=== PATIENT | female | born 1985 | race Caucasian/White ===

== ENCOUNTER 2022-10-12 06:54 | Emergency (ER) | payer BC, SELFPAY ==
[2022-10-12] VITALS (10 sets, daily range): BP systolic 96–152; BP diastolic 59–97; PULSE 75–113; RESP 14–29; TEMP 36.5; O2SAT 99–100; BMI 21.8
--- NOTE | 2022-10-12 07:11 | ECG_ITS ---
The [facility] Test Date: 2022-10-12 Pat Name: JENNIFER SPARKS Department: Room: - Gender: Female [employer]er: : 1985 Requested By: [id number] Order Number: [id number] Reading MD: ALLISON ALMAZAN Measurements Intervals [place] Rate: 84 P: 34 WV: 150 QRS: 26 QRSD: 76 T: 20 QT: 368 QTc: 409 Interpretive Statements 1100 Sinus rhythm 9110 normal ECG No previous ECG available for comparison Electronically Signed On 10-13-2022 7:09:54 EDT by ALLISON ALMAZAN
--- NOTE | 2022-10-12 07:14 | ED.GENADUL1 ---
HPI - General Adult General Chief complaint: Weakness Stated complaint: DEHYDRATION, WEAKNESS Time Seen by Provider: 10/12/22 07:03 Source: patient Source information: patient Mode of arrival: walk-in Limitations: no limitations History of Present Illness HPI narrative: 37-year-old female presented to the emergency department for nausea and generally not feeling well. She recently did a five day detoxification from alcohol. She finished that two days ago and now she is been shaky and nauseous. She feels dehydrated. She is not complaining of any pain or fever or shortness of breath. She's been feeling this way for the last day. Related Data Previous Rx's Medication Instructions Recorded lorazepam 1 mg tablet (Ativan) 1 mg PO Q8H PRN alcohol withdrawal 10/12/22 #14 tabs Allergies Allergy/AdvReac Type Severity Reaction Status Date / Time lisinopril Allergy Intermediate Verified 10/12/22 07:03 Review of Systems ROS Narrative A ten point review of systems is negative except as noted above. PFSH PFSH Social History Smoking status: Former smoker Exam Narrative Exam Narrative: Nurses note and vital signs reviewed and patient is not hypoxic. General: The patient appears well and in no apparent distress. Patient is resting comfortably on cart. Skin: Warm, dry, no pallor noted. There is no rash noted. Head: Normocephalic, atraumatic Eye: Normal conjunctiva, no drainage Ears, Nose, Mouth, and Throat: oral mucosa is moist. Nares patent. Cardiovascular: Regular Rate and Rhythm Respiratory: Patient is in no distress, no accessory muscle use, lungs are clear to auscultation, no wheezing, rales or rhonchi Back: non-tender GI: soft and nontender Musculoskeletal: The patient has no evidence of calf tenderness, no pitting edema, symmetrical pulses noted bilaterally Neurological: A&O x4, normal speech Psychiatric: Cooperative Constitutional Vital Signs - 24 hr 10/12/22 06:58 10/12/22 07:30 10/12/22 07:33 Temperature 97.7 F Pulse Rate 93 H 90 Pulse Rate [Monitor] 113 H Respiratory Rate 18 15 19 Blood Pressure 133/86 H Blood Pressure [Right Arm] 152/97 H Pulse Oximetry 100 99 Oxygen Delivery Method Room Air 10/12/22 07:33 10/12/22 07:33 10/12/22 08:00 Temperature Pulse Rate 84 79 75 Pulse Rate [Monitor] Respiratory Rate 16 20 21 Blood Pressure 133/86 H 98/59 L Blood Pressure [Right Arm] Pulse Oximetry 100 100 100 Oxygen Delivery Method 10/12/22 08:30 10/12/22 08:30 10/12/22 09:00 Temperature Pulse Rate 85 82 93 H Pulse Rate [Monitor] Respiratory Rate 23 29 H 16 Blood Pressure 109/66 109/66 Blood Pressure [Right Arm] Pulse Oximetry 100 99 100 Oxygen Delivery Method 10/12/22 09:06 10/12/22 09:06 Temperature Pulse Rate 85 82 Pulse Rate [Monitor] Respiratory Rate 25 H 14 Blood Pressure 96/78 Blood Pressure [Right Arm] Pulse Oximetry 100 100 Oxygen Delivery Method Course Vital Signs Vital signs: Vital Signs Temperature 97.7 F 10/12/22 06:58 Pulse Rate 113 H 10/12/22 06:58 Respiratory Rate 18 10/12/22 06:58 Blood Pressure 152/97 H 10/12/22 06:58 Pulse Oximetry 100 10/12/22 06:58 Oxygen Delivery Method Room Air 10/12/22 06:58 Temperature 97.7 F 10/12/22 06:58 Pulse Rate 82 10/12/22 09:06 Respiratory Rate 14 10/12/22 09:06 Blood Pressure 96/78 10/12/22 09:06 Pulse Oximetry 100 10/12/22 09:06 Oxygen Delivery Method Room Air 10/12/22 06:58 Medical Decision Making MDM Narrative Medical decision making narrative: the patient is feeling much better now after being given IV fluids and IV Ativan. Differential Diagnosis Differential Diagnosis: alcohol withdrawal, dehydration, electrolyte imbalance, anxiety Lab Data Lab results reviewed: Yes I reviewed the patient's lab results Labs: Lab Results 10/12/22 Range/Units 07:08 WBC 10.2 (4.0-11.0) 10^3/uL RBC 4.03 L (4.20-5.40) 10^6/uL Hgb 13.5 (12.0-16.0) g/dL Hct 39.9 (36.0-48.0) % MCV 99.0 (81.0-99.0) fL MCH 33.5 (26.7-34.0) pg MCHC 33.8 (29.9-35.2) g/dL RDW 11.4 (11.0-15.0) % Plt Count 179 (150-450) 10^3/uL MPV 11.1 (9.5-13.5) fL Neut % (Auto) 67.2 (43.0-75.0) % Lymph % (Auto) 14.9 L (20.5-60.0) % [place] % (Auto) 15.9 H (1.7-12.0) % Eos % (Auto) 0.6 L (0.9-7.0) % Baso % (Auto) 1.0 (0.2-2.0) % Neut # (Auto) 6.9 H (1.4-6.5) 10^3/uL Lymph # (Auto) 1.5 (1.2-3.8) 10^3/uL [place] # (Auto) 1.6 H (0.3-0.8) 10^3/uL Eos # (Auto) 0.1 (0.0-0.7) 10^3/uL Baso # (Auto) 0.1 (0.0-0.1) 10^3/uL Abs Immat Gran (auto) 0.04 H (0.00-0.03) 10^3/uL Imm/Tot Granulo (auto) 0.4 (0.0-0.5) % Sodium 130 L (136-145) mmol/L Potassium 3.8 (3.5-5.1) mmol/L Chloride 95 L (98-107) mmol/L Carbon Dioxide 23.5 (21.0-32.0) mmol/L Anion Gap 15.3 BUN 8.0 (7.0-18.0) mg/dL Creatinine 1.72 H (0.55-1.02) mg/dL Est GFR ( Amer) 40 L (>=60) Est GFR (Non-Af Amer) 33 L (>=60) BUN/Creatinine Ratio 4.7 Glucose 116 H (74-106) mg/dL Calcium 8.8 (8.5-10.1) mg/dL Urine HCG, Qual Negative (NEGATIVE) Discharge Plan Discharge Chief Complaint: Weakness Clinical Impression: Alcohol withdrawal Patient Disposition: Home, Self-Care Time of Disposition Decision: 09:55 Condition: Good Mode of Transportation: Private Vehicle Prescriptions / Home Meds: New lorazepam [Ativan] 1 mg tablet 1 mg PO Q8H PRN (Reason: alcohol withdrawal) Qty: 14 0RF Instructions: Alcohol Withdrawal (ED) Stand Alone Forms: Portal Instructions Referrals: Physician,Non-Staff, MD [Primary Care Provider] - 1 week
[2022-10-12 07:30] LABS: Basophils Absolute Auto 0.1 10^3/uL (0.0-0.1); Eosinophils Absolute Auto 0.1 10^3/uL (0.0-0.7); Eosinophils Percent Auto 0.6 % (0.9-7.0); Hematocrit 39.9 % (36.0-48.0); Hemoglobin 13.5 g/dL (12.0-16.0); Immature Granulocytes Abs Auto 0.04 10^3/uL (0.00-0.03); Immature Granulocytes Pct Auto 0.4 % (0.0-0.5); Lymphocytes Absolute Auto 1.5 10^3/uL (1.2-3.8); Lymphocytes Percent Auto 14.9 % (20.5-60.0); Mean Corpuscular HGB Conc 33.8 g/dL (29.9-35.2); Mean Corpuscular Hemoglobin 33.5 pg (26.7-34.0); Mean Platelet Volume 11.1 fL (9.5-13.5); Monocytes Absolute Auto 1.6 10^3/uL (0.3-0.8); Monocytes Percent Auto 15.9 % (1.7-12.0); Neutrophils Absolute Auto 6.9 10^3/uL (1.4-6.5); Neutrophils Percent Auto 67.2 % (43.0-75.0); Platelet Count 179 10^3/uL (150-450); Red Blood Count 4.03 10^6/uL (4.20-5.40); Red Cell Distribution Width 11.4 % (11.0-15.0); White Blood Count 10.2 10^3/uL (4.0-11.0)
[2022-10-12] MEDS: 0.9 % SODIUM CHLORIDE 1,000 ML 1000 ML IV ×2 (07:43→08:42)
[2022-10-12] MEDS: LORAZEPAM 2 MG/ML 1 ML VIAL 0.5 MG IV (07:44)
[2022-10-12] MEDS: ONDANSETRON PF 4 MG/2 ML VIAL IV (07:44)
[2022-10-12 07:45] LABS: Anion Gap 15.3; BUN Creatinine Ratio 4.7; Calcium 8.8 mg/dL (8.5-10.1); Carbon Dioxide 23.5 mmol/L (21.0-32.0); Chloride 95 mmol/L (98-107); Estimated GFR (African America 40 (>=60); Estimated GFR (Non-African Ame 33 (>=60); Glucose 116 mg/dL (74-106); HCG Qualitative NEGATIVE (NEGATIVE); Potassium 3.8 mmol/L (3.5-5.1); Sodium 130 mmol/L (136-145)
--- NOTE | 2022-10-12 08:33 | CT_ITS ---
The [address] [address] Patient Name: JENNIFER SPARKS MRN: [facility]:[id number] date: 1985 Sex: F Assigned Patient Location: ER Current Patient Location: ER Accession/Order Number: [id number] Exam Date: 10/12/2022 08:45 Report Date: 10/12/2022 09:15 At the request of: LYNETTE MORA Procedure: CT abdomen pelvis w con EXAM: CT abdomen pelvis w con HISTORY: pain COMPARISON: 11/10/2021 TECHNIQUE: Axial CT images were obtained of the abdomen and pelvis with intravenous contrast. Multiplanar reconstructions were performed. ABDOMEN/PELVIS FINDINGS: Lower Chest: Bibasilar atelectasis or scarring is present. Liver: There is a region of relative hypoenhancement surrounding the gallbladder fossa, possibly representing focal fatty infiltration. There is also a punctate hypodense lesion in the left hepatic lobe which is indeterminate. Biliary/Gallbladder: A small gallstone is present in the gallbladder lumen. Pancreas: Unremarkable. Spleen: The spleen is mildly enlarged measuring 13.1 cm. Adrenal Glands: Unremarkable. Kidneys: Unremarkable. Gastrointestinal/Peritoneum: No acute abnormality. The appendix is unremarkable. No free air or free fluid. Vascular: Unremarkable. Lymph Nodes: No enlarged lymph nodes by CT size criteria. Pelvic Organs: An IUD is present. Bladder: Unremarkable. Bones: No acute osseous abnormality. Soft tissues: Unremarkable. IMPRESSION: 1. Region of hypodensity in the liver adjacent to the gallbladder fossa, which most likely represents an area of focal fatty infiltration, however, an underlying lesion is not excluded. Multiphase MRI of the liver should be considered for further assessment on a nonemergent basis. 2. Tiny hypodense lesion in the left hepatic lobe, which is indeterminate, but most likely a small cyst or hemangioma. 3. Small gallstone in the gallbladder lumen. 4. Mild splenomegaly. 5. IUD present. 6. Atelectasis or scarring in the lung bases. Electronically authenticated by: FLETCHER CLARK Date: 10/12/2022 09:15
== END 2022-10-12 10:09 | disposition home or self-care (01) ==
PROVIDERS: Emergency Provider Emergency Medicine
DX: F10.239 Alcohol dependence with withdrawal, unspecified (principal); Z87.891 Personal history of nicotine dependence
CPT/HCPCS: 36415; 74177; 80048; 81003; 84703; 85025; 93005; 96374; 96375; 99285; Q9966

== ENCOUNTER 2022-12-14 23:54 | Emergency (ER) | payer BC, SELFPAY ==
[2022-12-14 23:57] VITALS: BP 190/100; PULSE 116; RESP 16; TEMP 36.7; O2SAT 99; BMI 22.4
--- NOTE | 2022-12-15 00:27 | ED.GENADUL1 ---
HPI - General Adult General Chief complaint: Urogenital-Female Stated complaint: URINARY RENTATION Time Seen by Provider: 12/14/22 23:58 History of Present Illness HPI narrative: patient presents with some dysuria, foul smelling urine and some urinary retention that began a few days ago. She also complains of diffuse right sided abdominal pain. She said that the pain is unlike anything she has had in the past. PMHx includes Crohn's disease - diagnosed without colonoscopy but based on CT findings of colitis on 11/10/21 - and pancreatitis. She is also an alcoholic with admitted chronic, daily intake of 8+ beers. She also has HTN and her BP is elevated tonight. Related Data Previous Rx's Medication Instructions Recorded lorazepam 1 mg tablet (Ativan) 1 mg PO Q8H PRN alcohol withdrawal 10/12/22 #14 tabs hyoscyamine sulfate 0.125 mg 0.125 mg PO Q6H PRN abdominal pain 12/15/22 sublingual tablet (Levsin/SL) #20 tabs ondansetron 4 mg disintegrating 4 mg PO Q6H PRN nausea and 12/15/22 tablet vomiting #20 tabs Allergies Allergy/AdvReac Type Severity Reaction Status Date / Time lisinopril Allergy Intermediate Verified 12/15/22 00:02 PFSH PFS Social History Smoking status: Current every day smoker Exam Narrative Exam Narrative: Nurses notes and vital signs reviewed and patient is not hypoxic. afebrile General: Well-appearing and in no apparent distress. Skin: Warm, dry, no pallor noted. No rash. Head: Normocephalic, atraumatic. Eye: Pupils are equal, round and EOMI. No scleral icterus. Ears, Nose, Mouth, and Throat: Oral mucosa is moist Cardiovascular: Tachycardia. Respiratory: No accessory muscle use or respiratory distress. Lungs are clear to auscultation, no wheezing, rales or rhonchi Back: No CVA tenderness Musculoskeletal: normal ROM, no calf or popliteal tenderness, no lower extremity edema/swelling GI: Abdomen is soft, non-distended. Normal bowel sounds. No masses appreciated. Right sided tenderness to palpation. No rebound, guarding, or rigidity noted. Neurological: A&O x4. No cranial nerve dysfunction observed. No truncal ataxia. Moves all extremities. Sensation intact. Psychiatric: Cooperative and interactive. Normal mood and affect. Constitutional Vital Signs, click to edit/add: Last Vital Signs Temp 98.0 F 12/14/22 23:57 Pulse 116 H 12/14/22 23:57 Resp 16 12/14/22 23:57 BP 123/63 12/15/22 01:31 Pulse Ox 100 12/15/22 01:31 Course Vital Signs Vital signs: Vital Signs Temperature 98.0 F 12/14/22 23:57 Pulse Rate 116 H 12/14/22 23:57 Respiratory Rate 16 12/14/22 23:57 Blood Pressure 190/100 H 12/14/22 23:57 Pulse Oximetry 99 12/14/22 23:57 Temperature 98.0 F 12/14/22 23:57 Pulse Rate 116 H 12/14/22 23:57 Respiratory Rate 16 12/14/22 23:57 Blood Pressure 123/63 12/15/22 01:31 Pulse Oximetry 100 12/15/22 01:31 Medical Decision Making MDM Narrative Medical decision making narrative: peripheral IV established and blood drawn and sent for testing. Urine was also sent obtained and sent for testing. She was given normal saline IV fluid, IV Toradol and IV Zofran. CBC was unremarkable. Urinalysis was negative. CMP notable for potassium 2.9 - she was given oral potassium. Normal Na and renal function, negative LFTs and Lipase. She is concerned that this pain is different from prior abdominal pain. Although she has had numerous prior CT scans at [facility] and two at [facility] within the last 13 months, she was agreeable to get CT scanning due to her concern with this pain being different from past episodes. CT unfortunately did not reveal the cause of her symptoms. No sign of colitis, cholecystitis or ureteral pathology. On recheck at 0200 the patient felt better. She and I discussed results and diagnosis. Discussed the need for her to reduce alcohol intake and try and find a way to quit. Discussed proper nutrition and hydration. She already has a follow up appointment with GI in [place] to get a colonoscopy. She can see her PCP for follow up in the meantime. She was discharged home with prescriptions for Levsin and Zofran. Lab Data Lab results reviewed: Yes I reviewed the patient's lab results Labs: Lab Results 12/15/22 12/15/22 Range/Units 00:07 00:20 WBC 6.7 (4.0-11.0) 10^3/uL RBC 4.43 (4.20-5.40) 10^6/uL Hgb 14.3 (12.0-16.0) g/dL Hct 42.0 (36.0-48.0) % MCV 94.8 (81.0-99.0) fL MCH 32.3 (26.7-34.0) pg MCHC 34.0 (29.9-35.2) g/dL RDW 12.7 (11.0-15.0) % Plt Count 238 (150-450) 10^3/uL MPV 9.3 L (9.5-13.5) fL Neut % (Auto) 47.5 (43.0-75.0) % Lymph % (Auto) 40.7 (20.5-60.0) % [place] % (Auto) 8.0 (1.7-12.0) % Eos % (Auto) 1.3 (0.9-7.0) % Baso % (Auto) 2.2 H (0.2-2.0) % Neut # (Auto) 3.2 (1.4-6.5) 10^3/uL Lymph # (Auto) 2.7 (1.2-3.8) 10^3/uL [place] # (Auto) 0.5 (0.3-0.8) 10^3/uL Eos # (Auto) 0.1 (0.0-0.7) 10^3/uL Baso # (Auto) 0.2 H (0.0-0.1) 10^3/uL Abs Immat Gran (auto) 0.02 (0.00-0.03) 10^3/uL Imm/Tot Granulo (auto) 0.3 (0.0-0.5) % Sodium 143 (136-145) mmol/L Potassium 2.9 L* (3.5-5.1) mmol/L Chloride 107 (98-107) mmol/L Carbon Dioxide 21.7 (21.0-32.0) mmol/L Anion Gap 17.2 BUN 4.0 L (7.0-18.0) mg/dL Creatinine 0.73 (0.55-1.02) mg/dL Est GFR ( Amer) >60 (>=60) Est GFR (Non-Af Amer) >60 (>=60) BUN/Creatinine Ratio 5.5 Glucose 212 H (74-106) mg/dL Calcium 8.7 (8.5-10.1) mg/dL Total Bilirubin 0.4 (0.2-1.0) mg/dL AST 33 (15-37) U/L ALT 8 L (14-59) U/L Alkaline Phosphatase 86 (46-116) U/L Total Protein 7.9 (6.4-8.2) g/dL Albumin 3.4 (3.4-5.0) g/dL Globulin 4.5 g/dL Albumin/Globulin Ratio 0.8 Lipase 42.0 L (73.0-393.0) U/L Urine Color Lt. yellow (YELLOW) Urine Clarity Clear (CLEAR) Urine pH 6.0 (5.0-9.0) Ur Specific [place] <=1.005 A (1.005-1.025) Urine Protein Negative (NEG/TRACE) mg/dL Urine Glucose (UA) Negative (NEGATIVE) mg/dL Urine Ketones Negative (NEGATIVE) mg/dL Urine Occult Blood Negative (NEGATIVE) Urine Nitrite Negative (NEGATIVE) Urine Bilirubin Negative (NEGATIVE) Urine Urobilinogen 0.2 (0.2-1.0) EU/dL Ur Leukocyte Esterase Negative (NEGATIVE) Imaging Data CT scan - abdomen: Radiologist's impression: Patient Name: JENNIFER SPARKS MRN: [id number] date: 1985 Sex: F Assigned Patient Location: Current Patient Location: Accession/Order Number: [id number] Exam Date: 12/15/2022 01:16 Report Date: 12/15/2022 01:51 At the request of: SIGIFREDO HIGGINBOTHAM Procedure: CT abdomen pelvis w con EXAM: CT abdomen pelvis w con HISTORY: right sided abdominal pain . History of Crohn's disease, pancreatitis and hypertension. COMPARISON: CT abdomen pelvis, 10/12/2022. TECHNIQUE: IV contrast enhanced CT imaging of the abdomen and pelvis was performed using 100 mL of Omnipaque 300 intravenous contrast. Sagittal and coronal reconstructions are provided. FINDINGS: CT ABDOMEN: There is mild atelectasis or fibrotic scarring in the lingula. The lung bases are otherwise clear. There is a 2.2 cm sebaceous cyst left of midline in the anterior lower chest wall on image 1 of series 3. Cholelithiasis is noted without cholecystitis or biliary ductal dilatation. The liver is top normal in size but otherwise unremarkable. The pancreas, spleen, adrenal glands, kidneys, aorta, and IVC are unremarkable. There is a small hiatal hernia. The nonenhanced stomach and small bowel are otherwise unremarkable. There is a small midline fat-containing supraumbilical ventral hernia on image 74. CT PELVIS: A normal appendix is seen on image 109. The pelvic small bowel bowel loops, colon, urinary bladder and uterus are unremarkable. An IUD appears to be in appropriate position. No inflammatory fat stranding, free fluid, loculated fluid or free air is seen in the abdomen or pelvis. A very mild lumbar levoscoliosis is noted. No acute osseous abnormality or suspicious bony lesion is seen. IMPRESSION: 1. No acute findings in the abdomen or pelvis. Specifically, no acute pancreatitis or acute exacerbation of Crohn's disease is seen. 2. Cholelithiasis. No acute cholecystitis. No specific cause of right-sided abdominal pain is identified. Electronically authenticated by: MARCO ANTONIO MONTANO Date: 12/15/2022 01:51 Discharge Plan Discharge Chief Complaint: Urogenital-Female Clinical Impression: Abdominal pain Patient Disposition: Home, Self-Care Time of Disposition Decision: 02:07 Prescriptions / Home Meds: New hyoscyamine sulfate [Levsin/SL] 0.125 mg tablet, sublingual 0.125 mg PO Q6H PRN (Reason: abdominal pain) Qty: 20 0RF ondansetron 4 mg tablet,disintegrating 4 mg PO Q6H PRN (Reason: nausea and vomiting) Qty: 20 0RF No Action lorazepam [Ativan] 1 mg tablet 1 mg PO Q8H PRN (Reason: alcohol withdrawal) Qty: 14 0RF Instructions: Abdominal Pain (ED) Stand Alone Forms: Portal Instructions Referrals: Physician,Non-Staff, MD [Primary Care Provider] - 1 week
[2022-12-15 00:31] LABS: Bilirubin Urine NEGATIVE (NEGATIVE); Blood Urine NEGATIVE (NEGATIVE); Clarity Urine CLEAR (CLEAR); Color Urine LT. YELLOW (YELLOW); Glucose Urine UA NEGATIVE (NEGATIVE); Ketones Urine NEGATIVE (NEGATIVE); Leukocyte Esterase Urine NEGATIVE (NEGATIVE); Nitrite Urine NEGATIVE (NEGATIVE); Protein Urine NEGATIVE (NEG/TRACE); Specific Gravity Urine <=1.005 (1.005-1.025); Urobilinogen Urine 0.2 EU/dL (0.2-1.0)
[2022-12-15 00:32] LABS: Basophils Absolute Auto 0.2 10^3/uL (0.0-0.1); Basophils Percent Auto 2.2 % (0.2-2.0); Eosinophils Absolute Auto 0.1 10^3/uL (0.0-0.7); Eosinophils Percent Auto 1.3 % (0.9-7.0); Hemoglobin 14.3 g/dL (12.0-16.0); Immature Granulocytes Abs Auto 0.02 10^3/uL (0.00-0.03); Immature Granulocytes Pct Auto 0.3 % (0.0-0.5); Lymphocytes Absolute Auto 2.7 10^3/uL (1.2-3.8); Lymphocytes Percent Auto 40.7 % (20.5-60.0); Mean Corpuscular Hemoglobin 32.3 pg (26.7-34.0); Mean Corpuscular Volume 94.8 fL (81.0-99.0); Mean Platelet Volume 9.3 fL (9.5-13.5); Monocytes Absolute Auto 0.5 10^3/uL (0.3-0.8); Neutrophils Absolute Auto 3.2 10^3/uL (1.4-6.5); Neutrophils Percent Auto 47.5 % (43.0-75.0); Platelet Count 238 10^3/uL (150-450); Red Blood Count 4.43 10^6/uL (4.20-5.40); Red Cell Distribution Width 12.7 % (11.0-15.0); White Blood Count 6.7 10^3/uL (4.0-11.0)
[2022-12-15 00:32] LABS: Urine Microscopic Indicated NO
[2022-12-15] MEDS: 0.9 % SODIUM CHLORIDE 1,000 ML 999 ML IV (00:32)
[2022-12-15] MEDS: KETOROLAC TROMETHAMINE 30 MG/ML VIAL IVP (00:32)
[2022-12-15 00:35] VITALS: BP 135/88
[2022-12-15 00:45] VITALS: BP 139/83; O2SAT 98
[2022-12-15 00:48] LABS: Alanine Aminotransferase 8 U/L (14-59); Albumin Globulin Ratio 0.8; Albumin Level 3.4 g/dL (3.4-5.0); Alkaline Phosphatase 86 U/L (46-116); Anion Gap 17.2; Aspartate Amino Transferase 33 U/L (15-37); BUN Creatinine Ratio 5.5; Bilirubin Total 0.4 mg/dL (0.2-1.0); Calcium 8.7 mg/dL (8.5-10.1); Carbon Dioxide 21.7 mmol/L (21.0-32.0); Chloride 107 mmol/L (98-107); Estimated GFR (African America >60 (>=60); Estimated GFR (Non-African Ame >60 (>=60); Globulin 4.5 g/dL; Glucose 212 mg/dL (74-106); Sodium 143 mmol/L (136-145); Total Protein 7.9 g/dL (6.4-8.2)
[2022-12-15 00:50] VITALS: O2SAT 100
[2022-12-15 00:50] LABS: Potassium 2.9 mmol/L (3.5-5.1)
--- NOTE | 2022-12-15 00:52 | CT_ITS ---
The [address] [address] Patient Name: JENNIFER SPARKS MRN: [id number] date: 1985 Sex: F Assigned Patient Location: ER Current Patient Location: ER Accession/Order Number: [id number] Exam Date: 12/15/2022 01:16 Report Date: 12/15/2022 01:51 At the request of: SIGIFREDO HIGGINBOTHAM Procedure: CT abdomen pelvis w con EXAM: CT abdomen pelvis w con HISTORY: right sided abdominal pain . History of Crohn's disease, pancreatitis and hypertension. COMPARISON: CT abdomen pelvis, 10/12/2022. TECHNIQUE: IV contrast enhanced CT imaging of the abdomen and pelvis was performed using 100 mL of Omnipaque 300 intravenous contrast. Sagittal and coronal reconstructions are provided. FINDINGS: CT ABDOMEN: There is mild atelectasis or fibrotic scarring in the lingula. The lung bases are otherwise clear. There is a 2.2 cm sebaceous cyst left of midline in the anterior lower chest wall on image 1 of series 3. Cholelithiasis is noted without cholecystitis or biliary ductal dilatation. The liver is top normal in size but otherwise unremarkable. The pancreas, spleen, adrenal glands, kidneys, aorta, and IVC are unremarkable. There is a small hiatal hernia. The nonenhanced stomach and small bowel are otherwise unremarkable. There is a small midline fat-containing supraumbilical ventral hernia on image 74. CT PELVIS: A normal appendix is seen on image 109. The pelvic small bowel bowel loops, colon, urinary bladder and uterus are unremarkable. An IUD appears to be in appropriate position. No inflammatory fat stranding, free fluid, loculated fluid or free air is seen in the abdomen or pelvis. A very mild lumbar levoscoliosis is noted. No acute osseous abnormality or suspicious bony lesion is seen. CT/CT abdomen pelvis w con IMPRESSION: 1. No acute findings in the abdomen or pelvis. Specifically, no acute pancreatitis or acute exacerbation of Crohn's disease is seen. 2. Cholelithiasis. No acute cholecystitis. No specific cause of right-sided abdominal pain is identified. Electronically authenticated by: MARCO ANTONIO MONTANO Date: 12/15/2022 01:51
[2022-12-15 01:00] VITALS: BP 133/72; O2SAT 99
[2022-12-15 01:31] VITALS: BP 123/63; O2SAT 100
== END 2022-12-15 02:23 | disposition home or self-care (01) ==
PROVIDERS: Emergency Provider Emergency Medicine
DX: R10.9 Unspecified abdominal pain (principal); I10 Essential (primary) hypertension; F10.20 Alcohol dependence, uncomplicated; F17.210 Nicotine dependence, cigarettes, uncomplicated
CPT/HCPCS: 36415; 74177; 80053; 81003; 83690; 85025; 96374; 99285; Q9967

== ENCOUNTER 2023-08-17 08:43 | Observation (INO) | payer BC, SELFPAY ==
[2023-08-17] VITALS (62 sets, daily range): BP systolic 84–200; BP diastolic 59–124; PULSE 61–102; TEMP 36.6–37.1; O2SAT 83–100; BMI 22.9; BMI 22.4
--- NOTE | 2023-08-17 08:59 | ED.GENADUL1 ---
HPI HPI - General Adult General Chief complaint: Alcohol Stated complaint: SHAKING, VOMITING , DIARRHEA Time Seen by Provider: 08/17/23 08:56 Source: patient Mode of arrival: walk-in History of Present Illness HPI narrative: Patient is a 38-year-old female who is presenting to the ER today with chief complaint of wanting help for alcohol dependence. Patient states she was up through the night with multiple episodes of nausea, vomiting, diarrhea. Patient states for 15 years or more, she has been drinking heavy liquor daily. Last several weeks she has been drinking 1 or 2 bottles of cheap gas station vodka and several beers. Patient states that she vapes, she does not do any illicit drugs. Patient lives at home with her , patient currently works at a [employer]. 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 Patient is not suicidal homicidal. Patient has been trying to wean herself down from alcohol dependence and addiction in the last week with drinking less, trying to only drink 1 beer an hour, the patient has been coming more sick in the last several days. Patient says she is up most the night with intermit abdominal occurring, nausea and vomiting. Patient does have a history of hypertension. Patient has no other cardiac history with stents. Patient takes medication for bipolar as well. Patient is compliant with her medication. Patient has no severe headache, states that she was brought to the ER and dropped off by her mother. Patient has been in detox to a health department and in [place] previously, and did not have a good experience there. Patient is saying several times that she does not want to go to rehab, they are scary places. When asked patient what her goal was the visit for the ER today, she stated that she just wants help patient states that she has an IUD, not concerned about . Patient admits to having 6 beers this morning. Patient has no history of cirrhosis or alcoholic hepatitis that she is aware of yet. All systems are negative except as noted/marked. All systems reviewed and otherwise negative. Nurses note and vital signs reviewed and patient is not hypoxic. General: The patient appears mild distress secondary to alcohol withdrawal. Patient is resting uncomfortably on cart. Patient is not toxic, lethargic, or listless. Patient is tearful Skin: Warm, dry, no pallor noted. There is no rash noted. No petechiae, purpura. Head: Normocephalic, atraumatic Eye: Normal conjunctiva, no drainage, EOMI. PERRL Ears, Nose, Mouth, and Throat: oral mucosa is moist. Nares patent. Mouth without vesicles. Cardiovascular: Regular Rate and Rhythm, no murmur, gallop, rub Respiratory: Patient is in no distress, no accessory muscle use, lungs are clear to auscultation, no wheezing, rales or rhonchi Back: non-tender, no CVA tenderness bilaterally to percussion. No CT LS midline pain GI: no tenderness to palpation, no masses appreciated. No rebound, guarding, or rigidity noted. No distention Musculoskeletal: Patient has full range of motion of all of the extremities, no motor, sensory, or focal neurological deficits Neurological: A&O x4, normal speech Psychiatric: Cooperative Related Data Home Medications ?Medication ?Instructions ?Recorded ?Confirmed amlodipine 5 mg tablet 5 mg PO DAILY 08/17/23 08/17/23 carbamazepine 200 mg tablet 200 mg PO BID 08/17/23 08/17/23 levothyroxine 50 mcg tablet 50 mcg PO DAILY 08/17/23 08/17/23 losartan 25 mg tablet 25 mg PO DAILY 08/17/23 08/17/23 metformin 500 mg tablet 500 mg PO DAILY 08/17/23 08/17/23 omeprazole 40 mg capsule,delayed 40 mg PO DAILY 08/17/23 08/17/23 release paliperidone 3 mg tablet,extended mg PO 08/17/23 release 24 hr paliperidone 6 mg tablet,extended 6 mg PO DAILY 08/17/23 08/17/23 release 24 hr quetiapine 25 mg tablet 25 mg PO DAILY 08/17/23 08/17/23 Previous Rx's ?Medication ?Instructions ?Recorded lorazepam 1 mg tablet (Ativan) 1 mg PO Q8H PRN alcohol withdrawal 10/12/22 #14 tabs hyoscyamine sulfate 0.125 mg 0.125 mg PO Q6H PRN abdominal pain 12/15/22 sublingual tablet (Levsin/SL) #20 tabs ondansetron 4 mg disintegrating 4 mg PO Q6H PRN nausea and 12/15/22 tablet vomiting #20 tabs Allergies Allergy/AdvReac Type Severity Reaction Status Date / Time lisinopril Allergy Intermediate Verified 08/17/23 10:08 Opioid HPI Opioid Management Most Recent Opioid Data: Last Pain Scale 8 08/17/23 11:54 Last MAR Pain Assessment 08/17/23 11:54 [facility] Medical History (Updated 08/17/23 @ 10:45 by Jovon Watson MD) Pancreatitis ?K85.90 - Acute pancreatitis without necrosis or infection, unspecified (ICD-10) Social History Smoking status: Current every day smoker Exam Constitutional Vital Signs, click to edit/add: Last Vital Signs Temp 97.9 F 08/17/23 08:47 Pulse 78 08/17/23 12:00 Resp 27 H 08/17/23 12:00 BP 126/93 H 08/17/23 11:30 Pulse Ox 100 08/17/23 08:47 O2 Del Method Room Air 08/17/23 08:47 Course Vital Signs Vital signs: Vital Signs Temperature 97.9 F 08/17/23 08:47 Pulse Rate 98 H 08/17/23 08:47 Respiratory Rate 20 08/17/23 08:47 Blood Pressure 200/124 H 08/17/23 08:47 Pulse Oximetry 100 08/17/23 08:47 Oxygen Delivery Method Room Air 08/17/23 08:47 Temperature 97.9 F 08/17/23 08:47 Pulse Rate 78 08/17/23 12:00 Respiratory Rate 27 H 08/17/23 12:00 Blood Pressure 126/93 H 08/17/23 11:30 Pulse Oximetry 100 08/17/23 08:47 Oxygen Delivery Method Room Air 08/17/23 08:47 Medical Decision Making MDM Narrative Medical decision making narrative: [facility] oncology social work came to see and evaluate the patient in the ER. She was done here for approximately 1 hour. She was very helpful, try to get patient into a rehab/detox facility in [place] that can see her at 2:00 for intake. Patient is been talking to them on the phone for intake as well. 1000 We received a phone call from the lab, stating that they were going to rerun some of patient's lab work secondary to some levels being low. 1040 patient initial reports with a potassium of 4.0, sodium of 120. Patient is chloride was low as well, they are rerunning patient's chemistries to verify. Patient is feeling better with medication given. Patient will be given a second liter of normal saline. [address] Cheung, patient will be inpatient admission for hyponatremia, alcohol dependence, alcohol level was 0.213. Patient has never had any type of withdrawal from alcohol. Patient has drink for approximately 15 years. Patient chloride was low as well, 83. Patient is very thankful for help. Please see consultation note from social work Guerita. Critical care time 35 minutes exclusive from separate billable procedures that were performed. The following was considered in the determination of critical care but not limited to the level of medical decision making, intensive cardiac and/or respiratory monitoring, frequent vital sign monitoring, evaluation of laboratory studies, evaluation of radiographic studies, oxygen monitoring, and constant monitoring and speaking to family at bedside Lab Data Lab results reviewed: Yes I reviewed the patient's lab results Labs: Lab Results 08/17/23 08/17/23 Range/Units 09:05 10:03 WBC 3.8 L (4.0-11.0) 10^3/uL RBC 3.95 L (4.20-5.40) 10^6/uL Hgb 13.0 (12.0-16.0) g/dL Hct 36.2 (36.0-48.0) % MCV 91.6 (81.0-99.0) fL MCH 32.9 (26.7-34.0) pg MCHC 35.9 H (29.9-35.2) g/dL RDW 12.1 (11.0-15.0) % Plt Count 172 (150-450) 10^3/uL MPV 8.4 L (9.5-13.5) fL Neut % (Auto) 49.3 (43.0-75.0) % Lymph % (Auto) 33.4 (20.5-60.0) % Frio % (Auto) 13.8 H (1.7-12.0) % Eos % (Auto) 1.1 (0.9-7.0) % Baso % (Auto) 1.9 (0.2-2.0) % Neut # (Auto) 1.9 (1.4-6.5) 10^3/uL Lymph # (Auto) 1.3 (1.2-3.8) 10^3/uL Frio # (Auto) 0.5 (0.3-0.8) 10^3/uL Eos # (Auto) 0.0 (0.0-0.7) 10^3/uL Baso # (Auto) 0.1 (0.0-0.1) 10^3/uL Abs Immat Gran (auto) 0.02 (0.00-0.03) 10^3/uL Imm/Tot Granulo (auto) 0.5 (0.0-0.5) % PT 11.4 (9.0-11.6) sec INR 1.08 Sodium 121 L* (136-145) mmol/L Potassium 4.0 (3.5-5.1) mmol/L Chloride 83 L* (98-107) mmol/L Carbon Dioxide 24.7 (21.0-32.0) mmol/L Anion Gap 17.3 BUN 3.0 L (7.0-18.0) mg/dL Creatinine 0.35 L (0.55-1.02) mg/dL Est GFR ( Amer) >60 (>=60) Est GFR (Non-Af Amer) >60 (>=60) BUN/Creatinine Ratio 8.6 Glucose 123 H (74-106) mg/dL Calcium 9.3 (8.5-10.1) mg/dL Magnesium 1.6 L (1.8-2.4) mg/dL Total Bilirubin 0.8 (0.2-1.0) mg/dL AST 74 H (15-37) U/L ALT 38 (14-59) U/L Alkaline Phosphatase 97 (46-116) U/L Total Protein 7.9 (6.4-8.2) g/dL Albumin 4.3 (3.4-5.0) g/dL Globulin 3.6 g/dL Albumin/Globulin Ratio 1.2 Lipase 19.0 (16.0-77.0) U/L Ethanol Quant 213 mg/dL POC Glucose 104 (74-106) mg/dL ECG Data Attestation: I personally reviewed and interpreted this ECG as follows: (EKG interpretation. Normal sinus rhythm at 78 beats a minute. Normal axis deviation. No acute ST elevation, no acute ectopy. QTc of 429.) Discharge Plan Discharge Chief Complaint: Alcohol Clinical Impression: Alcohol withdrawal, Alcoholic intoxication, Hyponatremia, Nausea & vomiting Patient Disposition: Admitted As Inpatient Time of Disposition Decision: 12:15 Condition: Fair
--- NOTE | 2023-08-17 09:11 | ECG_ITS ---
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
--- NOTE | 2023-08-17 09:12 | XR_ITS ---
The [address] [address] Patient Name: JENNIFER SPARKS MRN: [id number] date: 1985 Sex: F Assigned Patient Location: ED.MAIN Current Patient Location: ER Accession/Order Number: [id number] Exam Date: 08/17/2023 10:10 Report Date: 08/17/2023 10:36 At the request of: JADE WHATLEY Procedure: XR chest 1V EXAMINATION: XR chest 1V HISTORY: hypertension , nausea, vomiting, diarrhea, dizziness EXAMINATION: XR chest 1V COMPARISON: No relevant comparison available. FINDINGS: LUNGS: No significant pulmonary parenchymal abnormalities. VASCULATURE: No increased pulmonary vasculature. PLEURA: No pneumothorax, effusion, or pleural thickening. CARDIAC: No cardiomegaly or cardiac silhouette abnormality. MEDIASTINUM: No visible mass or adenopathy. BONES: No fracture or visible bone lesion. OTHER: Negative. XR/XR chest 1V IMPRESSION: 1. No acute cardiopulmonary process. Electronically authenticated by: LULA MEJÍA Date: 08/17/2023 10:36
[2023-08-17 09:26] LABS: Basophils Absolute Auto 0.1 10^3/uL (0.0-0.1); Basophils Percent Auto 1.9 % (0.2-2.0); Eosinophils Percent Auto 1.1 % (0.9-7.0); Hematocrit 36.2 % (36.0-48.0); Immature Granulocytes Abs Auto 0.02 10^3/uL (0.00-0.03); Immature Granulocytes Pct Auto 0.5 % (0.0-0.5); Lymphocytes Absolute Auto 1.3 10^3/uL (1.2-3.8); Lymphocytes Percent Auto 33.4 % (20.5-60.0); Mean Corpuscular HGB Conc 35.9 g/dL (29.9-35.2); Mean Corpuscular Hemoglobin 32.9 pg (26.7-34.0); Mean Corpuscular Volume 91.6 fL (81.0-99.0); Mean Platelet Volume 8.4 fL (9.5-13.5); Monocytes Absolute Auto 0.5 10^3/uL (0.3-0.8); Monocytes Percent Auto 13.8 % (1.7-12.0); Neutrophils Absolute Auto 1.9 10^3/uL (1.4-6.5); Neutrophils Percent Auto 49.3 % (43.0-75.0); Platelet Count 172 10^3/uL (150-450); Red Blood Count 3.95 10^6/uL (4.20-5.40); Red Cell Distribution Width 12.1 % (11.0-15.0); White Blood Count 3.8 10^3/uL (4.0-11.0)
[2023-08-17] MEDS: 0.9 % SODIUM CHLORIDE 1,000 ML 999 ML IV (09:36)
[2023-08-17] MEDS: ONDANSETRON PF 4 MG/2 ML VIAL IV ×2 (09:37→15:29)
[2023-08-17 09:40] LABS: INR 1.08; Prothrombin Time 11.4 sec (9.0-11.6)
[2023-08-17] MEDS: LORAZEPAM 2 MG/ML VIAL 1 MG IV (09:40)
[2023-08-17] MEDS: MULTIVITAMIN TABLET 1 TAB PO (09:42)
[2023-08-17] MEDS: THIAMINE MONONITRATE (VIT B1) 100 MG TABLET PO (09:42)
[2023-08-17] MEDS: CHLORDIAZEPOXIDE 10 MG PO (09:42)
[2023-08-17 10:05] LABS: Glucometer 104 mg/dL (74-106)
--- NOTE | 2023-08-17 10:25 | SWNOTE1 ---
DAISY received call from engineering secretary in ED and Dr. Watson would SW to come see pt in regards to alcohol resources, inpt/outpt. SW spoke with nursing and Dr. Watson. Pt has been to inpt detox in [facility] and does not want to return. Open to other resources. SW met with pt to discuss dc needs. Pt has a 6 year old son and 21 year old son. She voiced her mom brought her in today. She is here because she wants to get better and because of her 6 year old son. She is at home with her . Pt's last drink was this morning, beer, and she had 5 or 6 of them. Pt has been battling alcohol addiction for quite awhile. She was sober for about a month and then she had a drink on and has been drinking ever since. Pt was tearful throughout the conversation. She voiced she is just ready to get better, she always tells herself this is the last one or that she is going to stop. 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 SW encouraged pt that she is making the right decision by coming to hospital and that hospital is here to help. SW and pt spoke about various options, inpatient and outpt. Pt voiced she does not want to go inpatient anywhere due to her child and due to bad experiences. SW and pt spoke about [facility] in [place] and SW was able to pull up the [facility] website on the computer in the room. Pt and SW looked over the website and pt is agreeable to at least make an appointment for today, she is aware that it is a 3 hour process for the initial assessment at [facility]. SW and pt called and spoke with intake, initially SW answered questions via phone as nursing was in room assisting pt. Pt then answered the other questions with intake. Pt was able to set up an appointment for 2:00 today. SW advised pt that we will be able to set up transport if she is not able to find a ride. Pt assured SW that someone will be able to pick her up after assessment. Pt is alright with SW setting up transport. SW called trips and they are not able to get her there at 1:45. SW let pt know. As SW and pt were talking about transport, Dr. Watson came in room and let pt know some of her labs were off and he has to wait for further results before he is able to medically clear her for discharge. He did discuss possibility of pt being admitted to floor. She voiced understanding. SW to come back down once we know if she is being dc or admitted.
[2023-08-17] MEDS: 0.9 % SODIUM CHLORIDE 1,000 ML 1000 ML IV (11:01)
[2023-08-17 11:05] LABS: Sodium 121 mmol/L (136-145)
[2023-08-17 11:06] LABS: Anion Gap 17.3; Carbon Dioxide 24.7 mmol/L (21.0-32.0); Chloride 83 mmol/L (98-107); Glucose 123 mg/dL (74-106)
[2023-08-17 11:07] LABS: BUN Creatinine Ratio 8.6; Estimated GFR (African America >60 (>=60); Estimated GFR (Non-African Ame >60 (>=60)
[2023-08-17 11:08] LABS: Aspartate Amino Transferase 74 U/L (15-37); Bilirubin Total 0.8 mg/dL (0.2-1.0); Calcium 9.3 mg/dL (8.5-10.1); Magnesium 1.6 mg/dL (1.8-2.4)
[2023-08-17 11:09] LABS: Alanine Aminotransferase 38 U/L (14-59); Albumin Globulin Ratio 1.2; Albumin Level 4.3 g/dL (3.4-5.0); Alkaline Phosphatase 97 U/L (46-116); Globulin 3.6 g/dL; Total Protein 7.9 g/dL (6.4-8.2)
[2023-08-17 11:10] LABS: Ethanol 213 mg/dL
[2023-08-17] MEDS: ACETAMINOPHEN 500 MG TABLET 1000 MG PO (11:23)
[2023-08-17] MEDS: KETOROLAC TROMETHAMINE 30 MG/ML VIAL 15 MG IVP (11:54)
[2023-08-17] MEDS: PROCHLORPERAZINE 10 MG/2 ML VIAL IV (11:55)
[2023-08-17] MEDS: 0.9 % SODIUM CHLORIDE 1,000 ML 150 ML IV (12:28)
[2023-08-17 12:37] LABS: Ketones Urine NEGATIVE (NEGATIVE)
[2023-08-17 12:51] LABS: Amphetamine Screen Urine NEGATIVE (NEGATIVE); Barbiturates Screen Urine NEGATIVE (NEGATIVE); Benzodiazepines Screen Urine NEGATIVE (NEGATIVE); Buprenorphine Screen Urine NEGATIVE (NEGATIVE); Cannabinoid Screen Urine NEGATIVE (NEGATIVE); Cocaine Screen Urine NEGATIVE (NEGATIVE); Methadone Screen Urine NEGATIVE (NEGATIVE); Methamphetamines Screen Urine NEGATIVE (NEGATIVE); Opiate Screen Urine NEGATIVE (NEGATIVE); Oxycodone Screen Urine NEGATIVE (NEGATIVE); Phencyclidine Screen Urine NEGATIVE (NEGATIVE); Tricyclic Antidepressant Urine NEGATIVE (NEGATIVE)
[2023-08-17 13:17] LABS: Anion Gap 18.5; BUN Creatinine Ratio 4.2; Calcium 8.6 mg/dL (8.5-10.1); Carbon Dioxide 21.3 mmol/L (21.0-32.0); Chloride 93 mmol/L (98-107); Estimated GFR (African America >60 (>=60); Estimated GFR (Non-African Ame >60 (>=60); Glucose 73 mg/dL (74-106); Potassium 3.8 mmol/L (3.5-5.1); Sodium 129 mmol/L (136-145)
[2023-08-17] MEDS: LORAZEPAM 1 MG TABLET PO (13:32)
[2023-08-17 13:33] LABS: Thyroid Stimulating Hormone 2.956 uIU/mL (0.358-3.740)
--- NOTE | 2023-08-17 14:37 | P.HP_ITS ---
HPI H&P: HPI History of Present Illness Chief complaint: SHAKING, VOMITING , DIARRHEA, HYPONATREMIA Narrative: 38-year-old female with a history of severe alcohol dependence/alcohol use disorder came in earlier today for headache, tremors, nausea, vomiting after she was attempting to wean herself off of alcohol. Patient is a heavy drinker and drinks about a bottle of vodka daily. Last alcohol use was earlier today and she drank some beer. She was previously sober for a few months but unfortunately relapsed. Patient is currently complaining of headache, nausea, palpitations, anxiety, tremors and excessive sweating. Her CIWA score currently is about 13 She was initially accepted to local detox/rehab facility but her ER workup indicated serum sodium of 121 for which she was admitted to stepdown unit. Patient requires inpatient monitoring/treatment of her current presentation because of her severe hyponatremia that cannot be corrected within 24 hours because of risk of central pontine myelinosis. I ordered repeat basic metabolic panel that showed serum sodium of 129 which is an overcorrection. I stopped her IV fluids. She will need close monitoring in ICU for alcohol withdrawal and neurological status because of severe hyponatremia. She has a scheduled dose of oral Ativan along with p.o. Ativan and IV Ativan as needed. She was asking me if she could get anything other than Ativan because she felt her symptoms were poorly controlled on it. I added clonidine as needed for autonomic dysfunction. Opioid HPI Opioid Management Most Recent Opioid Data: Last Pain Scale 8 08/17/23 11:54 Last MAR Pain Assessment 08/17/23 11:54 Last ORT Total Score 6 08/17/23 12:51 Last ORT Risk Category Moderate Risk 08/17/23 12:51 Ur Phencyclidine Scrn Negative (NEGATIVE) 08/17/23 12:12 Review of Systems ROS Status of ROS 10 or more systems reviewed and unremark able except as noted in history and below [facility] Medical History (Updated 08/17/23 @ 14:52 by Shaikh Jonatan MD) Hypothyroidism ?E03.9 - Hypothyroidism, unspecified (ICD-10) Type 2 diabetes mellitus ?E11.9 - Type 2 diabetes mellitus without complications (ICD-10) Bipolar 1 disorder ?F31.9 - Bipolar disorder, unspecified (ICD-10) HTN (hypertension) ?I10 - Essential (primary) hypertension (ICD-10) Pancreatitis ?K85.90 - Acute pancreatitis without necrosis or infection, unspecified (ICD- 10) Social History (Updated 08/17/23 @ 13:08 by Nicol Raman) Within the past year, how often did you have a drink containing alcohol: 4 or more times a week Within the past year, how many standard drinks containing alcohol did you have on a typical day: 7 to 9 Within the past year, how often did you have six or more drinks on one occasion: daily or almost daily Total score: 10 Score interpretation: A score of 3 or more indicates drinking is likely to affect patient's safety. Smoking status: Current every day smoker Do you use any of these nicotine containing products: vaping products Non-prescribed substance use: denies use Highest level of school completed/degree received: high school graduate Meds Home Medications and Allergies Home Medications ?Medication ?Instructions ?Recorded ?Confirmed ?Type amlodipine 5 mg tablet 5 mg PO DAILY 08/17/23 08/17/23 History carbamazepine 200 mg tablet 200 mg PO BID 08/17/23 08/17/23 History levothyroxine 50 mcg tablet 50 mcg PO DAILY 08/17/23 08/17/23 History losartan 25 mg tablet 25 mg PO DAILY 08/17/23 08/17/23 History metformin 500 mg tablet,extended 1,000 mg PO BIDWM 08/17/23 08/17/23 History release 24 hr omeprazole 40 mg capsule,delayed 40 mg PO DAILY 08/17/23 08/17/23 History release paliperidone 6 mg tablet,extended 6 mg PO DAILY 08/17/23 08/17/23 History release 24 hr quetiapine 25 mg tablet 25 mg PO DAILY 08/17/23 08/17/23 History topiramate 25 mg tablet 25 mg PO TID 08/17/23 08/17/23 History Allergies Allergy/AdvReac Type Severity Reaction Status Date / Time lisinopril Allergy Intermediate Verified 08/17/23 10:08 Exam Constitutional Vital Signs, click to edit/add: Last Vital Signs Temp 98.1 F 08/17/23 12:51 Pulse 81 08/17/23 12:51 Resp 16 08/17/23 12:51 BP 146/96 H 08/17/23 12:51 Pulse Ox 100 08/17/23 12:51 O2 Del Method Room Air 08/17/23 12:51 Documenting provider has reviewed patient's vital signs: yes Common normals: oriented x3 General appearance: anxious, disheveled and ill appearing HENMT Common normals: normocephalic and head/scalp atraumatic Respiratory Common normals: normal respiratory effort and clear to auscultation bilaterally Effort & inspection: able to speak in complete sentences Cardio Common normals: regular rate, regular rhythm, S1 normal heart sound and S2 normal heart sound GI Common normals: Normal to inspection, nondistended, normoactive bowel sounds present, soft to palpation and non-tender Extremity Common normals: no clubbing, cyanosis or edema Neuro Common normals: oriented x3, moves all extremities, no focal motor deficits and no sensory deficits noted Psych Common normals: mental status grossly normal, denies homicidal ideation and denies suicidal ideation Other: CIWA score abut 13 Results Labs Labs: Short CBC 08/17/23 Range/Units 09:05 WBC 3.8 L (4.0-11.0) 10^3/uL Hgb 13.0 (12.0-16.0) g/dL Hct 36.2 (36.0-48.0) % Plt Count 172 (150-450) 10^3/uL BMP 08/17/23 08/17/23 09:05 13:03 Sodium 121 L* 129 L Potassium 4.0 3.8 Chloride 83 L* 93 L Carbon Dioxide 24.7 21.3 BUN 3.0 L 2.0 L Creatinine 0.35 L 0.48 L Glucose 123 H 73 L Calcium 9.3 8.6 Liver Function 08/17/23 Range/Units 09:05 Total Bilirubin 0.8 (0.2-1.0) mg/dL AST 74 H (15-37) U/L ALT 38 (14-59) U/L Alkaline Phosphatase 97 (46-116) U/L Albumin 4.3 (3.4-5.0) g/dL Assessment and Plan Assessment and Plan (1) Hyponatremia: Assessment and Plan: Patient presented with severe hyponatremia with serum sodium of 121. This is likely because of excessive alcohol intake. However she is also on carbamazepine. Her serum sodium was overcorrected and last serum sodium was 129. I stopped IV fluids. She will need close hemodynamic monitoring and neurological monitoring. Ordered urine sodium, urine creatinine and urine osmolarity. She also has a history of hypothyroidism so I ordered a TSH. Her carbamazepine is on hold for now. (2) Alcohol withdrawal: Assessment and Plan: Patient's last drink was earlier this morning. However she is demonstrating early signs of alcohol withdrawal. She is on combination of oral and IV benzodiazepines for alcohol withdrawal. She is also on oral clonidine as needed for autonomic dysfunction Qualifiers: Complication of substance-induced condition: with perceptual disturbance Qualified Code(s): F10.932 - Alcohol use, unspecified with withdrawal with perceptual disturbance (3) Alcoholic intoxication: Assessment and Plan: Initially presented with alcohol intoxication. Now exhibiting signs and symptoms of alcohol withdrawal. Patient counseled on cessation and risk of excessive drinking Qualifiers: Complication of substance-induced condition: with delirium Qualified Code(s): F10.921 - Alcohol use, unspecified with intoxication delirium (4) Nausea & vomiting: Assessment and Plan: She is a still nauseous but not throwing up anymore. Likely because of alcohol withdrawal. Qualifiers: Vomiting type: unspecified Qualified Code(s): R11.2 - Nausea with vomiting, unspecified (5) HTN (hypertension): Assessment and Plan: Blood pressure was significantly elevated upon arrival. Well-controlled now. Continue with oral medications. Qualifiers: Hypertension type: primary hypertension Qualified Code(s): I10 - Essential (primary) hypertension (6) Bipolar 1 disorder: Assessment and Plan: resume patient's home medication except for carbamazepine because of hyponatremia (7) Type 2 diabetes mellitus: Assessment and Plan: No oral metformin as outpatient. 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 Check TSH. Qualifiers: Hypothyroidism type: unspecified Qualified Code(s): E03.9 - Hypothyroidism, unspecified
--- NOTE | 2023-08-17 15:26 | SWNOTE1 ---
SW stopped in to speak with pt in ICU, pt was admitted. Pt voiced she is not feeling well at all. She sated she ate something and that did not help. SW and pt spoke about re-scheduling her apt for early next week. Pt is willing to schedule appointment for Sunday anytime after 9:00am.
[2023-08-17] MEDS: CLONIDINE HCL 0.2 MG TABLET 0.100000000000000006 MG PO (15:29)
[2023-08-17] MEDS: LORAZEPAM 2 MG/ML VIAL IV ×2 (15:29→20:21)
[2023-08-17] MEDS: ENOXAPARIN SODIUM 40 MG/0.4 ML SYRINGE SUBQ (16:22)
--- NOTE | 2023-08-17 16:23 | SWNOTE1 ---
DAISY called [facility] and took down pt's information and was going to check to see if they could re-schedule and call SW back before 4:30. DAISY called again at 4:20 and they [facility] stated since they do not have a release of information on file, pt will have to call back herself. DAISY gave pt the number for [facility] and updated pt and nurse.
--- NOTE | 2023-08-17 16:27 | SWNOTE1 ---
DAISY updated nurse and advised to have pt call [facility] tomorrow to schedule apt for Sunday. Pt was sleeping, [facility]
[2023-08-17] MEDS: LORAZEPAM 1 MG TABLET 2 MG PO ×2 (18:16→22:55)
[2023-08-17 18:28] LABS: Anion Gap 16.9; BUN Creatinine Ratio 4.3; Calcium 9.2 mg/dL (8.5-10.1); Chloride 96 mmol/L (98-107); Estimated GFR (African America >60 (>=60); Estimated GFR (Non-African Ame >60 (>=60); Glucose 97 mg/dL (74-106); Potassium 4.9 mmol/L (3.5-5.1); Sodium 130 mmol/L (136-145)
[2023-08-17 20:15] LABS: Glucometer 96 mg/dL (74-106)
[2023-08-17] MEDS: LACTATED RINGER'S SOLUTION 1,000 ML 125 ML IV (22:52)
[2023-08-17] MEDS: TOPIRAMATE 25 MG TABLET PO (22:55)
[2023-08-17] MEDS: QUETIAPINE FUMARATE 25 MG TABLET 75 MG PO (23:06)
[2023-08-17 23:27] LABS: Anion Gap 10.9; BUN Creatinine Ratio 8.6; Calcium 9.2 mg/dL (8.5-10.1); Carbon Dioxide 27.6 mmol/L (21.0-32.0); Chloride 98 mmol/L (98-107); Estimated GFR (African America >60 (>=60); Estimated GFR (Non-African Ame >60 (>=60); Glucose 121 mg/dL (74-106); Potassium 4.5 mmol/L (3.5-5.1); Sodium 132 mmol/L (136-145)
[2023-08-18] VITALS (48 sets, daily range): BP systolic 104–145; BP diastolic 60–92; PULSE 55–95; TEMP 35.7–36.6; O2SAT 64–100
[2023-08-18] MEDS: LORAZEPAM 2 MG/ML VIAL IV (04:00)
[2023-08-18] MEDS: CLONIDINE HCL 0.2 MG TABLET 0.100000000000000006 MG PO (04:05)
[2023-08-18 05:59] LABS: Basophils Percent Auto 1.5 % (0.2-2.0); Eosinophils Absolute Auto 0.1 10^3/uL (0.0-0.7); Eosinophils Percent Auto 2.2 % (0.9-7.0); Hematocrit 35.3 % (36.0-48.0); Lymphocytes Absolute Auto 1.2 10^3/uL (1.2-3.8); Lymphocytes Percent Auto 44.4 % (20.5-60.0); Mean Corpuscular Hemoglobin 33.2 pg (26.7-34.0); Mean Corpuscular Volume 97.8 fL (81.0-99.0); Mean Platelet Volume 9.1 fL (9.5-13.5); Monocytes Absolute Auto 0.4 10^3/uL (0.3-0.8); Monocytes Percent Auto 13.4 % (1.7-12.0); Neutrophils Percent Auto 38.5 % (43.0-75.0); Platelet Count 152 10^3/uL (150-450); Red Blood Count 3.61 10^6/uL (4.20-5.40); Red Cell Distribution Width 12.6 % (11.0-15.0); White Blood Count 2.7 10^3/uL (4.0-11.0)
[2023-08-18 06:17] LABS: Alanine Aminotransferase 29 U/L (14-59); Albumin Globulin Ratio 1.2; Albumin Level 3.6 g/dL (3.4-5.0); Alkaline Phosphatase 79 U/L (46-116); Anion Gap 12.8; Aspartate Amino Transferase 42 U/L (15-37); BUN Creatinine Ratio 10.2; Bilirubin Total 0.9 mg/dL (0.2-1.0); Calcium 9.7 mg/dL (8.5-10.1); Carbon Dioxide 26.3 mmol/L (21.0-32.0); Chloride 101 mmol/L (98-107); Estimated GFR (African America >60 (>=60); Estimated GFR (Non-African Ame >60 (>=60); Globulin 3.1 g/dL; Glucose 92 mg/dL (74-106); Potassium 4.1 mmol/L (3.5-5.1); Sodium 136 mmol/L (136-145); Total Protein 6.7 g/dL (6.4-8.2)
[2023-08-18] MEDS: LORAZEPAM 1 MG TABLET 2 MG PO ×2 (06:18→09:26)
[2023-08-18] MEDS: OMEPRAZOLE 40 MG CAPSULE.DR PO (06:19)
[2023-08-18] MEDS: TOPIRAMATE 25 MG TABLET PO (06:19)
[2023-08-18] MEDS: LACTATED RINGER'S SOLUTION 1,000 ML 125 ML IV (06:24)
--- NOTE | 2023-08-18 09:21 | PM.DS1 ---
DS: Providers Provider Date of admission: 08/17/23 12:40 Primary care physician: Non-Staff Physician, Consults: 08/17/23 12:53 Occupational Therapy Eval and Treat Routine Reason for consultation: Ambulatory dysfunction/weakness Physical Therapy Eval and Treat Routine Reason for consultation: Ambulatory dysfunction/weakness DS: Diagnosis Discharge Diagnosis (1) Hyponatremia: (2) Alcohol withdrawal: Qualifiers: Complication of substance-induced condition: with perceptual disturbance Qualified Code(s): F10.932 - Alcohol use, unspecified with withdrawal with perceptual disturbance (3) Alcoholic intoxication: Qualifiers: Complication of substance-induced condition: with delirium Qualified Code(s): F10.921 - Alcohol use, unspecified with intoxication delirium (4) Alcohol abuse: (5) Nausea & vomiting: Qualifiers: Vomiting type: unspecified Qualified Code(s): R11.2 - Nausea with vomiting, unspecified (6) HTN (hypertension): Qualifiers: Hypertension type: primary hypertension Qualified Code(s): I10 - Essential (primary) hypertension (7) Bipolar 1 disorder: (8) Type 2 diabetes mellitus: Qualifiers: Diabetes mellitus fpc insulin use: without joint terminal attack controller use Diabetes mellitus complication status: with hyperglycemia Qualified Code(s): E11.65 - Type 2 diabetes mellitus with hyperglycemia DS: Summary Hospital Course Hospital Course: Reason for admission: See ER note and H&P for details. 38 y/o female with a history of alcohol abuse for over 15 years presents to ER with nausea and vomiting. For past several weeks drinking 1-2 bottles of vodka daily along with beer. Trying to wean off alcohol and wants to quit. Developed abdominal pain, nausea and vomiting. To ER and reports drank 6 beer that am. Labs showed EtOH 0.213 and sodium 120. Admitted for treatment. Hospital course: Started IV fluids and sodium improved. Started CIWA scale with ativan to monitor for alcohol withdrawal. Sodium improved and stopped fluids. C/o feeling shaky and added clonidine. Labs improved and normal. Patient without further nausea or GI symptoms. Tolerating oral intake. 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 Discharged home in stable condition. Use ativan and clonidine for symptoms. Contact facility on Sunday for counseling. Time Spent with Patient Time attestation: Total time spent providing and/or coordinating discharge services: Time spent: greater than 30 minutes Exam Constitutional Vital Signs, click to edit/add: Last Vital Signs Temp 96.2 F L 08/18/23 07:12 Pulse 67 08/18/23 08:00 Resp 8 L 08/18/23 08:00 BP 145/92 H 08/18/23 07:12 Pulse Ox 98 08/18/23 06:00 O2 Del Method Room Air 08/18/23 04:00 Documenting provider has reviewed patient's vital signs: yes Common normals: no apparent distress, oriented x3 and alert HENMT Common normals: normocephalic Eye Common normals: PERRL and EOMs intact bilaterally Respiratory Common normals: normal respiratory effort and clear to auscultation bilaterally Cardio Common normals: regular rate, regular rhythm, no gallops, no murmurs and no rub GI Common normals: Normal to inspection, nondistended, normoactive bowel sounds present and non-tender Extremity Common normals: no pedal edema DS: Data Data Completed and Pending Labs on day of discharge: Labs from last 24 hours 08/18/23 08/17/23 08/17/23 03:54 23:12 20:04 WBC 2.7 L RBC 3.61 L Hgb 12.0 Hct 35.3 L MCV 97.8 MCH 33.2 MCHC 34.0 RDW 12.6 Plt Count 152 MPV 9.1 L Neut % (Auto) 38.5 L Lymph % (Auto) 44.4 [place] % (Auto) 13.4 H Eos % (Auto) 2.2 Baso % (Auto) 1.5 Neut # (Auto) 1.0 L Lymph # (Auto) 1.2 [place] # (Auto) 0.4 Eos # (Auto) 0.1 Baso # (Auto) 0.0 Abs Immat Gran (auto) 0.00 Imm/Tot Granulo (auto) 0.0 PT INR Sodium 136 132 L Potassium 4.1 4.5 Chloride 101 98 Carbon Dioxide 26.3 27.6 Anion Gap 12.8 10.9 BUN 5.0 L 5.0 L Creatinine 0.49 L 0.58 Est GFR ( Amer) >60 >60 Est GFR (Non-Af Amer) >60 >60 BUN/Creatinine Ratio 10.2 8.6 Glucose 92 121 H Calcium 9.7 9.2 Magnesium Total Bilirubin 0.9 AST 42 H ALT 29 Alkaline Phosphatase 79 Total Protein 6.7 Albumin 3.6 Globulin 3.1 Albumin/Globulin Ratio 1.2 Lipase TSH Urine Ketones Urine Opiates Screen Ur Buprenorphine Scrn Ur Oxycodone Screen Urine Methadone Screen Ur Barbiturates Screen U Tricyclic Antidepress Ur Phencyclidine Scrn Ur Amphetamines Screen U Methamphetamines Scrn U Benzodiazepines Scrn Urine Cocaine Screen U Cannabinoids Screen Ethanol Quant POC Glucose 96 08/17/23 08/17/23 08/17/23 18:12 13:03 12:12 WBC RBC Hgb Hct MCV MCH MCHC RDW Plt Count MPV Neut % (Auto) Lymph % (Auto) [place] % (Auto) Eos % (Auto) Baso % (Auto) Neut # (Auto) Lymph # (Auto) [place] # (Auto) Eos # (Auto) Baso # (Auto) Abs Immat Gran (auto) Imm/Tot Granulo (auto) PT INR Sodium 130 L 129 L Potassium 4.9 3.8 Chloride 96 L 93 L Carbon Dioxide 22.0 21.3 Anion Gap 16.9 18.5 BUN 2.0 L 2.0 L Creatinine 0.46 L 0.48 L Est GFR ( Amer) >60 >60 Est GFR (Non-Af Amer) >60 >60 BUN/Creatinine Ratio 4.3 4.2 Glucose 97 73 L Calcium 9.2 8.6 Magnesium Total Bilirubin AST ALT Alkaline Phosphatase Total Protein Albumin Globulin Albumin/Globulin Ratio Lipase TSH 2.956 Urine Ketones Negative Urine Opiates Screen Negative Ur Buprenorphine Scrn Negative Ur Oxycodone Screen Negative Urine Methadone Screen Negative Ur Barbiturates Screen Negative U Tricyclic Antidepress Negative Ur Phencyclidine Scrn Negative Ur Amphetamines Screen Negative U Methamphetamines Scrn Negative U Benzodiazepines Scrn Negative Urine Cocaine Screen Negative U Cannabinoids Screen Negative Ethanol Quant POC Glucose 08/17/23 08/17/23 10:03 09:05 WBC 3.8 L RBC 3.95 L Hgb 13.0 Hct 36.2 MCV 91.6 MCH 32.9 MCHC 35.9 H RDW 12.1 Plt Count 172 MPV 8.4 L Neut % (Auto) 49.3 Lymph % (Auto) 33.4 [place] % (Auto) 13.8 H Eos % (Auto) 1.1 Baso % (Auto) 1.9 Neut # (Auto) 1.9 Lymph # (Auto) 1.3 [place] # (Auto) 0.5 Eos # (Auto) 0.0 Baso # (Auto) 0.1 Abs Immat Gran (auto) 0.02 Imm/Tot Granulo (auto) 0.5 PT 11.4 INR 1.08 Sodium 121 L* Potassium 4.0 Chloride 83 L* Carbon Dioxide 24.7 Anion Gap 17.3 BUN 3.0 L Creatinine 0.35 L Est GFR ( Amer) >60 Est GFR (Non-Af Amer) >60 BUN/Creatinine Ratio 8.6 Glucose 123 H Calcium 9.3 Magnesium 1.6 L Total Bilirubin 0.8 AST 74 H ALT 38 Alkaline Phosphatase 97 Total Protein 7.9 Albumin 4.3 Globulin 3.6 Albumin/Globulin Ratio 1.2 Lipase 19.0 TSH Urine Ketones Urine Opiates Screen Ur Buprenorphine Scrn Ur Oxycodone Screen Urine Methadone Screen Ur Barbiturates Screen U Tricyclic Antidepress Ur Phencyclidine Scrn Ur Amphetamines Screen U Methamphetamines Scrn U Benzodiazepines Scrn Urine Cocaine Screen U Cannabinoids Screen Ethanol Quant 213 POC Glucose 104 Discharge Plan Discharge Disposition: Home, Self-Care Condition: Fair Discharge Medications: New clonidine HCl 0.2 mg Tablet 0.1 mg PO Q4H PRN (Reason: Alcohol Withdrawal) Qty: 60 0RF lorazepam 1 mg Tablet 1 mg PO Q4H PRN (Reason: alcohol withdrawal) 5 Days Qty: 30 0RF Continued amlodipine 5 mg tablet 5 mg PO DAILY levothyroxine 50 mcg tablet 50 mcg PO DAILY losartan 25 mg tablet 25 mg PO DAILY omeprazole 40 mg capsule,delayed release(DR/EC) 40 mg PO DAILY paliperidone 6 mg tablet extended release 24hr 6 mg PO DAILY carbamazepine 200 mg tablet 200 mg PO BID quetiapine 25 mg tablet 75 mg PO DAILY Patient Comments: Patient home med time is 1929 daily. metformin 500 mg tablet extended release 24 hr 1,000 mg PO BIDWM topiramate 25 mg tablet 25 mg PO TID Rx Instructions: 1 AT 8AM, 1 AT 2PM AND 1 AT 8PM Activity: increase activity as tolerated Diet: advance to your usual diet Print Language: Maltese Forms: Portal Instructions
[2023-08-18 09:26] LABS: Glucometer 142 mg/dL (74-106)
[2023-08-18] MEDS: LEVOTHYROXINE SODIUM 25 MCG TABLET 50 MCG PO (09:26)
[2023-08-18] MEDS: AMLODIPINE BESYLATE 5 MG TABLET PO (09:26)
[2023-08-18] MEDS: LOSARTAN POTASSIUM 25 MG TABLET PO (09:26)
[2023-08-18] MEDS: THIAMINE MONONITRATE (VIT B1) 100 MG TABLET PO (09:27)
--- NOTE | 2023-08-21 13:43 | CM.NOTE ---
Attempted Discharge follow up phone call without success.
--- NOTE | 2023-08-22 15:18 | CM.DCFOLLOWU ---
Person spoke with: Shikha How are you feeling? ok How is your pain? no pain Did you understand your discharge instructions? yes Do you have any questions about your discharge instructions? no Were you given any prescriptions at discharge? yes Were you able to get your prescriptions filled? yes Do you understand how to take your medications as ordered? yes. Do you have any questions about your follow up appointment and do you plan to keep your follow up appointment? Yes, I went to appointments scheduled. Is there anything else that you would like to discuss? Thought she would be in hospital longer--like 2 nights. Explained the Hospitalist discharged based on labs WNL from admission. Verbalized understanding. Questions/Comments/Concerns/Other:
== END 2023-08-18 11:20 | disposition home or self-care (01) ==
LOC: ER 12:26 → ICU 08-18 09:02
PROVIDERS: Admitting Provider Internal Medicine; Emergency Provider Emergency Medicine; Visit Provider Family Medicine
DX: E87.1 Hypo-osmolality and hyponatremia (principal); F10.132 Alcohol abuse with withdrawal with perceptual disturbance; F10.121 Alcohol abuse with intoxication delirium; R11.2 Nausea with vomiting, unspecified; I10 Essential (primary) hypertension; F31.9 Bipolar disorder, unspecified; E11.9 Type 2 diabetes mellitus without complications; E03.9 Hypothyroidism, unspecified; Y90.7 Blood alcohol level of 200-239 mg/100 ml; F17.290 Nicotine dependence, other tobacco product, uncomplicated; Z79.899 Other long term (current) drug therapy; Z79.890 Hormone replacement therapy; Z79.84 Long term (current) use of oral hypoglycemic drugs
CPT/HCPCS: 36415; 71045; 80048; 80053; 80307; 80320; 82570; 82948; 83690; 83735; 83935; 84300; 84443; 85025; 85610; 93005; 94761; 96361; 96372; 96374; 96375; 96376; 99285

== ENCOUNTER 2023-10-16 17:30 | Emergency (ER) | payer BC, SELFPAY ==
[2023-10-16 17:39] VITALS: BP 172/100; PULSE 99; TEMP 36.9; O2SAT 99; BMI 21.0
--- NOTE | 2023-10-16 17:44 | ECG_ITS ---
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
== END 2023-10-16 18:14 | disposition left against medical advice (07) ==
PROVIDERS: Emergency Provider Emergency Medicine
DX: Z53.21 Procedure and treatment not carried out due to patient leaving prior to being seen by health care provider (principal)
CPT/HCPCS: 80053; 80307; 80320; 83605; 83735; 84443; 84484; 84703; 85610; 93005; 99281

== ENCOUNTER 2023-11-22 14:40 | Emergency (ER) | payer BC, SELFPAY ==
[2023-11-22] VITALS (12 sets, daily range): BP systolic 138–180; BP diastolic 90–123; PULSE 78–125; TEMP 36.7; O2SAT 91–98; BMI 22.4
--- NOTE | 2023-11-22 14:52 | ECG_ITS ---
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
--- NOTE | 2023-11-22 15:04 | ED.ALCOHOL1 ---
HPI - Alcohol General Chief Complaint: Alcohol Stated Complaint: GENERAL WEAKNESS Time Seen by Provider: 11/22/23 14:51 Source: patient Mode of arrival: walk-in History of Present Illness HPI narrative: The patient presented to us with alcohol abuse at the main issue requesting alcohol detox, last drink of vodka was almost an hour ago she mentioned that she usually drinks almost 750 mL of vodka daily, patient last detox of alcohol was 6 weeks ago Patient denying abdominal pain but she does have nausea and vomiting and she mentioned that she also have anxiety and tremors Related Data Home Medications ?Medication ?Instructions ?Recorded ?Confirmed amlodipine 5 mg tablet 5 mg PO DAILY 08/17/23 11/22/23 carbamazepine 200 mg tablet 200 mg PO DAILY 08/17/23 11/22/23 levothyroxine 50 mcg tablet 50 mcg PO DAILY 08/17/23 11/22/23 losartan 25 mg tablet 25 mg PO DAILY 08/17/23 11/22/23 metformin 500 mg tablet,extended 1,000 mg PO DAILY 08/17/23 11/22/23 release 24 hr omeprazole 40 mg capsule,delayed 40 mg PO DAILY 08/17/23 11/22/23 release paliperidone 6 mg tablet,extended 6 mg PO DAILY 08/17/23 11/22/23 release 24 hr quetiapine 25 mg tablet 75 mg PO DAILY 08/17/23 11/22/23 Previous Rx's ?Medication ?Instructions ?Recorded clonidine HCl 0.2 mg tablet 0.1 mg (1/2 x 0.2 mg) PO Q4H PRN 08/18/23 Alcohol Withdrawal #60 tabs Allergies Allergy/AdvReac Type Severity Reaction Status Date / Time lisinopril Allergy Intermediate Verified 08/17/23 10:08 Review of Systems ROS Status of ROS 10 or more systems reviewed and unremarkable except as noted in history and below [facility] Medical History (Updated 11/22/23 @ 17:59 by Juli Pelletier MD) Alcohol abuse ?F10.10 - Alcohol abuse, uncomplicated (ICD-10) Type 2 diabetes mellitus ?E11.9 - Type 2 diabetes mellitus without complications (ICD-10) Bipolar 1 disorder ?F31.9 - Bipolar disorder, unspecified (ICD-10) HTN (hypertension) ?I10 - Essential (primary) hypertension (ICD-10) Abdominal pain ?R10.9 - Unspecified abdominal pain (ICD-10) Hypothyroidism ?E03.9 - Hypothyroidism, unspecified (ICD-10) Pancreatitis ?K85.90 - Acute pancreatitis without necrosis or infection, unspecified (ICD-10) Social History (Updated 08/17/23 @ 13:08 by Nicol Raman) Within the past year, how often did you have a drink containing alcohol: 4 or more times a week Within the past year, how many standard drinks containing alcohol did you have on a typical day: 7 to 9 Within the past year, how often did you have six or more drinks on one occasion: daily or almost daily Total score: 10 Score interpretation: A score of 3 or more indicates drinking is likely to affect patient's safety. Smoking status: Current every day smoker Do you use any of these nicotine containing products: vaping products Non-prescribed substance use: denies use Highest level of school completed/degree received: high school graduate Exam Narrative Exam Narrative: Nurses notes and vital signs reviewed and patient is not hypoxic. General: Well-appearing and in no apparent distress. Skin: Warm, dry, no pallor noted. No rash. Head: Normocephalic, atraumatic. Neck: Supple, non-tender. Eye: Pupils are equal, round and EOMI. No scleral icterus. Ears, Nose, Mouth, and Throat: TM are clear, no nasal mucosal hypertrophy. Oral mucosa is moist, no posterior oropharynx erythema, uvula is mid-line Cardiovascular: Regular Rate and Rhythm without murmur, gallop or rub. Respiratory: No accessory muscle use or respiratory distress. Lungs are clear to auscultation, no wheezing, rales or rhonchi Chest Wall: no tenderness Back: No midline thoracic or lumbar vertebral tenderness. No CVA tenderness Musculoskeletal: normal ROM, no calf or popliteal tenderness, no lower extremity edema/swelling GI: Abdomen is soft, non-distended. Normal bowel sounds. No masses appreciated. No tenderness to palpation. No rebound, guarding, or rigidity noted. Neurological: A&O x4. No cranial nerve dysfunction observed. No truncal ataxia. Moves all extremities. Sensation intact. Psychiatric: Cooperative and interactive. Normal mood and affect. Constitutional Vital Signs, click to edit/add: Last Vital Signs Temp 98.1 F 11/22/23 14:43 Pulse 78 11/22/23 16:00 Resp 23 H 11/22/23 16:00 BP 138/90 11/22/23 15:59 Pulse Ox 96 11/22/23 16:00 O2 Del Method Room Air 11/22/23 14:43 Course Vital Signs Vital signs: Vital Signs Temperature 98.1 F 11/22/23 14:43 Pulse Rate 114 H 11/22/23 14:43 Respiratory Rate 18 11/22/23 14:43 Blood Pressure 180/117 H 11/22/23 14:43 Pulse Oximetry 98 11/22/23 14:43 Oxygen Delivery Method Room Air 11/22/23 14:43 Temperature 98.1 F 11/22/23 14:43 Pulse Rate 78 11/22/23 16:00 Respiratory Rate 23 H 11/22/23 16:00 Blood Pressure 138/90 11/22/23 15:59 Pulse Oximetry 96 11/22/23 16:00 Oxygen Delivery Method Room Air 11/22/23 14:43 MDM - Alcohol MDM Narrative Medical decision making narrative: EKG showing sinus tachycardia with a heart rate of [address] elevation or depression The patient CBC and chemistry showed no acute significant pathology Alcohol level is above 400 Patient negative test Denied any other drug use and the talk screen is negative Patient also provided with Zofran in the ER [facility] services assessment for alcohol detox awaiting result Lab Data Labs: Lab Results 11/22/23 11/22/23 Range/Units 15:05 15:54 WBC 5.9 (4.0-11.0) 10^3/uL RBC 4.51 (4.20-5.40) 10^6/uL Hgb 14.4 (12.0-16.0) g/dL Hct 41.7 (36.0-48.0) % MCV 92.5 (81.0-99.0) fL MCH 31.9 (26.7-34.0) pg MCHC 34.5 (29.9-35.2) g/dL RDW 12.0 (11.0-15.0) % Plt Count 189 (150-450) 10^3/uL MPV 9.0 L (9.5-13.5) fL Neut % (Auto) 34.4 L (43.0-75.0) % Lymph % (Auto) 54.3 (20.5-60.0) % [place] % (Auto) 9.3 (1.7-12.0) % Eos % (Auto) 0.3 L (0.9-7.0) % Baso % (Auto) 1.7 (0.2-2.0) % Neut # (Auto) 2.0 (1.4-6.5) 10^3/uL Lymph # (Auto) 3.2 (1.2-3.8) 10^3/uL [place] # (Auto) 0.6 (0.3-0.8) 10^3/uL Eos # (Auto) 0.0 (0.0-0.7) 10^3/uL Baso # (Auto) 0.1 (0.0-0.1) 10^3/uL Abs Immat Gran (auto) 0.00 (0.00-0.03) 10^3/uL Imm/Tot Granulo (auto) 0.0 (0.0-0.5) % Sodium 138 (136-145) mmol/L Potassium 3.4 L (3.5-5.1) mmol/L Chloride 97 L (98-107) mmol/L Carbon Dioxide 22.2 (21.0-32.0) mmol/L Anion Gap 22.2 BUN 3.0 L (7.0-18.0) mg/dL Creatinine 0.48 L (0.55-1.02) mg/dL Est GFR ( Amer) >60 (>=60) Est GFR (Non-Af Amer) >60 (>=60) BUN/Creatinine Ratio 6.3 Glucose 97 (74-106) mg/dL Calcium 8.9 (8.5-10.1) mg/dL Magnesium 1.4 L (1.8-2.4) mg/dL Total Bilirubin 0.5 (0.2-1.0) mg/dL AST 48 H (15-37) U/L ALT 33 (14-59) U/L Alkaline Phosphatase 81 (46-116) U/L Total Protein 7.8 (6.4-8.2) g/dL Albumin 4.3 (3.4-5.0) g/dL Globulin 3.5 g/dL Albumin/Globulin Ratio 1.2 Serum HCG, Qual Negative (NEGATIVE) Urine Color Lt. yellow (YELLOW) Urine Clarity Clear (CLEAR) Urine pH 6.0 (5.0-9.0) Ur Specific [place] <=1.005 A (1.005-1.025) Urine Protein Negative (NEG/TRACE) mg/dL Urine Glucose (UA) Negative (NEGATIVE) mg/dL Urine Ketones Negative (NEGATIVE) mg/dL Urine Occult Blood Negative (NEGATIVE) Urine Nitrite Negative (NEGATIVE) Urine Bilirubin Negative (NEGATIVE) Urine Urobilinogen 0.2 (0.2-1.0) EU/dL Ur Leukocyte Esterase Negative (NEGATIVE) Urine Opiates Screen Negative (NEGATIVE) Ur Buprenorphine Scrn Negative (NEGATIVE) Ur Oxycodone Screen Negative (NEGATIVE) Urine Methadone Screen Negative (NEGATIVE) Ur Barbiturates Screen Negative (NEGATIVE) U Tricyclic Antidepress Negative (NEGATIVE) Ur Phencyclidine Scrn Negative (NEGATIVE) Ur Amphetamines Screen Negative (NEGATIVE) U Methamphetamines Scrn Negative (NEGATIVE) U Benzodiazepines Scrn Negative (NEGATIVE) Urine Cocaine Screen Negative (NEGATIVE) U Cannabinoids Screen Negative (NEGATIVE) Ethanol Quant 434 mg/dL Discharge Plan Discharge Patient Disposition: Still a Patient
[2023-11-22] MEDS: 0.9 % SODIUM CHLORIDE 1,000 ML 500 ML IV (15:14)
[2023-11-22 15:15] LABS: Basophils Absolute Auto 0.1 10^3/uL (0.0-0.1); Basophils Percent Auto 1.7 % (0.2-2.0); Eosinophils Percent Auto 0.3 % (0.9-7.0); Hematocrit 41.7 % (36.0-48.0); Hemoglobin 14.4 g/dL (12.0-16.0); Lymphocytes Absolute Auto 3.2 10^3/uL (1.2-3.8); Lymphocytes Percent Auto 54.3 % (20.5-60.0); Mean Corpuscular HGB Conc 34.5 g/dL (29.9-35.2); Mean Corpuscular Hemoglobin 31.9 pg (26.7-34.0); Mean Corpuscular Volume 92.5 fL (81.0-99.0); Monocytes Absolute Auto 0.6 10^3/uL (0.3-0.8); Monocytes Percent Auto 9.3 % (1.7-12.0); Neutrophils Percent Auto 34.4 % (43.0-75.0); Platelet Count 189 10^3/uL (150-450); Red Blood Count 4.51 10^6/uL (4.20-5.40); White Blood Count 5.9 10^3/uL (4.0-11.0)
[2023-11-22] MEDS: FAMOTIDINE/PF 20 MG/2 ML VIAL IV (15:16)
[2023-11-22] MEDS: ONDANSETRON PF 4 MG/2 ML VIAL IV (15:16)
--- NOTE | 2023-11-22 15:27 | PC.NURSE ---
PT STATES SHE IS HERE FOR ETOH DETOX AND WOULD LIKE TO GO TO A REHAB FACILITY. LEFT A REHAB FACILITY ([facility]) 6 WEEKS AGO. STATES SHE DRINKS ABOUT 750ML OF VODKA PER DAY. SHE HAS NOT ATE OR DRANK ANYTHING SINCE LAST NIGHT. ANXIOUS-MANNERED. FATHER AT BEDSIDE FOR SUPPORT.
--- OUTSIDE RECORDS SUMMARY | 2023-11-22 15:30 | XMS_ITS | CCD ---
Author Organization [facility] Care Team Providers Care Youth Minister Name Role Phone Family [facility], Services Primary Care Provider DO Hal Orozco Emergency Provider CATIA Villegas Attending Provider MD Delfino Reese Attending Provider ERINN McneillC Yeyo Martinez Primary Care Provider [phone] AVERY VILLEGAS Primary Care Physician MAGGY WORLEY Consulting Unavailable MISC, DR GOMEZ Primary Care Unavailable MARKER, DR MARVIN Attending Unavailable MARKER, DR MARVIN Admitting Unavailable MARKER, DR MARVIN Consulting Unavailable DEL ROSARIO, GIHarsha Consulting Unavailable MISC, DR GOMEZ Primary Care Unavailable SUMAYA, DR BRUNO Attending Unavailable SUMAYA, DR BRUNO Admitting Unavailable OBEY, DR DOEN Anthony Consulting Unavailable SUMAYA, DR BRUNO Consulting Unavailable HAY, DR MEI Consulting Unavailable OBEY, DR DEON Anthony Consulting Unavailable OBEY, DR DEON Anthony Admitting Unavailable NAOMI, DR GOMEZ Primary Care Unavailable OBEY, DR DEON Anthony Attending Unavailable Varinder Ang Attending Unavailable Thanh Bal Attending Unavailable DO Judith Mock Attending Unavailable Aung Saldaña Attending Unavailable Becky Gambino Unavailable CATIA Gambino Attending Provider CATIA Villegas Primary Care Provider CATIA Villegas Attending Provider Becky Gambino Attending Unavailable Avery Villegas Primary Care Unavailable Becky Gambino Admitting Unavailable [facility] Services Primary Care Unavaila Avery Alejandra Admitting Unavailable Avery Villegas Attending Unavailable Avery Villegas Primary Care Unavailable Jack Kwon Admitting Unavailab Jack Pulliam Attending Unavailab emma Allergies Allergy Classification Reported Allergen(s) Allergy Type Date of Onset Reaction(s) Facility (10 sources) Lisinopril; Translations: [Lisinopril] Drug Allergy 2 Swelling of Lip/Tongue/Throa t, Anaphylactic reaction, Unknown [facility] Medications Current Medications Medication Drug Class(es) Dates Sig (Normalized) Sig (Original) acetaminophen 325 mg / HYDROcodone bitartrate 5 mg oral tablet (1 source) Opioid Agonist Start: 02-02-2022 [place] 325 mg-5 mg oral tablet 1 tab(s), Oral, q6hr for pain, 12 tab(s), Refill(s) 0 Start Date: 02/02/22 Status: Ordered amLODIPine 5 mg oral tablet (16 sources) Dihydropyridine Calcium Channel Kassie Start: 06-13-2023 take 5 mg by mouth once daily Amlodipine Active 5 MG PO Daily June 13, 2023 1:00am Start: 02-28-2021 End: 06-13-2023 take 10 mg by mouth once daily Amlodipine Discontinued 10 MG PO Daily February 28, 2021 1:00am June 13, 2023 3:53pm Start: 11-30-2020 End: 02-28-2021 take 5 mg by mouth once daily Amlodipine Discontinued 5 MG PO Daily November 30, 2020 12:00am February 28, 2021 5:04pm docusate sodium 100 mg oral capsule (9 sources) Start: 07-11-2021 End: 06-14-2023 take 1 capsule by mouth once daily Docusate Sodium (Colace) 100 mg capsule Active 100 MG PO Daily June 14, 2023 3:16pm FreeStyle Parisa 3 Sensor - (1 source) Start: 03-27-2023 FreeStyle Libr e 3 Sensor - as directed in vitro every 14 days for 84 days E11.65 Mar, Active hydrOXYzine pamoate 50 mg oral capsule (5 sources) Antihistamine Start: 12-23-2021 take 50 mg by mouth twice daily Hydroxyzine Pamoate Active 50 MG PO Twice daily December 23, 2021 12:00am levothyroxine sodium 0.05 mg oral tablet (8 sources) l-Thyroxine Start: 02-28-2021 take 50 ug by mouth once daily Levothyroxine Active 50 MCG PO Daily February 28, 2021 1:00am take 1 capsule by mo uth once daily in the morning Levothyroxine Sodium 50 MCG 1 capsule in the morning on an empty stomach Orally Once a day Active 24 hr metFORMIN hydrochloride 500 mg extended release oral tablet (3 sources) Biguanide Start: 08-08-2023 take 1 tablet by mouth twice daily at dinner Metformin Active 0 .ROUTE .COMPLEX 180 August 08, 2023 3:12pm TAKE 1 TABLET BY MOUTH TWICE A DAY WITH BREAKFAST AND DINNER Start: 06-13-2023 End: 08-08-2023 take 500 mg by mouth twice daily Metformin Discontinued 500 MG PO Twice daily June 13, 2023 1:00am August 08, 2023 3:12pm Start: 03-27-2023 metFORMIN HCl ER 500 MG 1 tablet BID with breakfast and dinner Orally twice daily for 30 days Mar, Active omeprazole 40 mg delayed release oral capsule (10 sources) Proton Pump Inhibitor Start: 02-28-2021 End: 06-14-2023 take 40 mg by mouth once daily Omeprazole Active 40 MG PO Daily June 14, 2023 3:17pm take 1 capsule by mouth once latesha ly PriLOSEC 40 MG 1 capsule 30 minutes before morning meal Orally Once a day Active 24 hr paliperidone 3 mg extended release oral tablet (2 sources) Atypical Antipsychotic Start: 06-13-2023 take 3 mg by mouth once daily Paliperidone Active 3 MG PO Daily June 13, 2023 1:00am take 1 tablet by marley th every twenty-four hours Invega 3 MG 1 tablet in the morning Orally Once a day Active promethazine hydrochloride 25 mg rectal suppository (7 sources) Phenothiazine Start: 11-06-2021 Promethazine Active 25 MG NC Q6H November 06, 2021 12:00am QUEtiapine 25 mg oral tablet (2 sources) Atypical Antipsychotic Start: 06-13-2023 take 25 mg by mouth once daily Quetiapine Active 25 MG PO Daily June 13, 2023 1:00am SEROquel Active sulfamethoxazole 800 mg / trimethoprim 160 mg oral tablet (1 source) Dihydrofolate Reductase Inhibitor Antibacterial, Sulfonamide Antimicrobial Start: 02-02-2022 End: 02-12-2022 Bactrim DS 800 mg-160 mg Tab 1 tab(s), Oral, BID for 10 day(s), 20 tab(s), Refill(s) 0 Start Date: 02/02/22 Stop Date: 02/12/22 Status: Ordered Completed/Discontinued Medications Medication Drug Class(es) Dates Sig (Normalized) Sig (Original) acetaminophen 325 mg / oxyCODONE hydrochloride 5 mg oral tablet (14 sources) Opioid Agonist Start: 08-05-2019 End: 11-30-2020 take 1 tablet by mouth every six hours Oxycodone-Acetamino phen Discontinued 1 TAB PO Q6H 12 August 05, 2019 November 30, 2020 10:10am Start: 07-30-2017 End: 12-25-2017 take 1 tablet by mouth every six hours Oxycodone-Acetaminophen Discontinued 1 T AB PO Q6H July 30, 2017 December 25, 2017 3:23am amoxicillin 875 mg / clavulanate 125 mg oral tablet (7 sources) Penicillin-class Antibacterial Start: 11-06-2021 End: 12-23-2021 take 1 tablet by mouth twice daily Amoxicillin-Pot Clavulanate Discontinued 1 TAB PO Twice daily November 06, 2021 12:00am December 23, 2021 7:49am blood-glucose sensor (FreeStyle Parisa 3 Sensor) (1 source) Start: 06-13-2023 End: 06-14-2023 blood-glucose sensor (FreeStyle Parisa 3 Sensor) Discontinued .Route June 13, 2023 1:00am June 14, 2023 3:19pm busPIRone hydrochloride 15 mg oral tablet (1 source) take 1 tablet by mouth every twelve hours busPIRone HCl 15 MG 1 tablet Orally Twice a day Not-Taking/PRN cephalexin 500 mg oral capsule (7 sources) Cephalosporin Antibacterial Start: 11-30-2020 End: 02-28-2021 take 500 mg by mouth twice daily Cephalexin Discontinued 500 MG PO Twice daily 14 November 30, 2020 12:00am February 28, 2021 5:01pm chlordiazePOXIDE hydrochloride 25 mg oral capsule (7 sources) Benzodiazepine Start: 07-13-2021 End: 12-23-2021 Chlordiazepoxide Hcl Discontinued 25 MG PO Twice daily 8 4 July 13, 2021 12:00am December 23, 2021 7:50am 25 BID FOR 1 DAY THEN 25 G ONCE DAILY FOR 3 DAYS THEN STOP dicyclomine hydrochloride 10 mg oral capsule (7 sources) Anticholinergic Start: 11-30-2020 End: 02-28-2021 take 10 mg by mouth three times daily Dicyclomine Discontinued 10 MG PO Three times daily November 30, 2020 12:00am February 28, 2021 5:01pm ezetimibe 10 mg oral tablet (8 sources) Dietary Cholesterol Absorption Inhibitor Start: 02-28-2021 End: 06-14-2023 take 10 mg by mouth once daily Ezetimibe Discontinued 10 MG PO Daily February 28, 2021 1:00am June 14, 2023 3:17pm folic acid 1 mg oral tablet (1 source) take 1 tablet by mouth every twenty-four hours Folic Acid 1 MG 1 tablet Orally Once a day Not-Taking/PRN gabapentin 300 mg oral capsule (1 source) Anti-epileptic Agent take 1 capsule by mouth every twenty-four hours Gabapentin 300 MG 1 capsule Orally Once a day Not-Taking/PRN ibuprofen 800 mg oral tablet (7 sources) Nonsteroidal Anti-inflammatory Drug Start: 07-30-2017 End: 12-25-2017 take 800 mg by mouth every six hours Ibuprofen Discontinued 800 MG PO Q6H July 30, 2017 12:00am December 25, 2017 3:23am losartan potassium 25 mg oral tablet (9 sources) Angiotensin 2 Receptor Kassie Start: 06-13-2023 End: 06-14-2023 take 25 mg by mouth once daily Losartan Discontinued 25 MG PO Daily June 13, 2023 1:00am June 14, 2023 3:17pm Start: 07-09-2021 take 50 mg by mouth once daily Losartan Active 50 MG PO Daily July 09, 2021 12:00am take 1 tablet by marley th every twenty-four hours Losartan Potassium 25 MG 1 tablet Orally Once a day Active mirtazapine 15 mg oral tablet (1 source) take 1 tablet by mouth every twenty-four hours Mirtazapine 15 MG 1 tablet at bedtime Orally Once a day Not-Taking/PRN naltrexone hydrochloride 50 mg oral tablet (7 sources) Opioid Antagonist Start: End: take 50 mg by mouth once daily Naltrexone Discontinued 50 MG PO Daily at 0800 July 12, 2021 12:00am July 13, 2021 1:17pm ondansetron 8 mg oral tablet (14 sources) Serotonin-3 Receptor Antagonist Start: End: take 8 mg by mouth every six hours Ondansetron Hcl Discontinued 8 MG PO Q6H February 28, 2021 1:00am June 02, 2021 10:51am Start: 11-30-2020 End: 02-28-2021 take 4 mg by mouth every six hours Ondansetron Discontinued 4 MG PO Q6H November 30, 2020 12:00am February 28, 2021 5:06pm + DHA 27-1 & 250 MG (1 source) + DHA 2 7-1 & 250 MG as directed Orally Not-Taking/PRN topiramate 25 mg oral tablet (2 sources) Start: 06-13-2023 End: 06-14-2023 take 1 tablet by mouth once daily Topiramate (Topamax) 25 mg tablet Discontinued 25 MG PO Daily June 13, 2023 1:00am June 14, 2023 3:18pm Topamax Active traMADol hydrochloride 50 mg oral tablet (7 sources) Opioid Agonist Start: 07-13-2021 End: 12-23-2021 take 50 mg by mouth once daily Tramadol Discontinued 50 MG PO Daily 5 3 July 13, 2021 12:00am December 23, 2021 7:48am 24 hr venlafaxine 37.5 mg extended release oral capsule (8 sources) Serotonin and Norepinephrine Reuptake Inhibitor Start: 11-30-2020 End: 06-14-2023 take 150 mg by mouth at bedtime Venlafaxine Discontinued 150 MG PO Bedtime November 30, 2020 12:00am June 14, 2023 3:19pm Start: 11-30-2020 take 75 mg by mouth at bedtime Venlafaxine Active 75 MG PO Bedtime November 30, 2020 12:00am take 1 tablet by marley th every twenty-four hours Venlafaxine HCl 75 MG 1 tablet with food Orally Once a day Not-Taking/PRN Problems Active Problems Problem Classification Problem Date Documented Da te Episodic/Chronic Abdominal pain (11 sources) Abdominal pain; Translations: [Unspecified abdominal pain] Onset: 2 02-28-2021 Episodic Administrative/social admission (3 sources) Dietary counseling and surveillance; Translations: [Patient encounter status] Episodic Alcohol-related disorders (20 sources) Alcohol abuse; Translations: [Alcohol abuse, uncomplicated] Onset: 2 08-03-2019 Chronic Anxiety disorders (1 source) Anxiety disorder, unspecified; Translations: [ANXIETY DISORDER UNSPECIFIED] Onset: 2 Chronic Diabetes mellitus with complications (6 sources) Hyperglycemia due to type 2 diabetes mellitus; Translations: [Type 2 diabetes mellitus with hyperglycemia] Onset: 3 Chronic Diabetes or abnormal glucose tolerance complicating ; childbirth; or the puerperium (2 sources) History of gestational diabetes mellitus; Translations: [Personal history of gestational diabetes] Episodic Disorders of lipid metabolism (4 sources) Hyperlipidemia; Translations: [Hyperlipidemia, unspecified] Chronic Esophageal disorders (1 source) Gastroesophageal reflux disease; Translations: [Gastro-esophageal reflux disease without esophagitis] Chronic Essential hypertension (11 sources) Hypertensive disorder; Translations: [Essential (primary) hypertension] Onset: 2 02-28-2021 Chronic Fluid and electrolyte disorders (7 sources) Acute hypokalemia; Translations: [Hypokalemia] 02-28-2021 Episodic Fracture of upper limb (10 sources) Fracture of distal end of radius; Translations: [Unspecified fracture of the lower end of left radius, initial encounter for closed fracture] 07-30-2017 Episodic Menstrual disorders (1 source) Disorder of menstruation; Translations: [Irregular menstruation, unspecified] Chronic Nausea and vomiting (18 sources) Nausea and vomiting; Translations: [Nausea with vomiting, unspecified] Onset: 2 02-28-2021 Episodic Noninfectious gastroenteritis (8 sources) Colitis; Translations: [Noninfective gastroenteritis and colitis, unspecified] Onset: 2 11-06-2021 Episodic Nutritional deficiencies (4 sources) Vitamin D deficiency; Translations: [Vitamin D deficiency, unspecified] Chronic Other aftercare (1 source) Other custodial (current) drug therapy; Translations: [OTH CARE HOME CURRENT DRUG THERAPY] Onset: 2 Episodic Other gastrointestinal disorders (1 source) Dysphagia; Translations: [Dysphagia, unspecified] Episodic Pancreatic disorders (not diabetes) (20 sources) Pancreatitis; Translations: [Acute pancreatitis without necrosis or infection, unspecified] 07-09-2021 Episodic Regional enteritis and ulcerative colitis (4 sources) Ulcerative colitis, unspecified, without complications; Translations: [ULCERATIVE COLITIS UNS W/O COMP] Onset: 2 Chronic Residual codes; unclassified (8 sources) Alcoholism; Translations: [Alcohol use disorder] 07-09-2021 Episodic Residual codes; unclassified (2 sources) Body mass index (BMI) 21.0-21.9, adult; Translations: [Body Mass Index between 19-24, adult] Episodic Residual codes; unclassified (1 source) Body mass index 20-24 - normal; Translations: [Body mass index (BMI) 21.0-21.9, adult] 06-13-2023 Episodic Thyroid disorders (8 sources) Hypothyroidism; Translations: [Hypothyroidism, unspecified] Onset: 2 02-28-2021 Chronic Unclassified (1 source) CONTACT W/AND (SUSP) EXPOS COVID-19; Translations: [CONTACT W/AND (SUSP) EXPOS COVID-19] Onset: 2 Urinary tract infections (8 sources) Urinary tract infectious disease; Translations: [Urinary tract infection, site not specified] Onset: 2 11-30-2020 Episodic Viral infection (8 sources) Disease caused by 2019-nCoV; Translations: [COVID-19] 03-03-2021 Episodic Past or Other Problems Problem Classification Problem Date Documented Date Episodic/Chronic Cardiac dysrhythmias (1 source) Tachycardia, unspecified; Translations: [TACHYCARDIA UNSPECIFIED] Onset: 11-23-2021 Episodic Contraceptive and procreative management (1 source) Presence of (intrauterine) contraceptive device; Translations: [PRESENCE IU CONTRACEPT DEVICE] Onset: 11-14-2021 Episodic Diabetes mellitus without complication (1 source) Hyperglycemia, unspecified; Translations: [HYPERGLYCEMIA UNSPECIFIED] Onset: 11-23-2021 Episodic Other screening for suspected conditions (not mental disorders or infectious disease) (1 source) Other specified abnormal findings of blood chemistry; Translations: [OTH SPEC ABNORMAL FINDINGS BLD CHEM] Onset: 11-23-2021 Episodic Results Test Name Value Interpretation Reference Range Facility Alanine aminotransferase [En zymatic activity/volume] in Serum or PlasmaOrdered By: Avery Villegas on 08-14-2023 ALT [Catalytic activity/Vol] 29 U/L 7-52 [facility] Albumin [Mass/volume] in Ser um or Plasma by Bromocresol green (BCG) dye binding methoOrdered By: Avery Villegas on 08-14-2023 Albumin BCG dye [Mass/Vol] 4.8 g/dL 3.5-5.7 [facility] Alkaline phosphatase [Enzyma tic activity/volume] in Serum or PlasmaOrdered By: Avery Villegas on 08-14-2023 ALP [Catalytic activity/Vol] 82 U/L 34-104 [facility] Aspartate aminotransferase [ Enzymatic activity/volume] in Serum or PlasmaOrdered By: Avery Villegas on 08-14-2023 AST [Catalytic activity/Vol] 78 U/L 13-39 [facility] Basophils Auto (Bld) [#/Vol] Ordered By: Avery Villegas on 08-14-2023 Basophils (Bld) [#/Vol] 0.1 10*3/uL 0.0-0.2 [facility] Basophils/100 WBC Auto (Bld) Ordered By: Avery Villegas on 08-14-2023 Basophils/100 WBC (Bld) 1.9 % . [facility] Bilirubin.total [Mass/volume ] in Serum or PlasmaOrdered By: Avery Villegas on 08-14-2023 Bilirubin [Mass/Vol] 0.5 mg/dL 0.3-1.0 [facility] Calcium [Mass/volume] in Ser um or PlasmaOrdered By: Avery Villegas on 08-14-2023 Calcium [Mass/Vol] 9.6 mg/dL 8.6-10.3 [facility] Carbon dioxide, total [Moles /volume] in Serum or PlasmaOrdered By: Avery Villgeas on 08-14-2023 CO2 [Moles/Vol] 24.7 mmol/L 21.0-31.0 [facility] Chloride [Moles/volume] in S ben or PlasmaOrdered By: Avery Villegas on 08-14-2023 Chloride [Moles/Vol] 95 mmol/L 98-107 [facility] Cholesterol [Mass/volume] in Serum or PlasmaOrdered By: Avery Villegas on 08-14-2023 Cholesterol [Mass/Vol] 333 mg/dL 140-[address] [facility] Comment on above: Chol less than 200 m g/dl low riskChol 201-239 mg/dl borderline riskChol 240 mg/dl and greater high risk Cholesterol in LDL Calc [Mas s/Vol]Ordered By: Avery Villegas on 08-14-2023 Cholesterol in LDL [Mass/Vol] 181 mg/dL 0-100 [facility] Comment on above: LDL ATP III CLASSIFI CATIONLDL less than 100 mg/dL OptimalLDL 100-129 mg/dL Near or above optimalLDL 130-159 mg/dL Borderline highLDL 160-189 mg/dL HighLDL greater than 189 mg/dL Very high Cholesterol in VLDL Calc [Ma ss/Vol]Ordered By: Avery Villegas on 08-14-2023 Cholesterol in VLDL [Mass/Vol] 22 mg/dL [facility] Complete Blood Count Auto Di ffon 08-14-2023 Basophils (Bld) [#/Vol] 0.1 10*3/uL Normal 0.0-0.2 [facility] Comment on above: Order Comment: Reaso n for Exam Benign essential hypertension Result Comment: PERF ORMED BY: [place] [address] PATHOLOGIST RETIREMENT ADMINISTRATOR OSMEL BLUE M.D. Performed By: #### C MP, TSH3 wRFLX, LIPID, CBC #### [facility] [address] [place] [address] Basophils/100 WBC (Bld) 1.9 % Normal . [facility] Comment on above: Order Comment: Reaso n for Exam Benign essential hypertension Performed By: #### C MP, TSH3 wRFLX, LIPID, CBC #### [facility] [address] Eosinophils (Bld) [#/Vol] 0.0 10*3/uL Normal 0.0-0.45 [facility] Comment on above: Order Comment: Reaso n for Exam Benign essential hypertension Performed By: #### C MP, TSH3 wRFLX, LIPID, CBC #### [place] [address] [place] Eosinophils/100 WBC (Bld) 1.0 % Normal . [facility] Comment on above: Order Comment: Reaso n for Exam Benign essential hypertension Performed By: #### C MP, TSH3 wRFLX, LIPID, CBC #### [facility] [address] [place] [address] Erythrocyte distribution width (RBC) [Ratio] 14.2 % Normal 11.9-15.3 [facility] Comment on above: Order Comment: Reaso n for Exam Benign essential hypertension Performed By: #### C MP, TSH3 wRFLX, LIPID, CBC #### [address] Hematocrit (Bld) [Volume fraction] 39.2 % Normal 34.0-46.4 [facility] Comment on above: Order Comment: Reaso n for Exam Benign essential hypertension Performed By: #### C MP, TSH3 wRFLX, LIPID, CBC #### [address] Hemoglobin (Bld) [Mass/Vol] 13.4 g/dL Normal 11.8-15.4 [facility] Comment on above: Order Comment: Reaso n for Exam Benign essential hypertension Performed By: #### C MP, TSH3 wRFLX, LIPID, CBC #### [place] [address] [place] Lymphocytes (Bld) [#/Vol] 1.1 10*3/uL Normal 1.00-4.8 [facility] Comment on above: Order Comment: Reaso n for Exam Benign essential hypertension Performed By: #### C MP, TSH3 wRFLX, LIPID, CBC #### [place] [address] [place] Lymphocytes/100 WBC (Bld) 27.8 % Normal . [facility] Comment on above: Order Comment: Reaso n for Exam Benign essential hypertension Performed By: #### C MP, TSH3 wRFLX, LIPID, CBC #### [address] MCH (RBC) [Entitic mass] 33.3 pg Normal 24.7-34.3 [facility] Comment on above: Order Comment: Reaso n for Exam Benign essential hypertension Performed By: #### C MP, TSH3 wRFLX, LIPID, CBC #### [address] MCV (RBC) [Entitic vol] 97.1 fL Normal 80-100 [facility] Comment on above: Order Comment: Reaso n for Exam Benign essential hypertension Performed By: #### C MP, TSH3 wRFLX, LIPID, CBC #### [address] Mean Corpuscular HGB Conc 34.2 g/dL Normal 32.0-35.0 [facility] Comment on above: Order Comment: Reaso n for Exam Benign essential hypertension Performed By: #### C MP, TSH3 wRFLX, LIPID, CBC #### [place] [address] [place] Monocytes (Bld) [#/Vol] 0.4 10*3/uL Normal 0.0-0.8 [facility] Comment on above: Order Comment: Reaso n for Exam Benign essential hypertension Performed By: #### C MP, TSH3 wRFLX, LIPID, CBC #### [address] Monocytes/100 WBC (Bld) 11.5 % Normal . [facility] Comment on above: Order Comment: Reaso n for Exam Benign essential hypertension Performed By: #### C MP, TSH3 wRFLX, LIPID, CBC #### [place] [address] [place] Neutrophils (Bld) [#/Vol] 2.2 10*3/uL Normal 1.8-7.7 [facility] Comment on above: Order Comment: Reaso n for Exam Benign essential hypertension Performed By: #### C MP, TSH3 wRFLX, LIPID, CBC #### [address] Neutrophils/100 WBC (Bld) 57.8 % Normal . [facility] Comment on above: Order Comment: Reaso n for Exam Benign essential hypertension Performed By: #### C MP, TSH3 wRFLX, LIPID, CBC #### [facility] [address] NRBC% 0.3 /100{WBC} Normal 0-0.5 [facility] Comment on above: Order Comment: Reaso n for Exam Benign essential hypertension Performed By: #### C MP, TSH3 wRFLX, LIPID, CBC #### [facility] [address] Platelet mean volume (Bld) [Entitic vol] 7.1 fL Normal 6.3-10.7 [facility] Comment on above: Order Comment: Reaso n for Exam Benign essential hypertension Performed By: #### C MP, TSH3 wRFLX, LIPID, CBC #### [facility] [address] [place] [address] [place] Platelets (Bld) [#/Vol] 201 10*3/uL Normal 150-450 [facility] Comment on above: Order Comment: Reaso n for Exam Benign essential hypertension Performed By: #### C MP, TSH3 wRFLX, LIPID, CBC #### [address] RBC (Bld) [#/Vol] 4.03 10*6/uL Normal 3.60-5.00 [facility] Comment on above: Order Comment: Reaso n for Exam Benign essential hypertension Performed By: #### C MP, TSH3 wRFLX, LIPID, CBC #### [place] [address] [place] [address] [place] WBC (Bld) [#/Vol] 3.8 10*3/uL Normal 3.8-11.6 [facility] Comment on above: Order Comment: Reaso n for Exam Benign essential hypertension Performed By: #### C MP, TSH3 wRFLX, LIPID, CBC #### [facility] [address] [place] [address] Comprehensive Metabolic Pane mike 08-14-2023 Albumin [Mass/Vol] 4.8 g/dL Normal 3.5-5.7 [facility] Comment on above: Order Comment: Reaso n for Exam Benign essential hypertension Performed By: #### C MP, TSH3 wRFLX, LIPID, CBC #### [facility] [address] [place] [id number] [place] Albumin/Globulin [Mass ratio] 1.9 {ratio} Normal [facility] Comment on above: Order Comment: Reaso n for Exam Benign essential hypertension Performed By: #### C MP, TSH3 wRFLX, LIPID, CBC #### [facility] [address] [place] [id number] [place] ALP [Catalytic activity/Vol] 82 U/L Normal 34-104 [facility] Comment on above: Order Comment: Reaso n for Exam Benign essential hypertension Performed By: #### C MP, TSH3 wRFLX, LIPID, CBC #### [facility] [address] [place] [address] [place] ALT [Catalytic activity/Vol] 29 U/L Normal 7-52 [facility] Comment on above: Order Comment: Reaso n for Exam Benign essential hypertension Performed By: #### C MP, TSH3 wRFLX, LIPID, CBC #### [facility] [address] [id number] [facility] Anion gap [Moles/Vol] 14.5 mmol/L Normal 6.0-15.0 [facility] Comment on above: Order Comment: Reaso n for Exam Benign essential hypertension Performed By: #### C MP, TSH3 wRFLX, LIPID, CBC #### [facility] [address] [id number] [place] AST [Catalytic activity/Vol] 78 U/L High 13-39 [facility] Comment on above: Order Comment: Reaso n for Exam Benign essential hypertension Performed By: #### C MP, TSH3 wRFLX, LIPID, CBC #### [facility] [address] [id number] [place] Bilirubin [Mass/Vol] 0.5 mg/dL Normal 0.3-1.0 [facility] Comment on above: Order Comment: Reaso n for Exam Benign essential hypertension Performed By: #### C MP, TSH3 wRFLX, LIPID, CBC #### [facility] [address] [place] [address] [place] Calcium [Mass/Vol] 9.6 mg/dL Normal 8.6-10.3 [facility] Comment on above: Order Comment: Reaso n for Exam Benign essential hypertension Performed By: #### C MP, TSH3 wRFLX, LIPID, CBC #### [facility] [address] Chloride [Moles/Vol] 95 mmol/L Low 98-107 [facility] Comment on above: Order Comment: Reaso n for Exam Benign essential hypertension Performed By: #### C MP, TSH3 wRFLX, LIPID, CBC #### [facility] [address] [place] [address] [place] CO2 [Moles/Vol] 24.7 mmol/L Normal 21.0-31.0 [facility] Comment on above: Order Comment: Reaso n for Exam Benign essential hypertension Performed By: #### C MP, TSH3 wRFLX, LIPID, CBC #### [facility] [address] [place] [address] [place] Creatinine [Mass/Vol] 0.48 mg/dL Low 0.60-1.20 [facility] Comment on above: Order Comment: Reaso n for Exam Benign essential hypertension Performed By: #### C MP, TSH3 wRFLX, LIPID, CBC #### [facility] [address] [place] [address] [place] GFR/1.73 sq M.predicted MDRD (S/P/Bld) [Vol rate/Area] mL/min/{1.73_m2} Normal [facility] Comment on above: Order Comment: Reaso n for Exam Benign essential hypertension Performed By: #### C MP, TSH3 wRFLX, LIPID, CBC #### [facility] [address] [place] [address] [place] Globulin (S) [Mass/Vol] 2.5 g/dL Normal [facility] Comment on above: Order Comment: Reaso n for Exam Benign essential hypertension Performed By: #### C MP, TSH3 wRFLX, LIPID, CBC #### [facility] [address] [place] [address] [place] Glucose [Mass/Vol] 102 mg/dL High 70-100 [facility] Comment on above: Order Comment: Reaso n for Exam Benign essential hypertension Result Comment: [place] Glucose Reference Range is dependent on time and content of last meal. Glucose of more than 200 mg/dL in a nonstressed, ambulatory subject supports the diagnosis of Diabetes Mellitus. ADA recommended reference range Performed By: #### C MP, TSH3 wRFLX, LIPID, CBC #### [facility] [address] [place] [address] [place] Potassium [Moles/Vol] 4.2 mmol/L Normal 3.5-5.1 [facility] Comment on above: Order Comment: Reaso n for Exam Benign essential hypertension Performed By: #### C MP, TSH3 wRFLX, LIPID, CBC #### [facility] [address] [place] [address] [place] Protein [Mass/Vol] 7.3 g/dL Normal 6.4-8.9 [facility] Comment on above: Order Comment: Reaso n for Exam Benign essential hypertension Performed By: #### C MP, TSH3 wRFLX, LIPID, CBC #### [facility] [address] [id number] [place] Sodium [Moles/Vol] 130 mmol/L Low 136-145 [facility] Comment on above: Order Comment: Reaso n for Exam Benign essential hypertension Performed By: #### C MP, TSH3 wRFLX, LIPID, CBC #### [facility] [address] [id number] [place] Urea nitrogen [Mass/Vol] 5 mg/dL Low 7-25 [facility] Comment on above: Order Comment: Reaso n for Exam Benign essential hypertension Performed By: #### C MP, TSH3 wRFLX, LIPID, CBC #### [facility] [address] [id number] [place] Creatinine [Mass/volume] in Serum or PlasmaOrdered By: Avery Villegas on 08-14-2023 Creatinine [Mass/Vol] 0.48 mg/dL 0.60-1.20 [facility] Eosinophils Auto (Bld) [#/Vo l]Ordered By: Avery Villegas on 08-14-2023 Eosinophils (Bld) [#/Vol] 0.0 10*3/uL 0.0-0.45 [facility] Eosinophils/100 WBC Auto (Bl d)Ordered By: Avery Villegas on 08-14-2023 Eosinophils/100 WBC (Bld) 1.0 % . [facility] Erythrocyte distribution wid th Auto (RBC) [Ratio]Ordered By: Avery Villegas on 08-14-2023 Erythrocyte distribution width (RBC) [Ratio] 14.2 % 11.9-15.3 [facility] Globulin Calc (S) [Mass/Vol] Ordered By: Avery Villegas on 08-14-2023 Globulin (S) [Mass/Vol] 2.5 g/dL [facility] Glucose [Mass/volume] in Ser um or PlasmaOrdered By: Avery Villegas on 08-14-2023 Glucose [Mass/Vol] 102 mg/dL 70-100 [facility] Comment on above: ADA recommended refe rence rangeRandom Glucose Reference Range is dependent on time and content of last meal. Glucose of more than 200 mg/dL in a nonstressed, ambulatory subject supports the diagnosis of Diabetes Mellitus. Hematocrit Auto (Bld) [Volum e fraction]Ordered By: Avery Villegas on 08-14-2023 Hematocrit (Bld) [Volume fraction] 39.2 % 34.0-46.4 [facility] Hemoglobin [Mass/volume] in BloodOrdered By: Avery Villegas on 08-14-2023 Hemoglobin (Bld) [Mass/Vol] 13.4 g/dL 11.8-15.4 [facility] Leukocytes [#/volume] correc rob for nucleated erythrocytes in Blood by Automated counOrdered By: Avery Villegas on 08-14-2023 WBC corrected for nucl RBC Auto (Bld) [#/Vol] 3.8 10*3/uL 3.8-11.6 [facility] Lipid Panelon 08-14-2023 Cholesterol [Mass/Vol] 333 mg/dL High 140-200 [facility] Comment on above: Order Comment: Reaso n for Exam Benign essential hypertension Result Comment: Chol less than 200 mg/dl low risk Chol 201-239 mg/dl borderline risk Chol 240 mg/dl and greater high risk Performed By: #### C MP, TSH3 wRFLX, LIPID, CBC #### [facility] [address] [place] [address] [place] Cholesterol in HDL [Mass/Vol] 130 mg/dL High 23-92 [facility] Comment on above: Order Comment: Reaso n for Exam Benign essential hypertension Result Comment: HDL CHOL ATP-III CLASSIFICATION Cardiovascular Risk HDL > or equal to 60 mg/dL LOW HDL < 40 mg/dL HIGH Performed By: #### C MP, TSH3 wRFLX, LIPID, CBC #### [facility] [address] Cholesterol.total/Chol esterol in HDL [Mass ratio] 2.6 {ratio} Normal <5.0 [facility] Comment on above: Order Comment: Reaso n for Exam Benign essential hypertension Performed By: #### C MP, TSH3 wRFLX, LIPID, CBC #### [facility] [address] [place] [address] [place] LDL Cholesterol,Calculated 181 mg/dL High 0-100 [facility] Comment on above: Order Comment: Reaso n for Exam Benign essential hypertension Result Comment: LDL ATP III CLASSIFICATION LDL less than 100 mg/dL Optimal LDL 100-129 mg/dL Near or above optimal LDL 130-159 mg/dL Borderline high LDL 160-189 mg/dL High LDL greater than 189 mg/dL Very high Performed By: #### C MP, TSH3 wRFLX, LIPID, CBC #### [facility] [address] [id number] [place] Triglyceride w/Reflex 111 mg/dL Normal 0-149 [facility] Comment on above: Order Comment: Reaso n for Exam Benign essential hypertension Result Comment: TRIG ATP III CLASSIFICATION TRIG less than 150 mg/dL Normal TRIG 150-199 mg/dL Borderline high TRIG 200-500 mg/dL High TRIG greater than 500 mg/dL Very high Standard traceable to the Center for Disease Conrtrol and Prevention (CDC) test method. Performed By: #### C MP, TSH3 wRFLX, LIPID, CBC #### [facility] [address] VLDL CHOLESTEROL 22 mg/dL Normal [facility] Comment on above: Order Comment: Qian brooks for Exam Benign essential hypertension Performed By: #### C MP, TSH3 wRFLX, LIPID, CBC #### [facility] [address] [place] [address] [place] Lymphocytes Auto (Bld) [#/Vo l]Ordered By: Avery Villegas on 08-14-2023 Lymphocytes (Bld) [#/Vol] 1.1 10*3/uL 1.00-4.8 [facility] Lymphocytes/100 WBC Auto (Bl d)Ordered By: Avery Villegas on 08-14-2023 Lymphocytes/100 WBC (Bld) 27.8 % . [facility] MCH Auto (RBC) [Entitic mass ]Ordered By: Avery Villegas on 08-14-2023 MCH (RBC) [Entitic mass] 33.3 pg 24.7-34.3 [facility] MCHC Auto (RBC) [Mass/Vol]Or dered By: Avery Villegas on 08-14-2023 MCHC (RBC) [Mass/Vol] 34.2 g/dL 32.0-35.0 [facility] MCV Auto (RBC) [Entitic vol] Ordered By: Avery Villegas on 08-14-2023 MCV (RBC) [Entitic vol] 97.1 fL 80-100 [facility] Monocytes Auto (Bld) [#/Vol] Ordered By: Avery Villegas on 08-14-2023 Monocytes (Bld) [#/Vol] 0.4 10*3/uL 0.0-0.8 [facility] Monocytes/100 WBC Auto (Bld) Ordered By: Avery Villegas on 08-14-2023 Monocytes/100 WBC (Bld) 11.5 % . [facility] Neutrophils Auto (Bld) [#/Vo l]Ordered By: Avery Villegas on 08-14-2023 Neutrophils (Bld) [#/Vol] 2.2 10*3/uL 1.8-7.7 [facility] Neutrophils/100 WBC Auto (Bl d)Ordered By: Avery Villegas on 08-14-2023 Neutrophils/100 WBC (Bld) 57.8 % . [facility] No Panel InformationOrdered By: Avery Villegas on 08-14-2023 Estimated GFR (CKD-EPI) > 60.0 mL/Min [facility] Creatinine Clearance (Chem N/A [facility] Nucleated erythrocytes [Pres ence] in Blood by Automated countOrdered By: Avery Villegas on 08-14-2023 Nucleated RBC Auto Ql (Bld) 0.3 /100{WBC} 0-0.5 [facility] Platelet mean volume Auto (B ld) [Entitic vol]Ordered By: Avery Villegas on 08-14-2023 Platelet mean volume (Bld) [Entitic vol] 7.1 fL 6.3-10.7 [facility] Platelets Auto (Bld) [#/Vol] Ordered By: Avery Villegas on 08-14-2023 Platelets (Bld) [#/Vol] 201 10*3/uL 150-450 [facility] Potassium [Moles/volume] in Serum or PlasmaOrdered By: Avery Villegas on 08-14-2023 Potassium [Moles/Vol] 4.2 mmol/L 3.5-5.1 [facility] Protein [Mass/volume] in Ser um or PlasmaOrdered By: Avery Villegas on 08-14-2023 Protein [Mass/Vol] 7.3 g/dL 6.4-8.9 [facility] RBC Auto (Bld) [#/Vol]Ordere d By: Avery Villegas on 08-14-2023 RBC (Bld) [#/Vol] 4.03 10*6/uL 3.60-5.00 [facility] Serum or plasma albumin/glob ulin mass ratioOrdered By: Avery Villegas on 08-14-2023 Albumin/Globulin [Mass ratio] 1.9 {ratio} [facility] Serum or plasma anion gap de terminationOrdered By: Avery Villegas on 08-14-2023 Anion gap [Moles/Vol] 14.5 mmol/L 6.0-15.[address] [facility] Serum or plasma high density lipoprotein (HDL) cholesterol measurementOrdered By: Avery Villegas on 08-14-2023 Cholesterol in HDL [Mass/Vol] 130 mg/dL 23-92 [facility] Comment on above: HDL CHOL ATP-III CLA SSIFICATION Cardiovascular RiskHDL > or equal to 60 mg/dL LOWHDL < 40 mg/dL HIGH Serum or plasma total choles terol/high density lipoprotein (HDL) cholesterol mass ratOrdered By: Avery Villegas on 08-14-2023 Cholesterol.total/Chol esterol in HDL [Mass ratio] 2.6 {ratio} <5.0 [facility] Sodium [Moles/volume] in Ser um or PlasmaOrdered By: Avery Villegas on 08-14-2023 Sodium [Moles/Vol] 130 mmol/L 136-145 [facility] Thyroid Stim Hormone w/Rflxo n 08-14-2023 Thyroid Stim Hormone w/Rflx 1.86 u[iU]/mL Normal 0.45-5.33 [facility] Comment on above: Order Comment: Reaso n for Exam Benign essential hypertension Result Comment: PERF ORMED BY: [place] [address] PATHOLOGIST RETIREMENT ADMINISTRATOR OSMEL BLUE M.D. Performed By: #### C MP, TSH3 wRFLX, LIPID, CBC #### [address] Thyrotropin [Units/volume] i n Serum or PlasmaOrdered By: Avery Villegas on 08-14-2023 TSH Qn 1.86 m[IU]/L 0.45-5.33 [facility] Triglyceride [Mass/volume] i n Serum or PlasmaOrdered By: Avery Villegas on 08-14-2023 Triglyceride [Mass/Vol] 111 mg/dL 0-149 [facility] Comment on above: TRIG ATP III CLASSIF ICATIONTRIG less than 150 mg/dL NormalTRIG 150-199 mg/dL Borderline highTRIG 200-500 mg/dL High TRIG greater than 500 mg/dL Very highStandard traceable to the Center for Disease Conrtrol and Prevention (CDC) test method. Urea nitrogen [Mass/volume] in Serum or PlasmaOrdered By: Avery Villegas on 08-14-2023 Urea nitrogen [Mass/Vol] 5 mg/dL 7-25 [facility] WBC Auto (Bld) [#/Vol]Ordere d By: Avery Villegas on 08-14-2023 WBC (Bld) [#/Vol] 3.8 10*3/uL 3.8-11.6 [facility] HbA1c HPLC (Bld) [Mass fract ion]on 06-14-2023 HbA1c (Bld) [Mass fraction] 4.7 % [facility] No Panel Informationon 06-13 Bedside Glucose 110 [facility] A1C HEMOGLOBINon 03-27-2023 HbA1c (Bld) [Mass fraction] 10.6 % [facility] Other Glucose - FINGER STICKon Glucose [Mass/Vol] 95 mg/dL [facility] Other HbA1c (Bld) [Mass fraction]o n 03-27-[address] [facility] Other Consent for Treatmenton 10-07 Consent for Treatment [id number]:12 7 Normal [facility] Discharge Instructionson Discharge Instructions [id number]: 127 Normal [facility] ED Clinical Summaryon 2022 ED Clinical Summary (Inserted Image. Jackie ble to display) [place] [id number] ED Clinical Summary Person Information Name: SHIKHA LOERA/[facility] Age: 37 Years : 1985 Sex: Female Language: Surinamese PCP: NONE, XXXX Marital Status: Visit Id: Visit Reason: Rib/trunk pain-swelling; LT SIDE RIB PAIN Speciality: Acuity: 4 Enc Type: Emergency Med Service: Emergency Arrival: 10/21/2022 06:56:51 Discharge: 10/21/2022 08:36:05 LOS: 000 01:40 Checkin: 10/21/2022 06:56:51 Checkout: 10/21/2022 08:36:05 Dispo Type: Home (Routine DC) EVENTS: Event Name Event Status Request Date/Time Start Date/Time Complete Date/Time Arrive Complete 10/21/2022 06:56:51 10/21/2022 06:56:51 10/21/2022 06:56:51 Document Home Meds Request 10/21/2022 06:56:51 Triage Complete 10/21/2022 06:56:51 10/21/2022 07:13:23 10/21/2022 07:13:23 Bed Assign Complete 10/21/2022 07:03:26 10/21/2022 07:03:26 10/21/2022 07:03:26 Dr Exam Complete 10/21/2022 07:03:26 10/21/2022 07:06:16 10/21/2022 07:06:16 RN Exam Complete 10/21/2022 07:03:26 10/21/2022 07:15:36 10/21/2022 07:15:36 Registration Complete 10/21/2022 07:06:16 10/21/2022 07:15:21 10/21/2022 07:15:21 Reg Complete Request 10/21/2022 07:15:21 Reg Bed Request Complete 10/21/2022 07:15:21 10/21/2022 07:15:21 10/21/2022 07:15:21 EKG Complete 10/21/2022 07:17:01 10/21/2022 07:30:16 X-Ray Complete 10/21/2022 07:17:01 10/21/2022 07:21:56 10/21/2022 07:44:58 Wet Read Request 10/21/2022 07:44:58 Discharge Complete 10/21/2022 08:28:00 10/21/2022 08:36:13 10/21/2022 08:36:13 Transfer Complete 10/21/2022 08:36:13 10/21/2022 08:36:13 10/21/2022 08:36:13 ADDRESS: [address] [place] [address] [place] [id number] PHYS DOC NOTES: MEDICAL INFORMATION: Prescriptions Given: New Medications [id number], [address] [id number], [phone] cyclobenzaprine (cyclobenzaprine 5 mg Tab) 1 Tablets By Mouth 3 times a day as needed Muscle pain. Refills: 0. lidocaine topical (Lidoderm 5% Patch) 1 Patches Topical every day. apply 12 hours on and 12 hours off daily. Refills: 0. naproxen (naproxen 500 mg Tab) 1 Tablets By Mouth 2 times a day as needed for pain. Refills: 0. Medications to Continue with No Changes Other Medications acetaminophen-hydrocodone ([place] 325 mg-5 mg oral tablet) 1 Tablets By Mouth every 6 hours as needed for pain. Refills: 0. PATIENT EDUCATION INFORMATION: Instructions: Rib Contusion Follow up: With: Address: When: Sofia Ambriz In 3 days 10/24/2022 Comments: Call the office of your primary care doctor to arrange for follow-up within the above-stated timeframe. Follow-up with your primary care doctor about this ED visit. You should review your labs, imaging, and diagnoses from this ED visit with your primary care physician. There are occasionally non-emergent findings that require additional follow-up after your ED visit. If you were prescribed medications you should discuss possible side-effects and drug interactions with your pharmacist. Call 911 or go to the nearest Emergency Department if you develop any new or worsening symptoms. Seek immediate medical attention if you develop: worsening chest pain, new chest pain, nausea, vomiting, weakness, numbness, tingling, excessive sweating, shortness of breath, difficulty breathing, loss of motion in your arms or legs, or any new or worsening symptoms. DIAGNOSIS: Contusion of rib Normal [facility] ED Note-Physicianon 10-22-19 ED Note-Physician Basic Information Time Seen: Thanh Bal DO 10/21/2022 07:06 Chief Complaint Patient presents with left sided rib pain for 4 days and hit ribs in the middle of the night 4 days ago History of Present Illness 37-year-old female to the emergency department chief complaint of left-sided rib pain for for last 4 days. Patient reports that 4 days ago she was under the influence of Ativan while admitted in the hospital and hit her left-sided ribs on a bed. She reports that she has had pain with lifting since that time. She denies any chest pain or shortness of breath. She is otherwise at her baseline health. Review of Systems A 10 point review of systems is negative except as noted above. Medical and Surgical History: Reviewed and noted Social history: Lives at home Tobacco: Denies Physical Exam Vitals & Measurements T: 37.0 ?C(Oral) HR: 105(Peripheral) RR: 18 BP: 161/112 SpO2: 97% HT: 167.64 cm WT: 61.5 kg BMI: 21.88 VITALS: I have reviewed the triage vital signs. GENERAL: Well developed, well appearing adult in no acute distress. NEURO: Alert and oriented. Moves all extremities. Face is symmetric and expressive. EYES: PERRL. No scleral icterus or conjunctival injection. No discharge. HENT: Normocephalic, atraumatic. Hearing is grossly intact. Nares grossly patent and without discharge. Mucous membranes moist. NECK: No JVD. Patient moves neck without restriction. CARDIO: Rhythm regular. Normal rate. No murmur, rub, or gallop. Pulses equal bilaterally in the upper and lower extremity. No lower extremity edema. Tenderness to the left lower lateral ribs without crepitus, deformity, ecchymosis PULM: Lungs clear to auscultation in all varghese. No wheezes, rales, or rhonchi. No conversational dyspnea. No splinting, stridor, or accessory muscle use. GI/: Abdomen is soft and non-tender. Normoactive bowel sounds. EXTREMITIES: Symmetric muscle bulk. No joint swelling. No clubbing, cyanosis, or deformity. SKIN: Warm and dry. Normal turgor. No rash or lesions appreciated. PSYCH: Mood, affect, and interaction is appropriate to the setting. Medical Decision Making 37-year-old female to the emergency department chief complaint of wound pain after injury. Vital stable, the patient is afebrile. X-ray imaging is ordered. EKG ordered. EKG without evidence of acute ischemia Chest x-ray with rib series without obvious rib fracture. Casey with the patient rib fracture versus rib contusion. We discussed that therapy is similar for both. No obvious fracture visualized at this time however we discussed possibility. She will be sent home on Flexeril, naproxen, lidocaine patch. Return precautions discussed. All questions were answered. The patient was discharged home. Assessment/Plan Contusion of rib (S20.219A: Contusion of unspecified front wall of thorax, initial encounter) Orders: cyclobenzaprine, 5 mg = 1 tab(s), Oral, TID, PRN Muscle pain, # 21 tab(s), Refills(s) 0, Pharmacy: [facility]/pharmacy #[id number], 167.6, cm, 10/21/22 7:13:00 EDT, Height/Length Dosing, 61.5, kg, 10/21/22 7:13:00 EDT, Weight Dosing lidocaine topical, 1 patch(es), Topical, Daily, 7 EA, Refill(s) 0, apply 12 hours on and 12 hours off daily, [facility]/pharmacy #[id number], 167.6, cm, 10/21/22 7:13:00 EDT, Height/Length Dosing, 61.5, kg, 10/21/22 7:13:00 EDT, Weight Dosing naproxen, 500 mg = 1 tab(s), Oral, BID, PRN for pain, # 20 tab(s), Refills(s) 0, Pharmacy: [facility]/pharmacy #[id number], 167.6, cm, 10/21/22 7:13:00 EDT, Height/Length Dosing, 61.5, kg, 10/21/22 7:13:00 EDT, Weight Dosing ECG 12 Lead Adult XR Ribs Unilat 3 Views Left w/ PA Chest Disposition Plan Patient Discharge Condition Stable Discharge Disposition Home Discharge Prescription List Prescriptions cyclobenzaprine 5 mg Tab, 5 mg= 1 tab(s), Oral, TID, PRN Lidoderm 5% Patch, 1 patch(es), Topical, Daily naproxen 500 mg Tab, 500 mg= 1 tab(s), Oral, BID, PRN Follow-up With When Contact Information Sofia Ambriz In 3 days 10/24/2022 EDT Additional Instructions: Call the office of your primary care doctor to arrange for follow-up within the above-stated timeframe. Follow-up with your primary care doctor about this ED visit. You should review your labs, imaging, and diagnoses from this ED visit with your primary care physician. There are occasionally non-emergent findings that require additional follow-up after your ED visit. If you were prescribed medications you should discuss possible side-effects and drug interactions with your pharmacist. Call 911 or go to the nearest Emergency Department if you develop any new or worsening symptoms. Seek immediate medical attention if you develop: worsening chest pain, new chest pain, nausea, vomiting, weakness, numbness, tingling, excessive sweating, shortness of breath, difficulty breathing, loss of motion in your arms or legs, or any new or worsening symptoms. Patient Education Rib Contusion Problem List/Past Medical History Ongoing No qualifying data Historical No q (more content not included)... Normal [facility] Comment on above: Result Comment: Elec tronically Signed By: Thanh Bal DO\.br\Date and Time Signed: 10/21/22 15:19 EDT ED Patient Education Noteon 10-21-2022 ED Patient Education Note Orthopedics Rib Contusion A rib contusion is a deep bruise on the rib area. Contusions are the result of a blunt trauma that causes bleeding and injury to the tissues under the skin. A rib contusion may involve bruising of the ribs and of the skin and muscles in the area. The skin over the contusion may turn blue, purple, or yellow. Minor injuries result in a painless contusion. More severe contusions may be painful and swollen for a few weeks. What are the causes? This condition is usually caused by a hard, direct hit to an area of the body. This often occurs while playing contact sports. What are the signs or symptoms? Symptoms of this condition include: ? Swelling and redness of the injured area. ? Discoloration of the injured area. ? Tenderness and soreness of the injured area. ? Pain with or without movement. ? Pain when breathing in. How is this diagnosed? This condition may be diagnosed based on: ? Your symptoms and medical history. ? A physical exam. ? Imaging tests?such as an X-ray, CT scan, or MRI?to determine if there were internal injuries or broken bones (fractures). How is this treated? This condition may be treated with: ? Rest. This is often the best treatment for a rib contusion. ? Ice packs. This reduces swelling and inflammation. ? Deep-breathing exercises. These may be recommended to reduce the risk for lung collapse and pneumonia. ? Medicines. Auho-eer-[id number] or prescription medicines may be given to control pain. ? Injection of a numbing medicine around the nerve near your injury (nerve block). Follow these instructions at home: Medicines ? Take [id number] and prescription medicines only as told by your health care provider. ? Ask your health care provider if the medicine prescribed to you: ? Requires you to avoid driving or using machinery. ? Can cause constipation. You may need to take these actions to prevent or treat constipation: ? Drink enough fluid to keep your urine pale yellow. ? Take mrfc-mij-ucarfje or prescription medicines. ? Eat foods that are high in fiber, such as beans, whole grains, and fresh fruits and vegetables. ? Limit foods that are high in fat and processed sugars, such as fried or sweet foods. Managing pain, stiffness, and swelling If directed, put ice on the injured area. To do this: ? Put ice in a plastic bag. ? Place a towel between your skin and the bag. ? Leave the ice on for 20 minutes, 2?3 times a day. ? Remove the ice if your skin turns bright red. This is very important. If you cannot feel pain, heat, or cold, you have a greater risk of damage to the area. Activity ? Rest the injured area. ? Avoid strenuous activity and any activities or movements that cause pain. Be careful during activities, and avoid bumping the injured area. ? Do not lift anything that is heavier than 5 lb (2.3 kg), or the limit that you are told, until your health care provider says that it is safe. General instructions ? Do not use any products that contain nicotine or tobacco, such as cigarettes, e-cigarettes, and chewing tobacco. These can delay healing. If you need help quitting, ask your health care provider. ? Do deep-breathing exercises as told by your health care provider. ? If you were given an incentive spirometer, use it every 1?2 hours while you are awake, or as recommended by your health care provider. This device measures how well you are filling your lungs with each breath. ? Keep all follow-up visits. This is important. Contact a health care provider if you have: ? Increased bruising or swelling. ? Pain that is not controlled with treatment. ? A fever. Get help right away if you: ? Have difficulty breathing or shortness of breath. ? Develop a continual cough, or you cough up thick or bloody mucus from your lungs (sputum). ? Feel nauseous or you vomit. ? Have pain in your abdomen. These symptoms may represent a serious problem that is an emergency. Do not wait to see if the symptoms will go away. Get medical help right away. Call your local emergency services (911 in the [place] Do not drive yourself to the hospital. Summary ? A rib contusion is a deep bruise on your rib area. Contusions are the result of a blunt trauma that causes bleeding and injury to the tissues under the skin. ? The skin over the contusion may turn blue, purple, or yellow. Minor injuries may cause a painless contusion. More severe contusions may be painful and swollen for a few weeks. ? Rest the injured area. Avoid strenuous activity and any activities or movements that cause pain. This information is not intended to replace advice given to you by your health care provider. Make sure you discuss any questions you have with your health care provider. Document Revised: 06/30/2020 Document Reviewed: 06/30/2020 [employer] Patient Education ? 2022 [employer]. Normal [facility] ED Patient Summaryon 023 ED Patient Summary (Inserted Image. Jackie ble to display) [place] [id number] Patient Discharge Instructions Person Information Name: SHIKHA LOERA Age: 37 Years Arrival Date: 10/21/2022 06:56:51 Discharge Diagnosis: Contusion of rib Primary Care Physician: NONE, XXXX Provider Information Primary Provider: Thanh Bal DO Advanced Label Printer:None The exam and treatment you received in the Emergency Department were for an urgent problem and are not intended as complete care. It is important that you follow up with a doctor, nurse practitioner, or physician?s ward assistant for ongoing care. If your symptoms become worse or you do not improve as expected and you are unable to reach your usual health care provider, you should return to the Emergency Department. We are available 24 hours a day. SHIKHA LOERA has been given the following list of patient education materials, prescriptions and follow-up instructions: Follow-up Instructions: With: Address: When: Sofia Ambriz In 3 days 10/24/2022 Comments: Call the office of your primary care doctor to arrange for follow-up within the above-stated timeframe. Follow-up with your primary care doctor about this ED visit. You should review your labs, imaging, and diagnoses from this ED visit with your primary care physician. There are occasionally non-emergent findings that require additional follow-up after your ED visit. If you were prescribed medications you should discuss possible side-effects and drug interactions with your pharmacist. Call 911 or go to the nearest Emergency Department if you develop any new or worsening symptoms. Seek immediate medical attention if you develop: worsening chest pain, new chest pain, nausea, vomiting, weakness, numbness, tingling, excessive sweating, shortness of breath, difficulty breathing, loss of motion in your arms or legs, or any new or worsening symptoms. In the event that this physician does not participate in your insurance network, please consult with your insurance company to find a nearby participating provider. Patient Education Materials: Rib Contusion A MESSAGE TO ALL PATIENTS REGARDING OPIOIDS PRESCRIPTION OPIOIDS: WHAT YOU NEED TO KNOW Prescription opioids can be used to help relieve svrnfxju-le-tqgskb pain and are often prescribed following a surgery or injury, or for certain health conditions. These medications can be an important part of the treatment but also come with serious risks. It is important to work with your healthcare provider to make sure you are getting the safest, most effective care. WHAT ARE THE RISKS AND SIDE EFFECTS OF OPIOID USE? Prescription opioids carry serious risks of addiction and overdose, especially with prolonged use. An opioid overdose, often marked by slowed breathing, can cause sudden . The use of prescription opioids can have a number of side effects as well, even when taken as directed: ? Tolerance?meaning you might need to take more of the medication for the same pain relief ? Physical dependence?meaning you have symptoms of withdrawal when a medication is stopped ? Increased sensitivity to pain ? Constipation ? Nausea, vomiting, and dry mouth ? Sleepiness and dizziness ? Confusion ? Depression ? Low levels of testosterone that can result in lower sex drive, energy, and strength ? Itching and sweating RISKS ARE GREATER WITH: ? History of drug misuse, substance use disorder, or overdose ? Mental health conditions (such as depression or anxiety) ? Sleep apnea ? Older age (65 years and older) ? Avoid alcohol while taking prescription opioids. Also, unless specifically advised by your health care provider, medications to avoid include: ? Benzodiazepines (such as Xanax or Valium) ? Muscle relaxants (such as Soma or Flexeril) ? Hypnotics (such as Ambien or Lunesta) ? Other prescription opioids KNOW YOUR OPTIONS Talk to your health care provider about ways to manage your pain that don?t involve prescription opioids. Some of these options may actually work better and have fewer risks and side effects. Options may include: ? Pain relievers such as acetaminophen, ibuprofen, and naproxen ? Some medication that are also used for depression or seizures ? Physical therapy and exercise ? Cognitive behavioral therapy, a psychological, goal-directed approach, in which patients learn how to modify physical, behavioral, and emotional triggers of pain and stress. IF YOU ARE PRESCRIBED OPIOIDS FOR PAIN: ? Never take opioids in greater amounts or more often than prescribed. ? Follow up with your primary health care provider. o Work together to create a plan on how to manage your pain. o Talk about ways to help manage your pain that don?t involve prescription opioids. o Talk about any and all concerns and side effects. ? Help prevent misuse and ab (more content not included)... Normal [facility] XR Ribs Unilat 3 Views Left w/ PA Cheston 10-21-2022 XR Ribs Unilat 3 Views Left w/ PA Chest Exam Date/Time: 10/21/2022 07:44 EDT Reason for Exam: Pain, Traumatic Report IMPRESSION: Left-sided rib fractures of the sixth through eighth ribs, with at least the eighth rib fracture recent appearing. Other fractures may be chronic. Correlate for point tenderness. No pneumothorax. EXAMINATION/TECHNIQUE: XR Ribs Unilat 3 Views Left w/ PA Chest HISTORY: Fall with left lower rib pain. COMPARISON: None RESULT: No consolidation. No pleural effusion. No pneumothorax. Normal cardiomediastinal silhouette. Nondisplaced fractures involving the left sixth, seventh, and eighth ribs, with at least the eighth rib fracture appearing recent. No other significant abnormality. Ordering Provider: Thanh Bal FINAL REPORT Dictated: 10/21/2022 9:59 am Dariel Morejon MD Signed (Electronic Signature): 10/21/2022 9:59 am Signed by: Dariel Morejon MD Transcribed by: BENNY Technologist: JAYLA Technical Comments Radiation Dose: julito Tai in mGy = na DAP = na Wet Read 10/21/2022 09:58 am EDT, Jean-Pierre OROURKE, Dariel Carroll, MARTHA left rib fractures 6-8. 8th appears recent, others may be chronic. No pneumothorax. Normal [facility] AMYLASEon 03-26-2022 Amylase [Catalytic activity/Vol] 20 U/L Critically low 25-115 [facility] Comment on above: Performed By: #### L IPA, MADDY, CMP #### [facility] [address] [place] [address] Dr. Angela Aguero CBC W MANUAL DIFFon 03-26-20 22 ATYPICAL LYMPH # Normal [facility] Comment on above: Performed By: #### L IPA, MADDY, CMP #### [facility] [address] [place] [address] Dr. Angela Aguero ATYPICAL LYMPH % Normal [facility] Comment on above: Performed By: #### L IPA, MADDY, CMP #### [facility] [address] [place] [address] Dr. Angela Aguero BAND # 0.0 103/ul Normal 0.0-0.3 [facility] Comment on above: Performed By: #### L IPA, MADDY, CMP #### [facility] [address] [place] [address] Dr. Angela Aguero BAND % 0 % Normal 0-5 [facility] Comment on above: Performed By: #### L IPA, MADDY, CMP #### [facility] [address] [place] [address] Dr. Angela Aguero BASOM # 0.07 103/ul Normal 0.00-0.10 [facility] Comment on above: Performed By: #### L IPA, MADDY, CMP #### [facility] [address] [place] [address] Dr. Angela Aguero BASOM % 1.0 % Normal 0.2-2.0 [facility] Comment on above: Performed By: #### L IPA, MADDY, CMP #### [facility] [address] [place] [address] Dr. Angela Aguero BLAST # Normal [facility] Comment on above: Performed By: #### L IPA, MADDY, CMP #### [facility] [address] [address] [address] Angela Aguero BLAST % Normal [facility] Comment on above: Performed By: #### L MADDY SMITH, CMP #### [facility] [address] [address] [address] Angela Aguero CORRECTED WBC Normal 4.0-11.0 [facility] Comment on above: Performed By: #### L MADDY SMITH, CMP #### [facility] [address] [place] [address] [address] Angela Aguero EOS # 0.00 103/ul Normal 0.00-0.70 [facility] Comment on above: Performed By: #### L MADDY SMITH, CMP #### [facility] [address] [address] [address] Angela Aguero EOS% 0.0 % Critically low 0.9-7.[address] [facility] Comment on above: Performed By: #### L MADDY SMITH, CMP #### [facility] [address] [place] [address] Dr. Angela Aguero HCT 42.7 % Normal 36.0-48.0 [facility] Comment on above: Performed By: #### L MADDY SMITH, CMP #### [facility] [address] [address] [address] Angela Aguero HGB 15.0 g/dl Normal 12.0-16.0 [facility] Comment on above: Performed By: #### L MADDY SMITH, CMP #### [facility] [address] [address] [address] Angela Aguero LYMPHM # 0.28 103/ul Critically low 1.20-3.80 [facility] Comment on above: Performed By: #### L LUIS MADDY, CMP #### [facility] [address] [address] [address] Angela Aguero LYMPHM% 4.0 % Critically low 20.5-60.[address] [facility] Comment on above: Performed By: #### L LUIS MADDY, CMP #### [facility] [address] [address] [address] Angela Aguero MCH 34.1 pg Critically high 26.7-34.0 [facility] Comment on above: Performed By: #### L IPA, MADDY, CMP #### [facility] [address] [place] [address] Dr. Angela Aguero MCHC 35.1 g/dl Normal 29.9-35.2 [facility] Comment on above: Performed By: #### L IPA, MADDY, CMP #### [facility] [address] [place] [address] Dr. Angela Aguero MCV 97.0 fL Normal 81.0-99.0 [facility] Comment on above: Performed By: #### L IPA MADDY, CMP #### [facility] [address] [place] [address] Dr. Angela Aguero METAMYELOCYTE # Normal [facility] Comment on above: Performed By: #### L IPA MADDY, CMP #### [facility] [address] [place] [address] Dr. Angela Aguero METAMYELOCYTE % Normal [facility] Comment on above: Performed By: #### L IPA MADDY, CMP #### [facility] [address] [place] [address] Dr. Angela Aguero MONOM# 0.21 103/ul Critically low 0.30-0.80 [facility] Comment on above: Performed By: #### L IPA, MADDY, CMP #### [facility] [address] [place] [address] Dr. Angela Aguero MONOM% 3.0 % Normal 1.7-12.0 [facility] Comment on above: Performed By: #### L IPA, MADDY, CMP #### [facility] [address] [place] [address] Dr. Angela Aguero MPV 9.4 fL Critically low 9.5-13.5 [facility] Comment on above: Performed By: #### L IPA, MADDY, CMP #### [facility] [address] [place] [address] Dr. Angela Aguero MYELOCYTE # Normal [facility] Comment on above: Performed By: #### L IPA, MADDY, CMP #### [facility] [address] [address] [address] Angela Aguero MYELOCYTE % Normal [facility] Comment on above: Performed By: #### L IPA, MADDY, CMP #### [facility] [address] [address] [address] Angela Aguero NRBC Normal [facility] Comment on above: Performed By: #### L IPA, MADDY, CMP #### [facility] [address] [address] [address] Angela Aguero PLT 252 103/ul Normal 150-450 [facility] Comment on above: Performed By: #### L IPA, MADDY, CMP #### [facility] [address] [address] [address] Angela Aguero RBC 4.40 106/ul Normal 4.20-5.40 [facility] Comment on above: Performed By: #### L IPA, MADDY, CMP #### [facility] [address] [address] [address] Angela Aguero RDW 11.3 % Normal 11.0-15.0 [facility] Comment on above: Performed By: #### L IPA, MADDY, CMP #### [facility] [address] [address] [address] Angela Aguero SEG # 6.44 103/ul Normal 1.40-6.50 [facility] Comment on above: Performed By: #### L IPA, MADDY, CMP #### [facility] [address] [address] [address] Angela Aguero SEG % 92.0 % Critically high 43.0-75.0 [facility] Comment on above: Performed By: #### L IPA, MADDY, CMP #### [facility] [address] [address] [address] Angela Aguero WBC 7.0 103/ul Normal 4.0-11.0 [facility] Comment on above: Performed By: #### L IPA, MADDY, CMP #### [facility] [address] [place] [address] Dr. Angela Aguero ETHANOL (BLD ALC)on 03-26-20 22 ALC NOTE NOTE: 80 mg/dl is th e legal limit for a blood alcohol level Normal [facility] Comment on above: Performed By: #### L MADDY SMITH, CMP #### [facility] [address] [place] [address] Dr. Angela Aguero Ethanol [Mass/Vol] mg/dL Normal [facility] Comment on above: Performed By: #### L MADDY SMITH, CMP #### [facility] [address] [place] [address] Dr. Angela Aguero LIPASEon 03-26-2022 Lipase [Catalytic activity/Vol] 43.0 U/L Critically low 73.0-393.0 [facility] Comment on above: Performed By: #### L MADDY SMITH, CMP #### [facility] [address] [place] [address] Dr. Angela Aguero PROF 14(COMP METB)on Albumin [Mass/Vol] 3.9 g/dL Normal 3.4-5.0 [facility] Comment on above: Performed By: #### L MADDY SMITH, CMP #### [facility] [address] [place] [address] Dr. Angela Aguero Albumin/Globulin [Mass ratio] 0.9 {ratio} Normal [facility] Comment on above: Performed By: #### L MADDY SMITH, CMP #### [facility] [address] [place] [address] Dr. Angela Aguero ALP [Catalytic activity/Vol] 129 U/L Critically high 46-116 [facility] Comment on above: Performed By: #### L MADDY SMITH, CMP #### [facility] [address] [place] [address] Dr. Angela Aguero ALT [Catalytic activity/Vol] 143 U/L Critically high 14-59 [facility] Comment on above: Performed By: #### L MADDY SMITH, CMP #### [facility] [address] [place] [address] Dr. Angela Aguero Anion gap [Moles/Vol] 16.4 mmol/L Normal [facility] Comment on above: Performed By: #### L MADDY SMITH, CMP #### [facility] [address] [address] [address] Angela Aguero AST [Catalytic activity/Vol] 306 U/L Critically high 15-37 [facility] Comment on above: Performed By: #### L MADDY SMITH, CMP #### [facility] [address] [place] [address] Dr. Angela Aguero Bilirubin [Mass/Vol] 1.7 mg/dL Critically high 0.2-1.0 [facility] Comment on above: Performed By: #### L MADDY SMITH, CMP #### [facility] [address] [place] [address] Dr. Angela Aguero Calcium [Mass/Vol] 9.4 mg/dL Normal 8.5-10.1 [facility] Comment on above: Performed By: #### L MADDY SMITH, CMP #### [facility] [address] [place] [address] Dr. Angela Aguero Chloride [Moles/Vol] 99 mmol/L Normal 98-107 [facility] Comment on above: Performed By: #### L MADDY SMITH, CMP #### [facility] [address] [place] [address] Dr. Angela Aguero CO2 [Moles/Vol] 25.9 mmol/L Normal 21.0-32.0 [facility] Comment on above: Performed By: #### L MADDY SMITH, CMP #### [facility] [address] [place] [address] Dr. Angela Aguero Creatinine [Mass/Vol] 0.82 mg/dL Normal 0.55-1.02 [facility] Comment on above: Performed By: #### L MADDY SMITH, CMP #### [facility] [address] [place] [address] Dr. Angela Aguero EGFR-AF BULGARIAN >60 Normal >=60 [facility] Comment on above: Performed By: #### L MADDY SMITH, CMP #### [facility] [address] [address] [address] Angela Aguero EGFR-NON AF BULGARIAN >60 Normal >=60 [facility] Comment on above: Performed By: #### L MADDY SMITH, CMP #### [facility] [address] [address] [address] Angela Aguero Globulin (S) [Mass/Vol] 4.4 g/dL Normal [facility] Comment on above: Performed By: #### L MADDY SMITH, CMP #### [facility] [address] [address] [address] Angela Aguero Glucose [Mass/Vol] 207 mg/dL Critically high 74-106 [facility] Comment on above: Performed By: #### L MADDY SMITH, CMP #### [facility] [address] [place] [address] Dr. Angela Aguero Potassium [Moles/Vol] 3.3 mmol/L Critically low 3.5-5.1 [facility] Comment on above: Performed By: #### L MADDY SMITH, CMP #### [facility] [address] [address] [address] Angela Aguero Protein [Mass/Vol] 8.3 g/dL Critically high 6.4-8.2 [facility] Comment on above: Performed By: #### L MADDY SMITH, CMP #### [facility] [address] [place] [address] Dr. Angela Aguero Sodium [Moles/Vol] 138 mmol/L Normal 136-145 [facility] Comment on above: Performed By: #### L MADDY SMITH, CMP #### [facility] [address] [place] [address] Dr. Angela Aguero Urea nitrogen [Mass/Vol] 5.0 mg/dL Critically low 7.0-18.0 [facility] Comment on above: Performed By: #### L MADDY SMITH, CMP #### [facility] [address] [place] [address] Dr. Angela Aguero Urea nitrogen/Creatinine [Mass ratio] 6.1 mg/mg [facility] Comment on above: Performed By: #### L MADDY SMITH, CMP #### [facility] [address] [place] [address] Dr. Angela Aguero Coding Summary.on 02-06-2022 Coding Summary. CD:[id number] Gh0bW w+PGhlYWQ+LN6BIYOiB87uuKD rzF1NR4yBCY1BCVVFCAYSZG6A MZ4odWZ1HHooM1VbiyWe WgpwuDJoOM72LBo6TYH8lTxxT CgowV4yfLAgM6t2CgIwZI22hQ 43QOmpMATgNwE0HwSrowauuHW y J1ggDoNnoRKyDlr+PHRhYmxlI HdpZHRoPScxMDAlJyBzdHlsZT 9cJz3tBVKdGJTklWyalJZhSvO j c1ypBVYtLPxjUW8whOfsT6Uoy WM6UDLka6t0Pr79cYJ+PHRkIH B1jJxfRXnbb794MkJjv1zjFJX 3 zLKiNMekMGW3I57tl1F6PCZvK VBoMDI0xMB6oG1ioOofywccK8 LvpQAkOxX9WHH9vOWkrF1opJy n nskfqU6aDmt+E78RDX3HACBTM B7MAbo3P8IkKahgxVE+PC90YW PlBM77cVPejJOgs8pogYp7DzN w QHAvJAK8eNnxRSmyc8AxVWYkL 21aeLQcx9A0ICTkfCrsoGCcJz JmsIM5eF9tASidhbwqa8lgpdp n Evqyx2mrce55qJ07R15dQDbiA RGwJHU8UCIiXHIvkMmtla9nyJ 9wIi8+SFxnu0wvx6pogKo3FlO w NWOxkhSjkGroWOK7f6LiGl10S 8YpmZtyg9YvLjf7vc84nFNrs2 U1hRS8ILutKATdfK6iDVrkBpB 6 UCVhBiUtcT49yXGaTKytGc7ox NllcEtiRJ9xTOAirxfuVUYufA 8ePOEcbZJclFmdJP2lDUKrdqp m w744JmTbSXW6EQOexHPrU7Nqh C5zLzJfGKEmPADyV0AsgLFvAR arX053OSkeZfY0KDGgrxYsC5O s QEIqdWjkVwJ8t5Y7Mq3Fo1Oxp fdsXVF6ORdaBTTbKmZdFcMqMt X3V4DaDub9WCPyfTsrLS7xU2P h DUEnpyzxsdakqRW5XMCfCHVon N90dSEyHZpjUj7bq5U8s887KK SmSZMcdX25Ni1ywPcaVWXguAA U rV1pvsbwh9bqtcncTrIaNIPtY Ih7DPm8WWVfgGyrFsMtJGB6Lq X6AGU4nJIzdL4awUdrbvievO2 w Oyc+M23beJ5lOSN8GAH8ugcvT SCvbqNsHX84UA76Z5JiNzyfuX FibGU+YYGrzjGasKsqFU9uUfP j m7pze8LsJAnvN2ZcRGApQOfqH du3UFHsDCX2aWC9eY8gSJNeFH xyd0Y5oOC8X2FedqWdxj7pm0v s DBBlRJboU81hhGByb6J5DMJrl MC6UDHenWmcBwKksJ10Qsj+PG VibNotr5KwPevjj4jpy1zkyAw 9 OcInDTHcszOmvEjiLWA4p9AqO e04G40tSDhaGAQpFOIyKVAzUN AftXvdhe1olP2gGs0+PGNvbCB 3 gCF6wE7bKXBzLvE9HBzlV939L nOarBFrBzhfv6uto4mgvIu5Nl GbCVQoraQvnMqwBBF6a9LkAn3 8 R31hPWemMIBuCTWgAGLlRZTxq Qcqdm4mvM6bDz6+IS7oi8ykym 11oT05vIJ+UCPxONJ6uFvwHNo w BNQtgC8zRBciWmB4MOPfGkYvb P29qHThHFwpKe0rrYlhlKrnDF 6dFSPfsrfqv932HtRka3maJOD w tAHfNZzlLCH9Y95hj3R8AYZeF MJmTBT3oZM8jP5fiBoqugetdN YijAokxqGjiQugFRddTYvcY33 6 IHRvcDsnPlBhdGllbnQgTmFtZ Ay0B6NjBdr7LZIiaManVJ4xmV CjXFrySq8ngUvqyGliMV6pDPV p itmds838QsFbi3kdATOrjGIzD DpoBIT8O15mx8B8MNJcXYAxCS A1mEW7hH4mzVtmuwgxzNAzsVy g saOpnOfhCJqhXXbgN351JCVve ElxSlRztiJiPVMmaZG6KY34XE 90hVCsr3G1hRI5U7QhMAWqysd t fvzazNT5GHGaAQMqxQ76Yb8py KpoRm9pXOMeZOI0KNBdjLHgU0 VeoX9iQiNcZQUyBQYzJ7HvnTI t QLhtG189JEjaQvZ5ZDHjozFiR 2FiKLIcrCglJlW1u4C3Ka7YF2 C3FI39FG30pGVvq5E2dUK9Y9L h NIEwolbufrcjyBY8EVPrKDJvt T58Ia0biBmnSz3vHHFjAPM0BF QdlXVqC7NggN1fXmHnDVZmWBO w I2KufAHaPFdkN307YTssUuI7G FPhajOvQ4GfXMFstEgwQzB5v9 G6Tf8LPOi4CD71EW32nYScb5G 5 fMX3W9LdXMFjwyizwawzoZH2B VSvNEMpfQ90Uk8taTusNp0sIG XfSBI7MXEotZCjM1NymH5uLtE j ESUmNLIzD5IazBWkBHuvB708J UrrDfQ5BOTdmzYaY8SwQTHzfW noUkD1x9R3Ef2JZCFvIG19ZUV 5 [id number] +PHRhYmxlIHdpZHRoPScxMD MeSpNdiHupPD2dYy2bXTVzKNC v hAbsxZDjNdPig9oyTMIzPJoeW U4adCpzJ2EtfUJ1JFUvp8m7Rc 21W28zG7LraZH+KDAmvBB3hKA 0 iW7kYjHcBbX7PDrnO750XgTbf VVnWmurh7buo3pemEe2FjF6GG CnifJviXsbJRS8x9CmWi99C19 s IHdpZHRoPSIxNSUiIHZhbGlnb w7qsL6hSl2+MTMntJT3sAG7lT 0tVqOpOeR3QEggG518AcHxiUL v Kbckv4jug3yzkDk8OlYmHBPfy rTynWalGWM9w0HbRe75E7CzuD bbe4CcBnj2wc86vEUaz1V7aJI 9 N4QxCEAqxjrhcLBkuAyeAA9sY GJvjqovNRWbnB1cQPJmY3j5Ar InPvG7CPsuS8RhcmL7YZGvhDT g LCkkUEJ6V71fo4A9KHZxDFAdL KM3sEI6xJ3nhVfwzjbzsJUblJ cmjkKbsYehRXqnWGypT162RHI v rJotQEWdeI5gTZVeeWPoeZkoG A9uTFHyirwxPn9MPWkYXDXWPA oeEF4UFoIYYI45DR17nVTyp7C 5 sRQ6J0RtAOGzelezybeksZW1T JIeZXQpnB10nEMkXMmcTf5oa1 U3k590PSPuYDKkiE37Nk8imOr g ZIWflPSIuD5mmkren5laslmtF cJtNMLiUMe7VGk1HVZepDtyIo EkCBZ9VuT6RYQ9rIDasZ5jlFu n lgdhgH2pPlu+AYReDIsnRQy1J TwvdGQ+ONKlGMX2qJrsVOlrRR BxjE0bGSNwQ5w6YrPbAgF8LWt u X4SvGXCeoxfkAe25xO3zBfHmG hF6XRftI9FekvH7UNPsqGApNQ vbGUG9O48ry7I7VVSrPJJhZCQ 7 bAF4wM1kgPwtjyfwuXPyqHwyf sZxeKqmEZoaSEfcV572LKQwkH axXvN2VAllSSGjWN20AO84fDF g g2F0rHN1E2NiDFSxmzrjrwito QP7PTImZAFdxE02fYFwDIiuUc 1dl3I2i591CDSpARLfcJ22Px7 u zTosGKQqoPMGbJ5faowum9ybw lgzMdTpUTXdNOy7EZs7ESSxpZ kdAiZvJNB3TlF5UOH7mBIqtO4 h uBeikpswmN0yCkj+RmVtYWxlP F57BQ12oXQox2H1sGK1Y9NdIC WxinfyytfgsUL2NTFhGWZraX4 7 wMYkWDvfLf9ey7A2d214IYAeQ OWybU39Kg0krWfcPNBudFVJiR 7lpiofk9yobzoyTnMwPIWmVZq 0 ZPh8DJFduZbnWcMdKXR0HlG6T RD1iLOzvX5lbYomjmqyfX6zSs c+AI3qoglpefD8GH59GT92N9U y PjwvdGFibGU+PHRhYmxlIHdpZ WPtEPnhFGQiNfPlbGojPP0qDc 9vWBGvJBHjnZkkfGHhYfTns8r s INOrBWazDC5gfDhiT1EvbFA8I SYdt6c1Zt28J40mA5UpvJB+PG RlxDF1iHN4dQ6oUxQtNaE1YPq p Z575NjZciWYtBtejw7vbb9mxx Uc5BqXaOGKrghVikRnpNYO6v0 EpFy39Z24aABnhMSQtIWMbGQA i LFIcrXcuqa6htL8aEs8+PGNvb XF2yWG2tN3lIwAdJnI3OMnqO9 12LiWslRYrVavyI46eM3IfkDK + DPMdDna9FEJqaZhuRI6wyCTtR KxeZr3mBQG3FzAvCuWmPFraO5 PnVJCfsuvappvfvVZ2ZBDaMUQ w cB10Eo2mhWspQe2rRKSpPEI7M CHsuEGlH4KbgY3pFjEsVGIuYT EmM7UnfJJfLDwwV468GMorYeW 7 PRBxwaBrW6XhVSVplNusCqE8z 6M3Tz4ApOvbkVCcDY6oNhOoYX r4N1KdHkw9WDTxuDrbZW5jaPE k BEjzWn1bkCxlqPceUM7mBTPso xefx731SyBvk8eoIQYezMYqLU osIVH1O44cz0C2MVWkMCEsXLA 7 vYO1xQ5bdSyroeoxiXUnpApgu pNieTuvXJsuQJfgS530TRYgfG jpLxQERxd6G6SyKpc4ZREspLx s YE7hwWDyFUmbCp8ueIakiSsmB R5vEZOnrbknj200SjEji4ghLE ZomBXeTHxpHWR2W15lu8C8KAA w JWGkXXK4yKD2uG7deObfbivez GVmdDsgdmVydGljYWwtYWxpZ2 68GZKdzTdsEa8DTle0V3DxOys 0 RCOprWrqBC2ffFJoIDwwCt6xx IkzyJaxLT1hEBRtbxfne674Ap Lrz8nvABUwpIWhMAvpAKA0L58 s p2T9NLEuVVQvGOC0yGD8eG6id GlnbjogbGVmdDsgdmVydGljYW wwNSqrP393HGPzpRrrKwUcnPC y OjwvdGQ+NS78uf86N0OjQpzuH mn4TJMfTYV1wYM1bS6iPMAeIO wrq0V2nPY8U4CwogDlxo3ki1i s YXBz (more content not included)... [facility] C Urineon 02-03-2022 Bacteria identified Cx Nom (U) Microbiology PROCEDURE: Urine Culture [R1] SOURCE: U CleanCatch BODY SITE: COLLECTED DATE/TIME: 02/01/2022 23:42 EDT RECEIVED DATE/TIME: 02/01/2022 23:54 EDT START DATE/TIME: 02/01/2022 23:54 EDT FREE TEXT SOURCE: Judith Mock DO, DO, Kaylinn A FINAL REPORTS Final Report [] Verified Date/Time: 02/03/2022 10:45 EDT >100,000 cfu/ml Klebsiella pneumoniae SUSCEPTIBILITY RESULTS LEGEND: S=Susceptible, N/R=Not Reported, Blank=Data not available, or drug not advisable or tested, I=Intermediate, ESBL=Extended spectrum beta-lactamase, R=Resistant, TFG=Thymidine-dependent strain, AL=Beta-lactamase positive, CHARLINE=mcg/m;(mg/L), S*=Predicted susceptible interp, R*=Predicted resistant interp Klepne Antibiotic CHARLINE Dilutn CHARLINE Interp Amikacin <=16 S Ampicillin >16 R Ampicillin/ <=8/4 S Sulbactam Aztreonam <=4 S Cefazolin <=2 S Cefepime <=2 S Cefoxitin <=8 S Ceftazidime <=1 S Ceftazidime/ <=8 S Avibactam Ceftriaxone <=1 S Ciprofloxacin <=1 S Ertapenem <=0.5 S Gentamicin <=4 S Levofloxacin <=2 S Meropenem <=1 S Nitrofurantoin >64 R Piperacillin/ <=16 S Tazobactam Tetracycline <=4 S Tigecycline <=2 S Tobramycin <=4 S Trimethoprim/ <=2/38 S Sulfa Performing Locations R1: This test was performed at: [facility], [address] [place] [address], [address] , , Normal [facility] Comment on above: Performed By: #### 2 [id number], [id number] ####[address] [address] Auto Diffon 02-02-2022 Basophils/100 WBC (Bld) 0.9 % Normal 0.0-2.0 [facility] Comment on above: Order Comment: Order Added by Discern Expert. Performed By: #### 2 967282, 5624312, 3522640, 2249227, 97591758, 9082983 ####[address] [address] Basophils/Leukocytes Auto (Bld) [Pure # fraction] 0.1 E9/L Normal 0.0-0.2 [facility] Comment on above: Order Comment: Order Added by Discern Expert. Performed By: #### 2 890385, 1483851, 7560731, 3585345, 84528776, 3624159 ####[address] [place] [address] Eosinophils/100 WBC (Bld) 0.6 % Normal 0.0-8.0 [facility] Comment on above: Order Comment: Order Added by Discern Expert. Performed By: #### 2 789967, 7247283, 4579417, 2913592, 35533940, 6026512 ####[address] [place] [address] Eosinophils/Leukocytes Auto (Bld) [Pure # fraction] 0.0 E9/L Normal 0.0-0.5 [facility] Comment on above: Order Comment: Order Added by Discern Expert. Performed By: #### 2 713128, 9405480, 6497353, 6521524, 38577408, 3368062 ####[address] [address] Lymphocytes/100 WBC (Bld) 22.1 % Normal 14.0-50.0 [facility] Comment on above: Order Comment: Order Added by Discern Expert. Performed By: #### 2 123724, 2764323, 8550892, 7883911, 92615102, 0439329 ####[address] [address] Lymphocytes/Leukocytes Auto (Bld) [Pure # fraction] 1.3 E9/L Normal 1.0-4.0 [facility] Comment on above: Order Comment: Order Added by Discern Expert. Performed By: #### 2 778679, 3654225, 2773519, 9594164, 59872965, 3327528 ####[address] [address] Monocytes/100 WBC (Bld) 9.5 % Normal 4.0-14.0 [facility] Comment on above: Order Comment: Order Added by Discern Expert. Performed By: #### 2 565392, 1263341, 7777035, 7029258, 43790010, 2438035 ####[place] [address] [address] Monocytes/Leukocytes Auto (Bld) [Pure # fraction] 0.6 E9/L Normal 0.2-1.0 [facility] Comment on above: Order Comment: Order Added by Discern Expert. Performed By: #### 2 114120, 5183668, 9651219, 2247328, 78275925, 6086666 ####[address] [address] Neutrophils/100 WBC (Bld) 66.9 % Normal 36.0-75.0 [facility] Comment on above: Order Comment: Order Added by Discern Expert. Performed By: #### 2 002139, 9912890, 4761370, 8603219, 85099057, 4509174 ####[address] [address] Neutrophils/Leukocytes Auto (Bld) [Pure # fraction] 4.0 E9/L Normal 2.0-7.5 [facility] Comment on above: Order Comment: Order Added by Discern Expert. Performed By: #### 2 148482, 2779359, 6150026, 3097691, 37937024, 9507260 ####[address] [address] B hCG Qualon 02-02-2022 Beta hCG Ql Negative Normal [facility] Comment on above: Performed By: #### 2 5838123 ####[address] [address] BMPon 02-02-2022 Anion gap [Moles/Vol] 21 mmol/L High 6-16 [facility] Comment on above: Performed By: #### 2 646480, 4889441, 9595482, 0374176, 27913231, 4482532 ####[facility] [address] [place] [address] Calcium [Mass/Vol] 9.2 mg/dL Normal 8.9-11.1 [facility] Comment on above: Performed By: #### 2 285005, 3734134, 8966514, 4905638, 50968588, 6210675 ####[facility] [address] [place] [address] Chloride [Moles/Vol] 100 mmol/L Low 101-111 [facility] Comment on above: Performed By: #### 2 992977, 1655230, 2123441, 3947000, 50350373, 8784287 ####[facility] [address] [place] [address] CO2 [Moles/Vol] 20 mmol/L Low 21-31 [facility] Comment on above: Performed By: #### 2 556335, 2086613, 6529598, 7788864, 63016595, 9054750 ####[facility] [address] [place] [address] Creatinine [Mass/Vol] 0.7 mg/dL Normal 0.5-1.3 [facility] Comment on above: Performed By: #### 2 263659, 9737486, 4230830, 4279798, 62743546, 9995973 ####[facility] [address] [place] [address] Glucose [Mass/Vol] 176 mg/dL Normal 55-199 [facility] Comment on above: Result Comment: If t his glucose result represents a fasting glucose, interpretation should refer to the following reference range: 55-99 mg/dL Performed By: #### 2 520609, 6239425, 9458310, 4949135, 25615170, 7094178 ####[facility] [address] [place] [address] Potassium [Moles/Vol] 3.4 mmol/L Low 3.5-5.3 [facility] Comment on above: Performed By: #### 2 246398, 2486885, 0250842, 4717277, 86956302, 3665052 ####[facility] [address] [place] [address] Sodium [Moles/Vol] 138 mmol/L Normal 135-145 [facility] Comment on above: Performed By: #### 2 038248, 0024169, 2367302, 6600460, 26664611, 7783425 ####[facility] [address] [place] [address] Urea nitrogen [Mass/Vol] mg/dL Normal 5-21 [facility] Comment on above: Performed By: #### 2 696350, 4908605, 3017150, 9614465, 75927898, 0219027 ####[facility] [address] [place] [address] Urea nitrogen/Creatinine [Mass ratio] UTC Abnormal 10-20 [facility] Comment on above: Result Comment: Resu lt verified by Discern Rule. Performed result UT (Unable to Calculate) was sent as an Alpha code due the inability to calculate a valid numeric value. Performed By: #### 2 568648, 7964814, 9015364, 9557713, 81946898, 7801935 ####[address] [place] [address] CBC w/ Auto Diffon Erythrocyte distribution width (RBC) [Ratio] 13.6 % Normal 10.9-14.2 [facility] Comment on above: Performed By: #### 2 274480, 4791934, 9725723, 8753514, 71565705, 0796882 ####[address] [place] [address] Hematocrit (Bld) [Volume fraction] 44.9 % Normal 34.0-46.0 [facility] Comment on above: Performed By: #### 2 553161, 0381975, 2768230, 4415997, 05203065, 3399537 ####[facility] [address] [place] [address] Hemoglobin (Bld) [Mass/Vol] 15.6 g/dL Normal 12.0-16.0 [facility] Comment on above: Performed By: #### 2 207354, 6045670, 4244782, 5462391, 31169816, 2362223 ####[address] [address] MCH (RBC) [Entitic mass] 34.3 pg High 27.0-34.0 [facility] Comment on above: Performed By: #### 2 253843, 4250586, 6952639, 6604536, 61579584, 8062476 ####[address] [address] MCHC (RBC) [Mass/Vol] 34.7 g/dL Normal 31.4-36.0 [facility] Comment on above: Performed By: #### 2 220886, 1375129, 3638559, 6904221, 97165255, 9002372 ####[place] [address] MCV (RBC) [Entitic vol] 98.8 fL Normal 80.0-100.0 [facility] Comment on above: Performed By: #### 2 910290, 9018151, 4350546, 6179487, 24911262, 8524579 ####[address] [address] Platelet mean volume (Bld) [Entitic vol] 7.5 fL Normal 6.4-10.8 [facility] Comment on above: Performed By: #### 2 886083, 2663274, 0704566, 1256286, 72685063, 5490463 ####[address] [address] Platelets (Bld) [#/Vol] 199.0 E9/L Normal 150.0-500. 0 [facility] Comment on above: Performed By: #### 2 943665, 0545667, 0011888, 2773473, 20210934, 3643673 ####[address] [address] RBC (Bld) [#/Vol] 4.6 E12/L Normal 4.3-5.9 [facility] Comment on above: Performed By: #### 2 136799, 6898865, 0360882, 4759857, 00774264, 0841223 ####[facility] [address] [place] [address] WBC corrected for nucl RBC Auto (Bld) [#/Vol] 6.0 E9/L Normal 4.0-11.0 [facility] Comment on above: Performed By: #### 2 921384, 3683499, 4820062, 3937713, 60617651, 5365635 ####[facility] [address] [place] [address] CT Abdomen/Pelvis w/ Contras ton 02-02-2022 CT Abdomen/Pelvis w/ Contrast Exam Date/Time: 02/01/2022 22:43 EDT Reason for Exam: Abdominal pain, acute, nonlocalized;Other (please specify) Report IMPRESSION: FINDINGS SUGGESTING LIMITED FOCAL LEFT PYELONEPHRITIS AND CYSTITIS. SHOULD THE PATIENT'S CLINICAL CONDITION NOT RESOLVE WITH APPROPRIATE CLINICAL MANAGEMENT, THEN FOLLOW-UP CT SCAN TO FURTHER EVALUATE THE KIDNEY WOULD BE A CONSIDERATION. CLINICAL HISTORY: Abdominal pain, acute, nonlocalized. COMMENT: Images were obtained following the administration of Intravenous contrast. The liver is within normal limits in size and configuration. There is diffuse fatty infiltration of the liver. No focal liver lesion is evident. The spleen, pancreas, gallbladder, and adrenal glands are unremarkable. The kidneys are normal in size and configuration. There are two small focal areas of mildly decreased enhancement of anterior cortex of the left kidney, each measuring approximately 1 cm in diameter. These are not as low in attenuation as would be expected with renal cortical cysts. Small focal areas of pyelonephritis could account for the appearance. No perinephric inflammation is evident. The left kidney is otherwise unremarkable. The right kidney is unremarkable. The renal collecting systems are not dilated. No retroperitoneal lymphadenopathy is evident. The abdominal aorta is normal in diameter. No aneurysm is noted. Evaluation of bowel is limited. The bowel loops are not dilated, and there is no evidence of bowel obstruction. The appendix is normal. There is some fecal material in the colon, that limits evaluation. The colon is mostly collapsed. There is no evidence of diverticulitis. No abdominal inflammatory complex nor free air nor free fluid is noted. The uterus is within normal limits in size. There is an IUD within the uterine fundus and upper body centrally. No bladder calculus is noted. There is mild diffuse thickening of the wall of the urinary bladder, possibility of cystitis raised. No perivesical inflammation is evident. No pelvic mass nor pelvic lymphadenopathy is evident. There is mild thoracolumbar levoscoliosis. There is spondylosis, with mild hypertrophic spurring of lumbar and lower thoracic vertebral bodies. There is mild anterior wedging of the T11 vertebral body, chronic in appearance. All CT scans at this facility use dose modulation, iterative reconstruction, and/or weight based dosing when appropriate to reduce radiation dose to as low as reasonably Report achievable. FINAL REPORT Dictated: 02/02/2022 8:59 am Emery Ibarra M.D. Signed (Electronic Signature): 02/02/2022 8:59 am Signed by: Emery Ibarra M.D. Transcribed by: BENNY Technologist: TITO Technical Comments GFR (mL/min/1/73m2) n/a-age Contrast: Isovue 300 Contrast amount in ml's: 100 Normal [facility] Discharge Instructionson Discharge Instructions [id number]:12 [id number] Normal [facility] ED Clinical Summaryon 2021 ED Clinical Summary (Inserted Image. Jackie ble to display) [place] [id number] ED Clinical Summary Person Information Name: SHIKHA LOERA/[facility] Age: 36 Years : 1985 Sex: Female Language: Surinamese PCP: AVERY VILLEGAS CNP Marital Status: Visit Id: Visit Reason: Nausea; Abdominal pain; SEVERE ABD PAIN Speciality: Acuity: 2 Enc Type: Emergency Med Service: Emergency Arrival: 02/01/2022 21:23:41 Discharge: 02/02/2022 00:18:23 LOS: 000 02:55 Checkin: 02/01/2022 21:23:41 Checkout: 02/02/2022 00:18:23 Dispo Type: Home (Routine DC) EVENTS: Event Name Event Status Request Date/Time Start Date/Time Complete Date/Time Arrive Complete 02/01/2022 21:23:41 02/01/2022 21:23:41 02/01/2022 21:23:41 Document Home Meds Request 02/01/2022 21:23:41 Triage Complete 02/01/2022 21:23:41 02/01/2022 21:31:33 02/01/2022 21:31:33 Registration Complete 02/01/2022 21:30:05 02/01/2022 21:30:05 02/01/2022 21:30:05 Reg Complete Request 02/01/2022 21:30:05 Reg Bed Request Complete 02/01/2022 21:30:05 02/01/2022 21:30:05 02/01/2022 21:30:05 Bed Assign Complete 02/01/2022 21:32:04 02/01/2022 21:32:04 02/01/2022 21:32:04 Dr Exam Complete 02/01/2022 21:32:04 02/01/2022 21:39:05 02/01/2022 21:39:05 RN Exam Complete 02/01/2022 21:32:04 02/01/2022 21:47:14 02/01/2022 21:47:14 Registration Request 02/01/2022 21:39:05 Pending Labs Complete 02/01/2022 21:48:25 02/01/2022 23:51:53 Lab Complete 02/01/2022 21:48:25 02/01/2022 23:51:53 Urine Collect Complete 02/01/2022 21:48:25 02/01/2022 23:51:53 Pending Labs Complete 02/01/2022 21:55:41 02/01/2022 21:55:41 02/01/2022 22:28:13 Lab Complete 02/01/2022 21:55:41 02/01/2022 21:55:41 02/01/2022 22:28:13 Pending Labs Complete 02/01/2022 22:00:49 02/01/2022 22:00:49 02/01/2022 22:00:58 Lab Complete 02/01/2022 22:00:49 02/01/2022 22:00:49 02/01/2022 22:00:58 CT Complete 02/01/2022 22:13:08 02/01/2022 22:29:25 02/01/2022 22:43:45 Meds Admin Complete 02/01/2022 22:13:08 02/01/2022 22:26:21 Pending Labs Complete 02/01/2022 22:13:08 02/01/2022 22:54:25 US Complete 02/01/2022 23:08:04 02/01/2022 23:09:30 02/01/2022 23:32:25 Pending Labs Inlab 02/01/2022 23:44:58 02/01/2022 23:44:58 Lab Inlab 02/01/2022 23:44:58 02/01/2022 23:44:58 Meds Admin Complete 02/02/2022 00:02:01 02/02/2022 00:17:19 Discharge Complete 02/02/2022 00:04:54 02/02/2022 00:18:27 02/02/2022 00:18:27 Transfer Complete 02/02/2022 00:18:27 02/02/2022 00:18:27 02/02/2022 00:18:27 ADDRESS: [address] [place] [address] [place] [id number] [facility] DOC NOTES: MEDICAL INFORMATION: Prescriptions Given: New Medications Printed Prescriptions acetaminophen-hydrocodone ([place] 325 mg-5 mg oral tablet) 1 Tablets By Mouth every 6 hours as needed for pain. Refills: 0. sulfamethoxazole-trimetho prim (Bactrim DS 800 mg-160 mg Tab) 1 Tablets By Mouth 2 times a day for 10 Days. Refills: 0. PATIENT EDUCATION INFORMATION: Instructions: Pyelonephritis, Adult, Kxys-yr-Ihce Follow up: With: Address: When: AVERY VILLEGAS [address] [facility] [address] [place] [phone] Business (1) In 3 days 02/05/2022 Comments: You can use the pain medication every 6 hours as needed for pain, take the Bactrim twice daily until you have completed the course. Please follow-up with your primary care doctor the next 2 to 3 days. Please return to the ED for any new or worsening symptoms. DIAGNOSIS: Acute pyelonephritis Normal [facility] ED Note-Physicianon 20 22 ED Note-Physician Basic Information Time Seen: Judith Mock DO 02/01/2022 21:39 Chief Complaint pt to ED with c/o LUQ intermittent abd pain x2 days. nausea as well. hx of chrons dx, hx of chest hernia , hx of HTN and pancreatitis. denies diarrhea or fevers. states pain and n/v. emesis x1. History of Present Illness Patient is a 36-year-old female with recent diagnosis of Crohn's disease presenting to the ED for evaluation of left upper quadrant abdominal pain, nausea and vomiting. Patient states symptoms been ongoing for the last 2 days, progressively worse and describes sharp left upper quadrant abdominal pain. Patient states she is had extensive work-up was recently diagnosed with Crohn's disease sees a GI doctor at [facility] who she is unsure of who this is. Patient denies any chest pain, shortness of breath, dizziness or lightheadedness. Review of Systems General: Denied fever, chills, weight loss HEENT: Denied Congestion, rhinorrhea, sore throat Cardiac: Denied Chest pain, palpitations, dizziness/lightheadedness Respiratory: Denied Dyspnea, cough Abdominal: +abdominal pain, nausea, vomiting, Denied diarrhea, constipation : Denied dysuria, hematuria Extremities: Denied leg swelling, leg pain, calf tenderness Neuro: Denied Focal neurologic deficits, vision changes, difficulty with speech Integumentary: Denied rashes or lesions Physical Exam Vitals & Measurements T: 36.8 ?C(Oral) HR: 111(Peripheral) RR: 20 BP: 196/120 SpO2: 98% HT: 167 cm WT: 70.4 kg BMI: 25.24 General: Well developed, non toxic appearing, no acute distress HEENT: Head atraumatic, Mucosa moist, hearing grossly normal Neck: No JVD, tracheal deviation Cardiac: Regular rate, rhythm, no murmurs, or gallops, 2+ radial pulses Respiratory: Lungs clear to auscultation B/L, normal respiratory effort Abdomen: Soft, tenderness to palpation of the left upper quadrant no rebound or guarding, no peritoneal signs Extremities: No edema noted in the LE B/L, no tenderness to palpation Neurologic: Alert and oriented, speech clear Skin: No rashes or lesions Psych: Appropriate mood and behavior Medical Decision Making Patient is a 36-year-old female presenting to the ED for evaluation of nausea, abdominal pain. Patient is nontoxic-appearing on arrival, no acute distress. Laboratory evaluation is obtained patient is given GI cocktail, Protonix, Zofran in the ED. CT ab pelvis is ordered. His laboratory evaluation reveals mildly low bicarbonate of 20, bilirubin mildly elevated at 1.4 with slight elevation of her liver enzymes of 57 and 157. UA is consistent with urinary tract infection. CT of the abdomen pelvis shows findings consistent with pyelonephritis in addition to thickening of her colonic wall patient states this is chronic for her due to her recently diagnosed Crohn's disease. Patient states her liver enzymes are normally elevated. Right upper quadrant ultrasound was ordered due to the fact that gallbladder was distended this was normal however there was fatty infiltration of the liver. Patient reports some improvement of her pain after the GI cocktail however continues to complain of pain. Patient does not have a ride home. Is given a short course of [place] to go home with. She is given Bactrim for treatment of pyelonephritis that she is currently on Macrobid and does not have renal penetration. She is to follow-up with her primary care doctor in the next 2 to 3 days. She is to return the ED for any new or worsening symptoms. Assessment/Plan Acute pyelonephritis (N10: Acute pyelonephritis) Orders: acetaminophen-hydrocodone , 1 tab(s), Oral, q6hr for pain, 12 tab(s), Refill(s) 0 acetaminophen-hydrocodone , 1 EA, Tab, Oral, Once, Stop date 02/02/22 0:01:00 EDT, STAT, Start date 02/02/22 0:01:00 EDT Al hydroxide/Mg hydroxide/simethicone, 30 mL, Susp-Oral, Oral, Once, Stop date 02/01/22 22:12:00 EDT, STAT, Start date 02/01/22 22:12:00 EDT atropine/hyoscyamine/PB/s copolamine, 10 mL, Elixir, Oral, Once, Stop date 02/01/22 22:12:00 EDT, STAT, Start date 02/01/22 22:12:00 EDT lidocaine topical, 200 mg, 10 mL, Soln-Oral, Oral, Once, Stop date 02/01/22 22:12:00 EDT, STAT, Start date 02/01/22 22:12:00 EDT ondansetron, 4 mg = 2 mL, Injection, IV Push, Once, Stop date 02/01/22 22:12:00 EDT, STAT, Start date 02/01/22 22:12:00 EDT, 02/01/22 22:12:00 EDT pantoprazole, 40 mg = 10 mL, Injection, IV Push, Once, Stop date 02/01/22 22:12:00 EDT, STAT, Start date 02/01/22 22:12:00 EDT, 02/01/22 22:12:00 EDT sulfamethoxazole-trimetho prim, 1 tab(s), Tab, Oral, Once, Stop date 02/02/22 0:01:00 EDT, STAT, Start date 02/02/22 0:01:00 EDT sulfamethoxazole-trimetho prim, 1 tab(s), Oral, BID for 10 day(s), 20 tab(s), Refill(s) 0 Automated Diff Basic Metabolic Panel Beta hCG Qual CBC w/ Auto Diff CT Abdomen/Pelvis w/ Contrast eGFR Hepatic Function Panel Lipase Level UA With Cult Reflex Urine Culture US Gallbladder Medications Administered Given Al hydroxide/Mg hydroxide/simethicone (more content not included)... Normal [facility] Comment on above: Result Comment: Elec tronically Signed By: Judith Mock DO\.br\Date and Time Signed: 02/02/22 00:07 EDT ED Patient Education Noteon 02-02-2022 ED Patient Education Note Nephrology Pyelonephritis, Adult Pyelonephritis is an infection that occurs in the kidney. The kidneys are organs that help clean the blood by moving waste out of the blood and into the pee (urine). This infection can happen quickly, or it can last for a long time. In most cases, it clears up with treatment and does not cause other problems. What are the causes? This condition may be caused by: ? Germs (bacteria) going from the bladder up to the kidney. This may happen after having a bladder infection. ? Germs going from the blood to the kidney. What increases the risk? This condition is more likely to develop in: ? women. ? Older people. ? People who have any of these conditions: ? Diabetes. ? Inflammation of the prostate gland (prostatitis), in males. ? Kidney stones or bladder stones. ? Other problems with the kidney or the parts of your body that carry pee from the kidneys to the bladder (ureters). ? Cancer. ? People who have a small, thin tube (catheter) placed in the bladder. ? People who are sexually active. ? Women who use a medicine that kills sperm (spermicide) to prevent . ? People who have had a prior urinary tract infection (UTI). What are the signs or symptoms? Symptoms of this condition include: ? Peeing often. ? A strong urge to pee right away. ? Burning or stinging when peeing. ? Belly pain. ? Back pain. ? Pain in the side (flank area). ? Fever or chills. ? Blood in the pee, or dark pee. ? Feeling sick to your stomach (nauseous) or throwing up (vomiting). How is this treated? This condition may be treated by: ? Taking antibiotic medicines by mouth (orally). ? Drinking enough fluids. If the infection is bad, you may need to stay in the hospital. You may be given antibiotics and fluids that are put directly into a vein through an IV tube. In some cases, other treatments may be needed. Follow these instructions at home: Medicines ? Take your antibiotic medicine as told by your doctor. Do not stop taking the antibiotic even if you start to feel better. ? Take nrsl-pqb-kgcnhlf and prescription medicines only as told by your doctor. General instructions ? Drink enough fluid to keep your pee pale yellow. ? Avoid caffeine, tea, and carbonated drinks. ? Pee (urinate) often. Avoid holding in pee for long periods of time. ? Pee before and after sex. ? After pooping (having a bowel movement), women should wipe from front to back. Use each tissue only once. ? Keep all follow-up visits as told by your doctor. This is important. Contact a doctor if: ? You do not feel better after 2 days. ? Your symptoms get worse. ? You have a fever. Get help right away if: ? You cannot take your medicine or drink fluids as told. ? You have chills and shaking. ? You throw up. ? You have very bad pain in your side or back. ? You feel very weak or you pass out (faint). Summary ? Pyelonephritis is an infection that occurs in the kidney. ? In most cases, this infection clears up with treatment and does not cause other problems. ? Take your antibiotic medicine as told by your doctor. Do not stop taking the antibiotic even if you start to feel better. ? Drink enough fluid to keep your pee pale yellow. This information is not intended to replace advice given to you by your health care provider. Make sure you discuss any questions you have with your health care provider. Document Released: 05/03/2005 Document Revised: 01/28/2019 Document Reviewed: 01/28/2019 Elsevier Patient Education ? 2019 [employer]. Normal [facility] ED Patient Summaryon 022 ED Patient Summary (Inserted Image. Jackie ble to display) [place] [address] Patient Discharge Instructions Person Information Name: SHIKHA LOERA Age: 36 Years Arrival Date: 02/01/2022 21:23:41 Discharge Diagnosis: Acute pyelonephritis Primary Care Physician: AVERY VILLEGAS CNP Provider Information Primary Provider: Judith Mock DO Advanced Label Printer:None The exam and treatment you received in the Emergency Department were for an urgent problem and are not intended as complete care. It is important that you follow up with a doctor, nurse practitioner, or physician?s ward assistant for ongoing care. If your symptoms become worse or you do not improve as expected and you are unable to reach your usual health care provider, you should return to the Emergency Department. We are available 24 hours a day. BRIDGERSHIKHA BIRCH has been given the following list of patient education materials, prescriptions and follow-up instructions: Follow-up Instructions: With: Address: When: AVERY VILLEGAS [address] [place] [address] [address] [place] [address] [phone] Mabaya (1) In 3 days 02/05/2022 Comments: You can use the pain medication every 6 hours as needed for pain, take the Bactrim twice daily until you have completed the course. Please follow-up with your primary care doctor the next 2 to 3 days. Please return to the ED for any new or worsening symptoms. In the event that this physician does not participate in your insurance network, please consult with your insurance company to find a nearby participating provider. Patient Education Materials: Pyelonephritis, Adult, Pehj-sg-Zqfa A MESSAGE TO ALL PATIENTS REGARDING OPIOIDS PRESCRIPTION OPIOIDS: WHAT YOU NEED TO KNOW Prescription opioids can be used to help relieve binxeryq-ng-nfjdem pain and are often prescribed following a surgery or injury, or for certain health conditions. These medications can be an important part of the treatment but also come with serious risks. It is important to work with your healthcare provider to make sure you are getting the safest, most effective care. WHAT ARE THE RISKS AND SIDE EFFECTS OF OPIOID USE? Prescription opioids carry serious risks of addiction and overdose, especially with prolonged use. An opioid overdose, often marked by slowed breathing, can cause sudden . The use of prescription opioids can have a number of side effects as well, even when taken as directed: ? Tolerance?meaning you might need to take more of the medication for the same pain relief ? Physical dependence?meaning you have symptoms of withdrawal when a medication is stopped ? Increased sensitivity to pain ? Constipation ? Nausea, vomiting, and dry mouth ? Sleepiness and dizziness ? Confusion ? Depression ? Low levels of testosterone that can result in lower sex drive, energy, and strength ? Itching and sweating RISKS ARE GREATER WITH: ? History of drug misuse, substance use disorder, or overdose ? Mental health conditions (such as depression or anxiety) ? Sleep apnea ? Older age (65 years and older) ? Avoid alcohol while taking prescription opioids. Also, unless specifically advised by your health care provider, medications to avoid include: ? Benzodiazepines (such as Xanax or Valium) ? Muscle relaxants (such as Soma or Flexeril) ? Hypnotics (such as Ambien or Lunesta) ? Other prescription opioids KNOW YOUR OPTIONS Talk to your health care provider about ways to manage your pain that don?t involve prescription opioids. Some of these options may actually work better and have fewer risks and side effects. Options may include: ? Pain relievers such as acetaminophen, ibuprofen, and naproxen ? Some medication that are also used for depression or seizures ? Physical therapy and exercise ? Cognitive behavioral therapy, a psychological, goal-directed approach, in which patients learn how to modify physical, behavioral, and emotional triggers of pain and stress. IF YOU ARE PRESCRIBED OPIOIDS FOR PAIN: ? Never take opioids in greater amounts or more often than prescribed. ? Follow up with your primary health care provider. o Work together to create a plan on how to manage your pain. o Talk about ways to help manage your pain that don?t involve prescription opioids. o Talk about any and all concerns and side effects. ? Help prevent misuse and abuse o Never sell or share prescription opioids. o Never use another person?s prescription opioids. ? Store prescription opioids in a secure place and out of reach of others (this may include visitors, children, friends, and family). ? Safely dispose of unused prescription opioids: Find your community drug take-back program or your pharmacy mail-back program, or flush them down the toilet, following guidance from the Food and Drug Administration (www.fda.gov/Drugs/Resour cesForYou). (more content not included)... Normal [facility] Hep Func Panelon 02-02-2022 Albumin [Mass/Vol] 4.5 g/dL Normal 3.3-5.0 [facility] Comment on above: Performed By: #### 2 816279, 1968220, 9150233, 6062368, [id number], 5790854 ####[facility] [address] [place] [address] Albumin/Globulin (S) [Mass conc ratio] 1.1 Normal 1.1-2.2 [facility] Comment on above: Performed By: #### 2 238564, 1711631, 5703032, 1934360, 08811654, 0613081 ####[facility] [address] [place] [address] ALP [Catalytic activity/Vol] 98 Int._Unit/L Normal 21-98 [facility] Comment on above: Performed By: #### 2 491331, 4126489, 1633216, 5043144, 06759815, 2995816 ####[facility] [address] [place] [address] ALT No additional P-5'-P [Catalytic activity/Vol] 57 Int._Unit/L High 6-46 [facility] Comment on above: Performed By: #### 2 995590, 6192435, 0309521, 2546670, 69698346, 4998130 ####[facility] [address] [place] [address] AST [Catalytic activity/Vol] 157 Int._Unit/L High 5-43 [facility] Comment on above: Performed By: #### 2 300679, 0375715, 4095215, 9173001, 81623694, 3643418 ####[facility] [address] [place] [address] Bilirubin [Mass/Vol] 1.4 mg/dL High 0.0-1.1 [facility] Comment on above: Performed By: #### 2 392673, 6283813, 5993139, 4870194, 29427344, 8079643 ####[place] [address] Bilirubin.direct [Mass/Vol] 0.5 mg/dL High 0.1-0.4 [facility] Comment on above: Performed By: #### 2 025049, 3084033, 9971901, 8413105, 04027304, 0143670 ####[place] [address] Bilirubin.indirect [Mass or moles/Vol] 0.9 mg/dL Normal 0.1-0.9 [facility] Comment on above: Performed By: #### 2 820227, 6950291, 0330531, 1157502, 09912091, 5750517 ####[facility] [address] [place] [address] Globulin (S) [Mass/Vol] 4.1 g/dL High 1.4-4.0 [facility] Comment on above: Performed By: #### 2 120170, 9543494, 6202774, 9932989, 81121184, 8588063 ####[facility] [address] [place] [address] Protein [Mass/Vol] 8.6 g/dL High 6.0-7.8 [facility] Comment on above: Performed By: #### 2 913374, 2174652, 9457994, 4924058, 94995808, 6844749 ####[facility] [address] [place] [address] Lipase Levelon 02-02-2022 Lipase [Catalytic activity/Vol] 57 U/L Normal 13-58 [facility] Comment on above: Performed By: #### 2 345924, 4106074, 7805956, 6721336, 14457863, 5875249 ####[facility] [address] [place] [address] Prescriptions/Work Noteson 1 Prescriptions/Work Notes [id number]#[id number]:12 7 Normal [facility] RAD - Preliminary Cat Scan R eporton 02-02-2022 RAD - Preliminary Cat Scan Report [id number]#[id number]:12 7 Normal [facility] UA With Cult Reflexon 2021 Bacteria LM Ql (Urine sed) 2+ /HPF Abnormal Trace [facility] Comment on above: Performed By: #### 2 274832, 60047049 ####[facility] [address] [place] [address] Bilirubin Ql (U) Negative Normal Negative [facility] Comment on above: Performed By: #### 2 281318, 24822390 ####[facility] [address] [place] [address] Clarity (U) SL CLOUDY Invalid Interpretation Code [facility] Comment on above: Performed By: #### 2 008052, 27728441 ####[facility] [address] [place] [address] Color (U) YELLOW Normal Yellow [facility] Comment on above: Performed By: #### 2 837956, 77575574 ####[facility] [address] [place] [address] Epithelial cells.squamous LM.HPF (Urine sed) [#/Area] 3-4 Normal 0-2 [facility] Comment on above: Performed By: #### 2 094177, 66662173 ####[facility] [address] [place] [address] Glucose Test strip (U) [Mass/Vol] Negative Normal Negative [facility] Comment on above: Performed By: #### 2 005804, 85074176 ####[place] [address] [place] [address] Hemoglobin Ql (U) 1+ Abnormal Negative [facility] Comment on above: Performed By: #### 2 684847, 51200966 ####[address] [address] Ketones (U) [Mass/Vol] Negative Normal Negative [facility] Comment on above: Performed By: #### 2 171935, 62351113 ####[address] [address] Tanaina.plasma/Tanaina .RBC (Bld) [Mass ratio] 4-20 Normal 0-3 [facility] Comment on above: Performed By: #### 2 974318, 15772811 ####[facility] [address] [place] [address] Nitrite Ql (U) Negative Normal Negative [facility] Comment on above: Performed By: #### 2 040044, 19202325 ####[facility] [address] [place] [address] pH (U) 5.0 [pH] Invalid Interpretation Code 5.0-9.0 [facility] Comment on above: Performed By: #### 2 682712, 73337978 ####[address] [address] Protein (U) [Mass/Vol] Negative Normal Negative [facility] Comment on above: Performed By: #### 2 346999, 67706809 ####[address] [address] Specific gravity (U) [Rel density] <=1.005 Invalid Interpretation Code 1.005-1.03 0 [facility] Comment on above: Performed By: #### 2 349595, 51876520 ####[facility] [address] [place] [address] Type of Urine collection method Clean Catch Normal [facility] Comment on above: Performed By: #### 2 745917, 18151201 ####[facility] [address] [place] [address] Urobilinogen Qn (U) 0.2 {Concetta'U}/dL Normal 0.0-1.0 [facility] Comment on above: Performed By: #### 2 616432, 19517279 ####[facility] [address] [place] [address] WBC Auto Ql (U) 2+ Abnormal Negative [facility] Comment on above: Performed By: #### 2 240829, 55127278 ####[facility] [address] [place] [address] WBC LM.HPF (Urine sed) [#/Area] 26-30 Abnormal 0-5 [facility] Comment on above: Performed By: #### 2 231991, 76039637 ####[facility] [address] [place] [address] US Gallbladderon 02-02-2022 US Gallbladder Exam Date/Time: 02/01/2022 23:32 EDT Reason for Exam: Abnormal CT Report IMPRESSION: THERE ARE NO ACUTE CHANGES. THE ECHOGENICITY OF THE LIVER IS SUGGESTIVE OF HEPATIC STEATOSIS CLINICAL HISTORY: Abnormal CT TECHNIQUE: Grayscale images and Doppler images of the right upper quadrant were obtained in multiple planes. COMPARISON: NONE. FINDINGS: The liver is prominent and hyperechoic which may be secondary to diffuse fatty infiltration. There are no focal solid or cystic lesions. 18 cm in greatest diameter The common bile duct measures 5 mm. There is no free fluid. The gallbladder contains no filling defects or wall abnormalities. There is no pericholecystic fluid. The gallbladder wall measures 2 mm. FINAL REPORT Dictated: 02/02/2022 10:04 am Srini Jauregui MD, V. Signed (Electronic Signature): 02/02/2022 10:04 am Signed by: Srini Jauregui MD, V. Transcribed by: BENNY Technologist: JENNY Napier [facility] eGFRon 02-02-2022 GFR/1.73 sq M.predicted among blacks MDRD (S/P/Bld) [Vol rate/Area] mL/min/{1.73_m2} Normal >=59 [facility] Comment on above: Order Comment: Order added by Discern Expert. Result Comment: eGFR is race adjusted. AA=. Performed By: #### 2 147559, 8456962, 5763865, 9763440, 22217419, 1105886 ####[facility] [address] [place] [address] GFR/1.73 sq M.predicted among non-blacks MDRD (S/P/Bld) [Vol rate/Area] mL/min/{1.73_m2} Normal >=59 [facility] Comment on above: Order Comment: Order added by Discern Expert. Result Comment: Vaccine Key Customer Leader cj kidney disease could be indicated at eGFR's of less than 60 mL/min/1.73m2. Kidney failure is indicated at less than 15 mL/min/1.73m2. Performed By: #### 2 105472, 8154565, 4107853, 6379508, 30740080, 9076365 ####[facility] [address] [place] [address] CHEMISTRYOrdered By: Jorge ruby on 02-01-2022 Albumin [Mass/Vol] 4.5 g/dL Normal 3.3 - 5.0 gm/dL [facility] Albumin/Globulin [Mass ratio] 1.1 {ratio} Normal 1.1 - 2.2 [facility] ALP [Catalytic activity/Vol] 98 [iU]/d Normal 21 - 98 Int._Unit/ L [facility] ALT No additional P-5'-P [Catalytic activity/Vol] 57 [iU]/d High 6 - 46 Int._Unit/ L [facility] Anion gap [Moles/Vol] 21 mmol/L High 6 - 16 mEq/L [facility] AST [Catalytic activity/Vol] 157 [iU]/d High 5 - 43 Int._Unit/ L [facility] Bilirubin [Mass/Vol] 1.4 mg/dL High 0.0 - 1 .1 mg/dL [facility] Bilirubin.direct [Mass/Vol] 0.5 mg/dL High 0.1 - 0.4 mg/dL [facility] Bilirubin.indirect [Mass or moles/Vol] 0.9 mg/dL Normal 0.1 - 0.9 mg/dL [facility] Calcium [Mass/Vol] 9.2 mg/dL Normal 8.9 - 11. 1 mg/dL [facility] Chloride [Moles/Vol] 100 mmol/L Low 101 - 1 11 mmol/L [facility] CO2 [Moles/Vol] 20 mmol/L Low 21 - 31 mmol/L [facility] Creatinine [Mass/Vol] 0.7 mg/dL Normal 0.5 - 1.3 mg/dL [facility] Globulin (S) [Mass/Vol] 4.1 g/dL High 1.4 - 4.0 gm/dL [facility] Glucose [Mass/Vol] 176 mg/dL Normal 55 - 199 mg/dL [facility] Lipase [Catalytic activity/Vol] 57 U/L Normal 13 - 58 unit/L [facility] Potassium [Moles/Vol] 3.4 mmol/L Low 3.5 - 5.3 mmol/L [facility] Protein [Mass/Vol] 8.6 g/dL High 6.0 - 7.8 gm/dL [facility] Sodium [Moles/Vol] 138 mmol/L Normal 135 - 145 mmol/L [facility] Urea nitrogen [Mass/Vol] mg/dL Normal 5 - 21 mg/dL [facility] CHEMISTRYOrdered By: SYSTEM SYSTEM on 02-01-2022 GFR/1.73 sq M.predicted among blacks MDRD (S/P/Bld) [Vol rate/Area] mL/min/1.73 m2 Normal >=59mL/min /1.73 m2 [facility] Chem S GFR/1.73 sq M.predicted among non-blacks MDRD (S/P/Bld) [Vol rate/Area] mL/min/1.73 m2 Normal >=59mL/min /1.73 m2 [facility] [place] Chem S Urea nitrogen/Creatinine [Mass ratio] Unable to Calculate Invalid Interpretation Code [facility] Remisol Consent for Treatmenton 01-08 Consent for Treatment [id number]#[id number]:12 7 Normal [facility] HEMATOLOGYOrdered By: SYSTEM SYSTEM on 02-01-2022 Basophils/100 WBC (Bld) 0.9 % Normal 0.0 - 2.0 % [facility] Basophils/Leukocytes Auto (Bld) [Pure # fraction] 0.1 E9/L Normal 0.0 - 0.2 E9/L [facility]Auto[facility] Eosinophils/100 WBC (Bld) 0.6 % Normal 0.0 - 8.0 % [facility]eAuto[facility] Eosinophils/Leukocytes Auto (Bld) [Pure # fraction] 0.0 E9/L Normal 0.0 - 0.5 E9/L [facility] Lymphocytes/100 WBC (Bld) 22.1 % Normal 14.0 - 50.0 % [facility] Lymphocytes/Leukocytes Auto (Bld) [Pure # fraction] 1.3 E9/L Normal 1.0 - 4.0 E9/L [facility]eAuto[facility] Monocytes/100 WBC (Bld) 9.5 % Normal 4.0 - 14.0 % [facility]eAuto[facility] Monocytes/Leukocytes Auto (Bld) [Pure # fraction] 0.6 E9/L Normal 0.2 - 1.0 E9/L [facility] Neutrophils/100 WBC (Bld) 66.9 % Normal 36.0 - 75.0 % [facility] Neutrophils/Leukocytes Auto (Bld) [Pure # fraction] 4.0 E9/L Normal 2.0 - 7.5 E9/L [facility] HEMATOLOGYOrdered By: Tiffanie Turpin on 02-01-2022 Erythrocyte distribution width (RBC) [Ratio] 13.6 % Normal 10.9 - 14.2 % [facility] Hematocrit (Bld) [Volume fraction] 44.9 % Normal 34.0 - 46.0 % [facility] Hemoglobin (Bld) [Mass/Vol] 15.6 g/dL Normal 12.0 - 16.0 gm/dL [facility] MCH (RBC) [Entitic mass] 34.3 pg High 27.0 - 34.0 pg [facility] MCHC (RBC) [Mass/Vol] 34.7 g/dL Normal 31.4 - 36.0 gm/dL [facility] MCV (RBC) [Entitic vol] 98.8 fL Normal 80.0 - 100.0 fL [facility] Platelet mean volume (Bld) [Entitic vol] 7.5 fL Normal 6.4 - 10.8 fL [facility] Platelets (Bld) [#/Vol] 199.0 E9/L Normal 150.0 - 500.0 E9/L [facility] RBC (Bld) [#/Vol] 4.6 E12/L Normal 4.3 - 5.9 E12/L [facility] WBC corrected for nucl RBC Auto (Bld) [#/Vol] 6.0 E9/L Normal 4.0 - 11.0 E9/L [facility] Laboratory - Microbiology an d Antimicrobial susceptibilityOrdered By: Nadia Min on 02-01-2022 Bacteria identified Cx Nom (U) >100,000 cfu/ml Gram Negative [employer] species [facility] SEROLOGYOrdered By: Jorge pop on 02-01-2022 Beta hCG Ql Negative (02/01/22 9:55 PM) Normal [facility] URINALYSISOrdered By: Jorge Esquivel on 02-01-2022 Bacteria LM Ql (Urine sed) 2+ /HPF Invalid Interpretation Code Trace/HPF [facility] UA Auto SS Bilirubin Ql (U) Negative (02/01/22 11:42 PM) Normal Negative [facility] UA Auto SS Clarity (U) SL CLOUDY Invalid Interpretation Code [facility]A Auto SS Color (U) Yellow (02/01/22 11:42 PM) Normal Yellow [facility]A Auto SS Epithelial cells.squamous LM.HPF (Urine sed) [#/Area] 3-4 /HPF Normal 0-2/HPF [facility] UA Aut o SS Glucose Test strip (U) [Mass/Vol] Negative (02/01/22 11:42 PM) Normal Negative [facility] UA Auto SS Hemoglobin Ql (U) 1+ *ABN* (02/01/22 11:42 PM) Invalid Interpretation Code Negative [facility] UA Auto SS Ketones (U) [Mass/Vol] Negative (02/01/22 11:42 PM) Normal Negative [facility] UA Auto SS Tanaina.plasma/Tanaina .RBC (Bld) [Mass ratio] 4-20 /HPF Normal 0-3/HPF [facility] UA Auto SS Nitrite Ql (U) Negative (02/01/22 11:42 PM) Normal Negative [facility] UA Auto SS pH (U) 5.0 *NA* (02/01/22 11:42 PM) Invalid Interpretation Code 5.0 - 9.0 [facility] UA Auto SS Protein (U) [Mass/Vol] Negative (02/01/22 11:42 PM) Normal Negative [facility] UA Auto SS Specific gravity (U) [Rel density] <=1.005 *NA* (02/01/22 11:42 PM) Invalid Interpretation Code 1.005 - 1.030 [facility] UA Auto SS UA Spec Desc Clean Catch (02/01/22 11:42 PM) Normal [facility] UA Auto SS Urobilinogen Qn (U) 0.9640577 {Concetta'U}/dL Normal 0.0 - 1.0 EU/dL [facility] UA Auto SS WBC Auto Ql (U) 2+ *ABN* (02/01/22 11:42 PM) Invalid Interpretation Code Negative [facility] UA Auto SS WBC LM.HPF (Urine sed) [#/Area] 26-30 /HPF Invalid Interpretation Code 0-5/HPF [facility]A Auto SS Albumin [Mass/volume] in Ser um or PlasmaOrdered By: Delfino Reese on 01-18-2022 Albumin [Mass/Vol] 3.8 g/dL 3.2-5.5 [facility] C reactive protein [Mass/vol ume] in Serum or PlasmaOrdered By: Delfino Reese on 01-18-2022 CRP [Mass/Vol] 1.9 mg/dL 0.0-1.0 [facility] Creatinine and Glomerular fi ltration rate.predicted panel (S/P/Bld)Ordered By: Delfino Reese on 01-18-2022 Creatinine [Mass/Vol] 0.57 mg/dL 0.44-1.03 [facility] Erythrocyte sedimentation ra te by Photometric methodOrdered By: Delfino Reese on 01-18-2022 ESR Photometric method (Bld) [Velocity] 8 mm/hr 0-19 [facility] Estimated glomerular filtrat ion rate (GFR) non- AmericanOrdered By: Delfino Reese on 01-18-2022 GFR/1.73 sq M.predicted among non-blacks MDRD (S/P/Bld) [Vol rate/Area] > 60 mL/Min [facility] Folate [Mass/volume] in Seru m or PlasmaOrdered By: Delfino Reese on 01-18-2022 Folate [Mass/Vol] 10.4 ng/mL >5.9 [facility] Comment on above: Folate reference ran ge: >5.9 ng/mlThe WHO technical consultation on folate and vitamin [id number] has determined that folate concentrations lessthan 4 ng/ml are considered deficient. Globulin Calc (S) [Mass/Vol] Ordered By: Delfino Reese on 01-18-2022 Globulin (S) [Mass/Vol] 3.2 g/dL [facility] Laboratory - Chemistry and C hemistry - challengeOrdered By: Delfino Reese on 01-18-2022 Cobalamin (Vitamin B12) [Mass/Vol] 588 pg/mL 180-914 [facility] No Panel InformationOrdered By: Delfino Reese on 01-18-2022 Estimated GFR () > 60 mL/Min [facility] Comment on above: GFR estimated refere nce range: According to KDOQI guidelines, <60 ml/min/1.73m2 is sufficient to diagnose a patient with chronic kidney disease. Pharmacy Creatinine Clearance (Chem N/A [facility] Protein [Mass/volume] in Ser um or PlasmaOrdered By: Delfino Reese on 01-18-2022 Protein [Mass/Vol] 7.0 g/dL 6.1-7.9 [facility] Serum or plasma alanine montes otransferase measurement without P-5'-P (enzymatic activiOrdered By: Delfino Reese on 01-18-2022 ALT No additional P-5'-P [Catalytic activity/Vol] 58 U/L 10-60 [facility] Serum or plasma albumin/glob ulin mass ratioOrdered By: Delfino Reese on 01-18-2022 Albumin/Globulin [Mass ratio] 1.2 {ratio} [facility] Serum or plasma alkaline florencio sphatase measurement (enzymatic activity/volume)Ordered By: Delfino Reese on 01-18-2022 ALP [Catalytic activity/Vol] 90 U/L 32-92 [facility] Serum or plasma anion gap de terminationOrdered By: Delfino Reese on 01-18-2022 Anion gap [Moles/Vol] 16.5 mmol/L 6.0-15.[address] [facility] Serum or plasma aspartate am inotransferase measurement (enzymatic activity/volume)Ordered By: Delfino Reese on 01-18-2022 AST [Catalytic activity/Vol] 84 U/L 10-42 [facility] Serum or plasma calcium archie urement (mass/volume)Ordered By: Delfino Reese on 01-18-2022 Calcium [Mass/Vol] 9.2 mg/dL 8.2-10.2 [facility] Serum or plasma chloride luz surement (moles/volume)Ordered By: Delfino Reese on 01-18-2022 Chloride [Moles/Vol] 105 mmol/L 95-114 [facility] Serum or plasma glucose archie urement (mass/volume)Ordered By: Delfino Reese on 01-18-2022 Glucose [Mass/Vol] 114 mg/dL 70-100 [facility] Comment on above: ADA recommended refe rence rangeRandom Glucose Reference Range is dependent on time and content of last meal. Glucose of more than 200 mg/dL in a nonstressed, ambulatory subject supports the diagnosis of Diabetes Mellitus. Serum or plasma potassium me asurement (moles/volume)Ordered By: Delfino Reese on 01-18-2022 Potassium [Moles/Vol] 3.5 mmol/L 3.5-5.1 [facility] Serum or plasma sodium measu rement (moles/volume)Ordered By: Delfino Reese on 01-18-2022 Sodium [Moles/Vol] 143 mmol/L 136-146 [facility] Serum or plasma total biliru bin measurement (mass/volume)Ordered By: Delfino Reese on 01-18-2022 Bilirubin [Mass/Vol] 0.8 mg/dL 0.3-1.2 [facility] Serum or plasma total carbon dioxide measurement (moles/volume)Ordered By: Delfino Reese on 01-18-2022 CO2 [Moles/Vol] 25.0 mmol/L 22.0-30.0 [facility] Serum or plasma urea nitroge n measurement (mass/volume)Ordered By: Delfino Reese on 01-18-2022 Urea nitrogen [Mass/Vol] 1 mg/dL 9- [facility] TSH DL <= 0.005 mIU/L QnOrde red By: Delfino Reese on 01-18-2022 TSH Qn 7.46 m[IU]/L 0.45-5.33 [facility] Thyroxine (T4) free [Mass/vo lume] in Serum or PlasmaOrdered By: Delfino Reese on 01-18-2022 Free T4 [Mass/Vol] 0.71 ng/dL 0.61-1.12 [facility] Bacteria identified Anaer cx Nom (Unsp spec)Ordered By: Delfino Reese on 12-26-2021 Anaerobic microbial culture No Anaerobes Isolated 3 Days [facility] ABO and Rh group post transf usion reaction Nom (Bld)Ordered By: Delfino Reese on 12-23-2021 Microscopic observation Gram stain Nom (Unsp spec) [facility] Albumin [Mass/volume] in Cer ebral spinal fluidOrdered By: Delfino Reese on 12-23-2021 Albumin (CSF) [Mass/Vol] 14 mg/dL 11-04 [facility] Albumin [Mass/volume] in Ser um or PlasmaOrdered By: Delfino Reese on 12-23-2021 Albumin [Mass/Vol] 4.2 g/dL 3.8-4.8 [facility] CSF IgG/albumin ratioOrdered By: Delfino Reese on 12-23-2021 IgG/Albumin (CSF) [Mass ratio] 0.10 0.00-0.25 [facility] Cerebrospinal fluid IgG inde xOrdered By: Delfino Reese on 12-23-2021 IgG clearance/Albumin clearance (S+CSF) [Ratio] 0.6 0.0-0.7 [facility] Cerebrospinal fluid glucose measurement (mass/volume)Ordered By: Delfino Reese on 12-23-2021 Glucose (CSF) [Mass/Vol] 87 mg/dL 40-70 [facility] Cerebrospinal fluid post-antonia trifugation appearance determinationOrdered By: Delfino Reese on 12-23-2021 Appearance (Spun CSF) Colorless Colorless [facility] Cerebrospinal fluid sample t ube volume measurementOrdered By: Delfino Reese on 12-23-2021 Specimen volume (CSF) 2.0 mL [facility] Color CSFOrdered By: Delfino Reese on 12-23-2021 Color (CSF) Colorless Colorless [facility] IgG [Mass/volume] in Cerebra l spinal fluidOrdered By: Delfino Reese on 12-23-2021 IgG (CSF) [Mass/Vol] 1.4 mg/dL 0.0-6.7 [facility] IgG [Mass/volume] in Serum o r PlasmaOrdered By: Delfino Reese on 12-23-2021 IgG [Mass/Vol] 708 mg/dL 586-1602 [facility] IgG synthesis rate [Mass/aleksey e] in Serum and CSF by calculationOrdered By: Delfino Reese on 12-23-2021 IgG synthesis rate Calc (S+CSF) [Mass/Time] -1.0 mg/day -9.9 TO +3.3 [facility] Comment on above: Performed at: [facility] [address] [place] [id number] Complex Human Resources Manager: Torsten Vidal PhD, Phone: [phone] Performed at: [facility] [address] [id number] Director: Torsten Vidal PhD, Phone: [phone] Manual cerebrospinal fluid e rythrocytes count (number/volume)Ordered By: Delfino Reese on 12-23-2021 RBC Manual cnt (CSF) [#/Vol] 77 /uL [facility] Comment on above: The reference interv al and other method performance specifications have not been established for this body fluid. The test result must be integrated into the clinical context for interpretation. No Panel InformationOrdered By: Delfino Reese on 12-23-2021 CSF Appearance Clear Clear [facility] CSF Eosinophils N/A [facility] CSF Lymphocytes 1 [facility] Comment on above: The reference interv al and other method performance specifications have not been established for this body fluid. The test result must be integrated into the clinical context for interpretation. CSF Monocytes 1 [facility] Comment on above: The reference interv al and other method performance specifications have not been established for this body fluid. The test result must be integrated into the clinical context for interpretation. CSF Myelin Basic Protein 3.3 ng/mL 0.0-3.7 [facility] Comment on above: Results of this test are labeled for research purposes only by the assay's die cast operator. The performance characteristics of this assay have not been established by the die cast operator. The result should not be used for treatment or for diagnostic purposes without confirmation of the diagnosis by another medically established diagnostic product or procedure. The performance characteristics were determined by [employer]. Performed at: [facility] [id number] Complex Human Resources Manager: Charlie Manriquez MD, Phone: [phone] Results of this test are labeled for research purposes onlyby the assay's die cast operator. The performancecharacteristics of this assay have not been established bythe die cast operator. The result should not be used fortreatment or for diagnostic purposes without confirmationof the diagnosis by another medically establisheddiagnostic product or procedure. The performancecharacteristics were determined by [employer].Performed at: [facility] [address] [id number] Director: Charlie Manriquez MD, Phone: [phone] CSF Neutrophils N/A [facility] CSF Total Cells Counted 2 [facility] CSF Tube Number Tube number: 1 [facility] Nucleated cells [#/volume] i n Cerebral spinal fluid by Manual countOrdered By: Delfino Reese on 12-23-2021 Nucleated cells Manual cnt (CSF) [#/Vol] 0.002 10*3/uL 0-5 [facility] Protein [Mass/volume] in Cer ebral spinal fluidOrdered By: Delfino Reese on 12-23-2021 Protein (CSF) [Mass/Vol] 23 mg/dL 15-45 [facility] Protein fractions.oligoclona l bands.intrathecal [Presence] in Serum and CSFOrdered By: Delfino Reese on 12-23-2021 Protein fractions.oligoclonal bands.intrathecal Ql (S+CSF) See comment . [facility] Comment on above: Zero (0) oligoclonal bands were observed in the CSF. Interpretation: Criteria for Positivity: Four (4) or more oligoclonal bands observed only in the CSF have been shown to be most consistent with MS using our method. [Osorio Isaacs Weinshenker BG, and Rebecca PRADO: Cerebrospinal Fluid Oligoclonal Bands in the Diagnosis of Multiple Sclerosis. Am J Clin Pathol 120(5):672-675, 2003]. Oligoclonal bands that are present only in the CSF have been associated with a variety of inflammatory brain diseases such as multiple sclerosis (MS), subacute encephalitis, neurosyphilis, etc. Increased IgG in the CSF is not specific for MS, but is an indication of chronic neural inflammation. Clinical correlation indicated. Approximately 2-3% of clinically confirmed MS patients show little or no evidence of oligoclonal bands in the CSF; however oligoclonal bands may develop as the disease progresses. Oligoclonal Banding testing performed using Isoelectric Focusing (IEF) and immunoblotting methodology. Performed at: [address] [id number] Complex Human Resources Manager: Torsten Vidal PhD, Phone: [phone] Zero (0) oligoclonal bands were observed in the CSF.Interpretation: Criteria for Positivity: Four (4) or more oligoclonalbands observed only in the CSF have been shown to be mostconsistent with MS using our method. [Dianelys Isaacs Weinshenker BG, and Rebecca PRADO: Cerebrospinal FluidOligoclonal Bands in the Diagnosis of Multiple Sclerosis.Am J Clin Pathol 120(5):672-675, 2003]. Oligoclonal bands that are present only in the CSF havebeen associated with a variety of inflammatory braindiseases such as multiple sclerosis (MS), subacuteencephalitis, neurosyphilis, etc. Increased IgG in the CSFis not specific for MS, but is an indication of chronicneural inflammation. Clinical correlation indicated. Approximately 2-3% of clinically confirmed MS patientsshow little or no evidence of oligoclonal bands in theCSF; however oligoclonal bands may develop as the diseaseprogresses. Oligoclonal Banding testing performed using IsoelectricFocusing (IEF) and immunoblotting methodology.Performed at: [address] [id number] Director: Torsten Vidal PhD, Phone: [phone] Basophils Auto (Bld) [#/Vol] Ordered By: Avery Villegas on 11-25-2021 Basophils (Bld) [#/Vol] 0.0 10*3/uL 0.0-0.2 [facility] Basophils/100 WBC Auto (Bld) Ordered By: Avery Villegas on 11-25-2021 Basophils/100 WBC (Bld) 0.5 % . [facility] Blood hemoglobin measurement (mass/volume)Ordered By: Avery Villegas on 11-25-2021 Hemoglobin (Bld) [Mass/Vol] 15.4 g/dL 11.8-15.4 [facility] Blood leukocytes automated c ount (number/volume)Ordered By: Avery Villegas on 11-25-2021 WBC (Bld) [#/Vol] 5.3 10*3/uL 4.5-11.0 [facility] Blood thiamine measurement ( moles/volume)Ordered By: Avery Villegas on 11-25-2021 Thiamine (Bld) [Moles/Vol] 113.7 nmol/L 66.5-200.0 [facility] Comment on above: This test was develo ped and its performance characteristics determined by [employer]. It has not been cleared or approved by the Food and Drug Administration. Performed at: [address] [id number] Complex Human Resources Manager: Charlie Manriquez MD, Phone: [phone] This test was develo ped and its performance characteristicsdetermined by [employer]. It has not been cleared orapproved by the Food and Drug Administration.Performed at: - [facility] [id number] Director: Charlie Manriquez MD, Phone: [phone] Body fluid albumin measureme nt (mass/volume)Ordered By: Avery Villegas on 11-25-2021 Albumin (Body fld) [Mass/Vol] 4.0 g/dL 3.2-5.5 [facility] Creatinine and Glomerular fi ltration rate.predicted panel (S/P/Bld)Ordered By: Avery Villegas on 11-25-2021 Creatinine [Mass/Vol] 0.67 mg/dL 0.44-1.03 [facility] Eosinophils Auto (Bld) [#/Vo l]Ordered By: Avery Villegas on 11-25-2021 Eosinophils (Bld) [#/Vol] 0.1 10*3/uL 0.0-0.45 [facility] Eosinophils/100 WBC Auto (Bl d)Ordered By: Avery Villegas on 11-25-2021 Eosinophils/100 WBC (Bld) 1.3 % . [facility] Erythrocyte distribution wid th Auto (RBC) [Ratio]Ordered By: Avery Villegas on 11-25-2021 Erythrocyte distribution width (RBC) [Ratio] 13.5 % 11.9-15.3 [facility] Erythrocyte sedimentation ra te by Photometric methodOrdered By: Avery Villegas on 11-25-2021 ESR Photometric method (Bld) [Velocity] 14 mm/hr [facility] Estimated glomerular filtrat ion rate (GFR) non- AmericanOrdered By: Avery Villegas on 11-25-2021 GFR/1.73 sq M.predicted among non-blacks MDRD (S/P/Bld) [Vol rate/Area] > 60 mL/Min [facility] Folate [Mass/volume] in Seru m or PlasmaOrdered By: Avery Villegas on 11-25-2021 Folate [Mass/Vol] 9.2 ng/mL >5.9 [facility] Comment on above: Folate reference ran ge: >5.9 ng/ml The WHO technical consultation on folate and vitamin b12 deficiencies has determined that folate concentrations less than 4 ng/ml are considered deficient. Folate reference ran ge: >5.9 ng/mlThe WHO technical consultation on folate and vitamin [id number] has determined that folate concentrations lessthan 4 ng/ml are considered deficient. Globulin Calc (S) [Mass/Vol] Ordered By: Avery Villegas on 11-25-2021 Globulin (S) [Mass/Vol] 2.9 g/dL [facility] Hematocrit Auto (Bld) [Volum e fraction]Ordered By: Avery Villegas on 11-25-2021 Hematocrit (Bld) [Volume fraction] 45.2 % 34.0-46.4 [facility] - Chemistry and C hemistry - challengeOrdered By: Avery Villegas on 11-25-2021 Cobalamin (Vitamin B12) [Mass/Vol] 421 pg/mL 180-914 [facility] - Hematology and Cell countsOrdered By: Avery Villegas on 11-25-2021 Nucleated RBC/100 WBC (Bld) [Ratio] 0.6 % 0-0.5 [facility] Lymphocytes Auto (Bld) [#/Vo l]Ordered By: Avery Villegas on 11-25-2021 Lymphocytes (Bld) [#/Vol] 0.8 10*3/uL 1.00-4.8 [facility] Lymphocytes/100 WBC Auto (Bl d)Ordered By: Avery Villegas on 11-25-2021 Lymphocytes/100 WBC (Bld) 14.8 % . [facility] MCH Auto (RBC) [Entitic mass ]Ordered By: Avery Villegas on 11-25-2021 MCH (RBC) [Entitic mass] 32.3 pg 24.7-34.3 [facility] MCHC Auto (RBC) [Mass/Vol]Or dered By: Avery Villegas on 11-25-2021 MCHC (RBC) [Mass/Vol] 34.0 g/dL 32.0-35.0 [facility] MCV Auto (RBC) [Entitic vol] Ordered By: Avery Villegas on 11-25-2021 MCV (RBC) [Entitic vol] 95.1 fL 80-100 [facility] Monocytes Auto (Bld) [#/Vol] Ordered By: Avery Villegas on 11-25-2021 Monocytes (Bld) [#/Vol] 0.2 10*3/uL 0.0-0.8 [facility] Monocytes/100 WBC Auto (Bld) Ordered By: Avery Villegas on 11-25-2021 Monocytes/100 WBC (Bld) 3.4 % . [facility] Neutrophils Auto (Bld) [#/Vo l]Ordered By: Avery Villegas on 11-25-2021 Neutrophils (Bld) [#/Vol] 4.2 10*3/uL 1.8-7.7 [facility] Neutrophils/100 WBC Auto (Bl d)Ordered By: Avery Villegas on 11-25-2021 Neutrophils/100 WBC (Bld) 80.0 % . [facility] No Panel InformationOrdered By: Avery iVllegas on 11-25-2021 Estimated GFR () > 60 mL/Min [facility] Comment on above: GFR estimated refere nce range: According to KDOQI guidelines, <60 ml/min/1.73m2 is sufficient to diagnose a patient with chronic kidney disease. Pharmacy Creatinine Clearance (Chem N/A [facility] Platelet mean volume Auto (B ld) [Entitic vol]Ordered By: Avery Villegas on 11-25-2021 Platelet mean volume (Bld) [Entitic vol] 9.1 fL 6.3-10.7 [facility] Platelets Auto (Bld) [#/Vol] Ordered By: Avery Villegas on 11-25-2021 Platelets (Bld) [#/Vol] 210 10*3/uL 150-450 [facility] Protein [Mass/volume] in Ser um or PlasmaOrdered By: Avery Villegas on 11-25-2021 Protein [Mass/Vol] 6.9 g/dL 6.1-7.9 [facility] RBC Auto (Bld) [#/Vol]Ordere d By: Avery Villegas on 11-25-2021 RBC (Bld) [#/Vol] 4.75 10*6/uL 3.60-5.00 [facility] Serum or plasma alanine montes otransferase measurement without P-5'-P (enzymatic activiOrdered By: Avery Villegas on 11-25-2021 ALT No additional P-5'-P [Catalytic activity/Vol] 130 U/L 10-60 [facility] Serum or plasma albumin/glob ulin mass ratioOrdered By: Avery Villegas on 11-25-2021 Albumin/Globulin [Mass ratio] 1.4 {ratio} [facility] Serum or plasma alkaline florencio sphatase measurement (enzymatic activity/volume)Ordered By: Avery Villegas on 11-25-2021 ALP [Catalytic activity/Vol] 74 U/L 32-92 [facility] Serum or plasma aspartate am inotransferase measurement (enzymatic activity/volume)Ordered By: Avery Villegas on 11-25-2021 AST [Catalytic activity/Vol] 117 U/L 10-42 [facility] Serum or plasma calcium archie urement (mass/volume)Ordered By: Avery Villegas on 11-25-2021 Calcium [Mass/Vol] 9.6 mg/dL 8.2-10.2 [facility] Serum or plasma chloride luz surement (moles/volume)Ordered By: Avery Villegas on 11-25-2021 Chloride [Moles/Vol] 98 mmol/L 95-114 [facility] Serum or plasma glucose archie urement (mass/volume)Ordered By: Avery Villegas on 11-25-2021 Glucose [Mass/Vol] 121 mg/dL 70-100 [facility] Comment on above: ADA recommended refe rence range Random Glucose Reference Range is dependent on time and content of last meal. Glucose of more than 200 mg/dL in a nonstressed, ambulatory subject supports the diagnosis of Diabetes Mellitus. ADA recommended refe rence rangeRandom Glucose Reference Range is dependent on time and content of last meal. Glucose of more than 200 mg/dL in a nonstressed, ambulatory subject supports the diagnosis of Diabetes Mellitus. Serum or plasma potassium me asurement (moles/volume)Ordered By: Avery Villegas on 11-25-2021 Potassium [Moles/Vol] 3.6 mmol/L 3.5-5.1 [facility] Serum or plasma sodium measu rement (moles/volume)Ordered By: Avery Villegas on 11-25-2021 Sodium [Moles/Vol] 139 mmol/L 136-146 [facility] Serum or plasma total biliru bin measurement (mass/volume)Ordered By: Avery Villegas on 11-25-2021 Bilirubin [Mass/Vol] 0.8 mg/dL 0.3-1.2 [facility] Serum or plasma total carbon dioxide measurement (moles/volume)Ordered By: Avery Villegas on 11-25-2021 CO2 [Moles/Vol] 28.4 mmol/L 22.0-30.0 [facility] Serum or plasma urea nitroge n measurement (mass/volume)Ordered By: Avery Villegas on 11-25-2021 Urea nitrogen [Mass/Vol] 5 mg/dL 9- [facility] TSH DL <= 0.005 mIU/L QnOrde red By: Avery Villegas on 11-25-2021 TSH Qn 2.02 m[IU]/L 0.45-5.33 [facility] AMYLASEon 11-20-2021 Amylase [Catalytic activity/Vol] 15 U/L Critically low 25-115 [facility] Comment on above: Performed By: #### L IPA, MADDY, CMP #### [facility] [address] [address] [address] Angela Aguero CBC W MANUAL DIFFon 11-21-19 22 ATYPICAL LYMPH # Normal [facility] Comment on above: Performed By: #### C BCMAN #### [facility] [address] [address] [address] Angela Aguero ATYPICAL LYMPH % Normal [facility] Comment on above: Performed By: #### C BCMAN #### [facility] [address] [address] [address] Angela Aguero BAND # 0.2 103/ul Normal 0.0-0.3 [facility] Comment on above: Performed By: #### C BCMAN #### [facility] [address] [address] [address] Angela Aguero BAND % 3 % Normal 0-5 [facility] Comment on above: Performed By: #### C BCMAN #### [facility] [address] [address] [address] Angela Aguero BASOM # 0.00 103/ul Normal 0.00-0.10 [facility] Comment on above: Performed By: #### C BCMAN #### [facility] [address] [address] [address] Angela Aguero BASOM % 0.0 % Critically low 0.2-2.[address] [facility] Comment on above: Performed By: #### C BCMAN #### [facility] [address] [place] [address] Dr. Angela Aguero BLAST # Normal [facility] Comment on above: Performed By: #### C BCSOLANGE #### [facility] [address] [place] [address] Dr. Angela Aguero BLAST % Normal [facility] Comment on above: Performed By: #### C BCSOLANGE #### [facility] [address] [place] [address] Dr. Angela Aguero CORRECTED WBC Normal 4.0-11.0 [facility] Comment on above: Performed By: #### C KRISHAN #### [facility] [address] [place] [address] Dr. Angela Aguero EOS # 0.00 103/ul Normal 0.00-0.70 [facility] Comment on above: Performed By: #### C KRISHAN #### [facility] [address] [place] [address] Dr. Angela Aguero EOS% 0.0 % Critically low 0.9-7.0 [facility] Comment on above: Performed By: #### C KRISHAN #### [facility] [address] [place] [address] Dr. Angela Aguero HCT 41.2 % Normal 36.0-48.0 [facility] Comment on above: Performed By: #### C BCSOLANGE #### [facility] [address] [place] [address] Dr. Angela Aguero HGB 14.2 g/dl Normal 12.0-16.0 [facility] Comment on above: Performed By: #### C BCSOLANGE #### [facility] [address] [place] [address] Dr. Angela Aguero LYMPHM # 0.19 103/ul Critically low 1.20-3.80 [facility] Comment on above: Performed By: #### C BCSOLANGE #### [facility] [address] [place] [address] Dr. Angela Aguero LYMPHM% 3.0 % Critically low 20.5-60.0 [facility] Comment on above: Performed By: #### C KRISHAN #### [facility] [address] [place] [address] Dr. Angela Aguero MCH 32.4 pg Normal 26.7-34.0 [facility] Comment on above: Performed By: #### C KRISHAN #### [facility] [address] [place] [address] Dr. Angela Aguero MCHC 34.5 g/dl Normal 29.9-35.2 [facility] Comment on above: Performed By: #### C KRISHAN #### [facility] [address] [place] [address] Dr. Angela Aguero MCV 94.1 fL Normal 81.0-99.0 [facility] Comment on above: Performed By: #### C KRISHAN #### [facility] [address] [place] [address] Dr. Angela Aguero METAMYELOCYTE # Normal [facility] Comment on above: Performed By: #### C KRISHAN #### [facility] [address] [place] [address] Dr. Angela Aguero METAMYELOCYTE % Normal [facility] Comment on above: Performed By: #### C KRISHAN #### [facility] [address] [place] [address] Dr. Angela Aguero MONOM# 0.32 103/ul Normal 0.30-0.80 [facility] Comment on above: Performed By: #### C KRISHAN #### [facility] [address] [place] [address] Dr. Angela Aguero MONOM% 5.0 % Normal 1.7-12.0 [facility] Comment on above: Performed By: #### C KRISHAN #### [facility] [address] [place] [address] Dr. Angela Aguero MPV 10.4 fL Normal 9.5-13.5 [facility] Comment on above: Performed By: #### C BCSOLANGE #### [facility] [address] [address] [address] Angela Aguero MYELOCYTE # Normal [facility] Comment on above: Performed By: #### C BCMAN #### [facility] [address] [address] [address] Angela Aguero MYELOCYTE % Normal [facility] Comment on above: Performed By: #### C BCSOLANGE #### [facility] [address] [address] [address] Angela Aguero NRBC Normal [facility] Comment on above: Performed By: #### C KRISHAN #### [facility] [address] [address] [address] Angela Agureo PLT 204 103/ul Normal 150-450 [facility] Comment on above: Performed By: #### C KRISHAN #### [facility] [address] [address] [address] Angela Aguero RBC 4.38 106/ul Normal 4.20-5.40 [facility] Comment on above: Performed By: #### C KRISHAN #### [facility] [address] [address] [address] Angela Aguero RDW 12.4 % Normal 11.0-15.0 [facility] Comment on above: Performed By: #### C KRISHAN #### [facility] [address] [address] [address] Angela Aguero SEG # 5.70 103/ul Normal 1.40-6.50 [facility] Comment on above: Performed By: #### C BCSOLANGE #### [facility] [address] [address] [address] Angela Aguero SEG % 89.0 % Critically high 43.0-75.0 [facility] Comment on above: Performed By: #### C BCSOLANGE #### [facility] [address] [address] [address] Angela Aguero WBC 6.4 103/ul Normal 4.0-11.0 [facility] Comment on above: Performed By: #### C BCSOLANGE #### [facility] [address] [place] [address] Dr. Angela Aguero CRPon 11-20-2021 CRP [Mass/Vol] mg/L Normal <=1.0 [facility] Comment on above: Performed By: #### L IPA, MADDY, CMP #### [facility] [address] [place] [address] Dr. Angela Aguero LIPASEon 11-20-2021 Lipase [Catalytic activity/Vol] 28.0 U/L Critically low 73.0-393.0 [facility] Comment on above: Performed By: #### L IPA MADDY, CMP #### [facility] [address] [place] [address] Dr. Angela Aguero PROF 14(COMP METB)on 022 Albumin [Mass/Vol] 3.4 g/dL Normal 3.4-5.0 [facility] Comment on above: Performed By: #### L LUIS MADDY, CMP #### [facility] [address] [place] [address] Dr. Angela Aguero Albumin/Globulin [Mass ratio] 1.0 {ratio} Normal [facility] Comment on above: Performed By: #### L LUIS MADDY, CMP #### [facility] [address] [place] [address] Dr. Angela Aguero ALP [Catalytic activity/Vol] 63 U/L Normal 46-116 [facility] Comment on above: Performed By: #### L LUIS MADDY, CMP #### [facility] [address] [place] [address] Dr. Angela Aguero ALT [Catalytic activity/Vol] 55 U/L Normal 14-59 [facility] Comment on above: Performed By: #### L LUIS MADDY, CMP #### [facility] [address] [place] [address] Dr. Angela Aguero Anion gap [Moles/Vol] 13.3 mmol/L Normal [facility] Comment on above: Performed By: #### L IPA MADDY, CMP #### [facility] [address] [place] [address] Dr. Angela Aguero AST [Catalytic activity/Vol] 39 U/L Critically high 15-37 [facility] Comment on above: Performed By: #### L MADDY SMITH, CMP #### [facility] [address] [address] [address] Angela Aguero Bilirubin [Mass/Vol] 1.1 mg/dL Critically high 0.2-1.0 [facility] Comment on above: Performed By: #### L MADDY SMITH, CMP #### [facility] [address] [place] [address] Dr. Angela Aguero Calcium [Mass/Vol] 7.9 mg/dL Critically low 8.5-10.1 [facility] Comment on above: Performed By: #### L MADDY SMITH, CMP #### [facility] [address] [place] [address] Dr. Angela Aguero Chloride [Moles/Vol] 103 mmol/L Normal 98-107 [facility] Comment on above: Performed By: #### L MADDY SMITH, CMP #### [facility] [address] [place] [address] Dr. Angela Aguero CO2 [Moles/Vol] 26.9 mmol/L Normal 21.0-32.0 [facility] Comment on above: Performed By: #### L MADDY SMITH, CMP #### [facility] [address] [place] [address] Dr. Angela Aguero Creatinine [Mass/Vol] 0.81 mg/dL Normal 0.55-1.02 [facility] Comment on above: Performed By: #### L MADDY SMITH, CMP #### [facility] [address] [place] [address] Dr. Angela Aguero EGFR-AF BULGARIAN >60 Normal >=60 [facility] Comment on above: Performed By: #### L MADDY SMITH, CMP #### [facility] [address] [place] [address] Dr. Angela Aguero EGFR-NON AF BULGARIAN >60 Normal >=60 [facility] Comment on above: Performed By: #### L MADDY SMITH, CMP #### [facility] [address] [address] [address] Angela Aguero Globulin (S) [Mass/Vol] 3.3 g/dL Normal [facility] Comment on above: Performed By: #### L MADDY SMITH, CMP #### [facility] [address] [address] [address] Angela Aguero Glucose [Mass/Vol] 185 mg/dL Critically high 74-106 T [facility] Comment on above: Performed By: #### L MADDY SMITH, CMP #### [facility] [address] [address] [address] Angela Aguero Potassium [Moles/Vol] 3.2 mmol/L Critically low 3.5-5.1 [facility] Comment on above: Performed By: #### L MADDY SMITH, CMP #### [facility] [address] [place] [address] Dr. Angela Aguero Protein [Mass/Vol] 6.7 g/dL Normal 6.4-8.[address] [facility] Comment on above: Performed By: #### L MADDY SMITH, CMP #### [facility] [address] [address] [address] Angela Aguero Sodium [Moles/Vol] 140 mmol/L Normal 136-145 [facility] Comment on above: Performed By: #### L MADDY SMITH, CMP #### [facility] [address] [place] [address] Dr. Angela Aguero Urea nitrogen [Mass/Vol] 8.0 mg/dL Normal 7.0-18.0 [facility] Comment on above: Performed By: #### L MADDY SMITH, CMP #### [facility] [address] [place] [address] Dr. Angela Aguero Urea nitrogen/Creatinine [Mass ratio] 9.9 mg/mg Normal [facility] Comment on above: Performed By: #### L MADDY SMITH, CMP #### [facility] [address] [address] [address] Angela Aguero SED RATE [facility] 2021 SED RATE 3 mm/hr Normal <=20 [facility] Comment on above: Performed By: #### S EDR #### [facility] [address] [place] [address] Dr. Angela Aguero AMYLASEon 11-19-2021 Amylase [Catalytic activity/Vol] 17 U/L Critically low 25-115 [facility] Comment on above: Performed By: #### C MP, MADDY, CRP, LIPA #### [facility] [address] [place] [address] Dr. Angela Aguero CBC AUTO DIFFon 11-19-2021 BASO # 0.0 103/ul Normal 0.0-0.1 [facility] Comment on above: Performed By: #### L MADDY SMITH, CMP #### [facility] [address] [place] [address] Dr. Angela Aguero Basophils/100 WBC (Bld) 0.6 % Normal 0.2-2.0 [facility] Comment on above: Performed By: #### L MADDY SMITH, CMP #### [facility] [address] [place] [address] Dr. Angela Aguero EO # 0.0 103/ul Normal 0.0-0.7 [facility] Comment on above: Performed By: #### L MADDY SMITH, CMP #### [facility] [address] [place] [address] Dr. Angela Aguero Eosinophils/100 WBC (Bld) 0.0 % Critically low 0.9-7.0 [facility] Comment on above: Performed By: #### L LUIS MADDY, CMP #### [facility] [address] [place] [address] Dr. Angela Aguero Erythrocyte distribution width (RBC) [Ratio] 12.9 % Normal 11.0-15.0 [facility] Comment on above: Performed By: #### L MADDY SMITH, CMP #### [facility] [address] [place] [address] Dr. Angela Aguero Hematocrit (Bld) [Volume fraction] 43.3 % Normal 36.0-48.0 [facility] Comment on above: Performed By: #### L MADDY SMITH, CMP #### [facility] [address] [address] [address] Angela Aguero Hemoglobin (Bld) [Mass/Vol] 14.7 g/dL Normal 12.0-16.0 [facility] Comment on above: Performed By: #### L IPA MADDY, CMP #### [facility] [address] [address] [address] Angela Aguero IG # 0.02 10e3/ul Normal 0.00-0.03 [facility] Comment on above: Performed By: #### L IPA MADDY, CMP #### [facility] [address] [place] [address] Dr. Angela Aguero IG % 0.6 % Critically high 0.0-0.5 [facility] Comment on above: Performed By: #### L LUIS MADDY, CMP #### [facility] [address] [place] [address] Dr. Angela Aguero LYMPH # 0.3 103/ul Critically low 1.2-3.[address] [facility] Comment on above: Performed By: #### L LUIS MADDY, CMP #### [facility] [address] [place] [address] Dr. Angela Aguero Lymphocytes/100 WBC (Bld) 8.9 % Critically low 20.5-60.0 [facility] Comment on above: Performed By: #### L LUIS MADDY, CMP #### [facility] [address] [place] [address] Dr. Angela Aguero MANUAL DIFF REQ NO Normal [facility] Comment on above: Performed By: #### L LUIS MADDY, CMP #### [facility] [address] [place] [address] Dr. Angela Aguero MCH (RBC) [Entitic mass] 32.5 pg Normal 26.7-34.0 [facility] Comment on above: Performed By: #### L IPA MADDY, CMP #### [facility] [address] [place] [address] Dr. Angela Aguero MCHC (RBC) [Mass/Vol] 33.9 g/dL Normal 29.9-35.2 [facility] Comment on above: Performed By: #### L MADDY SMITH, CMP #### [facility] [address] [place] [address] Dr. Angela Aguero MCV (RBC) [Entitic vol] 95.6 fL Normal 81.0-99.0 [facility] Comment on above: Performed By: #### L MADDY SMITH, CMP #### [facility] [address] [place] [address] Dr. Anglea Aguero MONO # 0.0 103/ul Critically low 0.3-0.8 [facility] Comment on above: Performed By: #### L MADDY SMITH, CMP #### [facility] [address] [place] [address] Dr. Angela Aguero Monocytes/100 WBC (Bld) 0.6 % Critically low 1.7-12.0 [facility] Comment on above: Performed By: #### L MADDY SMITH, CMP #### [facility] [address] [place] [address] Dr. Angela Aguero NEUT # 3.1 103/ul Normal 1.4-6.5 [facility] Comment on above: Performed By: #### L MADDY SMITH, CMP #### [facility] [address] [place] [address] Dr. Angela Aguero Neutrophils/100 WBC (Bld) 89.3 % Critically high 43.0-75.0 [facility] Comment on above: Performed By: #### L MADDY SMITH, CMP #### [facility] [address] [place] [address] Dr. Anegla Aguero Platelet mean volume (Bld) [Entitic vol] 10.6 fL Normal 9.5-13.5 [facility] Comment on above: Performed By: #### L MADDY SMITH, CMP #### [facility] [address] [place] [address] Dr. Angela Aguero PLT 212 103/ul Normal 150-450 [facility] Comment on above: Performed By: #### L MADDY SMITH, CMP #### [facility] [address] [place] [address] Dr. Angela Aguero RBC 4.53 106/ul Normal 4.20-5.40 [facility] Comment on above: Performed By: #### L IPA MADDY, CMP #### [facility] [address] [place] [address] Dr. Angela Aguero WBC 3.5 103/ul Critically low 4.0-11.0 [facility] Comment on above: Performed By: #### L IPA MADDY, CMP #### [facility] [address] [place] [address] Dr. Angela Aguero CRPon 11-19-2021 CRP [Mass/Vol] mg/L Normal <=1.0 [facility] Comment on above: Performed By: #### C MP, MADDY, CRP, LIPA #### [facility] [address] [place] [address] Dr. Angela Aguero ER URINE PROFILEon 2 Bilirubin Ql (U) Negative Normal NEGATIVE [facility] Comment on above: Performed By: #### L IPA MADDY, CMP #### [facility] [address] [place] [address] Dr. Angela Aguero Clarity (U) CLEAR Normal CLEAR [facility] Comment on above: Performed By: #### L LUIS MADDY, CMP #### [facility] [address] [place] [address] Dr. Angela Aguero Color (U) DK. ORANGE Abnormal YELLOW [facility] Comment on above: Performed By: #### L LUIS MADDY, CMP #### [facility] [address] [place] [address] Dr. Angela Aguero ERUAHD A micrscopic examina tion will be performed if indicated. Normal [facility] Comment on above: Performed By: #### L IPA MADDY, CMP #### [facility] [address] [place] [address] Dr. Angela Aguero Glucose Ql (U) Negative Normal NEGATIVE [facility] Comment on above: Performed By: #### L IPA MADDY, CMP #### [facility] [address] [place] [address] Dr. Angela Aguero Hemoglobin Ql (U) Negative Normal NEGATIVE [facility] Comment on above: Performed By: #### L IPA, MADDY, CMP #### [facility] [address] [place] [address] Dr. Angela Aguero Ketones Ql (U) 40 mg/dl Abnormal NEGATIVE [facility] Comment on above: Performed By: #### L IPA, MADDY, CMP #### [facility] [address] [place] [address] Dr. Angela Aguero LEUKOCYTES Negative Normal NEGATIVE [facility] Comment on above: Performed By: #### L IPA, MADDY, CMP #### [facility] [address] [place] [address] Dr. Angela Aguero Nitrite Ql (U) Negative Normal NEGATIVE [facility] Comment on above: Performed By: #### L IPA, MADDY, CMP #### [facility] [address] [place] [address] Dr. Angela Aguero pH (U) 5.5 [pH] Normal 5-9 [facility] Comment on above: Performed By: #### L IPA MADDY, CMP #### [facility] [address] [place] [address] Dr. Angela Aguero Protein (U) [Mass/Vol] 30 mg/dL Abnormal NEGAT DARIO/ TRACE [facility] Comment on above: Performed By: #### L IPA MADDY, CMP #### [facility] [address] [place] [address] Dr. Angela Aguero SPEC GRAVITY >=1.030 Abnormal 1.005-<=1. 025 [facility] Comment on above: Performed By: #### L IPA MADDY, CMP #### [facility] [address] [place] [address] Dr. Angela Aguero UR MICRO IND INDICATED Normal [facility] Comment on above: Performed By: #### L IPA MADDY, CMP #### [facility] [address] [place] [address] Dr. Angela Aguero Urobilinogen Qn (U) 1.0 {Concetta'U}/dL Normal 0.2 - 1. 0 [facility] Comment on above: Performed By: #### L IPA, MADDY, CMP #### [facility] [address] [place] [address] Dr. Angela Aguero LIPASEon 11-19-2021 Lipase [Catalytic activity/Vol] 22.0 U/L Critically low 73.0-393.0 [facility] Comment on above: Performed By: #### C MP, MADDY, CRP, LIPA #### [facility] [address] [place] [address] Dr. Angela Aguero PROF 14(COMP METB)on 022 Albumin [Mass/Vol] 3.7 g/dL Normal 3.4-5.0 [facility] Comment on above: Performed By: #### C MP, MADDY, CRP, LIPA #### [facility] [address] [place] [address] Dr. Angela Aguero Albumin/Globulin [Mass ratio] 1.0 {ratio} Normal [facility] Comment on above: Performed By: #### C MP, MADDY, CRP, LIPA #### [facility] [address] [place] [address] Dr. Angela Aguero ALP [Catalytic activity/Vol] 73 U/L Normal 46-116 [facility] Comment on above: Performed By: #### C MP, MADDY, CRP, LIPA #### [facility] [address] [place] [address] Dr. Angela Aguero ALT [Catalytic activity/Vol] 78 U/L Critically high 14-59 [facility] Comment on above: Performed By: #### C MP, MADDY, CRP, LIPA #### [facility] [address] [place] [address] Dr. Angela Aguero Anion gap [Moles/Vol] 16.5 mmol/L Normal [facility] Comment on above: Performed By: #### C MP, MADDY, CRP, LIPA #### [facility] [address] [place] [address] Dr. Angela Aguero AST [Catalytic activity/Vol] 62 U/L Critically high 15-37 [facility] Comment on above: Performed By: #### C MP, MADDY, CRP, LIPA #### [facility] [address] [place] [address] Dr. Angela Aguero Bilirubin [Mass/Vol] 1.3 mg/dL Critically high 0.2-1.0 [facility] Comment on above: Performed By: #### C MP, MADDY, CRP, LIPA #### [facility] [address] [place] [address] Dr. Angela Aguero Calcium [Mass/Vol] 8.2 mg/dL Critically low 8.5-10.1 [facility] Comment on above: Performed By: #### C MP, MADDY, CRP, LIPA #### [facility] [address] [place] [address] Dr. Angela Aguero Chloride [Moles/Vol] 101 mmol/L Normal 98-107 [facility] Comment on above: Performed By: #### C MP, MADDY, CRP, LIPA #### [facility] [address] [place] [address] Dr. Angela Aguero CO2 [Moles/Vol] 23.5 mmol/L Normal 21.0-32.0 [facility] Comment on above: Performed By: #### C MP, MADDY, CRP, LIPA #### [facility] [address] [place] [address] Dr. Angela Aguero Creatinine [Mass/Vol] 0.81 mg/dL Normal 0.55-1.02 [facility] Comment on above: Performed By: #### C MP, MADDY, CRP, LIPA #### [facility] [address] [place] [address] Dr. Angela Aguero EGFR-AF BULGARIAN >60 Normal >=60 [facility] Comment on above: Performed By: #### C MP, MADDY, CRP, LIPA #### [facility] [address] [place] [address] Dr. Angela Aguero EGFR-NON AF BULGARIAN >60 Normal >=60 [facility] Comment on above: Performed By: #### C MP, MADDY, CRP, LIPA #### [facility] [address] [place] [address] Dr. Angela Aguero Globulin (S) [Mass/Vol] 3.7 g/dL Normal [facility] Comment on above: Performed By: #### C MP, MADDY, CRP, LIPA #### [facility] [address] [address] [address] Angela Aguero Glucose [Mass/Vol] 190 mg/dL Critically high 74-106 T [facility] Comment on above: Performed By: #### C MP, MADDY, CRP, LIPA #### [facility] [address] [address] [address] Angela Aguero Potassium [Moles/Vol] 4.0 mmol/L Normal 3.5-5.1 [facility] Comment on above: Performed By: #### C MP, MADDY, CRP, LIPA #### [facility] [address] [place] [address] Dr. Angela Aguero Protein [Mass/Vol] 7.4 g/dL Normal 6.4-8.[address] [facility] Comment on above: Performed By: #### C MP, MADDY, CRP, LIPA #### [facility] [address] [address] [address] Angela Aguero Sodium [Moles/Vol] 137 mmol/L Normal 136-[address] [facility] Comment on above: Performed By: #### C MP, MADDY, CRP, LIPA #### [facility] [address] [place] [address] Dr. Angela Aguero Urea nitrogen [Mass/Vol] 5.0 mg/dL Critically low 7.0-18.0 [facility] Comment on above: Performed By: #### C MP, MADDY, CRP, LIPA #### [facility] [address] [address] [address] Angela Aguero Urea nitrogen/Creatinine [Mass ratio] 6.2 mg/mg Normal [facility] Comment on above: Performed By: #### C MP, MADDY, CRP, LIPA #### [facility] [address] [address] [address] Angela Aguero SED RATE [facility] 2021 SED RATE 10 mm/hr Normal <=20 [facility] Comment on above: Performed By: #### L IPA MADDY, CMP #### [facility] [address] [address] [address] Angela Aguero URINE MICROSCOPIC ONLYon BACTERIA TRACE Abnormal NONE SEEN [facility] Comment on above: Performed By: #### L IPA, MADDY, CMP #### [facility] [address] [address] [address] Angela Aguero Bacteria identified Cx Nom (U) NOT INDICATED Normal [facility] Comment on above: Performed By: #### L IPA, MADDY, CMP #### [facility] [address] [place] [address] Dr. Angela Aguero CAST SEEN Abnormal NONE SEEN [facility] Comment on above: Performed By: #### L IPA MADDY, CMP #### [facility] [address] [place] [address] Dr. Angela Aguero Crystals LM Nom (Urine sed) NONE SEEN Normal NONE SEEN [facility] Comment on above: Performed By: #### L IPA MADDY, CMP #### [facility] [address] [place] [address] Dr. Angela Aguero Epithelial cells LM Ql (Urine sed) RARE Normal NONE SEEN /RARE [facility] Comment on above: Performed By: #### L IPA MADDY, CMP #### [facility] [address] [place] [address] Dr. Angela Aguero FINE GRANULAR CAST RARE Normal [facility] Comment on above: Performed By: #### L IPA MADDY, CMP #### [facility] [address] [place] [address] Dr. Angela Aguero HYALINE CAST RARE Normal [facility] Comment on above: Performed By: #### L IPA MADDY, CMP #### [facility] [address] [place] [address] Dr. Angela Aguero MUCOUS TRACE Abnormal NONE SEEN [facility] Comment on above: Performed By: #### L IPA MADDY, CMP #### [facility] [address] [place] [address] Dr. Angela Aguero RBC NONE SEEN Abnormal 0-2 [facility] Comment on above: Performed By: #### L MADDY SMITH, CMP #### [facility] [address] [place] [address] Dr. Angela Aguero WBC NONE SEEN Normal NONE SEEN [facility] Comment on above: Performed By: #### L LUIS MADDY, CMP #### [facility] [address] [place] [address] Dr. Angela Aguero AMYLASEon 11-18-2021 Amylase [Catalytic activity/Vol] 20 U/L Critically low 25-115 [facility] Comment on above: Performed By: #### L MADDY SMITH, CMP #### [facility] [address] [place] [address] Dr. Angela Aguero BILIRUBIN CONJUGATED (DIRECT )on 11-18-2021 BILI, CONJUGATED 0.4 mg/dL Critically high 0.0-0.2 [facility] Comment on above: Performed By: #### L MADDY SMITH, CMP #### [facility] [address] [place] [address] Dr. Angela Aguero CBC AUTO DIFFon 11-18-2021 BASO # 0.1 103/ul Normal 0.0-0.1 [facility] Comment on above: Performed By: #### L MADDY SMITH, CMP #### [facility] [address] [place] [address] Dr. Angela Aguero Basophils/100 WBC (Bld) 2.4 % Critically high 0.2-2.0 [facility] Comment on above: Performed By: #### L LUIS MADDY, CMP #### [facility] [address] [place] [address] Dr. Angela Aguero EO # 0.0 103/ul Normal 0.0-0.7 [facility] Comment on above: Performed By: #### L MADDY SMITH, CMP #### [facility] [address] [place] [address] Dr. Angela Aguero Eosinophils/100 WBC (Bld) 0.2 % Critically low 0.9-7.0 [facility] Comment on above: Performed By: #### L IPA, MADDY, CMP #### [facility] [address] [address] [address] Angela Aguero Erythrocyte distribution width (RBC) [Ratio] 12.8 % Normal 11.0-15.0 [facility] Comment on above: Performed By: #### L MADDY SMITH, CMP #### [facility] [address] [address] [address] Angela Aguero Hematocrit (Bld) [Volume fraction] 47.4 % Normal 36.0-48.0 [facility] Comment on above: Performed By: #### L MADDY SMITH, CMP #### [facility] [address] [address] [address] Angela Aguero Hemoglobin (Bld) [Mass/Vol] 16.6 g/dL Critically high 12.0-16.0 [facility] [facility] Comment on above: Performed By: #### L MADDY SMITH, CMP #### [facility] [address] [place] [address] Dr. Angela Aguero IG # 0.02 10e3/ul Normal 0.00-0.03 [facility] Comment on above: Performed By: #### L MADDY SMITH, CMP #### [facility] [address] [address] [address] Angela Aguero IG % 0.4 % Normal 0.0-0.5 [facility] Comment on above: Performed By: #### L MADDY SMITH, CMP #### [facility] [address] [address] [address] Angela Aguero LYMPH # 0.9 103/ul Critically low 1.2-3.8 [facility] Comment on above: Performed By: #### L MADDY SMITH, CMP #### [facility] [address] [address] [address] Angela Aguero Lymphocytes/100 WBC (Bld) 17.2 % Critically low 20.5-60.0 [facility] Comment on above: Performed By: #### L MADDY SMITH, CMP #### [facility] [address] [address] [address] Angela Aguero MANUAL DIFF REQ NO Normal [facility] Comment on above: Performed By: #### L MADDY SMITH, CMP #### [facility] [address] [address] [address] Angela Aguero MCH (RBC) [Entitic mass] 32.4 pg Normal 26.7-34.0 [facility] Comment on above: Performed By: #### L MADDY SMITH, CMP #### [facility] [address] [place] [address] Dr. Angela Aguero MCHC (RBC) [Mass/Vol] 35.0 g/dL Normal 29.9-35.2 [facility] Comment on above: Performed By: #### L MADDY SMITH, CMP #### [facility] [address] [place] [address] Dr. Angela Aguero MCV (RBC) [Entitic vol] 92.4 fL Normal 81.0-99.0 [facility] Comment on above: Performed By: #### L MADDY SMITH, CMP #### [facility] [address] [place] [address] Dr. Angela Aguero MONO # 0.6 103/ul Normal 0.3-0.8 [facility] Comment on above: Performed By: #### L MADDY SMITH, CMP #### [facility] [address] [place] [address] Dr. Angela Aguero Monocytes/100 WBC (Bld) 10.7 % Normal 1.7-12.0 [facility] Comment on above: Performed By: #### L MADDY SMITH, CMP #### [facility] [address] [place] [address] Dr. Angela Aguero NEUT # 3.7 103/ul Normal 1.4-6.5 [facility] Comment on above: Performed By: #### L MADDY SMITH, CMP #### [facility] [address] [place] [address] Dr. Angela Aguero Neutrophils/100 WBC (Bld) 69.1 % Normal 43.0-75.0 [facility] Comment on above: Performed By: #### L MADDY SMITH, CMP #### [facility] [address] [place], [place] [id number] Dr. Angela Aguero Platelet mean volume (Bld) [Entitic vol] 10.1 fL Normal 9.5-13.5 [facility] Comment on above: Performed By: #### L MADDY SMITH, CMP #### [facility] [address] [place] [address] Dr. Angela Aguero PLT 279 103/ul Normal 150-450 [facility] Comment on above: Performed By: #### L MADDY SMITH, CMP #### [facility] [address] [address] [address] Angela Aguero RBC 5.13 106/ul Normal 4.20-5.40 [facility] Comment on above: Performed By: #### L MADDY SMITH, CMP #### [facility] [address] [place] [address] Dr. Angela Aguero WBC 5.4 103/ul Normal 4.0-11.0 [facility] Comment on above: Performed By: #### L MADDY SMITH, CMP #### [facility] [address] [place] [address] Dr. Angela Aguero Covid-19 PCR ([facility])on 11-07 SARS-CoV-2 (COVID-19) RNA GOPAL+probe Ql (Unsp spec) Not detected Normal NOT DETECTED [facility] Comment on above: Result Comment: When diagnostic testing is negative, the possibility of a false negative should be considered in the context of a patient's recent exposures and the presence of clinical signs and symptoms consistent with SARS-CoV-2. This test is not yet approved or cleared by the [place] FDA. When there are no FDA-approved or cleared tests available, and other criteria are met, FDA can make tests available under an emergency access mechanism called an Emergency Use Authorization (EUA). The EUA for this test is supported by the [place] of Health and Human Service's declaration that circumstances exist to justify the emergency use of in vitro diagnostics for the detection and/or diagnosis of the virus that causes COVID-19. This EUA will remain in effect for the duration of the COVID-19 declaration justifying emergency of IVDs, unless it is terminated or revoked by the FDA (after which the test may no longer be used). Performed By: #### L MADDY SMITH, CMP #### [facility] [address] [place] [address] Dr. Angela Aguero LIPASEon 11-18-2021 Lipase [Catalytic activity/Vol] 25.0 U/L Critically low 73.0-393.0 [facility] Comment on above: Performed By: #### L MADDY SMITH, CMP #### [facility] [address] [place] [address] Dr. Angela Aguero PROF 14(COMP METB)on 022 Albumin [Mass/Vol] 4.4 g/dL Normal 3.4-5.0 [facility] Comment on above: Performed By: #### L MADDY SMITH, CMP #### [facility] [address] [place] [address] Dr. Angela Aguero Albumin/Globulin [Mass ratio] 1.1 {ratio} Normal [facility] Comment on above: Performed By: #### L MADDY SMITH, CMP #### [facility] [address] [place] [address] Dr. Angela Aguero ALP [Catalytic activity/Vol] 83 U/L Normal 46-116 [facility] Comment on above: Performed By: #### L MADDY SMITH, CMP #### [facility] [address] [place] [address] Dr. Angela Aguero ALT [Catalytic activity/Vol] 95 U/L Critically high 14-59 [facility] Comment on above: Performed By: #### L MADDY SMITH, CMP #### [facility] [address] [place] [address] Dr. Angela Aguero Anion gap [Moles/Vol] 20.2 mmol/L Normal [facility] Comment on above: Performed By: #### L MADDY SMITH, CMP #### [facility] [address] [place] [address] Dr. Angela Aguero AST [Catalytic activity/Vol] 84 U/L Critically high 15-37 [facility] Comment on above: Performed By: #### L MADDY SMITH, CMP #### [facility] [address] [address] [address] Angela Aguero Bilirubin [Mass/Vol] 1.1 mg/dL Critically high 0.2-1.0 [facility] Comment on above: Performed By: #### L MADDY SMITH, CMP #### [facility] [address] [place] [address] Dr. Angela Aguero Calcium [Mass/Vol] 8.9 mg/dL Normal 8.5-10.1 [facility] Comment on above: Performed By: #### L LUIS MADDY, CMP #### [facility] [address] [address] [address] Angela Aguero Chloride [Moles/Vol] 99 mmol/L Normal 98-107 [facility] Comment on above: Performed By: #### L MADDY SMITH, CMP #### [facility] [address] [place] [address] Dr. Angela Aguero CO2 [Moles/Vol] 23.3 mmol/L Normal 21.0-32.0 [facility] Comment on above: Performed By: #### L LUIS MADDY, CMP #### [facility] [address] [place] [address] Dr. Angela Aguero Creatinine [Mass/Vol] 0.97 mg/dL Normal 0.55-1.02 [facility] Comment on above: Performed By: #### L MADDY SMITH, CMP #### [facility] [address] [place] [address] Dr. Angela Aguero EGFR-AF BULGARIAN >60 Normal >=60 [facility] Comment on above: Performed By: #### L LUIS MADDY, CMP #### [facility] [address] [place] [address] Dr. Angela Aguero EGFR-NON AF BULGARIAN >60 Normal >=60 [facility] Comment on above: Performed By: #### L MADDY SMITH, CMP #### [facility] [address] [place] [address] Dr. Angela Aguero Globulin (S) [Mass/Vol] 3.9 g/dL Normal [facility] Comment on above: Performed By: #### L IPA, MADDY, CMP #### [facility] [address] [address] [address] Angela Aguero Glucose [Mass/Vol] 170 mg/dL Critically high 74-106 [facility] Comment on above: Performed By: #### L LUIS MADDY, CMP #### [facility] [address] [address] [address] Angela Aguero Potassium [Moles/Vol] 3.5 mmol/L Normal 3.5-5.1 [facility] Comment on above: Performed By: #### L IPA MADDY, CMP #### [facility] [address] [address] [address] Angela Aguero Protein [Mass/Vol] 8.3 g/dL Critically high 6.4-8.2 [facility] Comment on above: Performed By: #### L MADDY SMITH, CMP #### [facility] [address] [address] [address] Angela Aguero Sodium [Moles/Vol] 139 mmol/L Normal 136-145 [facility] Comment on above: Performed By: #### L MADDY SMITH, CMP #### [facility] [address] [address] [address] Angela Aguero Urea nitrogen [Mass/Vol] 4.0 mg/dL Critically low 7.0-18.0 [facility] Comment on above: Performed By: #### L MADDY SMITH, CMP #### [facility] [address] [address] [address] Angela Aguero Urea nitrogen/Creatinine [Mass ratio] 4.1 mg/mg Normal [facility] Comment on above: Performed By: #### L MADDY SMITH, CMP #### [facility] [address] [address] [address] ABD/PELV W CONon 11-12-19 CT ABD/PELV W CON Begin Addendum # 1 In the findings that should be noted that is an intrauterine device which appears appropriately positioned. Original Report EXAMINATION: CT ABD/PELV W CON HISTORY: GENERALIZED ABDOMINAL PAIN COMPARISON: None. TECHNIQUE: CT of the abdomen and pelvis with intravenous contrast Dose reduction techniques were achieved by using automated exposure control and/or adjustment of mA and/or kV according to patient size and/or use of iterative reconstruction technique. FINDINGS: TUBES AND IMPLANTS: None. LOWER CHEST: Small hiatal hernia ABDOMEN and PELVIS ABDOMINAL WALL AND SOFT TISSUES: Unremarkable. BONES: No suspicious lesions. Multilevel degenerative changes of the spine. ARTERIES: Unremarkable. VEINS: Unremarkable. LYMPH NODES: Unremarkable. PERITONEUM/ RETROPERITONEUM: Unremarkable. BOWEL: Mild wall thickening of the descending colon with surrounding fat stranding. APPENDIX: Unremarkable LIVER: Severe steatosis GALLBLADDER: Unremarkable. BILE DUCTS: Not dilated SPLEEN: Unremarkable. PANCREAS: Unremarkable. ADRENALS: Unremarkable. KIDNEYS/ URETERS: Unremarkable. REPRODUCTIVE ORGANS: Unremarkable URINARY BLADDER: Unremarkable. IMPRESSION: 1. Mild wall thickening of the descending colon with surrounding fat stranding suggesting colitis which may represent infectious or inflammatory etiology. 2. Severe hepatic steatosis. 3. Small hiatal hernia. Normal [facility] URINE PROFILEon 2 Bilirubin Ql (U) Negative Normal NEGATIVE [facility] Comment on above: Performed By: #### L MADDY SMITH, CMP #### [facility] [address] [place] [address] Dr. Angela Aguero Clarity (U) CLEAR Normal CLEAR [facility] Comment on above: Performed By: #### L MADDY SMITH, CMP #### [facility] [address] [place] [address] Dr. Angela Aguero Color (U) LT. YELLOW Normal YELLOW [facility] Comment on above: Performed By: #### L MADDY SMITH, CMP #### [facility] [address] [place] [address] Dr. Angela Aguero ERUAHD A micrscopic examina tion will be performed if indicated. Normal [facility] Comment on above: Performed By: #### L MADDY SMITH, CMP #### [facility] [address] [place] [address] Dr. Angela Aguero Glucose Ql (U) Negative Normal NEGATIVE [facility] Comment on above: Performed By: #### L MADDY SMITH, CMP #### [facility] [address] [place] [address] Dr. Angela Aguero Hemoglobin Ql (U) Negative Normal NEGATIVE [facility] Comment on above: Performed By: #### L IPA, MADDY, CMP #### [facility] [address] [place] [address] Dr. Angela Aguero Ketones Ql (U) Negative Normal NEGATIVE [facility] Comment on above: Performed By: #### L IPA, MADDY, CMP #### [facility] [address] [place] [address] Dr. Angela Aguero LEUKOCYTES Negative Normal NEGATIVE [facility] Comment on above: Performed By: #### L IPA, MADDY, CMP #### [facility] [address] [place] [address] Dr. Angela Aguero Nitrite Ql (U) Negative Normal NEGATIVE [facility] Comment on above: Performed By: #### L IPA MADDY, CMP #### [facility] [address] [place] [address] Dr. Angela Aguero pH (U) 6.0 [pH] Normal 5-9 [facility] Comment on above: Performed By: #### L IPA MADDY, CMP #### [facility] [address] [place] [address] Dr. Angela Aguero SPEC GRAVITY <=1.005 Abnormal 1.005-<=1. 025 [facility] Comment on above: Performed By: #### L LUIS MADDY, CMP #### [facility] [address] [place] [address] Dr. Angela Aguero UA PROTEIN Negative Normal NEGATIVE/ TRACE [facility] Comment on above: Performed By: #### L IPA MADDY, CMP #### [facility] [address] [place] [address] Dr. Angela Aguero UR MICRO IND NOT INDICATED Normal [facility] Comment on above: Performed By: #### L IPA MADDY, CMP #### [facility] [address] [place] [address] Dr. Angela Aguero Urobilinogen Qn (U) 0.2 {Concetta'U}/dL Normal 0.2 - 1. 0 [facility] Comment on above: Performed By: #### L IPA MADDY, CMP #### [facility] [address] [place] [address] Dr. Angela Aguero LACTATE/LACTIC ACIDon 2021 Lactate [Moles/Vol] 1.1 mmol/L Normal 0.4-1.9 [facility] Comment on above: Performed By: #### L MADDY SMITH, CMP #### [facility] [address] [place] [address] Dr. Angela Aguero CBC AUTO DIFFon 11-10-2021 BASO # 0.1 103/ul Normal 0.0-0.1 [facility] Comment on above: Performed By: #### L MADDY SMITH, CMP #### [facility] [address] [place] [address] Dr. Angela Aguero Basophils/100 WBC (Bld) 1.7 % Normal 0.2-2.0 [facility] Comment on above: Performed By: #### L MADDY SMITH, CMP #### [facility] [address] [place] [address] Dr. Angela Aguero EO # 0.1 103/ul Normal 0.0-0.7 [facility] Comment on above: Performed By: #### L MADDY SMITH, CMP #### [facility] [address] [place] [address] Dr. Angela Aguero Eosinophils/100 WBC (Bld) 1.0 % Normal 0.9-7.0 [facility] Comment on above: Performed By: #### L MADDY SMITH, CMP #### [facility] [address] [place] [address] Dr. Angela Aguero Erythrocyte distribution width (RBC) [Ratio] 13.1 % Normal 11.0-15.0 [facility] Comment on above: Performed By: #### L MADDY SMITH, CMP #### [facility] [address] [place] [address] Dr. Angela Aguero Hematocrit (Bld) [Volume fraction] 46.8 % Normal 36.0-48.0 [facility] Comment on above: Performed By: #### L MADDY SMITH, CMP #### [facility] [address] [address] [address] Angela Aguero Hemoglobin (Bld) [Mass/Vol] 16.3 g/dL Critically high 12.0-16.0 [facility] Comment on above: Performed By: #### L MADDY SMITH, CMP #### [facility] [address] [address] [address] Angela Aguero IG # 0.02 10e3/ul Normal 0.00-0.03 [facility] Comment on above: Performed By: #### L MADDY SMITH, CMP #### [facility] [address] [place] [address] Dr. Angela Aguero IG % 0.3 % Normal 0.0-0.5 [facility] Comment on above: Performed By: #### L MADDY SMITH, CMP #### [facility] [address] [place] [address] Dr. Angela Aguero LYMPH # 1.3 103/ul Normal 1.2-3.8 [facility] Comment on above: Performed By: #### L MADDY SMITH, CMP #### [facility] [address] [place] [address] Dr. Angela Aguero Lymphocytes/100 WBC (Bld) 20.9 % Normal 20.5-60.0 [facility] Comment on above: Performed By: #### L MADDY SMITH, CMP #### [facility] [address] [place] [address] Dr. Angela Aguero MANUAL DIFF REQ NO Normal [facility] Comment on above: Performed By: #### L MADDY SMITH, CMP #### [facility] [address] [place] [address] Dr. Angela Aguero MCH (RBC) [Entitic mass] 32.2 pg Normal 26.7-34.0 [facility] Comment on above: Performed By: #### L MADDY SMITH, CMP #### [facility] [address] [place] [address] Dr. Angela Aguero MCHC (RBC) [Mass/Vol] 34.8 g/dL Normal 29.9-35.2 [facility] Comment on above: Performed By: #### L IPA, MADDY, CMP #### [facility] [address] [place] [address] Dr. Angela Aguero MCV (RBC) [Entitic vol] 92.5 fL Normal 81.0-99.0 [facility] Comment on above: Performed By: #### L IPA, MADDY, CMP #### [facility] [address] [place] [address] Dr. Angela Aguero MONO # 0.6 103/ul Normal 0.3-0.8 [facility] Comment on above: Performed By: #### L IPA, MADDY, CMP #### [facility] [address] [place] [address] Dr. Angela Aguero Monocytes/100 WBC (Bld) 10.7 % Normal 1.7-12.0 [facility] Comment on above: Performed By: #### L IPA MADDY, CMP #### [facility] [address] [place] [address] Dr. Angela Aguero NEUT # 3.9 103/ul Normal 1.4-6.5 [facility] Comment on above: Performed By: #### L IPA MADDY, CMP #### [facility] [address] [place] [address] Dr. Angela Aguero Neutrophils/100 WBC (Bld) 65.4 % Normal 43.0-75.0 [facility] Comment on above: Performed By: #### L IPA MADDY, CMP #### [facility] [address] [place] [address] Dr. Angela Aguero Platelet mean volume (Bld) [Entitic vol] 9.6 fL Normal 9.5-13.5 [facility] Comment on above: Performed By: #### L IPA, MADDY, CMP #### [facility] [address] [place] [address] Dr. Angela Aguero PLT 224 103/ul Normal 150-450 [facility] Comment on above: Performed By: #### L IPA, MADDY, CMP #### [facility] [address] [place] [address] Dr. Angela Aguero RBC 5.06 106/ul Normal 4.20-5.40 [facility] Comment on above: Performed By: #### L MADDY SMITH, CMP #### [facility] [address] [place] [address] Dr. Angela Aguero WBC 6.0 103/ul Normal 4.0-11.0 [facility] Comment on above: Performed By: #### L MADDY SMITH, CMP #### [facility] [address] [address] [address] Angela Aguero LACTATE/LACTIC ACIDon 2021 Lactate [Moles/Vol] 3.7 mmol/L Critically high 0.4-1.9 [facility] Comment on above: Performed By: #### L MADDY SMITH, CMP #### [facility] [address] [place] [address] Dr. Angela Aguero LIPASEon 11-10-2021 Lipase [Catalytic activity/Vol] 33.0 U/L Critically low 73.0-393.0 [facility] Comment on above: Performed By: #### L MADDY SMITH, CMP #### [facility] [address] [place] [address] Dr. Angela Aguero PREG HCG QUALon 11-10-2021 , QUAL Negative Normal NEGATIVE [facility] Comment on above: Performed By: #### P REG #### [facility] [address] [place] [address] Dr. Angela Aguero PROF 14(COMP METB)on 022 Albumin [Mass/Vol] 4.5 g/dL Normal 3.4-5.0 [facility] Comment on above: Performed By: #### L MADDY SMITH, CMP #### [facility] [address] [place] [address] Dr. Angela Aguero Albumin/Globulin [Mass ratio] 1.1 {ratio} Normal [facility] Comment on above: Performed By: #### L MADDY SMITH, CMP #### [facility] [address] [place] [address] Dr. Angela Aguero ALP [Catalytic activity/Vol] 112 U/L Normal 46-116 [facility] Comment on above: Performed By: #### L IPA MADDY, CMP #### [facility] [address] [address] [address] Angela Aguero ALT [Catalytic activity/Vol] 154 U/L Critically high 14-59 [facility] Comment on above: Performed By: #### L IPA, MADDY, CMP #### [facility] [address] [address] [address] Angela Aguero Anion gap [Moles/Vol] 17.8 mmol/L Normal [facility] Comment on above: Performed By: #### L IPA MADDY, CMP #### [facility] [address] [address] [address] Angela Aguero AST [Catalytic activity/Vol] 112 U/L Critically high 15-37 [facility] Comment on above: Performed By: #### L LUIS MADDY, CMP #### [facility] [address] [address] [address] Angela Aguero Bilirubin [Mass/Vol] 0.7 mg/dL Normal 0.2-1.0 [facility] Comment on above: Performed By: #### L LUIS MADDY, CMP #### [facility] [address] [address] [address] Angela Aguero Calcium [Mass/Vol] 9.7 mg/dL Normal 8.5-10.1 [facility] Comment on above: Performed By: #### L LUIS MADDY, CMP #### [facility] [address] [address] [address] Angela Aguero Chloride [Moles/Vol] 102 mmol/L Normal 98-107 [facility] Comment on above: Performed By: #### L IPA MADDY, CMP #### [facility] [address] [address] [address] Angela Aguero CO2 [Moles/Vol] 26.6 mmol/L Normal 21.0-32.0 [facility] Comment on above: Performed By: #### L IPA MADDY, CMP #### [facility] [address] [address] [address] Angela Aguero Creatinine [Mass/Vol] 1.00 mg/dL Normal 0.55-1.02 [facility] Comment on above: Performed By: #### L MADDY SMITH, CMP #### [facility] [address] [place] [address] Dr. Angela Aguero EGFR-AF BULGARIAN >60 Normal >=60 [facility] Comment on above: Performed By: #### L IPA MADDY, CMP #### [facility] [address] [place] [address] Dr. Angela Aguero EGFR-NON AF BULGARIAN >60 Normal >=60 [facility] Comment on above: Performed By: #### L IPA MADDY, CMP #### [facility] [address] [place] [address] Dr. Angela Aguero Globulin (S) [Mass/Vol] 4.1 g/dL Normal [facility] Comment on above: Performed By: #### L LUIS MADDY, CMP #### [facility] [address] [place] [address] Dr. Angela Aguero Glucose [Mass/Vol] 170 mg/dL Critically high 74-106 [facility] Comment on above: Performed By: #### L MADDY SMITH, CMP #### [facility] [address] [place] [address] Dr. Angela Aguero Potassium [Moles/Vol] 3.4 mmol/L Critically low 3.5-5.1 [facility] Comment on above: Performed By: #### L LUIS MADDY, CMP #### [facility] [address] [place] [address] Dr. Angela Aguero Protein [Mass/Vol] 8.6 g/dL Critically high 6.4-8.2 [facility] Comment on above: Performed By: #### L LUIS MADDY, CMP #### [facility] [address] [place] [address] Dr. Angela Aguero Sodium [Moles/Vol] 143 mmol/L Normal 136-145 [facility] Comment on above: Performed By: #### L LUIS MADDY, CMP #### [facility] [address] [place] [address] Dr. Angela Agueor Urea nitrogen [Mass/Vol] 4.0 mg/dL Critically low 7.0-18.0 [facility] Comment on above: Performed By: #### L MADDY SMITH, CMP #### [facility] [address] [place] [address] Dr. Angela Aguero Urea nitrogen/Creatinine [Mass ratio] 4.0 mg/mg Normal [facility] Comment on above: Performed By: #### L MADDY SMITH, CMP #### [facility] [address] [place] [address] Dr. Angela Aguero PROTIMEon 11-10-2021 INR Coag (PPP) [Relative time] 1.13 {INR} Normal [facility] Comment on above: Performed By: #### L MADDY SMITH, CMP #### [facility] [address] [place] [address] Dr. Angela Aguero INR GUIDELINES SEE BELOW Normal [facility] Comment on above: Result Comment: VARSHA RED INR: 2.0 - 3.0 CONDITIONS NOT LISTED BELOW 2.5 - 3.5 FOR PROSTHETIC HEART VALVE REPLACEMENT 2.5 - 3.5 RECURRENT THROMBOSIS Performed By: #### L MADDY SMITH, CMP #### [facility] [address] [place] [address] Dr. Angela Aguero PT Coag (PPP) [Time] 12.1 s Critically high 9.0-11.6 [facility] Comment on above: Performed By: #### L MADDY SMITH CMP #### [facility] [address] [place] [address] Dr. Angela Aguero PTTon 11-10-2021 aPTT Coag (Bld) [Time] 30.2 s Normal 22.3-36.2 [facility] Comment on above: Performed By: #### L MADDY SMITH, CMP #### [facility] [address] [place] [address] Dr. Angela Aguero Automated epithelial cells c ount in urine sediment (number/area)Ordered By: Hal Orozco on 11-06-2021 Epithelial cells Auto (Urine sed) [#/Area] 10-19 [HPF] 0-2 [facility] Automated erythrocytes count in urine sediment (number/area)Ordered By: Hal Orozco on 11-06-2021 RBC Auto (Urine sed) [#/Area] 0-1 [HPF] 0-4 [facility] Automated leukocytes count i n urine sediment (number/area)Ordered By: Hal Orozco on 11-06-2021 WBC Auto (Urine sed) [#/Area] 1-2 [HPF] 0-4 [facility] Basophils Auto (Bld) [#/Vol] Ordered By: Hal Orozco on 11-06-2021 Basophils (Bld) [#/Vol] 0.0 10*3/uL 0.0-0.2 [facility] Basophils/100 WBC Auto (Bld) Ordered By: Hal Orozco on 11-06-2021 Basophils/100 WBC (Bld) 0.3 % . [facility] Bilirubin Auto test strip Ql (U)Ordered By: Hal Orozco on 11-06-2021 Bilirubin Ql (U) 1+ Negative [facility] Blood hemoglobin measurement (mass/volume)Ordered By: Hal Orozco on 11-06-2021 Hemoglobin (Bld) [Mass/Vol] 15.7 g/dL 11.8-15.4 [facility] Blood leukocytes automated c ount (number/volume)Ordered By: Hal Orozco on 11-06-2021 WBC (Bld) [#/Vol] 9.8 10*3/uL 4.5-11.0 [facility] Body fluid albumin measureme nt (mass/volume)Ordered By: Hal Orozco on 11-06-2021 Albumin (Body fld) [Mass/Vol] 4.7 g/dL 3.2-5.5 [facility] Creatinine and Glomerular fi ltration rate.predicted panel (S/P/Bld)Ordered By: Hal Orozco on 11-06-2021 Creatinine [Mass/Vol] 0.99 mg/dL 0.44-1.03 [facility] Direct bilirubin measurement Ordered By: Hal Orozco on 11-06-2021 Bilirubin.direct [Mass/Vol] 0.3 mg/dL 0.0-0.4 [facility] Eosinophils Auto (Bld) [#/Vo l]Ordered By: Hal Orozco on 11-06-2021 Eosinophils (Bld) [#/Vol] 0.0 10*3/uL 0.0-0.45 [facility] Eosinophils/100 WBC Auto (Bl d)Ordered By: Hal Orozco on 11-06-2021 Eosinophils/100 WBC (Bld) 0.0 % . [facility] Erythrocyte distribution wid th Auto (RBC) [Ratio]Ordered By: Hal Orozco on 11-06-2021 Erythrocyte distribution width (RBC) [Ratio] 14.3 % 11.9-15.3 [facility] Estimated glomerular filtrat ion rate (GFR) non- AmericanOrdered By: Hal Orozco on 11-06-2021 GFR/1.73 sq M.predicted among non-blacks MDRD (S/P/Bld) [Vol rate/Area] > 60 mL/Min [facility] Globulin Calc (S) [Mass/Vol] Ordered By: Hal Orozco on 11-06-2021 Globulin (S) [Mass/Vol] 3.4 g/dL [facility] HCG ( test) IA.rapi d Ql (U)Ordered By: Hal Orozco on 11-06-2021 HCG ( test) Ql (U) Negative [facility] Hematocrit Auto (Bld) [Volum e fraction]Ordered By: Hal Orozco on 11-06-2021 Hematocrit (Bld) [Volume fraction] 45.7 % 34.0-46.4 [facility] Ketones Auto test strip (U) [Mass/Vol]Ordered By: Hal Orozco on 11-06-2021 Ketones (U) [Mass/Vol] 1+ Negative [facility] - Chemistry and C hemistry - challengeOrdered By: Hal Orozco on 11-06-2021 Lipase [Catalytic activity/Vol] 18.0 U/L 22-51 [facility] - Hematology and Cell countsOrdered By: Hal Orozco on 11-06-2021 Nucleated RBC/100 WBC (Bld) [Ratio] 0.1 % 0-0.5 [facility] Lymphocytes Auto (Bld) [#/Vo l]Ordered By: Hal Orozco on 11-06-2021 Lymphocytes (Bld) [#/Vol] 0.4 10*3/uL 1.00-4.8 [facility] Lymphocytes/100 WBC Auto (Bl d)Ordered By: Hal Orozco on 11-06-2021 Lymphocytes/100 WBC (Bld) 3.8 % . [facility] MCH Auto (RBC) [Entitic mass ]Ordered By: Hal Orozco on 11-06-2021 MCH (RBC) [Entitic mass] 32.4 pg 24.7-34.3 [facility] MCHC Auto (RBC) [Mass/Vol]Or dered By: Hal Orozco on 11-06-2021 MCHC (RBC) [Mass/Vol] 34.4 g/dL 32.0-35.0 [facility] MCV Auto (RBC) [Entitic vol] Ordered By: Hal Orozco on 11-06-2021 MCV (RBC) [Entitic vol] 94.2 fL 80-100 [facility] Monocytes Auto (Bld) [#/Vol] Ordered By: Hal Orozco on 11-06-2021 Monocytes (Bld) [#/Vol] 0.3 10*3/uL 0.0-0.8 [facility] Monocytes/100 WBC Auto (Bld) Ordered By: Hal Orozco on 11-06-2021 Monocytes/100 WBC (Bld) 2.9 % . [facility] Mucus LM Ql (Urine sed)Order ed By: Hal Orozco on 11-06-2021 Mucus Ql (Urine sed) 2+ [LPF] [facility] Neutrophils Auto (Bld) [#/Vo l]Ordered By: Hal Orozco on 11-06-2021 Neutrophils (Bld) [#/Vol] 9.1 10*3/uL 1.8-7.7 [facility] Neutrophils/100 WBC Auto (Bl d)Ordered By: Hal Orozco on 11-06-2021 Neutrophils/100 WBC (Bld) 93.0 % . [facility] No Panel InformationOrdered By: Hal Orozco on 11-06-2021 Estimated GFR () > 60 mL/Min [facility] Comment on above: GFR estimated refere nce range: According to KDOQI guidelines, <60 ml/min/1.73m2 is sufficient to diagnose a patient with chronic kidney disease. Pharmacy Creatinine Clearance (Chem 72.84 [facility] Platelet mean volume Auto (B ld) [Entitic vol]Ordered By: Hal Orozco on 11-06-2021 Platelet mean volume (Bld) [Entitic vol] 7.5 fL 6.3-10.7 [facility] Platelets Auto (Bld) [#/Vol] Ordered By: Hal Orozco on 11-06-2021 Platelets (Bld) [#/Vol] 270 10*3/uL 150-450 [facility] Protein Auto test strip (U) [Mass/Vol]Ordered By: Hal Orozco on 11-06-2021 Protein (U) [Mass/Vol] 30 mg/dL Negative [facility] Protein [Mass/volume] in Ser um or PlasmaOrdered By: Hal Orozco on 11-06-2021 Protein [Mass/Vol] 8.1 g/dL 6.1-7.9 [facility] RBC Auto (Bld) [#/Vol]Ordere d By: Hal Orozco on 11-06-2021 RBC (Bld) [#/Vol] 4.85 10*6/uL 3.60-5.00 [facility] Serum or plasma alanine montes otransferase measurement without P-5'-P (enzymatic activiOrdered By: Hal Orozco on 11-06-2021 ALT No additional P-5'-P [Catalytic activity/Vol] 64 U/L 10-60 [facility] Serum or plasma albumin/glob ulin mass ratioOrdered By: Hal Orozco on 11-06-2021 Albumin/Globulin [Mass ratio] 1.4 {ratio} [facility] Serum or plasma alkaline florencio sphatase measurement (enzymatic activity/volume)Ordered By: Hal Orozco on 11-06-2021 ALP [Catalytic activity/Vol] 75 U/L 32-92 [facility] Serum or plasma aspartate am inotransferase measurement (enzymatic activity/volume)Ordered By: Hal Orozco on 11-06-2021 AST [Catalytic activity/Vol] 101 U/L 10-42 [facility] Serum or plasma calcium archie urement (mass/volume)Ordered By: Hal Orozco on 11-06-2021 Calcium [Mass/Vol] 9.3 mg/dL 8.2-10.2 [facility] Serum or plasma chloride luz surement (moles/volume)Ordered By: Hal Orozco on 11-06-2021 Chloride [Moles/Vol] 101 mmol/L 95-114 [facility] Serum or plasma glucose archie urement (mass/volume)Ordered By: Hal Orozco on 11-06-2021 Glucose [Mass/Vol] 205 mg/dL 70-100 [facility] Comment on above: ADA recommended refe rence range Random Glucose Reference Range is dependent on time and content of last meal. Glucose of more than 200 mg/dL in a nonstressed, ambulatory subject supports the diagnosis of Diabetes Mellitus. ADA recommended refe rence rangeRandom Glucose Reference Range is dependent on time and content of last meal. Glucose of more than 200 mg/dL in a nonstressed, ambulatory subject supports the diagnosis of Diabetes Mellitus. Serum or plasma non-glucuron idated bilirubin measurement (mass/volume)Ordered By: Hal Orozco on 11-06-2021 Bilirubin.indirect [Mass/Vol] 1.0 mg/dL [facility] Serum or plasma potassium me asurement (moles/volume)Ordered By: Hal Orozco on 11-06-2021 Potassium [Moles/Vol] 3.8 mmol/L 3.5-5.1 [facility] Serum or plasma sodium measu rement (moles/volume)Ordered By: Hal Orozco on 11-06-2021 Sodium [Moles/Vol] 142 mmol/L 136-146 [facility] Serum or plasma total biliru bin measurement (mass/volume)Ordered By: Hal Orozco on 11-06-2021 Bilirubin [Mass/Vol] 1.3 mg/dL 0.3-1.2 [facility] Comment on above: Samples from patient s who have taken Naproxen have shown spurious elevation in Total Bilirubin levels. A metabolite of Naproxen, O-desmethylnaproxen, has been shown to interfere with the Katya-Rosey method for measuring Total Bilirubin. Serum or plasma total carbon dioxide measurement (moles/volume)Ordered By: Hal Orozco on 11-06-2021 CO2 [Moles/Vol] 21.6 mmol/L 22.0-30.0 [facility] Serum or plasma urea nitroge n measurement (mass/volume)Ordered By: Hal Orozco on 11-06-2021 Urea nitrogen [Mass/Vol] 4 mg/dL 9- [facility] Urine appearanceOrdered By: Hal Orozco on 11-06-2021 Appearance (U) Clear Clear [facility] Urine bacteria detection by automated methodOrdered By: Hal Orozco on 11-06-2021 Bacteria Auto Ql (U) 1+ None Seen [facility] Urine colorOrdered By: Jimbo Orozco on 11-06-2021 Color (U) Yellow Yellow [facility] Urine glucose measurement by automated test strip (mass/volume)Ordered By: Hal Orozco on 11-06-2021 Glucose Auto test strip (U) [Mass/Vol] Normal mg/dL Normal [facility] Urine hemoglobin detection b y automated test stripOrdered By: Hal Orozco on 11-06-2021 Hemoglobin Auto test strip Ql (U) Negative Negative [facility] Urine leukocyte esterase det ection by automated test stripOrdered By: Hal Orozco on 11-06-2021 Leukocyte esterase Auto test strip Ql (U) Negative Negative [facility] Urine nitrite detection by a utomated test stripOrdered By: Hal Orozco on 11-06-2021 Nitrite Auto test strip Ql (U) Negative Negative [facility] Urobilinogen Auto test strip (U) [Mass/Vol]Ordered By: Hla Orozco on 11-06-2021 Urobilinogen (U) [Mass/Vol] mg/dL Normal [facility] pH Auto test strip (U)Ordere d By: Hal Orozco on 11-06-2021 pH (U) 1.025 [pH] 1.001-1.03 0 [facility] pH (U) 6.5 [pH] 5.0-9.0 [facility] Vital Signs Date Time Vital Sign Value Performing Clinician Facility 06-14-2023 14:27-0500 Body height 167.64 cm TAX ADVISORHarsha Villegas Work Phone: [facility] 06-14-2023 14:27-0500 Body mass index (BMI) [Ratio] 22 kg/m2 CATIA Villegas Work Phone: [facility] 06-14-2023 14:27-0500 Body weight 61.91 kg CATIA Villegas Work Phone: [facility] 06-14-2023 14:27-0500 Diastolic blood pressure 85 mm[Hg] CATIA Villegas Work Phone: [facility] 06-14-2023 14:27-0500 Heart rate 94 /min CATIA Villegas Work Phone: [facility] 06-14-2023 14:27-0500 Respiratory rate 18 /min CATIA Villegas Work Phone: [facility] 06-14-2023 14:27-0500 SaO2% (BldA) [Mass fraction] 100 % CATIA Villegas Work Phone: [facility] 06-14-2023 14:27-0500 Systolic blood pressure 132 mm[Hg] CATIA Villegas Work Phone: [facility] 03-27-2023 10:45-0500 Body height 167.64 cm Becky Urielly Other [facility] 03-27-2023 10:45-0500 Body mass index (BMI) [Ratio] 21.93 kg/m2 Becky Scally Other [facility] Other 03-27-2023 10:45-0500 Body weight 61.64 kg Becky Scally Other [facility] 03-27-2023 10:45-0500 Diastolic blood pressure 80 mm[Hg] Becky Scally Other [facility] 03-27-2023 10:45-0500 Respiratory rate 16 /min Becky Scally Other [facility] [employer] Other 03-27-2023 10:45-0500 SaO2% (BldA) [Mass fraction] 100 % Becky Scally Other [facility] [employer] Other 03-27-2023 10:45-0500 Systolic blood pressure 125 mm[Hg] Becky Scally Other [facility] 02-01-2022 23:07-0400 Diastolic blood pressure 103 mm[Hg] Kaylinn Dokken [facility] 02-01-2022 23:07-0400 Heart rate 67 /min Kaylinn Dokken [facility] 02-01-2022 23:07-0400 Respiratory rate 15 /min Kaylinn Dokken [facility] 02-01-2022 23:07-0400 SaO2% (BldA) [Mass fraction] 97 % Kaylinn Dokken [facility] 02-01-2022 23:07-0400 Systolic blood pressure 164 mm[Hg] Kaylinn Dokken [facility] 02-01-2022 21:27-0400 Body temperature 98.24 [degF] Kaylinn Dokken [facility] 02-01-2022 21:27-0400 Diastolic blood pressure 120 mm[Hg] Kaylinn Dokken [facility] 02-01-2022 21:27-0400 Heart rate 111 /min Kaylinn Dokken [facility] 02-01-2022 21:27-0400 Respiratory rate 20 /min Judith Mock [facility] 02-01-2022 21:27-0400 SaO2% (BldA) [Mass fraction] 98 % Judith Mock [facility] 02-01-2022 21:27-0400 Systolic blood pressure 196 mm[Hg] Judith Mock [facility] 12-28-2021 08:56-0400 Body height 167.64 cm Services [facility] Work Phone: [facility] 12-28-2021 08:56-0400 Body weight 71.66 kg [facility] Work Phone: [facility] 12-23-2021 09:40-0400 Diastolic blood pressure 87 mm[Hg] [facility] Work Phone: [facility] 12-23-2021 09:40-0400 Heart rate 88 /min [facility] Work Phone: [facility] 12-23-2021 09:40-0400 Respiratory rate 18 /min Services [facility] Work Phone: [facility] 12-23-2021 09:40-0400 SaO2% (BldA) [Mass fraction] 100 % [facility] Work Phone: [facility] 12-23-2021 09:40-0400 Systolic blood pressure 140 mm[Hg] [facility] Work Phone: [facility] 12-23-2021 07:44-0400 Body height 167.64 cm Services [facility] Work Phone: [facility] 12-23-2021 07:44-0400 Body weight 68.03 kg Services [facility] Work Phone: [facility] 11-06-2021 14:00-0400 Diastolic blood pressure 82 mm[Hg] [facility] Work Phone: [facility] 11-06-2021 14:00-0400 Heart rate 102 /min Services [facility] Work Phone: [facility] 11-06-2021 14:00-0400 Respiratory rate 20 /min Services [facility] Work Phone: [facility] 11-06-2021 14:00-0400 SaO2% (BldA) [Mass fraction] 97 % Services [facility] Work Phone: [facility] 11-06-2021 14:00-0400 Systolic blood pressure 123 mm[Hg] Services [facility] Work Phone: [facility] 11-06-2021 00:00-0400 Body height 167.64 cm Services [facility] Work Phone: [facility] 11-06-2021 00:00-0400 Body weight 70.3 kg Services [facility] Work Phone: [facility] 11-05-2021 23:51-0400 Body temperature 98 [degF] Services [facility] Work Phone: [facility] Encounters Encounter Date Encounter Type Care Provider Facility Start: 08-14-2023 End: 08-14-2023 ambulatory Services [facility] Facility:[facility] Start: 08-14-2023 End: 08-14-2023 ambulatory CATIA Villegas Work Phone: [facility] Work Phone: Start: 08-14-2023 End: 08-14-2023 Departed Referred CATIA Villegas Work Phone: [facility] Start: 06-14-2023 End: 06-14-2023 Patient encounter procedure CATIA Villegas Work Phone: [facility] Work Phone: Start: 03-27-2023 FQ visit new patient Becky Trevinozahida beck [facility] Start: 03-27-2023 End: 03-28-2023 ambulatory CATIA Villegas Work Phone: [facility] [employer] Other Start: 03-27-2023 End: 03-27-2023 Discharged Recurring CATIA Villegas Work Phone: [facility] Work Phone: Start: 03-27-2023 End: 03-27-2023 Patient encounter procedure CATIA Villegas Work Phone: [facility] Work Phone: Start: 01-19-2023 ambulatory Aung Saldaña Facili ty:[facility] Start: 01-13-2023 ambulatory Avery Villegas Facili ty:[facility] Start: 10-21-2022 End: 10-21-2022 Emergency department patient visit Thanh Bal Facility:[facility] Start: 03-26-2022 End: 03-26-[address] DEON MCGUIRE Facility: Start: 02-01-2022 End: 02-02-2022 Emergency department patient visit DO Judith Mock Facility:[facility] Start: 02-01-2022 End: 02-02-2022 Emergency department patient visit Judith Mock [facility] Start: 01-31-2022 End: 05-02-2022 ambulatory Varinder Ang Facility:[facility] Start: 01-18-2022 End: 01-18-2022 ambulatory [facility] Work Phone: [place] Work Phone: Start: 01-18-2022 End: 01-18-2022 Patient encounter procedure [facility] Work Phone: [place] Start: 12-28-2021 End: 12-28-2021 Patient encounter procedure [facility] Work Phone: [place] Start: 12-23-2021 End: 12-23-2021 Patient encounter procedure [facility] Work Phone: [place] Start: 11-25-2021 End: 11-25-2021 Departed Referred [facility] [employer] Phone: [place] Start: 11-18-2021 End: 11-20-[address] DOCTOR SALGADO Facility:[facility] Start: 11-10-2021 End: 11-11-2021 ambulatory MAGGY WORLEY Facility:[facility] Start: 11-05-2021 End: 11-06-2021 Emergency department patient visit [facility] [employer] Phone: [place] Procedures Date Procedure Procedure Detail Performing Clinician Start: 12-28-2021 MRI of thoracic spin e with contrast Services [facility] [employer] Phone: Start: 12-28-2021 XR pre/post mri xray Se [facility] [employer] Phone: Start: 12-28-2021 MRI of lumbar spine with contrast Services [facility] [employer] Phone: Start: 12-23-2021 MRI of head Services [facility] [email or web address] Work Phone: Aerobic microbial culture [employer] Phone: Anaerobic microbial culture Services [facility] [employer] Phone: Investigation of transfusion reaction [facility] [employer] Phone: Plan of Treatment Date Care Activity Detail Author Start: 01-18-2022 [employer] antibody measurement [facility] Start: 01-18-2022 [facility] Start: 12-23-2021 [facility] Start: 12-23-2021 Cerebrospinal fluid culture [place] Work Phone: Start: 12-23-2021 [facility] Start: 12-23-2021 Lumbar puncture usin g fluoroscopic guidance [place] Work Phone: Start: 11-25-2021 End: 11-25-2021 Departed Referred Departed Referred [facility] Albumin [Mass/volume ] in Cerebral spinal fluid [place] Work Phone: Albumin [Mass/volume ] in Serum or Plasma [facility] Work Phone: Albumin/Globulin ratio [facility] Work Phone: Bacteria identified in Unspecified specimen by Aerobe culture [facility] Work Phone: Bacteria identified in Unspecified specimen by Anaerobe culture [place] Work Phone: Cell count, cerebros alexus fluid [facility] Work Phone: Centromere protein B Ab [Units/volume] in Serum [facility] Work Phone: Cerebrospinal fluid examination [facility] Work Phone: Cerebrospinal fluid IgG ratio and IgG index [place] Work Phone: Chromatin Ab [Units/ volume] in Serum or Plasma [facility] Work Phone: Comprehensive metabo lic 2000 panel - Serum or Plasma [facility] DNA double strand Ab [Units/volume] in Serum [facility] Work Phone: Electrophoresis: [id number] [facility] Work Phone: Electrophoresis: [id number] [facility] Work Phone: Electrophoresis: beta-globulin [facility] Work Phone: Electrophoresis: toby ma globulin [facility] Work Phone: Evaluation of cerebr ospinal fluid [facility] Work Phone: Fluid sample volume measurement [place] Work Phone: Globulin [Mass/volum e] in Serum [place] Work Phone: Glucose [Mass/volume ] in Cerebral spinal fluid [place] Work Phone: Glutamate decarboxyl ase 65 Ab [Units/volume] in Serum [facility] IgG [Mass/volume] in Cerebral spinal fluid [place] Work Phone: IgG [Mass/volume] in Serum or Plasma [place] Work Phone: IgG clearance/Albumi n clearance [Ratio] in Serum and CSF [place] Work Phone: IgG synthesis rate [Mass/time] in Serum and CSF by calculation [place] Work Phone: Insulin Ab [Units/vo lume] in Serum [facility] Insulin C-peptide measurement [facility] Rika-1 extractable nuc lear Ab [Units/volume] in Serum [place] Work Phone: Meningitis+Encephali tis pathogens DNA and RNA panel - Cerebral spinal fluid by GOPAL with non-probe detection [place] Work Phone: Methylmalonate [Moles/volume] in Serum or Plasma [place] Work Phone: Microscopic observat ion [Identifier] in Unspecified specimen by Gram stain [facility] Nucleated cells [#/v olume] in Cerebral spinal fluid by Manual count [place] Work Phone: Patient Education [place] Work Phone: Patient referral [facility] Work Phone: Protein [Mass/volume ] in Cerebral spinal fluid [place] Work Phone: Protein [Mass/volume ] in Serum or Plasma [place] Work Phone: Protein fractions.oligoclonal bands.intrathecal [Presence] in Serum and CSF [place] Work Phone: Red blood cell count [facility] Work Phone: [employer] OFFICER antibody measurement [facility] Work Phone: SCL-70 extractable n uclear Ab [Units/volume] in Serum by Immunoassay [place] Work Phone: Sjogrens syndrome-A extractable nuclear Ab [Units/volume] in Serum [facility] Work Phone: Sjogrens syndrome-B extractable nuclear Ab [Units/volume] in Serum [facility] Work Phone: Mcguire extractable nu clear Ab [Units/volume] in Serum [facility] Work Phone: [facility] Immunizations Immunization Date Immunization Notes Care Provider [place] 01-31-2022 influenza virus vaccine, unspecified formulation Judith Mock [facility] Comment on above: Reason for Medicatio n: Prophylaxis Payers Date Payer Category Payer Self-pay [id number] 2022 Unknown 1985 Unknown [id number] 1984 Unknown [id number] 1984 Unknown [id number] 1984 Unknown [id number] 1984 Unknown [id number] 1984 Unknown [id number] [id number] 1984 Unknown [id number] 1959 Unknown [id number] 71 Medicaid [facility] [id number] Unknown [id number] Unknown [id number] Unknown [id number] Social History Date Type Detail Facility Start: 11-06-2021 End: 03-27-2023 Tobacco smoking status NHIS Ex-smoker (finding) [facility] Start: 1985 Sex Assigned At Female F [facility] Tobacco smoking status No Smokin g Status Entered [facility] Sex Assigned At Female [facility] Start: 06-14-2023 Tobacco smoking stat us NHIS Smoker (finding) [facility] Functional Status Date Assessment Result Facility 02-01-2022 Functional Status N/A [place] Evaluation note 03-27-2023 Note Date & Type Note Facility 03-27-2023 Evaluation note Encounter Date Diagnosis Assessment Notes Mar, Type 2 diabetes mellitus with hyperglycemia, without long-term current use of insulin (ICD-10 - E11.65) 1. Uncontrolled, a Type 2 diabetes with A1c of 10.6% 2. Patient with multiple episodes of pancreatitis in the past, history of alcohol abuse, hypertension and hypothyroidism, she has bipolar. Most recent hemoglobin A1c prior to today was 12.3%. Now 10.6%. Unclear etiology. We will check for pancreatic function as well as insulin antibodies to assure no decrease insulin production, obvious that she is producing insulin based on close improvement. Possible EtOH etiology for pancreatitis. currently only on metformin. Will continue this 500 mg twice daily. We did place CGM for management of blood sugars. Plan to return to clinic in 2 weeks to assess glucose patterns, she should have fasting labs soon, return with provider in 6 weeks.3. Patient is alert, oriented and receptive to making changes or counseling. Notes: Seen for an assessment of current glucose pattern, changes in treatment plan, counseling and coordination of care related to diabetes, risks, and benefits of treatment, medications, side effects. Given handouts to reinforce concepts reviewed during counseling, see scanned notes. TOPICS REVIEWED: 1. Time was spent reviewing: a. Basic concepts of diabetes, progressive beta cell , concepts of basal/bolus/martine ective insulin requirements. b. Nutrition: Concepts of healthy diet, encouraged to decrease saturated fat in diet and increase non-starchy vegetables and fruits in diet. BMI: Pt. needs to select one small change to decrease caloric intake or increase physical activity to help decrease weight. c. Correct treatment of hypoglycemia, carry a glucose source at all times on your person, in vehicles, and at bedside. Can use glucose tablets/4, four ounces of pop or juice equal to 15 G of carbohydrate. Blood glucose should be 100 mg/dl or higher when driving. d. ADA glucose goals for age and medical complexity reviewed e. Patient questions addressed 2. Activity/exercis e: Encouraged to start any form of physical activity. Start low level and increase slowly to a minimal goal of 150 minutes/week. Limit activity to what is allowed by other issues such as cardiac, pulmonary or orthopedic restrictions. 3. Standards of care: Reminded to have an annual dilated eye exam, A1C every 3 months, urine testing for microalbumin once/year, check feet daily and report any cuts or sores that do not appear to be healing. 4. Meter: Plan to check blood glucose: Please check blood glucose levels 1-4 times/day. Back to back meals reveal effectiveness of bolus dosing. 5. [facility]. Contact office if any issues or concerns with patterns of hypoglycemia, hyperglycemia, or diabetes medication issues. 6. Prescriptions: New patient 03-27-2023 uses [facility]. Mar, Vitamin D deficiency (ICD-10 - E55.9) Mar, Hyperlipidemia, unspecified hyperlipidemia type (ICD-10 - E78.5) Mar, Hypertension, unspecified type (ICD-10 - I10) Mar, Dietary counseling and surveillance (ICD-10 - Z71.3) Mar, BMI 21.0-21.9, adult (ICD-10 - Z68.21) Mar, History of gestational diabetes (ICD-10 - Z86.32) [facility] Other Hospital Discharge instructions 02-02-2022 Note Date & Type Note Facility 02-02-2022 Hospital Discharg e instructions Patient Education 02/02/2022 00:18:28 Pyelonephritis, Adult, [id number]-nr-[id number] Pyelonephritis, Adult Pyelonephritis is an infection that occurs in the kidney. The kidneys are organs that help clean the blood by moving waste out of the blood and into the pee (urine). This infection can happen quickly, or it can last for a long time. In most cases, it clears up with treatment and does not cause other problems. What are the causes? This condition may be caused by: Germs (bacteria) going from the bladder up to the kidney. This may happen after having a bladder infection. Germs going from the blood to the kidney. What increases the risk? This condition is more likely to develop in: women. Older people. People who have any of these conditions: ?Diabetes. ?Inflammation of the prostate gland (prostatitis), in males. ?Kidney stones or bladder stones. ?Other problems with the kidney or the parts of your body that carry pee from the kidneys to the bladder (ureters). ?Cancer. People who have a small, thin tube (catheter) placed in the bladder. People who are sexually active. Women who use a medicine that kills sperm (spermicide) to prevent . People who have had a prior urinary tract infection (UTI). What are the signs or symptoms? Symptoms of this condition include: Peeing often. A strong urge to pee right away. Burning or stinging when peeing. Belly pain. Back pain. Pain in the side (flank area). Fever or chills. Blood in the pee, or dark pee. Feeling sick to your stomach (nauseous) or throwing up (vomiting). How is this treated? This condition may be treated by: Taking antibiotic medicines by mouth (orally). Drinking enough fluids. If the infection is bad, you may need to stay in the hospital. You may be given antibiotics and fluids that are put directly into a vein through an IV tube. In some cases, other treatments may be needed. Follow these instructions at home: Medicines Take your antibiotic medicine as told by your doctor. Do not stop taking the antibiotic even if you start to feel better. Take [id number] and prescription medicines only as told by your doctor. General instructions Drink enough fluid to keep your pee pale yellow. Avoid caffeine, tea, and carbonated drinks. Pee (urinate) often. Avoid holding in pee for long periods of time. Pee before and after sex. After pooping (having a bowel movement), women should wipe from front to back. Use each tissue only once. Keep all follow-up visits as told by your doctor. This is important. Contact a doctor if: You do not feel better after 2 days. Your symptoms get worse. You have a fever. Get help right away if: You cannot take your medicine or drink fluids as told. You have chills and shaking. You throw up. You have very bad pain in your side or back. You feel very weak or you pass out (faint). Summary Pyelonephritis is an infection that occurs in the kidney. In most cases, this infection clears up with treatment and does not cause other problems. Take your antibiotic medicine as told by your doctor. Do not stop taking the antibiotic even if you start to feel better. Drink enough fluid to keep your pee pale yellow. This information is not intended to replace advice given to you by your health care provider. Make sure you discuss any questions you have with your health care provider. Document Released: 05/03/2005 Document Revised: 01/28/2019 Document Reviewed: 01/28/2019 [employer] Patient Education 2020 [employer]. Follow Up Care 02/01/2022 21:25:38 With:AVERY VILLEGAS Address: [address] [facility] [address] [place] [address]- [phone] Business (1) When:02/05/2022 Comments:You can use the pain medication every 6 hours as needed for pain, take the Bactrim twice daily until you have completed the course. Please follow-up with your primary care doctor the next 2 to 3 days. Please return to the ED for any new or worsening symptoms. [facility] Evaluation + Plan note 02-01-2022 Note Date & Type Note Facility 02-01-2022 Evaluation + Plan note Extrac rob from: Title:ED Note Author:Judith Mock DO Date :02/01/22 Acute pyelonephritis (N10: A cute pyelonephritis) Orders: acetaminophen-hydrocodone, 1 tab(s), Oral, q6hr for pain, 12 tab(s), Refill(s) 0 acetaminophen-hydrocodone, 1 EA, Tab, Oral, Once, Stop date 02/02/22 0:01:00 EDT, STAT, Start date 02/02/22 0:01:00 EDT Al hydroxide/Mg hydroxide/simethicone, 30 mL, Susp-Oral, Oral, Once, Stop date 02/01/22 22:12:00 EDT, STAT, Start date 02/01/22 22:12:00 EDT atropine/hyoscyamine/PB/scopolamine, 10 mL, Elixir, Oral, Once, Stop date 02/01/22 22:12:00 EDT, STAT, Start date 02/01/22 22:12:00 EDT lidocaine topical, 200 mg, 10 mL, Soln-Oral, Oral, Once, Stop date 02/01/22 22:12:00 EDT, STAT, Start date 02/01/22 22:12:00 EDT ondansetron, 4 mg = 2 mL, Injection, IV Push, Once, Stop date 02/01/22 22:12:00 EDT, STAT, Start date 02/01/22 22:12:00 EDT, 02/01/22 22:12:00 EDT pantoprazole, 40 mg = 10 mL, Injection, IV Push, Once, Stop date 02/01/22 22:12:00 EDT, STAT, Start date 02/01/22 22:12:00 EDT, 02/01/22 22:12:00 EDT sulfamethoxazole-trimethoprim, 1 tab(s), Tab, Oral, Once, Stop date 02/02/22 0:01:00 EDT, STAT, Start date 02/02/22 0:01:00 EDT sulfamethoxazole-trimethoprim, 1 tab(s), Oral, BID for 10 day(s), 20 tab(s), Refill(s) 0 Automated Diff Basic Metabolic Panel Beta hCG Qual CBC w/ Auto Diff CT Abdomen/Pelvis w/ Contrast eGFR Hepatic Function Panel Lipase Level UA With Cult Reflex Urine Culture US Gallbladder [facility] Chief complaint+Reason for visit Narrative Note Date & Type Note Facility Chief complaint+Reason for v isit Narrative [facility] Work Phone: Evaluation note Note Date & Type Note Facility Evaluation note No assessment information availa ble [facility] Work Phone: Evaluation note Note Date & Type Note Facility Evaluation note Diagnosis Onset Date Alcohol use disorder acute BMI 21.0-21.9, adult acute Controlled diabetes mellitus with hyperglycemia acute Dietary counseling and surveillance acute Hyperlipidemia acute Vitamin D deficiency acute [place] Work Phone: History general Narrative - Reported Note Date & Type Note Facility History general Narrative - Reported Type Medical History Hx of abnormal pap Medical History Hx of pancreatitis Medical History type II diabetes Medical History bipolar Surgical History hemangioma removed from lip at age 4 Hospitalization History See Above Hospitalization History pancreatitis [facility] Hospital course Narrative Note Date & Type Note Facility Hospital course Narrative No data available for this section [facility] Progress note Note Date & Type Note Facility Progress note No data available for this section [facility] Chief Complaint and Reason for Visit Chief Complaint N/V G62.9 Chief Complaint N/V G62.9 gbs Chief Complaint N/V G62.9 gbs G62.9 R20.0 R26.89 Chief Complaint N/V G62.9 gbs G62.9 R20.0 R26.89 G62.9 R20.0 R26.89 Chief Complaint NO METER Benign essential hypertension Reason for Visit Alcohol use disorder BMI 21.0-21.9, adult Controlled diabetes mellitus with hyperglycemia Dietary counseling and surveillance Hyperlipidemia Vitamin D deficiency Family History No Family History Records Found Relationship Condition Age at Onset Recorded Date/T lizzy father Diabetes mellitus Unknown Myocardial infarction Unknown Malignant neoplasm Unknown grandparent Myocardial infarction Unknown sister Hypertension Unknown Relationship Condition Age at Onset Recorded Date/T lizzy father Diabetes mellitus Unknown Myocardial infarction Unknown Malignant neoplasm Unknown grandparent Myocardial infarction Unknown sister Hypertension Unknown Heart disease Unknown family member Family history of other condition Unknow n Advance Directives No Advanced Directives Records Found Advance Directive Response Recorded Date/ Time Advance Directives No July 30 8:04am Advance Directive Response Recorded Date/ Time Advance Directives No July 30 7:04am Summary Purpose Additional Source Comments Care Teams (unrecognized sec tion and content) Team Status: Inactive Member Role Status Dates Avery Villegas APRN COLLEGE [employer]UTOR-C Attending Provider Active Team Status: Inactive Member Role Status Dates Services [facility] Primary Care Provider Active Hal Orozco DO Emergency Provider Active Team Status: Inactive Member Role Status Dates Delfino Reese MD Attending Provider Active Yeyo Mcneill , COLLEGE TUTOR-C Primary Care Provider Active Team Status: Active Member Role Status Dates Yeyo Mcneill , COLLEGE TUTOR-C Primary Care Provider Active Team Status: Inactive Member Role Status Dates Yeyo Mcneill , COLLEGE T[employer]OR-C Primary Care Provider Active Delfino Reese MD Attending Provider Active Team Status: Active Member Role Status Dates Avery Villegas APRN [employer]LEGE [employer]OR-C Primary Care Provider Act dario Team Status: Inactive Member Role Status Dates Becky Gambino APRN Attending Provider Active Start: March 27, 2023 End: March 27, 2023 Team Status: Inactive Member Role Status Dates Becky Gambino APRN Attending Provider Active Start: March 27, 2023 End: March 27, 2023 Avery Villegas APRN [employer]LEGE [employer]OR-C Primary Care Provider Act dario Start: March 27, 2023 End: March 27, 2023 Team Status: Inactive Member Role Status Dates Avery Villegas APRN [employer]LEGE [employer]OR-C Primary Care Provider Act dario Start: June 14, 2023 End: June 14, 2023 Becky Gambino APRN Attending Provider Active Start: June 14, 2023 End: June 14, 2023 Team Status: Inactive Member Role Status Dates Avery Villegas APRN [employer]LEGE T[employer]OR-C Attending Provider Active Start: August 14, 2023 End: August 14, 2023 Goals (unrecognized section and content) Goals may be documented in a n alternate sectionGoals may be documented in an alternate sectionGoals may be documented in an alternate sectionGoals may be documented in an alternate section No data available for this sectionNo InformationGoals may be documented in an alternate sectionGoals may be documented in an alternate section INFORMATION SOURCE (unrecogn ized section and content) DATE CREATED AUTHOR 03/31/2022 [facility] DATE CREATED AUTHOR AUTHOR'S ORGANIZ ATION 01/20/2023 [facility] DATE CREATED AUTHOR AUTHOR'S ORGANIZ ATION 08/19/2023 [facility] REASON FOR VISIT (unrecogniz ed section and content) Referral [facility] FOR RECORDS PERTAINING TO PATIENTS WHO ARE OR HAVE BEEN ENROLLED IN A CHEMICAL DEPENDENCY/SUBSTANCEABUSE PROGRAM, SOME INFORMATION MAY BE OMITTED. This clinical summary was aggregated from multiple sources. Caution should be exercised in using it in the provision of clinical care. This summary normalizes information from multiple sources, and as a consequence, information in this document may materially change the coding, format and clinical context of patient data. In addition, data may be omitted in some cases. CLINICAL DECISIONS SHOULD BE BASED ON THE PRIMARY CLINICAL RECORDS. [facility] [employer] [facility]. provides no warranty or guarantee of the accuracy or completeness of information in this document.
[2023-11-22 15:31] LABS: HCG Qualitative NEGATIVE (NEGATIVE); Internal Control Within Normal Limits
[2023-11-22 15:34] LABS: Alanine Aminotransferase 33 U/L (14-59); Albumin Globulin Ratio 1.2; Albumin Level 4.3 g/dL (3.4-5.0); Alkaline Phosphatase 81 U/L (46-116); Anion Gap 22.2; Aspartate Amino Transferase 48 U/L (15-37); Bilirubin Total 0.5 mg/dL (0.2-1.0); Calcium 8.9 mg/dL (8.5-10.1); Carbon Dioxide 22.2 mmol/L (21.0-32.0); Chloride 97 mmol/L (98-107); Estimated GFR (African America >60 (>=60); Estimated GFR (Non-African Ame >60 (>=60); Ethanol 434 mg/dL; Globulin 3.5 g/dL; Glucose 97 mg/dL (74-106); Magnesium 1.4 mg/dL (1.8-2.4); Potassium 3.4 mmol/L (3.5-5.1); Sodium 138 mmol/L (136-145); Total Protein 7.8 g/dL (6.4-8.2)
[2023-11-22 15:36] LABS: BUN Creatinine Ratio 6.3
[2023-11-22] MEDS: MAGNESIUM SULFATE IN WATER 2 GM/50 ML PREMIX IV (15:55)
[2023-11-22 16:19] LABS: Bilirubin Urine NEGATIVE (NEGATIVE); Blood Urine NEGATIVE (NEGATIVE); Clarity Urine CLEAR (CLEAR); Color Urine LT. YELLOW (YELLOW); Glucose Urine UA NEGATIVE (NEGATIVE); Ketones Urine NEGATIVE (NEGATIVE); Leukocyte Esterase Urine NEGATIVE (NEGATIVE); Nitrite Urine NEGATIVE (NEGATIVE); Protein Urine NEGATIVE (NEG/TRACE); Specific Gravity Urine <=1.005 (1.005-1.025); Urobilinogen Urine 0.2 EU/dL (0.2-1.0)
[2023-11-22 16:20] LABS: Urine Microscopic Indicated NO
[2023-11-22 16:28] LABS: Amphetamine Screen Urine NEGATIVE (NEGATIVE); Barbiturates Screen Urine NEGATIVE (NEGATIVE); Benzodiazepines Screen Urine NEGATIVE (NEGATIVE); Buprenorphine Screen Urine NEGATIVE (NEGATIVE); Cannabinoid Screen Urine NEGATIVE (NEGATIVE); Cocaine Screen Urine NEGATIVE (NEGATIVE); Methadone Screen Urine NEGATIVE (NEGATIVE); Methamphetamines Screen Urine NEGATIVE (NEGATIVE); Opiate Screen Urine NEGATIVE (NEGATIVE); Oxycodone Screen Urine NEGATIVE (NEGATIVE); Phencyclidine Screen Urine NEGATIVE (NEGATIVE); Tricyclic Antidepressant Urine NEGATIVE (NEGATIVE)
--- NOTE | 2023-11-22 16:34 | PC.NURSE ---
Pt labs faxed to [facility] at this time. Bea from [facility] says she will have counselor call back and speak with pt one more time to agree on a rehab center
--- NOTE | 2023-11-22 17:31 | PC.NURSE ---
pt just finished speaking with counselor, Eva, on video-chat.
== END 2023-11-22 18:57 | disposition home or self-care (01) ==
PROVIDERS: Emergency Provider Emergency Medicine
DX: F10.129 Alcohol abuse with intoxication, unspecified (principal); Y90.8 Blood alcohol level of 240 mg/100 ml or more; F17.200 Nicotine dependence, unspecified, uncomplicated
CPT/HCPCS: 36415; 80053; 80307; 80320; 81003; 83690; 83735; 84703; 85025; 93005; 96361; 96365; 96366; 96375; 99284; J2405; J3475

== ENCOUNTER 2023-11-26 13:16 | Inpatient (IN) | payer BC, SELFPAY ==
[2023-11-26] VITALS (24 sets, daily range): BP systolic 114–153; BP diastolic 70–115; PULSE 69–105; TEMP 36.8–36.9; O2SAT 67–110; BMI 21.0; BMI 21.9
--- NOTE | 2023-11-26 14:03 | ECG_ITS ---
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
--- NOTE | 2023-11-26 14:12 | ED_ITS ---
HPI - Psych General Chief Complaint: Psychiatric Symptoms Stated Complaint: ALCOHOL/ GENERAL WEAKNESS Time Seen by Provider: 11/26/23 13:56 Source: Reports patient Mode of arrival: walk-in Limitations: Reports no limitations History of Present Illness HPI Narrative: Patient is a 38-year-old female well-known to this emergency department with a longstanding history of alcoholism who presents with her father today for evaluation. Patient states that she is here today for an IV and Ativan . Patient's father states that he brought her to the ER because he found her passed out on the floor. Patient was seen in this emergency department for the same symptoms 4 days ago. She reported to the triage nurse and to me that she no longer wants to live and has plans to stab herself with a knife. She typically drinks a liter of vodka daily. She has no history of alcohol related seizures. She is not concerned for . 4 days ago when the patient was seen, she was discharged with the understanding that she would go directly to a detox facility from the hospital. She states she did not go to a detox facility and went home to continue drinking. At time of my initial interview, I made the patient aware that due to her suicidal ideation, she will not be able to leave the emergency department until she is sober enough to discuss her presentation with a counselor or therapist. Her father is aware of this as well at bedside. A pink slip was initiated after my initial evaluation Related Data Home Medications ?Medication ?Instructions ?Recorded ?Confirmed amlodipine 5 mg tablet 5 mg PO DAILY 08/17/23 11/22/23 carbamazepine 200 mg tablet 200 mg PO DAILY 08/17/23 11/22/23 levothyroxine 50 mcg tablet 50 mcg PO DAILY 08/17/23 11/22/23 losartan 25 mg tablet 25 mg PO DAILY 08/17/23 11/22/23 metformin 500 mg tablet,extended 1,000 mg PO DAILY 08/17/23 11/22/23 release 24 hr omeprazole 40 mg capsule,delayed 40 mg PO DAILY 08/17/23 11/22/23 release paliperidone 6 mg tablet,extended 6 mg PO DAILY 08/17/23 11/22/23 release 24 hr quetiapine 25 mg tablet 75 mg PO DAILY 08/17/23 11/22/23 Previous Rx's ?Medication ?Instructions ?Recorded clonidine HCl 0.2 mg tablet 0.1 mg (1/2 x 0.2 mg) PO Q4H PRN 08/18/23 Alcohol Withdrawal #60 tabs Allergies Allergy/AdvReac Type Severity Reaction Status Date / Time lisinopril Allergy Intermediate Verified 08/17/23 10:08 Review of Systems ROS Constitutional Denies: fever or chills Ears, nose, mouth, and throat Denies: throat pain or nasal congestion Respiratory Denies: shortness of breath Gastrointestinal Reports: nausea and vomiting Musculoskeletal Denies: back pain or neck pain Integumentary/Breast Denies: rash Hematologic/Lymphatic Denies: easy bruising or easy bleeding [facility] Medical History (Updated 11/26/23 @ 15:20 by MAGGY Pritchett) Alcohol abuse ?F10.10 - Alcohol abuse, uncomplicated (ICD-10) Type 2 diabetes mellitus ?E11.9 - Type 2 diabetes mellitus without complications (ICD-10) Bipolar 1 disorder ?F31.9 - Bipolar disorder, unspecified (ICD-10) HTN (hypertension) ?I10 - Essential (primary) hypertension (ICD-10) Abdominal pain ?R10.9 - Unspecified abdominal pain (ICD-10) Hypothyroidism ?E03.9 - Hypothyroidism, unspecified (ICD-10) Pancreatitis ?K85.90 - Acute pancreatitis without necrosis or infection, unspecified (ICD- 10) Social History Within the past year, how often did you have a drink containing alcohol: 4 or more times a week Within the past year, how many standard drinks containing alcohol did you have on a typical day: 7 to 9 Within the past year, how often did you have six or more drinks on one occasion: daily or almost daily Total score: 10 Score interpretation: A score of 3 or more indicates drinking is likely to affect patient's safety. Smoking status: Current every day smoker Do you use any of these nicotine containing products: vaping products Non-prescribed substance use: denies use Highest level of school completed/degree received: high school graduate Exam Narrative Exam Narrative: Gen.: Awake, alert, in no distress Head: Normocephalic, atraumatic ENT: Moist mucous membranes, C-spine nontender, no facial or dental injury noted. Respiratory: No respiratory distress, lungs clear bilaterally Cardio: Regular rate and rhythm Gastrointestinal: Abdomen is soft, nondistended and nontender to palpation Extremities: Moves extremities equally, no injuries noted Psych: Normal mood and affect Neuro: No focal neuro deficit Skin: Warm, dry, intact Constitutional Vital Signs, click to edit/add: Last Vital Signs Temp 98.2 F 11/26/23 13:41 Pulse 105 H 11/26/23 13:41 Resp 20 11/26/23 13:41 BP 153/115 H 11/26/23 13:41 Pulse Ox 97 11/26/23 13:41 O2 Del Method Room Air 11/26/23 13:41 Course Vital Signs Vital signs: Vital Signs Temperature 98.2 F 11/26/23 13:41 Pulse Rate 105 H 11/26/23 13:41 Respiratory Rate 20 11/26/23 13:41 Blood Pressure 153/115 H 11/26/23 13:41 Pulse Oximetry 97 11/26/23 13:41 Oxygen Delivery Method Room Air 11/26/23 13:41 Temperature 98.2 F 11/26/23 13:41 Pulse Rate 105 H 11/26/23 13:41 Respiratory Rate 11/26/23 13:41 Blood Pressure 153/115 H 11/26/23 13:41 Pulse Oximetry 97 11/26/23 13:41 Oxygen Delivery Method Room Air 11/26/23 13:41 MDM - Psych MDM Narrative Medical decision making narrative: Patient and her father refused the head CT. At this time she is intoxicated but able to answer questions appropriately. Patient's father is adamant that he found her on an air mattress passed out and does not believe she could have hit her head. Patient does not have any obvious evidence of head trauma or other injuries and she is arousable. Patient's father is aware that by refusing the CT of the brain, will we are unable to rule out bleeding in the brain or skull fracture. Labs obtained showing an alcohol level of 463. As the patient is not able to be cleared by [facility]'s counseling until her alcohol level is under 200, she will need approximately 17-1/2 hours before she is sober enough to be cleared by psychiatry services. I discussed this with the hospitalist and he is agreeable to admission. Magnesium level noted to be low and the patient was given magnesium with her banana bag. Patient was reevaluated by attending physician and she and her father were made aware that we will admit her at this time. SHARED APC VISIT, PHYSICIAN ATTESTATION: [id number] I performed a substantive part of the MDM during the patient?s E/M visit. I personally evaluated and examined the patient. I personally made or approved the documented management plan and acknowledge its risk of complications. Medical Records Attestation: I reviewed the patient's medical records. Lab Data Attestation: I reviewed the patient's lab results. Labs: Lab Results 11/26/23 Range/Units 14:20 WBC 4.2 (4.0-11.0) 10^3/uL RBC 4.64 (4.20-5.40) 10^6/uL Hgb 14.9 (12.0-16.0) g/dL Hct 42.9 (36.0-48.0) % MCV 92.5 (81.0-99.0) fL MCH 32.1 (26.7-34.0) pg MCHC 34.7 (29.9-35.2) g/dL RDW 12.1 (11.0-15.0) % Plt Count 124 L (150-450) 10^3/uL MPV 9.1 L (9.5-13.5) fL Neut % (Auto) 46.6 (43.0-75.0) % Lymph % (Auto) 44.4 (20.5-60.0) % [place] % (Auto) 5.5 (1.7-12.0) % Eos % (Auto) 1.2 (0.9-7.0) % Baso % (Auto) 2.1 H (0.2-2.0) % Neut # (Auto) 2.0 (1.4-6.5) 10^3/uL Lymph # (Auto) 1.9 (1.2-3.8) 10^3/uL [place] # (Auto) 0.2 L (0.3-0.8) 10^3/uL Eos # (Auto) 0.1 (0.0-0.7) 10^3/uL Baso # (Auto) 0.1 (0.0-0.1) 10^3/uL Abs Immat Gran (auto) 0.01 (0.00-0.03) 10^3/uL Imm/Tot Granulo (auto) 0.2 (0.0-0.5) % PT 10.8 (9.0-11.6) sec INR 1.02 Sodium 138 (136-145) mmol/L Potassium 4.1 (3.5-5.1) mmol/L Chloride 94 L (98-107) mmol/L Carbon Dioxide 19.3 L (21.0-32.0) mmol/L Anion Gap 28.8 BUN 8.0 (7.0-18.0) mg/dL Creatinine 0.68 (0.55-1.02) mg/dL Est GFR ( Amer) >60 (>=60) Est GFR (Non-Af Amer) >60 (>=60) BUN/Creatinine Ratio 11.8 Glucose 76 (74-106) mg/dL Calcium 9.0 (8.5-10.1) mg/dL Magnesium 1.5 L (1.8-2.4) mg/dL Total Bilirubin 0.8 (0.2-1.0) mg/dL AST 76 H (15-37) U/L ALT 38 (14-59) U/L Alkaline Phosphatase 91 (46-116) U/L Total Protein 7.9 (6.4-8.2) g/dL Albumin 4.2 (3.4-5.0) g/dL Globulin 3.7 g/dL Albumin/Globulin Ratio 1.1 Serum HCG, Qual Negative (NEGATIVE) Salicylates <2.8 (<=19.9) mg/dL Acetaminophen <2.0 L (10.0-30.0) ug/mL Ethanol Quant 463 mg/dL ECG Data Attestation: I personally reviewed and interpreted this ECG as follows: (Normal sinus rhythm at a rate of 70, no acute ST elevation or ectopy. EKG reviewed by attending physician) Critical Care Time Critical Care Time Critical Care Time: Yes Total Critical Care Time: 35 Attestation: 35 minutes of critical care time for dedicated sitter, pink slip filed for suicidal ideation and admission for alcohol intoxication with the potential for withdrawal symptoms Discharge Plan Discharge Chief Complaint: Psychiatric Symptoms Clinical Impression: Suicidal ideation Alcoholic intoxication Qualifiers: Complication of substance-induced condition: uncomplicated Qualified Code(s): F10.920 - Alcohol use, unspecified with intoxication, uncomplicated Patient Disposition: Admitted As Inpatient Time of Disposition Decision: 15:20 Condition: Good
[2023-11-26 14:31] LABS: Basophils Absolute Auto 0.1 10^3/uL (0.0-0.1); Basophils Percent Auto 2.1 % (0.2-2.0); Eosinophils Absolute Auto 0.1 10^3/uL (0.0-0.7); Eosinophils Percent Auto 1.2 % (0.9-7.0); Hematocrit 42.9 % (36.0-48.0); Hemoglobin 14.9 g/dL (12.0-16.0); Immature Granulocytes Abs Auto 0.01 10^3/uL (0.00-0.03); Immature Granulocytes Pct Auto 0.2 % (0.0-0.5); Lymphocytes Absolute Auto 1.9 10^3/uL (1.2-3.8); Lymphocytes Percent Auto 44.4 % (20.5-60.0); Mean Corpuscular HGB Conc 34.7 g/dL (29.9-35.2); Mean Corpuscular Hemoglobin 32.1 pg (26.7-34.0); Mean Corpuscular Volume 92.5 fL (81.0-99.0); Mean Platelet Volume 9.1 fL (9.5-13.5); Monocytes Absolute Auto 0.2 10^3/uL (0.3-0.8); Monocytes Percent Auto 5.5 % (1.7-12.0); Neutrophils Percent Auto 46.6 % (43.0-75.0); Platelet Count 124 10^3/uL (150-450); Red Blood Count 4.64 10^6/uL (4.20-5.40); Red Cell Distribution Width 12.1 % (11.0-15.0); White Blood Count 4.2 10^3/uL (4.0-11.0)
[2023-11-26 14:43] LABS: INR 1.02; Prothrombin Time 10.8 sec (9.0-11.6)
[2023-11-26 14:48] LABS: HCG Qualitative NEGATIVE (NEGATIVE); Internal Control Within Normal Limits
[2023-11-26 14:52] LABS: Alanine Aminotransferase 38 U/L (14-59); Albumin Globulin Ratio 1.1; Albumin Level 4.2 g/dL (3.4-5.0); Alkaline Phosphatase 91 U/L (46-116); Anion Gap 28.8; Aspartate Amino Transferase 76 U/L (15-37); BUN Creatinine Ratio 11.8; Bilirubin Total 0.8 mg/dL (0.2-1.0); Carbon Dioxide 19.3 mmol/L (21.0-32.0); Chloride 94 mmol/L (98-107); Estimated GFR (African America >60 (>=60); Estimated GFR (Non-African Ame >60 (>=60); Globulin 3.7 g/dL; Glucose 76 mg/dL (74-106); Potassium 4.1 mmol/L (3.5-5.1); Sodium 138 mmol/L (136-145); Total Protein 7.9 g/dL (6.4-8.2)
[2023-11-26 14:53] LABS: Salicylate <2.8 mg/dL (<=19.9)
[2023-11-26 14:54] LABS: Acetaminophen <2.0 ug/mL (10.0-30.0); Ethanol 463 mg/dL; Magnesium 1.5 mg/dL (1.8-2.4)
[2023-11-26] MEDS: LORAZEPAM 2 MG/ML VIAL 0.5 MG IV ×2 (15:16→21:38)
[2023-11-26] MEDS: ONDANSETRON PF 4 MG/2 ML VIAL IV ×2 (15:19→17:10)
[2023-11-26] MEDS: MULTIVIT INFUSN,ADULT 4,VIT K 10 ML in 0.9 % SODIUM CHLORIDE 1,000 ML 125 ML IV (15:24)
--- NOTE | 2023-11-26 16:24 | PM.HP ---
HPI H&P: HPI History of Present Illness Chief complaint: ALCOHOL/ GENERAL WEAKNESS Narrative: 38-year-old female with a longstanding history of alcoholism was brought in by her father when he saw her passed out on the floor from alcohol intoxication. She told the tirage RN that she did not want to live any long and wished to kill herself by stabbing with a knife. She reports drinking a whole bottle of Liquor and did not remember passing out. She has prior hx of admission to ED or hospital for alcohol intoxication and/or withdrawal but typically signs out against medical advice. She was pink slipped by ED due to her suicidal ideation and admitted for monitoring/treatment of alcohol use disorder/intoxication and quite possibly alcohol withdrawal as the alcohol within her system is metabolized. She has prior hx of alcohol withdrawal and was very emotional and tearful about her situation. She is guilty and feels terrible for unable to quite. She has been through rehab and detox before but relapses soon after. She is still sleepy and drowsy and appeared drunk but was able to answer my questions appropriately. Opioid HPI Opioid Management Most Recent Pain and Opioid Data: Last Pain Scale 8 08/17/23 11:54 Last ORT Total Score 6 08/17/23 12:51 Last ORT Risk Category Moderate Risk 08/17/23 12:51 Ur Phencyclidine Scrn Negative (NEGATIVE) 11/22/23 15:54 Review of Systems ROS Status of ROS 10 or more systems reviewed and unremarkable except as noted in history and below [facility] Medical History (Updated 11/26/23 @ 15:20 by MAGGY Pritchett) Alcohol abuse ?F10.10 - Alcohol abuse, uncomplicated (ICD-10) Type 2 diabetes mellitus ?E11.9 - Type 2 diabetes mellitus without complications (ICD-10) Bipolar 1 disorder ?F31.9 - Bipolar disorder, unspecified (ICD-10) HTN (hypertension) ?I10 - Essential (primary) hypertension (ICD-10) Abdominal pain ?R10.9 - Unspecified abdominal pain (ICD-10) Hypothyroidism ?E03.9 - Hypothyroidism, unspecified (ICD-10) Pancreatitis ?K85.90 - Acute pancreatitis without necrosis or infection, unspecified (ICD-10) Social History Within the past year, how often did you have a drink containing alcohol: 4 or more times a week Within the past year, how many standard drinks containing alcohol did you have on a typical day: 7 to 9 Within the past year, how often did you have six or more drinks on one occasion: daily or almost daily Total score: 10 Score interpretation: A score of 3 or more indicates drinking is likely to affect patient's safety. Smoking status: Current every day smoker Do you use any of these nicotine containing products: vaping products Non-prescribed substance use: denies use Highest level of school completed/degree received: high school graduate Meds Home Medications and Allergies Home Medications ?Medication ?Instructions ?Recorded ?Confirmed ?Type amlodipine 5 mg tablet 5 mg PO DAILY 08/17/23 11/26/23 History carbamazepine 200 mg tablet 200 mg PO DAILY 08/17/23 11/26/23 History levothyroxine 50 mcg tablet 50 mcg PO DAILY 08/17/23 11/26/23 History losartan 25 mg tablet 25 mg PO DAILY 08/17/23 11/26/23 History metformin 500 mg tablet,extended 500 mg PO DAILY 08/17/23 11/26/23 History release 24 hr omeprazole 40 mg capsule,delayed 40 mg PO DAILY 08/17/23 11/26/23 History release paliperidone 6 mg tablet,extended 6 mg PO DAILY 08/17/23 11/26/23 History release 24 hr quetiapine 25 mg tablet 25 mg PO DAILY 08/17/23 11/26/23 History clonidine HCl 0.2 mg tablet 0.1 mg (1/2 x 0.2 mg) PO Q4H PRN 08/18/23 11/26/23 Rx Alcohol Withdrawal #60 tabs Allergies Allergy/AdvReac Type Severity Reaction Status Date / Time lisinopril Allergy Intermediate Verified 08/17/23 10:08 Exam Constitutional Vital Signs, click to edit/add: Last Vital Signs Temp 98.2 F 11/26/23 13:41 Pulse 83 11/26/23 16:10 Resp 19 11/26/23 16:10 BP 143/100 H 11/26/23 15:24 Pulse Ox 97 11/26/23 13:41 O2 Del Method Room Air 11/26/23 13:41 Documenting provider has reviewed patient's vital signs: yes Common normals: no apparent distress General appearance: disheveled, lethargic, ill appearing and odor of alcohol detected [facility] Common normals: normocephalic and head/scalp atraumatic Head and scalp: normocephalic and atraumatic Eye Common normals: conjunctivae normal and no scleral icterus Conjunctiva: conjunctiva(e) normal Respiratory Common normals: normal respiratory effort and clear to auscultation bilaterally Effort & inspection: able to speak in complete sentences Auscultation: clear to auscultation bilaterally Cardio Common normals: regular rate, S1 normal heart sound and S2 normal heart sound Rate: regular rate Heart sounds: S1 normal and S2 normal GI Common normals: Normal to inspection, nondistended, normoactive bowel sounds present, soft to palpation, non-tender and no hepatosplenomegaly Palpation: soft and no hepatosplenomegaly Extremity Common normals: no clubbing, cyanosis or edema Neuro Common normals: oriented x3, moves all extremities and no focal motor deficits Sensorium/orientation: lethargic and somnolent Psych Common normals: mental status grossly normal, thought process normal, denies hallucinations and denies homicidal ideation Mood and affect: depressed mood, irritable and tearful Thought process: normal thought process Thought content: suicidality Insight: insight good Judgement: judgment good Results Labs Labs: Short CBC 11/26/23 Range/Units 14:20 WBC 4.2 (4.0-11.0) 10^3/uL Hgb 14.9 (12.0-16.0) g/dL Hct 42.9 (36.0-48.0) % Plt Count 124 L (150-450) 10^3/uL BMP 11/26/23 14:20 Sodium 138 Potassium 4.1 Chloride 94 L Carbon Dioxide 19.3 L BUN 8.0 Creatinine 0.68 Glucose 76 Calcium 9.0 Liver Function 11/26/23 Range/Units 14:20 Total Bilirubin 0.8 (0.2-1.0) mg/dL AST 76 H (15-37) U/L ALT 38 (14-59) U/L Alkaline Phosphatase 91 (46-116) U/L Albumin 4.2 (3.4-5.0) g/dL Assessment and Plan Assessment and Plan (1) Suicidal ideation: Assessment and Plan: Suicidal ideation with a plan. Once medically stable, will need inpatient psych eval. (2) Alcoholic intoxication: Assessment and Plan: Ethanol levels of >400. Still intoxicated but now more awake and alert. Monitor closely for withdrawal. Added clonidine and ativan as needed Qualifiers: Complication of substance-induced condition: uncomplicated Qualified Code(s): F10.920 - Alcohol use, unspecified with intoxication, uncomplicated (3) Type 2 diabetes mellitus: Assessment and Plan: SSI while inpatient. Qualifiers: Diabetes mellitus assisted insulin use: without assisted use Diabetes mellitus complication status: with hyperglycemia Qualified Code(s): E11.65 - Type 2 diabetes mellitus with hyperglycemia (4) Bipolar 1 disorder: Assessment and Plan: Resume patient's home medications. Monitor closely. WIll need inpatient psych eval once medically cleared. (5) HTN (hypertension): Assessment and Plan: Above goal. Added clonidine as needed. C/w norvasc Qualifiers: Hypertension type: primary hypertension Qualified Code(s): I10 - Essential (primary) hypertension (6) Hypothyroidism: Assessment and Plan: c/w levothyroxine Qualifiers: Hypothyroidism type: unspecified Qualified Code(s): E03.9 - Hypothyroidism, unspecified
--- OUTSIDE RECORDS SUMMARY | 2023-11-26 16:42 | XMS_ITS | CCD ---
Author Organization [facility] Care Team Providers Care Clinical Leader Name Role Phone [facility], Services Primary Care Provider 1( [phone] DO Hal Orozco Emergency Provider CATIA Villegas Attending Provider MD Delfino Reese Attending Provider ERINN McneillC Yeyo Martinez Primary Care Provider AVERY VILLEGAS Primary Care Physician MAGGY WORLEY Consulting Unavailable MISC, DR GOMEZ Primary Care Unavailable MARKER, DR MARVIN Attending Unavailable MARKER, DR MARVIN Admitting Unavailable MARKER, DR MARVIN Consulting Unavailable DEL ROSARIO, GIHarsha Consulting Unavailable MISC, DR GOMEZ Primary Care Unavailable SUMAYA, DR BRUNO Attending Unavailable SUMAYA, DR BRUNO Admitting Unavailable OBEY, DR DENO Anthony Consulting Unavailable SUMAYA, DR BRUNO Consulting [...] Attending Provider CATIA Villegas Primary Care Provider [phone] CATIA Villegas Attending Provider Becky Gambino Attending [...] Swelling of Lip/Tongue/Throa t, Anaphylactic reaction, Unknown [facility] Medications Current Medications Medication Drug Class(es) Dates Sig (Normalized) Sig (Original) acetaminophen 325 mg / HYDROcodone bitartrate 5 mg oral tablet (1 source) Opioid Agonist Start: 02-02-2022 [place] 325 mg-5 mg oral tablet 1 tab(s), [...] PO Daily June 14, 2023 3:16pm FreeStyle [place] 3 Sensor - (1 source) Start: 03-27-2023 [...] Phenothiazine Start: 11-06-2021 Promethazine Active 25 MG ND Q6H November 06, 2021 12:00am QUEtiapine 25 [...] unspecified] Chronic Other aftercare (1 source) Other senior living (current) drug therapy; Translations: [OTH ALF CURRENT DRUG THERAPY] Onset: 2 Episodic Other [...] 08-14-2023 ALT [Catalytic activity/Vol] 29 U/L 7-52 [facility] Albumin [Mass/volume] in Ser um or Plasma by Bromocresol green (BCG) dye binding methoOrdered By: Avery Villegas on 08-14-2023 Albumin BCG dye [Mass/Vol] 4.8 g/dL 3.5-5.7 [facility] Alkaline phosphatase [Enzyma tic activity/volume] in Serum or PlasmaOrdered By: Avery Villegas on 08-14-2023 ALP [Catalytic activity/Vol] 82 U/L 34-104 [facility] Aspartate aminotransferase [ Enzymatic activity/volume] in Serum or PlasmaOrdered By: Avery Villegas on 08-14-2023 AST [Catalytic activity/Vol] 78 U/L 13-39 [facility] Basophils Auto (Bld) [#/Vol] Ordered By: Avery Villegas on 08-14-2023 Basophils (Bld) [#/Vol] 0.1 10*3/uL 0.0-0.2 [facility] Basophils/100 WBC Auto (Bld) Ordered By: Avery Villegas on 08-14-2023 Basophils/100 WBC (Bld) 1.9 % . [facility] Bilirubin.total [Mass/volume ] in Serum or PlasmaOrdered By: Avery Villegas on 08-14-2023 Bilirubin [Mass/Vol] 0.5 mg/dL 0.3-1.0 [facility] Calcium [Mass/volume] in Ser um or PlasmaOrdered By: Avery Villegas on 08-14-2023 Calcium [Mass/Vol] 9.6 mg/dL 8.6-10.3 [facility] Carbon dioxide, total [Moles /volume] in Serum or PlasmaOrdered By: Avery Villegas on 08-14-2023 CO2 [Moles/Vol] 24.7 mmol/L 21.0-31.0 [facility] Chloride [Moles/volume] in S ben or PlasmaOrdered By: Avery Villegas on 08-14-2023 Chloride [Moles/Vol] 95 mmol/L 98-107 [facility] Cholesterol [Mass/volume] in Serum or PlasmaOrdered By: Avery Villegas on 08-14-2023 Cholesterol [Mass/Vol] 333 mg/dL 140-200 [facility] Comment on above: Chol less than 200 m g/dl low riskChol 201-239 mg/dl borderline riskChol 240 mg/dl and greater high risk Cholesterol in LDL Calc [Mas s/Vol]Ordered By: Avery Villegas on 08-14-2023 Cholesterol in LDL [Mass/Vol] 181 mg/dL 0-100 [facility] Comment on above: LDL ATP III CLASSIFI CATIONLDL less than 100 mg/dL OptimalLDL 100-129 mg/dL Near or above optimalLDL 130-159 mg/dL Borderline highLDL 160-189 mg/dL HighLDL greater than 189 mg/dL Very high Cholesterol in VLDL Calc [Ma ss/Vol]Ordered By: Avery Villegas on 08-14-2023 Cholesterol in VLDL [Mass/Vol] 22 mg/dL [facility] Complete Blood Count Auto Di ffon 08-14-2023 Basophils (Bld) [#/Vol] 0.1 10*3/uL Normal 0.0-0.2 [facility] Comment on above: Order Comment: Reaso n for Exam Benign essential hypertension Result Comment: PERF ORMED BY: [place] [address] PATHOLOGIST DEVELOPMENT PLANNER OSMEL BLUE M.D. Performed By: #### C MP, TSH3 wRFLX, LIPID, CBC #### [facility] [address] [place] [address] Basophils/100 WBC (Bld) 1.9 % Normal . [facility] Comment on above: Order Comment: Reaso n for Exam Benign essential hypertension Performed By: #### C MP, TSH3 wRFLX, LIPID, CBC #### [facility] [address] Eosinophils (Bld) [#/Vol] 0.0 10*3/uL Normal 0.0-0.45 [facility] Comment on above: Order Comment: Reaso n for Exam Benign essential hypertension Performed By: #### C MP, TSH3 wRFLX, LIPID, CBC #### [place] [address] [place] Eosinophils/100 WBC (Bld) 1.0 % Normal . [facility] Comment on above: Order Comment: Reaso n for Exam Benign essential hypertension Performed By: #### C MP, TSH3 wRFLX, LIPID, CBC #### [facility] [address] [place] [address] Erythrocyte distribution width (RBC) [Ratio] 14.2 % Normal 11.9-15.3 [facility] Comment on above: Order Comment: Reaso n for Exam Benign essential hypertension Performed By: #### C MP, TSH3 wRFLX, LIPID, CBC #### [address] Hematocrit (Bld) [Volume fraction] 39.2 % Normal 34.0-46.4 [facility] Comment on above: Order Comment: Reaso n for Exam Benign essential hypertension Performed By: #### C MP, TSH3 wRFLX, LIPID, CBC #### [address] Hemoglobin (Bld) [Mass/Vol] 13.4 g/dL Normal 11.8-15.4 [facility] Comment on above: Order Comment: Reaso n for Exam Benign essential hypertension Performed By: #### C MP, TSH3 wRFLX, LIPID, CBC #### [place] [address] [place] Lymphocytes (Bld) [#/Vol] 1.1 10*3/uL Normal 1.00-4.8 [facility] Comment on above: Order Comment: Reaso n for Exam Benign essential hypertension Performed By: #### C MP, TSH3 wRFLX, LIPID, CBC #### [place] [address] [place] Lymphocytes/100 WBC (Bld) 27.8 % Normal . [facility] Comment on above: Order Comment: Reaso n for Exam Benign essential hypertension Performed By: #### C MP, TSH3 wRFLX, LIPID, CBC #### [address] MCH (RBC) [Entitic mass] 33.3 pg Normal 24.7-34.3 [facility] Comment on above: Order Comment: Reaso n for Exam Benign essential hypertension Performed By: #### C MP, TSH3 wRFLX, LIPID, CBC #### [address] MCV (RBC) [Entitic vol] 97.1 fL Normal 80-100 [facility] Comment on above: Order Comment: Reaso n for Exam Benign essential hypertension Performed By: #### C MP, TSH3 wRFLX, LIPID, CBC #### [address] Mean Corpuscular HGB Conc 34.2 g/dL Normal 32.0-35.0 [facility] Comment on above: Order Comment: Reaso n for Exam Benign essential hypertension Performed By: #### C MP, TSH3 wRFLX, LIPID, CBC #### [place] [address] [place] Monocytes (Bld) [#/Vol] 0.4 10*3/uL Normal 0.0-0.8 [facility] Comment on above: Order Comment: Reaso n for Exam Benign essential hypertension Performed By: #### C MP, TSH3 wRFLX, LIPID, CBC #### [address] Monocytes/100 WBC (Bld) 11.5 % Normal . [facility] Comment on above: Order Comment: Reaso n for Exam Benign essential hypertension Performed By: #### C MP, TSH3 wRFLX, LIPID, CBC #### [place] [address] [place] Neutrophils (Bld) [#/Vol] 2.2 10*3/uL Normal 1.8-7.7 [facility] Comment on above: Order Comment: Reaso n for Exam Benign essential hypertension Performed By: #### C MP, TSH3 wRFLX, LIPID, CBC #### [address] Neutrophils/100 WBC (Bld) 57.8 % Normal . [facility] Comment on above: Order Comment: Reaso n for Exam Benign essential hypertension Performed By: #### C MP, TSH3 wRFLX, LIPID, CBC #### [facility] [address] NRBC% 0.3 /100{WBC} Normal 0-0.5 [facility] Comment on above: Order Comment: Reaso n for Exam Benign essential hypertension Performed By: #### C MP, TSH3 wRFLX, LIPID, CBC #### [facility] [address] Platelet mean volume (Bld) [Entitic vol] 7.1 fL Normal 6.3-10.7 [facility] Comment on above: Order Comment: Reaso n for Exam Benign essential hypertension Performed By: #### C MP, TSH3 wRFLX, LIPID, CBC #### [facility] [address] [place] [address] [place] Platelets (Bld) [#/Vol] 201 10*3/uL Normal 150-450 [facility] Comment on above: Order Comment: Reaso n for Exam Benign essential hypertension Performed By: #### C MP, TSH3 wRFLX, LIPID, CBC #### [address] RBC (Bld) [#/Vol] 4.03 10*6/uL Normal 3.60-5.00 [facility] Comment on above: Order Comment: Reaso n for Exam Benign essential hypertension Performed By: #### C MP, TSH3 wRFLX, LIPID, CBC #### [facility] [address] [place] [address] [place] WBC (Bld) [#/Vol] 3.8 10*3/uL Normal 3.8-11.6 [facility] Comment on above: Order Comment: Reaso n for Exam Benign essential hypertension Performed By: #### C MP, TSH3 wRFLX, LIPID, CBC #### [facility] [address] [place] [address] Comprehensive Metabolic Pane mike 08-14-2023 Albumin [Mass/Vol] 4.8 g/dL Normal 3.5-5.7 [facility] Comment on above: Order Comment: Reaso n for Exam Benign essential hypertension Performed By: #### C MP, TSH3 wRFLX, LIPID, CBC #### [facility] [address] [place] [id number] [place] Albumin/Globulin [Mass ratio] 1.9 {ratio} Normal [facility] Comment on above: Order Comment: Reaso n for Exam Benign essential hypertension Performed By: #### C MP, TSH3 wRFLX, LIPID, CBC #### [facility] [address] [place] [id number] [place] ALP [Catalytic activity/Vol] 82 U/L Normal 34-104 [facility] Comment on above: Order Comment: Reaso n for Exam Benign essential hypertension Performed By: #### C MP, TSH3 wRFLX, LIPID, CBC #### [facility] [address] [place] [address] [place] ALT [Catalytic activity/Vol] 29 U/L Normal 7-52 [facility] Comment on above: Order Comment: Reaso n for Exam Benign essential hypertension Performed By: #### C MP, TSH3 wRFLX, LIPID, CBC #### [facility] [address] [place] [id number] [facility] Anion gap [Moles/Vol] 14.5 mmol/L Normal 6.0-15.0 [facility] Comment on above: Order Comment: Reaso n for Exam Benign essential hypertension Performed By: #### C MP, TSH3 wRFLX, LIPID, CBC #### [facility] [address] [place] [id number] [place] AST [Catalytic activity/Vol] 78 U/L High 13-39 [facility] Comment on above: Order Comment: Reaso n for Exam Benign essential hypertension Performed By: #### C MP, TSH3 wRFLX, LIPID, CBC #### [facility] [address] [place] [id number] [place] Bilirubin [Mass/Vol] 0.5 mg/dL Normal 0.3-1.0 [facility] Comment on above: Order Comment: Reaso n for Exam Benign essential hypertension Performed By: #### C MP, TSH3 wRFLX, LIPID, CBC #### [facility] [address] [place] [address] [place] Calcium [Mass/Vol] 9.6 mg/dL Normal 8.6-10.3 [facility] Comment on above: Order Comment: Reaso n for Exam Benign essential hypertension Performed By: #### C MP, TSH3 wRFLX, LIPID, CBC #### [facility] [address] Chloride [Moles/Vol] 95 mmol/L Low 98-107 [facility] Comment on above: Order Comment: Reaso n for Exam Benign essential hypertension Performed By: #### C MP, TSH3 wRFLX, LIPID, CBC #### [facility] [address] [place] [address] [place] CO2 [Moles/Vol] 24.7 mmol/L Normal 21.0-31.0 [facility] Comment on above: Order Comment: Reaso n for Exam Benign essential hypertension Performed By: #### C MP, TSH3 wRFLX, LIPID, CBC #### [facility] [address] [place] [address] [place] Creatinine [Mass/Vol] 0.48 mg/dL Low 0.60-1.20 [facility] Comment on above: Order Comment: Reaso n for Exam Benign essential hypertension Performed By: #### C MP, TSH3 wRFLX, LIPID, CBC #### [facility] [address] [place] [address] [place] GFR/1.73 sq M.predicted MDRD (S/P/Bld) [Vol rate/Area] mL/min/{1.73_m2} Normal [facility] Comment on above: Order Comment: Reaso n for Exam Benign essential hypertension Performed By: #### C MP, TSH3 wRFLX, LIPID, CBC #### [facility] [address] [place] [address] [place] Globulin (S) [Mass/Vol] 2.5 g/dL Normal [facility] Comment on above: Order Comment: Reaso n for Exam Benign essential hypertension Performed By: #### C MP, TSH3 wRFLX, LIPID, CBC #### [facility] [address] [place] [address] [place] Glucose [Mass/Vol] 102 mg/dL High 70-100 [facility] Comment on above: Order Comment: Reaso n for Exam Benign essential hypertension Result Comment: [place] Glucose Reference Range is dependent on time and content of last meal. Glucose of more than 200 mg/dL in a nonstressed, ambulatory subject supports the diagnosis of Diabetes Mellitus. ADA recommended reference range Performed By: #### C MP, TSH3 wRFLX, LIPID, CBC #### [facility] [address] [place] [address] [place] Potassium [Moles/Vol] 4.2 mmol/L Normal 3.5-5.1 [facility] Comment on above: Order Comment: Reaso n for Exam Benign essential hypertension Performed By: #### C MP, TSH3 wRFLX, LIPID, CBC #### [facility] [address] [place] [address] [place] Protein [Mass/Vol] 7.3 g/dL Normal 6.4-8.9 [facility] Comment on above: Order Comment: Reaso n for Exam Benign essential hypertension Performed By: #### C MP, TSH3 wRFLX, LIPID, CBC #### [facility] [address] [place] [id number] [place] Sodium [Moles/Vol] 130 mmol/L Low 136-145 [facility] Comment on above: Order Comment: Reaso n for Exam Benign essential hypertension Performed By: #### C MP, TSH3 wRFLX, LIPID, CBC #### [facility] [address] [place] [id number] [place] Urea nitrogen [Mass/Vol] 5 mg/dL Low 7-25 [facility] Comment on above: Order Comment: Reaso n for Exam Benign essential hypertension Performed By: #### C MP, TSH3 wRFLX, LIPID, CBC #### [facility] [address] [place] [id number] [place] Creatinine [Mass/volume] in Serum or PlasmaOrdered By: Avery Villegas on 08-14-2023 Creatinine [Mass/Vol] 0.48 mg/dL 0.60-1.20 [facility] Eosinophils Auto (Bld) [#/Vo l]Ordered By: Avery Villegas on 08-14-2023 Eosinophils (Bld) [#/Vol] 0.0 10*3/uL 0.0-0.45 [facility] Eosinophils/100 WBC Auto (Bl d)Ordered By: Avery Villegas on 08-14-2023 Eosinophils/100 WBC (Bld) 1.0 % . [facility] Erythrocyte distribution wid th Auto (RBC) [Ratio]Ordered By: Avery Villegas on 08-14-2023 Erythrocyte distribution width (RBC) [Ratio] 14.2 % 11.9-15.3 [facility] Globulin Calc (S) [Mass/Vol] Ordered By: Avery Villegas on 08-14-2023 Globulin (S) [Mass/Vol] 2.5 g/dL [facility] Glucose [Mass/volume] in Ser um or PlasmaOrdered By: Avery Villegas on 08-14-2023 Glucose [Mass/Vol] 102 mg/dL 70-100 [facility] Comment on above: ADA recommended refe rence rangeRandom Glucose Reference Range is dependent on time and content of last meal. Glucose of more than 200 mg/dL in a nonstressed, ambulatory subject supports the diagnosis of Diabetes Mellitus. Hematocrit Auto (Bld) [Volum e fraction]Ordered By: Avery Villegas on 08-14-2023 Hematocrit (Bld) [Volume fraction] 39.2 % 34.0-46.4 [facility] Hemoglobin [Mass/volume] in BloodOrdered By: Avery Villegas on 08-14-2023 Hemoglobin (Bld) [Mass/Vol] 13.4 g/dL 11.8-15.4 [facility] Leukocytes [#/volume] correc rob for nucleated erythrocytes in Blood by Automated counOrdered By: Avery Villegas on 08-14-2023 WBC corrected for nucl RBC Auto (Bld) [#/Vol] 3.8 10*3/uL 3.8-11.6 [facility] Lipid Panelon 08-14-2023 Cholesterol [Mass/Vol] 333 mg/dL High 140-200 [facility] Comment on above: Order Comment: Reaso n for Exam Benign essential hypertension Result Comment: Chol less than 200 mg/dl low risk Chol 201-239 mg/dl borderline risk Chol 240 mg/dl and greater high risk Performed By: #### C MP, TSH3 wRFLX, LIPID, CBC #### [facility] [address] [place] [address] [place] Cholesterol in HDL [Mass/Vol] 130 mg/dL High 23-92 [facility] Comment on above: Order Comment: Reaso n for Exam Benign essential hypertension Result Comment: HDL CHOL ATP-III CLASSIFICATION Cardiovascular Risk HDL > or equal to 60 mg/dL LOW HDL < 40 mg/dL HIGH Performed By: #### C MP, TSH3 wRFLX, LIPID, CBC #### [facility] [address] Cholesterol.total/Chol esterol in HDL [Mass ratio] 2.6 {ratio} Normal <5.0 [facility] Comment on above: Order Comment: Reaso n for Exam Benign essential hypertension Performed By: #### C MP, TSH3 wRFLX, LIPID, CBC #### [facility] [address] [place] [address] [place] LDL Cholesterol,Calculated 181 mg/dL High 0-100 [facility] Comment on above: Order Comment: Reaso n for Exam Benign essential hypertension Result Comment: LDL ATP III CLASSIFICATION LDL less than 100 mg/dL Optimal LDL 100-129 mg/dL Near or above optimal LDL 130-159 mg/dL Borderline high LDL 160-189 mg/dL High LDL greater than 189 mg/dL Very high Performed By: #### C MP, TSH3 wRFLX, LIPID, CBC #### [facility] [address] [place] [id number] [place] Triglyceride w/Reflex 111 mg/dL Normal 0-149 [facility] Comment on above: Order [...] C MP, TSH3 wRFLX, LIPID, CBC #### [facility] [address] VLDL CHOLESTEROL 22 mg/dL Normal [facility] Comment on above: Order Comment: Qian brooks for Exam Benign essential hypertension Performed By: #### C MP, TSH3 wRFLX, LIPID, CBC #### [facility] [address] [place] [address] [place] Lymphocytes Auto (Bld) [#/Vo l]Ordered By: Avery Villegas on 08-14-2023 Lymphocytes (Bld) [#/Vol] 1.1 10*3/uL 1.00-4.8 [facility] Lymphocytes/100 WBC Auto (Bl d)Ordered By: Avery Villegas on 08-14-2023 Lymphocytes/100 WBC (Bld) 27.8 % . [facility] MCH Auto (RBC) [Entitic mass ]Ordered By: Avery Villegas on 08-14-2023 MCH (RBC) [Entitic mass] 33.3 pg 24.7-34.3 [facility] MCHC Auto (RBC) [Mass/Vol]Or dered By: Avery Villegas on 08-14-2023 MCHC (RBC) [Mass/Vol] 34.2 g/dL 32.0-35.0 [facility] MCV Auto (RBC) [Entitic vol] Ordered By: Avery Villegas on 08-14-2023 MCV (RBC) [Entitic vol] 97.1 fL 80-100 [facility] Monocytes Auto (Bld) [#/Vol] Ordered By: Avery Villegas on 08-14-2023 Monocytes (Bld) [#/Vol] 0.4 10*3/uL 0.0-0.8 [facility] Monocytes/100 WBC Auto (Bld) Ordered By: Avery Villegas on 08-14-2023 Monocytes/100 WBC (Bld) 11.5 % . [facility] Neutrophils Auto (Bld) [#/Vo l]Ordered By: Avery Villegas on 08-14-2023 Neutrophils (Bld) [#/Vol] 2.2 10*3/uL 1.8-7.7 [facility] Neutrophils/100 WBC Auto (Bl d)Ordered By: Avery Villegas on 08-14-2023 Neutrophils/100 WBC (Bld) 57.8 % . [facility] No Panel InformationOrdered By: Avery Villegas on 08-14-2023 Estimated GFR (CKD-EPI) > 60.0 mL/Min [facility] Creatinine Clearance (Chem N/A [facility] Nucleated erythrocytes [Pres ence] in Blood by Automated countOrdered By: Avery Villegas on 08-14-2023 Nucleated RBC Auto Ql (Bld) 0.3 /100{WBC} 0-0.5 [facility] Platelet mean volume Auto (B ld) [Entitic vol]Ordered By: Avery Villegas on 08-14-2023 Platelet mean volume (Bld) [Entitic vol] 7.1 fL 6.3-10.7 [facility] Platelets Auto (Bld) [#/Vol] Ordered By: Avery Villegas on 08-14-2023 Platelets (Bld) [#/Vol] 201 10*3/uL 150-450 [facility] Potassium [Moles/volume] in Serum or PlasmaOrdered By: Avery Villegas on 08-14-2023 Potassium [Moles/Vol] 4.2 mmol/L 3.5-5.1 [facility] Protein [Mass/volume] in Ser um or PlasmaOrdered By: Avery Villegas on 08-14-2023 Protein [Mass/Vol] 7.3 g/dL 6.4-8.9 [facility] RBC Auto (Bld) [#/Vol]Ordere d By: Avery Villegas on 08-14-2023 RBC (Bld) [#/Vol] 4.03 10*6/uL 3.60-5.00 [facility] Serum or plasma albumin/glob ulin mass ratioOrdered By: Avery Villegas on 08-14-2023 Albumin/Globulin [Mass ratio] 1.9 {ratio} [facility] Serum or plasma anion gap de terminationOrdered By: Avery Villegas on 08-14-2023 Anion gap [Moles/Vol] 14.5 mmol/L 6.0-15.0 [facility] Serum or plasma high density lipoprotein (HDL) cholesterol measurementOrdered By: Avery Villegas on 08-14-2023 Cholesterol in HDL [Mass/Vol] 130 mg/dL 23-92 [facility] Comment on above: HDL CHOL ATP-III CLA SSIFICATION Cardiovascular RiskHDL > or equal to 60 mg/dL LOWHDL < 40 mg/dL HIGH Serum or plasma total choles terol/high density lipoprotein (HDL) cholesterol mass ratOrdered By: Avery Villegas on 08-14-2023 Cholesterol.total/Chol esterol in HDL [Mass ratio] 2.6 {ratio} <5.0 [facility] Sodium [Moles/volume] in Ser um or PlasmaOrdered By: Avery Villegas on 08-14-2023 Sodium [Moles/Vol] 130 mmol/L 136-145 [facility] Thyroid Stim Hormone w/Rflxo n 08-14-2023 Thyroid Stim Hormone w/Rflx 1.86 u[iU]/mL Normal 0.45-5.33 [facility] Comment on above: Order Comment: Reaso n for Exam Benign essential hypertension Result Comment: PERF ORMED BY: [place] [address] PATHOLOGIST DEVELOPMENT PLANNER OSMEL BLUE M.D. Performed By: #### C MP, TSH3 wRFLX, LIPID, CBC #### [address] Thyrotropin [Units/volume] i n Serum or PlasmaOrdered By: Avery Villegas on 08-14-2023 TSH Qn 1.86 m[IU]/L 0.45-5.33 [facility] Triglyceride [Mass/volume] i n Serum or PlasmaOrdered By: Avery Villegas on 08-14-2023 Triglyceride [Mass/Vol] 111 mg/dL 0-149 [facility] Comment on above: TRIG ATP III CLASSIF ICATIONTRIG less than 150 mg/dL NormalTRIG 150-199 mg/dL Borderline highTRIG 200-500 mg/dL High TRIG greater than 500 mg/dL Very highStandard traceable to the Center for Disease Conrtrol and Prevention (CDC) test method. Urea nitrogen [Mass/volume] in Serum or PlasmaOrdered By: Avery Villegas on 08-14-2023 Urea nitrogen [Mass/Vol] 5 mg/dL 7-25 [facility] WBC Auto (Bld) [#/Vol]Ordere d By: Avery Villegas on 08-14-2023 WBC (Bld) [#/Vol] 3.8 10*3/uL 3.8-11.6 [facility] HbA1c HPLC (Bld) [Mass fract ion]on 06-14-2023 HbA1c (Bld) [Mass fraction] 4.7 % [facility] No Panel Informationon 06-13 Bedside Glucose 110 [facility] A1C HEMOGLOBINon 03-27-2023 HbA1c (Bld) [Mass fraction] 10.6 % [employer] Other Glucose - FINGER STICKon Glucose [Mass/Vol] 95 mg/dL [facility] [employer] Other HbA1c (Bld) [Mass fraction]o n 03-27-2023 A1C HEMOGLOBIN [facility] [employer] Other Consent for Treatmenton 10-07 Consent for Treatment [id number]:12 7 Normal [facility] Discharge Instructionson Discharge Instructions [id number]: 127 Normal [facility] ED Clinical Summaryon 2022 ED Clinical Summary (Inserted Image. Jackie ble to display) [place] [id number] ED Clinical Summary Person Information Name: SHIKHA LOERA/[facility] Age: 37 Years : 1985 Sex: Female Language: Togolese PCP: NONE, XXXX Marital Status: Visit Id: [...] 10/21/2022 08:36:13 10/21/2022 08:36:13 10/21/2022 08:36:13 ADDRESS: [address] [place] [address] [place] [id number] PHYS DOC NOTES: MEDICAL INFORMATION: Prescriptions Given: New Medications [id number], [address] [id number], [phone] cyclobenzaprine (cyclobenzaprine 5 mg Tab) 1 Tablets [...] Continue with No Changes Other Medications acetaminophen-hydrocodone ([place] 325 mg-5 mg oral tablet) 1 Tablets [...] worsening symptoms. DIAGNOSIS: Contusion of rib Normal [facility] ED Note-Physicianon 10-22-19 ED Note-Physician Basic Information [...] pain, # 21 tab(s), Refills(s) 0, Pharmacy: [facility]/pharmacy #[id number], 167.6, cm, 10/21/22 7:13:00 EDT, Height/Length Dosing, 61.5, kg, 10/21/22 7:13:00 EDT, Weight Dosing lidocaine topical, 1 patch(es), Topical, Daily, 7 EA, Refill(s) 0, apply 12 hours on and 12 hours off daily, [facility]/pharmacy #[id number], 167.6, cm, 10/21/22 7:13:00 EDT, Height/Length Dosing, 61.5, kg, 10/21/22 7:13:00 EDT, Weight Dosing naproxen, 500 mg = 1 tab(s), Oral, BID, PRN for pain, # 20 tab(s), Refills(s) 0, Pharmacy: [facility]/pharmacy #[id number], 167.6, cm, 10/21/22 7:13:00 EDT, Height/Length [...] No q (more content not included)... Normal [facility] Comment on above: Result Comment: Elec tronically [...] for lung collapse and pneumonia. ? Medicines. Ofdo-obk-sftptoc or prescription medicines may be given to control pain. ? Injection of a numbing medicine around the nerve near your injury (nerve block). Follow these instructions at home: Medicines ? Take nytx-ttw-dksrund and prescription medicines only as told by your health care provider. ? Ask your health care provider if the medicine prescribed to you: ? Requires you to avoid driving or using machinery. ? Can cause constipation. You may need to take these actions to prevent or treat constipation: ? Drink enough fluid to keep your urine pale yellow. ? Take fzeu-bsp-zknyfeg or prescription medicines. ? Eat foods that [...] provider. Document Revised: 06/30/2020 Document Reviewed: 06/30/2020 [email or web address] Patient Education ? 2022 Lingt. Normal [facility] ED Patient Summaryon 023 ED Patient Summary (Inserted Image. Jackie ble to display) [place] [id number] Patient Discharge Instructions Person Information Name: SHIKHA LOERA Age: 37 Years Arrival Date: 10/21/2022 06:56:51 Discharge Diagnosis: Contusion of rib Primary Care Physician: NONE, XXXX Provider Information Primary Provider: Thanh Bal DO Advanced Building Carpenter Helper:None The exam and treatment you received in the Emergency Department were for an urgent problem and are not intended as complete care. 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 If your symptoms [...] opioids can be used to help relieve uneotpss-fr-uedydn pain and are often prescribed following a [...] and ab (more content not included)... Normal [facility] XR Ribs Unilat 3 Views Left w/ [...] others may be chronic. No pneumothorax. Normal [facility] AMYLASEon 03-26-2022 Amylase [Catalytic activity/Vol] 20 U/L Critically low 25-[address] [facility] Comment on above: Performed By: #### L IPA, MADDY, CMP #### [facility] [address] [place] [address] Dr. Angela Aguero CBC W MANUAL DIFFon 03-26-20 22 ATYPICAL LYMPH # Normal [facility] Comment on above: Performed By: #### L IPA, MADDY, CMP #### [facility] [address] [place] [address] Dr. Angela Aguero ATYPICAL LYMPH % Normal [facility] Comment on above: Performed By: #### L IPA, MADDY, CMP #### [facility] [address] [place] [address] Dr. Angela Aguero BAND # 0.0 103/ul Normal 0.0-0.[address] [facility] Comment on above: Performed By: #### L IPA, MADDY, CMP #### [facility] [address] [place] [address] Dr. Angela Aguero BAND % 0 % Normal 0-[address] [facility] Comment on above: Performed By: #### L IPA, MADDY, CMP #### [facility] [address] [place] [address] Dr. Angela Aguero BASOM # 0.07 103/ul Normal 0.00-0.10 [facility] Comment on above: Performed By: #### L IPA, MADDY, CMP #### [facility] [address] [place] [address] Dr. Angela Aguero BASOM % 1.0 % Normal 0.2-2.[address] [facility] Comment on above: Performed By: #### L IPA, MADDY, CMP #### [facility] [address] [place] [address] Dr. Angela Aguero BLAST # Normal [facility] Comment on above: Performed By: #### L IPA, MADDY, CMP #### [facility] [address] [address] [address] Angela Aguero BLAST % Normal [facility] Comment on above: Performed By: #### L MADDY SMITH, CMP #### [facility] [address] [address] [address] Angela Aguero CORRECTED WBC Normal 4.0-11.0 [facility] Comment on above: Performed By: #### L MADDY SMITH, CMP #### [facility] [address] [address] [address] Angela Aguero EOS # 0.00 103/ul Normal 0.00-0.[address] [facility] Comment on above: Performed By: #### L MADDY SMTIH, CMP #### [facility] [address] [address] [address] Angela Aguero EOS% 0.0 % Critically low 0.9-7.0 [facility] Comment on above: Performed By: #### L MADDY SMITH, CMP #### [facility] [address] [place] [address] Dr. Angela Aguero HCT 42.7 % Normal 36.0-48.[address] [facility] Comment on above: Performed By: #### L MADDY SMITH, CMP #### [facility] [address] [address] [address] Angela Aguero HGB 15.0 g/dl Normal 12.0-16.0 [facility] Comment on above: Performed By: #### L MADDY SMITH, CMP #### [facility] [address] [address] [address] Angela Aguero LYMPHM # 0.28 103/ul Critically low 1.20-3.80 [facility] Comment on above: Performed By: #### L LUIS MADDY, CMP #### [facility] [address] [address] [address] Angela Aguero LYMPHM% 4.0 % Critically low 20.5-60.0 [facility] Comment on above: Performed By: #### L LUIS MADDY, CMP #### [facility] [address] [address] [address] Angela Aguero MCH 34.1 pg Critically high 26.7-34.0 [facility] Comment on above: Performed By: #### L IPA, MADDY, CMP #### [facility] [address] [place] [address] Dr. Angela Aguero MCHC 35.1 g/dl Normal 29.9-35.2 [facility] Comment on above: Performed By: #### L IPA, MADDY, CMP #### [facility] [address] [place] [address] Dr. Angela Aguero MCV 97.0 fL Normal 81.0-99.[address] [facility] Comment on above: Performed By: #### L IPA MADDY, CMP #### [facility] [address] [place] [address] Dr. Angela Aguero METAMYELOCYTE # Normal [facility] Comment on above: Performed By: #### L IPA MADDY, CMP #### [facility] [address] [place] [address] Dr. Angela Aguero METAMYELOCYTE % Normal [facility] Comment on above: Performed By: #### L IPA MADDY, CMP #### [facility] [address] [place] [address] Dr. Angela Aguero MONOM# 0.21 103/ul Critically low 0.30-0.80 [facility] Comment on above: Performed By: #### L IPA, MADDY, CMP #### [facility] [address] [place] [address] Dr. Angela Aguero MONOM% 3.0 % Normal 1.7-12.0 [facility] Comment on above: Performed By: #### L IPA, MADDY, CMP #### [facility] [address] [place] [address] Dr. Angela Aguero MPV 9.4 fL Critically low 9.5-13.5 [facility] Comment on above: Performed By: #### L IPA, MADDY, CMP #### [facility] [address] [place] [address] Dr. Angela Aguero MYELOCYTE # Normal [facility] Comment on above: Performed By: #### L IPA, MADDY, CMP #### [facility] [address] [address] [address] Angela Aguero MYELOCYTE % Normal [facility] Comment on above: Performed By: #### L IPA, MADDY, CMP #### [facility] [address] [address] [address] Angela Aguero NRBC Normal [facility] Comment on above: Performed By: #### L IPA, MADDY, CMP #### [facility] [address] [address] [address] Angela Aguero PLT 252 103/ul Normal 150-[address] [facility] Comment on above: Performed By: #### L IPA, MADDY, CMP #### [facility] [address] [address] [address] Angela Aguero RBC 4.40 106/ul Normal 4.20-5.[address] [facility] Comment on above: Performed By: #### L IPA, MADDY, CMP #### [facility] [address] [address] [address] Angela Aguero RDW 11.3 % Normal 11.0-15.[address] [facility] Comment on above: Performed By: #### L IPA, MADDY, CMP #### [facility] [address] [address] [address] Angela Aguero SEG # 6.44 103/ul Normal 1.40-6.50 [facility] Comment on above: Performed By: #### L IPA, MADDY, CMP #### [facility] [address] [address] [address] Angela Aguero SEG % 92.0 % Critically high 43.0-75.0 [facility] Comment on above: Performed By: #### L IPA, MADDY, CMP #### [facility] [address] [address] [address] Angela Aguero WBC 7.0 103/ul Normal 4.0-11.[address] [facility] Comment on above: Performed By: #### L IPA, MADDY, CMP #### [facility] [address] [place] [address] Dr. Angela Aguero ETHANOL (BLD ALC)on 03-26-20 22 ALC NOTE NOTE: 80 mg/dl is th e legal limit for a blood alcohol level Normal [facility] Comment on above: Performed By: #### L MADDY SMITH, CMP #### [facility] [address] [place] [address] Dr. Angela Aguero Ethanol [Mass/Vol] mg/dL Normal [facility] Comment on above: Performed By: #### L MADDY SMITH, CMP #### [facility] [address] [place] [address] Dr. Angela Aguero LIPASEon 03-26-2022 Lipase [Catalytic activity/Vol] 43.0 U/L Critically low 73.0-393.[address] [facility] Comment on above: Performed By: #### L MADDY SMITH, CMP #### [facility] [address] [place] [address] Dr. Angela Aguero PROF 14(COMP METB)on Albumin [Mass/Vol] 3.9 g/dL Normal 3.4-5.0 [facility] Comment on above: Performed By: #### L MADDY SMITH, CMP #### [facility] [address] [place] [address] Dr. Angela Aguero Albumin/Globulin [Mass ratio] 0.9 {ratio} Normal [facility] Comment on above: Performed By: #### L MADDY SMITH, CMP #### [facility] [address] [place] [address] Dr. Angela Aguero ALP [Catalytic activity/Vol] 129 U/L Critically high 46-116 [facility] Comment on above: Performed By: #### L MADDY SMITH, CMP #### [facility] [address] [place] [address] Dr. Angela Aguero ALT [Catalytic activity/Vol] 143 U/L Critically high 14-[address] [facility] Comment on above: Performed By: #### L MADDY SMITH, CMP #### [facility] [address] [place] [address] Dr. Angela Aguero Anion gap [Moles/Vol] 16.4 mmol/L Normal [facility] Comment on above: Performed By: #### L MADDY SMITH, CMP #### [facility] [address] [address] [address] Angela Aguero AST [Catalytic activity/Vol] 306 U/L Critically high 15-[address] [facility] Comment on above: Performed By: #### L MADDY SMITH, CMP #### [facility] [address] [place] [address] Dr. Angela Aguero Bilirubin [Mass/Vol] 1.7 mg/dL Critically high 0.2-1.[address] [facility] Comment on above: Performed By: #### L MADDY SMITH, CMP #### [facility] [address] [place] [address] Dr. Angela Aguero Calcium [Mass/Vol] 9.4 mg/dL Normal 8.5-10.1 [facility] Comment on above: Performed By: #### L MADDY SMITH, CMP #### [facility] [address] [place] [address] Dr. Angela Aguero Chloride [Moles/Vol] 99 mmol/L Normal 98-[address] [facility] Comment on above: Performed By: #### L MADDY SMITH, CMP #### [facility] [address] [place] [address] Dr. Angela Aguero CO2 [Moles/Vol] 25.9 mmol/L Normal 21.0-32.0 [facility] Comment on above: Performed By: #### L MADDY SMITH, CMP #### [facility] [address] [place] [address] Dr. Angela Aguero Creatinine [Mass/Vol] 0.82 mg/dL Normal 0.55-1.[address] [facility] Comment on above: Performed By: #### L MADDY SMITH, CMP #### [facility] [address] [place] [address] Dr. Angela Aguero EGFR-AF ANGUILLAN >60 Normal >=60 [facility] Comment on above: Performed By: #### L MADDY SMITH, CMP #### [facility] [address] [address] [address] Angela Aguero EGFR-NON AF ANGUILLAN >60 Normal >=[address] [facility] Comment on above: Performed By: #### L MADDY SMITH, CMP #### [facility] [address] [address] [address] Angela Aguero Globulin (S) [Mass/Vol] 4.4 g/dL Normal [facility] Comment on above: Performed By: #### L MADDY SMITH, CMP #### [facility] [address] [address] [address] Angela Aguero Glucose [Mass/Vol] 207 mg/dL Critically high 74-106 [facility] Comment on above: Performed By: #### L MADDY SMITH, CMP #### [facility] [address] [place] [address] Dr. Angela Aguero Potassium [Moles/Vol] 3.3 mmol/L Critically low 3.5-5.[address] [facility] Comment on above: Performed By: #### L MADDY SMITH, CMP #### [facility] [address] [address] [address] Angela Aguero Protein [Mass/Vol] 8.3 g/dL Critically high 6.4-8.2 [facility] Comment on above: Performed By: #### L MADDY SMITH, CMP #### [facility] [address] [place] [address] Dr. Angela Aguero Sodium [Moles/Vol] 138 mmol/L Normal 136-145 [facility] Comment on above: Performed By: #### L MADDY SMITH, CMP #### [facility] [address] [place] [address] Dr. Angela Aguero Urea nitrogen [Mass/Vol] 5.0 mg/dL Critically low 7.0-18.[address] [facility] Comment on above: Performed By: #### L MADDY SMITH, CMP #### [facility] [address] [place] [address] Dr. Angela Aguero Urea nitrogen/Creatinine [Mass ratio] 6.1 mg/mg [facility] Comment on above: Performed By: #### L MADDY SMITH, CMP #### [facility] [address] [place] [address] Dr. Angela Aguero Coding Summary.on 02-06-2022 Coding Summary. CD:[id number] Gh0bW w+PGhlYWQ+KF7XMGHqP75jaTK jsC4WD9bHQO2OKPQKBAXNSO9S KA0hvCH9HMwpX8QesgTl NzyhnEFiXQ17OOg3BFG5dEfpD MgygN6gmHUrQ6i0YzUeBJ40eU 72XPziMRLrWuJ6BdCvhsxllUI y P2gkPdZcfGOdHhq+PHRhYmxlI HdpZHRoPScxMDAlJyBzdHlsZT 6oFc2zFEGwUNZvfCojaTKbVlN j g4yyVBOkBQujSO8vvSxkV3Npq RI3EUGqm0u9Il52yKX+PHRkIH X0qEcuMVptp772VwAri5vkDTG 3 aHSiREumYTR8V67it8X9FRWxW WGqODM4gIC9fK9sdTftiubeU1 XnyEJgSzF4FXH5rDYlzF9zmAp n cyzioB6jXaz+B96MWG7JTCQBM P3QKdu8A0TmAcmnwBY+PC90YW GlMQ43cYIalVJqw4xbsJo2UqA w WVOtFQX6nGceDHitg1RlDTAmR 96zbVHsa8Z1DFJmkPterLPvLj FvsNI8nG3uWZgvhfoqi2yrdmn n Rfmpc3oqtc61qX67Z32yNLxkC XZqEKP7FMOmVCZmoUqfck0pcS 9wIi8+LAlwz8ybi5ulsJv9RhS w CNJgqmPhmRsdAVQ9u2ZaSc08C 1QrgQhog4HtFtp7zm67lDDuq9 T9dVR1ZPwuYGMqyJ4oGYnpYeG 6 OFCpYvKbxQ25kYBgTPxlYr2ba XwygXzfYE6fNUUbsdvmXZRzsG 8jVMNtjJXhnJtePV9nADVnysg m x207KyYyIRE6AQXhrZWdL8Yul P6rYdKhFWWwSUZiE4GqePHyXP cyF069ABisKiS0HXNulmJkB6L s JMEajGhjQlG0f7W3Po2Vb5Dfe ntwVMU1TXtfKRDmYbZfDkIlVe Y9L9YcSny0WQHzbTvpGU5kB8N h ZMBfqbljdtgosQJ2XEShPADqw M60hDKqUFynAt2sc0Z7i929WV IvQFXpqJ10Ns2gxAsrPWRsoQG U sH3bzhqes4vajybbKjGrOYXkX Zv0NTl6XLOjoTjzJdOwWVZ6Cf Q6CDZ2rHBshR9ieCygjmekuX7 w Oyc+S61neQ7fTNH6OOA3urtbF JLrzsDyWT12IN88K1RfVwuiqH FibGU+LERbdoJttEjlEF0rCkB j o5ctp6PxSPmrJ3ZdIUZnVYciC qb4ZLVyQSO9iEE8bD7fOHMuSJ pns4X4bUG6Z9ToinKcbo1et8z s KHQqHAiuC53laAKdw8R7NFDzx EY3MHDyzRekYlXnkI46Lhx+PG CuwCyog2LtHhvyo9nvt5asvUs 9 ZyUtURApfjButTvhTHA4e6JbB e25J66fJXquDRToNJYiSRYbCU FauHnlas1omT6mBx9+PGNvbCB 3 iJE8qK3ySHXyGxH6JChbY173R kWltZAiCuowb1ufa5pxiAs0Vn IrNDYvsyLczQudXOB3n3JcDq4 8 K26aIPlcSGEkCYNkJDQyUNWcm Gbiwr8nmD9wTk9+EW7cn4omkj 39kG00cGU+GGWxXHK2gCtcRUy w VDKtqF2hJVitIaD0WAOgNzMhi C83vSChNSjxBe0ybBweoMdnGC 6tDSBfceapy921GxHyl1agSVQ w vKVkOJfbSCN8I28po7B9WRXbI PMrJEP2bDT4iZ2asXngvhvdqG SspPpvwtRgrCguRNqpFDmvS55 6 IHRvcDsnPlBhdGllbnQgTmFtZ Ed2Y1GiXnr8EHTryLbkWC1naI OaMYacOe2qmIhvwVxpOB8uRLE p rzimh701YiHio8veHNQorKJaT KsnIWC8Q31sb5E3AIAxCFDvUU V4jTB2gX2qjWgbrmwmcYWszUs g krQbmJuzSUqcNPgzC624XSXxq JuiEvOzahWiBRGpgWT4ZW53PK 79hHWqr7A0vIF9S8NzWUZjbda t assrsXV7JHTsXRElcV00Bp9mz UpePs7hGVXtUYP8KSEvqNPvH3 OmzJ4pMcXvKPBzQPOcF2CobIT t NTonJ015VMvmDuE7UNMkvmYcZ 5DoUSBkeHlnFoB3n6L4Ei0TQ3 Z7RA08WH20zYVup9Q9mFF7J3N h NVXkmmbcsxbviUZ0VYGaAFTax F25Fx0fuSpeBv6nUVIfAES4GT KmvTUjP6PolV9jPkGlJWEnYGR w K8LkqDSrDAomP230SItfQcF0K VOtvcGsF6DzPKWfiUahEtI1e5 G6Hp9KXVa5HU96DY83tIQuj4L 5 aXT9G3OgYCUsoqfbdedcqKT1Y LYbRTQrdO43Ub8fqKuuSj4lQW EwIUX1VKQdcJUmY5OvtL7yBjY j VMLnTIXhR1GbkZXgDHrcT049U RpfNyQ0VJOzwfMuK8RxBSVfzN euGfJ9n7Y2Vl7DPFKzVM91BOV 5 bZA9MF36CQ61V3JuSztvvSNuz +PHRhYmxlIHdpZHRoPScxMD IcMmYrnIqmMV8wEr7tOMEdNAO v oIcjjCFbEaLzj3fqQOTvHXvrM T2yiGpkA6CeyRU7OFPvw6c9Zi 00B86fE7AfiKY+BZQlwXQ9yLA 0 zZ8rQxEfStR9BKwbI835NjNye JRfKzoti7xid9jflKl5HfV1KO UwcgWoeLfoQHK3b7UaSl84F39 s IHdpZHRoPSIxNSUiIHZhbGlnb d5lxK7oXb9+VCKsbWV4dFH5aI 0vQnEhKgQ7FLisM975GiCquXW v Tliwg5hjg8aljLs0RtMiFPLav vGhoDjtBHU4h4RzTb96M0TkzC kui9VvQtd3xk83fTOhf8C3uEB 9 O7YbRIMhpftlhUXlhSaqLN3nN NLuywerLDLcuQ8cDXRaF6g9Vr RdWhD3ILxpF9YomwE9JWWzsVD g AVfvJMY0F17ab0P5LIAvEVKyT YL2rXQ9uL0jgEqlbgslsWEaaG rbilGtuEbvGWhaKBwvC203XBL v dGnoTLHbjE1mAVHmfHJmrEtgD Z9oBCGcjzdgFy8VZFeUKHKBCD htFF7EBdHECP41CW44cGDok2U 5 lAX1P4LzPBKgngaqsdlujUX6G CJzNLFwdB52tCXxYPitCk1nq2 I5n474OISpCOAdwS98Ki0ljCb g QOHzuOIObF9lopune8fohqzcI dWbTQWaMYi8OWu9LXTmmWqgNo IxNAD7WoE1WTH1gHLnjM7evUm n ntlybD5iOtq+ABZtNOrnOKw1W TwvdGQ+EXJrXQA3eBcbTAhcID XnvW2wBKGbV6u7BwEqLvN2TUd u I6UmXNHzrwdnQq57cT7nGaKrS tI9MJwdI1LjwqX6BNLqiJEtJS ykKGO9N15ed2Y3XEQlZCPpRCN 7 uXB4eZ6qlApfeavcdJMihJzwx pTkdQxwTFyuWGjsF928TPBuiE uvFaQ0DZjfPBNrDN15XK95tJR g b3G8cIM7R2AoIKGtlimxpsinr PE6QSSzGRAzgM31mRDjNHbpBd 5rl9S9q552HDHyCYJcgX39Sz3 u dCmiYSWmbTNMxY3rybpmn5btd nayApTfVUXvNXu6TNa9SNIyqJ zaLfBcEYY5XxK6JPE2kRKunX8 h uBhyrpzexO9bQuv+RmVtYWxlP F48BS51jEVcq9Z1mUT2X2DgVO FzscmdbqishXH3RSCxZCRjkU4 7 uJGgUMryZj3qk0S7s412JHUwR VDohR76Lc8jhHqcJAJlvBQVfD 2fqejvd3urcrfpNgAkXTFgBQu 0 JDl6JMQyaSsvSuIjWTM9JsV6C BI6wCDjhP6cwRspjderwN1qLf c+JW5zmahnhxD5SV50KM78V0Z y PjwvdGFibGU+PHRhYmxlIHdpZ RDpQCmsEUPlZyWkiReuOX2qMc 4rPUGrLBTqaVshbQGqLfUtz7a s UMOsDRnkMO9caAkcA4IpdDM6N FOkz6c4Sw44X49wF2NdfDV+PG UfrTG0mDP1rB6vAtFkVfY5UGa p O327RpUbyJFtMgkgg4qpv5tcx Hu8FvXnBMVauwYakDqkIFE4z6 TfQs54D72zDWydHKOkACLfLOI i WREdiSbcrc9wtC4rGn5+PGNvb TD2uUI2mY6lAoZaHnR2YUjoJ9 23UeUudNQcOulgX04hF3DgtDR + FAFwCdl0QEEvyWllPO5bfZSsW YpyGe7lAKN7TtHbGpIbHNfxQ8 WlVHXeybkidstilQV8YWOwSVT w sB15Cz9njBbdXy4yKIQnVDX4E AHdsOZmQ0KehJ4iUyXmDYIiYV EnB0KleAUlLBhbU265UYrnGrI 7 OJTzxgTbY5FoVOBzhLoxXsJ3l 4J7Ow9TpAcfeIXvHD0zMcUsTY j7S7XlTlb6GKLqoTpiDE8laEV k ZAmpGx4zxKbvzCjmOR1wPLSys kegh160VeSxj4ldTOEdnYAuTF hhVSW4A30jg5Y5MVEcGBKqTDL 7 jLX2tF5riJzkyoekjXQzhCmzo gHkxAwmMBgjAJkhV795XNVwiD xtWsRTJfi1Q9TxSur7DELxnIx s WZ7iuHIxFObuCd0gyTierJhdI F3hVOVfyttbv818ApWds3enTA QfrJCtTEpgWQT9Z23ac0J2XZC w RFGdGTU4nXE9qE4ahVetxfqfi GVmdDsgdmVydGljYWwtYWxpZ2 47VQBqtSzkQm9GPdt4R3SeEeu 0 TLIwuPqiUN8ijQTbOAhdBo2qc AzgqFmpCY6hMFVigwsxp305Le Waq7jpMKYxlXGxQNnhIYW1I24 s m4O2YKJtUGVwAON0pBX1nR8ya GlnbjogbGVmdDsgdmVydGljYW ftQZmmH966EKRxzLugMqWcuMO y OjwvdGQ+VQ42ur41I7EhWtxrL ec0CEReMMM9mXN1jF3sRNFcAO rqz5A2gKK6X1IbdpHjmy5yn3k s YXBz (more content not included)... [facility] C Urineon 02-03-2022 Bacteria identified Cx Nom [...] Locations R1: This test was performed at: [facility], [address] [place] [address], [address] , , Normal [facility] Comment on above: Performed By: #### 2 [id number], [id number] ####[address] [address] Auto Diffon 02-02-2022 Basophils/100 WBC (Bld) 0.9 % Normal 0.0-2.0 [facility] Comment on above: Order Comment: Order Added by Discern Expert. Performed By: #### 2 401113, [id number], 2049557, 3623237, [id number], 7537773 ####[address] [address] Basophils/Leukocytes Auto (Bld) [Pure # fraction] 0.1 E9/L Normal 0.0-0.2 [facility] Comment on above: Order Comment: Order Added by Discern Expert. Performed By: #### 2 808574, 0774664, 9336338, 2617063, [id number], [id number] ####[address] [place] [address] Eosinophils/100 WBC (Bld) 0.6 % Normal 0.0-8.0 [facility] Comment on above: Order Comment: Order Added by Discern Expert. Performed By: #### 2 047192, 9913141, 1712287, 6842879, [id number], 6809143 ####[address] [place] [address] Eosinophils/Leukocytes Auto (Bld) [Pure # fraction] 0.0 E9/L Normal 0.0-0.5 [facility] Comment on above: Order Comment: Order Added by Discern Expert. Performed By: #### 2 450823, 8525360, 4218438, 8156543, 97946332, 1206784 ####[address] [address] Lymphocytes/100 WBC (Bld) 22.1 % Normal 14.0-50.0 [facility] Comment on above: Order Comment: Order Added by Discern Expert. Performed By: #### 2 877120, 9225312, 7261327, 7042945, [id number], 8546745 ####[address] [address] Lymphocytes/Leukocytes Auto (Bld) [Pure # fraction] 1.3 E9/L Normal 1.0-4.0 [facility] Comment on above: Order Comment: Order Added by Discern Expert. Performed By: #### 2 043595, 5078166, 0154813, 7392477, 92786207, 2987214 ####[address] [address] Monocytes/100 WBC (Bld) 9.5 % Normal 4.0-14.0 [facility] Comment on above: Order Comment: Order Added by Discern Expert. Performed By: #### 2 526360, 7434399, 0704287, 2371931, 57611406, 4519454 ####[place] [address] [address] Monocytes/Leukocytes Auto (Bld) [Pure # fraction] 0.6 E9/L Normal 0.2-1.0 [facility] Comment on above: Order Comment: Order Added by Discern Expert. Performed By: #### 2 940344, 6727194, 0904990, 3770859, 95371426, 5090043 ####[address] [address] Neutrophils/100 WBC (Bld) 66.9 % Normal 36.0-75.0 [facility] Comment on above: Order Comment: Order Added by Discern Expert. Performed By: #### 2 156057, 6867337, 9119675, 4477071, 15388800, 7552099 ####[address] [address] Neutrophils/Leukocytes Auto (Bld) [Pure # fraction] 4.0 E9/L Normal 2.0-7.5 [facility] Comment on above: Order Comment: Order Added by Discern Expert. Performed By: #### 2 178522, 6957705, 4333998, 8598327, [id number], 2586654 ####[address] [address] B hCG Qualon 02-02-2022 Beta hCG Ql Negative Normal [facility] Comment on above: Performed By: #### 2 [id number] ####[address] [address] BMPon 02-02-2022 Anion gap [Moles/Vol] 21 mmol/L High 6-16 [facility] Comment on above: Performed By: #### 2 285759, 0305150, 9224819, 4589923, 42442748, 4123366 ####[facility] [id number] [place] [address] Calcium [Mass/Vol] 9.2 mg/dL Normal 8.9-11.1 [facility] Comment on above: Performed By: #### 2 543103, 9110345, 0611322, 5915890, 35131430, 5801263 ####[facility] [id number] [place] [address] Chloride [Moles/Vol] 100 mmol/L Low 101-111 [facility] Comment on above: Performed By: #### 2 497621, 2675887, 5919081, 5394094, 23692341, 7474522 ####[facility] [address] [place] [address] CO2 [Moles/Vol] 20 mmol/L Low 21-31 [facility] Comment on above: Performed By: #### 2 784426, 7969448, 8785723, 6544028, 99083577, 6186633 ####[facility] [address] [place] [address] Creatinine [Mass/Vol] 0.7 mg/dL Normal 0.5-1.3 [facility] Comment on above: Performed By: #### 2 877138, 2375960, 4540429, 1031663, 10845472, 0295218 ####[facility] [address] [place] [address] Glucose [Mass/Vol] 176 mg/dL Normal 55-199 [facility] Comment on above: Result Comment: If t his glucose result represents a fasting glucose, interpretation should refer to the following reference range: 55-99 mg/dL Performed By: #### 2 369024, 1143189, 3135564, 6726326, 94819618, 7148203 ####[facility] [address] [place] [address] Potassium [Moles/Vol] 3.4 mmol/L Low 3.5-5.3 [facility] Comment on above: Performed By: #### 2 162644, 3111251, 7060456, 9769724, 60439868, 0465197 ####[facility] [address] [place] [address] Sodium [Moles/Vol] 138 mmol/L Normal 135-145 [facility] Comment on above: Performed By: #### 2 387440, 1531227, 4165727, 2813150, 18237521, 4405696 ####[facility] [address] [place] [address] Urea nitrogen [Mass/Vol] mg/dL Normal 5-21 [facility] Comment on above: Performed By: #### 2 881308, 3394712, 3704278, 4350675, 41852749, 3640215 ####[facility] [address] [place] [address] Urea nitrogen/Creatinine [Mass ratio] UTC Abnormal 10-20 [facility] Comment on above: Result Comment: Resu lt verified by Discern Rule. Performed result UT (Unable to Calculate) was sent as an Alpha code due the inability to calculate a valid numeric value. Performed By: #### 2 972577, 0064876, 5768550, 4210503, 42579111, 8998356 ####[place] [address] [place] [address] CBC w/ Auto Diffon Erythrocyte distribution width (RBC) [Ratio] 13.6 % Normal 10.9-14.2 [facility] Comment on above: Performed By: #### 2 152058, 9887547, 5538423, 3082136, 98916279, 9754421 ####[address] [place] [address] Hematocrit (Bld) [Volume fraction] 44.9 % Normal 34.0-46.0 [facility] Comment on above: Performed By: #### 2 106573, 6230254, 1828697, 9442622, 83325483, 9528368 ####[facility] [address] [place] [address] Hemoglobin (Bld) [Mass/Vol] 15.6 g/dL Normal 12.0-16.0 [facility] Comment on above: Performed By: #### 2 659873, 4117556, 8140022, 8603702, 17757894, 6442432 ####[address] [address] MCH (RBC) [Entitic mass] 34.3 pg High 27.0-34.0 [facility] Comment on above: Performed By: #### 2 343072, 4892160, 6184013, 4416920, 97526801, 3790548 ####[address] [address] MCHC (RBC) [Mass/Vol] 34.7 g/dL Normal 31.4-36.0 [facility] Comment on above: Performed By: #### 2 671868, 8093034, 8548050, 7109206, 07687114, 3237139 ####[place] [address] MCV (RBC) [Entitic vol] 98.8 fL Normal 80.0-100.0 [facility] Comment on above: Performed By: #### 2 983435, 3056072, 4770113, 8278001, 09361085, 7451849 ####[address] [address] Platelet mean volume (Bld) [Entitic vol] 7.5 fL Normal 6.4-10.8 [facility] Comment on above: Performed By: #### 2 574631, 3623623, 5980242, 6244303, 93783192, 0853319 ####[address] [address] Platelets (Bld) [#/Vol] 199.0 E9/L Normal 150.0-500. 0 [facility] Comment on above: Performed By: #### 2 107664, 1455150, 1522164, 1079005, 42981686, 2815308 ####[address] [address] RBC (Bld) [#/Vol] 4.6 E12/L Normal 4.3-5.9 [facility] Comment on above: Performed By: #### 2 960838, 8005967, 9662671, 5606180, 23022938, 8625600 ####[facility] [address] [place] [address] WBC corrected for nucl RBC Auto (Bld) [#/Vol] 6.0 E9/L Normal 4.0-11.0 [facility] Comment on above: Performed By: #### 2 526984, 9468527, 9794990, 7151007, 98712109, 0939810 ####[facility] [address] [place] [address] CT Abdomen/Pelvis w/ Contras ton 02-02-2022 CT [...] 300 Contrast amount in ml's: 100 Normal [facility] Discharge Instructionson Discharge Instructions [id number]#[id number]:12 7 Normal [facility] ED Clinical Summaryon 2021 ED Clinical Summary (Inserted Image. Jackie ble to display) [place] [id number] ED Clinical Summary Person Information Name: SHIKHA LOERA/[facility] Age: 36 Years : 1985 Sex: Female Language: Togolese PCP: AVERY VILLEGAS CNP Marital Status: Visit [...] 02/02/2022 00:18:27 02/02/2022 00:18:27 02/02/2022 00:18:27 ADDRESS: [address] [place] [address] [place] [id number] [facility] DOC NOTES: MEDICAL INFORMATION: Prescriptions Given: New Medications Printed Prescriptions acetaminophen-hydrocodone ([place]field 325 mg-5 mg oral tablet) 1 Tablets By Mouth every 6 hours as needed for pain. Refills: 0. sulfamethoxazole-trimetho prim (Bactrim DS 800 mg-160 mg Tab) 1 Tablets By Mouth 2 times a day for 10 Days. Refills: 0. PATIENT EDUCATION INFORMATION: Instructions: Pyelonephritis, Adult, Dfef-xx-Guwc Follow up: With: Address: When: AVERY VILLEGAS [address] [facility] [address] [place] [phone] Business (1) In 3 days 02/05/2022 Comments: You can use the pain medication every 6 hours as needed for pain, take the Bactrim twice daily until you have completed the course. Please follow-up with your primary care doctor the next 2 to 3 days. Please return to the ED for any new or worsening symptoms. DIAGNOSIS: Acute pyelonephritis Normal [facility] ED Note-Physicianon 20 22 ED Note-Physician Basic [...] Crohn's disease sees a GI doctor at [facility] who she is unsure of who this [...] home. Is given a short course of [place]field to go home with. She is given [...] hydroxide/Mg hydroxide/simethicone (more content not included)... Normal [facility] Comment on above: Result Comment: Elec tronically [...] you start to feel better. ? Take hdtr-zoy-sqxhzft and prescription medicines only as told by [...] Reviewed: 01/28/2019 Elsevier Patient Education ? 2019 Lingt. Normal [facility] ED Patient Summaryon 022 ED Patient Summary (Inserted Image. Jackie ble to display) [place] [address] Patient Discharge Instructions Person Information Name: SHIKHA LOERA Age: 36 Years Arrival Date: 02/01/2022 21:23:41 Discharge Diagnosis: Acute pyelonephritis Primary Care Physician: AVERY VILLEGAS CNP Provider Information Primary Provider: Judith Mock DO Advanced Building Carpenter Helper:None The exam and treatment you received in the Emergency Department were for an urgent problem and are not intended as complete care. 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 If your symptoms [...] Follow-up Instructions: With: Address: When: AVERY VILLEGAS [address] [place] [address] [address] [place] [phone] [place] (1) In 3 days 02/05/2022 Comments: You [...] participating provider. Patient Education Materials: Pyelonephritis, Adult, Uhdk-jk-Bmwg A MESSAGE TO ALL PATIENTS REGARDING OPIOIDS PRESCRIPTION OPIOIDS: WHAT YOU NEED TO KNOW Prescription opioids can be used to help relieve yvwrqvgr-nz-xqbsmw pain and are often prescribed following a [...] (www.fda.gov/Drugs/Resour cesForYou). (more content not included)... Normal [facility] Hep Func Panelon 02-02-2022 Albumin [Mass/Vol] 4.5 g/dL Normal 3.3-5.0 [facility] Comment on above: Performed By: #### 2 939928, 5171336, 7397865, 3935059, 94960233, 3893613 ####[facility] [address] [place] [address] Albumin/Globulin (S) [Mass conc ratio] 1.1 Normal 1.1-2.2 [facility] Comment on above: Performed By: #### 2 099020, 8450338, 9029110, 7227249, 82505753, 4948444 ####[facility] [address] [place] [address] ALP [Catalytic activity/Vol] 98 Int._Unit/L Normal 21-98 [facility] Comment on above: Performed By: #### 2 948662, 0279153, 1955998, 2991292, 07863374, 0933568 ####[facility] [address] [place] [address] ALT No additional P-5'-P [Catalytic activity/Vol] 57 Int._Unit/L High 6-46 [facility] Comment on above: Performed By: #### 2 394124, 0826127, 2957117, 5207456, 86212530, 3263928 ####[facility] [address] [place] [address] AST [Catalytic activity/Vol] 157 Int._Unit/L High 5-43 [facility] Comment on above: Performed By: #### 2 230415, 6642563, 3288387, 1884712, 03157571, 6405253 ####[facility] [address] [place] [address] Bilirubin [Mass/Vol] 1.4 mg/dL High 0.0-1.1 [facility] Comment on above: Performed By: #### 2 747187, 1209621, 9522164, 3300557, 37275588, 1611875 ####[place] [address] Bilirubin.direct [Mass/Vol] 0.5 mg/dL High 0.1-0.4 [facility] Comment on above: Performed By: #### 2 669227, 7445193, 4180891, 3523588, 71217349, 6401056 ####[place] [address] Bilirubin.indirect [Mass or moles/Vol] 0.9 mg/dL Normal 0.1-0.9 [facility] Comment on above: Performed By: #### 2 782289, 5503247, 9142447, 2542527, 11790778, 7138258 ####[facility] [address] [place] [address] Globulin (S) [Mass/Vol] 4.1 g/dL High 1.4-4.0 [facility] Comment on above: Performed By: #### 2 169651, 1429321, 1884507, 8898469, 53720890, 4131904 ####[facility] [address] [place] [address] Protein [Mass/Vol] 8.6 g/dL High 6.0-7.8 [facility] Comment on above: Performed By: #### 2 852691, 3872635, 7777182, 6535372, 87044936, 5216691 ####[facility] [address] [place] [address] Lipase Levelon 02-02-2022 Lipase [Catalytic activity/Vol] 57 U/L Normal 13-58 [facility] Comment on above: Performed By: #### 2 677295, 4313457, 2096276, 6044824, 07245236, 8495833 ####[facility] [address] [place] [address] Prescriptions/Work Noteson 1 Prescriptions/Work Notes [id number]#[id number]:12 7 Normal [facility] RAD - Preliminary Cat Scan R eporton 02-02-2022 RAD - Preliminary Cat Scan Report [id number]#[id number]:12 7 Normal [facility] UA With Cult Reflexon 2021 Bacteria LM Ql (Urine sed) 2+ /HPF Abnormal Trace [facility] Comment on above: Performed By: #### 2 218384, 84024692 ####[facility] [address] [place] [address] Bilirubin Ql (U) Negative Normal Negative [facility] Comment on above: Performed By: #### 2 347411, 38935522 ####[facility] [address] [place] [address] Clarity (U) SL CLOUDY Invalid Interpretation Code [facility] Comment on above: Performed By: #### 2 092837, 48264555 ####[facility] [address] [place] [address] Color (U) YELLOW Normal Yellow [facility] Comment on above: Performed By: #### 2 468964, 67833305 ####[facility] [address] [place] [address] Epithelial cells.squamous LM.HPF (Urine sed) [#/Area] 3-4 Normal 0-2 [facility] Comment on above: Performed By: #### 2 947783, 39936441 ####[facility] [address] [place] [address] Glucose Test strip (U) [Mass/Vol] Negative Normal Negative [facility] Comment on above: Performed By: #### 2 548947, 10614055 ####[place] [place] [address] Hemoglobin Ql (U) 1+ Abnormal Negative [facility] Comment on above: Performed By: #### 2 920020, 42425122 ####[address] [address] Ketones (U) [Mass/Vol] Negative Normal Negative [facility] Comment on above: Performed By: #### 2 008504, 21703011 ####[address] [address] Hoxie.plasma/Hoxie .RBC (Bld) [Mass ratio] 4-20 Normal 0-3 [facility] Comment on above: Performed By: #### 2 617048, 21863392 ####[facility] [address] [place] [address] Nitrite Ql (U) Negative Normal Negative [facility] Comment on above: Performed By: #### 2 588722, 99726774 ####[facility] [address] [place] [address] pH (U) 5.0 [pH] Invalid Interpretation Code 5.0-9.0 [facility] Comment on above: Performed By: #### 2 933103, 53177897 ####[address] [address] Protein (U) [Mass/Vol] Negative Normal Negative [facility] Comment on above: Performed By: #### 2 400666, 79108955 ####[address] [address] Specific gravity (U) [Rel density] <=1.005 Invalid Interpretation Code 1.005-1.03 0 [facility] Comment on above: Performed By: #### 2 623015, 44181315 ####[facility] [address] [place] [address] Type of Urine collection method Clean Catch Normal [facility] Comment on above: Performed By: #### 2 064520, 00500881 ####[facility] [address] [place] [address] Urobilinogen Qn (U) 0.2 {Ocncetta'U}/dL Normal 0.0-1.0 [facility] Comment on above: Performed By: #### 2 644352, 94806173 ####[facility] [address] [place] [address] WBC Auto Ql (U) 2+ Abnormal Negative [facility] Comment on above: Performed By: #### 2 951892, 32588785 ####[facility] [address] [place] [address] WBC LM.HPF (Urine sed) [#/Area] 26-30 Abnormal 0-5 [facility] Comment on above: Performed By: #### 2 189154, 18189082 ####[facility] [address] [place] [address] US Gallbladderon 02-02-2022 US Gallbladder Exam Date/Time: [...] V. Transcribed by: BENNY Technologist: JENNY Napier [facility] eGFRon 02-02-2022 GFR/1.73 sq M.predicted among blacks MDRD (S/P/Bld) [Vol rate/Area] mL/min/{1.73_m2} Normal >=59 [facility] Comment on above: Order Comment: Order added by Discern Expert. Result Comment: eGFR is race adjusted. AA=. Performed By: #### 2 176862, 7808509, 5846848, 3131088, 45616876, 2517162 ####[facility] [address] [place] [address] GFR/1.73 sq M.predicted among non-blacks MDRD (S/P/Bld) [Vol rate/Area] mL/min/{1.73_m2} Normal >=59 [facility] Comment on above: Order Comment: Order added by Discern Expert. Result Comment: Sales Broker cj kidney disease could be indicated at eGFR's of less than 60 mL/min/1.73m2. Kidney failure is indicated at less than 15 mL/min/1.73m2. Performed By: #### 2 049897, 7104040, 5871159, 9250987, 72961656, 7731132 ####[facility] [address] [place] [address] CHEMISTRYOrdered By: Jorge ruby on 02-01-2022 Albumin [...] rate/Area] mL/min/1.73 m2 Normal >=59mL/min /1.73 m2 [facility] Chem S GFR/1.73 sq M.predicted among non-blacks MDRD (S/P/Bld) [Vol rate/Area] mL/min/1.73 m2 Normal >=59mL/min /1.73 m2 [facility] Chem S Urea nitrogen/Creatinine [Mass ratio] Unable to Calculate Invalid Interpretation Code [facility] Remisol Consent for Treatmenton 01-08 Consent for Treatment [id number]#[id number]:12 7 Normal [facility] HEMATOLOGYOrdered By: SYSTEM SYSTEM on 02-01-2022 Basophils/100 [...] Nom (U) >100,000 cfu/ml Gram Negative [employer] Mother species [facility] SEROLOGYOrdered By: Jorge pop on 02-01-2022 Beta [...] PM) Normal Negative [facility] UA Auto SS Hoxie.plasma/[place]ie .RBC (Bld) [Mass ratio] 4-20 /HPF Normal [...] [facility] UA Auto SS Urobilinogen Qn (U) 0.4071463 {Concetta'U}/dL Normal 0.0 - 1.0 EU/dL [facility] UA Auto SS WBC Auto Ql (U) 2+ *ABN* (02/01/22 11:42 PM) Invalid Interpretation Code Negative [facility] UA Auto SS WBC LM.HPF (Urine sed) [#/Area] 26-30 /HPF Invalid Interpretation Code 0-5/HPF FT UA Auto SS Albumin [Mass/volume] in Ser um or PlasmaOrdered By: Delfino Reese on 01-18-2022 Albumin [Mass/Vol] 3.8 g/dL 3.2-5.5 [facility] C reactive protein [Mass/vol ume] in Serum or PlasmaOrdered By: Delfino Reese on 01-18-2022 CRP [Mass/Vol] 1.9 mg/dL 0.0-1.0 [facility] Creatinine and Glomerular fi ltration rate.predicted panel (S/P/Bld)Ordered By: Delfino Reese on 01-18-2022 Creatinine [Mass/Vol] 0.57 mg/dL 0.44-1.03 [facility] Erythrocyte sedimentation ra te by Photometric methodOrdered By: Delfino Reese on 01-18-2022 ESR Photometric method (Bld) [Velocity] 8 mm/hr 0-19 [facility] Estimated glomerular filtrat ion rate (GFR) non- AmericanOrdered By: Delfino Reese on 01-18-2022 GFR/1.73 sq M.predicted among non-blacks MDRD (S/P/Bld) [Vol rate/Area] > 60 mL/Min [facility] Folate [Mass/volume] in Seru m or PlasmaOrdered By: Delfino Reese on 01-18-2022 Folate [Mass/Vol] 10.4 ng/mL >5.9 [facility] Comment on above: Folate reference ran ge: >5.9 ng/mlThe WHO technical consultation on folate and vitamin z31xshernmpckgw has determined that folate concentrations lessthan 4 ng/ml are considered deficient. Globulin Calc (S) [Mass/Vol] Ordered By: Delfino Reese on 01-18-2022 Globulin (S) [Mass/Vol] 3.2 g/dL [facility] Laboratory - Chemistry and C hemistry - challengeOrdered By: Delfino Reese on 01-18-2022 Cobalamin (Vitamin B12) [Mass/Vol] 588 pg/mL 180-914 [facility] No Panel InformationOrdered By: Delfino Reese on 01-18-2022 Estimated GFR () > 60 mL/Min [facility] Comment on above: GFR estimated refere nce range: According to KDOQI guidelines, <60 ml/min/1.73m2 is sufficient to diagnose a patient with chronic kidney disease. Pharmacy Creatinine Clearance (Chem N/A [facility] Protein [Mass/volume] in Ser um or PlasmaOrdered By: Delfino eRese on 01-18-2022 Protein [Mass/Vol] 7.0 g/dL 6.1-7.9 [facility] Serum or plasma alanine montes otransferase measurement without P-5'-P (enzymatic activiOrdered By: Delfino Reese on 01-18-2022 ALT No additional P-5'-P [Catalytic activity/Vol] 58 U/L 10-60 [facility] Serum or plasma albumin/glob ulin mass ratioOrdered By: Delfino Reese on 01-18-2022 Albumin/Globulin [Mass ratio] 1.2 {ratio} [facility] Serum or plasma alkaline florencio sphatase measurement (enzymatic activity/volume)Ordered By: Delfino Reese on 01-18-2022 ALP [Catalytic activity/Vol] 90 U/L 32-92 [facility] Serum or plasma anion gap de terminationOrdered By: Delfino Reese on 01-18-2022 Anion gap [Moles/Vol] 16.5 mmol/L 6.0-15.0 [facility] Serum or plasma aspartate am inotransferase measurement (enzymatic activity/volume)Ordered By: Delfino Reese on 01-18-2022 AST [Catalytic activity/Vol] 84 U/L 10-42 [facility] Serum or plasma calcium archie urement (mass/volume)Ordered By: Delfino Reese on 01-18-2022 Calcium [Mass/Vol] 9.2 mg/dL 8.2-10.2 [facility] Serum or plasma chloride luz surement (moles/volume)Ordered By: Delfino Reese on 01-18-2022 Chloride [Moles/Vol] 105 mmol/L 95-114 [facility] Serum or plasma glucose archie urement (mass/volume)Ordered By: Delfino Reese on 01-18-2022 Glucose [Mass/Vol] 114 mg/dL 70-100 [facility] Comment on above: ADA recommended refe rence rangeRandom Glucose Reference Range is dependent on time and content of last meal. Glucose of more than 200 mg/dL in a nonstressed, ambulatory subject supports the diagnosis of Diabetes Mellitus. Serum or plasma potassium me asurement (moles/volume)Ordered By: Delfino Reese on 01-18-2022 Potassium [Moles/Vol] 3.5 mmol/L 3.5-5.1 [facility] Serum or plasma sodium measu rement (moles/volume)Ordered By: Delfino Reese on 01-18-2022 Sodium [Moles/Vol] 143 mmol/L 136-146 [facility] Serum or plasma total biliru bin measurement (mass/volume)Ordered By: Delfino Reese on 01-18-2022 Bilirubin [Mass/Vol] 0.8 mg/dL 0.3-1.2 [facility] Serum or plasma total carbon dioxide measurement (moles/volume)Ordered By: Delfino Reese on 01-18-2022 CO2 [Moles/Vol] 25.0 mmol/L 22.0-30.0 [facility] Serum or plasma urea nitroge n measurement (mass/volume)Ordered By: Delfino Reese on 01-18-2022 Urea nitrogen [Mass/Vol] 1 mg/dL 9- [facility] TSH DL <= 0.005 mIU/L QnOrde red By: Delfino Reese on 01-18-2022 TSH Qn 7.46 m[IU]/L 0.45-5.33 [facility] Thyroxine (T4) free [Mass/vo lume] in Serum or PlasmaOrdered By: Delfino Reese on 01-18-2022 Free T4 [Mass/Vol] 0.71 ng/dL 0.61-1.12 [facility] Bacteria identified Anaer cx Nom (Unsp spec)Ordered By: Delfino Reese on 12-26-2021 Anaerobic microbial culture No Anaerobes Isolated 3 Days [facility] ABO and Rh group post transf usion reaction Nom (Bld)Ordered By: Delfino Reese on 12-23-2021 Microscopic observation Gram stain Nom (Unsp spec) [facility] Albumin [Mass/volume] in Cer ebral spinal fluidOrdered By: Delfino Reese on 12-23-2021 Albumin (CSF) [Mass/Vol] 14 mg/dL 11-04 [facility] Albumin [Mass/volume] in Ser um or PlasmaOrdered By: Delfino Reese on 12-23-2021 Albumin [Mass/Vol] 4.2 g/dL 3.8-4.8 [facility] CSF IgG/albumin ratioOrdered By: Delfino Reese on 12-23-2021 IgG/Albumin (CSF) [Mass ratio] 0.10 0.00-0.25 [facility] Cerebrospinal fluid IgG inde xOrdered By: Delfino Reese on 12-23-2021 IgG clearance/Albumin clearance (S+CSF) [Ratio] 0.6 0.0-0.7 [facility] Cerebrospinal fluid glucose measurement (mass/volume)Ordered By: Delfino Reese on 12-23-2021 Glucose (CSF) [Mass/Vol] 87 mg/dL 40-70 [facility] Cerebrospinal fluid post-antonia trifugation appearance determinationOrdered By: Delfino Reese on 12-23-2021 Appearance (Spun CSF) Colorless Colorless [facility] Cerebrospinal fluid sample t ube volume measurementOrdered By: Delfino Reese on 12-23-2021 Specimen volume (CSF) 2.0 mL [facility] Color CSFOrdered By: Delfino Reese on 12-23-2021 Color (CSF) Colorless Colorless [facility] IgG [Mass/volume] in Cerebra l spinal fluidOrdered By: Delfino Reese on 12-23-2021 IgG (CSF) [Mass/Vol] 1.4 mg/dL 0.0-6.7 [facility] IgG [Mass/volume] in Serum o r PlasmaOrdered By: Delfino Reese on 12-23-2021 IgG [Mass/Vol] 708 mg/dL 586-1602 [facility] IgG synthesis rate [Mass/aleksey e] in Serum and CSF by calculationOrdered By: Delfino Reese on 12-23-2021 IgG synthesis rate Calc (S+CSF) [Mass/Time] -1.0 mg/day -9.9 TO +3.3 [facility] Comment on above: Performed at: [facility] [place] [address] [place] [id number] Home Health Attendant: Torsten Vidal PhD, Phone: [phone] Performed at: [facility] [address] [id number] Director: Torsten Vidal PhD, Phone: [phone] Manual cerebrospinal fluid e rythrocytes count (number/volume)Ordered By: Delfino Reese on 12-23-2021 RBC Manual cnt (CSF) [#/Vol] 77 /uL [facility] Comment on above: The reference interv al and other method performance specifications have not been established for this body fluid. The test result must be integrated into the clinical context for interpretation. No Panel InformationOrdered By: Delfino Reese on 12-23-2021 CSF Appearance Clear Clear [facility] CSF Eosinophils N/A [facility] CSF Lymphocytes 1 [facility] Comment on above: The reference interv al and other method performance specifications have not been established for this body fluid. The test result must be integrated into the clinical context for interpretation. CSF Monocytes 1 [facility] Comment on above: The reference interv al and other method performance specifications have not been established for this body fluid. The test result must be integrated into the clinical context for interpretation. CSF Myelin Basic Protein 3.3 ng/mL 0.0-3.7 [facility] Comment on above: Results of this test are labeled for research purposes only by the assay's activated sludge operator. The performance characteristics of this assay have not been established by the activated sludge operator. The result should not be used for treatment or for diagnostic purposes without confirmation of the diagnosis by another medically established diagnostic product or procedure. The performance characteristics were determined by [facility] [employer] [facility]. Performed at: [facility] [id number] Home Health Attendant: Charlie Manriquez MD, Phone: [phone] Results of this test are labeled for research purposes onlyby the assay's activated sludge operator. The performancecharacteristics of this assay have not been established bythe activated sludge operator. The result should not be used fortreatment or for diagnostic purposes without confirmationof the diagnosis by another medically establisheddiagnostic product or procedure. The performancecharacteristics were determined by [facility].Performed at: [facility] [address] [id number] Director: Charlie Manriquez MD, Phone: [phone] CSF Neutrophils N/A [facility] CSF Total Cells Counted 2 [facility] CSF Tube Number Tube number: 1 [facility] Nucleated cells [#/volume] i n Cerebral spinal fluid by Manual countOrdered By: Delfino Reese on 12-23-2021 Nucleated cells Manual cnt (CSF) [#/Vol] 0.002 10*3/uL 0-5 [facility] Protein [Mass/volume] in Cer ebral spinal fluidOrdered By: Delfino Reese on 12-23-2021 Protein (CSF) [Mass/Vol] 23 mg/dL 15-45 [facility] Protein fractions.oligoclona l bands.intrathecal [Presence] in Serum and CSFOrdered By: Delfino Reese on 12-23-2021 Protein fractions.oligoclonal bands.intrathecal Ql (S+CSF) See comment . [facility] Comment on above: Zero (0) oligoclonal [...] Focusing (IEF) and immunoblotting methodology. Performed at: [address] [id number] Home Health Attendant: Torsten Vidal PhD, Phone: [phone] Zero (0) oligoclonal bands were observed in [...] using IsoelectricFocusing (IEF) and immunoblotting methodology.Performed at: [address] [id number] Director: Torsten Vidal PhD, Phone: [phone] Basophils Auto (Bld) [#/Vol] Ordered By: Avery Villegas on 11-25-2021 Basophils (Bld) [#/Vol] 0.0 10*3/uL 0.0-0.2 [facility] Basophils/100 WBC Auto (Bld) Ordered By: Avery Villegas on 11-25-2021 Basophils/100 WBC (Bld) 0.5 % . [facility] Blood hemoglobin measurement (mass/volume)Ordered By: Avery Villegas on 11-25-2021 Hemoglobin (Bld) [Mass/Vol] 15.4 g/dL 11.8-15.4 [facility] Blood leukocytes automated c ount (number/volume)Ordered By: Avery Villegas on 11-25-2021 WBC (Bld) [#/Vol] 5.3 10*3/uL 4.5-11.0 [facility] Blood thiamine measurement ( moles/volume)Ordered By: Avery Villegas on 11-25-2021 Thiamine (Bld) [Moles/Vol] 113.7 nmol/L 66.5-200.0 [facility] Comment on above: This test was develo ped and its performance characteristics determined by [facility]. It has not been cleared or approved by the Food and Drug Administration. Performed at: [address] [id number] Home Health Attendant: Charlie Manriquez MD, Phone: [phone] This test was develo ped and its performance characteristicsdetermined by [facility]. It has not been cleared orapproved by the Food and Drug Administration.Performed at: - [facility] [id number] Director: Charlie Manriquez MD, Phone: [phone] Body fluid albumin measureme nt (mass/volume)Ordered By: Avery Villegas on 11-25-2021 Albumin (Body fld) [Mass/Vol] 4.0 g/dL 3.2-5.5 [facility] Creatinine and Glomerular fi ltration rate.predicted panel (S/P/Bld)Ordered By: Avery Villegas on 11-25-2021 Creatinine [Mass/Vol] 0.67 mg/dL 0.44-1.03 [facility] Eosinophils Auto (Bld) [#/Vo l]Ordered By: Avery Villegas on 11-25-2021 Eosinophils (Bld) [#/Vol] 0.1 10*3/uL 0.0-0.45 [facility] Eosinophils/100 WBC Auto (Bl d)Ordered By: Avery Villegas on 11-25-2021 Eosinophils/100 WBC (Bld) 1.3 % . [facility] Erythrocyte distribution wid th Auto (RBC) [Ratio]Ordered By: Avery Villegas on 11-25-2021 Erythrocyte distribution width (RBC) [Ratio] 13.5 % 11.9-15.3 [facility] Erythrocyte sedimentation ra te by Photometric methodOrdered By: Avery Villegas on 11-25-2021 ESR Photometric method (Bld) [Velocity] 14 mm/hr [facility] Estimated glomerular filtrat ion rate (GFR) non- AmericanOrdered By: Avery Villegas on 11-25-2021 GFR/1.73 sq M.predicted among non-blacks MDRD (S/P/Bld) [Vol rate/Area] > 60 mL/Min [facility] Folate [Mass/volume] in Seru m or PlasmaOrdered By: Avery Villegas on 11-25-2021 Folate [Mass/Vol] 9.2 ng/mL >5.9 [facility] Comment on above: Folate reference ran ge: >5.9 ng/ml The WHO technical consultation on folate and vitamin b12 deficiencies has determined that folate concentrations less than 4 ng/ml are considered deficient. Folate reference ran ge: >5.9 ng/mlThe WHO technical consultation on folate and vitamin [id number] has determined that folate concentrations lessthan 4 ng/ml are considered deficient. Globulin Calc (S) [Mass/Vol] Ordered By: Avery Villegas on 11-25-2021 Globulin (S) [Mass/Vol] 2.9 g/dL [facility] Hematocrit Auto (Bld) [Volum e fraction]Ordered By: Avery Villegas on 11-25-2021 Hematocrit (Bld) [Volume fraction] 45.2 % 34.0-46.4 [facility] - Chemistry and C hemistry - challengeOrdered By: Avery Villegas on 11-25-2021 Cobalamin (Vitamin B12) [Mass/Vol] 421 pg/mL 180-914 [facility] - Hematology and Cell countsOrdered By: Avery Villegas on 11-25-2021 Nucleated RBC/100 WBC (Bld) [Ratio] 0.6 % 0-0.5 [facility] Lymphocytes Auto (Bld) [#/Vo l]Ordered By: Avery Villegas on 11-25-2021 Lymphocytes (Bld) [#/Vol] 0.8 10*3/uL 1.00-4.8 [facility] Lymphocytes/100 WBC Auto (Bl d)Ordered By: Avery Villegas on 11-25-2021 Lymphocytes/100 WBC (Bld) 14.8 % . [facility] MCH Auto (RBC) [Entitic mass ]Ordered By: Avery Villegas on 11-25-2021 MCH (RBC) [Entitic mass] 32.3 pg 24.7-34.3 [facility] MCHC Auto (RBC) [Mass/Vol]Or dered By: Avery Villegas on 11-25-2021 MCHC (RBC) [Mass/Vol] 34.0 g/dL 32.0-35.0 [facility] MCV Auto (RBC) [Entitic vol] Ordered By: Avery Villegas on 11-25-2021 MCV (RBC) [Entitic vol] 95.1 fL 80-100 [facility] Monocytes Auto (Bld) [#/Vol] Ordered By: Avery Villegas on 11-25-2021 Monocytes (Bld) [#/Vol] 0.2 10*3/uL 0.0-0.8 [facility] Monocytes/100 WBC Auto (Bld) Ordered By: Avery Villegas on 11-25-2021 Monocytes/100 WBC (Bld) 3.4 % . [facility] Neutrophils Auto (Bld) [#/Vo l]Ordered By: Avery Villegas on 11-25-2021 Neutrophils (Bld) [#/Vol] 4.2 10*3/uL 1.8-7.7 [facility] Neutrophils/100 WBC Auto (Bl d)Ordered By: Avery Villegas on 11-25-2021 Neutrophils/100 WBC (Bld) 80.0 % . [facility] No Panel InformationOrdered By: Avery Villegas on 11-25-2021 Estimated GFR () > 60 mL/Min [facility] Comment on above: GFR estimated refere nce range: According to KDOQI guidelines, <60 ml/min/1.73m2 is sufficient to diagnose a patient with chronic kidney disease. Pharmacy Creatinine Clearance (Chem N/A [facility] Platelet mean volume Auto (B ld) [Entitic vol]Ordered By: Avery Villegas on 11-25-2021 Platelet mean volume (Bld) [Entitic vol] 9.1 fL 6.3-10.7 [facility] Platelets Auto (Bld) [#/Vol] Ordered By: Avery Villegas on 11-25-2021 Platelets (Bld) [#/Vol] 210 10*3/uL 150-450 [facility] Protein [Mass/volume] in Ser um or PlasmaOrdered By: Avery Villegas on 11-25-2021 Protein [Mass/Vol] 6.9 g/dL 6.1-7.9 [facility] RBC Auto (Bld) [#/Vol]Ordere d By: Avery Villegas on 11-25-2021 RBC (Bld) [#/Vol] 4.75 10*6/uL 3.60-5.00 [facility] Serum or plasma alanine montes otransferase measurement without P-5'-P (enzymatic activiOrdered By: Avery Villegas on 11-25-2021 ALT No additional P-5'-P [Catalytic activity/Vol] 130 U/L 10-60 [facility] Serum or plasma albumin/glob ulin mass ratioOrdered By: Avery Villegas on 11-25-2021 Albumin/Globulin [Mass ratio] 1.4 {ratio} [facility] Serum or plasma alkaline florencio sphatase measurement (enzymatic activity/volume)Ordered By: Avery Villegas on 11-25-2021 ALP [Catalytic activity/Vol] 74 U/L 32-92 [facility] Serum or plasma aspartate am inotransferase measurement (enzymatic activity/volume)Ordered By: Avery Villegas on 11-25-2021 AST [Catalytic activity/Vol] 117 U/L 10-42 [facility] Serum or plasma calcium archie urement (mass/volume)Ordered By: Avery Villegas on 11-25-2021 Calcium [Mass/Vol] 9.6 mg/dL 8.2-10.2 [facility] Serum or plasma chloride luz surement (moles/volume)Ordered By: Avery Villegas on 11-25-2021 Chloride [Moles/Vol] 98 mmol/L 95-114 [facility] Serum or plasma glucose archie urement (mass/volume)Ordered By: Avery Villegas on 11-25-2021 Glucose [Mass/Vol] 121 mg/dL 70-100 [facility] Comment on above: ADA recommended refe rence [...] on 11-25-2021 Potassium [Moles/Vol] 3.6 mmol/L 3.5-5.1 [facility] Serum or plasma sodium measu rement (moles/volume)Ordered By: Avery Villegas on 11-25-2021 Sodium [Moles/Vol] 139 mmol/L 136-146 [facility] Serum or plasma total biliru bin measurement (mass/volume)Ordered By: Avery Villegas on 11-25-2021 Bilirubin [Mass/Vol] 0.8 mg/dL 0.3-1.2 [facility] Serum or plasma total carbon dioxide measurement (moles/volume)Ordered By: Avery Villegas on 11-25-2021 CO2 [Moles/Vol] 28.4 mmol/L 22.0-30.0 [facility] Serum or plasma urea nitroge n measurement (mass/volume)Ordered By: Avery Villegas on 11-25-2021 Urea nitrogen [Mass/Vol] 5 mg/dL 9- [facility] TSH DL <= 0.005 mIU/L QnOrde red By: Avery Villegas on 11-25-2021 TSH Qn 2.02 m[IU]/L 0.45-5.33 [facility] AMYLASEon 11-20-2021 Amylase [Catalytic activity/Vol] 15 U/L Critically low 25-[address] [facility] Comment on above: Performed By: #### L IPA, MADDY, CMP #### [facility] [address] [address] [address] Angela Aguero CBC W MANUAL DIFFon 11-21-19 22 ATYPICAL LYMPH # Normal [facility] Comment on above: Performed By: #### C BCMAN #### [facility] [address] [address] [address] Angela Aguero ATYPICAL LYMPH % Normal [facility] Comment on above: Performed By: #### C BCMAN #### [facility] [address] [address] [address] Angela Aguero BAND # 0.2 103/ul Normal 0.0-0.3 [facility] Comment on above: Performed By: #### C BCMAN #### [facility] [address] [address] [address] Angela Aguero BAND % 3 % Normal 0-5 [facility] Comment on above: Performed By: #### C BCMAN #### [facility] [address] [address] [address] Angela Aguero BASOM # 0.00 103/ul Normal 0.00-0.[address] [facility] Comment on above: Performed By: #### C BCMAN #### [facility] [address] [address] [address] Angela Aguero BASOM % 0.0 % Critically low 0.2-2.0 [facility] Comment on above: Performed By: #### C BCMAN #### [facility] [address] [place] [address] Dr. Angela Aguero BLAST # Normal [facility] Comment on above: Performed By: #### C BCSOLANGE #### [facility] [address] [place] [address] Dr. Angela Aguero BLAST % Normal [facility] Comment on above: Performed By: #### C BCSOLANGE #### [facility] [address] [place] [address] Dr. Angela Aguero CORRECTED WBC Normal 4.0-11.0 [facility] Comment on above: Performed By: #### C KRISHAN #### [facility] [address] [place] [address] Dr. Angela Aguero EOS # 0.00 103/ul Normal 0.00-0.[address] [facility] Comment on above: Performed By: #### C KRISHAN #### [facility] [address] [place] [address] Dr. Angela Aguero EOS% 0.0 % Critically low 0.9-7.0 [facility] Comment on above: Performed By: #### C KRISHAN #### [facility] [address] [place] [address] Dr. Angela Aguero HCT 41.2 % Normal 36.0-48.0 [facility] Comment on above: Performed By: #### C BCSOLANGE #### [facility] [address] [place] [address] Dr. Angela Aguero HGB 14.2 g/dl Normal 12.0-16.0 [facility] Comment on above: Performed By: #### C BCSOLANGE #### [facility] [address] [place] [address] Dr. Angela Aguero LYMPHM # 0.19 103/ul Critically low 1.20-3.80 [facility] Comment on above: Performed By: #### C BCSOLANGE #### [facility] [address] [place] [address] Dr. Angela Aguero LYMPHM% 3.0 % Critically low 20.5-60.0 [facility] Comment on above: Performed By: #### C KRISHAN #### [facility] [address] [place] [address] Dr. Angela Aguero MCH 32.4 pg Normal 26.7-34.0 [facility] Comment on above: Performed By: #### C KRISHAN #### [facility] [address] [place] [address] Dr. Angela Aguero MCHC 34.5 g/dl Normal 29.9-35.[address] [facility] Comment on above: Performed By: #### C KRISHAN #### [facility] [address] [place] [address] Dr. Angela Aguero MCV 94.1 fL Normal 81.0-99.[address] [facility] Comment on above: Performed By: #### C KRISHAN #### [facility] [address] [place] [address] Dr. Angela Aguero METAMYELOCYTE # Normal [facility] Comment on above: Performed By: #### C KRISHAN #### [facility] [address] [place] [address] Dr. Angela Aguero METAMYELOCYTE % Normal [facility] Comment on above: Performed By: #### C KRISHAN #### [facility] [address] [place] [address] Dr. Angela Aguero MONOM# 0.32 103/ul Normal 0.30-0.[address] [facility] Comment on above: Performed By: #### C KRISHAN #### [facility] [address] [place] [address] Dr. Angela Aguero MONOM% 5.0 % Normal 1.7-12.0 [facility] Comment on above: Performed By: #### C KRISHNA #### [facility] [address] [place] [address] Dr. Angela Aguero MPV 10.4 fL Normal 9.5-13.[address] [facility] Comment on above: Performed By: #### C BCSOLANGE #### [facility] [address] [address] [address] Angela Aguero MYELOCYTE # Normal [facility] Comment on above: Performed By: #### C BCMAN #### [facility] [address] [address] [address] Angela Aguero MYELOCYTE % Normal [facility] Comment on above: Performed By: #### C BCSOLANGE #### [facility] [address] [address] [address] Angela Aguero NRBC Normal [facility] Comment on above: Performed By: #### C KRISHAN #### [facility] [address] [address] [address] Angela Aguero PLT 204 103/ul Normal 150-[address] [facility] Comment on above: Performed By: #### C KRISHAN #### [facility] [address] [address] [address] Angela Aguero RBC 4.38 106/ul Normal 4.20-5.[address] [facility] Comment on above: Performed By: #### C KRISHAN #### [facility] [address] [address] [address] Angela Aguero RDW 12.4 % Normal 11.0-15.[address] [facility] Comment on above: Performed By: #### C KRISHAN #### [facility] [address] [address] [address] Angela Aguero SEG # 5.70 103/ul Normal 1.40-6.[address] [facility] Comment on above: Performed By: #### C BCSOLANGE #### [facility] [address] [address] [address] Angela Aguero SEG % 89.0 % Critically high 43.0-75.0 [facility] Comment on above: Performed By: #### C BCSOLANGE #### [facility] [address] [address] [address] Angela Aguero WBC 6.4 103/ul Normal 4.0-11.[address] [facility] Comment on above: Performed By: #### C BCSOLANGE #### [facility] [address] [place] [address] Dr. Angela Aguero CRPon 11-20-2021 CRP [Mass/Vol] mg/L Normal <=1.0 [facility] Comment on above: Performed By: #### L IPA, MADDY, CMP #### [facility] [address] [place] [address] Dr. Angela Aguero LIPASEon 11-20-2021 Lipase [Catalytic activity/Vol] 28.0 U/L Critically low 73.0-393.[address] [facility] Comment on above: Performed By: #### L IPA MADDY, CMP #### [facility] [address] [place] [address] Dr. Angela Aguero PROF 14(COMP METB)on 022 Albumin [Mass/Vol] 3.4 g/dL Normal 3.4-5.0 [facility] Comment on above: Performed By: #### L LUIS MADDY, CMP #### [facility] [address] [place] [address] Dr. Angela Aguero Albumin/Globulin [Mass ratio] 1.0 {ratio} Normal [facility] Comment on above: Performed By: #### L LUIS MADDY, CMP #### [facility] [address] [place] [address] Dr. Angela Aguero ALP [Catalytic activity/Vol] 63 U/L Normal 46-[address] [facility] Comment on above: Performed By: #### L LUIS MADDY, CMP #### [facility] [address] [place] [address] Dr. Angela Aguero ALT [Catalytic activity/Vol] 55 U/L Normal 14-[address] [facility] Comment on above: Performed By: #### L LUIS MADDY, CMP #### [facility] [address] [place] [address] Dr. Angela Aguero Anion gap [Moles/Vol] 13.3 mmol/L Normal [facility] Comment on above: Performed By: #### L IPA MADDY, CMP #### [facility] [address] [place] [address] Dr. Angela Aguero AST [Catalytic activity/Vol] 39 U/L Critically high 15-[address] [facility] Comment on above: Performed By: #### L MADDY SMITH, CMP #### [facility] [address] [address] [address] Angela Aguero Bilirubin [Mass/Vol] 1.1 mg/dL Critically high 0.2-1.[address] [facility] Comment on above: Performed By: #### L MADDY SMITH, CMP #### [facility] [address] [place] [address] Dr. Angela Aguero Calcium [Mass/Vol] 7.9 mg/dL Critically low 8.5-10.1 [facility] Comment on above: Performed By: #### L MADDY SMITH, CMP #### [facility] [address] [place] [address] Dr. Angela Aguero Chloride [Moles/Vol] 103 mmol/L Normal 98-[address] [facility] Comment on above: Performed By: #### L MADDY SMITH, CMP #### [facility] [address] [place] [address] Dr. Angela Aguero CO2 [Moles/Vol] 26.9 mmol/L Normal 21.0-32.0 [facility] Comment on above: Performed By: #### L MADDY SMITH, CMP #### [facility] [address] [place] [address] Dr. Angela Aguero Creatinine [Mass/Vol] 0.81 mg/dL Normal 0.55-1.[address] [facility] Comment on above: Performed By: #### L MADDY SMITH, CMP #### [facility] [address] [place] [address] Dr. Angela Aguero EGFR-AF ANGUILLAN >60 Normal >=60 [facility] Comment on above: Performed By: #### L MADDY SMITH, CMP #### [facility] [address] [place] [address] Dr. Angela Aguero EGFR-NON AF ANGUILLAN >60 Normal >=[address] [facility] Comment on above: Performed By: #### L MADDY SMITH, CMP #### [facility] [address] [address] [address] Angela Aguero Globulin (S) [Mass/Vol] 3.3 g/dL Normal [facility] Comment on above: Performed By: #### L MADDY SMITH, CMP #### [facility] [address] [address] [address] Angela Aguero Glucose [Mass/Vol] 185 mg/dL Critically high 74-106 [facility] Comment on above: Performed By: #### L MADDY SMITH, CMP #### [facility] [address] [address] [address] Angela Aguero Potassium [Moles/Vol] 3.2 mmol/L Critically low 3.5-5.[address] [facility] Comment on above: Performed By: #### L MADDY SMITH, CMP #### [facility] [address] [place] [address] Dr. Angela Aguero Protein [Mass/Vol] 6.7 g/dL Normal 6.4-8.2 [facility] Comment on above: Performed By: #### L MADDY SMITH, CMP #### [facility] [address] [address] [address] Angela Aguero Sodium [Moles/Vol] 140 mmol/L Normal 136-145 [facility] Comment on above: Performed By: #### L MADDY SMITH, CMP #### [facility] [address] [place] [address] Dr. Angela Aguero Urea nitrogen [Mass/Vol] 8.0 mg/dL Normal 7.0-18.[address] [facility] Comment on above: Performed By: #### L MADDY SMITH, CMP #### [facility] [address] [place] [address] Dr. Angela Aguero Urea nitrogen/Creatinine [Mass ratio] 9.9 mg/mg Normal [facility] Comment on above: Performed By: #### L MADDY SMITH, CMP #### [facility] [address] [address] [address] Angela Aguero SED RATE [facility] 2021 SED RATE 3 mm/hr Normal <=20 [facility] Comment on above: Performed By: #### S EDR #### [facility] [address] [place] [address] Dr. Angela Aguero AMYLASEon 11-19-2021 Amylase [Catalytic activity/Vol] 17 U/L Critically low 25-[address] [facility] Comment on above: Performed By: #### C MP, MADDY, CRP, LIPA #### [facility] [address] [place] [address] Dr. Angela Aguero CBC AUTO DIFFon 11-19-2021 BASO # 0.0 103/ul Normal 0.0-0.[address] [facility] Comment on above: Performed By: #### L MADDY SMITH, CMP #### [facility] [address] [place] [address] Dr. Angela Aguero Basophils/100 WBC (Bld) 0.6 % Normal 0.2-2.[address] [facility] Comment on above: Performed By: #### L MADDY SMITH, CMP #### [facility] [address] [place] [address] Dr. Angela Aguero EO # 0.0 103/ul Normal 0.0-0.[address] [facility] Comment on above: Performed By: #### L MADDY SMITH, CMP #### [facility] [address] [place] [address] Dr. Angela Aguero Eosinophils/100 WBC (Bld) 0.0 % Critically low 0.9-7.[address] [facility] Comment on above: Performed By: #### L LUIS MADDY, CMP #### [facility] [address] [place] [address] Dr. Angela Aguero Erythrocyte distribution width (RBC) [Ratio] 12.9 % Normal 11.0-15.[address] [facility] Comment on above: Performed By: #### L MADDY SMITH, CMP #### [facility] [address] [place] [address] Dr. Angela Aguero Hematocrit (Bld) [Volume fraction] 43.3 % Normal 36.0-48.[address] [facility] Comment on above: Performed By: #### L MADDY SMITH, CMP #### [facility] [address] [address] [address] Angela Aguero Hemoglobin (Bld) [Mass/Vol] 14.7 g/dL Normal 12.0-16.0 [facility] Comment on above: Performed By: #### L IPA MADDY, CMP #### [facility] [address] [address] [address] Angela Aguero IG # 0.02 10e3/ul Normal 0.00-0.[address] [facility] Comment on above: Performed By: #### L IPA MADDY, CMP #### [facility] [address] [place] [address] Dr. Angela Aguero IG % 0.6 % Critically high 0.0-0.5 [facility] Comment on above: Performed By: #### L LUIS MADDY, CMP #### [facility] [address] [place] [address] Dr. Angela Aguero LYMPH # 0.3 103/ul Critically low 1.2-3.8 [facility] Comment on above: Performed By: #### L LUIS MADDY, CMP #### [facility] [address] [place] [address] Dr. Angela Aguero Lymphocytes/100 WBC (Bld) 8.9 % Critically low 20.5-60.[address] [facility] Comment on above: Performed By: #### L LUIS MADDY, CMP #### [facility] [address] [place] [address] Dr. Angela Ageuro MANUAL DIFF REQ NO Normal [facility] Comment on above: Performed By: #### L LUIS MADDY, CMP #### [facility] [address] [place] [address] Dr. Angela Aguero MCH (RBC) [Entitic mass] 32.5 pg Normal 26.7-34.[address] [facility] Comment on above: Performed By: #### L IPA MADDY, CMP #### [facility] [address] [place] [address] Dr. Angela Aguero MCHC (RBC) [Mass/Vol] 33.9 g/dL Normal 29.9-35.2 [facility] Comment on above: Performed By: #### L MADDY SMITH, CMP #### [facility] [address] [place] [address] Dr. Angela Aguero MCV (RBC) [Entitic vol] 95.6 fL Normal 81.0-99.[address] [facility] Comment on above: Performed By: #### L MADDY SMITH, CMP #### [facility] [address] [place] [address] Dr. Angela Aguero MONO # 0.0 103/ul Critically low 0.3-0.8 [facility] Comment on above: Performed By: #### L MADDY SMITH, CMP #### [facility] [address] [place] [address] Dr. Angela Aguero Monocytes/100 WBC (Bld) 0.6 % Critically low 1.7-12.0 [facility] Comment on above: Performed By: #### L MADDY SMITH, CMP #### [facility] [address] [place] [address] Dr. Angela Aguero NEUT # 3.1 103/ul Normal 1.4-6.5 [facility] Comment on above: Performed By: #### L MADDY SMITH, CMP #### [facility] [address] [place] [address] Dr. Angela Aguero Neutrophils/100 WBC (Bld) 89.3 % Critically high 43.0-75.0 [facility] Comment on above: Performed By: #### L MADDY SMITH, CMP #### [facility] [address] [place] [address] Dr. Angela Aguero Platelet mean volume (Bld) [Entitic vol] 10.6 fL Normal 9.5-13.5 [facility] Comment on above: Performed By: #### L MADDY SMITH, CMP #### [facility] [address] [place] [address] Dr. Angela Aguero PLT 212 103/ul Normal 150-450 [facility] Comment on above: Performed By: #### L MADDY SMITH, CMP #### [facility] [address] [place] [address] Dr. Angela Aguero RBC 4.53 106/ul Normal 4.20-5.40 [facility] Comment on above: Performed By: #### L IPA MADDY, CMP #### [facility] [address] [place] [address] Dr. Angela Aguero WBC 3.5 103/ul Critically low 4.0-11.0 [facility] Comment on above: Performed By: #### L IPA MADDY, CMP #### [facility] [address] [place] [address] Dr. Angela Aguero CRPon 11-19-2021 CRP [Mass/Vol] mg/L Normal <=1.0 [facility] Comment on above: Performed By: #### C MP, MADDY, CRP, LIPA #### [facility] [address] [place] [address] Dr. Angela Aguero ER URINE PROFILEon 2 Bilirubin Ql (U) Negative Normal NEGATIVE [facility] Comment on above: Performed By: #### L IPA MADDY, CMP #### [facility] [address] [place] [address] Dr. Angela Aguero Clarity (U) CLEAR Normal CLEAR [facility] Comment on above: Performed By: #### L LUIS MADDY, CMP #### [facility] [address] [place] [address] Dr. Angela Aguero Color (U) DK. ORANGE Abnormal YELLOW [facility] Comment on above: Performed By: #### L LUIS MADDY, CMP #### [facility] [address] [place] [address] Dr. Angela Aguero ERUAHD A micrscopic examina tion will be performed if indicated. Normal [facility] Comment on above: Performed By: #### L IPA MADDY, CMP #### [facility] [address] [place] [address] Dr. Angela Aguero Glucose Ql (U) Negative Normal NEGATIVE [facility] Comment on above: Performed By: #### L IPA MADDY, CMP #### [facility] [address] [place] [address] Dr. Angela Aguero Hemoglobin Ql (U) Negative Normal NEGATIVE [facility] Comment on above: Performed By: #### L IPA, MADDY, CMP #### [facility] [address] [place] [address] Dr. Angela Aguero Ketones Ql (U) 40 mg/dl Abnormal NEGATIVE [facility] Comment on above: Performed By: #### L IPA, MADDY, CMP #### [facility] [address] [place] [address] Dr. Angela Aguero LEUKOCYTES Negative Normal NEGATIVE [facility] Comment on above: Performed By: #### L IPA, MADDY, CMP #### [facility] [address] [place] [address] Dr. Angela Aguero Nitrite Ql (U) Negative Normal NEGATIVE [facility] Comment on above: Performed By: #### L IPA, MADDY, CMP #### [facility] [address] [place] [address] Dr. Angela Aguero pH (U) 5.5 [pH] Normal 5-[address] [facility] Comment on above: Performed By: #### L IPA MADDY, CMP #### [facility] [address] [place] [address] Dr. Angela Aguero Protein (U) [Mass/Vol] 30 mg/dL Abnormal NEGAT DARIO/ TRACE [facility] Comment on above: Performed By: #### L IPA MADDY, CMP #### [facility] [address] [place] [address] Dr. Angela Aguero SPEC GRAVITY >=1.030 Abnormal 1.005-<=1. [address] [facility] Comment on above: Performed By: #### L IPA MADDY, CMP #### [facility] [address] [place] [address] Dr. Angela Aguero UR MICRO IND INDICATED Normal [facility] Comment on above: Performed By: #### L IPA MADDY, CMP #### [facility] [address] [place] [address] Dr. Angela Aguero Urobilinogen Qn (U) 1.0 {Concetta'U}/dL Normal 0.2 - 1. [address] [facility] Comment on above: Performed By: #### L IPA, MADDY, CMP #### [facility] [address] [place] [address] Dr. Angela Aguero LIPASEon 11-19-2021 Lipase [Catalytic activity/Vol] 22.0 U/L Critically low 73.0-393.[address] [facility] Comment on above: Performed By: #### C MP, MADDY, CRP, LIPA #### [facility] [address] [place] [address] Dr. Angela Aguero PROF 14(COMP METB)on 022 Albumin [Mass/Vol] 3.7 g/dL Normal 3.4-5.0 [facility] Comment on above: Performed By: #### C MP, MADDY, CRP, LIPA #### [facility] [address] [place] [address] Dr. Angela Aguero Albumin/Globulin [Mass ratio] 1.0 {ratio} Normal [facility] Comment on above: Performed By: #### C MP, MADDY, CRP, LIPA #### [facility] [address] [place] [address] Dr. Angela Aguero ALP [Catalytic activity/Vol] 73 U/L Normal 46-[address] [facility] Comment on above: Performed By: #### C MP, MADDY, CRP, LIPA #### [facility] [address] [place] [address] Dr. Angela Aguero ALT [Catalytic activity/Vol] 78 U/L Critically high 14-[address] [facility] Comment on above: Performed By: #### C MP, MADDY, CRP, LIPA #### [facility] [address] [place] [address] Dr. Angela Aguero Anion gap [Moles/Vol] 16.5 mmol/L Normal [facility] Comment on above: Performed By: #### C MP, MADDY, CRP, LIPA #### [facility] [address] [place] [address] Dr. Angela Aguero AST [Catalytic activity/Vol] 62 U/L Critically high 15-[address] [facility] Comment on above: Performed By: #### C MP, MADDY, CRP, LIPA #### [facility] [address] [place] [address] Dr. Angela Aguero Bilirubin [Mass/Vol] 1.3 mg/dL Critically high 0.2-1.[address] [facility] Comment on above: Performed By: #### C MP, MADDY, CRP, LIPA #### [facility] [address] [place] [address] Dr. Angela Aguero Calcium [Mass/Vol] 8.2 mg/dL Critically low 8.5-10.1 [facility] Comment on above: Performed By: #### C MP, MADDY, CRP, LIPA #### [facility] [address] [place] [address] Dr. Angela Aguero Chloride [Moles/Vol] 101 mmol/L Normal 98-[address] [facility] Comment on above: Performed By: #### C MP, MADDY, CRP, LIPA #### [facility] [address] [place] [address] Dr. Angela Aguero CO2 [Moles/Vol] 23.5 mmol/L Normal 21.0-32.0 [facility] Comment on above: Performed By: #### C MP, MADDY, CRP, LIPA #### [facility] [address] [place] [address] Dr. Angela Aguero Creatinine [Mass/Vol] 0.81 mg/dL Normal 0.55-1.[address] [facility] Comment on above: Performed By: #### C MP, MADDY, CRP, LIPA #### [facility] [address] [place] [address] Dr. Angela Aguero EGFR-AF ANGUILLAN >60 Normal >=60 [facility] Comment on above: Performed By: #### C MP, MADDY, CRP, LIPA #### [facility] [address] [place] [address] Dr. Angela Aguero EGFR-NON AF ANGUILLAN >60 Normal >=[address] [facility] Comment on above: Performed By: #### C MP, MADDY, CRP, LIPA #### [facility] [address] [place] [address] Dr. Angela Aguero Globulin (S) [Mass/Vol] 3.7 g/dL Normal [facility] Comment on above: Performed By: #### C MP, MADDY, CRP, LIPA #### [facility] [address] [address] [address] Angela Aguero Glucose [Mass/Vol] 190 mg/dL Critically high 74-106 [facility] Comment on above: Performed By: #### C MP, MADDY, CRP, LIPA #### [facility] [address] [address] [address] Angela Aguero Potassium [Moles/Vol] 4.0 mmol/L Normal 3.5-5.[address] [facility] Comment on above: Performed By: #### C MP, MADDY, CRP, LIPA #### [facility] [address] [place] [address] Dr. Angela Aguero Protein [Mass/Vol] 7.4 g/dL Normal 6.4-8.2 [facility] Comment on above: Performed By: #### C MP, MADDY, CRP, LIPA #### [facility] [address] [address] [address] Angela Aguero Sodium [Moles/Vol] 137 mmol/L Normal 136-145 [facility] Comment on above: Performed By: #### C MP, MADDY, CRP, LIPA #### [facility] [address] [place] [address] Dr. Angela Aguero Urea nitrogen [Mass/Vol] 5.0 mg/dL Critically low 7.0-18.[address] [facility] Comment on above: Performed By: #### C MP, MADDY, CRP, LIPA #### [facility] [address] [address] [address] Angela Aguero Urea nitrogen/Creatinine [Mass ratio] 6.2 mg/mg Normal [facility] Comment on above: Performed By: #### C MP, MADYD, CRP, LIPA #### [facility] [address] [address] [address] Angela Aguero SED RATE [facility] 2021 SED RATE 10 mm/hr Normal <=20 [facility] Comment on above: Performed By: #### L IPA MADDY, CMP #### [facility] [address] [address] [address] Angela Aguero URINE MICROSCOPIC ONLYon BACTERIA TRACE Abnormal NONE SEEN [facility] Comment on above: Performed By: #### L IPA, MADDY, CMP #### [facility] [address] [address] [address] Angela Aguero Bacteria identified Cx Nom (U) NOT INDICATED Normal [facility] Comment on above: Performed By: #### L IPA, MADDY, CMP #### [facility] [address] [place] [address] Dr. Angela Aguero CAST SEEN Abnormal NONE SEEN [facility] Comment on above: Performed By: #### L IPA MADDY, CMP #### [facility] [address] [place] [address] Dr. Angela Aguero Crystals LM Nom (Urine sed) NONE SEEN Normal NONE SEEN [facility] Comment on above: Performed By: #### L IPA MADDY, CMP #### [facility] [address] [place] [address] Dr. Angela Aguero Epithelial cells LM Ql (Urine sed) RARE Normal NONE SEEN /RARE [facility] Comment on above: Performed By: #### L IPA MADDY, CMP #### [facility] [address] [place] [address] Dr. Angela Aguero FINE GRANULAR CAST RARE Normal [facility] Comment on above: Performed By: #### L IPA MADDY, CMP #### [facility] [address] [place] [address] Dr. Angela Aguero HYALINE CAST RARE Normal [facility] Comment on above: Performed By: #### L IPA MADDY, CMP #### [facility] [address] [place] [address] Dr. Angela Aguero MUCOUS TRACE Abnormal NONE SEEN [facility] Comment on above: Performed By: #### L IPA MADDY, CMP #### [facility] [address] [place] [address] Dr. Angela Aguero RBC NONE SEEN Abnormal 0-2 [facility] Comment on above: Performed By: #### L MADDY SMITH, CMP #### [facility] [address] [place] [address] Dr. Angela Aguero WBC NONE SEEN Normal NONE SEEN [facility] Comment on above: Performed By: #### L LUIS MADDY, CMP #### [facility] [address] [place] [address] Dr. Anglea Aguero AMYLASEon 11-18-2021 Amylase [Catalytic activity/Vol] 20 U/L Critically low 25-115 [facility] Comment on above: Performed By: #### L MADDY SMITH, CMP #### [facility] [address] [place] [address] Dr. Angela Aguero BILIRUBIN CONJUGATED (DIRECT )on 11-18-2021 BILI, CONJUGATED 0.4 mg/dL Critically high 0.0-0.[address] [facility] Comment on above: Performed By: #### L MADDY SMITH, CMP #### [facility] [address] [place] [address] Dr. Angela Aguero CBC AUTO DIFFon 11-18-2021 BASO # 0.1 103/ul Normal 0.0-0.1 [facility] Comment on above: Performed By: #### L MADDY SMITH, CMP #### [facility] [address] [place] [address] Dr. Angela Aguero Basophils/100 WBC (Bld) 2.4 % Critically high 0.2-2.0 [facility] Comment on above: Performed By: #### L LUIS MADDY, CMP #### [facility] [address] [place] [address] Dr. Angela Aguero EO # 0.0 103/ul Normal 0.0-0.7 [facility] Comment on above: Performed By: #### L MADDY SMITH, CMP #### [facility] [address] [place] [address] Dr. Angela Aguero Eosinophils/100 WBC (Bld) 0.2 % Critically low 0.9-7.0 [facility] Comment on above: Performed By: #### L IPA, MADDY, CMP #### [facility] [address] [address] [address] Angela Aguero Erythrocyte distribution width (RBC) [Ratio] 12.8 % Normal 11.0-15.[address] [facility] Comment on above: Performed By: #### L MADDY SMITH, CMP #### [facility] [address] [address] [address] Angela Aguero Hematocrit (Bld) [Volume fraction] 47.4 % Normal 36.0-48.[address] [facility] Comment on above: Performed By: #### L MADDY SMITH, CMP #### [facility] [address] [address] [address] Angela Aguero Hemoglobin (Bld) [Mass/Vol] 16.6 g/dL Critically high 12.0-16.[address] [facility] Comment on above: Performed By: #### L MADDY SMITH, CMP #### [facility] [address] [place] [address] Dr. Angela Aguero IG # 0.02 10e3/ul Normal 0.00-0.[address] [facility] Comment on above: Performed By: #### L MADDY SMITH, CMP #### [facility] [address] [address] [address] Angela Aguero IG % 0.4 % Normal 0.0-0.[address] [facility] Comment on above: Performed By: #### L MADDY SMITH, CMP #### [facility] [address] [address] [address] Angela Aguero LYMPH # 0.9 103/ul Critically low 1.2-3.8 [facility] Comment on above: Performed By: #### L MADDY SMITH, CMP #### [facility] [address] [address] [address] Angela Aguero Lymphocytes/100 WBC (Bld) 17.2 % Critically low 20.5-60.[address] [facility] Comment on above: Performed By: #### L MADDY SMITH, CMP #### [facility] [address] [address] [address] Angela Aguero MANUAL DIFF REQ NO Normal [facility] Comment on above: Performed By: #### L MADDY SMITH, CMP #### [facility] [address] [address] [address] Angela Aguero MCH (RBC) [Entitic mass] 32.4 pg Normal 26.7-34.[address] [facility] Comment on above: Performed By: #### L MADDY SMITH, CMP #### [facility] [address] [place] [address] Dr. Angela Aguero MCHC (RBC) [Mass/Vol] 35.0 g/dL Normal 29.9-35.2 [facility] Comment on above: Performed By: #### L MADDY SMITH, CMP #### [facility] [address] [place] [address] Dr. Angela Aguero MCV (RBC) [Entitic vol] 92.4 fL Normal 81.0-99.[address] [facility] Comment on above: Performed By: #### L MADDY SMITH, CMP #### [facility] [address] [place] [address] Dr. Angela Aguero MONO # 0.6 103/ul Normal 0.3-0.8 [facility] Comment on above: Performed By: #### L MADDY SMITH, CMP #### [facility] [address] [place] [address] Dr. Angela Aguero Monocytes/100 WBC (Bld) 10.7 % Normal 1.7-12.[address] [facility] Comment on above: Performed By: #### L MADDY SMITH, CMP #### [facility] [address] [place] [address] Dr. Angela Aguero NEUT # 3.7 103/ul Normal 1.4-6.5 [facility] Comment on above: Performed By: #### L MADDY SMITH, CMP #### [facility] [address] [place] [address] Dr. Angela Aguero Neutrophils/100 WBC (Bld) 69.1 % Normal 43.0-75.[address] [facility] Comment on above: Performed By: #### L MADDY SMITH, CMP #### [facility] [address] [place], [place] [id number] Dr. Angela Aguero Platelet mean volume (Bld) [Entitic vol] 10.1 fL Normal 9.5-13.5 [facility] Comment on above: Performed By: #### L MADDY SMITH, CMP #### [facility] [address] [place] [address] Dr. Angela Aguero PLT 279 103/ul Normal 150-450 [facility] Comment on above: Performed By: #### L MADDY SMITH, CMP #### [facility] [address] [address] [address] Angela Aguero RBC 5.13 106/ul Normal 4.20-5.40 [facility] Comment on above: Performed By: #### L MADDY SMITH, CMP #### [facility] [address] [place] [address] Dr. Angela Aguero WBC 5.4 103/ul Normal 4.0-11.[address] [facility] Comment on above: Performed By: #### L MADDY SMITH, CMP #### [facility] [address] [place] [address] Dr. Angela Aguero Covid-19 PCR ([facility])on 11-07 SARS-CoV-2 (COVID-19) RNA GOPAL+probe Ql (Unsp spec) Not detected Normal NOT DETECTED [facility] Comment on above: Result Comment: When diagnostic [...] for this test is supported by the [place] of [employer] and Human Service's declaration that [...] By: #### L MADDY SMITH, CMP #### [facility] [address] [place] [address] Dr. Angela Aguero LIPASEon 11-18-2021 Lipase [Catalytic activity/Vol] 25.0 U/L Critically low 73.0-393.[address] [facility] Comment on above: Performed By: #### L MADDY SMITH, CMP #### [facility] [address] [place] [address] Dr. Angela Aguero PROF 14(COMP METB)on 022 Albumin [Mass/Vol] 4.4 g/dL Normal 3.4-5.0 [facility] Comment on above: Performed By: #### L MADDY SMITH, CMP #### [facility] [address] [place] [address] Dr. Angela Aguero Albumin/Globulin [Mass ratio] 1.1 {ratio} Normal [facility] Comment on above: Performed By: #### L MADDY SMITH, CMP #### [facility] [address] [place] [address] Dr. Angela Aguero ALP [Catalytic activity/Vol] 83 U/L Normal 46-[address] [facility] Comment on above: Performed By: #### L MADDY SMITH, CMP #### [facility] [address] [place] [address] Dr. Angela Aguero ALT [Catalytic activity/Vol] 95 U/L Critically high 14-[address] [facility] Comment on above: Performed By: #### L MADDY SMITH, CMP #### [facility] [address] [place] [address] Dr. Angela Aguero Anion gap [Moles/Vol] 20.2 mmol/L Normal [facility] Comment on above: Performed By: #### L MADDY SMITH, CMP #### [facility] [address] [place] [address] Dr. Angela Aguero AST [Catalytic activity/Vol] 84 U/L Critically high 15-[address] [facility] Comment on above: Performed By: #### L MADDY SMITH, CMP #### [facility] [address] [address] [address] Angela Aguero Bilirubin [Mass/Vol] 1.1 mg/dL Critically high 0.2-1.[address] [facility] Comment on above: Performed By: #### L MADDY SMITH, CMP #### [facility] [address] [place] [address] Dr. Angela Aguero Calcium [Mass/Vol] 8.9 mg/dL Normal 8.5-10.1 [facility] Comment on above: Performed By: #### L LUIS MADDY, CMP #### [facility] [address] [address] [address] Angela Aguero Chloride [Moles/Vol] 99 mmol/L Normal 98-[address] [facility] Comment on above: Performed By: #### L MADDY SMITH, CMP #### [facility] [address] [place] [address] Dr. Angela Aguero CO2 [Moles/Vol] 23.3 mmol/L Normal 21.0-32.0 [facility] Comment on above: Performed By: #### L LUIS MADDY, CMP #### [facility] [address] [place] [address] Dr. Angela Aguero Creatinine [Mass/Vol] 0.97 mg/dL Normal 0.55-1.[address] [facility] Comment on above: Performed By: #### L MADDY SMITH, CMP #### [facility] [address] [place] [address] Dr. Angela Aguero EGFR-AF ANGUILLAN >60 Normal >=60 [facility] Comment on above: Performed By: #### L LUIS MADDY, CMP #### [facility] [address] [place] [address] Dr. Angela Aguero EGFR-NON AF ANGUILLAN >60 Normal >=[address] [facility] Comment on above: Performed By: #### L MADDY SMITH, CMP #### [facility] [address] [place] [address] Dr. Angela Aguero Globulin (S) [Mass/Vol] 3.9 g/dL Normal [facility] Comment on above: Performed By: #### L IPA, MADDY, CMP #### [facility] [address] [address] [address] Angela Aguero Glucose [Mass/Vol] 170 mg/dL Critically high 74-106 [facility] Comment on above: Performed By: #### L LUIS MADDY, CMP #### [facility] [address] [address] [address] Angela Aguero Potassium [Moles/Vol] 3.5 mmol/L Normal 3.5-5.[address] [facility] Comment on above: Performed By: #### L IPA MADDY, CMP #### [facility] [address] [address] [address] Angela Aguero Protein [Mass/Vol] 8.3 g/dL Critically high 6.4-8.2 [facility] Comment on above: Performed By: #### L MADDY SMITH, CMP #### [facility] [address] [address] [address] Angela Aguero Sodium [Moles/Vol] 139 mmol/L Normal 136-145 [facility] Comment on above: Performed By: #### L MADDY SMITH, CMP #### [facility] [address] [address] [address] Angela Aguero Urea nitrogen [Mass/Vol] 4.0 mg/dL Critically low 7.0-18.[address] [facility] Comment on above: Performed By: #### L MADDY SMITH, CMP #### [facility] [address] [address] [address] Angela Aguero Urea nitrogen/Creatinine [Mass ratio] 4.1 mg/mg Normal [facility] Comment on above: Performed By: #### L MADDY SMITH, CMP #### [facility] [address] [address] ABD/PELV W CONon [...] steatosis. 3. Small hiatal hernia. Normal [facility] URINE PROFILEon 2 Bilirubin Ql (U) Negative Normal NEGATIVE [facility] Comment on above: Performed By: #### L MADDY SMITH, CMP #### [facility] [address] [place] [address] Dr. Angela Aguero Clarity (U) CLEAR Normal CLEAR [facility] Comment on above: Performed By: #### L MADDY SMITH, CMP #### [facility] [address] [place] [address] Dr. Angela Aguero Color (U) LT. YELLOW Normal YELLOW [facility] Comment on above: Performed By: #### L MADDY SMITH, CMP #### [facility] [address] [place] [address] Dr. Angela Aguero ERUAHD A micrscopic examina tion will be performed if indicated. Normal [facility] Comment on above: Performed By: #### L MADDY SMITH, CMP #### [facility] [address] [place] [address] Dr. Angela Aguero Glucose Ql (U) Negative Normal NEGATIVE [facility] Comment on above: Performed By: #### L MADDY SMITH, CMP #### [facility] [address] [place] [address] Dr. Angela Aguero Hemoglobin Ql (U) Negative Normal NEGATIVE [facility] Comment on above: Performed By: #### L IPA, MADDY, CMP #### [facility] [address] [place] [address] Dr. Angela Aguero Ketones Ql (U) Negative Normal NEGATIVE [facility] Comment on above: Performed By: #### L IPA, MADDY, CMP #### [facility] [address] [place] [address] Dr. Angela Aguero LEUKOCYTES Negative Normal NEGATIVE [facility] Comment on above: Performed By: #### L IPA, MADDY, CMP #### [facility] [address] [place] [address] Dr. Angela Aguero Nitrite Ql (U) Negative Normal NEGATIVE [facility] Comment on above: Performed By: #### L IPA MADDY, CMP #### [facility] [address] [place] [address] Dr. Angela Aguero pH (U) 6.0 [pH] Normal 5-[address] [facility] Comment on above: Performed By: #### L IPA MADDY, CMP #### [facility] [address] [place] [address] Dr. Angela Aguero SPEC GRAVITY <=1.005 Abnormal 1.005-<=1. [address] [facility] Comment on above: Performed By: #### L LUIS MADDY, CMP #### [facility] [address] [place] [address] Dr. Angela Aguero UA PROTEIN Negative Normal NEGATIVE/ TRACE [facility] Comment on above: Performed By: #### L IPA MADDY, CMP #### [facility] [address] [place] [address] Dr. Angela Aguero UR MICRO IND NOT INDICATED Normal [facility] Comment on above: Performed By: #### L IPA MADDY, CMP #### [facility] [address] [place] [address] Dr. Angela Aguero Urobilinogen Qn (U) 0.2 {Concetta'U}/dL Normal 0.2 - 1. [address] [facility] Comment on above: Performed By: #### L IPA MADDY, CMP #### [facility] [address] [place] [address] Dr. Angela Aguero LACTATE/LACTIC ACIDon 2021 Lactate [Moles/Vol] 1.1 mmol/L Normal 0.4-1.9 [facility] Comment on above: Performed By: #### L MADDY SMITH, CMP #### [facility] [address] [place] [address] Dr. Angela Aguero CBC AUTO DIFFon 11-10-2021 BASO # 0.1 103/ul Normal 0.0-0.[address] [facility] Comment on above: Performed By: #### L MADDY SMITH, CMP #### [facility] [address] [place] [address] Dr. Angela Aguero Basophils/100 WBC (Bld) 1.7 % Normal 0.2-2.[address] [facility] Comment on above: Performed By: #### L MADDY SMITH, CMP #### [facility] [address] [place] [address] Dr. Angela Aguero EO # 0.1 103/ul Normal 0.0-0.[address] [facility] Comment on above: Performed By: #### L MADDY SMITH, CMP #### [facility] [address] [place] [address] Dr. Angela Aguero Eosinophils/100 WBC (Bld) 1.0 % Normal 0.9-7.[address] [facility] Comment on above: Performed By: #### L MADDY SMITH, CMP #### [facility] [address] [place] [address] Dr. Angela Aguero Erythrocyte distribution width (RBC) [Ratio] 13.1 % Normal 11.0-15.[address] [facility] Comment on above: Performed By: #### L MADDY SMITH, CMP #### [facility] [address] [place] [address] Dr. Angela Aguero Hematocrit (Bld) [Volume fraction] 46.8 % Normal 36.0-48.[address] [facility] Comment on above: Performed By: #### L MADDY SMITH, CMP #### [facility] [address] [address] [address] Angela Aguero Hemoglobin (Bld) [Mass/Vol] 16.3 g/dL Critically high 12.0-16.[address] [facility] Comment on above: Performed By: #### L MADDY SMITH, CMP #### [facility] [address] [address] [address] Angela Aguero IG # 0.02 10e3/ul Normal 0.00-0.03 [facility] Comment on above: Performed By: #### L MADDY SMITH, CMP #### [facility] [address] [place] [address] Dr. Angela Aguero IG % 0.3 % Normal 0.0-0.[address] [facility] Comment on above: Performed By: #### L MADDY SMITH, CMP #### [facility] [address] [place] [address] Dr. Angela Aguero LYMPH # 1.3 103/ul Normal 1.2-3.8 [facility] Comment on above: Performed By: #### L MADDY SMITH, CMP #### [facility] [address] [place] [address] Dr. Angela Aguero Lymphocytes/100 WBC (Bld) 20.9 % Normal 20.5-60.[address] [facility] Comment on above: Performed By: #### L MADDY SMITH, CMP #### [facility] [address] [place] [address] Dr. Angela Aguero MANUAL DIFF REQ NO Normal [facility] Comment on above: Performed By: #### L MADDY SMITH, CMP #### [facility] [address] [place] [address] Dr. Angela Aguero MCH (RBC) [Entitic mass] 32.2 pg Normal 26.7-34.0 [facility] Comment on above: Performed By: #### L MADDY SMITH, CMP #### [facility] [address] [place] [address] Dr. Angela Aguero MCHC (RBC) [Mass/Vol] 34.8 g/dL Normal 29.9-35.2 [facility] Comment on above: Performed By: #### L IPA, MADDY, CMP #### [facility] [address] [place] [address] Dr. Angela Aguero MCV (RBC) [Entitic vol] 92.5 fL Normal 81.0-99.[address] [facility] Comment on above: Performed By: #### L IPA, MADDY, CMP #### [facility] [address] [place] [address] Dr. Angela Aguero MONO # 0.6 103/ul Normal 0.3-0.[address] [facility] Comment on above: Performed By: #### L IPA, MADDY, CMP #### [facility] [address] [place] [address] Dr. Angela Aguero Monocytes/100 WBC (Bld) 10.7 % Normal 1.7-12.[address] [facility] Comment on above: Performed By: #### L IPA MADDY, CMP #### [facility] [address] [place] [address] Dr. Angela Aguero NEUT # 3.9 103/ul Normal 1.4-6.[address] [facility] Comment on above: Performed By: #### L IPA MADDY, CMP #### [facility] [address] [place] [address] Dr. Angela Aguero Neutrophils/100 WBC (Bld) 65.4 % Normal 43.0-75.[address] [facility] Comment on above: Performed By: #### L IPA MADDY, CMP #### [facility] [address] [place] [address] Dr. Angela Aguero Platelet mean volume (Bld) [Entitic vol] 9.6 fL Normal 9.5-13.5 [facility] Comment on above: Performed By: #### L IPA, MADDY, CMP #### [facility] [address] [place] [address] Dr. Angela Aguero PLT 224 103/ul Normal 150-450 [facility] Comment on above: Performed By: #### L IPA, MADDY, CMP #### [facility] [address] [place] [address] Dr. Angela Aguero RBC 5.06 106/ul Normal 4.20-5.[address] [facility] Comment on above: Performed By: #### L MADDY SMITH, CMP #### [facility] [address] [place] [address] Dr. Angela Aguero WBC 6.0 103/ul Normal 4.0-11.[address] [facility] Comment on above: Performed By: #### L MADDY SMITH, CMP #### [facility] [address] [address] [address] Angela Aguero LACTATE/LACTIC ACIDon 2021 Lactate [Moles/Vol] 3.7 mmol/L Critically high 0.4-1.[address] [facility] Comment on above: Performed By: #### L MADDY SMITH, CMP #### [facility] [address] [place] [address] Dr. Angela Aguero LIPASEon 11-10-2021 Lipase [Catalytic activity/Vol] 33.0 U/L Critically low 73.0-393.[address] [facility] Comment on above: Performed By: #### L MADDY SMITH, CMP #### [facility] [address] [place] [address] Dr. Angela Aguero PREG HCG QUALon 11-10-2021 , QUAL Negative Normal NEGATIVE [facility] Comment on above: Performed By: #### P REG #### [facility] [address] [place] [address] Dr. Angela Aguero PROF 14(COMP METB)on 022 Albumin [Mass/Vol] 4.5 g/dL Normal 3.4-5.0 [facility] Comment on above: Performed By: #### L MADDY SMITH, CMP #### [facility] [address] [place] [address] Dr. Angela Aguero Albumin/Globulin [Mass ratio] 1.1 {ratio} Normal [facility] Comment on above: Performed By: #### L MADDY SMITH, CMP #### [facility] [address] [place] [address] Dr. Angela Aguero ALP [Catalytic activity/Vol] 112 U/L Normal 46-116 [facility] Comment on above: Performed By: #### L IPA MADDY, CMP #### [facility] [address] [address] [address] Angela Aguero ALT [Catalytic activity/Vol] 154 U/L Critically high 14-[address] [facility] Comment on above: Performed By: #### L IPA, MADDY, CMP #### [facility] [address] [address] [address] Angela Aguero Anion gap [Moles/Vol] 17.8 mmol/L Normal [facility] Comment on above: Performed By: #### L IPA MADDY, CMP #### [facility] [address] [address] [address] Angela Aguero AST [Catalytic activity/Vol] 112 U/L Critically high 15-[address] [facility] Comment on above: Performed By: #### L LUIS MADDY, CMP #### [facility] [address] [address] [address] Angela Aguero Bilirubin [Mass/Vol] 0.7 mg/dL Normal 0.2-1.[address] [facility] Comment on above: Performed By: #### L LUIS MADDY, CMP #### [facility] [address] [address] [address] Angela Aguero Calcium [Mass/Vol] 9.7 mg/dL Normal 8.5-10.1 [facility] Comment on above: Performed By: #### L LUIS MADDY, CMP #### [facility] [address] [address] [address] Angela Aguero Chloride [Moles/Vol] 102 mmol/L Normal 98-[address] [facility] Comment on above: Performed By: #### L IPA MADDY, CMP #### [facility] [address] [address] [address] Angela Aguero CO2 [Moles/Vol] 26.6 mmol/L Normal 21.0-32.0 [facility] Comment on above: Performed By: #### L IPA MADDY, CMP #### [facility] [address] [address] [address] Angela Aguero Creatinine [Mass/Vol] 1.00 mg/dL Normal 0.55-1.[address] [facility] Comment on above: Performed By: #### L MADDY SMITH, CMP #### [facility] [address] [place] [address] Dr. Angela Aguero EGFR-AF ANGUILLAN >60 Normal >=60 [facility] Comment on above: Performed By: #### L IPA MADDY, CMP #### [facility] [address] [place] [address] Dr. Angela Aguero EGFR-NON AF ANGUILLAN >60 Normal >=[address] [facility] Comment on above: Performed By: #### L IPA MADDY, CMP #### [facility] [address] [place] [address] Dr. Angela Aguero Globulin (S) [Mass/Vol] 4.1 g/dL Normal [facility] Comment on above: Performed By: #### L LUIS MADDY, CMP #### [facility] [address] [place] [address] Dr. Angela Aguero Glucose [Mass/Vol] 170 mg/dL Critically high 74-106 [facility] Comment on above: Performed By: #### L MADDY SMITH, CMP #### [facility] [address] [place] [address] Dr. Angela Aguero Potassium [Moles/Vol] 3.4 mmol/L Critically low 3.5-5.[address] [facility] Comment on above: Performed By: #### L LUIS MADDY, CMP #### [facility] [address] [place] [address] Dr. Angela Aguero Protein [Mass/Vol] 8.6 g/dL Critically high 6.4-8.2 [facility] Comment on above: Performed By: #### L LUIS MADDY, CMP #### [facility] [address] [place] [address] Dr. Angela Aguero Sodium [Moles/Vol] 143 mmol/L Normal 136-145 [facility] Comment on above: Performed By: #### L LUIS MADDY, CMP #### [facility] [address] [place] [address] Dr. Angela Aguero Urea nitrogen [Mass/Vol] 4.0 mg/dL Critically low 7.0-18.[address] [facility] Comment on above: Performed By: #### L MADDY SMITH, CMP #### [facility] [address] [place] [address] Dr. Angela Aguero Urea nitrogen/Creatinine [Mass ratio] 4.0 mg/mg Normal [facility] Comment on above: Performed By: #### L MADDY SMITH, CMP #### [facility] [address] [place] [address] Dr. Angela Aguero PROTIMEon 11-10-2021 INR Coag (PPP) [Relative time] 1.13 {INR} Normal [facility] Comment on above: Performed By: #### L MADDY SMITH, CMP #### [facility] [address] [place] [address] Dr. Angela Aguero INR GUIDELINES SEE BELOW Normal [facility] Comment on above: Result Comment: VARSHA RED INR: 2.0 - 3.0 CONDITIONS NOT LISTED BELOW 2.5 - 3.5 FOR PROSTHETIC HEART VALVE REPLACEMENT 2.5 - 3.5 RECURRENT THROMBOSIS Performed By: #### L MADDY SMITH, CMP #### [facility] [address] [place] [address] Dr. Angela Aguero PT Coag (PPP) [Time] 12.1 s Critically high 9.0-11.[address] [facility] Comment on above: Performed By: #### L MADDY SMITH CMP #### [facility] [address] [place] [address] Dr. Angela Aguero PTTon 11-10-2021 aPTT Coag (Bld) [Time] 30.2 s Normal 22.3-36.2 [facility] Comment on above: Performed By: #### L MADDY SMITH, CMP #### [facility] [address] [place] [address] Dr. Angela Aguero Automated epithelial cells c ount in urine sediment (number/area)Ordered By: Hal Orozco on 11-06-2021 Epithelial cells Auto (Urine sed) [#/Area] 10-19 [HPF] 0-2 [facility] Automated erythrocytes count in urine sediment (number/area)Ordered By: Hal Orozco on 11-06-2021 RBC Auto (Urine sed) [#/Area] 0-1 [HPF] 0-4 [facility] Automated leukocytes count i n urine sediment (number/area)Ordered By: Hal Orozco on 11-06-2021 WBC Auto (Urine sed) [#/Area] 1-2 [HPF] 0-4 [facility] Basophils Auto (Bld) [#/Vol] Ordered By: Hal Orozco on 11-06-2021 Basophils (Bld) [#/Vol] 0.0 10*3/uL 0.0-0.2 [facility] Basophils/100 WBC Auto (Bld) Ordered By: Hal Orozco on 11-06-2021 Basophils/100 WBC (Bld) 0.3 % . [facility] Bilirubin Auto test strip Ql (U)Ordered By: Hal Orozco on 11-06-2021 Bilirubin Ql (U) 1+ Negative [facility] Blood hemoglobin measurement (mass/volume)Ordered By: Hal Orozco on 11-06-2021 Hemoglobin (Bld) [Mass/Vol] 15.7 g/dL 11.8-15.4 [facility] Blood leukocytes automated c ount (number/volume)Ordered By: Hal Orozco on 11-06-2021 WBC (Bld) [#/Vol] 9.8 10*3/uL 4.5-11.0 [facility] Body fluid albumin measureme nt (mass/volume)Ordered By: Hal Orozco on 11-06-2021 Albumin (Body fld) [Mass/Vol] 4.7 g/dL 3.2-5.5 [facility] Creatinine and Glomerular fi ltration rate.predicted panel (S/P/Bld)Ordered By: Hal Orozco on 11-06-2021 Creatinine [Mass/Vol] 0.99 mg/dL 0.44-1.03 [facility] Direct bilirubin measurement Ordered By: Hal Orozco on 11-06-2021 Bilirubin.direct [Mass/Vol] 0.3 mg/dL 0.0-0.4 [facility] Eosinophils Auto (Bld) [#/Vo l]Ordered By: Hal Orozco on 11-06-2021 Eosinophils (Bld) [#/Vol] 0.0 10*3/uL 0.0-0.45 [facility] Eosinophils/100 WBC Auto (Bl d)Ordered By: Hal Orozco on 11-06-2021 Eosinophils/100 WBC (Bld) 0.0 % . [facility] Erythrocyte distribution wid th Auto (RBC) [Ratio]Ordered By: Hal Orozco on 11-06-2021 Erythrocyte distribution width (RBC) [Ratio] 14.3 % 11.9-15.3 [facility] Estimated glomerular filtrat ion rate (GFR) non- AmericanOrdered By: Hal Orozco on 11-06-2021 GFR/1.73 sq M.predicted among non-blacks MDRD (S/P/Bld) [Vol rate/Area] > 60 mL/Min [facility] Globulin Calc (S) [Mass/Vol] Ordered By: Hal Orozco on 11-06-2021 Globulin (S) [Mass/Vol] 3.4 g/dL [facility] HCG ( test) IA.rapi d Ql (U)Ordered By: Hal Orozco on 11-06-2021 HCG ( test) Ql (U) Negative [facility] Hematocrit Auto (Bld) [Volum e fraction]Ordered By: Hal Orozco on 11-06-2021 Hematocrit (Bld) [Volume fraction] 45.7 % 34.0-46.4 [facility] Ketones Auto test strip (U) [Mass/Vol]Ordered By: Hal Orozco on 11-06-2021 Ketones (U) [Mass/Vol] 1+ Negative [facility] - Chemistry and C hemistry - challengeOrdered By: Hal Orozco on 11-06-2021 Lipase [Catalytic activity/Vol] 18.0 U/L 22-51 [facility] - Hematology and Cell countsOrdered By: Hal Orozco on 11-06-2021 Nucleated RBC/100 WBC (Bld) [Ratio] 0.1 % 0-0.5 [facility] Lymphocytes Auto (Bld) [#/Vo l]Ordered By: Hal Orozco on 11-06-2021 Lymphocytes (Bld) [#/Vol] 0.4 10*3/uL 1.00-4.8 [facility] Lymphocytes/100 WBC Auto (Bl d)Ordered By: Hal Orozco on 11-06-2021 Lymphocytes/100 WBC (Bld) 3.8 % . [facility] MCH Auto (RBC) [Entitic mass ]Ordered By: Hal Orozco on 11-06-2021 MCH (RBC) [Entitic mass] 32.4 pg 24.7-34.3 [facility] MCHC Auto (RBC) [Mass/Vol]Or dered By: Hal Orozco on 11-06-2021 MCHC (RBC) [Mass/Vol] 34.4 g/dL 32.0-35.0 [facility] MCV Auto (RBC) [Entitic vol] Ordered By: Hal Orozco on 11-06-2021 MCV (RBC) [Entitic vol] 94.2 fL 80-100 [facility] Monocytes Auto (Bld) [#/Vol] Ordered By: Hal Orozco on 11-06-2021 Monocytes (Bld) [#/Vol] 0.3 10*3/uL 0.0-0.8 [facility] Monocytes/100 WBC Auto (Bld) Ordered By: Hal Orozco on 11-06-2021 Monocytes/100 WBC (Bld) 2.9 % . [facility] Mucus LM Ql (Urine sed)Order ed By: Hal Orozco on 11-06-2021 Mucus Ql (Urine sed) 2+ [LPF] [facility] Neutrophils Auto (Bld) [#/Vo l]Ordered By: Hal Orozco on 11-06-2021 Neutrophils (Bld) [#/Vol] 9.1 10*3/uL 1.8-7.7 [facility] Neutrophils/100 WBC Auto (Bl d)Ordered By: Hal Orozco on 11-06-2021 Neutrophils/100 WBC (Bld) 93.0 % . [facility] No Panel InformationOrdered By: Hal Orozco on 11-06-2021 Estimated GFR () > 60 mL/Min [facility] Comment on above: GFR estimated refere nce range: According to KDOQI guidelines, <60 ml/min/1.73m2 is sufficient to diagnose a patient with chronic kidney disease. Pharmacy Creatinine Clearance (Chem 72.84 [facility] Platelet mean volume Auto (B ld) [Entitic vol]Ordered By: Hal Orozco on 11-06-2021 Platelet mean volume (Bld) [Entitic vol] 7.5 fL 6.3-10.7 [facility] Platelets Auto (Bld) [#/Vol] Ordered By: Hal Orozco on 11-06-2021 Platelets (Bld) [#/Vol] 270 10*3/uL 150-450 [facility] Protein Auto test strip (U) [Mass/Vol]Ordered By: Hal Orozco on 11-06-2021 Protein (U) [Mass/Vol] 30 mg/dL Negative [facility] Protein [Mass/volume] in Ser um or PlasmaOrdered By: Hal Orozco on 11-06-2021 Protein [Mass/Vol] 8.1 g/dL 6.1-7.9 [facility] RBC Auto (Bld) [#/Vol]Ordere d By: Hal Orozco on 11-06-2021 RBC (Bld) [#/Vol] 4.85 10*6/uL 3.60-5.00 [facility] Serum or plasma alanine montes otransferase measurement without P-5'-P (enzymatic activiOrdered By: aHl Orozco on 11-06-2021 ALT No additional P-5'-P [Catalytic activity/Vol] 64 U/L 10-60 [facility] Serum or plasma albumin/glob ulin mass ratioOrdered By: Hal Orozco on 11-06-2021 Albumin/Globulin [Mass ratio] 1.4 {ratio} [facility] Serum or plasma alkaline florencio sphatase measurement (enzymatic activity/volume)Ordered By: Hal Orozco on 11-06-2021 ALP [Catalytic activity/Vol] 75 U/L 32-92 [facility] Serum or plasma aspartate am inotransferase measurement (enzymatic activity/volume)Ordered By: Hal Orozco on 11-06-2021 AST [Catalytic activity/Vol] 101 U/L 10-42 [facility] Serum or plasma calcium archie urement (mass/volume)Ordered By: Hal Orozco on 11-06-2021 Calcium [Mass/Vol] 9.3 mg/dL 8.2-10.2 [facility] Serum or plasma chloride luz surement (moles/volume)Ordered By: Hal Orozco on 11-06-2021 Chloride [Moles/Vol] 101 mmol/L 95-114 [facility] Serum or plasma glucose archie urement (mass/volume)Ordered By: Hal Orozco on 11-06-2021 Glucose [Mass/Vol] 205 mg/dL 70-100 [facility] Comment on above: ADA recommended refe rence [...] Orozco on 11-06-2021 Bilirubin.indirect [Mass/Vol] 1.0 mg/dL [facility] Serum or plasma potassium me asurement (moles/volume)Ordered By: Hal Orozco on 11-06-2021 Potassium [Moles/Vol] 3.8 mmol/L 3.5-5.1 [facility] Serum or plasma sodium measu rement (moles/volume)Ordered By: Hal Orozco on 11-06-2021 Sodium [Moles/Vol] 142 mmol/L 136-146 [facility] Serum or plasma total biliru bin measurement (mass/volume)Ordered By: Hal Orozco on 11-06-2021 Bilirubin [Mass/Vol] 1.3 mg/dL 0.3-1.2 [facility] Comment on above: Samples from patient s who have taken Naproxen have shown spurious elevation in Total Bilirubin levels. A metabolite of Naproxen, O-desmethylnaproxen, has been shown to interfere with the Katya-Rosey method for measuring Total Bilirubin. Serum or plasma total carbon dioxide measurement (moles/volume)Ordered By: Hal Orozco on 11-06-2021 CO2 [Moles/Vol] 21.6 mmol/L 22.0-30.0 [facility] Serum or plasma urea nitroge n measurement (mass/volume)Ordered By: Hal Orozco on 11-06-2021 Urea nitrogen [Mass/Vol] 4 mg/dL 9- [facility] Urine appearanceOrdered By: Hal Orozco on 11-06-2021 Appearance (U) Clear Clear [facility] Urine bacteria detection by automated methodOrdered By: Hal Orozco on 11-06-2021 Bacteria Auto Ql (U) 1+ None Seen [facility] Urine colorOrdered By: Jimbo Orozco on 11-06-2021 Color (U) Yellow Yellow [facility] Urine glucose measurement by automated test strip (mass/volume)Ordered By: Hal Orozco on 11-06-2021 Glucose Auto test strip (U) [Mass/Vol] Normal mg/dL Normal [facility] Urine hemoglobin detection b y automated test stripOrdered By: Hal Orozco on 11-06-2021 Hemoglobin Auto test strip Ql (U) Negative Negative [facility] Urine leukocyte esterase det ection by automated test stripOrdered By: Hal Orozco on 11-06-2021 Leukocyte esterase Auto test strip Ql (U) Negative Negative [facility] Urine nitrite detection by a utomated test stripOrdered By: Hal Orozco on 11-06-2021 Nitrite Auto test strip Ql (U) Negative Negative [facility] Urobilinogen Auto test strip (U) [Mass/Vol]Ordered By: Hal Orozco on 11-06-2021 Urobilinogen (U) [Mass/Vol] mg/dL Normal [facility] pH Auto test strip (U)Ordere d By: Hal Orozco on 11-06-2021 pH (U) 1.025 [pH] 1.001-1.03 0 [facility] pH (U) 6.5 [pH] 5.0-9.0 [facility] Vital Signs Date Time Vital Sign Value Performing Clinician Facility 06-14-2023 14:27-0500 Body height 167.64 cm YARD INSPECTORHarsha Villegas Work Phone: [facility] 06-14-2023 14:27-0500 Body mass index (BMI) [Ratio] 22 kg/m2 CATIA Villegas Work Phone: [facility] 06-14-2023 14:27-0500 Body weight 61.91 kg CATIA Villegas Work Phone: [facility] 06-14-2023 14:27-0500 Diastolic blood pressure 85 mm[Hg] CATIA Villegas Work Phone: [facility] 06-14-2023 14:27-0500 Heart rate 94 /min CATIA Villegas Work Phone: [facility] 06-14-2023 14:27-0500 Respiratory rate 18 /min CATIA Villegas Work Phone: [facility] 06-14-2023 14:27-0500 SaO2% (BldA) [Mass fraction] 100 % ACTIA Villegas Work Phone: [facility] 06-14-2023 14:27-0500 Systolic blood pressure 132 mm[Hg] CATIA Villegas Work Phone: [facility] 03-27-2023 10:45-0500 Body height 167.64 cm Becky Urielly Other [facility] 03-27-2023 10:45-0500 Body mass index (BMI) [Ratio] 21.93 kg/m2 Becky Scally Other [employer] Other 03-27-2023 10:45-0500 Body weight 61.64 kg Becky Scally Other [facility] 03-27-2023 10:45-0500 Diastolic blood pressure 80 mm[Hg] Becky Scally Other [facility] 03-27-2023 10:45-0500 Respiratory rate 16 /min Becky Scally Other [facility] [employer] Other 03-27-2023 10:45-0500 SaO2% (BldA) [Mass fraction] 100 % Becky Scally Other [facility] [employer] Other 03-27-2023 10:45-0500 Systolic blood pressure 125 mm[Hg] Becky Scally Other [facility] 02-01-2022 23:07-0400 Diastolic blood pressure 103 mm[Hg] Kaylinn Dokken [facility] 02-01-2022 23:07-0400 Heart rate 67 /min Kaylinn Dokken [facility] 02-01-2022 23:07-0400 Respiratory rate 15 /min Kaylinn Dokken [facility] 02-01-2022 23:07-0400 SaO2% (BldA) [Mass fraction] 97 % Kaylinn Dokken [facility] 02-01-2022 23:07-0400 Systolic blood pressure 164 mm[Hg] Kaylinn Dokken [facility] 02-01-2022 21:27-0400 Body temperature 98.24 [degF] Kaylinn Dokken [facility] 02-01-2022 21:27-0400 Diastolic blood pressure 120 mm[Hg] Kaylinn Dokken [facility] 02-01-2022 21:27-0400 Heart rate 111 /min Kaylinn Dokken [facility] 02-01-2022 21:27-0400 Respiratory rate 20 /min Judith Mock [facility] 02-01-2022 21:27-0400 SaO2% (BldA) [Mass fraction] 98 % Judith Mock [facility] 02-01-2022 21:27-0400 Systolic blood pressure 196 mm[Hg] Judith Mock [facility] 12-28-2021 08:56-0400 Body height 167.64 cm Services [employer] [facility] Work Phone: [facility] 12-28-2021 08:56-0400 Body weight 71.66 kg [facility] Work Phone: [facility] 12-23-2021 09:40-0400 Diastolic blood pressure 87 mm[Hg] [facility] Work Phone: [facility] 12-23-2021 09:40-0400 Heart rate 88 /min [facility] Work Phone: [facility] 12-23-2021 09:40-0400 Respiratory rate 18 /min Services [employer] [facility] Work Phone: [facility] 12-23-2021 09:40-0400 SaO2% (BldA) [Mass fraction] 100 % [facility] Work Phone: [facility] 12-23-2021 09:40-0400 Systolic blood pressure 140 mm[Hg] [facility] Work Phone: [facility] 12-23-2021 07:44-0400 Body height 167.64 cm Services [employer] [facility] Work Phone: [facility] 12-23-2021 07:44-0400 Body weight 68.03 kg Services [employer] [facility] Work Phone: [facility] 11-06-2021 14:00-0400 Diastolic blood pressure 82 mm[Hg] [facility] Work Phone: [facility] 11-06-2021 14:00-0400 Heart rate 102 /min [facility] Work Phone[facility] 11-06-2021 14:00-0400 Respiratory rate 20 /min [facility] Work Phone: [facility] 11-06-2021 14:00-0400 SaO2% (BldA) [Mass fraction] 97 % [facility] Work Phone: [facility] 11-06-2021 14:00-0400 Systolic blood pressure 123 mm[Hg] [facility] Work Phone: [facility] 11-06-2021 00:00-0400 Body height 167.64 cm [facility] Work Phone: [facility] 11-06-2021 00:00-0400 Body weight 70.3 kg [facility] Work Phone: [facility] 11-05-2021 23:51-0400 Body temperature 98 [degF] [facility] Work Phone: [facility] Encounters Encounter Date Encounter Type Care Provider Facility Start: 08-14-2023 End: 08-14-2023 [facility] Start: 08-14-2023 End: 08-14-2023 ambulatory CATIA Villegas Work Phone: [facility] Work Phone: Start: 08-14-2023 End: 08-14-2023 Departed Referred CATIA Villegas Work Phone: [facility] Start: 06-14-2023 End: 06-14-2023 Patient encounter procedure CATIA Villegas Work Phone: [facility] Work Phone: Start: 03-27-2023 FQ visit new patient Becky Trevinozahida beck [facility] Start: 03-27-2023 End: 03-28-2023 ambulatory CATIA Villegas Work Phone: [facility] [employer] Other Start: 03-27-2023 End: 03-27-2023 Discharged Recurring CATIA Villegas Work Phone: [facility] Work Phone: Start: 03-27-2023 End: 03-27-2023 Patient encounter procedure CATIA Villegas Work Phone: [facility] Work Phone: Start: 01-19-2023 ambulatory Aung Saldaña Facili ty:[facility] Start: 01-13-2023 ambulatory Avery Villegas Facili ty:[facility] Start: 10-21-2022 End: 10-21-2022 Emergency department patient visit Thanh Bal Facility:[facility] Start: 03-26-2022 End: 03-26-[address] DEON MCGUIRE Facility: Start: 02-01-2022 End: 02-02-2022 Emergency department patient visit DO Judith Mock Facility:[facility] Start: 02-01-2022 End: 02-02-2022 Emergency department patient visit Judith Mock [facility] Start: 01-31-2022 End: 05-02-2022 ambulatory Varinder Ang Facility:[facility] Start: 01-18-2022 End: 01-18-2022 ambulatory [facility] Work Phone: [facility] Work Phone: Start: 01-18-2022 End: 01-18-2022 Patient encounter procedure [facility] Work Phone: [facility] [place] Start: 12-28-2021 End: 12-28-2021 Patient encounter procedure [facility] Work Phone: [facility] [place] Start: 12-23-2021 End: 12-23-2021 Patient encounter procedure [facility] Work Phone: [facility] [place] Start: 11-25-2021 End: 11-25-2021 Departed Referred Services [employer] Phone: [facility] Start: 11-18-2021 End: 11-20-[address] DOCTOR SALGADO Facility:[facility] Start: 11-10-2021 End: 11-11-2021 ambulatory MAGGY WORLEY Facility:[facility] Start: 11-05-2021 End: 11-06-2021 Emergency department patient visit Services [employer] Phone: [facility] Procedures Date Procedure Procedure Detail Performing Clinician Start: 12-28-2021 MRI of thoracic spin e with contrast Services [employer] Phone: Start: 12-28-2021 XR pre/post mri xray Se [employer] [facility] [employer] Phone: Start: 12-28-2021 MRI of lumbar spine with contrast Services [employer] Phone: Start: 12-23-2021 MRI of head Services [facility] Work Phone: Aerobic microbial culture [employer] Phone: Anaerobic microbial culture Services [employer] Phone: Investigation of transfusion reaction Services [employer] Phone: Plan of Treatment Date Care Activity Detail Author Start: 01-18-2022 CONSTRUCTION ANALYST antibody measurement [facility] Start: 01-18-2022 [facility] Start: 12-23-2021 [facility] Start: 12-23-2021 Cerebrospinal fluid culture [facility] Work Phone: Start: 12-23-2021 [facility] Start: 12-23-2021 Lumbar puncture usin g fluoroscopic guidance [facility] Work Phone: Start: 11-25-2021 End: 11-25-2021 Departed Referred Departed Referred [facility] Albumin [Mass/volume ] in Cerebral spinal fluid [facility] Work Phone: Albumin [Mass/volume ] in Serum or Plasma [facility] Work Phone: Albumin/Globulin ratio [facility] Work Phone: Bacteria identified in Unspecified specimen by Aerobe culture [facility] Work Phone: Bacteria identified in Unspecified specimen by Anaerobe culture [facility] Work Phone: Cell count, cerebros alexus fluid [facility] Work Phone: Centromere protein B Ab [Units/volume] in Serum [facility] Work Phone: Cerebrospinal fluid examination [facility] Work Phone: Cerebrospinal fluid IgG ratio and IgG index [facility] Work Phone: Chromatin Ab [Units/ volume] in Serum or Plasma [facility] Work Phone: Comprehensive metabo lic 2000 panel - Serum or Plasma [facility] DNA double strand Ab [Units/volume] in Serum [facility] Work Phone: Electrophoresis: [id number] [facility] Work Phone: Electrophoresis: [id number] [facility] Work Phone: Electrophoresis: beta-globulin [facility] Work Phone: Electrophoresis: toby ma globulin [facility] Work Phone: Evaluation of cerebr ospinal fluid [facility] Work Phone: Fluid sample volume measurement [facility] Work Phone: Globulin [Mass/volum e] in Serum [facility] Work Phone: Glucose [Mass/volume ] in Cerebral spinal fluid [facility] Work Phone: Glutamate decarboxyl ase 65 Ab [Units/volume] in Serum [facility] IgG [Mass/volume] in Cerebral spinal fluid [facility] Work Phone: IgG [Mass/volume] in Serum or Plasma [facility] Work Phone: IgG clearance/Albumi n clearance [Ratio] in Serum and CSF [facility] Work Phone: IgG synthesis rate [Mass/time] in Serum and CSF by calculation [facility] Work Phone: Insulin Ab [Units/vo lume] in Serum [facility] Insulin C-peptide measurement [facility] Rika-1 extractable nuc lear Ab [Units/volume] in Serum [facility] Work Phone: Meningitis+Encephali tis pathogens DNA and RNA panel - Cerebral spinal fluid by GOPAL with non-probe detection [facility] Work Phone: Methylmalonate [Moles/volume] in Serum or Plasma [facility] Work Phone: Microscopic observat ion [Identifier] in Unspecified specimen by Gram stain [facility] Nucleated cells [#/v olume] in Cerebral spinal fluid by Manual count [facility] Work Phone: Patient Education [facility] Work Phone: Patient referral [facility] Work Phone: Protein [Mass/volume ] in Cerebral spinal fluid [facility] Work Phone: Protein [Mass/volume ] in Serum or Plasma [facility] Work Phone: Protein fractions.oligoclonal bands.intrathecal [Presence] in Serum and CSF [facility] Work Phone: Red blood cell count [facility] Work Phone: CONSTRUCTION ANALYST antibody measurement [facility] Work Phone: SCL-70 extractable n uclear Ab [Units/volume] in Serum by Immunoassay [facility] Work Phone: Sjogrens syndrome-A extractable nuclear Ab [Units/volume] in Serum [facility] Work Phone: Sjogrens syndrome-B extractable nuclear Ab [Units/volume] in Serum [facility] Work Phone: Mcguire extractable nu clear Ab [Units/volume] in Serum [facility] Work Phone: [facility] Immunizations Immunization Date Immunization Notes Care Provider [place] 01-31-2022 influenza virus vaccine, unspecified formulation Judith Mock [facility] Comment on above: Reason for Medicatio n: Prophylaxis Payers Date Payer Category Payer Self-pay [id number] 2022 Unknown 1984 Unknown [id number] 1984 Unknown [id number] 1984 Unknown [id number] 1984 Unknown [id number] 1984 Unknown [id number] 1984 Unknown [id number] 1984 Unknown [id number] 1959 Unknown [id number] 71 Medicaid [facility] [id number] Unknown [id number] Unknown [id number] Unknown [id number] Social History Date Type Detail Facility Start: 11-06-2021 End: 03-27-2023 Tobacco smoking status NHIS Ex-smoker (finding) [facility] Start: 1985 Sex Assigned At Female F [facility] Tobacco smoking status No Smokin g Status Entered [facility] Sex Assigned At Female [facility] Start: 06-14-2023 Tobacco smoking stat us NHIS Smoker (finding) [facility] Functional Status Date Assessment Result Facility 02-01-2022 Functional Status N/A [facility] Evaluation note 03-27-2023 Note Date & Type [...] History of gestational diabetes (ICD-10 - Z86.32) [facility] Other Hospital Discharge instructions 02-02-2022 Note Date & Type Note Facility 02-02-2022 Hospital Discharg e instructions Patient Education 02/02/2022 00:18:28 Pyelonephritis, Adult, [id number] Pyelonephritis, Adult Pyelonephritis is an infection that [...] if you start to feel better. Take [id number] and prescription medicines only as told by [...] 05/03/2005 Document Revised: 01/28/2019 Document Reviewed: 01/28/2019 [employer] Patient Education 2020 [employer] Follow Up Care 02/01/2022 21:25:38 With:AVERY VILLEGAS Address: [address] [facility] [address] [place] [address]- [phone] Business (1) When:02/05/2022 Comments:You can use the pain medication every 6 hours as needed for pain, take the Bactrim twice daily until you have completed the course. Please follow-up with your primary care doctor the next 2 to 3 days. Please return to the ED for any new or worsening symptoms. [facility] Evaluation + Plan note 02-01-2022 Note Date [...] With Cult Reflex Urine Culture US Gallbladder [facility] Chief complaint+Reason for visit Narrative Note Date & Type Note Facility Chief complaint+Reason for v isit Narrative [facility] Work Phone: Evaluation note Note Date & Type Note Facility Evaluation note No assessment information availa ble [facility] Work Phone: Evaluation note Note Date & Type Note Facility Evaluation note Diagnosis Onset Date Alcohol use disorder acute BMI 21.0-21.9, adult acute Controlled diabetes mellitus with hyperglycemia acute Dietary counseling and surveillance acute Hyperlipidemia acute Vitamin D deficiency acute [facility] Work Phone: History general Narrative - Reported Note Date & Type Note Facility History general Narrative - Reported Type Medical History Hx of abnormal pap Medical History Hx of pancreatitis Medical History type II diabetes Medical History bipolar Surgical History hemangioma removed from lip at age 4 Hospitalization History See Above Hospitalization History pancreatitis [facility] [employer] Other Hospital course Narrative Note Date & Type Note Facility Hospital course Narrative No data available for this section [facility] Progress note Note Date & Type Note Facility Progress note No data available for this section [facility] Chief Complaint and Reason for Visit Chief [...] Member Role Status Dates Avery Villegas APRN STICKER MACHINE OPERATOR-C Attending Provider Active Team Status: Inactive Member Role Status Dates [facility] Primary Care Provider Active Hal Orozco DO Emergency Provider Active Team Status: Inactive Member Role Status Dates Delfino Reese MD Attending Provider Active Yeyo Mcneill , STICKER MACHINE OPERATOR-C Primary Care Provider Active Team Status: Active Member Role Status Dates Yeyo Mcneill , STICKER MACHINE OPERATOR-C Primary Care Provider Active Team Status: Inactive Member Role Status Dates Yeyo Mcneill , STICKER MACHINE OPERATOR-C Primary Care Provider Active Delfino Reese MD Attending Provider Active Team Status: Active Member Role Status Dates Avery Villegas APRN STICKER MACHINE OPERATOR-C Primary Care Provider Act dario Team Status: Inactive Member Role Status Dates Becky Gambino APRN Attending Provider Active Start: March 27, 2023 End: March 27, 2023 Team Status: Inactive Member Role Status Dates Becky Gambino APRN Attending Provider Active Start: March 27, 2023 End: March 27, 2023 Avery Villegas APRN STICKER MACHINE OPERATOR-C Primary Care Provider Act dario Start: March 27, 2023 End: March 27, 2023 Team Status: Inactive Member Role Status Dates Avery Villegas APRN STICKER MACHINE OPERATOR-C Primary Care Provider Act dario Start: June 14, 2023 End: June 14, 2023 Becky Gambino APRN Attending Provider Active Start: June 14, 2023 End: June 14, 2023 Team Status: Inactive Member Role Status Dates Avery Villegas APRN STICKER MACHINE OPERATOR-C Attending Provider Active Start: August 14, 2023 [...] DATE CREATED AUTHOR AUTHOR'S ORGANIZ ATION 01/20/2023 [facility] DATE CREATED AUTHOR AUTHOR'S ORGANIZ ATION 08/19/2023 [facility] REASON FOR VISIT (unrecogniz ed [...] BE BASED ON THE PRIMARY CLINICAL RECORDS. [facility] [employer] [facility]. provides no warranty or guarantee of the accuracy or completeness of information in this document.
[2023-11-26] MEDS: CLONIDINE HCL 0.1 MG TABLET PO ×2 (17:01→22:12)
--- NOTE | 2023-11-26 17:04 | PC.NURSE ---
Patient is very remorseful and admits to having suicidal ideations with a plan. See [place] suicide scale. Patient also actively withdrawing, CIWA of 20. Medicated per MD order. Patient appears anxious and tearful but is cooperative, appropriate and pleasant. Nurse at bedside at this time. Patient denies needs at this time, patient is also drowsy.
[2023-11-26] MEDS: ACETAMINOPHEN 325 MG TABLET 650 MG PO (17:09)
[2023-11-26] MEDS: NICOTINE 21 MG PATCH.TD24 TD (17:09)
[2023-11-26] MEDS: LACTATED RINGER'S SOLUTION 1,000 ML 125 ML IV (17:10)
[2023-11-26] MEDS: LORAZEPAM 1 MG TABLET PO ×2 (17:54→21:11)
[2023-11-26] MEDS: PROMETHAZINE HCL 12.5 MG in 0.9 % SODIUM CHLORIDE 50 ML 204 MG IV (20:05)
[2023-11-26] MEDS: ENOXAPARIN SODIUM 40 MG/0.4 ML SYRINGE SUBQ (20:13)
[2023-11-26 20:14] LABS: Glucometer 132 mg/dL (74-106)
[2023-11-26] MEDS: QUETIAPINE FUMARATE 25 MG TABLET PO (21:11)
[2023-11-27] VITALS (94 sets, daily range): BP systolic 112–166; BP diastolic 71–100; PULSE 16–103; TEMP 36.8–37.1; O2SAT 65–100; BMI 21.9
[2023-11-27] MEDS: LACTATED RINGER'S SOLUTION 1,000 ML 125 ML IV ×4 (00:30→23:21)
[2023-11-27] MEDS: LORAZEPAM 2 MG/ML VIAL 0.5 MG IV ×2 (04:34→07:53)
[2023-11-27] MEDS: PROMETHAZINE HCL 12.5 MG in 0.9 % SODIUM CHLORIDE 50 ML 204 MG IV ×3 (06:10→21:02)
[2023-11-27 06:20] LABS: Basophils Absolute Auto 0.1 10^3/uL (0.0-0.1); Basophils Percent Auto 1.7 % (0.2-2.0); Eosinophils Percent Auto 0.7 % (0.9-7.0); Hematocrit 35.4 % (36.0-48.0); Hemoglobin 12.1 g/dL (12.0-16.0); Immature Granulocytes Abs Auto 0.01 10^3/uL (0.00-0.03); Immature Granulocytes Pct Auto 0.2 % (0.0-0.5); Lymphocytes Absolute Auto 2.2 10^3/uL (1.2-3.8); Lymphocytes Percent Auto 51.9 % (20.5-60.0); Mean Corpuscular HGB Conc 34.2 g/dL (29.9-35.2); Mean Corpuscular Volume 93.7 fL (81.0-99.0); Mean Platelet Volume 9.3 fL (9.5-13.5); Monocytes Absolute Auto 0.4 10^3/uL (0.3-0.8); Monocytes Percent Auto 9.4 % (1.7-12.0); Neutrophils Absolute Auto 1.5 10^3/uL (1.4-6.5); Neutrophils Percent Auto 36.1 % (43.0-75.0); Platelet Count 88 10^3/uL (150-450); Red Blood Count 3.78 10^6/uL (4.20-5.40); Red Cell Distribution Width 12.2 % (11.0-15.0); White Blood Count 4.2 10^3/uL (4.0-11.0)
[2023-11-27 06:37] LABS: Alanine Aminotransferase 44 U/L (14-59); Albumin Globulin Ratio 1.1; Albumin Level 3.3 g/dL (3.4-5.0); Alkaline Phosphatase 85 U/L (46-116); Anion Gap 17.8; Aspartate Amino Transferase 123 U/L (15-37); BUN Creatinine Ratio 9.1; Bilirubin Total 1.1 mg/dL (0.2-1.0); Calcium 8.7 mg/dL (8.5-10.1); Carbon Dioxide 23.9 mmol/L (21.0-32.0); Chloride 103 mmol/L (98-107); Estimated GFR (African America >60 (>=60); Estimated GFR (Non-African Ame >60 (>=60); Ethanol 87 mg/dL; Globulin 2.9 g/dL; Glucose 76 mg/dL (74-106); Potassium 3.7 mmol/L (3.5-5.1); Sodium 141 mmol/L (136-145); Total Protein 6.2 g/dL (6.4-8.2)
--- NOTE | 2023-11-27 07:30 | PC.NURSE ---
pt awake in bed, denies suicidal ideation. stated I want to go home to my baby. pt denies plan, and stated i know what i said in er yesterday.
[2023-11-27 07:47] LABS: Glucometer 63 mg/dL (74-106)
[2023-11-27] MEDS: OMEPRAZOLE 40 MG CAPSULE.DR PO (07:53)
--- NOTE | 2023-11-27 08:01 | CM.NOTE ---
Called [facility] for consult, message left to return call to [facility].
--- NOTE | 2023-11-27 08:14 | PC.NURSE ---
dr najera at bedside, update given. pt continues to deny suicidal ideation. [facility] to discuss pt. spoke with miah, she stated they will not eval pt until pt is medically cleared. case management made aware.
--- NOTE | 2023-11-27 09:12 | PM.IMPN1 ---
Progress Note: A&P Assessment and Plan (1) Alcohol withdrawal: Assessment and Plan: Last drink was prior to arrival. He has a started to show signs and symptoms of alcohol withdrawal. His CIWA was 9 just prior to receiving IV Ativan. He has prior history of alcohol withdrawal syndrome but denies alcohol withdrawal seizures. She is at high risk of severe alcohol withdrawal because of her large quantity of alcohol use. Continue with Ativan, clonidine as needed. Monitor closely for DTs/alcohol withdrawal seizures. Qualifiers: Complication of substance-induced condition: with perceptual disturbance Qualified Code(s): F10.932 - Alcohol use, unspecified with withdrawal with perceptual disturbance (2) Suicidal ideation: Assessment and Plan: Patient reported suicidal ideation upon arrival but she was intoxicated at that time. She is more comfortable and denies suicidal ideation currently. She has 5 kids and she is soon to become a grandmother. She is looking forward to it. She does have depressive symptoms likely because of alcohol abuse and associated guilt. She denies current suicidal ideation and seems like her suicidal ideation was because of acute alcohol intoxication (3) Alcoholic intoxication: Assessment and Plan: She still has alcohol in her system upon measurement. However she is starting to show signs of mild alcohol withdrawal. She needs to be closely monitored for DTs and seizure Qualifiers: Complication of substance-induced condition: uncomplicated Qualified Code(s): F10.920 - Alcohol use, unspecified with intoxication, uncomplicated (4) Type 2 diabetes mellitus: Assessment and Plan: Continue with sliding scale insulin Qualifiers: Diabetes mellitus [facility] [facility] use: without [facility] use Diabetes mellitus complication status: with hyperglycemia Qualified Code(s): E11.65 - Type 2 diabetes mellitus with hyperglycemia (5) Bipolar 1 disorder: Assessment and Plan: Kidney with home medications. (6) HTN (hypertension): Assessment and Plan: Continue with Norvasc. Qualifiers: Hypertension type: primary hypertension Qualified Code(s): I10 - Essential (primary) hypertension (7) Hypothyroidism: Assessment and Plan: Continue with levothyroxine. Qualifiers: Hypothyroidism type: unspecified Qualified Code(s): E03.9 - Hypothyroidism, unspecified Internal Medicine - PN: Subj Subjective Interval history: Seen and examined. Patient had just received IV ativan for alcohol withdrawal symptoms so her CIWA score was better/improved on my evaluation. Currently CIWA is 4-5 Exam Constitutional Vital Signs, click to edit/add: Last Vital Signs Temp 98.7 F 11/27/23 07:38 Pulse 72 11/27/23 08:00 Resp 19 11/27/23 08:00 BP 135/93 H 11/27/23 07:38 Pulse Ox 98 11/27/23 08:00 O2 Del Method Room Air 11/27/23 07:38 Documenting provider has reviewed patient's vital signs: yes Common normals: no apparent distress General appearance: lethargic Respiratory Common normals: normal respiratory effort and clear to auscultation bilaterally Effort & inspection: able to speak in complete sentences Auscultation: clear to auscultation bilaterally Cardio Common normals: regular rate, S1 normal heart sound and S2 normal heart sound Rate: regular rate Heart sounds: S1 normal and S2 normal Extremity Common normals: no clubbing, cyanosis or edema Neuro Common normals: oriented x3, moves all extremities and no focal motor deficits Sensorium/orientation: lethargic and somnolent Psych Common normals: mental status grossly normal, thought process normal, denies hallucinations, denies homicidal ideation and denies suicidal ideation Insight: insight good Judgement: judgment good Internal Medicine - PN: Obj Da Labs Labs: Laboratory Results - last 24 hr 11/26/23 11/26/23 11/27/23 14:20 20:13 05:20 WBC 4.2 4.2 RBC 4.64 3.78 L Hgb 14.9 12.1 Hct 42.9 35.4 L MCV 92.5 93.7 MCH 32.1 32.0 MCHC 34.7 34.2 RDW 12.1 12.2 Plt Count 124 L 88 L MPV 9.1 L 9.3 L Neut % (Auto) 46.6 36.1 L Lymph % (Auto) 44.4 51.9 [place] % (Auto) 5.5 9.4 Eos % (Auto) 1.2 0.7 L Baso % (Auto) 2.1 H 1.7 Neut # (Auto) 2.0 1.5 Lymph # (Auto) 1.9 2.2 [place] # (Auto) 0.2 L 0.4 Eos # (Auto) 0.1 0.0 Baso # (Auto) 0.1 0.1 Abs Immat Gran (auto) 0.01 0.01 Imm/Tot Granulo (auto) 0.2 0.2 PT 10.8 INR 1.02 Sodium 138 141 Potassium 4.1 3.7 Chloride 94 L 103 Carbon Dioxide 19.3 L 23.9 Anion Gap 28.8 17.8 BUN 8.0 5.0 L Creatinine 0.68 0.55 Est GFR ( Amer) >60 >60 Est GFR (Non-Af Amer) >60 >60 BUN/Creatinine Ratio 11.8 9.1 Glucose 76 76 Calcium 9.0 8.7 Magnesium 1.5 L Total Bilirubin 0.8 1.1 H AST 76 H 123 H ALT 38 44 Alkaline Phosphatase 91 85 Total Protein 7.9 6.2 L Albumin 4.2 3.3 L Globulin 3.7 2.9 Albumin/Globulin Ratio 1.1 1.1 Serum HCG, Qual Negative Salicylates <2.8 Acetaminophen <2.0 L Ethanol Quant 463 87 POC Glucose 132 H 11/27/23 07:47 WBC RBC Hgb Hct MCV MCH MCHC RDW Plt Count MPV Neut % (Auto) Lymph % (Auto) [place] % (Auto) Eos % (Auto) Baso % (Auto) Neut # (Auto) Lymph # (Auto) [place] # (Auto) Eos # (Auto) Baso # (Auto) Abs Immat Gran (auto) Imm/Tot Granulo (auto) PT INR Sodium Potassium Chloride Carbon Dioxide Anion Gap BUN Creatinine Est GFR ( Amer) Est GFR (Non-Af Amer) BUN/Creatinine Ratio Glucose Calcium Magnesium Total Bilirubin AST ALT Alkaline Phosphatase Total Protein Albumin Globulin Albumin/Globulin Ratio Serum HCG, Qual Salicylates Acetaminophen Ethanol Quant POC Glucose 63 L
--- NOTE | 2023-11-27 09:27 | CM.NOTE ---
Rounds made with Dr. Cheung, pt having signs of active withdraw. EFFIE Cotto spoke with Dr. Cheung regarding [facility] consult. Dr. Cheung would like to continue with consult for [facility] counseling. No discharge to home today.
--- NOTE | 2023-11-27 09:47 | PC.NURSE ---
updated dr najera on pt, order received to discontinue constant observer. pt cooperative, continues to deny suicidal ideation.
[2023-11-27] MEDS: CLONIDINE HCL 0.1 MG TABLET PO ×2 (10:15→19:19)
--- NOTE | 2023-11-27 11:31 | SWNOTE1 ---
SW spoke to case management and pt has to be medically cleared for [facility] counseling to complete assessment. Pt is not medically cleared. Pt is pink slipped.
--- NOTE | 2023-11-27 11:36 | PC.NURSE ---
0753 1 mg ativan given tp pt, 1 mg ativan wasted per policy.
[2023-11-27] MEDS: LORAZEPAM 1 MG TABLET PO ×7 (11:50→23:21)
[2023-11-27] MEDS: ONDANSETRON PF 4 MG/2 ML VIAL IV ×2 (11:52→19:19)
[2023-11-27 11:53] LABS: Glucometer 83 mg/dL (74-106)
--- NOTE | 2023-11-27 14:53 | SWNOTE1 ---
SW stopped in to speak with pt. Pt just attempted to eat some food, but still very nauseous. Pt right away stated she does not want to go to [address] SW expressed to pt that she voiced that she wanted to harm herself so at this time she is pink slipped and will need to speak with a [facility] professional. SW did ask pt if she has any thoughts of harming herself right now. She voiced no. SW let pt know that SW did see her a few weeks ago in the ED. Pt voiced that she remembers and that she did do outpt counseling at [facility] and she stayed sober for a few weeks. SW asked why she relapsed and she stated due to stress. Pt again voiced she really does not want to go to [facility]. Pt voiced she wants to be home with her son and his birthday is tomorrow. SW expressed to pt that she is pink slipped and unsure what her discharge will be. SW expressed to pt that for her son it will be very beneficial to get rehab at a facility and care for herself so she can for her son. At this time unsure of dc plans. Will re-evaluate tomorrow. SW expressed to pt to think about inpt rehab. SW received call from nurse and pt told her that she has been to a place she thinks it is called [facility] and something with the name [place] in it. SW to try and find these places.
--- NOTE | 2023-11-27 15:06 | PC.NURSE ---
medicated for nausea. taking bites of fruit on meal tray. pt considering possible rehab facilities, stated i will think more about it when i have a clear head. pt denies suicidal thoughts or plan. pleasant, cooperative.
[2023-11-27] MEDS: NICOTINE 21 MG PATCH.TD24 TD (16:42)
[2023-11-27 16:45] LABS: Glucometer 146 mg/dL (74-106)
--- NOTE | 2023-11-27 20:43 | PC.NURSE ---
2042 - RN to pt's bedside. Pt assessment and CIWA as charted. Pt medicated as charted on JUN. Pt assisted with standby assist to BSC. Pt urinated 800ml of tea colored urine. Clean catch urine sample retrieved per protocol and sent to lab for analysis. Pt returned to position of comfort in bed and linens straightened. Cardiac monitoring with POX continued. IVF continues to infuse without S/S of infiltrate. Omid light in reach. Bed in lowest position with bed alarm engaged due to pt's low safety awareness.
[2023-11-27 20:50] LABS: Glucometer 192 mg/dL (74-106)
[2023-11-27] MEDS: ENOXAPARIN SODIUM 40 MG/0.4 ML SYRINGE SUBQ (21:02)
[2023-11-27 21:03] LABS: Amphetamine Screen Urine NEGATIVE (NEGATIVE); Benzodiazepines Screen Urine POSITIVE (NEGATIVE); Cannabinoid Screen Urine NEGATIVE (NEGATIVE); Cocaine Screen Urine NEGATIVE (NEGATIVE); Methadone Screen Urine NEGATIVE (NEGATIVE); Methamphetamines Screen Urine NEGATIVE (NEGATIVE); Opiate Screen Urine NEGATIVE (NEGATIVE); Phencyclidine Screen Urine NEGATIVE (NEGATIVE); Tricyclic Antidepressant Urine NEGATIVE (NEGATIVE)
[2023-11-27] MEDS: HYOSCYAMINE SULFATE 0.125 MG TAB.SUBL SL (21:03)
[2023-11-27] MEDS: QUETIAPINE FUMARATE 25 MG TABLET PO (21:03)
[2023-11-27 21:04] LABS: Barbiturates Screen Urine NEGATIVE (NEGATIVE); Buprenorphine Screen Urine NEGATIVE (NEGATIVE); Oxycodone Screen Urine NEGATIVE (NEGATIVE)
--- NOTE | 2023-11-27 21:15 | PC.NURSE ---
2110 - RN to bedside. CIWA performed per protocol. Pt states that she is having visual hallucinations of black clouds . States that she knows they are not real. Pt also states that she is having auditory hallucinations, loud enough to frighten her while she is sleeping. Pt states that she will call out or yell when she is having them. Pt also c/o cold sweats, and requests warm blanket. Blankets provided to patient for comfort. Pt continues to be very impulsive. Tremors noted without pt having to extend limbs. Current CIWA - 22. Pt medicated appropriately.
--- NOTE | 2023-11-27 21:48 | PC.NURSE ---
2145 - RN to pt's bedside. Assisted pt up to BSC. Pt urinated 850mls urine and returned to position of comfort in bed. Tolerated well. No acute distress. Gait remains unsteady. Assisted with Standby assist only X1. Pericare performed per pt.
--- NOTE | 2023-11-27 23:26 | PC.NURSE ---
2323 - RN to bedside. Pt requested her purse. RN retrieved pt's belongings and remained at bedside with pt. Noted X4 prescription bottles in pt's purse. Retrieved the medication bottles, with pt's permission. Contents of bottles verified with amounts of each recorded with [employer]PERVIS[employer] Evy Tellez, and bottles placed in locked medication drawer of pt's room. When RN entered pt's room, pt yelled out what are you looking for?' at underwriter. Supervisor Particleboard reoriented pt and explained that RN was securing pt's medications in the locked drawer as was discussed. Pt apologized for yelling at underwriter. She stated that I thought you were my , and explained that the visual and auditory hallucinations were becoming stronger. CIWA performed and pt medicated.
[2023-11-28] VITALS (93 sets, daily range): BP systolic 110–183; BP diastolic 73–109; PULSE 57–103; TEMP 36.5–37.2; O2SAT 66–100
--- NOTE | 2023-11-28 00:38 | PC.NURSE ---
0038 - Pt using call light. RN to beside. PT states that she is feeling severe tremors, sweating really badly, hearing a lot of things that I know are not there, and seeing those black things. Requesting medications for symptoms. CIWA completed per protocol as charted.
[2023-11-28] MEDS: ONDANSETRON PF 4 MG/2 ML VIAL IV ×3 (00:43→20:56)
[2023-11-28] MEDS: LORAZEPAM 1 MG TABLET PO ×4 (00:44→06:35)
[2023-11-28] MEDS: CLONIDINE HCL 0.1 MG TABLET PO ×3 (00:44→14:08)
[2023-11-28] MEDS: LORAZEPAM 2 MG/ML VIAL 1 MG IV ×2 (00:48→07:01)
[2023-11-28] MEDS: PROMETHAZINE HCL 12.5 MG in 0.9 % SODIUM CHLORIDE 50 ML 204 MG IV ×2 (03:39→11:56)
--- NOTE | 2023-11-28 05:59 | PC.NURSE ---
RN to patient's bedside. Pt sitting up in bed. When asked what she was doing, pt states that she is going to save the little boy's life. RN asked pt who the little boy was, and pt replied the ittle boy over there on thee side of the road with no shoes on. Attempts to reorient pt unsuccessful. Explained to pt that she was in the hospital, and that she was going through [facility] detox. Pt argued that she ws saving people's lives.
--- NOTE | 2023-11-28 06:13 | PC.NURSE ---
RN to bedside. Pt had dumped her water on the floor. Floor cleaned up and remained of her glass of water was moved to the counter by the sink. Pt continues to yell out and argue with people who are not in the room, attempt to crawl out of bed to complete random tasks, or save the little boy . Attempts to reorient patient are unsuccessful at present time. Pt will lay down in bed or put herelf back in bed only to return to hallucinations and yelling just a few moments after publicity writer leaves room.
[2023-11-28 06:35] LABS: Basophils Absolute Auto 0.1 10^3/uL (0.0-0.1); Basophils Percent Auto 1.5 % (0.2-2.0); Eosinophils Absolute Auto 0.1 10^3/uL (0.0-0.7); Eosinophils Percent Auto 1.5 % (0.9-7.0); Hematocrit 37.2 % (36.0-48.0); Hemoglobin 12.7 g/dL (12.0-16.0); Immature Granulocytes Abs Auto 0.02 10^3/uL (0.00-0.03); Immature Granulocytes Pct Auto 0.6 % (0.0-0.5); Lymphocytes Absolute Auto 1.3 10^3/uL (1.2-3.8); Lymphocytes Percent Auto 41.5 % (20.5-60.0); Mean Corpuscular HGB Conc 34.1 g/dL (29.9-35.2); Mean Corpuscular Hemoglobin 32.2 pg (26.7-34.0); Mean Corpuscular Volume 94.2 fL (81.0-99.0); Mean Platelet Volume 9.9 fL (9.5-13.5); Monocytes Absolute Auto 0.3 10^3/uL (0.3-0.8); Monocytes Percent Auto 9.9 % (1.7-12.0); Neutrophils Absolute Auto 1.5 10^3/uL (1.4-6.5); Platelet Count 78 10^3/uL (150-450); Red Blood Count 3.95 10^6/uL (4.20-5.40); Red Cell Distribution Width 12.2 % (11.0-15.0); White Blood Count 3.2 10^3/uL (4.0-11.0)
[2023-11-28] MEDS: OMEPRAZOLE 40 MG CAPSULE.DR PO (06:35)
[2023-11-28 07:16] LABS: Alanine Aminotransferase 52 U/L (14-59); Albumin Globulin Ratio 1.2; Albumin Level 3.5 g/dL (3.4-5.0); Alkaline Phosphatase 80 U/L (46-116); Anion Gap 14.9; Aspartate Amino Transferase 100 U/L (15-37); Bilirubin Total 1.7 mg/dL (0.2-1.0); Calcium 9.6 mg/dL (8.5-10.1); Carbon Dioxide 27.7 mmol/L (21.0-32.0); Chloride 104 mmol/L (98-107); Estimated GFR (African America >60 (>=60); Estimated GFR (Non-African Ame >60 (>=60); Glucose 114 mg/dL (74-106); Potassium 3.6 mmol/L (3.5-5.1); Sodium 143 mmol/L (136-145); Total Protein 6.5 g/dL (6.4-8.2)
[2023-11-28 07:17] LABS: BUN Creatinine Ratio 6.3
[2023-11-28] MEDS: LEVOTHYROXINE SODIUM 25 MCG TABLET 50 MCG PO (08:51)
[2023-11-28] MEDS: LOSARTAN POTASSIUM 25 MG TABLET PO (08:52)
[2023-11-28] MEDS: LORAZEPAM 1 MG TABLET 2 MG PO ×7 (08:52→23:44)
[2023-11-28] MEDS: AMLODIPINE BESYLATE 5 MG TABLET PO (08:52)
[2023-11-28] MEDS: CARBAMAZEPINE 200 MG TABLET PO (09:01)
--- NOTE | 2023-11-28 09:21 | P.IMPN_ITS ---
Progress Note: A&P Assessment and Plan (1) Delirium tremens: Assessment and Plan: Now has DTs. Increased Ativan to 2 q4 scheduled dosing. Increased ativan to 2 q2 as needed. Had just received IV ativan and was sleeping If not controlled on current regimen, might need continuous ativan infusion or precedex. (2) Alcohol withdrawal: Assessment and Plan: How has DTs. Increase ativan dose and frequency. clonidine as needed. Qualifiers: Complication of substance-induced condition: with delirium Qualified Code(s): F10.931 - Alcohol use, unspecified with withdrawal delirium (3) Suicidal ideation: Assessment and Plan: Currently has severe alcohol withdrawal. Once medically stable/cleared, we will have formal psych eval for it. (4) Alcoholic intoxication: Assessment and Plan: Last drink >48 hours ago. Has severe alcohol withdrawal now. Qualifiers: Complication of substance-induced condition: uncomplicated Qualified Code(s): F10.920 - Alcohol use, unspecified with intoxication, uncomplicated (5) Type 2 diabetes mellitus: Assessment and Plan: C/w SSI Qualifiers: Diabetes mellitus jail insulin use: without [employer] hospitalist use Diabetes mellitus complication status: with hyperglycemia Qualified Code(s): E11.65 - Type 2 diabetes mellitus with hyperglycemia (6) Bipolar 1 disorder: Assessment and Plan: c/w home medications (7) HTN (hypertension): Assessment and Plan: Poorly controlled likely due to autonomic dysfunction from DTs/alcohol withdrawal C/w norvasc. She is also on clonidine and hydralazine as needed Qualifiers: Hypertension type: primary hypertension Qualified Code(s): I10 - Essential (primary) hypertension (8) Hypothyroidism: Assessment and Plan: C/w levothyroxine Qualifiers: Hypothyroidism type: unspecified Qualified Code(s): E03.9 - Hypothyroidism, unspecified Internal Medicine - PN: Subj Subjective Interval history: Seen and examined. Patient was sedated and sleeping at the time of my evalua tion. Overnight, she was confused, delirious and hallucinating. She is also now showing evidence of autonomic dysfunction Patient has severe alcohol withdrawal and experiencing DTs. now Exam Constitutional Vital Signs, click to edit/add: Last Vital Signs Temp 98.5 F 11/28/23 04:13 Pulse 61 11/28/23 09:10 Resp 21 H 11/28/23 08:40 BP 163/100 H 11/28/23 08:52 Pulse Ox 97 11/28/23 09:10 O2 Del Method Room Air 11/28/23 04:13 Exam limitations: altered mental status General appearance: disheveled Orientation/consciousness: Yes confused and Yes lethargic Respiratory Common normals: no use of accessory muscles and clear to auscultation bilaterally Effort & inspection: tachypneic Cardio Common normals: regular rhythm, S1 normal heart sound and S2 normal heart sound Rate: regular rate Extremity Common normals: normal to inspection and full ROM Neuro Common normals: moves all extremities and no focal motor deficits Internal Medicine - PN: Obj Da Labs Labs: Laboratory Results - last 24 hr 11/27/23 11/27/23 11/27/23 11:50 16:43 20:34 WBC RBC Hgb Hct MCV MCH MCHC RDW Plt Count MPV Neut % (Auto) Lymph % (Auto) [place] % (Auto) Eos % (Auto) Baso % (Auto) Neut # (Auto) Lymph # (Auto) [place] # (Auto) Eos # (Auto) Baso # (Auto) Abs Immat Gran (auto) Imm/Tot Granulo (auto) Sodium Potassium Chloride Carbon Dioxide Anion Gap BUN Creatinine Est GFR ( Amer) Est GFR (Non-Af Amer) BUN/Creatinine Ratio Glucose Calcium Total Bilirubin AST ALT Alkaline Phosphatase Total Protein Albumin Globulin Albumin/Globulin Ratio Urine Opiates Screen Negative Ur Buprenorphine Scrn Negative Ur Oxycodone Screen Negative Urine Methadone Screen Negative Ur Barbiturates Screen Negative U Tricyclic Antidepress Negative Ur Phencyclidine Scrn Negative Ur Amphetamines Screen Negative U Methamphetamines Scrn Negative U Benzodiazepines Scrn Positive A Urine Cocaine Screen Negative U Cannabinoids Screen Negative POC Glucose 83 146 H 11/27/23 11/28/23 20:49 06:30 WBC 3.2 L RBC 3.95 L Hgb 12.7 Hct 37.2 MCV 94.2 MCH 32.2 MCHC 34.1 RDW 12.2 Plt Count 78 L MPV 9.9 Neut % (Auto) 45.0 Lymph % (Auto) 41.5 [place] % (Auto) 9.9 Eos % (Auto) 1.5 Baso % (Auto) 1.5 Neut # (Auto) 1.5 Lymph # (Auto) 1.3 [place] # (Auto) 0.3 Eos # (Auto) 0.1 Baso # (Auto) 0.1 Abs Immat Gran (auto) 0.02 Imm/Tot Granulo (auto) 0.6 H Sodium 143 Potassium 3.6 Chloride 104 Carbon Dioxide 27.7 Anion Gap 14.9 BUN 4.0 L Creatinine 0.64 Est GFR ( Amer) >60 Est GFR (Non-Af Amer) >60 BUN/Creatinine Ratio 6.3 Glucose 114 H Calcium 9.6 Total Bilirubin 1.7 H AST 100 H ALT 52 Alkaline Phosphatase 80 Total Protein 6.5 Albumin 3.5 Globulin 3.0 Albumin/Globulin Ratio 1.2 Urine Opiates Screen Ur Buprenorphine Scrn Ur Oxycodone Screen Urine Methadone Screen Ur Barbiturates Screen U Tricyclic Antidepress Ur Phencyclidine Scrn Ur Amphetamines Screen U Methamphetamines Scrn U Benzodiazepines Scrn Urine Cocaine Screen U Cannabinoids Screen POC Glucose 192 H
--- NOTE | 2023-11-28 09:22 | SWNOTE1 ---
Pt is hallucinating, not medically cleared at this time. Not able to make discharge plans at this time. SW to follow as needed.
--- NOTE | 2023-11-28 09:26 | PC.NURSE ---
Dr. Cheung notified of patient CIWA scores and blood pressure, physician to change Ativan orders, stated the clonidine will help the blood pressure, as well as the patient's morning blood pressure medications.
--- NOTE | 2023-11-28 09:44 | CM.NOTE ---
Rounds made with Dr. Cheung. Shikha is currently sleeping since had been up most of night. Dr. Cheung will allow to sleep & assess later. Dr Cheung made med adjustments this morning.
[2023-11-28 11:51] LABS: Glucometer 94 mg/dL (74-106)
[2023-11-28] MEDS: LACTATED RINGER'S SOLUTION 1,000 ML 75 ML IV (13:01)
--- NOTE | 2023-11-28 15:04 | DIETREC ---
Recommend 1800 kcal CCD diet d/t dx DM2. Also recommend 237 mL Ensure Clear BD as tolerated between meals d/t poor PO intakes.
[2023-11-28 16:19] LABS: Glucometer 123 mg/dL (74-106)
[2023-11-28] MEDS: ACETAMINOPHEN 325 MG TABLET 650 MG PO (17:35)
[2023-11-28] MEDS: NICOTINE 21 MG PATCH.TD24 TD (17:36)
[2023-11-28] MEDS: ENOXAPARIN SODIUM 40 MG/0.4 ML SYRINGE SUBQ (20:52)
[2023-11-28] MEDS: IBUPROFEN 600 MG TABLET PO (20:56)
[2023-11-28] MEDS: INSULIN ASPART 300 UNIT/3 ML PEN SUBQ (21:11)
[2023-11-28] MEDS: QUETIAPINE FUMARATE 25 MG TABLET PO (21:12)
[2023-11-28 21:20] LABS: Glucometer 187 mg/dL (74-106)
[2023-11-29] VITALS (115 sets, daily range): BP systolic 127–161; BP diastolic 85–112; PULSE 56–104; TEMP 36.4–37.1; O2SAT 58–100
[2023-11-29] MEDS: LACTATED RINGER'S SOLUTION 1,000 ML 75 ML IV ×2 (01:03→14:46)
[2023-11-29] MEDS: CLONIDINE HCL 0.1 MG TABLET PO ×3 (04:12→22:04)
[2023-11-29] MEDS: LORAZEPAM 1 MG TABLET 2 MG PO ×7 (04:12→20:20)
[2023-11-29] MEDS: OMEPRAZOLE 40 MG CAPSULE.DR PO (05:39)
[2023-11-29] MEDS: HYDRALAZINE HCL 20 MG/ML VIAL 10 MG IVP (06:19)
[2023-11-29 06:42] LABS: Alanine Aminotransferase 54 U/L (14-59); Albumin Level 3.2 g/dL (3.4-5.0); Alkaline Phosphatase 82 U/L (46-116); Anion Gap 15.2; Aspartate Amino Transferase 98 U/L (15-37); BUN Creatinine Ratio 5.8; Calcium 9.3 mg/dL (8.5-10.1); Carbon Dioxide 25.4 mmol/L (21.0-32.0); Chloride 104 mmol/L (98-107); Estimated GFR (African America >60 (>=60); Estimated GFR (Non-African Ame >60 (>=60); Globulin 3.2 g/dL; Glucose 116 mg/dL (74-106); Potassium 3.6 mmol/L (3.5-5.1); Sodium 141 mmol/L (136-145); Total Protein 6.4 g/dL (6.4-8.2)
[2023-11-29 06:49] LABS: Basophils Absolute Auto 0.1 10^3/uL (0.0-0.1); Basophils Percent Auto 1.6 % (0.2-2.0); Eosinophils Absolute Auto 0.1 10^3/uL (0.0-0.7); Eosinophils Percent Auto 3.9 % (0.9-7.0); Hematocrit 36.7 % (36.0-48.0); Hemoglobin 12.5 g/dL (12.0-16.0); Immature Granulocytes Abs Auto 0.02 10^3/uL (0.00-0.03); Immature Granulocytes Pct Auto 0.6 % (0.0-0.5); Lymphocytes Absolute Auto 1.3 10^3/uL (1.2-3.8); Lymphocytes Percent Auto 42.9 % (20.5-60.0); Mean Corpuscular HGB Conc 34.1 g/dL (29.9-35.2); Mean Corpuscular Hemoglobin 32.1 pg (26.7-34.0); Mean Corpuscular Volume 94.1 fL (81.0-99.0); Mean Platelet Volume 10.8 fL (9.5-13.5); Monocytes Absolute Auto 0.3 10^3/uL (0.3-0.8); Monocytes Percent Auto 8.1 % (1.7-12.0); Neutrophils Absolute Auto 1.3 10^3/uL (1.4-6.5); Neutrophils Percent Auto 42.9 % (43.0-75.0); Red Cell Distribution Width 12.3 % (11.0-15.0); White Blood Count 3.1 10^3/uL (4.0-11.0)
[2023-11-29 07:20] LABS: Platelet Count 82 10^3/uL (150-450)
[2023-11-29] MEDS: AMLODIPINE BESYLATE 5 MG TABLET PO (08:07)
[2023-11-29] MEDS: CARBAMAZEPINE 200 MG TABLET PO (08:07)
[2023-11-29] MEDS: LEVOTHYROXINE SODIUM 25 MCG TABLET 50 MCG PO (08:07)
[2023-11-29] MEDS: LOSARTAN POTASSIUM 25 MG TABLET PO (08:07)
[2023-11-29 08:10] LABS: Glucometer 106 mg/dL (74-106)
--- NOTE | 2023-11-29 10:13 | CM.NOTE ---
Rounds made with Dr. Cheung. Dr. Cheung discusses plan of care. Shikha in agreement with plan. No discharge today.
--- NOTE | 2023-11-29 10:15 | P.IMPN_ITS ---
Progress Note: A&P Assessment and Plan (1) Delirium tremens: Assessment and Plan: Improving with current regimen. C/w 2 mg PO ativan q4. C/w PO and IV ativan as needed Needs close monitoring. CIWA still quite high even though she had just received Ativan an hour ago. (2) Alcohol withdrawal: Assessment and Plan: Severe alcohol withdrawal with DTs. Improving. Needs continued treatment and monitoring. Qualifiers: Complication of substance-induced condition: with delirium Qualified Code(s): F10.931 - Alcohol use, unspecified with withdrawal delirium (3) Suicidal ideation: Assessment and Plan: Will ask for psych eval once medically cleared. (4) Alcoholic intoxication: Assessment and Plan: P/w alcohol intox. last drink about 72 hours now. Qualifiers: Complication of substance-induced condition: uncomplicated Qualified Code(s): F10.920 - Alcohol use, unspecified with intoxication, uncomplicated (5) Type 2 diabetes mellitus: Assessment and Plan: C/w SSI Qualifiers: Diabetes mellitus [facility] insulin use: without [employer] customer service use Diabetes mellitus complication status: with hyperglycemia Qualified Code(s): E11.65 - Type 2 diabetes mellitus with hyperglycemia (6) Bipolar 1 disorder: Assessment and Plan: c/w home medications (7) HTN (hypertension): Assessment and Plan: C/w norvasc. Clonidine as needed. Qualifiers: Hypertension type: primary hypertension Qualified Code(s): I10 - E ssential (primary) hypertension (8) Hypothyroidism: Assessment and Plan: C/w levothyroxine. Qualifiers: Hypothyroidism type: unspecified Qualified Code(s): E03.9 - Hypothyroidism, unspecified Internal Medicine - PN: Subj Subjective Interval history: Seen and examined. Improving with current treatment. CIWA still quite high - exp eriencing auditory hallucinations. Last measured CIWA after she had just received ativan an hour ago was atleast 14. Her BP and HR has improved. Exam Constitutional Vital Signs, click to edit/add: Last Vital Signs Temp 98.6 F 11/29/23 08:00 Pulse 74 11/29/23 10:00 Resp 10 L 11/29/23 08:10 BP 144/95 H 11/29/23 08:03 Pulse Ox 100 11/29/23 08:03 O2 Del Method Room Air 11/29/23 08:00 General appearance: cooperative, disheveled and lethargic HENMT Common normals: normocephalic and head/scalp atraumatic Respiratory Common normals: normal respiratory effort, no use of accessory muscles and clear to auscultation bilaterally Cardio Common normals: regular rate, regular rhythm, S1 normal heart sound and S2 normal heart sound Extremity Common normals: normal to inspection and full ROM Neuro Common normals: moves all extremities and no focal motor deficits Sensorium/orientation: lethargic and somnolent Speech: speech normal Gait (neuro): unable to assess gait Psych Common normals: denies homicidal ideation and denies suicidal ideation Appearance: disheveled Attitude: other (anxious) Speech: slow Mood and affect: anxious Thought process: confused Thought content: hallucination(s) Attention/concentration: attention grossly impaired and concentration grossly impaired Memory/cognition: memory grossly intact and cognition grossly intact Internal Medicine - PN: Obj Da Labs Labs: Laboratory Results - last 24 hr 11/28/23 11/28/23 11/28/23 11:50 16:18 21:09 WBC RBC Hgb Hct MCV MCH MCHC RDW Plt Count MPV Neut % (Auto) Lymph % (Auto) [place] % (Auto) Eos % (Auto) Baso % (Auto) Neut # (Auto) Lymph # (Auto) [place] # (Auto) Eos # (Auto) Baso # (Auto) Abs Immat Gran (auto) Imm/Tot Granulo (auto) Sodium Potassium Chloride Carbon Dioxide Anion Gap BUN Creatinine Est GFR ( Amer) Est GFR (Non-Af Amer) BUN/Creatinine Ratio Glucose Calcium Total Bilirubin AST ALT Alkaline Phosphatase Total Protein Albumin Globulin Albumin/Globulin Ratio POC Glucose 94 123 H 187 H 11/29/23 11/29/23 05:35 08:06 WBC 3.1 L RBC 3.90 L Hgb 12.5 Hct 36.7 MCV 94.1 MCH 32.1 MCHC 34.1 RDW 12.3 Plt Count 82 L MPV 10.8 Neut % (Auto) 42.9 L Lymph % (Auto) 42.9 [place] % (Auto) 8.1 Eos % (Auto) 3.9 Baso % (Auto) 1.6 Neut # (Auto) 1.3 L Lymph # (Auto) 1.3 [place] # (Auto) 0.3 Eos # (Auto) 0.1 Baso # (Auto) 0.1 Abs Immat Gran (auto) 0.02 Imm/Tot Granulo (auto) 0.6 H Sodium 141 Potassium 3.6 Chloride 104 Carbon Dioxide 25.4 Anion Gap 15.2 BUN 3.0 L Creatinine 0.52 L Est GFR ( Amer) >60 Est GFR (Non-Af Amer) >60 BUN/Creatinine Ratio 5.8 Glucose 116 H Calcium 9.3 Total Bilirubin 1.0 AST 98 H ALT 54 Alkaline Phosphatase 82 Total Protein 6.4 Albumin 3.2 L Globulin 3.2 Albumin/Globulin Ratio 1.0 POC Glucose 106
--- NOTE | 2023-11-29 10:38 | SWNOTE1 ---
Pt is still not medically stable for discharge planning.
[2023-11-29 12:00] LABS: Glucometer 91 mg/dL (74-106)
[2023-11-29] MEDS: DOCUSATE SODIUM 100 MG CAPSULE PO (14:47)
[2023-11-29] MEDS: ACETAMINOPHEN 325 MG TABLET 650 MG PO (14:47)
[2023-11-29] MEDS: PROMETHAZINE HCL 12.5 MG in 0.9 % SODIUM CHLORIDE 50 ML 204 MG IV (16:20)
[2023-11-29 16:48] LABS: Glucometer 122 mg/dL (74-106)
[2023-11-29] MEDS: NICOTINE 21 MG PATCH.TD24 TD (17:23)
[2023-11-29] MEDS: QUETIAPINE FUMARATE 25 MG TABLET PO (20:21)
[2023-11-29] MEDS: ENOXAPARIN SODIUM 40 MG/0.4 ML SYRINGE SUBQ (20:22)
[2023-11-29 20:25] LABS: Glucometer 152 mg/dL (74-106)
[2023-11-30] VITALS (84 sets, daily range): BP systolic 119–183; BP diastolic 78–116; PULSE 64–98; TEMP 36.3–36.9; O2SAT 96–99
[2023-11-30] MEDS: LORAZEPAM 1 MG TABLET 2 MG PO ×3 (00:14→09:38)
[2023-11-30] MEDS: ONDANSETRON PF 4 MG/2 ML VIAL IV (00:14)
[2023-11-30] MEDS: OMEPRAZOLE 40 MG CAPSULE.DR PO (05:05)
[2023-11-30] MEDS: LACTATED RINGER'S SOLUTION 1,000 ML 75 ML IV ×2 (05:06→18:28)
[2023-11-30 05:47] LABS: Basophils Absolute Auto 0.1 10^3/uL (0.0-0.1); Basophils Percent Auto 1.4 % (0.2-2.0); Eosinophils Absolute Auto 0.1 10^3/uL (0.0-0.7); Eosinophils Percent Auto 2.7 % (0.9-7.0); Hematocrit 36.3 % (36.0-48.0); Hemoglobin 12.3 g/dL (12.0-16.0); Immature Granulocytes Abs Auto 0.01 10^3/uL (0.00-0.03); Immature Granulocytes Pct Auto 0.2 % (0.0-0.5); Lymphocytes Absolute Auto 1.8 10^3/uL (1.2-3.8); Lymphocytes Percent Auto 37.2 % (20.5-60.0); Mean Corpuscular HGB Conc 33.9 g/dL (29.9-35.2); Mean Corpuscular Hemoglobin 32.2 pg (26.7-34.0); Mean Platelet Volume 10.4 fL (9.5-13.5); Monocytes Absolute Auto 0.4 10^3/uL (0.3-0.8); Monocytes Percent Auto 8.5 % (1.7-12.0); Neutrophils Absolute Auto 2.4 10^3/uL (1.4-6.5); Platelet Count 87 10^3/uL (150-450); Red Blood Count 3.82 10^6/uL (4.20-5.40); Red Cell Distribution Width 12.5 % (11.0-15.0); White Blood Count 4.8 10^3/uL (4.0-11.0)
[2023-11-30 06:12] LABS: Alanine Aminotransferase 62 U/L (14-59); Albumin Globulin Ratio 0.9; Albumin Level 3.1 g/dL (3.4-5.0); Alkaline Phosphatase 87 U/L (46-116); Aspartate Amino Transferase 81 U/L (15-37); BUN Creatinine Ratio 7.1; Bilirubin Total 0.7 mg/dL (0.2-1.0); Calcium 9.1 mg/dL (8.5-10.1); Carbon Dioxide 26.2 mmol/L (21.0-32.0); Chloride 105 mmol/L (98-107); Estimated GFR (African America >60 (>=60); Estimated GFR (Non-African Ame >60 (>=60); Globulin 3.5 g/dL; Glucose 101 mg/dL (74-106); Potassium 3.2 mmol/L (3.5-5.1); Sodium 141 mmol/L (136-145); Total Protein 6.6 g/dL (6.4-8.2)
[2023-11-30 09:34] LABS: Glucometer 88 mg/dL (74-106)
[2023-11-30] MEDS: LEVOTHYROXINE SODIUM 25 MCG TABLET 50 MCG PO (09:38)
[2023-11-30] MEDS: LOSARTAN POTASSIUM 25 MG TABLET PO (09:38)
[2023-11-30] MEDS: CARBAMAZEPINE 200 MG TABLET PO (09:38)
[2023-11-30] MEDS: AMLODIPINE BESYLATE 5 MG TABLET PO (09:38)
[2023-11-30] MEDS: POTASSIUM CHLORIDE 10 MEQ ER TABLET 40 MEQ PO (09:41)
--- NOTE | 2023-11-30 09:52 | P.IMPN_ITS ---
Progress Note: A&P Assessment and Plan (1) Delirium tremens: Assessment and Plan: Improving. Decrease p.o. Ativan to 1 mg every 4 hours. She still has signs and symptoms of alcohol withdrawal with CIWA of 8-10 (2) Alcohol withdrawal: Assessment and Plan: Improving. Decrease p.o. Ativan to 1 mg every 4 hour. Monitor closely. Qualifiers: Complication of substance-induced condition: with delirium Qualified Code(s): F10.931 - Alcohol use, unspecified with withdrawal delirium (3) Suicidal ideation: Assessment and Plan: Suicidal ideation was likely because of acute alcohol intoxication. She denies any active suicidal ideation and has no plans. I do not believe she truly was suicidal. Continue to assess and make final determination when she is medically for discharge (4) Alcoholic intoxication: Assessment and Plan: Last drink just before her arrival presented with alcohol intoxication. She is now in Alcohol withdrawal Qualifiers: Complication of substance-induced condition: uncomplicated Qualified Code(s): F10.920 - Alcohol use, unspecified with intoxication, uncomplicated (5) Type 2 diabetes mellitus: Assessment and Plan: Continue with sliding scale Qualifiers: Diabetes mellitus senior living insulin use: without senior living use Diabetes mellitus complication status: with hyperglycemia Qualified Code(s): E11.65 - Type 2 diabetes mellitus with hyperglycemia (6) Bipolar 1 disorder: Assessment and Plan: Originally presented with suicidal ideation. Does not appear to be suicidal. Continue to assess and make final determination was medically stable for discharge (7) HTN (hypertension): Assessment and Plan: Continue with home medications Qualifiers: Hypertension type: primary hypertension Qualified Code(s): I10 - Essential (primary) hypertension (8) Hypothyroidism: Assessment and Plan: Continue with levothyroxine Qualifiers: Hypothyroidism type: unspecified Qualified Code(s): E03.9 - Hypothyroidism, unspecified Internal Medicine - PN: Subj Subjective Interval history: Seen and examined. Feeling better today. Hallucinations resolved. Still quite anxious, with nausea, headache and clouded sensorium. Poor PO intake due to nausea. Only getting about 20 % of her daily requirement. Exam Constitutional Vital Signs, click to edit/add: Last Vital Signs Temp 98.5 F 11/30/23 08:00 Pulse 94 H 11/30/23 08:50 Resp 21 H 11/30/23 08:20 BP 145/105 H 11/30/23 08:28 Pulse Ox 97 11/30/23 06:11 O2 Del Method Room Air 11/30/23 08:00 General appearance: cooperative, disheveled and lethargic HENMT Common normals: normocephalic and head/scalp atraumatic Respiratory Common normals: normal respiratory effort, no use of accessory muscles and clear to auscultation bilaterally Cardio Common normals: regular rate, regular rhythm, S1 normal heart sound and S2 normal heart sound Extremity Common normals: normal to inspection and full ROM Neuro Common normals: moves all extremities and no focal motor deficits Sensorium/orientation: lethargic Speech: speech normal Psych Common normals: denies homicidal ideation and denies suicidal ideation Appearance: disheveled Attitude: other (anxious) Speech: slow Mood and affect: anxious Thought process: confused Internal Medicine - PN: Obj Da Labs Labs: Laboratory Results - last 24 hr 11/29/23 11/29/23 11/29/23 11:59 16:46 20:23 WBC RBC Hgb Hct MCV MCH MCHC RDW Plt Count MPV Neut % (Auto) Lymph % (Auto) [place] % (Auto) Eos % (Auto) Baso % (Auto) Neut # (Auto) Lymph # (Auto) [place] # (Auto) Eos # (Auto) Baso # (Auto) Abs Immat Gran (auto) Imm/Tot Granulo (auto) Sodium Potassium Chloride Carbon Dioxide Anion Gap BUN Creatinine Est GFR ( Amer) Est GFR (Non-Af Amer) BUN/Creatinine Ratio Glucose Calcium Total Bilirubin AST ALT Alkaline Phosphatase Total Protein Albumin Globulin Albumin/Globulin Ratio POC Glucose 91 122 H 152 H 11/30/23 11/30/23 05:05 09:32 WBC 4.8 RBC 3.82 L Hgb 12.3 Hct 36.3 MCV 95.0 MCH 32.2 MCHC 33.9 RDW 12.5 Plt Count 87 L MPV 10.4 Neut % (Auto) 50.0 Lymph % (Auto) 37.2 [place] % (Auto) 8.5 Eos % (Auto) 2.7 Baso % (Auto) 1.4 Neut # (Auto) 2.4 Lymph # (Auto) 1.8 [place] # (Auto) 0.4 Eos # (Auto) 0.1 Baso # (Auto) 0.1 Abs Immat Gran (auto) 0.01 Imm/Tot Granulo (auto) 0.2 Sodium 141 Potassium 3.2 L Chloride 105 Carbon Dioxide 26.2 Anion Gap 13.0 BUN 4.0 L Creatinine 0.56 Est GFR ( Amer) >60 Est GFR (Non-Af Amer) >60 BUN/Creatinine Ratio 7.1 Glucose 101 Calcium 9.1 Total Bilirubin 0.7 AST 81 H ALT 62 H Alkaline Phosphatase 87 Total Protein 6.6 Albumin 3.1 L Globulin 3.5 Albumin/Globulin Ratio 0.9 POC Glucose 88
--- NOTE | 2023-11-30 10:24 | CM.NOTE ---
Rounds made with Dr. Cheung. Dr. Cheung discussed need to continue with current treatment plan for another day before potential discharge to home.
[2023-11-30] MEDS: PALIPERIDONE 6 MG 6 EACH PO (11:08)
--- NOTE | 2023-11-30 11:54 | PC.NURSE ---
pt aware of transfer to [facility], she notified . report called to jose juan victoria, transferred in wheelchair with belongings.
[2023-11-30] MEDS: LORAZEPAM 1 MG TABLET PO ×3 (13:21→20:00)
[2023-11-30] MEDS: CLONIDINE HCL 0.1 MG TABLET PO ×2 (13:26→18:28)
[2023-11-30 16:33] LABS: Glucometer 154 mg/dL (74-106)
[2023-11-30] MEDS: NICOTINE 21 MG PATCH.TD24 TD (17:17)
[2023-11-30] MEDS: INSULIN ASPART 300 UNIT/3 ML PEN SUBQ (17:17)
[2023-11-30] MEDS: QUETIAPINE FUMARATE 25 MG TABLET PO (19:59)
[2023-11-30 20:00] LABS: Glucometer 127 mg/dL (74-106)
[2023-11-30] MEDS: ENOXAPARIN SODIUM 40 MG/0.4 ML SYRINGE SUBQ (20:00)
[2023-12-01] VITALS: BP 122/87; PULSE 90; TEMP 36.7; O2SAT 90; O2SAT 98
[2023-12-01] MEDS: LORAZEPAM 1 MG TABLET PO ×4 (00:24→17:05)
[2023-12-01 02:43] VITALS: BP 122/87
[2023-12-01] MEDS: CLONIDINE HCL 0.1 MG TABLET PO (02:43)
[2023-12-01 04:00] VITALS: BP 102/69; PULSE 89; TEMP 36.7; O2SAT 97
[2023-12-01] MEDS: OMEPRAZOLE 40 MG CAPSULE.DR PO (05:43)
[2023-12-01] MEDS: LACTATED RINGER'S SOLUTION 1,000 ML 75 ML IV (06:27)
[2023-12-01 06:29] LABS: Basophils Absolute Auto 0.1 10^3/uL (0.0-0.1); Basophils Percent Auto 1.3 % (0.2-2.0); Eosinophils Absolute Auto 0.1 10^3/uL (0.0-0.7); Eosinophils Percent Auto 2.5 % (0.9-7.0); Hematocrit 36.3 % (36.0-48.0); Hemoglobin 12.4 g/dL (12.0-16.0); Immature Granulocytes Abs Auto 0.01 10^3/uL (0.00-0.03); Immature Granulocytes Pct Auto 0.2 % (0.0-0.5); Lymphocytes Percent Auto 41.3 % (20.5-60.0); Mean Corpuscular HGB Conc 34.2 g/dL (29.9-35.2); Mean Corpuscular Hemoglobin 32.5 pg (26.7-34.0); Mean Corpuscular Volume 95.3 fL (81.0-99.0); Mean Platelet Volume 10.2 fL (9.5-13.5); Monocytes Absolute Auto 0.6 10^3/uL (0.3-0.8); Monocytes Percent Auto 11.8 % (1.7-12.0); Neutrophils Percent Auto 42.9 % (43.0-75.0); Platelet Count 105 10^3/uL (150-450); Red Blood Count 3.81 10^6/uL (4.20-5.40); Red Cell Distribution Width 12.6 % (11.0-15.0); White Blood Count 4.8 10^3/uL (4.0-11.0)
[2023-12-01 06:48] LABS: Alanine Aminotransferase 59 U/L (14-59); Albumin Globulin Ratio 0.9; Albumin Level 3.2 g/dL (3.4-5.0); Alkaline Phosphatase 91 U/L (46-116); Anion Gap 13.2; Aspartate Amino Transferase 69 U/L (15-37); BUN Creatinine Ratio 9.1; Bilirubin Total 0.6 mg/dL (0.2-1.0); Calcium 9.2 mg/dL (8.5-10.1); Carbon Dioxide 25.2 mmol/L (21.0-32.0); Chloride 105 mmol/L (98-107); Estimated GFR (African America >60 (>=60); Estimated GFR (Non-African Ame >60 (>=60); Globulin 3.6 g/dL; Glucose 107 mg/dL (74-106); Potassium 3.4 mmol/L (3.5-5.1); Sodium 140 mmol/L (136-145); Total Protein 6.8 g/dL (6.4-8.2)
[2023-12-01 08:00] VITALS: BP 141/80; PULSE 78; TEMP 36.8; O2SAT 78; O2SAT 99
--- NOTE | 2023-12-01 08:17 | P.PN_ITS ---
Progress Note: Subjective Subjective Interval history: Seen and examined. Feeling better today. Hallucinations resolved. Still quite anxious, with nausea, headache and clouded sensorium. Poor PO intake due to nausea. Only getting about 20 % of her daily requirement. Exam Constitutional Vital Signs, click to edit/add: Last Vital Signs Temp 98.2 F 12/01/23 08:00 Pulse 78 12/01/23 08:00 Resp 20 12/01/23 08:00 BP 141/80 12/01/23 08:00 Pulse Ox 99 12/01/23 08:00 O2 Del Method Room Air 12/01/23 08:00 Progress Note: Objective Labs Labs: Short CBC 12/01/23 Range/Units 05:57 WBC 4.8 (4.0-11.0) 10^3/uL Hgb 12.4 (12.0-16.0) g/dL Hct 36.3 (36.0-48.0) % Plt Count 105 L (150-450) 10^3/uL BMP 12/01/23 05:57 Sodium 140 Potassium 3.4 L Chloride 105 Carbon Dioxide 25.2 BUN 5.0 L Creatinine 0.55 Glucose 107 H Calcium 9.2 Liver Function 12/01/23 Range/Units 05:57 Total Bilirubin 0.6 (0.2-1.0) mg/dL AST 69 H (15-37) U/L ALT 59 (14-59) U/L Alkaline Phosphatase 91 (46-116) U/L Albumin 3.2 L (3.4-5.0) g/dL Progress Note: A&P Assessment and Plan (1) Delirium tremens: (2) Alcohol withdrawal: Qualifiers: Complication of substance-induced condition: with delirium Qualified Code(s): F10.931 - Alcohol use, unspecified with withdrawal delirium (3) Suicidal ideation: (4) Alcoholic intoxication: Qualifiers: Complication of substance-induced condition: uncomplicated Qualified Code(s): F10.920 - Alcohol use, unspecified with intoxication, uncomplicated (5) Type 2 diabetes mellitus: Qualifiers: Diabetes mellitus custodial insulin use: without custodial use Diabetes mellitus complication status: with hyperglycemia Qualified Code(s): E11.65 - Type 2 diabetes mellitus with hyperglycemia (6) Bipolar 1 disorder: (7) HTN (hypertension): Qualifiers: Hypertension type: primary hypertension Qualified Code(s): I10 - Essential (primary) hypertension (8) Hypothyroidism: Qualifiers: Hypothyroidism type: unspecified Qualified Code(s): E03.9 - Hypothyroidism, unspecified
[2023-12-01] MEDS: MAGNESIUM SULFATE IN WATER 2 GM/50 ML PREMIX IV (08:55)
[2023-12-01] MEDS: CARBAMAZEPINE 200 MG TABLET PO (08:58)
[2023-12-01] MEDS: PALIPERIDONE 6 MG 6 EACH PO (08:58)
[2023-12-01] MEDS: LOSARTAN POTASSIUM 25 MG TABLET PO (08:58)
[2023-12-01] MEDS: POTASSIUM CHLORIDE 10 MEQ ER TABLET 20 MEQ PO (08:58)
[2023-12-01] MEDS: LEVOTHYROXINE SODIUM 25 MCG TABLET 50 MCG PO (08:58)
[2023-12-01] MEDS: AMLODIPINE BESYLATE 5 MG TABLET PO (08:58)
[2023-12-01 11:08] VITALS: O2SAT 96
[2023-12-01 11:32] LABS: Glucometer 147 mg/dL (74-106)
[2023-12-01 12:00] VITALS: BP 133/78; PULSE 94; TEMP 36.6; O2SAT 99
--- NOTE | 2023-12-01 13:33 | P.DS_ITS ---
DS: Providers Provider Date of admission: 11/26/23 16:26 Primary care physician: Non-Staff PhysicianMD Attending physician on admission: Shaikh Jonatan Consults: 11/26/23 Consult to Dietitian Routine Reason for consultation: malnutrition scoring Discharging clinician: Caryn Huston DS: Diagnosis Discharge Diagnosis (1) Delirium tremens: (2) Alcohol withdrawal: Qualifiers: Complication of substance-induced condition: with delirium Qualified Code(s): F10.931 - Alcohol use, unspecified with withdrawal delirium (3) Suicidal ideation: (4) Alcoholic intoxication: Qualifiers: Complication of substance-induced condition: uncomplicated Qualified Code(s): F10.920 - Alcohol use, unspecified with intoxication, uncomplicated (5) Type 2 diabetes mellitus: Qualifiers: Diabetes mellitus complication status: with hyperglycemia Diabetes mellitus intermission coordinator insulin use: without intermission coordinator use Qualified Code(s): E11.65 - Type 2 diabetes mellitus with hyperglycemia (6) Bipolar 1 disorder: (7) HTN (hypertension): Qualifiers: Hypertension type: primary hypertension Qualified Code(s): I10 - Essential (primary) hypertension (8) Hypothyroidism: Qualifiers: Hypothyroidism type: unspecified Qualified Code(s): E03.9 - Hypothyroidism, unspecified DS: Summary Hospital Course Hospital Course: Patient was admitted 11/26/23 for acute alcohol intoxication and suicidal ideations with plan to kill herself. She was placed on Ativan, clonidine. She was then treated for active detox with scheduled ATivan. At the time of discharge her CIWA scores are 0 and 2. She feels much improved and is alert and oriented. She has no desire to hurt herself or others. She notes that was the alcohol. She plans to attend AA meetings daily and has good family support at home. She has a birthday alliance party scheduled for her son tomorrow and wishes to go h ome. I have also called and spoke with her , Sae, He plans to support her and attend the AA meetings with her. He has thrown out all alcohol in the house. She has close follow up with her psychiatrist on Sunday. I have discussed with patient and that she is still on scheduled Ativan. I will provide 3 more days of Ativan 1mg BID. When mixed with alcohol this can lead to sedation, respiratory depression and . Both patient and understand the risks and severity. I have also given her PRN Clonidine and Vistaril. She may return to the ER with any worsening signs or symptoms. She will resume all other home medications, keep follow up's. Time Spent with Patient Time attestation: Total time spent providing and/or coordinating discharge services: Exam Narrative Exam Narrative: General: Patient is alert, and oriented to person, place and time with normal affect, proper hygiene Skin: no visible rashes, or ulcers Head: atraumatic, acephalic Eyes: PERRLA, no nystagmus present, conjunctiva clear, no scleral icterus Ears: normal gross auditory acuity Heart: Normal rate and rhythm, no murmurs/rubs/gallops Lungs: no audible wheezes, crackles and normal breath sounds all lung varghese Abdomen: Normal audible bowel sounds, no distension, No palpable masses, no organomegaly, no rebound/guarding/ or rigidity Musculoskeletal:no swelling bilateral lower extremities Neuro: CN II-X grossly intact Constitutional Vital Signs, click to edit/add: Last Vital Signs Temp 98 F 12/01/23 12:00 Pulse 94 H 12/01/23 12:00 Resp 20 12/01/23 12:00 BP 133/78 12/01/23 12:00 Pulse Ox 99 12/01/23 12:00 O2 Del Method Room Air 12/01/23 12:00 DS: Data Data Completed and Pending Labs on day of discharge: Labs from last 24 hours 12/01/23 12/01/23 11/30/23 11:31 05:57 19:58 WBC 4.8 RBC 3.81 L Hgb 12.4 Hct 36.3 MCV 95.3 MCH 32.5 MCHC 34.2 RDW 12.6 Plt Count 105 L MPV 10.2 Neut % (Auto) 42.9 L Lymph % (Auto) 41.3 [place] % (Auto) 11.8 Eos % (Auto) 2.5 Baso % (Auto) 1.3 Neut # (Auto) 2.0 Lymph # (Auto) 2.0 [place] # (Auto) 0.6 Eos # (Auto) 0.1 Baso # (Auto) 0.1 Abs Immat Gran (auto) 0.01 Imm/Tot Granulo (auto) 0.2 Sodium 140 Potassium 3.4 L Chloride 105 Carbon Dioxide 25.2 Anion Gap 13.2 BUN 5.0 L Creatinine 0.55 Est GFR ( Amer) >60 Est GFR (Non-Af Amer) >60 BUN/Creatinine Ratio 9.1 Glucose 107 H Calcium 9.2 Total Bilirubin 0.6 AST 69 H ALT 59 Alkaline Phosphatase 91 Total Protein 6.8 Albumin 3.2 L Globulin 3.6 Albumin/Globulin Ratio 0.9 POC Glucose 147 H 127 H 11/30/23 16:32 WBC RBC Hgb Hct MCV MCH MCHC RDW Plt Count MPV Neut % (Auto) Lymph % (Auto) [place] % (Auto) Eos % (Auto) Baso % (Auto) Neut # (Auto) Lymph # (Auto) [place] # (Auto) Eos # (Auto) Baso # (Auto) Abs Immat Gran (auto) Imm/Tot Granulo (auto) Sodium Potassium Chloride Carbon Dioxide Anion Gap BUN Creatinine Est GFR ( Amer) Est GFR (Non-Af Amer) BUN/Creatinine Ratio Glucose Calcium Total Bilirubin AST ALT Alkaline Phosphatase Total Protein Albumin Globulin Albumin/Globulin Ratio POC Glucose 154 H Discharge Plan Discharge Disposition: Home, Self-Care Condition: Good Discharge Medications: New clonidine HCl 0.1 mg Tablet 0.1 mg PO Q6H PRN (Reason: Alcohol Withdrawal) 5 Days Qty: 20 0RF lorazepam 1 mg Tablet 1 mg PO Q12H 3 Days Qty: 6 0RF hydroxyzine pamoate [Vistaril] 25 mg capsule 25 mg PO Q8H PRN (Reason: anxiety) 5 Days Qty: 15 0RF Continued amlodipine 5 mg tablet 5 mg PO DAILY levothyroxine 50 mcg tablet 50 mcg PO DAILY losartan 25 mg tablet 25 mg PO DAILY omeprazole 40 mg capsule,delayed release(DR/EC) 40 mg PO DAILY paliperidone 6 mg tablet extended release 24hr 6 mg PO DAILY carbamazepine 200 mg tablet 200 mg PO DAILY quetiapine 25 mg tablet 25 mg PO QPM Patient Comments: Patient home med time is 1930 daily. metformin 500 mg tablet extended release 24 hr 500 mg PO DAILY Discontinued clonidine HCl 0.2 mg Tablet 0.1 mg PO Q4H PRN (Reason: Alcohol Withdrawal) Qty: 60 0RF Activity: increase activity as tolerated Diet: advance to your usual diet Print Language: Macanese Patient Instructions: Abuse of Alcohol (DC), Alcohol Withdrawal (DC), Suicide Prevention (DC) Forms: Portal Instructions Follow Up Appointments: Call on Sunday your PCP to follow up within a week Attend AA meeting tomorrow Keep follow up appointment with psychiatrist Sunday12/05/23
--- NOTE | 2023-12-03 15:23 | CM.DCFOLLOWU ---
1st attempt 12/03/23, no answer
--- NOTE | 2023-12-04 13:56 | CM.DCFOLLOWU ---
12/03 2nd attempt. No answer
--- NOTE | 2023-12-05 13:13 | CM.DCFOLLOWU ---
3rd attempt. No answer
== END 2023-12-01 17:24 | disposition home or self-care (01) | DRG 897 ==
LOC: ER 15:23 → ICU 16:38 → MS 11-30 11:52
PROVIDERS: Physician Assistant; Admitting Provider Internal Medicine; Emergency Provider Emergency Medicine; Visit Provider Family Medicine
DX: F10.229 Alcohol dependence with intoxication, unspecified (principal); R45.851 Suicidal ideations; Y90.8 Blood alcohol level of 240 mg/100 ml or more; E11.65 Type 2 diabetes mellitus with hyperglycemia; F31.9 Bipolar disorder, unspecified; I10 Essential (primary) hypertension; F10.231 Alcohol dependence with withdrawal delirium; F10.232 Alcohol dependence with withdrawal with perceptual disturbance; E03.9 Hypothyroidism, unspecified; Z79.890 Hormone replacement therapy; Z79.84 Long term (current) use of oral hypoglycemic drugs; F17.290 Nicotine dependence, other tobacco product, uncomplicated
CPT/HCPCS: 36415; 80053; 80179; 80307; 80320; 80329; 82948; 83735; 84703; 85025; 85610; 87086; 93005; 94761; 96365; 96366; 96367; 96368; 96372; 96375; 96376; 99285; J0360; J1650; J2060; J2250; J2405; J3475

== ENCOUNTER 2024-03-28 13:14 | Inpatient (IN) | payer BC, SELFPAY ==
[2024-03-28] VITALS (40 sets, daily range): BP systolic 130–153; BP diastolic 88–105; PULSE 85–144; TEMP 36.6; O2SAT 95–130; BMI 21.0
[2024-03-28 13:47] LABS: Glucometer 92 mg/dL (74-106)
--- NOTE | 2024-03-28 13:47 | ECG_ITS ---
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
--- NOTE | 2024-03-28 14:06 | ED_ITS ---
HPI HPI - General Adult General Chief complaint: Alcohol Stated complaint: ALCOHOL WITHDRAWAL Time Seen by Provider: 03/28/24 13:46 History of Present Illness HPI narrative: Patient is a 38-year-old female who is presenting to the ER with chief complaint of possible alcohol withdrawal symptoms. Patient states that she has been alcoholic for over 18 years. Patient lives at home with her and 4 children. 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 Patient did not go to work today. Patient states her last drink was 8 AM this morning. Patient feels like she is going through alcohol withdrawal. Patient states that she drinks a large handle, 750 mL of cheap gas station vodka daily. Patient states that she was in rehab for 36 days this past summer at [facility] in October. Patient was admitted to the hospital about 6 or 7 days prior to going to [facility] rehab. Patient wants to stop drinking. Patient is trying to wean herself down from alcohol this week with no success. Patient is anxious, stating that she does not believe that she can with withdrawal at home. Patient was brought to the ER by her mother. Patient initially told staff she does not want to go to rehab, but she wants help treating her symptoms. Patient is not suicidal homicidal. Patient had nausea vomiting this morning, mild shakes. Patient states she knows alcoholism very well, knows her alcohol withdrawal levels very well, has had seizures and DTs in the past. Patient believes that she needs Ativan. All systems are negative except as noted/marked. All systems reviewed and otherwise negative. Nurses note and vital signs reviewed and patient is not hypoxic. General: The patient appears mild distress secondary to agitation, anxiety, and patient smells of alcohol and is intoxicated. Mild slurred speech. Patient is resting uncomfortably on cart. Patient is not toxic, lethargic, or listless Skin: Warm, dry, no pallor noted. There is no rash noted. No petechiae, purpura. Patient is very red to the face, flushed skin. No petechiae, purpura, no rash. Head: Normocephalic, atraumatic Eye: Normal conjunctiva, no drainage, EOMI. PERRL Ears, Nose, Mouth, and Throat: oral mucosa is dry. Nares patent. Mouth without vesicles. Cardiovascular: Tachycardic regular Rate and Rhythm, no murmur, gallop, rub Respiratory: Patient is in no distress, no accessory muscle use, lungs are clear to auscultation, no wheezing, rales or rhonchi Back: non-tender, no CVA tenderness bilaterally to percussion. No CT LS midline pain GI: Mild diffuse tenderness to palpation, no masses appreciated. No rebound, guarding, or rigidity noted. No distention no peritoneal signs.; Musculoskeletal: Patient has full range of motion of all of the extremities, no motor, sensory, or focal neurological deficits Neurological: A&O x4, slurred speech, patient smells of alcohol Psychiatric: Cooperative not suicidal homicidal, patient is tearful, not hallucinating, not psychotic, no significant shaking or DTs at this time. Related Data Home Medications ?Medication ?Instructions ?Recorded ?Confirmed amlodipine 5 mg tablet 5 mg PO DAILY 08/17/23 03/28/24 carbamazepine 200 mg tablet 200 mg PO DAILY 08/17/23 03/28/24 levothyroxine 50 mcg tablet 50 mcg PO DAILY 08/17/23 03/28/24 losartan 25 mg tablet 25 mg PO DAILY 08/17/23 03/28/24 metformin 500 mg tablet,extended 500 mg PO DAILY 08/17/23 03/28/24 release 24 hr omeprazole 40 mg capsule,delayed 40 mg PO DAILY 08/17/23 03/28/24 release paliperidone 6 mg tablet,extended 6 mg PO DAILY 08/17/23 03/28/24 release 24 hr quetiapine 25 mg tablet 25 mg PO QPM 08/17/23 03/28/24 Previous Rx's ?Medication ?Instructions ?Recorded clonidine HCl 0.1 mg tablet 0.1 mg PO Q6H PRN Alcohol 12/01/23 Withdrawal 5 days #20 tabs hydroxyzine pamoate 25 mg capsule 25 mg PO Q8H PRN anxiety 5 days 12/01/23 (Vistaril) #15 caps lorazepam 1 mg tablet 1 mg PO Q12H 3 days #6 tabs 12/01/23 Allergies Allergy/AdvReac Type Severity Reaction Status Date / Time lisinopril Allergy Intermediate Verified 08/17/23 10:08 Opioid HPI Opioid Management Most Recent Opioid Data: Last Pain Scale 3 03/28/24 17:57 03/28/24 Last Pain Assessment 03/28/24 20:02 Last ORT Total Score 5 03/28/24 17:14 03/28/24 Last ORT Risk Category Moderate Risk 03/28/24 17:14 03/28/24 Ur Phencyclidine Scrn Negative (NEGATIVE) 11/27/23 20:34 11/08 PFSH PFSH Medical History (Updated 03/28/24 @ 16:45 by Caryn Huston DO) Alcoholic hepatitis ?K70.10 - Alcoholic hepatitis without ascites (ICD-10) Alcohol abuse ?F10.10 - Alcohol abuse, uncomplicated (ICD-10) Type 2 diabetes mellitus ?E11.9 - Type 2 diabetes mellitus without complications (ICD-10) Bipolar 1 disorder ?F31.9 - Bipolar disorder, unspecified (ICD-10) HTN (hypertension) ?I10 - Essential (primary) hypertension (ICD-10) Abdominal pain ?R10.9 - Unspecified abdominal pain (ICD-10) Hypothyroidism ?E03.9 - Hypothyroidism, unspecified (ICD-10) Family History Sister Family history of hypertension Aunt Alcoholism Uncle Alcoholism Social History Within the past year, how often did you have a drink containing alcohol: 4 or more times a week Within the past year, how many standard drinks containing alcohol did you have on a typical day: 7 to 9 Within the past year, how often did you have six or more drinks on one occasion: daily or almost daily Total score: 10 Score interpretation: A score of 3 or more indicates drinking is likely to affect patient's safety. Smoking status: Current every day smoker Do you use any of these nicotine containing products: vaping products Non-prescribed substance use: denies use Highest level of school completed/degree received: high school graduate Little interest or pleasure in doing things: several days Feeling down, depressed, or hopeless: several days Exam Constitutional Vital Signs, click to edit/add: Last Vital Signs Temp 98 F 03/28/24 17:14 Pulse 130 H 03/28/24 20:02 Resp 12 03/28/24 20:02 BP 146/98 H 03/28/24 20:02 Pulse Ox 98 03/28/24 19:57 O2 Del Method Room Air 03/28/24 19:57 Course Vital Signs Vital signs: Vital Signs Temperature 97.9 F 03/28/24 13:30 Pulse Rate 144 H 03/28/24 13:30 Respiratory Rate 16 03/28/24 13:30 Blood Pressure 130/96 H 03/28/24 13:30 Pulse Oximetry 97 03/28/24 13:30 Oxygen Delivery Method Room Air 03/28/24 13:30 Temperature 98 F 03/28/24 17:14 Pulse Rate 130 H 03/28/24 20:02 Respiratory Rate 12 03/28/24 20:02 Blood Pressure 146/98 H 03/28/24 20:02 Pulse Oximetry 98 03/28/24 19:57 Oxygen Delivery Method Room Air 03/28/24 19:57 Medical Decision Making MDM Narrative Medical decision making narrative: Patient has no significant lab abnormality. Patient was given a Mag-Ox tablet. Patient was recommended to go to rehab for detox, patient initially declined. At the end of her visit she started having some shaking and tremors, no seizure- like activity. Patient had intermittent dry heaving, she was given additional nausea medication. Patient was given Ativan. I did discuss with Dr. Huston admission to the ICU for alcohol withdrawal. She has been admitted to this hospital back in October and was discharged to [facility] rehab. Patient wants to be home for the holidays. Patient is going to be admitted to the hospital. P atient medication was discussed with Dr. Huston, Dr. Huston recommended giving patient IV Ativan at this time. They will trend and follow [facility] protocols. Patient has not been hallucinating, no delirium, not suicidal homicidal, patient tearful, does not want this alcohol life any further and wants to stop drinking to be healthy for her children. Critical care time 32 minutes exclusive from separate billable procedures that were performed. The following was considered in the determination of critical care but not limited to the level of medical decision making, intensive cardiac and/or respiratory monitoring, frequent vital sign monitoring, evaluation of laboratory studies, evaluation of radiographic studies, oxygen monitoring, and constant monitoring and speaking to family at bedside Lab Data Labs: Lab Results 03/28/24 03/28/24 03/28/24 Range/Units 13:37 13:55 13:59 WBC 6.9 (4.0-11.0) 10^3/uL RBC 5.17 (4.20-5.40) 10^6/uL Hgb 16.6 H (12.0-16.0) g/dL Hct 49.3 H (36.0-48.0) % MCV 95.4 (81.0-99.0) fL MCH 32.1 (26.7-34.0) pg MCHC 33.7 (29.9-35.2) g/dL RDW 13.1 (11.0-15.0) % Plt Count 200 (150-450) 10^3/uL MPV 10.1 (9.5-13.5) fL Seg Neuts % (Manual) 84.0 H (43.0-75.0) Lymphocytes % (Manual) 8.0 L (20.5-60.0) % Monocytes % (Manual) 6.0 (1.7-12.0) % Eosinophils % (Manual) 0.0 L (0.9-7.0) % Basophils % (Manual) 2.0 (0.2-2.0) % Neutrophils # (Manual) 5.79 (1.4-6.5) 10^3/uL Lymphocytes # (Manual) 0.55 L (1.20-3.80) 10^3/uL Monocytes # (Manual) 0.41 (0.30-0.80) 10^3/uL Eosinophils # (Manual) 0.00 (0.00-0.70) 10^3/uL Basophils # (Manual) 0.13 H (0.00-0.10) 10^3/uL PT 11.3 (9.0-11.6) sec INR 1.07 Sodium 136 (136-145) mmol/L Potassium 4.0 (3.5-5.1) mmol/L Chloride 93 L (98-107) mmol/L Carbon Dioxide 11.8 L (21.0-32.0) mmol/L Anion Gap 35.2 BUN 15.0 (7.0-18.0) mg/dL Creatinine 1.07 H (0.55-1.02) mg/dL Est GFR ( Amer) >60 (>=60 mL/min/1.73m^2) Est GFR (Non-Af Amer) 57 L (>=60 mL/min/1.73m^2) BUN/Creatinine Ratio 14.0 Glucose 92 (74-106) mg/dL Calcium 8.6 (8.5-10.1) mg/dL Magnesium 1.7 L (1.8-2.4) mg/dL Total Bilirubin 1.2 H (0.2-1.0) mg/dL AST 174 H (15-37) U/L ALT 112 H (14-59) U/L Alkaline Phosphatase 120 H (46-116) U/L Troponin I High Sens 6.5 (4.0-51.3) pg/mL Total Protein 8.2 (6.4-8.2) g/dL Albumin 4.1 (3.4-5.0) g/dL Globulin 4.1 g/dL Albumin/Globulin Ratio 1.0 Lipase 101.0 H (16.0-77.0) U/L Ethanol Quant 440 mg/dL Acetone, Qual Small A (NEGATIVE) POC Glucose 92 (74-106) mg/dL ECG Data Attestation: I personally reviewed and interpreted this ECG as follows: (EKG interpretation. Tachycardic rhythm at 133 beats a minute. Normal axis deviation, no acute ST elevation, no acute ectopy. QTc of 390. ) Discharge Plan Discharge Chief Complaint: Alcohol Clinical Impression: Hypomagnesemia, Alcoholic intoxication Alcohol withdrawal syndrome Qualifiers: Complication of substance-induced condition: uncomplicated Qualified Code(s): F10.930 - Alcohol use, unspecified with withdrawal, uncomplicated Patient Disposition: Admitted As Inpatient Time of Disposition Decision: 16:03 Condition: Serious Discharge Date/Time: 03/28/24 17:05
[2024-03-28 14:12] LABS: Hematocrit 49.3 % (36.0-48.0); Hemoglobin 16.6 g/dL (12.0-16.0); Mean Corpuscular HGB Conc 33.7 g/dL (29.9-35.2); Mean Corpuscular Hemoglobin 32.1 pg (26.7-34.0); Mean Corpuscular Volume 95.4 fL (81.0-99.0); Mean Platelet Volume 10.1 fL (9.5-13.5); Platelet Count 200 10^3/uL (150-450); Red Blood Count 5.17 10^6/uL (4.20-5.40); Red Cell Distribution Width 13.1 % (11.0-15.0); White Blood Count 6.9 10^3/uL (4.0-11.0)
[2024-03-28] MEDS: 0.9 % SODIUM CHLORIDE 1,000 ML 999 ML IV (14:12)
[2024-03-28] MEDS: MULTIVIT INFUSN,ADULT 4,VIT K 10 ML, FOLIC ACID 1 MG, THIAMINE HCL 100 MG in DEXTROSE 5... 250 ML IV (14:22)
[2024-03-28 14:26] LABS: INR 1.07; Prothrombin Time 11.3 sec (9.0-11.6)
[2024-03-28 14:31] LABS: Alanine Aminotransferase 112 U/L (14-59); Albumin Level 4.1 g/dL (3.4-5.0); Alkaline Phosphatase 120 U/L (46-116); Anion Gap 35.2; Aspartate Amino Transferase 174 U/L (15-37); Basophils Abs Manual 0.13 10^3/uL (0.00-0.10); Bilirubin Total 1.2 mg/dL (0.2-1.0); Calcium 8.6 mg/dL (8.5-10.1); Carbon Dioxide 11.8 mmol/L (21.0-32.0); Chloride 93 mmol/L (98-107); Estimated GFR (African America >60 (>=60 mL/min/1.73m^2); Estimated GFR (Non-African Ame 57 (>=60 mL/min/1.73m^2); Ethanol 440 mg/dL; Globulin 4.1 g/dL; Glucose 92 mg/dL (74-106); Lymphocytes Absolute Manual 0.55 10^3/uL (1.20-3.80); Magnesium 1.7 mg/dL (1.8-2.4); Monocytes Absolute Manual 0.41 10^3/uL (0.30-0.80); Segmented Neut Absolute Manual 5.79 10^3/uL (1.4-6.5); Sodium 136 mmol/L (136-145); Total Protein 8.2 g/dL (6.4-8.2)
[2024-03-28 14:33] LABS: Troponin I High Sensitivity 6.5 pg/mL (4.0-51.3)
[2024-03-28] MEDS: PROMETHAZINE HCL 12.5 MG in 0.9 % SODIUM CHLORIDE 50 ML 202 MG IV (15:37)
[2024-03-28] MEDS: MAGNESIUM OXIDE 400 MG TABLET 800 MG PO (15:38)
[2024-03-28] MEDS: LORAZEPAM 2 MG/ML VIAL 1 MG IV (16:14)
--- NOTE | 2024-03-28 16:35 | P.HP_ITS ---
HPI H&P: HPI History of Present Illness Chief complaint: ALCOHOL WITHDRAWAL Narrative: Patient is a 38 y.o White female with past medical history of alcoholism with Delerium Tremens when detoxing and withdrawal seizures, Noninsulin type 2 diabetes, Bipolar type I, Hypertension and hypothyroidism who had her last drink this morning at 8am. She usually drinks a 750mL of Vodka daily. Her alcohol level was 414. She wishes to quit drinking but does not want to go to rehab. She has done a 40 day stay in rehab before and relapsed. She is currently tremulous. She admits to seizures before when she stopped drinking. She has 5 children and is and reports good family support that she would like to quit drinking but no long term care pharmacist plan. ER findings: WBC's 6.9, Hb 16.6, sodium 136, Cr 1.07, mag 1.7, AST 174, ALT 112, TB 1.2 Lipase 101, [place] chest X-ray, ETOH 440; patient was given bananna bag and IV ativan and admitted for acute alcohol intox/detox, acute pancreatitis Opioid HPI Opioid Management Most Recent Pain and Opioid Data: Last Pain Scale 7 11/30/23 13:00 11/30/23 Last ORT Total Score 5 03/28/24 17:14 03/28/24 Last ORT Risk Category Moderate Risk 03/28/24 17:14 03/28/24 Ur Phencyclidine Scrn Negative (NEGATIVE) 11/27/23 20:34 11/08 Review of Systems ROS Narrative ROS: a complete review of systems were reviewed with patient and are positive as below or listed in History of Chief Complaint. General: no fever, chills, night sweats Head: no headache, trauma, visual changes, nausea or vomiting Skin: no reported rashes, itching or sores Eyes: no blurriness of vision Ears: no reported hearing loss, vertigo, earache, or tinnitus Throat: no sore throat, hoarseness, swelling of neck, or tongue pain Heart: no chest pain Lungs: no shortness of breath or cough GI: vomiting/nausea Urinary: no urinary urgency, frequency or pain Neuro: no numbness or tingling HEM: no bleeding issues or bruising ENDO: thyroid problems Psych: bipolar, no anxiety or depression PFSH [facility] Medical History (Updated 03/28/24 @ 16:45 by Caryn Huston DO) Alcoholic hepatitis ?K70.10 - Alcoholic hepatitis without ascites (ICD-10) Alcohol abuse ?F10.10 - Alcohol abuse, uncomplicated (ICD-10) Type 2 diabetes mellitus ?E11.9 - Type 2 diabetes mellitus without complications (ICD-10) Bipolar 1 disorder ?F31.9 - Bipolar disorder, unspecified (ICD-10) HTN (hypertension) ?I10 - Essential (primary) hypertension (ICD-10) Abdominal pain ?R10.9 - Unspecified abdominal pain (ICD-10) Hypothyroidism ?E03.9 - Hypothyroidism, unspecified (ICD-10) Family History Sister Family history of hypertension Aunt Alcoholism Uncle Alcoholism Social History Within the past year, how often did you have a drink containing alcohol: 4 or more times a week Within the past year, how many standard drinks containing alcohol did you have on a typical day: 7 to 9 Within the past year, how often did you have six or more drinks on one occasion: daily or almost daily Total score: 10 Score interpretation: A score of 3 or more indicates drinking is likely to affect patient's safety. Smoking status: Current every day smoker Do you use any of these nicotine containing products: vaping products Non-prescribed substance use: denies use Highest level of school completed/degree received: high school graduate Little interest or pleasure in doing things: several days Feeling down, depressed, or hopeless: several days Meds Home Medications and Allergies Home Medications ?Medication ?Instructions ?Recorded ?Confirmed ?Type amlodipine 5 mg tablet 5 mg PO DAILY 08/17/23 11/26/23 History carbamazepine 200 mg tablet 200 mg PO DAILY 08/17/23 11/26/23 History levothyroxine 50 mcg tablet 50 mcg PO DAILY 08/17/23 11/26/23 History losartan 25 mg tablet 25 mg PO DAILY 08/17/23 11/26/23 History metformin 500 mg tablet,extended 500 mg PO DAILY 08/17/23 11/26/23 History release 24 hr omeprazole 40 mg capsule,delayed 40 mg PO DAILY 08/17/23 11/26/23 History release paliperidone 6 mg tablet,extended 6 mg PO DAILY 08/17/23 11/26/23 History release 24 hr quetiapine 25 mg tablet 25 mg PO QPM 08/17/23 11/27/23 History clonidine HCl 0.1 mg tablet 0.1 mg PO Q6H PRN Alcohol 12/01/23 Rx Withdrawal 5 days #20 tabs hydroxyzine pamoate 25 mg capsule 25 mg PO Q8H PRN anxiety 5 days 12/01/23 Rx (Vistaril) #15 caps lorazepam 1 mg tablet 1 mg PO Q12H 3 days #6 tabs 12/01/23 Rx Allergies Allergy/AdvReac Type Severity Reaction Status Date / Time lisinopril Allergy Intermediate Verified 08/17/23 10:08 Exam Narrative Exam Narrative: General: Patient is alert, and oriented to person, place and time with normal affect, proper hygiene, falls asleep easily Skin: no visible rashes, or ulcers Head: atraumatic, acephalic Eyes: PERRLA, no nystagmus present, conjunctiva clear, no scleral icterus Ears: normal gross auditory acuity Nose: symmetric, no discharge, no maxillary or frontal sinus tenderness Heart: increased rate and normal rhythm, no murmurs/rubs/gallops Lungs: no audible wheezes, crackles and normal breath sounds all lung varghese Abdomen: Normal audible bowel sounds, no distension, No palpable masses, no organomegaly, no rebound/guarding/ or rigidity Musculoskeletal: no swelling bilateral lower extremities Neuro: CN II-X grossly intact Constitutional Vital Signs, click to edit/add: Last Vital Signs Temp 97.9 F 03/28/24 13:30 Pulse 114 H 03/28/24 14:21 Resp 20 03/28/24 14:21 BP 136/96 H 03/28/24 13:47 Pulse Ox 99 03/28/24 14:21 O2 Del Method Room Air 03/28/24 13:30 Results Labs Labs: Short CBC 03/28/24 Range/Units 13:55 WBC 6.9 (4.0-11.0) 10^3/uL Hgb 16.6 H (12.0-16.0) g/dL Hct 49.3 H (36.0-48.0) % Plt Count 200 (150-450) 10^3/uL BMP 03/28/24 13:55 Sodium 136 Potassium 4.0 Chloride 93 L Carbon Dioxide 11.8 L BUN 15.0 Creatinine 1.07 H Glucose 92 Calcium 8.6 Liver Function 03/28/24 Range/Units 13:55 Total Bilirubin 1.2 H (0.2-1.0) mg/dL AST 174 H (15-37) U/L ALT 112 H (14-59) U/L Alkaline Phosphatase 120 H (46-116) U/L Albumin 4.1 (3.4-5.0) g/dL Assessment and Plan Assessment and Plan (1) Alcohol withdrawal syndrome: Assessment and Plan: will place on scheduled ATivan 1mg q4 hours PO and PRN ATivan 2mg IV q4 hours with CIWA >8. patient placed in Seizure precautions. business services assistant consult. Monitor for rapid signs of deterioration, tremors, seizure. Clonidine as needed, Folic acid and thiamine PO. Qualifiers: Complication of substance-induced condition: uncomplicated Qualified Code(s): F10.930 - Alcohol use, unspecified with withdrawal, uncomplicated (2) Pancreatitis: Assessment and Plan: antiemetics as needed along with IVF, lipase was 101 with elevate LFT's Qualifiers: Acute pancreatitis complication: unspecified Chronicity: acute Pancreatitis type: alcohol induced Qualified Code(s): K85.20 - Alcohol induced acute pancreatitis without necrosis or infection (3) Alcoholic hepatitis: Assessment and Plan: AST 174, ALT 112, Will check acute hepatitis panel. Qualifiers: Ascites presence: without ascites Qualified Code(s): K70.10 - Alcoholic hepatitis without ascites (4) Type 2 diabetes mellitus: Assessment and Plan: accuchecks qachs, SSI as needed. Qualifiers: Diabetes mellitus complication status: with hyperglycemia Diabetes mellitus [facility] insulin use: without long term care pharmacist use Qualified Code(s): E11.65 - Type 2 diabetes mellitus with hyperglycemia (5) Bipolar 1 disorder: Assessment and Plan: continue home meds (6) HTN (hypertension): Assessment and Plan: continue losartan, PRN clonidine, amlodipine Qualifiers: Hypertension type: primary hypertension Qualified Code(s): I10 - Essential (primary) hypertension (7) Hypothyroidism: Assessment and Plan: continue levothyroxine Qualifiers: Hypothyroidism type: unspecified Qualified Code(s): E03.9 - Hypothyroidism, unspecified Plan patient is a full code Lovenox for DVT prophylaxis Patient is inpatient status and is being monitored in the ICU given history of seizures and high risk of rapid deterioration.
[2024-03-28 17:08] LABS: Acetone SMALL (NEGATIVE)
--- OUTSIDE RECORDS SUMMARY | 2024-03-28 17:16 | XMS_ITS | CCD ---
Author Organization [facility] Care Team Providers Care Microbial Specialist Name Role Phone [facility] Primary Care Provider DO Hal Orozco Emergency Provider CATIA Blanca Attending Provider MD Delfino Reese Attending Provider [phone] BRADY Mcneill Primary Care Provider [phone] AVERY BLANCA Primary Care Physician [phone] MAGGY WORLEY Consulting Unavailable MISC, DR GOMEZ Primary Care Unavailable MARKER, DR MARVIN Attending Unavailable MARKER, DR MARVIN Admitting Unavailable MARKER, DR MARVIN Consulting Unavailable DEL ROSARIO, GITodd Consulting Unavailable MISC, DR GOMEZ Primary Care Unavailable HOY, DR BRUNO Attending Unavailable HOY, DR BRUNO Admitting Unavailable MCGUIRE, DR DEON Anthony Consulting Unavailable HOY, DR BRUNO Consulting Unavailable HAY, DR MEI Consulting Unavailable MCGUIRE, DR DEON Anthony Consulting Unavailable MCGUIRE, DR DEON Anthony Admitting Unavailable MISC, DR GOMEZ Primary Care Unavailable OBEY, DR DEON Anthony Attending Unavailable Varinder Ang Attending Unavailable Thanh Bal Attending Unavailable DO Judith Mock Attending Unavailable Aung Saldaña Attending Unavailable Becky Gambino Unavailable CATIA Gambino Attending Provider CATIA Blanca Primary Care Provider [phone] CATIA Blanca Attending Provider CATIA Blanca Primary Care Provider MD Jack Kwon Attending Provider [facility] Primary Care Provider CATIA Kerr Emergency Provider [phone] MD Jack Kwon Admit Provider EFFIE Deal Other Provider Unavailable EFFIE Romero Other Provider Unavailable EFFIE Thornton Other Provider Unavailable EFFIE Tom Other Provider Unavailable Mio RN Estella Other Provider Unavailable DO Chandan Whipple Other Provider MD Cisco Calderon Other Provider DO Jaime Alcocer Other Provider MD Srini Chavez Other Provider [phone] MD Ericka Dunn Other Provider MD Cm Escalona Other Provider Unavailable CATIA Bailon Other Provider MD Giuliano Serna Other Provider [phone] MD Albin Smith Other Provider MD Afshin Flores Other Provider MD Viktoria Padilla Other Provider DO Hari Nixon Other Provider MD Sarah Mahajan Other Provider MD Michael Avila Other Provider HUDSON Edwards-Jeannette Jones Other Provider [phone] CATIA Poe Other Provider Unavailable MD Nahum Soni Other Provider MD cSott Lunsford Other Provider MD Ruy Juarez Other Provider MD Maria Isabel Marte Other Provider Unavailable MD Ta Bonner Other Provider DO Mignon Lucero Other Provider DO Huy Escobar Other Provider CATIA Good Other Provider DO Diego Gregg Other Provider MD Carlos Johnson Other Provider CATIA Mcguire Other Provider CATIA Woods Other Provider MD Ashlee Osuna Other Provider MD Dariel Spence Other Provider DangeloDO Ermias forbes T Other Provider [phone] DO Gladys Matthews Other Provider MD Chato Juarez Other Provider MD Delma Kuo Other Provider CATIA Azar Other Provider MD Gurvinder Sosa Other Provider MD Sajan Knapp Other Provider EFFIE Carr Other Provider Unavailable Avery Blanca Primary Care Unavailable Becky Gambino Admitting Unavailable Becky Gambino Attending Unavailable Avery Blanca Attending Unavailable Avery Blanca Admitting Unavailable [facility] Primary Care Unavaila Avery Alejandra Primary Care Unavailable Jack Kwon Attending Unavailab le Argentina Kwonrahman Admitting Unavailab le Doyle Jack Admitting Unavailab Devonte Cartwright Attending Unavailable Mendy [place] Consulting Unavailable [facility] Unavaila ble Gearheart, Nancy Consulting Unavailable Virginia Thornton Consulting Unavailable Marcela Tom Consulting Unavailable Estella Lieberman Consulting Unavailable hCandan Whipple Consulting Unavailable Cisco Calderon Consulting Unavailable Jaime Alcocer Consulting Unavailabl Srini Steinberg Consulting Unavailable Semaskmoriahe, Ericka Consulting Unavailable Cm Escalona Consulting Unavailable Helen Bailon Consulting Unavailabl e WasGiuliano gimenez Consulting Unavailable Albin Smith Consulting Unavailable Flores, Afshin Consulting Unavailable Viktoria Padilla Consulting Unavailable Hari Nixon Consulting Unavailable Sarah Mahajan Consulting Unavailable Michael Avila Consulting Unavailable Nga Edwards Consulting Unavailable Johnie Poe Consulting Unavailable Nahum Soni Consulting UnavailScott Hathaway Consulting Unavailable Ruy Juarez Unavailable Maria Isabel Marte Consulting Unavailable Ta Bonner Consulting Unavailable Mignon Lucero Unavailable Huy Escobar Consulting Unavailable lAmaz Good Consulting Unavailable Diego Gregg Consulting Unavailable Carlos Johnson Consulting Unavailable Paulette Mcguire Consulting Unavailable Martha Woods Consulting Unavailable Ashlee Osuna Consulting Unavailable Dariel Spence Consulting Unavailable Ermias Dangelo Consulting Unavailable Gladys Matthews Consulting Unavailable Chato Juarez Consulting Unavailable Delma Kuo Consulting UnaSunshine Bingham Consulting Unavailable Gurvinder Sosa Consulting Unavailable Sajan Knapp Consulting Unavailable Carlota Carr Consulting Unavailable Unavailable Primary Care Provider Unavailemmy e Allergies Allergy Classification Reported Allergen(s) Allergy Type Date of Onset Reaction(s) Facility (10 sources) Lisinopril; Translations: [Lisinopril] Drug Allergy 2 Swelling of Lip/Tongue/Throa t, Anaphylactic reaction, Unknown [facility] Medications Current Medications Medication Drug Class(es) Dates Sig (Normalized) Sig (Original) acetaminophen 325 mg / HYDROcodone bitartrate 5 mg oral tablet (1 source) Opioid Agonist Start: 02-02-2022 Dumont 325 mg-5 mg oral tablet 1 tab(s), Oral, q6hr for pain, 12 tab(s), Refill(s) 0 Start Date: 02/02/22 Status: Ordered amLODIPine 10 mg oral tablet (20 sources) Dihydropyridine Calcium Channel Kassie Start: 01-22-2024 take 10 mg by mouth once daily Amlodipine Active 10 MG PO Daily January 22, 2024 12:00am Start: 06-13-2023 End: 01-22-2024 take 5 mg by mouth once daily Amlodipine Discontinued 5 MG PO Daily June 13, 2023 1:00am January 22, 2024 12:23pm Start: 02-28-2021 End: 06-13-2023 take 10 mg by mouth once daily Amlodipine Discontinued 10 MG PO Daily February 28, 2021 1:00am June 13, 2023 3:53pm Start: 11-30-2020 End: 02-28-2021 take 5 mg by mouth once daily Amlodipine Discontinued 5 MG PO Daily November 30, 2020 12:00am February 28, 2021 5:04pm atorvastatin 20 mg oral tablet (1 source) HMG-CoA Reductase Inhibitor Start: 01-22-2024 take 20 mg by mouth once daily in the evening Atorvastatin Active 20 MG PO Every evening January 22, 2024 12:00am cholecalciferol 0.125 mg oral capsule (1 source) Vitamin D Start: 01-22-2024 take 125 ug by mouth once daily Cholecalciferol (Vitamin D3) Active 125 MCG PO Daily January 22, 2024 12:00am folic acid 1 mg oral tablet (2 sources) Start: 01-22-2024 take 1 mg by mouth once daily Folic Acid Active 1 MG PO Daily 30 January 22, 2024 12:00am take 1 tablet by marley th every twenty-four hours Folic Acid 1 MG 1 tablet Orally Once a d ay Not-Taking/PRN FreeStyle Parisa 3 Sensor - (1 source) Start: 03-27-2023 FreeStyle Libr e 3 Sensor - as directed in vitro every 14 days for 84 days E11.65 Mar, Active gabapentin 100 mg oral capsule (2 sources) Anti-epileptic Agent Start: 01-22-2024 take 200 mg by mouth three times daily Gabapentin Active 200 MG PO Three times daily 180 January 22, 2024 12:00am take 1 capsule by mo uth every twenty-four hours Gabapentin 300 MG 1 capsule Orally Once a day Not-Taking/PRN hydrOXYzine pamoate 50 mg oral capsule (8 sources) Antihistamine Start: 01-22-2024 take 50 mg by mouth every six hours Hydroxyzine Pamoate Active 50 MG PO Q6H January 22, 2024 12:00am Start: 12-23-2021 End: 01-15-2024 take 50 mg by mouth twice daily Hydroxyzine Pamoate Discontinued 50 MG PO Twice daily December 23, 2021 12:00am January 15, 2024 11:23am lamoTRIgine 25 mg oral tablet (1 source) Mood Stabilizer, Anti-epileptic Agent Start: 01-22-2024 take 25 mg by mouth at bedtime Lamotrigine Active 25 MG PO Bedtime January 22, 2024 12:00am levothyroxine sodium 0.05 mg oral tablet (10 sources) l-Thyroxine Start: 02-28-2021 take 50 ug by mouth once daily Levothyroxine Active 50 MCG PO Daily February 28, 2021 1:00am take 1 capsule by mo ut once daily in the morning Levothyroxine Sodium 50 MCG 1 capsule in the morning on an empty stomach Orally Once a day Active LORazepam 1 mg oral tablet (1 source) Benzodiazepine Start: 01-22-2024 Lorazepam Acti ve 0 .ROUTE .COMPLEX 5 January 22, 2024 12:00am take 1 tablet BID for 2 days and the one tablet once a day for 2 days magnesium oxide 400 mg oral tablet (1 source) Start: 01-22-2024 take 400 mg by mouth twice daily Magnesium Oxide Active 400 MG PO Twice daily January 22, 2024 12:00am mirtazapine 15 mg oral tablet (3 sources) Start: 01-22-2024 take 15 mg by mouth at bedtime Mirtazapine Active 15 MG PO Bedtime January 22, 2024 12:00am Start: 01-15-2024 End: 01-22-2024 take 7.5 mg by mouth at bedtime Mirtazapine Discontinu ed 7.5 MG PO Bedtime January 15, 2024 12:00am January 22, 2024 12:23pm take 1 tablet by marley th every twenty-four hours Mirtazapine 15 MG 1 tablet at bedtime Orally Once a day Not-Taking/PRN Multivitamin With Folic Acid (Thera) 400 mcg Tablet (1 source) Start: 01-22-2024 take 1 tablet by mouth once daily Multivitamin With Folic Acid (Thera) 400 mcg Tablet Active 1 TAB PO Daily January 22, 2024 12:00am naltrexone hydrochloride 50 mg oral tablet (10 sources) Opioid Antagonist Start: 01-15-2024 take 50 mg by mouth once daily Naltrexone Active 50 MG PO Daily January 15, 2024 12:00am Start: 07-12-2021 End: 07-13-2021 take 50 mg by mouth once daily Naltrexone Discontinued 50 MG PO Daily at 0800 July 12, 2021 12:00am July 13, 2021 1:17pm 24 hr nicotine 0.875 mg/hr transdermal system (1 source) Cholinergic Nicotinic Agonist Start: 01-22-2024 Nicotine Active 21 MG TRANSDERML Daily January 22, 2024 12:00am omeprazole 40 mg delayed release oral capsule (14 sources) Proton Pump Inhibitor Start: 02-28-2021 End: 06-14-2023 take 40 mg by mouth once daily Omeprazole Active 40 MG PO Daily June 14, 2023 3:17pm take 1 capsule by mouth once latesha ly PriLOSEC 40 MG 1 capsule 30 minutes before morning meal Orally Once a day Active QUEtiapine 25 mg oral tablet (5 sources) Atypical Antipsychotic Start: 01-22-2024 take 25 mg by mouth twice daily Quetiapine Active 25 MG PO Twice daily 60 January 22, 2024 12:00am Start: 06-13-2023 End: 01-15-2024 take 25 mg by mouth once daily Quetiapine Discontinued 25 MG PO Daily June 13, 2023 1:00am January 15, 2024 11:22am SEROquel Active sulfamethoxazole 800 mg / trimethoprim 160 mg oral tablet (1 source) Dihydrofolate Reductase Inhibitor Antibacterial, Sulfonamide Antimicrobial Start: 02-02-2022 End: 02-12-2022 Bactrim DS 800 mg-160 mg Tab 1 tab(s), Oral, BID for 10 day(s), 20 tab(s), Refill(s) 0 Start Date: 02/02/22 Stop Date: 02/12/22 Status: Ordered thiamine 100 mg oral tablet (1 source) Start: 01-22-2024 take 100 mg by mouth twice daily Thiamine Hcl (Vitamin B1) Active 100 MG PO Twice daily 60 January 22, 2024 12:00am Completed/Discontinued Medications Medication Drug Class(es) Dates Sig (Normalized) Sig (Original) acetaminophen 325 mg / oxyCODONE hydrochloride 5 mg oral tablet (18 sources) Opioid Agonist Start: 08-05-2019 End: 11-30-2020 [...] mg / clavulanate 125 mg oral tablet (9 sources) Penicillin-class Antibacterial Start: 11-06-2021 End: 12-23-2021 take 1 tablet by mouth twice daily Amoxicillin-Pot Clavulanate Discontinued 1 TAB PO Twice daily November 06, 2021 12:00am December 23, 2021 7:49am blood-glucose sensor (FreeStyle Parisa 3 Sensor) (3 sources) Start: 06-13-2023 End: 06-14-2023 blood-glucose sensor (FreeStyle Parisa 3 Sensor) Discontinued .Route June 13, 2023 1:00am June 14, 2023 3:19pm busPIRone hydrochloride 15 mg oral tablet (1 source) take 1 tablet by mouth every twelve hours busPIRone HCl 15 MG 1 tablet Orally Twice a day Not-Taking/PRN cephalexin 500 mg oral capsule (9 sources) Cephalosporin Antibacterial Start: 11-30-2020 End: 02-28-2021 take 500 mg by mouth twice daily Cephalexin Discontinued 500 MG PO Twice daily 14 November 30, 2020 12:00am February 28, 2021 5:01pm chlordiazePOXIDE hydrochloride 25 mg oral capsule (9 sources) Benzodiazepine Start: 07-13-2021 End: 12-23-2021 Chlordiazepoxide Hcl Discontinued 25 MG PO Twice daily 8 July 13, 2021 12:00am December 23, 2021 7:50am 25 BID FOR 1 DAY THEN 25 G ONCE DAILY FOR 3 DAYS THEN STOP dicyclomine hydrochloride 10 mg oral capsule (9 sources) Anticholinergic Start: 11-30-2020 End: 02-28-2021 take 10 mg by mouth three times daily Dicyclomine Discontinued 10 MG PO Three times daily November 30, 2020 12:00am February 28, 2021 5:01pm docusate sodium 100 mg oral capsule (13 sources) Start: 07-11-2021 End: 01-15-2024 take 1 capsule by mouth once daily Docusate Sodium (Colace) 100 mg capsule Discontinued 100 MG PO Daily June 14, 2023 3:16pm January 15, 2024 11:23am ezetimibe 10 mg oral tablet (10 sources) Dietary Cholesterol Absorption Inhibitor Start: 02-28-2021 End: 06-14-2023 take 10 mg by mouth once daily Ezetimibe Discontinued 10 MG PO Daily February 28, 2021 1:00am June 14, 2023 3:17pm ibuprofen 800 mg oral tablet (9 sources) Nonsteroidal Anti-inflammatory Drug Start: 07-30-2017 End: 12-25-2017 take 800 mg by mouth every six hours Ibuprofen Discontinued 800 MG PO Q6H July 30, 2017 12:00am December 25, 2017 3:23am losartan potassium 25 mg oral tablet (13 sources) Angiotensin 2 Receptor Kassie Start: 06-13-2023 [...] 1 tablet Orally Once a day Active 24 hr metFORMIN hydrochloride 500 mg extended release oral tablet (7 sources) Biguanide Start: 08-08-2023 End: 01-15-2024 take 1 tablet by mouth twice daily at dinner Metformin Discontinued 0 .ROUTE .COMPLEX 180 August 08, 2023 3:12pm January 15, 2024 11:22am TAKE 1 TABLET BY MOUTH TWICE A DAY WITH BREAKFAST AND DINNER Start: 06-13-2023 End: 08-08-2023 take 500 mg by mouth twice daily Metformin Discontinued 500 MG PO Twice daily June 13, 2023 1:00am August 08, 2023 3:12pm Start: 03-27-2023 metFORMIN HCl ER 500 MG 1 tablet BID with breakfast and dinner Orally twice daily for 30 days Mar, Active ondansetron 8 mg oral tablet (18 sources) Serotonin-3 Receptor Antagonist Start: 02-28-2021 End: 06-02-2021 take 8 mg by mouth every six hours Ondansetron Hcl Discontinued 8 MG PO Q6H February 28, 2021 1:00am June 02, 2021 10:51am Start: 11-30-2020 End: 02-28-2021 take 4 mg by mouth every six hours Ondansetron Discontinued 4 MG PO Q6H November 30, 2020 12:00am February 28, 2021 5:06pm 24 hr paliperidone 6 mg extended release oral tablet (5 sources) Atypical Antipsychotic Start: 01-15-2024 End: 01-22-2024 take 6 mg by mouth once daily Paliperidone Discontinued 6 MG PO Daily January 15, 2024 12:00am January 22, 2024 12:23pm Start: 06-13-2023 End: 01-15-2024 take 3 mg by mouth once daily Paliperidone Discontinue d 3 MG PO Daily June 13, 2023 1:00am January 15, 2024 11:22am take 1 tablet by marley th every twenty-four hours Invega 3 MG 1 tablet in the morning Orally Once a day Active + DHA 27-1 & 250 MG (1 source) + DHA 2 7-1 & 250 MG as directed Orally Not-Taking/PRN promethazine hydrochloride 25 mg rectal suppository (9 sources) Phenothiazine Start: 11-06-2021 End: 01-15-2024 Promethazine Discontinued 25 MG MT Q6H November 06, 2021 12:00am January 15, 2024 11:23am topiramate 25 mg oral tablet (4 sources) Start: 06-13-2023 End: 06-14-2023 take 1 tablet by mouth once daily Topiramate (Topamax) 25 mg tablet Discontinued 25 MG PO Daily June 13, 2023 1:00am June 14, 2023 3:18pm Topamax Active traMADol hydrochloride 50 mg oral tablet (9 sources) Opioid Agonist Start: 07-13-2021 End: 12-23-2021 take 50 mg by mouth once daily Tramadol Discontinued 50 MG PO Daily 5 July 13, 2021 12:00am December 23, 2021 7:48am 24 hr venlafaxine 37.5 mg extended release oral capsule (10 sources) Serotonin and Norepinephrine Reuptake Inhibitor Start: [...] Date Documented Da te Episodic/Chronic Abdominal pain (13 sources) Abdominal pain; Translations: [Unspecified abdominal pain] Onset: 2 02-28-2021 Episodic Administrative/social admission (5 sources) Dietary counseling and surveillance; Translations: [Patient encounter status] Episodic Alcohol-related disorders (20 sources) Alcohol abuse; Translations: [Alcohol abuse, uncomplicated] Onset: 2 08-03-2019 Chronic Alcohol-related disorders (5 sources) Alcohol intoxication; Translations: [Alcohol use, unspecified with intoxication, unspecified] Onset: 4 01-14-2024 Episodic Anxiety disorders (1 source) Anxiety disorder, unspecified; Translations: [ANXIETY DISORDER UNSPECIFIED] Onset: 2 Chronic Diabetes mellitus with complications (10 sources) Hyperglycemia due to type 2 diabetes mellitus; Translations: [Type 2 diabetes mellitus with hyperglycemia] Onset: 3 Chronic Diabetes or abnormal glucose tolerance complicating ; childbirth; or the puerperium (2 sources) History of gestational diabetes mellitus; Translations: [Personal history of gestational diabetes] Episodic Disorders of lipid metabolism (8 sources) Hyperlipidemia; Translations: [Hyperlipidemia, unspecified] Onset: 4 Chronic Esophageal disorders (1 source) Gastroesophageal reflux disease; Translations: [Gastro-esophageal reflux disease without esophagitis] Chronic Essential hypertension (14 sources) Hypertensive disorder; Translations: [Essential (primary) hypertension] Onset: 2 02-28-2021 Chronic Fluid and electrolyte disorders (12 sources) Acute hypokalemia; Translations: [Hypokalemia] Onset: 4 02-28-2021 Episodic Fracture of upper limb (12 sources) Fracture of distal end of radius; Translations: [Unspecified fracture of the lower end of left radius, initial encounter for closed fracture] 07-30-2017 Episodic Menstrual disorders (1 source) Disorder of menstruation; Translations: [Irregular menstruation, unspecified] Chronic Mood disorders (3 sources) Bipolar disorder, most recent episode depression; Translations: [Bipolar disorder, unspecified] Onset: 4 01-16-2024 Chronic Nausea and vomiting (20 sources) Nausea and vomiting; Translations: [Nausea with vomiting, unspecified] Onset: 2 02-28-2021 Episodic Noninfectious gastroenteritis (10 sources) Colitis; Translations: [Noninfective gastroenteritis and colitis, unspecified] Onset: 2 11-06-2021 Episodic Nutritional deficiencies (8 sources) Vitamin D deficiency; Translations: [Vitamin D deficiency, unspecified] Onset: 4 Chronic Other aftercare (1 source) Other intermediate project manager (current) drug therapy; Translations: [OTH CUSTODIAL CURRENT DRUG THERAPY] Onset: 2 Episodic Other gastrointestinal disorders (1 source) Dysphagia; Translations: [Dysphagia, unspecified] Episodic Other nutritional; endocrine; and metabolic disorders (1 source) Hypomagnesemia; Translations: [Hypomagnesemia] 01-18-2024 Chronic Other nutritional; endocrine; and metabolic disorders (2 sources) Hypomagnesemia; Translations: [Disorders of magnesium metabolism] Onset: 4 01-22-2024 Chronic Pancreatic disorders (not diabetes) (20 sources) Pancreatitis; Translations: [Acute pancreatitis without necrosis or infection, unspecified] 07-09-2021 Episodic Regional enteritis and ulcerative colitis (4 sources) Ulcerative colitis, unspecified, without complications; Translations: [ULCERATIVE COLITIS UNS W/O COMP] Onset: 2 Chronic Residual codes; unclassified (11 sources) Alcoholism; Translations: [Alcohol use disorder] 07-09-2021 Episodic Residual codes; unclassified (2 sources) Body mass index (BMI) 21.0-21.9, adult; Translations: [Body Mass Index between 19-24, adult] Episodic Residual codes; unclassified (3 sources) Body mass index 20-24 - normal; Translations: [Body mass index (BMI) 21.0-21.9, adult] 06-13-2023 Episodic Suicide and intentional self-inflicted injury (4 sources) Suicidal thoughts; Translations: [Suicidal ideations] 01-14-2024 Episodic Thyroid disorders (12 sources) Hypothyroidism; Translations: [Hypothyroidism, unspecified] Onset: 2 02-28-2021 Chronic Unclassified (1 source) CONTACT W/AND (SUSP) EXPOS COVID-19; Translations: [CONTACT W/AND (SUSP) EXPOS COVID-19] Onset: 2 Unclassified (1 source) Alcohol use, unspecified, uncomplicated; Translations: [Alcohol use, unspecified, uncomplicated] Onset: 4 Urinary tract infections (10 sources) Urinary tract infectious disease; Translations: [Urinary tract infection, site not specified] Onset: 2 11-30-2020 Episodic Viral infection (10 sources) Disease caused by 2019-nCoV; Translations: [COVID-19] [...] Test Name Value Interpretation Reference Range Facility Basic Metabolic Panel 01-07 Creatinine Clr Calc Pharmacy 94.82 Normal [facility] Comment on above: Order Comment: DRAWN BY NAYANA Performed By: #### C MP, CBC, ETOH #### [address] GFR/1.73 sq M.predicted MDRD (S/P/Bld) [Vol rate/Area] mL/min/{1.73_m2} Normal [facility] Comment on above: Order Comment: DRAWN BY NAYANA Performed By: #### C MP, CBC, ETOH #### [facility] [address] Calcium [Mass/volume] in Ser um or PlasmaOrdered By: Helen Bailon on 01-20-2024 Calcium [Mass/Vol] 9.3 mg/dL Normal 8.6-10.3 [facility] Comment on above: Order Comment: DRAWN BY MK Performed By: #### C MP, CBC, ETOH #### [facility] [address] Capillary blood glucose archie urement by glucometer (mass/volume)Ordered By: Jack Kwon on 01-20-2024 Glucose [Mass/Vol] 161 mg/dL Normal [facility] Comment on above: Random Glucose Refer ence Range is dependent on time and content of last meal. Glucose of more than 200 mg/dL in a nonstressed, ambulatory subject supports the diagnosis of Diabetes Mellitus. Result Comment: Lilly om Glucose Reference Range is dependent on time and content of last meal. Glucose of more than 200 mg/dL in a nonstressed, ambulatory subject supports the diagnosis of Diabetes Mellitus. PERFORMED BY: [place] [address] PATHOLOGIST MANUSCRIPTS ARCHIVIST OSMEL BLUE M.D. Performed By: #### C MP, CBC, ETOH #### [facility] [address] [place] [address] Carbon dioxide, total [Moles /volume] in Serum or PlasmaOrdered By: Helen Bailon on 01-20-2024 CO2 [Moles/Vol] 22.5 mmol/L Normal 21.0-31.0 [facility] Comment on above: Order Comment: DRAWN BY MK Performed By: #### C MP, CBC, ETOH #### [facility] [address] [place] [address] [place] Chloride [Moles/volume] in S ben or PlasmaOrdered By: Helen Bailon on 01-20-2024 Chloride [Moles/Vol] 107 mmol/L Normal 98-107 [facility] Comment on above: Order Comment: DRAWN BY MK Performed By: #### C MP, CBC, ETOH #### [facility] [address] Creatinine [Mass/volume] in Serum or PlasmaOrdered By: Helen Bailon on 01-20-2024 Creatinine [Mass/Vol] 0.77 mg/dL Normal 0.60-1.20 [facility] Comment on above: Order Comment: DRAWN BY MK Performed By: #### C MP, CBC, ETOH #### [facility] [address] Glucose [Mass/volume] in Ser um or PlasmaOrdered By: Helen Bailon on 01-20-2024 Glucose [Mass/Vol] 98 mg/dL Normal 70-100 [facility] Comment on above: ADA recommended refe rence rangeRandom Glucose Reference Range is dependent on time and content of last meal. Glucose of more than 200 mg/dL in a nonstressed, ambulatory subject supports the diagnosis of Diabetes Mellitus. Order Comment: DRAWN BY MK Result Comment: Lilly om Glucose Reference Range is dependent on time and content of last meal. Glucose of more than 200 mg/dL in a nonstressed, ambulatory subject supports the diagnosis of Diabetes Mellitus. ADA recommended reference range Performed By: #### C MP, CBC, ETOH #### [facility] [address] Magnesium [Mass/volume] in S ben or PlasmaOrdered By: Helen Bailon on 01-20-2024 Magnesium [Mass/Vol] 1.6 mg/dL Low 1.9-2.7 [facility] Comment on above: Order Comment: DRAWN BY Result Comment: PERF ORMED BY: [place] [address] PATHOLOGIST MANUSCRIPTS ARCHIVIST OSMEL BLUE M.D. Performed By: #### C MP, CBC, ETOH #### [facility] [address] No Panel InformationOrdered By: Helen Bailon on 01-20-2024 Estimated GFR (CKD-EPI) > 60.0 mL/Min [facility] Creatinine Clearance (Chem 94.82 [facility] Potassium [Moles/volume] in Serum or PlasmaOrdered By: Helen Uvaldo on 01-20-2024 Potassium [Moles/Vol] 3.9 mmol/L Normal 3.5-5.1 [facility] Comment on above: Order Comment: DRAWN BY MK Performed By: #### C MP, CBC, ETOH #### [facility] [address] Serum or plasma anion gap de terminationOrdered By: Helen Uvaldo on 01-20-2024 Anion gap [Moles/Vol] 13.4 mmol/L Normal 6.0-15.0 [facility] Comment on above: Order Comment: DRAWN BY MK Performed By: #### C MP, CBC, ETOH #### [facility] [address] [place] [address] [place] Sodium [Moles/volume] in Ser um or PlasmaOrdered By: Helen Uvaldo on 01-20-2024 Sodium [Moles/Vol] 139 mmol/L Normal 136-145 [facility] Comment on above: Order Comment: DRAWN BY MK Performed By: #### C MP, CBC, ETOH #### [facility] [address] [place] [address] [place] Urea nitrogen [Mass/volume] in Serum or PlasmaOrdered By: Helen Uvaldo on 01-20-2024 Urea nitrogen [Mass/Vol] 11 mg/dL Normal 7-25 [facility] Comment on above: Order Comment: DRAWN BY MK Performed By: #### C MP, CBC, ETOH #### [facility] [address] [place] [address] [place] A1C with Estimated Average G verotodd 01-19-2024 Glucose [Mass/Vol] 105 mg/dL Normal [facility] Comment on above: Order Comment: Comme nt ok to use previously drawn lab Result Comment: PERF ORMED BY: [place] [address] PATHOLOGIST MANUSCRIPTS ARCHIVIST OSMEL BLUE M.D. Performed By: #### A [address] [facility] eA #### [facility] [address] [place] [address] [place] Alanine aminotransferase [En zymatic activity/volume] in Serum or PlasmaOrdered By: Helentodd Bailon on 01-19-2024 ALT [Catalytic activity/Vol] 76 U/L High 7-52 [facility] Comment on above: Performed By: #### C MP, CBC, ETOH #### [facility] [address] [place] [address] [place] Albumin [Mass/volume] in Ser um or Plasma by Bromocresol green (BCG) dye binding methoOrdered By: Helen Bailon on 01-19-2024 Albumin BCG dye [Mass/Vol] 3.9 g/dL 3.5-5.7 [facility] Alkaline phosphatase [Enzyma tic activity/volume] in Serum or PlasmaOrdered By: Helen Bailon on 01-19-2024 ALP [Catalytic activity/Vol] 80 U/L Normal 34-104 [facility] Comment on above: Performed By: #### C MP, CBC, ETOH #### [facility] [address] Aspartate aminotransferase [ Enzymatic activity/volume] in Serum or PlasmaOrdered By: Helen Bailon on 01-19-2024 AST [Catalytic activity/Vol] 110 U/L High 13-39 [facility] Comment on above: Performed By: #### C MP, CBC, ETOH #### [facility] [address] [place] [address] [place] Bilirubin.total [Mass/volume ] in Serum or PlasmaOrdered By: Helen Bailon on 01-19-2024 Bilirubin [Mass/Vol] 0.7 mg/dL Normal 0.3-1.0 [facility] Comment on above: Performed By: #### C MP, CBC, ETOH #### [facility] [address] [place] [id number] [place] Comprehensive Metabolic Pane mike 01-19-2024 Albumin [Mass/Vol] 3.9 g/dL Normal 3.5-5.7 [facility] Comment on above: Performed By: #### C MP, CBC, ETOH #### [facility] [address] [place] [id number] [place] Anion gap [Moles/Vol] 14.1 mmol/L Normal 6.0-15.0 [facility] Comment on above: Performed By: #### C MP, CBC, ETOH #### [facility] [address] [place] [id number] [place] Calcium [Mass/Vol] 9.3 mg/dL Normal 8.6-10.3 [facility] Comment on above: Performed By: #### C MP, CBC, ETOH #### [facility] [address] [place] [address] [place] Chloride [Moles/Vol] 108 mmol/L High 98-107 [facility] Comment on above: Performed By: #### C MP, CBC, ETOH #### [facility] [address] [place] [address] [place] CO2 [Moles/Vol] 22.1 mmol/L Normal 21.0-31.0 [facility] Comment on above: Performed By: #### C MP, CBC, ETOH #### [facility] [address] [place] [address] [place] Creatinine [Mass/Vol] 0.63 mg/dL Normal 0.60-1.20 [facility] Comment on above: Performed By: #### C MP, CBC, ETOH #### [place] [address] [place] Creatinine Clr Calc Pharmacy 115.90 Normal [facility] Comment on above: Performed By: #### C MP, CBC, ETOH #### [facility] [address] [place] [address] [place] GFR/1.73 sq M.predicted MDRD (S/P/Bld) [Vol rate/Area] mL/min/{1.73_m2} Normal [facility] Comment on above: Performed By: #### C MP, CBC, ETOH #### [facility] [address] [place] [id number] [place] Glucose [Mass/Vol] 85 mg/dL Normal 70-100 [facility] Comment on above: Result Comment: [facility] Glucose Reference Range is dependent on time and content of last meal. Glucose of more than 200 mg/dL in a nonstressed, ambulatory subject supports the diagnosis of Diabetes Mellitus. ADA recommended reference range Performed By: #### C MP, CBC, ETOH #### [facility] [address] Potassium [Moles/Vol] 3.2 mmol/L Low 3.5-5.1 [facility] Comment on above: Performed By: #### C MP, CBC, ETOH #### [facility] [address] [place] [address] [place] Sodium [Moles/Vol] 141 mmol/L Normal 136-145 [facility] Comment on above: Performed By: #### C MP, CBC, ETOH #### [facility] [address] [place] [id number] [place] Urea nitrogen [Mass/Vol] 7 mg/dL Normal 7-25 [facility] Comment on above: Performed By: #### C MP, CBC, ETOH #### [facility] [address] [place] [id number] [place] Folate [Mass/volume] in Seru m or PlasmaOrdered By: Helen Bailon on 01-19-2024 Folate [Mass/Vol] 36.0 ng/mL >5.9 [facility] Comment on above: Folate reference ran ge: >5.9 ng/mlThe WHO technical consultation on folate and vitamin [id number] has determined that folate concentrations lessthan 4 ng/ml are considered deficient. Glucose mean value [Mass/vol ume] in Blood Estimated from glycated hemoglobinOrdered By: Helen Bailon on 01-19-2024 Average glucose Estimated from glycated hemoglobin (Bld) [Mass/Vol] 105 mg/dL [facility] Hemoglobin A1c percentageOrd ered By: Helen Bailon on 01-19-2024 HbA1c (Bld) [Mass fraction] 5.3 % Normal 4.3-5.6 [facility] Comment on above: Increased risk for d iabetes: 5.7 - 6.4diabetes: >6.4glycemic control for adults with diabetes: <7.0 Order Comment: Comme nt ok to use previously drawn lab Result Comment: Incr eased risk for diabetes: 5.7 - 6.4 diabetes: >6.4 glycemic control for adults with diabetes: <7.0 Performed By: #### A 1C [facility] #### [address] Lipase [Enzymatic activity/v olume] in Serum or PlasmaOrdered By: Helen Bailon on 01-19-2024 Lipase [Catalytic activity/Vol] U/L Low 11.0-82.0 [facility] Comment on above: Performed By: #### C MP, CBC, ETOH #### [address] Phosphate [Mass/volume] in S ben or PlasmaOrdered By: Helen Bailon on 01-19-2024 Phosphate [Mass/Vol] 6.4 mg/dL High 2.5-4.5 [facility] Comment on above: Performed By: #### C MP, CBC, ETOH #### [address] Protein [Mass/volume] in Ser um or PlasmaOrdered By: Helen Bailon on 01-19-2024 Protein [Mass/Vol] 6.7 g/dL Normal 6.4-8.9 [facility] Comment on above: Performed By: #### C MP, CBC, ETOH #### [address] Serum globulin measurement b y calculation (mass/volume)Ordered By: Helen Bailon on 01-19-2024 Globulin (S) [Mass/Vol] 2.8 g/dL Normal [facility] Comment on above: Performed By: #### C MP, CBC, ETOH #### [address] Serum or plasma albumin/glob ulin mass ratioOrdered By: Helen Bailon on 01-19-2024 Albumin/Globulin [Mass ratio] 1.4 {ratio} [facility] Comment on above: Performed By: #### C MP, CBC, ETOH #### [address] Vit. B12/Folate Profileon Folate 36.0 ng/mL Normal >5.9 [facility] Comment on above: Result Comment: Dorie te reference range: >5.9 ng/ml The WHO technical consultation on folate and vitamin b12 deficiencies has determined that folate concentrations less than 4 ng/ml are considered deficient. PERFORMED BY: [place] [address] PATHOLOGIST MANUSCRIPTS ARCHIVIST OSMEL BLUE M.D. Performed By: #### C MP, CBC, ETOH #### [address] Vitamin B1 (Thiamine) Bloodo n 01-19-2024 Vitamin B1 (Thiamine) Blood 207.3 High 66.5-200.0 [facility] Comment on above: Result Comment: This test was developed and its performance characteristics determined by [employer]. It has not been cleared or approved by the Food and Drug Administration. Performed at: [address] [id number] Webbing Tacker: Charlie Manriquez MD, Phone: [phone] PERFORMED BY: [place] [address] PATHOLOGIST MANUSCRIPTS ARCHIVIST OSMEL BLUE M.D. Performed By: #### C MP, CBC, ETOH #### [address] Vitamin B12 ser/plasOrdered By: Helen Bailon on 01-19-2024 Cobalamin (Vitamin B12) [Mass/Vol] 392 pg/mL Normal 180-914 [facility] Comment on above: Performed By: #### C MP, CBC, ETOH #### [place] [id number] [facility] Comprehensive Metabolic Pane mike 01-18-2024 Albumin [Mass/Vol] 4.5 g/dL Normal 3.5-5.7 [facility] Comment on above: Performed By: #### C MP, CBC, ETOH #### [place] [address] [place] Albumin/Globulin [Mass ratio] 1.5 {ratio} Normal [facility] Comment on above: Performed By: #### C MP, CBC, ETOH #### [address] ALP [Catalytic activity/Vol] 97 U/L Normal 34-104 [facility] Comment on above: Performed By: #### C MP, CBC, ETOH #### [address] ALT [Catalytic activity/Vol] 66 U/L High 7-52 [facility] Comment on above: Performed By: #### C MP, CBC, ETOH #### [address] Anion gap [Moles/Vol] 14.5 mmol/L Normal 6.0-15.0 [facility] Comment on above: Performed By: #### C MP, CBC, ETOH #### [address] AST [Catalytic activity/Vol] 103 U/L High 13-39 [facility] Comment on above: Performed By: #### C MP, CBC, ETOH #### [place] [address] [place] Bilirubin [Mass/Vol] 0.7 mg/dL Normal 0.3-1.0 [facility] Comment on above: Performed By: #### C MP, CBC, ETOH #### [place] [address] [place] Calcium [Mass/Vol] 10.2 mg/dL Normal 8.6-10.3 [facility] Comment on above: Performed By: #### C MP, CBC, ETOH #### [place] [address] [place] Chloride [Moles/Vol] 105 mmol/L Normal 98-107 [facility] Comment on above: Performed By: #### C MP, CBC, ETOH #### [address] CO2 [Moles/Vol] 23.9 mmol/L Normal 21.0-31.0 [facility] Comment on above: Performed By: #### C MP, CBC, ETOH #### [address] Creatinine [Mass/Vol] 0.66 mg/dL Normal 0.60-1.20 [facility] Comment on above: Performed By: #### C MP, CBC, ETOH #### [address] Creatinine Clr Calc Pharmacy 110.63 Normal [facility] Comment on above: Result Comment: PERF ORMED BY: [place] [address] PATHOLOGIST MANUSCRIPTS ARCHIVIST OSMLE BLUE M.D. Performed By: #### C MP, CBC, ETOH #### [address] GFR/1.73 sq M.predicted MDRD (S/P/Bld) [Vol rate/Area] mL/min/{1.73_m2} Normal [facility] Comment on above: Performed By: #### C MP, CBC, ETOH #### [address] Globulin (S) [Mass/Vol] 3.1 g/dL Normal [facility] Comment on above: Performed By: #### C MP, CBC, ETOH #### [address] Glucose [Mass/Vol] 135 mg/dL High 70-100 [facility] Comment on above: Result Comment: [facility] Glucose Reference Range is dependent on time and content of last meal. Glucose of more than 200 mg/dL in a nonstressed, ambulatory subject supports the diagnosis of Diabetes Mellitus. ADA recommended reference range Performed By: #### C MP, CBC, ETOH #### [address] Potassium [Moles/Vol] 3.4 mmol/L Low 3.5-5.1 [facility] Comment on above: Performed By: #### C MP, CBC, ETOH #### [facility] [address] [place] [address] [place] Protein [Mass/Vol] 7.6 g/dL Normal 6.4-8.9 [facility] Comment on above: Performed By: #### C MP, CBC, ETOH #### [facility] [address] [place] [address] [place] Sodium [Moles/Vol] 140 mmol/L Normal 136-145 [facility] Comment on above: Performed By: #### C MP, CBC, ETOH #### [facility] [address] [place] [address] [place] Urea nitrogen [Mass/Vol] 5 mg/dL Low 7-25 [facility] Comment on above: Performed By: #### C MP, CBC, ETOH #### [facility] [address] Magnesiumon 01-18-2024 Magnesium [Mass/Vol] 1.4 mg/dL Low 1.9-2.7 [facility] Comment on above: Result Comment: PERF ORMED BY: [place] [address] PATHOLOGIST MANUSCRIPTS ARCHIVIST OSMEL BLUE M.D. Performed By: #### C MP, CBC, ETOH #### [place] [address] [place] Cholesterol [Mass/volume] in Serum or PlasmaOrdered By: Jack Kwon on 01-16-2024 Cholesterol [Mass/Vol] 270 mg/dL High 140-200 [facility] Comment on above: Chol less than 200 m g/dl low riskChol 201-239 mg/dl borderline riskChol 240 mg/dl and greater high risk Result Comment: Chol less than 200 mg/dl low risk Chol 201-239 mg/dl borderline risk Chol 240 mg/dl and greater high risk Performed By: #### C MP, CBC, ETOH #### [place] [address] [place] Cholesterol in LDL Calc [Mas s/Vol]Ordered By: Jack Kwon on 01-16-2024 Cholesterol in LDL [Mass/Vol] 134 mg/dL High 0-100 [facility] Comment on above: LDL ATP III CLASSIFI CATIONLDL less than 100 mg/dL OptimalLDL 100-129 mg/dL Near or above optimalLDL 130-159 mg/dL Borderline highLDL 160-189 mg/dL HighLDL greater than 189 mg/dL Very high Cholesterol in VLDL Calc [Ma ss/Vol]Ordered By: Jack Kwon on 01-16-2024 Cholesterol in VLDL [Mass/Vol] 28 mg/dL [facility] ECG 12 lead ECGon 01-16-2024 ECG 12 lead ECG [place] [address] Electrocardiograph Report Signed Patient: Shikha Loera MR#: [id number] : 1985 Acct:[id number] Age/Sex: 38 / F ADM Date: 01/15/24 Loc: Room: [address] [place] [address] Type: ADM IN Attending Dr: Jack Kwon MD Ordering Provider: Jack Kwon MD Date of Service: 01/16/2412/31/499 ECG/ECG 12 lead ECG: routine Copies to: Test Reason : Blood Pressure : */* mmHG Vent. Rate : 92 BPM Atrial Rate : 92 BPM P-R Int : 148 ms QRS Dur : 76 ms QT Int : 374 ms P-R-T Axes : 11 43 34 degrees QTcB Int : 462 ms Normal sinus rhythm Normal ECG Confirmed by Almaz Armando ([id number]) on 01/16/2024 4:49:39 PM Referred By: Electronically Signed By: Almaz Armando Transcribed By: MUS Signed By Almaz Armando MD [phone] Normal [facility] Lipid Panelon 01-16-2024 LDL Cholesterol,Calculated 134 mg/dL High 0-100 [facility] Comment on above: Result Comment: LDL ATP III CLASSIFICATION LDL less than 100 mg/dL Optimal LDL 100-129 mg/dL Near or above optimal LDL 130-159 mg/dL Borderline high LDL 160-189 mg/dL High LDL greater than 189 mg/dL Very high Performed By: #### C MP, CBC, ETOH #### [facility] [address] Triglyceride w/Reflex 143 mg/dL Normal 0-149 [facility] Comment on above: Result Comment: TRIG ATP III CLASSIFICATION TRIG less than 150 mg/dL Normal TRIG 150-199 mg/dL Borderline high TRIG 200-500 mg/dL High TRIG greater than 500 mg/dL Very high Standard traceable to the Center for Disease Conrtrol and Prevention (CDC) test method. Performed By: #### C MP, CBC, ETOH #### [facility] [address] VLDL CHOLESTEROL 28 mg/dL Normal [facility] Comment on above: Performed By: #### C MP, CBC, ETOH #### [facility] [address] Magnesiumon 01-16-2024 Magnesium [Mass/Vol] 1.6 mg/dL Low 1.9-2.7 [facility] Comment on above: Performed By: #### C MP, CBC, ETOH #### [facility] [address] Serum or plasma high density lipoprotein (HDL) cholesterol measurementOrdered By: Jack Kwon on 01-16-2024 Cholesterol in HDL [Mass/Vol] 107 mg/dL High 23-92 [facility] Comment on above: HDL CHOL ATP-III CLA SSIFICATION Cardiovascular RiskHDL > or equal to 60 mg/dL LOWHDL < 40 mg/dL HIGH Result Comment: HDL CHOL ATP-III CLASSIFICATION Cardiovascular Risk HDL > or equal to 60 mg/dL LOW HDL < 40 mg/dL HIGH Performed By: #### C MP, CBC, ETOH #### [facility] [address] Serum or plasma total choles terol/high density lipoprotein (HDL) cholesterol mass ratOrdered By: Jack Kwon on 01-16-2024 Cholesterol.total/Chol esterol in HDL [Mass ratio] 2.5 {ratio} Normal <5.0 [facility] Comment on above: Performed By: #### C MP, CBC, ETOH #### [facility] [address] [place] [id number] [facility] Thyroid Stim Hormone w/Rflxo n 01-16-2024 Thyroid Stim Hormone w/Rflx 3.66 u[iU]/mL Normal 0.45-5.33 [facility] Comment on above: Performed By: #### C MP, CBC, ETOH #### [facility] [address] [place] [id number] [facility] Thyrotropin [Units/volume] i n Serum or PlasmaOrdered By: Jack Kwon on 01-16-2024 TSH Qn 3.66 m[IU]/L 0.45-5.33 [facility] Triglyceride [Mass/volume] i n Serum or PlasmaOrdered By: Jack Kwon on 01-16-2024 Triglyceride [Mass/Vol] 143 mg/dL 0-149 [facility] Comment on above: TRIG ATP III CLASSIF ICATIONTRIG less than 150 mg/dL NormalTRIG 150-199 mg/dL Borderline highTRIG 200-500 mg/dL High TRIG greater than 500 mg/dL Very highStandard traceable to the Center for Disease Conrtrol and Prevention (CDC) test method. Vitamin D 25 Hydroxy Totalon 01-16-2024 Vitamin D 25 Hydroxy Total 12.7 ng/mL Low 30-100 [facility] Comment on above: Result Comment: SANTY MIN D STATUS 25(OH)VITAMIN D RANGE (ng/mL) Deficient <20 Insufficient 20 to <30 Sufficient 30 to 100 Reference: Davey MF,Merlin NC, Morales FOX, et al. Evaluation,treatment, and prevention of vitamin D deficiency; an Endocrine Society clinical practice guideline. JCEM. 2010; 96(7):1911-30. PERFORMED BY: [place] [address] PATHOLOGIST MANUSCRIPTS ARCHIVIST OSMEL BLUE M.D. Performed By: #### C MP, CBC, ETOH #### [facility] [address] [place] [id number] [facility] Vitamin D+Metabolites [Mass/ volume] in Serum or PlasmaOrdered By: Jack Kwon on 01-16-2024 Vitamin D+Metabolites [Mass/Vol] 12.7 ng/mL Low 30-100 [facility] Comment on above: VITAMIN D STATUS 25( OH)VITAMIN D RANGE (ng/mL) Deficient <20 Insufficient 20 to <30Sufficient 30 to 100Reference: Davey MF,Merlin NC, Morales FOX, et al. Evaluation,treatment, and prevention of vitamin D deficiency; an Endocrine Society clinical practice guideline. JCEM. 2010; 96(7):1911-30. Alanine aminotransferase [En zymatic activity/volume] in Serum or PlasmaOrdered By: Libby Kerr on 01-14-2024 ALT [Catalytic activity/Vol] 80 U/L High 7-52 [facility] Comment on above: Performed By: #### C MP, CBC, ETOH #### [facility] [address] [place] [address] [place] Albumin [Mass/volume] in Ser um or Plasma by Bromocresol green (BCG) dye binding methoOrdered By: Libby Kerr on 01-14-2024 Albumin BCG dye [Mass/Vol] 4.6 g/dL 3.5-5.7 [facility] Alkaline phosphatase [Enzyma tic activity/volume] in Serum or PlasmaOrdered By: Libby Kerr on 01-14-2024 ALP [Catalytic activity/Vol] 115 U/L High 34-104 [facility] Comment on above: Result Comment: PERF ORMED BY: [facility] [address] [place] [address] PATHOLOGIST MANUSCRIPTS ARCHIVIST OSMEL BLUE M.D. Performed By: #### C MP, CBC, ETOH #### [facility] [address] [place] [id number] [place] Amphetamine Screen Ql (U)Ord ered By: Libby Kerr on 01-14-2024 Amphetamines Ql (U) Negative Negative [facility] Aspartate aminotransferase [ Enzymatic activity/volume] in Serum or PlasmaOrdered By: Libby Kerr on 01-14-2024 AST [Catalytic activity/Vol] 127 U/L High 13-39 [facility] Comment on above: Performed By: #### C MP, CBC, ETOH #### [address] Automated basophil %Ordered By: Libby Attilamay on 01-14-2024 Basophils/100 WBC (Bld) 3.1 % Normal . [facility] Comment on above: Performed By: #### C MP, CBC, ETOH #### [address] Automated basophil countOrde red By: Libby Attilamay on 01-14-2024 Basophils (Bld) [#/Vol] 0.1 10*3/uL Normal 0.0-0.2 [facility] Comment on above: Result Comment: PERF ORMED BY: [place] [address] PATHOLOGIST MANUSCRIPTS ARCHIVIST OSMEL BLUE M.D. Performed By: #### C MP, CBC, ETOH #### [address] Automated blood monocyte cou ntOrdered By: Libby Attilamay on 01-14-2024 Monocytes (Bld) [#/Vol] 0.2 10*3/uL Normal 0.0-0.8 [facility] Comment on above: Performed By: #### C MP, CBC, ETOH #### [address] Automated eosinophil %Ordere d By: Libby Kerr on 01-14-2024 Eosinophils/100 WBC (Bld) 0.3 % Normal . [facility] Comment on above: Performed By: #### C MP, CBC, ETOH #### [address] Automated eosinophil countOr dered By: Libby Attilamay on 01-14-2024 Eosinophils (Bld) [#/Vol] 0.0 10*3/uL Normal 0.0-0.45 [facility] Comment on above: Performed By: #### C MP, CBC, ETOH #### [address] Automated monocyte %Ordered By: Libby Kerr on 01-14-2024 Monocytes/100 WBC (Bld) 3.1 % Normal . [facility] Comment on above: Performed By: #### C MP, CBC, ETOH #### [facility] [address] Automated neutrophil %Ordere d By: Libby Kerr on 01-14-2024 Neutrophils/100 WBC (Bld) 44.5 % Normal . [facility] Comment on above: Performed By: #### C MP, CBC, ETOH #### [facility] [address] Bacteria [Presence] in Urine by AutomatedOrdered By: Libby Kerr on 01-14-2024 Bacteria Auto Ql (U) 1+ [HPF] High None Seen [facility] Barbiturates [Presence] in U rine by Screen methodOrdered By: Libby Kerr on 01-14-2024 Barbiturates Screen Ql (U) Negative Negative [facility] Benzodiazepines Screen Ql (U )Ordered By: Libby Kerr on 01-14-2024 Benzodiazepines Ql (U) Negative Negative [facility] Benzoylecgonine [Presence] i n Urine by Screen methodOrdered By: Libby Kerr on 01-14-2024 Benzoylecgonine Screen Ql (U) Negative Negative [facility] Bilirubin Test strip Ql (U)O rdered By: Libby Kerr on 01-14-2024 Bilirubin Ql (U) Negative Negative [facility] Bilirubin.total [Mass/volume ] in Serum or PlasmaOrdered By: Libby Kerr on 01-14-2024 Bilirubin [Mass/Vol] 0.6 mg/dL Normal 0.3-1.0 [facility] Comment on above: Performed By: #### C MP, CBC, ETOH #### [facility] [address] [place] [address] [place] Calcium [Mass/volume] in Ser um or PlasmaOrdered By: Libby Kerr on 01-14-2024 Calcium [Mass/Vol] 9.2 mg/dL Normal 8.6-10.3 [facility] Comment on above: Performed By: #### C MP, CBC, ETOH #### [place] [address] [place] Cannabinoids [Presence] in U rine by Screen methodOrdered By: Libby Kerr on 01-14-2024 Cannabinoids Screen Ql (U) Negative Negative [facility] Comment on above: These are unconfirme d results and should not be used for legal purposes. Drug Cut-Off Concentration: AMPH 1000 ng/mL D[place]AS 200 ng/mL DAVID 200 ng/mL COCM 300 ng/mL OP 300 ng/mL PCP 25 ng/mL THC 20 ng/mL Carbon dioxide, total [Moles /volume] in Serum or PlasmaOrdered By: Libby Kerr on 01-14-2024 CO2 [Moles/Vol] 23.5 mmol/L Normal 21.0-31.0 [facility] Comment on above: Performed By: #### C MP, CBC, ETOH #### [place] [address] [place] Chloride [Moles/volume] in S ben or PlasmaOrdered By: Libby Kerr on 01-14-2024 Chloride [Moles/Vol] 102 mmol/L Normal 98-107 [facility] Comment on above: Performed By: #### C MP, CBC, ETOH #### [address] Color of Urine by AutoOrdere d By: Libby Kerr on 01-14-2024 Color (U) Light-yellow Normal Yellow [facility] Comment on above: Order Comment: Name Collection Type:: Clean-Voided Midstream Performed By: #### C MP, CBC, ETOH #### [place] [address] [place] Complete Blood Count Auto Di ffon 01-14-2024 Mean Corpuscular HGB Conc 35.0 g/dL Normal 32.0-35.0 [facility] Comment on above: Performed By: #### C MP, CBC, ETOH #### [place] [address] [place] Monocytes/100 WBC (Bld) 17.74 % Normal 0.00-20.00 [facility] Comment on above: Result Comment: For adults in ED, MDW > 20.0 may be associated with a higher risk of sepsis during the first 12 hrs of hospital admission Performed By: #### C MP, CBC, ETOH #### [address] NRBC% 0.1 /100{WBC} Normal 0-0.5 [facility] Comment on above: Performed By: #### C MP, CBC, ETOH #### [address] Comprehensive Metabolic Pane mike 01-14-2024 Albumin [Mass/Vol] 4.6 g/dL Normal 3.5-5.7 [facility] Comment on above: Performed By: #### C MP, CBC, ETOH #### [address] GFR/1.73 sq M.predicted MDRD (S/P/Bld) [Vol rate/Area] mL/min/{1.73_m2} Normal [facility] Comment on above: Performed By: #### C MP, CBC, ETOH #### [address] Creatinine [Mass/volume] in Serum or PlasmaOrdered By: Libby Kerr on 01-14-2024 Creatinine [Mass/Vol] 0.58 mg/dL Low 0.60-1.20 [facility] Comment on above: Performed By: #### C MP, CBC, ETOH #### [place] [address] [place] Dipstick and Microscopicon 1 Bacteria,Urine 1+ High None Seen [facility] Comment on above: Order Comment: Name Collection Type:: Clean-Voided Midstream Performed By: #### C MP, CBC, ETOH #### [address] Bilirubin,Urine Negative Normal Negative [facility] Comment on above: Order Comment: Name Collection Type:: Clean-Voided Midstream Performed By: #### C MP, CBC, ETOH #### [address] Glucose Ql (U) Normal Normal Normal [facility] Comment on above: Order Comment: Name Collection Type:: Clean-Voided Midstream Performed By: #### C MP, CBC, ETOH #### [facility] [address] [place] [address] [place] Hyaline Casts,Urine 0-8 Normal 0-8 [facility] Comment on above: Order Comment: Name Collection Type:: Clean-Voided Midstream Performed By: #### C MP, CBC, ETOH #### [place] [address] [place] Nitrite,Urine Negative Normal Negative [facility] Comment on above: Order Comment: Name Collection Type:: Clean-Voided Midstream Performed By: #### C MP, CBC, ETOH #### [place] [address] [place] Occult Blood,Urine Negative Normal Negative [facility] Comment on above: Order Comment: Name Collection Type:: Clean-Voided Midstream Performed By: #### C MP, CBC, ETOH #### [address] RBC,Urine 1-2 Normal 0-4 [facility] Comment on above: Order Comment: Name Collection Type:: Clean-Voided Midstream Performed By: #### C MP, CBC, ETOH #### [address] Specificy [place],Urine 1.005 Normal 1.001-1.03 0 [facility] Comment on above: Order Comment: Name Collection Type:: Clean-Voided Midstream Performed By: #### C MP, CBC, ETOH #### [place] [address] [place] Squamous Epithelial Cell,Urine 3-4 High 0-2 [facility] Comment on above: Order Comment: Name Collection Type:: Clean-Voided Midstream Performed By: #### C MP, CBC, ETOH #### [place] [address] [place] Urobilinogen,Urine Normal Normal Normal [facility] Comment on above: Order Comment: Name Collection Type:: Clean-Voided Midstream Performed By: #### C MP, CBC, ETOH #### [place] [address] [place] WBC,Urine 1-2 Normal 0-4 [facility] Comment on above: Order Comment: Name Collection Type:: Clean-Voided Midstream Performed By: #### C MP, CBC, ETOH #### [place] [address] [place] Drug Screen,Urineon 01-14-20 24 Amphetamine Screen,Urine Negative Normal Negative [facility] Comment on above: Performed By: #### C MP, CBC, ETOH #### [address] Barbiturate Screen,Urine Negative Normal Negative [facility] Comment on above: Performed By: #### C MP, CBC, ETOH #### [place] [address] [place] Benzodiazepines Screen,Urine Negative Normal Negative [facility] Comment on above: Performed By: #### C MP, CBC, ETOH #### [address] Cannabinoid Screen,Urine Negative Normal Negative [facility] Comment on above: Result Comment: Thes e are unconfirmed results and should not be used for legal purposes. Drug Cut-Off Concentration: AMPH 1000 ng/mL DALLAS 200 ng/mL DAVID 200 ng/mL COCM 300 ng/mL OP 300 ng/mL PCP 25 ng/mL THC 20 ng/mL PERFORMED BY: [place] [address] PATHOLOGIST [employer]USCRIP[employer] ARCHIVIST OSMEL BLUE M.D. Performed By: #### C MP, CBC, ETOH #### [address] Cocaine Screen,Urine Negative Normal Negative [facility] Comment on above: Performed By: #### C MP, CBC, ETOH #### [facility] [address] Opiate Screen,Urine Negative Normal Negative [facility] Comment on above: Performed By: #### C MP, CBC, ETOH #### [facility] [address] Phencyclidine Screen,Urine Negative Normal Negative [facility] Comment on above: Performed By: #### C MP, CBC, ETOH #### [facility] [address] ECG 12 lead ECGon 01-14-2024 ECG 12 lead ECG [facility] [place] [address] [place] [address] Electrocardiograph Report Signed Patient: Shikha Loera MR#: [id number] : 1985 Acct:[id number] Age/Sex: 38 / F ADM Date: 01/15/24 Loc: Room: [address] [place] [address] Type: ADM IN Attending Dr: Jack Kwon MD Ordering Provider: Libby Kerr APRN Date of Service: 01/14/2410/30/1850 ECG/ECG 12 lead ECG: Psychiatric Symptoms Copies to: Test Reason : Blood Pressure : */* mmHG Vent. Rate : 141 BPM Atrial Rate : 144 BPM P-R Int : 100 ms QRS Dur : 70 ms QT Int : 294 ms P-R-T Axes : 42 43 34 degrees QTcB Int : 450 ms Sinus tachycardia with short MT Otherwise normal ECG When compared with ECG of 14-Feb-2015 09:02, MT interval has decreased Vent. rate has increased by 73 bpm Confirmed by LILIANA MARINA DO ([id number]) on 01/15/2024 4:02:38 PM Referred By: Electronically Signed By: LILIANA MARINA DO Transcribed By: MUS Signed By Liliana Marina DO 01/14 1602 Normal [facility] Epithelial cells.squamous [# /area] in Urine sediment by Automated countOrdered By: Libby Kerr on 01-14-2024 Epithelial cells.squamous Auto (Urine sed) [#/Area] 3-4 [HPF] High 0-2 [facility] Erythrocyte distribution wid th [Ratio] by Automated countOrdered By: Libby Kerr on 01-14-2024 Erythrocyte distribution width (RBC) [Ratio] 13.5 % Normal 11.9-15.3 [facility] Comment on above: Performed By: #### C MP, CBC, ETOH #### [address] Erythrocytes [#/area] in Uri ne sediment by Automated countOrdered By: Libby Kerr on 01-14-2024 RBC Auto (Urine sed) [#/Area] 1-2 [HPF] 0-4 [facility] Erythrocytes [#/volume] in B lood by Automated countOrdered By: Libby Kerr on 01-14-2024 RBC (Bld) [#/Vol] 4.73 10*6/uL Normal 3.60-5.00 [facility] Comment on above: Performed By: #### C MP, CBC, ETOH #### [facility] [address] [place] [address] [place] Ethanol [Mass/volume] in Ser um or PlasmaOrdered By: Libby Kerr on 01-14-2024 Ethanol [Mass/Vol] 456 mg/dL Normal [facility] Comment on above: Performed By: #### C MP, CBC, ETOH #### [address] Ethanol [Mass/Vol] 0.456 % [facility] Ethyl Alcohol Profileon Percent Ethanol 0.456 % Normal [facility] Comment on above: Result Comment: PERF ORMED BY: [place] [address] PATHOLOGIST [employer]IP[employer] ARCHIVIST OSMEL BLUE M.D. Performed By: #### C MP, CBC, ETOH #### [facility] [address] [place] [address] [place] Glucose [Mass/volume] in Ser um or PlasmaOrdered By: Libby Kerr on 01-14-2024 Glucose [Mass/Vol] 107 mg/dL High 70-100 [facility] Comment on above: ADA recommended refe rence rangeRandom Glucose Reference Range is dependent on time and content of last meal. Glucose of more than 200 mg/dL in a nonstressed, ambulatory subject supports the diagnosis of Diabetes Mellitus. Result Comment: Lilly om Glucose Reference Range is dependent on time and content of last meal. Glucose of more than 200 mg/dL in a nonstressed, ambulatory subject supports the diagnosis of Diabetes Mellitus. ADA recommended reference range Performed By: #### C MP, CBC, ETOH #### [address] Glucose [Mass/volume] in Uri ne by Test stripOrdered By: Libby Kerr on 01-14-2024 Glucose Test strip (U) [Mass/Vol] Normal mg/dL Normal [facility] HCG ( test) IA.rapi d Ql (U)Ordered By: Libby Kerr on 01-14-2024 HCG ( test) Ql (U) Negative [facility] HCG,Urineon 01-14-2024 Beta HCG ( test) Ql (U) Negative Normal [facility] Comment on above: Order Comment: Name Collection Type:: Clean-Voided Midstream Result Comment: PERF ORMED BY: [place] [address] PATHOLOGIST [employer]CRIP[employer] ARCHIVIST OSMEL BLUE M.D. Performed By: #### C MP, CBC, ETOH #### [address] Hematocrit [Volume Fraction] of Blood by Automated countOrdered By: Libby Kerr on 01-14-2024 Hematocrit (Bld) [Volume fraction] 43.3 % Normal 34.0-46.4 [facility] Comment on above: Performed By: #### C MP, CBC, ETOH #### [address] Hemoglobin Test strip Ql (U) Ordered By: Libby Kerr on 01-14-2024 Hemoglobin Ql (U) Negative Negative [facility] Hemoglobin [Mass/volume] in BloodOrdered By: Libby Kerr on 01-14-2024 Hemoglobin (Bld) [Mass/Vol] 15.1 g/dL Normal 11.8-15.4 [facility] Comment on above: Performed By: #### C MP, CBC, ETOH #### [facility] [address] [place] [address] [place] Hyaline casts [#/area] in Ur ine sediment by Automated countOrdered By: Libby Kerr on 01-14-2024 Hyaline casts Auto (Urine sed) [#/Area] 0-8 [LPF] 0-8 [facility] Ketones [Presence] in Urine by Test stripOrdered By: Libby Kerr on 01-14-2024 Ketones Ql (U) Negative Normal Negative [facility] Comment on above: Order Comment: Name Collection Type:: Clean-Voided Midstream Performed By: #### C MP, CBC, ETOH #### [facility] [address] [place] [address] [place] Leukocyte esterase [Presence ] in Urine by Test stripOrdered By: Libby Kerr on 01-14-2024 Leukocyte esterase Test strip Ql (U) Negative Normal Negative [facility] Comment on above: Order Comment: Name Collection Type:: Clean-Voided Midstream Performed By: #### C MP, CBC, ETOH #### [facility] [address] [place] [address] [place] Leukocytes [#/area] in Urine sediment by Automated countOrdered By: Libby Kerr on 01-14-2024 WBC Auto (Urine sed) [#/Area] 1-2 [HPF] 0-4 [facility] Leukocytes [#/volume] correc rob for nucleated erythrocytes in Blood by Automated counOrdered By: Libby Kerr on 01-14-2024 WBC corrected for nucl RBC Auto (Bld) [#/Vol] 4.8 10*3/uL 3.8-11.6 [facility] Leukocytes [#/volume] in Blo od by Automated countOrdered By: Libby Kerr on 01-14-2024 WBC (Bld) [#/Vol] 4.8 10*3/uL Normal 3.8-11.6 [facility] Comment on above: Performed By: #### C MP, CBC, ETOH #### [address] Lymphocytes [#/volume] in Bl ood by Automated countOrdered By: Libby Kerr on 01-14-2024 Lymphocytes (Bld) [#/Vol] 2.4 10*3/uL Normal 1.00-4.8 [facility] Comment on above: Performed By: #### C MP, CBC, ETOH #### [address] Lymphocytes/100 leukocytes i n Blood by Automated countOrdered By: Libby Kerr on 01-14-2024 Lymphocytes/100 WBC (Bld) 49.0 % Normal . [facility] Comment on above: Performed By: #### C MP, CBC, ETOH #### [address] MCH [Entitic mass] by Automa rob countOrdered By: Libby Kerr on 01-14-2024 MCH (RBC) [Entitic mass] 32.0 pg Normal 24.7-34.3 [facility] Comment on above: Performed By: #### C MP, CBC, ETOH #### [address] MCHC Auto (RBC) [Mass/Vol]Or dered By: Libby Kerr on 01-14-2024 MCHC (RBC) [Mass/Vol] 35.0 g/dL 32.0-35.0 [facility] MCV [Entitic volume] by Auto mated countOrdered By: Libby Kerr on 01-14-2024 MCV (RBC) [Entitic vol] 91.4 fL Normal 80-100 [facility] Comment on above: Performed By: #### C MP, CBC, ETOH #### [address] Monocyte distribution width [Entitic volume] in Blood by AutomatedOrdered By: Libby Kerr on 01-14-2024 Monocyte distribution width Auto (Bld) [Entitic vol] 17.74 % 0.00-20.00 [facility] Comment on above: For adults in ED, MD W > 20.0 may be associated with a higher risk of sepsis during the first 12 hrs of hospital admission Neutrophils [#/volume] in Bl ood by Automated countOrdered By: Libby Kerr on 01-14-2024 Neutrophils (Bld) [#/Vol] 2.2 10*3/uL Normal 1.8-7.7 [facility] Comment on above: Performed By: #### C MP, CBC, ETOH #### [facility] [address] Nitrite Test strip Ql (U)Ord ered By: Libby Kerr on 01-14-2024 Nitrite Ql (U) Negative Negative [facility] No Panel InformationOrdered By: Libby Kerr on 01-14-2024 Estimated GFR (CKD-EPI) > 60.0 mL/Min [facility] Creatinine Clearance (Chem N/A [facility] Nucleated erythrocytes [Pres ence] in Blood by Automated countOrdered By: Libby Kerr on 01-14-2024 Nucleated RBC Auto Ql (Bld) 0.1 /100{WBC} 0-0.5 [facility] Opiates [Presence] in Urine by Screen methodOrdered By: Libby Kerr on 01-14-2024 Opiates Screen Ql (U) Negative Negative [facility] Phencyclidine Screen Ql (U)O rdered By: Libby Kerr on 01-14-2024 Phencyclidine Ql (U) Negative Negative [facility] Platelet mean volume [Entiti c volume] in Blood by Automated countOrdered By: Libby Kerr on 01-14-2024 Platelet mean volume (Bld) [Entitic vol] 7.5 fL Normal 6.3-10.7 [facility] Comment on above: Performed By: #### C MP, CBC, ETOH #### [facility] [address] Platelets [#/volume] in Bloo d by Automated countOrdered By: Libby Kerr on 01-14-2024 Platelets (Bld) [#/Vol] 192 10*3/uL Normal 150-450 [facility] Comment on above: Performed By: #### C MP, CBC, ETOH #### [facility] [address] [place] [address] [place] Potassium [Moles/volume] in Serum or PlasmaOrdered By: Libby Kerr on 01-14-2024 Potassium [Moles/Vol] 3.6 mmol/L Normal 3.5-5.1 [facility] Comment on above: Performed By: #### C MP, CBC, ETOH #### [place] [address] [place] Protein [Mass/volume] in Ser um or PlasmaOrdered By: Libby Kerr on 01-14-2024 Protein [Mass/Vol] 8.2 g/dL Normal 6.4-8.9 [facility] Comment on above: Performed By: #### C MP, CBC, ETOH #### [place] [address] [place] Protein [Mass/volume] in Uri ne by Test stripOrdered By: Libby Kerr on 01-14-2024 Protein (U) [Mass/Vol] 20 mg/dL High Negative [facility] Comment on above: Order Comment: Name Collection Type:: Clean-Voided Midstream Performed By: #### C MP, CBC, ETOH #### [address] Serum globulin measurement b y calculation (mass/volume)Ordered By: Libby Kerr on 01-14-2024 Globulin (S) [Mass/Vol] 3.6 g/dL [facility] Comment on above: Performed By: #### C MP, CBC, ETOH #### [address] Serum or plasma albumin/glob ulin mass ratioOrdered By: Libby Kerr on 01-14-2024 Albumin/Globulin [Mass ratio] 1.3 {ratio} [facility] Comment on above: Performed By: #### C MP, CBC, ETOH #### [address] Serum or plasma anion gap de terminationOrdered By: Libby Kerr on 01-14-2024 Anion gap [Moles/Vol] 21.1 mmol/L High 6.0-15.0 [facility] Comment on above: Performed By: #### C MP, CBC, ETOH #### [facility] [address] Sodium [Moles/volume] in Ser um or PlasmaOrdered By: Libby Kerr on 01-14-2024 Sodium [Moles/Vol] 143 mmol/L Normal 136-145 [facility] Comment on above: Performed By: #### C MP, CBC, ETOH #### [facility] [address] [place] [address] Specific gravity Test strip (U) [Rel density]Ordered By: Libby Kerr on 01-14-2024 Specific gravity (U) [Rel density] 1.005 1.001-1.03 0 [facility] Urea nitrogen [Mass/volume] in Serum or PlasmaOrdered By: Libby Kerr on 01-14-2024 Urea nitrogen [Mass/Vol] 3 mg/dL Low 7-25 [facility] Comment on above: Performed By: #### C MP, CBC, ETOH #### [facility] [address] [place] [address] Urine appearanceOrdered By: Libby Kerr on 01-14-2024 Appearance (U) Cloudy Critically abnormal Clear [facility] Comment on above: Order Comment: Name Collection Type:: Clean-Voided Midstream Performed By: #### C MP, CBC, ETOH #### [address] Urobilinogen Test strip (U) [Mass/Vol]Ordered By: Libby Kerr on 01-14-2024 Urobilinogen (U) [Mass/Vol] Normal mg/dL Normal [facility] pH of Urine by Test stripOrd ered By: Libby Kerr on 01-14-2024 pH (U) 5.5 [pH] Normal 5.0-9.0 [facility] Comment on above: Order Comment: Name Collection Type:: Clean-Voided Midstream Performed By: #### C MP, CBC, ETOH #### [facility] [address] [place] [address] [place] URINE CULTURE, ROUTINEon Bacteria identified Cx Nom (U) Urine Culture, Routine [facility] Bacteria identified Cx Nom (U) Mixed urogenital maricel [facility] Bacteria identified Cx Nom (U) Less than 10,000 colonies/mL [facility] Bacteria identified Cx Nom (U) Performed at: [facility] Bacteria identified Cx Nom (U) [address], [place] [id number] [facility] Bacteria identified Cx Nom (U) Webbing Tacker: Torsten Vidal PhD, Phone: [phone] [facility] Alanine aminotransferase [En zymatic activity/volume] in Serum or PlasmaOrdered By: Avery Blanca on 08-14-2023 ALT [Catalytic activity/Vol] 29 U/L Normal 7-52 [facility] Comment on above: Order Comment: Qian brooks for Exam Benign essential hypertension Performed By: #### T SH3 wRFLX, LIPID, CBC, CMP #### [facility] [address] [place] [address] [place] Albumin [Mass/volume] in Ser um or Plasma by Bromocresol green (BCG) dye binding methoOrdered By: Avery Blanca on 08-14-2023 Albumin BCG dye [Mass/Vol] 4.8 g/dL 3.5-5.7 [facility] Alkaline phosphatase [Enzyma tic activity/volume] in Serum or PlasmaOrdered By: Avery Blanca on 08-14-2023 ALP [Catalytic activity/Vol] 82 U/L Normal 34-104 [facility] Comment on above: Order Comment: Reaso n for Exam Benign essential hypertension Performed By: #### T SH3 wRFLX, LIPID, CBC, CMP #### [facility] [address] [place] [address] [place] Aspartate aminotransferase [ Enzymatic activity/volume] in Serum or PlasmaOrdered By: Avery Blanca on 08-14-2023 AST [Catalytic activity/Vol] 78 U/L High 13-39 [facility] Comment on above: Order Comment: Reaso n for Exam Benign essential hypertension Performed By: #### T SH3 wRFLX, LIPID, CBC, CMP #### [facility] [address] [place] [address] Automated basophil %Ordered By: Avery Blanca on 08-14-2023 Basophils/100 WBC (Bld) 1.9 % Normal . [facility] Comment on above: Order Comment: Reaso n for Exam Benign essential hypertension Performed By: #### T SH3 wRFLX, LIPID, CBC, CMP #### [address] Automated basophil countOrde red By: Avery Blanca on 08-14-2023 Basophils (Bld) [#/Vol] 0.1 10*3/uL Normal 0.0-0.2 [facility] Comment on above: Order Comment: Reaso n for Exam Benign essential hypertension Result Comment: PERF ORMED BY: [place] [address] PATHOLOGIST [employer]USCRIP[employer] ARCHIVIST OSMEL BLUE M.D. Performed By: #### T SH3 wRFLX, LIPID, CBC, CMP #### [address] Automated blood monocyte cou ntOrdered By: Avery Blanca on 08-14-2023 Monocytes (Bld) [#/Vol] 0.4 10*3/uL Normal 0.0-0.8 [facility] Comment on above: Order Comment: Reaso n for Exam Benign essential hypertension Performed By: #### T SH3 wRFLX, LIPID, CBC, CMP #### [facility] [address] [place] [address] Automated eosinophil %Ordere d By: Avery Blanca on 08-14-2023 Eosinophils/100 WBC (Bld) 1.0 % Normal . [facility] Comment on above: Order Comment: Reaso n for Exam Benign essential hypertension Performed By: #### T SH3 wRFLX, LIPID, CBC, CMP #### [facility] [address] [place] [address] Automated eosinophil countOr dered By: Avery Blanca on 08-14-2023 Eosinophils (Bld) [#/Vol] 0.0 10*3/uL Normal 0.0-0.45 [facility] Comment on above: Order Comment: Reaso n for Exam Benign essential hypertension Performed By: #### T SH3 wRFLX, LIPID, CBC, CMP #### [facility] [address] [place] [address] [place] Automated monocyte %Ordered By: Avery Blanca on 08-14-2023 Monocytes/100 WBC (Bld) 11.5 % Normal . [facility] Comment on above: Order Comment: Reaso n for Exam Benign essential hypertension Performed By: #### T SH3 wRFLX, LIPID, CBC, CMP #### [facility] [address] Automated neutrophil %Ordere d By: Avery Blanca on 08-14-2023 Neutrophils/100 WBC (Bld) 57.8 % Normal . [facility] Comment on above: Order Comment: Reaso n for Exam Benign essential hypertension Performed By: #### T SH3 wRFLX, LIPID, CBC, CMP #### [facility] [address] [place] [address] [place] Bilirubin.total [Mass/volume ] in Serum or PlasmaOrdered By: Avery Blanca on 08-14-2023 Bilirubin [Mass/Vol] 0.5 mg/dL Normal 0.3-1.0 [facility] Comment on above: Order Comment: Reaso n for Exam Benign essential hypertension Performed By: #### T SH3 wRFLX, LIPID, CBC, CMP #### [facility] [address] [place] [address] [place] Calcium [Mass/volume] in Ser um or PlasmaOrdered By: Avery Blanca on 08-14-2023 Calcium [Mass/Vol] 9.6 mg/dL Normal 8.6-10.3 [facility] Comment on above: Order Comment: Reaso n for Exam Benign essential hypertension Performed By: #### T SH3 wRFLX, LIPID, CBC, CMP #### [facility] [address] [place] [address] [place] Carbon dioxide, total [Moles /volume] in Serum or PlasmaOrdered By: Avery Blanca on 08-14-2023 CO2 [Moles/Vol] 24.7 mmol/L Normal 21.0-31.0 [facility] Comment on above: Order Comment: Reaso n for Exam Benign essential hypertension Performed By: #### T SH3 wRFLX, LIPID, CBC, CMP #### [facility] [address] [place] [id number] [place] Chloride [Moles/volume] in S ben or PlasmaOrdered By: Avery Blanca on 08-14-2023 Chloride [Moles/Vol] 95 mmol/L Low 98-107 [facility] Comment on above: Order Comment: Reaso n for Exam Benign essential hypertension Performed By: #### T SH3 wRFLX, LIPID, CBC, CMP #### [facility] [address] [place] [address] [place] Cholesterol [Mass/volume] in Serum or PlasmaOrdered By: Avery Blanca on 08-14-2023 Cholesterol [Mass/Vol] 333 mg/dL High 140-200 [facility] Comment on above: Chol less than 200 m g/dl low riskChol 201-239 mg/dl borderline riskChol 240 mg/dl and greater high risk Order Comment: Reaso n for Exam Benign essential hypertension Result Comment: Chol less than 200 mg/dl low risk Chol 201-239 mg/dl borderline risk Chol 240 mg/dl and greater high risk Performed By: #### T SH3 wRFLX, LIPID, CBC, CMP #### [facility] [address] [place] [address] [place] Cholesterol in LDL Calc [Mas s/Vol]Ordered By: Avery Blanca on 08-14-2023 Cholesterol in LDL [Mass/Vol] 181 mg/dL 0-100 [facility] Comment on above: LDL ATP III CLASSIFI CATIONLDL less than 100 mg/dL OptimalLDL 100-129 mg/dL Near or above optimalLDL 130-159 mg/dL Borderline highLDL 160-189 mg/dL HighLDL greater than 189 mg/dL Very high Cholesterol in VLDL Calc [Ma ss/Vol]Ordered By: Avery Blanca on 08-14-2023 Cholesterol in VLDL [Mass/Vol] 22 mg/dL [facility] Complete Blood Count Auto Di ffon 08-14-2023 Mean Corpuscular HGB Conc 34.2 g/dL Normal 32.0-35.0 [facility] Comment on above: Order Comment: Reaso n for Exam Benign essential hypertension Performed By: #### T SH3 wRFLX, LIPID, CBC, CMP #### [address] NRBC% 0.3 /100{WBC} Normal 0-0.5 [facility] Comment on above: Order Comment: Reaso n for Exam Benign essential hypertension Performed By: #### T SH3 wRFLX, LIPID, CBC, CMP #### [address] Comprehensive Metabolic Pane mike 08-14-2023 Albumin [Mass/Vol] 4.8 g/dL Normal 3.5-5.7 [facility] Comment on above: Order Comment: Reaso n for Exam Benign essential hypertension Performed By: #### T SH3 wRFLX, LIPID, CBC, CMP #### [address] GFR/1.73 sq M.predicted MDRD (S/P/Bld) [Vol rate/Area] mL/min/{1.73_m2} Normal [facility] Comment on above: Order Comment: Reaso n for Exam Benign essential hypertension Performed By: #### T SH3 wRFLX, LIPID, CBC, CMP #### [address] Creatinine [Mass/volume] in Serum or PlasmaOrdered By: Avery Blanca on 08-14-2023 Creatinine [Mass/Vol] 0.48 mg/dL Low 0.60-1.20 [facility] Comment on above: Order Comment: Reaso n for Exam Benign essential hypertension Performed By: #### T SH3 wRFLX, LIPID, CBC, CMP #### [facility] [address] [place] [address] Erythrocyte distribution wid th [Ratio] by Automated countOrdered By: Avery Blanca on 08-14-2023 Erythrocyte distribution width (RBC) [Ratio] 14.2 % Normal 11.9-15.3 [facility] Comment on above: Order Comment: Reaso n for Exam Benign essential hypertension Performed By: #### T SH3 wRFLX, LIPID, CBC, CMP #### [facility] [address] [place] [address] [place] Erythrocytes [#/volume] in B lood by Automated countOrdered By: Avery Blanca on 08-14-2023 RBC (Bld) [#/Vol] 4.03 10*6/uL Normal 3.60-5.00 [facility] Comment on above: Order Comment: Reaso n for Exam Benign essential hypertension Performed By: #### T SH3 wRFLX, LIPID, CBC, CMP #### [facility] [address] [place] [address] [place] Glucose [Mass/volume] in Ser um or PlasmaOrdered By: Avery Blanca on 08-14-2023 Glucose [Mass/Vol] 102 mg/dL High 70-100 [facility] Comment on above: ADA recommended refe rence rangeRandom Glucose Reference Range is dependent on time and content of last meal. Glucose of more than 200 mg/dL in a nonstressed, ambulatory subject supports the diagnosis of Diabetes Mellitus. Order Comment: Reaso n for Exam Benign essential hypertension Result Comment: Lilly om Glucose Reference Range is dependent on time and content of last meal. Glucose of more than 200 mg/dL in a nonstressed, ambulatory subject supports the diagnosis of Diabetes Mellitus. ADA recommended reference range Performed By: #### T SH3 wRFLX, LIPID, CBC, CMP #### [facility] [address] [place] [address] [place] Hematocrit [Volume Fraction] of Blood by Automated countOrdered By: Avery Blanca on 08-14-2023 Hematocrit (Bld) [Volume fraction] 39.2 % Normal 34.0-46.4 [facility] Comment on above: Order Comment: Reaso n for Exam Benign essential hypertension Performed By: #### T SH3 wRFLX, LIPID, CBC, CMP #### [facility] [address] [place] [address] [place] Hemoglobin [Mass/volume] in BloodOrdered By: Avery Blanca on 08-14-2023 Hemoglobin (Bld) [Mass/Vol] 13.4 g/dL Normal 11.8-15.4 [facility] Comment on above: Order Comment: Reaso n for Exam Benign essential hypertension Performed By: #### T SH3 wRFLX, LIPID, CBC, CMP #### [facility] [address] Leukocytes [#/volume] correc rob for nucleated erythrocytes in Blood by Automated counOrdered By: Avery Blanca on 08-14-2023 WBC corrected for nucl RBC Auto (Bld) [#/Vol] 3.8 10*3/uL 3.8-11.6 [facility] Leukocytes [#/volume] in Blo od by Automated countOrdered By: Avery Blanca on 08-14-2023 WBC (Bld) [#/Vol] 3.8 10*3/uL Normal 3.8-11.6 [facility] Comment on above: Order Comment: Reaso n for Exam Benign essential hypertension Performed By: #### T SH3 wRFLX, LIPID, CBC, CMP #### [facility] [address] Lipid Panelon 08-14-2023 LDL Cholesterol,Calculated 181 mg/dL High 0-100 [facility] Comment on above: Order Comment: Reaso n for Exam Benign essential hypertension Result Comment: LDL ATP III CLASSIFICATION LDL less than 100 mg/dL Optimal LDL 100-129 mg/dL Near or above optimal LDL 130-159 mg/dL Borderline high LDL 160-189 mg/dL High LDL greater than 189 mg/dL Very high Performed By: #### T SH3 wRFLX, LIPID, CBC, CMP #### [facility] [address] Triglyceride w/Reflex 111 mg/dL Normal 0-149 [facility] Comment on above: Order Comment: Reaso n for Exam Benign essential hypertension Result Comment: TRIG ATP III CLASSIFICATION TRIG less than 150 mg/dL Normal TRIG 150-199 mg/dL Borderline high TRIG 200-500 mg/dL High TRIG greater than 500 mg/dL Very high Standard traceable to the Center for Disease Conrtrol and Prevention (CDC) test method. Performed By: #### T SH3 wRFLX, LIPID, CBC, CMP #### [facility] [address] [place] [id number] [facility] VLDL CHOLESTEROL 22 mg/dL Normal [facility] Comment on above: Order Comment: Reaso n for Exam Benign essential hypertension Performed By: #### T SH3 wRFLX, LIPID, CBC, CMP #### [facility] [address] [place] [address] Lymphocytes [#/volume] in Bl ood by Automated countOrdered By: Avery Blanca on 08-14-2023 Lymphocytes (Bld) [#/Vol] 1.1 10*3/uL Normal 1.00-4.8 [facility] Comment on above: Order Comment: Reaso n for Exam Benign essential hypertension Performed By: #### T SH3 wRFLX, LIPID, CBC, CMP #### [facility] [address] [place] [address] Lymphocytes/100 leukocytes i n Blood by Automated countOrdered By: Avery Blanca on 08-14-2023 Lymphocytes/100 WBC (Bld) 27.8 % Normal . [facility] Comment on above: Order Comment: Reaso n for Exam Benign essential hypertension Performed By: #### T SH3 wRFLX, LIPID, CBC, CMP #### [facility] [address] [place] [address] MCH [Entitic mass] by Automa rob countOrdered By: Avery Blanca on 08-14-2023 MCH (RBC) [Entitic mass] 33.3 pg Normal 24.7-34.3 [facility] Comment on above: Order Comment: Reaso n for Exam Benign essential hypertension Performed By: #### T SH3 wRFLX, LIPID, CBC, CMP #### [facility] [address] [place] [address] MCHC Auto (RBC) [Mass/Vol]Or dered By: Avery Blanca on 08-14-2023 MCHC (RBC) [Mass/Vol] 34.2 g/dL 32.0-35.0 [facility] MCV [Entitic volume] by Auto mated countOrdered By: Avery Blanca on 08-14-2023 MCV (RBC) [Entitic vol] 97.1 fL Normal 80-100 [facility] Comment on above: Order Comment: Reaso n for Exam Benign essential hypertension Performed By: #### T SH3 wRFLX, LIPID, CBC, CMP #### [facility] [address] Neutrophils [#/volume] in Bl ood by Automated countOrdered By: Avery Blanca on 08-14-2023 Neutrophils (Bld) [#/Vol] 2.2 10*3/uL Normal 1.8-7.7 [facility] Comment on above: Order Comment: Reaso n for Exam Benign essential hypertension Performed By: #### T SH3 wRFLX, LIPID, CBC, CMP #### [facility] [address] No Panel InformationOrdered By: Avery Blanca on 08-14-2023 Estimated GFR (CKD-EPI) > 60.0 mL/Min [facility] Creatinine Clearance (Chem N/A [facility] Nucleated erythrocytes [Pres ence] in Blood by Automated countOrdered By: Avery Blanca on 08-14-2023 Nucleated RBC Auto Ql (Bld) 0.3 /100{WBC} 0-0.5 [facility] Platelet mean volume [Entiti c volume] in Blood by Automated countOrdered By: Avery Blanca on 08-14-2023 Platelet mean volume (Bld) [Entitic vol] 7.1 fL Normal 6.3-10.7 [facility] Comment on above: Order Comment: Reaso n for Exam Benign essential hypertension Performed By: #### T SH3 wRFLX, LIPID, CBC, CMP #### [facility] [address] [place] [address] Platelets [#/volume] in Bloo d by Automated countOrdered By: Avery Blanca on 08-14-2023 Platelets (Bld) [#/Vol] 201 10*3/uL Normal 150-450 [facility] Comment on above: Order Comment: Reaso n for Exam Benign essential hypertension Performed By: #### T SH3 wRFLX, LIPID, CBC, CMP #### [facility] [address] [place] [address] [place] Potassium [Moles/volume] in Serum or PlasmaOrdered By: Avery Blanca on 08-14-2023 Potassium [Moles/Vol] 4.2 mmol/L Normal 3.5-5.1 [facility] Comment on above: Order Comment: Reaso n for Exam Benign essential hypertension Performed By: #### T SH3 wRFLX, LIPID, CBC, CMP #### [facility] [address] Protein [Mass/volume] in Ser um or PlasmaOrdered By: Avery Blanca on 08-14-2023 Protein [Mass/Vol] 7.3 g/dL Normal 6.4-8.9 [facility] Comment on above: Order Comment: Reaso n for Exam Benign essential hypertension Performed By: #### T SH3 wRFLX, LIPID, CBC, CMP #### [facility] [address] Serum globulin measurement b y calculation (mass/volume)Ordered By: Avery Blanca on 08-14-2023 Globulin (S) [Mass/Vol] 2.5 g/dL Normal [facility] Comment on above: Order Comment: Reaso n for Exam Benign essential hypertension Performed By: #### T SH3 wRFLX, LIPID, CBC, CMP #### [facility] [address] [place] [address] Serum or plasma albumin/glob ulin mass ratioOrdered By: Avery Blanca on 08-14-2023 Albumin/Globulin [Mass ratio] 1.9 {ratio} [facility] Comment on above: Order Comment: Reaso n for Exam Benign essential hypertension Performed By: #### T SH3 wRFLX, LIPID, CBC, CMP #### [facility] [address] [place] [address] Serum or plasma anion gap de terminationOrdered By: Avery Blanca on 08-14-2023 Anion gap [Moles/Vol] 14.5 mmol/L Normal 6.0-15.0 [facility] Comment on above: Order Comment: Reaso n for Exam Benign essential hypertension Performed By: #### T SH3 wRFLX, LIPID, CBC, CMP #### [facility] [address] [place] [address] Serum or plasma high density lipoprotein (HDL) cholesterol measurementOrdered By: Avery Blanca on 08-14-2023 Cholesterol in HDL [Mass/Vol] 130 mg/dL High 23-92 [facility] Comment on above: HDL CHOL ATP-III CLA SSIFICATION Cardiovascular RiskHDL > or equal to 60 mg/dL LOWHDL < 40 mg/dL HIGH Order Comment: Reaso n for Exam Benign essential hypertension Result Comment: HDL CHOL ATP-III CLASSIFICATION Cardiovascular Risk HDL > or equal to 60 mg/dL LOW HDL < 40 mg/dL HIGH Performed By: #### T SH3 wRFLX, LIPID, CBC, CMP #### [facility] [address] [place] [address] Serum or plasma total choles terol/high density lipoprotein (HDL) cholesterol mass ratOrdered By: Avery Blanca on 08-14-2023 Cholesterol.total/Chol esterol in HDL [Mass ratio] 2.6 {ratio} Normal <5.0 [facility] Comment on above: Order Comment: Reaso n for Exam Benign essential hypertension Performed By: #### T SH3 wRFLX, LIPID, CBC, CMP #### [facility] [address] [place] [address] Sodium [Moles/volume] in Ser um or PlasmaOrdered By: Avery Blanca on 08-14-2023 Sodium [Moles/Vol] 130 mmol/L Low 136-145 [facility] Comment on above: Order Comment: Reaso n for Exam Benign essential hypertension Performed By: #### T SH3 wRFLX, LIPID, CBC, CMP #### [facility] [address] [place] [address] Thyroid Stim Hormone w/Rflxo n 08-14-2023 Thyroid Stim Hormone w/Rflx 1.86 u[iU]/mL Normal 0.45-5.33 [facility] Comment on above: Order Comment: Reaso n for Exam Benign essential hypertension Result Comment: PERF ORMED BY: [place] [address] PATHOLOGIST [employer]USCRIP[employer] ARCHIVIST OSMEL BLUE M.D. Performed By: #### T SH3 wRFLX, LIPID, CBC, CMP #### [facility] [address] [place] [address] Thyrotropin [Units/volume] i n Serum or PlasmaOrdered By: Avery Blanca on 08-14-2023 TSH Qn 1.86 m[IU]/L 0.45-5.33 [facility] Triglyceride [Mass/volume] i n Serum or PlasmaOrdered By: Avery Blanca on 08-14-2023 Triglyceride [Mass/Vol] 111 mg/dL 0-149 [facility] Comment on above: TRIG ATP III CLASSIF ICATIONTRIG less than 150 mg/dL NormalTRIG 150-199 mg/dL Borderline highTRIG 200-500 mg/dL High TRIG greater than 500 mg/dL Very highStandard traceable to the Center for Disease Conrtrol and Prevention (CDC) test method. Urea nitrogen [Mass/volume] in Serum or PlasmaOrdered By: Avery Blanca on 08-14-2023 Urea nitrogen [Mass/Vol] 5 mg/dL Low 7-25 [facility] Comment on above: Order Comment: Reaso n for Exam Benign essential hypertension Performed By: #### T SH3 wRFLX, LIPID, CBC, CMP #### [facility] [address] HbA1c HPLC (Bld) [Mass fract ion]on 06-14-2023 HbA1c (Bld) [Mass fraction] 4.7 % [facility] No Panel Informationon 06-13 Bedside Glucose 110 [facility] A1C HEMOGLOBINon 03-27-2023 HbA1c (Bld) [Mass fraction] 10.6 % [facility] [employer] Other Glucose - FINGER STICKon Glucose [Mass/Vol] 95 mg/dL [facility] [employer] Other HbA1c (Bld) [Mass fraction]o n 03-27-2023 A1C HEMOGLOBIN [facility] [employer] Other Consent for Treatmenton 10-07 Consent for Treatment [id number]:12 7 Normal [facility] Discharge Instructionson Discharge Instructions [id number]: 127 Normal [facility] ED Clinical Summaryon 2022 ED Clinical Summary (Inserted Image. Jackie ble to display) [place] [address] ED Clinical Summary Person Information Name: SHIKHA LOERA/[place] Age: 37 Years : 1985 Sex: Female Language: Marshallese PCP: NONE, XXXX Marital Status: Visit Id: [...] 10/21/2022 08:36:13 10/21/2022 08:36:13 10/21/2022 08:36:13 ADDRESS: [address] [place] [address] [place] [id number] PHYS DOC NOTES: MEDICAL INFORMATION: Prescriptions Given: New Medications [id number], [address] [place] [id number], [phone] cyclobenzaprine (cyclobenzaprine 5 mg Tab) 1 Tablets [...] Continue with No Changes Other Medications acetaminophen-hydrocodone ([place] 325 mg-5 mg oral tablet) 1 Tablets [...] worsening symptoms. DIAGNOSIS: Contusion of rib Normal [facility] ED Note-Physicianon 10-22-19 ED Note-Physician Basic Information Time Seen: Valeriano PIERSON Thanh MartinezNuha 10/21/2022 07:06 Chief Complaint Patient presents with [...] pain, # 21 tab(s), Refills(s) 0, [facility]acy: [id number], 167.6, cm, 10/21/22 7:13:00 EDT, Height/Length Dosing, 61.5, kg, 10/21/22 7:13:00 EDT, Weight Dosing lidocaine topical, 1 patch(es), Topical, Daily, 7 EA, Refill(s) 0, apply 12 hours on and 12 hours off daily, [id number], 167.6, cm, 10/21/22 7:13:00 EDT, Height/Length Dosing, 61.5, kg, 10/21/22 7:13:00 EDT, Weight Dosing naproxen, 500 mg = 1 tab(s), Oral, BID, PRN for pain, # 20 tab(s), Refills(s) 0, Pharmacy: [id number], 167.6, cm, 10/21/22 7:13:00 EDT, Height/Length [...] No q (more content not included)... Normal [facility] Comment on above: Result Comment: Elec tronically Signed By: Thanh Bal DO\.ceasar\Date and Time Signed: 10/21/22 15:19 EDT ED [...] for lung collapse and pneumonia. ? Medicines. Jbhz-zdr-upoidzm or prescription medicines may be given to control pain. ? Injection of a numbing medicine around the nerve near your injury (nerve block). Follow these instructions at home: Medicines ? Take hgbd-ofh-miwduyf and prescription medicines only as told by your health care provider. ? Ask your health care provider if the medicine prescribed to you: ? Requires you to avoid driving or using machinery. ? Can cause constipation. You may need to take these actions to prevent or treat constipation: ? Drink enough fluid to keep your urine pale yellow. ? Take vddw-exn-xccyjyn or prescription medicines. ? Eat foods that [...] provider. Document Revised: 06/30/2020 Document Reviewed: 06/30/2020 Elsevier Patient Education ? 2022 [employer] Normal [facility] ED Patient Summaryon 023 ED Patient Summary (Inserted Image. Jackie ble to display) [address] [address] Patient Discharge Instructions Person Information Name: SHIKHA LOERA Age: 37 Years Arrival Date: 10/21/2022 06:56:51 Discharge Diagnosis: Contusion of rib Primary Care Physician: NONE, XXXX Provider Information Primary Provider: Thanh Bal DO [facility] Consultant:None The exam and treatment you received in the Emergency Department were for an urgent problem and are not intended as complete care. It is important that you follow up with a doctor, nurse practitioner, or physician?s clinic assistant for ongoing care. If your symptoms [...] opioids can be used to help relieve ueynfwww-cg-bmtsco pain and are often prescribed following a [...] and ab (more content not included)... Normal [facility] XR Ribs Unilat 3 Views Left w/ [...] BENNY Technologist: JAYLA Technical Comments Radiation Dose: Ka,r in mGy = na DAP = na Wet Read 10/21/2022 09:58 am EDT, Dariel Morejon MD, DISAGREE left rib fractures 6-8. 8th appears recent, others may be chronic. No pneumothorax. Normal [facility] AMYLASEon 03-26-2022 Amylase [Catalytic activity/Vol] 20 U/L Critically low 25-115 [facility] Comment on above: Performed By: #### L IPA, NGA, CMP #### [facility] [address] [place] [address] [address] Angela Aguero CBC W MANUAL DIFFon 03-26-20 22 ATYPICAL LYMPH # Normal [facility] Comment on above: Performed By: #### L IPA, NGA, CMP #### [facility] [address] [place] [address] [address] Angela Aguero ATYPICAL LYMPH % Normal [facility] Comment on above: Performed By: #### L IPA, NGA, CMP #### [facility] [address] [place] [address] [address] Angela Aguero BAND # 0.0 103/ul Normal 0.0-0.3 [facility] Comment on above: Performed By: #### L IPA, NGA, CMP #### [facility] [address] [place] [address] [address] Angela Aguero BAND % 0 % Normal 0-5 [facility] Comment on above: Performed By: #### L IPA, NGA, CMP #### [facility] [address] [place] [address] [address] Angela Aguero BASOM # 0.07 103/ul Normal 0.00-0.10 [facility] Comment on above: Performed By: #### L IPA NGA, CMP #### [facility] [address] [place] [address] [address] Angela Aguero BASOM % 1.0 % Normal 0.2-2.0 [facility] Comment on above: Performed By: #### L IPA, NGA, CMP #### [facility] [address] [place] [address] Dr. Angela Aguero BLAST # Normal [facility] Comment on above: Performed By: #### L IPA NGA, CMP #### [facility] [address] [place] [address] Dr. Angela Aguero BLAST % Normal [facility] Comment on above: Performed By: #### L IPA NGA, CMP #### [facility] [address] [place] [address] Dr. Angela Aguero CORRECTED WBC Normal 4.0-11.0 [facility] Comment on above: Performed By: #### L IPA, NGA, CMP #### [facility] [address] [place] [address] Dr. Angela Aguero EOS # 0.00 103/ul Normal 0.00-0.70 [facility] Comment on above: Performed By: #### L IPA NGA, CMP #### [facility] [address] [place] [address] Dr. Angela Aguero EOS% 0.0 % Critically low 0.9-7.0 [facility] Comment on above: Performed By: #### L IPA, NGA, CMP #### [facility] [address] [place] [address] Dr. Angela Aguero HCT 42.7 % Normal 36.0-48.0 [facility] Comment on above: Performed By: #### L IPA, NGA, CMP #### [facility] [address] [place] [address] Dr. Angela Aguero HGB 15.0 g/dl Normal 12.0-16.0 [facility] Comment on above: Performed By: #### L IPA, NGA, CMP #### [facility] [address] [place] [address] Dr. Angela Aguero LYMPHM # 0.28 103/ul Critically low 1.20-3.80 [facility] Comment on above: Performed By: #### L IPA, NGA, CMP #### [facility] [address] [place] [address] Dr. Angela Aguero LYMPHM% 4.0 % Critically low 20.5-60.0 [facility] Comment on above: Performed By: #### L IPA, NGA, CMP #### [facility] [address] [place] [address] Dr. Angela Aguero MCH 34.1 pg Critically high 26.7-34.0 [facility] Comment on above: Performed By: #### L IPA, NGA, CMP #### [facility] [address] [place] [address] Dr. Angela Aguero MCHC 35.1 g/dl Normal 29.9-35.2 [facility] Comment on above: Performed By: #### L IPA, NGA, CMP #### [facility] [address] [place] [address] Dr. Angela Aguero MCV 97.0 fL Normal 81.0-99.0 [facility] Comment on above: Performed By: #### L IPA, NGA, CMP #### [facility] [address] [place] [address] Dr. Angela Aguero METAMYELOCYTE # Normal [facility] Comment on above: Performed By: #### L IPA, NGA, CMP #### [facility] [address] [place] [address] Dr. Angela Aguero METAMYELOCYTE % Normal [facility] Comment on above: Performed By: #### L IPA, NGA, CMP #### [facility] [address] [place] [address] Dr. Angela Aguero MONOM# 0.21 103/ul Critically low 0.30-0.80 [facility] Comment on above: Performed By: #### L IPA, NGA, CMP #### [facility] [address] [place] [address] [address] Angela Aguero MONOM% 3.0 % Normal 1.7-12.0 [facility] Comment on above: Performed By: #### L IPA, NGA, CMP #### [facility] [address] [place] [address] [address] Angela Aguero MPV 9.4 fL Critically low 9.5-13.5 [facility] Comment on above: Performed By: #### L IPA, NGA, CMP #### [facility] [address] [place] [address] [address] Angela Aguero MYELOCYTE # Normal [facility] Comment on above: Performed By: #### L IPA, NGA, CMP #### [facility] [address] [place] [address] Dr. Angela Aguero MYELOCYTE % Normal [facility] Comment on above: Performed By: #### L IPA, NGA, CMP #### [facility] [address] [place] [address] Dr. Angela Aguero NRBC Normal [facility] Comment on above: Performed By: #### L IPA, NGA, CMP #### [facility] [address] [address] [address] Angela Aguero PLT 252 103/ul Normal 150-450 [facility] Comment on above: Performed By: #### L IPA, NGA, CMP #### [facility] [address] [address] [address] Angela Aguero RBC 4.40 106/ul Normal 4.20-5.40 [facility] Comment on above: Performed By: #### L IPA, NGA, CMP #### [facility] [address] [place] [address] Dr. Angela Aguero RDW 11.3 % Normal 11.0-15.0 [facility] Comment on above: Performed By: #### L IPA, NGA, CMP #### [facility] [address] [address] [address] Angela Aguero SEG # 6.44 103/ul Normal 1.40-6.50 [facility] Comment on above: Performed By: #### L NGA SMITH, CMP #### [facility] [address] [place] [address] Dr. Angela Aguero SEG % 92.0 % Critically high 43.0-75.0 [facility] Comment on above: Performed By: #### L NGA SMITH, CMP #### [facility] [address] [place] [address] Dr. Angela Aguero WBC 7.0 103/ul Normal 4.0-11.0 [facility] Comment on above: Performed By: #### L NGA SMITH, CMP #### [facility] [address] [place] [address] Dr. Angela Aguero ETHANOL (BLD ALC)on 03-26-20 ALC NOTE NOTE: 80 mg/dl is th e legal limit for a blood alcohol level Normal [facility] Comment on above: Performed By: #### L NGA SMITH, CMP #### [facility] [address] [place] [address] Dr. Angela Aguero Ethanol [Mass/Vol] mg/dL Normal [facility] Comment on above: Performed By: #### L NGA SMITH, CMP #### [facility] [address] [place] [address] Dr. Angela Aguero LIPASEon 03-26-2022 Lipase [Catalytic activity/Vol] 43.0 U/L Critically low 73.0-393.0 [facility] Comment on above: Performed By: #### L NGA SMITH, CMP #### [facility] [address] [place] [address] Dr. Angela Aguero PROF 14(COMP METB)on Albumin [Mass/Vol] 3.9 g/dL Normal 3.4-5.0 [facility] Comment on above: Performed By: #### L NGA SMITH, CMP #### [facility] [address] [place] [address] Dr. Angela Aguero Albumin/Globulin [Mass ratio] 0.9 {ratio} Normal [facility] Comment on above: Performed By: #### L IPA, NGA, CMP #### [facility] [address] [address] [address] Angela Aguero ALP [Catalytic activity/Vol] 129 U/L Critically high 46-116 [facility] Comment on above: Performed By: #### L IPA, NGA, CMP #### [facility] [address] [address] [address] Angela Aguero ALT [Catalytic activity/Vol] 143 U/L Critically high 14-59 [facility] Comment on above: Performed By: #### L IPA, NGA, CMP #### [facility] [address] [address] [address] Angela Aguero Anion gap [Moles/Vol] 16.4 mmol/L Normal [facility] Comment on above: Performed By: #### L IPA, NGA, CMP #### [facility] [address] [address] [address] Angela Aguero AST [Catalytic activity/Vol] 306 U/L Critically high 15-37 [facility] Comment on above: Performed By: #### L IPA, NGA, CMP #### [facility] [address] [address] [address] Angela Aguero Bilirubin [Mass/Vol] 1.7 mg/dL Critically high 0.2-1.0 [facility] Comment on above: Performed By: #### L IPA, NGA, CMP #### [facility] [address] [address] [address] Angela Aguero Calcium [Mass/Vol] 9.4 mg/dL Normal 8.5-10.1 [facility] Comment on above: Performed By: #### L IPA, NGA, CMP #### [facility] [address] [address] [address] Angela Aguero Chloride [Moles/Vol] 99 mmol/L Normal 98-107 [facility] Comment on above: Performed By: #### L IPA, NGA, CMP #### [facility] [address] [address] [address] Angela Aguero CO2 [Moles/Vol] 25.9 mmol/L Normal 21.0-32.0 [facility] Comment on above: Performed By: #### L IPA NGA, CMP #### [facility] [address] [place] [address] Dr. Angela Aguero Creatinine [Mass/Vol] 0.82 mg/dL Normal 0.55-1.02 [facility] Comment on above: Performed By: #### L IPA, NGA, CMP #### [facility] [address] [place] [address] Dr. Angela Aguero EGFR-AF MOLDOVAN >60 Normal >=60 [facility] Comment on above: Performed By: #### L IPA, NGA, CMP #### [facility] [address] [place] [address] Dr. Angela Aguero EGFR-NON AF MOLDOVAN >60 Normal >=60 [facility] Comment on above: Performed By: #### L IPA NGA, CMP #### [facility] [address] [place] [address] Dr. Angela Aguero Globulin (S) [Mass/Vol] 4.4 g/dL Normal [facility] Comment on above: Performed By: #### L IPA NGA, CMP #### [facility] [address] [place] [address] Dr. Angela Aguero Glucose [Mass/Vol] 207 mg/dL Critically high 74-106 [facility] Comment on above: Performed By: #### L IPA NGA, CMP #### [facility] [address] [place] [address] Dr. Angela Aguero Potassium [Moles/Vol] 3.3 mmol/L Critically low 3.5-5.1 [facility] Comment on above: Performed By: #### L IPA NGA, CMP #### [facility] [address] [place] [address] Dr. Angela Aguero Protein [Mass/Vol] 8.3 g/dL Critically high 6.4-8.2 [facility] Comment on above: Performed By: #### L IPA, NGA, CMP #### [facility] [address] [place] [address] Dr. Angela Aguero Sodium [Moles/Vol] 138 mmol/L Normal 136-145 [facility] Comment on above: Performed By: #### L NGA SMITH, CMP #### [facility] [id number] Angela Aguero Urea nitrogen [Mass/Vol] 5.0 mg/dL Critically low 7.0-18.0 [facility] Comment on above: Performed By: #### L NGA SMITH, CMP #### [facility] [id number] Angela Aguero Urea nitrogen/Creatinine [Mass ratio] 6.1 mg/mg Normal [facility] Comment on above: Performed By: #### L NGA SMITH, CMP #### [facility] [address] [address] [address] Angela Aguero Coding Summary.on 02-06-2022 Coding Summary. CD:[id number] Gh0bW w+PGhlYWQ+DG6TPSMlE86npVD nkH2FI4mEVO5IJSRBPAPMYI4B GS1ixQE1ZUokR9BslcKj IbwuhMHpQZ67GPn3DGC8aQpiR BfmwP5dfKMrD0p7DoHhGO75wY 19QJrtUTYsDmK0MmRstfxzbPQ y G1prXvTaaLMrXmd+PHRhYmxlI HdpZHRoPScxMDAlJyBzdHlsZT 5rUb8cSREoPAMidIvhvHJkWwW j h3aqWALbFPueDV4uvFnqM1Bos EO0DZZsw2t0Wx46vEW+PHRkIH P4yUuqYWprq903HvRjl9enDCZ 3 hQQbLKjtYSC3R86ka7C7VERnV AIhENB4oXG4vY4vkVsvylkjQ3 ZcjJDzJqP4CUP7uSRhzU6njSm n fkaqqB4gZzy+T11TAT1DERYTK Q6WKmn1R0EvJjekhCL+PC90YW WtLX33uTIfpSQaw4dakIk4OsO w VLFdDPS5eEecZHpag9ObOHIgO 69ztCAlq0V6MKQxwDfkyNCjAt UkyFZ4fI3wXYzhzeedj5ypwsa n Undzk7qlil07sT84U21hVGtcZ ETqAIN9IRQyAINjpMsvki5eaG 9wIi8+MGnxw5hot7jwbCc6NsJ w WPVhlmVdqDnhVWW7l0VjIz51P 3CllWopv7ReGxk6it34wIZry0 X3tHX4SFwvXSQtcX5uCQiiAbR 6 JDYrOiYpiA31jNWcNNiwRb6op BirdKkjIP9iKPNzpmvpMPNrfQ 3qESJdnCEkuSpeGN2iKWCkcvz m s366KvNjGWY4MYPuoAVhM0Qfg Z8uLcFgRHQvNFSjE9PzwGVhTY nwU211MFwbZmX0JKDmgfUeQ4L s RRPesUvcLiV2p7D1Ll7Gn3Ypt jrsLMF6RGxwVXFyIzBmJiBmJe P2E1WnZqi3SHWyfYvhDM3fH3K h NMMjzkbdwgxkuPC2OCIuDHZvm V89cMAyVPmfVu4rq8B2d621BC QiIMCfwY02Nf9zuDcwPWItpSI U jL5faqgwp5hngvqcWtPgXVEbF Ce5MCn9LNYadHfcQkWaHDA9Im D3FCP7iPJptA9mpYijupgaxZ9 w Oyc+T16dcQ2yKFP8MEQ8vassX DBdwqDrFI50PR39F6IiRqopkH FibGU+BJTqjmOviBjxUN0fDnZ j o0www9HkBThqS1AcNFKqQLpkD nc1SDQhAUU6yHV7aK8vRCGuPJ nzf4F7hSF0J6VplnNlcz1zu9p s AWAbXElzC51qhEWif0T3BSOjj IJ1RFIqpCypJvJkgM04Kcx+PG FljHiok9KoZpyki2gmx9glsIp 9 ZrIzZTRmqqLjiQiwOFX8j1JzU g25H87zRKybGKZgTKSkFWDsVO DzjMovcw5vjG2pCe2+PGNvbCB 3 dKZ3wW7sSLXkZiK3TBnrA732B gQteZHwWygpa1ycq3ykpRp1Io HgTTYkruOchRbhZKD2v1CqNu1 8 T68eWZlsRSRuXWXoFQDcVWWfj Ljsyr8ujR8wMw2+AA9ck8whoc 03uH74gDW+TPCyMPH9sVodKUi w JXGimX1nPGppKuE0XAOjXwJng N89rNRqUSrxKx4mqCvonKtjSM 3cYVRuioemu570GzKts2gbWHR w kVZvDEwqLFN0F11pl3V5GCFaZ GPeJQG2uWJ4zW2soZdbibijdV RfcQfirgRmjDtfMXknMEaoB63 6 IHRvcDsnPlBhdGllbnQgTmFtZ Ms5G9TiQsp2MOKmzAdbQT7beS EoFEvxMz9jiAbpcWcpHG1uJXL p ilugj280LiFao2blQMVrmYGzZ YdvTAJ7L28nj6I8VMHyZAGiUE V5fMC3mK3cjLsxavqqtCCtpIy g cuDduLdzJQouQTlfB176VBFcm LflQxBhzdFkNXQkjBN1UY79FX 17aFWcy8C5wIX2C3NgSRKdjtl t lnzmzWN6HJSoYLMdtQ18Xu2sh CreIb4uCIOnVMW7XRQukAZfT7 GjkB9aDjJiKHJyYSSvJ6CryRH t SZqlA300JQduPqV6AEBbgkKrW 6DzHYDdoMbhDjC7a4N6Kn1EL7 U4VG26IC19cVAbv7H7tZB9S6N h EVXiouptvzpruLG8ZCYxDLMne Y12Xw1bxYyzSt4bRZAaGMV5NJ DrqTTsD6LliN3rZkVoGQPpJHL w F5ZoeXPnMIeoN316RFdgMqE1M TJyqeDqG2CkRRHyfZhtClR1x5 W4Tk0XELp6XW34ST26dXGyi0U 5 rQE9D7RhUYRaplmnybforBV9F JUlGKWxdU46Sy6egMlzRd8vPF PsKXP2GXQbcPWeW2LzpV9yApS j MTCeEZWyR2NzhWYhRNivV004H SmtJgG2UKWomoOgM5HxBCCnjE qyRuY7v0W6Js1OXNJtFI37YDW 5 xSV2JC24VY42M7TfPzxspARnq +PHRhYmxlIHdpZHRoPScxMD EkEjAsiGuxTA7wMh2rBXSnDAO v uGufwJLnAbTeo6ciCINtVThkK O4hgFnwS4NfeYJ3ANCtx8y4Ht 37I30tK9GdhRW+MQDzjVR5nOX 0 yX5rXjOfCiM8COejD925ZbQxi DCyIolkd5nry0yvzRh9BlE8PB JvogEiyKuyAVE4f2TaBn00U36 s IHdpZHRoPSIxNSUiIHZhbGlnb j4ibA5rSy6+CGBkdZG8oPX0dY 8sNmSkKkS0ICetS647YwRloQI v Mndmg0lsg4cavLd2TcYwQJVrc bMrbFgcYAR3f1KbUl93F2TezI bcq5AeIdd9ze02vIMhw4C7vGD 9 H7YcZLFocjhykLDwuAcxHB4sD CQwvrriBHVepL2zPYAbH3y1Mu LnXsG8RLrnE6AqknQ5IMKlhMZ g SPggQAP1P37bw6T7SNVpTJBdI YA1fNM9wL2anIhymcswpTEjdW ciuvUecFneKPrvGBlrI596YEG v nQdjRTUulZ4ePNXnwYIjzUfiM S3fXHYlllmzAl9DWTiPACUCRM mwAY8PUtNZFT92GO81iBYzn9R 5 iES3N3KqFCSqyrdcvyncnVU2S GDiQDYcdG49bGSyEHcxXl2ek2 F0g439ISNhBMBqpY41Su6qiQw g BACowEYVbA0pyvndp1vjuswkM qVwSAQsYCv6XQt7IXWnuPixIt YhOVX4TqN4FXN6dMQnbE7zpYg n fzaaoA1gBtr+JMKjSQtcEYw6M TwvdGQ+OAOzWFK6lIuoMHfzOB NkxT2aKUSkS6a8MyJhZfB9RDc u G3DeMEPeyrsyNb08fF3eUpVnC aF3UAbtQ9QuguZ6UQKepNSxQD wjZQZ4R24iz9S1RSUmMWOhLBJ 7 sTO0iP6vuTqpzoretFXxgKpbr xQxpBrcKCkoSJinD516XZPrtZ wfVuC1IZteBAFsJO08XF55zKS g v1H7dMF8N2HkMMVkrysvdicze XU4UDHhIVAmpL77jVHsEJyzFo 3mu9J8u727SAUpBWIdsQ42Xz6 u uEflLYKggWNNqD4mtpbke8dib jyzEuTmVZTnZGd4AJu0GEHxuP qwMdDuOKF6IzN6YNG0mIIzjV5 h aJllhfcpvF8lVpd+RmVtYWxlP B35VG41qKJjn4G0oJD6E9WmZL VgzqibcrdbeJM6LFQlNACagT2 7 bBFxKXsoZw9oy6Y1f287WNWrD OIamX07Tr7qtVqjZGHxfHAYgG 3bolxwx1sukgdiVbYxUQHvWNx 0 DYw0XYYnpVtqKwAoHJX8JgN0E RV6xGUnrU8itJfymljklK8nFh c+WN6qydsbpbH1BH13XY94T8P y PjwvdGFibGU+PHRhYmxlIHdpZ CVwZZwoBNBfSkDlrMouIZ6iGi 0cRSSeQZYczAnkiEXcPdQjq2w s GPQgZJaxKC3meCirV7FgpCR1J AKcg8v8La84E76lX7AllLJ+PG CprPG4zMK1mH0nOvMjEzK9YBj p L139KxZfiSPpWpgpl3exl7rvp Ij2EdZtWOWjfmYhdSvsQTQ5u7 IdRx26E27zIAnnXEYwWHWjDAF i QCKqlXxwsa4zuE3vVw3+PGNvb WR0gOS5aW2pLmStDuB6DAgpR7 91PaPrxTKuKgggV31qW3HqlXV + EQKtGxr8OWFsaEkmFK9vvXBtL KjpBv9sZRS4CqJkIqTkXPrlC1 WcALKhijkjnknrzLV2ZKYiMZX w aE30Pq0dpBhuHi2uHBWzRMS4J IIguKKvE9FpkF6oCsLgRWAtGG IlX7GudEWjRLuiC389OAldGwB 7 RVGvxfFqW8VhOYRhaJwsFgZ2f 9X6Yn9OkJpthRWqWZ5vXvAaIF y9K5VeZae7UJKngIrhBA3oxNP k LQxjEi7noOvnfHofKI0xGZZye detk708YyIme9tiOPOjzMXrHX rxIIX9P07wi3B2PYDjNMTpYDY 7 nBZ8fE3hcZrqbhsqnSTpeSqwk tGqjRsuGBpyFNfeK511FJOcdA htOtDJEqd7H4XdVct8TTQqeSf s LX6liIEbAEeyJw7ngOqscXmrT F0qCSNkowqkq281DbJgt6raHM PjlVWpPQbbCYE9U80ny3N1PCK w ASHyTYQ9xUJ1kY0gqUddetkeo GVmdDsgdmVydGljYWwtYWxpZ2 65EGOeaKzzOc5WIhr4Y1PtJbl 0 HLDpeEhdKR9kfIFaNSqiNj1lo UeiwKrtZX8wMPPupycak769Am Vkx7ccSIExlDIuNRoqJAO7M43 s i6X3YNMiXIXcZJB6xFF8zZ0ms GlnbjogbGVmdDsgdmVydGljYW iqJQstQ197ZQOpqIpsVeXsfKF y OjwvdGQ+QS75xj85Y9NmYectI dl9QNLhTXB1pOE7fC9eFGSvHL dbi6F6dYR5H6XwkgZmac9we3u s YXBz (more content not included)... [facility] C Urineon 02-03-2022 Bacteria identified Cx [...] Locations R1: This test was performed at: [facility], [address] [place] [address], [phone] , , [facility] Comment on above: Performed By: #### 2 [id number], [id number] ####[place] [address] Auto Diffon 02-02-2022 Basophils/100 WBC (Bld) 0.9 % Normal 0.0-2.0 [facility] Comment on above: Order Comment: Order Added by Discern Expert. Performed By: #### 2 851647, 3858271, 1340630, 1338155, 21166549, 4452424 ####[address] [place] [address] Basophils/Leukocytes Auto (Bld) [Pure # fraction] 0.1 E9/L Normal 0.0-0.2 [facility] Comment on above: Order Comment: Order Added by Discern Expert. Performed By: #### 2 357756, 9213563, 7515891, 4398982, 54130984, 8949949 ####[address] [place] [address] Eosinophils/100 WBC (Bld) 0.6 % Normal 0.0-8.0 [facility] Comment on above: Order Comment: Order Added by Discern Expert. Performed By: #### 2 163527, 1669538, 7400165, 1406297, 03874465, 1018228 ####[address] [address] Eosinophils/Leukocytes Auto (Bld) [Pure # fraction] 0.0 E9/L Normal 0.0-0.5 [facility] Comment on above: Order Comment: Order Added by Discern Expert. Performed By: #### 2 897108, 5231511, 9275113, 3164420, 94760706, 0597903 ####[address] [place] [address] Lymphocytes/100 WBC (Bld) 22.1 % Normal 14.0-50.0 [facility] Comment on above: Order Comment: Order Added by Discern Expert. Performed By: #### 2 457538, 8780094, 9547598, 0759589, 99694128, 0011834 ####[address] [place] [address] Lymphocytes/Leukocytes Auto (Bld) [Pure # fraction] 1.3 E9/L Normal 1.0-4.0 [facility] Comment on above: Order Comment: Order Added by Discern Expert. Performed By: #### 2 788342, 7080839, 3598497, 4798239, 58062499, 5712385 ####[facility] [address] [place] [address] Monocytes/100 WBC (Bld) 9.5 % Normal 4.0-14.0 [facility] Comment on above: Order Comment: Order Added by Discern Expert. Performed By: #### 2 702494, 5447921, 7292429, 9857093, 56820115, 7020690 ####[address] [place] [address] Monocytes/Leukocytes Auto (Bld) [Pure # fraction] 0.6 E9/L Normal 0.2-1.0 [facility] Comment on above: Order Comment: Order Added by Discern Expert. Performed By: #### 2 078093, 9090550, 0849856, 5526044, 86092376, 0631479 ####[facility] [address] [place] [address] Neutrophils/100 WBC (Bld) 66.9 % Normal 36.0-75.0 [facility] Comment on above: Order Comment: Order Added by Discern Expert. Performed By: #### 2 513791, 9597024, 1126116, 5556319, 48115292, 9352352 ####[address] [place] [address] Neutrophils/Leukocytes Auto (Bld) [Pure # fraction] 4.0 E9/L Normal 2.0-7.5 [facility] Comment on above: Order Comment: Order Added by Discern Expert. Performed By: #### 2 105018, 7221675, 7865249, 1652204, 24989252, 0361978 ####[facility] [address] [place] [address] B hCG Qualon 02-02-2022 Beta hCG Ql Negative Normal [facility] Comment on above: Performed By: #### 2 4684835 ####[facility] [address] [place] [address] BMPon 02-02-2022 Anion gap [Moles/Vol] 21 mmol/L High 6-16 [facility] Comment on above: Performed By: #### 2 460678, 6040461, 7213702, 9263427, 79459104, 3097079 ####[facility] [address] [place] [address] Calcium [Mass/Vol] 9.2 mg/dL Normal 8.9-11.1 [facility] Comment on above: Performed By: #### 2 106775, 2505027, 7274888, 0858502, 03869314, 6736693 ####[facility] [address] [place] [address] Chloride [Moles/Vol] 100 mmol/L Low 101-111 [facility] Comment on above: Performed By: #### 2 998525, 6237399, 9930475, 7964991, 48976382, 3053413 ####[facility] [address] [place] [address] CO2 [Moles/Vol] 20 mmol/L Low 21-31 [facility] Comment on above: Performed By: #### 2 450819, 1440433, 8535470, 8366158, 18776407, 2569563 ####[facility] [address] [place] [address] Creatinine [Mass/Vol] 0.7 mg/dL Normal 0.5-1.3 [facility] Comment on above: Performed By: #### 2 432709, 1303779, 4160662, 4904987, 26229318, 9890726 ####[facility] [address] [place] [address] Glucose [Mass/Vol] 176 mg/dL Normal 55-199 [facility] Comment on above: Result Comment: If t his glucose result represents a fasting glucose, interpretation should refer to the following reference range: 55-99 mg/dL Performed By: #### 2 534945, 0219675, 2269224, 8025380, 67826237, 5231079 ####[facility] [address] [place] [address] Potassium [Moles/Vol] 3.4 mmol/L Low 3.5-5.3 [facility] Comment on above: Performed By: #### 2 541831, 1179846, 4574606, 4472908, 27040464, 0800150 ####[facility] [address] [place] [address] Sodium [Moles/Vol] 138 mmol/L Normal 135-145 [facility] Comment on above: Performed By: #### 2 900039, 8734394, 7854323, 1355702, 79064696, 8225504 ####[facility] [address] [place] [address] Urea nitrogen [Mass/Vol] mg/dL Normal 5-21 [facility] Comment on above: Performed By: #### 2 456319, 2192062, 9600936, 4537799, 58214501, 6032074 ####[facility] [address] [place] [address] Urea nitrogen/Creatinine [Mass ratio] UTC Abnormal 10-20 [facility] Comment on above: Result Comment: Resu lt verified by Discern Rule. Performed result UTC (Unable to Calculate) was sent as an Alpha code due the inability to calculate a valid numeric value. Performed By: #### 2 090832, 2184406, 2600752, 7289513, 96226754, 9115550 ####[facility] [address] [place] [address] CBC w/ Auto Diffon Erythrocyte distribution width (RBC) [Ratio] 13.6 % Normal 10.9-14.2 [facility] Comment on above: Performed By: #### 2 562041, 1605626, 3280608, 9933406, 24895823, 9687844 ####[facility] [address] [place] [address] Hematocrit (Bld) [Volume fraction] 44.9 % Normal 34.0-46.0 [facility] Comment on above: Performed By: #### 2 685901, 5265897, 9726669, 7584851, 91205886, 1322641 ####[facility] [address] [place] [address] Hemoglobin (Bld) [Mass/Vol] 15.6 g/dL Normal 12.0-16.0 [facility] Comment on above: Performed By: #### 2 885727, 3991647, 5001582, 2852033, 04722525, 0499311 ####[address] MCH (RBC) [Entitic mass] 34.3 pg High 27.0-34.0 [facility] Comment on above: Performed By: #### 2 430941, 2552812, 4288528, 7047454, 18515157, 2806823 ####[address] MCHC (RBC) [Mass/Vol] 34.7 g/dL Normal 31.4-36.0 [facility] Comment on above: Performed By: #### 2 185864, 1573129, 0957812, 3650680, 01084447, 8698558 ####[address] MCV (RBC) [Entitic vol] 98.8 fL Normal 80.0-100.0 [facility] Comment on above: Performed By: #### 2 253426, 3877398, 7779940, 6910431, 05256687, 5449661 ####[address] [place] [address] Platelet mean volume (Bld) [Entitic vol] 7.5 fL Normal 6.4-10.8 [facility] Comment on above: Performed By: #### 2 202200, 9726106, 8120434, 5383570, 07493935, 2275181 ####[facility] [address] [place] [address] Platelets (Bld) [#/Vol] 199.0 E9/L Normal 150.0-500. 0 [facility] Comment on above: Performed By: #### 2 [id number], [id number], 3957838, 0867543, [id number], 7305266 ####[facility] [address] [place] [address] RBC (Bld) [#/Vol] 4.6 E12/L Normal 4.3-5.9 [facility] Comment on above: Performed By: #### 2 825429, 6832473, 9783619, 6132140, [id number], 2095711 ####[facility] [address] [place] [address] WBC corrected for nucl RBC Auto (Bld) [#/Vol] 6.0 E9/L Normal 4.0-11.0 [facility] Comment on above: Performed By: #### 2 651183, 5875131, 2777404, 5991576, [id number], [id number] ####[facility] [address] [place] [address] CT Abdomen/Pelvis w/ Contras ton 02-02-2022 CT [...] 300 Contrast amount in ml's: 100 Normal [facility] Discharge Instructionson Discharge Instructions [id number] Normal [facility] ED Clinical Summaryon 2021 ED Clinical Summary (Inserted Image. Jackie ble to display) [place] [id number] ED Clinical Summary Person Information Name: SHIKHA LOERA [facility] Age: 36 Years : 1985 Sex: Female Language: Marshallese PCP: AVERY BLANCA CNP Marital Status: Visit Id: Visit Reason: [...] 02/02/2022 00:18:27 02/02/2022 00:18:27 02/02/2022 00:18:27 ADDRESS: [address] [place] [address] [phone] PHYS DOC NOTES: MEDICAL INFORMATION: Prescriptions Given: New Medications Printed Prescriptions acetaminophen-hydrocodone (Dumont 325 mg-5 mg oral tablet) 1 Tablets By Mouth every 6 hours as needed for pain. Refills: 0. sulfamethoxazole-trimetho prim (Bactrim DS 800 mg-160 mg Tab) 1 Tablets By Mouth 2 times a day for 10 Days. Refills: 0. PATIENT EDUCATION INFORMATION: Instructions: Pyelonephritis, Adult, Ixif-ni-Ozag Follow up: With: Address: When: AVERY BLANCA [address] [facility] [address] [place] [address] [phone] Business (1) In 3 days 02/05/2022 Comments: You can use the pain medication every 6 hours as needed for pain, take the Bactrim twice daily until you have completed the course. Please follow-up with your primary care doctor the next 2 to 3 days. Please return to the ED for any new or worsening symptoms. DIAGNOSIS: Acute pyelonephritis Normal [facility] ED Note-Physicianon 02-03-20 22 ED Note-Physician Basic Information Time Seen: [...] Crohn's disease sees a GI doctor at [facility] who she is unsure of who [...] home. Is given a short course of Dumont to go home with. She is given [...] hydroxide/Mg hydroxide/simethicone (more content not included)... Normal [facility] Comment on above: Result Comment: Elec tronically [...] you start to feel better. ? Take pcbb-xkh-iwhouet and prescription medicines only as told by [...] 05/03/2005 Document Revised: 01/28/2019 Document Reviewed: 01/28/2019 [employer] Patient Education ? 2020 [employer] Normal [facility] ED Patient Summaryon 022 ED Patient Summary (Inserted Image. Jackie ble to display) [place] [id number] Patient Discharge Instructions Person Information Name: SHIKHA LOERA Age: 36 Years Arrival Date: 02/01/2022 21:23:41 Discharge Diagnosis: Acute pyelonephritis Primary Care Physician: AVERY BLANCA CNP Provider Information Primary Provider: Judith Mock DO [facility] Consultant:None The exam and treatment you received in the Emergency Department were for an urgent problem and are not intended as complete care. It is important that you follow up with a doctor, nurse practitioner, or physician?s clinic assistant for ongoing care. If your symptoms become worse or you do not improve as expected and you are unable to reach your usual health care provider, you should return to the Emergency Department. We are available 24 hours a day. BRIDGERSHIKHA SALCEDO has been given the following list of patient education materials, prescriptions and follow-up instructions: Follow-up Instructions: With: Address: When: AVERY BLANCA [address] [facility] [address] [place] [address] [phone] Business (1) In 3 days 02/05/2022 Comments: [...] participating provider. Patient Education Materials: Pyelonephritis, Adult, Ixtg-wg-Ilpo A MESSAGE TO ALL PATIENTS REGARDING OPIOIDS PRESCRIPTION OPIOIDS: WHAT YOU NEED TO KNOW Prescription opioids can be used to help relieve vlmhltcu-dn-vhpltm pain and are often prescribed following a [...] (www.fda.gov/Drugs/Resour cesForYou). (more content not included)... Normal [facility] Hep Func Panelon 02-02-2022 Albumin [Mass/Vol] 4.5 g/dL Normal 3.3-5.0 [facility] Comment on above: Performed By: #### 2 460548, 9378429, 3412732, 4225906, 43476455, 0920265 ####[facility] [address] [place] [address] Albumin/Globulin (S) [Mass conc ratio] 1.1 Normal 1.1-2.2 [facility] Comment on above: Performed By: #### 2 769541, 7330534, 2375242, 3536892, 95140778, 1589796 ####[address] [place] [address] ALP [Catalytic activity/Vol] 98 Int._Unit/L Normal 21-98 [facility] Comment on above: Performed By: #### 2 026935, 7513410, 2904378, 5773295, 25176924, 2900142 ####[address] [address] ALT No additional P-5'-P [Catalytic activity/Vol] 57 Int._Unit/L High 6-46 [facility] Comment on above: Performed By: #### 2 969707, 2790948, 1662033, 4411743, 27946968, 1140467 ####[address] [address] AST [Catalytic activity/Vol] 157 Int._Unit/L High 5-43 [facility] Comment on above: Performed By: #### 2 870878, 3832567, 7191511, 0242737, 85324116, 3042457 ####[address] [address] Bilirubin [Mass/Vol] 1.4 mg/dL High 0.0-1.1 [facility] Comment on above: Performed By: #### 2 371795, 7472666, 7691992, 4936788, 24352154, 1699297 ####[address] [address] Bilirubin.direct [Mass/Vol] 0.5 mg/dL High 0.1-0.4 [facility] Comment on above: Performed By: #### 2 158106, 3422642, 5364354, 9939162, 09899353, 6980998 ####[facility] [address] [place] [address] Bilirubin.indirect [Mass or moles/Vol] 0.9 mg/dL Normal 0.1-0.9 [facility] Comment on above: Performed By: #### 2 955252, 5917420, 4471867, 1397963, 79448082, 9044196 ####[facility] [address] [place] [address] Globulin (S) [Mass/Vol] 4.1 g/dL High 1.4-4.0 [facility] Comment on above: Performed By: #### 2 818642, 2121125, 4306483, 6201447, 26792175, 0496644 ####[facility] [address] [place] [address] Protein [Mass/Vol] 8.6 g/dL High 6.0-7.8 [facility] Comment on above: Performed By: #### 2 019007, 7261912, 6861355, 7372863, 49559304, 6001790 ####[address] [place] [address] Lipase Levelon 02-02-2022 Lipase [Catalytic activity/Vol] 57 U/L Normal 13-58 [facility] Comment on above: Performed By: #### 2 503437, 2946283, 1738585, 1124793, 24796278, 1281606 ####[facility] [address] [place] [address] Prescriptions/Work Noteson 1 Prescriptions/Work Notes [id number]#[id number]:12 7 Normal [facility] RAD - Preliminary Cat Scan R eporton 02-02-2022 RAD - Preliminary Cat Scan Report [id number]#[id number]:12 7 Normal [facility] UA With Cult Reflexon 2021 Bacteria LM Ql (Urine sed) 2+ /HPF Abnormal Trace [facility] Comment on above: Performed By: #### 2 075661, 53034011 ####[facility] [address] [place] [address] Bilirubin Ql (U) Negative Normal Negative [facility] Comment on above: Performed By: #### 2 775005, 74466274 ####[facility] [address] [place] [address] Clarity (U) SL CLOUDY Invalid Interpretation Code [facility] Comment on above: Performed By: #### 2 939400, 15631550 ####[facility] [address] [place] [address] Color (U) YELLOW Normal Yellow [facility] Comment on above: Performed By: #### 2 430635, 75687443 ####[facility] [address] [place] [address] Epithelial cells.squamous LM.HPF (Urine sed) [#/Area] 3-4 Normal 0-2 [facility] Comment on above: Performed By: #### 2 543853, 33705374 ####[facility] [address] [place] [address] Glucose Test strip (U) [Mass/Vol] Negative Normal Negative [facility] Comment on above: Performed By: #### 2 604777, 21037444 ####[facility] [address] [place] [address] Hemoglobin Ql (U) 1+ Abnormal Negative [facility] Comment on above: Performed By: #### 2 704758, 55177434 ####[facility] [address] [place] [address] Ketones (U) [Mass/Vol] Negative Normal Negative [facility] Comment on above: Performed By: #### 2 190048, 97782856 ####[facility] [address] [place] [address] [place].plasma/[place] .RBC (Bld) [Mass ratio] 4-20 Normal 0-3 [facility] Comment on above: Performed By: #### 2 803901, 72949139 ####[facility] [address] [place] [address] Nitrite Ql (U) Negative Normal Negative [facility] Comment on above: Performed By: #### 2 087882, 42900583 ####[facility] [address] [place] [address] pH (U) 5.0 [pH] Invalid Interpretation Code 5.0-9.0 [facility] Comment on above: Performed By: #### 2 178090, 23850873 ####[facility] [address] [place] [address] Protein (U) [Mass/Vol] Negative Normal Negative [facility] Comment on above: Performed By: #### 2 002736, 98204903 ####[address] Specific gravity (U) [Rel density] <=1.005 Invalid Interpretation Code 1.005-1.03 0 [facility] Comment on above: Performed By: #### 2 753614, 91896442 ####[place] [address] Type of Urine collection method Clean Catch Normal [facility] Comment on above: Performed By: #### 2 506839, 01002184 ####[address] Urobilinogen Qn (U) 0.2 {Concetta'U}/dL Normal 0.0-1.0 [facility] Comment on above: Performed By: #### 2 760936, 26306542 ####[address] WBC Auto Ql (U) 2+ Abnormal Negative [facility] Comment on above: Performed By: #### 2 289804, 93883312 ####[facility] [address] [place], [place] [address] WBC LM.HPF (Urine sed) [#/Area] 26-30 Abnormal 0-5 [facility] Comment on above: Performed By: #### 2 083890, 21809404 ####[facility] [address] [place] [address] [place] Gallbladderon 02-02-2022 US Gallbladder Exam Date/Time: [...] Jauregui MD, V. Transcribed by: BENNY Technologist: MLE Normal [facility] eGFRon 02-02-2022 GFR/1.73 sq M.predicted among blacks MDRD (S/P/Bld) [Vol rate/Area] mL/min/{1.73_m2} Normal >=59 [facility] Comment on above: Order Comment: Order added by Discern Expert. Result Comment: eGFR is race adjusted. AA=. Performed By: #### 2 503713, 7689344, 5365244, 7619016, 89908420, 8244454 ####[facility] [address] [place] [address] GFR/1.73 sq M.predicted among non-blacks MDRD (S/P/Bld) [Vol rate/Area] mL/min/{1.73_m2} Normal >=59 [facility] Comment on above: Order Comment: Order added by Discern Expert. Result Comment: Forwarder Operator cj kidney disease could be indicated at eGFR's of less than 60 mL/min/1.73m2. Kidney failure is indicated at less than 15 mL/min/1.73m2. Performed By: #### 2 886103, 4369136, 5822087, 7255204, 57776862, 9575365 ####[facility] [address] [place] [address] CHEMISTRYOrdered By: Jorge ruby on 02-01-2022 Albumin [...] mg/dL Normal 8.9 - 11. 1 mg/dL [facility] Chloride [Moles/Vol] 100 mmol/L Low 101 - 1 11 mmol/L [facility] CO2 [Moles/Vol] 20 mmol/L Low 21 - 31 mmol/L [facility] Creatinine [Mass/Vol] 0.7 mg/dL Normal 0.5 - 1.3 mg/dL [facility] Globulin (S) [Mass/Vol] 4.1 g/dL High 1.4 - 4.0 gm/dL [facility] Glucose [Mass/Vol] 176 mg/dL Normal 55 - 199 mg/dL [facility] Lipase [Catalytic activity/Vol] 57 U/L Normal 13 - 58 unit/L [facility] Potassium [Moles/Vol] 3.4 mmol/L Low 3.5 - 5.3 mmol/L [facility] Protein [Mass/Vol] 8.6 g/dL High 6.0 - 7.8 gm/dL [facility] Sodium [Moles/Vol] 138 mmol/L Normal 135 - 145 mmol/L [facility] Urea nitrogen [Mass/Vol] mg/dL Normal 5 - 21 mg/dL [facility] CHEMISTRYOrdered By: SYSTEM SYSTEM on 02-01-2022 GFR/1.73 sq M.predicted among blacks MDRD (S/P/Bld) [Vol rate/Area] mL/min/1.73 m2 Normal >=59mL/min /1.73 m2 [facility] Chem S GFR/1.73 sq M.predicted among non-blacks MDRD (S/P/Bld) [Vol rate/Area] mL/min/1.73 m2 Normal >=59mL/min /1.73 m2 [facility] Chem S Urea nitrogen/Creatinine [Mass ratio] Unable to Calculate Invalid Interpretation Code [facility] Remisol Consent for Treatmenton 01-08 Consent for Treatment [id number]#[id number]:12 7 Normal [facility] HEMATOLOGYOrdered By: SYSTEM SYSTEM on 02-01-2022 Basophils/100 [...] 0.6 E9/L Normal 0.2 - 1.0 E9/L [facility] Neutrophils/100 WBC (Bld) 66.9 % Normal 36.0 - 75.0 % [facility]eAutoSS Neutrophils/Leukocytes Auto (Bld) [Pure # fraction] 4.0 E9/L Normal 2.0 - 7.5 E9/L [facility] HEMATOLOGYOrdered By: Tiffanie Turpin on 02-01-2022 Erythrocyte distribution width (RBC) [Ratio] 13.6 % Normal 10.9 - 14.2 % [facility] Hematocrit (Bld) [Volume fraction] 44.9 % Normal 34.0 - 46.0 % [facility] Hemoglobin (Bld) [Mass/Vol] 15.6 g/dL Normal 12.0 - 16.0 gm/dL [facility] MCH (RBC) [Entitic mass] 34.3 pg High 27.0 - 34.0 pg [facility] MCHC (RBC) [Mass/Vol] 34.7 g/dL Normal 31.4 - 36.0 gm/dL [facility] MCV (RBC) [Entitic vol] 98.8 fL Normal 80.0 - 100.0 fL [facility] Platelet mean volume (Bld) [Entitic vol] 7.5 fL Normal 6.4 - 10.8 fL [facility] Platelets (Bld) [#/Vol] 199.0 E9/L Normal 150.0 - 500.0 E9/L [facility] RBC (Bld) [#/Vol] 4.6 E12/L Normal 4.3 - 5.9 E12/L [facility] WBC corrected for nucl RBC Auto (Bld) [#/Vol] 6.0 E9/L Normal 4.0 - 11.0 E9/L [facility] Laboratory - Microbiology an d Antimicrobial susceptibilityOrdered By: Nadia Min on 02-01-2022 Bacteria identified Cx Nom (U) >100,000 cfu/ml Gram Negative [employer] Ge[employer]ientist species [facility] SEROLOGYOrdered By: Jorge pop on 02-01-2022 Beta hCG Ql Negative (02/01/22 9:55 PM) Normal [facility] Man Sero URINALYSISOrdered By: Jorge Esquivel on [...] PM) Normal Negative [facility] UA Auto SS [place].plasma/[place] .RBC (Bld) [Mass ratio] 4-20 /HPF Normal [...] [facility] UA Auto SS Urobilinogen Qn (U) 0.6512073 {Concetta'U}/dL Normal 0.0 - 1.0 EU/dL [facility] UA Auto SS WBC Auto Ql (U) 2+ *ABN* (02/01/22 11:42 PM) Invalid Interpretation Code Negative [facility] UA Auto SS WBC LM.HPF (Urine sed) [#/Area] 26-30 /HPF Invalid Interpretation Code 0-5/HPF [facility] UA Auto SS Albumin [Mass/volume] in Ser um or PlasmaOrdered By: Delfino Reese on 01-18-2022 Albumin [Mass/Vol] 3.8 g/dL 3.2-5.5 [facility] C reactive protein [Mass/vol ume] in Serum or PlasmaOrdered By: Delfino Reese on 01-18-2022 CRP [Mass/Vol] 1.9 mg/dL 0.0-1.0 [facility] Creatinine and Glomerular fi ltration rate.predicted panel (S/P/Bld)Ordered By: Delfino Reese on 01-18-2022 Creatinine [Mass/Vol] 0.57 mg/dL 0.44-1.03 [facility] Erythrocyte sedimentation ra te by Photometric methodOrdered By: Delfino Reese on 01-18-2022 ESR Photometric method (Bld) [Velocity] 8 mm/hr 0-19 [facility] Estimated glomerular filtrat ion rate (GFR) non- AmericanOrdered By: Delfino Reese on 01-18-2022 GFR/1.73 sq M.predicted among non-blacks MDRD (S/P/Bld) [Vol rate/Area] > 60 mL/Min [facility] Folate [Mass/volume] in Seru m or PlasmaOrdered By: Delfino Reese on 01-18-2022 Folate [Mass/Vol] 10.4 ng/mL >5.9 [facility] Comment on above: Folate reference ran ge: >5.9 ng/mlThe WHO technical consultation on folate and vitamin [id number] has determined that folate concentrations lessthan 4 ng/ml are considered deficient. Globulin Calc (S) [Mass/Vol] Ordered By: Delfino Reese on 01-18-2022 Globulin (S) [Mass/Vol] 3.2 g/dL [facility] Laboratory - Chemistry and C hemistry - challengeOrdered By: Delfino Reese on 01-18-2022 Cobalamin (Vitamin B12) [Mass/Vol] 588 pg/mL 180-914 [facility] No Panel InformationOrdered By: Delfino Reese on 01-18-2022 Estimated GFR () > 60 mL/Min [facility] Comment on above: GFR estimated refere nce range: According to KDOQI guidelines, <60 ml/min/1.73m2 is sufficient to diagnose a patient with chronic kidney disease. Pharmacy Creatinine Clearance (Chem N/A [facility] Protein [Mass/volume] in Ser um or PlasmaOrdered By: Delfino Reese on 01-18-2022 Protein [Mass/Vol] 7.0 g/dL 6.1-7.9 [facility] Serum or plasma alanine montes otransferase measurement without P-5'-P (enzymatic activiOrdered By: Delfino Reese on 01-18-2022 ALT No additional P-5'-P [Catalytic activity/Vol] 58 U/L [facility] Serum or plasma albumin/glob ulin mass ratioOrdered By: Delfino Reese on 01-18-2022 Albumin/Globulin [Mass ratio] 1.2 {ratio} [facility] Serum or plasma alkaline florencio sphatase measurement (enzymatic activity/volume)Ordered By: Delfino Reese on 01-18-2022 ALP [Catalytic activity/Vol] 90 U/L 32-92 [facility] Serum or plasma anion gap de terminationOrdered By: Delfino Reese on 01-18-2022 Anion gap [Moles/Vol] 16.5 mmol/L 6.0-15.0 [facility] Serum or plasma aspartate am inotransferase measurement (enzymatic activity/volume)Ordered By: Delfino Reese on 01-18-2022 AST [Catalytic activity/Vol] 84 U/L [facility] Serum or plasma calcium archie urement (mass/volume)Ordered By: Delfino Reese on 01-18-2022 Calcium [Mass/Vol] 9.2 mg/dL 8.2-10.2 [facility] Serum or plasma chloride luz surement (moles/volume)Ordered By: Delfino Reese on 01-18-2022 Chloride [Moles/Vol] 105 mmol/L 95-114 [facility] Serum or plasma glucose archie urement (mass/volume)Ordered By: Delfino Reese on 01-18-2022 Glucose [Mass/Vol] 114 mg/dL 70-100 [facility] Comment on above: ADA recommended refe rence rangeRandom Glucose Reference Range is dependent on time and content of last meal. Glucose of more than 200 mg/dL in a nonstressed, ambulatory subject supports the diagnosis of Diabetes Mellitus. Serum or plasma potassium me asurement (moles/volume)Ordered By: Delfino Reese on 01-18-2022 Potassium [Moles/Vol] 3.5 mmol/L 3.5-5.1 [facility] Serum or plasma sodium measu rement (moles/volume)Ordered By: Delfino Reese on 01-18-2022 Sodium [Moles/Vol] 143 mmol/L 136-146 [facility] Serum or plasma total biliru bin measurement (mass/volume)Ordered By: Delfino Reese on 01-18-2022 Bilirubin [Mass/Vol] 0.8 mg/dL 0.3-1.2 [facility] Serum or plasma total carbon dioxide measurement (moles/volume)Ordered By: Delfino Reese on 01-18-2022 CO2 [Moles/Vol] 25.0 mmol/L 22.0-30.0 [facility] Serum or plasma urea nitroge n measurement (mass/volume)Ordered By: Delfino Reese on 01-18-2022 Urea nitrogen [Mass/Vol] 1 mg/dL 9-23 [facility] TSH DL <= 0.005 mIU/L QnOrde red By: Delfino Reese on 01-18-2022 TSH Qn 7.46 m[IU]/L 0.45-5.33 [facility] Thyroxine (T4) free [Mass/vo lume] in Serum or PlasmaOrdered By: Delfino Reese on 01-18-2022 Free T4 [Mass/Vol] 0.71 ng/dL 0.61-1.12 [facility] Bacteria identified Anaer cx Nom (Unsp spec)Ordered By: Delfino Reese on 12-26-2021 Anaerobic microbial culture No Anaerobes Isolated 3 Days [facility] ABO and Rh group post transf usion reaction Nom (Bld)Ordered By: Delfino Reese on 12-23-2021 Microscopic observation Gram stain Nom (Unsp spec) [facility] Albumin [Mass/volume] in Cer ebral spinal fluidOrdered By: Delfino Reese on 12-23-2021 Albumin (CSF) [Mass/Vol] 14 mg/dL 7-29 [facility] Albumin [Mass/volume] in Ser um or PlasmaOrdered By: Delfino Reese on 12-23-2021 Albumin [Mass/Vol] 4.2 g/dL 3.8-4.8 [facility] CSF IgG/albumin ratioOrdered By: Delfino Reese on 12-23-2021 IgG/Albumin (CSF) [Mass ratio] 0.10 0.00-0.25 [facility] Cerebrospinal fluid IgG inde xOrdered By: Delfino Reese on 12-23-2021 IgG clearance/Albumin clearance (S+CSF) [Ratio] 0.6 0.0-0.7 [facility] Cerebrospinal fluid glucose measurement (mass/volume)Ordered By: Delfino Reese on 12-23-2021 Glucose (CSF) [Mass/Vol] 87 mg/dL 40-70 [facility] Cerebrospinal fluid post-antonia trifugation appearance determinationOrdered By: Delfino Reese on 12-23-2021 Appearance (Spun CSF) Colorless Colorless [facility] Cerebrospinal fluid sample t ube volume measurementOrdered By: Delfino Reese on 12-23-2021 Specimen volume (CSF) 2.0 mL [facility] Color CSFOrdered By: Delfino Reese on 12-23-2021 Color (CSF) Colorless Colorless [facility] IgG [Mass/volume] in Cerebra l spinal fluidOrdered By: Delfino Reese on 12-23-2021 IgG (CSF) [Mass/Vol] 1.4 mg/dL 0.0-6.7 [facility] IgG [Mass/volume] in Serum o r PlasmaOrdered By: Delfino Reese on 12-23-2021 IgG [Mass/Vol] 708 mg/dL [phone] [facility] IgG synthesis rate [Mass/aleksey e] in Serum and CSF by calculationOrdered By: Delfino Reese on 12-23-2021 IgG synthesis rate Calc (S+CSF) [Mass/Time] -1.0 mg/day -9.9 TO +3.3 [facility] Comment on above: Performed at: [employer] [facility] [address] [place], [place] [id number] Webbing Tacker: Torsten Vidal PhD, Phone: [phone] Performed at: [employer] [address] [place], [place] [id number] Director: Torsten Vidal PhD, Phone: [phone] Manual cerebrospinal fluid e rythrocytes count (number/volume)Ordered By: Delfino Reese on 12-23-2021 RBC Manual cnt (CSF) [#/Vol] 77 /uL [facility] Comment on above: The reference interv al and other method performance specifications have not been established for this body fluid. The test result must be integrated into the clinical context for interpretation. No Panel InformationOrdered By: Delfino Reese on 12-23-2021 CSF Appearance Clear Clear [facility] CSF Eosinophils N/A [facility] CSF Lymphocytes 1 [facility] Comment on above: The reference interv al and other method performance specifications have not been established for this body fluid. The test result must be integrated into the clinical context for interpretation. CSF Monocytes 1 [facility] Comment on above: The reference interv al and other method performance specifications have not been established for this body fluid. The test result must be integrated into the clinical context for interpretation. CSF Myelin Basic Protein 3.3 ng/mL 0.0-3.7 [facility] Comment on above: Results of this test are labeled for research purposes only by the assay's music professionals. The performance characteristics of this assay have not been established by the music professionals. The result should not be used for treatment or for diagnostic purposes without confirmation of the diagnosis by another medically established diagnostic product or procedure. The performance characteristics were determined by [facility]. Performed at: [address] [id number] Webbing Tacker: Charlie Manriquez MD, Phone: [phone] Results of this test are labeled for research purposes onlyby the assay's music professionals. The performancecharacteristics of this assay have not been established bythe music professionals. The result should not be used fortreatment or for diagnostic purposes without confirmationof the diagnosis by another medically establisheddiagnostic product or procedure. The performancecharacteristics were determined by [facility].Performed at: - [address] [id number] Director: Charlie Manriquez MD, Phone: [phone] CSF Neutrophils N/A [facility] CSF Total Cells Counted 2 [facility] CSF Tube Number Tube number: 1 [facility] Nucleated cells [#/volume] i n Cerebral spinal fluid by Manual countOrdered By: Delfino Reese on 12-23-2021 Nucleated cells Manual cnt (CSF) [#/Vol] 0.002 10*3/uL 0-5 [facility] Protein [Mass/volume] in Cer ebral spinal fluidOrdered By: Delfino Reese on 12-23-2021 Protein (CSF) [Mass/Vol] 23 mg/dL 15-45 [facility] Protein fractions.oligoclona l bands.intrathecal [Presence] in Serum and CSFOrdered By: Delfino Reese on 12-23-2021 Protein fractions.oligoclonal bands.intrathecal Ql (S+CSF) See comment . [facility] Comment on above: Zero (0) oligoclonal bands were observed in the CSF. Interpretation: Criteria for Positivity: Four (4) or more oligoclonal bands observed only in the CSF have been shown to be most consistent with MS using our method. [Morro , Osorio EL, Varghese JUSTIN, and Rebecca JA: Cerebrospinal Fluid Oligoclonal Bands in the Diagnosis [...] Focusing (IEF) and immunoblotting methodology. Performed at: [address] [id number] Webbing Tacker: Torsten Vidal PhD, Phone: [phone] Zero (0) oligoclonal bands were observed in the CSF.Interpretation: Criteria for Positivity: Four (4) or more oligoclonalbands observed only in the CSF have been shown to be mostconsistent with MS using our method. [Morro , Varghese Ivory, and Rebecca JA: Cerebrospinal FluidOligoclonal Bands in the Diagnosis of [...] using IsoelectricFocusing (IEF) and immunoblotting methodology.Performed at: [address] [id number] Director: Torsten Vidal PhD, Phone: [phone] Basophils Auto (Bld) [#/Vol] Ordered By: Avery Blanca on 11-25-2021 Basophils (Bld) [#/Vol] 0.0 10*3/uL 0.0-0.2 [facility] Basophils/100 WBC Auto (Bld) Ordered By: Avery Blanca on 11-25-2021 Basophils/100 WBC (Bld) 0.5 % . [facility] Blood hemoglobin measurement (mass/volume)Ordered By: Avery Blanca on 11-25-2021 Hemoglobin (Bld) [Mass/Vol] 15.4 g/dL 11.8-15.4 [facility] Blood leukocytes automated c ount (number/volume)Ordered By: Avery Blanca on 11-25-2021 WBC (Bld) [#/Vol] 5.3 10*3/uL 4.5-11.0 [facility] Blood thiamine measurement ( moles/volume)Ordered By: Avery Blanca on 11-25-2021 Thiamine (Bld) [Moles/Vol] 113.7 nmol/L 66.5-200.0 [facility] Comment on above: This test was develo ped and its performance characteristics determined by [facility]. It has not been cleared or approved by the Food and Drug Administration. Performed at: [address] [id number] Webbing Tacker: Charlie Manriquez MD, Phone: [phone] This test was develo ped and its performance characteristicsdetermined by [facility]. It has not been cleared orapproved by the Food and Drug Administration.Performed at: [facility] [employer] [id number] Director: Charlie Manriquez MD, Phone: [phone] Body fluid albumin measureme nt (mass/volume)Ordered By: Avery Blanca on 11-25-2021 Albumin (Body fld) [Mass/Vol] 4.0 g/dL 3.2-5.5 [facility] Creatinine and Glomerular fi ltration rate.predicted panel (S/P/Bld)Ordered By: Avery Blanca on 11-25-2021 Creatinine [Mass/Vol] 0.67 mg/dL 0.44-1.03 [facility] Eosinophils Auto (Bld) [#/Vo l]Ordered By: Avery Blanca on 11-25-2021 Eosinophils (Bld) [#/Vol] 0.1 10*3/uL 0.0-0.45 [facility] Eosinophils/100 WBC Auto (Bl d)Ordered By: Avery Blanca on 11-25-2021 Eosinophils/100 WBC (Bld) 1.3 % . [facility] Erythrocyte distribution wid th Auto (RBC) [Ratio]Ordered By: Avery Blanca on 11-25-2021 Erythrocyte distribution width (RBC) [Ratio] 13.5 % 11.9-15.3 [facility] [facility] Erythrocyte sedimentation ra te by Photometric methodOrdered By: Avery Blanca on 11-25-2021 ESR Photometric method (Bld) [Velocity] 14 mm/hr 0- [facility] Estimated glomerular filtrat ion rate (GFR) non- AmericanOrdered By: Avery Blanca on 11-25-2021 GFR/1.73 sq M.predicted among non-blacks MDRD (S/P/Bld) [Vol rate/Area] > 60 mL/Min [facility] Folate [Mass/volume] in Seru m or PlasmaOrdered By: Avery Blanca on 11-25-2021 Folate [Mass/Vol] 9.2 ng/mL >5.9 [facility] Comment on above: Folate reference ran ge: >5.9 ng/ml The WHO technical consultation on folate and vitamin b12 deficiencies has determined that folate concentrations less than 4 ng/ml are considered deficient. Folate reference ran ge: >5.9 ng/mlThe WHO technical consultation on folate and vitamin [id number] has determined that folate concentrations lessthan 4 ng/ml are considered deficient. Globulin Calc (S) [Mass/Vol] Ordered By: Avery Blanca on 11-25-2021 Globulin (S) [Mass/Vol] 2.9 g/dL [facility] Hematocrit Auto (Bld) [Volum e fraction]Ordered By: Avery Blanca on 11-25-2021 Hematocrit (Bld) [Volume fraction] 45.2 % 34.0-46.4 [facility] Laboratory - Chemistry and C hemistry - challengeOrdered By: Avery Blanca on 11-25-2021 Cobalamin (Vitamin B12) [Mass/Vol] 421 pg/mL 180-914 [facility] - Hematology and Cell countsOrdered By: Avery Blanca on 11-25-2021 Nucleated RBC/100 WBC (Bld) [Ratio] 0.6 % 0-0.5 [facility] Lymphocytes Auto (Bld) [#/Vo l]Ordered By: Avery Blanca on 11-25-2021 Lymphocytes (Bld) [#/Vol] 0.8 10*3/uL 1.00-4.8 [facility] Lymphocytes/100 WBC Auto (Bl d)Ordered By: Avery Blanca on 11-25-2021 Lymphocytes/100 WBC (Bld) 14.8 % . [facility] MCH Auto (RBC) [Entitic mass ]Ordered By: Avery Blanca on 11-25-2021 MCH (RBC) [Entitic mass] 32.3 pg 24.7-34.3 [facility] MCHC Auto (RBC) [Mass/Vol]Or dered By: Avery Blanca on 11-25-2021 MCHC (RBC) [Mass/Vol] 34.0 g/dL 32.0-35.0 [facility] MCV Auto (RBC) [Entitic vol] Ordered By: Avery Blanca on 11-25-2021 MCV (RBC) [Entitic vol] 95.1 fL 80-100 [facility] Monocytes Auto (Bld) [#/Vol] Ordered By: Avery Blanca on 11-25-2021 Monocytes (Bld) [#/Vol] 0.2 10*3/uL 0.0-0.8 [facility] Monocytes/100 WBC Auto (Bld) Ordered By: Avery Blanca on 11-25-2021 Monocytes/100 WBC (Bld) 3.4 % . [facility] Neutrophils Auto (Bld) [#/Vo l]Ordered By: Avery Blanca on 11-25-2021 Neutrophils (Bld) [#/Vol] 4.2 10*3/uL 1.8-7.7 [facility] Neutrophils/100 WBC Auto (Bl d)Ordered By: Avery Blanca on 11-25-2021 Neutrophils/100 WBC (Bld) 80.0 % . [facility] No Panel InformationOrdered By: Avery Blanca on 11-25-2021 Estimated GFR () > 60 mL/Min [facility] Comment on above: GFR estimated refere nce range: According to KDOQI guidelines, <60 ml/min/1.73m2 is sufficient to diagnose a patient with chronic kidney disease. Pharmacy Creatinine Clearance (Chem N/A [facility] Platelet mean volume Auto (B ld) [Entitic vol]Ordered By: Avery Blanca on 11-25-2021 Platelet mean volume (Bld) [Entitic vol] 9.1 fL 6.3-10.7 [facility] Platelets Auto (Bld) [#/Vol] Ordered By: Avery Blanca on 11-25-2021 Platelets (Bld) [#/Vol] 210 10*3/uL 150-450 [facility] Protein [Mass/volume] in Ser um or PlasmaOrdered By: Avery Blanca on 11-25-2021 Protein [Mass/Vol] 6.9 g/dL 6.1-7.9 [facility] RBC Auto (Bld) [#/Vol]Ordere d By: Avery Blanca on 11-25-2021 RBC (Bld) [#/Vol] 4.75 10*6/uL 3.60-5.00 [facility] Serum or plasma alanine montes otransferase measurement without P-5'-P (enzymatic activiOrdered By: Avery Blanca on 11-25-2021 ALT No additional P-5'-P [Catalytic activity/Vol] 130 U/L 10-60 [facility] Serum or plasma albumin/glob ulin mass ratioOrdered By: Avery Blanca on 11-25-2021 Albumin/Globulin [Mass ratio] 1.4 {ratio} [facility] Serum or plasma alkaline florencio sphatase measurement (enzymatic activity/volume)Ordered By: Avery Blanca on 11-25-2021 ALP [Catalytic activity/Vol] 74 U/L 32-92 [facility] Serum or plasma aspartate am inotransferase measurement (enzymatic activity/volume)Ordered By: Avery Blanca on 11-25-2021 AST [Catalytic activity/Vol] 117 U/L 10-42 [facility] Serum or plasma calcium archie urement (mass/volume)Ordered By: Avery Blanca on 11-25-2021 Calcium [Mass/Vol] 9.6 mg/dL 8.2-10.2 [facility] Serum or plasma chloride luz surement (moles/volume)Ordered By: Avery Blanca on 11-25-2021 Chloride [Moles/Vol] 98 mmol/L 95-114 [facility] Serum or plasma glucose archie urement (mass/volume)Ordered By: Avery Blanca on 11-25-2021 Glucose [Mass/Vol] 121 mg/dL 70-100 [facility] Comment on above: ADA recommended refe [...] plasma potassium me asurement (moles/volume)Ordered By: Avery Blanca on 11-25-2021 Potassium [Moles/Vol] 3.6 mmol/L 3.5-5.1 [facility] Serum or plasma sodium measu rement (moles/volume)Ordered By: Avery Blanca on 11-25-2021 Sodium [Moles/Vol] 139 mmol/L 136-146 [facility] Serum or plasma total biliru bin measurement (mass/volume)Ordered By: Avery Blanca on 11-25-2021 Bilirubin [Mass/Vol] 0.8 mg/dL 0.3-1.2 [facility] Serum or plasma total carbon dioxide measurement (moles/volume)Ordered By: Avery Blanca on 11-25-2021 CO2 [Moles/Vol] 28.4 mmol/L 22.0-30.0 [facility] Serum or plasma urea nitroge n measurement (mass/volume)Ordered By: Avery Blanca on 11-25-2021 Urea nitrogen [Mass/Vol] 5 mg/dL 9-23 [facility] TSH DL <= 0.005 mIU/L QnOrde red By: Avery Blanca on 11-25-2021 TSH Qn 2.02 m[IU]/L 0.45-5.33 [facility] AMYLASEon 11-20-2021 Amylase [Catalytic activity/Vol] 15 U/L Critically low 25-115 [facility] Comment on above: Performed By: #### L IPA, NGA, CMP #### [facility] [address] [place] [address] Dr. Angela Aguero CBC W MANUAL DIFFon 11-21-19 22 ATYPICAL LYMPH # Normal [facility] Comment on above: Performed By: #### C KRISHAN #### [facility] [address] [address] [address] Angela Aguero ATYPICAL LYMPH % Normal [facility] Comment on above: Performed By: #### C KRISHAN #### [facility] [address] [address] [address] Angela Aguero BAND # 0.2 103/ul Normal 0.0-0.3 [facility] Comment on above: Performed By: #### C BCMAN #### [facility] [address] [place] [address] Dr. Angela Aguero BAND % 3 % Normal 0-5 [facility] Comment on above: Performed By: #### C BCMAN #### [facility] [address] [place] [address] Dr. Angela Aguero BASOM # 0.00 103/ul Normal 0.00-0.10 [facility] Comment on above: Performed By: #### C BCMAN #### [facility] [address] [place] [address] Dr. Angela Aguero BASOM % 0.0 % Critically low 0.2-2.0 [facility] Comment on above: Performed By: #### C BCSOLANGE #### [facility] [address] [place] [address] Dr. Angela Aguero BLAST # Normal [facility] Comment on above: Performed By: #### C KRISHAN #### [facility] [address] [place] [address] Dr. Angela Aguero BLAST % Normal [facility] Comment on above: Performed By: #### C BCSOLANGE #### [facility] [address] [place] [address] Dr. Angela Aguero CORRECTED WBC Normal 4.0-11.0 [facility] Comment on above: Performed By: #### C BCMAN #### [facility] [address] [place] [address] Dr. Angela Aguero EOS # 0.00 103/ul Normal 0.00-0.70 [facility] Comment on above: Performed By: #### C BCMAN #### [facility] [address] [place] [address] Dr. Angela Aguero EOS% 0.0 % Critically low 0.9-7.0 [facility] Comment on above: Performed By: #### C BCSOLANGE #### [facility] [address] [place] [address] Dr. Angela Aguero HCT 41.2 % Normal 36.0-48.0 [facility] Comment on above: Performed By: #### C KRISHAN #### [facility] [address] [place] [address] Dr. Angela Aguero HGB 14.2 g/dl Normal 12.0-16.0 [facility] Comment on above: Performed By: #### C KRISHAN #### [facility] [address] [place] [address] Dr. Angela Aguero LYMPHM # 0.19 103/ul Critically low 1.20-3.80 [facility] Comment on above: Performed By: #### C KRISHAN #### [facility] [address] [place] [address] Dr. Angela Aguero LYMPHM% 3.0 % Critically low 20.5-60.0 [facility] Comment on above: Performed By: #### C KRISHAN #### [facility] [address] [place] [address] Dr. Angela Aguero MCH 32.4 pg Normal 26.7-34.0 [facility] Comment on above: Performed By: #### C KRISHAN #### [facility] [address] [place] [address] Dr. Angela Aguero MCHC 34.5 g/dl Normal 29.9-35.2 [facility] Comment on above: Performed By: #### C KRISHAN #### [facility] [address] [place] [address] Dr. Angela Aguero MCV 94.1 fL Normal 81.0-99.0 [facility] Comment on above: Performed By: #### C KRISHAN #### [facility] [address] [place] [address] Dr. Angela Aguero METAMYELOCYTE # Normal [facility] Comment on above: Performed By: #### C KRISHAN #### [facility] [address] [place] [address] Dr. Angela Aguero METAMYELOCYTE % Normal [facility] Comment on above: Performed By: #### C KRISHAN #### [facility] [address] [address] [address] Angela Aguero MONOM# 0.32 103/ul Normal 0.30-0.80 [facility] Comment on above: Performed By: #### C KRISHAN #### [facility] [address] [place] [address] Dr. Angela Aguero MONOM% 5.0 % Normal 1.7-12.0 [facility] Comment on above: Performed By: #### C KRISHAN #### [facility] [address] [place] [address] Dr. Angela Aguero MPV 10.4 fL Normal 9.5-13.5 [facility] Comment on above: Performed By: #### C KRISHAN #### [facility] [address] [place] [address] Dr. Angela Aguero MYELOCYTE # Normal [facility] Comment on above: Performed By: #### Jeannette NICKERSON #### [facility] [address] [place] [address] Dr. Angela Aguero MYELOCYTE % Normal [facility] Comment on above: Performed By: #### C KRISHAN #### [facility] [address] [place] [address] Dr. Angela Aguero NRBC Normal [facility] Comment on above: Performed By: #### C KRISHAN #### [facility] [address] [place] [address] Dr. Angela Aguero PLT 204 103/ul Normal 150-450 [facility] Comment on above: Performed By: #### C KRISHAN #### [facility] [address] [place] [address] Dr. Angela Aguero RBC 4.38 106/ul Normal 4.20-5.40 [facility] Comment on above: Performed By: #### C KRISHAN #### [facility] [address] [place] [address] Dr. Angela Aguero RDW 12.4 % Normal 11.0-15.0 [facility] Comment on above: Performed By: #### C KRISHAN #### [facility] [address] [place] [address] Dr. Angela Aguero SEG # 5.70 103/ul Normal 1.40-6.50 [facility] Comment on above: Performed By: #### C KRISHAN #### [facility] [address] [address] [address] Angela Aguero SEG % 89.0 % Critically high 43.0-75.0 [facility] Comment on above: Performed By: #### C KRISHAN #### [facility] [address] [address] [address] Angela Aguero WBC 6.4 103/ul Normal 4.0-11.0 [facility] Comment on above: Performed By: #### C KRISHAN #### [facility] [address] [address] [address] Angela Aguero CRPon 11-20-2021 CRP [Mass/Vol] mg/L Normal <=1.0 [facility] Comment on above: Performed By: #### L NAG SMITH, CMP #### [facility] [address] [place] [address] Dr. Angela Aguero LIPASEon 11-20-2021 Lipase [Catalytic activity/Vol] 28.0 U/L Critically low 73.0-393.0 [facility] Comment on above: Performed By: #### L NGA SMITH, CMP #### [facility] [address] [place] [address] Dr. Angela Aguero PROF 14(COMP METB)on 022 Albumin [Mass/Vol] 3.4 g/dL Normal 3.4-5.0 [facility] Comment on above: Performed By: #### L NGA SMITH, CMP #### [facility] [address] [place] [address] Dr. Angela Aguero Albumin/Globulin [Mass ratio] 1.0 {ratio} Normal [facility] Comment on above: Performed By: #### L NGA SMITH, CMP #### [facility] [address] [place] [address] Dr. Angela Aguero ALP [Catalytic activity/Vol] 63 U/L Normal 46-116 [facility] Comment on above: Performed By: #### L IPA, NGA, CMP #### [facility] [address] [address] [address] Angela Aguero ALT [Catalytic activity/Vol] 55 U/L Normal 14-59 [facility] Comment on above: Performed By: #### L IPA, NGA, CMP #### [facility] [address] [address] [address] Angela Aguero Anion gap [Moles/Vol] 13.3 mmol/L Normal [facility] Comment on above: Performed By: #### L IPA, NGA, CMP #### [facility] [address] [address] [address] Angela Aguero AST [Catalytic activity/Vol] 39 U/L Critically high 15-37 [facility] Comment on above: Performed By: #### L IPA, NGA, CMP #### [facility] [address] [place] [address] Dr. Angela Aguero Bilirubin [Mass/Vol] 1.1 mg/dL Critically high 0.2-1.0 [facility] Comment on above: Performed By: #### L IPA, NGA, CMP #### [facility] [address] [place] [address] Dr. Angela Aguero Calcium [Mass/Vol] 7.9 mg/dL Critically low 8.5-10.1 [facility] Comment on above: Performed By: #### L IPA, NGA, CMP #### [facility] [address] [place] [address] Dr. Angela Aguero Chloride [Moles/Vol] 103 mmol/L Normal 98-107 [facility] Comment on above: Performed By: #### L IPA, NGA, CMP #### [facility] [address] [place] [address] Dr. Angela Aguero CO2 [Moles/Vol] 26.9 mmol/L Normal 21.0-32.0 [facility] Comment on above: Performed By: #### L IPA, NGA, CMP #### [facility] [address] [place] [address] Dr. Angela Aguero Creatinine [Mass/Vol] 0.81 mg/dL Normal 0.55-1.02 [facility] Comment on above: Performed By: #### L NGA SMITH, CMP #### [facility] [address] [place] [address] Dr. Angela Aguero EGFR-AF MOLDOVAN >60 Normal >=60 [facility] Comment on above: Performed By: #### L NGA SMITH, CMP #### [facility] [address] [address] [address] Angela Aguero EGFR-NON AF MOLDOVAN >60 Normal >=60 [facility] Comment on above: Performed By: #### L NGA SMITH, CMP #### [facility] [address] [place] [address] Dr. Angela Aguero Globulin (S) [Mass/Vol] 3.3 g/dL Normal [facility] Comment on above: Performed By: #### L NGA SMITH, CMP #### [facility] [address] [place] [address] Dr. Angela Aguero Glucose [Mass/Vol] 185 mg/dL Critically high 74-106 [facility] Comment on above: Performed By: #### L NGA SMITH, CMP #### [facility] [address] [place] [address] Dr. Angela Aguero Potassium [Moles/Vol] 3.2 mmol/L Critically low 3.5-5.1 [facility] Comment on above: Performed By: #### L NGA SMITH, CMP #### [facility] [address] [place] [address] Dr. Angela Aguero Protein [Mass/Vol] 6.7 g/dL Normal 6.4-8.2 [facility] Comment on above: Performed By: #### L NGA SMITH, CMP #### [facility] [address] [place] [address] Dr. Angela Aguero Sodium [Moles/Vol] 140 mmol/L Normal 136-145 [facility] Comment on above: Performed By: #### L NGA SMITH, CMP #### [facility] [address] [place] [address] Dr. Angela Aguero Urea nitrogen [Mass/Vol] 8.0 mg/dL Normal 7.0-18.0 [facility] Comment on above: Performed By: #### L IPA, NGA, CMP #### [facility] [address] [place] [address] Dr. Angela Aguero Urea nitrogen/Creatinine [Mass ratio] 9.9 mg/mg Normal [facility] Comment on above: Performed By: #### L IPA, NGA, CMP #### [facility] [address] [place] [address] Dr. Angela Aguero SED RATE WESTERGRENon 2021 SED RATE 3 mm/hr Normal <=20 [facility] Comment on above: Performed By: #### S EDR #### [facility] [address] [place] [address] Dr. Angela Aguero AMYLASEon 11-19-2021 Amylase [Catalytic activity/Vol] 17 U/L Critically low 25-115 [facility] Comment on above: Performed By: #### C MP, NGA, CRP, LIPA #### [facility] [address] [place] [address] Dr. Angela Aguero CBC AUTO DIFFon 11-19-2021 BASO # 0.0 103/ul Normal 0.0-0.1 [facility] Comment on above: Performed By: #### L IPA, NGA, CMP #### [facility] [address] [place] [address] Dr. Angela Aguero Basophils/100 WBC (Bld) 0.6 % Normal 0.2-2.0 [facility] Comment on above: Performed By: #### L IPA, NGA, CMP #### [facility] [address] [place] [address] Dr. Angela Aguero EO # 0.0 103/ul Normal 0.0-0.7 [facility] Comment on above: Performed By: #### L IPA, NGA, CMP #### [facility] [address] [place] [address] Dr. Angela Aguero Eosinophils/100 WBC (Bld) 0.0 % Critically low 0.9-7.0 [facility] Comment on above: Performed By: #### L NGA SMITH, CMP #### [facility] [address] [place] [address] Dr. Angela Aguero Erythrocyte distribution width (RBC) [Ratio] 12.9 % Normal 11.0-15.0 [facility] Comment on above: Performed By: #### L NGA SMITH, CMP #### [facility] [address] [place] [address] Dr. Angela Aguero Hematocrit (Bld) [Volume fraction] 43.3 % Normal 36.0-48.0 [facility] Comment on above: Performed By: #### L NGA SMITH, CMP #### [facility] [address] [place] [address] Dr. Angela Aguero Hemoglobin (Bld) [Mass/Vol] 14.7 g/dL Normal 12.0-16.0 [facility] Comment on above: Performed By: #### L NGA SMITH, CMP #### [facility] [address] [place] [address] Dr. Angela Aguero IG # 0.02 10e3/ul Normal 0.00-0.03 [facility] Comment on above: Performed By: #### L NGA SMITH, CMP #### [facility] [address] [place] [address] Dr. Angela Aguero IG % 0.6 % Critically high 0.0-0.5 [facility] Comment on above: Performed By: #### L NGA SMITH, CMP #### [facility] [address] [place] [address] Dr. Angela Aguero LYMPH # 0.3 103/ul Critically low 1.2-3.8 [facility] Comment on above: Performed By: #### L NGA SMITH, CMP #### [facility] [address] [place] [address] Dr. Angela Aguero Lymphocytes/100 WBC (Bld) 8.9 % Critically low 20.5-60.0 [facility] Comment on above: Performed By: #### L NGA SMITH, CMP #### [facility] [address] [place] [address] Dr. Angela Aguero MANUAL DIFF REQ NO Normal [facility] Comment on above: Performed By: #### L NGA SMITH, CMP #### [facility] [address] [place] [address] Dr. Angela Aguero MCH (RBC) [Entitic mass] 32.5 pg Normal 26.7-34.0 [facility] Comment on above: Performed By: #### L NGA SMITH, CMP #### [facility] [address] [place] [address] Dr. Angela Aguero MCHC (RBC) [Mass/Vol] 33.9 g/dL Normal 29.9-35.2 [facility] Comment on above: Performed By: #### L NGA SMITH, CMP #### [facility] [address] [place] [address] Dr. Angela Aguero MCV (RBC) [Entitic vol] 95.6 fL Normal 81.0-99.0 [facility] Comment on above: Performed By: #### L NGA SMITH, CMP #### [facility] [address] [place] [address] Dr. Angela Aguero MONO # 0.0 103/ul Critically low 0.3-0.8 [facility] Comment on above: Performed By: #### L NGA SMITH, CMP #### [facility] [address] [place] [address] Dr. Angela Aguero Monocytes/100 WBC (Bld) 0.6 % Critically low 1.7-12.0 [facility] Comment on above: Performed By: #### L NGA SMITH, CMP #### [facility] [address] [place] [address] Dr. Angela Aguero NEUT # 3.1 103/ul Normal 1.4-6.5 [facility] Comment on above: Performed By: #### L NGA SMITH, CMP #### [facility] [address] [place] [address] Dr. Angela Aguero Neutrophils/100 WBC (Bld) 89.3 % Critically high 43.0-75.0 [facility] Comment on above: Performed By: #### L IPA, NGA, CMP #### [facility] [address] [address] [address] Angela Aguero Platelet mean volume (Bld) [Entitic vol] 10.6 fL Normal 9.5-13.5 [facility] Comment on above: Performed By: #### L IPA, NGA, CMP #### [facility] [address] [address] [address] Angela Aguero PLT 212 103/ul Normal 150-450 [facility] Comment on above: Performed By: #### L IPA, NGA, CMP #### [facility] [address] [address] [address] Angela Aguero RBC 4.53 106/ul Normal 4.20-5.40 [facility] Comment on above: Performed By: #### L IPA, NGA, CMP #### [facility] [address] [place] [address] Dr. Angela Aguero WBC 3.5 103/ul Critically low 4.0-11.0 [facility] Comment on above: Performed By: #### L IPA, NGA, CMP #### [facility] [address] [place] [address] Dr. Angela Aguero CRPon 11-19-2021 CRP [Mass/Vol] mg/L Normal <=1.0 [facility] Comment on above: Performed By: #### C MP, NGA, CRP, LIPA #### [facility] [address] [address] [address] Angela Aguero ER URINE PROFILEon 2 Bilirubin Ql (U) Negative Normal NEGATIVE [facility] Comment on above: Performed By: #### L IPA, NGA, CMP #### [facility] [address] [place] [address] Dr. Angela Aguero Clarity (U) CLEAR Normal CLEAR [facility] Comment on above: Performed By: #### L IPA, NGA, CMP #### [facility] [address] [place] [address] Dr. Angela Aguero Color (U) DK. ORANGE Abnormal YELLOW [facility] Comment on above: Performed By: #### L IPA NGA, CMP #### [facility] [address] [address] [address] Angela CARRASCO A micrscopic examina tion will be performed if indicated. Normal [facility] Comment on above: Performed By: #### L IPA NGA, CMP #### [facility] [address] [address] [address] Angela Aguero Glucose Ql (U) Negative Normal NEGATIVE [facility] Comment on above: Performed By: #### L IPA NGA, CMP #### [facility] [address] [address] [address] Angela Aguero Hemoglobin Ql (U) Negative Normal NEGATIVE [facility] Comment on above: Performed By: #### L IPA NGA, CMP #### [facility] [address] [place] [address] Dr. Angela Aguero Ketones Ql (U) 40 mg/dl Abnormal NEGATIVE [facility] Comment on above: Performed By: #### L IPA NGA, CMP #### [facility] [address] [place] [address] Dr. Angela Aguero LEUKOCYTES Negative Normal NEGATIVE [facility] Comment on above: Performed By: #### L IPA NGA, CMP #### [facility] [address] [place] [address] Dr. Angela Aguero Nitrite Ql (U) Negative Normal NEGATIVE [facility] Comment on above: Performed By: #### L IPA NGA, CMP #### [facility] [address] [place] [address] Dr. Angela Aguero pH (U) 5.5 [pH] Normal 5-9 [facility] Comment on above: Performed By: #### L IPA NGA, CMP #### [facility] [address] [place] [address] Dr. Angela Aguero Protein (U) [Mass/Vol] 30 mg/dL Abnormal NEGAT DARIO/ TRACE [facility] Comment on above: Performed By: #### L IPA NGA, CMP #### [facility] [address] [place] [address] Dr. Angela Aguero SPEC GRAVITY >=1.030 Abnormal 1.005-<=1. 025 [facility] Comment on above: Performed By: #### L IPANGA, CMP #### [facility] [address] [place] [address] Dr. Angela Aguero UR MICRO IND INDICATED Normal [facility] Comment on above: Performed By: #### L IPA NGA, CMP #### [facility] [address] [place] [address] Dr. Angela Aguero Urobilinogen Qn (U) 1.0 {Concetta'U}/dL Normal 0.2 - 1. 0 [facility] Comment on above: Performed By: #### L IPA NGA, CMP #### [facility] [address] [place] [address] Dr. Angela Aguero LIPASEon 11-19-2021 Lipase [Catalytic activity/Vol] 22.0 U/L Critically low 73.0-393.0 [facility] Comment on above: Performed By: #### C MP, NGA, CRP, LIPA #### [facility] [address] [place] [address] Dr. Angela Aguero PROF 14(COMP METB)on 022 Albumin [Mass/Vol] 3.7 g/dL Normal 3.4-5.0 [facility] Comment on above: Performed By: #### C MP, NGA, CRP, LIPA #### [facility] [address] [place] [address] Dr. Angela Aguero Albumin/Globulin [Mass ratio] 1.0 {ratio} Normal [facility] Comment on above: Performed By: #### C MP, NGA, CRP, LIPA #### [facility] [address] [place] [address] Dr. Angela Aguero ALP [Catalytic activity/Vol] 73 U/L Normal 46-116 [facility] Comment on above: Performed By: #### C MP, NGA, CRP, LIPA #### [facility] [address] [place] [address] Dr. Angela Aguero ALT [Catalytic activity/Vol] 78 U/L Critically high 14-59 [facility] Comment on above: Performed By: #### C MP, NGA, CRP, LIPA #### [facility] [address] [address] [address] Angela Aguero Anion gap [Moles/Vol] 16.5 mmol/L Normal [facility] Comment on above: Performed By: #### C MP, NGA, CRP, LIPA #### [facility] [address] [address] [address] Angela Aguero AST [Catalytic activity/Vol] 62 U/L Critically high 15-37 [facility] Comment on above: Performed By: #### C MP, NGA, CRP, LIPA #### [facility] [address] [place] [address] Dr. Angela Aguero Bilirubin [Mass/Vol] 1.3 mg/dL Critically high 0.2-1.0 [facility] Comment on above: Performed By: #### C MP, NGA, CRP, LIPA #### [facility] [address] [place] [address] Dr. Angela Aguero Calcium [Mass/Vol] 8.2 mg/dL Critically low 8.5-10.1 [facility] Comment on above: Performed By: #### C MP, NGA, CRP, LIPA #### [facility] [address] [place] [address] Dr. Angela Aguero Chloride [Moles/Vol] 101 mmol/L Normal 98-107 [facility] Comment on above: Performed By: #### C MP, NGA, CRP, LIPA #### [facility] [address] [place] [address] Dr. Angela Aguero CO2 [Moles/Vol] 23.5 mmol/L Normal 21.0-32.0 [facility] Comment on above: Performed By: #### C MP, NGA, CRP, LIPA #### [facility] [address] [place] [address] Dr. Angela Aguero Creatinine [Mass/Vol] 0.81 mg/dL Normal 0.55-1.02 [facility] Comment on above: Performed By: #### C MP, NGA, CRP, LIPA #### [facility] [address] [address] [address] Angela Aguero EGFR-AF MOLDOVAN >60 Normal >=60 [facility] Comment on above: Performed By: #### C MP, NGA, CRP, LIPA #### [facility] [address] [address] [address] Angela Aguero EGFR-NON AF MOLDOVAN >60 Normal >=60 [facility] Comment on above: Performed By: #### C MP, NGA, CRP, LIPA #### [facility] [address] [address] [address] Angela Aguero Globulin (S) [Mass/Vol] 3.7 g/dL Normal [facility] Comment on above: Performed By: #### C MP, NGA, CRP, LIPA #### [facility] [address] [address] [address] Angela Aguero Glucose [Mass/Vol] 190 mg/dL Critically high 74-106 [facility] Comment on above: Performed By: #### C MP, NGA, CRP, LIPA #### [facility] [address] [address] [address] Angela Aguero Potassium [Moles/Vol] 4.0 mmol/L Normal 3.5-5.1 [facility] Comment on above: Performed By: #### C MP, NGA, CRP, LIPA #### [facility] [address] [address] [address] Angela Aguero Protein [Mass/Vol] 7.4 g/dL Normal 6.4-8.2 [facility] Comment on above: Performed By: #### C MP, NGA, CRP, LIPA #### [facility] [address] [place] [address] Dr. Angela Aguero Sodium [Moles/Vol] 137 mmol/L Normal 136-145 [facility] Comment on above: Performed By: #### C MP, NGA, CRP, LIPA #### [facility] [address] [place] [address] Dr. Angela Aguero Urea nitrogen [Mass/Vol] 5.0 mg/dL Critically low 7.0-18.0 [facility] Comment on above: Performed By: #### C MP, NGA, CRP, LIPA #### [facility] [address] [place] [address] Dr. Angela Aguero Urea nitrogen/Creatinine [Mass ratio] 6.2 mg/mg Normal [facility] Comment on above: Performed By: #### C MP, NGA, CRP, LIPA #### [facility] [address] [place] [address] Dr. Angela Aguero SED RATE WESTERGRENon 2021 SED RATE 10 mm/hr Normal <=20 [facility] Comment on above: Performed By: #### L NGA SMITH, CMP #### [facility] [address] [place] [address] Dr. Angela Aguero URINE MICROSCOPIC ONLYon BACTERIA TRACE Abnormal NONE SEEN [facility] Comment on above: Performed By: #### L NGA SMITH, CMP #### [facility] [address] [place] [address] Dr. Angela Aguero Bacteria identified Cx Nom (U) NOT INDICATED Normal [facility] Comment on above: Performed By: #### L NGA SMITH, CMP #### [facility] [address] [place] [address] Dr. Angeal Aguero CAST SEEN Abnormal NONE SEEN [facility] Comment on above: Performed By: #### L LUIS NGA, CMP #### [facility] [address] [place] [address] Dr. Angela Aguero Crystals LM Nom (Urine sed) NONE SEEN Normal NONE SEEN [facility] Comment on above: Performed By: #### L NGA SMITH, CMP #### [facility] [address] [place] [address] Dr. Angela Aguero Epithelial cells LM Ql (Urine sed) RARE Normal NONE SEEN /RARE [facility] Comment on above: Performed By: #### L IPA NGA, CMP #### [facility] [address] [place] [address] Dr. Angela Aguero FINE GRANULAR CAST RARE Normal [facility] Comment on above: Performed By: #### L IPA, NGA, CMP #### [facility] [address] [address] [address] Angela Aguero HYALINE CAST RARE Normal [facility] Comment on above: Performed By: #### L IPA, NGA, CMP #### [facility] [address] [address] [address] Angela Aguero MUCOUS TRACE Abnormal NONE SEEN [facility] Comment on above: Performed By: #### L IPA, NGA, CMP #### [facility] [address] [address] [address] Angela Aguero RBC NONE SEEN Abnormal 0-2 [facility] Comment on above: Performed By: #### L IPA NGA, CMP #### [facility] [address] [place] [address] Dr. Angela Aguero WBC NONE SEEN Normal NONE SEEN [facility] Comment on above: Performed By: #### L IPA NGA, CMP #### [facility] [address] [place] [address] Dr. Angela Aguero AMYLASEon 11-18-2021 Amylase [Catalytic activity/Vol] 20 U/L Critically low 25-115 [facility] Comment on above: Performed By: #### L IPA NGA, CMP #### [facility] [address] [place] [address] Dr. Angela Aguero BILIRUBIN CONJUGATED (DIRECT )on 11-18-2021 BILI, CONJUGATED 0.4 mg/dL Critically high 0.0-0.2 [facility] Comment on above: Performed By: #### L IPA NGA, CMP #### [facility] [address] [address] [address] Angela Aguero CBC AUTO DIFFon 11-18-2021 BASO # 0.1 103/ul Normal 0.0-0.1 [facility] Comment on above: Performed By: #### L IPA NGA, CMP #### [facility] [address] [address] [address] Angela Aguero Basophils/100 WBC (Bld) 2.4 % Critically high 0.2-2.0 [facility] Comment on above: Performed By: #### L NGA SMITH, CMP #### [facility] [address] [place] [address] Dr. Angela Aguero EO # 0.0 103/ul Normal 0.0-0.7 [facility] Comment on above: Performed By: #### L NGA SMITH, CMP #### [facility] [address] [place] [address] Dr. Angela Aguero Eosinophils/100 WBC (Bld) 0.2 % Critically low 0.9-7.0 [facility] Comment on above: Performed By: #### L NGA SMITH CMP #### [facility] [address] [place] [address] Dr. Angela Aguero Erythrocyte distribution width (RBC) [Ratio] 12.8 % Normal 11.0-15.0 [facility] Comment on above: Performed By: #### L NGA SMITH CMP #### [facility] [address] [place] [address] Dr. Angela Aguero Hematocrit (Bld) [Volume fraction] 47.4 % Normal 36.0-48.0 [facility] Comment on above: Performed By: #### L NGA SMITH CMP #### [facility] [address] [place] [address] Dr. Angela Aguero Hemoglobin (Bld) [Mass/Vol] 16.6 g/dL Critically high 12.0-16.0 [facility] Comment on above: Performed By: #### L NGA SMITH, CMP #### [facility] [address] [place] [address] Dr. Angela Aguero IG # 0.02 10e3/ul Normal 0.00-0.03 [facility] Comment on above: Performed By: #### L NAG SMITH, CMP #### [facility] [address] [place] [address] Dr. Angela Aguero IG % 0.4 % Normal 0.0-0.5 [facility] Comment on above: Performed By: #### L NGA SMITH, CMP #### [facility] [address] [address] [address] Angela Aguero LYMPH # 0.9 103/ul Critically low 1.2-3.8 [facility] Comment on above: Performed By: #### L NGA SMITH, CMP #### [facility] [address] [address] [address] Angela Aguero Lymphocytes/100 WBC (Bld) 17.2 % Critically low 20.5-60.0 [facility] Comment on above: Performed By: #### L NGA SMITH, CMP #### [facility] [address] [address] [address] Angela Aguero MANUAL DIFF REQ NO Normal [facility] Comment on above: Performed By: #### L NGA SMITH, CMP #### [facility] [address] [place] [address] Dr. Angela Aguero MCH (RBC) [Entitic mass] 32.4 pg Normal 26.7-34.0 [facility] Comment on above: Performed By: #### L NGA SMITH, CMP #### [facility] [address] [place] [address] Dr. Angela Aguero MCHC (RBC) [Mass/Vol] 35.0 g/dL Normal 29.9-35.2 [facility] Comment on above: Performed By: #### L NGA SMITH, CMP #### [facility] [address] [place] [address] Dr. Angela Aguero MCV (RBC) [Entitic vol] 92.4 fL Normal 81.0-99.0 [facility] Comment on above: Performed By: #### L NGA SMITH, CMP #### [facility] [address] [place] [address] Dr. Angela Aguero MONO # 0.6 103/ul Normal 0.3-0.8 [facility] Comment on above: Performed By: #### L NGA SMITH, CMP #### [facility] [address] [place] [address] Dr. Angela Aguero Monocytes/100 WBC (Bld) 10.7 % Normal 1.7-12.0 [facility] Comment on above: Performed By: #### L NGA SMITH, CMP #### [facility] [address] [place] [address] Dr. Angela Aguero NEUT # 3.7 103/ul Normal 1.4-6.5 [facility] Comment on above: Performed By: #### L NGA SMITH, CMP #### [facility] [address] [place] [address] Dr. Angela Aguero Neutrophils/100 WBC (Bld) 69.1 % Normal 43.0-75.0 [facility] Comment on above: Performed By: #### L NGA SMITH, CMP #### [facility] [address] [place] [address] Dr. Angela Aguero Platelet mean volume (Bld) [Entitic vol] 10.1 fL Normal 9.5-13.5 [facility] Comment on above: Performed By: #### L NGA SMITH, CMP #### [facility] [address] [place] [address] Dr. Angela Aguero PLT 279 103/ul Normal 150-450 [facility] Comment on above: Performed By: #### L NGA SMITH, CMP #### [facility] [address] [place] [address] Dr. Angela Aguero RBC 5.13 106/ul Normal 4.20-5.40 [facility] Comment on above: Performed By: #### L NGA SMITH, CMP #### [facility] [address] [place] [address] Dr. Angela Aguero WBC 5.4 103/ul Normal 4.0-11.0 [facility] Comment on above: Performed By: #### L NGA SMITH, CMP #### [facility] [address] [place] [address] Dr. Angela Aguero Covid-19 PCR ([facility])on 11-07 SARS-CoV-2 (COVID-19) RNA GOPAL+probe Ql (Unsp spec) Not detected Normal NOT DETECTED [facility] Comment on above: Result Comment: When [...] for this test is supported by the Regulatory Submissions Associate of Health and Human Service's declaration that [...] longer be used). Performed By: #### L NGA SMITH, CMP #### [facility] [address] [place] [address] Dr. Angela Aguero LIPASEon 11-18-2021 Lipase [Catalytic activity/Vol] 25.0 U/L Critically low 73.0-393.0 [facility] Comment on above: Performed By: #### L NGA SMITH, CMP #### [facility] [address] [place] [address] Dr. Angela Aguero PROF 14(COMP METB)on 022 Albumin [Mass/Vol] 4.4 g/dL Normal 3.4-5.0 [facility] Comment on above: Performed By: #### L NGA SMITH, CMP #### [facility] [address] [place] [address] Dr. Angela Aguero Albumin/Globulin [Mass ratio] 1.1 {ratio} Normal [facility] Comment on above: Performed By: #### L NGA SMITH, CMP #### [facility] [address] [place] [address] Dr. Angela Aguero ALP [Catalytic activity/Vol] 83 U/L Normal 46-116 [facility] Comment on above: Performed By: #### L NGA SMITH, CMP #### [facility] [address] [place] [address] Dr. Angela Aguero ALT [Catalytic activity/Vol] 95 U/L Critically high 14-59 [facility] Comment on above: Performed By: #### L NGA SMITH, CMP #### [facility] [address] [place] [address] Dr. Angela Aguero Anion gap [Moles/Vol] 20.2 mmol/L Normal [facility] Comment on above: Performed By: #### L NGA SMITH, CMP #### [facility] [address] [place] [address] Dr. Angela Aguero AST [Catalytic activity/Vol] 84 U/L Critically high 15-37 [facility] Comment on above: Performed By: #### L NGA SMITH, CMP #### [facility] [address] [place] [address] Dr. Angela Aguero Bilirubin [Mass/Vol] 1.1 mg/dL Critically high 0.2-1.0 [facility] Comment on above: Performed By: #### L NGA SMITH, CMP #### [facility] [address] [place] [address] Dr. Angela Aguero Calcium [Mass/Vol] 8.9 mg/dL Normal 8.5-10.1 [facility] Comment on above: Performed By: #### L NGA SMITH, CMP #### [facility] [address] [place] [address] Dr. Angela Aguero Chloride [Moles/Vol] 99 mmol/L Normal 98-107 [facility] Comment on above: Performed By: #### L NGA SMITH, CMP #### [facility] [address] [place] [address] Dr. Angela Aguero CO2 [Moles/Vol] 23.3 mmol/L Normal 21.0-32.0 [facility] Comment on above: Performed By: #### L NGA SMITH, CMP #### [facility] [address] [place] [address] Dr. Angela Aguero Creatinine [Mass/Vol] 0.97 mg/dL Normal 0.55-1.02 [facility] Comment on above: Performed By: #### L NGA SMITH, CMP #### [facility] [address] [address] [address] Angela Aguero EGFR-AF MOLDOVAN >60 Normal >=60 [facility] Comment on above: Performed By: #### L NGA SMITH, CMP #### [facility] [address] [address] [address] Angela Aguero EGFR-NON AF MOLDOVAN >60 Normal >=60 [facility] Comment on above: Performed By: #### L NGA SMITH, CMP #### [facility] [address] [address] [address] Angela Aguero Globulin (S) [Mass/Vol] 3.9 g/dL Normal [facility] Comment on above: Performed By: #### L NGA SMITH, CMP #### [facility] [address] [address] [address] Angela Aguero Glucose [Mass/Vol] 170 mg/dL Critically high 74-106 [facility] Comment on above: Performed By: #### L NGA SMITH, CMP #### [facility] [address] [place] [address] Dr. Angela Aguero Potassium [Moles/Vol] 3.5 mmol/L Normal 3.5-5.1 [facility] Comment on above: Performed By: #### L NGA SMITH, CMP #### [facility] [address] [place] [address] Dr. Angela Aguero Protein [Mass/Vol] 8.3 g/dL Critically high 6.4-8.2 [facility] Comment on above: Performed By: #### L NGA SMITH, CMP #### [facility] [address] [place] [address] Dr. Angela Aguero Sodium [Moles/Vol] 139 mmol/L Normal 136-145 [facility] Comment on above: Performed By: #### L NGA SMITH, CMP #### [facility] [address] [place] [address] Dr. Angela Aguero Urea nitrogen [Mass/Vol] 4.0 mg/dL Critically low 7.0-18.0 [facility] Comment on above: Performed By: #### L NGA SMITH, CMP #### [facility] [address] [address] [address] Angela Aguero Urea nitrogen/Creatinine [Mass ratio] 4.1 mg/mg Normal [facility] Comment on above: Performed By: #### L NGA SMITH, CMP #### [facility] [address] [address] [address] ABD/PELV W CONon 11-12-[address] ABD/PELV W CON Begin Addendum # [...] steatosis. 3. Small hiatal hernia. Normal [facility] ER URINE PROFILEon 2 Bilirubin Ql (U) Negative Normal NEGATIVE [facility] Comment on above: Performed By: #### L NGA SMITH, CMP #### [facility] [address] [address] [address] Angela Aguero Clarity (U) CLEAR Normal CLEAR [facility] Comment on above: Performed By: #### L NGA SMITH, CMP #### [facility] [address] [address] [address] Angela Aguero Color (U) LT. YELLOW Normal YELLOW [facility] Comment on above: Performed By: #### L IPA NGA, CMP #### [facility] [address] [address] [address] Angela CARRASCO A micrscopic examina tion will be performed if indicated. Normal [facility] Comment on above: Performed By: #### L IPA, NGA, CMP #### [facility] [address] [address] [address] Angela Aguero Glucose Ql (U) Negative Normal NEGATIVE [facility] Comment on above: Performed By: #### L IPA, NGA, CMP #### [facility] [address] [address] [address] Angela Aguero Hemoglobin Ql (U) Negative Normal NEGATIVE [facility] Comment on above: Performed By: #### L IPA NGA, CMP #### [facility] [address] [place] [address] Dr. Angela Aguero Ketones Ql (U) Negative Normal NEGATIVE [facility] Comment on above: Performed By: #### L IPA NGA, CMP #### [facility] [address] [place] [address] Dr. Angela Aguero LEUKOCYTES Negative Normal NEGATIVE [facility] Comment on above: Performed By: #### L IPA NGA, CMP #### [facility] [address] [place] [address] Dr. Angela Aguero Nitrite Ql (U) Negative Normal NEGATIVE [facility] Comment on above: Performed By: #### L IPA NGA, CMP #### [facility] [address] [address] [address] Angela Aguero pH (U) 6.0 [pH] Normal 5-9 [facility] Comment on above: Performed By: #### L IPA NGA, CMP #### [facility] [address] [place] [address] Dr. Angela Aguero SPEC GRAVITY <=1.005 Abnormal 1.005-<=1. 025 [facility] Comment on above: Performed By: #### L IPA NGA, CMP #### [facility] [address] [address] [address] Angela Aguero UA PROTEIN Negative Normal NEGATIVE/ TRACE [facility] Comment on above: Performed By: #### L NGA SMITH, CMP #### [facility] [address] [place] [address] Dr. Angela Aguero UR MICRO IND NOT INDICATED Normal [facility] Comment on above: Performed By: #### L NGA SMITH, CMP #### [facility] [address] [place] [address] Dr. Angela Aguero Urobilinogen Qn (U) 0.2 {Concetta'U}/dL Normal 0.2 - 1. 0 [facility] Comment on above: Performed By: #### L NGA SMITH, CMP #### [facility] [address] [place] [address] Dr. Angela Aguero LACTATE/LACTIC ACIDon 2021 Lactate [Moles/Vol] 1.1 mmol/L Normal 0.4-1.9 [facility] Comment on above: Performed By: #### L NGA SMITH, CMP #### [facility] [address] [place] [address] Dr. Angela Aguero CBC AUTO DIFFon 11-10-2021 BASO # 0.1 103/ul Normal 0.0-0.1 [facility] Comment on above: Performed By: #### L NGA SMITH, CMP #### [facility] [address] [place] [address] Dr. Angela Aguero Basophils/100 WBC (Bld) 1.7 % Normal 0.2-2.0 [facility] Comment on above: Performed By: #### L NGA SMITH, CMP #### [facility] [address] [place] [address] Dr. Angela Aguero EO # 0.1 103/ul Normal 0.0-0.7 [facility] Comment on above: Performed By: #### L LUIS NGA, CMP #### [facility] [address] [place] [address] Dr. Angela Aguero Eosinophils/100 WBC (Bld) 1.0 % Normal 0.9-7.0 [facility] Comment on above: Performed By: #### L NGA SMITH, CMP #### [facility] [address] [place] [address] Dr. Angela Aguero Erythrocyte distribution width (RBC) [Ratio] 13.1 % Normal 11.0-15.0 [facility] Comment on above: Performed By: #### L NGA SMITH, CMP #### [facility] [address] [place] [address] Dr. Angela Aguero Hematocrit (Bld) [Volume fraction] 46.8 % Normal 36.0-48.0 [facility] Comment on above: Performed By: #### L NGA SMITH, CMP #### [facility] [address] [place] [address] Dr. Angela Aguero Hemoglobin (Bld) [Mass/Vol] 16.3 g/dL Critically high 12.0-16.0 [facility] Comment on above: Performed By: #### L NGA SMITH, CMP #### [facility] [address] [place] [address] Dr. Angela Aguero IG # 0.02 10e3/ul Normal 0.00-0.03 [facility] Comment on above: Performed By: #### L NGA SMITH, CMP #### [facility] [address] [place] [address] Dr. Angela Aguero IG % 0.3 % Normal 0.0-0.5 [facility] Comment on above: Performed By: #### L NGA SMITH, CMP #### [facility] [address] [place] [address] Dr. Angela Aguero LYMPH # 1.3 103/ul Normal 1.2-3.8 [facility] Comment on above: Performed By: #### L NGA SMITH, CMP #### [facility] [address] [place] [address] Dr. Angela Aguero Lymphocytes/100 WBC (Bld) 20.9 % Normal 20.5-60.0 [facility] Comment on above: Performed By: #### L NGA SMITH, CMP #### [facility] [address] [place] [address] Dr. Angela Aguero MANUAL DIFF REQ NO Normal The [facility] Comment on above: Performed By: #### L NGA SMITH, CMP #### [facility] [address] [place] [address] Dr. Angela Aguero MCH (RBC) [Entitic mass] 32.2 pg Normal 26.7-34.0 [facility] Comment on above: Performed By: #### L NGA SMITH, CMP #### [facility] [address] [place] [address] Dr. Angela Aguero MCHC (RBC) [Mass/Vol] 34.8 g/dL Normal 29.9-35.2 [facility] Comment on above: Performed By: #### L NGA SMITH, CMP #### [facility] [address] [place] [address] Dr. Angela Aguero MCV (RBC) [Entitic vol] 92.5 fL Normal 81.0-99.0 [facility] Comment on above: Performed By: #### L NGA SMITH, CMP #### [facility] [address] [place] [address] Dr. Angela Aguero MONO # 0.6 103/ul Normal 0.3-0.8 [facility] Comment on above: Performed By: #### L NGA SMITH, CMP #### [facility] [address] [place] [address] Dr. Angela Aguero Monocytes/100 WBC (Bld) 10.7 % Normal 1.7-12.0 [facility] Comment on above: Performed By: #### L NGA SMITH, CMP #### [facility] [address] [place] [address] Dr. Angela Aguero NEUT # 3.9 103/ul Normal 1.4-6.5 [facility] Comment on above: Performed By: #### L NGA SMITH, CMP #### [facility] [address] [place] [address] Dr. Angela Aguero Neutrophils/100 WBC (Bld) 65.4 % Normal 43.0-75.0 [facility] Comment on above: Performed By: #### L NGA SMITH, CMP #### [facility] [address] [address] [address] Angela Aguero Platelet mean volume (Bld) [Entitic vol] 9.6 fL Normal 9.5-13.5 [facility] Comment on above: Performed By: #### L NGA SMITH, CMP #### [facility] [address] [address] [address] Angela Aguero PLT 224 103/ul Normal 150-450 [facility] Comment on above: Performed By: #### L NGA SMITH, CMP #### [facility] [address] [address] [address] Angela Aguero RBC 5.06 106/ul Normal 4.20-5.40 [facility] Comment on above: Performed By: #### L NGA SMITH, CMP #### [facility] [address] [place] [address] Dr. Angela Aguero WBC 6.0 103/ul Normal 4.0-11.0 [facility] Comment on above: Performed By: #### L NGA SMITH, CMP #### [facility] [address] [place] [address] Dr. Angela Aguero LACTATE/LACTIC ACIDon 2021 Lactate [Moles/Vol] 3.7 mmol/L Critically high 0.4-1.9 [facility] Comment on above: Performed By: #### L NGA SMITH, CMP #### [facility] [address] [place] [address] Dr. Angela Agureo LIPASEon 11-10-2021 Lipase [Catalytic activity/Vol] 33.0 U/L Critically low 73.0-393.0 [facility] Comment on above: Performed By: #### L NGA SMITH, CMP #### [facility] [address] [place] [address] Dr. Angela Aguero PREG HCG QUALon 11-10-2021 , QUAL Negative Normal NEGATIVE [facility] Comment on above: Performed By: #### P REG #### [facility] [address] [place] [address] Dr. Angela Aguero PROF 14(COMP METB)on 022 Albumin [Mass/Vol] 4.5 g/dL Normal 3.4-5.0 [facility] Comment on above: Performed By: #### L NGA SMITH, CMP #### [facility] [address] [address] [address] Angela Aguero Albumin/Globulin [Mass ratio] 1.1 {ratio} Normal [facility] Comment on above: Performed By: #### L NGA SMITH, CMP #### [facility] [address] [address] [address] Angela Aguero ALP [Catalytic activity/Vol] 112 U/L Normal 46-116 [facility] Comment on above: Performed By: #### L NGA SMITH, CMP #### [facility] [address] [address] [address] Angela Aguero ALT [Catalytic activity/Vol] 154 U/L Critically high 14-59 [facility] Comment on above: Performed By: #### L NGA SMITH, CMP #### [facility] [address] [address] [address] Angela Aguero Anion gap [Moles/Vol] 17.8 mmol/L Normal [facility] Comment on above: Performed By: #### L NGA SMITH, CMP #### [facility] [address] [place] [address] Dr. Angela Aguero AST [Catalytic activity/Vol] 112 U/L Critically high 15-37 [facility] Comment on above: Performed By: #### L NGA SMITH, CMP #### [facility] [address] [address] [address] Angela Aguero Bilirubin [Mass/Vol] 0.7 mg/dL Normal 0.2-1.0 [facility] Comment on above: Performed By: #### L NGA SMITH, CMP #### [facility] [address] [address] [address] Angela Aguero Calcium [Mass/Vol] 9.7 mg/dL Normal 8.5-10.1 [facility] Comment on above: Performed By: #### L NGA SMITH, CMP #### [facility] [address] [address] [address] Angela Aguero Chloride [Moles/Vol] 102 mmol/L Normal 98-107 [facility] Comment on above: Performed By: #### L NGA SMITH, CMP #### [facility] [address] [address] [address] Angela Aguero CO2 [Moles/Vol] 26.6 mmol/L Normal 21.0-32.0 [facility] Comment on above: Performed By: #### L NGA SMITH, CMP #### [facility] [address] [address] [address] Angela Aguero Creatinine [Mass/Vol] 1.00 mg/dL Normal 0.55-1.02 [facility] Comment on above: Performed By: #### L NGA SMITH, CMP #### [facility] [address] [place] [address] Dr. Angela Aguero EGFR-AF MOLDOVAN >60 Normal >=60 [facility] Comment on above: Performed By: #### L NGA SMITH, CMP #### [facility] [address] [place] [address] Dr. Angela Aguero EGFR-NON AF MOLDOVAN >60 Normal >=60 [facility] Comment on above: Performed By: #### L NGA SMITH, CMP #### [facility] [address] [place] [address] Dr. Angela Aguero Globulin (S) [Mass/Vol] 4.1 g/dL Normal [facility] Comment on above: Performed By: #### L NGA SMITH, CMP #### [facility] [address] [place] [address] Dr. Angela Aguero Glucose [Mass/Vol] 170 mg/dL Critically high 74-106 T [facility] Comment on above: Performed By: #### L NGA SMITH, CMP #### [facility] [address] [place] [address] Dr. Angela Aguero Potassium [Moles/Vol] 3.4 mmol/L Critically low 3.5-5.1 [facility] Comment on above: Performed By: #### L NGA SMITH, CMP #### [facility] [address] [place] [address] Dr. Angela Aguero Protein [Mass/Vol] 8.6 g/dL Critically high 6.4-8.2 T [facility] Comment on above: Performed By: #### L NGA SMITH, CMP #### [facility] [address] [place] [address] Dr. Angela Aguero Sodium [Moles/Vol] 143 mmol/L Normal 136-145 [facility] Comment on above: Performed By: #### L NGA SMITH, CMP #### [facility] [address] [place] [address] Dr. Angela Aguero Urea nitrogen [Mass/Vol] 4.0 mg/dL Critically low 7.0-18.0 [facility] Comment on above: Performed By: #### L NGA SMITH, CMP #### [facility] [address] [place] [address] Dr. Angela Aguero Urea nitrogen/Creatinine [Mass ratio] 4.0 mg/mg Normal [facility] Comment on above: Performed By: #### L NGA SMITH, CMP #### [facility] [address] [place] [address] Dr. Angela Aguero PROTIMEon 11-10-2021 INR Coag (PPP) [Relative time] 1.13 {INR} Normal [facility] Comment on above: Performed By: #### L NGA SMITH, CMP #### [facility] [address] [place] [address] Dr. Angela Aguero INR GUIDELINES SEE BELOW Normal [facility] Comment on above: Result Comment: VARSHA RED INR: 2.0 - 3.0 CONDITIONS NOT LISTED BELOW 2.5 - 3.5 FOR PROSTHETIC HEART VALVE REPLACEMENT 2.5 - 3.5 RECURRENT THROMBOSIS Performed By: #### L NGA SMITH, CMP #### [facility] [address] [place] [address] Dr. Angela Aguero PT Coag (PPP) [Time] 12.1 s Critically high 9.0-11.6 [facility] Comment on above: Performed By: #### L NGA SMITH, CMP #### [facility] [address] [place], [place] [address] Dr. Angela Aguero PTTon 11-10-2021 aPTT Coag (Bld) [Time] 30.2 s Normal 22.3-36.2 [facility] Comment on above: Performed By: #### L NGA SMITH, CMP #### [facility] [address] [place], [place] [address] Dr. Angela Aguero Automated epithelial cells c ount in urine sediment (number/area)Ordered By: Hal Orozco on 11-06-2021 Epithelial cells Auto (Urine sed) [#/Area] 10-19 [HPF] 0-2 [facility] Automated erythrocytes count in urine sediment (number/area)Ordered By: Hal Orozco on 11-06-2021 RBC Auto (Urine sed) [#/Area] 0-1 [HPF] 0-4 [facility] Automated leukocytes count i n urine sediment (number/area)Ordered By: Hal Orozco on 11-06-2021 WBC Auto (Urine sed) [#/Area] 1-2 [HPF] 0-4 [facility] Basophils Auto (Bld) [#/Vol] Ordered By: Hal Orozco on 11-06-2021 Basophils (Bld) [#/Vol] 0.0 10*3/uL 0.0-0.2 [facility] Basophils/100 WBC Auto (Bld) Ordered By: Hal Orozco on 11-06-2021 Basophils/100 WBC (Bld) 0.3 % . [facility] Bilirubin Auto test strip Ql (U)Ordered By: Hal Orozco on 11-06-2021 Bilirubin Ql (U) 1+ Negative [facility] Blood hemoglobin measurement (mass/volume)Ordered By: Hal Orozco on 11-06-2021 Hemoglobin (Bld) [Mass/Vol] 15.7 g/dL 11.8-15.4 [facility] Blood leukocytes automated c ount (number/volume)Ordered By: Hal Orozco on 11-06-2021 WBC (Bld) [#/Vol] 9.8 10*3/uL 4.5-11.0 [facility] Body fluid albumin measureme nt (mass/volume)Ordered By: Hal Orozco on 11-06-2021 Albumin (Body fld) [Mass/Vol] 4.7 g/dL 3.2-5.5 [facility] Creatinine and Glomerular fi ltration rate.predicted panel (S/P/Bld)Ordered By: Hal Orozco on 11-06-2021 Creatinine [Mass/Vol] 0.99 mg/dL 0.44-1.03 [facility] Direct bilirubin measurement Ordered By: Hal Orozco on 11-06-2021 Bilirubin.direct [Mass/Vol] 0.3 mg/dL 0.0-0.4 [facility] Eosinophils Auto (Bld) [#/Vo l]Ordered By: Hal Orozco on 11-06-2021 Eosinophils (Bld) [#/Vol] 0.0 10*3/uL 0.0-0.45 [facility] Eosinophils/100 WBC Auto (Bl d)Ordered By: Hal Orozco on 11-06-2021 Eosinophils/100 WBC (Bld) 0.0 % . [facility] Erythrocyte distribution wid th Auto (RBC) [Ratio]Ordered By: Hal Orozco on 11-06-2021 Erythrocyte distribution width (RBC) [Ratio] 14.3 % 11.9-15.3 [facility] Estimated glomerular filtrat ion rate (GFR) non- AmericanOrdered By: Hal Orozco on 11-06-2021 GFR/1.73 sq M.predicted among non-blacks MDRD (S/P/Bld) [Vol rate/Area] > 60 mL/Min [facility] Globulin Calc (S) [Mass/Vol] Ordered By: Hal Orozco on 11-06-2021 Globulin (S) [Mass/Vol] 3.4 g/dL [facility] HCG ( test) IA.rapi d Ql (U)Ordered By: Hal Orozco on 11-06-2021 HCG ( test) Ql (U) Negative [facility] Hematocrit Auto (Bld) [Volum e fraction]Ordered By: Hal Orozco on 11-06-2021 Hematocrit (Bld) [Volume fraction] 45.7 % 34.0-46.4 [facility] Ketones Auto test strip (U) [Mass/Vol]Ordered By: Hal Orozco on 11-06-2021 Ketones (U) [Mass/Vol] 1+ Negative [facility] - Chemistry and C hemistry - challengeOrdered By: Hal Orozco on 11-06-2021 Lipase [Catalytic activity/Vol] 18.0 U/L 22-51 [facility] - Hematology and Cell countsOrdered By: Hal Orozco on 11-06-2021 Nucleated RBC/100 WBC (Bld) [Ratio] 0.1 % 0-0.5 [facility] Lymphocytes Auto (Bld) [#/Vo l]Ordered By: Hal Orozco on 11-06-2021 Lymphocytes (Bld) [#/Vol] 0.4 10*3/uL 1.00-4.8 [facility] Lymphocytes/100 WBC Auto (Bl d)Ordered By: Hal Orozco on 11-06-2021 Lymphocytes/100 WBC (Bld) 3.8 % . [facility] MCH Auto (RBC) [Entitic mass ]Ordered By: Hal Orozco on 11-06-2021 MCH (RBC) [Entitic mass] 32.4 pg 24.7-34.3 [facility] MCHC Auto (RBC) [Mass/Vol]Or dered By: Hal Orozco on 11-06-2021 MCHC (RBC) [Mass/Vol] 34.4 g/dL 32.0-35.0 [facility] MCV Auto (RBC) [Entitic vol] Ordered By: Hal Orozco on 11-06-2021 MCV (RBC) [Entitic vol] 94.2 fL 80-100 [facility] Monocytes Auto (Bld) [#/Vol] Ordered By: Hal Orozco on 11-06-2021 Monocytes (Bld) [#/Vol] 0.3 10*3/uL 0.0-0.8 [facility] Monocytes/100 WBC Auto (Bld) Ordered By: Hal Orozco on 11-06-2021 Monocytes/100 WBC (Bld) 2.9 % . [facility] Mucus LM Ql (Urine sed)Order ed By: Hal Orozco on 11-06-2021 Mucus Ql (Urine sed) 2+ [LPF] [facility] Neutrophils Auto (Bld) [#/Vo l]Ordered By: Hal Orozco on 11-06-2021 Neutrophils (Bld) [#/Vol] 9.1 10*3/uL 1.8-7.7 [facility] Neutrophils/100 WBC Auto (Bl d)Ordered By: Hal Orozco on 11-06-2021 Neutrophils/100 WBC (Bld) 93.0 % . [facility] No Panel InformationOrdered By: Hal Orozco on 11-06-2021 Estimated GFR () > 60 mL/Min [facility] Comment on above: GFR estimated refere nce range: According to KDOQI guidelines, <60 ml/min/1.73m2 is sufficient to diagnose a patient with chronic kidney disease. Pharmacy Creatinine Clearance (Chem 72.84 [facility] Platelet mean volume Auto (B ld) [Entitic vol]Ordered By: Hal Orozco on 11-06-2021 Platelet mean volume (Bld) [Entitic vol] 7.5 fL 6.3-10.7 [facility] Platelets Auto (Bld) [#/Vol] Ordered By: Hal Orozco on 11-06-2021 Platelets (Bld) [#/Vol] 270 10*3/uL 150-450 [facility] Protein Auto test strip (U) [Mass/Vol]Ordered By: Hal Orozco on 11-06-2021 Protein (U) [Mass/Vol] 30 mg/dL Negative [facility] Protein [Mass/volume] in Ser um or PlasmaOrdered By: Hal Orozco on 11-06-2021 Protein [Mass/Vol] 8.1 g/dL 6.1-7.9 [facility] RBC Auto (Bld) [#/Vol]Ordere d By: Hal Orozco on 11-06-2021 RBC (Bld) [#/Vol] 4.85 10*6/uL 3.60-5.00 [facility] Serum or plasma alanine montes otransferase measurement without P-5'-P (enzymatic activiOrdered By: Hal Orozco on 11-06-2021 ALT No additional P-5'-P [Catalytic activity/Vol] 64 U/L 10-60 [facility] Serum or plasma albumin/glob ulin mass ratioOrdered By: Hal Orozco on 11-06-2021 Albumin/Globulin [Mass ratio] 1.4 {ratio} [facility] Serum or plasma alkaline florencio sphatase measurement (enzymatic activity/volume)Ordered By: Hal Orozco on 11-06-2021 ALP [Catalytic activity/Vol] 75 U/L 32-92 [facility] Serum or plasma aspartate am inotransferase measurement (enzymatic activity/volume)Ordered By: Hal Orozco on 11-06-2021 AST [Catalytic activity/Vol] 101 U/L 10-42 [facility] Serum or plasma calcium archie urement (mass/volume)Ordered By: Hal Orozco on 11-06-2021 Calcium [Mass/Vol] 9.3 mg/dL 8.2-10.2 [facility] Serum or plasma chloride luz surement (moles/volume)Ordered By: Hal Orozco on 11-06-2021 Chloride [Moles/Vol] 101 mmol/L 95-114 [facility] Serum or plasma glucose archie urement (mass/volume)Ordered By: Hal Orozco on 11-06-2021 Glucose [Mass/Vol] 205 mg/dL 70-100 [facility] Comment on above: ADA recommended refe [...] Orozco on 11-06-2021 Bilirubin.indirect [Mass/Vol] 1.0 mg/dL [facility] Serum or plasma potassium me asurement (moles/volume)Ordered By: Hal Orozco on 11-06-2021 Potassium [Moles/Vol] 3.8 mmol/L 3.5-5.1 [facility] Serum or plasma sodium measu rement (moles/volume)Ordered By: Hal Orozco on 11-06-2021 Sodium [Moles/Vol] 142 mmol/L 136-146 [facility] Serum or plasma total biliru bin measurement (mass/volume)Ordered By: Hal Orozco on 11-06-2021 Bilirubin [Mass/Vol] 1.3 mg/dL 0.3-1.2 [facility] Comment on above: Samples from patient s who have taken Naproxen have shown spurious elevation in Total Bilirubin levels. A metabolite of Naproxen, O-desmethylnaproxen, has been shown to interfere with the Renetta method for measuring Total Bilirubin. Serum or plasma total carbon dioxide measurement (moles/volume)Ordered By: Hal Orozco on 11-06-2021 CO2 [Moles/Vol] 21.6 mmol/L 22.0-30.0 [facility] Serum or plasma urea nitroge n measurement (mass/volume)Ordered By: Hal Orozco on 11-06-2021 Urea nitrogen [Mass/Vol] 4 mg/dL 9-23 [facility] Urine appearanceOrdered By: Hal Orozco on 11-06-2021 Appearance (U) Clear Clear [facility] Urine bacteria detection by automated methodOrdered By: Hal Orozco on 11-06-2021 Bacteria Auto Ql (U) 1+ None Seen [facility] Urine colorOrdered By: Jimbo Orozco on 11-06-2021 Color (U) Yellow Yellow [facility] Urine glucose measurement by automated test strip (mass/volume)Ordered By: Hal Orozco on 11-06-2021 Glucose Auto test strip (U) [Mass/Vol] Normal mg/dL Normal [facility] Urine hemoglobin detection b y automated test stripOrdered By: Hal Orozco on 11-06-2021 Hemoglobin Auto test strip Ql (U) Negative Negative [facility] Urine leukocyte esterase det ection by automated test stripOrdered By: Hal Orozco on 11-06-2021 Leukocyte esterase Auto test strip Ql (U) Negative Negative [facility] Urine nitrite detection by a utomated test stripOrdered By: Hal Orozco on 11-06-2021 Nitrite Auto test strip Ql (U) Negative Negative [facility] Urobilinogen Auto test strip (U) [Mass/Vol]Ordered By: Hal Orozco on 11-06-2021 Urobilinogen (U) [Mass/Vol] mg/dL Normal [facility] pH Auto test strip (U)Ordere d By: Hal Orozco on 11-06-2021 pH (U) 1.025 [pH] 1.001-1.03 0 [facility] pH (U) 6.5 [pH] 5.0-9.0 [facility] Vital Signs Date Time Vital Sign Value Performing Clinician Facility 01-22-2024 08:00-0400 Body temperature 98.1 [degF] CATIA Blanca Work Phone: [facility] 01-22-2024 08:00-0400 Diastolic blood pressure 78 mm[Hg] CATIA Blanca Work Phone: [facility] 01-22-2024 08:00-0400 Heart rate 116 /min CATIA Blanca Work Phone: [facility] 01-22-2024 08:00-0400 Respiratory rate 18 /min CATIA Blanca Work Phone: [facility] 01-22-2024 08:00-0400 SaO2% (BldA) [Mass fraction] 99 % CATIA Blanca Work Phone: [facility] 01-22-2024 08:00-0400 Systolic blood pressure 109 mm[Hg] CATIA Blanca Work Phone: [facility] 01-21-2024 10:58-0400 Body weight 62.09 kg CATIA Blanca Work Phone: [facility] 01-18-2024 15:54-0400 Body height 170.18 cm CATIA Blanca Work Phone: [facility] 01-15-2024 10:17-0400 Diastolic blood pressure 108 mm[Hg] CATIA Blanca Work Phone: [facility] 01-15-2024 10:17-0400 Heart rate 73 /min MANAGER [employer]odd Blanca Work Phone: [facility] 01-15-2024 10:17-0400 Respiratory rate 18 /min MANAGER FAST FOODTodd Blanca Work Phone: [facility] 01-15-2024 10:17-0400 SaO2% (BldA) [Mass fraction] 95 % MANAGER [employer]odd Blanca Work Phone: [facility] 01-15-2024 10:17-0400 Systolic blood pressure 148 mm[Hg] CATIA Blanca Work Phone: [facility] 01-15-2024 08:59-0400 Body temperature 98.6 [degF] CATIA Blanca Work Phone: [facility] 06-14-2023 14:27-0500 Body height 167.64 cm CATIA Blanca Work Phone: [facility] 06-14-2023 14:27-0500 Body mass index (BMI) [Ratio] 22 kg/m2 MANAGER [employer]Todd Blanca Work Phone: [facility] 06-14-2023 14:27-0500 Body weight 61.91 kg CATIA Blanca Work Phone: [facility] 06-14-2023 14:27-0500 Diastolic blood pressure 85 mm[Hg] CATIA Blanca Work Phone: [facility] 06-14-2023 14:27-0500 Heart rate 94 /min CATIA Blanca Work Phone: [facility] 06-14-2023 14:27-0500 Respiratory rate 18 /min CATIA Blanca Work Phone: [facility] 06-14-2023 14:27-0500 SaO2% (BldA) [Mass fraction] 100 % MANAGER [employer] FO[employer]Todd Blanca Work Phone: [facility] 06-14-2023 14:27-0500 Systolic blood pressure 132 mm[Hg] [employer] Avery Blanca Work Phone: [facility] 03-27-2023 10:45-0500 Body height 167.64 cm Becky Scally Other [facility] 03-27-2023 10:45-0500 Body mass index (BMI) [Ratio] 21.93 kg/m2 Becky Scally Other [employer] Other 03-27-2023 10:45-0500 Body weight 61.64 kg Becky Scally Other [facility] 03-27-2023 10:45-0500 Diastolic blood pressure 80 mm[Hg] Becky Scally Other [facility] 03-27-2023 10:45-0500 Respiratory rate 16 /min Becky Scally Other [employer] Other 03-27-2023 10:45-0500 SaO2% (BldA) [Mass fraction] 100 % Becky Scally Other [employer] Other 03-27-2023 10:45-0500 Systolic blood pressure 125 mm[Hg] Becky Scally Other [facility] 02-01-2022 23:07-0400 Diastolic blood pressure 103 mm[Hg] Kaylinn Dokken [facility] 02-01-2022 23:07-0400 Heart rate 67 /min Kaylinn Dokken [facility] 02-01-2022 23:07-0400 Respiratory rate 15 /min Kaylinn Dokken [facility] 02-01-2022 23:07-0400 SaO2% (BldA) [Mass fraction] 97 % Zaireylinn Dokken [facility] 02-01-2022 23:07-0400 Systolic blood pressure 164 mm[Hg] Kaylinn Dokken [facility] 02-01-2022 21:27-0400 Body temperature 98.24 [degF] Zaireylinn Dokken [facility] 02-01-2022 21:27-0400 Diastolic blood pressure 120 mm[Hg] Zaireylinn Dokken [facility] 02-01-2022 21:27-0400 Heart rate 111 /min Zaireylinn Dokken [facility] 02-01-2022 21:27-0400 Respiratory rate 20 /min Zaireylinn Dokken [facility] 02-01-2022 21:27-0400 SaO2% (BldA) [Mass fraction] 98 % Charaninn Dokken [facility] 02-01-2022 21:27-0400 Systolic blood pressure 196 mm[Hg] Charaninn Dokken [facility] 12-28-2021 08:56-0400 Body height 167.64 cm Services [employer] Work Phone: [facility] 12-28-2021 08:56-0400 Body weight 71.66 kg Services [employer] Work Phone: [facility] 12-23-2021 09:40-0400 Diastolic blood pressure 87 mm[Hg] Services [employer] Work Phone: [facility] 12-23-2021 09:40-0400 Heart rate 88 /min Services [facility] [employer] Work Phone: [facility] 12-23-2021 09:40-0400 Respiratory rate 18 /min [facility] Work Phone: [facility] 12-23-2021 09:40-0400 SaO2% (BldA) [Mass fraction] 100 % [facility] Work Phone: [facility] 12-23-2021 09:40-0400 Systolic blood pressure 140 mm[Hg] [facility] Work Phone: [facility] 12-23-2021 07:44-0400 Body height 167.64 cm [facility] Work Phone: [facility] 12-23-2021 07:44-0400 Body weight 68.03 kg [facility] Work Phone: [facility] 11-06-2021 14:00-0400 Diastolic blood pressure 82 mm[Hg] [facility] Work Phone: [facility] 11-06-2021 14:00-0400 Heart rate 102 /min [facility] Work Phone: [facility] 11-06-2021 14:00-0400 Respiratory rate 20 /min [facility] Work Phone: [facility] 11-06-2021 14:00-0400 SaO2% (BldA) [Mass fraction] 97 % [facility] Work Phone[facility] [facility] 11-06-2021 14:00-0400 Systolic blood pressure 123 mm[Hg] [facility] Work Phone: [facility] 11-06-2021 00:00-0400 Body height 167.64 cm [facility] Work Phone: [facility] 11-06-2021 00:00-0400 Body weight 70.3 kg [facility] Work Phone: [facility] 11-05-2021 23:51-0400 Body temperature 98 [degF] [facility] Work Phone: [facility] Encounters Encounter Date Encounter Type Care Provider Facility Start: 01-16-2024 Non-patient / Non-visit MANAGER FAST FOOD Reji jimenez Evangelist Work Phone: [facility] Work Phone: Start: 01-15-2024 End: 01-22-2024 Evaluation and management of inpatient MANAGER FAST FOODTodd Baldwin Evangelist Work Phone: [facility] [place] [address] Work Phone: Start: 11-27-2023 End: 11-30-2023 Clinisync Result Encounter Shaikh Jonatan OROURKE Work Phone: [facility] Unsolicited Start: 11-27-2023 End: 11-30-2023 Clinisync Result Encounter Shaikh Jonatan OROURKE Work Phone: [facility] Unsolicited Start: 11-26-2023 End: 12-01-2023 Non-patient / Non-visit MANAGER FAST FOODTodd Blanca Work Phone: [facility] Work Phone: Start: 11-22-2023 Non-patient / Non-visit MANAGER FAST FOOD Reji jimenez Evangelist Work Phone: [facility] ER Work Phone: Start: 11-22-2023 ambulatory Avery Blanca Facili ty:[facility] Start: 11-22-2023 Registered Recurring MANAGER FAST FOOD Ez reji Evangelist Work Phone: [facility] Start: 08-14-2023 End: 08-14-2023 ambulatory Avery Babb Blanca [facility] Work Phone: Start: 08-14-2023 End: 08-14-2023 Departed Referred CATIA Blanca Work Phone: [facility] Start: 06-14-2023 End: 06-14-2023 Patient encounter procedure MANAGER FAST FOODTodd Blanca Work Phone: [facility] Work Phone: Start: 03-27-2023 FQHC visit new patient Becky beck [facility] Start: 03-27-2023 End: 03-27-2023 Discharged Recurring CATIA Blanca Work Phone: [facility] Work Phone: Start: 03-27-2023 End: 03-27-2023 ambulatory CATIA Blanca Work Phone: [facility] [employer] Other Start: 03-27-2023 End: 03-27-2023 Patient encounter procedure CATIA Blanca Work Phone: [facility] Work Phone: Start: 01-19-2023 ambulatory Aung Saldaña [facility] [place] Start: 10-21-2022 End: 10-21-2022 Emergency department patient visit Thanh Bal [facility] Start: 03-26-2022 End: 03-26-[address] DEON MCGUIRE Facility: Start: 02-01-2022 End: 02-02-2022 Emergency department patient visit DO Judith Mock [facility] Start: 02-01-2022 End: 02-02-2022 Emergency department patient visit Judith Mock [facility] Start: 01-31-2022 End: 05-02-2022 ambulatory Varinder Ang Facility:[facility] Start: 01-18-2022 End: 01-18-2022 ambulatory Services [facility] Work Phone: [facility] Work Phone: Start: 01-18-2022 End: 01-18-2022 Patient encounter procedure Services [facility] Work Phone: [facility] [place] Start: 12-28-2021 End: 12-28-[address] [facility] Work Phone: [facility] [place] Start: 12-23-2021 End: 12-23-2021 Patient encounter procedure Services [employer] Phone: [facility] [place] Start: 11-25-2021 End: 11-25-2021 Departed Referred Services [employer] Phone: [facility] Start: 11-18-2021 End: 11-20-[address] DOCTOR SALGADO Facility:[facility] Start: 11-10-2021 End: 11-11-2021 ambulatory MAGGY WORLEY Facility:[facility] Start: 11-05-2021 End: 11-06-2021 Emergency department patient visit [facility] [employer] Phone: [facility]-Emergency Room Procedures Date Procedure Procedure Detail Performing Clinician Start: 11-27-2023 Bacteria identified in Urine by Culture Shaikh Jonatan OROURKE Work Phone: Start: 12-28-2021 MRI of thoracic spin e with contrast [facility] [employer] Phone: Start: 12-28-2021 XR pre/post mri xray [employer] Phone: Start: 12-28-2021 MRI of lumbar spine with contrast [facility] [employer] Phone: Start: 12-23-2021 MRI of head Services [facility] [employer] Work Phone: Aerobic microbial culture [facility] [employer] Phone: Anaerobic microbial culture [facility] [employer] Phone: Investigation of transfusion reaction [facility] [employer] Phone: Plan of Treatment Date Care Activity Detail Author Start: 01-22-2024 [facility] Start: 01-18-2024 Referral to clinical hub cutter [facility] Start: 01-15-2024 Referral to Woodworking Machine Offbearer [facility] Start: 01-15-2024 Hospital admission [facility] Start: 01-18-2022 BOWL ATTENDANT antibody measurement [facility] Start: 01-18-2022 [facility] Start: 12-23-2021 [facility] Start: 12-23-2021 Cerebrospinal fluid culture [facility] Work Phone: Start: 12-23-2021 [facility] Start: 12-23-2021 Lumbar puncture usin g fluoroscopic guidance [facility] Work Phone: Start: 11-25-2021 End: 11-25-2021 Departed Referred Departed Referred [facility] Albumin [Mass/volume ] in Cerebral spinal fluid [facility] Work Phone: Albumin [Mass/volume ] in Serum or Plasma [facility] Work Phone: Albumin/Globulin ratio [facility] Work Phone: Bacteria identified in Unspecified specimen by Aerobe culture [facility] Work Phone: Bacteria identified in Unspecified specimen by Anaerobe culture [facility] Work Phone: Cell count, cerebros alexus fluid [facility] Work Phone: Centromere protein B Ab [Units/volume] in Serum [facility] Work Phone: Cerebrospinal fluid examination [facility] Work Phone: Cerebrospinal fluid IgG ratio and IgG index [facility] Work Phone: Chromatin Ab [Units/ volume] in Serum or Plasma [facility] Work Phone: Comprehensive metabo lic 2000 panel - Serum or Plasma [facility] DNA double strand Ab [Units/volume] in Serum [facility] Work Phone: Electrophoresis: [id number] [facility] Work Phone: Electrophoresis: [id number] [facility] Work Phone: Electrophoresis: beta-globulin [facility] Work Phone: Electrophoresis: toby ma globulin [facility] Work Phone: Evaluation of cerebr ospinal fluid [facility] Work Phone: Fluid sample volume measurement [facility] Work Phone: Globulin [Mass/volum e] in Serum [facility] Work Phone: Glucose [Mass/volume ] in Cerebral spinal fluid [facility] Work Phone: Glutamate decarboxyl ase 65 Ab [Units/volume] in Serum [facility] IgG [Mass/volume] in Cerebral spinal fluid [facility] Work Phone: IgG [Mass/volume] in Serum or Plasma [facility] Work Phone: IgG clearance/Albumi n clearance [Ratio] in Serum and CSF [facility] Work Phone: IgG synthesis rate [Mass/time] in Serum and CSF by calculation [facility] Work Phone: Insulin Ab [Units/vo lume] in Serum [facility] Insulin C-peptide measurement [facility] Rika-1 extractable nuc lear Ab [Units/volume] in Serum [facility] Work Phone: Meningitis+Encephali tis pathogens DNA and RNA panel - Cerebral spinal fluid by GOPAL with non-probe detection [facility] Work Phone: Methylmalonate [Moles/volume] in Serum or Plasma [facility] Work Phone: Microscopic observat ion [Identifier] in Unspecified specimen by Gram stain [facility] Nucleated cells [#/v olume] in Cerebral spinal fluid by Manual count [facility] Work Phone: Patient Education [facility] Work Phone: Patient referral [facility] Work Phone: Protein [Mass/volume ] in Cerebral spinal fluid [facility] Work Phone: Protein [Mass/volume ] in Serum or Plasma [facility] Work Phone: Protein fractions.oligoclonal bands.intrathecal [Presence] in Serum and CSF [facility] Work Phone: Red blood cell count [facility] Work Phone: BOWL ATTENDANT antibody measurement [facility] Work Phone: SCL-70 extractable n uclear Ab [Units/volume] in Serum by Immunoassay [facility] Work Phone: Sjogrens syndrome-A extractable nuclear Ab [Units/volume] in Serum [facility] Work Phone: Sjogrens syndrome-B extractable nuclear Ab [Units/volume] in Serum [facility] Work Phone: Mcguire extractable nu clear Ab [Units/volume] in Serum [facility] Work Phone: Thiamine [Moles/volu me] in Blood [facility] Immunizations Immunization Date Immunization Notes Care Provider Fa [facility] 01-31-2022 influenza virus vaccine, unspecified formulation Judith Piersonmandeepedwige [facility] Comment on above: Reason for Medicatio n: Prophylaxis Payers Date Payer Category Payer Self-pay [id number] 2021 Unknown 1984 Unknown [id number] 2.16.84 [id number] 1984 Unknown [id number] 2.16.84 [id number] 1984 Unknown [id number] 2.16.84 [id number] 1984 Unknown [id number] 2.16.8 [id number] 1984 Unknown [id number] 2.16.8 [id number] 1984 Unknown [id number] 2.16.8 [id number] 1984 Unknown [id number] 2.16.8 [id number] 1959 Unknown [id number] Medicaid [id number] Unknown [id number] 2.16.8 [id number] Unknown [id number] 2.16.8 [id number] Unknown [id number] 2.16.8 [id number] Unknown [id number] 2.16.8 [id number] Social History Date Type Detail Facility Start: 11-06-2021 End: 03-27-2023 Tobacco smoking status COIS Ex-smoker (finding) [facility] Start: 1985 Sex Assigned At Female F [facility] Tobacco smoking status No Smoking Status Entered [facility] Sex Assigned At Female [facility] Start: 06-14-2023 End: 01-18-2024 Tobacco smoking status COIS Smoker (finding) [facility] Tobacco smoking status [facility] Tobacco smoking consumption unknown [facility] Start: 1985 Sex assigned at Not on file [facility] Healthcare Goals Date Patient Goal Desired Activity /State Functional Status Date Assessment Result Facility 01-22-2024 Functional status Patient at Baseline [facility] Work Phone: 02-01-2022 Functional Status N/A [facility] Mental Status Date Assessment Result Facility 01-22-2024 Cognitive function Cognitive Sta tus Patient at Baseline [facility] Work Phone: Clinical Notes 02-01-2022 to 01-22-2024 Note Date & Type Note Facility 01-22-2024 Discharge summary Note Date/Time January 22, 2024 11:00am [facility] [address] [place] [address] Discharge Summary Signed Patient: Shikha Loera MR#: [id number] : 1985 Acct:[id number] Age/Sex: 38 / F Adm Date: 4 Loc: Room: [address] [place] [address]: Jack Kwon MD Copies to: MD Devonte Wu MD [facility]~ Providers Date of Discharge: 01/22/24 Discharging Provider: Devonte Valdovinos Primary Care Provider: [facility] Consults: 01/15/24 11:22 Consult to Case Management Routine Comment: CM Reason for Consult: Wood[employer] Offbearer-General 01/18/24 04:46 Consult to Adult Hospitalist Routine Comment: Consulting Provider: Community Hospitalist (Adult) Reason For Exam: elevated b/p, DT's Has Provider Been Notified: Yes Date of Notification: 01/18/24 Time of Notification: 08:21 Discharge Diagnosis (1) Bipolar depression: (2) Alcohol intoxication: (3) Alcohol withdrawal: (4) Alcohol use disorder: Final Diagnosis Final Discharge Diagnosis: Bipolar disorder unspecified Alcohol use disorder Summary Hospital Course Hospital course: Ms. Loera is a 38 year old female?with a reported history of?bipolar disorder, depression, and alcohol use disorder?who presents for inpatient treatment due to?SI. Reportedly, patient presented to the ER with chief complaint of suicidal ideation. Patient threatened to cut herself. Patient does have guns in the house. Spouse at bedside states patient has been threatening times a week. States patient was recently discharged from alcohol rehab approximately a week ago. Patient states since being discharged she has been drinking. She states she drinks beer and vodka. Patient states today she has been just drinking beer. Patient states her last drink was 3 hours ago. Patient states she has a history of bipolar, hypertension, diabetes, and depression. Patient states she has not been taking any depression medications at home. Patient was personally seen by me on the day of the encounter. I reviewed the history and performed the morrow elements of the assessment. 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 Patient reports that she was really intoxicated when she said she was going to cut herself and that she is depressed but would not put her family through that.Patient reports she has had depression for a while but the bipolar disorder diagnosis was about a year in a half ago. Patient said that she is here because she drinks alcohol every day - about 1 bottle of vodka plus beer. Patient reports her drinking picked up and her life went downhill about 15 years ago when she got because her at the time slept with her best friend. Patient was [facility] during this time because she attempted suicide then and tried to slit her wrists. Patient shares that she came here from rehab and rehab obviously did not work for her and she started drinking again once she got out. Patient requested medications for her withdrawal symptoms. Patient presents as shakey and nauseous. Patient does report a seizurelast time she went through withdrawal in the hospital. Patient knowledgeable of her own medications and reports she is compliant with Paliperidone, Remeron, andCymbalta. Past psych history: Dx bipolar disorder and depression, alcohol use disorder Past hospitalizations: Previous [address] [place] [address] hospitalization 10-15 years ago for suicide attempt and depression; Patient just came from rehab for alcohol use disorder Past suicide attempts: 10-15 years ago - slit wrists Previous medications: Paliperidone for BPD, Cymbalta for depression, and Remeronfor sleep. Patient reports she used to take Seroquel but it did not work for her. Alcohol and drug use: Alcohol use every day - 1 bottle vodka + beers; reports vaping Living: Lives with , feels safe Employment: unemployed patient reports she sleeps well with Remeron, reports no appetite. Denies hallucinations but reports she does have lucid dreams . Denies SI/HI. Patient was transition from Invega to Lamictal and Seroquel. She tolerated the medication adjustment without any problems and did not report any side effects. She had gradual improvement of her symptoms as time went on. She had significant withdrawal symptoms and was on an Ativan and phenobarbital taper during her hospitalization. As her symptoms improved she became more linear andorganized. She started to deny any depression and suicidality. She did not exhibit any behavior concerning for suicidality during her hospital course. Shedid not have any conflict with peers or staff. On the day of discharge, she reported that she is feeling better. She denied any depression and suicidality. She was comfortable to discharge plan home and following up with outpatient services. Time spent discussing smoking cessation with patient: 3 to 10 minutes Condition Condition at Discharge: Stable Status at Discharge Cognitive/behavioral status at discharge: Mental Status Exam: Appearance: grossly normal Mental Status: mental status grossly normal Mood: Euthymic mood Affect: Normal affect Speech and Movement: speech normal, movement normal Attitude: cooperative Thought Process: normal Thought Content: Denied hallucinations, no homicidality and no suicidality Insight: Good Judgment: Good Functional status at discharge: independent ambulation Overall status at discharge: patient is back to baseline Time Spent with Patient Time spent providing/coordinating discharge services (# min): 30 Discharge Plan Discharge Plan Patient Disposition: Home Activity: No Activity Restriction Diet: Regular Additional Instructions: Important Contact Information You can call [facility] at [phone] any time day or night if you have emergent questions or question regarding discharge instructions. If at any time you are feeling an increase inyour psychiatric symptoms, call your physician or behavioral healthcare provider. If any time you have thoughts of harming yourself or others contact one of the following: Call 9-8-8 (available 30/10) Crisis Text Line (available 30/10) text 4HOPE to [phone] [facility] Hope Line (available 8 a.m. Midnight) call [phone] ([phone]) Regular Diet No Activity Restrictions Instructions: Depression, Adult (DC), Alcohol Use Disorder (DC), [facility] Behavioral Health DC Instructions, Know your Meds Prescriptions: New atorvastatin 20 mg Tablet 20 mg PO QPM 30 Days Qty: 30 0RF amlodipine 10 mg Tablet 10 mg PO DAILY 30 Days Qty: 30 0RF mirtazapine 15 mg Tablet 15 mg PO HS 30 Days Qty: 30 0RF cholecalciferol (vitamin D3) 125 mcg (5,000 unit) Capsule 125 mcg PO DAILY 30 Days Qty: 30 0RF hydroxyzine pamoate 50 mg Capsule 50 mg PO Q6H PRN (Reason: Anxiety) Qty: 60 0RF lamotrigine 25 mg Tablet 25 mg PO HS 30 Days Qty: 30 0RF folic acid 1 mg Tablet 1 mg PO DAILY 30 Days Qty: 30 0RF gabapentin 100 mg Capsule 200 mg PO TID 30 Days Qty: 180 0RF lorazepam 1 mg Tablet See Rx Instructions .ROUTE .COMPLEX 3 Days Qty: 5 0RF Rx Instructions: take 1 tablet BID for 2 days and the one tablet once a day for 2 days magnesium oxide 400 mg (241.3 mg magnesium) Tablet 400 mg PO BID 30 Days Qty: 60 0RF multivitamin with folic acid [Thera] 400 mcg Tablet 1 tab PO DAILY 30 Days Qty: 30 0RF quetiapine 25 mg Tablet 25 mg PO BID 30 Days Qty: 60 0RF thiamine HCl (vitamin B1) 100 mg Tablet 100 mg PO BID 30 Days Qty: 60 0RF nicotine 21 mg/24 hr Patch 24 Hour 21 mg transdermal DAILY Qty: 20 0RF Continued levothyroxine 50 mcg tablet 50 mcg PO DAILY Patient Comments: take 1 tablet by mouth every morning ON AN EMPTY STOMACH omeprazole 40 mg capsule,delayed release(DR/EC) 40 mg PO DAILY losartan 50 mg tablet 50 mg PO DAILY Patient Comments: take 1 tablet by mouth once daily naltrexone 50 mg tablet 50 mg PO DAILY Discontinued mirtazapine 7.5 mg tablet 7.5 mg PO HS paliperidone 6 mg tablet extended release 24 hr 6 mg PO DAILY amlodipine 5 mg tablet 5 mg PO DAILY Follow Up: [facility] [Outside] - 01/23/24 (A rn case manager will call you tomorrow 01/22 between 8-5 to discuss appointments and follow-up care. Financial and diagnostic assessment on 01/22 at 1:30pm Nursing intake on 02/05 at 10am Appointment [address] Dr. Valdovinos on 02/11 at 10:15am[facility] (see with any medical needs) Exam Physical Exam Vital Signs: Temp Pulse Resp BP Pulse Ox O2 Del Method 98.1 F 116 H 18 109/78 99 Room Air 01/22/24 08:00 01/22/24 08:00 01/22/24 08:00 01/22/24 08:00 01/22/24 08:00 01/22/24 08:00 Diagnostic Studies Completed and Pending Studies Pending studies at discharge: 01/19/24 05:29 Vitamin B1 (Thiamine) Blood IN AM Documented By: Devonte Valdovinos MD 01/22/24 1059 Signed By: <Electronically signed by Devonte Valdovinos MD> 01/22/24 5212 [facility] Work Phone: 1(994) 279-840910-14-2024 Progress note Author Devonte Valdovinos [facility] January 21, 2024 2:21pm Note Date/Time January 21, 2024 1 2:12pm [facility] [address] [place] [address] Psychiatry Progress Note Signed Patient: Shikha Loera MR#: [id number] : 1985 Acct:[id number] Age/Sex: 38 / F Adm Date: 4 Loc: Room: [address] [place] [address] Type : ADM IN Attending Dr: Jack Kwon MD Copies to: ~ Date of Service: 01/21/2024 Subjective Subjective Narrative: Ms. Loera is a 38 year old female on day 5 of hospitalization for SI and alcohol abuse. Today, pt presented as tearful. Patient is not disorganized anymore. Patient said she feels better and is ready to go home. Patient reports that her anxiety is an 8/10. Patient reports she is not depressed she's just sad that she can't go home yet. Patient states she wants to go home and see her 7 year old boy because he misses his mom. Patient reports there is no alcohol in her house and that if she gets to leave today she will go to an AA meeting first thing tomorrow morning. Sleeping and eating Attending group Denies hallucinations Denies SI/HI tolerating current meds MSE Appearance: grossly normal. Fair grooming and hygiene, calm, cooperative, engaged in the interview. Good eye contact. Normal psychomotor activity. Mental Status: mental status grossly normal Mood: anxious, tearful Affect: mood-congruent affect Speech and Movement: speech and movement normal. Regular rate, rhythm, volume, and tone. Non pressured. Attitude: cooperative Thought Process: austin; linear, logical, and goal-oriented Thought Content: Denies paranoid or delusional thoughts. Denied hallucinations, no homicidality and no suicidality. Does not appear to be responding to internalstimuli. Insight: limited , emerging Judgment: limited Patient was personally seen by me on the day of the encounter. I reviewed the history and performed the morrow elements of the physical examination. I formulated the plan of care and confirmed this with the medical student as notedbelow. Exam Physical Exam Vital Signs: Temp Pulse Resp BP Pulse Ox O2 Del Method 98.1 F 79 18 102/70 97 Room Air 01/21/24 09:00 01/21/24 09:00 01/21/24 09:00 01/21/24 09:00 01/21/24 09:00 01/21/24 09:00 Assessment/Plan Assessment/Plan (1) Bipolar depression: (2) Alcohol intoxication: (3) Alcohol withdrawal: (4) Alcohol use disorder: Plan Patient presents as tearful due to not being able to go home -Continue phenobarbitol taper. Will also decrease Ativan 1 mg 3 times a day if symptoms remain stable after taper will discharge home tomorrow -Continue Remeron 15mg PO HS, Lamictal 25mg PO HS, Gabapentin 200mg PO TID, Seroquel 25mg BID -Continue to monitor mental status -Monitor suicidal behaviors for safety of self (15-minute face check). -Encourage medication adherence. Risks, benefits, and alternatives of treatment explained -Recommend? attending groups and psychoeducation for building coping skills. -Risks, benefits and indications of medications were discussed with the patient.? -No abnormal movements noted on exam. AIMS is Zero. -Involve friends/family members to coordinate care and ensure appropriate outpatient appointments are scheduled prior to discharge. Documented By: Devonte Valdovinos MD 01/21/24 1021 Signed By: <Electronically signed by Devonte Valdovinos MD> 01/21/[address] [facility] Work Phone: 1(994) 148-180210-13-2024 Progress note Author Jack wright [facility] January 20, 2024 5:40pm Note Date/Time January 20, 2024 1 1:39am [facility] [address] [place] [address] Psychiatry Progress Note Signed Patient: Shikha Loera MR#: [id number] : 1985 Acct:[id number] Age/Sex: 38 / F Adm Date: 4 Loc: 1S Room: [address] [place] [address] Type : ADM IN Attending Dr: Jack Kwon MD Copies to: ~ Date of Service: 01/20/2024 Subjective Subjective Narrative: Ms. Loera is a 38 year old female on day 5 of hospitalization for SI and withdrawal. Today, pt presented as agitated because patient expressed she wanted to go home today. Patient rates anxiety 10/10 and depression 10/10 with racing thoughts. Patient is crying upon exam but states she feels better. Sleeping and eating Attending group Denies hallucinations Denies SI/HI tolerating current meds Patient was personally seen by me on the day of the encounter. I reviewed the history and performed the morrow elements of the assessment. I formulated the planof care and confirmed this with the medical student as noted below Mother of patient was called back - stated she wanted to leave her cell number which is a better way to get ahold of her. Ena Rooney [phone] Mother stated she just talked to Shikha and knows she is still hallucinating because she reports Shikha was saying weird stuff on the phone. MSE Appearance: grossly normal. Fair grooming and hygiene, calm, cooperative, engaged in the interview. Good eye contact. Normal psychomotor activity. Mental Status: mental status grossly normal Mood: tearful, agitated Affect: mood-congruent affect Speech and Movement: speech slightly slowed/slurred. Attitude: cooperative Thought Process: delusional - thinks she should be able to go home today Thought Content: Denies paranoid or delusional thoughts. Denied hallucinations, no homicidality and no suicidality. Does not appear to be responding to internalstimuli. Insight: limited , emerging Judgment: limited Exam Physical Exam Vital Signs: Temp Pulse Resp BP Pulse Ox O2 Del Method 98 F 110 H 18 121/82 98 Room Air 01/20/24 09:01 01/20/24 09:01 01/20/24 09:01 01/20/24 09:01 01/20/24 09:01 01/20/24 09:01 Objective Labs Labs: Abnormal Labs 01/20/24 06:42 Magnesium 1.6 L Assessment/Plan Assessment/Plan (1) Bipolar depression: (2) Alcohol intoxication: (3) Alcohol withdrawal: (4) Alcohol use disorder: Plan Plan: Patient presents as tearful and agitated. -Continue phenobarbitol taper - withdrawal protocol. -Continue Ativan 2mg PO TID, Remeron 15mg PO HS, Lamictal 25mg PO HS -Lower gabapentin to 200mg PO TID, Try Seroquel 25mg BID instead of TID to reduce risk of falls. -Continue to monitor mental status -Monitor suicidal behaviors for safety of self (15-minute face check). -Encourage medication adherence. Risks, benefits, and alternatives of treatment explained -Recommend? attending groups and psychoeducation for building coping skills. -Risks, benefits and indications of medications were discussed with the patient.? -No abnormal movements noted on exam. AIMS is Zero. -Involve friends/family members to coordinate care and ensure appropriate outpatient appointments are scheduled prior to discharge. Documented By: Jack Kwon MD [id number] Signed By: <Electronically signed by Jack Kwon MD> 01/20/24 0927 [facility] Work Phone: 1(445) 260-516110-13-2024 Progress note Author Helen Bailon [facility] January 20, 2024 4:29pm Note Date/Time January 20, 2024 4 :29pm [facility] [address] [place] [address] Hospitalist Progress Note Signed Patient: Shikha Loera MR#: [id number] : 1985 Acct:[id number] Age/Sex: 38 / F Adm Date: 4 Loc: Room: [address] [place] [address] Type: ADM IN Attending Dr: Jack Kwon MD Copies to: ~ Date of Service: 01/20/2024 Subjective Subjective Narrative: Is seen and examined. She has one-on-one supervision by staff. She was asleep when I went in the room, aroused easily, speech is clear and she offers no physical complaints. She does states she feels she is ready to go home I told her that will be up to psychiatry. She states she is sleeping but having vividnightmares . I advised her to discuss this with psychiatry tomorrow morning so they can ensure it is not secondary to any the medication she is currently taking. Staff with no other concerns. Exam Physical Exam Vital Signs: Temp Pulse Resp BP Pulse Ox O2 Del Method 98 F 101 H 18 106/75 99 Room Air 01/20/24 14:38 01/20/24 14:38 01/20/24 14:38 01/20/24 14:38 01/20/24 14:38 01/20/24 14:38 Narrative: CONST-alert, easily awakens, maintains body posture in bed CARDIAC- RRR no abnormal heart tones PULM- diminished without wheeze or rhonchi, RA, no accessory muscle use or coughnoted ABD- S/NT, NABS, thin EXTREM- no edema BLE, calves nontender SKIN- W/D, good turgor MS- MAEx4 spontaneously with equal strength NEURO- A&Ox self, speech clear, equal facial symmetry. No tremors noted PSYCH-cooperative Objective Lab Results 01/14/24 19:10 01/20/24 06:42 Meds Allergies and Active Meds Allergies lisinopril Allergy (Unknown, Verified 01/14/24 18:44) Swelling of Lip/Tongue/Throat Active Meds: Active Medications Generic Name Dose Route Start Last Admin Trade Name Freq PRN Reason Stop Dose Admin Acetaminophen 500 mg 01/15/24 10:57 Acetaminophen 500 Mg Tablet PO 01/14/25 10:56 Q6H PRN Fever or Pain Al Hydrox/Mg Hydrox/Simethicone 30 ml 01/15/24 10:57 Mag Hydrox/Al Hydrox/Simeth 30 Ml Udc PO 01/14/25 10:56 Q6H PRN Indigestion Amlodipine Besylate 10 mg 01/19/24 09:00 01/20/24 08:38 Amlodipine 10 Mg Tablet PO 01/18/25 08:59 10 mg DAILY AMISH Administration Atorvastatin Calcium 20 mg 01/18/24 21:00 01/19/24 21:03 Atorvastatin 20 Mg Tablet PO 01/17/25 20:59 20 mg QPM AMISH Administration Benztropine Mesylate 0.5 mg 01/15/24 10:57 Benztropine 2 Mg/2 Ml Ampul IM 01/14/25 10:56 Q6H PRN Dystonia Benztropine Mesylate 0.5 mg 01/15/24 10:57 Benztropine 0.5 Mg Tablet PO 01/14/25 10:56 Q6H PRN Dystonia Folic Acid 1 mg 01/16/24 09:00 01/20/24 08:39 Folic Acid 1 Mg Tablet PO 01/15/25 08:59 1 mg DAILY AMISH Administration Gabapentin 200 mg 01/20/24 09:00 01/20/24 14:16 Gabapentin 100 Mg Capsule PO 01/19/25 08:59 200 mg TID AMISH Administration Hydroxyzine Pamoate 50 mg 01/15/24 10:57 01/20/24 11:21 Hydroxyzine Pamoate 50 Mg Capsule PO 01/14/25 10:56 50 mg Q6H PRN Administration Anxiety Ibuprofen 400 mg 01/15/24 10:57 01/16/24 11:39 Ibuprofen 400 Mg Tablet PO 01/14/25 10:56 400 mg Q6H PRN Administration Pain Lamotrigine 25 mg 01/20/24 22:00 Lamotrigine 25 Mg Tablet PO 01/19/25 21:59 HS AMISH Levothyroxine Sodium 50 mcg 01/16/24 06:30 01/20/24 06:21 Levothyroxine 50 Mcg Tablet PO 01/15/25 06:29 50 mcg DAILY.0630 AMISH Administration Lorazepam 0 mg 01/15/24 11:28 01/18/24 03:29 Lorazepam 1 Mg Tablet PO 07/13/24 11:27 2 mg PROTOCOL PRN Administration Alcohol Withdrawal Protocol Lorazepam 0 mg 01/15/24 11:28 01/19/24 06:46 Lorazepam 2 Mg/Ml Vial IM 07/13/24 11:27 3 mg PROTOCOL PRN Administration Alcohol Withdrawal Protocol Lorazepam 2 mg 01/18/24 09:00 01/20/24 14:16 Lorazepam 1 Mg Tablet PO 07/16/24 08:59 2 mg TID AMISH Administration Losartan Potassium 50 mg 01/19/24 09:00 01/20/24 08:40 Losartan 50 Mg Tablet PO 01/18/25 08:59 50 mg DAILY AMISH Administration Magnesium Hydroxide 30 ml 01/15/24 10:57 Magnesium Hydroxide Susp 30 Ml Udc PO 01/14/25 10:56 Q6H PRN Constipation Magnesium Oxide 400 mg 01/20/24 21:00 Magnesium Oxide 400 Mg Tablet PO 01/19/25 20:59 BID AMISH Mirtazapine 15 mg 01/18/24 22:00 10/12/24 21:04 Mirtazapine 15 Mg Tablet PO 01/17/25 21:59 15 mg HS AMISH Administration Multivitamins 1 tab 01/16/24 09:00 01/20/24 08:40 Multivitamin 1 Tab Tablet PO 01/15/25 08:59 1 tab DAILY AMISH Administration Nicotine 1 each 01/15/24 11:10 01/20/24 08:38 Nicotine Patch 21 Mg/24hr 1 Each Patch.Td24 TRANSDERML 02/25/24 09:01 1 each DAILY AMISH Administration Olanzapine 5 mg 01/15/24 10:57 01/18/24 21:27 Olanzapine 10 Mg Vial *Nf* IM 01/14/25 10:56 5 mg Q6H PRN Administration Agitation Olanzapine 5 mg 01/15/24 10:57 01/18/24 08:45 Olanzapine 5 Mg Tablet PO 01/14/25 10:56 5 mg Q6H PRN Administration Agitation Pantoprazole Sodium 40 mg 01/16/24 09:00 01/20/24 08:41 Pantoprazole 40 Mg Tablet.Dr PO 01/15/25 08:59 40 mg DAILY AMISH Administration Phenobarbital 32.4 mg 01/18/24 11:30 01/20/24 11:22 Phenobarbital 32.4 Mg Tablet PO 01/22/24 11:29 32.4 mg Q6H AMISH Administration Taper Phenobarbital 32.4 mg 01/18/24 14:19 Phenobarbital 32.4 Mg Tablet PO 01/22/24 14:18 Q6H PRN Alcohol Withdrawal Taper Quetiapine Fumarate 25 mg 01/20/24 08:15 01/20/24 08:37 Quetiapine Fumarate 25 Mg Tablet PO 01/19/25 08:14 25 mg BID AMISH Administration Sodium Chloride 0 ml 01/14/24 18:43 Sodium Chloride 0.9 % 10 Ml Syringe IV-PUSH 01/13/25 18:42 PRN PRN Flush Sterile Water 2.1 ml 01/15/24 10:57 01/18/24 21:26 Water For Injection,Sterile 10 Ml Vial INJECTION 01/14/25 10:56 2.1 ml PRN PRN Administration To dilute OLANZapine (ZyPREXA) Thiamine HCl 100 mg 01/15/24 21:00 01/20/24 08:41 Thiamine 100 Mg Tablet PO 01/14/25 20:59 100 mg BID AMISH Administration Trazodone HCl 50 mg 01/15/24 10:57 01/19/24 21:05 Trazodone 50 Mg Tablet PO 01/14/25 10:56 50 mg QHS PRN Administration Insomnia Vitamin D 125 mcg 01/19/24 09:00 01/20/24 08:39 Cholecalciferol 125 Mcg (5,000 Units) Capsule PO 01/18/25 08:59 125 mcg DAILY AMISH Administration A&P - Hospitalist Assessment/Plan (1) Alcohol intoxication: (2) Alcohol withdrawal: (3) Alcohol use disorder: (4) Hypokalemia: (5) Hypomagnesemia: (6) Vitamin D deficiency: (7) HTN (hypertension): (8) Hypothyroid: (9) Hyperlipidemia: Plan Alcohol withdrawal, improving Alcohol use disorder, alcohol intoxication on admit -CIWA protocol, vitamin therapy, Phenobarbital taper initiated- Chlordiazepoxidediscontinued, safety management per psych staff Hypokalemia Hypomagnesemia -replete, trend lab Hyperlipidemia -not on chronic med at home -initiate atorvastatin Vitamin D deficiency -cholecalciferol initiated Chronic Conditions 1. Hypertension- amlodipine increased though BP elevations may be secondary to withdrawal, losartan 2. Hypothyroid- levothyroxine. TSH 3.66 3. GERD- pantoprazole 4. Diabetes history possibly gestational- check A1c Bipolar depression -further plan of care per inpatient psychiatric team for psychoactive medicationmanagement/ adjustment and psychotherapy Documented By: Helen Bailon APRN 01/07 Signed By: <Electronically signed by CATIA Bailon> 01/20/241628 [facility] Work Phone: 1(726) 934-395010-12-2024 Progress note Author Helen Bailon [facility] January 19, 2024 4:50pm Note Date/Time January 19, 2024 4 :50pm [facility] [address] [place] [address] Hospitalist Progress Note Signed Patient: Shikha Loera MR#: [id number] : 1985 Acct:[id number] Age/Sex: 38 / F Adm Date: 4 Loc: Room: [address] [place] [address] Type: ADM IN Attending Dr: Jack Kwon MD Copies to: ~ Date of Service: 01/19/2024 Subjective Subjective Narrative: Patient is seen and examined on follow-up. She is now back in the secure special care area. She appears improved today, still groggy but more oriented, aware she is in the hospital. Asks about home-going tomorrow. Explained we need to help her through the withdrawal period. She is attempting to eat her dinner at the time of my visit, really only taking bites. Denies any complaintsof headache dizziness, chest pain or dyspnea, cramping or diarrhea. Exam Physical Exam Vital Signs: Temp Pulse Resp BP Pulse Ox O2 Del Method 98.6 F 103 H 16 119/80 98 Room Air 01/19/24 16:00 01/19/24 16:00 01/19/24 16:00 01/19/24 16:00 01/19/24 16:00 01/19/24 16:00 Narrative: CONST-alert but groggy, sitting upright on bed CARDIAC- RRR no abnormal heart tones PULM- diminished without wheeze or rhonchi, RA, no accessory muscle use or coughnoted ABD- S/NT, NABS, thin EXTREM- no edema BLE, calves nontender SKIN- W/D, good turgor MS- MAEx4 spontaneously with equal strength NEURO- A&Ox self, speech improved less slurring today, equal facial symmetry. No tremors noted PSYCH-cooperative Objective Lab Results 01/14/24 19:10 01/19/24 05:29 Meds Allergies and Active Meds Allergies lisinopril Allergy (Unknown, Verified 01/14/24 18:44) Swelling of Lip/Tongue/Throat Active Meds: Active Medications Generic Name Dose Route Start Last Admin Trade Name Freq PRN Reason Stop Dose Admin Acetaminophen 500 mg 01/15/24 10:57 Acetaminophen 500 Mg Tablet PO 01/14/25 10:56 Q6H PRN Fever or Pain Al Hydrox/Mg Hydrox/Simethicone 30 ml 01/15/24 10:57 Mag Hydrox/Al Hydrox/Simeth 30 Ml Udc PO 01/14/25 10:56 Q6H PRN Indigestion Amlodipine Besylate 10 mg 01/19/24 09:00 01/19/24 09:52 Amlodipine 10 Mg Tablet PO 01/18/25 08:59 10 mg DAILY AMISH Administration Atorvastatin Calcium 20 mg 01/18/24 21:00 01/18/24 21:30 Atorvastatin 20 Mg Tablet PO 01/17/25 20:59 20 mg QPM AMISH Administration Benztropine Mesylate 0.5 mg 01/15/24 10:57 Benztropine 2 Mg/2 Ml Ampul IM 01/14/25 10:56 Q6H PRN Dystonia Benztropine Mesylate 0.5 mg 01/15/24 10:57 Benztropine 0.5 Mg Tablet PO 01/14/25 10:56 Q6H PRN Dystonia Folic Acid 1 mg 01/16/24 09:00 01/19/24 09:52 Folic Acid 1 Mg Tablet PO 01/15/25 08:59 1 mg DAILY AMISH Administration Gabapentin 300 mg 01/18/24 09:00 01/19/24 14:33 Gabapentin 300 Mg Capsule PO 01/17/25 08:59 300 mg TID AMISH Administration Hydroxyzine Pamoate 50 mg 01/15/24 10:57 01/18/24 08:46 Hydroxyzine Pamoate 50 Mg Capsule PO 01/14/25 10:56 50 mg Q6H PRN Administration Anxiety Ibuprofen 400 mg 01/15/24 10:57 01/16/24 11:39 Ibuprofen 400 Mg Tablet PO 01/14/25 10:56 400 mg Q6H PRN Administration Pain Lamotrigine 25 mg 01/16/24 09:00 01/19/24 09:52 Lamotrigine 25 Mg Tablet PO 01/15/25 08:59 25 mg DAILY AMISH Administration Levothyroxine Sodium 50 mcg 01/16/24 06:30 01/19/24 05:39 Levothyroxine 50 Mcg Tablet PO 01/15/25 06:29 50 mcg DAILY.0630 AMISH Administration Lorazepam 0 mg 01/15/24 11:28 01/18/24 03:29 Lorazepam 1 Mg Tablet PO 07/13/24 11:27 2 mg PROTOCOL PRN Administration Alcohol Withdrawal Protocol Lorazepam 0 mg 01/15/24 11:28 01/19/24 06:46 Lorazepam 2 Mg/Ml Vial IM 07/13/24 11:27 3 mg PROTOCOL PRN Administration Alcohol Withdrawal Protocol Lorazepam 2 mg 01/18/24 09:00 01/19/24 14:33 Lorazepam 1 Mg Tablet PO 07/16/24 08:59 2 mg TID AMISH Administration Losartan Potassium 50 mg 01/19/24 09:00 01/19/24 09:53 Losartan 50 Mg Tablet PO 01/18/25 08:59 50 mg DAILY AMISH Administration Magnesium Hydroxide 30 ml 01/15/24 10:57 Magnesium Hydroxide Susp 30 Ml Udc PO 01/14/25 10:56 Q6H PRN Constipation Magnesium Oxide 400 mg 01/19/24 09:00 01/19/24 09:53 Magnesium Oxide 400 Mg Tablet PO 01/18/25 08:59 400 mg DAILY AMISH Administration Mirtazapine 15 mg 01/18/24 22:00 01/18/24 21:30 Mirtazapine 15 Mg Tablet PO 01/17/25 21:59 15 mg HS AMISH Administration Multivitamins 1 tab 01/16/24 09:00 01/19/24 09:53 Multivitamin 1 Tab Tablet PO 01/15/25 08:59 1 tab DAILY AMISH Administration Nicotine 1 each 01/15/24 11:10 01/19/24 09:53 Nicotine Patch 21 Mg/24hr 1 Each Patch.Td24 TRANSDERML 02/25/24 09:01 1 each DAILY AMISH Administration Olanzapine 5 mg 01/15/24 10:57 01/18/24 21:27 Olanzapine 10 Mg Vial *Nf* IM 01/14/25 10:56 5 mg Q6H PRN Administration Agitation Olanzapine 5 mg 01/15/24 10:57 01/18/24 08:45 Olanzapine 5 Mg Tablet PO 01/14/25 10:56 5 mg Q6H PRN Administration Agitation Pantoprazole Sodium 40 mg 01/16/24 09:00 01/19/24 09:52 Pantoprazole 40 Mg Tablet.Dr PO 01/15/25 08:59 40 mg DAILY AMISH Administration Phenobarbital 48.6 mg 01/18/24 11:30 01/19/24 12:08 Phenobarbital 32.4 Mg Tablet PO 01/22/24 11:29 48.6 mg Q6H AMISH Administration Taper Phenobarbital 48.6 mg 01/18/24 14:19 Phenobarbital 32.4 Mg Tablet PO 01/22/24 14:18 Q6H PRN Alcohol Withdrawal Taper Quetiapine Fumarate 25 mg 01/18/24 06:15 01/19/24 14:33 Quetiapine Fumarate 25 Mg Tablet PO 01/17/25 06:14 25 mg TID AMISH Administration Sodium Chloride 0 ml 01/14/24 18:43 Sodium Chloride 0.9 % 10 Ml Syringe IV-PUSH 01/13/25 18:42 PRN PRN Flush Sterile Water 2.1 ml 01/15/24 10:57 01/18/24 21:26 Water For Injection,Sterile 10 Ml Vial INJECTION 01/14/25 10:56 2.1 ml PRN PRN Administration To dilute OLANZapine (ZyPREXA) Thiamine HCl 100 mg 01/15/24 21:00 01/19/24 09:53 Thiamine 100 Mg Tablet PO 01/14/25 20:59 100 mg BID AMISH Administration Trazodone HCl 50 mg 01/15/24 10:57 01/18/24 21:29 Trazodone 50 Mg Tablet PO 01/14/25 10:56 50 mg QHS PRN Administration Insomnia Vitamin D 125 mcg 01/19/24 09:00 01/19/24 09:52 Cholecalciferol 125 Mcg (5,000 Units) Capsule PO 01/18/25 08:59 125 mcg DAILY AMISH Administration A&P - Hospitalist Assessment/Plan (1) Alcohol intoxication: (2) Alcohol withdrawal: (3) Alcohol use disorder: (4) Hypokalemia: (5) Hypomagnesemia: (6) Vitamin D deficiency: (7) HTN (hypertension): (8) Hypothyroid: (9) Hyperlipidemia: Plan Alcohol withdrawal Alcohol use disorder, alcohol intoxication on admit -WA protocol, vitamin therapy, Phenobarbital taper initiated- Chlordiazepoxidediscontinued, safety management per psych staff Hypokalemia Hypomagnesemia -replete, trend lab Hyperlipidemia -not on chronic med at home -initiate atorvastatin Vitamin D deficiency -cholecalciferol initiated Chronic Conditions 1. Hypertension- amlodipine increased though BP elevations may be secondary to withdrawal, losartan 2. Hypothyroid- levothyroxine. TSH 3.66 3. GERD- pantoprazole 4. Diabetes history possibly gestational- check A1c Bipolar depression -further plan of care per inpatient psychiatric team for psychoactive medicationmanagement/ adjustment and psychotherapy Documented By: Helen Bailon APRN 01/07 06/02 7641 Signed By: <Electronically signed by CATIA Sandsy> 01/19/[address] [facility] Work Phone: 1([phone]) 885-803010-12-2024 Progress note Author Jack wright [facility] January 19, 2024 8:01am Note Date/Time January 19, 2024 7 :59am [facility] [address] [place] [address] Psychiatry Progress Note Signed Patient: Shikha Loera MR#: [id number] : 1985 Acct:[id number] Age/Sex: 38 / F Adm Date: 4 Loc: Room: [address] [place] [address] Type : ADM IN Attending Dr: Jack Kwon MD Copies to: ~ Date of Service: 01/19/2024 Subjective Subjective Narrative: Ms. Loera is responding in a disorganized and difficult to understand. She was evaluated by medical team and was started on phenobarbital taper. She is lethargic on exam. Potassium is 3.2. Medical team on board. MSE Appearance: grossly normal. Fair grooming and hygiene, calm, cooperative, engaged in the interview. Good eye contact. Normal psychomotor activity. Mental Status: mental status confused Mood: anxious Affect: mood-congruent affect Speech and Movement: speech and movement normal. Regular rate, rhythm, volume, and tone. Non pressured. Attitude: Moderately cooperative Thought Process: Confused Thought Content: Denies paranoid or delusional thoughts. Denied hallucinations, no homicidality and no suicidality. Does not appear to be responding to internalstimuli. Insight: Poor Judgment: Poor Exam Physical Exam Vital Signs: Temp Pulse Resp BP Pulse Ox O2 Del Method 98 F 96 24 147/96 H 98 Room Air 01/18/24 22:11 01/19/24 06:32 01/19/24 06:32 01/19/24 06:32 01/19/24 06:32 01/19/24 06:32 Objective Labs Labs: Abnormal Labs 01/16/24 01/18/24 01/19/24 05:40 05:27 05:29 Potassium 3.2 L Chloride 108 H Magnesium 1.6 L 1.4 L Assessment/Plan Assessment/Plan (1) Bipolar depression: Plan Patient was started on phenobarbital taper. Continue Ativan 2 mg PO BID and CIWA with ativan Continue Seroquel 25 mg PO BID and Gabapentin 300 mg PO TID Continue to monitor mental status Continue monitoring during alcohol withdrawal process. Monitor suicidal behaviors for safety of self (15-minute face check). Encourage medication adherence. Risks, benefits, and alternatives of treatment explained Recommend? attending groups and psychoeducation for building coping skills. Risks, benefits and indications of medications were discussed with the patient.? Involve friends/family members to coordinate care and ensure appropriate outpatient appointments are scheduled prior to discharge. Documented By: Jack Kwon MD 4 [id number] Signed By: <Electronically signed by Jack Kwon MD> 01/19/[address] [facility] Work Phone: 1(428) 537-935810-11-2024 Consult note Author Hair Nixon [facility] January 18, 2024 7:40pm Note Date/Time January 18, 2024 1 1:50am [facility] [address] [place] [address] Hospitalist Consult Note Signed Patient: Shikha Loera MR#: [id number] : 1985 Acct:[id number] Age/Sex: 38 / F Adm Date: 4 Loc: Room: [address] [place] [address] Type: ADM IN Attending Dr: Jack Kwon MD Copies to: Jack Kwon MD [facility] CATIA Dennis, DO~ HPI DATE OF CONSULTATION: 01/18/24 REQUESTING PROVIDER: Jack Kwon Consult Narrative Reason for Consult: HTN, alcohol withdrawal HPI: 38 year-old female past medical history alcoholism, hypertension, diabetes, hyperlipidemia, Crohns, hypothyroid, GERD, pancreatitis, bipolar. Presented to the emergency department January 13 intoxicated and suicidal. Had been discharged from alcohol rehab just a week prior. Drinks beer and vodka with last consumption 01/13 mid afternoon. She was kept in the ER prolonged for ETOH clearance, initial lab value for ETOH was 456. Admitted to the inpatient psychiatric unit for ongoing mental health management. Developed alcohol withdrawal while on unit, CIWA protocol in place and psychiatry also had scheduled Librium, with subsequent dosing increase. Hospitalist consulted for management of BP elevations and worsening withdrawal. BP elevations are probably secondary to withdrawal. Patient is not able to offer much subjective information, actively hallucinatingthinking her children are in the room. Staff reports behavioral issues on unit,and that she has even swung at nursing staff. She is now in her room with one-on-one staff member. Nursing states she has not ate today, no nausea or diarrhea. Unable to determine if patient having any abdominal pain or cramping. She follows some commands for exam, does not respond appropriately to questions, thinks she is at home. She is seated on bed, holds trunk upright andtakes pills for nursing staff. Eventually lies down becomes quiet, and is covered up by staff. Nursing indicates she has had no physical complaints for them. Review of Systems Review of Systems All other systems reviewed & are negative unless noted below or in HPI [facility] Medical History (Updated 01/18/24 @ 14:15 by Helen Bailon APRN) Colitis Distal radius fracture, left Vitamin D deficiency Hx gestational diabetes BMI 21.0-21.9, adult Hyperlipidemia Type 2 diabetes mellitus with hyperglycemia Crohn's disease GERD (gastroesophageal reflux disease) Hemangioma COVID (~01/27/21) High cholesterol Hypothyroid HTN (hypertension) Pancreatitis Surgical History History of hemangioma excision Family History Father Diabetes Myocardial infarction Cancer Grandparent Myocardial infarction Sister Hypertension Father Diabetes Heart disease Cancer Legacy FamHx Problem: Diagnosed with Cancer Family/Other Family history of other condition Legacy FamHx Problem: 1 sister HTN:1 son autisim Sister Hypertension Social History Smoking Status: Current every day smoker Tobacco Type: e-cigarettes Substance Use Type: Alcohol Substance Abuse Comment: SUNDAY APPX 1900 Meds Medications and Allergies Allergies lisinopril Allergy (Unknown, Verified 01/14/24 18:44) Swelling of Lip/Tongue/Throat Home Medications levothyroxine 50 mcg tablet 50 mcg PO DAILY 02/28/21 [History Confirmed 01/15/24] losartan 50 mg tablet 50 mg PO DAILY 07/09/21 [History Confirmed 01/15/24] amlodipine 5 mg tablet 5 mg PO DAILY 06/13/23 [History Confirmed 01/15/24] omeprazole 40 mg capsule,delayed release 40 mg PO DAILY Acid Reflux 06/14/23 [History Confirmed 01/15/24] mirtazapine 7.5 mg tablet 7.5 mg PO HS 01/15/24 [History Confirmed 01/15/24] naltrexone 50 mg tablet 50 mg PO DAILY 01/15/24 [History Confirmed 01/15/24] paliperidone 6 mg tablet,extended release 24 hr 6 mg PO DAILY 01/15/24 [History Confirmed 01/15/24] Active Medications: Active Medications Generic Name Dose Route Start Last Admin Trade Name Freq PRN Reason Stop Dose Admin Acetaminophen 500 mg 01/15/24 10:57 Acetaminophen 500 Mg Tablet PO 01/14/25 10:56 Q6H PRN Fever or Pain Al Hydrox/Mg Hydrox/Simethicone 30 ml 01/15/24 10:57 Mag Hydrox/Al Hydrox/Simeth 30 Ml Udc PO 01/14/25 10:56 Q6H PRN Indigestion Amlodipine Besylate 10 mg 01/19/24 09:00 Amlodipine 10 Mg Tablet PO 01/18/25 08:59 DAILY AMISH Benztropine Mesylate 0.5 mg 01/15/24 10:57 Benztropine 2 Mg/2 Ml Ampul IM 01/14/25 10:56 Q6H PRN Dystonia Benztropine Mesylate 0.5 mg 01/15/24 10:57 Benztropine 0.5 Mg Tablet PO 01/14/25 10:56 Q6H PRN Dystonia Folic Acid 1 mg 01/16/24 09:00 01/18/24 08:46 Folic Acid 1 Mg Tablet PO 01/15/25 08:59 1 mg DAILY AMISH Administration Gabapentin 300 mg 01/18/24 09:00 01/18/24 08:46 Gabapentin 300 Mg Capsule PO 01/17/25 08:59 300 mg TID AMISH Administration Hydroxyzine Pamoate 50 mg 01/15/24 10:57 01/18/24 08:46 Hydroxyzine Pamoate 50 Mg Capsule PO 01/14/25 10:56 50 mg Q6H PRN Administration Anxiety Ibuprofen 400 mg 01/15/24 10:57 01/16/24 11:39 Ibuprofen 400 Mg Tablet PO 01/14/25 10:56 400 mg Q6H PRN Administration Pain Lamotrigine 25 mg 01/16/24 09:00 01/18/24 08:46 Lamotrigine 25 Mg Tablet PO 01/15/25 08:59 25 mg DAILY AMISH Administration Levothyroxine Sodium 50 mcg 01/16/24 06:30 01/18/24 05:31 Levothyroxine 50 Mcg Tablet PO 01/15/25 06:29 50 mcg DAILY.0630 AMISH Administration Lorazepam 0 mg 01/15/24 11:28 01/18/24 03:29 Lorazepam 1 Mg Tablet PO 07/13/24 11:27 2 mg PROTOCOL PRN Administration Alcohol Withdrawal Protocol Lorazepam 0 mg 01/15/24 11:28 01/18/24 11:12 Lorazepam 2 Mg/Ml Vial IM 07/13/24 11:27 4 mg PROTOCOL PRN Administration Alcohol Withdrawal Protocol Lorazepam 2 mg 01/18/24 09:00 01/18/24 08:46 Lorazepam 1 Mg Tablet PO 07/16/24 08:59 2 mg TID AMISH Administration Losartan Potassium 50 mg 01/19/24 09:00 Losartan 50 Mg Tablet PO 01/18/25 08:59 DAILY AMISH Magnesium Hydroxide 30 ml 01/15/24 10:57 Magnesium Hydroxide Susp 30 Ml Udc PO 01/14/25 10:56 Q6H PRN Constipation Mirtazapine 15 mg 01/18/24 22:00 Mirtazapine 15 Mg Tablet PO 01/17/25 21:59 HS AMISH Multivitamins 1 tab 01/16/24 09:00 01/17/24 08:11 Multivitamin 1 Tab Tablet PO 01/15/25 08:59 1 tab DAILY AMISH Administration Nicotine 1 each 01/15/24 11:10 01/18/24 08:44 Nicotine Patch 21 Mg/24hr 1 Each Patch.Td24 TRANSDERML 02/25/24 09:01 1 each DAILY AMISH Administration Olanzapine 5 mg 01/15/24 10:57 Olanzapine 10 Mg Vial *Nf* IM 01/14/25 10:56 Q6H PRN Agitation Olanzapine 5 mg 01/15/24 10:57 01/18/24 08:45 Olanzapine 5 Mg Tablet PO 01/14/25 10:56 5 mg Q6H PRN Administration Agitation Pantoprazole Sodium 40 mg 10/09/24 09:00 01/18/24 08:46 Pantoprazole 40 Mg Tablet.Dr PO 01/15/25 08:59 40 mg DAILY AMISH Administration Phenobarbital 64.8 mg 01/18/24 11:30 01/18/24 11:35 Phenobarbital 32.4 Mg Tablet PO 01/22/24 11:29 64.8 mg Q6H AMISH Administration Taper Phenobarbital 64.8 mg 01/18/24 14:19 Phenobarbital 32.4 Mg Tablet PO 01/22/24 14:18 Q6H PRN Alcohol Withdrawal Taper Quetiapine Fumarate 25 mg 01/18/24 06:15 01/18/24 06:15 Quetiapine Fumarate 25 Mg Tablet PO 01/17/25 06:14 25 mg TID AMISH Administration Sodium Chloride 0 ml 01/14/24 18:43 Sodium Chloride 0.9 % 10 Ml Syringe IV-PUSH 01/13/25 18:42 PRN PRN Flush Sterile Water 2.1 ml 01/15/24 10:57 Water For Injection,Sterile 10 Ml Vial INJECTION 01/14/25 10:56 PRN PRN To dilute OLANZapine (ZyPREXA) Thiamine HCl 100 mg 01/15/24 21:00 01/18/24 08:47 Thiamine 100 Mg Tablet PO 01/14/25 20:59 100 mg BID AMISH Administration Trazodone HCl 50 mg 01/15/24 10:57 01/17/24 21:29 Trazodone 50 Mg Tablet PO 01/14/25 10:56 50 mg QHS PRN Administration Insomnia Exam Physical Exam Vital Signs: Temp Pulse Resp BP Pulse Ox O2 Del Method 98.0 F 96 16 169/106 H 97 Room Air 01/18/24 04:30 01/18/24 05:59 01/18/24 05:59 01/18/24 05:59 01/18/24 05:59 01/18/24 05:59 Narrative: CONST- lethargic, sitting upright on bed, confused HEAD- normocephalic and atraumatic EENT- sclera nonicteric and conjunctiva nonerythemic, moist oral mucosa, pharynxnot visualized NECK- supple, no cervical lymphadenopathy CARDIAC- RRR no abnormal heart tones PULM- diminished without wheeze or rhonchi, RA, no accessory muscle use or coughnoted ABD- S/NT, NABS, thin EXTREM- no edema BLE, calves nontender SKIN- W/D, good turgor MS- MAEx4 spontaneously with equal strength NEURO- A&Ox self, speech slurring, equal facial symmetry. No tremors noted but does not fully follow command to assess PSYCH-hallucinating, restless Results - Hospitalist Consult Lab Results Labs: Laboratory Results - last 72 hr 01/18/24 05:27: PHA Creatinine Clear 110.63, Sodium 140, Potassium 3.4 L, Chloride 105, Carbon Dioxide 23.9, Anion Gap 14.5, BUN 5 L, Creatinine 0.66, EstGFR (CKD- EPI) > 60.0, Glucose 135 H, Calcium 10.2, Total Bilirubin 0.7, AST 103 H, ALT 66 H, Alkaline Phosphatase 97, Total Protein 7.6, Albumin 4.5, Globulin 3.1, Albumin/Globulin Ratio 1.5 01/16/24 05:40: Triglycerides 143, Cholesterol 270 H, LDL Cholesterol, Calc 134 H, VLDL Cholesterol 28, HDL Cholesterol 107 H, Cholesterol/HDL Ratio 2.5, 25-OH Vitamin D Total 12.7 L, TSH 3rd Generation 3.66 Assessment & Plan Assessment/Plan (1) Alcohol intoxication: (2) Alcohol withdrawal: (3) Alcohol use disorder: (4) Hypokalemia: (5) Hypomagnesemia: (6) Vitamin D deficiency: (7) HTN (hypertension): (8) Hypothyroid: (9) Hyperlipidemia: Plan Alcohol withdrawal Alcohol use disorder, alcohol intoxication on admit -WA protocol, vitamin therapy, Phenobarbital taper initiated- Chlordiazepoxidediscontinued, safety management per psych staff Hypokalemia Hypomagnesemia -replete, trend lab Hyperlipidemia -not on chronic med at home -initiate atorvastatin Vitamin D deficiency -cholecalciferol initiated Chronic Conditions 1. Hypertension- amlodipine increased though BP elevations may be secondary to withdrawal, losartan 2. Hypothyroid- levothyroxine. TSH 3.66 3. GERD- pantoprazole 4. Diabetes history possibly gestational- check A1c Bipolar depression -further plan of care per inpatient psychiatric team for psychoactive medicationmanagement/ adjustment and psychotherapy Documented By: Helen Zarate-CATIA Schmid 01/07 05/02 1150 Signed By: <Electronically signed by CATIA Bailon> 01/18/24 1558 <Electronically signed by Hari Nixon DO> 01/18/[address] [facility] Work Phone: 1(688) 615-246810-11-2024 Progress note Author Jack wright [facility] January 18, 2024 2:15pm Note Date/Time January 18, 2024 9 :31am [facility] [address] [place] [address] Psychiatry Progress Note Signed Patient: Shikha Loera MR#: [id number] : 1985 Acct:[id number] Age/Sex: 38 / F Adm Date: 4 Loc: Room: [address] [place] [address] Type : ADM IN Attending Dr: Jack Kwon MD Copies to: ~ Date of Service: 01/18/2024 Subjective Subjective Narrative: Ms. Loera is responding in a disorganized and difficult to understand fashion. Patient was personally seen by me on the day of the encounter. I reviewed the history and performed the morrow elements of the assessment. I formulated the planof care and confirmed this with the resident as noted below Patient presents as disorganized going through withdrawal. Librium was switched to Ativan due to elevated liver enzymes. Seroquel was added to help with racing thoughts. Gabapentin can help with adjunctive treatment for withdrawal. I was able to get that her depression today is an 8 out of 10, anxiety 10 out of 10, though she denied suicidal or homicidal ideation. She did not sleep very much and has not eaten anything this morning. She says she is feeling a little loopyfrom the alcohol withdrawal. 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 She has a one-on-one sitter following her. MSE Appearance: grossly normal. Fair grooming and hygiene, calm, cooperative, engaged in the interview. Good eye contact. Normal psychomotor activity. Mental Status: mental status confused Mood: anxious Affect: mood-congruent affect Speech and Movement: speech and movement normal. Regular rate, rhythm, volume, and tone. Non pressured. Attitude: Moderately cooperative Thought Process: Confused Thought Content: Denies paranoid or delusional thoughts. Denied hallucinations, no homicidality and no suicidality. Does not appear to be responding to internalstimuli. Insight: Poor Judgment: Poor Exam Physical Exam Vital Signs: Temp Pulse Resp BP Pulse Ox O2 Del Method 98.0 F 96 16 169/106 H 97 Room Air 01/18/24 04:30 01/18/24 05:59 01/18/24 05:59 01/18/24 05:59 01/18/24 05:59 01/18/24 05:59 Objective Labs Labs: Abnormal Labs 01/18/24 05:27 Potassium 3.4 L BUN 5 L Glucose 135 H AST 103 H ALT 66 H Assessment/Plan Assessment/Plan (1) Bipolar depression: Plan Switch Librium to Ativan 2 mg PO BID Continue CIWA with ativan Add Seroquel 25 mg PO BID and Gabapentin 300 mg PO TID Continue to monitor mental status Continue monitoring during alcohol withdrawal process. Monitor suicidal behaviors for safety of self (15-minute face check). Encourage medication adherence. Risks, benefits, and alternatives of treatment explained Recommend? attending groups and psychoeducation for building coping skills. Risks, benefits and indications of medications were discussed with the patient.? Involve friends/family members to coordinate care and ensure appropriate outpatient appointments are scheduled prior to discharge. Documented By: Jack Kwon MD 4 [id number] Signed By: <Electronically signed by Jack Kwon MD> 01/18/[address] [facility] Work Phone: 1(978) 725-145910-10-2024 Progress note Author Jack wright [facility] January 17, 2024 6:35am Note Date/Time January 17, 2024 6 :35am [facility] [address] [place] [address] Psychiatry Progress Note Signed Patient: Shikha Loera MR#: [id number] : 1985 Acct:[id number] Age/Sex: 38 / F Adm Date: 4 Loc: 1S Room: [address] [place] [address] Type : ADM IN Attending Dr: Jack Kwon MD Copies to: ~ Date of Service: 01/17/2024 Subjective Subjective Narrative: Ms. Loera said she has been anxious but denied SI/HI. She said her father inlmag removed all guns from her home. Patient was [facility] because she attempted suicide then and tried to slit her wrists. Patient shares that she came here from rehab and rehab obviously did not work for her and she started drinking again once she got out. She is open to add Celexa 10 mg PO Q daily. MSE Appearance: grossly normal. Fair grooming and hygiene, calm, cooperative, engaged in the interview. Good eye contact. Normal psychomotor activity. Mental Status: mental status grossly normal Mood: anxious, shaking Affect: mood-congruent affect Speech and Movement: speech and movement normal. Regular rate, rhythm, volume, and tone. Non pressured. Attitude: cooperative Thought Process: normal; linear, logical, and goal-oriented Thought Content: Denies paranoid or delusional thoughts. Denied hallucinations, no homicidality and no suicidality. Does not appear to be responding to internalstimuli. Insight: fair Judgment: fair Exam Physical Exam Vital Signs: Temp Pulse Resp BP Pulse Ox O2 Del Method 99.4 F H 85 16 127/85 96 Room Air 01/17/24 04:00 01/17/24 04:00 01/17/24 04:00 01/17/24 04:00 01/17/24 04:00 01/17/24 04:00 Objective Labs Labs: Abnormal Labs 01/16/24 05:40 25-OH Vitamin D Total 12.7 L Assessment/Plan Assessment/Plan (1) Bipolar depression: Plan PLAN Patient presents with depression and SI. Will add Celexa 10 mg PO Q daily. Continue home meds and Lamictal 25 mg PO Q daily Discussed risks of SJS and advised patient to stop it if she has any rash. Continue to monitor mental status Monitor suicidal behaviors for safety of self (15-minute face check). Encourage medication adherence. Risks, benefits, and alternatives of treatment explained Recommend? attending groups and psychoeducation for building coping skills. Risks, benefits and indications of medications were discussed with the patient.? Involve friends/family members to coordinate care and ensure appropriate outpatient appointments are scheduled prior to discharge. Documented By: Jack Kwon MD 4 [id number] Signed By: <Electronically signed by Jack Kwon MD> 01/17/[address] [facility] Work Phone: 1([phone]) 434-371610-09-2024 History and physical note Author Jack wright [facility] January 16, 2024 6:36am Note Date/Time January 15, 2024 11 :43am [facility] [address] [place] [address] Psychiatry H&P Signed Patient: Shikha Loera MR#: [id number] : 1985 Acct:[id number] Age/Sex: 38 / F Adm Date: Loc: Room: [address] [place] [address] Type: ADM IN Attending Dr: Jack Kwon MD Copies to: Jack Kwon MD [facility]~ Date of Service: 01/16/2024 HPI History of Present Illness History of present illness: Ms. Loera is a 38 year old female?with a reported history of?bipolar disorder, depression, and alcohol use disorder?who presents for inpatient treatment due to?SI. Reportedly, patient presented to the ER with chief complaint of suicidal ideation. Patient threatened to cut herself. Patient does have guns in the house. Spouse at bedside states patient has been threatening times a week. States patient was recently discharged from alcohol rehab approximately a week ago. Patient states since being discharged she has been drinking. She states she drinks beer and vodka. Patient states today she has been just drinking beer. Patient states her last drink was 3 hours ago. Patient states she has a history of bipolar, hypertension, diabetes, and depression. Patient states she has not been taking any depression medications at home. Patient was personally seen by me on the day of the encounter. I reviewed the history and performed the morrow elements of the assessment. 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 Patient reports that she was really intoxicated when she said she was going to cut herself and that she is depressed but would not put her family through that.Patient reports she has had depression for a while but the bipolar disorder diagnosis was about a year in a half ago. Patient said that she is here because she drinks alcohol every day - about 1 bottle of vodka plus beer. Patient reports her drinking picked up and her life went downhill about 15 years ago when she got because her at the time slept with her best friend. Patient was here at [address] [place] [address] during this time because she attempted suicide then and tried to slit her wrists. Patient shares that she came here from rehab and rehab obviously did not work for her and she started drinking again once she got out. Patient requested medications for her withdrawal symptoms. Patient presents as shakey and nauseous. Patient does report a seizurelast time she went through withdrawal in the hospital. Patient knowledgeable of her own medications and reports she is compliant with Paliperidone, Remeron, andCymbalta. Past psych history: Dx bipolar disorder and depression, alcohol use disorder Past hospitalizations: Previous [address] [place] [address] hospitalization 10-15 years ago for suicide attempt and depression; Patient just came from rehab for alcohol use disorder Past suicide attempts: 10-15 years ago - slit wrists Previous medications: Paliperidone for BPD, Cymbalta for depression, and Remeronfor sleep. Patient reports she used to take Seroquel but it did not work for her. Alcohol and drug use: Alcohol use every day - 1 bottle vodka + beers; reports vaping Living: Lives with , feels safe Employment: unemployed patient reports she sleeps well with Remeron, reports no appetite. Denies hallucinations but reports she does have lucid dreams . Denies SI/HI. Review of Systems Constitutional: +fatigue. Neuro: Denies dizziness/lightheadedness. Denies TBI, seizure, memory loss. Denies numbness/tingling in extremities HEENT: Denies vision/hearing changes. Pulmonary: Denies SOB, dyspnea, cough, wheezing. Cardiac: Denies chest pain/pressure. Denies edema, palpitations. GI: +nausea. Denies abdominal pain, heartburn, N/V. Denies constipation and diarrhea : Denies dysuria, hematuria, polyuria. ? Physical exam General: not in any acute distress Skin: intact HEENT: head atraumatic, face symmetrical. Pulm: ?Breathing normally without excessive effort Cardio: Regular rate and rhythm Abdomen: Normal inspection Musculoskeletal: Moves all extremities, normal strength all extremities. Neuro: Pt alert, oriented x3. Gait normal. ? CNI: Intact, normal olfaction ? CNII: Visual varghese intact ? ? ?CNIII,IV,: EOM intact, no nystagmus. ? ? ?CNV: Sensation intact to light touch. ? ? ?CNVII: Raises eyebrows, smile/frown, puff out cheeks symmetrically. ? ? ?CNVIII: Hearing intact bilaterally. ? ? ?CNIX,X: Voice normal, soft palate elevation normal, symmetrical. ? ? ?CNXI: Shoulder shrug strong, equal bilaterally. ? ? ?CNXII: Tongue protrusion midline MSE Appearance: grossly normal. Fair grooming and hygiene, calm, cooperative, engaged in the interview. Good eye contact. Normal psychomotor activity. Mental Status: mental status grossly normal Mood: anxious, shaking Affect: mood-congruent affect Speech and Movement: speech and movement normal. Regular rate, rhythm, volume, and tone. Non pressured. Attitude: cooperative Thought Process: normal; linear, logical, and goal-oriented Thought Content: Denies paranoid or delusional thoughts. Denied hallucinations, no homicidality and no suicidality. Does not appear to be responding to internalstimuli. Insight: limited , emerging Judgment: limited [facility] Medical History (Updated 01/16/24 @ 06:36 by Jack Kwon MD) Vitamin D deficiency Hx gestational diabetes BMI 21.0-21.9, adult Dietary counseling and surveillance Hyperlipidemia Type 2 diabetes mellitus with hyperglycemia Crohn's disease GERD (gastroesophageal reflux disease) Hemangioma COVID (~01/27/21) High cholesterol Hypothyroid HTN (hypertension) Pancreatitis Surgical History History of hemangioma excision Family History Father Diabetes Myocardial infarction Cancer Grandparent Myocardial infarction Sister Hypertension Father Diabetes Heart disease Cancer Legacy FamHx Problem: Diagnosed with Cancer Family/Other Family history of other condition Legacy FamHx Problem: 1 sister HTN:1 son autisim Sister Hypertension Social History Smoking Status: Current every day smoker Tobacco Type: e-cigarettes Substance Use Type: Alcohol Substance Abuse Comment: SUNDAY APPX 1900 Meds Medications and Allergies Allergies lisinopril Allergy (Unknown, Verified 01/14/24 18:44) Swelling of Lip/Tongue/Throat Home Medications levothyroxine 50 mcg tablet 50 mcg PO DAILY 02/28/21 [History Confirmed 01/15/24] losartan 50 mg tablet 50 mg PO DAILY 07/09/21 [History Confirmed 01/15/24] amlodipine 5 mg tablet 5 mg PO DAILY 06/13/23 [History Confirmed 01/15/24] omeprazole 40 mg capsule,delayed release 40 mg PO DAILY Acid Reflux 06/14/23 [History Confirmed 01/15/24] mirtazapine 7.5 mg tablet 7.5 mg PO HS 01/15/24 [History Confirmed 01/15/24] naltrexone 50 mg tablet 50 mg PO DAILY 01/15/24 [History Confirmed 01/15/24] paliperidone 6 mg tablet,extended release 24 hr 6 mg PO DAILY 01/15/24 [History Confirmed 01/15/24] Exam Physical Exam Vital Signs: Temp Pulse Resp BP Pulse Ox O2 Del Method 98.6 F 73 18 148/108 H 95 Room Air 01/15/24 08:59 01/15/24 10:17 01/15/24 10:17 01/15/24 10:17 01/15/24 10:17 01/15/24 10:17 Results - Psychiatry Labs 01/14/24 19:10 01/14/24 19:10 Psychiatry Labs: 01/14/24 19:10 RBC 4.73 Hgb 15.1 Hct 43.3 MCV 91.4 MCH 32.0 MCHC 35.0 RDW 13.5 Plt Count 192 MPV 7.5 Sodium 143 Potassium 3.6 Chloride 102 Carbon Dioxide 23.5 Anion Gap 21.1 H BUN 3 L Creatinine 0.58 L Calcium 9.2 Total Bilirubin 0.6 AST 127 H ALT 80 H Alkaline Phosphatase 115 H Total Protein 8.2 Albumin 4.6 Urine Color Light-yellow Urine Appearance Cloudy A Urine pH 5.5 Ur Specific [place] 1.005 Urine Protein 20 H Urine Glucose (UA) Normal Urine Ketones Negative Urine Occult Blood Negative Urine Nitrite Negative Ur Leukocyte Esterase Negative Urine RBC 1-2 Urine WBC 1-2 Assessment/Plan (1) Bipolar depression: Plan PLAN Patient presents with depression and SI Continue home meds and start Lamictal 25 mg PO Q daily Discussed risks of SJS and advised patient to stop it if she has any rash. Continue to monitor mental status Monitor suicidal behaviors for safety of self (15-minute face check). Encourage medication adherence. Risks, benefits, and alternatives of treatment explained Recommend? attending groups and psychoeducation for building coping skills. Risks, benefits and indications of medications were discussed with the patient.? Involve friends/family members to coordinate care and ensure appropriate outpatient appointments are scheduled prior to discharge. Documented By: Jack Kwon MD 4 [id number] Signed By: <Electronically signed by Jack Kwon MD> 01/16/[address] [facility] Work Phone: 1(577) 974-342312-19-2023 Evaluation note* Encounter Date Diagnosis Assessment Notes Treatment Notes Treatment Clinical Notes Mar, Type 2 diabetes mellitus with [...] diabetes, progressive beta cell , concepts of basal/bolus/correct dario insulin requirements. b. Nutrition: Concepts of healthy [...] complexity reviewed e. Patient questions addressed 2. Activity/exercise: Encouraged to start any form of physical [...] issues. 6. Prescriptions: New patient 03-27-2023 uses [facility]. Mar, Vitamin D deficiency (ICD-10 - E55.9) Mar, Hyperlipidemia, unspecified hyperlipidemia type (ICD-10 - E78.5) Mar, Hypertension, unspecified type (ICD-10 - I10) Mar, Dietary counseling and surveillance (ICD-10 - Z71.3) Mar, BMI 21.0-21.9, adult (ICD-10 - Z68.21) Mar, History of gestational diabetes (ICD-10 - Z86.32) [employer] Other 10-27-2022 Hospital Discharge instructions Patient Education 02/02/2022 00:18:28 Pyelonephritis, Adult, [id number] Pyelonephritis, Adult Pyelonephritis is an infection that [...] not stop taking the antibiotic even if youstart to feel better. Take [id number] and prescription medicines only as told by your doctor. General instructions Drink enough fluid to keep your pee pale yellow. Avoid caffeine, tea, and carbonated drinks. Pee (urinate) often. Avoid holding in pee for long periods of time. Pee before and after sex. After pooping (having a bowel movement), women should wipe from front to back. Use each tissue onlyonce. Keep all follow-up visits as told by [...] not stop taking the antibiotic even if youstart to feel better. Drink enough fluid to keep your pee pale yellow. This information is not intended to replace advice given to you by your health care provider. Make sure you discuss any questions you have with your health care provider. Document Released: 05/03/2005 Document Revised: 01/28/2019 Document Reviewed: 01/28/2019 [employer] Patient Education 2020 [employer]. Follow Up Care 02/01/2022 21:25:38 With:AVERY BLANCA Address: [address] [place] [address] [address] [place] [address]- [phone] Business (1) When:02/05/2022 Comments:You can use the pain medication every 6 hours as needed for pain, take the Bactrim twice daily until you have completed the course. Please follow-up with your primary care doctor the next 2 to 3 days. Please return to the ED for any new or worsening symptoms. [facility]10-26-2022 Evaluation + Plan noteExtracted from: Title:ED Note Author:Judith Mock DO Date [...] With Cult Reflex Urine Culture US Gallbladder [facility] for [facility] Narrative* Chief Complaint Referral Echd Detox DM [facility] Work Phone: Evaluation noteNo assessment information available [facility] Work Phone: Evaluation note* Diagnosis Onset Date Resolution Status Alcohol use disorder acute BMI 21.0-21.9, adult acute Controlled diabetes mellitus with hyperglycemia acute Dietary counseling and surveillance acute Hyperlipidemia acute Vitamin D deficiency acute [facility] Work Phone: Evaluation note* Diagnosis Onset Date Resolution Status Alcohol intoxication acute Suicidal ideations acute [facility] Work Phone: Evaluation note* Diagnosis Onset Date Resolution Status Alcohol intoxication acute Alcohol use disorder acute Alcohol withdrawal acute Bipolar depression acute HTN (hypertension) acute Hyperlipidemia acute Hypokalemia acute Hypomagnesemia acute Hypothyroid acute Suicidal ideations acute Vitamin D deficiency acute [facility] Work Phone: History general Narrative - Reported* Type Description Date Medical History Hx of abnormal pap Medical History Hx of pancreatitis Medical History type II diabetes Medical History bipolar Surgical History hemangioma removed from lip at age 4 Hospitalization History See Above Hospitalization History pancreatitis [facility] Other Hospital course Narrative [facility] available for this [facility] Chief Complaint and Reason for Visit Chief Complaint N/V G62.9 Chief Complaint N/V G62.9 gbs Chief Complaint N/V G62.9 gbs G62.9 R20.0 R26.89 Chief Complaint N/V G62.9 gbs G62.9 R20.0 R26.89 G62.9 R20.0 R26.89 Chief Complaint NO METER Benign essential hypertension Reason for Visit Alcohol use disorder BMI 21.0-21.9, adult Controlled diabetes mellitus with hyperglycemia Dietary counseling and surveillance Hyperlipidemia Vitamin D deficiency Chief Complaint BH suicidal Reason for Visit Alcohol intoxication Suicidal ideations Chief Complaint BH suicidal suicidal Reason for Visit Alcohol intoxication Alcohol use disorder Alcohol withdrawal Bipolar depression HTN (hypertension) Hyperlipidemia Hypokalemia Hypomagnesemia Hypothyroid Suicidal ideations Vitamin D deficiency Family History Relationship Condition Age at Onset Recorded Date/T [...] of other condition Unknow n Advance Directives Advance Directive Response Recorded Date/ Time Advance Directives No July 30 8:04am Advance Directive Response Recorded Date/ Time Advance Directives No July 30 7:04am Summary Purpose Additional Source Comments Care Teams (unrecognized sec tion and content) Team Status: Inactive Member Role Status Dates Avery Blanca APRN PAYER SPECIALIST-C Attending Provider Active Team Status: Inactive Member Role Status Dates Services [facility] Primary Care Provider Active Hal Orozco DO Emergency Provider Active Team Status: Inactive Member Role Status Dates Delfino Reese MD Attending Provider Active Yeyo Mcneill , PAYER SPECIALIST-C Primary Care Provider Active Team Status: Active Member Role Status Dates Yeyo Mcneill , PAYER SPECIALIST-C Primary Care Provider Active Team Status: Inactive Member Role Status Dates Yeyo Mcneill , PAYER SPECIALIST-C Primary Care Provider Active Delfino Reese MD Attending Provider Active Team Status: Active Member Role Status Dates Avery Blanca APRN PAYER SPECIALIST-C Primary Care Provider Act dario Team Status: Inactive Member Role Status Dates Becky Gambino APRN Attending Provider Active Start: March 27, 2023 End: March 27, 2023 Team Status: Inactive Member Role Status Dates Becky Gambino APRN Attending Provider Active Start: March 27, 2023 End: March 27, 2023 Avery Blanca APRN PAYER SPECIALIST-C Primary Care Provider Act dario Start: March 27, 2023 End: March 27, 2023 Team Status: Inactive Member Role Status Dates Avery Blanca APRN PAYER SPECIALIST-C Primary Care Provider Act dario Start: June 14, 2023 End: June 14, 2023 Becky Gambino APRN Attending Provider Active Start: June 14, 2023 End: June 14, 2023 Team Status: Inactive Member Role Status Dates Avery Blanca APRN PAYER SPECIALIST-C Attending Provider Active Start: August 14, 2023 End: August 14, 2023 Team Status: Active Member Role Status [facility] Primary Care Provider Active Team Status: Active Member Role Status Dates Avery Blanca APRN PAYER SPECIALIST-C Primary Care Provider Act dario Start: November 22, 2023 Jack Kwon MD Attending Provider Active Start: November 22, 2023 Team Status: Active Member Role Status [facility] Primary Care Provider Active Start: November 22, 2023 Ryan Couch DO Attending Provider Active Sta rt: November 22, 2023 Team Status: Active Member Role Status [facility] Primary Care Provider Active Start: November 26, 2023 End: December 01, 2023 Ryan Couch DO Attending Provider Active Sta rt: November 26, 2023 End: December 01, 2023 Caryn Huston DO Referring Provider Active Star t: November 26, 2023 End: December 01, 2023 Team Status: Active Member Role Status [facility] Primary Care Provider Active Start: January 15, 2024 Libby Kerr APRN Emergency Provider Active Start: January 15, 2024 Jack Kwon MD Admit Provide r, Attending Provider Active Start: January 15, 2024 Team Status: Inactive Member Role Status Dates Services [facility] Primary Care Provider Active Start: January 15, 2024 End: January 22, 2024 Libby Kerr APRN Emergency Provider Active Start: January 15, 2024 End: January 22, 2024 Jack Kwon MD Admit Provide r, Attending Provider Active Start: January 15, 2024 End: January 22, 2024 Mendy Deal , EFFIE Other Provider Active Star t: January 15, 2024 End: January 22, 2024 Nancy Romero RN Other Provider Active Start : January 15, 2024 End: January 22, 2024 Virginia Thornton RN Other Provider Active Star t: January 15, 2024 End: January 22, 2024 Marcela Tom RN Other Provider Active Start: O ctober 2023 End: January 22, 2024 Estella Lieberman , EFFIE Other Provider Active Start: Oc tober 2023 End: January 22, 2024 Chandan Whipple DO Other Provider Active Start : January 15, 2024 End: January 22, 2024 Cisco Calderon MD Other Provider Active Start : January 15, 2024 End: January 22, 2024 Jaime Alcocer DO Other Provider Active Start: January 15, 2024 End: January 22, 2024 Srini Chavez MD Other Provider Active Start: January 15, 2024 End: January 22, 2024 Ericka Dunn MD Other Provider Active Start : January 15, 2024 End: January 22, 2024 Cm Escalona MD Other Provider Active Start: O ctober 2023 End: January 22, 2024 Helen Bailon APRN Other Provider Active Start: January 15, 2024 End: January 22, 2024 Giuliano Serna MD Other Provider Active Start: January 15, 2024 End: January 22, 2024 Albin Smith MD Other Provider Active Start: O ctober 2023 End: January 22, 2024 Afshin Flores MD Other Provider Active Start: January 15, 2024 End: January 22, 2024 Viktoria Padilla MD Other Provider Active Start: January 15, 2024 End: January 22, 2024 Hari Nixon DO Other Provider Active Start: January 15, 2024 End: January 22, 2024 Sarah Mahajan MD Other Provider Active Start: Oc 2023 End: January 22, 2024 Michael Avila MD Other Provider Active Start: Jan End: January 22, 2024 Nga Edwards , HUDSON-C Other Provider Active St art: January 15, 2024 End: January 22, 2024 Johnie Poe APRN Other Provider Active Star t: January 15, 2024 End: January 22, 2024 Nahum Soni MD Other Provider Active Start: January 15, 2024 End: January 22, 2024 Scott Lunsford MD Other Provider Active Start: 2023 End: January 22, 2024 Ruy Juarez MD Other Provider Active Start: Jan End: January 22, 2024 Maria Isabel Marte MD Other Provider Active Star t: January 15, 2024 End: January 22, 2024 Ta Bonner MD Other Provider Active Start: O ctober 2023 End: January 22, 2024 Mignon Lucero DO Other Provider Active Start: 2023 End: January 22, 2024 Huy Escobar DO Other Provider Active Start : January 15, 2024 End: January 22, 2024 Almaz Good APRN Other Provider Active Start: January 15, 2024 End: January 22, 2024 Diego Gregg DO Other Provider Active Start: January 15, 2024 End: January 22, 2024 Carlos Johnson MD Other Provider Active Sta rt: January 15, 2024 End: January 22, 2024 Paulette Mcguire APRN Other Provider Active Start : January 15, 2024 End: January 22, 2024 Martha Woods APRN Other Provider Active St art: January 15, 2024 End: January 22, 2024 Ashlee Osuna MD Other Provider Active Start: O ctober 2023 End: January 22, 2024 Dariel Spence MD Other Provider Active S tart: January 15, 2024 End: January 22, 2024 Ermias Dangelo , DO Other Provider Active Star t: January 15, 2024 End: January 22, 2024 Gladys Matthews , DO Other Provider Active Start: January 15, 2024 End: January 22, 2024 Chato Juarez MD Other Provider Active Start: January 15, 2024 End: January 22, 2024 Delma Kuo MD Other Provider Active Start: January 15, 2024 End: January 22, 2024 Sunshine Azar APRN Other Provider Active Star t: January 15, 2024 End: January 22, 2024 Gurvinder Sosa MD Other Provider Active Start: O ctober 2023 End: January 22, 2024 Sajan Knapp MD Other Provider Active Start: Oc tober 2023 End: January 22, 2024 Carlota Carr RN Other Provider Active Start: O ctober 2023 End: January 22, 2024 Team Status: Active Member Role Status Dates Services [facility] Primary Care Provider Active Start: January 16, 2024 Libby Kerr APRN Emergency Provider Active Start: January 16, 2024 Jack Kwon MD Admit Provide r, Attending Provider, Other Provider Active Start: January 16, 2024 Goals (unrecognized section and content) Goals may [...] DATE CREATED AUTHOR AUTHOR'S ORGANIZ ATION 01/20/2023 [facility] DATE CREATED AUTHOR AUTHOR'S ORGANIZ ATION 03/07/2024 [facility] REASON FOR VISIT (unrecogniz ed [...] BE BASED ON THE PRIMARY CLINICAL RECORDS. [facility] [employer] [facility]. provides no warranty or guarantee of the accuracy or completeness of information in this document.
[2024-03-28] MEDS: LORAZEPAM 1 MG TABLET PO (17:47)
[2024-03-28] MEDS: LACTATED RINGER'S SOLUTION 1,000 ML 125 ML IV (17:47)
[2024-03-28] MEDS: CLONIDINE HCL 0.1 MG TABLET PO (20:26)
[2024-03-28] MEDS: LORAZEPAM 2 MG/ML VIAL IV (20:27)
[2024-03-28] MEDS: PROMETHAZINE HCL 25 MG in 0.9 % SODIUM CHLORIDE 50 ML 204 MG IV (20:33)
[2024-03-28 22:14] LABS: Glucometer 230 mg/dL (74-106)
[2024-03-28] MEDS: INSULIN ASPART 300 UNIT/3 ML PEN SUBQ (22:16)
[2024-03-29] VITALS (77 sets, daily range): BP systolic 113–133; BP diastolic 63–98; PULSE 69–115; TEMP 36.5–36.8; O2SAT 71–109
[2024-03-29] MEDS: PROCHLORPERAZINE 10 MG/2 ML VIAL IV ×2 (00:08→03:02)
[2024-03-29] MEDS: LORAZEPAM 2 MG/ML VIAL IV (00:29)
[2024-03-29] MEDS: LACTATED RINGER'S SOLUTION 1,000 ML 125 ML IV ×3 (01:45→16:49)
[2024-03-29] MEDS: LORAZEPAM 1 MG TABLET PO ×5 (01:46→21:31)
[2024-03-29] MEDS: PROMETHAZINE HCL 25 MG in 0.9 % SODIUM CHLORIDE 50 ML 204 MG IV ×3 (05:35→23:49)
[2024-03-29 06:51] LABS: Alanine Aminotransferase 80 U/L (14-59); Albumin Globulin Ratio 1.1; Albumin Level 3.2 g/dL (3.4-5.0); Alkaline Phosphatase 79 U/L (46-116); Anion Gap 22.4; Aspartate Amino Transferase 119 U/L (15-37); BUN Creatinine Ratio 10.3; Bilirubin Total 1.1 mg/dL (0.2-1.0); Calcium 7.7 mg/dL (8.5-10.1); Carbon Dioxide 21.3 mmol/L (21.0-32.0); Chloride 98 mmol/L (98-107); Estimated GFR (African America >60 (>=60 mL/min/1.73m^2); Estimated GFR (Non-African Ame >60 (>=60 mL/min/1.73m^2); Glucose 166 mg/dL (74-106); Magnesium 1.4 mg/dL (1.8-2.4); Potassium 3.7 mmol/L (3.5-5.1); Sodium 138 mmol/L (136-145); Total Protein 6.2 g/dL (6.4-8.2)
[2024-03-29 07:02] LABS: Basophils Absolute Auto 0.1 10^3/uL (0.0-0.1); Basophils Percent Auto 0.9 % (0.2-2.0); Eosinophils Percent Auto 0.6 % (0.9-7.0); Hematocrit 38.7 % (36.0-48.0); Hemoglobin 13.3 g/dL (12.0-16.0); Immature Granulocytes Abs Auto 0.01 10^3/uL (0.00-0.03); Immature Granulocytes Pct Auto 0.2 % (0.0-0.5); Lymphocytes Absolute Auto 0.9 10^3/uL (1.2-3.8); Lymphocytes Percent Auto 16.9 % (20.5-60.0); Mean Corpuscular HGB Conc 34.4 g/dL (29.9-35.2); Mean Corpuscular Hemoglobin 31.4 pg (26.7-34.0); Mean Corpuscular Volume 91.3 fL (81.0-99.0); Mean Platelet Volume 10.5 fL (9.5-13.5); Monocytes Absolute Auto 0.6 10^3/uL (0.3-0.8); Monocytes Percent Auto 10.3 % (1.7-12.0); Neutrophils Absolute Auto 3.8 10^3/uL (1.4-6.5); Neutrophils Percent Auto 71.1 % (43.0-75.0); Red Blood Count 4.24 10^6/uL (4.20-5.40); Red Cell Distribution Width 13.1 % (11.0-15.0); White Blood Count 5.3 10^3/uL (4.0-11.0)
[2024-03-29 07:06] LABS: Platelet Count 101 10^3/uL (150-450)
[2024-03-29 09:23] LABS: Glucometer 151 mg/dL (74-106)
[2024-03-29] MEDS: MULTIVITAMIN TABLET 1 TAB PO (09:23)
[2024-03-29] MEDS: THIAMINE MONONITRATE (VIT B1) 100 MG TABLET PO (09:23)
[2024-03-29 10:01] LABS: HCG Qualitative Urine* NEGATIVE (NEGATIVE); Internal Control Within Normal Limits
[2024-03-29 10:17] LABS: Ketones Urine MODERATE mg/dL (NEGATIVE)
[2024-03-29 10:38] LABS: Amphetamine Screen Urine NEGATIVE (NEGATIVE); Barbiturates Screen Urine NEGATIVE (NEGATIVE); Benzodiazepines Screen Urine POSITIVE (NEGATIVE); Buprenorphine Screen Urine NEGATIVE (NEGATIVE); Cannabinoid Screen Urine POSITIVE (NEGATIVE); Cocaine Screen Urine NEGATIVE (NEGATIVE); Methadone Screen Urine NEGATIVE (NEGATIVE); Methamphetamines Screen Urine NEGATIVE (NEGATIVE); Opiate Screen Urine NEGATIVE (NEGATIVE); Oxycodone Screen Urine NEGATIVE (NEGATIVE); Phencyclidine Screen Urine NEGATIVE (NEGATIVE); Tricyclic Antidepressant Urine NEGATIVE (NEGATIVE)
--- NOTE | 2024-03-29 11:11 | P.IMPN_ITS ---
Progress Note: A&P Assessment and Plan (1) Alcohol withdrawal syndrome: Assessment and Plan: Still in alcohol withdrawal. Was experiencing hallucinations last night. CIWA at the time of my evaluation was about 11, but she had received IV ativan in the morning. C/w PO ativan q4. C/w clonidine and Ativan as needed. Monitor closely as prior hx of DTs and seizures. Qualifiers: Complication of substance-induced condition: uncomplicated Qualified Code(s): F10.930 - Alcohol use, unspecified with withdrawal, uncomplicated (2) Pancreatitis: Assessment and Plan: Pain resolved. Still nauseous. C/w promethazine as needed. C/w Supportive care. Qualifiers: Chronicity: acute Pancreatitis type: alcohol induced Acute pancreatitis complication: unspecified Qualified Code(s): K85.20 - Alcohol induced acute pancreatitis without necrosis or infection (3) Alcoholic hepatitis: Assessment and Plan: Liver enzymes improving. Monitor. Qualifiers: Ascites presence: without ascites Qualified Code(s): K70.10 - Alcoholic hepatitis without ascites (4) Bipolar 1 disorder: Assessment and Plan: Resumed mirtazapine and Seroquel. (5) HTN (hypertension): Assessment and Plan: BP stable. Hold amlodipine for now. Qualifiers: Hypertension type: primary hypertension Qualified Code(s): I10 - Essential (primary) hypertension (6) Hypothyroidism: Assessment and Plan: Resumed levothyroxine. Qualifiers: Hypothyroidism type: unspecified Qualified Code(s): E03.9 - Hypothyroidism, unspecified Internal Medicine - PN: Subj Subjective Interval history: Seen and examined. Diaphoretic and drowsy. Reports cloudy sensorium, headache and nausea. Had received IV ativan early in the morning. Exam Constitutional Vital Signs, click to edit/add: Last Vital Signs Temp 98.2 F 03/29/24 08:00 Pulse 100 H 03/29/24 09:54 Resp 16 03/29/24 08:00 BP 120/76 03/29/24 08:00 Pulse Ox 94 L 03/29/24 08:00 O2 Del Method Room Air 03/28/24 19:57 Documenting provider has reviewed patient's vital signs: yes Common normals: oriented x3 General appearance: disheveled, lethargic and diaphoretic Respiratory Common normals: normal respiratory effort and clear to auscultation bilaterally Effort & inspection: able to speak in complete sentences Auscultation: clear to auscultation bilaterally Cardio Common normals: regular rate, S1 normal heart sound and S2 normal heart sound Rate: regular rate Heart sounds: S1 normal and S2 normal GI Common normals: Normal to inspection, nondistended, normoactive bowel sounds present, soft to palpation, non-tender and no hepatosplenomegaly Palpation: soft and no hepatosplenomegaly Extremity Common normals: no clubbing, cyanosis or edema Neuro Common normals: oriented x3, moves all extremities and no focal motor deficits Psych Common normals: mental status grossly normal, denies hallucinations, denies homicidal ideation and denies suicidal ideation Internal Medicine - PN: Obj Da Labs Labs: Laboratory Results - last 24 hr 03/28/24 03/28/24 03/28/24 13:37 13:55 13:59 WBC 6.9 RBC 5.17 Hgb 16.6 H Hct 49.3 H MCV 95.4 MCH 32.1 MCHC 33.7 RDW 13.1 Plt Count 200 MPV 10.1 Neut % (Auto) Lymph % (Auto) [place] % (Auto) Eos % (Auto) Baso % (Auto) Neut # (Auto) Lymph # (Auto) [place] # (Auto) Eos # (Auto) Baso # (Auto) Abs Immat Gran (auto) Seg Neuts % (Manual) 84.0 H Lymphocytes % (Manual) 8.0 L Monocytes % (Manual) 6.0 Eosinophils % (Manual) 0.0 L Basophils % (Manual) 2.0 Imm/Tot Granulo (auto) Neutrophils # (Manual) 5.79 Lymphocytes # (Manual) 0.55 L Monocytes # (Manual) 0.41 Eosinophils # (Manual) 0.00 Basophils # (Manual) 0.13 H PT 11.3 INR 1.07 Sodium 136 Potassium 4.0 Chloride 93 L Carbon Dioxide 11.8 L Anion Gap 35.2 BUN 15.0 Creatinine 1.07 H Est GFR ( Amer) >60 Est GFR (Non-Af Amer) 57 L BUN/Creatinine Ratio 14.0 Glucose 92 Calcium 8.6 Magnesium 1.7 L Total Bilirubin 1.2 H AST 174 H ALT 112 H Alkaline Phosphatase 120 H Troponin I High Sens 6.5 Total Protein 8.2 Albumin 4.1 Globulin 4.1 Albumin/Globulin Ratio 1.0 Lipase 101.0 H TSH Urine Ketones Urine HCG, Qual Urine Opiates Screen Ur Buprenorphine Scrn Ur Oxycodone Screen Urine Methadone Screen Ur Barbiturates Screen U Tricyclic Antidepress Ur Phencyclidine Scrn Ur Amphetamines Screen U Methamphetamines Scrn U Benzodiazepines Scrn Urine Cocaine Screen U Cannabinoids Screen Ethanol Quant 440 Acetone, Qual Small A POC Glucose 92 03/28/24 03/29/24 03/29/24 22:12 05:42 09:22 WBC 5.3 RBC 4.24 Hgb 13.3 Hct 38.7 MCV 91.3 MCH 31.4 MCHC 34.4 RDW 13.1 Plt Count 101 L MPV 10.5 Neut % (Auto) 71.1 Lymph % (Auto) 16.9 L [place] % (Auto) 10.3 Eos % (Auto) 0.6 L Baso % (Auto) 0.9 Neut # (Auto) 3.8 Lymph # (Auto) 0.9 L [place] # (Auto) 0.6 Eos # (Auto) 0.0 Baso # (Auto) 0.1 Abs Immat Gran (auto) 0.01 Seg Neuts % (Manual) Lymphocytes % (Manual) Monocytes % (Manual) Eosinophils % (Manual) Basophils % (Manual) Imm/Tot Granulo (auto) 0.2 Neutrophils # (Manual) Lymphocytes # (Manual) Monocytes # (Manual) Eosinophils # (Manual) Basophils # (Manual) PT INR Sodium 138 Potassium 3.7 Chloride 98 Carbon Dioxide 21.3 Anion Gap 22.4 BUN 8.0 Creatinine 0.78 Est GFR ( Amer) >60 Est GFR (Non-Af Amer) >60 BUN/Creatinine Ratio 10.3 Glucose 166 H Calcium 7.7 L Magnesium 1.4 L Total Bilirubin 1.1 H AST 119 H ALT 80 H Alkaline Phosphatase 79 Troponin I High Sens Total Protein 6.2 L Albumin 3.2 L Globulin 3.0 Albumin/Globulin Ratio 1.1 Lipase TSH 2.390 Urine Ketones Urine HCG, Qual Urine Opiates Screen Ur Buprenorphine Scrn Ur Oxycodone Screen Urine Methadone Screen Ur Barbiturates Screen U Tricyclic Antidepress Ur Phencyclidine Scrn Ur Amphetamines Screen U Methamphetamines Scrn U Benzodiazepines Scrn Urine Cocaine Screen U Cannabinoids Screen Ethanol Quant Acetone, Qual POC Glucose 230 H 151 H 03/29/24 09:45 WBC RBC Hgb Hct MCV MCH MCHC RDW Plt Count MPV Neut % (Auto) Lymph % (Auto) [place] % (Auto) Eos % (Auto) Baso % (Auto) Neut # (Auto) Lymph # (Auto) [place] # (Auto) Eos # (Auto) Baso # (Auto) Abs Immat Gran (auto) Seg Neuts % (Manual) Lymphocytes % (Manual) Monocytes % (Manual) Eosinophils % (Manual) Basophils % (Manual) Imm/Tot Granulo (auto) Neutrophils # (Manual) Lymphocytes # (Manual) Monocytes # (Manual) Eosinophils # (Manual) Basophils # (Manual) PT INR Sodium Potassium Chloride Carbon Dioxide Anion Gap BUN Creatinine Est GFR ( Amer) Est GFR (Non-Af Amer) BUN/Creatinine Ratio Glucose Calcium Magnesium Total Bilirubin AST ALT Alkaline Phosphatase Troponin I High Sens Total Protein Albumin Globulin Albumin/Globulin Ratio Lipase TSH Urine Ketones Moderate Urine HCG, Qual Negative Urine Opiates Screen Negative Ur Buprenorphine Scrn Negative Ur Oxycodone Screen Negative Urine Methadone Screen Negative Ur Barbiturates Screen Negative U Tricyclic Antidepress Negative Ur Phencyclidine Scrn Negative Ur Amphetamines Screen Negative U Methamphetamines Scrn Negative U Benzodiazepines Scrn Positive A Urine Cocaine Screen Negative U Cannabinoids Screen Positive A Ethanol Quant Acetone, Qual POC Glucose
[2024-03-29] MEDS: MAGNESIUM SULFATE IN WATER 2 GM/50 ML PREMIX IV (11:41)
[2024-03-29] MEDS: LORAZEPAM 2 MG/ML VIAL 1 MG IV ×2 (16:47→23:50)
[2024-03-29 16:50] LABS: Glucometer 99 mg/dL (74-106)
[2024-03-29] MEDS: CLONIDINE HCL 0.1 MG TABLET PO (18:17)
[2024-03-29] MEDS: QUETIAPINE FUMARATE 25 MG TABLET PO (21:31)
[2024-03-29] MEDS: MIRTAZAPINE 15 MG TABLET PO (21:31)
[2024-03-30] VITALS (63 sets, daily range): BP systolic 114–150; BP diastolic 73–96; PULSE 56–130; TEMP 36.2–36.9; O2SAT 62–99
[2024-03-30] MEDS: LACTATED RINGER'S SOLUTION 1,000 ML 125 ML IV (01:00)
[2024-03-30] MEDS: LORAZEPAM 1 MG TABLET PO ×6 (02:14→21:32)
[2024-03-30] MEDS: LORAZEPAM 2 MG/ML VIAL 1 MG IV (03:18)
[2024-03-30] MEDS: LEVOTHYROXINE SODIUM 25 MCG TABLET 50 MCG PO (05:38)
[2024-03-30] MEDS: PROMETHAZINE HCL 25 MG in 0.9 % SODIUM CHLORIDE 50 ML 204 MG IV ×2 (05:41→19:28)
[2024-03-30 06:38] LABS: Basophils Absolute Auto 0.1 10^3/uL (0.0-0.1); Basophils Percent Auto 2.2 % (0.2-2.0); Eosinophils Absolute Auto 0.1 10^3/uL (0.0-0.7); Eosinophils Percent Auto 1.2 % (0.9-7.0); Hematocrit 33.8 % (36.0-48.0); Hemoglobin 11.7 g/dL (12.0-16.0); Immature Granulocytes Abs Auto 0.02 10^3/uL (0.00-0.03); Immature Granulocytes Pct Auto 0.5 % (0.0-0.5); Lymphocytes Absolute Auto 1.6 10^3/uL (1.2-3.8); Mean Corpuscular HGB Conc 34.6 g/dL (29.9-35.2); Mean Corpuscular Hemoglobin 31.6 pg (26.7-34.0); Mean Corpuscular Volume 91.4 fL (81.0-99.0); Mean Platelet Volume 10.9 fL (9.5-13.5); Monocytes Absolute Auto 0.5 10^3/uL (0.3-0.8); Monocytes Percent Auto 11.4 % (1.7-12.0); Neutrophils Absolute Auto 1.8 10^3/uL (1.4-6.5); Neutrophils Percent Auto 44.7 % (43.0-75.0); Platelet Count 75 10^3/uL (150-450); Red Cell Distribution Width 13.1 % (11.0-15.0)
[2024-03-30 06:56] LABS: Alanine Aminotransferase 59 U/L (14-59); Albumin Level 2.8 g/dL (3.4-5.0); Alkaline Phosphatase 69 U/L (46-116); Aspartate Amino Transferase 85 U/L (15-37); BUN Creatinine Ratio 4.9; Bilirubin Total 1.1 mg/dL (0.2-1.0); Calcium 8.4 mg/dL (8.5-10.1); Chloride 102 mmol/L (98-107); Estimated GFR (African America >60 (>=60 mL/min/1.73m^2); Estimated GFR (Non-African Ame >60 (>=60 mL/min/1.73m^2); Globulin 2.8 g/dL; Glucose 120 mg/dL (74-106); Magnesium 1.6 mg/dL (1.8-2.4); Sodium 142 mmol/L (136-145); Total Protein 5.6 g/dL (6.4-8.2)
[2024-03-30 09:07] LABS: HBsAg Screen Negative (Negative); HCV Ab Non Reactive (Non Reactive); Hep A Ab, IgM Negative (Negative); Hep B Core Ab, IgM Negative (Negative)
[2024-03-30] MEDS: CLONIDINE HCL 0.1 MG TABLET PO ×3 (09:25→20:44)
[2024-03-30] MEDS: THIAMINE MONONITRATE (VIT B1) 100 MG TABLET PO (09:25)
[2024-03-30] MEDS: QUETIAPINE FUMARATE 25 MG TABLET PO ×2 (09:25→20:43)
[2024-03-30] MEDS: POTASSIUM CHLORIDE 10 MEQ ER TABLET 40 MEQ PO (09:25)
[2024-03-30] MEDS: MULTIVITAMIN TABLET 1 TAB PO (09:25)
--- NOTE | 2024-03-30 10:28 | PM.IMPN1 ---
Progress Note: A&P Assessment and Plan (1) Alcohol withdrawal syndrome: Assessment and Plan: Still in active alcohol withdrawal. Mild improvement. Still requiring ativan q4. Last drink Sunday 9 am. C/w PO ativan q4. C/w clonidine and Ativan as needed. Monitor closely as prior hx of DTs and seizures. Qualifiers: Complication of substance-induced condition: uncomplicated Qualified Code(s): F10.930 - Alcohol use, unspecified with withdrawal, uncomplicated (2) Pancreatitis: Assessment and Plan: Pain resolved. Still nauseous and has poor PO intake. C/w promethazine as needed. C/w Supportive care. Qualifiers: Chronicity: acute Pancreatitis type: alcohol induced Acute pancreatitis complication: unspecified Qualified Code(s): K85.20 - Alcohol induced acute pancreatitis without necrosis or infection (3) Alcoholic hepatitis: Assessment and Plan: Liver enzymes improving. Monitor. Qualifiers: Ascites presence: without ascites Qualified Code(s): K70.10 - Alcoholic hepatitis without ascites (4) Bipolar 1 disorder: Assessment and Plan: c/w mirtazapine and Seroquel. (5) HTN (hypertension): Assessment and Plan: BP stable. Hold amlodipine for now. Qualifiers: Hypertension type: primary hypertension Qualified Code(s): I10 - Essential (primary) hypertension (6) Hypothyroidism: Assessment and Plan: Resumed levothyroxine. Qualifiers: Hypothyroidism type: unspecified Qualified Code(s): E03.9 - Hypothyroidism, unspecified Internal Medicine - PN: Subj Subjective Interval history: Seen and examined. Feeling better but still has very poor PO intake. Still struggling with nausea, tremors. Exam Constitutional Vital Signs, click to edit/add: Last Vital Signs Temp 98 F 03/30/24 08:00 Pulse 68 03/30/24 09:55 Resp 18 03/30/24 08:00 BP 126/74 03/30/24 08:00 Pulse Ox 96 03/30/24 08:00 O2 Del Method Room Air 03/29/24 19:11 Documenting provider has reviewed patient's vital signs: yes Common normals: oriented x3 General appearance: disheveled Respiratory Common normals: normal respiratory effort and clear to auscultation bilaterally Effort & inspection: able to speak in complete sentences Auscultation: clear to auscultation bilaterally Cardio Common normals: regular rate, S1 normal heart sound and S2 normal heart sound Rate: regular rate Heart sounds: S1 normal and S2 normal GI Common normals: Normal to inspection, nondistended, normoactive bowel sounds present, soft to palpation, non-tender and no hepatosplenomegaly Palpation: soft and no hepatosplenomegaly Extremity Common normals: no clubbing, cyanosis or edema Neuro Common normals: oriented x3, moves all extremities and no focal motor deficits Psych Common normals: mental status grossly normal, denies hallucinations, denies homicidal ideation and denies suicidal ideation Internal Medicine - PN: Obj Da Labs Labs: Laboratory Results - last 24 hr 03/28/24 03/29/24 03/29/24 17:02 09:45 16:49 WBC RBC Hgb Hct MCV MCH MCHC RDW Plt Count MPV Neut % (Auto) Lymph % (Auto) [place] % (Auto) Eos % (Auto) Baso % (Auto) Neut # (Auto) Lymph # (Auto) [place] # (Auto) Eos # (Auto) Baso # (Auto) Abs Immat Gran (auto) Imm/Tot Granulo (auto) Sodium Potassium Chloride Carbon Dioxide Anion Gap BUN Creatinine Est GFR ( Amer) Est GFR (Non-Af Amer) BUN/Creatinine Ratio Glucose Calcium Magnesium Total Bilirubin AST ALT Alkaline Phosphatase Total Protein Albumin Globulin Albumin/Globulin Ratio Lipase Urine Opiates Screen Negative Ur Buprenorphine Scrn Negative Ur Oxycodone Screen Negative Urine Methadone Screen Negative Ur Barbiturates Screen Negative U Tricyclic Antidepress Negative Ur Phencyclidine Scrn Negative Ur Amphetamines Screen Negative U Methamphetamines Scrn Negative U Benzodiazepines Scrn Positive A Urine Cocaine Screen Negative U Cannabinoids Screen Positive A Hepatitis A IgM Ab Negative Hep Bs Antigen Negative Hep B Core IgM Ab Negative Hepatitis C Antibody Non reactive Hepatitis C Interp Comment POC Glucose 99 03/30/24 05:36 WBC 4.0 RBC 3.70 L Hgb 11.7 L Hct 33.8 L MCV 91.4 MCH 31.6 MCHC 34.6 RDW 13.1 Plt Count 75 L MPV 10.9 Neut % (Auto) 44.7 Lymph % (Auto) 40.0 [place] % (Auto) 11.4 Eos % (Auto) 1.2 Baso % (Auto) 2.2 H Neut # (Auto) 1.8 Lymph # (Auto) 1.6 [place] # (Auto) 0.5 Eos # (Auto) 0.1 Baso # (Auto) 0.1 Abs Immat Gran (auto) 0.02 Imm/Tot Granulo (auto) 0.5 Sodium 142 Potassium 3.0 L Chloride 102 Carbon Dioxide 30.0 Anion Gap 13.0 BUN 4.0 L Creatinine 0.82 Est GFR ( Amer) >60 Est GFR (Non-Af Amer) >60 BUN/Creatinine Ratio 4.9 Glucose 120 H Calcium 8.4 L Magnesium 1.6 L Total Bilirubin 1.1 H AST 85 H ALT 59 Alkaline Phosphatase 69 Total Protein 5.6 L Albumin 2.8 L Globulin 2.8 Albumin/Globulin Ratio 1.0 Lipase 118.0 H Urine Opiates Screen Ur Buprenorphine Scrn Ur Oxycodone Screen Urine Methadone Screen Ur Barbiturates Screen U Tricyclic Antidepress Ur Phencyclidine Scrn Ur Amphetamines Screen U Methamphetamines Scrn U Benzodiazepines Scrn Urine Cocaine Screen U Cannabinoids Screen Hepatitis A IgM Ab Hep Bs Antigen Hep B Core IgM Ab Hepatitis C Antibody Hepatitis C Interp POC Glucose
[2024-03-30] MEDS: GABAPENTIN 100 MG CAPSULE 200 MG PO ×2 (13:43→21:32)
[2024-03-30 17:03] LABS: Glucometer 113 mg/dL (74-106)
[2024-03-30] MEDS: MIRTAZAPINE 15 MG TABLET PO (21:32)
[2024-03-31] VITALS (35 sets, daily range): BP systolic 118–159; BP diastolic 79–108; PULSE 57–98; TEMP 36.5–36.8; O2SAT 62–100
[2024-03-31] MEDS: LORAZEPAM 1 MG TABLET PO ×5 (02:02→21:20)
[2024-03-31] MEDS: CLONIDINE HCL 0.1 MG TABLET PO (03:01)
[2024-03-31 05:49] LABS: Basophils Absolute Auto 0.1 10^3/uL (0.0-0.1); Basophils Percent Auto 2.6 % (0.2-2.0); Eosinophils Absolute Auto 0.1 10^3/uL (0.0-0.7); Eosinophils Percent Auto 2.8 % (0.9-7.0); Hematocrit 38.3 % (36.0-48.0); Hemoglobin 12.9 g/dL (12.0-16.0); Immature Granulocytes Abs Auto 0.01 10^3/uL (0.00-0.03); Immature Granulocytes Pct Auto 0.3 % (0.0-0.5); Lymphocytes Absolute Auto 1.3 10^3/uL (1.2-3.8); Mean Corpuscular HGB Conc 33.7 g/dL (29.9-35.2); Mean Corpuscular Hemoglobin 31.1 pg (26.7-34.0); Mean Corpuscular Volume 92.3 fL (81.0-99.0); Mean Platelet Volume 11.5 fL (9.5-13.5); Monocytes Absolute Auto 0.4 10^3/uL (0.3-0.8); Monocytes Percent Auto 9.2 % (1.7-12.0); Neutrophils Percent Auto 52.1 % (43.0-75.0); Platelet Count 87 10^3/uL (150-450); Red Blood Count 4.15 10^6/uL (4.20-5.40); White Blood Count 3.9 10^3/uL (4.0-11.0)
[2024-03-31] MEDS: LEVOTHYROXINE SODIUM 25 MCG TABLET 50 MCG PO (05:51)
[2024-03-31] MEDS: GABAPENTIN 100 MG CAPSULE 200 MG PO ×3 (05:51→21:20)
[2024-03-31 06:07] LABS: Alanine Aminotransferase 80 U/L (14-59); Albumin Globulin Ratio 1.1; Albumin Level 3.3 g/dL (3.4-5.0); Alkaline Phosphatase 97 U/L (46-116); Anion Gap 12.2; Aspartate Amino Transferase 141 U/L (15-37); BUN Creatinine Ratio 2.9; Bilirubin Total 1.3 mg/dL (0.2-1.0); Calcium 9.4 mg/dL (8.5-10.1); Carbon Dioxide 31.1 mmol/L (21.0-32.0); Chloride 101 mmol/L (98-107); Estimated GFR (African America >60 (>=60 mL/min/1.73m^2); Estimated GFR (Non-African Ame >60 (>=60 mL/min/1.73m^2); Globulin 3.1 g/dL; Glucose 152 mg/dL (74-106); Magnesium 1.3 mg/dL (1.8-2.4); Potassium 3.3 mmol/L (3.5-5.1); Sodium 141 mmol/L (136-145); Total Protein 6.4 g/dL (6.4-8.2)
[2024-03-31] MEDS: MULTIVITAMIN TABLET 1 TAB PO (08:22)
[2024-03-31] MEDS: QUETIAPINE FUMARATE 25 MG TABLET PO ×2 (08:22→21:20)
[2024-03-31] MEDS: THIAMINE MONONITRATE (VIT B1) 100 MG TABLET PO (08:22)
[2024-03-31 08:29] LABS: Glucometer 161 mg/dL (74-106)
--- NOTE | 2024-03-31 09:10 | CT_ITS ---
[address] [address] Patient Name: JENNIFER SPARKS MRN: [facility]:[id number] date: 1985 Sex: F Assigned Patient Location: ICU Current Patient Location: ICU Accession/Order Number: [id number] Exam Date: 03/31/2024 10:39 Report Date: 03/31/2024 11:13 At the request of: SHAIKH JONO Procedure: CT abdomen pelvis wo con EXAMINATION: CT abdomen pelvis wo con HISTORY: Epigastric pain, pancreatitis COMPARISON: 12/15/2022 TECHNIQUE: Axial, Coronal, and Sagittal images were created without IV contrast. Dose reduction techniques were achieved by using automated exposure control and/or adjustment of mA and/or kV according to patient size and/or use of iterative reconstruction technique. FINDINGS: LUNG BASES: No visible pulmonary or pleural disease. LIVER: No enlargement, atrophy, abnormal density, or significant focal lesion. BILIARY: Cholelithiasis without evidence of acute cholecystitis PANCREAS: Diffuse atrophy. Mild peripancreatic mesenteric stranding SPLEEN: No enlargement or focal lesion. ADRENALS: No mass or enlargement. KIDNEYS: No mass, obstruction, or calcification. BOWEL/MESENTERY: Moderate stool in the descending colon. Nonobstructive bowel gas pattern. Normal appendix. AORTA/VASCULAR: No aneurysm or dissection. RETROPERITONEUM: No mass or adenopathy. LYMPH NODES: No adenopathy. URINARY BLADDER: No visible focal wall thickening, lesion, or calculus. Moderate distention PELVIC ORGANS: No visible mass. Pelvic organs appropriate for patient age. Normal position of IUD ABDOMINAL WALL: 2.1 cm cystic lesion ventral abdominal fat axial image 25 BONES: No bony lesion or fracture. OTHER: Negative. CT/CT abdomen pelvis wo con IMPRESSION: Inflammatory changes suggesting acute pancreatitis Electronically authenticated by: TIFFANY GUTIERREZ Date: 03/31/2024 11:13
[2024-03-31] MEDS: POTASSIUM CHLORIDE 10 MEQ ER TABLET 40 MEQ PO (09:32)
[2024-03-31] MEDS: MOXIFLOXACIN HCL 0.5% OP 60 DROP/3 ML BOTTLE OP ×3 (09:32→21:21)
[2024-03-31] MEDS: MAGNESIUM SULFATE IN WATER 2 GM/50 ML PREMIX IV (09:47)
--- NOTE | 2024-03-31 10:15 | PT.DAILY ---
Physical Therapy Daily Note PT Daily Note/Assess Start: 03/31/24 10:04 Freq: Status: Active Protocol: Document 03/31/24 10:04 YAIR (Rec: 03/31/24 10:15 YAIR [id number]) Physical Therapy Daily Note/Assessment Time In/Time Out Time In 09:25 Time Out 09:40 Pain In Pain N/A Pain Out Pain N/A Subjective Subjective Pt supine upon arrival. Agrees to PT. Difficulty keeping eyes open. Reports FOX this morning but does not rate this pain. Therapeutic Exercise Time Therapeutic Exercise 3 Minutes (minutes) Therapeutic Exercise 0 Units Therapeutic Exercise Treatment Therapeutic Exercise Sits EOB to complete bilat LE strengthening ex - Treatment unsupported 10x ea. Therapeutic Activity Time Therapeutic Activity 8 Minutes (minutes) Therapeutic Activity 1 Units Therapeutic Activity Treatment Bed Mobility Ability Modified Independent,Contact Guard Assist Therapeutic Activity Pt performs supine>sit transfer Oswaldo with increased Comments time needed to sit. Pt sits EOB unsupported 3 min to complete seated LE strengthening ex - no LOB but does keep her eyes closed. Sit>stand and amb to sink 10' with CGA/SBA. Static standing balance fair+ with occ need UE support on sink while brushing her teeth. Static standing tolerance 5 min on this date. Pt takes her contacts out without support but this impairs her vision for amb back to bed. Pt becomes unsteady and does require outside assistance to guide her back to bed - CGA. Dynamic standing balance Fair-. Remains sitting EOB upon completion with nursing present. Total Physical Therapy Time Total Therapy 11 Minutes Total Physical 1 Therapy Units Summary Daily Note Summary Oswaldo with transfers as she requires increased time to complete. Fair/Fair- standing dynamic balance on this date after she took her contacts out/impaired vision. Static standing tolerance 5 min on this date - goal is met.
--- NOTE | 2024-03-31 10:54 | PM.IMPN1 ---
Progress Note: A&P Assessment and Plan (1) Alcohol withdrawal syndrome: Assessment and Plan: Improving. D/C IV ativan. Switch scheduled dose Ativan to as needed. C/w clonidine as needed. Monitor closely as prior hx of DTs and seizures. Qualifiers: Complication of substance-induced condition: uncomplicated Qualified Code(s): F10.930 - Alcohol use, unspecified with withdrawal, uncomplicated (2) Pancreatitis: Assessment and Plan: Poor PO intake, mild epigastric tenderness. CT abd as persistent nausea and anorexia. Qualifiers: Chronicity: acute Pancreatitis type: alcohol induced Acute pancreatitis complication: unspecified Qualified Code(s): K85.20 - Alcohol induced acute pancreatitis without necrosis or infection (3) Alcoholic hepatitis: Assessment and Plan: CT abd pelvis ordered as persistent anorexia, nausea. Monitor. Qualifiers: Ascites presence: without ascites Qualified Code(s): K70.10 - Alcoholic hepatitis without ascites (4) Bipolar 1 disorder: Assessment and Plan: c/w mirtazapine and Seroquel. (5) HTN (hypertension): Assessment and Plan: BP stable. Hold amlodipine for now. Qualifiers: Hypertension type: primary hypertension Qualified Code(s): I10 - Essential (primary) hypertension (6) Hypothyroidism: Assessment and Plan: Resumed levothyroxine. Qualifiers: Hypothyroidism type: unspecified Qualified Code(s): E03.9 - Hypothyroidism, unspecified Internal Medicine - PN: Subj Subjective Interval history: Seen and examined. Still nauseous and has poor PO intake. No overnight events. Mild epigastric tenderness Exam Constitutional Vital Signs, click to edit/add: Last Vital Signs Temp 98.1 F 03/31/24 08:00 Pulse 67 03/31/24 08:20 Resp 17 03/31/24 08:20 BP 159/108 H 03/31/24 08:16 Pulse Ox 100 03/31/24 08:16 O2 Del Method Room Air 03/31/24 08:00 Documenting provider has reviewed patient's vital signs: yes Common normals: oriented x3 Eye Conjunctiva: conjunctiva abnormal bilateral conjunctival chemosis, conjunctival injection and discharge Respiratory Common normals: normal respiratory effort and clear to auscultation bilaterally Effort & inspection: able to speak in complete sentences Auscultation: clear to auscultation bilaterally Cardio Common normals: regular rate, S1 normal heart sound and S2 normal heart sound Rate: regular rate Heart sounds: S1 normal and S2 normal GI Common normals: Normal to inspection, nondistended, normoactive bowel sounds present, soft to palpation and no hepatosplenomegaly Palpation: soft, tender Details: epigastric and no hepatosplenomegaly Extremity Common normals: no clubbing, cyanosis or edema Neuro Common normals: oriented x3, moves all extremities and no focal motor deficits Psych Common normals: mental status grossly normal, denies hallucinations, denies homicidal ideation and denies suicidal ideation Internal Medicine - PN: Obj Da Labs Labs: Laboratory Results - last 24 hr 03/30/24 03/31/24 03/31/24 17:02 04:56 08:22 WBC 3.9 L RBC 4.15 L Hgb 12.9 Hct 38.3 MCV 92.3 MCH 31.1 MCHC 33.7 RDW 13.0 Plt Count 87 L MPV 11.5 Neut % (Auto) 52.1 Lymph % (Auto) 33.0 [place] % (Auto) 9.2 Eos % (Auto) 2.8 Baso % (Auto) 2.6 H Neut # (Auto) 2.0 Lymph # (Auto) 1.3 [place] # (Auto) 0.4 Eos # (Auto) 0.1 Baso # (Auto) 0.1 Abs Immat Gran (auto) 0.01 Imm/Tot Granulo (auto) 0.3 Sodium 141 Potassium 3.3 L Chloride 101 Carbon Dioxide 31.1 Anion Gap 12.2 BUN 2.0 L Creatinine 0.68 Est GFR ( Amer) >60 Est GFR (Non-Af Amer) >60 BUN/Creatinine Ratio 2.9 Glucose 152 H Calcium 9.4 Magnesium 1.3 L Total Bilirubin 1.3 H AST 141 H ALT 80 H Alkaline Phosphatase 97 Total Protein 6.4 Albumin 3.3 L Globulin 3.1 Albumin/Globulin Ratio 1.1 Lipase 78.0 H POC Glucose 113 H 161 H
--- NOTE | 2024-03-31 11:29 | CM.NOTE ---
Rounds made with Dr. Cheung, discussed with pt changes in Ativan (making PRN). Pt requesting for discharge, Dr. Cheung discussed with pt about her still requiring IV medications and did not feel she was ready for discharge at this time. Dr. Cheung would change medications to prn and see how pt does today without scheduled Ativan. Pt continues to refuse rehab for addiction issues.
[2024-03-31] MEDS: PROMETHAZINE HCL 25 MG in 0.9 % SODIUM CHLORIDE 50 ML 204 MG IV (12:39)
--- NOTE | 2024-03-31 13:56 | SWNOTE1 ---
SW met with pt to discuss her alcohol intake. Pt initially voiced concerns about being home in time for [place]. Pt does have 5 kids all together, her youngest being 7. SW expressed to pt that it will be beneficial for her to at least stay today and get some rest and to allow herself to get some medical care so she can be present for Cr with her family. SW asked about rehab? Pt did voiced she went to [facility] back a few months ago and expressed that it was terrible. She stated she only saw her business case analyst maybe 1-2 times. They had a lot of group sessions and played games. She stated she would never go back. SW then asked what her plan is to quit drinking? Pt could not really answer. SW expressed that it is important to have a plan and that if she continues to drink it will continue to impact her health. Pt voiced she is going to go to AA. SW asked if she had an AA that she liked? She stated yes. SW encouraged pt to get a sponsor so they can assist in her journey. Pt stated she plans on it. Pt again spoke about her 7 year old son loving [place] and getting home to him. Pt did ask about getting medication for anxiety. Nurse did enter room and nurse to confirm with pt when she last had her medication. SW asked pt about her support system, which she stated is her and her mom and her older kids as well. SW encouraged pt to seek help and to reach out at anytime and SW can provide resources to her. Pt voiced understanding. At this time pt refusing any alcohol rehab. SW to follow as needed.
--- NOTE | 2024-03-31 15:59 | PC.NURSE ---
report called to trey victoria, pt aware of transfer to room 218. taken to room via wheelchair with belongings.
[2024-03-31 16:32] LABS: Glucometer 173 mg/dL (74-106)
[2024-03-31] MEDS: ARTIFICIAL TEARS 300 DROP/15 ML BOTTLE OP (16:32)
[2024-03-31] MEDS: ENOXAPARIN SODIUM 40 MG/0.4 ML SYRINGE SUBQ (16:44)
[2024-03-31] MEDS: MIRTAZAPINE 15 MG TABLET PO (21:20)
[2024-03-31 21:33] LABS: Glucometer 138 mg/dL (74-106)
[2024-04-01 04:00] VITALS: BP 146/86; PULSE 72; TEMP 36.6; O2SAT 98
[2024-04-01] MEDS: GABAPENTIN 100 MG CAPSULE 200 MG PO (05:20)
[2024-04-01] MEDS: MOXIFLOXACIN HCL 0.5% OP 60 DROP/3 ML BOTTLE OP (05:20)
[2024-04-01] MEDS: LORAZEPAM 1 MG TABLET PO ×2 (05:20→09:22)
[2024-04-01] MEDS: LEVOTHYROXINE SODIUM 25 MCG TABLET 50 MCG PO (05:21)
[2024-04-01 05:52] VITALS: O2SAT 97
[2024-04-01 06:25] LABS: Basophils Absolute Auto 0.1 10^3/uL (0.0-0.1); Basophils Percent Auto 2.1 % (0.2-2.0); Eosinophils Absolute Auto 0.1 10^3/uL (0.0-0.7); Eosinophils Percent Auto 3.2 % (0.9-7.0); Hematocrit 41.2 % (36.0-48.0); Hemoglobin 13.8 g/dL (12.0-16.0); Immature Granulocytes Abs Auto 0.01 10^3/uL (0.00-0.03); Immature Granulocytes Pct Auto 0.3 % (0.0-0.5); Lymphocytes Absolute Auto 1.4 10^3/uL (1.2-3.8); Lymphocytes Percent Auto 36.6 % (20.5-60.0); Mean Corpuscular HGB Conc 33.5 g/dL (29.9-35.2); Mean Corpuscular Hemoglobin 31.4 pg (26.7-34.0); Mean Corpuscular Volume 93.6 fL (81.0-99.0); Mean Platelet Volume 11.2 fL (9.5-13.5); Monocytes Absolute Auto 0.4 10^3/uL (0.3-0.8); Monocytes Percent Auto 10.5 % (1.7-12.0); Neutrophils Absolute Auto 1.8 10^3/uL (1.4-6.5); Neutrophils Percent Auto 47.3 % (43.0-75.0); Platelet Count 104 10^3/uL (150-450); Red Cell Distribution Width 12.8 % (11.0-15.0); White Blood Count 3.8 10^3/uL (4.0-11.0)
[2024-04-01 06:46] LABS: Alanine Aminotransferase 135 U/L (14-59); Albumin Globulin Ratio 0.9; Albumin Level 3.4 g/dL (3.4-5.0); Alkaline Phosphatase 139 U/L (46-116); Anion Gap 11.7; Aspartate Amino Transferase 202 U/L (15-37); Bilirubin Total 0.9 mg/dL (0.2-1.0); Calcium 10.1 mg/dL (8.5-10.1); Chloride 102 mmol/L (98-107); Estimated GFR (African America >60 (>=60 mL/min/1.73m^2); Estimated GFR (Non-African Ame >60 (>=60 mL/min/1.73m^2); Globulin 3.7 g/dL; Glucose 112 mg/dL (74-106); Magnesium 1.4 mg/dL (1.8-2.4); Potassium 3.7 mmol/L (3.5-5.1); Sodium 139 mmol/L (136-145); Total Protein 7.1 g/dL (6.4-8.2)
[2024-04-01 07:46] VITALS: BP 150/111; PULSE 71; TEMP 36.8; O2SAT 71; O2SAT 99
[2024-04-01] MEDS: QUETIAPINE FUMARATE 25 MG TABLET PO (09:21)
[2024-04-01] MEDS: THIAMINE MONONITRATE (VIT B1) 100 MG TABLET PO (09:21)
[2024-04-01] MEDS: MULTIVITAMIN TABLET 1 TAB PO (09:22)
--- NOTE | 2024-04-01 09:39 | REH.PTDLY ---
Physical Therapy Daily Note PT Daily Note/Assess Start: 03/31/24 10:04 Freq: Status: Active Protocol: Document 04/01/24 09:13 DELIA (Rec: 04/01/24 09:39 [id number] Physical Therapy Daily Note/Assessment Time In 09:08 Time Out 09:13 Subjective Pt in bed upon arrival. Reports her anxiety is thru the roof right now, hoping to get to go home today. Pt up adlib in room. Therapeutic Activity 5 Minutes (minutes) Therapeutic Activity 0 Units Bed Mobility Ability Independent Chair Transfer Independent Ability Therapeutic Activity Pt is Ind with all transfers. Gait training with no AD Comments Ind for 150 feet with minimal instability noted first 5 feet and then pt is steady remainder. Pt reports she has neuropathy in Adria feet and this is how she always is initially when getting up. Pt states she feels like she is at baseline. Total Therapy 5 Minutes Total Physical 0 Therapy Units Daily Note Summary Pt has met all goals at this time for PT and is at baseline. Pt up adlib in room and hoping to go home today. No complaints of pain at this time. Nursing notified of pt being anxious and EFFIE Perez states she is due for her medicine in about 15 mins.
--- NOTE | 2024-04-01 09:53 | CM.NOTE ---
Rounds made with Dr. Cabrera, pt will discharge to home today. Pt will need to f/u with Josh Esparza and her PCP Yeyo Ernst. Med Surg alumnae secretary to schedule prior to discharge. Dr. Cabrera discussed with pt script for Ativan and need for to monitor medication, pt verbalizes understanding. RN aware of discharge plan.
--- NOTE | 2024-04-01 10:51 | P.DS_ITS ---
DS: Providers Provider Date of admission: 03/28/24 17:05 Primary care physician: Non-Staff Physician, Consults: 03/28/24 16:24 Physical Therapy Eval and Treat Routine Reason for consultation: weakness Has provider been notified: No 03/28/24 16:34 Consult to Hay Farmer Routine Has provider been notified: No Reason for consult:: Drug Abuse DS: Diagnosis Discharge Diagnosis (1) Alcohol withdrawal syndrome: Qualifiers: Complication of substance-induced condition: uncomplicated Qualified Code(s): F10.930 - Alcohol use, unspecified with withdrawal, uncomplicated (2) Pancreatitis: Qualifiers: Chronicity: acute Pancreatitis type: alcohol induced Acute pancreatitis complication: unspecified Qualified Code(s): K85.20 - Alcohol induced acute pancreatitis without necrosis or infection (3) Alcoholic hepatitis: Qualifiers: Ascites presence: without ascites Qualified Code(s): K70.10 - Alcoholic hepatitis without ascites (4) Type 2 diabetes mellitus: Qualifiers: Diabetes mellitus snf insulin use: 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 38 y/o female with a history of alcohol abuse comes to ER with concern of withdrawal. Developed nausea and emesis. Very shaky and jittery. Labs showed elevated lipase and elevated LFTs. Not able to tolerate PO and admitted. Hospital course: Started IV fluids and initially NPO. Monitored labs and slowly improved. Started CIWA protocol with IV ativan. Patient continued to have withdrawal symptoms and very jittery. Started to have hallucinations. GI symptoms improved and able to start liquids. Able to resume home medication including seroquel, gabapentin, and lamictal. Patient stable and ready for discharge. Continue clinidine and ativan PRN for symptoms. Resume home medication as directed. Follow up with psychiatry in 1-2 weeks. Time Spent with Patient Time attestation: Total time spent providing and/or coordinating discharge services: Time spent: greater than 30 minutes Exam Constitutional Vital Signs, click to edit/add: Last Vital Signs Temp 98.3 F 04/01/24 07:46 Pulse 71 04/01/24 07:46 Resp 16 04/01/24 07:46 BP 150/111 H 04/01/24 07:46 Pulse Ox 99 04/01/24 07:46 O2 Del Method Room Air 04/01/24 07:46 Documenting provider has reviewed patient's vital signs: yes Common normals: no apparent distress, oriented x3 and alert HENMT Common normals: normocephalic Eye Common normals: PERRL and EOMs intact bilaterally Respiratory Common normals: normal respiratory effort and clear to auscultation bilaterally Cardio Common normals: regular rate, regular rhythm, no gallops, no murmurs and no rub GI Common normals: Normal to inspection, nondistended, normoactive bowel sounds present and non-tender Extremity Common normals: no pedal edema DS: Data Data Completed and Pending Labs on day of discharge: Labs from last 24 hours 04/01/24 03/31/24 03/31/24 06:10 21:32 16:29 WBC 3.8 L RBC 4.40 Hgb 13.8 Hct 41.2 MCV 93.6 MCH 31.4 MCHC 33.5 RDW 12.8 Plt Count 104 L MPV 11.2 Neut % (Auto) 47.3 Lymph % (Auto) 36.6 [place] % (Auto) 10.5 Eos % (Auto) 3.2 Baso % (Auto) 2.1 H Neut # (Auto) 1.8 Lymph # (Auto) 1.4 [place] # (Auto) 0.4 Eos # (Auto) 0.1 Baso # (Auto) 0.1 Abs Immat Gran (auto) 0.01 Imm/Tot Granulo (auto) 0.3 Sodium 139 Potassium 3.7 Chloride 102 Carbon Dioxide 29.0 Anion Gap 11.7 BUN 6.0 L Creatinine 0.67 Est GFR ( Amer) >60 Est GFR (Non-Af Amer) >60 BUN/Creatinine Ratio 9.0 Glucose 112 H Calcium 10.1 Magnesium 1.4 L Total Bilirubin 0.9 AST 202 H ALT 135 H Alkaline Phosphatase 139 H Total Protein 7.1 Albumin 3.4 Globulin 3.7 Albumin/Globulin Ratio 0.9 POC Glucose 138 H 173 H Discharge Plan Discharge Disposition: Home, Self-Care Condition: Serious Discharge Medications: New clonidine HCl 0.1 mg Tablet 0.1 mg PO Q4H PRN (Reason: Agitation) Qty: 30 0RF lorazepam 1 mg Tablet 1 mg PO Q4H PRN (Reason: Alcohol Withdrawal) 5 Days Qty: 30 0RF Continued levothyroxine 50 mcg tablet 50 mcg PO DAILY Patient Comments: LAST FILLED 12/17/23 quetiapine 25 mg tablet 25 mg PO BID atorvastatin 20 mg tablet 20 mg PO .QHS thiamine HCl (vitamin B1) 100 mg tablet 100 mg PO BID hydroxyzine pamoate 50 mg capsule 50 mg PO Q6H PRN (Reason: anxiety) lamotrigine 25 mg tablet 25 mg PO .QHS amlodipine 10 mg tablet 10 mg PO DAILY mirtazapine 15 mg tablet 15 mg PO .QHS gabapentin 100 mg capsule 200 mg PO TID cholecalciferol (vitamin D3) 125 mcg (5,000 unit) capsule 125 mcg PO DAILY multivitamin with folic acid [Daily-Augustina (with folic acid)] 400 mcg tablet 1 tab PO DAILY Activity: resume usual activities as tolerated Diet: advance to your usual diet Print Language: Occitan Patient Instructions: Abuse of Alcohol (DC), Acute Delirium (DC), Alcohol Withdrawal (DC) Forms: Portal Instructions Follow Up Appointments: @ 9:15am with Nicolasa Blanca [address] [place] [address] *bring insurance and ID* @ 8:30am [facility] [phone]
[2024-04-01 11:11] VITALS: O2SAT 99
--- NOTE | 2024-04-03 13:20 | CM.DCFOLLOWU ---
Person spoke with: patient How are you feeling? feeling well, but came back to ED yesterday as she now has bacterial infection from where the IV port placed. Advised to come back to ED if gets worse How is your pain? just where IV port was Did you understand your discharge instructions?yes Do you have any questions about your discharge instructions?no Were you given any prescriptions at discharge?yes Were you able to get your prescriptions filled?yes Do you understand how to take your medications as ordered? yes Do you have any questions about your follow up appointment and do you plan to keep your follow up appointment? no questions, reviewed follow up Is there anything else that you would like to discuss? no Questions/Comments/Concerns/Other:none
== END 2024-04-01 10:41 | disposition home or self-care (01) | DRG 896 ==
LOC: ER 16:03 → ICU 17:10 → MS 03-31 16:02
PROVIDERS: Internal Medicine; Admitting Provider Family Medicine; Emergency Provider Emergency Medicine; Visit Provider Family Medicine
DX: F10.231 Alcohol dependence with withdrawal delirium (principal); K85.20 Alcohol induced acute pancreatitis without necrosis or infection; R44.3 Hallucinations, unspecified; F10.229 Alcohol dependence with intoxication, unspecified; Y90.8 Blood alcohol level of 240 mg/100 ml or more; K70.10 Alcoholic hepatitis without ascites; I10 Essential (primary) hypertension; E03.9 Hypothyroidism, unspecified; E11.65 Type 2 diabetes mellitus with hyperglycemia; F17.290 Nicotine dependence, other tobacco product, uncomplicated; F31.9 Bipolar disorder, unspecified; H10.89 Other conjunctivitis; E83.42 Hypomagnesemia; Z79.84 Long term (current) use of oral hypoglycemic drugs; Z79.890 Hormone replacement therapy; Z79.899 Other long term (current) drug therapy; Z88.8 Allergy status to other drugs, medicaments and biological substances; Z81.1 Family history of alcohol abuse and dependence
CPT/HCPCS: 36415; 74176; 80053; 80074; 80307; 80320; 82009; 82948; 83690; 83735; 84443; 84484; 84703; 85007; 85025; 85027; 85610; 93005; 94761; 96365; 96366; 96368; 97161; 97530; 99285; J0780; J1650; J2060; J2550; J3411; J3475

== ENCOUNTER 2024-04-02 14:36 | Emergency (ER) | payer BC, OTHER, SELFPAY ==
[2024-04-02 14:41] VITALS: BP 133/89; PULSE 124; TEMP 37.4; O2SAT 100; BMI 21.5
--- OUTSIDE RECORDS SUMMARY | 2024-04-02 14:44 | XMS_ITS | CCD ---
Author Organization [facility] InformFormerly [facility], [facility] Care Team Providers Care Greige Goods Examiner Name Role Phone [facility] Primary Care Provider DO Hal Orozco Emergency Provider [phone] CATIA Blanca Attending Provider MD Delfino Reese Attending Provider BRADY Mcneill Primary Care Provider [phone] AVERY BLANCA Primary Care Physician MAGGY WORLEY Consulting Unavailable [...] Attending Provider CATIA Blanca Primary Care Provider CATIA Blanca Attending Provider CATIA Blanca Primary Care Provider MD Jack Kwon Attending Provider [facility] Primary Care Provider CATIA Kerr Emergency Provider MD Jack Kwon Admit Provider EFFIE Deal Other Provider Unavailable EFFIE Romero Other Provider Unavailable EFFIE Thornton Other Provider Unavailable EFFIE Tom Other Provider Unavailable Mio RN Estella Other Provider Unavailable DO Chandan Whipple Other Provider MD Cisco Calderon Other Provider DO Jaime Alcocer Other Provider [phone] MD Srini Chavez Other Provider MD Ericka Dunn Other Provider MD Cm Escalona Other Provider Unavailable CATIA Bailon Other Provider MD Giuliano Serna Other Provider MD Albin Smith Other Provider MD Afshin Flores Other Provider MD Viktoria Padilla Other Provider DO Hari Nixon Other Provider MD Sarah Mahajan Other Provider MD Michael Avila Other Provider HUDSON Edwards-Jeannette Jones Other Provider CATIA Poe Other Provider Unavailable MD Nahum Soni Other Provider MD Scott Lunsford Other Provider MD Ruy Juarez Other Provider MD Maria Isabel Marte Other Provider Unavailable MD Ta Bonner Other Provider DO Mignon Lucero Other Provider DO Huy Escobar Other Provider CATIA Good Other Provider DO Diego Gregg Other Provider MD Carlos Johnson Other Provider [phone] CATIA Mcguire Other Provider [phone] CATIA Woods Other Provider [phone] MD Ashlee Osuna Other Provider MD Dariel Spence Other Provider [phone] DangeloDO Ermias forbes T Other Provider [phone] DO Gladys Matthews Other Provider MD Chato Juarez Other Provider MD Delma Kuo Other Provider CATIA Azar Other Provider MD Gurvinder Sosa Other Provider MD Sajan Knapp Other Provider EFFIE Carr Other Provider Unavailable Avery Blanca Primary Care Unavailable Becky Gambino Admitting Unavailable Becky Gambino Attending Unavailable Avery Blanca Attending Unavailable Avery Blanca Admitting Unavailable [facility] Primary Care Unavaila Avery Alejandra Primary Care Unavailable Jack Kwon Attending Unavailab le Argentina Kwonrahman Admitting Unavailab le Doyle Jack Admitting Unavailab Devonte Cartwright Attending Unavailable Mendy Deal Consulting Unavailable [facility] Primary Care Unavaila ble Gearheart, Nancy Consulting Unavailable Virginia Thornton Consulting Unavailable Marcela Tom Consulting Unavailable Estella Lieberman Consulting Unavailable Chandan Whipple Consulting Unavailable Cisco Calderon Consulting Unavailable [...] Mignon Lucero Unavailable Huy Escobar Consulting Unavailable Almaz Good Consulting Unavailable Diego Gregg Consulting Unavailable [...] Swelling of Lip/Tongue/Throa t, Anaphylactic reaction, Unknown [facility] Medications Current Medications Medication Drug Class(es) Dates Sig (Normalized) Sig (Original) acetaminophen 325 mg / HYDROcodone bitartrate 5 mg oral tablet (1 source) Opioid Agonist Start: 02-02-2022 [place] 325 mg-5 mg oral tablet 1 tab(s), [...] 11-06-2021 End: 01-15-2024 Promethazine Discontinued 25 MG NE Q6H November 06, 2021 12:00am January 15, [...] 4 Chronic Other aftercare (1 source) Other superintendent terminal (current) drug therapy; Translations: [OTH RESIDENTIAL CURRENT DRUG THERAPY] Onset: 2 Episodic Other [...] Creatinine Clr Calc Pharmacy 94.82 Normal [facility] Comment on above: Order Comment: DRAWN BY NAYANA Performed By: #### C MP, CBC, ETOH #### [address] GFR/1.73 sq M.predicted MDRD (S/P/Bld) [Vol rate/Area] mL/min/{1.73_m2} Normal [facility] Comment on above: Order Comment: DRAWN BY NAYANA Performed By: #### C MP, CBC, ETOH #### [facility] [address] Calcium [Mass/volume] in Ser um or PlasmaOrdered By: Helen Bailon on 01-20-2024 Calcium [Mass/Vol] 9.3 mg/dL Normal 8.6-10.3 [facility] Comment on above: Order Comment: DRAWN BY MK Performed By: #### C MP, CBC, ETOH #### [facility] [address] Capillary blood glucose archie urement by glucometer (mass/volume)Ordered By: Jack Kwon on 01-20-2024 Glucose [Mass/Vol] 161 mg/dL Normal [facility] Comment on above: Random Glucose Refer ence Range is dependent on time and content of last meal. Glucose of more than 200 mg/dL in a nonstressed, ambulatory subject supports the diagnosis of Diabetes Mellitus. Result Comment: [place] om Glucose Reference Range is dependent on time and content of last meal. Glucose of more than 200 mg/dL in a nonstressed, ambulatory subject supports the diagnosis of Diabetes Mellitus. PERFORMED BY: [place] [id number] PATHOLOGIST MANAGER OPERATIONAL OSMEL BLUE M.D. Performed By: #### C MP, CBC, ETOH #### [facility] [address] [place] [address] Carbon dioxide, total [Moles /volume] in Serum or PlasmaOrdered By: Helen Bailon on 01-20-2024 CO2 [Moles/Vol] 22.5 mmol/L Normal 21.0-31.0 [facility] Comment on above: Order Comment: DRAWN BY MK Performed By: #### C MP, CBC, ETOH #### [facility] [address] [place] [address] [place] Chloride [Moles/volume] in S ben or PlasmaOrdered By: Helen Bailon on 01-20-2024 Chloride [Moles/Vol] 107 mmol/L Normal 98-107 [facility] Comment on above: Order Comment: DRAWN BY MK Performed By: #### C MP, CBC, ETOH #### [facility] [address] Creatinine [Mass/volume] in Serum or PlasmaOrdered By: Helen Bailon on 01-20-2024 Creatinine [Mass/Vol] 0.77 mg/dL Normal 0.60-1.20 [facility] Comment on above: Order Comment: DRAWN BY MK Performed By: #### C MP, CBC, ETOH #### [facility] [address] Glucose [Mass/volume] in Ser um or PlasmaOrdered By: Helen Bailon on 01-20-2024 Glucose [Mass/Vol] 98 mg/dL Normal 70-100 [facility] Comment on above: ADA recommended refe rence rangeRandom Glucose Reference Range is dependent on time and content of last meal. Glucose of more than 200 mg/dL in a nonstressed, ambulatory subject supports the diagnosis of Diabetes Mellitus. Order Comment: DRAWN BY MK Result Comment: [place] om Glucose Reference Range is dependent on time and content of last meal. Glucose of more than 200 mg/dL in a nonstressed, ambulatory subject supports the diagnosis of Diabetes Mellitus. ADA recommended reference range Performed By: #### C MP, CBC, ETOH #### [facility] [address] Magnesium [Mass/volume] in S ben or PlasmaOrdered By: Helen Bailon on 01-20-2024 Magnesium [Mass/Vol] 1.6 mg/dL Low 1.9-2.7 [facility] Comment on above: Order Comment: DRAWN BY Result Comment: PERF ORMED BY: [place] [id number] PATHOLOGIST MANAGER OPERATIONAL OSMEL BLUE M.D. Performed By: #### C MP, CBC, ETOH #### [facility] [address] No Panel InformationOrdered By: Helen Bailon on 01-20-2024 Estimated GFR (CKD-EPI) > 60.0 mL/Min [facility] Creatinine Clearance (Chem 94.82 [facility] Potassium [Moles/volume] in Serum or PlasmaOrdered By: Helen Uvaldo on 01-20-2024 Potassium [Moles/Vol] 3.9 mmol/L Normal 3.5-5.1 [facility] Comment on above: Order Comment: DRAWN BY MK Performed By: #### C MP, CBC, ETOH #### [facility] [address] Serum or plasma anion gap de terminationOrdered By: Helen Uvaldo on 01-20-2024 Anion gap [Moles/Vol] 13.4 mmol/L Normal 6.0-15.0 [facility] Comment on above: Order Comment: DRAWN BY MK Performed By: #### C MP, CBC, ETOH #### [facility] [address] [place] [address] [place] Sodium [Moles/volume] in Ser um or PlasmaOrdered By: Helen Uvaldo on 01-20-2024 Sodium [Moles/Vol] 139 mmol/L Normal 136-145 [facility] Comment on above: Order Comment: DRAWN BY MK Performed By: #### C MP, CBC, ETOH #### [facility] [address] [place] [address] [place] Urea nitrogen [Mass/volume] in Serum or PlasmaOrdered By: Helen Uvaldo on 01-20-2024 Urea nitrogen [Mass/Vol] 11 mg/dL Normal 7-25 [facility] Comment on above: Order Comment: DRAWN BY MK Performed By: #### C MP, CBC, ETOH #### [facility] [address] [place] [address] [place] A1C with Estimated Average G verotodd 01-19-2024 Glucose [Mass/Vol] 105 mg/dL Normal [facility] Comment on above: Order Comment: Comme nt ok to use previously drawn lab Result Comment: PERF ORMED BY: [place] [id number] PATHOLOGIST MANAGER OPERATIONAL OSMEL BLUE M.D. Performed By: #### A 1C [facility] eA #### [facility] [address] [place] [address] [place] Alanine aminotransferase [En zymatic activity/volume] in Serum or PlasmaOrdered By: Helentodd Bailon on 01-19-2024 ALT [Catalytic activity/Vol] 76 U/L High 7-52 [facility] Comment on above: Performed By: #### C MP, CBC, ETOH #### [facility] [address] [place] [address] [place] Albumin [Mass/volume] in Ser um or Plasma by Bromocresol green (BCG) dye binding methoOrdered By: Helne Bailon on 01-19-2024 Albumin BCG dye [Mass/Vol] 3.9 g/dL 3.5-5.7 [facility] Alkaline phosphatase [Enzyma tic activity/volume] in Serum or PlasmaOrdered By: Helen Bailon on 01-19-2024 ALP [Catalytic activity/Vol] 80 U/L Normal 34-104 [facility] Comment on above: Performed By: #### C MP, CBC, ETOH #### [facility] [address] Aspartate aminotransferase [ Enzymatic activity/volume] in Serum or PlasmaOrdered By: Helen Bailon on 01-19-2024 AST [Catalytic activity/Vol] 110 U/L High 13-39 [facility] Comment on above: Performed By: #### C MP, CBC, ETOH #### [facility] [address] [place] [address] [place] Bilirubin.total [Mass/volume ] in Serum or PlasmaOrdered By: Helen Bailon on 01-19-2024 Bilirubin [Mass/Vol] 0.7 mg/dL Normal 0.3-1.0 [facility] Comment on above: Performed By: #### C MP, CBC, ETOH #### [facility] [address] [place] [id number] [place] Comprehensive Metabolic Pane mike 01-19-2024 Albumin [Mass/Vol] 3.9 g/dL Normal 3.5-5.7 [facility] Comment on above: Performed By: #### C MP, CBC, ETOH #### [facility] [address] [place] [id number] [place] Anion gap [Moles/Vol] 14.1 mmol/L Normal 6.0-15.0 [facility] Comment on above: Performed By: #### C MP, CBC, ETOH #### [facility] [address] [place] [id number] [place] Calcium [Mass/Vol] 9.3 mg/dL Normal 8.6-10.3 [facility] Comment on above: Performed By: #### C MP, CBC, ETOH #### [facility] [address] [place] [address] [place] Chloride [Moles/Vol] 108 mmol/L High 98-107 [facility] Comment on above: Performed By: #### C MP, CBC, ETOH #### [facility] [address] [place] [address] [place] CO2 [Moles/Vol] 22.1 mmol/L Normal 21.0-31.0 [facility] Comment on above: Performed By: #### C MP, CBC, ETOH #### [facility] [address] [place] [address] [place] Creatinine [Mass/Vol] 0.63 mg/dL Normal 0.60-1.20 [facility] Comment on above: Performed By: #### C MP, CBC, ETOH #### [place] [address] [place] Creatinine Clr Calc Pharmacy 115.90 Normal [facility] Comment on above: Performed By: #### C MP, CBC, ETOH #### [facility] [address] [place] [address] [place] GFR/1.73 sq M.predicted MDRD (S/P/Bld) [Vol rate/Area] mL/min/{1.73_m2} Normal [facility] Comment on above: Performed By: #### C MP, CBC, ETOH #### [facility] [address] [place] [id number] [place] Glucose [Mass/Vol] 85 mg/dL Normal 70-100 [facility] Comment on above: Result Comment: [facility] Glucose Reference Range is dependent on time and content of last meal. Glucose of more than 200 mg/dL in a nonstressed, ambulatory subject supports the diagnosis of Diabetes Mellitus. ADA recommended reference range Performed By: #### C MP, CBC, ETOH #### [facility] [address] Potassium [Moles/Vol] 3.2 mmol/L Low 3.5-5.1 [facility] Comment on above: Performed By: #### C MP, CBC, ETOH #### [facility] [address] [place] [address] [place] Sodium [Moles/Vol] 141 mmol/L Normal 136-145 [facility] Comment on above: Performed By: #### C MP, CBC, ETOH #### [facility] [address] [place] [id number] [place] Urea nitrogen [Mass/Vol] 7 mg/dL Normal 7-25 [facility] Comment on above: Performed By: #### C MP, CBC, ETOH #### [facility] [address] [place] [id number] [place] Folate [Mass/volume] in Seru m or PlasmaOrdered By: Helen Bailon on 01-19-2024 Folate [Mass/Vol] 36.0 ng/mL >5.9 [facility] Comment on above: Folate reference ran ge: >5.9 ng/mlThe WHO technical consultation on folate and vitamin [id number] has determined that folate concentrations lessthan 4 ng/ml are considered deficient. Glucose mean value [Mass/vol ume] in Blood Estimated from glycated hemoglobinOrdered By: Helen Bailon on 01-19-2024 Average glucose Estimated from glycated hemoglobin (Bld) [Mass/Vol] 105 mg/dL [facility] Hemoglobin A1c percentageOrd ered By: Helen Bailon on 01-19-2024 HbA1c (Bld) [Mass fraction] 5.3 % Normal 4.3-5.6 [facility] Comment on above: Increased risk for d iabetes: 5.7 - 6.4diabetes: >6.4glycemic control for adults with diabetes: <7.0 Order Comment: Comme nt ok to use previously drawn lab Result Comment: Incr eased risk for diabetes: 5.7 - 6.4 diabetes: >6.4 glycemic control for adults with diabetes: <7.0 Performed By: #### A 1C [facility] #### [address] Lipase [Enzymatic activity/v olume] in Serum or PlasmaOrdered By: Helen Bailon on 01-19-2024 Lipase [Catalytic activity/Vol] U/L Low 11.0-82.0 [facility] Comment on above: Performed By: #### C MP, CBC, ETOH #### [address] Phosphate [Mass/volume] in S ben or PlasmaOrdered By: Helen Bailon on 01-19-2024 Phosphate [Mass/Vol] 6.4 mg/dL High 2.5-4.5 [facility] Comment on above: Performed By: #### C MP, CBC, ETOH #### [address] Protein [Mass/volume] in Ser um or PlasmaOrdered By: Helen Bailon on 01-19-2024 Protein [Mass/Vol] 6.7 g/dL Normal 6.4-8.9 [facility] Comment on above: Performed By: #### C MP, CBC, ETOH #### [address] Serum globulin measurement b y calculation (mass/volume)Ordered By: Helen Bailon on 01-19-2024 Globulin (S) [Mass/Vol] 2.8 g/dL Normal [facility] Comment on above: Performed By: #### C MP, CBC, ETOH #### [address] Serum or plasma albumin/glob ulin mass ratioOrdered By: Helen Bailon on 01-19-2024 Albumin/Globulin [Mass ratio] 1.4 {ratio} [facility] Comment on above: Performed By: #### C MP, CBC, ETOH #### [address] Vit. B12/Folate Profileon Folate 36.0 ng/mL Normal >5.9 [facility] Comment on above: Result Comment: Dorie te reference range: >5.9 ng/ml The WHO technical consultation on folate and vitamin b12 deficiencies has determined that folate concentrations less than 4 ng/ml are considered deficient. PERFORMED BY: [place] [id number] PATHOLOGIST MANAGER OPERATIONAL OSMEL BLUE M.D. Performed By: #### C MP, CBC, ETOH #### [address] Vitamin B1 (Thiamine) Bloodo n 01-19-2024 Vitamin B1 (Thiamine) Blood 207.3 High 66.5-200.0 [facility] Comment on above: Result Comment: This test was developed and its performance characteristics determined by [employer]. It has not been cleared or approved by the Food and Drug Administration. Performed at: [address] [id number] Gun Stock Checker: Charlie Manriquez MD, Phone: [phone] PERFORMED BY: [place] [id number] PATHOLOGIST MANAGER OPERATIONAL OSMEL BLUE M.D. Performed By: #### C MP, CBC, ETOH #### [address] Vitamin B12 ser/plasOrdered By: Helen Bailon on 01-19-2024 Cobalamin (Vitamin B12) [Mass/Vol] 392 pg/mL Normal 180-914 [facility] Comment on above: Performed By: #### C MP, CBC, ETOH #### [place] [id number] [facility] Comprehensive Metabolic Pane mike 01-18-2024 Albumin [Mass/Vol] 4.5 g/dL Normal 3.5-5.7 [facility] Comment on above: Performed By: #### C MP, CBC, ETOH #### [place] [address] [place] Albumin/Globulin [Mass ratio] 1.5 {ratio} Normal [facility] Comment on above: Performed By: #### C MP, CBC, ETOH #### [address] ALP [Catalytic activity/Vol] 97 U/L Normal 34-104 [facility] Comment on above: Performed By: #### C MP, CBC, ETOH #### [address] ALT [Catalytic activity/Vol] 66 U/L High 7-52 [facility] Comment on above: Performed By: #### C MP, CBC, ETOH #### [address] Anion gap [Moles/Vol] 14.5 mmol/L Normal 6.0-15.0 [facility] Comment on above: Performed By: #### C MP, CBC, ETOH #### [address] AST [Catalytic activity/Vol] 103 U/L High 13-39 [facility] Comment on above: Performed By: #### C MP, CBC, ETOH #### [place] [address] [place] Bilirubin [Mass/Vol] 0.7 mg/dL Normal 0.3-1.0 [facility] Comment on above: Performed By: #### C MP, CBC, ETOH #### [place] [address] [place] Calcium [Mass/Vol] 10.2 mg/dL Normal 8.6-10.3 [facility] Comment on above: Performed By: #### C MP, CBC, ETOH #### [place] [address] [place] Chloride [Moles/Vol] 105 mmol/L Normal 98-107 [facility] Comment on above: Performed By: #### C MP, CBC, ETOH #### [address] CO2 [Moles/Vol] 23.9 mmol/L Normal 21.0-31.0 [facility] Comment on above: Performed By: #### C MP, CBC, ETOH #### [address] Creatinine [Mass/Vol] 0.66 mg/dL Normal 0.60-1.20 [facility] Comment on above: Performed By: #### C MP, CBC, ETOH #### [address] Creatinine Clr Calc Pharmacy 110.63 Normal [facility] Comment on above: Result Comment: PERF ORMED BY: [place] [id number] PATHOLOGIST MANAGER OPERATIONAL OSMEL BLUE M.D. Performed By: #### C MP, CBC, ETOH #### [address] GFR/1.73 sq M.predicted MDRD (S/P/Bld) [Vol rate/Area] mL/min/{1.73_m2} Normal [facility] Comment on above: Performed By: #### C MP, CBC, ETOH #### [address] Globulin (S) [Mass/Vol] 3.1 g/dL Normal [facility] Comment on above: Performed By: #### C MP, CBC, ETOH #### [address] Glucose [Mass/Vol] 135 mg/dL High 70-100 [facility] Comment on above: Result Comment: [place] Glucose Reference Range is dependent on time and content of last meal. Glucose of more than 200 mg/dL in a nonstressed, ambulatory subject supports the diagnosis of Diabetes Mellitus. ADA recommended reference range Performed By: #### C MP, CBC, ETOH #### [address] Potassium [Moles/Vol] 3.4 mmol/L Low 3.5-5.1 [facility] Comment on above: Performed By: #### C MP, CBC, ETOH #### [facility] [address] [place] [address] [place] Protein [Mass/Vol] 7.6 g/dL Normal 6.4-8.9 [facility] Comment on above: Performed By: #### C MP, CBC, ETOH #### [facility] [address] [place] [address] [place] Sodium [Moles/Vol] 140 mmol/L Normal 136-145 [facility] Comment on above: Performed By: #### C MP, CBC, ETOH #### [facility] [address] [place] [address] [place] Urea nitrogen [Mass/Vol] 5 mg/dL Low 7-25 [facility] Comment on above: Performed By: #### C MP, CBC, ETOH #### [facility] [address] Magnesiumon 01-18-2024 Magnesium [Mass/Vol] 1.4 mg/dL Low 1.9-2.7 [facility] Comment on above: Result Comment: PERF ORMED BY: [place] [id number] PATHOLOGIST MANAGER OPERATIONAL [employer]SMEL BLUE M.D. Performed By: #### C MP, CBC, ETOH #### [place] [address] [place] Cholesterol [Mass/volume] in Serum or PlasmaOrdered By: Jack Kwon on 01-16-2024 Cholesterol [Mass/Vol] 270 mg/dL High 140-200 [facility] Comment on above: Chol less than 200 m g/dl low riskChol 201-239 mg/dl borderline riskChol 240 mg/dl and greater high risk Result Comment: Chol less than 200 mg/dl low risk Chol 201-239 mg/dl borderline risk Chol 240 mg/dl and greater high risk Performed By: #### C MP, CBC, ETOH #### [place] [address] [place] Cholesterol in LDL Calc [Mas s/Vol]Ordered By: Jack Kwon on 01-16-2024 Cholesterol in LDL [Mass/Vol] 134 mg/dL High 0-100 [facility] Comment on above: LDL ATP III CLASSIFI CATIONLDL less than 100 mg/dL OptimalLDL 100-129 mg/dL Near or above optimalLDL 130-159 mg/dL Borderline highLDL 160-189 mg/dL HighLDL greater than 189 mg/dL Very high Cholesterol in VLDL Calc [Ma ss/Vol]Ordered By: Jack Kwon on 01-16-2024 Cholesterol in VLDL [Mass/Vol] 28 mg/dL [facility] ECG 12 lead ECGon 01-16-2024 ECG 12 lead ECG [facility] [place] [address] Electrocardiograph Report Signed Patient: Shikha Loera MR#: [id number] : 1985 Acct:[id number] Age/Sex: 38 / F ADM Date: 01/15/24 Loc: Room: [address] [place] [address] Type: ADM IN Attending Dr: Jack Kwon [...] rhythm Normal ECG Confirmed by Almaz Armando ([id number]) on 01/16/2024 4:49:39 PM Referred By: Electronically Signed By: Almaz Armando Transcribed By: MUS Signed By Almaz Armando MD 4 [id number] Normal [facility] Lipid Panelon 01-16-2024 LDL Cholesterol,Calculated 134 mg/dL High 0-100 [facility] Comment on above: Result Comment: LDL ATP III CLASSIFICATION LDL less than 100 mg/dL Optimal LDL 100-129 mg/dL Near or above optimal LDL 130-159 mg/dL Borderline high LDL 160-189 mg/dL High LDL greater than 189 mg/dL Very high Performed By: #### C MP, CBC, ETOH #### [facility] [address] Triglyceride w/Reflex 143 mg/dL Normal 0-149 [facility] Comment on above: Result Comment: TRIG ATP III CLASSIFICATION TRIG less than 150 mg/dL Normal TRIG 150-199 mg/dL Borderline high TRIG 200-500 mg/dL High TRIG greater than 500 mg/dL Very high Standard traceable to the Center for Disease Conrtrol and Prevention (CDC) test method. Performed By: #### C MP, CBC, ETOH #### [facility] [address] VLDL CHOLESTEROL 28 mg/dL Normal [facility] Comment on above: Performed By: #### C MP, CBC, ETOH #### [facility] [address] Magnesiumon 01-16-2024 Magnesium [Mass/Vol] 1.6 mg/dL Low 1.9-2.7 [facility] Comment on above: Performed By: #### C MP, CBC, ETOH #### [facility] [address] Serum or plasma high density lipoprotein (HDL) cholesterol measurementOrdered By: Jack Kwon on 01-16-2024 Cholesterol in HDL [Mass/Vol] 107 mg/dL High 23-92 [facility] Comment on above: HDL CHOL ATP-III CLA SSIFICATION Cardiovascular RiskHDL > or equal to 60 mg/dL LOWHDL < 40 mg/dL HIGH Result Comment: HDL CHOL ATP-III CLASSIFICATION Cardiovascular Risk HDL > or equal to 60 mg/dL LOW HDL < 40 mg/dL HIGH Performed By: #### C MP, CBC, ETOH #### [facility] [address] Serum or plasma total choles terol/high density lipoprotein (HDL) cholesterol mass ratOrdered By: Jack Kwon on 01-16-2024 Cholesterol.total/Chol esterol in HDL [Mass ratio] 2.5 {ratio} Normal <5.0 [facility] Comment on above: Performed By: #### C MP, CBC, ETOH #### [facility] [address] [place] [id number] [facility] Thyroid Stim Hormone w/Rflxo n 01-16-2024 Thyroid Stim Hormone w/Rflx 3.66 u[iU]/mL Normal 0.45-5.33 [facility] Comment on above: Performed By: #### C MP, CBC, ETOH #### [facility] [address] [place] [id number] [facility] Thyrotropin [Units/volume] i n Serum or PlasmaOrdered By: Jack Kwon on 01-16-2024 TSH Qn 3.66 m[IU]/L 0.45-5.33 [facility] Triglyceride [Mass/volume] i n Serum or PlasmaOrdered By: Jack Kwon on 01-16-2024 Triglyceride [Mass/Vol] 143 mg/dL 0-149 [facility] Comment on above: TRIG ATP III CLASSIF ICATIONTRIG less than 150 mg/dL NormalTRIG 150-199 mg/dL Borderline highTRIG 200-500 mg/dL High TRIG greater than 500 mg/dL Very highStandard traceable to the Center for Disease Conrtrol and Prevention (CDC) test method. Vitamin D 25 Hydroxy Totalon 01-16-2024 Vitamin D 25 Hydroxy Total 12.7 ng/mL Low 30-100 [facility] Comment on above: Result Comment: SANTY MIN D STATUS 25(OH)VITAMIN D RANGE (ng/mL) Deficient <20 Insufficient 20 to <30 Sufficient 30 to 100 Reference: Davey MF,Merlin NC, Morales FOX, et al. Evaluation,treatment, and prevention of vitamin D deficiency; an Endocrine Society clinical practice guideline. JCEM. 2010; 96(7):1911-30. PERFORMED BY: [place] [id number] PATHOLOGIST MANAGER OPERATIONAL OSMEL BLUE M.D. Performed By: #### C MP, CBC, ETOH #### [facility] [address] [place] [id number] [facility] Vitamin D+Metabolites [Mass/ volume] in Serum or PlasmaOrdered By: Jack Kwon on 01-16-2024 Vitamin D+Metabolites [Mass/Vol] 12.7 ng/mL Low 30-100 [facility] Comment on above: VITAMIN D STATUS 25( [...] ALT [Catalytic activity/Vol] 80 U/L High 7-52 [facility] Comment on above: Performed By: #### C MP, CBC, ETOH #### [facility] [address] [place] [address] [place] Albumin [Mass/volume] in Ser um or Plasma by Bromocresol green (BCG) dye binding methoOrdered By: Libby Kerr on 01-14-2024 Albumin BCG dye [Mass/Vol] 4.6 g/dL 3.5-5.7 [facility] Alkaline phosphatase [Enzyma tic activity/volume] in Serum or PlasmaOrdered By: Libby Kerr on 01-14-2024 ALP [Catalytic activity/Vol] 115 U/L High 34-104 [facility] Comment on above: Result Comment: PERF ORMED BY: [facility] [address] [place] [address] PATHOLOGIST MANAGER OPERATIONAL OSMEL BLUE M.D. Performed By: #### C MP, CBC, ETOH #### [facility] [address] [place] [id number] [place] Amphetamine Screen Ql (U)Ord ered By: Libby Kerr on 01-14-2024 Amphetamines Ql (U) Negative Negative [facility] Aspartate aminotransferase [ Enzymatic activity/volume] in Serum or PlasmaOrdered By: Libby Kerr on 01-14-2024 AST [Catalytic activity/Vol] 127 U/L High 13-39 [facility] Comment on above: Performed By: #### C MP, CBC, ETOH #### [address] Automated basophil %Ordered By: Libby Attilamay on 01-14-2024 Basophils/100 WBC (Bld) 3.1 % Normal . [facility] Comment on above: Performed By: #### C MP, CBC, ETOH #### [address] Automated basophil countOrde red By: Libby Attilamay on 01-14-2024 Basophils (Bld) [#/Vol] 0.1 10*3/uL Normal 0.0-0.2 [facility] Comment on above: Result Comment: PERF ORMED BY: [place] [id number] PATHOLOGIST MANAGER OPERATIONAL OSMEL BLUE M.D. Performed By: #### C MP, CBC, ETOH #### [address] Automated blood monocyte cou ntOrdered By: Libby Attilamay on 01-14-2024 Monocytes (Bld) [#/Vol] 0.2 10*3/uL Normal 0.0-0.8 [facility] Comment on above: Performed By: #### C MP, CBC, ETOH #### [address] Automated eosinophil %Ordere d By: Libby Kerr on 01-14-2024 Eosinophils/100 WBC (Bld) 0.3 % Normal . [facility] Comment on above: Performed By: #### C MP, CBC, ETOH #### [address] Automated eosinophil countOr dered By: Libby Attilamay on 01-14-2024 Eosinophils (Bld) [#/Vol] 0.0 10*3/uL Normal 0.0-0.45 [facility] Comment on above: Performed By: #### C MP, CBC, ETOH #### [address] Automated monocyte %Ordered By: Libby Kerr on 01-14-2024 Monocytes/100 WBC (Bld) 3.1 % Normal . [facility] Comment on above: Performed By: #### C MP, CBC, ETOH #### [facility] [address] Automated neutrophil %Ordere d By: Libby Kerr on 01-14-2024 Neutrophils/100 WBC (Bld) 44.5 % Normal . [facility] Comment on above: Performed By: #### C MP, CBC, ETOH #### [facility] [address] Bacteria [Presence] in Urine by AutomatedOrdered By: Libby Kerr on 01-14-2024 Bacteria Auto Ql (U) 1+ [HPF] High None Seen [facility] Barbiturates [Presence] in U rine by Screen methodOrdered By: Libby Kerr on 01-14-2024 Barbiturates Screen Ql (U) Negative Negative [facility] Benzodiazepines Screen Ql (U )Ordered By: Libby Kerr on 01-14-2024 Benzodiazepines Ql (U) Negative Negative [facility] Benzoylecgonine [Presence] i n Urine by Screen methodOrdered By: Libby Kerr on 01-14-2024 Benzoylecgonine Screen Ql (U) Negative Negative [facility] Bilirubin Test strip Ql (U)O rdered By: Libby Kerr on 01-14-2024 Bilirubin Ql (U) Negative Negative [facility] Bilirubin.total [Mass/volume ] in Serum or PlasmaOrdered By: Libby Kerr on 01-14-2024 Bilirubin [Mass/Vol] 0.6 mg/dL Normal 0.3-1.0 [facility] Comment on above: Performed By: #### C MP, CBC, ETOH #### [facility] [address] [place] [address] [place] Calcium [Mass/volume] in Ser um or PlasmaOrdered By: Libby Kerr on 01-14-2024 Calcium [Mass/Vol] 9.2 mg/dL Normal 8.6-10.3 [facility] Comment on above: Performed By: #### C MP, CBC, ETOH #### [place] [address] [place] Cannabinoids [Presence] in U rine by Screen methodOrdered By: Libby Kerr on 01-14-2024 Cannabinoids Screen Ql (U) Negative Negative [facility] Comment on above: These are unconfirme d results and should not be used for legal purposes. Drug Cut-Off Concentration: AMPH 1000 ng/mL DALLAS 200 ng/mL DAVID 200 ng/mL COCM 300 ng/mL OP 300 ng/mL PCP 25 ng/mL THC 20 ng/mL Carbon dioxide, total [Moles /volume] in Serum or PlasmaOrdered By: Libby Kerr on 01-14-2024 CO2 [Moles/Vol] 23.5 mmol/L Normal 21.0-31.0 [facility] Comment on above: Performed By: #### C MP, CBC, ETOH #### [place] [address] [place] Chloride [Moles/volume] in S ben or PlasmaOrdered By: Libby Kerr on 01-14-2024 Chloride [Moles/Vol] 102 mmol/L Normal 98-107 [facility] Comment on above: Performed By: #### C MP, CBC, ETOH #### [address] Color of Urine by AutoOrdere d By: Libby Kerr on 01-14-2024 Color (U) Light-yellow Normal Yellow [facility] Comment on above: Order Comment: Name Collection Type:: Clean-Voided Midstream Performed By: #### C MP, CBC, ETOH #### [place] [address] [place] Complete Blood Count Auto Di ffon 01-14-2024 Mean Corpuscular HGB Conc 35.0 g/dL Normal 32.0-35.0 [facility] Comment on above: Performed By: #### C MP, CBC, ETOH #### [place] [address] [place] Monocytes/100 WBC (Bld) 17.74 % Normal 0.00-20.00 [facility] Comment on above: Result Comment: For adults in ED, MDW > 20.0 may be associated with a higher risk of sepsis during the first 12 hrs of hospital admission Performed By: #### C MP, CBC, ETOH #### [address] NRBC% 0.1 /100{WBC} Normal 0-0.5 [facility] Comment on above: Performed By: #### C MP, CBC, ETOH #### [address] Comprehensive Metabolic Pane mike 01-14-2024 Albumin [Mass/Vol] 4.6 g/dL Normal 3.5-5.7 [facility] Comment on above: Performed By: #### C MP, CBC, ETOH #### [address] GFR/1.73 sq M.predicted MDRD (S/P/Bld) [Vol rate/Area] mL/min/{1.73_m2} Normal [facility] Comment on above: Performed By: #### C MP, CBC, ETOH #### [address] Creatinine [Mass/volume] in Serum or PlasmaOrdered By: Libby Kerr on 01-14-2024 Creatinine [Mass/Vol] 0.58 mg/dL Low 0.60-1.20 [facility] Comment on above: Performed By: #### C MP, CBC, ETOH #### [place] [address] [place] Dipstick and Microscopicon 1 Bacteria,Urine 1+ High None Seen [facility] Comment on above: Order Comment: Name Collection Type:: Clean-Voided Midstream Performed By: #### C MP, CBC, ETOH #### [address] Bilirubin,Urine Negative Normal Negative [facility] Comment on above: Order Comment: Name Collection Type:: Clean-Voided Midstream Performed By: #### C MP, CBC, ETOH #### [address] Glucose Ql (U) Normal Normal Normal [facility] Comment on above: Order Comment: Name Collection Type:: Clean-Voided Midstream Performed By: #### C MP, CBC, ETOH #### [facility] [address] [place] [address] [place] Hyaline Casts,Urine 0-8 Normal 0-8 [facility] Comment on above: Order Comment: Name Collection Type:: Clean-Voided Midstream Performed By: #### C MP, CBC, ETOH #### [place] [address] [place] Nitrite,Urine Negative Normal Negative [facility] Comment on above: Order Comment: Name Collection Type:: Clean-Voided Midstream Performed By: #### C MP, CBC, ETOH #### [place] [address] [place] Occult Blood,Urine Negative Normal Negative [facility] Comment on above: Order Comment: Name Collection Type:: Clean-Voided Midstream Performed By: #### C MP, CBC, ETOH #### [address] RBC,Urine 1-2 Normal 0-4 [facility] Comment on above: Order Comment: Name Collection Type:: Clean-Voided Midstream Performed By: #### C MP, CBC, ETOH #### [address] Specificy [place],Urine 1.005 Normal 1.001-1.03 0 [facility] Comment on above: Order Comment: Name Collection Type:: Clean-Voided Midstream Performed By: #### C MP, CBC, ETOH #### [place] [address] [place] Squamous Epithelial Cell,Urine 3-4 High 0-2 [facility] Comment on above: Order Comment: Name Collection Type:: Clean-Voided Midstream Performed By: #### C MP, CBC, ETOH #### [place] [address] [place] Urobilinogen,Urine Normal Normal Normal [facility] Comment on above: Order Comment: Name Collection Type:: Clean-Voided Midstream Performed By: #### C MP, CBC, ETOH #### [place] [address] [place] WBC,Urine 1-2 Normal 0-4 [facility] Comment on above: Order Comment: Name Collection Type:: Clean-Voided Midstream Performed By: #### C MP, CBC, ETOH #### [place] [address] [place] Drug Screen,Urineon 01-14-20 24 Amphetamine Screen,Urine Negative Normal Negative [facility] Comment on above: Performed By: #### C MP, CBC, ETOH #### [address] Barbiturate Screen,Urine Negative Normal Negative [facility] Comment on above: Performed By: #### C MP, CBC, ETOH #### [place] [address] [place] Benzodiazepines Screen,Urine Negative Normal Negative [facility] Comment on above: Performed By: #### C MP, CBC, ETOH #### [address] Cannabinoid Screen,Urine Negative Normal Negative [facility] Comment on above: Result Comment: Thes e are unconfirmed results and should not be used for legal purposes. Drug Cut-Off Concentration: AMPH 1000 ng/mL DALLAS 200 ng/mL DAVID 200 ng/mL COCM 300 ng/mL OP 300 ng/mL PCP 25 ng/mL THC 20 ng/mL PERFORMED BY: [place] [id number] PATHOLOGIST MANAGER OPERATIONAL OSMEL BLUE M.D. Performed By: #### C MP, CBC, ETOH #### [address] Cocaine Screen,Urine Negative Normal Negative [facility] Comment on above: Performed By: #### C MP, CBC, ETOH #### [facility] [address] Opiate Screen,Urine Negative Normal Negative [facility] Comment on above: Performed By: #### C MP, CBC, ETOH #### [facility] [address] Phencyclidine Screen,Urine Negative Normal Negative [facility] Comment on above: Performed By: #### C MP, CBC, ETOH #### [facility] [address] ECG 12 lead ECGon 01-14-2024 ECG 12 lead ECG [facility] [place] [address] [place] [address] Electrocardiograph Report Signed Patient: Shikha Loera MR#: [id number] : 1985 Acct:[id number] Age/Sex: 38 / F ADM Date: 01/15/24 Loc: Room: [address] [place] [address] Type: ADM IN Attending Dr: Jack Kwon [...] : 450 ms Sinus tachycardia with short NE Otherwise normal ECG When compared with ECG of 14-Feb-2015 09:02, NE interval has decreased Vent. rate has increased by 73 bpm Confirmed by LILIANA MARINA DO ([id number]) on 01/15/2024 4:02:38 PM Referred By: Electronically Signed By: LILIANA MARINA DO Transcribed By: MUS Signed By Liliana Marina DO 01/14 1602 Normal [facility] Epithelial cells.squamous [# /area] in Urine sediment by Automated countOrdered By: Libby Kerr on 01-14-2024 Epithelial cells.squamous Auto (Urine sed) [#/Area] 3-4 [HPF] High 0-2 [facility] Erythrocyte distribution wid th [Ratio] by Automated countOrdered By: Libby Kerr on 01-14-2024 Erythrocyte distribution width (RBC) [Ratio] 13.5 % Normal 11.9-15.3 [facility] Comment on above: Performed By: #### C MP, CBC, ETOH #### [address] Erythrocytes [#/area] in Uri ne sediment by Automated countOrdered By: Libby Kerr on 01-14-2024 RBC Auto (Urine sed) [#/Area] 1-2 [HPF] 0-4 [facility] Erythrocytes [#/volume] in B lood by Automated countOrdered By: Libby Kerr on 01-14-2024 RBC (Bld) [#/Vol] 4.73 10*6/uL Normal 3.60-5.00 [facility] Comment on above: Performed By: #### C MP, CBC, ETOH #### [facility] [address] [place] [address] [place] Ethanol [Mass/volume] in Ser um or PlasmaOrdered By: Libby Kerr on 01-14-2024 Ethanol [Mass/Vol] 456 mg/dL Normal [facility] Comment on above: Performed By: #### C MP, CBC, ETOH #### [address] Ethanol [Mass/Vol] 0.456 % [facility] Ethyl Alcohol Profileon Percent Ethanol 0.456 % Normal [facility] Comment on above: Result Comment: PERF ORMED BY: [place] [id number] PATHOLOGIST MANAGER OPERATIONAL OSMEL BLUE M.D. Performed By: #### C MP, CBC, ETOH #### [facility] [address] [place] [address] [place] Glucose [Mass/volume] in Ser um or PlasmaOrdered By: Libby Kerr on 01-14-2024 Glucose [Mass/Vol] 107 mg/dL High 70-100 [facility] Comment on above: ADA recommended refe rence rangeRandom Glucose Reference Range is dependent on time and content of last meal. Glucose of more than 200 mg/dL in a nonstressed, ambulatory subject supports the diagnosis of Diabetes Mellitus. Result Comment: [place] om Glucose Reference Range is dependent on time and content of last meal. Glucose of more than 200 mg/dL in a nonstressed, ambulatory subject supports the diagnosis of Diabetes Mellitus. ADA recommended reference range Performed By: #### C MP, CBC, ETOH #### [address] Glucose [Mass/volume] in Uri ne by Test stripOrdered By: Libby Kerr on 01-14-2024 Glucose Test strip (U) [Mass/Vol] Normal mg/dL Normal [facility] HCG ( test) IA.rapi d Ql (U)Ordered By: Libby Kerr on 01-14-2024 HCG ( test) Ql (U) Negative [facility] HCG,Urineon 01-14-2024 Beta HCG ( test) Ql (U) Negative Normal [facility] Comment on above: Order Comment: Name Collection Type:: Clean-Voided Midstream Result Comment: PERF ORMED BY: [place] [id number] PATHOLOGIST MANAGER OPERATIONAL OSMEL BLUE M.D. Performed By: #### C MP, CBC, ETOH #### [address] Hematocrit [Volume Fraction] of Blood by Automated countOrdered By: Libby Kerr on 01-14-2024 Hematocrit (Bld) [Volume fraction] 43.3 % Normal 34.0-46.4 [facility] Comment on above: Performed By: #### C MP, CBC, ETOH #### [address] Hemoglobin Test strip Ql (U) Ordered By: Libby Kerr on 01-14-2024 Hemoglobin Ql (U) Negative Negative [facility] Hemoglobin [Mass/volume] in BloodOrdered By: Libby Kerr on 01-14-2024 Hemoglobin (Bld) [Mass/Vol] 15.1 g/dL Normal 11.8-15.4 [facility] Comment on above: Performed By: #### C MP, CBC, ETOH #### [facility] [address] [place] [address] [place] Hyaline casts [#/area] in Ur ine sediment by Automated countOrdered By: Libby Kerr on 01-14-2024 Hyaline casts Auto (Urine sed) [#/Area] 0-8 [LPF] 0-8 [facility] Ketones [Presence] in Urine by Test stripOrdered By: Libby Kerr on 01-14-2024 Ketones Ql (U) Negative Normal Negative [facility] Comment on above: Order Comment: Name Collection Type:: Clean-Voided Midstream Performed By: #### C MP, CBC, ETOH #### [facility] [address] [place] [address] [place] Leukocyte esterase [Presence ] in Urine by Test stripOrdered By: Libby Kerr on 01-14-2024 Leukocyte esterase Test strip Ql (U) Negative Normal Negative [facility] Comment on above: Order Comment: Name Collection Type:: Clean-Voided Midstream Performed By: #### C MP, CBC, ETOH #### [facility] [address] [place] [address] [place] Leukocytes [#/area] in Urine sediment by Automated countOrdered By: Libby Kerr on 01-14-2024 WBC Auto (Urine sed) [#/Area] 1-2 [HPF] 0-4 [facility] Leukocytes [#/volume] correc rob for nucleated erythrocytes in Blood by Automated counOrdered By: Libby Kerr on 01-14-2024 WBC corrected for nucl RBC Auto (Bld) [#/Vol] 4.8 10*3/uL 3.8-11.6 [facility] Leukocytes [#/volume] in Blo od by Automated countOrdered By: Libby Kerr on 01-14-2024 WBC (Bld) [#/Vol] 4.8 10*3/uL Normal 3.8-11.6 [facility] Comment on above: Performed By: #### C MP, CBC, ETOH #### [address] Lymphocytes [#/volume] in Bl ood by Automated countOrdered By: Libby Kerr on 01-14-2024 Lymphocytes (Bld) [#/Vol] 2.4 10*3/uL Normal 1.00-4.8 [facility] Comment on above: Performed By: #### C MP, CBC, ETOH #### [address] Lymphocytes/100 leukocytes i n Blood by Automated countOrdered By: Libby Kerr on 01-14-2024 Lymphocytes/100 WBC (Bld) 49.0 % Normal . [facility] Comment on above: Performed By: #### C MP, CBC, ETOH #### [address] MCH [Entitic mass] by Automa rob countOrdered By: Libby Kerr on 01-14-2024 MCH (RBC) [Entitic mass] 32.0 pg Normal 24.7-34.3 [facility] Comment on above: Performed By: #### C MP, CBC, ETOH #### [address] MCHC Auto (RBC) [Mass/Vol]Or dered By: Libby Kerr on 01-14-2024 MCHC (RBC) [Mass/Vol] 35.0 g/dL 32.0-35.0 [facility] MCV [Entitic volume] by Auto mated countOrdered By: Libby Kerr on 01-14-2024 MCV (RBC) [Entitic vol] 91.4 fL Normal 80-100 [facility] Comment on above: Performed By: #### C MP, CBC, ETOH #### [address] Monocyte distribution width [Entitic volume] in Blood by AutomatedOrdered By: Libby Kerr on 01-14-2024 Monocyte distribution width Auto (Bld) [Entitic vol] 17.74 % 0.00-20.00 [facility] Comment on above: For adults in ED, MD W > 20.0 may be associated with a higher risk of sepsis during the first 12 hrs of hospital admission Neutrophils [#/volume] in Bl ood by Automated countOrdered By: Libby Kerr on 01-14-2024 Neutrophils (Bld) [#/Vol] 2.2 10*3/uL Normal 1.8-7.7 [facility] Comment on above: Performed By: #### C MP, CBC, ETOH #### [facility] [address] Nitrite Test strip Ql (U)Ord ered By: Libby Kerr on 01-14-2024 Nitrite Ql (U) Negative Negative [facility] No Panel InformationOrdered By: Libby Kerr on 01-14-2024 Estimated GFR (CKD-EPI) > 60.0 mL/Min [facility] Creatinine Clearance (Chem N/A [facility] Nucleated erythrocytes [Pres ence] in Blood by Automated countOrdered By: Libby Kerr on 01-14-2024 Nucleated RBC Auto Ql (Bld) 0.1 /100{WBC} 0-0.5 [facility] Opiates [Presence] in Urine by Screen methodOrdered By: Libby Kerr on 01-14-2024 Opiates Screen Ql (U) Negative Negative [facility] Phencyclidine Screen Ql (U)O rdered By: Libby Kerr on 01-14-2024 Phencyclidine Ql (U) Negative Negative [facility] Platelet mean volume [Entiti c volume] in Blood by Automated countOrdered By: Libby Kerr on 01-14-2024 Platelet mean volume (Bld) [Entitic vol] 7.5 fL Normal 6.3-10.7 [facility] Comment on above: Performed By: #### C MP, CBC, ETOH #### [facility] [address] Platelets [#/volume] in Bloo d by Automated countOrdered By: Libby Kerr on 01-14-2024 Platelets (Bld) [#/Vol] 192 10*3/uL Normal 150-450 [facility] Comment on above: Performed By: #### C MP, CBC, ETOH #### [facility] [address] [place] [address] [place] Potassium [Moles/volume] in Serum or PlasmaOrdered By: Libby Kerr on 01-14-2024 Potassium [Moles/Vol] 3.6 mmol/L Normal 3.5-5.1 [facility] Comment on above: Performed By: #### C MP, CBC, ETOH #### [place] [address] [place] Protein [Mass/volume] in Ser um or PlasmaOrdered By: Libby Kerr on 01-14-2024 Protein [Mass/Vol] 8.2 g/dL Normal 6.4-8.9 [facility] Comment on above: Performed By: #### C MP, CBC, ETOH #### [place] [address] [place] Protein [Mass/volume] in Uri ne by Test stripOrdered By: Libby Kerr on 01-14-2024 Protein (U) [Mass/Vol] 20 mg/dL High Negative [facility] Comment on above: Order Comment: Name Collection Type:: Clean-Voided Midstream Performed By: #### C MP, CBC, ETOH #### [address] Serum globulin measurement b y calculation (mass/volume)Ordered By: Libby Kerr on 01-14-2024 Globulin (S) [Mass/Vol] 3.6 g/dL [facility] Comment on above: Performed By: #### C MP, CBC, ETOH #### [address] Serum or plasma albumin/glob ulin mass ratioOrdered By: Libby Kerr on 01-14-2024 Albumin/Globulin [Mass ratio] 1.3 {ratio} [facility] Comment on above: Performed By: #### C MP, CBC, ETOH #### [address] Serum or plasma anion gap de terminationOrdered By: Libby Kerr on 01-14-2024 Anion gap [Moles/Vol] 21.1 mmol/L High 6.0-15.0 [facility] Comment on above: Performed By: #### C MP, CBC, ETOH #### [facility] [address] Sodium [Moles/volume] in Ser um or PlasmaOrdered By: Libby Kerr on 01-14-2024 Sodium [Moles/Vol] 143 mmol/L Normal 136-145 [facility] Comment on above: Performed By: #### C MP, CBC, ETOH #### [facility] [address] [place] [address] Specific gravity Test strip (U) [Rel density]Ordered By: Libby Kerr on 01-14-2024 Specific gravity (U) [Rel density] 1.005 1.001-1.03 0 [facility] Urea nitrogen [Mass/volume] in Serum or PlasmaOrdered By: Libby Kerr on 01-14-2024 Urea nitrogen [Mass/Vol] 3 mg/dL Low 7-25 [facility] Comment on above: Performed By: #### C MP, CBC, ETOH #### [facility] [address] [place] [address] Urine appearanceOrdered By: Libby Kerr on 01-14-2024 Appearance (U) Cloudy Critically abnormal Clear [facility] Comment on above: Order Comment: Name Collection Type:: Clean-Voided Midstream Performed By: #### C MP, CBC, ETOH #### [address] Urobilinogen Test strip (U) [Mass/Vol]Ordered By: Libby Kerr on 01-14-2024 Urobilinogen (U) [Mass/Vol] Normal mg/dL Normal [facility] pH of Urine by Test stripOrd ered By: Libby Kerr on 01-14-2024 pH (U) 5.5 [pH] Normal 5.0-9.0 [facility] Comment on above: Order Comment: Name Collection Type:: Clean-Voided Midstream Performed By: #### C MP, CBC, ETOH #### [facility] [address] [place] [address] [place] URINE CULTURE, ROUTINEon Bacteria identified Cx Nom (U) Urine Culture, Routine [facility] Bacteria identified Cx Nom (U) Mixed urogenital maricel [facility] Bacteria identified Cx Nom (U) Less than 10,000 colonies/mL [facility] Bacteria identified Cx Nom (U) [facility] at[facility] Bacteria identified Cx Nom (U) [address] [place], [place] [id number] [facility] Bacteria identified Cx Nom (U) Gun Stock Checker: Torsten Vidal PhD, Phone: [phone] [facility] Alanine aminotransferase [En zymatic activity/volume] in Serum or PlasmaOrdered By: Avery Blanca on 08-14-2023 ALT [Catalytic activity/Vol] 29 U/L Normal 7-52 [facility] Comment on above: Order Comment: Qian brooks for Exam Benign essential hypertension Performed By: #### T SH3 wRFLX, LIPID, CBC, CMP #### [facility] [address] [place] [address] [place] Albumin [Mass/volume] in Ser um or Plasma by Bromocresol green (BCG) dye binding methoOrdered By: Avery Blanca on 08-14-2023 Albumin BCG dye [Mass/Vol] 4.8 g/dL 3.5-5.7 [facility] Alkaline phosphatase [Enzyma tic activity/volume] in Serum or PlasmaOrdered By: Avery Blanca on 08-14-2023 ALP [Catalytic activity/Vol] 82 U/L Normal 34-104 [facility] Comment on above: Order Comment: Reaso n for Exam Benign essential hypertension Performed By: #### T SH3 wRFLX, LIPID, CBC, CMP #### [facility] [address] [place] [address] [place] Aspartate aminotransferase [ Enzymatic activity/volume] in Serum or PlasmaOrdered By: Avery Blanca on 08-14-2023 AST [Catalytic activity/Vol] 78 U/L High 13-39 [facility] Comment on above: Order Comment: Reaso n for Exam Benign essential hypertension Performed By: #### T SH3 wRFLX, LIPID, CBC, CMP #### [facility] [address] [place] [address] Automated basophil %Ordered By: Avery Blanca on 08-14-2023 Basophils/100 WBC (Bld) 1.9 % Normal . [facility] Comment on above: Order Comment: Reaso n for Exam Benign essential hypertension Performed By: #### T SH3 wRFLX, LIPID, CBC, CMP #### [address] Automated basophil countOrde red By: Avery Blanca on 08-14-2023 Basophils (Bld) [#/Vol] 0.1 10*3/uL Normal 0.0-0.2 [facility] Comment on above: Order Comment: Reaso n for Exam Benign essential hypertension Result Comment: PERF ORMED BY: [place] [id number] PATHOLOGIST MANAGER OPERATIONAL OSMEL BLUE M.D. Performed By: #### T SH3 wRFLX, LIPID, CBC, CMP #### [address] Automated blood monocyte cou ntOrdered By: Avery Blanca on 08-14-2023 Monocytes (Bld) [#/Vol] 0.4 10*3/uL Normal 0.0-0.8 [facility] Comment on above: Order Comment: Reaso n for Exam Benign essential hypertension Performed By: #### T SH3 wRFLX, LIPID, CBC, CMP #### [facility] [address] [place] [address] Automated eosinophil %Ordere d By: Avery Blanca on 08-14-2023 Eosinophils/100 WBC (Bld) 1.0 % Normal . [facility] Comment on above: Order Comment: Reaso n for Exam Benign essential hypertension Performed By: #### T SH3 wRFLX, LIPID, CBC, CMP #### [facility] [address] [place] [address] Automated eosinophil countOr dered By: Avery Blanca on 08-14-2023 Eosinophils (Bld) [#/Vol] 0.0 10*3/uL Normal 0.0-0.45 [facility] Comment on above: Order Comment: Reaso n for Exam Benign essential hypertension Performed By: #### T SH3 wRFLX, LIPID, CBC, CMP #### [facility] [address] [place] [address] [place] Automated monocyte %Ordered By: Avery Blanca on 08-14-2023 Monocytes/100 WBC (Bld) 11.5 % Normal . [facility] Comment on above: Order Comment: Reaso n for Exam Benign essential hypertension Performed By: #### T SH3 wRFLX, LIPID, CBC, CMP #### [facility] [address] Automated neutrophil %Ordere d By: Avery Blanca on 08-14-2023 Neutrophils/100 WBC (Bld) 57.8 % Normal . [facility] Comment on above: Order Comment: Reaso n for Exam Benign essential hypertension Performed By: #### T SH3 wRFLX, LIPID, CBC, CMP #### [facility] [address] [place] [address] [place] Bilirubin.total [Mass/volume ] in Serum or PlasmaOrdered By: Avery Blanca on 08-14-2023 Bilirubin [Mass/Vol] 0.5 mg/dL Normal 0.3-1.0 [facility] Comment on above: Order Comment: Reaso n for Exam Benign essential hypertension Performed By: #### T SH3 wRFLX, LIPID, CBC, CMP #### [facility] [address] [place] [address] [place] Calcium [Mass/volume] in Ser um or PlasmaOrdered By: Avery Blanca on 08-14-2023 Calcium [Mass/Vol] 9.6 mg/dL Normal 8.6-10.3 [facility] Comment on above: Order Comment: Reaso n for Exam Benign essential hypertension Performed By: #### T SH3 wRFLX, LIPID, CBC, CMP #### [facility] [address] [place] [address] [place] Carbon dioxide, total [Moles /volume] in Serum or PlasmaOrdered By: Avery Blanca on 08-14-2023 CO2 [Moles/Vol] 24.7 mmol/L Normal 21.0-31.0 [facility] Comment on above: Order Comment: Reaso n for Exam Benign essential hypertension Performed By: #### T SH3 wRFLX, LIPID, CBC, CMP #### [facility] [address] [place] [id number] [place] Chloride [Moles/volume] in S ben or PlasmaOrdered By: Avery Blanca on 08-14-2023 Chloride [Moles/Vol] 95 mmol/L Low 98-107 [facility] Comment on above: Order Comment: Reaso n for Exam Benign essential hypertension Performed By: #### T SH3 wRFLX, LIPID, CBC, CMP #### [facility] [address] [place] [address] [place] Cholesterol [Mass/volume] in Serum or PlasmaOrdered By: Avery Blanca on 08-14-2023 Cholesterol [Mass/Vol] 333 mg/dL High 140-200 [facility] Comment on above: Chol less than 200 m g/dl low riskChol 201-239 mg/dl borderline riskChol 240 mg/dl and greater high risk Order Comment: Reaso n for Exam Benign essential hypertension Result Comment: Chol less than 200 mg/dl low risk Chol 201-239 mg/dl borderline risk Chol 240 mg/dl and greater high risk Performed By: #### T SH3 wRFLX, LIPID, CBC, CMP #### [facility] [address] [place] [address] [place] Cholesterol in LDL Calc [Mas s/Vol]Ordered By: Avery Blanca on 08-14-2023 Cholesterol in LDL [Mass/Vol] 181 mg/dL 0-100 [facility] Comment on above: LDL ATP III CLASSIFI CATIONLDL less than 100 mg/dL OptimalLDL 100-129 mg/dL Near or above optimalLDL 130-159 mg/dL Borderline highLDL 160-189 mg/dL HighLDL greater than 189 mg/dL Very high Cholesterol in VLDL Calc [Ma ss/Vol]Ordered By: Avery Blanca on 08-14-2023 Cholesterol in VLDL [Mass/Vol] 22 mg/dL [facility] Complete Blood Count Auto Di ffon 08-14-2023 Mean Corpuscular HGB Conc 34.2 g/dL Normal 32.0-35.0 [facility] Comment on above: Order Comment: Reaso n for Exam Benign essential hypertension Performed By: #### T SH3 wRFLX, LIPID, CBC, CMP #### [address] NRBC% 0.3 /100{WBC} Normal 0-0.5 [facility] Comment on above: Order Comment: Reaso n for Exam Benign essential hypertension Performed By: #### T SH3 wRFLX, LIPID, CBC, CMP #### [address] Comprehensive Metabolic Pane mike 08-14-2023 Albumin [Mass/Vol] 4.8 g/dL Normal 3.5-5.7 [facility] Comment on above: Order Comment: Reaso n for Exam Benign essential hypertension Performed By: #### T SH3 wRFLX, LIPID, CBC, CMP #### [address] GFR/1.73 sq M.predicted MDRD (S/P/Bld) [Vol rate/Area] mL/min/{1.73_m2} Normal [facility] Comment on above: Order Comment: Reaso n for Exam Benign essential hypertension Performed By: #### T SH3 wRFLX, LIPID, CBC, CMP #### [address] Creatinine [Mass/volume] in Serum or PlasmaOrdered By: Avery Blanca on 08-14-2023 Creatinine [Mass/Vol] 0.48 mg/dL Low 0.60-1.20 [facility] Comment on above: Order Comment: Reaso n for Exam Benign essential hypertension Performed By: #### T SH3 wRFLX, LIPID, CBC, CMP #### [facility] [address] [place] [address] Erythrocyte distribution wid th [Ratio] by Automated countOrdered By: Avery Blanca on 08-14-2023 Erythrocyte distribution width (RBC) [Ratio] 14.2 % Normal 11.9-15.3 [facility] Comment on above: Order Comment: Reaso n for Exam Benign essential hypertension Performed By: #### T SH3 wRFLX, LIPID, CBC, CMP #### [facility] [address] [place] [address] [place] Erythrocytes [#/volume] in B lood by Automated countOrdered By: Avery Blanca on 08-14-2023 RBC (Bld) [#/Vol] 4.03 10*6/uL Normal 3.60-5.00 [facility] Comment on above: Order Comment: Reaso n for Exam Benign essential hypertension Performed By: #### T SH3 wRFLX, LIPID, CBC, CMP #### [facility] [address] [place] [address] [place] Glucose [Mass/volume] in Ser um or PlasmaOrdered By: Avery Blanca on 08-14-2023 Glucose [Mass/Vol] 102 mg/dL High 70-100 [facility] Comment on above: ADA recommended refe rence rangeRandom Glucose Reference Range is dependent on time and content of last meal. Glucose of more than 200 mg/dL in a nonstressed, ambulatory subject supports the diagnosis of Diabetes Mellitus. Order Comment: Reaso n for Exam Benign essential hypertension Result Comment: [place] om Glucose Reference Range is dependent on time and content of last meal. Glucose of more than 200 mg/dL in a nonstressed, ambulatory subject supports the diagnosis of Diabetes Mellitus. ADA recommended reference range Performed By: #### T SH3 wRFLX, LIPID, CBC, CMP #### [facility] [address] [place] [address] [place] Hematocrit [Volume Fraction] of Blood by Automated countOrdered By: Avery Blanca on 08-14-2023 Hematocrit (Bld) [Volume fraction] 39.2 % Normal 34.0-46.4 [facility] Comment on above: Order Comment: Reaso n for Exam Benign essential hypertension Performed By: #### T SH3 wRFLX, LIPID, CBC, CMP #### [facility] [address] [place] [address] [place] Hemoglobin [Mass/volume] in BloodOrdered By: Avery Blanca on 08-14-2023 Hemoglobin (Bld) [Mass/Vol] 13.4 g/dL Normal 11.8-15.4 [facility] Comment on above: Order Comment: Reaso n for Exam Benign essential hypertension Performed By: #### T SH3 wRFLX, LIPID, CBC, CMP #### [facility] [address] Leukocytes [#/volume] correc rob for nucleated erythrocytes in Blood by Automated counOrdered By: Avery Blanca on 08-14-2023 WBC corrected for nucl RBC Auto (Bld) [#/Vol] 3.8 10*3/uL 3.8-11.6 [facility] Leukocytes [#/volume] in Blo od by Automated countOrdered By: Avery Blanca on 08-14-2023 WBC (Bld) [#/Vol] 3.8 10*3/uL Normal 3.8-11.6 [facility] Comment on above: Order Comment: Reaso n for Exam Benign essential hypertension Performed By: #### T SH3 wRFLX, LIPID, CBC, CMP #### [facility] [address] Lipid Panelon 08-14-2023 LDL Cholesterol,Calculated 181 mg/dL High 0-100 [facility] Comment on above: Order Comment: Reaso n for Exam Benign essential hypertension Result Comment: LDL ATP III CLASSIFICATION LDL less than 100 mg/dL Optimal LDL 100-129 mg/dL Near or above optimal LDL 130-159 mg/dL Borderline high LDL 160-189 mg/dL High LDL greater than 189 mg/dL Very high Performed By: #### T SH3 wRFLX, LIPID, CBC, CMP #### [facility] [address] Triglyceride w/Reflex 111 mg/dL Normal 0-149 [facility] Comment on above: [...] T SH3 wRFLX, LIPID, CBC, CMP #### [facility] [address] [place] [id number] [facility] VLDL CHOLESTEROL 22 mg/dL Normal [facility] Comment on above: Order Comment: Reaso n for Exam Benign essential hypertension Performed By: #### T SH3 wRFLX, LIPID, CBC, CMP #### [facility] [address] [place] [address] Lymphocytes [#/volume] in Bl ood by Automated countOrdered By: Avery Blanca on 08-14-2023 Lymphocytes (Bld) [#/Vol] 1.1 10*3/uL Normal 1.00-4.8 [facility] Comment on above: Order Comment: Reaso n for Exam Benign essential hypertension Performed By: #### T SH3 wRFLX, LIPID, CBC, CMP #### [facility] [address] [place] [address] Lymphocytes/100 leukocytes i n Blood by Automated countOrdered By: Avery Blanca on 08-14-2023 Lymphocytes/100 WBC (Bld) 27.8 % Normal . [facility] Comment on above: Order Comment: Reaso n for Exam Benign essential hypertension Performed By: #### T SH3 wRFLX, LIPID, CBC, CMP #### [facility] [address] [place] [address] MCH [Entitic mass] by Automa rob countOrdered By: Avery Blanca on 08-14-2023 MCH (RBC) [Entitic mass] 33.3 pg Normal 24.7-34.3 [facility] Comment on above: Order Comment: Reaso n for Exam Benign essential hypertension Performed By: #### T SH3 wRFLX, LIPID, CBC, CMP #### [facility] [address] [place] [address] MCHC Auto (RBC) [Mass/Vol]Or dered By: Avery Blanca on 08-14-2023 MCHC (RBC) [Mass/Vol] 34.2 g/dL 32.0-35.0 [facility] MCV [Entitic volume] by Auto mated countOrdered By: Avery Blanca on 08-14-2023 MCV (RBC) [Entitic vol] 97.1 fL Normal 80-100 [facility] Comment on above: Order Comment: Reaso n for Exam Benign essential hypertension Performed By: #### T SH3 wRFLX, LIPID, CBC, CMP #### [facility] [address] Neutrophils [#/volume] in Bl ood by Automated countOrdered By: Avery Blanca on 08-14-2023 Neutrophils (Bld) [#/Vol] 2.2 10*3/uL Normal 1.8-7.7 [facility] Comment on above: Order Comment: Reaso n for Exam Benign essential hypertension Performed By: #### T SH3 wRFLX, LIPID, CBC, CMP #### [facility] [address] No Panel InformationOrdered By: Avery Blanca on 08-14-2023 Estimated GFR (CKD-EPI) > 60.0 mL/Min [facility] Creatinine Clearance (Chem N/A [facility] Nucleated erythrocytes [Pres ence] in Blood by Automated countOrdered By: Avery Blanca on 08-14-2023 Nucleated RBC Auto Ql (Bld) 0.3 /100{WBC} 0-0.5 [facility] Platelet mean volume [Entiti c volume] in Blood by Automated countOrdered By: Avery Blanca on 08-14-2023 Platelet mean volume (Bld) [Entitic vol] 7.1 fL Normal 6.3-10.7 [facility] Comment on above: Order Comment: Reaso n for Exam Benign essential hypertension Performed By: #### T SH3 wRFLX, LIPID, CBC, CMP #### [facility] [address] [place] [address] Platelets [#/volume] in Bloo d by Automated countOrdered By: Avery Blanca on 08-14-2023 Platelets (Bld) [#/Vol] 201 10*3/uL Normal 150-450 [facility] Comment on above: Order Comment: Reaso n for Exam Benign essential hypertension Performed By: #### T SH3 wRFLX, LIPID, CBC, CMP #### [facility] [address] [place] [address] [place] Potassium [Moles/volume] in Serum or PlasmaOrdered By: Avery Blanca on 08-14-2023 Potassium [Moles/Vol] 4.2 mmol/L Normal 3.5-5.1 [facility] Comment on above: Order Comment: Reaso n for Exam Benign essential hypertension Performed By: #### T SH3 wRFLX, LIPID, CBC, CMP #### [facility] [address] Protein [Mass/volume] in Ser um or PlasmaOrdered By: Avery Blanca on 08-14-2023 Protein [Mass/Vol] 7.3 g/dL Normal 6.4-8.9 [facility] Comment on above: Order Comment: Reaso n for Exam Benign essential hypertension Performed By: #### T SH3 wRFLX, LIPID, CBC, CMP #### [facility] [address] Serum globulin measurement b y calculation (mass/volume)Ordered By: Avery Blanca on 08-14-2023 Globulin (S) [Mass/Vol] 2.5 g/dL Normal [facility] Comment on above: Order Comment: Reaso n for Exam Benign essential hypertension Performed By: #### T SH3 wRFLX, LIPID, CBC, CMP #### [facility] [address] [place] [address] Serum or plasma albumin/glob ulin mass ratioOrdered By: Avery Blanca on 08-14-2023 Albumin/Globulin [Mass ratio] 1.9 {ratio} [facility] Comment on above: Order Comment: Reaso n for Exam Benign essential hypertension Performed By: #### T SH3 wRFLX, LIPID, CBC, CMP #### [facility] [address] [place] [address] Serum or plasma anion gap de terminationOrdered By: Avery Blanca on 08-14-2023 Anion gap [Moles/Vol] 14.5 mmol/L Normal 6.0-15.0 [facility] Comment on above: Order Comment: Reaso n for Exam Benign essential hypertension Performed By: #### T SH3 wRFLX, LIPID, CBC, CMP #### [facility] [address] [place] [address] Serum or plasma high density lipoprotein (HDL) cholesterol measurementOrdered By: Avery Blanca on 08-14-2023 Cholesterol in HDL [Mass/Vol] 130 mg/dL High 23-92 [facility] Comment on above: HDL CHOL ATP-III CLA SSIFICATION Cardiovascular RiskHDL > or equal to 60 mg/dL LOWHDL < 40 mg/dL HIGH Order Comment: Reaso n for Exam Benign essential hypertension Result Comment: HDL CHOL ATP-III CLASSIFICATION Cardiovascular Risk HDL > or equal to 60 mg/dL LOW HDL < 40 mg/dL HIGH Performed By: #### T SH3 wRFLX, LIPID, CBC, CMP #### [facility] [address] [place] [address] Serum or plasma total choles terol/high density lipoprotein (HDL) cholesterol mass ratOrdered By: Avery Blanca on 08-14-2023 Cholesterol.total/Chol esterol in HDL [Mass ratio] 2.6 {ratio} Normal <5.0 [facility] Comment on above: Order Comment: Reaso n for Exam Benign essential hypertension Performed By: #### T SH3 wRFLX, LIPID, CBC, CMP #### [facility] [address] [place] [address] Sodium [Moles/volume] in Ser um or PlasmaOrdered By: Avery Blanca on 08-14-2023 Sodium [Moles/Vol] 130 mmol/L Low 136-145 [facility] Comment on above: Order Comment: Reaso n for Exam Benign essential hypertension Performed By: #### T SH3 wRFLX, LIPID, CBC, CMP #### [facility] [address] [place] [address] Thyroid Stim Hormone w/Rflxo n 08-14-2023 Thyroid Stim Hormone w/Rflx 1.86 u[iU]/mL Normal 0.45-5.33 [facility] Comment on above: Order Comment: Reaso n for Exam Benign essential hypertension Result Comment: PERF ORMED BY: [place] [id number] PATHOLOGIST MANAGER OPERATIONAL OSMEL BLUE M.D. Performed By: #### T SH3 wRFLX, LIPID, CBC, CMP #### [facility] [address] [place] [address] Thyrotropin [Units/volume] i n Serum or PlasmaOrdered By: Avery Blanca on 08-14-2023 TSH Qn 1.86 m[IU]/L 0.45-5.33 [facility] Triglyceride [Mass/volume] i n Serum or PlasmaOrdered By: Avery Blanca on 08-14-2023 Triglyceride [Mass/Vol] 111 mg/dL 0-149 [facility] Comment on above: TRIG ATP III CLASSIF ICATIONTRIG less than 150 mg/dL NormalTRIG 150-199 mg/dL Borderline highTRIG 200-500 mg/dL High TRIG greater than 500 mg/dL Very highStandard traceable to the Center for Disease Conrtrol and Prevention (CDC) test method. Urea nitrogen [Mass/volume] in Serum or PlasmaOrdered By: Avery Blanca on 08-14-2023 Urea nitrogen [Mass/Vol] 5 mg/dL Low 7-25 [facility] Comment on above: Order Comment: Reaso n for Exam Benign essential hypertension Performed By: #### T SH3 wRFLX, LIPID, CBC, CMP #### [facility] [address] HbA1c HPLC (Bld) [Mass fract ion]on 06-14-2023 HbA1c (Bld) [Mass fraction] 4.7 % [facility] No Panel Informationon 06-13 Bedside Glucose 110 [facility] A1C HEMOGLOBINon 03-27-2023 HbA1c (Bld) [Mass fraction] 10.6 % Jaco Solarsi [facility] Other Glucose - FINGER STICKon Glucose [Mass/Vol] 95 mg/dL [facility] Other HbA1c (Bld) [Mass fraction]o n 03-27-2023 A1C HEMOGLOBIN [facility] Other Consent for Treatmenton 10-07 Consent for Treatment [id number]:12 7 Normal [facility] Discharge Instructionson Discharge Instructions [id number]: 127 Normal [facility] ED Clinical Summaryon 2022 ED Clinical Summary (Inserted Image. Jackie ble to display) [place] [address] ED Clinical Summary Person Information Name: SHIKHA LOERA/[place] Age: 37 Years : 1985 Sex: Female Language: Montenegrin PCP: NONE, XXXX Marital Status: Visit Id: [...] 10/21/2022 08:36:13 10/21/2022 08:36:13 10/21/2022 08:36:13 ADDRESS: [address] [place] [address] [place] [id number] PHYS DOC NOTES: MEDICAL INFORMATION: Prescriptions Given: New Medications [id number], [address] [place] [place] [id number], [phone] cyclobenzaprine (cyclobenzaprine 5 mg Tab) 1 Tablets [...] Continue with No Changes Other Medications acetaminophen-hydrocodone ([place] 325 mg-5 mg oral tablet) 1 Tablets [...] worsening symptoms. DIAGNOSIS: Contusion of rib Normal [facility] ED Note-Physicianon 10-22-19 ED Note-Physician Basic Information [...] pain, # 21 tab(s), Refills(s) 0, Pharmacy: [id number], 167.6, cm, 10/21/22 7:13:00 EDT, Height/Length Dosing, 61.5, kg, 10/21/22 7:13:00 EDT, Weight Dosing lidocaine topical, 1 patch(es), Topical, Daily, 7 EA, Refill(s) 0, apply 12 hours on and 12 hours off daily, [id number], 167.6, cm, 10/21/22 7:13:00 EDT, Height/Length Dosing, 61.5, kg, 10/21/22 7:13:00 EDT, Weight Dosing naproxen, 500 mg = 1 tab(s), Oral, BID, PRN for pain, # 20 tab(s), Refills(s) 0, Pharmacy: [id number], 167.6, cm, 10/21/22 7:13:00 EDT, Height/Length [...] No q (more content not included)... Normal [facility] Comment on above: Result Comment: Elec tronically [...] for lung collapse and pneumonia. ? Medicines. Jnqu-cqm-cxdddrb or prescription medicines may be given to control pain. ? Injection of a numbing medicine around the nerve near your injury (nerve block). Follow these instructions at home: Medicines ? Take sosz-ddn-tetvgcf and prescription medicines only as told by your health care provider. ? Ask your health care provider if the medicine prescribed to you: ? Requires you to avoid driving or using machinery. ? Can cause constipation. You may need to take these actions to prevent or treat constipation: ? Drink enough fluid to keep your urine pale yellow. ? Take euji-fbx-tsalvxo or prescription medicines. ? Eat foods that [...] Reviewed: 06/30/2020 Elsevier Patient Education ? 2022 [employer] Normal [facility] ED Patient Summaryon 023 ED Patient Summary (Inserted Image. Jackie ble to display) [address] [address] Patient Discharge Instructions Person Information Name: SHIKHA LOERA Age: 37 Years Arrival Date: 10/21/2022 06:56:51 Discharge Diagnosis: Contusion of rib Primary Care Physician: NONE, XXXX Provider Information Primary Provider: Thanh Bal DO [employer] Building [employer] Teacher:None The exam and treatment you received in the Emergency Department were for an urgent problem and are not intended as complete care. It is important that you follow up with a doctor, nurse practitioner, or physician?s recreational assistant for ongoing care. If your symptoms [...] opioids can be used to help relieve cbwndpkh-nb-nflgsy pain and are often prescribed following a [...] and ab (more content not included)... Normal [facility] XR Ribs Unilat 3 Views Left w/ [...] others may be chronic. No pneumothorax. Normal [facility] AMYLASEon 03-26-2022 Amylase [Catalytic activity/Vol] 20 U/L Critically low 25-115 [facility] Comment on above: Performed By: #### L IPA, NGA, CMP #### [facility] [address] [address] [address] Angela Aguero CBC W MANUAL DIFFon 03-26-20 22 ATYPICAL LYMPH # Normal [facility] Comment on above: Performed By: #### L IPA, NGA, CMP #### [facility] [address] [address] [address] Angela Aguero ATYPICAL LYMPH % Normal [facility] Comment on above: Performed By: #### L IPA, NGA, CMP #### [facility] [address] [address] [address] Angela Aguero BAND # 0.0 103/ul Normal 0.0-0.3 [facility] Comment on above: Performed By: #### L IPA, NGA, CMP #### [facility] [address] [address] [address] Angela Aguero BAND % 0 % Normal 0-5 [facility] Comment on above: Performed By: #### L IPA, NGA, CMP #### [facility] [address] [address] [address] Angela Aguero BASOM # 0.07 103/ul Normal 0.00-0.10 [facility] Comment on above: Performed By: #### L IPA NGA, CMP #### [facility] [address] [address] [address] Angela Aguero BASOM % 1.0 % Normal 0.2-2.0 [facility] Comment on above: Performed By: #### L IPA, NGA, CMP #### [facility] [address] [place] [address] Dr. Angela Aguero BLAST # Normal [facility] Comment on above: Performed By: #### L IPA NGA, CMP #### [facility] [address] [place] [address] Dr. Angela Aguero BLAST % Normal [facility] Comment on above: Performed By: #### L IPA NGA, CMP #### [facility] [address] [place] [address] Dr. Angela Aguero CORRECTED WBC Normal 4.0-11.0 [facility] Comment on above: Performed By: #### L IPA, NGA, CMP #### [facility] [address] [place] [address] Dr. Angela Aguero EOS # 0.00 103/ul Normal 0.00-0.70 [facility] Comment on above: Performed By: #### L IPA NGA, CMP #### [facility] [address] [place] [address] Dr. Angela Aguero EOS% 0.0 % Critically low 0.9-7.0 [facility] Comment on above: Performed By: #### L IPA, NGA, CMP #### [facility] [address] [place] [address] Dr. Angela Aguero HCT 42.7 % Normal 36.0-48.0 [facility] Comment on above: Performed By: #### L IPA, NGA, CMP #### [facility] [address] [place] [address] Dr. Angela Aguero HGB 15.0 g/dl Normal 12.0-16.0 [facility] Comment on above: Performed By: #### L IPA, NGA, CMP #### [facility] [address] [place] [address] Dr. Angela Aguero LYMPHM # 0.28 103/ul Critically low 1.20-3.80 [facility] Comment on above: Performed By: #### L IPA, NGA, CMP #### [facility] [address] [place] [address] Dr. Angela Aguero LYMPHM% 4.0 % Critically low 20.5-60.0 [facility] Comment on above: Performed By: #### L IPA, NGA, CMP #### [facility] [address] [place] [address] Dr. Angela Aguero MCH 34.1 pg Critically high 26.7-34.0 [facility] Comment on above: Performed By: #### L IPA, NGA, CMP #### [facility] [address] [place] [address] Dr. Angela Aguero MCHC 35.1 g/dl Normal 29.9-35.2 [facility] Comment on above: Performed By: #### L IPA, NGA, CMP #### [facility] [address] [place] [address] Dr. Angela Aguero MCV 97.0 fL Normal 81.0-99.0 [facility] Comment on above: Performed By: #### L IPA, NGA, CMP #### [facility] [address] [place] [address] Dr. Angela Aguero METAMYELOCYTE # Normal [facility] Comment on above: Performed By: #### L IPA, NGA, CMP #### [facility] [address] [place] [address] Dr. Angela Aguero METAMYELOCYTE % Normal [facility] Comment on above: Performed By: #### L IPA, NGA, CMP #### [facility] [address] [place] [address] Dr. Angela Aguero MONOM# 0.21 103/ul Critically low 0.30-0.80 [facility] Comment on above: Performed By: #### L IPA, NGA, CMP #### [facility] [address] [address] [address] Angela Aguero MONOM% 3.0 % Normal 1.7-12.0 [facility] Comment on above: Performed By: #### L IPA, NGA, CMP #### [facility] [address] [address] [address] Angela Aguero MPV 9.4 fL Critically low 9.5-13.5 [facility] Comment on above: Performed By: #### L IPA, NGA, CMP #### [facility] [address] [address] [address] Angela Aguero MYELOCYTE # Normal [facility] Comment on above: Performed By: #### L IPA, NGA, CMP #### [facility] [address] [place] [address] Dr. Angela Aguero MYELOCYTE % Normal [facility] Comment on above: Performed By: #### L IPA, NGA, CMP #### [facility] [address] [place] [address] Dr. Angela Aguero NRBC Normal [facility] Comment on above: Performed By: #### L IPA, NGA, CMP #### [facility] [address] [address] [address] Angela Aguero PLT 252 103/ul Normal 150-450 [facility] Comment on above: Performed By: #### L IPA, NGA, CMP #### [facility] [address] [address] [address] Angela Aguero RBC 4.40 106/ul Normal 4.20-5.40 [facility] Comment on above: Performed By: #### L IPA, GNA, CMP #### [facility] [address] [place] [address] Dr. Angela Aguero RDW 11.3 % Normal 11.0-15.0 [facility] Comment on above: Performed By: #### L IPA, NGA, CMP #### [facility] [address] [address] [address] Angela Aguero SEG # 6.44 103/ul Normal 1.40-6.50 [facility] Comment on above: Performed By: #### L NGA SMITH, CMP #### [facility] [address] [place] [address] Dr. Angela Aguero SEG % 92.0 % Critically high 43.0-75.0 [facility] Comment on above: Performed By: #### L NGA SMITH, CMP #### [facility] [address] [place] [address] Dr. Angela Aguero WBC 7.0 103/ul Normal 4.0-11.0 [facility] Comment on above: Performed By: #### L NGA SMITH, CMP #### [facility] [address] [place] [address] Dr. Angela Aguero ETHANOL (BLD ALC)on 03-26-20 ALC NOTE NOTE: 80 mg/dl is th e legal limit for a blood alcohol level Normal [facility] Comment on above: Performed By: #### L NGA SMITH, CMP #### [facility] [address] [place] [address] Dr. Angela Aguero Ethanol [Mass/Vol] mg/dL Normal [facility] Comment on above: Performed By: #### L NGA SMITH, CMP #### [facility] [address] [place] [address] Dr. Angela Aguero LIPASEon 03-26-2022 Lipase [Catalytic activity/Vol] 43.0 U/L Critically low 73.0-393.0 [facility] Comment on above: Performed By: #### L NGA SMITH, CMP #### [facility] [address] [place] [address] Dr. Angela Aguero PROF 14(COMP METB)on Albumin [Mass/Vol] 3.9 g/dL Normal 3.4-5.0 [facility] Comment on above: Performed By: #### L NGA SMITH, CMP #### [facility] [address] [place] [address] Dr. Angela Aguero Albumin/Globulin [Mass ratio] 0.9 {ratio} Normal [facility] Comment on above: Performed By: #### L IPA, NGA, CMP #### [facility] [address] [address] [address] Angela Aguero ALP [Catalytic activity/Vol] 129 U/L Critically high 46-116 [facility] Comment on above: Performed By: #### L IPA, NGA, CMP #### [facility] [address] [address] [address] Angela Aguero ALT [Catalytic activity/Vol] 143 U/L Critically high 14-59 [facility] Comment on above: Performed By: #### L IPA, NGA, CMP #### [facility] [address] [address] [address] Angela Aguero Anion gap [Moles/Vol] 16.4 mmol/L Normal [facility] Comment on above: Performed By: #### L IPA, NGA, CMP #### [facility] [address] [address] [address] Angela Aguero AST [Catalytic activity/Vol] 306 U/L Critically high 15-37 [facility] Comment on above: Performed By: #### L IPA, NGA, CMP #### [facility] [address] [address] [address] Angela Aguero Bilirubin [Mass/Vol] 1.7 mg/dL Critically high 0.2-1.0 [facility] Comment on above: Performed By: #### L IPA, NGA, CMP #### [facility] [address] [address] [address] Angela Aguero Calcium [Mass/Vol] 9.4 mg/dL Normal 8.5-10.1 [facility] Comment on above: Performed By: #### L IPA, NGA, CMP #### [facility] [address] [address] [address] Angela Aguero Chloride [Moles/Vol] 99 mmol/L Normal 98-107 [facility] Comment on above: Performed By: #### L IPA, NGA, CMP #### [facility] [address] [address] [address] Angela Aguero CO2 [Moles/Vol] 25.9 mmol/L Normal 21.0-32.0 [facility] Comment on above: Performed By: #### L IPA NGA, CMP #### [facility] [address] [place] [address] Dr. Angela Aguero Creatinine [Mass/Vol] 0.82 mg/dL Normal 0.55-1.02 [facility] Comment on above: Performed By: #### L IPA, NGA, CMP #### [facility] [address] [place] [address] Dr. Angela Aguero EGFR-AF ZAMBIAN >60 Normal >=60 [facility] Comment on above: Performed By: #### L IPA, NGA, CMP #### [facility] [address] [place] [address] Dr. Angela Aguero EGFR-NON AF ZAMBIAN >60 Normal >=60 [facility] Comment on above: Performed By: #### L IPA NGA, CMP #### [facility] [address] [place] [address] Dr. Angela Aguero Globulin (S) [Mass/Vol] 4.4 g/dL Normal [facility] Comment on above: Performed By: #### L IPA NGA, CMP #### [facility] [address] [place] [address] Dr. Angela Aguero Glucose [Mass/Vol] 207 mg/dL Critically high 74-106 [facility] Comment on above: Performed By: #### L IPA NGA, CMP #### [facility] [address] [place] [address] Dr. Angela Aguero Potassium [Moles/Vol] 3.3 mmol/L Critically low 3.5-5.1 [facility] Comment on above: Performed By: #### L IPA NGA, CMP #### [facility] [address] [place] [address] Dr. Angela Aguero Protein [Mass/Vol] 8.3 g/dL Critically high 6.4-8.2 [facility] Comment on above: Performed By: #### L IPA, NGA, CMP #### [facility] [address] [place] [address] Dr. Angela Aguero Sodium [Moles/Vol] 138 mmol/L Normal 136-145 [facility] Comment on above: Performed By: #### L NGA SMITH, CMP #### [facility] [id number] Angela Aguero Urea nitrogen [Mass/Vol] 5.0 mg/dL Critically low 7.0-18.0 [facility] Comment on above: Performed By: #### L NGA SMITH, CMP #### [facility] [id number] Angela Aguero Urea nitrogen/Creatinine [Mass ratio] 6.1 mg/mg Normal [facility] Comment on above: Performed By: #### L NGA SMITH, CMP #### [facility] [address] [address] [address] Angela Aguero Coding Summary.on 02-06-2022 Coding Summary. CD:[id number]:[id number] Gh0bW w+PGhlYWQ+QC0ACXMaM66lpHQ ngF2VD7nSLE6DPMHJXBRDCX8Y GC4vuAX5SAbwO2GzscRg OoggqHXsOS23IXj2IJP0oPtoW UhruA9gfUNsW5c1QhWjNZ25eP 20FIaoDXXtGjU0EaWtzzqehBS y C6uzKeYkoKNpIsk+PHRhYmxlI HdpZHRoPScxMDAlJyBzdHlsZT 5gFp0fYYFmLYJngCkkrTMoBbF j d1jgFKMcJCbiWK7zhBqbU9Mqj AH1VRWeb1a2Zq87jBH+PHRkIH S4lUkuAOdgp768NuSoq4itJFU 3 dFRjNTyiFGC9D17cl2V2VWUmE IZxCZB9uFP5hI5jnAhuvdkxJ1 UyxCSeXhW8AMH3uJPiwK9lfFp n olyvcI4dTpr+O31OMQ7KBMNLU X7HKba3D9DcCxrwhII+PC90YW LcWZ77mIUhnUHtv3tnkBs3JiH w HNFmVQA5iHlfVSict5GpHHPzD 35nySFrw9I4FDImmIihxXApSm JevKJ9wQ5lLFtqmuxns3ggqqu n Udqqg0idvf35gD97W86nNTlgK MKlHJO6GPWcUTJniVeekh0wrW 9wIi8+HHvkb5dtj2iaoEc6BuM w PUHlimQhfSssEHP5t7XoHw14F 8WvjAtzf5OiVjn7xv57yMBzk3 Q7pCM6OIrtBZWvjJ4iVVvgKuS 6 UBTxJjHfmE08vBXsMIauMi6od JgdvKptXK7xMXOwfnmuZFBowG 8rVXQluJSzlEciJC3rFBYnmbu m v326BwSnKCK1ZEXicPIeX4Khr N4zYtCpIOGwYFHwE4ZmuJLwAE ilU587UMvsPlF6IEBuqmIaK6G s RPNmyBtkCvD3j9G9Cu1Fr1Bei misXAQ8OKwgUKXmGbLjVvZfVv C6A0SaAzm8YIBpgKusQL6zA1I h FZZztvicjtoacYN5HDUsBUAbl O64yRWmBRnbJe4dw1V2h857YK XsLMTieB89Dg4ivHzbOXYfiZI U kX6ecsxhv9dzorcvGsPuLZWpE Vp4SIh9VJEfaCffKkHhRWK7Bs C7IJB9jCNbrQ6ibNszavcxsS8 w Oyc+I38byD7kMXZ4BZD0aevaL FEludJoTR33DK21D1BmVxnerA FibGU+MONrfxOfyBkcYN8vZtZ j f6hcc9DhXEqyR4QdXYQfRIzkQ oi3DKClPOA9eMK6aI7wFCZzDW lhp3J9gOP9G3DpypJedw5xi2b s UMTpRHcaN11cdIPwp1E1RLJkh CK2TJWrkNljMhVsyW86Ktg+PG OdqHzjg1NhSmfbs2byd0glqZr 9 ImRsBAWhrwMdeJivAHR9w3OsX a52N59fKIzvDNXgWTEyNLIjQQ XrgGtnpr4mkV8mVh1+PGNvbCB 3 hYN7nS3bPFGvWaZ9AOqkM377F vNzpZUgSeums6szw6pjiXh4Ig GpVGLjufUhzJtvHYK6a1IaKg6 8 O81bQGecMAWkWKSxZRPlNDAgl Qefhs8guA5dAs0+XK1lw9oshe 30iY22tIB+BFYpILO9eLpwNVz w DLCgyA2iPUtsFnW9AYXmDiKfa F37bQNtJSzdSc7mrHomkBqeJM 0eFNVcgvauz037UxXzn7zfYJJ w cVEaJMkyJNG0Q10ac8M3LVVeK IGkVZN7rEC2xY0afFpxflqwqU DspExfxgFcxRvaPHgwCKzwY82 6 IHRvcDsnPlBhdGllbnQgTmFtZ Qn5E8ZjEst7KVTfrIavSV9axC BlZCdzVw6ciEdrpDiwOC5aGPC p rhnxk548OeQwd0ejLQRikEVrP ZvqTHN4V78ab5Z2MGSzCLGkJX B5dBY7pJ7vnGzhdwtnfLLczDl g wwRanIgrWIlsNSluR994UWCix KjrEeAuccDxSCMhgVO1KW34DB 82wNFjg2W6wHS5Q4FvLROtvpf t nkvzsQF9AOCnWWTkoV99Hu6ti JbhFx6yRFJuGKA5DEEwrTMkA9 HhgY9hKxTkANCfSKRbL0VrjXF t VPdpB948NIutKyK4KUAwvhEnC 0UvOOJtnEalQfH3q4X5Ht9PU9 Y3ZN74MP39mXByz7X0pCM9W4J h EAFqskcvxrnksAI9IPVoGYIut A69Qi2vzAuhIy4vNUYvCVG2PL EnmRSeA4RdlD0lLmLbSFDxLZN w M8UthMWoEEimB625DRahLeQ1C VJhrxGeE1AqTIUxiXrqFpB9y2 S4Ao3MTNm7UO04DW15fIGgd6N 5 iXO7C4QfONHeehcojymvfHZ0M NCwRGShdA24Mv6keBbaYi1bUM LkNYU8KMCdoHWgP2FnrF2wUrT j OYXhFVQjE8ElwEDdBWszZ901P TedAkN2IVKxssOgE2DqDBXrqI rrOoJ4r7X4Ep4EIRMnCO43RPA 5 hNP1BM02QN49V8OsTpulgRMic +PHRhYmxlIHdpZHRoPScxMD HxKzXnqLbxMK5aTl3bXXWkPOF v cHykkYWmRcOer8puUJMmMXvsY T6wjWaqY0UjnKV1JSVsk0y1Jh 91P62vN3SmwPV+IHEyqKA3dCS 0 lN0uQcTyRlI6OWndP595CvKzf OExPvezu3gfw3twnBd2ChW8HU RlhlNlsSnyFAJ3h7QyDs94P28 s IHdpZHRoPSIxNSUiIHZhbGlnb d9kgQ2uOx4+CHVgbLW3xHG1hE 3aQoCfGvN4MXvwH587DrZmjFU v Xkwln5jkh0aqpLa1EnPwBIGhk cGzmUhsQIE9u5ZkEb83Y2YktP sxg2MdJxo5qr32kZVef0N0vKF 9 L8CxRRVhgzwdfTAnmCcjGU1lB RCgmfeqZFXsjJ1eWHOsC4r6Eb JxPqR8NZsiU4QdyaC3DBWvhFX g TCerXSH9V88ko2L3SCTpDYIzZ UA4aUS1tQ9xgCysgszqgWKouD uehoFtuFgkCSykUNeyN176GNJ v hQnlVVLadS6eCWLitLVvtByuG U3oAYAzyxtxJs0ONTpINVLRZD wwTE0DVpYHVQ31KW15xKMpy0A 5 vRY4K2NeCUOqgmwamfgxyVB9Z KEuYTQqvZ69iHUoZRvpSh6ta1 I9b342IFHuPNLxkZ93Ri0slRj g BWRkvIQFbG6hqppmy3dgdjdxX uHrEBVcRNk3JUi0IBWtyRrpQf NnLRH0XbQ3WTA9zVGdqI8anOp n phsuiN7xBlc+GWCpAKevISf3U TwvdGQ+EIOfGUV0qOgoKGzzSI WnhU0wUBJdF0q6HbTmZeT5QQx u H9OzBZFgwpxfGf37rA5hTkBqR fY0NHfrO1DegaV0HUVgvBXoCD hdOMD5C70bv6R5BVDmDHFdCLG 7 gJY7hO3dcDiefuusxRRpmTvab xQuwBkkBTlyAMkeR094FPMguO gaIfI4VOvmJAJzMP54OM14cWR g t6Q6qJO5A7FmZMMncmefewhen AI4YKHlCZDkkE30aWXiJHgbWz 2rc0A2l327GJBiVOHzqB82Sv0 u yBxqHGRyyIWCeA6ebazdw5xiu cwoJwDaSTUiDPb1VMn8XLThhS wvEsFfNLK4QsO8ZEV0vYUxmG8 h zVbofitqyQ0vQjk+RmVtYWxlP S70SG94qLFqs6Y1zKJ2T3HfEO LgzrnjqbbgeTT2TOCnYDMntN8 7 iNWhOSngAq9sm6G3i506TKFeQ WWgpN64Ug4xmGnqCUEkzDLEcO 0ztiiig3xyxgivCaSoSIJtUKf 0 SLx9UZBazXcvImSwGTI5WnW1E KG2uGOkkL8xkEwcftlkeY3lHo c+DR0kqqkjvzQ6TT72QH29W8Z y PjwvdGFibGU+PHRhYmxlIHdpZ CYsLJjvUZCcTkJibAbeKB4bTt 2rWJVeUEEidQxcyGMyIeCmc6o s QMUeCGhyXB5kuUelB8IfwXG5U KKkt0e9Mg96Z93cV2GjeGX+PG UlrTL5cKU2bW0fVgXjYnE8FNz p C329HbKqrXHpTuwxr0nae4dys Wf9ZfXgJGJvjyCinBbwDOY7e5 YuCx38A24gFXltAAVlMPYqUWD i OPYqtUsjpf4trZ4qAh1+PGNvb MB7fFZ3rX9iRpNlWfR0QPqiT5 60JmUhkLBlWabwF23kZ1LfqVZ + JPFoQqa4ZHZjcTvmSS1ciOQoG PsuNb4zGLJ4YbMnPcOlHTyxX1 QqUDIxsmdwynmyqQA0QUPcFHG w zQ30Mk3ewYkpPb3bZJYnVHO7I PYorBHqZ7VctX1rLiNvYTVvFI TdA8SxcZPpTBvsP392IWkyYtC 7 INRmliYvF0YjUZFznTofOaH3z 4Q0Ah1WgIdxbXRcTU2aUrLnIS v3B2YkHdk2WTUnpRbnVZ7itRR k SLmwBg6wvBayyYsiVS2nWRCaj itxf709IyOpe2zrMHFcsSHfAZ paIQX1K10qm9W3ZRUqFEVeOVC 7 gHL4pC7ekIgaxlvplVQhpVmcw cXrmBjpLVqlTUadU556KORwvY wmEoMVCau1M0VyRrc2RRRbyJv s UC6cfNCdTVwbPi1cjReszVkmY N2kTRIjsdxva661QvVfe0zsUE RbtOEnCUkhOBW6T73pa0U5WTB w CAJjYDQ2dET4rS6jiPvsudkyb GVmdDsgdmVydGljYWwtYWxpZ2 59XPBtbPhwEh8RHek3T7XdUqi 0 AVFfvNlvFB8lsTMqVQsxXh8ie QwwnQikUP4qFBBbaasai224Qc Frp7owHAAiyRGbETzrDSG9R71 s w5I7ZDHrEZEkXYZ5vFC2jI1cg GlnbjogbGVmdDsgdmVydGljYW yaJBkbM611YVQskVrbFaQivET y OjwvdGQ+BB21hm15Q0DaDmrmL jo4YGYwPYU6aBQ2eF2yUTXuYS yef5W3bYJ2D2TguaRsai1cx9z s YXBz (more content not included)... [facility] C Urineon 02-03-2022 Bacteria identified Cx [...] Locations R1: This test was performed at: [facility], [address] [place] [address], [id number] , , [facility] Comment on above: Performed By: #### 2 [id number], [id number] ####[place] [address] Auto Diffon 02-02-2022 Basophils/100 WBC (Bld) 0.9 % Normal 0.0-2.0 [facility] Comment on above: Order Comment: Order Added by Discern Expert. Performed By: #### 2 [id number], [id number], [id number], [id number] ####[address] [place] [address] Basophils/Leukocytes Auto (Bld) [Pure # fraction] 0.1 E9/L Normal 0.0-0.2 [facility] Comment on above: Order Comment: Order Added by Discern Expert. Performed By: #### 2 [id number], [id number], [id number], [id number], [id number] ####[address] [place] [address] Eosinophils/100 WBC (Bld) 0.6 % Normal 0.0-8.0 [facility] Comment on above: Order Comment: Order Added by Discern Expert. Performed By: #### 2 [id number], [id number], [id number], [id number], [id number], [id number] ####[address] [address] Eosinophils/Leukocytes Auto (Bld) [Pure # fraction] 0.0 E9/L Normal 0.0-0.5 [facility] Comment on above: Order Comment: Order Added by Discern Expert. Performed By: #### 2 [id number], [id number], [id number], [id number], [id number], [id number] ####[address] [place] [address] Lymphocytes/100 WBC (Bld) 22.1 % Normal 14.0-50.0 [facility] Comment on above: Order Comment: Order Added by Discern Expert. Performed By: #### 2 [id number], [id number], 1615910, [id number], [id number], [id number] ####[address] [place] [address] Lymphocytes/Leukocytes Auto (Bld) [Pure # fraction] 1.3 E9/L Normal 1.0-4.0 [facility] Comment on above: Order Comment: Order Added by Discern Expert. Performed By: #### 2 [id number], 6602576, [id number], 8733288, [id number], [id number] ####[facility] [id number] [place] [address] Monocytes/100 WBC (Bld) 9.5 % Normal 4.0-14.0 [facility] Comment on above: Order Comment: Order Added by Discern Expert. Performed By: #### 2 [id number], [id number], [id number], [id number], [id number], [id number] ####[address] [place] [address] Monocytes/Leukocytes Auto (Bld) [Pure # fraction] 0.6 E9/L Normal 0.2-1.0 [facility] Comment on above: Order Comment: Order Added by Discern Expert. Performed By: #### 2 538562, 3013819, 7613480, 4314034, [id number], [id number] ####[facility] [address] [place] [address] Neutrophils/100 WBC (Bld) 66.9 % Normal 36.0-75.0 [facility] Comment on above: Order Comment: Order Added by Discern Expert. Performed By: #### 2 039603, 0750718, 6262135, 4321337, [id number], 5977465 ####[address] [place] [address] Neutrophils/Leukocytes Auto (Bld) [Pure # fraction] 4.0 E9/L Normal 2.0-7.5 [facility] Comment on above: Order Comment: Order Added by Discern Expert. Performed By: #### 2 623023, 0200995, 0172660, 5812319, 65607256, 3783239 ####[facility] [address] [place] [address] B hCG Qualon 02-02-2022 Beta hCG Ql Negative Normal [facility] Comment on above: Performed By: #### 2 [id number] ####[facility] [address] [place] [address] BMPon 02-02-2022 Anion gap [Moles/Vol] 21 mmol/L High 6-16 [facility] Comment on above: Performed By: #### 2 022348, 8636467, 0776856, 6527337, 43093731, 0340676 ####[facility] [address] [place] [address] Calcium [Mass/Vol] 9.2 mg/dL Normal 8.9-11.1 [facility] Comment on above: Performed By: #### 2 957030, 2742092, 1669263, 3754785, 88413050, 3167800 ####[facility] [address] [place] [address] Chloride [Moles/Vol] 100 mmol/L Low 101-111 [facility] Comment on above: Performed By: #### 2 991567, 5288881, 3048621, 6183648, 57451792, 2503803 ####[facility] [address] [facility] [place] [address] CO2 [Moles/Vol] 20 mmol/L Low 21-31 [facility] Comment on above: Performed By: #### 2 197508, 0201909, 2344027, 7577229, 11359494, 4672547 ####[facility] [address] [place] [address] Creatinine [Mass/Vol] 0.7 mg/dL Normal 0.5-1.3 [facility] Comment on above: Performed By: #### 2 393522, 7816466, 1750612, 3551840, 46832577, 8418246 ####[facility] [address] [place] [address] Glucose [Mass/Vol] 176 mg/dL Normal 55-199 [facility] Comment on above: Result Comment: If t his glucose result represents a fasting glucose, interpretation should refer to the following reference range: 55-99 mg/dL Performed By: #### 2 198275, 0498918, 0313056, 9972779, 32692380, 7407235 ####[facility] [address] [place] [address] Potassium [Moles/Vol] 3.4 mmol/L Low 3.5-5.3 [facility] Comment on above: Performed By: #### 2 993777, 1752383, 5354033, 4306656, 08475373, 5726299 ####[facility] [address] [place] [address] Sodium [Moles/Vol] 138 mmol/L Normal 135-145 [facility] Comment on above: Performed By: #### 2 173959, 7145424, 5111277, 0404211, 21248549, 8054943 ####[facility] [address] [place] [address] Urea nitrogen [Mass/Vol] mg/dL Normal 5-21 [facility] Comment on above: Performed By: #### 2 104308, 0312005, 9333016, 0275262, 22683333, 3336625 ####[facility] [address] [place] [address] Urea nitrogen/Creatinine [Mass ratio] UTC Abnormal 10-20 [facility] Comment on above: Result Comment: Resu lt verified by Discern Rule. Performed result UTC (Unable to Calculate) was sent as an Alpha code due the inability to calculate a valid numeric value. Performed By: #### 2 884315, 9496018, 8719012, 7812386, 55880795, 0036763 ####[facility] [address] [place] [address] CBC w/ Auto Diffon Erythrocyte distribution width (RBC) [Ratio] 13.6 % Normal 10.9-14.2 [facility] Comment on above: Performed By: #### 2 728504, 6010415, 2176540, 6062727, 80131137, 4792032 ####[facility] [address] [place] [address] Hematocrit (Bld) [Volume fraction] 44.9 % Normal 34.0-46.0 [facility] Comment on above: Performed By: #### 2 047615, 0008186, 4552782, 3595241, 58605136, 9567964 ####[facility] [address] [place] [address] Hemoglobin (Bld) [Mass/Vol] 15.6 g/dL Normal 12.0-16.0 [facility] Comment on above: Performed By: #### 2 154517, 1741515, 8998691, 0367413, 83322130, 2964780 ####[place] [id number] MCH (RBC) [Entitic mass] 34.3 pg High 27.0-34.0 [facility] Comment on above: Performed By: #### 2 666864, 6583414, 1588626, 8585731, 01913590, 7319611 ####[place] [address]6457 MCHC (RBC) [Mass/Vol] 34.7 g/dL Normal 31.4-36.0 [facility] Comment on above: Performed By: #### 2 714021, 9757670, 4455283, 8057868, 01724421, 1991518 ####[place] [address]6457 MCV (RBC) [Entitic vol] 98.8 fL Normal 80.0-100.0 [facility] Comment on above: Performed By: #### 2 925295, 3331446, 0752156, 3988412, 09521931, 3455392 ####[place] [address] [place] [address] Platelet mean volume (Bld) [Entitic vol] 7.5 fL Normal 6.4-10.8 [facility] Comment on above: Performed By: #### 2 264399, 9483352, 0056061, 0272927, 98651890, 5151365 ####[facility] [address] [place] [address] Platelets (Bld) [#/Vol] 199.0 E9/L Normal 150.0-500. 0 [facility] Comment on above: Performed By: #### 2 132085, 6247395, 0180997, 3269576, 42057604, 6323937 ####[facility] [address] [place] [address] RBC (Bld) [#/Vol] 4.6 E12/L Normal 4.3-5.9 [facility] Comment on above: Performed By: #### 2 650413, 7621830, 2200198, 9240032, 29204899, 0309495 ####[facility] [address] [place] [address] WBC corrected for nucl RBC Auto (Bld) [#/Vol] 6.0 E9/L Normal 4.0-11.0 [facility] Comment on above: Performed By: #### 2 066240, 6603504, 8782060, 4966422, 95814389, 4244302 ####[facility] [address] [place] [address] CT Abdomen/Pelvis w/ Contras ton 02-02-2022 CT [...] 300 Contrast amount in ml's: 100 Normal [facility] Discharge Instructionson Discharge Instructions [id number]:12 7 Normal [facility] ED Clinical Summaryon 2021 ED Clinical Summary (Inserted Image. Jackie ble to display) [place] [id number] ED Clinical Summary Person Information Name: SHIKHA LOERA Melly/[facility] Age: 36 Years : 1985 Sex: Female Language: Montenegrin PCP: AVERY BLANCA CNP Marital Status: Visit [...] 02/02/2022 00:18:27 02/02/2022 00:18:27 02/02/2022 00:18:27 ADDRESS: [address] [place] [address] [phone] PHYS DOC NOTES: MEDICAL INFORMATION: Prescriptions Given: New Medications Printed Prescriptions acetaminophen-hydrocodone (Hayward 325 mg-5 mg oral tablet) 1 Tablets By Mouth every 6 hours as needed for pain. Refills: 0. sulfamethoxazole-trimetho prim (Bactrim DS 800 mg-160 mg Tab) 1 Tablets By Mouth 2 times a day for 10 Days. Refills: 0. PATIENT EDUCATION INFORMATION: Instructions: Pyelonephritis, Adult, Qrhr-pv-Wwzp Follow up: With: Address: When: AVERY BLANCA [address] [facility] [address] [place] [phone] Business (1) In 3 days 02/05/2022 Comments: You can use the pain medication every 6 hours as needed for pain, take the Bactrim twice daily until you have completed the course. Please follow-up with your primary care doctor the next 2 to 3 days. Please return to the ED for any new or worsening symptoms. DIAGNOSIS: Acute pyelonephritis Normal [facility] ED Note-Physicianon 02-03-20 22 ED Note-Physician Basic [...] Crohn's disease sees a GI doctor at [facility] who she is unsure of who this [...] home. Is given a short course of Hayward to go home with. She is given [...] hydroxide/Mg hydroxide/simethicone (more content not included)... Normal [facility] Comment on above: Result Comment: Elec tronically [...] you start to feel better. ? Take ssnz-jjj-pqoiqyc and prescription medicines only as told by [...] 05/03/2005 Document Revised: 01/28/2019 Document Reviewed: 01/28/2019 [employer] Patient Education ? 2020 [employer] Normal [facility] ED Patient Summaryon 022 ED Patient Summary (Inserted Image. Jackie ble to display) [place] [id number] Patient Discharge Instructions Person Information Name: SHIKHA LOERA Age: 36 Years Arrival Date: 02/01/2022 21:23:41 Discharge Diagnosis: Acute pyelonephritis Primary Care Physician: AVERY BLANCA CNP Provider Information Primary Provider: Judith Mock DO Advanced Building Construction Teacher:None The exam and treatment you received in the Emergency Department were for an urgent problem and are not intended as complete care. It is important that you follow up with a doctor, nurse practitioner, or physician?s recreational assistant for ongoing care. If your symptoms [...] With: Address: When: AVERY BLANCA [address] [facility] [address] [place] [address] [phone] Business (1) In 3 days 02/05/2022 Comments: [...] participating provider. Patient Education Materials: Pyelonephritis, Adult, Jska-vd-Tknj A MESSAGE TO ALL PATIENTS REGARDING OPIOIDS PRESCRIPTION OPIOIDS: WHAT YOU NEED TO KNOW Prescription opioids can be used to help relieve olzbskme-yz-gklliu pain and are often prescribed following a [...] (www.fda.gov/Drugs/Resour cesForYou). (more content not included)... Normal [facility] Hep Func Panelon 02-02-2022 Albumin [Mass/Vol] 4.5 g/dL Normal 3.3-5.0 [facility] Comment on above: Performed By: #### 2 795500, 5572541, 4837087, 3479383, 61544171, 8841415 ####[facility] [address] [place] [address] Albumin/Globulin (S) [Mass conc ratio] 1.1 Normal 1.1-2.2 [facility] Comment on above: Performed By: #### 2 006123, 0977389, 0231747, 7224041, 75047874, 0091603 ####[place] [address] [place] [address] ALP [Catalytic activity/Vol] 98 Int._Unit/L Normal 21-98 [facility] Comment on above: Performed By: #### 2 652029, 8633201, 3262623, 9826152, 86183940, 8770258 ####[address] [address] ALT No additional P-5'-P [Catalytic activity/Vol] 57 Int._Unit/L High 6-46 [facility] Comment on above: Performed By: #### 2 049210, 1153152, 0992532, 5406714, 68274383, 1942632 ####[address] [address] AST [Catalytic activity/Vol] 157 Int._Unit/L High 5-43 [facility] Comment on above: Performed By: #### 2 283960, 1145550, 5996444, 9453115, 42359562, 9795869 ####[address] [address] Bilirubin [Mass/Vol] 1.4 mg/dL High 0.0-1.1 [facility] Comment on above: Performed By: #### 2 143944, 5331173, 3233828, 1910467, 59521779, 4846064 ####[address] [address] Bilirubin.direct [Mass/Vol] 0.5 mg/dL High 0.1-0.4 [facility] Comment on above: Performed By: #### 2 680133, 0643972, 3326394, 4250501, 17589590, 0652734 ####[facility] [address] [place] [address] Bilirubin.indirect [Mass or moles/Vol] 0.9 mg/dL Normal 0.1-0.9 [facility] Comment on above: Performed By: #### 2 073912, 6085418, 5306895, 8263594, 50566752, 1724674 ####[facility] [address] [place] [address] Globulin (S) [Mass/Vol] 4.1 g/dL High 1.4-4.0 [facility] Comment on above: Performed By: #### 2 180153, 0674019, 2267570, 8271333, 78250921, 9278688 ####[facility] [address] [place] [address] Protein [Mass/Vol] 8.6 g/dL High 6.0-7.8 [facility] Comment on above: Performed By: #### 2 661139, 5164595, 6134292, 0044424, 46800139, 5777907 ####[place] [address] [place] [address] Lipase Levelon 02-02-2022 Lipase [Catalytic activity/Vol] 57 U/L Normal 13-58 [facility] Comment on above: Performed By: #### 2 813918, 3578372, 0751656, 5524750, 62936611, 1854502 ####[facility] [address] [place] [address] Prescriptions/Work Noteson 1 Prescriptions/Work Notes [id number]#[id number]:12 7 Normal [facility] RAD - Preliminary Cat Scan R eporton 02-02-2022 RAD - Preliminary Cat Scan Report [id number]#[id number]:12 7 Normal [facility] UA With Cult Reflexon 2021 Bacteria LM Ql (Urine sed) 2+ /HPF Abnormal Trace [facility] Comment on above: Performed By: #### 2 232871, 39991354 ####[facility] [address] [place] [address] Bilirubin Ql (U) Negative Normal Negative [facility] Comment on above: Performed By: #### 2 924018, 02300630 ####[facility] [address] [place] [address] Clarity (U) SL CLOUDY Invalid Interpretation Code [facility] Comment on above: Performed By: #### 2 023768, 60240987 ####[facility] [address] [place] [address] Color (U) YELLOW Normal Yellow [facility] Comment on above: Performed By: #### 2 018421, 39512005 ####[facility] [address] [place] [address] Epithelial cells.squamous LM.HPF (Urine sed) [#/Area] 3-4 Normal 0-2 [facility] Comment on above: Performed By: #### 2 612083, 09867997 ####[facility] [address] [place] [address] Glucose Test strip (U) [Mass/Vol] Negative Normal Negative [facility] Comment on above: Performed By: #### 2 255711, 92458996 ####[facility] [address] [place] [address] Hemoglobin Ql (U) 1+ Abnormal Negative [facility] Comment on above: Performed By: #### 2 276703, 15196563 ####[facility] [address] [place] [address] Ketones (U) [Mass/Vol] Negative Normal Negative [facility] Comment on above: Performed By: #### 2 655379, 48180873 ####[facility] [address] [place] [address] Short.plasma/Short .RBC (Bld) [Mass ratio] 4-20 Normal 0-3 [facility] Comment on above: Performed By: #### 2 944353, 87706722 ####[facility] [address] [place] [address] Nitrite Ql (U) Negative Normal Negative [facility] Comment on above: Performed By: #### 2 347069, 22106445 ####[facility] [address] [place] [address] pH (U) 5.0 [pH] Invalid Interpretation Code 5.0-9.0 [facility] Comment on above: Performed By: #### 2 542653, 77232694 ####[facility] [address] [place] [address] Protein (U) [Mass/Vol] Negative Normal Negative [facility] Comment on above: Performed By: #### 2 805571, 95874460 ####[place] [address] Specific gravity (U) [Rel density] <=1.005 Invalid Interpretation Code 1.005-1.03 0 [facility] Comment on above: Performed By: #### 2 305975, 00356526 ####[place] [address] Type of Urine collection method Clean Catch Normal [facility] Comment on above: Performed By: #### 2 266437, 06582546 ####[place] [address] Urobilinogen Qn (U) 0.2 {Concetta'U}/dL Normal 0.0-1.0 [facility] Comment on above: Performed By: #### 2 884099, 10386618 ####[place] [address]6457 WBC Auto Ql (U) 2+ Abnormal Negative [facility] Comment on above: Performed By: #### 2 102543, 64164806 ####[facility] [address] [place], [place] [address] WBC LM.HPF (Urine sed) [#/Area] 26-30 Abnormal 0-5 [facility] Comment on above: Performed By: #### 2 028888, 87113910 ####[facility] [address] [place] [address] US Gallbladderon 02-02-2022 US Gallbladder Exam Date/Time: [...] V. Transcribed by: BENNY Technologist: MLE Normal [facility] eGFRon 02-02-2022 GFR/1.73 sq M.predicted among blacks MDRD (S/P/Bld) [Vol rate/Area] mL/min/{1.73_m2} Normal >=59 [facility] Comment on above: Order Comment: Order added by Discern Expert. Result Comment: eGFR is race adjusted. AA=. Performed By: #### 2 479142, 5371965, 9983284, 0505404, 06298612, 8508913 ####[facility] [address] [place] [address] GFR/1.73 sq M.predicted among non-blacks MDRD (S/P/Bld) [Vol rate/Area] mL/min/{1.73_m2} Normal >=59 [facility] Comment on above: Order Comment: Order added by Discern Expert. Result Comment: Logistics Supervisor cj kidney disease could be indicated at eGFR's of less than 60 mL/min/1.73m2. Kidney failure is indicated at less than 15 mL/min/1.73m2. Performed By: #### 2 698087, 8149370, 6676438, 3896156, 65341365, 6347796 ####[facility] [address] [place] [address] CHEMISTRYOrdered By: Jorge ruby on 02-01-2022 Albumin [...] [Mass/Vol] mg/dL Normal 5 - 21 mg/dL [facility] [place] Remisol CHEMISTRYOrdered By: SYSTEM SYSTEM on 02-01-2022 GFR/1.73 sq M.predicted among blacks MDRD (S/P/Bld) [Vol rate/Area] mL/min/1.73 m2 Normal >=59mL/min /1.73 m2 [facility] [place] Chem S GFR/1.73 sq M.predicted among non-blacks MDRD (S/P/Bld) [Vol rate/Area] mL/min/1.73 m2 Normal >=59mL/min /1.73 m2 [facility] [place] Chem S Urea nitrogen/Creatinine [Mass ratio] Unable to Calculate Invalid Interpretation Code [facility] [place] Remisol Consent for Treatmenton 01-08 Consent for Treatment [id number]#[id number]:12 7 Normal [facility] HEMATOLOGYOrdered By: SYSTEM SYSTEM on 02-01-2022 Basophils/100 [...] Nom (U) >100,000 cfu/ml Gram Negative [employer] Leader species [facility] SEROLOGYOrdered By: Jorge pop on 02-01-2022 Beta hCG Ql Negative (02/01/22 9:55 PM) Normal [facility] [place] Man Sero URINALYSISOrdered By: Jorge Esquivel on [...] PM) Normal Negative [facility] UA Auto SS Short.plasma/Short .RBC (Bld) [Mass ratio] 4-20 /HPF Normal [...] [facility] UA Auto SS Urobilinogen Qn (U) 0.1594848 {Concetta'U}/dL Normal 0.0 - 1.0 EU/dL [facility] UA Auto SS WBC Auto Ql (U) 2+ *ABN* (02/01/22 11:42 PM) Invalid Interpretation Code Negative [facility] UA Auto SS WBC LM.HPF (Urine sed) [#/Area] 26-30 /HPF Invalid Interpretation Code 0-5/HPF [facility] [place] UA Auto SS Albumin [Mass/volume] in Ser um or PlasmaOrdered By: Delfino Reese on 01-18-2022 Albumin [Mass/Vol] 3.8 g/dL 3.2-5.5 [facility] C reactive protein [Mass/vol ume] in Serum or PlasmaOrdered By: Delfino Reese on 01-18-2022 CRP [Mass/Vol] 1.9 mg/dL 0.0-1.0 [facility] Creatinine and Glomerular fi ltration rate.predicted panel (S/P/Bld)Ordered By: Delfino Reese on 01-18-2022 Creatinine [Mass/Vol] 0.57 mg/dL 0.44-1.03 [facility] Erythrocyte sedimentation ra te by Photometric methodOrdered By: Delfino Reese on 01-18-2022 ESR Photometric method (Bld) [Velocity] 8 mm/hr 0-19 [facility] Estimated glomerular filtrat ion rate (GFR) non- AmericanOrdered By: Delfino Reese on 01-18-2022 GFR/1.73 sq M.predicted among non-blacks MDRD (S/P/Bld) [Vol rate/Area] > 60 mL/Min [facility] Folate [Mass/volume] in Seru m or PlasmaOrdered By: Delfino Reese on 01-18-2022 Folate [Mass/Vol] 10.4 ng/mL >5.9 [facility] Comment on above: Folate reference ran ge: >5.9 ng/mlThe WHO technical consultation on folate and vitamin [id number] has determined that folate concentrations lessthan 4 ng/ml are considered deficient. Globulin Calc (S) [Mass/Vol] Ordered By: Delfino Reese on 01-18-2022 Globulin (S) [Mass/Vol] 3.2 g/dL [facility] Laboratory - Chemistry and C hemistry - challengeOrdered By: Delfino Reese on 01-18-2022 Cobalamin (Vitamin B12) [Mass/Vol] 588 pg/mL 180-914 [facility] No Panel InformationOrdered By: Delfino Reese on 01-18-2022 Estimated GFR () > 60 mL/Min [facility] Comment on above: GFR estimated refere nce range: According to KDOQI guidelines, <60 ml/min/1.73m2 is sufficient to diagnose a patient with chronic kidney disease. Pharmacy Creatinine Clearance (Chem N/A [facility] Protein [Mass/volume] in Ser um or PlasmaOrdered By: Delfino Reese on 01-18-2022 Protein [Mass/Vol] 7.0 g/dL 6.1-7.9 [facility] Serum or plasma alanine montes otransferase measurement without P-5'-P (enzymatic activiOrdered By: Delfino Reese on 01-18-2022 ALT No additional P-5'-P [Catalytic activity/Vol] 58 U/L [facility] Serum or plasma albumin/glob ulin mass ratioOrdered By: Delfino Reese on 01-18-2022 Albumin/Globulin [Mass ratio] 1.2 {ratio} [facility] Serum or plasma alkaline florencio sphatase measurement (enzymatic activity/volume)Ordered By: Delfino Reese on 01-18-2022 ALP [Catalytic activity/Vol] 90 U/L 32-92 [facility] Serum or plasma anion gap de terminationOrdered By: Delfino Reese on 01-18-2022 Anion gap [Moles/Vol] 16.5 mmol/L 6.0-15.0 [facility] Serum or plasma aspartate am inotransferase measurement (enzymatic activity/volume)Ordered By: Delfino Reese on 01-18-2022 AST [Catalytic activity/Vol] 84 U/L [facility] Serum or plasma calcium archie urement (mass/volume)Ordered By: Delfino Reese on 01-18-2022 Calcium [Mass/Vol] 9.2 mg/dL 8.2-10.2 [facility] Serum or plasma chloride luz surement (moles/volume)Ordered By: Delfino Reese on 01-18-2022 Chloride [Moles/Vol] 105 mmol/L 95-114 [facility] Serum or plasma glucose archie urement (mass/volume)Ordered By: Delfino Reese on 01-18-2022 Glucose [Mass/Vol] 114 mg/dL 70-100 [facility] Comment on above: ADA recommended refe rence rangeRandom Glucose Reference Range is dependent on time and content of last meal. Glucose of more than 200 mg/dL in a nonstressed, ambulatory subject supports the diagnosis of Diabetes Mellitus. Serum or plasma potassium me asurement (moles/volume)Ordered By: Delfino Reese on 01-18-2022 Potassium [Moles/Vol] 3.5 mmol/L 3.5-5.1 [facility] Serum or plasma sodium measu rement (moles/volume)Ordered By: Delfino Reese on 01-18-2022 Sodium [Moles/Vol] 143 mmol/L 136-146 [facility] Serum or plasma total biliru bin measurement (mass/volume)Ordered By: Delfino Reese on 01-18-2022 Bilirubin [Mass/Vol] 0.8 mg/dL 0.3-1.2 [facility] Serum or plasma total carbon dioxide measurement (moles/volume)Ordered By: Delfino Reese on 01-18-2022 CO2 [Moles/Vol] 25.0 mmol/L 22.0-30.0 [facility] Serum or plasma urea nitroge n measurement (mass/volume)Ordered By: Delfino Reese on 01-18-2022 Urea nitrogen [Mass/Vol] 1 mg/dL 9-23 [facility] TSH DL <= 0.005 mIU/L QnOrde red By: Delfino Reese on 01-18-2022 TSH Qn 7.46 m[IU]/L 0.45-5.33 [facility] Thyroxine (T4) free [Mass/vo lume] in Serum or PlasmaOrdered By: Delfino Reese on 01-18-2022 Free T4 [Mass/Vol] 0.71 ng/dL 0.61-1.12 [facility] Bacteria identified Anaer cx Nom (Unsp spec)Ordered By: Delfino Reese on 12-26-2021 Anaerobic microbial culture No Anaerobes Isolated 3 Days [facility] ABO and Rh group post transf usion reaction Nom (Bld)Ordered By: Delfino Reese on 12-23-2021 Microscopic observation Gram stain Nom (Unsp spec) [facility] Albumin [Mass/volume] in Cer ebral spinal fluidOrdered By: Delfino Reese on 12-23-2021 Albumin (CSF) [Mass/Vol] 14 mg/dL 7-29 [facility] Albumin [Mass/volume] in Ser um or PlasmaOrdered By: Delfino Reese on 12-23-2021 Albumin [Mass/Vol] 4.2 g/dL 3.8-4.8 [facility] CSF IgG/albumin ratioOrdered By: Delfino Reese on 12-23-2021 IgG/Albumin (CSF) [Mass ratio] 0.10 0.00-0.25 [facility] Cerebrospinal fluid IgG inde xOrdered By: Delfino Reese on 12-23-2021 IgG clearance/Albumin clearance (S+CSF) [Ratio] 0.6 0.0-0.7 [facility] Cerebrospinal fluid glucose measurement (mass/volume)Ordered By: Delfino Reese on 12-23-2021 Glucose (CSF) [Mass/Vol] 87 mg/dL 40-70 [facility] Cerebrospinal fluid post-antonia trifugation appearance determinationOrdered By: Delfino Reese on 12-23-2021 Appearance (Spun CSF) Colorless Colorless [facility] Cerebrospinal fluid sample t ube volume measurementOrdered By: Delfino Reese on 12-23-2021 Specimen volume (CSF) 2.0 mL [facility] Color CSFOrdered By: Delfino Reese on 12-23-2021 Color (CSF) Colorless Colorless [facility] IgG [Mass/volume] in Cerebra l spinal fluidOrdered By: Delfino Reese on 12-23-2021 IgG (CSF) [Mass/Vol] 1.4 mg/dL 0.0-6.7 [facility] IgG [Mass/volume] in Serum o r PlasmaOrdered By: Delfino Reese on 12-23-2021 IgG [Mass/Vol] 708 mg/dL [phone] [facility] IgG synthesis rate [Mass/aleksey e] in Serum and CSF by calculationOrdered By: Delfino Reese on 12-23-2021 IgG synthesis rate Calc (S+CSF) [Mass/Time] -1.0 mg/day -9.9 TO +3.3 [facility] Comment on above: Performed at: [facility] [employer] [place] [address] [place], [place] [id number] Gun Stock Checker: Torsten Vidal PhD, Phone: [phone] Performed at: [facility] [employer] [id number] [place], [place] [id number] Director: Torsten Vidal PhD, Phone: [phone] Manual cerebrospinal fluid e rythrocytes count (number/volume)Ordered By: Delfino Reese on 12-23-2021 RBC Manual cnt (CSF) [#/Vol] 77 /uL [facility] Comment on above: The reference interv al and other method performance specifications have not been established for this body fluid. The test result must be integrated into the clinical context for interpretation. No Panel InformationOrdered By: Delfino Reese on 12-23-2021 CSF Appearance Clear Clear [facility] CSF Eosinophils N/A [facility] CSF Lymphocytes 1 [facility] Comment on above: The reference interv al and other method performance specifications have not been established for this body fluid. The test result must be integrated into the clinical context for interpretation. CSF Monocytes 1 [facility] Comment on above: The reference interv al and other method performance specifications have not been established for this body fluid. The test result must be integrated into the clinical context for interpretation. CSF Myelin Basic Protein 3.3 ng/mL 0.0-3.7 [facility] Comment on above: Results of this test are labeled for research purposes only by the assay's program/music director. The performance characteristics of this assay have not been established by the program/music director. The result should not be used for treatment or for diagnostic purposes without confirmation of the diagnosis by another medically established diagnostic product or procedure. The performance characteristics were determined by [employer]. Performed at: [address] [id number] [employer] Stock Checker: Charlie Manriquez MD, Phone: [phone] Results of this test are labeled for research purposes onlyby the assay's program/music director. The performancecharacteristics of this assay have not been established bythe program/music director. The result should not be used fortreatment or for diagnostic purposes without confirmationof the diagnosis by another medically establisheddiagnostic product or procedure. The performancecharacteristics were determined by [facility] [employer].Performed at: - [address] [id number] Director: Charlie Manriquez MD, Phone: [phone] CSF Neutrophils N/A [facility] CSF Total Cells Counted 2 [facility] CSF Tube Number Tube number: 1 [facility] Nucleated cells [#/volume] i n Cerebral spinal fluid by Manual countOrdered By: Delfino Reese on 12-23-2021 Nucleated cells Manual cnt (CSF) [#/Vol] 0.002 10*3/uL 0-5 [facility] Protein [Mass/volume] in Cer ebral spinal fluidOrdered By: Delfino Reese on 12-23-2021 Protein (CSF) [Mass/Vol] 23 mg/dL 15-45 [facility] Protein fractions.oligoclona l bands.intrathecal [Presence] in Serum and CSFOrdered By: Delfino Reese on 12-23-2021 Protein fractions.oligoclonal bands.intrathecal Ql (S+CSF) See comment . [facility] Comment on above: Zero (0) oligoclonal bands [...] Focusing (IEF) and immunoblotting methodology. Performed at: [address] [id number] [employer] Checker: Torsten Vidal PhD, Phone: [phone] Zero (0) oligoclonal bands were observed in [...] using IsoelectricFocusing (IEF) and immunoblotting methodology.Performed at: [address] [id number] Director: Torsten Vidal PhD, Phone: [phone] Basophils Auto (Bld) [#/Vol] Ordered By: Avery Blanca on 11-25-2021 Basophils (Bld) [#/Vol] 0.0 10*3/uL 0.0-0.2 [facility] Basophils/100 WBC Auto (Bld) Ordered By: Avery Blanca on 11-25-2021 Basophils/100 WBC (Bld) 0.5 % . [facility] Blood hemoglobin measurement (mass/volume)Ordered By: Avery Blanca on 11-25-2021 Hemoglobin (Bld) [Mass/Vol] 15.4 g/dL 11.8-15.4 [facility] Blood leukocytes automated c ount (number/volume)Ordered By: Avery Blanca on 11-25-2021 WBC (Bld) [#/Vol] 5.3 10*3/uL 4.5-11.0 [facility] Blood thiamine measurement ( moles/volume)Ordered By: Avery Blanca on 11-25-2021 Thiamine (Bld) [Moles/Vol] 113.7 nmol/L 66.5-200.0 [facility] Comment on above: This test was develo ped and its performance characteristics determined by [facility] It has not been cleared or approved by the Food and Drug Administration. Performed at: [address] [id number] Gun Stock Checker: Charlie Manriquez MD, Phone: [phone] This test was develo ped and its performance characteristicsdetermined by [facility]. It has not been cleared orapproved by the Food and Drug Administration.Performed at: [facility] [employer] [id number] Director: Charlie Manriquez MD, Phone: [phone] Body fluid albumin measureme nt (mass/volume)Ordered By: Avery Blanca on 11-25-2021 Albumin (Body fld) [Mass/Vol] 4.0 g/dL 3.2-5.5 [facility] Creatinine and Glomerular fi ltration rate.predicted panel (S/P/Bld)Ordered By: Avery Blanca on 11-25-2021 Creatinine [Mass/Vol] 0.67 mg/dL 0.44-1.03 [facility] Eosinophils Auto (Bld) [#/Vo l]Ordered By: Avery Blanca on 11-25-2021 Eosinophils (Bld) [#/Vol] 0.1 10*3/uL 0.0-0.45 [facility] Eosinophils/100 WBC Auto (Bl d)Ordered By: Avery Blanca on 11-25-2021 Eosinophils/100 WBC (Bld) 1.3 % . [facility] Erythrocyte distribution wid th Auto (RBC) [Ratio]Ordered By: Avery Blanca on 11-25-2021 Erythrocyte distribution width (RBC) [Ratio] 13.5 % 11.9-15.3 [facility] Erythrocyte sedimentation ra te by Photometric methodOrdered By: Avery Blanca on 11-25-2021 ESR Photometric method (Bld) [Velocity] 14 mm/hr 0- [facility] Estimated glomerular filtrat ion rate (GFR) non- AmericanOrdered By: Avery Blanca on 11-25-2021 GFR/1.73 sq M.predicted among non-blacks MDRD (S/P/Bld) [Vol rate/Area] > 60 mL/Min [facility] Folate [Mass/volume] in Seru m or PlasmaOrdered By: Avery Blanca on 11-25-2021 Folate [Mass/Vol] 9.2 ng/mL >5.9 [facility] Comment on above: Folate reference ran ge: >5.9 ng/ml The WHO technical consultation on folate and vitamin b12 deficiencies has determined that folate concentrations less than 4 ng/ml are considered deficient. Folate reference ran ge: >5.9 ng/mlThe WHO technical consultation on folate and vitamin [id number] has determined that folate concentrations lessthan 4 ng/ml are considered deficient. Globulin Calc (S) [Mass/Vol] Ordered By: Avery Blanca on 11-25-2021 Globulin (S) [Mass/Vol] 2.9 g/dL [facility] Hematocrit Auto (Bld) [Volum e fraction]Ordered By: Avery Blanca on 11-25-2021 Hematocrit (Bld) [Volume fraction] 45.2 % 34.0-46.4 [facility] Laboratory - Chemistry and C hemistry - challengeOrdered By: Avery Blanca on 11-25-2021 Cobalamin (Vitamin B12) [Mass/Vol] 421 pg/mL 180-914 [facility] Laboratory - Hematology and Cell countsOrdered By: Avery Blanca on 11-25-2021 Nucleated RBC/100 WBC (Bld) [Ratio] 0.6 % 0-0.5 [facility] Lymphocytes Auto (Bld) [#/Vo l]Ordered By: Avery Blanca on 11-25-2021 Lymphocytes (Bld) [#/Vol] 0.8 10*3/uL 1.00-4.8 [facility] Lymphocytes/100 WBC Auto (Bl d)Ordered By: Avery Blanca on 11-25-2021 Lymphocytes/100 WBC (Bld) 14.8 % . [facility] MCH Auto (RBC) [Entitic mass ]Ordered By: Avery Blanca on 11-25-2021 MCH (RBC) [Entitic mass] 32.3 pg 24.7-34.3 [facility] MCHC Auto (RBC) [Mass/Vol]Or dered By: Avery Blanca on 11-25-2021 MCHC (RBC) [Mass/Vol] 34.0 g/dL 32.0-35.0 [facility] MCV Auto (RBC) [Entitic vol] Ordered By: Avery Blanca on 11-25-2021 MCV (RBC) [Entitic vol] 95.1 fL 80-100 [facility] Monocytes Auto (Bld) [#/Vol] Ordered By: Avery Blanca on 11-25-2021 Monocytes (Bld) [#/Vol] 0.2 10*3/uL 0.0-0.8 [facility] Monocytes/100 WBC Auto (Bld) Ordered By: Avery Blanca on 11-25-2021 Monocytes/100 WBC (Bld) 3.4 % . [facility] Neutrophils Auto (Bld) [#/Vo l]Ordered By: Avery Blanca on 11-25-2021 Neutrophils (Bld) [#/Vol] 4.2 10*3/uL 1.8-7.7 [facility] Neutrophils/100 WBC Auto (Bl d)Ordered By: Avery Blanca on 11-25-2021 Neutrophils/100 WBC (Bld) 80.0 % . [facility] No Panel InformationOrdered By: Avery Blanca on 11-25-2021 Estimated GFR () > 60 mL/Min [facility] Comment on above: GFR estimated refere nce range: According to KDOQI guidelines, <60 ml/min/1.73m2 is sufficient to diagnose a patient with chronic kidney disease. Pharmacy Creatinine Clearance (Chem N/A [facility] Platelet mean volume Auto (B ld) [Entitic vol]Ordered By: Avery Blanca on 11-25-2021 Platelet mean volume (Bld) [Entitic vol] 9.1 fL 6.3-10.7 [facility] Platelets Auto (Bld) [#/Vol] Ordered By: Avery Blanca on 11-25-2021 Platelets (Bld) [#/Vol] 210 10*3/uL 150-450 [facility] Protein [Mass/volume] in Ser um or PlasmaOrdered By: Avery Blanca on 11-25-2021 Protein [Mass/Vol] 6.9 g/dL 6.1-7.9 [facility] RBC Auto (Bld) [#/Vol]Ordere d By: Avery Blanca on 11-25-2021 RBC (Bld) [#/Vol] 4.75 10*6/uL 3.60-5.00 [facility] Serum or plasma alanine montes otransferase measurement without P-5'-P (enzymatic activiOrdered By: Avery Blanca on 11-25-2021 ALT No additional P-5'-P [Catalytic activity/Vol] 130 U/L 10-60 [facility] Serum or plasma albumin/glob ulin mass ratioOrdered By: Avery Blanca on 11-25-2021 Albumin/Globulin [Mass ratio] 1.4 {ratio} [facility] Serum or plasma alkaline florencio sphatase measurement (enzymatic activity/volume)Ordered By: Avery Blanca on 11-25-2021 ALP [Catalytic activity/Vol] 74 U/L 32-92 [facility] Serum or plasma aspartate am inotransferase measurement (enzymatic activity/volume)Ordered By: Avery Blanca on 11-25-2021 AST [Catalytic activity/Vol] 117 U/L 10-42 [facility] Serum or plasma calcium archie urement (mass/volume)Ordered By: Avery Blanca on 11-25-2021 Calcium [Mass/Vol] 9.6 mg/dL 8.2-10.2 [facility] Serum or plasma chloride luz surement (moles/volume)Ordered By: Avery Blanca on 11-25-2021 Chloride [Moles/Vol] 98 mmol/L 95-114 [facility] Serum or plasma glucose archie urement (mass/volume)Ordered By: Avery Blanca on 11-25-2021 Glucose [Mass/Vol] 121 mg/dL 70-100 [facility] Comment on above: ADA recommended refe [...] on 11-25-2021 Potassium [Moles/Vol] 3.6 mmol/L 3.5-5.1 [facility] Serum or plasma sodium measu rement (moles/volume)Ordered By: Avery Blanca on 11-25-2021 Sodium [Moles/Vol] 139 mmol/L 136-146 [facility] Serum or plasma total biliru bin measurement (mass/volume)Ordered By: Avery Blanca on 11-25-2021 Bilirubin [Mass/Vol] 0.8 mg/dL 0.3-1.2 [facility] Serum or plasma total carbon dioxide measurement (moles/volume)Ordered By: Avery Blanca on 11-25-2021 CO2 [Moles/Vol] 28.4 mmol/L 22.0-30.0 [facility] Serum or plasma urea nitroge n measurement (mass/volume)Ordered By: Avery Blanca on 11-25-2021 Urea nitrogen [Mass/Vol] 5 mg/dL 9-23 [facility] TSH DL <= 0.005 mIU/L QnOrde red By: Avery Blanca on 11-25-2021 TSH Qn 2.02 m[IU]/L 0.45-5.33 [facility] AMYLASEon 11-20-2021 Amylase [Catalytic activity/Vol] 15 U/L Critically low 25-115 [facility] Comment on above: Performed By: #### L IPA, NGA, CMP #### [facility] [address] [place] [address] Dr. Angela Aguero CBC W MANUAL DIFFon 11-21-19 22 ATYPICAL LYMPH # Normal [facility] Comment on above: Performed By: #### C KRISHAN #### [facility] [address] [address] [address] Angela Aguero ATYPICAL LYMPH % Normal [facility] Comment on above: Performed By: #### C KRISHAN #### [facility] [address] [address] [address] Angela Aguero BAND # 0.2 103/ul Normal 0.0-0.3 [facility] Comment on above: Performed By: #### C BCMAN #### [facility] [address] [place] [address] Dr. Angela Aguero BAND % 3 % Normal 0-5 [facility] Comment on above: Performed By: #### C BCMAN #### [facility] [address] [place] [address] Dr. Angela Aguero BASOM # 0.00 103/ul Normal 0.00-0.10 [facility] Comment on above: Performed By: #### C BCMAN #### [facility] [address] [place] [address] Dr. Angela Aguero BASOM % 0.0 % Critically low 0.2-2.0 [facility] Comment on above: Performed By: #### C BCSOLANGE #### [facility] [address] [place] [address] Dr. Angela Aguero BLAST # Normal [facility] Comment on above: Performed By: #### C KRISHAN #### [facility] [address] [place] [address] Dr. Angela Aguero BLAST % Normal [facility] Comment on above: Performed By: #### C BCSOLANGE #### [facility] [address] [place] [address] Dr. Angela Aguero CORRECTED WBC Normal 4.0-11.0 [facility] Comment on above: Performed By: #### C BCMAN #### [facility] [address] [place] [address] Dr. Angela Aguero EOS # 0.00 103/ul Normal 0.00-0.70 [facility] Comment on above: Performed By: #### C BCMAN #### [facility] [address] [place] [address] Dr. Angela Aguero EOS% 0.0 % Critically low 0.9-7.0 [facility] Comment on above: Performed By: #### C BCSOLANGE #### [facility] [address] [place] [address] Dr. Angela Aguero HCT 41.2 % Normal 36.0-48.0 [facility] Comment on above: Performed By: #### C KRISHAN #### [facility] [address] [place] [address] Dr. Angela Aguero HGB 14.2 g/dl Normal 12.0-16.0 [facility] Comment on above: Performed By: #### C KRISHAN #### [facility] [address] [place] [address] Dr. Angela Aguero LYMPHM # 0.19 103/ul Critically low 1.20-3.80 [facility] Comment on above: Performed By: #### C KRISHAN #### [facility] [address] [place] [address] Dr. Angela Aguero LYMPHM% 3.0 % Critically low 20.5-60.0 [facility] Comment on above: Performed By: #### C KRISHAN #### [facility] [address] [place] [address] Dr. Angela Aguero MCH 32.4 pg Normal 26.7-34.0 [facility] Comment on above: Performed By: #### C KRISHAN #### [facility] [address] [place] [address] Dr. Angela Aguero MCHC 34.5 g/dl Normal 29.9-35.2 [facility] Comment on above: Performed By: #### C KRISHAN #### [facility] [address] [place] [address] Dr. Angela Aguero MCV 94.1 fL Normal 81.0-99.0 [facility] Comment on above: Performed By: #### C KRISHAN #### [facility] [address] [place] [address] Dr. Angela Aguero METAMYELOCYTE # Normal [facility] Comment on above: Performed By: #### C KRISHAN #### [facility] [address] [place] [address] Dr. Angela Aguero METAMYELOCYTE % Normal [facility] Comment on above: Performed By: #### C KRISHAN #### [facility] [address] [address] [address] Angela Aguero MONOM# 0.32 103/ul Normal 0.30-0.80 [facility] Comment on above: Performed By: #### C KRISHAN #### [facility] [address] [place] [address] Dr. Angela Aguero MONOM% 5.0 % Normal 1.7-12.0 [facility] Comment on above: Performed By: #### C KRISHAN #### [facility] [address] [place] [address] Dr. Angela Aguero MPV 10.4 fL Normal 9.5-13.5 [facility] Comment on above: Performed By: #### C RKISHAN #### [facility] [address] [place] [address] Dr. Angela Aguero MYELOCYTE # Normal [facility] Comment on above: Performed By: #### Jeannette NICKERSON #### [facility] [address] [place] [address] Dr. Angela Aguero MYELOCYTE % Normal [facility] Comment on above: Performed By: #### C KRISHAN #### [facility] [address] [place] [address] Dr. Angela Aguero NRBC Normal [facility] Comment on above: Performed By: #### C KRISHAN #### [facility] [address] [place] [address] Dr. Angela Aguero PLT 204 103/ul Normal 150-450 [facility] Comment on above: Performed By: #### C KRISHAN #### [facility] [address] [place] [address] Dr. Angela Aguero RBC 4.38 106/ul Normal 4.20-5.40 [facility] Comment on above: Performed By: #### C KRISHAN #### [facility] [address] [place] [address] Dr. Angela Aguero RDW 12.4 % Normal 11.0-15.0 [facility] Comment on above: Performed By: #### C KRISHAN #### [facility] [address] [place] [address] Dr. Angela Aguero SEG # 5.70 103/ul Normal 1.40-6.50 [facility] Comment on above: Performed By: #### C KRISHAN #### [facility] [address] [address] [address] Angela Aguero SEG % 89.0 % Critically high 43.0-75.0 [facility] Comment on above: Performed By: #### C KRISHAN #### [facility] [address] [address] [address] Angela Aguero WBC 6.4 103/ul Normal 4.0-11.0 [facility] Comment on above: Performed By: #### C KRISHAN #### [facility] [address] [address] [address] Angela Aguero CRPon 11-20-2021 CRP [Mass/Vol] mg/L Normal <=1.0 [facility] Comment on above: Performed By: #### L NGA SMITH, CMP #### [facility] [address] [place] [address] Dr. Angela Aguero LIPASEon 11-20-2021 Lipase [Catalytic activity/Vol] 28.0 U/L Critically low 73.0-393.0 [facility] Comment on above: Performed By: #### L NGA SMITH, CMP #### [facility] [address] [place] [address] Dr. Angela Aguero PROF 14(COMP METB)on 022 Albumin [Mass/Vol] 3.4 g/dL Normal 3.4-5.0 [facility] Comment on above: Performed By: #### L NGA SMITH, CMP #### [facility] [address] [place] [address] Dr. Angela Aguero Albumin/Globulin [Mass ratio] 1.0 {ratio} Normal [facility] Comment on above: Performed By: #### L NGA SMITH, CMP #### [facility] [address] [place] [address] Dr. Angela Aguero ALP [Catalytic activity/Vol] 63 U/L Normal 46-116 [facility] Comment on above: Performed By: #### L IPA, NGA, CMP #### [facility] [address] [address] [address] Angela Aguero ALT [Catalytic activity/Vol] 55 U/L Normal 14-59 [facility] Comment on above: Performed By: #### L IPA, NGA, CMP #### [facility] [address] [address] [address] Angela Aguero Anion gap [Moles/Vol] 13.3 mmol/L Normal [facility] Comment on above: Performed By: #### L IPA, NGA, CMP #### [facility] [address] [address] [address] Angela Aguero AST [Catalytic activity/Vol] 39 U/L Critically high 15-37 [facility] Comment on above: Performed By: #### L IPA, NGA, CMP #### [facility] [address] [place] [address] Dr. Angela Aguero Bilirubin [Mass/Vol] 1.1 mg/dL Critically high 0.2-1.0 [facility] Comment on above: Performed By: #### L IPA, NGA, CMP #### [facility] [address] [place] [address] Dr. Angela Aguero Calcium [Mass/Vol] 7.9 mg/dL Critically low 8.5-10.1 [facility] Comment on above: Performed By: #### L IPA, NGA, CMP #### [facility] [address] [place] [address] Dr. Angela Aguero Chloride [Moles/Vol] 103 mmol/L Normal 98-107 [facility] Comment on above: Performed By: #### L IPA, NGA, CMP #### [facility] [address] [place] [address] Dr. Angela Aguero CO2 [Moles/Vol] 26.9 mmol/L Normal 21.0-32.0 [facility] Comment on above: Performed By: #### L IPA, NGA, CMP #### [facility] [address] [place] [address] Dr. Angela Aguero Creatinine [Mass/Vol] 0.81 mg/dL Normal 0.55-1.02 [facility] Comment on above: Performed By: #### L NGA SMITH, CMP #### [facility] [address] [place] [address] Dr. Angela Aguero EGFR-AF ZAMBIAN >60 Normal >=60 [facility] Comment on above: Performed By: #### L NGA SMITH, CMP #### [facility] [address] [address] [address] Angela Aguero EGFR-NON AF ZAMBIAN >60 Normal >=60 [facility] Comment on above: Performed By: #### L NGA SMITH, CMP #### [facility] [address] [place] [address] Dr. Angela Aguero Globulin (S) [Mass/Vol] 3.3 g/dL Normal [facility] Comment on above: Performed By: #### L NGA SMITH, CMP #### [facility] [address] [place] [address] Dr. Angela Aguero Glucose [Mass/Vol] 185 mg/dL Critically high 74-106 [facility] Comment on above: Performed By: #### L NGA SMITH, CMP #### [facility] [address] [place] [address] Dr. Angela Aguero Potassium [Moles/Vol] 3.2 mmol/L Critically low 3.5-5.1 [facility] Comment on above: Performed By: #### L NGA SMITH, CMP #### [facility] [address] [place] [address] Dr. Angela Aguero Protein [Mass/Vol] 6.7 g/dL Normal 6.4-8.2 [facility] Comment on above: Performed By: #### L NGA SMITH, CMP #### [facility] [address] [place] [address] Dr. Angela Aguero Sodium [Moles/Vol] 140 mmol/L Normal 136-145 [facility] Comment on above: Performed By: #### L NGA SMITH, CMP #### [facility] [address] [place] [address] Dr. Angela Aguero Urea nitrogen [Mass/Vol] 8.0 mg/dL Normal 7.0-18.0 [facility] Comment on above: Performed By: #### L IPA, NGA, CMP #### [facility] [address] [place] [address] Dr. Angela Aguero Urea nitrogen/Creatinine [Mass ratio] 9.9 mg/mg Normal [facility] Comment on above: Performed By: #### L IPA, NGA, CMP #### [facility] [address] [place] [address] Dr. Angela Aguero SED RATE WESTERGRENon 2021 SED RATE 3 mm/hr Normal <=20 [facility] Comment on above: Performed By: #### S EDR #### [facility] [address] [place] [address] Dr. Angela Aguero AMYLASEon 11-19-2021 Amylase [Catalytic activity/Vol] 17 U/L Critically low 25-115 [facility] Comment on above: Performed By: #### C MP, NGA, CRP, LIPA #### [facility] [address] [place] [address] Dr. Angela Aguero CBC AUTO DIFFon 11-19-2021 BASO # 0.0 103/ul Normal 0.0-0.1 [facility] Comment on above: Performed By: #### L IPA, NGA, CMP #### [facility] [address] [place] [address] Dr. Angela Aguero Basophils/100 WBC (Bld) 0.6 % Normal 0.2-2.0 [facility] Comment on above: Performed By: #### L IPA, NGA, CMP #### [facility] [address] [place] [address] Dr. Agnela Aguero EO # 0.0 103/ul Normal 0.0-0.7 [facility] Comment on above: Performed By: #### L IPA, NGA, CMP #### [facility] [address] [place] [address] Dr. Angela Aguero Eosinophils/100 WBC (Bld) 0.0 % Critically low 0.9-7.0 [facility] Comment on above: Performed By: #### L NGA SMITH, CMP #### [facility] [address] [place] [address] Dr. Angela Aguero Erythrocyte distribution width (RBC) [Ratio] 12.9 % Normal 11.0-15.0 [facility] Comment on above: Performed By: #### L NGA SMITH, CMP #### [facility] [address] [place] [address] Dr. Angela Aguero Hematocrit (Bld) [Volume fraction] 43.3 % Normal 36.0-48.0 [facility] Comment on above: Performed By: #### L NGA SMITH, CMP #### [facility] [address] [place] [address] Dr. Angela Aguero Hemoglobin (Bld) [Mass/Vol] 14.7 g/dL Normal 12.0-16.0 [facility] Comment on above: Performed By: #### L NGA SMITH, CMP #### [facility] [address] [place] [address] Dr. Angela Aguero IG # 0.02 10e3/ul Normal 0.00-0.03 [facility] Comment on above: Performed By: #### L NGA SMITH, CMP #### [facility] [address] [place] [address] Dr. Angela Aguero IG % 0.6 % Critically high 0.0-0.5 [facility] Comment on above: Performed By: #### L NGA SMITH, CMP #### [facility] [address] [place] [address] Dr. Angela Aguero LYMPH # 0.3 103/ul Critically low 1.2-3.8 [facility] Comment on above: Performed By: #### L NGA SMITH, CMP #### [facility] [address] [place] [address] Dr. Angela Aguero Lymphocytes/100 WBC (Bld) 8.9 % Critically low 20.5-60.0 [facility] Comment on above: Performed By: #### L NGA SMITH, CMP #### [facility] [address] [place] [address] Dr. Angela Aguero MANUAL DIFF REQ NO Normal [facility] Comment on above: Performed By: #### L NGA SMITH, CMP #### [facility] [address] [place] [address] Dr. Angela Aguero MCH (RBC) [Entitic mass] 32.5 pg Normal 26.7-34.0 [facility] Comment on above: Performed By: #### L NGA SMITH, CMP #### [facility] [address] [place] [address] Dr. Angela Aguero MCHC (RBC) [Mass/Vol] 33.9 g/dL Normal 29.9-35.2 [facility] Comment on above: Performed By: #### L NGA SMITH, CMP #### [facility] [address] [place] [address] Dr. Angela Aguero MCV (RBC) [Entitic vol] 95.6 fL Normal 81.0-99.0 [facility] Comment on above: Performed By: #### L NGA SMITH, CMP #### [facility] [address] [place] [address] Dr. Angela Aguero MONO # 0.0 103/ul Critically low 0.3-0.8 [facility] Comment on above: Performed By: #### L NGA SMITH, CMP #### [facility] [address] [place] [address] Dr. Angela Aguero Monocytes/100 WBC (Bld) 0.6 % Critically low 1.7-12.0 [facility] Comment on above: Performed By: #### L NGA SMITH, CMP #### [facility] [address] [place] [address] Dr. Angela Aguero NEUT # 3.1 103/ul Normal 1.4-6.5 [facility] Comment on above: Performed By: #### L NGA SMITH, CMP #### [facility] [address] [place] [address] Dr. Angela Aguero Neutrophils/100 WBC (Bld) 89.3 % Critically high 43.0-75.0 [facility] Comment on above: Performed By: #### L IPA, NGA, CMP #### [facility] [address] [address] [address] Angela Aguero Platelet mean volume (Bld) [Entitic vol] 10.6 fL Normal 9.5-13.5 [facility] Comment on above: Performed By: #### L IPA, NGA, CMP #### [facility] [address] [address] [address] Angela Aguero PLT 212 103/ul Normal 150-450 [facility] Comment on above: Performed By: #### L IPA, NGA, CMP #### [facility] [address] [address] [address] Angela Aguero RBC 4.53 106/ul Normal 4.20-5.40 [facility] Comment on above: Performed By: #### L IPA, NGA, CMP #### [facility] [address] [place] [address] Dr. Angela Aguero WBC 3.5 103/ul Critically low 4.0-11.0 [facility] Comment on above: Performed By: #### L IPA, NGA, CMP #### [facility] [address] [place] [address] Dr. Angela Aguero CRPon 11-19-2021 CRP [Mass/Vol] mg/L Normal <=1.0 [facility] Comment on above: Performed By: #### C MP, NGA, CRP, LIPA #### [facility] [address] [address] [address] Angela Aguero ER URINE PROFILEon 2 Bilirubin Ql (U) Negative Normal NEGATIVE [facility] Comment on above: Performed By: #### L IPA, NGA, CMP #### [facility] [address] [place] [address] Dr. Angela Aguero Clarity (U) CLEAR Normal CLEAR [facility] Comment on above: Performed By: #### L IPA, NGA, CMP #### [facility] [address] [place] [address] Dr. Angela Aguero Color (U) DK. ORANGE Abnormal YELLOW [facility] Comment on above: Performed By: #### L IPA NGA, CMP #### [facility] [address] [address] [address] Angela CARRASCO A micrscopic examina tion will be performed if indicated. Normal [facility] Comment on above: Performed By: #### L IPA NGA, CMP #### [facility] [address] [address] [address] Angela Aguero Glucose Ql (U) Negative Normal NEGATIVE [facility] Comment on above: Performed By: #### L IPA NGA, CMP #### [facility] [address] [address] [address] Angela Aguero Hemoglobin Ql (U) Negative Normal NEGATIVE [facility] Comment on above: Performed By: #### L IPA NGA, CMP #### [facility] [address] [place] [address] Dr. Angela Aguero Ketones Ql (U) 40 mg/dl Abnormal NEGATIVE [facility] Comment on above: Performed By: #### L IPA NGA, CMP #### [facility] [address] [place] [address] Dr. Angela Aguero LEUKOCYTES Negative Normal NEGATIVE [facility] Comment on above: Performed By: #### L IPA NGA, CMP #### [facility] [address] [place] [address] Dr. Angela Aguero Nitrite Ql (U) Negative Normal NEGATIVE [facility] Comment on above: Performed By: #### L IPA NGA, CMP #### [facility] [address] [place] [address] Dr. Angela Aguero pH (U) 5.5 [pH] Normal 5-9 [facility] Comment on above: Performed By: #### L IPA NGA, CMP #### [facility] [address] [place] [address] Dr. Angela Aguero Protein (U) [Mass/Vol] 30 mg/dL Abnormal NEGAT DARIO/ TRACE [facility] Comment on above: Performed By: #### L IPA NGA, CMP #### [facility] [address] [place] [address] Dr. Angela Aguero SPEC GRAVITY >=1.030 Abnormal 1.005-<=1. 025 [facility] Comment on above: Performed By: #### L IPANGA, CMP #### [facility] [address] [place] [address] Dr. Angela Aguero UR MICRO IND INDICATED Normal [facility] Comment on above: Performed By: #### L IPA NGA, CMP #### [facility] [address] [place] [address] Dr. Angela Aguero Urobilinogen Qn (U) 1.0 {Concetta'U}/dL Normal 0.2 - 1. 0 [facility] Comment on above: Performed By: #### L IPA NGA, CMP #### [facility] [address] [place] [address] Dr. Angela Aguero LIPASEon 11-19-2021 Lipase [Catalytic activity/Vol] 22.0 U/L Critically low 73.0-393.0 [facility] Comment on above: Performed By: #### C MP, NGA, CRP, LIPA #### [facility] [address] [place] [address] Dr. Angela Aguero PROF 14(COMP METB)on 022 Albumin [Mass/Vol] 3.7 g/dL Normal 3.4-5.0 [facility] Comment on above: Performed By: #### C MP, NGA, CRP, LIPA #### [facility] [address] [place] [address] Dr. Angela Aguero Albumin/Globulin [Mass ratio] 1.0 {ratio} Normal [facility] Comment on above: Performed By: #### C MP, NGA, CRP, LIPA #### [facility] [address] [place] [address] Dr. Angela Aguero ALP [Catalytic activity/Vol] 73 U/L Normal 46-116 [facility] Comment on above: Performed By: #### C MP, NGA, CRP, LIPA #### [facility] [address] [place] [address] Dr. Angela Aguero ALT [Catalytic activity/Vol] 78 U/L Critically high 14-59 [facility] Comment on above: Performed By: #### C MP, NGA, CRP, LIPA #### [facility] [address] [address] [address] Angela Aguero Anion gap [Moles/Vol] 16.5 mmol/L Normal [facility] Comment on above: Performed By: #### C MP, NGA, CRP, LIPA #### [facility] [address] [address] [address] Angela Aguero AST [Catalytic activity/Vol] 62 U/L Critically high 15-37 [facility] Comment on above: Performed By: #### C MP, NGA, CRP, LIPA #### [facility] [address] [place] [address] Dr. Angela Aguero Bilirubin [Mass/Vol] 1.3 mg/dL Critically high 0.2-1.0 [facility] Comment on above: Performed By: #### C MP, NGA, CRP, LIPA #### [facility] [address] [place] [address] Dr. Angela Aguero Calcium [Mass/Vol] 8.2 mg/dL Critically low 8.5-10.1 [facility] Comment on above: Performed By: #### C MP, NGA, CRP, LIPA #### [facility] [address] [place] [address] Dr. Angela Aguero Chloride [Moles/Vol] 101 mmol/L Normal 98-107 [facility] Comment on above: Performed By: #### C MP, NGA, CRP, LIPA #### [facility] [address] [place] [address] Dr. Angela Aguero CO2 [Moles/Vol] 23.5 mmol/L Normal 21.0-32.0 [facility] Comment on above: Performed By: #### C MP, NGA, CRP, LIPA #### [facility] [address] [place] [address] Dr. Angela Aguero Creatinine [Mass/Vol] 0.81 mg/dL Normal 0.55-1.02 [facility] Comment on above: Performed By: #### C MP, NGA, CRP, LIPA #### [facility] [address] [address] [address] Angela Aguero EGFR-AF ZAMBIAN >60 Normal >=60 [facility] Comment on above: Performed By: #### C MP, NGA, CRP, LIPA #### [facility] [address] [address] [address] Angela Aguero EGFR-NON AF ZAMBIAN >60 Normal >=60 [facility] Comment on above: Performed By: #### C MP, NGA, CRP, LIPA #### [facility] [address] [address] [address] Angela Aguero Globulin (S) [Mass/Vol] 3.7 g/dL Normal [facility] Comment on above: Performed By: #### C MP, NGA, CRP, LIPA #### [facility] [address] [address] [address] Angela Aguero Glucose [Mass/Vol] 190 mg/dL Critically high 74-106 [facility] Comment on above: Performed By: #### C MP, NGA, CRP, LIPA #### [facility] [address] [address] [address] Angela Aguero Potassium [Moles/Vol] 4.0 mmol/L Normal 3.5-5.1 [facility] Comment on above: Performed By: #### C MP, NGA, CRP, LIPA #### [facility] [address] [address] [address] Angela Aguero Protein [Mass/Vol] 7.4 g/dL Normal 6.4-8.2 [facility] Comment on above: Performed By: #### C MP, NGA, CRP, LIPA #### [facility] [address] [place] [address] Dr. Angela Aguero Sodium [Moles/Vol] 137 mmol/L Normal 136-145 [facility] Comment on above: Performed By: #### C MP, NGA, CRP, LIPA #### [facility] [address] [place] [address] Dr. Angela Aguero Urea nitrogen [Mass/Vol] 5.0 mg/dL Critically low 7.0-18.0 [facility] Comment on above: Performed By: #### C MP, NGA, CRP, LIPA #### [facility] [address] [place] [address] Dr. Angela Aguero Urea nitrogen/Creatinine [Mass ratio] 6.2 mg/mg Normal [facility] Comment on above: Performed By: #### C MP, NGA, CRP, LIPA #### [facility] [address] [place] [address] Dr. Angela Aguero SED RATE WESTERGRENon 2021 SED RATE 10 mm/hr Normal <=20 [facility] Comment on above: Performed By: #### L NGA SMITH, CMP #### [facility] [address] [place] [address] Dr. Angela Aguero URINE MICROSCOPIC ONLYon BACTERIA TRACE Abnormal NONE SEEN [facility] Comment on above: Performed By: #### L NGA SMITH, CMP #### [facility] [address] [place] [address] Dr. Angela Aguero Bacteria identified Cx Nom (U) NOT INDICATED Normal [facility] Comment on above: Performed By: #### L NGA SMITH, CMP #### [facility] [address] [place] [address] Dr. Angela Aguero CAST SEEN Abnormal NONE SEEN [facility] Comment on above: Performed By: #### L LUIS NGA, CMP #### [facility] [address] [place] [address] Dr. Angela Aguero Crystals LM Nom (Urine sed) NONE SEEN Normal NONE SEEN [facility] Comment on above: Performed By: #### L NGA SMITH, CMP #### [facility] [address] [place] [address] Dr. Angela Aguero Epithelial cells LM Ql (Urine sed) RARE Normal NONE SEEN /RARE [facility] Comment on above: Performed By: #### L IPA NGA, CMP #### [facility] [address] [place] [address] Dr. Angela Aguero FINE GRANULAR CAST RARE Normal [facility] Comment on above: Performed By: #### L IPA, NGA, CMP #### [facility] [address] [address] [address] Angela Aguero HYALINE CAST RARE Normal [facility] Comment on above: Performed By: #### L IPA, NGA, CMP #### [facility] [address] [address] [address] Angela Aguero MUCOUS TRACE Abnormal NONE SEEN [facility] Comment on above: Performed By: #### L IPA, NGA, CMP #### [facility] [address] [address] [address] Angela Aguero RBC NONE SEEN Abnormal 0-2 [facility] Comment on above: Performed By: #### L IPA NGA, CMP #### [facility] [address] [place] [address] Dr. Angela Aguero WBC NONE SEEN Normal NONE SEEN [facility] Comment on above: Performed By: #### L IPA NGA, CMP #### [facility] [address] [place] [address] Dr. Angela Aguero AMYLASEon 11-18-2021 Amylase [Catalytic activity/Vol] 20 U/L Critically low 25-115 [facility] Comment on above: Performed By: #### L IPA NGA, CMP #### [facility] [address] [place] [address] Dr. Angela Aguero BILIRUBIN CONJUGATED (DIRECT )on 11-18-2021 BILI, CONJUGATED 0.4 mg/dL Critically high 0.0-0.2 [facility] Comment on above: Performed By: #### L IPA NGA, CMP #### [facility] [address] [address] [address] Angela Aguero CBC AUTO DIFFon 11-18-2021 BASO # 0.1 103/ul Normal 0.0-0.1 [facility] Comment on above: Performed By: #### L IPA NGA, CMP #### [facility] [address] [address] [address] Angela Aguero Basophils/100 WBC (Bld) 2.4 % Critically high 0.2-2.0 [facility] Comment on above: Performed By: #### L NGA SMITH, CMP #### [facility] [address] [place] [address] Dr. Angela Aguero EO # 0.0 103/ul Normal 0.0-0.7 [facility] Comment on above: Performed By: #### L NGA SMITH, CMP #### [facility] [address] [place] [address] Dr. Angela Aguero Eosinophils/100 WBC (Bld) 0.2 % Critically low 0.9-7.0 [facility] Comment on above: Performed By: #### L NGA SMITH CMP #### [facility] [address] [place] [address] Dr. Angela Aguero Erythrocyte distribution width (RBC) [Ratio] 12.8 % Normal 11.0-15.0 [facility] Comment on above: Performed By: #### L NGA SMITH CMP #### [facility] [address] [place] [address] Dr. Angela Aguero Hematocrit (Bld) [Volume fraction] 47.4 % Normal 36.0-48.0 [facility] Comment on above: Performed By: #### L NGA SMITH CMP #### [facility] [address] [place] [address] Dr. Angela Aguero Hemoglobin (Bld) [Mass/Vol] 16.6 g/dL Critically high 12.0-16.0 [facility] Comment on above: Performed By: #### L NGA SMITH, CMP #### [facility] [address] [place] [address] Dr. Angela Aguero IG # 0.02 10e3/ul Normal 0.00-0.03 [facility] Comment on above: Performed By: #### L NGA SMITH, CMP #### [facility] [address] [place] [address] Dr. Angela Aguero IG % 0.4 % Normal 0.0-0.5 [facility] Comment on above: Performed By: #### L NGA SMITH, CMP #### [facility] [address] [address] [address] Angela Aguero LYMPH # 0.9 103/ul Critically low 1.2-3.8 [facility] Comment on above: Performed By: #### L NGA SMITH, CMP #### [facility] [address] [address] [address] Angela Aguero Lymphocytes/100 WBC (Bld) 17.2 % Critically low 20.5-60.0 [facility] Comment on above: Performed By: #### L NGA SMITH, CMP #### [facility] [address] [address] [address] Angela Aguero MANUAL DIFF REQ NO Normal [facility] Comment on above: Performed By: #### L NGA SMITH, CMP #### [facility] [address] [place] [address] Dr. Angela Aguero MCH (RBC) [Entitic mass] 32.4 pg Normal 26.7-34.0 [facility] Comment on above: Performed By: #### L NAG SMITH, CMP #### [facility] [address] [place] [address] Dr. Angela Aguero MCHC (RBC) [Mass/Vol] 35.0 g/dL Normal 29.9-35.2 [facility] Comment on above: Performed By: #### L NGA SMITH, CMP #### [facility] [address] [place] [address] Dr. Angela Aguero MCV (RBC) [Entitic vol] 92.4 fL Normal 81.0-99.0 [facility] Comment on above: Performed By: #### L NGA SMITH, CMP #### [facility] [address] [place] [address] Dr. Angela Aguero MONO # 0.6 103/ul Normal 0.3-0.8 [facility] Comment on above: Performed By: #### L NGA SMITH, CMP #### [facility] [address] [place] [address] Dr. Angela Aguero Monocytes/100 WBC (Bld) 10.7 % Normal 1.7-12.0 [facility] Comment on above: Performed By: #### L NGA SMITH, CMP #### [facility] [address] [place] [address] Dr. Angela Aguero NEUT # 3.7 103/ul Normal 1.4-6.5 [facility] Comment on above: Performed By: #### L NGA SMITH, CMP #### [facility] [address] [place] [address] Dr. Angela Aguero Neutrophils/100 WBC (Bld) 69.1 % Normal 43.0-75.0 [facility] Comment on above: Performed By: #### L NGA SMITH, CMP #### [facility] [address] [place] [address] Dr. Angela Aguero Platelet mean volume (Bld) [Entitic vol] 10.1 fL Normal 9.5-13.5 [facility] Comment on above: Performed By: #### L NGA SMITH, CMP #### [facility] [address] [place] [address] Dr. Angela Aguero PLT 279 103/ul Normal 150-450 [facility] Comment on above: Performed By: #### L NGA SMITH, CMP #### [facility] [address] [place] [address] Dr. Angela Aguero RBC 5.13 106/ul Normal 4.20-5.40 [facility] Comment on above: Performed By: #### L NGA SMITH, CMP #### [facility] [address] [place] [address] Dr. Angela Aguero WBC 5.4 103/ul Normal 4.0-11.0 [facility] Comment on above: Performed By: #### L NGA SMITH, CMP #### [facility] [address] [place] [address] Dr. Angela Aguero Covid-19 PCR ([facility])on 11-07 SARS-CoV-2 (COVID-19) RNA GOPAL+probe Ql (Unsp spec) Not detected Normal NOT DETECTED [facility] Comment on above: Result Comment: When [...] for this test is supported by the Watch Case [employer]isher of Health and Human Service's declaration that [...] By: #### L NGA SMITH, CMP #### [facility] [address] [place] [address] Dr. Angela Aguero LIPASEon 11-18-2021 Lipase [Catalytic activity/Vol] 25.0 U/L Critically low 73.0-393.0 [facility] Comment on above: Performed By: #### L NGA SMITH, CMP #### [facility] [address] [place] [address] Dr. Angela Aguero PROF 14(COMP METB)on 022 Albumin [Mass/Vol] 4.4 g/dL Normal 3.4-5.0 [facility] Comment on above: Performed By: #### L NGA SMITH, CMP #### [facility] [address] [place] [address] Dr. Angela Aguero Albumin/Globulin [Mass ratio] 1.1 {ratio} Normal [facility] Comment on above: Performed By: #### L NGA SMITH, CMP #### [facility] [address] [place] [address] Dr. Angela Aguero ALP [Catalytic activity/Vol] 83 U/L Normal 46-116 [facility] Comment on above: Performed By: #### L NGA SMITH, CMP #### [facility] [address] [place] [address] Dr. Angela Aguero ALT [Catalytic activity/Vol] 95 U/L Critically high 14-59 [facility] Comment on above: Performed By: #### L NGA SMITH, CMP #### [facility] [address] [place] [address] Dr. Angela Aguero Anion gap [Moles/Vol] 20.2 mmol/L Normal [facility] Comment on above: Performed By: #### L NGA SMITH, CMP #### [facility] [address] [place] [address] Dr. Angela Aguero AST [Catalytic activity/Vol] 84 U/L Critically high 15-37 [facility] Comment on above: Performed By: #### L NGA SMITH, CMP #### [facility] [address] [place] [address] Dr. Angela Aguero Bilirubin [Mass/Vol] 1.1 mg/dL Critically high 0.2-1.0 [facility] Comment on above: Performed By: #### L NGA SMITH, CMP #### [facility] [address] [place] [address] Dr. Angela Aguero Calcium [Mass/Vol] 8.9 mg/dL Normal 8.5-10.1 [facility] Comment on above: Performed By: #### L NGA SMITH, CMP #### [facility] [address] [place] [address] Dr. Angela Aguero Chloride [Moles/Vol] 99 mmol/L Normal 98-107 [facility] Comment on above: Performed By: #### L NGA SMITH, CMP #### [facility] [address] [place] [address] Dr. Angela Aguero CO2 [Moles/Vol] 23.3 mmol/L Normal 21.0-32.0 [facility] Comment on above: Performed By: #### L NGA SMITH, CMP #### [facility] [address] [place] [address] Dr. Angela Aguero Creatinine [Mass/Vol] 0.97 mg/dL Normal 0.55-1.02 [facility] Comment on above: Performed By: #### L NGA SMITH, CMP #### [facility] [address] [address] [address] Angela Aguero EGFR-AF ZAMBIAN >60 Normal >=60 [facility] Comment on above: Performed By: #### L NGA SMITH, CMP #### [facility] [address] [address] [address] Angela Aguero EGFR-NON AF ZAMBIAN >60 Normal >=60 [facility] Comment on above: Performed By: #### L NGA SMITH, CMP #### [facility] [address] [address] [address] Angela Aguero Globulin (S) [Mass/Vol] 3.9 g/dL Normal [facility] Comment on above: Performed By: #### L NGA SMITH, CMP #### [facility] [address] [address] [address] Angela Aguero Glucose [Mass/Vol] 170 mg/dL Critically high 74-106 [facility] Comment on above: Performed By: #### L NGA SMITH, CMP #### [facility] [address] [place] [address] Dr. Angela Aguero Potassium [Moles/Vol] 3.5 mmol/L Normal 3.5-5.1 [facility] Comment on above: Performed By: #### L NGA SMITH, CMP #### [facility] [address] [place] [address] Dr. Angela Aguero Protein [Mass/Vol] 8.3 g/dL Critically high 6.4-8.2 [facility] Comment on above: Performed By: #### L NGA SMITH, CMP #### [facility] [address] [place] [address] Dr. Angela Aguero Sodium [Moles/Vol] 139 mmol/L Normal 136-145 [facility] Comment on above: Performed By: #### L NGA SMITH, CMP #### [facility] [address] [place] [address] Dr. Angela Aguero Urea nitrogen [Mass/Vol] 4.0 mg/dL Critically low 7.0-18.0 [facility] Comment on above: Performed By: #### L NGA SMITH, CMP #### [facility] [address] [address] [address] Angela Aguero Urea nitrogen/Creatinine [Mass ratio] 4.1 mg/mg Normal [facility] Comment on above: Performed By: #### L NGA SMITH, CMP #### [facility] [address] [address] [address] ABD/PELV W CONon [...] steatosis. 3. Small hiatal hernia. Normal [facility] URINE PROFILEon 2 Bilirubin Ql (U) Negative Normal NEGATIVE [facility] Comment on above: Performed By: #### L NGA SMITH, CMP #### [facility] [address] [address] [address] Angela Aguero Clarity (U) CLEAR Normal CLEAR [facility] Comment on above: Performed By: #### L NGA SMITH, CMP #### [facility] [address] [address] [address] Angela Aguero Color (U) LT. YELLOW Normal YELLOW [facility] Comment on above: Performed By: #### L IPA NGA, CMP #### [facility] [address] [address] [address] Angela CARRASCO A micrscopic examina tion will be performed if indicated. Normal [facility] Comment on above: Performed By: #### L IPA, NGA, CMP #### [facility] [address] [address] [address] Angela Aguero Glucose Ql (U) Negative Normal NEGATIVE [facility] Comment on above: Performed By: #### L IPA, NGA, CMP #### [facility] [address] [address] [address] Angela Aguero Hemoglobin Ql (U) Negative Normal NEGATIVE [facility] Comment on above: Performed By: #### L IPA NGA, CMP #### [facility] [address] [place] [address] Dr. Angela Aguero Ketones Ql (U) Negative Normal NEGATIVE [facility] Comment on above: Performed By: #### L IPA NGA, CMP #### [facility] [address] [place] [address] Dr. Angela Aguero LEUKOCYTES Negative Normal NEGATIVE [facility] Comment on above: Performed By: #### L IPA NGA, CMP #### [facility] [address] [place] [address] Dr. Angela Aguero Nitrite Ql (U) Negative Normal NEGATIVE [facility] Comment on above: Performed By: #### L IPA NGA, CMP #### [facility] [address] [address] [address] Angela Aguero pH (U) 6.0 [pH] Normal 5-9 [facility] Comment on above: Performed By: #### L IPA NGA, CMP #### [facility] [address] [place] [address] Dr. Angela Aguero SPEC GRAVITY <=1.005 Abnormal 1.005-<=1. 025 [facility] Comment on above: Performed By: #### L IPA NGA, CMP #### [facility] [address] [address] [address] Angela Aguero UA PROTEIN Negative Normal NEGATIVE/ TRACE [facility] Comment on above: Performed By: #### L NGA SMITH, CMP #### [facility] [address] [place] [address] Dr. Angela Aguero UR MICRO IND NOT INDICATED Normal [facility] Comment on above: Performed By: #### L NGA SMITH, CMP #### [facility] [address] [place] [address] Dr. Angela Aguero Urobilinogen Qn (U) 0.2 {Concetta'U}/dL Normal 0.2 - 1. 0 [facility] Comment on above: Performed By: #### L NGA SMITH, CMP #### [facility] [address] [place] [address] Dr. Angela Aguero LACTATE/LACTIC ACIDon 2021 Lactate [Moles/Vol] 1.1 mmol/L Normal 0.4-1.9 [facility] Comment on above: Performed By: #### L NGA SMITH, CMP #### [facility] [address] [place] [address] Dr. Angela Aguero CBC AUTO DIFFon 11-10-2021 BASO # 0.1 103/ul Normal 0.0-0.1 [facility] Comment on above: Performed By: #### L NGA SMITH, CMP #### [facility] [address] [place] [address] Dr. Angela Aguero Basophils/100 WBC (Bld) 1.7 % Normal 0.2-2.0 [facility] Comment on above: Performed By: #### L NGA SMITH, CMP #### [facility] [address] [place] [address] Dr. Angela Aguero EO # 0.1 103/ul Normal 0.0-0.7 [facility] Comment on above: Performed By: #### L LUIS NGA, CMP #### [facility] [address] [place] [address] Dr. Angela Aguero Eosinophils/100 WBC (Bld) 1.0 % Normal 0.9-7.0 [facility] Comment on above: Performed By: #### L NGA SMITH, CMP #### [facility] [address] [place] [address] Dr. Angela Aguero Erythrocyte distribution width (RBC) [Ratio] 13.1 % Normal 11.0-15.0 [facility] Comment on above: Performed By: #### L NGA SMITH, CMP #### [facility] [address] [place] [address] Dr. Angela Aguero Hematocrit (Bld) [Volume fraction] 46.8 % Normal 36.0-48.0 [facility] Comment on above: Performed By: #### L NGA SMITH, CMP #### [facility] [address] [place] [address] Dr. Angela Aguero Hemoglobin (Bld) [Mass/Vol] 16.3 g/dL Critically high 12.0-16.0 [facility] Comment on above: Performed By: #### L NGA SMITH, CMP #### [facility] [address] [place] [address] Dr. Angela Aguero IG # 0.02 10e3/ul Normal 0.00-0.03 [facility] Comment on above: Performed By: #### L NGA SMITH, CMP #### [facility] [address] [place] [address] Dr. Angela Aguero IG % 0.3 % Normal 0.0-0.5 [facility] Comment on above: Performed By: #### L NGA SMITH, CMP #### [facility] [address] [place] [address] Dr. Angela Aguero LYMPH # 1.3 103/ul Normal 1.2-3.8 [facility] Comment on above: Performed By: #### L NGA SMITH, CMP #### [facility] [address] [place] [address] Dr. Angela Aguero Lymphocytes/100 WBC (Bld) 20.9 % Normal 20.5-60.0 [facility] Comment on above: Performed By: #### L NGA SMITH, CMP #### [facility] [address] [place] [address] Dr. Angela Aguero MANUAL DIFF REQ NO Normal [facility] Comment on above: Performed By: #### L NGA SMITH, CMP #### [facility] [address] [place] [address] Dr. Angela Aguero MCH (RBC) [Entitic mass] 32.2 pg Normal 26.7-34.0 [facility] Comment on above: Performed By: #### L NGA SMITH, CMP #### [facility] [address] [place] [address] Dr. Angela Aguero MCHC (RBC) [Mass/Vol] 34.8 g/dL Normal 29.9-35.2 [facility] Comment on above: Performed By: #### L NGA SMITH, CMP #### [facility] [address] [place] [address] Dr. Angela Aguero MCV (RBC) [Entitic vol] 92.5 fL Normal 81.0-99.0 [facility] Comment on above: Performed By: #### L NGA SMITH, CMP #### [facility] [address] [place] [address] Dr. Angela Aguero MONO # 0.6 103/ul Normal 0.3-0.8 [facility] Comment on above: Performed By: #### L NGA SMITH, CMP #### [facility] [address] [place] [address] Dr. Angela Aguero Monocytes/100 WBC (Bld) 10.7 % Normal 1.7-12.0 [facility] Comment on above: Performed By: #### L NGA SMITH, CMP #### [facility] [address] [place] [address] Dr. Angela Aguero NEUT # 3.9 103/ul Normal 1.4-6.5 [facility] Comment on above: Performed By: #### L NGA SMITH, CMP #### [facility] [address] [place] [address] Dr. Angela Aguero Neutrophils/100 WBC (Bld) 65.4 % Normal 43.0-75.0 [facility] Comment on above: Performed By: #### L NGA SMITH, CMP #### [facility] [address] [address] [address] Angela Aguero Platelet mean volume (Bld) [Entitic vol] 9.6 fL Normal 9.5-13.5 [facility] Comment on above: Performed By: #### L NGA SMITH, CMP #### [facility] [address] [address] [address] Angela Aguero PLT 224 103/ul Normal 150-450 [facility] Comment on above: Performed By: #### L NGA SMITH, CMP #### [facility] [address] [address] [address] Angela Aguero RBC 5.06 106/ul Normal 4.20-5.40 [facility] Comment on above: Performed By: #### L NGA SMITH, CMP #### [facility] [address] [place] [address] Dr. Angela Aguero WBC 6.0 103/ul Normal 4.0-11.0 [facility] Comment on above: Performed By: #### L NGA SMITH, CMP #### [facility] [address] [place] [address] Dr. Angela Aguero LACTATE/LACTIC ACIDon 2021 Lactate [Moles/Vol] 3.7 mmol/L Critically high 0.4-1.9 [facility] Comment on above: Performed By: #### L NGA SMITH, CMP #### [facility] [address] [place] [address] Dr. Angela Aguero LIPASEon 11-10-2021 Lipase [Catalytic activity/Vol] 33.0 U/L Critically low 73.0-393.0 [facility] Comment on above: Performed By: #### L NGA SMITH, CMP #### [facility] [address] [place] [address] Dr. Angela Aguero PREG HCG QUALon 11-10-2021 , QUAL Negative Normal NEGATIVE [facility] Comment on above: Performed By: #### P REG #### [facility] [address] [place] [address] Dr. Angela Aguero PROF 14(COMP METB)on 022 Albumin [Mass/Vol] 4.5 g/dL Normal 3.4-5.0 [facility] Comment on above: Performed By: #### L NGA SMITH, CMP #### [facility] [address] [address] [address] Angela Aguero Albumin/Globulin [Mass ratio] 1.1 {ratio} Normal [facility] Comment on above: Performed By: #### L NGA SMITH, CMP #### [facility] [address] [address] [address] Angela Aguero ALP [Catalytic activity/Vol] 112 U/L Normal 46-116 [facility] Comment on above: Performed By: #### L NGA SMITH, CMP #### [facility] [address] [address] [address] Angela Aguero ALT [Catalytic activity/Vol] 154 U/L Critically high 14-59 [facility] Comment on above: Performed By: #### L NGA SMITH, CMP #### [facility] [address] [address] [address] Angela Aguero Anion gap [Moles/Vol] 17.8 mmol/L Normal [facility] Comment on above: Performed By: #### L NGA SMITH, CMP #### [facility] [address] [place] [address] Dr. Angela Aguero AST [Catalytic activity/Vol] 112 U/L Critically high 15-37 [facility] Comment on above: Performed By: #### L NGA SMITH, CMP #### [facility] [address] [address] [address] Angela Aguero Bilirubin [Mass/Vol] 0.7 mg/dL Normal 0.2-1.0 [facility] Comment on above: Performed By: #### L NGA SMITH, CMP #### [facility] [address] [address] [address] Angela Aguero Calcium [Mass/Vol] 9.7 mg/dL Normal 8.5-10.1 [facility] Comment on above: Performed By: #### L NGA SMITH, CMP #### [facility] [address] [address] [address] Angela Aguero Chloride [Moles/Vol] 102 mmol/L Normal 98-107 [facility] Comment on above: Performed By: #### L NGA SMITH, CMP #### [facility] [address] [address] [address] Angela Aguero CO2 [Moles/Vol] 26.6 mmol/L Normal 21.0-32.0 [facility] Comment on above: Performed By: #### L NGA SMITH, CMP #### [facility] [address] [address] [address] Angela Aguero Creatinine [Mass/Vol] 1.00 mg/dL Normal 0.55-1.02 [facility] Comment on above: Performed By: #### L NGA SMITH, CMP #### [facility] [address] [place] [address] Dr. Angela Aguero EGFR-AF ZAMBIAN >60 Normal >=60 [facility] Comment on above: Performed By: #### L NGA SMITH, CMP #### [facility] [address] [place] [address] Dr. Angela Aguero EGFR-NON AF ZAMBIAN >60 Normal >=60 [facility] Comment on above: Performed By: #### L NGA SMITH, CMP #### [facility] [address] [place] [address] Dr. Angela Aguero Globulin (S) [Mass/Vol] 4.1 g/dL Normal [facility] Comment on above: Performed By: #### L NGA SMITH, CMP #### [facility] [address] [place] [address] Dr. Angela Aguero Glucose [Mass/Vol] 170 mg/dL Critically high 74-106 [facility] Comment on above: Performed By: #### L NGA SMITH, CMP #### [facility] [address] [place] [address] Dr. Angela Aguero Potassium [Moles/Vol] 3.4 mmol/L Critically low 3.5-5.1 [facility] Comment on above: Performed By: #### L NGA SMITH, CMP #### [facility] [address] [place] [address] Dr. Angela Aguero Protein [Mass/Vol] 8.6 g/dL Critically high 6.4-8.2 [facility] Comment on above: Performed By: #### L NGA SMITH, CMP #### [facility] [address] [place] [address] Dr. Angela Aguero Sodium [Moles/Vol] 143 mmol/L Normal 136-145 [facility] Comment on above: Performed By: #### L NGA SMITH, CMP #### [facility] [address] [place] [address] Dr. Angela Aguero Urea nitrogen [Mass/Vol] 4.0 mg/dL Critically low 7.0-18.0 [facility] Comment on above: Performed By: #### L NGA SMITH, CMP #### [facility] [address] [place] [address] Dr. Angela Aguero Urea nitrogen/Creatinine [Mass ratio] 4.0 mg/mg Normal [facility] Comment on above: Performed By: #### L NGA SMITH, CMP #### [facility] [address] [place] [address] Dr. Angela Aguero PROTIMEon 11-10-2021 INR Coag (PPP) [Relative time] 1.13 {INR} Normal [facility] Comment on above: Performed By: #### L NGA SMITH, CMP #### [facility] [address] [place] [address] Dr. Angela Aguero INR GUIDELINES SEE BELOW Normal [facility] Comment on above: Result Comment: VARSHA RED INR: 2.0 - 3.0 CONDITIONS NOT LISTED BELOW 2.5 - 3.5 FOR PROSTHETIC HEART VALVE REPLACEMENT 2.5 - 3.5 RECURRENT THROMBOSIS Performed By: #### L NGA SMITH, CMP #### [facility] [address] [place] [address] Dr. Angela Aguero PT Coag (PPP) [Time] 12.1 s Critically high 9.0-11.6 [facility] Comment on above: Performed By: #### L NGA SMITH, CMP #### [facility] [address] [place], [place] [address] Dr. Angela Aguero PTTon 11-10-2021 aPTT Coag (Bld) [Time] 30.2 s Normal 22.3-36.2 [facility] Comment on above: Performed By: #### L NGA SMITH, CMP #### [facility] [address] [place], [place] [address] Dr. Angela Aguero Automated epithelial cells c ount in urine sediment (number/area)Ordered By: Hal Orozco on 11-06-2021 Epithelial cells Auto (Urine sed) [#/Area] 10-19 [HPF] 0-2 [facility] Automated erythrocytes count in urine sediment (number/area)Ordered By: Hal Orozco on 11-06-2021 RBC Auto (Urine sed) [#/Area] 0-1 [HPF] 0-4 [facility] Automated leukocytes count i n urine sediment (number/area)Ordered By: Hal Orozco on 11-06-2021 WBC Auto (Urine sed) [#/Area] 1-2 [HPF] 0-4 [facility] Basophils Auto (Bld) [#/Vol] Ordered By: Hal Orozco on 11-06-2021 Basophils (Bld) [#/Vol] 0.0 10*3/uL 0.0-0.2 [facility] Basophils/100 WBC Auto (Bld) Ordered By: Hal Orozco on 11-06-2021 Basophils/100 WBC (Bld) 0.3 % . [facility] Bilirubin Auto test strip Ql (U)Ordered By: Hal Orozco on 11-06-2021 Bilirubin Ql (U) 1+ Negative [facility] Blood hemoglobin measurement (mass/volume)Ordered By: Hal Orozco on 11-06-2021 Hemoglobin (Bld) [Mass/Vol] 15.7 g/dL 11.8-15.4 [facility] Blood leukocytes automated c ount (number/volume)Ordered By: Hal Orozco on 11-06-2021 WBC (Bld) [#/Vol] 9.8 10*3/uL 4.5-11.0 [facility] Body fluid albumin measureme nt (mass/volume)Ordered By: Hal Orozco on 11-06-2021 Albumin (Body fld) [Mass/Vol] 4.7 g/dL 3.2-5.5 [facility] Creatinine and Glomerular fi ltration rate.predicted panel (S/P/Bld)Ordered By: Hal Orozco on 11-06-2021 Creatinine [Mass/Vol] 0.99 mg/dL 0.44-1.03 [facility] Direct bilirubin measurement Ordered By: Hal Orozco on 11-06-2021 Bilirubin.direct [Mass/Vol] 0.3 mg/dL 0.0-0.4 [facility] Eosinophils Auto (Bld) [#/Vo l]Ordered By: Hal Orozco on 11-06-2021 Eosinophils (Bld) [#/Vol] 0.0 10*3/uL 0.0-0.45 [facility] Eosinophils/100 WBC Auto (Bl d)Ordered By: Hal Orozco on 11-06-2021 Eosinophils/100 WBC (Bld) 0.0 % . [facility] Erythrocyte distribution wid th Auto (RBC) [Ratio]Ordered By: Hal Orozco on 11-06-2021 Erythrocyte distribution width (RBC) [Ratio] 14.3 % 11.9-15.3 [facility] Estimated glomerular filtrat ion rate (GFR) non- AmericanOrdered By: Hal Orozco on 11-06-2021 GFR/1.73 sq M.predicted among non-blacks MDRD (S/P/Bld) [Vol rate/Area] > 60 mL/Min [facility] Globulin Calc (S) [Mass/Vol] Ordered By: Hal Orozco on 11-06-2021 Globulin (S) [Mass/Vol] 3.4 g/dL [facility] HCG ( test) IA.rapi d Ql (U)Ordered By: Hal Orozco on 11-06-2021 HCG ( test) Ql (U) Negative [facility] Hematocrit Auto (Bld) [Volum e fraction]Ordered By: Hal Orozco on 11-06-2021 Hematocrit (Bld) [Volume fraction] 45.7 % 34.0-46.4 [facility] Ketones Auto test strip (U) [Mass/Vol]Ordered By: Hal Orozco on 11-06-2021 Ketones (U) [Mass/Vol] 1+ Negative Fi [facility] - Chemistry and C hemistry - challengeOrdered By: Hal Orozco on 11-06-2021 Lipase [Catalytic activity/Vol] 18.0 U/L 22-51 [facility] Laboratory - Hematology and Cell countsOrdered By: Hal Orozco on 11-06-2021 Nucleated RBC/100 WBC (Bld) [Ratio] 0.1 % 0-0.5 [facility] Lymphocytes Auto (Bld) [#/Vo l]Ordered By: Hal Orozco on 11-06-2021 Lymphocytes (Bld) [#/Vol] 0.4 10*3/uL 1.00-4.8 [facility] Lymphocytes/100 WBC Auto (Bl d)Ordered By: Hal Orozco on 11-06-2021 Lymphocytes/100 WBC (Bld) 3.8 % . [facility] MCH Auto (RBC) [Entitic mass ]Ordered By: Hal Orozco on 11-06-2021 MCH (RBC) [Entitic mass] 32.4 pg 24.7-34.3 [facility] MCHC Auto (RBC) [Mass/Vol]Or dered By: Hal Orozco on 11-06-2021 MCHC (RBC) [Mass/Vol] 34.4 g/dL 32.0-35.0 [facility] MCV Auto (RBC) [Entitic vol] Ordered By: Hal Orozco on 11-06-2021 MCV (RBC) [Entitic vol] 94.2 fL 80-100 [facility] Monocytes Auto (Bld) [#/Vol] Ordered By: Hal Orozco on 11-06-2021 Monocytes (Bld) [#/Vol] 0.3 10*3/uL 0.0-0.8 [facility] Monocytes/100 WBC Auto (Bld) Ordered By: Hal Orozco on 11-06-2021 Monocytes/100 WBC (Bld) 2.9 % . [facility] Mucus LM Ql (Urine sed)Order ed By: Hal Orozco on 11-06-2021 Mucus Ql (Urine sed) 2+ [LPF] [facility] Neutrophils Auto (Bld) [#/Vo l]Ordered By: Hal Orozco on 11-06-2021 Neutrophils (Bld) [#/Vol] 9.1 10*3/uL 1.8-7.7 [facility] Neutrophils/100 WBC Auto (Bl d)Ordered By: Hal Orozco on 11-06-2021 Neutrophils/100 WBC (Bld) 93.0 % . [facility] No Panel InformationOrdered By: Hal Orozco on 11-06-2021 Estimated GFR () > 60 mL/Min [facility] Comment on above: GFR estimated refere nce range: According to KDOQI guidelines, <60 ml/min/1.73m2 is sufficient to diagnose a patient with chronic kidney disease. Pharmacy Creatinine Clearance (Chem 72.84 [facility] Platelet mean volume Auto (B ld) [Entitic vol]Ordered By: Hal Orozco on 11-06-2021 Platelet mean volume (Bld) [Entitic vol] 7.5 fL 6.3-10.7 [facility] Platelets Auto (Bld) [#/Vol] Ordered By: Hal Orozco on 11-06-2021 Platelets (Bld) [#/Vol] 270 10*3/uL 150-450 [facility] Protein Auto test strip (U) [Mass/Vol]Ordered By: Hal Orozco on 11-06-2021 Protein (U) [Mass/Vol] 30 mg/dL Negative [facility] Protein [Mass/volume] in Ser um or PlasmaOrdered By: Hal Orozco on 11-06-2021 Protein [Mass/Vol] 8.1 g/dL 6.1-7.9 [facility] RBC Auto (Bld) [#/Vol]Ordere d By: Hal Orozco on 11-06-2021 RBC (Bld) [#/Vol] 4.85 10*6/uL 3.60-5.00 [facility] Serum or plasma alanine montes otransferase measurement without P-5'-P (enzymatic activiOrdered By: Hal Orozco on 11-06-2021 ALT No additional P-5'-P [Catalytic activity/Vol] 64 U/L 10-60 [facility] Serum or plasma albumin/glob ulin mass ratioOrdered By: Hal Orozco on 11-06-2021 Albumin/Globulin [Mass ratio] 1.4 {ratio} [facility] Serum or plasma alkaline florencio sphatase measurement (enzymatic activity/volume)Ordered By: Hal Orozco on 11-06-2021 ALP [Catalytic activity/Vol] 75 U/L 32-92 [facility] Serum or plasma aspartate am inotransferase measurement (enzymatic activity/volume)Ordered By: Hal Orozco on 11-06-2021 AST [Catalytic activity/Vol] 101 U/L 10-42 [facility] Serum or plasma calcium archie urement (mass/volume)Ordered By: Hal Orozco on 11-06-2021 Calcium [Mass/Vol] 9.3 mg/dL 8.2-10.2 [facility] Serum or plasma chloride luz surement (moles/volume)Ordered By: Hal Orozco on 11-06-2021 Chloride [Moles/Vol] 101 mmol/L 95-114 [facility] Serum or plasma glucose archie urement (mass/volume)Ordered By: Hal Orozco on 11-06-2021 Glucose [Mass/Vol] 205 mg/dL 70-100 [facility] Comment on above: ADA recommended refe [...] Orozco on 11-06-2021 Bilirubin.indirect [Mass/Vol] 1.0 mg/dL [facility] Serum or plasma potassium me asurement (moles/volume)Ordered By: Hal Orozco on 11-06-2021 Potassium [Moles/Vol] 3.8 mmol/L 3.5-5.1 [facility] Serum or plasma sodium measu rement (moles/volume)Ordered By: Hal Orozco on 11-06-2021 Sodium [Moles/Vol] 142 mmol/L 136-146 [facility] Serum or plasma total biliru bin measurement (mass/volume)Ordered By: Hal Orozco on 11-06-2021 Bilirubin [Mass/Vol] 1.3 mg/dL 0.3-1.2 [facility] Comment on above: Samples from patient s who have taken Naproxen have shown spurious elevation in Total Bilirubin levels. A metabolite of Naproxen, O-desmethylnaproxen, has been shown to interfere with the Renetta method for measuring Total Bilirubin. Serum or plasma total carbon dioxide measurement (moles/volume)Ordered By: Hal Orozco on 11-06-2021 CO2 [Moles/Vol] 21.6 mmol/L 22.0-30.0 [facility] Serum or plasma urea nitroge n measurement (mass/volume)Ordered By: Hal Orozco on 11-06-2021 Urea nitrogen [Mass/Vol] 4 mg/dL 9-23 [facility] Urine appearanceOrdered By: Hal Orozco on 11-06-2021 Appearance (U) Clear Clear [facility] Urine bacteria detection by automated methodOrdered By: Hal Orozco on 11-06-2021 Bacteria Auto Ql (U) 1+ None Seen [facility] Urine colorOrdered By: Jimbo Orozco on 11-06-2021 Color (U) Yellow Yellow [facility] Urine glucose measurement by automated test strip (mass/volume)Ordered By: Hal Orozco on 11-06-2021 Glucose Auto test strip (U) [Mass/Vol] Normal mg/dL Normal [facility] Urine hemoglobin detection b y automated test stripOrdered By: Hal Orozco on 11-06-2021 Hemoglobin Auto test strip Ql (U) Negative Negative [facility] Urine leukocyte esterase det ection by automated test stripOrdered By: Hal Orozco on 11-06-2021 Leukocyte esterase Auto test strip Ql (U) Negative Negative [facility] Urine nitrite detection by a utomated test stripOrdered By: Hal Orozco on 11-06-2021 Nitrite Auto test strip Ql (U) Negative Negative [facility] Urobilinogen Auto test strip (U) [Mass/Vol]Ordered By: Hal Orozco on 11-06-2021 Urobilinogen (U) [Mass/Vol] mg/dL Normal [facility] pH Auto test strip (U)Ordere d By: Hal Orozco on 11-06-2021 pH (U) 1.025 [pH] 1.001-1.03 0 [facility] pH (U) 6.5 [pH] 5.0-9.0 [facility] Vital Signs Date Time Vital Sign Value Performing Clinician Facility 01-22-2024 08:00-0400 Body temperature 98.1 [degF] CATIA Blanca Work Phone: [facility] 01-22-2024 08:00-0400 Diastolic blood pressure 78 mm[Hg] CATIA Blanca Work Phone: [facility] 01-22-2024 08:00-0400 Heart rate 116 /min CATIA Blanca Work Phone: [facility] 01-22-2024 08:00-0400 Respiratory rate 18 /min CATIA Blanca Work Phone: [facility] 01-22-2024 08:00-0400 SaO2% (BldA) [Mass fraction] 99 % CATIA Blanca Work Phone: [facility] 01-22-2024 08:00-0400 Systolic blood pressure 109 mm[Hg] CATIA Blanca Work Phone: [facility] 01-21-2024 10:58-0400 Body weight 62.09 kg CATIA Blanca Work Phone: [facility] 01-18-2024 15:54-0400 Body height 170.18 cm CATIA Blanca Work Phone: [facility] 01-15-2024 10:17-0400 Diastolic blood pressure 108 mm[Hg] CATIA Blanca Work Phone: [facility] 01-15-2024 10:17-0400 Heart rate 73 /min SHELL TRIM OPERATORTodd Blanca Work Phone: [facility] 01-15-2024 10:17-0400 Respiratory rate 18 /min SHELL TRIM OPERATORTodd Blanca Work Phone: [facility] 01-15-2024 10:17-0400 SaO2% (BldA) [Mass fraction] 95 % SHELL TRIM OPERATORTodd Blanca Work Phone: [facility] 01-15-2024 10:17-0400 Systolic blood pressure 148 mm[Hg] CATIA Blanca Work Phone: [facility] 01-15-2024 08:59-0400 Body temperature 98.6 [degF] CATIA Blanca Work Phone: [facility] 06-14-2023 14:27-0500 Body height 167.64 cm CATIA Blanca Work Phone: [facility] 06-14-2023 14:27-0500 Body mass index (BMI) [Ratio] 22 kg/m2 SHELL TRIM OPERATORTodd Blanca Work Phone: [facility] 06-14-2023 14:27-0500 Body weight 61.91 kg CATIA Blanca Work Phone: [facility] 06-14-2023 14:27-0500 Diastolic blood pressure 85 mm[Hg] CATIA Blanca Work Phone: [facility] 06-14-2023 14:27-0500 Heart rate 94 /min CATIA Blanca Work Phone: [facility] 06-14-2023 14:27-0500 Respiratory rate 18 /min CATIA Blanca Work Phone: [facility] 06-14-2023 14:27-0500 SaO2% (BldA) [Mass fraction] 100 % SHELL TRIM OPERATORTodd Blanca Work Phone: [facility] 06-14-2023 14:27-0500 Systolic blood pressure 132 mm[Hg] SHELL TRIM OPERATOR Avery Blanca Work Phone: [facility] 03-27-2023 10:45-0500 Body height 167.64 cm Becky Scally Other [facility] 03-27-2023 10:45-0500 Body mass index (BMI) [Ratio] 21.93 kg/m2 Becky Scally Other [employer] Other 03-27-2023 10:45-0500 Body weight 61.64 kg Becky Scally Other [facility] 03-27-2023 10:45-0500 Diastolic blood pressure 80 mm[Hg] Becky Scally Other [facility] 03-27-2023 10:45-0500 Respiratory rate 16 /min Becky Scally Other [employer] Other 03-27-2023 10:45-0500 SaO2% (BldA) [Mass fraction] 100 % Becky Scally Other [employer] Other 03-27-2023 10:45-0500 Systolic blood pressure 125 mm[Hg] Becky Scally Other [facility] 02-01-2022 23:07-0400 Diastolic blood pressure 103 mm[Hg] Kaylinn Dokken [facility] 02-01-2022 23:07-0400 Heart rate 67 /min Kaylinn Dokken [facility] 02-01-2022 23:07-0400 Respiratory rate 15 /min Kaylinn Dokken [facility] 02-01-2022 23:07-0400 SaO2% (BldA) [Mass fraction] 97 % Zaireylinn Dokken [facility] 02-01-2022 23:07-0400 Systolic blood pressure 164 mm[Hg] Kaylinn Dokken [facility] 02-01-2022 21:27-0400 Body temperature 98.24 [degF] Zaireylinn Dokken [facility] 02-01-2022 21:27-0400 Diastolic blood pressure 120 mm[Hg] Zaireylinn Dokken [facility] 02-01-2022 21:27-0400 Heart rate 111 /min Zaireylinn Dokken [facility] 02-01-2022 21:27-0400 Respiratory rate 20 /min Zaireylinn Dokken [facility] 02-01-2022 21:27-0400 SaO2% (BldA) [Mass fraction] 98 % Charaninn Dokken [facility] 02-01-2022 21:27-0400 Systolic blood pressure 196 mm[Hg] Charaninn Dokken [facility] 12-28-2021 08:56-0400 Body height 167.64 cm Services [employer] Work Phone: [facility] 12-28-2021 08:56-0400 Body weight 71.66 kg [employer] Work Phone: [facility] 12-23-2021 09:40-0400 Diastolic blood pressure 87 mm[Hg] [employer] Work Phone: [facility] 12-23-2021 09:40-0400 Heart rate 88 /min Services [facility] [employer] Work Phone: [facility] 12-23-2021 09:40-0400 Respiratory rate 18 /min Services [facility] Work Phone: [facility] 12-23-2021 09:40-0400 SaO2% (BldA) [Mass fraction] 100 % [facility] Work Phone: [facility] 12-23-2021 09:40-0400 Systolic blood pressure 140 mm[Hg] Services [facility] Work Phone: [facility] 12-23-2021 07:44-0400 Body height 167.64 cm [facility] Work Phone: [facility] 12-23-2021 07:44-0400 Body weight 68.03 kg [facility] Work Phone: [facility] 11-06-2021 14:00-0400 Diastolic blood pressure 82 mm[Hg] [facility] Work Phone: [facility] 11-06-2021 14:00-0400 Heart rate 102 /min [facility] Work Phone: [facility] 11-06-2021 14:00-0400 Respiratory rate 20 /min [facility] Work Phone: [facility] 11-06-2021 14:00-0400 SaO2% (BldA) [Mass fraction] 97 % [facility] Work Phone: [facility] 11-06-2021 14:00-0400 Systolic blood pressure 123 mm[Hg] [facility] Work Phone: [facility] 11-06-2021 00:00-0400 Body height 167.64 cm [facility] Work Phone: [facility] 11-06-2021 00:00-0400 Body weight 70.3 kg [facility] Work Phone: [facility] 11-05-2021 23:51-0400 Body temperature 98 [degF] [facility] Work Phone: [facility] Encounters Encounter Date Encounter Type Care Provider Facility Start: 01-16-2024 Non-patient / Non-visit 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 OPERATOR Reji jimenez Evangelist Work Phone: [facility] Work Phone: Start: 01-15-2024 End: 01-22-2024 Evaluation and management of inpatient SHELL TRIM OPERATORTodd Baldwin Evangelist Work Phone: [facility] [place] [address] Work Phone: Start: 11-27-2023 End: 11-30-2023 Clinisync Result Encounter Shaikh Jonatan OROURKE Work Phone: [facility] Unsolicited Start: 11-27-2023 End: 11-30-2023 Clinisync Result Encounter Shaikh Jonatan OROURKE Work Phone: [facility] Unsolicited Start: 11-26-2023 End: 12-01-2023 Non-patient / Non-visit SHELL TRIM OPERATORTodd Blanca Work Phone: [facility] Work Phone: Start: 11-22-2023 Non-patient / Non-visit SHELL TRIM OPERATOR Reji jimenez Evangelist Work Phone: [facility] Work Phone: Start: 11-22-2023 ambulatory Avery Blanca Facili ty:[facility] Start: 11-22-2023 Registered Recurring SHELL TRIM OPERATOR Ez reji Evangelist Work Phone: [facility] Start: 08-14-2023 End: 08-14-2023 ambulatory Avery Babb Blanca [facility] Work Phone: Start: 08-14-2023 End: 08-14-2023 Departed Referred CATIA Blanca Work Phone: [facility] Services Start: 06-14-2023 End: 06-14-2023 Patient encounter procedure SHELL TRIM OPERATORTodd Blanca Work Phone: [facility] Physician [facility] Work Phone: Start: 03-27-2023 FQHC visit new patient Becky beck [facility] Start: 03-27-2023 End: 03-27-2023 Discharged Recurring CATIA Blanca Work Phone: [facility] Work Phone: Start: 03-27-2023 End: 03-27-2023 ambulatory CATIA Blanca Work Phone: [facility] [employer] Other Start: 03-27-2023 End: 03-27-2023 Patient encounter procedure CATIA Blanca Work Phone: [facility] Work Phone: Start: 01-19-2023 ambulatory Aung Saldaña [facility] ty:[facility] [place] Start: 10-21-2022 End: 10-21-2022 Emergency department patient visit Thanh Bal Facility:[facility] [place] Start: 03-26-2022 End: 03-26-[address] DEON MCGUIRE Facility: Start: 02-01-2022 End: 02-02-2022 Emergency department patient visit DO Judith Mock Facility:[facility] [place] Start: 02-01-2022 End: 02-02-2022 Emergency department patient visit Judith Mock [facility] Start: 01-31-2022 End: 05-02-2022 ambulatory Varinder Ang Facility:[facility] [place] Start: 01-18-2022 End: 01-18-2022 ambulatory Services [facility] Work Phone: [facility] Work Phone: Start: 01-18-2022 End: 01-18-2022 Patient encounter procedure Services [facility] Work Phone: [facility] [place] Start: 12-28-2021 End: 12-28-2021 Patient encounter procedure Services [facility] Work Phone: [facility] [place] Start: 12-23-2021 End: 12-23-2021 Patient encounter procedure Services [employer] Phone: [facility] [place] Start: 11-25-2021 End: 11-25-2021 Departed Referred Services [employer] Phone: [facility] Start: 11-18-2021 End: 11-20-[address] DOCTOR SALGADO Facility:[facility] Start: 11-10-2021 End: 11-11-2021 ambulatory MAGGY WORLEY Facility:[facility] Start: 11-05-2021 End: 11-06-2021 Emergency department patient visit Services [employer] Phone: [facility]-Emergency Room Procedures Date Procedure Procedure Detail Performing Clinician Start: 11-27-2023 Bacteria identified in Urine by Culture Shaikh Jonatan OROURKE Work Phone: Start: 12-28-2021 MRI of thoracic spin e with contrast [facility] [employer] Phone: Start: 12-28-2021 XR pre/post mri xray [employer] Phone: Start: 12-28-2021 MRI of lumbar spine with contrast [facility] [employer] Phone: Start: 12-23-2021 MRI of head Services F [facility] [employer] Work Phone: Aerobic microbial culture [facility] [employer] Phone: Anaerobic microbial culture [facility] [employer] Phone: Investigation of transfusion reaction [facility] [employer] Phone: Plan of Treatment Date Care Activity Detail Author Start: 01-22-2024 [facility] Start: 01-18-2024 Referral to clinical civil service worker [facility] Start: 01-15-2024 Referral to Wireless Internet Installer [facility] Start: 01-15-2024 Hospital admission [facility] Start: 01-18-2022 FARM OPERATIONS MANAGER antibody measurement [facility] Start: 01-18-2022 [facility] Start: 12-23-2021 [facility] Start: 12-23-2021 Cerebrospinal fluid culture [facility] Work Phone: Start: 12-23-2021 [facility] Start: 12-23-2021 Lumbar puncture usin g fluoroscopic guidance [facility] Work Phone: Start: 11-25-2021 End: 11-25-2021 Departed Referred Departed Referred [facility] Albumin [Mass/volume ] in Cerebral spinal fluid [facility] Work Phone: Albumin [Mass/volume ] in Serum or Plasma [facility] Work Phone: Albumin/Globulin ratio [facility] Work Phone: Bacteria identified in Unspecified specimen by Aerobe culture [facility] Work Phone: Bacteria identified in Unspecified specimen by Anaerobe culture [facility] Work Phone: Cell count, cerebros alexus fluid [facility] Work Phone: Centromere protein B Ab [Units/volume] in Serum [facility] Work Phone: Cerebrospinal fluid examination [facility] Work Phone: Cerebrospinal fluid IgG ratio and IgG index [facility] Work Phone: Chromatin Ab [Units/ volume] in Serum or Plasma [facility] Work Phone: Comprehensive metabo lic 2000 panel - Serum or Plasma [facility] DNA double strand Ab [Units/volume] in Serum [facility] Work Phone: Electrophoresis: [id number] [facility] Work Phone: Electrophoresis: [id number] [facility] Work Phone: Electrophoresis: beta-globulin [facility] Work Phone: Electrophoresis: toby ma globulin [facility] Work Phone: Evaluation of cerebr ospinal fluid [facility] Work Phone: Fluid sample volume measurement [facility] Work Phone: Globulin [Mass/volum e] in Serum [facility] Work Phone: Glucose [Mass/volume ] in Cerebral spinal fluid [facility] Work Phone: Glutamate decarboxyl ase 65 Ab [Units/volume] in Serum [facility] IgG [Mass/volume] in Cerebral spinal fluid [facility] Work Phone: IgG [Mass/volume] in Serum or Plasma [facility] Work Phone: IgG clearance/Albumi n clearance [Ratio] in Serum and CSF [facility] Work Phone: IgG synthesis rate [Mass/time] in Serum and CSF by calculation [facility] Work Phone: Insulin Ab [Units/vo lume] in Serum [facility] Insulin C-peptide measurement [facility] Rika-1 extractable nuc lear Ab [Units/volume] in Serum [facility] Work Phone: Meningitis+Encephali tis pathogens DNA and RNA panel - Cerebral spinal fluid by GOPAL with non-probe detection [facility] Work Phone: Methylmalonate [Moles/volume] in Serum or Plasma [facility] Work Phone: Microscopic observat ion [Identifier] in Unspecified specimen by Gram stain [facility] Nucleated cells [#/v olume] in Cerebral spinal fluid by Manual count [facility] Work Phone: Patient Education [facility] Work Phone: Patient referral [facility] Work Phone: Protein [Mass/volume ] in Cerebral spinal fluid [facility] Work Phone: Protein [Mass/volume ] in Serum or Plasma [facility] Work Phone: Protein fractions.oligoclonal bands.intrathecal [Presence] in Serum and CSF [facility] Work Phone: Red blood cell count [facility] Work Phone: FARM OPERATIONS MANAGER antibody measurement [facility] Work Phone: SCL-70 extractable n uclear Ab [Units/volume] in Serum by Immunoassay [facility] Work Phone: Sjogrens syndrome-A extractable nuclear Ab [Units/volume] in Serum [facility] Work Phone: Sjogrens syndrome-B extractable nuclear Ab [Units/volume] in Serum [facility] Work Phone: Mcguire extractable nu clear Ab [Units/volume] in Serum [facility] Work Phone: Thiamine [Moles/volu me] in Blood [facility] Immunizations Immunization Date Immunization Notes Care Provider [facility] 01-31-2022 influenza virus vaccine, unspecified formulation Judith Piersonmandeepedwige [facility] Comment on above: Reason for Medicatio n: Prophylaxis Payers Date Payer Category Payer Self-pay [id number] 2021 Unknown 1985 Unknown [id number] 2.16.84 [id number] 1984 Unknown [id number] 2.16.84 [id number] 1984 Unknown [id number] 2.16.84 [id number] 1984 Unknown [id number] 2.16.8 [id number] 1984 Unknown [id number] 2.16.8 [id number] 1984 Unknown [id number] 2.16.8 [id number] 1984 Unknown [id number] 2.16.8 [id number] 1959 Unknown [id number] Medicaid [id number] Unknown [id number] 2.16.8 [id number] Unknown [id number] 2.16.8 [id number] Unknown [id number] 2.16.8 [id number] Unknown [id number] 2.16.8 [id number] Social History Date Type Detail Facility Start: 11-06-2021 End: 03-27-2023 Tobacco smoking status IAIS Ex-smoker (finding) [facility] Start: 1985 Sex Assigned At Female F [facility] Tobacco smoking status No Smoking Status Entered [facility] Sex Assigned At Female [facility] Start: 06-14-2023 End: 01-18-2024 Tobacco smoking status IAIS Smoker (finding) [facility] Tobacco smoking status [facility] Tobacco smoking consumption unknown [facility] Start: 1985 Sex assigned at Not on file N [facility] Healthcare Goals Date Patient Goal Desired Activity /State Functional Status Date Assessment Result Facility 01-22-2024 Functional status Patient at Baseline [facility] Work Phone: 02-01-2022 Functional Status N/A [facility] Mental Status Date Assessment Result Facility 01-22-2024 Cognitive function Cognitive Sta tus Patient at Baseline [facility] Work Phone: Clinical Notes 02-01-2022 to 01-22-2024 Note Date & Type Note Facility 01-22-2024 Discharge summary Note Date/Time January 22, 2024 11:00am [facility] [address] [place] [address] Discharge Summary Signed Patient: Shikha Loera MR#: [id number] : 1985 Acct:[id number] Age/Sex: 38 / F Adm Date: 4 Loc: Room: [address] [place] [address]: Jack Kwon MD Copies to: MD Devonte Wu MD [facility]~ Providers Date of Discharge: 01/22/24 Discharging Provider: Devonte Valdovinos Primary Care Provider: Services [facility] Consults: 01/15/24 11:22 Consult to Case Management Routine Comment: CM Reason for Consult: Wireless Internet Installer-General 01/18/24 04:46 Consult to Adult Hospitalist Routine [...] depression, alcohol use disorder Past hospitalizations: Previous [address] [place] [address] hospitalization 10-15 years ago for suicide attempt [...] Instructions: Important Contact Information You can call [facility] Inpatient [facility] at [phone] any time day or night if you have emergent questions or question regarding discharge instructions. If at any time you are feeling an increase inyour psychiatric symptoms, call your physician or behavioral healthcare provider. If any time you have thoughts of harming yourself or others contact one of the following: Call 9-8-8 (available 30/10) Crisis Text Line (available 30/10) text 4HOPE to [phone] [facility] Hope Line (available 8 a.m. Midnight) call [phone] ([phone]) Regular Diet No Activity Restrictions Instructions: Depression, Adult (DC), Alcohol Use Disorder (DC), [facility] Behavioral Health DC Instructions, Know your Meds [...] tablet 5 mg PO DAILY Follow Up: [facility] [Outside] - 01/23/24 (A case management social worker will call you tomorrow 01/22 between 8-5 to discuss appointments and follow-up care. Financial and diagnostic assessment on 01/22 at 1:30pm Nursing intake on 02/05 at 10am Appointment with Dr[address] Valdovinos on 02/11 at 10:[facility]am[facility]see with any medical needs) Exam [...] <Electronically signed by Devonte Valdovinos MD> 01/22/24 0869 [facility] Work Phone: 1(128) 530-450110-14-2024 Progress note Author Devonte Valdovinos [facility] January 21, 2024 2:21pm Note Date/Time January 21, 2024 1 2:12pm [facility] [address] [place] [address] Psychiatry Progress Note Signed Patient: Shikha Loera MR#: [id number] : 1985 Acct:[id number] Age/Sex: 38 / F Adm Date: 4 Loc: Room: [address] [place] [address] Type : ADM IN Attending Dr: Jack [...] signed by Devonte Valdovinos MD> 01/21/24 1421 [facility] Work Phone: 1(378) 485-659810-13-2024 Progress note Author Jack wright [facility] January 20, 2024 5:40pm Note Date/Time January 20, 2024 1 1:39am [facility] [address] [place] [address] Psychiatry Progress Note Signed Patient: Shikha Loera MR#: [id number] : 1985 Acct:[id number] Age/Sex: 38 / F Adm Date: 4 Loc: 1S Room: [address] [place] [address] Type : ADM IN Attending Dr: Jack [...] to get ahold of her. Ena Rooney [phone] Mother stated she just talked to Shikha [...] <Electronically signed by Jack Kwon MD> 01/20/24 6305 [facility] Work Phone: 1(388) 394-631510-13-2024 Progress note Author Helen Bailon [facility] January 20, 2024 4:29pm Note Date/Time January 20, 2024 4 :29pm [facility] [address] [place] [address] Hospitalist Progress Note Signed Patient: Shikha Loera MR#: [id number] : 1985 Acct:[id number] Age/Sex: 38 / F Adm Date: 4 Loc: Room: [address] [place] [address] Type: ADM IN Attending Dr: Jack Kwon [...] By: <Electronically signed by CATIA Bailon> 01/20/241628 [facility] Work Phone: 1(392) 462-990710-12-2024 Progress note Author Helen Bailon [facility] January 19, 2024 4:50pm Note Date/Time January 19, 2024 4 :50pm [facility] [address] [place] [address] Hospitalist Progress Note Signed Patient: Shikha Loera MR#: [id number] : 1985 Acct:[id number] Age/Sex: 38 / F Adm Date: 4 Loc: Room: [address] [place] [address] Type: ADM IN Attending Dr: Jack Kwon [...] Capsule PO 01/18/25 08:59 125 mcg DAILY [facility] Administration A&P - Hospitalist Assessment/Plan (1) Alcohol [...] Documented By: Helen Bailon APRN 01/07 06/02 5292 Signed By: <Electronically signed by CATIA Sandsy> 01/19/24 1650 [facility] Work Phone: 1(111) 533-917410-12-2024 Progress note Author Jack wright [facility] January 19, 2024 8:01am Note Date/Time January 19, 2024 7 :59am [facility] [address] [place] [address] Psychiatry Progress Note Signed Patient: Shikha Loera MR#: [id number] : 1985 Acct:[id number] Age/Sex: 38 / F Adm Date: 4 Loc: Room: [address] [place] [address] Type : ADM IN Attending Dr: Jack [...] signed by Jack Kwon MD> 01/19/24 0801 [facility] Work Phone: 1(978) 648-300610-11-2024 Consult note Author Hari Nixon [facility] January 18, 2024 7:40pm Note Date/Time January 18, 2024 1 1:50am [facility] [address] [place] [address] Hospitalist Consult Note Signed Patient: Shikha Loera MR#: [id number] : 1985 Acct:[id number] Age/Sex: 38 / F Adm Date: 4 Loc: Room: [address] [place] [address] Type: ADM IN Attending Dr: Jack Kwon MD Copies to: Jack Kwon MD [facility] CATIA Dennis, DO~ HPI DATE OF [...] negative unless noted below or in HPI [facility] Medical History (Updated 01/18/24 @ 14:15 by [...] signed by Hari Nixon DO> 01/18/24 194 [facility] Work Phone: 1(294) 393-266210-11-2024 Progress note Author Jack wright [facility] January 18, 2024 2:15pm Note Date/Time January 18, 2024 9 :31am [facility] [address] [place] [address] Psychiatry Progress Note Signed Patient: Shikha Loera MR#: [id number] : 1985 Acct:[id number] Age/Sex: 38 / F Adm Date: 4 Loc: Room: [address] [place] [address] Type : ADM IN Attending Dr: Jack [...] makes no 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 She has [...] <Electronically signed by Jack Kwon MD> 01/18/24 7909 [facility] Work Phone: 1(817) 798-611310-10-2024 Progress note Author Jack wright [facility] January 17, 2024 6:35am Note Date/Time January 17, 2024 6 :35am [facility] [address] [place] [address] Psychiatry Progress Note Signed Patient: Shikha Loera MR#: [id number] : 1985 Acct:[id number] Age/Sex: 38 / F Adm Date: 4 Loc: 1S Room: [address] [place] [address] Type : ADM IN Attending Dr: Jack [...] discharge. Documented By: Jack Kwon MD 4 3045 Signed By: <Electronically signed by Jack Kwon MD> 01/17/24 0635 [facility] Work Phone: 1(492) 118-104110-09-2024 History and physical note Author Jack wright [facility] January 16, 2024 6:36am Note Date/Time January 15, 2024 11 :43am [facility] [address] [place] [address] Psychiatry H&P Signed Patient: Shikha Loera MR#: [id number] : 1985 Acct:[id number] Age/Sex: 38 / F Adm Date: Loc: Room: [address] [place] [address] Type: ADM IN Attending Dr: Jack Kwon MD Copies to: Jack Kwon MD [facility]~ Date of Service: 01/16/2024 HPI History [...] her best friend. Patient was here at [address] [place] [address] during this time because she attempted suicide [...] depression, alcohol use disorder Past hospitalizations: Previous [address] [place] [address] hospitalization 10-15 years ago for suicide attempt [...] internalstimuli. Insight: limited , emerging Judgment: limited [facility] Medical History (Updated 01/16/24 @ 06:36 by [...] Cloudy A Urine pH 5.5 Ur Specific Willard 1.005 Urine Protein 20 H Urine Glucose [...] signed by Jack Kwon MD> 01/16/24 0636 [facility] Work Phone: 1(389) 962-468412-19-2023 Evaluation note* Encounter Date Diagnosis Assessment Notes [...] issues. 6. Prescriptions: New patient 03-27-2023 uses [facility]. Mar, Vitamin D deficiency (ICD-10 - E55.9) Mar, Hyperlipidemia, unspecified hyperlipidemia type (ICD-10 - E78.5) Mar, Hypertension, unspecified type (ICD-10 - I10) Mar, Dietary counseling and surveillance (ICD-10 - Z71.3) Mar, BMI 21.0-21.9, adult (ICD-10 - Z68.21) Mar, History of gestational diabetes (ICD-10 - Z86.32) [facility] Other 10-27-2022 Hospital Discharge instructions Patient Education 02/02/2022 00:18:28 Pyelonephritis, Adult, Dshv-sz-Rkop Pyelonephritis, Adult Pyelonephritis is an infection that [...] even if youstart to feel better. Take vvys-rwy-vvkpdgr and prescription medicines only as told by [...] 05/03/2005 Document Revised: 01/28/2019 Document Reviewed: 01/28/2019 [employer] Patient Education 2020 [employer]. Follow Up Care 02/01/2022 21:25:38 With:AVERY BLANCA Address: [address] [place] [address] [address] [place] [address]- [phone] Business (1) When:02/05/2022 Comments:You can use the pain medication every 6 hours as needed for pain, take the Bactrim twice daily until you have completed the course. Please follow-up with your primary care doctor the next 2 to 3 days. Please return to the ED for any new or worsening symptoms. [facility]10-26-2022 Evaluation + Plan noteExtracted from: Title:ED Note [...] With Cult Reflex Urine Culture US Gallbladder [facility]Reason for visit Narrative* Chief Complaint Referral Echd Detox DM [facility] Work Phone: Evaluation noteNo assessment information available [facility] Work Phone: Evaluation note* Diagnosis Onset Date Resolution Status Alcohol use disorder acute BMI 21.0-21.9, adult acute Controlled diabetes mellitus with hyperglycemia acute Dietary counseling and surveillance acute Hyperlipidemia acute Vitamin D deficiency acute [facility] Work Phone: Evaluation note* Diagnosis Onset Date Resolution Status Alcohol intoxication acute Suicidal ideations acute [facility] Work Phone: Evaluation note* Diagnosis Onset Date Resolution Status Alcohol intoxication acute Alcohol use disorder acute Alcohol withdrawal acute Bipolar depression acute HTN (hypertension) acute Hyperlipidemia acute Hypokalemia acute Hypomagnesemia acute Hypothyroid acute Suicidal ideations acute Vitamin D deficiency acute [facility] Work Phone: History general Narrative - Reported* Type Description Date Medical History Hx of abnormal pap Medical History Hx of pancreatitis Medical History type II diabetes Medical History bipolar Surgical History hemangioma removed from lip at age 4 Hospitalization History See Above Hospitalization History pancreatitis [facility] Other Hospital course Narrative No data available for this section [facility] No data available for this section [facility] Chief Complaint and Reason for Visit [...] Member Role Status Dates Avery Blanca APRN [employer] Attending Provider Active Team Status: Inactive Member Role Status Dates Services [facility] Primary Care Provider Active Hal Orozco DO Emergency Provider Active Team Status: Inactive Member Role Status Dates Delfino Reese MD Attending Provider Active Yeyo Mcneill , [employer] Primary Care Provider Active Team Status: Active Member Role Status Dates Yeyo Mcneill , [employer] Primary Care Provider Active Team Status: Inactive Member Role Status Dates Yeyo Mcneill , [employer] Primary Care Provider Active Delfino Reese MD Attending Provider Active Team Status: Active Member Role Status Dates Avery Blanca APRN [employer] Primary Care Provider Act dario Team Status: Inactive Member Role Status Dates Becky Gambino APRN Attending Provider Active Start: March 27, 2023 End: March 27, 2023 Team Status: Inactive Member Role Status Dates Becky Gambino APRN Attending Provider Active Start: March 27, 2023 End: March 27, 2023 Avery Blanca APRN [employer] Primary Care Provider Act dario Start: March 27, 2023 End: March 27, 2023 Team Status: Inactive Member Role Status Dates Avery Blanca APRN [employer] Primary Care Provider Act dario Start: June 14, 2023 End: June 14, 2023 Becky Gambino APRN Attending Provider Active Start: June 14, 2023 End: June 14, 2023 Team Status: Inactive Member Role Status Dates Avery Blanca APRN [employer] Attending Provider Active Start: August 14, 2023 End: August 14, 2023 Team Status: Active Member Role Status Dates Services [facility] Primary Care Provider Active Team Status: Active Member Role Status Dates Avery Blanca APRN [employer] Primary Care Provider Act dario Start: November [...] Status: Inactive Member Role Status Dates Services [facility] Primary Care Provider Active Start: January 15, [...] January 15, 2024 End: January 22, 2024 Cicso Calderon MD Other Provider Active Start : [...] January 15, 2024 End: January 22, 2024 Nhaum Soni MD Other Provider Active Start: January [...] Status: Active Member Role Status Dates Services [facility] Primary Care Provider Active Start: January 16, [...] DATE CREATED AUTHOR AUTHOR'S ORGANIZ ATION 01/20/2023 [facility] DATE CREATED AUTHOR AUTHOR'S ORGANIZ ATION 03/07/2024 [facility] REASON FOR VISIT (unrecogniz [...] BE BASED ON THE PRIMARY CLINICAL RECORDS. [facility]. provides no warranty or guarantee of the accuracy or completeness of information in this document.
[2024-04-02] MEDS: CEPHALEXIN 500 MG CAPSULE PO (15:03)
[2024-04-02] MEDS: DOXYCYCLINE MONOHYDRATE 100 MG CAPSULE PO (15:03)
--- NOTE | 2024-04-02 15:03 | ED_ITS ---
HPI - Extremity Problem General Chief complaint: Extremity Problem, Nontraumatic Stated complaint: ue pain Time Seen by Provider: 04/02/24 14:47 Source: patient Mode of arrival: walk-in History of Present Illness HPI Narrative: Patient presented to the right arm redness and swelling that she noted yesterday after she was discharged from the hospital, the patient have an IV access in the right upper extremity but she noted that there was redness surrounding it and she marked it today she noted that the redness is growing more She denies any fever or chills she was just discharged from the hospital yesterday after alcohol withdrawal management Related Data Home Medications ?Medication ?Instructions ?Recorded ?Confirmed levothyroxine 50 mcg tablet 50 mcg PO DAILY 08/17/23 03/29/24 quetiapine 25 mg tablet 25 mg PO BID 08/17/23 03/29/24 amlodipine 10 mg tablet 10 mg PO DAILY 03/29/24 03/29/24 atorvastatin 20 mg tablet 20 mg PO .QHS 03/29/24 03/29/24 cholecalciferol (vitamin D3) 125 125 mcg PO DAILY 03/29/24 03/29/24 mcg (5,000 unit) capsule gabapentin 100 mg capsule 200 mg PO TID 03/29/24 03/29/24 hydroxyzine pamoate 50 mg capsule 50 mg PO Q6H PRN anxiety 03/29/24 03/29/24 lamotrigine 25 mg tablet 25 mg PO .QHS 03/29/24 03/29/24 mirtazapine 15 mg tablet 15 mg PO .QHS 03/29/24 03/29/24 multivitamin with folic acid 400 1 tab PO DAILY 03/29/24 03/29/24 mcg tablet (Daily-[place] (with folic acid)) thiamine HCl (vitamin B1) 100 mg 100 mg PO BID 03/29/24 03/29/24 tablet Previous Rx's ?Medication ?Instructions ?Recorded clonidine HCl 0.1 mg tablet 0.1 mg PO Q4H PRN Agitation #30 04/01/24 tabs lorazepam 1 mg tablet 1 mg PO Q4H PRN Alcohol Withdrawal 04/01/24 5 days #30 tabs cephalexin 500 mg capsule 500 mg PO Q8H 7 days #21 caps 04/02/24 doxycycline hyclate 100 mg tablet 100 mg PO BID 7 days #14 tabs 04/02/24 Allergies Allergy/AdvReac Type Severity Reaction Status Date / Time lisinopril Allergy Intermediate Verified 08/17/23 10:08 Review of Systems ROS Status of ROS 10 or more systems reviewed and unremark able except as noted in history and below [facility] Medical History (Updated 04/02/24 @ 14:58 by Juli Pelletier MD) Alcoholic intoxication ?F10.929 - Alcohol use, unspecified with intoxication, unspecified (ICD-10) Alcohol abuse ?F10.10 - Alcohol abuse, uncomplicated (ICD-10) Abdominal pain ?R10.9 - Unspecified abdominal pain (ICD-10) Family History Sister Family history of hypertension Aunt Alcoholism Uncle Alcoholism Social History Within the past year, how often did you have a drink containing alcohol: 4 or more times a week Within the past year, how many standard drinks containing alcohol did you have on a typical day: 7 to 9 Within the past year, how often did you have six or more drinks on one occasion: daily or almost daily Total score: 10 Score interpretation: A score of 3 or more indicates drinking is likely to affect patient's safety. Smoking status: Current every day smoker Do you use any of these nicotine containing products: vaping products Non-prescribed substance use: denies use Highest level of school completed/degree received: high school graduate Little interest or pleasure in doing things: not at all Feeling down, depressed, or hopeless: not at all Exam Narrative Exam Narrative: Nurses notes and vital signs reviewed and patient is not hypoxic. Right upper extremity: The patient have a good radial pulse bilaterally in the right upper extremity the patient have an area of redness measuring 15 cm x 5 cm that is all over the anterior of the forearm, there is an area where the IV access entrance wound there is no specific induration that was noted General: Well-appearing and in no apparent distress. Skin: Warm, dry, no pallor noted. No rash. Head: Normocephalic, atraumatic. Neck: Supple, non-tender. Eye: Pupils are equal, round and EOMI. No scleral icterus. Ears, Nose, Mouth, and Throat: TM are clear, no nasal mucosal hypertrophy. Oral mucosa is moist, no posterior oropharynx erythema, uvula is mid-line Cardiovascular: Regular Rate and Rhythm without murmur, gallop or rub. Respiratory: No accessory muscle use or respiratory distress. Lungs are clear to auscultation, no wheezing, rales or rhonchi Chest Wall: no tenderness Back: No midline thoracic or lumbar vertebral tenderness. No CVA tenderness GI: Abdomen is soft, non-distended. Normal bowel sounds. No masses appreciated. No tenderness to palpation. No rebound, guarding, or rigidity noted. Neurological: A&O x4. No cranial nerve dysfunction observed. No truncal ataxia. Moves all extremities. Sensation intact. Psychiatric: Cooperative and interactive. Normal mood and affect. Constitutional Vital Signs, click to edit/add: Last Vital Signs Temp 99.3 F 04/02/24 14:41 Pulse 124 H 04/02/24 14:41 Resp 18 04/02/24 14:41 BP 133/89 04/02/24 14:41 Pulse Ox 100 04/02/24 14:41 Course Vital Signs Vital signs: Vital Signs Temperature 99.3 F 04/02/24 14:41 Pulse Rate 124 H 04/02/24 14:41 Respiratory Rate 18 04/02/24 14:41 Blood Pressure 133/89 04/02/24 14:41 Pulse Oximetry 100 04/02/24 14:41 Temperature 99.3 F 04/02/24 14:41 Pulse Rate 124 H 04/02/24 14:41 Respiratory Rate 18 04/02/24 14:41 Blood Pressure 133/89 04/02/24 14:41 Pulse Oximetry 100 04/02/24 14:41 MDM - Extremity (Nontraumatic) MDM Narrative Medical decision making narrative: It was noted that the patient have some tachycardia but she was just discharged from the hospital yesterday with alcohol withdrawal and she is not drinking enough water she denies any fever chills or any other concerns She does not have any systemic symptoms of infection and she just was discharged from the hospital yesterday, this presentation could be due to mild cellulitis on top of phlebitis she was instructed on hydration starting doxycycline and Keflex after marking the area of redness The patient was instructed to come back in case of increase in the redness Patient instructed on hydration the importance of hydration for getting her symptoms controlled and also helping infection The patient is to follow up with primary care physician in next 2-3 days or to return to the emergency department should any of the signs or symptoms worsen or new symptoms develop. The patient agrees with the following Diagnosis and Treatment plan and the patient will be discharged home. Discharge Plan Discharge Chief Complaint: Extremity Problem, Nontraumatic Clinical Impression: Cellulitis, Phlebitis Patient Disposition: Home, Self-Care Time of Disposition Decision: 14:58 Condition: Good Prescriptions / Home Meds: New doxycycline hyclate 100 mg tablet 100 mg PO BID 7 Days Qty: 14 0RF cephalexin 500 mg capsule 500 mg PO Q8H 7 Days Qty: 21 0RF No Action levothyroxine 50 mcg tablet 50 mcg PO DAILY Patient Comments: LAST FILLED 12/17/23 quetiapine 25 mg tablet 25 mg PO BID atorvastatin 20 mg tablet 20 mg PO .QHS thiamine HCl (vitamin B1) 100 mg tablet 100 mg PO BID hydroxyzine pamoate 50 mg capsule 50 mg PO Q6H PRN (Reason: anxiety) lamotrigine 25 mg tablet 25 mg PO .QHS amlodipine 10 mg tablet 10 mg PO DAILY mirtazapine 15 mg tablet 15 mg PO .QHS gabapentin 100 mg capsule 200 mg PO TID cholecalciferol (vitamin D3) 125 mcg (5,000 unit) capsule 125 mcg PO DAILY multivitamin with folic acid [Daily-[place] (with folic acid)] 400 mcg tablet 1 tab PO DAILY clonidine HCl 0.1 mg Tablet 0.1 mg PO Q4H PRN (Reason: Agitation) Qty: 30 0RF lorazepam 1 mg Tablet 1 mg PO Q4H PRN (Reason: Alcohol Withdrawal) 5 Days Qty: 30 0RF Print Language: Sinhala Instructions: Cellulitis (ED) Referrals: Physician,Non-Staff, MD [Primary Care Provider] - 1 week
== END 2024-04-02 15:05 | disposition home or self-care (01) ==
PROVIDERS: Emergency Provider Emergency Medicine
DX: L03.113 Cellulitis of right upper limb (principal); I80.8 Phlebitis and thrombophlebitis of other sites
CPT/HCPCS: 99283

== ENCOUNTER 2024-04-10 07:44 | Emergency (ER) | payer BC, OTHER, SELFPAY ==
[2024-04-10] VITALS (29 sets, daily range): BP systolic 116–156; BP diastolic 85–109; PULSE 92–111; TEMP 36.8; O2SAT 94–111; BMI 21.5
--- NOTE | 2024-04-10 07:56 | ECG_ITS ---
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
--- NOTE | 2024-04-10 07:57 | ED_ITS ---
HPI HPI - General Adult General Chief complaint: Alcohol Stated complaint: ALCOHOL WITHDRAWLS Time Seen by Provider: 04/10/24 07:50 History of Present Illness HPI narrative: 38-year-old female presents to the emergency department for alcohol issues. She is complaining of nausea and feeling shaky. She drinks alcohol every day and was in this hospital for alcohol withdrawal about 2 weeks ago. No fever or complaints of chest pain. She last drank alcohol this morning and states that she drank a little. Related Data Home Medications ?Medication ?Instructions ?Recorded ?Confirmed levothyroxine 50 mcg tablet 50 mcg PO DAILY 08/17/23 03/29/24 quetiapine 25 mg tablet 25 mg PO BID 08/17/23 03/29/24 amlodipine 10 mg tablet 10 mg PO DAILY 03/29/24 03/29/24 atorvastatin 20 mg tablet 20 mg PO .QHS 03/29/24 03/29/24 cholecalciferol (vitamin D3) 125 125 mcg PO DAILY 03/29/24 03/29/24 mcg (5,000 unit) capsule gabapentin 100 mg capsule 200 mg PO TID 03/29/24 03/29/24 hydroxyzine pamoate 50 mg capsule 50 mg PO Q6H PRN anxiety 03/29/24 03/29/24 lamotrigine 25 mg tablet 25 mg PO .QHS 03/29/24 03/29/24 mirtazapine 15 mg tablet 15 mg PO .QHS 03/29/24 03/29/24 multivitamin with folic acid 400 1 tab PO DAILY 03/29/24 03/29/24 mcg tablet (Daily-Augustina (with folic acid)) thiamine HCl (vitamin B1) 100 mg 100 mg PO BID 03/29/24 03/29/24 tablet Previous Rx's ?Medication ?Instructions ?Recorded clonidine HCl 0.1 mg tablet 0.1 mg PO Q4H PRN Agitation #30 04/01/24 tabs lorazepam 1 mg tablet 1 mg PO Q4H PRN Alcohol Withdrawal 04/01/24 5 days #30 tabs cephalexin 500 mg capsule 500 mg PO Q8H 7 days #21 caps 04/02/24 doxycycline hyclate 100 mg tablet 100 mg PO BID 7 days #14 tabs 04/02/24 Allergies Allergy/AdvReac Type Severity Reaction Status Date / Time lisinopril Allergy Severe Swelling Verified 04/10/24 08:04 of Lip/Tongue/Throat Opioid HPI Opioid Management Most Recent Opioid Data: Last Pain Scale 2 03/30/24 15:55 03/30/24 Last ORT Total Score 5 03/28/24 17:14 03/28/24 Last ORT Risk Category Moderate Risk 03/28/24 17:14 03/28/24 Ur Phencyclidine Scrn Negative (NEGATIVE) 03/29/24 09:45 03/10 05/02 Review of Systems ROS Narrative A ten point review of systems is negative except as noted above. [facility] Medical History (Updated 04/10/24 @ 13:12 by Garcia Johns MD) Alcoholic hepatitis ?K70.10 - Alcoholic hepatitis without ascites (ICD-10) Alcohol withdrawal syndrome ?F10.939 - Alcohol use, unspecified with withdrawal, unspecified (ICD-10) Hypothyroidism ?E03.9 - Hypothyroidism, unspecified (ICD-10) Type 2 diabetes mellitus ?E11.9 - Type 2 diabetes mellitus without complications (ICD-10) Bipolar 1 disorder ?F31.9 - Bipolar disorder, unspecified (ICD-10) HTN (hypertension) ?I10 - Essential (primary) hypertension (ICD-10) Alcoholic intoxication ?F10.929 - Alcohol use, unspecified with intoxication, unspecified (ICD-10) Alcohol abuse ?F10.10 - Alcohol abuse, uncomplicated (ICD-10) Abdominal pain ?R10.9 - Unspecified abdominal pain (ICD-10) Family History Sister Family history of hypertension Aunt Alcoholism Uncle Alcoholism Social History Within the past year, how often did you have a drink containing alcohol: 4 or more times a week Within the past year, how many standard drinks containing alcohol did you have on a typical day: 7 to 9 Within the past year, how often did you have six or more drinks on one occasion: daily or almost daily Total score: 10 Score interpretation: A score of 3 or more indicates drinking is likely to affect patient's safety. Smoking status: Current every day smoker Do you use any of these nicotine containing products: vaping products Non-prescribed substance use: denies use Highest level of school completed/degree received: high school graduate Little interest or pleasure in doing things: not at all Feeling down, depressed, or hopeless: nearly every day Exam Narrative Exam Narrative: Nurses note and vital signs reviewed and patient is not hypoxic. General: The patient appears well and in no apparent distress. Patient is resting comfortably on cart. Skin: Warm, dry, no pallor noted. There is no rash noted. Head: Normocephalic, atraumatic Eye: Normal conjunctiva, no drainage Ears, Nose, Mouth, and Throat: oral mucosa is moist. Nares patent. Cardiovascular: Regular Rate and Rhythm, tachycardic Respiratory: Patient is in no distress, no accessory muscle use, lungs are clear to auscultation, no wheezing, rales or rhonchi Back: non-tender GI: Soft and nontender Musculoskeletal: The patient has no evidence of calf tenderness, no pitting edema, symmetrical pulses noted bilaterally Neurological: A&O x4, normal speech Psychiatric: Cooperative Constitutional Vital Signs, click to edit/add: Last Vital Signs Temp 98.3 F 04/10/24 07:54 Pulse 92 H 04/10/24 08:10 Resp 22 H 04/10/24 08:10 BP 138/105 H 04/10/24 12:46 Pulse Ox 100 04/10/24 12:40 O2 Del Method Room Air 04/10/24 07:54 Course Vital Signs Vital signs: Vital Signs Temperature 98.3 F 04/10/24 07:54 Pulse Rate 111 H 04/10/24 07:54 Respiratory Rate 16 04/10/24 07:54 Blood Pressure 156/109 H 04/10/24 07:54 Pulse Oximetry 96 04/10/24 07:54 Oxygen Delivery Method Room Air 04/10/24 07:54 Temperature 98.3 F 04/10/24 07:54 Pulse Rate 92 H 04/10/24 08:10 Respiratory Rate 22 H 04/10/24 08:10 Blood Pressure 138/105 H 04/10/24 12:46 Pulse Oximetry 100 04/10/24 12:40 Oxygen Delivery Method Room Air 04/10/24 07:54 Medical Decision Making MDM Narrative Medical decision making narrative: Alcohol level is 505. She is not in withdrawal. She was given IV fluids and antinausea medicine and is able to be discharged home. She was encouraged to obtain alcohol abuse treatment. Treatment diagnosis and follow-up were discussed with the patient Differential Diagnosis Differential Diagnosis: Alcohol intoxication, dehydration Lab Data Lab results reviewed: Yes I reviewed the patient's lab results Labs: Lab Results 04/10/24 Range/Units 08:15 WBC 4.3 (4.0-11.0) 10^3/uL RBC 4.50 (4.20-5.40) 10^6/uL Hgb 14.3 (12.0-16.0) g/dL Hct 41.7 (36.0-48.0) % MCV 92.7 (81.0-99.0) fL MCH 31.8 (26.7-34.0) pg MCHC 34.3 (29.9-35.2) g/dL RDW 13.3 (11.0-15.0) % Plt Count 404 (150-450) 10^3/uL MPV 9.1 L (9.5-13.5) fL Neut % (Auto) 58.6 (43.0-75.0) % Lymph % (Auto) 29.4 (20.5-60.0) % [facility] [place] [facility] % (Auto) 6.0 (1.7-12.0) % Eos % (Auto) 0.5 L (0.9-7.0) % Baso % (Auto) 5.3 H (0.2-2.0) % Neut # (Auto) 2.5 (1.4-6.5) 10^3/uL Lymph # (Auto) 1.3 (1.2-3.8) 10^3/uL [facility] # (Auto) 0.3 (0.3-0.8) 10^3/uL Eos # (Auto) 0.0 (0.0-0.7) 10^3/uL Baso # (Auto) 0.2 H (0.0-0.1) 10^3/uL Abs Immat Gran (auto) 0.01 (0.00-0.03) 10^3/uL Imm/Tot Granulo (auto) 0.2 (0.0-0.5) % Sodium 141 (136-145) mmol/L Potassium 3.7 (3.5-5.1) mmol/L Chloride 103 (98-107) mmol/L Carbon Dioxide 21.1 (21.0-32.0) mmol/L Anion Gap 20.6 BUN 4.0 L (7.0-18.0) mg/dL Creatinine 0.63 (0.55-1.02) mg/dL Est GFR ( Amer) >60 (>=60 mL/min/1.73m^2) Est GFR (Non-Af Amer) >60 (>=60 mL/min/1.73m^2) BUN/Creatinine Ratio 6.3 Glucose 104 (74-106) mg/dL Calcium 8.7 (8.5-10.1) mg/dL Total Bilirubin 0.4 (0.2-1.0) mg/dL Direct Bilirubin 0.2 (0.0-0.2) mg/dL AST 106 H (15-37) U/L ALT 88 H (14-59) U/L Alkaline Phosphatase 143 H (46-116) U/L Total Protein 7.8 (6.4-8.2) g/dL Albumin 3.9 (3.4-5.0) g/dL Globulin 3.9 g/dL Albumin/Globulin Ratio 1.0 Ethanol Quant 505 mg/dL ECG Data Attestation: I personally reviewed and interpreted this ECG as follows: (EKG on my interpretation shows normal sinus rhythm with rate of 92 and no acute change.) Discharge Plan Discharge Chief Complaint: Alcohol Clinical Impression: Alcohol intoxication Patient Disposition: Home, Self-Care Time of Disposition Decision: 13:12 Condition: Good Mode of Transportation: Private Vehicle Prescriptions / Home Meds: No Action levothyroxine 50 mcg tablet 50 mcg PO DAILY Patient Comments: LAST FILLED 12/17/23 quetiapine 25 mg tablet 25 mg PO BID doxycycline hyclate 100 mg tablet 100 mg PO BID 7 Days Qty: 14 0RF cephalexin 500 mg capsule 500 mg PO Q8H 7 Days Qty: 21 0RF atorvastatin 20 mg tablet 20 mg PO .QHS thiamine HCl (vitamin B1) 100 mg tablet 100 mg PO BID hydroxyzine pamoate 50 mg capsule 50 mg PO Q6H PRN (Reason: anxiety) lamotrigine 25 mg tablet 25 mg PO .QHS amlodipine 10 mg tablet 10 mg PO DAILY mirtazapine 15 mg tablet 15 mg PO .QHS gabapentin 100 mg capsule 200 mg PO TID cholecalciferol (vitamin D3) 125 mcg (5,000 unit) capsule 125 mcg PO DAILY multivitamin with folic acid [Daily-Augustina (with folic acid)] 400 mcg tablet 1 tab PO DAILY clonidine HCl 0.1 mg Tablet 0.1 mg PO Q4H PRN (Reason: Agitation) Qty: 30 0RF lorazepam 1 mg Tablet 1 mg PO Q4H PRN (Reason: Alcohol Withdrawal) 5 Days Qty: 30 0RF Print Language: Finnish Instructions: Alcohol Intoxication (ED), Abuse of Alcohol (ED) Referrals: Physician,Non-Staff, MD [Primary Care Provider] - 1 week
--- OUTSIDE RECORDS SUMMARY | 2024-04-10 08:08 | XMS_ITS | CCD ---
Author Organization [facility] Care Team Providers Care Scheduler Conveyor Name Role Phone [facility] Primary Care Provider [phone] DO Hal Orozco Emergency Provider CATIA Blanca Attending Provider MD Delfino Reese Attending Provider [phone] BRADY Mcneill Primary Care Provider [phone] AVERY BLANCA Primary Care Physician [phone] MAGGY WORLEY Consulting Unavailable MISC, DR GOMEZ Primary Care Unavailable MARKER, DR MARVIN Attending Unavailable MARKER, DR MARVIN Admitting Unavailable MARKER, DR MARVIN Consulting Unavailable DEL ROSARIO, GITodd Consulting Unavailable MISC, DR GOMEZ Primary Care Unavailable HOY, DR BRUNO Attending Unavailable HOY, DR BRUNO Admitting Unavailable MCGUIRE, DR DEON Anthony Consulting Unavailable HOY, DR BRUON Consulting Unavailable HAY, DR MEI Consulting Unavailable [...] Care Provider MD Jack Kwon Attending Provider [facility] Primary Care Provider CATIA Kerr Emergency Provider [phone] MD Jack Kwon Admit Provider EFFIE Deal Other Provider Unavailable EFFIE Romero Other Provider Unavailable EFFIE Thornton Other Provider Unavailable EFFIE Tom Other Provider Unavailable Mio RN Estella Other Provider Unavailable DO Chandan Whipple Other Provider [phone] MD Cisco Calderon Other Provider DO Jaime Alcocer Other Provider MD Srini Chavez Other Provider MD Ericka Dunn Other Provider MD Cm Escalona Other Provider Unavailable CATIA Bailon Other Provider [phone] MD Giuliano Serna Other Provider MD Albin [...] Other Provider DO Diego Gregg Other Provider [phone] MD Carlos Johnson Other Provider CATIA Mcguire Other Provider CATIA Woods Other Provider MD Ashlee Osuna Other Provider MD Dariel Spence Other Provider [phone] DangeolDO Ermias forbes T Other Provider DO Gladys Matthews Other Provider MD Chato Juarez Other Provider MD Delma Kuo Other Provider CATIA Azar Other Provider [phone] MD Gurvinder Sosa Other Provider MD Sajan Knapp Other Provider EFFIE Carr Other Provider Unavailable Avery Blanca Primary Care Unavailable Becky Gambino Admitting Unavailable Becky Gambino Attending Unavailable Avery Blanca Attending Unavailable Avery Blanca Admitting Unavailable [facility] Primary Care Unavaila Avery [...] Swelling of Lip/Tongue/Throa t, Anaphylactic reaction, Unknown [facility] Medications Current Medications Medication Drug Class(es) Dates Sig (Normalized) Sig (Original) acetaminophen 325 mg / HYDROcodone bitartrate 5 mg oral tablet (1 source) Opioid Agonist Start: 02-02-2022 Hendricks 325 mg-5 mg oral tablet 1 tab(s), [...] 4 Chronic Other aftercare (1 source) 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 therapy; 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] Onset: 2 Episodic Other [...] Clr Calc Pharmacy 94.82 Normal [facility] Comment on above: Order Comment: DRAWN BY NAYANA Performed By: #### C MP, CBC, ETOH #### [address] GFR/1.73 sq M.predicted MDRD (S/P/Bld) [Vol rate/Area] mL/min/{1.73_m2} Normal [facility] Comment on above: Order Comment: DRAWN BY NAYANA Performed By: #### C MP, CBC, ETOH #### [facility] [address] Calcium [Mass/volume] in Ser um or PlasmaOrdered By: Helen Bailon on 01-20-2024 Calcium [Mass/Vol] 9.3 mg/dL Normal 8.6-10.3 [facility] Comment on above: Order Comment: DRAWN BY MK Performed By: #### C MP, CBC, ETOH #### [facility] [address] Capillary blood glucose archie urement by glucometer (mass/volume)Ordered By: Jack Kwon on 01-20-2024 Glucose [Mass/Vol] 161 mg/dL Normal [facility] Comment on above: Random Glucose Refer ence Range is dependent on time and content of last meal. Glucose of more than 200 mg/dL in a nonstressed, ambulatory subject supports the diagnosis of Diabetes Mellitus. Result Comment: [place] om Glucose Reference Range is dependent on time and content of last meal. Glucose of more than 200 mg/dL in a nonstressed, ambulatory subject supports the diagnosis of Diabetes Mellitus. PERFORMED BY: [place] [address] PATHOLOGIST BAR TURNER OSMEL BLUE M.D. Performed By: #### C MP, CBC, ETOH #### [facility] [address] [place] [address] Carbon dioxide, total [Moles /volume] in Serum or PlasmaOrdered By: Helen Bailon on 01-20-2024 CO2 [Moles/Vol] 22.5 mmol/L Normal 21.0-31.0 [facility] Comment on above: Order Comment: DRAWN BY MK Performed By: #### C MP, CBC, ETOH #### [facility] [address] [place] [address] [place] Chloride [Moles/volume] in S ben or PlasmaOrdered By: Helen Bailon on 01-20-2024 Chloride [Moles/Vol] 107 mmol/L Normal 98-107 [facility] Comment on above: Order Comment: DRAWN BY MK Performed By: #### C MP, CBC, ETOH #### [facility] [address] Creatinine [Mass/volume] in Serum or PlasmaOrdered By: Helen Bailon on 01-20-2024 Creatinine [Mass/Vol] 0.77 mg/dL Normal 0.60-1.20 [facility] Comment on above: Order Comment: DRAWN BY MK Performed By: #### C MP, CBC, ETOH #### [facility] [address] Glucose [Mass/volume] in Ser um or PlasmaOrdered By: Helen Bailon on 01-20-2024 Glucose [Mass/Vol] 98 mg/dL Normal 70-100 [facility] Comment on above: ADA recommended refe rence rangeRandom Glucose Reference Range is dependent on time and content of last meal. Glucose of more than 200 mg/dL in a nonstressed, ambulatory subject supports the diagnosis of Diabetes Mellitus. Order Comment: DRAWN BY MK Result Comment: Gilbert om Glucose Reference Range is dependent on time and content of last meal. Glucose of more than 200 mg/dL in a nonstressed, ambulatory subject supports the diagnosis of Diabetes Mellitus. ADA recommended reference range Performed By: #### C MP, CBC, ETOH #### [facility] [address] Magnesium [Mass/volume] in S ben or PlasmaOrdered By: Helen Bailon on 01-20-2024 Magnesium [Mass/Vol] 1.6 mg/dL Low 1.9-2.7 [facility] Comment on above: Order Comment: DRAWN BY Result Comment: PERF ORMED BY: [place] [address] PATHOLOGIST BAR TURNER OSMEL BLUE M.D. Performed By: #### C MP, CBC, ETOH #### [facility] [address] No Panel InformationOrdered By: Helen Bailon on 01-20-2024 Estimated GFR (CKD-EPI) > 60.0 mL/Min [facility] Creatinine Clearance (Chem 94.82 [facility] Potassium [Moles/volume] in Serum or PlasmaOrdered By: Helen Uvaldo on 01-20-2024 Potassium [Moles/Vol] 3.9 mmol/L Normal 3.5-5.1 [facility] Comment on above: Order Comment: DRAWN BY MK Performed By: #### C MP, CBC, ETOH #### [facility] [address] Serum or plasma anion gap de terminationOrdered By: Helen Uvaldo on 01-20-2024 Anion gap [Moles/Vol] 13.4 mmol/L Normal 6.0-15.0 [facility] Comment on above: Order Comment: DRAWN BY MK Performed By: #### C MP, CBC, ETOH #### [facility] [address] [place] [address] [place] Sodium [Moles/volume] in Ser um or PlasmaOrdered By: Helen Uvaldo on 01-20-2024 Sodium [Moles/Vol] 139 mmol/L Normal 136-145 [facility] Comment on above: Order Comment: DRAWN BY MK Performed By: #### C MP, CBC, ETOH #### [facility] [address] [place] [address] [place] Urea nitrogen [Mass/volume] in Serum or PlasmaOrdered By: Helen Uvaldo on 01-20-2024 Urea nitrogen [Mass/Vol] 11 mg/dL Normal 7-25 [facility] Comment on above: Order Comment: DRAWN BY MK Performed By: #### C MP, CBC, ETOH #### [facility] [address] [place] [address] [place] A1C with Estimated Average G verotodd 01-19-2024 Glucose [Mass/Vol] 105 mg/dL Normal [facility] Comment on above: Order Comment: Comme nt ok to use previously drawn lab Result Comment: PERF ORMED BY: [place] [address] PATHOLOGIST BAR TURNER OSMEL BLUE M.D. Performed By: #### A 1C [facility] eA #### [facility] [address] [place] [address] [place] Alanine aminotransferase [En zymatic activity/volume] in Serum or PlasmaOrdered By: Helentodd Bailon on 01-19-2024 ALT [Catalytic activity/Vol] 76 U/L High 7-52 [facility] Comment on above: Performed By: #### C MP, CBC, ETOH #### [facility] [address] [place] [address] [place] Albumin [Mass/volume] in Ser um or Plasma by Bromocresol green (BCG) dye binding methoOrdered By: Helen Bailon on 01-19-2024 Albumin BCG dye [Mass/Vol] 3.9 g/dL 3.5-5.7 [facility] Alkaline phosphatase [Enzyma tic activity/volume] in Serum or PlasmaOrdered By: Helen Bailon on 01-19-2024 ALP [Catalytic activity/Vol] 80 U/L Normal 34-104 [facility] Comment on above: Performed By: #### C MP, CBC, ETOH #### [facility] [address] Aspartate aminotransferase [ Enzymatic activity/volume] in Serum or PlasmaOrdered By: Helen Bailon on 01-19-2024 AST [Catalytic activity/Vol] 110 U/L High 13-39 [facility] Comment on above: Performed By: #### C MP, CBC, ETOH #### [facility] [address] [place] [address] [place] Bilirubin.total [Mass/volume ] in Serum or PlasmaOrdered By: Helen Bailon on 01-19-2024 Bilirubin [Mass/Vol] 0.7 mg/dL Normal 0.3-1.0 [facility] Comment on above: Performed By: #### C MP, CBC, ETOH #### [facility] [address] [place] [id number] [place] Comprehensive Metabolic Pane mike 01-19-2024 Albumin [Mass/Vol] 3.9 g/dL Normal 3.5-5.7 [facility] Comment on above: Performed By: #### C MP, CBC, ETOH #### [facility] [address] [place] [id number] [place] Anion gap [Moles/Vol] 14.1 mmol/L Normal 6.0-15.0 [facility] Comment on above: Performed By: #### C MP, CBC, ETOH #### [facility] [address] [place] [id number] [place] Calcium [Mass/Vol] 9.3 mg/dL Normal 8.6-10.3 [facility] Comment on above: Performed By: #### C MP, CBC, ETOH #### [facility] [address] [place] [address] [place] Chloride [Moles/Vol] 108 mmol/L High 98-107 [facility] Comment on above: Performed By: #### C MP, CBC, ETOH #### [facility] [address] [place] [address] [place] CO2 [Moles/Vol] 22.1 mmol/L Normal 21.0-31.0 [facility] Comment on above: Performed By: #### C MP, CBC, ETOH #### [facility] [address] [place] [address] [place] Creatinine [Mass/Vol] 0.63 mg/dL Normal 0.60-1.20 [facility] Comment on above: Performed By: #### C MP, CBC, ETOH #### [place] [address] [place] Creatinine Clr Calc Pharmacy 115.90 Normal [facility] Comment on above: Performed By: #### C MP, CBC, ETOH #### [facility] [address] [place] [address] [place] GFR/1.73 sq M.predicted MDRD (S/P/Bld) [Vol rate/Area] mL/min/{1.73_m2} Normal [facility] Comment on above: Performed By: #### C MP, CBC, ETOH #### [facility] [address] [place] [id number] [place] Glucose [Mass/Vol] 85 mg/dL Normal 70-100 [facility] Comment on above: Result Comment: [facility] Glucose Reference Range is dependent on time and content of last meal. Glucose of more than 200 mg/dL in a nonstressed, ambulatory subject supports the diagnosis of Diabetes Mellitus. ADA recommended reference range Performed By: #### C MP, CBC, ETOH #### [facility] [address] Potassium [Moles/Vol] 3.2 mmol/L Low 3.5-5.1 [facility] Comment on above: Performed By: #### C MP, CBC, ETOH #### [facility] [address] [place] [address] [place] Sodium [Moles/Vol] 141 mmol/L Normal 136-145 [facility] Comment on above: Performed By: #### C MP, CBC, ETOH #### [facility] [address] [place] [id number] [place] Urea nitrogen [Mass/Vol] 7 mg/dL Normal 7-25 [facility] Comment on above: Performed By: #### C MP, CBC, ETOH #### [facility] [address] [place] [id number] [place] Folate [Mass/volume] in Seru m or PlasmaOrdered By: Helen Bailon on 01-19-2024 Folate [Mass/Vol] 36.0 ng/mL >5.9 [facility] Comment on above: Folate reference ran ge: >5.9 ng/mlThe WHO technical consultation on folate and vitamin [id number] has determined that folate concentrations lessthan 4 ng/ml are considered deficient. Glucose mean value [Mass/vol ume] in Blood Estimated from glycated hemoglobinOrdered By: Helen Bailon on 01-19-2024 Average glucose Estimated from glycated hemoglobin (Bld) [Mass/Vol] 105 mg/dL [facility] Hemoglobin A1c percentageOrd ered By: Helen Bailon on 01-19-2024 HbA1c (Bld) [Mass fraction] 5.3 % Normal 4.3-5.6 [facility] Comment on above: Increased risk for d iabetes: 5.7 - 6.4diabetes: >6.4glycemic control for adults with diabetes: <7.0 Order Comment: Comme nt ok to use previously drawn lab Result Comment: Incr eased risk for diabetes: 5.7 - 6.4 diabetes: >6.4 glycemic control for adults with diabetes: <7.0 Performed By: #### A 1C [facility] #### [address] Lipase [Enzymatic activity/v olume] in Serum or PlasmaOrdered By: Helen Bailon on 01-19-2024 Lipase [Catalytic activity/Vol] U/L Low 11.0-82.0 [facility] Comment on above: Performed By: #### C MP, CBC, ETOH #### [address] Phosphate [Mass/volume] in S ben or PlasmaOrdered By: Helen Bailon on 01-19-2024 Phosphate [Mass/Vol] 6.4 mg/dL High 2.5-4.5 [facility] Comment on above: Performed By: #### C MP, CBC, ETOH #### [address] Protein [Mass/volume] in Ser um or PlasmaOrdered By: Helen Bailon on 01-19-2024 Protein [Mass/Vol] 6.7 g/dL Normal 6.4-8.9 [facility] Comment on above: Performed By: #### C MP, CBC, ETOH #### [address] Serum globulin measurement b y calculation (mass/volume)Ordered By: Helen Bailon on 01-19-2024 Globulin (S) [Mass/Vol] 2.8 g/dL Normal [facility] Comment on above: Performed By: #### C MP, CBC, ETOH #### [address] Serum or plasma albumin/glob ulin mass ratioOrdered By: Helen Bailon on 01-19-2024 Albumin/Globulin [Mass ratio] 1.4 {ratio} [facility] Comment on above: Performed By: #### C MP, CBC, ETOH #### [address] Vit. B12/Folate Profileon Folate 36.0 ng/mL Normal >5.9 [facility] Comment on above: Result Comment: Dorie te reference range: >5.9 ng/ml The WHO technical consultation on folate and vitamin b12 deficiencies has determined that folate concentrations less than 4 ng/ml are considered deficient. PERFORMED BY: [place] [address] PATHOLOGIST BAR TURNER OSMEL BLUE M.D. Performed By: #### C MP, CBC, ETOH #### [address] Vitamin B1 (Thiamine) Bloodo n 01-19-2024 Vitamin B1 (Thiamine) Blood 207.3 High 66.5-200.0 [facility] Comment on above: Result Comment: This test was developed and its performance characteristics determined by [employer]. It has not been cleared or approved by the Food and Drug Administration. Performed at: [address] [id number] Brass Cleaner: Charlie Manriquez MD, Phone: [phone] PERFORMED BY: [place] [address] PATHOLOGIST BAR TURNER OSMEL BLUE M.D. Performed By: #### C MP, CBC, ETOH #### [address] Vitamin B12 ser/plasOrdered By: Helen Bailon on 01-19-2024 Cobalamin (Vitamin B12) [Mass/Vol] 392 pg/mL Normal 180-914 [facility] Comment on above: Performed By: #### C MP, CBC, ETOH #### [place] [id number] [facility] Comprehensive Metabolic Pane mike 01-18-2024 Albumin [Mass/Vol] 4.5 g/dL Normal 3.5-5.7 [facility] Comment on above: Performed By: #### C MP, CBC, ETOH #### [place] [address] [place] Albumin/Globulin [Mass ratio] 1.5 {ratio} Normal [facility] Comment on above: Performed By: #### C MP, CBC, ETOH #### [address] ALP [Catalytic activity/Vol] 97 U/L Normal 34-104 [facility] Comment on above: Performed By: #### C MP, CBC, ETOH #### [address] ALT [Catalytic activity/Vol] 66 U/L High 7-52 [facility] Comment on above: Performed By: #### C MP, CBC, ETOH #### [address] Anion gap [Moles/Vol] 14.5 mmol/L Normal 6.0-15.0 [facility] Comment on above: Performed By: #### C MP, CBC, ETOH #### [address] AST [Catalytic activity/Vol] 103 U/L High 13-39 [facility] Comment on above: Performed By: #### C MP, CBC, ETOH #### [place] [address] [place] Bilirubin [Mass/Vol] 0.7 mg/dL Normal 0.3-1.0 [facility] Comment on above: Performed By: #### C MP, CBC, ETOH #### [place] [address] [place] Calcium [Mass/Vol] 10.2 mg/dL Normal 8.6-10.3 [facility] Comment on above: Performed By: #### C MP, CBC, ETOH #### [place] [address] [place] Chloride [Moles/Vol] 105 mmol/L Normal 98-107 [facility] Comment on above: Performed By: #### C MP, CBC, ETOH #### [address] CO2 [Moles/Vol] 23.9 mmol/L Normal 21.0-31.0 [facility] Comment on above: Performed By: #### C MP, CBC, ETOH #### [address] Creatinine [Mass/Vol] 0.66 mg/dL Normal 0.60-1.20 [facility] Comment on above: Performed By: #### C MP, CBC, ETOH #### [address] Creatinine Clr Calc Pharmacy 110.63 Normal [facility] Comment on above: Result Comment: PERF ORMED BY: [place] [address] PATHOLOGIST BAR TURNER OSMEL BLUE M.D. Performed By: #### C MP, CBC, ETOH #### [address] GFR/1.73 sq M.predicted MDRD (S/P/Bld) [Vol rate/Area] mL/min/{1.73_m2} Normal [facility] Comment on above: Performed By: #### C MP, CBC, ETOH #### [address] Globulin (S) [Mass/Vol] 3.1 g/dL Normal [facility] Comment on above: Performed By: #### C MP, CBC, ETOH #### [address] Glucose [Mass/Vol] 135 mg/dL High 70-100 [facility] Comment on above: Result Comment: [place] Glucose Reference Range is dependent on time and content of last meal. Glucose of more than 200 mg/dL in a nonstressed, ambulatory subject supports the diagnosis of Diabetes Mellitus. ADA recommended reference range Performed By: #### C MP, CBC, ETOH #### [address] Potassium [Moles/Vol] 3.4 mmol/L Low 3.5-5.1 [facility] Comment on above: Performed By: #### C MP, CBC, ETOH #### [facility] [address] [place] [address] [place] Protein [Mass/Vol] 7.6 g/dL Normal 6.4-8.9 [facility] Comment on above: Performed By: #### C MP, CBC, ETOH #### [facility] [address] [place] [address] [place] Sodium [Moles/Vol] 140 mmol/L Normal 136-145 [facility] Comment on above: Performed By: #### C MP, CBC, ETOH #### [facility] [address] [place] [address] [place] Urea nitrogen [Mass/Vol] 5 mg/dL Low 7-25 [facility] Comment on above: Performed By: #### C MP, CBC, ETOH #### [facility] [address] Magnesiumon 01-18-2024 Magnesium [Mass/Vol] 1.4 mg/dL Low 1.9-2.7 [facility] Comment on above: Result Comment: PERF ORMED BY: [place] [address] PATHOLOGIST BAR TURNER OSMEL BLUE M.D. Performed By: #### C MP, CBC, ETOH #### [place] [address] [place] Cholesterol [Mass/volume] in Serum or PlasmaOrdered By: Jack Kwon on 01-16-2024 Cholesterol [Mass/Vol] 270 mg/dL High 140-200 [facility] Comment on above: Chol less than 200 m g/dl low riskChol 201-239 mg/dl borderline riskChol 240 mg/dl and greater high risk Result Comment: Chol less than 200 mg/dl low risk Chol 201-239 mg/dl borderline risk Chol 240 mg/dl and greater high risk Performed By: #### C MP, CBC, ETOH #### [place] [address] [place] Cholesterol in LDL Calc [Mas s/Vol]Ordered By: Jack Kwon on 01-16-2024 Cholesterol in LDL [Mass/Vol] 134 mg/dL High 0-100 [facility] Comment on above: LDL ATP III CLASSIFI CATIONLDL less than 100 mg/dL OptimalLDL 100-129 mg/dL Near or above optimalLDL 130-159 mg/dL Borderline highLDL 160-189 mg/dL HighLDL greater than 189 mg/dL Very high Cholesterol in VLDL Calc [Ma ss/Vol]Ordered By: Jack Kwon on 01-16-2024 Cholesterol in VLDL [Mass/Vol] 28 mg/dL [facility] ECG 12 lead ECGon 01-16-2024 ECG 12 lead ECG [place] [address] Electrocardiograph Report Signed Patient: Shikha Loera MR#: [id number] : 1985 Acct:[id number] Age/Sex: 38 / F ADM Date: 01/15/24 Loc: Room: [address] [place] [address] Type: ADM IN Attending Dr: Jack Kwon [...] rhythm Normal ECG Confirmed by Almaz Armando ([id number]) on 01/16/2024 4:49:39 PM Referred By: Electronically Signed By: Almaz Armando Transcribed By: MUS Signed By Almaz Armando MD [id number] [phone] Normal [facility] Lipid Panelon 01-16-2024 LDL Cholesterol,Calculated 134 mg/dL High 0-100 [facility] Comment on above: Result Comment: LDL ATP III CLASSIFICATION LDL less than 100 mg/dL Optimal LDL 100-129 mg/dL Near or above optimal LDL 130-159 mg/dL Borderline high LDL 160-189 mg/dL High LDL greater than 189 mg/dL Very high Performed By: #### C MP, CBC, ETOH #### [facility] [address] Triglyceride w/Reflex 143 mg/dL Normal 0-149 [facility] Comment on above: Result Comment: TRIG ATP III CLASSIFICATION TRIG less than 150 mg/dL Normal TRIG 150-199 mg/dL Borderline high TRIG 200-500 mg/dL High TRIG greater than 500 mg/dL Very high Standard traceable to the Center for Disease Conrtrol and Prevention (CDC) test method. Performed By: #### C MP, CBC, ETOH #### [facility] [address] VLDL CHOLESTEROL 28 mg/dL Normal [facility] Comment on above: Performed By: #### C MP, CBC, ETOH #### [facility] [address] Magnesiumon 01-16-2024 Magnesium [Mass/Vol] 1.6 mg/dL Low 1.9-2.7 [facility] Comment on above: Performed By: #### C MP, CBC, ETOH #### [facility] [address] Serum or plasma high density lipoprotein (HDL) cholesterol measurementOrdered By: Jack Kwon on 01-16-2024 Cholesterol in HDL [Mass/Vol] 107 mg/dL High 23-92 [facility] Comment on above: HDL CHOL ATP-III CLA SSIFICATION Cardiovascular RiskHDL > or equal to 60 mg/dL LOWHDL < 40 mg/dL HIGH Result Comment: HDL CHOL ATP-III CLASSIFICATION Cardiovascular Risk HDL > or equal to 60 mg/dL LOW HDL < 40 mg/dL HIGH Performed By: #### C MP, CBC, ETOH #### [facility] [address] Serum or plasma total choles terol/high density lipoprotein (HDL) cholesterol mass ratOrdered By: Jack Kwon on 01-16-2024 Cholesterol.total/Chol esterol in HDL [Mass ratio] 2.5 {ratio} Normal <5.0 [facility] Comment on above: Performed By: #### C MP, CBC, ETOH #### [facility] [address] [id number] [facility] Thyroid Stim Hormone w/Rflxo n 01-16-2024 Thyroid Stim Hormone w/Rflx 3.66 u[iU]/mL Normal 0.45-5.33 [facility] Comment on above: Performed By: #### C MP, CBC, ETOH #### [facility] [address] [id number] [facility] Thyrotropin [Units/volume] i n Serum or PlasmaOrdered By: Jack Kwon on 01-16-2024 TSH Qn 3.66 m[IU]/L 0.45-5.33 [facility] Triglyceride [Mass/volume] i n Serum or PlasmaOrdered By: Jack Kwon on 01-16-2024 Triglyceride [Mass/Vol] 143 mg/dL 0-149 [facility] Comment on above: TRIG ATP III CLASSIF ICATIONTRIG less than 150 mg/dL NormalTRIG 150-199 mg/dL Borderline highTRIG 200-500 mg/dL High TRIG greater than 500 mg/dL Very highStandard traceable to the Center for Disease Conrtrol and Prevention (CDC) test method. Vitamin D 25 Hydroxy Totalon 01-16-2024 Vitamin D 25 Hydroxy Total 12.7 ng/mL Low 30-100 [facility] Comment on above: Result Comment: SANTY MIN D STATUS 25(OH)VITAMIN D RANGE (ng/mL) Deficient <20 Insufficient 20 to <30 Sufficient 30 to 100 Reference: Davey MF,Merlin NC, Morales FOX, et al. Evaluation,treatment, and prevention of vitamin D deficiency; an Endocrine Society clinical practice guideline. JCEM. 2010; 96(7):1911-30. PERFORMED BY: [place] [address] PATHOLOGIST BAR TURNER OSMEL BLUE M.D. Performed By: #### C MP, CBC, ETOH #### [facility] [address] [id number] [facility] Vitamin D+Metabolites [Mass/ volume] in Serum or PlasmaOrdered By: Jack Kwon on 01-16-2024 Vitamin D+Metabolites [Mass/Vol] 12.7 ng/mL Low 30-100 [facility] Comment on above: VITAMIN D STATUS [...] ALT [Catalytic activity/Vol] 80 U/L High 7-52 [facility] Comment on above: Performed By: #### C MP, CBC, ETOH #### [facility] [address] [place] [address] [place] Albumin [Mass/volume] in Ser um or Plasma by Bromocresol green (BCG) dye binding methoOrdered By: Libby Kerr on 01-14-2024 Albumin BCG dye [Mass/Vol] 4.6 g/dL 3.5-5.7 [facility] Alkaline phosphatase [Enzyma tic activity/volume] in Serum or PlasmaOrdered By: Libby Kerr on 01-14-2024 ALP [Catalytic activity/Vol] 115 U/L High 34-104 [facility] Comment on above: Result Comment: PERF ORMED BY: [facility] [address] [facility] [place] [address] PATHOLOGIST BAR TURNER OSMEL BLUE M.D. Performed By: #### C MP, CBC, ETOH #### [facility] [address] [phone] [place] Amphetamine Screen Ql (U)Ord ered By: Libby Kerr on 01-14-2024 Amphetamines Ql (U) Negative Negative [facility] Aspartate aminotransferase [ Enzymatic activity/volume] in Serum or PlasmaOrdered By: Libby Kerr on 01-14-2024 AST [Catalytic activity/Vol] 127 U/L High 13-39 [facility] Comment on above: Performed By: #### C MP, CBC, ETOH #### [address] Automated basophil %Ordered By: Libby Attilamay on 01-14-2024 Basophils/100 WBC (Bld) 3.1 % Normal . [facility] Comment on above: Performed By: #### C MP, CBC, ETOH #### [address] Automated basophil countOrde red By: Libby Attilamay on 01-14-2024 Basophils (Bld) [#/Vol] 0.1 10*3/uL Normal 0.0-0.2 [facility] Comment on above: Result Comment: PERF ORMED BY: [place] [address] PATHOLOGIST BAR TURNER OSMEL BLUE M.D. Performed By: #### C MP, CBC, ETOH #### [address] Automated blood monocyte cou ntOrdered By: Libby Attilamay on 01-14-2024 Monocytes (Bld) [#/Vol] 0.2 10*3/uL Normal 0.0-0.8 [facility] Comment on above: Performed By: #### C MP, CBC, ETOH #### [address] Automated eosinophil %Ordere d By: Libby Kerr on 01-14-2024 Eosinophils/100 WBC (Bld) 0.3 % Normal . [facility] Comment on above: Performed By: #### C MP, CBC, ETOH #### [address] Automated eosinophil countOr dered By: Libby Attilamay on 01-14-2024 Eosinophils (Bld) [#/Vol] 0.0 10*3/uL Normal 0.0-0.45 [facility] Comment on above: Performed By: #### C MP, CBC, ETOH #### [address] Automated monocyte %Ordered By: Libby Kerr on 01-14-2024 Monocytes/100 WBC (Bld) 3.1 % Normal . [facility] Comment on above: Performed By: #### C MP, CBC, ETOH #### [facility] [address] Automated neutrophil %Ordere d By: Libby Kerr on 01-14-2024 Neutrophils/100 WBC (Bld) 44.5 % Normal . [facility] Comment on above: Performed By: #### C MP, CBC, ETOH #### [facility] [address] Bacteria [Presence] in Urine by AutomatedOrdered By: Libby Kerr on 01-14-2024 Bacteria Auto Ql (U) 1+ [HPF] High None Seen [facility] Barbiturates [Presence] in U rine by Screen methodOrdered By: Libby Kerr on 01-14-2024 Barbiturates Screen Ql (U) Negative Negative [facility] Benzodiazepines Screen Ql (U )Ordered By: Libby Kerr on 01-14-2024 Benzodiazepines Ql (U) Negative Negative [facility] Benzoylecgonine [Presence] i n Urine by Screen methodOrdered By: Libby Kerr on 01-14-2024 Benzoylecgonine Screen Ql (U) Negative Negative [facility] Bilirubin Test strip Ql (U)O rdered By: Libby Kerr on 01-14-2024 Bilirubin Ql (U) Negative Negative [facility] Bilirubin.total [Mass/volume ] in Serum or PlasmaOrdered By: Libby Kerr on 01-14-2024 Bilirubin [Mass/Vol] 0.6 mg/dL Normal 0.3-1.0 [facility] Comment on above: Performed By: #### C MP, CBC, ETOH #### [facility] [address] [place] [address] [place] Calcium [Mass/volume] in Ser um or PlasmaOrdered By: Libby Kerr on 01-14-2024 Calcium [Mass/Vol] 9.2 mg/dL Normal 8.6-10.3 [facility] Comment on above: Performed By: #### C MP, CBC, ETOH #### [place] [address] [place] Cannabinoids [Presence] in U rine by Screen methodOrdered By: Libby Kerr on 01-14-2024 Cannabinoids Screen Ql (U) Negative Negative [facility] Comment on above: These are unconfirme d results and should not be used for legal purposes. Drug Cut-Off Concentration: AMPH 1000 ng/mL DALLAS 200 ng/mL DAVID 200 ng/mL COCM 300 ng/mL OP 300 ng/mL PCP 25 ng/mL THC 20 ng/mL Carbon dioxide, total [Moles /volume] in Serum or PlasmaOrdered By: Libby Kerr on 01-14-2024 CO2 [Moles/Vol] 23.5 mmol/L Normal 21.0-31.0 [facility] Comment on above: Performed By: #### C MP, CBC, ETOH #### [place] [address] [place] Chloride [Moles/volume] in S ben or PlasmaOrdered By: Libby Kerr on 01-14-2024 Chloride [Moles/Vol] 102 mmol/L Normal 98-107 [facility] Comment on above: Performed By: #### C MP, CBC, ETOH #### [address] Color of Urine by AutoOrdere d By: Libby Kerr on 01-14-2024 Color (U) Light-yellow Normal Yellow [facility] Comment on above: Order Comment: Name Collection Type:: Clean-Voided Midstream Performed By: #### C MP, CBC, ETOH #### [place] [address] [place] Complete Blood Count Auto Di ffon 01-14-2024 Mean Corpuscular HGB Conc 35.0 g/dL Normal 32.0-35.0 [facility] Comment on above: Performed By: #### C MP, CBC, ETOH #### [place] [address] [place] Monocytes/100 WBC (Bld) 17.74 % Normal 0.00-20.00 [facility] Comment on above: Result Comment: For adults in ED, MDW > 20.0 may be associated with a higher risk of sepsis during the first 12 hrs of hospital admission Performed By: #### C MP, CBC, ETOH #### [address] NRBC% 0.1 /100{WBC} Normal 0-0.5 [facility] Comment on above: Performed By: #### C MP, CBC, ETOH #### [address] Comprehensive Metabolic Pane mike 01-14-2024 Albumin [Mass/Vol] 4.6 g/dL Normal 3.5-5.7 [facility] Comment on above: Performed By: #### C MP, CBC, ETOH #### [address] GFR/1.73 sq M.predicted MDRD (S/P/Bld) [Vol rate/Area] mL/min/{1.73_m2} Normal [facility] Comment on above: Performed By: #### C MP, CBC, ETOH #### [address] Creatinine [Mass/volume] in Serum or PlasmaOrdered By: Libby Kerr on 01-14-2024 Creatinine [Mass/Vol] 0.58 mg/dL Low 0.60-1.20 [facility] Comment on above: Performed By: #### C MP, CBC, ETOH #### [place] [address] [place] Dipstick and Microscopicon 1 Bacteria,Urine 1+ High None Seen [facility] Comment on above: Order Comment: Name Collection Type:: Clean-Voided Midstream Performed By: #### C MP, CBC, ETOH #### [address] Bilirubin,Urine Negative Normal Negative [facility] Comment on above: Order Comment: Name Collection Type:: Clean-Voided Midstream Performed By: #### C MP, CBC, ETOH #### [address] Glucose Ql (U) Normal Normal Normal [facility] Comment on above: Order Comment: Name Collection Type:: Clean-Voided Midstream Performed By: #### C MP, CBC, ETOH #### [facility] [address] [place] [address] [place] Hyaline Casts,Urine 0-8 Normal 0-8 [facility] Comment on above: Order Comment: Name Collection Type:: Clean-Voided Midstream Performed By: #### C MP, CBC, ETOH #### [place] [address] [place] Nitrite,Urine Negative Normal Negative [facility] Comment on above: Order Comment: Name Collection Type:: Clean-Voided Midstream Performed By: #### C MP, CBC, ETOH #### [place] [address] [place] Occult Blood,Urine Negative Normal Negative [facility] Comment on above: Order Comment: Name Collection Type:: Clean-Voided Midstream Performed By: #### C MP, CBC, ETOH #### [address] RBC,Urine 1-2 Normal 0-4 [facility] Comment on above: Order Comment: Name Collection Type:: Clean-Voided Midstream Performed By: #### C MP, CBC, ETOH #### [address] Specificy [place],Urine 1.005 Normal 1.001-1.03 0 [facility] Comment on above: Order Comment: Name Collection Type:: Clean-Voided Midstream Performed By: #### C MP, CBC, ETOH #### [place] [address] [place] Squamous Epithelial Cell,Urine 3-4 High 0-2 [facility] Comment on above: Order Comment: Name Collection Type:: Clean-Voided Midstream Performed By: #### C MP, CBC, ETOH #### [place] [address] [place] Urobilinogen,Urine Normal Normal Normal [facility] Comment on above: Order Comment: Name Collection Type:: Clean-Voided Midstream Performed By: #### C MP, CBC, ETOH #### [place] [address] [place] WBC,Urine 1-2 Normal 0-4 [facility] Comment on above: Order Comment: Name Collection Type:: Clean-Voided Midstream Performed By: #### C MP, CBC, ETOH #### [place] [address] [place] Drug Screen,Urineon 01-14-20 24 Amphetamine Screen,Urine Negative Normal Negative [facility] Comment on above: Performed By: #### C MP, CBC, ETOH #### [address] Barbiturate Screen,Urine Negative Normal Negative [facility] Comment on above: Performed By: #### C MP, CBC, ETOH #### [place] [address] [place] Benzodiazepines Screen,Urine Negative Normal Negative [facility] Comment on above: Performed By: #### C MP, CBC, ETOH #### [address] Cannabinoid Screen,Urine Negative Normal Negative [facility] Comment on above: Result Comment: Thes e are unconfirmed results and should not be used for legal purposes. Drug Cut-Off Concentration: AMPH 1000 ng/mL DALLAS 200 ng/mL DAVID 200 ng/mL COCM 300 ng/mL OP 300 ng/mL PCP 25 ng/mL THC 20 ng/mL PERFORMED BY: [place] [address] PATHOLOGIST BAR TURNER OSMEL BLUE M.D. Performed By: #### C MP, CBC, ETOH #### [address] Cocaine Screen,Urine Negative Normal Negative [facility] Comment on above: Performed By: #### C MP, CBC, ETOH #### [facility] [address] Opiate Screen,Urine Negative Normal Negative [facility] Comment on above: Performed By: #### C MP, CBC, ETOH #### [facility] [address] Phencyclidine Screen,Urine Negative Normal Negative [facility] Comment on above: Performed By: #### C MP, CBC, ETOH #### [facility] [address] ECG 12 lead ECGon 01-14-2024 ECG 12 lead ECG [facility] [place] [address] [place] [address] Electrocardiograph Report Signed Patient: Shikha Loera MR#: [id number] : 1985 Acct:[id number] Age/Sex: 38 / F ADM Date: 01/15/24 Loc: Room: [address] [place] [address] Type: ADM IN Attending Dr: Jack Kwon [...] 73 bpm Confirmed by LILIANA MARINA DO ([id number]) on 01/15/2024 4:02:38 PM Referred By: Electronically Signed By: LILIANA MARINA DO Transcribed By: MUS Signed By Liliana Marina DO 01/14 1602 Normal [facility] Epithelial cells.squamous [# /area] in Urine sediment by Automated countOrdered By: Libby Kerr on 01-14-2024 Epithelial cells.squamous Auto (Urine sed) [#/Area] 3-4 [HPF] High 0-2 [facility] Erythrocyte distribution wid th [Ratio] by Automated countOrdered By: Libby Kerr on 01-14-2024 Erythrocyte distribution width (RBC) [Ratio] 13.5 % Normal 11.9-15.3 [facility] Comment on above: Performed By: #### C MP, CBC, ETOH #### [address] Erythrocytes [#/area] in Uri ne sediment by Automated countOrdered By: Libby Kerr on 01-14-2024 RBC Auto (Urine sed) [#/Area] 1-2 [HPF] 0-4 [facility] Erythrocytes [#/volume] in B lood by Automated countOrdered By: Libby Kerr on 01-14-2024 RBC (Bld) [#/Vol] 4.73 10*6/uL Normal 3.60-5.00 [facility] Comment on above: Performed By: #### C MP, CBC, ETOH #### [facility] [address] [place] [address] [place] Ethanol [Mass/volume] in Ser um or PlasmaOrdered By: Libby Kerr on 01-14-2024 Ethanol [Mass/Vol] 456 mg/dL Normal [facility] Comment on above: Performed By: #### C MP, CBC, ETOH #### [address] Ethanol [Mass/Vol] 0.456 % [facility] Ethyl Alcohol Profileon Percent Ethanol 0.456 % Normal [facility] Comment on above: Result Comment: PERF ORMED BY: [place] [address] PATHOLOGIST BAR TURNER OSMEL BLUE M.D. Performed By: #### C MP, CBC, ETOH #### [facility] [address] [place] [address] [place] Glucose [Mass/volume] in Ser um or PlasmaOrdered By: Libby Kerr on 01-14-2024 Glucose [Mass/Vol] 107 mg/dL High 70-100 [facility] Comment on above: ADA recommended refe rence rangeRandom Glucose Reference Range is dependent on time and content of last meal. Glucose of more than 200 mg/dL in a nonstressed, ambulatory subject supports the diagnosis of Diabetes Mellitus. Result Comment: [place] om Glucose Reference Range is dependent on time and content of last meal. Glucose of more than 200 mg/dL in a nonstressed, ambulatory subject supports the diagnosis of Diabetes Mellitus. ADA recommended reference range Performed By: #### C MP, CBC, ETOH #### [address] Glucose [Mass/volume] in Uri ne by Test stripOrdered By: Libby Kerr on 01-14-2024 Glucose Test strip (U) [Mass/Vol] Normal mg/dL Normal [facility] HCG ( test) IA.rapi d Ql (U)Ordered By: Libby Kerr on 01-14-2024 HCG ( test) Ql (U) Negative [facility] HCG,Urineon 01-14-2024 Beta HCG ( test) Ql (U) Negative Normal [facility] Comment on above: Order Comment: Name Collection Type:: Clean-Voided Midstream Result Comment: PERF ORMED BY: [place] [address] PATHOLOGIST BAR TURNER OSMEL BLUE M.D. Performed By: #### C MP, CBC, ETOH #### [address] Hematocrit [Volume Fraction] of Blood by Automated countOrdered By: Libby Kerr on 01-14-2024 Hematocrit (Bld) [Volume fraction] 43.3 % Normal 34.0-46.4 [facility] Comment on above: Performed By: #### C MP, CBC, ETOH #### [address] Hemoglobin Test strip Ql (U) Ordered By: Libby Kerr on 01-14-2024 Hemoglobin Ql (U) Negative Negative [facility] Hemoglobin [Mass/volume] in BloodOrdered By: Libby Kerr on 01-14-2024 Hemoglobin (Bld) [Mass/Vol] 15.1 g/dL Normal 11.8-15.4 [facility] Comment on above: Performed By: #### C MP, CBC, ETOH #### [facility] [address] [place] [address] [place] Hyaline casts [#/area] in Ur ine sediment by Automated countOrdered By: Libby Kerr on 01-14-2024 Hyaline casts Auto (Urine sed) [#/Area] 0-8 [LPF] 0-8 [facility] Ketones [Presence] in Urine by Test stripOrdered By: Libby Kerr on 01-14-2024 Ketones Ql (U) Negative Normal Negative [facility] Comment on above: Order Comment: Name Collection Type:: Clean-Voided Midstream Performed By: #### C MP, CBC, ETOH #### [facility] [address] [place] [address] [place] Leukocyte esterase [Presence ] in Urine by Test stripOrdered By: Libby Kerr on 01-14-2024 Leukocyte esterase Test strip Ql (U) Negative Normal Negative [facility] Comment on above: Order Comment: Name Collection Type:: Clean-Voided Midstream Performed By: #### C MP, CBC, ETOH #### [facility] [address] [place] [address] [place] Leukocytes [#/area] in Urine sediment by Automated countOrdered By: Libby Kerr on 01-14-2024 WBC Auto (Urine sed) [#/Area] 1-2 [HPF] 0-4 [facility] Leukocytes [#/volume] correc rob for nucleated erythrocytes in Blood by Automated counOrdered By: Libby Kerr on 01-14-2024 WBC corrected for nucl RBC Auto (Bld) [#/Vol] 4.8 10*3/uL 3.8-11.6 [facility] Leukocytes [#/volume] in Blo od by Automated countOrdered By: Libby Kerr on 01-14-2024 WBC (Bld) [#/Vol] 4.8 10*3/uL Normal 3.8-11.6 [facility] Comment on above: Performed By: #### C MP, CBC, ETOH #### [address] Lymphocytes [#/volume] in Bl ood by Automated countOrdered By: Libby Kerr on 01-14-2024 Lymphocytes (Bld) [#/Vol] 2.4 10*3/uL Normal 1.00-4.8 [facility] Comment on above: Performed By: #### C MP, CBC, ETOH #### [address] Lymphocytes/100 leukocytes i n Blood by Automated countOrdered By: Libby Kerr on 01-14-2024 Lymphocytes/100 WBC (Bld) 49.0 % Normal . [facility] Comment on above: Performed By: #### C MP, CBC, ETOH #### [address] MCH [Entitic mass] by Automa rob countOrdered By: Libby Kerr on 01-14-2024 MCH (RBC) [Entitic mass] 32.0 pg Normal 24.7-34.3 [facility] Comment on above: Performed By: #### C MP, CBC, ETOH #### [address] MCHC Auto (RBC) [Mass/Vol]Or dered By: Libby Kerr on 01-14-2024 MCHC (RBC) [Mass/Vol] 35.0 g/dL 32.0-35.0 [facility] MCV [Entitic volume] by Auto mated countOrdered By: Libby Kerr on 01-14-2024 MCV (RBC) [Entitic vol] 91.4 fL Normal 80-100 [facility] Comment on above: Performed By: #### C MP, CBC, ETOH #### [address] Monocyte distribution width [Entitic volume] in Blood by AutomatedOrdered By: Libby Kerr on 01-14-2024 Monocyte distribution width Auto (Bld) [Entitic vol] 17.74 % 0.00-20.00 [facility] Comment on above: For adults in ED, MD W > 20.0 may be associated with a higher risk of sepsis during the first 12 hrs of hospital admission Neutrophils [#/volume] in Bl ood by Automated countOrdered By: Libby Kerr on 01-14-2024 Neutrophils (Bld) [#/Vol] 2.2 10*3/uL Normal 1.8-7.7 [facility] Comment on above: Performed By: #### C MP, CBC, ETOH #### [facility] [address] Nitrite Test strip Ql (U)Ord ered By: Libby Kerr on 01-14-2024 Nitrite Ql (U) Negative Negative [facility] No Panel InformationOrdered By: Libby Kerr on 01-14-2024 Estimated GFR (CKD-EPI) > 60.0 mL/Min [facility] Creatinine Clearance (Chem N/A [facility] Nucleated erythrocytes [Pres ence] in Blood by Automated countOrdered By: Libby Kerr on 01-14-2024 Nucleated RBC Auto Ql (Bld) 0.1 /100{WBC} 0-0.5 [facility] Opiates [Presence] in Urine by Screen methodOrdered By: Libby Kerr on 01-14-2024 Opiates Screen Ql (U) Negative Negative [facility] Phencyclidine Screen Ql (U)O rdered By: Libby Kerr on 01-14-2024 Phencyclidine Ql (U) Negative Negative [facility] Platelet mean volume [Entiti c volume] in Blood by Automated countOrdered By: Libby Kerr on 01-14-2024 Platelet mean volume (Bld) [Entitic vol] 7.5 fL Normal 6.3-10.7 [facility] Comment on above: Performed By: #### C MP, CBC, ETOH #### [facility] [address] Platelets [#/volume] in Bloo d by Automated countOrdered By: Libby Kerr on 01-14-2024 Platelets (Bld) [#/Vol] 192 10*3/uL Normal 150-450 [facility] Comment on above: Performed By: #### C MP, CBC, ETOH #### [facility] [address] [place] [address] [place] Potassium [Moles/volume] in Serum or PlasmaOrdered By: Libby Kerr on 01-14-2024 Potassium [Moles/Vol] 3.6 mmol/L Normal 3.5-5.1 [facility] Comment on above: Performed By: #### C MP, CBC, ETOH #### [place] [address] [place] Protein [Mass/volume] in Ser um or PlasmaOrdered By: Libby Kerr on 01-14-2024 Protein [Mass/Vol] 8.2 g/dL Normal 6.4-8.9 [facility] Comment on above: Performed By: #### C MP, CBC, ETOH #### [place] [address] [place] Protein [Mass/volume] in Uri ne by Test stripOrdered By: Libby Kerr on 01-14-2024 Protein (U) [Mass/Vol] 20 mg/dL High Negative [facility] Comment on above: Order Comment: Name Collection Type:: Clean-Voided Midstream Performed By: #### C MP, CBC, ETOH #### [address] Serum globulin measurement b y calculation (mass/volume)Ordered By: Libby Kerr on 01-14-2024 Globulin (S) [Mass/Vol] 3.6 g/dL [facility] Comment on above: Performed By: #### C MP, CBC, ETOH #### [address] Serum or plasma albumin/glob ulin mass ratioOrdered By: Libby Kerr on 01-14-2024 Albumin/Globulin [Mass ratio] 1.3 {ratio} [facility] Comment on above: Performed By: #### C MP, CBC, ETOH #### [address] Serum or plasma anion gap de terminationOrdered By: Libby Kerr on 01-14-2024 Anion gap [Moles/Vol] 21.1 mmol/L High 6.0-15.0 [facility] Comment on above: Performed By: #### C MP, CBC, ETOH #### [facility] [address] Sodium [Moles/volume] in Ser um or PlasmaOrdered By: Libby Kerr on 01-14-2024 Sodium [Moles/Vol] 143 mmol/L Normal 136-145 [facility] Comment on above: Performed By: #### C MP, CBC, ETOH #### [facility] [address] [place] [address] Specific gravity Test strip (U) [Rel density]Ordered By: Libby Kerr on 01-14-2024 Specific gravity (U) [Rel density] 1.005 1.001-1.03 0 [facility] Urea nitrogen [Mass/volume] in Serum or PlasmaOrdered By: Libby Kerr on 01-14-2024 Urea nitrogen [Mass/Vol] 3 mg/dL Low 7-25 [facility] Comment on above: Performed By: #### C MP, CBC, ETOH #### [facility] [address] [place] [address] Urine appearanceOrdered By: Libby Kerr on 01-14-2024 Appearance (U) Cloudy Critically abnormal Clear [facility] Comment on above: Order Comment: Name Collection Type:: Clean-Voided Midstream Performed By: #### C MP, CBC, ETOH #### [address] Urobilinogen Test strip (U) [Mass/Vol]Ordered By: Libby Kerr on 01-14-2024 Urobilinogen (U) [Mass/Vol] Normal mg/dL Normal [facility] pH of Urine by Test stripOrd ered By: Libby Kerr on 01-14-2024 pH (U) 5.5 [pH] Normal 5.0-9.0 [facility] Comment on above: Order Comment: Name Collection Type:: Clean-Voided Midstream Performed By: #### C MP, CBC, ETOH #### [facility] [address] [place] [address] [place] URINE CULTURE, ROUTINEon Bacteria identified Cx Nom (U) Urine Culture, Routine [facility] Bacteria identified Cx Nom (U) Mixed urogenital maricel [facility] Bacteria identified Cx Nom (U) Less than 10,000 colonies/mL [facility] Bacteria identified Cx Nom (U) [facility] at[facility] Bacteria identified Cx Nom (U) [address] [place], [place] [id number] [facility] Bacteria identified Cx Nom (U) Brass Cleaner: Torsten Vidal PhD, Phone: [phone] [facility] Alanine aminotransferase [En zymatic activity/volume] in Serum or PlasmaOrdered By: Avery Blanca on 08-14-2023 ALT [Catalytic activity/Vol] 29 U/L Normal 7-52 [facility] Comment on above: Order Comment: Qian brooks for Exam Benign essential hypertension Performed By: #### T SH3 wRFLX, LIPID, CBC, CMP #### [facility] [address] [place] [address] [place] Albumin [Mass/volume] in Ser um or Plasma by Bromocresol green (BCG) dye binding methoOrdered By: Avery Blanca on 08-14-2023 Albumin BCG dye [Mass/Vol] 4.8 g/dL 3.5-5.7 [facility] Alkaline phosphatase [Enzyma tic activity/volume] in Serum or PlasmaOrdered By: Avery Blanca on 08-14-2023 ALP [Catalytic activity/Vol] 82 U/L Normal 34-104 [facility] Comment on above: Order Comment: Reaso n for Exam Benign essential hypertension Performed By: #### T SH3 wRFLX, LIPID, CBC, CMP #### [facility] [address] [place] [address] [place] Aspartate aminotransferase [ Enzymatic activity/volume] in Serum or PlasmaOrdered By: Avery Blanca on 08-14-2023 AST [Catalytic activity/Vol] 78 U/L High 13-39 [facility] Comment on above: Order Comment: Reaso n for Exam Benign essential hypertension Performed By: #### T SH3 wRFLX, LIPID, CBC, CMP #### [facility] [address] [place] [address] Automated basophil %Ordered By: Avery Blanca on 08-14-2023 Basophils/100 WBC (Bld) 1.9 % Normal . [facility] Comment on above: Order Comment: Reaso n for Exam Benign essential hypertension Performed By: #### T SH3 wRFLX, LIPID, CBC, CMP #### [address] Automated basophil countOrde red By: Avery Blanca on 08-14-2023 Basophils (Bld) [#/Vol] 0.1 10*3/uL Normal 0.0-0.2 [facility] Comment on above: Order Comment: Reaso n for Exam Benign essential hypertension Result Comment: PERF ORMED BY: [place] [address] PATHOLOGIST BAR TURNER OSMEL BLUE M.D. Performed By: #### T SH3 wRFLX, LIPID, CBC, CMP #### [address] Automated blood monocyte cou ntOrdered By: Avery Blanca on 08-14-2023 Monocytes (Bld) [#/Vol] 0.4 10*3/uL Normal 0.0-0.8 [facility] Comment on above: Order Comment: Reaso n for Exam Benign essential hypertension Performed By: #### T SH3 wRFLX, LIPID, CBC, CMP #### [facility] [address] [place] [address] Automated eosinophil %Ordere d By: Avery Blanca on 08-14-2023 Eosinophils/100 WBC (Bld) 1.0 % Normal . [facility] Comment on above: Order Comment: Reaso n for Exam Benign essential hypertension Performed By: #### T SH3 wRFLX, LIPID, CBC, CMP #### [facility] [address] [place] [address] Automated eosinophil countOr dered By: Avery Blanca on 08-14-2023 Eosinophils (Bld) [#/Vol] 0.0 10*3/uL Normal 0.0-0.45 [facility] Comment on above: Order Comment: Reaso n for Exam Benign essential hypertension Performed By: #### T SH3 wRFLX, LIPID, CBC, CMP #### [facility] [address] [place] [address] [place] Automated monocyte %Ordered By: Avery Blanca on 08-14-2023 Monocytes/100 WBC (Bld) 11.5 % Normal . [facility] Comment on above: Order Comment: Reaso n for Exam Benign essential hypertension Performed By: #### T SH3 wRFLX, LIPID, CBC, CMP #### [facility] [address] Automated neutrophil %Ordere d By: Avery Blanca on 08-14-2023 Neutrophils/100 WBC (Bld) 57.8 % Normal . [facility] Comment on above: Order Comment: Reaso n for Exam Benign essential hypertension Performed By: #### T SH3 wRFLX, LIPID, CBC, CMP #### [facility] [address] [place] [address] [place] Bilirubin.total [Mass/volume ] in Serum or PlasmaOrdered By: Avery Blanca on 08-14-2023 Bilirubin [Mass/Vol] 0.5 mg/dL Normal 0.3-1.0 [facility] Comment on above: Order Comment: Reaso n for Exam Benign essential hypertension Performed By: #### T SH3 wRFLX, LIPID, CBC, CMP #### [facility] [address] [place] [address] [place] Calcium [Mass/volume] in Ser um or PlasmaOrdered By: Avery Blanca on 08-14-2023 Calcium [Mass/Vol] 9.6 mg/dL Normal 8.6-10.3 [facility] Comment on above: Order Comment: Reaso n for Exam Benign essential hypertension Performed By: #### T SH3 wRFLX, LIPID, CBC, CMP #### [facility] [address] [place] [address] [place] Carbon dioxide, total [Moles /volume] in Serum or PlasmaOrdered By: Avery Blanca on 08-14-2023 CO2 [Moles/Vol] 24.7 mmol/L Normal 21.0-31.0 [facility] Comment on above: Order Comment: Reaso n for Exam Benign essential hypertension Performed By: #### T SH3 wRFLX, LIPID, CBC, CMP #### [facility] [address] [place] [id number] [place] Chloride [Moles/volume] in S ben or PlasmaOrdered By: Avery Blanca on 08-14-2023 Chloride [Moles/Vol] 95 mmol/L Low 98-107 [facility] Comment on above: Order Comment: Reaso n for Exam Benign essential hypertension Performed By: #### T SH3 wRFLX, LIPID, CBC, CMP #### [facility] [address] [place] [address] [place] Cholesterol [Mass/volume] in Serum or PlasmaOrdered By: Avery Blanca on 08-14-2023 Cholesterol [Mass/Vol] 333 mg/dL High 140-200 [facility] Comment on above: Chol less than 200 m g/dl low riskChol 201-239 mg/dl borderline riskChol 240 mg/dl and greater high risk Order Comment: Reaso n for Exam Benign essential hypertension Result Comment: Chol less than 200 mg/dl low risk Chol 201-239 mg/dl borderline risk Chol 240 mg/dl and greater high risk Performed By: #### T SH3 wRFLX, LIPID, CBC, CMP #### [facility] [address] [place] [address] [place] Cholesterol in LDL Calc [Mas s/Vol]Ordered By: Avery Blanca on 08-14-2023 Cholesterol in LDL [Mass/Vol] 181 mg/dL 0-100 [facility] Comment on above: LDL ATP III CLASSIFI CATIONLDL less than 100 mg/dL OptimalLDL 100-129 mg/dL Near or above optimalLDL 130-159 mg/dL Borderline highLDL 160-189 mg/dL HighLDL greater than 189 mg/dL Very high Cholesterol in VLDL Calc [Ma ss/Vol]Ordered By: Avery Blanca on 08-14-2023 Cholesterol in VLDL [Mass/Vol] 22 mg/dL [facility] Complete Blood Count Auto Di ffon 08-14-2023 Mean Corpuscular HGB Conc 34.2 g/dL Normal 32.0-35.0 [facility] Comment on above: Order Comment: Reaso n for Exam Benign essential hypertension Performed By: #### T SH3 wRFLX, LIPID, CBC, CMP #### [address] NRBC% 0.3 /100{WBC} Normal 0-0.5 [facility] Comment on above: Order Comment: Reaso n for Exam Benign essential hypertension Performed By: #### T SH3 wRFLX, LIPID, CBC, CMP #### [address] Comprehensive Metabolic Pane mike 08-14-2023 Albumin [Mass/Vol] 4.8 g/dL Normal 3.5-5.7 [facility] Comment on above: Order Comment: Reaso n for Exam Benign essential hypertension Performed By: #### T SH3 wRFLX, LIPID, CBC, CMP #### [address] GFR/1.73 sq M.predicted MDRD (S/P/Bld) [Vol rate/Area] mL/min/{1.73_m2} Normal [facility] Comment on above: Order Comment: Reaso n for Exam Benign essential hypertension Performed By: #### T SH3 wRFLX, LIPID, CBC, CMP #### [address] Creatinine [Mass/volume] in Serum or PlasmaOrdered By: Avery Blanca on 08-14-2023 Creatinine [Mass/Vol] 0.48 mg/dL Low 0.60-1.20 [facility] Comment on above: Order Comment: Reaso n for Exam Benign essential hypertension Performed By: #### T SH3 wRFLX, LIPID, CBC, CMP #### [facility] [address] [place] [address] Erythrocyte distribution wid th [Ratio] by Automated countOrdered By: Avery Blanca on 08-14-2023 Erythrocyte distribution width (RBC) [Ratio] 14.2 % Normal 11.9-15.3 [facility] Comment on above: Order Comment: Reaso n for Exam Benign essential hypertension Performed By: #### T SH3 wRFLX, LIPID, CBC, CMP #### [facility] [address] [place] [address] [place] Erythrocytes [#/volume] in B lood by Automated countOrdered By: Avery Blanca on 08-14-2023 RBC (Bld) [#/Vol] 4.03 10*6/uL Normal 3.60-5.00 [facility] Comment on above: Order Comment: Reaso n for Exam Benign essential hypertension Performed By: #### T SH3 wRFLX, LIPID, CBC, CMP #### [facility] [address] [place] [address] [place] Glucose [Mass/volume] in Ser um or PlasmaOrdered By: Avery Blanca on 08-14-2023 Glucose [Mass/Vol] 102 mg/dL High 70-100 [facility] Comment on above: ADA recommended refe rence rangeRandom Glucose Reference Range is dependent on time and content of last meal. Glucose of more than 200 mg/dL in a nonstressed, ambulatory subject supports the diagnosis of Diabetes Mellitus. Order Comment: Reaso n for Exam Benign essential hypertension Result Comment: Gilbert om Glucose Reference Range is dependent on time and content of last meal. Glucose of more than 200 mg/dL in a nonstressed, ambulatory subject supports the diagnosis of Diabetes Mellitus. ADA recommended reference range Performed By: #### T SH3 wRFLX, LIPID, CBC, CMP #### [facility] [address] [place] [address] [place] Hematocrit [Volume Fraction] of Blood by Automated countOrdered By: Avery Blanca on 08-14-2023 Hematocrit (Bld) [Volume fraction] 39.2 % Normal 34.0-46.4 [facility] Comment on above: Order Comment: Reaso n for Exam Benign essential hypertension Performed By: #### T SH3 wRFLX, LIPID, CBC, CMP #### [facility] [address] [place] [address] [place] Hemoglobin [Mass/volume] in BloodOrdered By: Avery Blanca on 08-14-2023 Hemoglobin (Bld) [Mass/Vol] 13.4 g/dL Normal 11.8-15.4 [facility] Comment on above: Order Comment: Reaso n for Exam Benign essential hypertension Performed By: #### T SH3 wRFLX, LIPID, CBC, CMP #### [facility] [address] Leukocytes [#/volume] correc rob for nucleated erythrocytes in Blood by Automated counOrdered By: Avery Blanca on 08-14-2023 WBC corrected for nucl RBC Auto (Bld) [#/Vol] 3.8 10*3/uL 3.8-11.6 [facility] Leukocytes [#/volume] in Blo od by Automated countOrdered By: Avery Blanca on 08-14-2023 WBC (Bld) [#/Vol] 3.8 10*3/uL Normal 3.8-11.6 [facility] Comment on above: Order Comment: Reaso n for Exam Benign essential hypertension Performed By: #### T SH3 wRFLX, LIPID, CBC, CMP #### [facility] [address] Lipid Panelon 08-14-2023 LDL Cholesterol,Calculated 181 mg/dL High 0-100 [facility] Comment on above: Order Comment: Reaso n for Exam Benign essential hypertension Result Comment: LDL ATP III CLASSIFICATION LDL less than 100 mg/dL Optimal LDL 100-129 mg/dL Near or above optimal LDL 130-159 mg/dL Borderline high LDL 160-189 mg/dL High LDL greater than 189 mg/dL Very high Performed By: #### T SH3 wRFLX, LIPID, CBC, CMP #### [facility] [address] Triglyceride w/Reflex 111 mg/dL Normal 0-149 [facility] Comment on above: [...] T SH3 wRFLX, LIPID, CBC, CMP #### [facility] [address] [place] [id number] [facility] VLDL CHOLESTEROL 22 mg/dL Normal [facility] Comment on above: Order Comment: Reaso n for Exam Benign essential hypertension Performed By: #### T SH3 wRFLX, LIPID, CBC, CMP #### [facility] [address] [place] [address] Lymphocytes [#/volume] in Bl ood by Automated countOrdered By: Avery Blanca on 08-14-2023 Lymphocytes (Bld) [#/Vol] 1.1 10*3/uL Normal 1.00-4.8 [facility] Comment on above: Order Comment: Reaso n for Exam Benign essential hypertension Performed By: #### T SH3 wRFLX, LIPID, CBC, CMP #### [facility] [address] [place] [address] Lymphocytes/100 leukocytes i n Blood by Automated countOrdered By: Avery Blanca on 08-14-2023 Lymphocytes/100 WBC (Bld) 27.8 % Normal . [facility] Comment on above: Order Comment: Reaso n for Exam Benign essential hypertension Performed By: #### T SH3 wRFLX, LIPID, CBC, CMP #### [facility] [address] [place] [address] MCH [Entitic mass] by Automa rob countOrdered By: Avery Blanca on 08-14-2023 MCH (RBC) [Entitic mass] 33.3 pg Normal 24.7-34.3 [facility] Comment on above: Order Comment: Reaso n for Exam Benign essential hypertension Performed By: #### T SH3 wRFLX, LIPID, CBC, CMP #### [facility] [address] [place] [address] MCHC Auto (RBC) [Mass/Vol]Or dered By: Avery Blanca on 08-14-2023 MCHC (RBC) [Mass/Vol] 34.2 g/dL 32.0-35.0 [facility] MCV [Entitic volume] by Auto mated countOrdered By: Avery Blanca on 08-14-2023 MCV (RBC) [Entitic vol] 97.1 fL Normal 80-100 [facility] Comment on above: Order Comment: Reaso n for Exam Benign essential hypertension Performed By: #### T SH3 wRFLX, LIPID, CBC, CMP #### [facility] [address] Neutrophils [#/volume] in Bl ood by Automated countOrdered By: Avery Blanca on 08-14-2023 Neutrophils (Bld) [#/Vol] 2.2 10*3/uL Normal 1.8-7.7 [facility] Comment on above: Order Comment: Reaso n for Exam Benign essential hypertension Performed By: #### T SH3 wRFLX, LIPID, CBC, CMP #### [facility] [address] No Panel InformationOrdered By: Avery Blanca on 08-14-2023 Estimated GFR (CKD-EPI) > 60.0 mL/Min [facility] Creatinine Clearance (Chem N/A [facility] Nucleated erythrocytes [Pres ence] in Blood by Automated countOrdered By: Avery Blanca on 08-14-2023 Nucleated RBC Auto Ql (Bld) 0.3 /100{WBC} 0-0.5 [facility] Platelet mean volume [Entiti c volume] in Blood by Automated countOrdered By: Avery Blanca on 08-14-2023 Platelet mean volume (Bld) [Entitic vol] 7.1 fL Normal 6.3-10.7 [facility] Comment on above: Order Comment: Reaso n for Exam Benign essential hypertension Performed By: #### T SH3 wRFLX, LIPID, CBC, CMP #### [facility] [address] [place] [address] Platelets [#/volume] in Bloo d by Automated countOrdered By: Avery Blanca on 08-14-2023 Platelets (Bld) [#/Vol] 201 10*3/uL Normal 150-450 [facility] Comment on above: Order Comment: Reaso n for Exam Benign essential hypertension Performed By: #### T SH3 wRFLX, LIPID, CBC, CMP #### [facility] [address] [place] [address] [place] Potassium [Moles/volume] in Serum or PlasmaOrdered By: Avery Blanca on 08-14-2023 Potassium [Moles/Vol] 4.2 mmol/L Normal 3.5-5.1 [facility] Comment on above: Order Comment: Reaso n for Exam Benign essential hypertension Performed By: #### T SH3 wRFLX, LIPID, CBC, CMP #### [facility] [address] Protein [Mass/volume] in Ser um or PlasmaOrdered By: Avery Blanca on 08-14-2023 Protein [Mass/Vol] 7.3 g/dL Normal 6.4-8.9 [facility] Comment on above: Order Comment: Reaso n for Exam Benign essential hypertension Performed By: #### T SH3 wRFLX, LIPID, CBC, CMP #### [facility] [address] Serum globulin measurement b y calculation (mass/volume)Ordered By: Avery Blanca on 08-14-2023 Globulin (S) [Mass/Vol] 2.5 g/dL Normal [facility] Comment on above: Order Comment: Reaso n for Exam Benign essential hypertension Performed By: #### T SH3 wRFLX, LIPID, CBC, CMP #### [facility] [address] [place] [address] Serum or plasma albumin/glob ulin mass ratioOrdered By: Avery Blanca on 08-14-2023 Albumin/Globulin [Mass ratio] 1.9 {ratio} [facility] Comment on above: Order Comment: Reaso n for Exam Benign essential hypertension Performed By: #### T SH3 wRFLX, LIPID, CBC, CMP #### [facility] [address] [place] [address] Serum or plasma anion gap de terminationOrdered By: Avery Blanca on 08-14-2023 Anion gap [Moles/Vol] 14.5 mmol/L Normal 6.0-15.0 [facility] Comment on above: Order Comment: Reaso n for Exam Benign essential hypertension Performed By: #### T SH3 wRFLX, LIPID, CBC, CMP #### [facility] [address] [place] [address] Serum or plasma high density lipoprotein (HDL) cholesterol measurementOrdered By: Avery Blanca on 08-14-2023 Cholesterol in HDL [Mass/Vol] 130 mg/dL High 23-92 [facility] Comment on above: HDL CHOL ATP-III CLA SSIFICATION Cardiovascular RiskHDL > or equal to 60 mg/dL LOWHDL < 40 mg/dL HIGH Order Comment: Reaso n for Exam Benign essential hypertension Result Comment: HDL CHOL ATP-III CLASSIFICATION Cardiovascular Risk HDL > or equal to 60 mg/dL LOW HDL < 40 mg/dL HIGH Performed By: #### T SH3 wRFLX, LIPID, CBC, CMP #### [facility] [address] [place] [address] Serum or plasma total choles terol/high density lipoprotein (HDL) cholesterol mass ratOrdered By: Avery Blanca on 08-14-2023 Cholesterol.total/Chol esterol in HDL [Mass ratio] 2.6 {ratio} Normal <5.0 [facility] Comment on above: Order Comment: Reaso n for Exam Benign essential hypertension Performed By: #### T SH3 wRFLX, LIPID, CBC, CMP #### [facility] [address] [place] [address] Sodium [Moles/volume] in Ser um or PlasmaOrdered By: Avery Blanca on 08-14-2023 Sodium [Moles/Vol] 130 mmol/L Low 136-145 [facility] Comment on above: Order Comment: Reaso n for Exam Benign essential hypertension Performed By: #### T SH3 wRFLX, LIPID, CBC, CMP #### [facility] [address] [place] [address] Thyroid Stim Hormone w/Rflxo n 08-14-2023 Thyroid Stim Hormone w/Rflx 1.86 u[iU]/mL Normal 0.45-5.33 [facility] Comment on above: Order Comment: Reaso n for Exam Benign essential hypertension Result Comment: PERF ORMED BY: [place] [address] PATHOLOGIST BAR TURNER OSMEL BLUE M.D. Performed By: #### T SH3 wRFLX, LIPID, CBC, CMP #### [facility] [address] [place] [address] Thyrotropin [Units/volume] i n Serum or PlasmaOrdered By: Avery Blanca on 08-14-2023 TSH Qn 1.86 m[IU]/L 0.45-5.33 [facility] Triglyceride [Mass/volume] i n Serum or PlasmaOrdered By: Avery Blanca on 08-14-2023 Triglyceride [Mass/Vol] 111 mg/dL 0-149 [facility] Comment on above: TRIG ATP III CLASSIF ICATIONTRIG less than 150 mg/dL NormalTRIG 150-199 mg/dL Borderline highTRIG 200-500 mg/dL High TRIG greater than 500 mg/dL Very highStandard traceable to the Center for Disease Conrtrol and Prevention (CDC) test method. Urea nitrogen [Mass/volume] in Serum or PlasmaOrdered By: Avery Blanca on 08-14-2023 Urea nitrogen [Mass/Vol] 5 mg/dL Low 7-25 [facility] Comment on above: Order Comment: Reaso n for Exam Benign essential hypertension Performed By: #### T SH3 wRFLX, LIPID, CBC, CMP #### [facility] [address] HbA1c HPLC (Bld) [Mass fract ion]on 06-14-2023 HbA1c (Bld) [Mass fraction] 4.7 % [facility] No Panel Informationon 06-13 Bedside Glucose 110 [facility] A1C HEMOGLOBINon 03-27-2023 HbA1c (Bld) [Mass fraction] 10.6 % [employer] [facility] [place] Other Glucose - FINGER STICKon Glucose [Mass/Vol] 95 mg/dL [facility] [place] Other HbA1c (Bld) [Mass fraction]o n 03-27-2023 A1C HEMOGLOBIN [facility] [place] Other Consent for Treatmenton 10-07 Consent for Treatment [id number]:[address] [facility] Discharge Instructionson Discharge Instructions [id number]: [address] [facility] ED Clinical Summaryon 2022 ED Clinical Summary (Inserted Image. Jackie ble to display) [place] [address] ED Clinical Summary Person Information Name: SHIKHA LOERA/[place] Age: 37 Years : 1985 Sex: Female Language: Chinese PCP: NONE, XXXX Marital Status: Visit Id: [...] 10/21/2022 08:36:13 10/21/2022 08:36:13 10/21/2022 08:36:13 ADDRESS: [address] [place] [address] [place] [id number] PHYS DOC NOTES: MEDICAL INFORMATION: Prescriptions Given: New Medications [id number], [address] [place], [place] [id number], [phone] cyclobenzaprine (cyclobenzaprine 5 mg Tab) 1 Tablets [...] Continue with No Changes Other Medications acetaminophen-hydrocodone (Hendricks 325 mg-5 mg oral tablet) 1 Tablets [...] worsening symptoms. DIAGNOSIS: Contusion of rib Normal [facility] ED Note-Physicianon 10-22-19 ED Note-Physician Basic [...] pain, # 21 tab(s), Refills(s) 0, Pharmacy: [id number], 167.6, cm, 10/21/22 7:13:00 EDT, Height/Length Dosing, 61.5, kg, 10/21/22 7:13:00 EDT, Weight Dosing lidocaine topical, 1 patch(es), Topical, Daily, 7 EA, Refill(s) 0, apply 12 hours on and 12 hours off daily, [id number], 167.6, cm, 10/21/22 7:13:00 EDT, Height/Length Dosing, 61.5, kg, 10/21/22 7:13:00 EDT, Weight Dosing naproxen, 500 mg = 1 tab(s), Oral, BID, PRN for pain, # 20 tab(s), Refills(s) 0, Pharmacy: [id number], 167.6, cm, 10/21/22 7:13:00 EDT, Height/Length [...] No q (more content not included)... Normal [facility] Comment on above: Result Comment: Elec [...] for lung collapse and pneumonia. ? Medicines. Ujkm-ydw-tketjfl or prescription medicines may be given to control pain. ? Injection of a numbing medicine around the nerve near your injury (nerve block). Follow these instructions at home: Medicines ? Take gvwx-hgc-gdzanbo and prescription medicines only as told by your health care provider. ? Ask your health care provider if the medicine prescribed to you: ? Requires you to avoid driving or using machinery. ? Can cause constipation. You may need to take these actions to prevent or treat constipation: ? Drink enough fluid to keep your urine pale yellow. ? Take cxio-bea-clbslds or prescription medicines. ? Eat foods that [...] Reviewed: 06/30/2020 [employer] Patient Education ? [address] [employer] [address] [facility] ED Patient Summaryon 023 ED Patient Summary (Inserted Image. Jackie ble to display) [address] [address] Patient Discharge Instructions Person Information Name: SHIKHA LOERA Age: 37 Years Arrival Date: 10/21/2022 06:56:51 Discharge Diagnosis: Contusion of rib Primary Care Physician: NONE, XXXX Provider Information Primary Provider: Thanh Bal DO Advanced Cable Assembler:None The exam and treatment you received in the Emergency Department were for an urgent problem and are not intended as complete care. It is important that you follow up with a doctor, nurse practitioner, or physician?s field research assistant for ongoing care. If your symptoms [...] opioids can be used to help relieve dhksnrdp-vj-zglmxg pain and are often prescribed following a [...] and ab (more content not included)... Normal [facility] XR Ribs Unilat 3 Views Left [...] na Wet Read 10/21/2022 09:58 am EDT, Darile Morejon MD, DISAGREE left rib fractures 6-8. 8th appears recent, others may be chronic. No pneumothorax. Normal [facility] AMYLASEon 03-26-2022 Amylase [Catalytic activity/Vol] 20 U/L Critically low 25-115 [facility] Comment on above: Performed By: #### L IPA, NGA, CMP #### [facility] [address] [address] [address] Angela Aguero CBC W MANUAL DIFFon 03-26-20 22 ATYPICAL LYMPH # Normal [facility] Comment on above: Performed By: #### L IPA, NGA, CMP #### [facility] [address] [address] [address] Angela Aguero ATYPICAL LYMPH % Normal [facility] Comment on above: Performed By: #### L IPA, NGA, CMP #### [facility] [address] [address] [address] Angela Aguero BAND # 0.0 103/ul Normal 0.0-0.3 [facility] Comment on above: Performed By: #### L IPA, NGA, CMP #### [facility] [address] [address] [address] Angela Aguero BAND % 0 % Normal 0-5 [facility] Comment on above: Performed By: #### L IPA, NGA, CMP #### [facility] [address] [address] [address] Angela Aguero BASOM # 0.07 103/ul Normal 0.00-0.10 [facility] Comment on above: Performed By: #### L IPA NGA, CMP #### [facility] [address] [address] [address] Angela Aguero BASOM % 1.0 % Normal 0.2-2.0 [facility] Comment on above: Performed By: #### L IPA, NGA, CMP #### [facility] [address] [place] [address] Dr. Angela Aguero BLAST # Normal [facility] Comment on above: Performed By: #### L IPA NGA, CMP #### [facility] [address] [place] [address] Dr. Angela Aguero BLAST % Normal [facility] Comment on above: Performed By: #### L IPA NGA, CMP #### [facility] [address] [place] [address] Dr. Angela Aguero CORRECTED WBC Normal 4.0-11.0 [facility] Comment on above: Performed By: #### L IPA, NGA, CMP #### [facility] [address] [place] [address] Dr. Angela Aguero EOS # 0.00 103/ul Normal 0.00-0.70 [facility] Comment on above: Performed By: #### L IPA NGA, CMP #### [facility] [address] [place] [address] Dr. Angela Aguero EOS% 0.0 % Critically low 0.9-7.0 [facility] Comment on above: Performed By: #### L IPA, NGA, CMP #### [facility] [address] [place] [address] Dr. Angela Aguero HCT 42.7 % Normal 36.0-48.0 [facility] Comment on above: Performed By: #### L IPA, NGA, CMP #### [facility] [address] [place] [address] Dr. Angela Aguero HGB 15.0 g/dl Normal 12.0-16.0 [facility] Comment on above: Performed By: #### L IPA, NGA, CMP #### [facility] [address] [place] [address] Dr. Angela Aguero LYMPHM # 0.28 103/ul Critically low 1.20-3.80 [facility] Comment on above: Performed By: #### L IPA, NGA, CMP #### [facility] [address] [place] [address] Dr. Angela Aguero LYMPHM% 4.0 % Critically low 20.5-60.0 [facility] Comment on above: Performed By: #### L IPA, NGA, CMP #### [facility] [address] [place] [address] Dr. Angela Aguero MCH 34.1 pg Critically high 26.7-34.0 [facility] Comment on above: Performed By: #### L IPA, NGA, CMP #### [facility] [address] [place] [address] Dr. Angela Aguero MCHC 35.1 g/dl Normal 29.9-35.2 [facility] Comment on above: Performed By: #### L IPA, NGA, CMP #### [facility] [address] [place] [address] Dr. Angela Aguero MCV 97.0 fL Normal 81.0-99.0 [facility] Comment on above: Performed By: #### L IPA, NGA, CMP #### [facility] [address] [place] [address] Dr. Angela Aguero METAMYELOCYTE # Normal [facility] Comment on above: Performed By: #### L IPA, NGA, CMP #### [facility] [address] [place] [address] Dr. Angela Aguero METAMYELOCYTE % Normal [facility] Comment on above: Performed By: #### L IPA, NGA, CMP #### [facility] [address] [place] [address] Dr. Angela Aguero MONOM# 0.21 103/ul Critically low 0.30-0.80 [facility] Comment on above: Performed By: #### L IPA, NGA, CMP #### [facility] [address] [address] [address] Angela Aguero MONOM% 3.0 % Normal 1.7-12.0 [facility] Comment on above: Performed By: #### L IPA, NGA, CMP #### [facility] [address] [address] [address] Angela Aguero MPV 9.4 fL Critically low 9.5-13.5 [facility] Comment on above: Performed By: #### L IPA, NGA, CMP #### [facility] [address] [address] [address] Angela Aguero MYELOCYTE # Normal [facility] Comment on above: Performed By: #### L IPA, NGA, CMP #### [facility] [address] [place] [address] Dr. Angela Aguero MYELOCYTE % Normal [facility] Comment on above: Performed By: #### L IPA, NGA, CMP #### [facility] [address] [place] [address] Dr. Angela Aguero NRBC Normal [facility] Comment on above: Performed By: #### L IPA, NGA, CMP #### [facility] [address] [address] [address] Angela Aguero PLT 252 103/ul Normal 150-450 [facility] Comment on above: Performed By: #### L IPA, NGA, CMP #### [facility] [address] [address] [address] Angela Aguero RBC 4.40 106/ul Normal 4.20-5.40 [facility] Comment on above: Performed By: #### L IPA, NGA, CMP #### [facility] [address] [place] [address] Dr. Angela Aguero RDW 11.3 % Normal 11.0-15.0 [facility] Comment on above: Performed By: #### L IPA, NGA, CMP #### [facility] [address] [address] [address] Angela Aguero SEG # 6.44 103/ul Normal 1.40-6.50 [facility] Comment on above: Performed By: #### L NGA SMITH, CMP #### [facility] [address] [place] [address] Dr. Angela Aguero SEG % 92.0 % Critically high 43.0-75.0 [facility] Comment on above: Performed By: #### L NGA SMITH, CMP #### [facility] [address] [place] [address] Dr. Angela Aguero WBC 7.0 103/ul Normal 4.0-11.0 [facility] Comment on above: Performed By: #### L NGA SMITH, CMP #### [facility] [address] [place] [address] Dr. Angela Aguero ETHANOL (BLD ALC)on 03-26-20 ALC NOTE NOTE: 80 mg/dl is th e legal limit for a blood alcohol level Normal [facility] Comment on above: Performed By: #### L NGA SMITH, CMP #### [facility] [address] [place] [address] Dr. Angela Aguero Ethanol [Mass/Vol] mg/dL Normal [facility] Comment on above: Performed By: #### L NGA SMITH, CMP #### [facility] [address] [place] [address] Dr. Angela Aguero LIPASEon 03-26-2022 Lipase [Catalytic activity/Vol] 43.0 U/L Critically low 73.0-393.0 [facility] Comment on above: Performed By: #### L NGA SMITH, CMP #### [facility] [address] [place] [address] Dr. Angela Aguero PROF 14(COMP METB)on Albumin [Mass/Vol] 3.9 g/dL Normal 3.4-5.0 [facility] Comment on above: Performed By: #### L NGA SMITH, CMP #### [facility] [address] [place] [address] Dr. Angela Aguero Albumin/Globulin [Mass ratio] 0.9 {ratio} Normal [facility] Comment on above: Performed By: #### L IPA, NGA, CMP #### [facility] [address] [address] [address] Angela Aguero ALP [Catalytic activity/Vol] 129 U/L Critically high 46-116 [facility] Comment on above: Performed By: #### L IPA, NGA, CMP #### [facility] [address] [address] [address] Angela Aguero ALT [Catalytic activity/Vol] 143 U/L Critically high 14-59 [facility] Comment on above: Performed By: #### L IPA, NGA, CMP #### [facility] [address] [address] [address] Angela Aguero Anion gap [Moles/Vol] 16.4 mmol/L Normal [facility] Comment on above: Performed By: #### L IPA, NGA, CMP #### [facility] [address] [address] [address] Angela Aguero AST [Catalytic activity/Vol] 306 U/L Critically high 15-37 [facility] Comment on above: Performed By: #### L IPA, NGA, CMP #### [facility] [address] [address] [address] Angela Aguero Bilirubin [Mass/Vol] 1.7 mg/dL Critically high 0.2-1.0 [facility] Comment on above: Performed By: #### L IPA, NGA, CMP #### [facility] [address] [address] [address] Angela Aguero Calcium [Mass/Vol] 9.4 mg/dL Normal 8.5-10.1 [facility] Comment on above: Performed By: #### L IPA, NGA, CMP #### [facility] [address] [address] [address] Angela Aguero Chloride [Moles/Vol] 99 mmol/L Normal 98-107 [facility] Comment on above: Performed By: #### L IPA, NGA, CMP #### [facility] [address] [address] [address] Angela Aguero CO2 [Moles/Vol] 25.9 mmol/L Normal 21.0-32.0 [facility] Comment on above: Performed By: #### L IPA NGA, CMP #### [facility] [address] [place] [address] Dr. Angela Aguero Creatinine [Mass/Vol] 0.82 mg/dL Normal 0.55-1.02 [facility] Comment on above: Performed By: #### L IPA, NGA, CMP #### [facility] [address] [place] [address] Dr. Angela Aguero EGFR-AF [place] ISLANDER >60 Normal >=60 [facility] Comment on above: Performed By: #### L IPA, NGA, CMP #### [facility] [address] [place] [address] Dr. Angela Aguero EGFR-NON AF [place]LANDER >60 Normal >=60 [facility] Comment on above: Performed By: #### L IPA NGA, CMP #### [facility] [address] [place] [address] Dr. Angela Aguero Globulin (S) [Mass/Vol] 4.4 g/dL Normal [facility] Comment on above: Performed By: #### L IPA NGA, CMP #### [facility] [address] [place] [address] Dr. Angela Aguero Glucose [Mass/Vol] 207 mg/dL Critically high 74-106 [facility] Comment on above: Performed By: #### L IPA NGA, CMP #### [facility] [address] [place] [address] Dr. Angela Aguero Potassium [Moles/Vol] 3.3 mmol/L Critically low 3.5-5.1 [facility] Comment on above: Performed By: #### L IPA NGA, CMP #### [facility] [address] [place] [address] Dr. Angela Aguero Protein [Mass/Vol] 8.3 g/dL Critically high 6.4-8.2 [facility] Comment on above: Performed By: #### L IPA, NGA, CMP #### [facility] [address] [place] [address] Dr. Angela Aguero Sodium [Moles/Vol] 138 mmol/L Normal 136-145 [facility] Comment on above: Performed By: #### L NGA SMITH, CMP #### [facility] [id number] Angela Aguero Urea nitrogen [Mass/Vol] 5.0 mg/dL Critically low 7.0-18.0 [facility] Comment on above: Performed By: #### L NGA SMITH, CMP #### [facility] [id number] Angela Aguero Urea nitrogen/Creatinine [Mass ratio] 6.1 mg/mg Normal [facility] Comment on above: Performed By: #### L NGA SMITH, CMP #### [facility] [address] [address] [address] Angela Aguero Coding Summary.on 02-06-2022 Coding Summary. CD:[id number] Gh0bW w+PGhlYWQ+VF0IRNUcY77ylPG trQ2QY5oACZ8ODXOPWPNIAG2N MO0ywAL2EEetA5QrfmOr WncsyUFjZQ24AAg1JFZ5rIlhL TvydL8aaCRiF7w9FtSaZR31oW 69SKlxJMViYhU3FbVtjhkelTH y N8htJnBrqVVaGck+PHRhYmxlI HdpZHRoPScxMDAlJyBzdHlsZT 5cVp5rALIxVDZloEtkvICcUsI j j4udDIGmRDyeOR4ooGvjA0Mzr DL6YPXer6l1Fu68lPU+PHRkIH W2pQjqFQewv267TxBgb8slDMF 3 hHZuZKpyRHT7X04lr1Z5ABRxW NVhPKN4lXZ7vD4roEfrwssrV5 KgiEBqPaI6MFD8zMGhqE3niUa n bdzkxK6eXwo+W36QEP5OWGXDS P8YYeo6Q0YbDadtyFP+PC90YW CfSV16jVChuJUfo3lhkTt8DuR w CRIrITX9gTgjFBnuy7TgVDVqP 86usFLgn9I7GBIelPpevJUcGy IxoJW5xU8cDCcnebblg8caxft n Yrdab5vubi06uA76X66cWNcqJ BIqVME5GJVqATZxnAypie4jrP 9wIi8+SYudh4nnb5dbjXh7OnN w VPMjrkWnbFqrGKM0h8QmRq45K 0YmpRxbs9GiQcl8fa45kLWnr0 B0yPM0EUdkMBKktV4vYWjaHyF 6 EZNkEfSscP26aTUjWTrgCd6ey OjajVmrVE2dWJCqnbeuMHJraR 3aKICjfNUlkRdsEL5yYJKegco m c571CxXuLZB6WTVosLPpM3Ren Y6gWbApNWYvXYLeH7JtnRVaEI flJ049CWuxKcI0EYMonjKgX4B s IHBanFuvCpT2o0C6Pg3Oq6Tfv auuMXA6RKidRDEsFiJlMwYrOw M1A1IkIyb6HGFshOgxCC1sO2F h NFFynmctkbyysJH1YOUdKWYqi V89hKAqOSwfVg2ew6W8e467KD QlBKBgpA29Ey7paQvqERZrcWN U jC8ufjosc4xepifzZnPrAURzZ Dv6YZj1BMUmwRfjBmLsJVU1Kc D0FFA3wKQlfT6qsHfyuazbqQ4 w Oyc+W31cjV8mVKY6WCQ0zutiH HZxdlJcCO02LC74G4JbTkpkgB FibGU+JIGqqrEwmXosTZ8kZuX j u2upp6CfKJjdY0SpPSIvKCpgR wj8ONEjKMU4mWB8zP6gIJVeQE qsd8U7pQT5O8CxidPool7ri9s s UCIsRImuD27vmVWoz5F0RRJiz QZ7DSHbvGxfKjWvvW73Cjr+PG KcxOgge6YcDivmv1dxd5vrfWx 9 SlCkMEKwwiLypMuqGZH7a6NrL f55F99lTMyvWORaBEFfLKJqZF MotMjybb4cnZ7aQl1+PGNvbCB 3 nUH7xT0yFBSjQdV7YQszJ345K wPldTOnYccex7scf8fkfBj7Vr MhKLXkbaOeaEsjSPK6b2EnDx2 8 Q04fPRpjUSIoZFMyCMWbOUTbd Fadiy0xtU2xEt5+BN6pn8zwti 35tV62oME+LALbCVO0bYbyDXd w ZFJbzC8qUAaeAeA5CWXcZaArp L12fHUkSIcgAt7bpBcktCyyOV 1yFJNzduvvs906MdCca7qdYRJ w bFRiHCyaKED5E23zv3J4CZAnL FAnJDQ1vIG2gO9kqTsdeejqsE FtpIkevcRslOukBHlzRHyeI94 6 IHRvcDsnPlBhdGllbnQgTmFtZ Mr0N3JdFjt8TGXbzEifWX7tuU LzLYxqTe6osLfmoCgiGS8yFRS p ogtya857OgXls7yrYEMccEBmN CgsZGV6M13dn2F9HPTmUYOpTU Y0cCX0bI2bsRljaojkzPCqfKv g kcOatFvoHTfdNRfmO019ARSym KthJpTfgaCvOFCdtOF8DI39YB 80ySAuy2W7wZE1P1WdRRRvqtv t sdmykPJ0VHWhPMWstX87Ay7lk LdaAp1yLEEpWFF3TDTyuTKyQ7 PpcG0fVgZoFNCgAOYeQ3SpoLE t FQtgU318YDgvAhP4BDLryxOpL 0XuMLPjkXnzEcE6i0E8Nc1JP7 M3LL36OU76qUNwy5W0gGE1I4N h JLGngtrwioryuQI3KGMgYWDzw M12Ir2olNmgSg4yJXBxVVY2XB LhsVAcN6KiwK8cAoInZBYvEAS w F2SpnNTeHSbeO815LHyaLzD9O TCrpxQbN6YdIJOvwGuqZzW3t3 P7Ki5PFIs5AE50VE29hHZyl3H 5 dFM9A1VgPXVqystpqjjtmGV7C GYwFFBqlQ29Eh0ujCwuBu7uPB AsMBV0UJBveHUxF1FosT7jAnR j MEYnDJScW3NmyRDaTUzrS729W FgrAlA4PSKuwiAuB8BoZVEbbI obHpI9a7S6Gu8WZOTqFW82CRH 5 cAM8AF51LR67H6ZmAxnskNSnj +PHRhYmxlIHdpZHRoPScxMD PgTiTbxHneYA3nEd9nGOTeROW v vFiutKNpUqOzq9xnNNWrSHgoO A6yiLbgO3FwcWA4RSLhn0l3Gv 10T08cA5AgtWN+IXZagCD7hOW 0 pN1tNgPlFmY4YMkdP795StNjn MXjHyqwa1bed9jbmRo2TuP9TZ YjizSjuKrsCLI8j3DqWx45A65 s IHdpZHRoPSIxNSUiIHZhbGlnb n9dtI0kHe8+XGXpoLI8yNG3gH 2rGxJrYrU1NAeyP578WbSckJC v Qgelt9lup5opiRn9FgZmTVBvp nJahTuyUEP1x8GaRr95I6YkvS qxc8YfWib5dc35xCTix3T3tTH 9 I3NlRBEfhvtkvQSzjEtyXE7qG AWhmsbjCDGjpS0gEIYqU5x9Dr IkFxJ3PWopS8WjtzC4OBQpqDY g LWsbLRM1E06to1U7EASvLOBpD BS5dFC3rK4yxXtseapkaVYdwR vytyAkwFetKWpkZEtfM541NEG v xUeqNFGlgI2tLSOguSKowOhzO X8xLBIaupoqAa8SJZaZFUNJFU mgUO9GOuGNUO58LT58tNJry4Q 5 pDS2G7ArGRWqpoiwofjqpYW7V OXaYAJjyI38sSIoJIbuHi0pf7 W9y953QIHeIGMrzR68En5ysOc g YWIjaKQPwP5uicfrw7qoucwnR tYhSBAiTEa6COs7DIKedHmyVh LhVIQ0IjP0OCI8wTXoeX6bxCb n fyxpjH7oUxx+VUKwBUtlHOa0T TwvdGQ+FQMiZRF7pLlrDHhcDU LtkF2uGMSjR6h5AyDhZiF4YLe u Y8JbYJYotnjhZr21jU0kZnHyS dL0DMenK4CtrbD9ILCvxPGcNC kvCTS9M66vd6T2TSBeQTHsQII 7 yCM1uZ8wrZikufqsvWNebIzoi qMvqYnuOKovCDrmE673BGDemJ taGzB2YLwtVNUfTI94MU35xAF g r4I3jZL8Y4OzJZVxafbohlxea ZS6VYBkGARkgJ16uLRvZXxaYm 3cj2U9p360AYRcDDRabQ46Wx7 u bAppNPAxeBZYvS4ibexvy2edy hdqQvDxIGGyQZo8QJi5TACmwE fmGvCjYGE0OxT5ICG5nNFmdH6 h fCngyufecX9eXzt+RmVtYWxlP H88RD07bNAkz5G7lNE0G4ImCG XxmjuxvcuryOH9RWBeGLLvmL8 7 aKPwJIurRn5lu8M0a250DWFiF RQvhE70Pe3zeMqoSANqhHWBqA 8mqbyui7xbglyeIbXqCVZuDKl 0 XBi4NXTraDjrVnTgEVH9TzN1W KA9oMOdjK1okYcdyejgaW0tRk c+SL5mxzhzskV6MF52LF75I1I y PjwvdGFibGU+PHRhYmxlIHdpZ TUxFXkxRIRiXvLkpMwzKQ2bZh 1wFWTuFRSerNxnbGDbKrEut8t s XPYfNRbkTW2snSvpP5VlkOI1T APvf5k5Fg08K37qY1YjeHI+PG ZlyAT7jDG4uG2gXoUuGdE2JOb p Y727VmHmnXKpPjahn7ceg9pzg Ct8ZxPiWBXhwoDsrXzmVBA0o4 BrFc32V72tKZujKRYuWIJrPAP i YQWvhKkivo5dyJ3vVy4+PGNvb VM9yBM0tM3wYpDxXeF1CQafS5 62MxSisAAwNdhnH41pX7GndQG + JUApDvy1WIZijIscXU3kgWEeT DsmLe6zEJM1AhClTzToOLbhV0 IzYYNtkjegniwmoBD9UDIzJKQ w bE31Ek3teGytOv1yALGpAJV2U GRupAPwN2JucO0yJwXpXMYfQJ BiM2LgoWYsGMmtA581BOuwBiZ 7 ABMlliGmH6FpXQCtiKauBoS3l 8P3Ax1KhGkfwHHnGM9oVpMwMR h9W2LiIcf7RBUkcFarTW4zwHS k BFvoVn3cmWpsoYujIC1jMMDjy wlpz011RrQai4mtKDOhzKPbZC exSBE2Z21op4P4TRWbQPAfVWJ 7 vMG5wF2gnUfpxtusuGBjwSrgb hOroNipTZcxQWcdA271MTElrE rrHbEBQlo9F4UtBxr0QCObdXv s QY8ziFTeNQdrBd4qpUfnmBalN H3tQHNkafrbk880FjMop3foUF DgjNAkJBagTOB3G51ep2O8MBS w IPWlLSZ8iYZ9eE5pvBbqbrixm GVmdDsgdmVydGljYWwtYWxpZ2 62KTRxcBppLm1NBcz7T3GeLvk 0 LVKueJdpJN6axCXlNFayUe3ev GwfqAxrJH9pIOIwgmjco827As Vzg4luKLTliXNuZHaqIMK3K77 s k0V0LIRmMLPnIEG4yMV7hU3vv GlnbjogbGVmdDsgdmVydGljYW nhQQjxT694QNXzbKyoDaQicGA y OjwvdGQ+JT98bz75Y2LpNjcmM ji4SCJiQFB3zVP3vV0sNLRcLH rei5Q0rFD3L3NkqfZafi7gd6p s YXBz (more content not included)... [facility] C Urineon 02-03-2022 Bacteria identified Cx Nom [...] Locations R1: This test was performed at: [facility], [address] [place] [address], [id number] , , [facility] Comment on above: Performed By: #### 2 [id number], [id number] ####[place] [address] Auto Diffon 02-02-2022 Basophils/100 WBC (Bld) 0.9 % Normal 0.0-2.[address] [facility] Comment on above: Order Comment: Order Added by Discern Expert. Performed By: #### 2 [id number], [id number], [id number], [id number], [id number], [id number] ####[address] [place] [address] Basophils/Leukocytes Auto (Bld) [Pure # fraction] 0.1 E9/L Normal 0.0-0.[address] [facility] Comment on above: Order Comment: Order Added by Discern Expert. Performed By: #### 2 [id number], [id number], [id number], [id number], [id number] ####[address] [place] [address] Eosinophils/100 WBC (Bld) 0.6 % Normal 0.0-8.[address] [facility] Comment on above: Order Comment: Order Added by Discern Expert. Performed By: #### 2 [id number], [id number], 9129461, [id number], [id number], [id number] ####[address] [address] Eosinophils/Leukocytes Auto (Bld) [Pure # fraction] 0.0 E9/L Normal 0.0-0.[address] [facility] Comment on above: Order Comment: Order Added by Discern Expert. Performed By: #### 2 506463, [id number], [id number], [id number], [id number], [id number] ####[address] [place] [address] Lymphocytes/100 WBC (Bld) 22.1 % Normal 14.0-50.[address] [facility] Comment on above: Order Comment: Order Added by Discern Expert. Performed By: #### 2 859602, [id number], 0913201, [id number], [id number], [id number] ####[address] [place] [address] Lymphocytes/Leukocytes Auto (Bld) [Pure # fraction] 1.3 E9/L Normal 1.0-4.[address] [facility] Comment on above: Order Comment: Order Added by Discern Expert. Performed By: #### 2 416785, 4612802, 6437651, [id number], [id number], [id number] ####[facility] [id number] [place] [address] Monocytes/100 WBC (Bld) 9.5 % Normal 4.0-14.[address] [facility] Comment on above: Order Comment: Order Added by Discern Expert. Performed By: #### 2 867438, 1791403, 5873064, 2846801, [id number], [id number] ####[address] [place] [address] Monocytes/Leukocytes Auto (Bld) [Pure # fraction] 0.6 E9/L Normal 0.2-1.[address] [facility] Comment on above: Order Comment: Order Added by Discern Expert. Performed By: #### 2 252220, 5326433, 0563514, 0886532, [id number], 6227962 ####[facility] [address] [place] [address] Neutrophils/100 WBC (Bld) 66.9 % Normal 36.0-75.[address] [facility] Comment on above: Order Comment: Order Added by Discern Expert. Performed By: #### 2 408920, 8869369, 1733582, 1449071, 35442565, 4011312 ####[address] [place] [address] Neutrophils/Leukocytes Auto (Bld) [Pure # fraction] 4.0 E9/L Normal 2.0-7.[address] [facility] Comment on above: Order Comment: Order Added by Discern Expert. Performed By: #### 2 487406, 6812216, 7488132, 6146687, 35334670, 4979709 ####[facility] [address] [place] [address] B hCG Qualon 02-02-2022 Beta hCG Ql Negative Normal [facility] Comment on above: Performed By: #### 2 [id number] ####[facility] [address] [place] [address] BMPon 02-02-2022 Anion gap [Moles/Vol] 21 mmol/L High 6-16 [facility] Comment on above: Performed By: #### 2 855263, 7510463, 3639903, 5835024, 68496646, 3306030 ####[facility] [address] [place] [address] Calcium [Mass/Vol] 9.2 mg/dL Normal 8.9-11.[address] [facility] Comment on above: Performed By: #### 2 950200, 3696536, 9763249, 7853198, 34926780, 9801320 ####[facility] [address] [place] [address] Chloride [Moles/Vol] 100 mmol/L Low 101-111 [facility] Comment on above: Performed By: #### 2 604737, 2574128, 2780789, 1827641, 25999982, 6243682 ####[facility] [address] [place] [address] CO2 [Moles/Vol] 20 mmol/L Low 21-31 [facility] Comment on above: Performed By: #### 2 440783, 5826032, 5066322, 7984646, 61106591, 7244014 ####[facility] [address] [place] [address] Creatinine [Mass/Vol] 0.7 mg/dL Normal 0.5-1.3 [facility] Comment on above: Performed By: #### 2 387373, 5710522, 3149145, 5041870, 33311217, 7526490 ####[facility] [address] [place] [address] Glucose [Mass/Vol] 176 mg/dL Normal 55-[address] [facility] Comment on above: Result Comment: If t his glucose result represents a fasting glucose, interpretation should refer to the following reference range: 55-99 mg/dL Performed By: #### 2 920027, 0632617, 2102322, 7331315, 77336363, 9262820 ####[facility] [address] [place] [address] Potassium [Moles/Vol] 3.4 mmol/L Low 3.5-5.3 [facility] Comment on above: Performed By: #### 2 248212, 1919470, 1092570, 3831549, 02744144, 2536974 ####[facility] [address] [place] [address] Sodium [Moles/Vol] 138 mmol/L Normal 135-[address] [facility] Comment on above: Performed By: #### 2 489857, 5499757, 8030074, 7223971, 84769661, 6728942 ####[facility] [address] [place] [address] Urea nitrogen [Mass/Vol] mg/dL Normal 5-[address] [facility] Comment on above: Performed By: #### 2 570635, 4255190, 9074292, 4823158, [id number], [id number] ####[facility] [address] [place] [address] Urea nitrogen/Creatinine [Mass ratio] UTC Abnormal 10-[address] [facility] Comment on above: Result Comment: Resu lt verified by Discern Rule. Performed result UTC (Unable to Calculate) was sent as an Alpha code due the inability to calculate a valid numeric value. Performed By: #### 2 548235, 2478414, 3274980, 3245679, 45505975, 3316740 ####[facility] [address] [place] [address] CBC w/ Auto Diffon Erythrocyte distribution width (RBC) [Ratio] 13.6 % Normal 10.9-14.[address] [facility] Comment on above: Performed By: #### 2 334335, 6139477, 4455960, 2172176, 03504578, 4745241 ####[facility] [address] [place] [address] Hematocrit (Bld) [Volume fraction] 44.9 % Normal 34.0-46.[address] [facility] Comment on above: Performed By: #### 2 027341, 5925187, 0280794, 0214643, 26502398, 7494799 ####[facility] [address] [place] [address] Hemoglobin (Bld) [Mass/Vol] 15.6 g/dL Normal 12.0-16.[address] [facility] Comment on above: Performed By: #### 2 731755, 3290159, 2673874, 0214607, 07928326, 2131720 ####[place] [id number] MCH (RBC) [Entitic mass] 34.3 pg High 27.0-34.[address] [facility] Comment on above: Performed By: #### 2 251333, 3044061, 1138829, 4635565, 90219211, 4311004 ####[place] 8224957 MCHC (RBC) [Mass/Vol] 34.7 g/dL Normal 31.4-36.0 [facility] Comment on above: Performed By: #### 2 857939, 1190316, 0214852, 1745133, 54663136, 1305680 ####[place] 8224957 MCV (RBC) [Entitic vol] 98.8 fL Normal 80.0-100.[address] [facility] Comment on above: Performed By: #### 2 466433, 1123698, 8914382, 0066243, 41682006, 9690501 ####[place] [address] [place] [address] Platelet mean volume (Bld) [Entitic vol] 7.5 fL Normal 6.4-10.[address] [facility] Comment on above: Performed By: #### 2 553093, 2766078, 9682130, 0330847, 67418145, 9551875 ####[facility] [address] [place] [address] Platelets (Bld) [#/Vol] 199.0 E9/L Normal 150.0-500. [address] [facility] Comment on above: Performed By: #### 2 193859, 0523124, 8861250, 8118200, 73718773, 4166441 ####[facility] [address] [place] [address] RBC (Bld) [#/Vol] 4.6 E12/L Normal 4.3-5.[address] [facility] Comment on above: Performed By: #### 2 260856, 5220402, 1304967, 9691946, 24804986, 8957692 ####[facility] [address] [place] [address] WBC corrected for nucl RBC Auto (Bld) [#/Vol] 6.0 E9/L Normal 4.0-11.0 [facility] Comment on above: Performed By: #### 2 828632, 8092576, 7277331, 0465306, 70387226, 5508416 ####[facility] [address] [place] [address] CT Abdomen/Pelvis w/ Contras ton 02-02-2022 CT [...] 300 Contrast amount in ml's: [address] [facility] Discharge Instructionson Discharge Instructions [id number]#[id number]:[address] [facility] ED Clinical Summaryon 2021 ED Clinical Summary (Inserted Image. Jackie ble to display) [place] [id number] ED Clinical Summary Person Information Name: SHIKHA LOERA Melly/[facility] Age: 36 Years : 1985 Sex: Female Language: Chinese PCP: AVERY BLANCA CNP Marital Status: Visit [...] 00:18:27 02/02/2022 00:18:27 02/02/2022 00:18:27 ADDRESS: [address] [place] [address] [id number] PHYS DOC NOTES: MEDICAL INFORMATION: Prescriptions Given: New Medications Printed Prescriptions acetaminophen-hydrocodone (Hendricks 325 mg-5 mg oral tablet) 1 Tablets By Mouth every 6 hours as needed for pain. Refills: 0. sulfamethoxazole-trimetho prim (Bactrim DS 800 mg-160 mg Tab) 1 Tablets By Mouth 2 times a day for 10 Days. Refills: 0. PATIENT EDUCATION INFORMATION: Instructions: Pyelonephritis, Adult, Lcbo-cj-Ffzg Follow up: With: Address: When: AVERY LBANCA [address] [facility] [address] [place] [address] [phone] Business (1) In 3 days 02/05/2022 Comments: You can use the pain medication every 6 hours as needed for pain, take the Bactrim twice daily until you have completed the course. Please follow-up with your primary care doctor the next 2 to 3 days. Please return to the ED for any new or worsening symptoms. DIAGNOSIS: Acute pyelonephritis Normal [facility] ED Note-Physicianon 02-03-20 22 ED Note-Physician [...] Crohn's disease sees a GI doctor at [facility] who she is unsure of who this [...] home. Is given a short course of Hendricks to go home with. She is given [...] hydroxide/Mg hydroxide/simethicone (more content not included)... Normal [facility] Comment on above: Result Comment: Elec [...] you start to feel better. ? Take vkcb-fpd-zsjvaxe and prescription medicines only as told by [...] 05/03/2005 Document Revised: 01/28/2019 Document Reviewed: 01/28/2019 [employer] Patient Education ? [address] [employer] Normal [facility] ED Patient Summaryon 022 ED Patient Summary (Inserted Image. Jackie ble to display) [place] [id number] Patient Discharge Instructions Person Information Name: SHIKHA LOERA Age: 36 Years Arrival Date: 02/01/2022 21:23:41 Discharge Diagnosis: Acute pyelonephritis Primary Care Physician: AVERY BLANCA CNP Provider Information Primary Provider: Judith Mock DO Advanced Cable Assembler:None The exam and treatment you received in the Emergency Department were for an urgent problem and are not intended as complete care. It is important that you follow up with a doctor, nurse practitioner, or physician?s field research assistant for ongoing care. If your symptoms [...] With: Address: When: AVERY BLANCA [address] [facility] [address] [place] [address] [phone] Business (1) In 3 days 02/05/2022 Comments: [...] participating provider. Patient Education Materials: Pyelonephritis, Adult, Hiav-jh-Mglv A MESSAGE TO ALL PATIENTS REGARDING OPIOIDS PRESCRIPTION OPIOIDS: WHAT YOU NEED TO KNOW Prescription opioids can be used to help relieve jxuckssw-en-sjjzde pain and are often prescribed following a [...] (www.fda.gov/Drugs/Resour cesForYou). (more content not included)... Normal [facility] Hep Func Panelon 02-02-2022 Albumin [Mass/Vol] 4.5 g/dL Normal 3.3-5.[address] [facility] Comment on above: Performed By: #### 2 103803, 0036418, 8829877, 2688746, 24091500, 4389318 ####[facility] [address] [place] [address] Albumin/Globulin (S) [Mass conc ratio] 1.1 Normal 1.1-2.[address] [facility] Comment on above: Performed By: #### 2 293912, 2179660, 3216829, 4247609, 95596319, 6995621 ####[place] [address] [place] [address] ALP [Catalytic activity/Vol] 98 Int._Unit/L Normal 21-[address] [facility] Comment on above: Performed By: #### 2 427479, 2731458, 9004072, 3775753, 38377468, 2272662 ####[address] [address] ALT No additional P-5'-P [Catalytic activity/Vol] 57 Int._Unit/L High 6-[address] [facility] Comment on above: Performed By: #### 2 647585, 4959051, 0273482, 7149742, 54274601, 1402347 ####[address] [address] AST [Catalytic activity/Vol] 157 Int._Unit/L High 5-[address] [facility] Comment on above: Performed By: #### 2 736397, 4226370, 6684625, 8459089, 96691689, 2972775 ####[address] [address] Bilirubin [Mass/Vol] 1.4 mg/dL High 0.0-1.1 [facility] Comment on above: Performed By: #### 2 010850, 2628967, 6115899, 7910635, 47853776, 7168947 ####[address] [address] Bilirubin.direct [Mass/Vol] 0.5 mg/dL High 0.1-0.[address] [facility] Comment on above: Performed By: #### 2 110390, 0901988, 1967575, 2536241, 06736140, 4970779 ####[facility] [address] [place] [address] Bilirubin.indirect [Mass or moles/Vol] 0.9 mg/dL Normal 0.1-0.[address] [facility] Comment on above: Performed By: #### 2 400544, 2478258, 0260837, 0760048, 72464052, 0135787 ####[facility] [address] [place] [address] Globulin (S) [Mass/Vol] 4.1 g/dL High 1.4-4.[address] [facility] Comment on above: Performed By: #### 2 462718, 5254760, 9115421, 2195218, 87095626, 9444623 ####[facility] [address] [place] [address] Protein [Mass/Vol] 8.6 g/dL High 6.0-7.[address] [facility] Comment on above: Performed By: #### 2 792987, 6818728, 5565938, 0154007, 11621957, 2746116 ####[place] [address] [place] [address] Lipase Levelon 02-02-2022 Lipase [Catalytic activity/Vol] 57 U/L Normal 13-[address] [facility] Comment on above: Performed By: #### 2 195827, 8221881, 7964134, 1682828, 08442488, 1658258 ####[facility] [address] [place] [address] Prescriptions/Work Noteson 1 Prescriptions/Work Notes [id number]#1.00CD:[address] [facility] RAD - Preliminary Cat Scan R eporton 02-02-2022 RAD - Preliminary Cat Scan Report [id number]#1.00CD:[address] [facility] UA With Cult Reflexon 2021 Bacteria LM Ql (Urine sed) 2+ /HPF Abnormal Trace [facility] Comment on above: Performed By: #### 2 326757, 12366752 ####[facility] [address] [place] [address] Bilirubin Ql (U) Negative Normal Negative [facility] Comment on above: Performed By: #### 2 806314, 34888259 ####[facility] [address] [place] [address] Clarity (U) SL CLOUDY Invalid Interpretation Code [facility] Comment on above: Performed By: #### 2 566291, 74148336 ####[facility] [address] [place] [address] Color (U) YELLOW Normal Yellow [facility] Comment on above: Performed By: #### 2 440935, 79750780 ####[facility] [address] [place] [address] Epithelial cells.squamous LM.HPF (Urine sed) [#/Area] 3-4 Normal 0-2 [facility] Comment on above: Performed By: #### 2 730412, 68024969 ####[facility] [address] [place] [address] Glucose Test strip (U) [Mass/Vol] Negative Normal Negative [facility] Comment on above: Performed By: #### 2 939053, 47673523 ####[facility] [address] [place] [address] Hemoglobin Ql (U) 1+ Abnormal Negative [facility] Comment on above: Performed By: #### 2 265008, 37131979 ####[facility] [address] [place] [address] Ketones (U) [Mass/Vol] Negative Normal Negative [facility] Comment on above: Performed By: #### 2 096933, 38547380 ####[facility] [address] [place] [address] Mcbain.plasma/Mcbain .RBC (Bld) [Mass ratio] 4-20 Normal 0-[address] [facility] Comment on above: Performed By: #### 2 738991, 05039378 ####[facility] [address] [place] [address] Nitrite Ql (U) Negative Normal Negative [facility] Comment on above: Performed By: #### 2 709868, 79230072 ####[facility] [address] [place] [address] pH (U) 5.0 [pH] Invalid Interpretation Code 5.0-9.[address] [facility] Comment on above: Performed By: #### 2 098386, 03567033 ####[facility] [address] [place] [address] Protein (U) [Mass/Vol] Negative Normal Negative [facility] Comment on above: Performed By: #### 2 274245, 40465207 ####[place] [address] Specific gravity (U) [Rel density] <=1.005 Invalid Interpretation Code 1.005-1.[address] [facility] Comment on above: Performed By: #### 2 188091, 68174493 ####[place] [address] Type of Urine collection method Clean Catch Normal [facility] Comment on above: Performed By: #### 2 201847, 02307098 ####[place] 8224957 Urobilinogen Qn (U) 0.2 {Concetta'U}/dL Normal 0.0-1.[address] [facility] Comment on above: Performed By: #### 2 264962, 30313721 ####[place] 8224957 WBC Auto Ql (U) 2+ Abnormal Negative [facility] Comment on above: Performed By: #### 2 996538, 33171448 ####[facility] [address] [place], [place] [address] WBC LM.HPF (Urine sed) [#/Area] 26-30 Abnormal 0-[address] [facility] Comment on above: Performed By: #### 2 942817, 32239659 ####[facility] [address] [place] [address] US Gallbladderon 02-02-2022 US Gallbladder Exam Date/Time: [...] V. Transcribed by: BENNY Technologist: MLE Normal [facility] eGFRon 02-02-2022 GFR/1.73 sq M.predicted among blacks MDRD (S/P/Bld) [Vol rate/Area] mL/min/{1.73_m2} Normal >=[address] [facility] Comment on above: Order Comment: Order added by Discern Expert. Result Comment: eGFR is race adjusted. AA=. Performed By: #### 2 007567, 8452490, 8336001, 0254872, 10975444, 7140432 ####[facility] [address] [place] [address] GFR/1.73 sq M.predicted among non-blacks MDRD (S/P/Bld) [Vol rate/Area] mL/min/{1.73_m2} Normal >=[address] [facility] Comment on above: Order Comment: Order added by Discern Expert. Result Comment: Attache cj kidney disease could be indicated at eGFR's of less than 60 mL/min/1.73m2. Kidney failure is indicated at less than 15 mL/min/1.73m2. Performed By: #### 2 531641, 7726493, 0526256, 4564198, 21108745, 4794557 ####[facility] [address] [place] [address] CHEMISTRYOrdered By: Jorge ruby on 02-01-2022 Albumin [...] [Mass/Vol] mg/dL Normal 5 - 21 mg/dL [facility] Remisol CHEMISTRYOrdered By: SYSTEM SYSTEM on 02-01-2022 GFR/1.73 sq M.predicted among blacks MDRD (S/P/Bld) [Vol rate/Area] mL/min/1.73 m2 Normal >=59mL/min /1.73 m2 [facility] Chem S GFR/1.73 sq M.predicted among non-blacks MDRD (S/P/Bld) [Vol rate/Area] mL/min/1.73 m2 Normal >=59mL/min /1.73 m2 [facility] Chem S Urea nitrogen/Creatinine [Mass ratio] Unable to Calculate Invalid Interpretation Code [facility] Remisol Consent for Treatmenton 01-08 Consent for Treatment [id number]#1.00CD:[address] [facility] HEMATOLOGYOrdered By: SYSTEM SYSTEM on 02-01-2022 [...] Nom (U) >100,000 cfu/ml Gram Negative [employer] A[employer] species [facility] SEROLOGYOrdered By: Jorge pop on 02-01-2022 Beta hCG Ql Negative (02/01/22 9:55 PM) Normal [facility] Man Sero URINALYSISOrdered By: Jorge Esquivel on [...] PM) Normal Negative [facility] UA Auto SS Mcbain.plasma/Mcbain .RBC (Bld) [Mass ratio] 4-20 /HPF Normal [...] [facility] UA Auto SS Urobilinogen Qn (U) 0.9572449 {Concetta'U}/dL Normal 0.0 - 1.0 EU/dL [facility] UA Auto SS WBC Auto Ql (U) 2+ *ABN* (02/01/22 11:42 PM) Invalid Interpretation Code Negative [facility] UA Auto SS WBC LM.HPF (Urine sed) [#/Area] 26-30 /HPF Invalid Interpretation Code 0-5/HPF [facility] UA Auto SS Albumin [Mass/volume] in Ser um or PlasmaOrdered By: Delfino Reese on 01-18-2022 Albumin [Mass/Vol] 3.8 g/dL 3.2-5.5 [facility] C reactive protein [Mass/vol ume] in Serum or PlasmaOrdered By: Delfino Reese on 01-18-2022 CRP [Mass/Vol] 1.9 mg/dL 0.0-1.0 [facility] Creatinine and Glomerular fi ltration rate.predicted panel (S/P/Bld)Ordered By: Delfino Reese on 01-18-2022 Creatinine [Mass/Vol] 0.57 mg/dL 0.44-1.03 [facility] Erythrocyte sedimentation ra te by Photometric methodOrdered By: Delfino Reese on 01-18-2022 ESR Photometric method (Bld) [Velocity] 8 mm/hr 0-19 [facility] Estimated glomerular filtrat ion rate (GFR) non- AmericanOrdered By: Delfino Reese on 01-18-2022 GFR/1.73 sq M.predicted among non-blacks MDRD (S/P/Bld) [Vol rate/Area] > 60 mL/Min [facility] Folate [Mass/volume] in Seru m or PlasmaOrdered By: Delfino Reese on 01-18-2022 Folate [Mass/Vol] 10.4 ng/mL >5.9 [facility] Comment on above: Folate reference ran ge: >5.9 ng/mlThe WHO technical consultation on folate and vitamin i26lyxxqloibohb has determined that folate concentrations lessthan 4 ng/ml are considered deficient. Globulin Calc (S) [Mass/Vol] Ordered By: Delfino Reese on 01-18-2022 Globulin (S) [Mass/Vol] 3.2 g/dL [facility] Laboratory - Chemistry and C hemistry - challengeOrdered By: Delfino Reese on 01-18-2022 Cobalamin (Vitamin B12) [Mass/Vol] 588 pg/mL 180-914 [facility] No Panel InformationOrdered By: Delfino Reese on 01-18-2022 Estimated GFR () > 60 mL/Min [facility] Comment on above: GFR estimated refere nce range: According to KDOQI guidelines, <60 ml/min/1.73m2 is sufficient to diagnose a patient with chronic kidney disease. Pharmacy Creatinine Clearance (Chem N/A [facility] Protein [Mass/volume] in Ser um or PlasmaOrdered By: Delfino Reese on 01-18-2022 Protein [Mass/Vol] 7.0 g/dL 6.1-7.9 [facility] Serum or plasma alanine montes otransferase measurement without P-5'-P (enzymatic activiOrdered By: Delfino Reese on 01-18-2022 ALT No additional P-5'-P [Catalytic activity/Vol] 58 U/L [facility] Serum or plasma albumin/glob ulin mass ratioOrdered By: Delfino Reese on 01-18-2022 Albumin/Globulin [Mass ratio] 1.2 {ratio} [facility] Serum or plasma alkaline florencio sphatase measurement (enzymatic activity/volume)Ordered By: Delfino Reese on 01-18-2022 ALP [Catalytic activity/Vol] 90 U/L 32-92 [facility] Serum or plasma anion gap de terminationOrdered By: Delfino Reese on 01-18-2022 Anion gap [Moles/Vol] 16.5 mmol/L 6.0-15.0 [facility] Serum or plasma aspartate am inotransferase measurement (enzymatic activity/volume)Ordered By: Delfino Reese on 01-18-2022 AST [Catalytic activity/Vol] 84 U/L [facility] Serum or plasma calcium archie urement (mass/volume)Ordered By: Delfino Reese on 01-18-2022 Calcium [Mass/Vol] 9.2 mg/dL 8.2-10.2 [facility] Serum or plasma chloride luz surement (moles/volume)Ordered By: Delfino Reese on 01-18-2022 Chloride [Moles/Vol] 105 mmol/L 95-114 [facility] Serum or plasma glucose archie urement (mass/volume)Ordered By: Delfino Reese on 01-18-2022 Glucose [Mass/Vol] 114 mg/dL 70-100 [facility] Comment on above: ADA recommended refe rence rangeRandom Glucose Reference Range is dependent on time and content of last meal. Glucose of more than 200 mg/dL in a nonstressed, ambulatory subject supports the diagnosis of Diabetes Mellitus. Serum or plasma potassium me asurement (moles/volume)Ordered By: Delfino Reese on 01-18-2022 Potassium [Moles/Vol] 3.5 mmol/L 3.5-5.1 [facility] Serum or plasma sodium measu rement (moles/volume)Ordered By: Delfino Reese on 01-18-2022 Sodium [Moles/Vol] 143 mmol/L 136-146 [facility] Serum or plasma total biliru bin measurement (mass/volume)Ordered By: Delfino Reese on 01-18-2022 Bilirubin [Mass/Vol] 0.8 mg/dL 0.3-1.2 [facility] Serum or plasma total carbon dioxide measurement (moles/volume)Ordered By: Delfino Reese on 01-18-2022 CO2 [Moles/Vol] 25.0 mmol/L 22.0-30.0 [facility] Serum or plasma urea nitroge n measurement (mass/volume)Ordered By: Delfino Reese on 01-18-2022 Urea nitrogen [Mass/Vol] 1 mg/dL 9-23 [facility] TSH DL <= 0.005 mIU/L QnOrde red By: Delfino Reese on 01-18-2022 TSH Qn 7.46 m[IU]/L 0.45-5.33 [facility] Thyroxine (T4) free [Mass/vo lume] in Serum or PlasmaOrdered By: Delfino Reese on 01-18-2022 Free T4 [Mass/Vol] 0.71 ng/dL 0.61-1.12 [facility] Bacteria identified Anaer cx Nom (Unsp spec)Ordered By: Delfino Reese on 12-26-2021 Anaerobic microbial culture No Anaerobes Isolated 3 Days [facility] ABO and Rh group post transf usion reaction Nom (Bld)Ordered By: Delfino Reese on 12-23-2021 Microscopic observation Gram stain Nom (Unsp spec) [facility] Albumin [Mass/volume] in Cer ebral spinal fluidOrdered By: Delfino Reese on 12-23-2021 Albumin (CSF) [Mass/Vol] 14 mg/dL 7-29 [facility] Albumin [Mass/volume] in Ser um or PlasmaOrdered By: Delfino Reese on 12-23-2021 Albumin [Mass/Vol] 4.2 g/dL 3.8-4.8 [facility] CSF IgG/albumin ratioOrdered By: Delfino Reese on 12-23-2021 IgG/Albumin (CSF) [Mass ratio] 0.10 0.00-0.25 [facility] Cerebrospinal fluid IgG inde xOrdered By: Delfino Reese on 12-23-2021 IgG clearance/Albumin clearance (S+CSF) [Ratio] 0.6 0.0-0.7 [facility] Cerebrospinal fluid glucose measurement (mass/volume)Ordered By: Delfino Reese on 12-23-2021 Glucose (CSF) [Mass/Vol] 87 mg/dL 40-70 [facility] Cerebrospinal fluid post-antonia trifugation appearance determinationOrdered By: Delfino Reese on 12-23-2021 Appearance (Spun CSF) Colorless Colorless [facility] Cerebrospinal fluid sample t ube volume measurementOrdered By: Delfino Reese on 12-23-2021 Specimen volume (CSF) 2.[address] [facility] Color CSFOrdered By: Delfino Reese on 12-23-2021 Color (CSF) Colorless Colorless [facility] IgG [Mass/volume] in Cerebra l spinal fluidOrdered By: Delfino Reese on 12-23-2021 IgG (CSF) [Mass/Vol] 1.4 mg/dL 0.0-6.7 [facility] IgG [Mass/volume] in Serum o r PlasmaOrdered By: Delfino Reese on 12-23-2021 IgG [Mass/Vol] 708 mg/dL 586-1602 [facility] IgG synthesis rate [Mass/aleksey e] in Serum and CSF by calculationOrdered By: Delfino Reese on 12-23-2021 IgG synthesis rate Calc (S+CSF) [Mass/Time] -1.0 mg/day -9.9 TO +3.3 [facility] Comment on above: Performed at: [facility] [place] [address] [place], [place] [id number] Brass Cleaner: Torsten Vidal PhD, Phone: [phone] Performed at: [facility] [email or web address] [id number] [place], [place] [id number] Director: Torsten Vidal PhD, Phone: [phone] Manual cerebrospinal fluid e rythrocytes count (number/volume)Ordered By: Delfino Reese on 12-23-2021 RBC Manual cnt (CSF) [#/Vol] 77 /uL [facility] Comment on above: The reference interv al and other method performance specifications have not been established for this body fluid. The test result must be integrated into the clinical context for interpretation. No Panel InformationOrdered By: Delfino Reese on 12-23-2021 CSF Appearance Clear Clear [facility] CSF Eosinophils N/A [facility] CSF Lymphocytes 1 [facility] Comment on above: The reference interv al and other method performance specifications have not been established for this body fluid. The test result must be integrated into the clinical context for interpretation. CSF Monocytes 1 [facility] Comment on above: The reference interv al and other method performance specifications have not been established for this body fluid. The test result must be integrated into the clinical context for interpretation. CSF Myelin Basic Protein 3.3 ng/mL 0.0-3.7 [facility] Comment on above: Results of this test are labeled for research purposes only by the assay's features reporter. The performance characteristics of this assay have not been established by the features reporter. The result should not be used for treatment or for diagnostic purposes without confirmation of the diagnosis by another medically established diagnostic product or procedure. The performance characteristics were determined by [facility]. Performed at: [address] [id number] Brass Cleaner: Charlie Manriquez MD, Phone: [phone] Results of this test are labeled for research purposes onlyby the assay's features reporter. The performancecharacteristics of this assay have not been established bythe features reporter. The result should not be used fortreatment or for diagnostic purposes without confirmationof the diagnosis by another medically establisheddiagnostic product or procedure. The performancecharacteristics were determined by [facility].Performed at: - [facility] [id number] Director: Charlie Manriquez MD, Phone: [phone] CSF Neutrophils N/A [facility] CSF Total Cells Counted 2 [facility] CSF Tube Number Tube number: 1 [facility] Nucleated cells [#/volume] i n Cerebral spinal fluid by Manual countOrdered By: Delfino Reese on 12-23-2021 Nucleated cells Manual cnt (CSF) [#/Vol] 0.002 10*3/uL 0-5 [facility] Protein [Mass/volume] in Cer ebral spinal fluidOrdered By: Delfino Reese on 12-23-2021 Protein (CSF) [Mass/Vol] 23 mg/dL 15-45 [facility] Protein fractions.oligoclona l bands.intrathecal [Presence] in Serum and CSFOrdered By: Delfino Reese on 12-23-2021 Protein fractions.oligoclonal bands.intrathecal Ql (S+CSF) See comment . [facility] Comment on above: Zero (0) oligoclonal [...] Focusing (IEF) and immunoblotting methodology. Performed at: [address] [id number] Brass Cleaner: Torsten Vidal PhD, Phone: [phone] Zero (0) oligoclonal bands were observed in [...] using IsoelectricFocusing (IEF) and immunoblotting methodology.Performed at: [address] [id number] Director: Torsten Vidal PhD, Phone: [phone] Basophils Auto (Bld) [#/Vol] Ordered By: Avery Blanca on 11-25-2021 Basophils (Bld) [#/Vol] 0.0 10*3/uL 0.0-0.2 [facility] Basophils/100 WBC Auto (Bld) Ordered By: Avery Blanca on 11-25-2021 Basophils/100 WBC (Bld) 0.5 % . [facility] Blood hemoglobin measurement (mass/volume)Ordered By: Avery Blanca on 11-25-2021 Hemoglobin (Bld) [Mass/Vol] 15.4 g/dL 11.8-15.4 [facility] Blood leukocytes automated c ount (number/volume)Ordered By: Avery Blanca on 11-25-2021 WBC (Bld) [#/Vol] 5.3 10*3/uL 4.5-11.0 [facility] Blood thiamine measurement ( moles/volume)Ordered By: Avery Blanca on 11-25-2021 Thiamine (Bld) [Moles/Vol] 113.7 nmol/L 66.5-200.0 [facility] Comment on above: This test was develo ped and its performance characteristics determined by [facility]. It has not been cleared or approved by the Food and Drug Administration. Performed at: [address] [id number] Brass Cleaner: Charlie Manriquez MD, Phone: [phone] This test was develo ped and its performance characteristicsdetermined by [facility]. It has not been cleared orapproved by the Food and Drug Administration.Performed at: [facility] [id number] Director: Charlie Manriquez MD, Phone: [phone] Body fluid albumin measureme nt (mass/volume)Ordered By: Avery Blanca on 11-25-2021 Albumin (Body fld) [Mass/Vol] 4.0 g/dL 3.2-5.5 [facility] Creatinine and Glomerular fi ltration rate.predicted panel (S/P/Bld)Ordered By: Avery Blanca on 11-25-2021 Creatinine [Mass/Vol] 0.67 mg/dL 0.44-1.03 [facility] Eosinophils Auto (Bld) [#/Vo l]Ordered By: Avery Blanca on 11-25-2021 Eosinophils (Bld) [#/Vol] 0.1 10*3/uL 0.0-0.45 [facility] Eosinophils/100 WBC Auto (Bl d)Ordered By: Avery Blanca on 11-25-2021 Eosinophils/100 WBC (Bld) 1.3 % . [facility] Erythrocyte distribution wid th Auto (RBC) [Ratio]Ordered By: Avery Blanca on 11-25-2021 Erythrocyte distribution width (RBC) [Ratio] 13.5 % 11.9-15.3 [facility] Erythrocyte sedimentation ra te by Photometric methodOrdered By: Avery Blanca on 11-25-2021 ESR Photometric method (Bld) [Velocity] 14 mm/hr 0- [facility] Estimated glomerular filtrat ion rate (GFR) non- AmericanOrdered By: Avery Blanca on 11-25-2021 GFR/1.73 sq M.predicted among non-blacks MDRD (S/P/Bld) [Vol rate/Area] > 60 mL/Min [facility] Folate [Mass/volume] in Seru m or PlasmaOrdered By: Avery Blanca on 11-25-2021 Folate [Mass/Vol] 9.2 ng/mL >5.9 [facility] Comment on above: Folate reference ran ge: >5.9 ng/ml The WHO technical consultation on folate and vitamin b12 deficiencies has determined that folate concentrations less than 4 ng/ml are considered deficient. Folate reference ran ge: >5.9 ng/mlThe WHO technical consultation on folate and vitamin [id number] has determined that folate concentrations lessthan 4 ng/ml are considered deficient. Globulin Calc (S) [Mass/Vol] Ordered By: Avery Blanca on 11-25-2021 Globulin (S) [Mass/Vol] 2.9 g/dL [facility] Hematocrit Auto (Bld) [Volum e fraction]Ordered By: Avery Blanca on 11-25-2021 Hematocrit (Bld) [Volume fraction] 45.2 % 34.0-46.4 [facility] - Chemistry and C hemistry - challengeOrdered By: Avery Blanca on 11-25-2021 Cobalamin (Vitamin B12) [Mass/Vol] 421 pg/mL 180-914 [facility] - Hematology and Cell countsOrdered By: Avery Blanca on 11-25-2021 Nucleated RBC/100 WBC (Bld) [Ratio] 0.6 % 0-0.5 [facility] Lymphocytes Auto (Bld) [#/Vo l]Ordered By: Avery Blanca on 11-25-2021 Lymphocytes (Bld) [#/Vol] 0.8 10*3/uL 1.00-4.8 [facility] Lymphocytes/100 WBC Auto (Bl d)Ordered By: Avery Blanca on 11-25-2021 Lymphocytes/100 WBC (Bld) 14.8 % . [facility] MCH Auto (RBC) [Entitic mass ]Ordered By: Avery Blanca on 11-25-2021 MCH (RBC) [Entitic mass] 32.3 pg 24.7-34.3 [facility] MCHC Auto (RBC) [Mass/Vol]Or dered By: Avery Blanca on 11-25-2021 MCHC (RBC) [Mass/Vol] 34.0 g/dL 32.0-35.0 [facility] MCV Auto (RBC) [Entitic vol] Ordered By: Avery Blanca on 11-25-2021 MCV (RBC) [Entitic vol] 95.1 fL 80-100 [facility] Monocytes Auto (Bld) [#/Vol] Ordered By: Avery Blanca on 11-25-2021 Monocytes (Bld) [#/Vol] 0.2 10*3/uL 0.0-0.8 [facility] Monocytes/100 WBC Auto (Bld) Ordered By: Avery Blanca on 11-25-2021 Monocytes/100 WBC (Bld) 3.4 % . [facility] Neutrophils Auto (Bld) [#/Vo l]Ordered By: Avery Blanca on 11-25-2021 Neutrophils (Bld) [#/Vol] 4.2 10*3/uL 1.8-7.7 [facility] Neutrophils/100 WBC Auto (Bl d)Ordered By: Avery Blanca on 11-25-2021 Neutrophils/100 WBC (Bld) 80.0 % . [facility] No Panel InformationOrdered By: Avery Blanca on 11-25-2021 Estimated GFR () > 60 mL/Min [facility] Comment on above: GFR estimated refere nce range: According to KDOQI guidelines, <60 ml/min/1.73m2 is sufficient to diagnose a patient with chronic kidney disease. Pharmacy Creatinine Clearance (Chem N/A [facility] Platelet mean volume Auto (B ld) [Entitic vol]Ordered By: Avery Blanca on 11-25-2021 Platelet mean volume (Bld) [Entitic vol] 9.1 fL 6.3-10.7 [facility] Platelets Auto (Bld) [#/Vol] Ordered By: Avery Blanca on 11-25-2021 Platelets (Bld) [#/Vol] 210 10*3/uL 150-450 [facility] Protein [Mass/volume] in Ser um or PlasmaOrdered By: Avery Blanca on 11-25-2021 Protein [Mass/Vol] 6.9 g/dL 6.1-7.9 [facility] RBC Auto (Bld) [#/Vol]Ordere d By: Avery Blanca on 11-25-2021 RBC (Bld) [#/Vol] 4.75 10*6/uL 3.60-5.00 [facility] Serum or plasma alanine montes otransferase measurement without P-5'-P (enzymatic activiOrdered By: Avery Blanca on 11-25-2021 ALT No additional P-5'-P [Catalytic activity/Vol] 130 U/L 10-60 [facility] Serum or plasma albumin/glob ulin mass ratioOrdered By: Avery Blanca on 11-25-2021 Albumin/Globulin [Mass ratio] 1.4 {ratio} [facility] Serum or plasma alkaline folrencio sphatase measurement (enzymatic activity/volume)Ordered By: Avery Blanca on 11-25-2021 ALP [Catalytic activity/Vol] 74 U/L 32-92 [facility] Serum or plasma aspartate am inotransferase measurement (enzymatic activity/volume)Ordered By: Avery Blanca on 11-25-2021 AST [Catalytic activity/Vol] 117 U/L 10-42 [facility] Serum or plasma calcium archie urement (mass/volume)Ordered By: Avery Blanca on 11-25-2021 Calcium [Mass/Vol] 9.6 mg/dL 8.2-10.2 [facility] Serum or plasma chloride luz surement (moles/volume)Ordered By: Avery Blanca on 11-25-2021 Chloride [Moles/Vol] 98 mmol/L 95-114 [facility] Serum or plasma glucose archie urement (mass/volume)Ordered By: Avery Blanca on 11-25-2021 Glucose [Mass/Vol] 121 mg/dL 70-100 [facility] Comment on above: ADA recommended refe rence [...] on 11-25-2021 Potassium [Moles/Vol] 3.6 mmol/L 3.5-5.1 [facility] Serum or plasma sodium measu rement (moles/volume)Ordered By: Avery Blanca on 11-25-2021 Sodium [Moles/Vol] 139 mmol/L 136-146 [facility] Serum or plasma total biliru bin measurement (mass/volume)Ordered By: Avery Blanca on 11-25-2021 Bilirubin [Mass/Vol] 0.8 mg/dL 0.3-1.2 [facility] Serum or plasma total carbon dioxide measurement (moles/volume)Ordered By: Avery Blanca on 11-25-2021 CO2 [Moles/Vol] 28.4 mmol/L 22.0-30.0 [facility] Serum or plasma urea nitroge n measurement (mass/volume)Ordered By: Avery Blanca on 11-25-2021 Urea nitrogen [Mass/Vol] 5 mg/dL 9-23 [facility] TSH DL <= 0.005 mIU/L QnOrde red By: Avery Blanca on 11-25-2021 TSH Qn 2.02 m[IU]/L 0.45-5.33 [facility] AMYLASEon 11-20-2021 Amylase [Catalytic activity/Vol] 15 U/L Critically low 25-115 [facility] Comment on above: Performed By: #### L IPA, NGA, CMP #### [facility] [address] [place] [address] Dr. Angela Aguero CBC W MANUAL DIFFon 11-21-19 22 ATYPICAL LYMPH # Normal [facility] Comment on above: Performed By: #### C KRISHAN #### [facility] [address] [address] [address] Angela Aguero ATYPICAL LYMPH % Normal [facility] Comment on above: Performed By: #### C KRISHAN #### [facility] [address] [address] [address] Angela Aguero BAND # 0.2 103/ul Normal 0.0-0.3 [facility] Comment on above: Performed By: #### C BCMAN #### [facility] [address] [place] [address] Dr. Angela Aguero BAND % 3 % Normal 0-5 [facility] Comment on above: Performed By: #### C BCMAN #### [facility] [address] [place] [address] Dr. Angela Aguero BASOM # 0.00 103/ul Normal 0.00-0.10 [facility] Comment on above: Performed By: #### C BCMAN #### [facility] [address] [place] [address] Dr. Angela Aguero BASOM % 0.0 % Critically low 0.2-2.0 [facility] Comment on above: Performed By: #### C BCSOLANGE #### [facility] [address] [place] [address] Dr. Angeal Aguero BLAST # Normal [facility] Comment on above: Performed By: #### C KRISHAN #### [facility] [address] [place] [address] Dr. Angela Aguero BLAST % Normal [facility] Comment on above: Performed By: #### C BCSOLANGE #### [facility] [address] [place] [address] Dr. Angela Aguero CORRECTED WBC Normal 4.0-11.0 [facility] Comment on above: Performed By: #### C BCMAN #### [facility] [address] [place] [address] Dr. Angela Aguero EOS # 0.00 103/ul Normal 0.00-0.70 [facility] Comment on above: Performed By: #### C BCMAN #### [facility] [address] [place] [address] Dr. Angela Aguero EOS% 0.0 % Critically low 0.9-7.0 [facility] Comment on above: Performed By: #### C BCSOLANGE #### [facility] [address] [place] [address] Dr. Angela Aguero HCT 41.2 % Normal 36.0-48.0 [facility] Comment on above: Performed By: #### C KRISHAN #### [facility] [address] [place] [address] Dr. Angela Aguero HGB 14.2 g/dl Normal 12.0-16.0 [facility] Comment on above: Performed By: #### C KRISHAN #### [facility] [address] [place] [address] Dr. Angela Aguero LYMPHM # 0.19 103/ul Critically low 1.20-3.80 [facility] Comment on above: Performed By: #### C KRISHAN #### [facility] [address] [place] [address] Dr. Angela Aguero LYMPHM% 3.0 % Critically low 20.5-60.0 [facility] Comment on above: Performed By: #### C KRISHAN #### [facility] [address] [place] [address] Dr. Angela Aguero MCH 32.4 pg Normal 26.7-34.0 [facility] Comment on above: Performed By: #### C KRISHAN #### [facility] [address] [place] [address] Dr. Angela Aguero MCHC 34.5 g/dl Normal 29.9-35.2 [facility] Comment on above: Performed By: #### C KRISHAN #### [facility] [address] [place] [address] Dr. Angela Aguero MCV 94.1 fL Normal 81.0-99.0 [facility] Comment on above: Performed By: #### C KRISHAN #### [facility] [address] [place] [address] Dr. Angela Aguero METAMYELOCYTE # Normal [facility] Comment on above: Performed By: #### C KRISHAN #### [facility] [address] [place] [address] Dr. Angela Aguero METAMYELOCYTE % Normal [facility] Comment on above: Performed By: #### C KRISHAN #### [facility] [address] [address] [address] Angela Aguero MONOM# 0.32 103/ul Normal 0.30-0.80 [facility] Comment on above: Performed By: #### C KRISHAN #### [facility] [address] [place] [address] Dr. Angela Aguero MONOM% 5.0 % Normal 1.7-12.0 [facility] Comment on above: Performed By: #### C KRISHAN #### [facility] [address] [place] [address] Dr. Angela Aguero MPV 10.4 fL Normal 9.5-13.5 [facility] Comment on above: Performed By: #### C KRISHAN #### [facility] [address] [place] [address] Dr. Angela Aguero MYELOCYTE # Normal [facility] Comment on above: Performed By: #### Jeannette NICKERSON #### [facility] [address] [place] [address] Dr. Angela Aguero MYELOCYTE % Normal [facility] Comment on above: Performed By: #### C KRISHAN #### [facility] [address] [place] [address] Dr. Angela Aguero NRBC Normal [facility] Comment on above: Performed By: #### C KRISHAN #### [facility] [address] [place] [address] Dr. Angela Aguero PLT 204 103/ul Normal 150-450 [facility] Comment on above: Performed By: #### C KRISHAN #### [facility] [address] [place] [address] Dr. Angela Aguero RBC 4.38 106/ul Normal 4.20-5.40 [facility] Comment on above: Performed By: #### C KRISHAN #### [facility] [address] [place] [address] Dr. Angela Aguero RDW 12.4 % Normal 11.0-15.0 [facility] Comment on above: Performed By: #### C KRISHAN #### [facility] [address] [place] [address] Dr. Angela Aguero SEG # 5.70 103/ul Normal 1.40-6.50 [facility] Comment on above: Performed By: #### C KRISHAN #### [facility] [address] [address] [address] Angela Aguero SEG % 89.0 % Critically high 43.0-75.0 [facility] Comment on above: Performed By: #### C KRISHAN #### [facility] [address] [address] [address] Angela Aguero WBC 6.4 103/ul Normal 4.0-11.0 [facility] Comment on above: Performed By: #### C KRISHAN #### [facility] [address] [address] [address] Angela Aguero CRPon 11-20-2021 CRP [Mass/Vol] mg/L Normal <=1.0 [facility] Comment on above: Performed By: #### L NGA SMITH, CMP #### [facility] [address] [place] [address] Dr. Angela Aguero LIPASEon 11-20-2021 Lipase [Catalytic activity/Vol] 28.0 U/L Critically low 73.0-393.0 [facility] Comment on above: Performed By: #### L NGA SMITH, CMP #### [facility] [address] [place] [address] Dr. Angela Aguero PROF 14(COMP METB)on 022 Albumin [Mass/Vol] 3.4 g/dL Normal 3.4-5.0 [facility] Comment on above: Performed By: #### L NGA SMITH, CMP #### [facility] [address] [place] [address] Dr. Angela Aguero Albumin/Globulin [Mass ratio] 1.0 {ratio} Normal [facility] Comment on above: Performed By: #### L NGA SMITH, CMP #### [facility] [address] [place] [address] Dr. Angela Aguero ALP [Catalytic activity/Vol] 63 U/L Normal 46-116 [facility] Comment on above: Performed By: #### L IPA, NGA, CMP #### [facility] [address] [address] [address] Angela Aguero ALT [Catalytic activity/Vol] 55 U/L Normal 14-59 [facility] Comment on above: Performed By: #### L IPA, NGA, CMP #### [facility] [address] [address] [address] Angela Aguero Anion gap [Moles/Vol] 13.3 mmol/L Normal [facility] Comment on above: Performed By: #### L IPA, NGA, CMP #### [facility] [address] [address] [address] Angela Aguero AST [Catalytic activity/Vol] 39 U/L Critically high 15-37 [facility] Comment on above: Performed By: #### L IPA, NGA, CMP #### [facility] [address] [place] [address] Dr. Angela Aguero Bilirubin [Mass/Vol] 1.1 mg/dL Critically high 0.2-1.0 [facility] Comment on above: Performed By: #### L IPA, NGA, CMP #### [facility] [address] [place] [address] Dr. Angela Aguero Calcium [Mass/Vol] 7.9 mg/dL Critically low 8.5-10.1 [facility] Comment on above: Performed By: #### L IPA, NGA, CMP #### [facility] [address] [place] [address] Dr. Angela Aguero Chloride [Moles/Vol] 103 mmol/L Normal 98-107 [facility] Comment on above: Performed By: #### L IPA, NGA, CMP #### [facility] [address] [place] [address] Dr. Angela Aguero CO2 [Moles/Vol] 26.9 mmol/L Normal 21.0-32.0 [facility] Comment on above: Performed By: #### L IPA, NGA, CMP #### [facility] [address] [place] [address] Dr. Angela Aguero Creatinine [Mass/Vol] 0.81 mg/dL Normal 0.55-1.02 [facility] Comment on above: Performed By: #### L GNA SMITH, CMP #### [facility] [address] [place] [address] Dr. Angela Aguero EGFR-AF [place]LANDER >60 Normal >=60 [facility] Comment on above: Performed By: #### L NGA SMITH, CMP #### [facility] [address] [address] [address] Angela Aguero EGFR-NON AF [place]ER >60 Normal >=60 [facility] Comment on above: Performed By: #### L NGA SMITH, CMP #### [facility] [address] [place] [address] Dr. Angela Aguero Globulin (S) [Mass/Vol] 3.3 g/dL Normal [facility] Comment on above: Performed By: #### L NGA SMITH, CMP #### [facility] [address] [place] [address] Dr. Angela Aguero Glucose [Mass/Vol] 185 mg/dL Critically high 74-106 [facility] Comment on above: Performed By: #### L NGA SMITH, CMP #### [facility] [address] [place] [address] Dr. Angela Aguero Potassium [Moles/Vol] 3.2 mmol/L Critically low 3.5-5.1 [facility] Comment on above: Performed By: #### L NGA SMITH, CMP #### [facility] [address] [place] [address] Dr. Angela Aguero Protein [Mass/Vol] 6.7 g/dL Normal 6.4-8.[address] [facility] Comment on above: Performed By: #### L NGA SMITH, CMP #### [facility] [address] [place] [address] Dr. Angela Aguero Sodium [Moles/Vol] 140 mmol/L Normal 136-145 [facility] Comment on above: Performed By: #### L NGA SMITH, CMP #### [facility] [address] [place] [address] Dr. Angela Aguero Urea nitrogen [Mass/Vol] 8.0 mg/dL Normal 7.0-18.0 [facility] Comment on above: Performed By: #### L IPA, NGA, CMP #### [facility] [address] [place] [address] Dr. Angela Aguero Urea nitrogen/Creatinine [Mass ratio] 9.9 mg/mg Normal [facility] Comment on above: Performed By: #### L IPA, NGA, CMP #### [facility] [address] [place] [address] Dr. Angela Aguero SED RATE WESTERGRENon 2021 SED RATE 3 mm/hr Normal <=20 [facility] Comment on above: Performed By: #### S EDR #### [facility] [address] [place] [address] Dr. Angela Aguero AMYLASEon 11-19-2021 Amylase [Catalytic activity/Vol] 17 U/L Critically low 25-115 [facility] Comment on above: Performed By: #### C MP, NGA, CRP, LIPA #### [facility] [address] [place] [address] Dr. Angela Aguero CBC AUTO DIFFon 11-19-2021 BASO # 0.0 103/ul Normal 0.0-0.1 [facility] Comment on above: Performed By: #### L IPA, NGA, CMP #### [facility] [address] [place] [address] Dr. Angela Aguero Basophils/100 WBC (Bld) 0.6 % Normal 0.2-2.0 [facility] Comment on above: Performed By: #### L IPA, NGA, CMP #### [facility] [address] [place] [address] Dr. Angela Aguero EO # 0.0 103/ul Normal 0.0-0.7 [facility] Comment on above: Performed By: #### L IPA, NGA, CMP #### [facility] [address] [place] [address] Dr. Angela Aguero Eosinophils/100 WBC (Bld) 0.0 % Critically low 0.9-7.0 [facility] Comment on above: Performed By: #### L NGA SMITH, CMP #### [facility] [address] [place] [address] Dr. Angela Aguero Erythrocyte distribution width (RBC) [Ratio] 12.9 % Normal 11.0-15.0 [facility] Comment on above: Performed By: #### L NGA SMITH, CMP #### [facility] [address] [place] [address] Dr. Angela Aguero Hematocrit (Bld) [Volume fraction] 43.3 % Normal 36.0-48.0 [facility] Comment on above: Performed By: #### L NGA SMITH, CMP #### [facility] [address] [place] [address] Dr. Angela Aguero Hemoglobin (Bld) [Mass/Vol] 14.7 g/dL Normal 12.0-16.0 [facility] Comment on above: Performed By: #### L NGA SMITH, CMP #### [facility] [address] [place] [address] Dr. Angela Aguero IG # 0.02 10e3/ul Normal 0.00-0.03 [facility] Comment on above: Performed By: #### L NGA SMITH, CMP #### [facility] [address] [place] [address] Dr. Angela Aguero IG % 0.6 % Critically high 0.0-0.5 [facility] Comment on above: Performed By: #### L NGA SMITH, CMP #### [facility] [address] [place] [address] Dr. Angela Aguero LYMPH # 0.3 103/ul Critically low 1.2-3.8 [facility] Comment on above: Performed By: #### L NGA SMITH, CMP #### [facility] [address] [place] [address] Dr. Angela Aguero Lymphocytes/100 WBC (Bld) 8.9 % Critically low 20.5-60.0 [facility] Comment on above: Performed By: #### L NGA SMITH, CMP #### [facility] [address] [place] [address] Dr. Angela Aguero MANUAL DIFF REQ NO Normal [facility] Comment on above: Performed By: #### L NGA SMITH, CMP #### [facility] [address] [place] [address] Dr. Angela Aguero MCH (RBC) [Entitic mass] 32.5 pg Normal 26.7-34.0 [facility] Comment on above: Performed By: #### L NGA SMITH, CMP #### [facility] [address] [place] [address] Dr. Angela Aguero MCHC (RBC) [Mass/Vol] 33.9 g/dL Normal 29.9-35.2 [facility] Comment on above: Performed By: #### L NGA SMITH, CMP #### [facility] [address] [place] [address] Dr. Angela Aguero MCV (RBC) [Entitic vol] 95.6 fL Normal 81.0-99.0 [facility] Comment on above: Performed By: #### L NGA SMITH, CMP #### [facility] [address] [place] [address] Dr. Angela Aguero MONO # 0.0 103/ul Critically low 0.3-0.8 [facility] Comment on above: Performed By: #### L NGA SMITH, CMP #### [facility] [address] [place] [address] Dr. Angela Aguero Monocytes/100 WBC (Bld) 0.6 % Critically low 1.7-12.0 [facility] Comment on above: Performed By: #### L NGA SMITH, CMP #### [facility] [address] [place] [address] Dr. Angela Aguero NEUT # 3.1 103/ul Normal 1.4-6.5 [facility] Comment on above: Performed By: #### L NGA SMITH, CMP #### [facility] [address] [place] [address] Dr. Angela Aguero Neutrophils/100 WBC (Bld) 89.3 % Critically high 43.0-75.0 [facility] Comment on above: Performed By: #### L IPA, NGA, CMP #### [facility] [address] [address] [address] Angela Aguero Platelet mean volume (Bld) [Entitic vol] 10.6 fL Normal 9.5-13.5 [facility] Comment on above: Performed By: #### L IPA, NGA, CMP #### [facility] [address] [address] [address] Angela Aguero PLT 212 103/ul Normal 150-450 [facility] Comment on above: Performed By: #### L IPA, NGA, CMP #### [facility] [address] [address] [address] nAgela Aguero RBC 4.53 106/ul Normal 4.20-5.40 [facility] Comment on above: Performed By: #### L IPA, NGA, CMP #### [facility] [address] [place] [address] Dr. Angela Aguero WBC 3.5 103/ul Critically low 4.0-11.0 [facility] Comment on above: Performed By: #### L IPA, NGA, CMP #### [facility] [address] [place] [address] Dr. Angela Aguero CRPon 11-19-2021 CRP [Mass/Vol] mg/L Normal <=1.0 [facility] Comment on above: Performed By: #### C MP, NGA, CRP, LIPA #### [facility] [address] [address] [address] Angela Aguero ER URINE PROFILEon 2 Bilirubin Ql (U) Negative Normal NEGATIVE [facility] Comment on above: Performed By: #### L IPA, NGA, CMP #### [facility] [address] [place] [address] Dr. Angela Aguero Clarity (U) CLEAR Normal CLEAR [facility] Comment on above: Performed By: #### L IPA, NGA, CMP #### [facility] [address] [place] [address] Dr. Angela Aguero Color (U) DK. ORANGE Abnormal YELLOW [facility] Comment on above: Performed By: #### L IPA NGA, CMP #### [facility] [address] [address] [address] Angela CARRASCO A micrscopic examina tion will be performed if indicated. Normal [facility] Comment on above: Performed By: #### L IPA NGA, CMP #### [facility] [address] [address] [address] Angela Aguero Glucose Ql (U) Negative Normal NEGATIVE [facility] Comment on above: Performed By: #### L IPA NGA, CMP #### [facility] [address] [address] [address] Angela Aguero Hemoglobin Ql (U) Negative Normal NEGATIVE [facility] Comment on above: Performed By: #### L IPA NGA, CMP #### [facility] [address] [place] [address] Dr. Angela Aguero Ketones Ql (U) 40 mg/dl Abnormal NEGATIVE [facility] Comment on above: Performed By: #### L IPA NGA, CMP #### [facility] [address] [place] [address] Dr. Angela Aguero LEUKOCYTES Negative Normal NEGATIVE [facility] Comment on above: Performed By: #### L IPA NGA, CMP #### [facility] [address] [place] [address] Dr. Angela Aguero Nitrite Ql (U) Negative Normal NEGATIVE [facility] Comment on above: Performed By: #### L IPA NGA, CMP #### [facility] [address] [place] [address] Dr. Angela Aguero pH (U) 5.5 [pH] Normal 5-9 [facility] Comment on above: Performed By: #### L IPA NGA, CMP #### [facility] [address] [place] [address] Dr. Angela Aguero Protein (U) [Mass/Vol] 30 mg/dL Abnormal NEGAT DARIO/ TRACE [facility] Comment on above: Performed By: #### L IPA NGA, CMP #### [facility] [address] [place] [address] Dr. Angela Aguero SPEC GRAVITY >=1.030 Abnormal 1.005-<=1. 025 [facility] Comment on above: Performed By: #### L IPANGA, CMP #### [facility] [address] [place] [address] Dr. Angela Aguero UR MICRO IND INDICATED Normal [facility] Comment on above: Performed By: #### L IPA NGA, CMP #### [facility] [address] [place] [address] Dr. Angela Aguero Urobilinogen Qn (U) 1.0 {Concetta'U}/dL Normal 0.2 - 1. 0 [facility] Comment on above: Performed By: #### L IPA NGA, CMP #### [facility] [address] [place] [address] Dr. Angela Aguero LIPASEon 11-19-2021 Lipase [Catalytic activity/Vol] 22.0 U/L Critically low 73.0-393.0 [facility] Comment on above: Performed By: #### C MP, NGA, CRP, LIPA #### [facility] [address] [place] [address] Dr. Angela Aguero PROF 14(COMP METB)on 022 Albumin [Mass/Vol] 3.7 g/dL Normal 3.4-5.0 [facility] Comment on above: Performed By: #### C MP, NGA, CRP, LIPA #### [facility] [address] [place] [address] Dr. Angela Agureo Albumin/Globulin [Mass ratio] 1.0 {ratio} Normal [facility] Comment on above: Performed By: #### C MP, NGA, CRP, LIPA #### [facility] [address] [place] [address] Dr. Angela Aguero ALP [Catalytic activity/Vol] 73 U/L Normal 46-116 [facility] Comment on above: Performed By: #### C MP, NGA, CRP, LIPA #### [facility] [address] [place] [address] Dr. Angela Aguero ALT [Catalytic activity/Vol] 78 U/L Critically high 14-59 [facility] Comment on above: Performed By: #### C MP, NGA, CRP, LIPA #### [facility] [address] [address] [address] Angela Aguero Anion gap [Moles/Vol] 16.5 mmol/L Normal [facility] Comment on above: Performed By: #### C MP, NGA, CRP, LIPA #### [facility] [address] [address] [address] Angela Aguero AST [Catalytic activity/Vol] 62 U/L Critically high 15-37 [facility] Comment on above: Performed By: #### C MP, NGA, CRP, LIPA #### [facility] [address] [place] [address] Dr. Angela Aguero Bilirubin [Mass/Vol] 1.3 mg/dL Critically high 0.2-1.0 [facility] Comment on above: Performed By: #### C MP, NGA, CRP, LIPA #### [facility] [address] [place] [address] Dr. Angela Aguero Calcium [Mass/Vol] 8.2 mg/dL Critically low 8.5-10.1 [facility] Comment on above: Performed By: #### C MP, NGA, CRP, LIPA #### [facility] [address] [place] [address] Dr. Angela Aguero Chloride [Moles/Vol] 101 mmol/L Normal 98-107 [facility] Comment on above: Performed By: #### C MP, NGA, CRP, LIPA #### [facility] [address] [place] [address] Dr. Angela Aguero CO2 [Moles/Vol] 23.5 mmol/L Normal 21.0-32.0 [facility] Comment on above: Performed By: #### C MP, NGA, CRP, LIPA #### [facility] [address] [place] [address] Dr. Angela Aguero Creatinine [Mass/Vol] 0.81 mg/dL Normal 0.55-1.02 [facility] Comment on above: Performed By: #### C MP, NGA, CRP, LIPA #### [facility] [address] [address] [address] Angeal Aguero EGFR-AF [place]ER >60 Normal >=60 [facility] Comment on above: Performed By: #### C MP, NGA, CRP, LIPA #### [facility] [address] [address] [address] Angela Aguero EGFR-NON AF [place]ER >60 Normal >=60 [facility] Comment on above: Performed By: #### C MP, NGA, CRP, LIPA #### [facility] [address] [address] [address] Angela Aguero Globulin (S) [Mass/Vol] 3.7 g/dL Normal [facility] Comment on above: Performed By: #### C MP, NGA, CRP, LIPA #### [facility] [address] [address] [address] Angela Aguero Glucose [Mass/Vol] 190 mg/dL Critically high 74-106 [facility] Comment on above: Performed By: #### C MP, NGA, CRP, LIPA #### [facility] [address] [address] [address] Angela Aguero Potassium [Moles/Vol] 4.0 mmol/L Normal 3.5-5.1 [facility] Comment on above: Performed By: #### C MP, NGA, CRP, LIPA #### [facility] [address] [address] [address] Angela Aguero Protein [Mass/Vol] 7.4 g/dL Normal 6.4-8.[address] [facility] Comment on above: Performed By: #### C MP, NGA, CRP, LIPA #### [facility] [address] [place] [address] Dr. Angela Aguero Sodium [Moles/Vol] 137 mmol/L Normal 136-145 [facility] Comment on above: Performed By: #### C MP, NGA, CRP, LIPA #### [facility] [address] [place] [address] Dr. Angela Aguero Urea nitrogen [Mass/Vol] 5.0 mg/dL Critically low 7.0-18.0 [facility] Comment on above: Performed By: #### C MP, NGA, CRP, LIPA #### [facility] [address] [place] [address] Dr. Angela Aguero Urea nitrogen/Creatinine [Mass ratio] 6.2 mg/mg Normal [facility] Comment on above: Performed By: #### C MP, NGA, CRP, LIPA #### [facility] [address] [place] [address] Dr. Angela Aguero SED RATE WESTERGRENon 2021 SED RATE 10 mm/hr Normal <=20 [facility] Comment on above: Performed By: #### L NGA SMITH, CMP #### [facility] [address] [place] [address] Dr. Angela Aguero URINE MICROSCOPIC ONLYon BACTERIA TRACE Abnormal NONE SEEN [facility] Comment on above: Performed By: #### L NGA SMITH, CMP #### [facility] [address] [place] [address] Dr. Angela Aguero Bacteria identified Cx Nom (U) NOT INDICATED Normal [facility] Comment on above: Performed By: #### L NGA SMITH, CMP #### [facility] [address] [place] [address] Dr. Angela Aguero CAST SEEN Abnormal NONE SEEN [facility] Comment on above: Performed By: #### L LUIS NGA, CMP #### [facility] [address] [place] [address] Dr. Angela Aguero Crystals LM Nom (Urine sed) NONE SEEN Normal NONE SEEN [facility] Comment on above: Performed By: #### L NGA SMITH, CMP #### [facility] [address] [place] [address] Dr. Angela Aguero Epithelial cells LM Ql (Urine sed) RARE Normal NONE SEEN /RARE [facility] Comment on above: Performed By: #### L IPA NGA, CMP #### [facility] [address] [place] [address] Dr. Angela Aguero FINE GRANULAR CAST RARE Normal [facility] Comment on above: Performed By: #### L IPA, NGA, CMP #### [facility] [address] [address] [address] Angela Aguero HYALINE CAST RARE Normal [facility] Comment on above: Performed By: #### L IPA, NGA, CMP #### [facility] [address] [address] [address] Angela Aguero MUCOUS TRACE Abnormal NONE SEEN [facility] Comment on above: Performed By: #### L IPA, NGA, CMP #### [facility] [address] [address] [address] Angela Aguero RBC NONE SEEN Abnormal 0-2 [facility] Comment on above: Performed By: #### L IPA NGA, CMP #### [facility] [address] [place] [address] Dr. Angela Aguero WBC NONE SEEN Normal NONE SEEN [facility] Comment on above: Performed By: #### L IPA NGA, CMP #### [facility] [address] [place] [address] Dr. Angela Aguero AMYLASEon 11-18-2021 Amylase [Catalytic activity/Vol] 20 U/L Critically low 25-115 [facility] Comment on above: Performed By: #### L IPA NGA, CMP #### [facility] [address] [place] [address] Dr. Angela Aguero BILIRUBIN CONJUGATED (DIRECT )on 11-18-2021 BILI, CONJUGATED 0.4 mg/dL Critically high 0.0-0.2 [facility] Comment on above: Performed By: #### L IPA NGA, CMP #### [facility] [address] [address] [address] nAgela Aguero CBC AUTO DIFFon 11-18-2021 BASO # 0.1 103/ul Normal 0.0-0.1 [facility] Comment on above: Performed By: #### L IPA NGA, CMP #### [facility] [address] [address] [address] Angela Aguero Basophils/100 WBC (Bld) 2.4 % Critically high 0.2-2.0 [facility] Comment on above: Performed By: #### L NGA SMITH, CMP #### [facility] [address] [place] [address] Dr. Angela Aguero EO # 0.0 103/ul Normal 0.0-0.7 [facility] Comment on above: Performed By: #### L NGA SMITH, CMP #### [facility] [address] [place] [address] Dr. Angela Aguero Eosinophils/100 WBC (Bld) 0.2 % Critically low 0.9-7.0 [facility] Comment on above: Performed By: #### L NGA SMITH CMP #### [facility] [address] [place] [address] Dr. Angela Aguero Erythrocyte distribution width (RBC) [Ratio] 12.8 % Normal 11.0-15.0 [facility] Comment on above: Performed By: #### L NGA SMITH CMP #### [facility] [address] [place] [address] Dr. Angela Aguero Hematocrit (Bld) [Volume fraction] 47.4 % Normal 36.0-48.0 [facility] Comment on above: Performed By: #### L NGA SMITH CMP #### [facility] [address] [place] [address] Dr. Angela Aguero Hemoglobin (Bld) [Mass/Vol] 16.6 g/dL Critically high 12.0-16.0 [facility] Comment on above: Performed By: #### L NGA SMITH, CMP #### [facility] [address] [place] [address] Dr. Angela Aguero IG # 0.02 10e3/ul Normal 0.00-0.03 [facility] Comment on above: Performed By: #### L NGA SMITH, CMP #### [facility] [address] [place] [address] Dr. Angela Aguero IG % 0.4 % Normal 0.0-0.5 [facility] Comment on above: Performed By: #### L NGA SMITH, CMP #### [facility] [address] [address] [address] Angela Aguero LYMPH # 0.9 103/ul Critically low 1.2-3.8 [facility] Comment on above: Performed By: #### L NGA SMITH, CMP #### [facility] [address] [address] [address] Angela Aguero Lymphocytes/100 WBC (Bld) 17.2 % Critically low 20.5-60.0 [facility] Comment on above: Performed By: #### L NGA SMITH, CMP #### [facility] [address] [address] [address] Angela Aguero MANUAL DIFF REQ NO Normal [facility] Comment on above: Performed By: #### L NGA SMITH, CMP #### [facility] [address] [place] [address] Dr. Angela Aguero MCH (RBC) [Entitic mass] 32.4 pg Normal 26.7-34.0 [facility] Comment on above: Performed By: #### L NGA SMITH, CMP #### [facility] [address] [place] [address] Dr. Angela Aguero MCHC (RBC) [Mass/Vol] 35.0 g/dL Normal 29.9-35.2 [facility] Comment on above: Performed By: #### L NGA SMITH, CMP #### [facility] [address] [place] [address] Dr. Angela Aguero MCV (RBC) [Entitic vol] 92.4 fL Normal 81.0-99.0 [facility] Comment on above: Performed By: #### L NGA SMITH, CMP #### [facility] [address] [place] [address] Dr. Angela Aguero MONO # 0.6 103/ul Normal 0.3-0.8 [facility] Comment on above: Performed By: #### L NGA SMITH, CMP #### [facility] [address] [place] [address] Dr. Angela Aguero Monocytes/100 WBC (Bld) 10.7 % Normal 1.7-12.0 [facility] Comment on above: Performed By: #### L NGA SMITH, CMP #### [facility] [address] [place] [address] Dr. Angela Aguero NEUT # 3.7 103/ul Normal 1.4-6.5 [facility] Comment on above: Performed By: #### L NGA SMITH, CMP #### [facility] [address] [place] [address] Dr. Angela Aguero Neutrophils/100 WBC (Bld) 69.1 % Normal 43.0-75.0 [facility] Comment on above: Performed By: #### L NGA SMITH, CMP #### [facility] [address] [place] [address] Dr. Angela Aguero Platelet mean volume (Bld) [Entitic vol] 10.1 fL Normal 9.5-13.5 [facility] Comment on above: Performed By: #### L NGA SMITH, CMP #### [facility] [address] [place] [address] Dr. Angela Aguero PLT 279 103/ul Normal 150-450 [facility] Comment on above: Performed By: #### L NGA SMITH, CMP #### [facility] [address] [place] [address] Dr. Angela Aguero RBC 5.13 106/ul Normal 4.20-5.40 [facility] Comment on above: Performed By: #### L NGA SMITH, CMP #### [facility] [address] [place] [address] Dr. Angela Aguero WBC 5.4 103/ul Normal 4.0-11.0 [facility] Comment on above: Performed By: #### L NGA SMITH, CMP #### [facility] [address] [place] [address] Dr. Angela Aguero Covid-19 PCR ([facility])on 11-07 SARS-CoV-2 (COVID-19) RNA GOPAL+probe Ql (Unsp spec) Not detected Normal NOT DETECTED [facility] Comment on above: Result Comment: When diagnostic [...] for this test is supported by the [place] of [employer] and Human Service's declaration that [...] By: #### L NGA SMITH, CMP #### [facility] [address] [place] [address] Dr. Angela Aguero LIPASEon 11-18-2021 Lipase [Catalytic activity/Vol] 25.0 U/L Critically low 73.0-393.0 [facility] Comment on above: Performed By: #### L NGA SMITH, CMP #### [facility] [address] [place] [address] Dr. Angela Aguero PROF 14(COMP METB)on 022 Albumin [Mass/Vol] 4.4 g/dL Normal 3.4-5.0 [facility] Comment on above: Performed By: #### L NGA SMITH, CMP #### [facility] [address] [place] [address] Dr. Angela Aguero Albumin/Globulin [Mass ratio] 1.1 {ratio} Normal [facility] Comment on above: Performed By: #### L NGA SMITH, CMP #### [facility] [address] [place] [address] Dr. Angela Aguero ALP [Catalytic activity/Vol] 83 U/L Normal 46-116 [facility] Comment on above: Performed By: #### L NGA SMITH, CMP #### [facility] [address] [place] [address] Dr. Angela Aguero ALT [Catalytic activity/Vol] 95 U/L Critically high 14-59 [facility] Comment on above: Performed By: #### L NGA SMITH, CMP #### [facility] [address] [place] [address] Dr. Angela Aguero Anion gap [Moles/Vol] 20.2 mmol/L Normal Th [facility] Comment on above: Performed By: #### L NGA SMITH, CMP #### [facility] [address] [place] [address] Dr. Angela Aguero AST [Catalytic activity/Vol] 84 U/L Critically high 15-37 [facility] Comment on above: Performed By: #### L NGA SMITH, CMP #### [facility] [address] [place] [address] Dr. Angela Aguero Bilirubin [Mass/Vol] 1.1 mg/dL Critically high 0.2-1.0 [facility] Comment on above: Performed By: #### L NGA SMITH, CMP #### [facility] [address] [place] [address] Dr. Angela Aguero Calcium [Mass/Vol] 8.9 mg/dL Normal 8.5-10.1 [facility] Comment on above: Performed By: #### L NGA SMITH, CMP #### [facility] [address] [place] [address] Dr. Angela Aguero Chloride [Moles/Vol] 99 mmol/L Normal 98-107 [facility] Comment on above: Performed By: #### L NGA SMITH, CMP #### [facility] [address] [place] [address] Dr. Angela Aguero CO2 [Moles/Vol] 23.3 mmol/L Normal 21.0-32.0 [facility] Comment on above: Performed By: #### L NGA SMITH, CMP #### [facility] [address] [place] [address] Dr. Angela Aguero Creatinine [Mass/Vol] 0.97 mg/dL Normal 0.55-1.02 [facility] Comment on above: Performed By: #### L NGA SMITH, CMP #### [facility] [address] [address] [address] Angela Aguero EGFR-AF [place] >60 Normal >=60 [facility] Comment on above: Performed By: #### L NGA SMITH, CMP #### [facility] [address] [address] [address] Angela Aguero EGFR-NON AF [place] >60 Normal >=60 [facility] Comment on above: Performed By: #### L NGA SMITH, CMP #### [facility] [address] [address] [address] Angela Aguero Globulin (S) [Mass/Vol] 3.9 g/dL Normal [facility] Comment on above: Performed By: #### L NGA SMITH, CMP #### [facility] [address] [address] [address] Angela Aguero Glucose [Mass/Vol] 170 mg/dL Critically high 74-106 [facility] Comment on above: Performed By: #### L NGA SMITH, CMP #### [facility] [address] [place] [address] Dr. Angela Aguero Potassium [Moles/Vol] 3.5 mmol/L Normal 3.5-5.1 [facility] Comment on above: Performed By: #### L NGA SMITH, CMP #### [facility] [address] [place] [address] Dr. Angela Aguero Protein [Mass/Vol] 8.3 g/dL Critically high 6.4-8.2 [facility] Comment on above: Performed By: #### L NGA SMITH, CMP #### [facility] [address] [place] [address] Dr. Angela Aguero Sodium [Moles/Vol] 139 mmol/L Normal 136-145 [facility] Comment on above: Performed By: #### L NGA SMITH, CMP #### [facility] [address] [place] [address] Dr. Angela Aguero Urea nitrogen [Mass/Vol] 4.0 mg/dL Critically low 7.0-18.0 [facility] Comment on above: Performed By: #### L NGA SMITH, CMP #### [facility] [address] [address] [address] Angela Aguero Urea nitrogen/Creatinine [Mass ratio] 4.1 mg/mg Normal [facility] Comment on above: Performed By: #### L NGA SMITH, CMP #### [facility] [address] [address] [address] ABD/PELV W CONon [...] steatosis. 3. Small hiatal hernia. Normal [facility] ER URINE PROFILEon 2 Bilirubin Ql (U) Negative Normal NEGATIVE [facility] Comment on above: Performed By: #### L NGA SMITH, CMP #### [facility] [address] [address] [address] Angela Aguero Clarity (U) CLEAR Normal CLEAR [facility] Comment on above: Performed By: #### L NGA SMITH, CMP #### [facility] [address] [address] [address] Angela Aguero Color (U) LT. YELLOW Normal YELLOW [facility] Comment on above: Performed By: #### L IPA NGA, CMP #### [facility] [address] [address] [address] Angela CARRASCO A micrscopic examina tion will be performed if indicated. Normal [facility] Comment on above: Performed By: #### L IPA, NGA, CMP #### [facility] [address] [address] [address] Angela Aguero Glucose Ql (U) Negative Normal NEGATIVE [facility] Comment on above: Performed By: #### L IPA, NGA, CMP #### [facility] [address] [address] [address] Angela Aguero Hemoglobin Ql (U) Negative Normal NEGATIVE [facility] Comment on above: Performed By: #### L IPA NGA, CMP #### [facility] [address] [place] [address] Dr. Angela Aguero Ketones Ql (U) Negative Normal NEGATIVE [facility] Comment on above: Performed By: #### L IPA NGA, CMP #### [facility] [address] [place] [address] Dr. Angela Aguero LEUKOCYTES Negative Normal NEGATIVE [facility] Comment on above: Performed By: #### L IPA NGA, CMP #### [facility] [address] [place] [address] Dr. Angela Aguero Nitrite Ql (U) Negative Normal NEGATIVE [facility] Comment on above: Performed By: #### L IPA NGA, CMP #### [facility] [address] [address] [address] Angela Aguero pH (U) 6.0 [pH] Normal 5-9 [facility] Comment on above: Performed By: #### L IPA NGA, CMP #### [facility] [address] [place] [address] Dr. Angela Aguero SPEC GRAVITY <=1.005 Abnormal 1.005-<=1. 025 [facility] Comment on above: Performed By: #### L IPA NGA, CMP #### [facility] [address] [address] [address] Angela Aguero UA PROTEIN Negative Normal NEGATIVE/ TRACE [facility] Comment on above: Performed By: #### L NGA SMITH, CMP #### [facility] [address] [place] [address] Dr. Angela Aguero UR MICRO IND NOT INDICATED Normal [facility] Comment on above: Performed By: #### L NGA SMITH, CMP #### [facility] [address] [place] [address] Dr. Angela Aguero Urobilinogen Qn (U) 0.2 {Concetta'U}/dL Normal 0.2 - 1. 0 [facility] Comment on above: Performed By: #### L NGA SMITH, CMP #### [facility] [address] [place] [address] Dr. Angela Aguero LACTATE/LACTIC ACIDon 2021 Lactate [Moles/Vol] 1.1 mmol/L Normal 0.4-1.9 [facility] Comment on above: Performed By: #### L NGA SMITH, CMP #### [facility] [address] [place] [address] Dr. Angela Aguero CBC AUTO DIFFon 11-10-2021 BASO # 0.1 103/ul Normal 0.0-0.1 [facility] Comment on above: Performed By: #### L NGA SMITH, CMP #### [facility] [address] [place] [address] Dr. Angela Aguero Basophils/100 WBC (Bld) 1.7 % Normal 0.2-2.0 [facility] Comment on above: Performed By: #### L NGA SMITH, CMP #### [facility] [address] [place] [address] Dr. Angela Aguero EO # 0.1 103/ul Normal 0.0-0.7 [facility] Comment on above: Performed By: #### L LUIS NGA, CMP #### [facility] [address] [place] [address] Dr. Angela Aguero Eosinophils/100 WBC (Bld) 1.0 % Normal 0.9-7.0 [facility] Comment on above: Performed By: #### L NGA SMITH, CMP #### [facility] [address] [place] [address] Dr. Angela Aguero Erythrocyte distribution width (RBC) [Ratio] 13.1 % Normal 11.0-15.0 [facility] Comment on above: Performed By: #### L NGA SMITH, CMP #### [facility] [address] [place] [address] Dr. Angela Aguero Hematocrit (Bld) [Volume fraction] 46.8 % Normal 36.0-48.0 [facility] Comment on above: Performed By: #### L NGA SMITH, CMP #### [facility] [address] [place] [address] Dr. Angela Aguero Hemoglobin (Bld) [Mass/Vol] 16.3 g/dL Critically high 12.0-16.0 [facility] Comment on above: Performed By: #### L NGA SMITH, CMP #### [facility] [address] [place] [address] Dr. Angela Aguero IG # 0.02 10e3/ul Normal 0.00-0.03 [facility] Comment on above: Performed By: #### L NGA SMITH, CMP #### [facility] [address] [place] [address] Dr. Angela Aguero IG % 0.3 % Normal 0.0-0.5 [facility] Comment on above: Performed By: #### L NGA SMITH, CMP #### [facility] [address] [place] [address] Dr. Angela Aguero LYMPH # 1.3 103/ul Normal 1.2-3.8 [facility] Comment on above: Performed By: #### L NGA SMITH, CMP #### [facility] [address] [place] [address] Dr. Angela Aguero Lymphocytes/100 WBC (Bld) 20.9 % Normal 20.5-60.0 [facility] Comment on above: Performed By: #### L NGA SMITH, CMP #### [facility] [address] [place] [address] Dr. Angela Aguero MANUAL DIFF REQ NO Normal [facility] Comment on above: Performed By: #### L NGA SMITH, CMP #### [facility] [address] [place] [address] Dr. Angela Aguero MCH (RBC) [Entitic mass] 32.2 pg Normal 26.7-34.0 [facility] Comment on above: Performed By: #### L NGA SMITH, CMP #### [facility] [address] [place] [address] Dr. Angela Aguero MCHC (RBC) [Mass/Vol] 34.8 g/dL Normal 29.9-35.2 [facility] Comment on above: Performed By: #### L NGA SMITH, CMP #### [facility] [address] [place] [address] Dr. Angela Aguero MCV (RBC) [Entitic vol] 92.5 fL Normal 81.0-99.0 [facility] Comment on above: Performed By: #### L NGA SMITH, CMP #### [facility] [address] [place] [address] Dr. Angela Aguero MONO # 0.6 103/ul Normal 0.3-0.8 [facility] Comment on above: Performed By: #### L NGA SMITH, CMP #### [facility] [address] [place] [address] Dr. Angela Aguero Monocytes/100 WBC (Bld) 10.7 % Normal 1.7-12.0 [facility] Comment on above: Performed By: #### L NGA SMITH, CMP #### [facility] [address] [place] [address] Dr. Angela Aguero NEUT # 3.9 103/ul Normal 1.4-6.5 [facility] Comment on above: Performed By: #### L NGA SMITH, CMP #### [facility] [address] [place] [address] Dr. Angela Aguero Neutrophils/100 WBC (Bld) 65.4 % Normal 43.0-75.0 [facility] Comment on above: Performed By: #### L NGA SMITH, CMP #### [facility] [address] [address] [address] Angela Aguero Platelet mean volume (Bld) [Entitic vol] 9.6 fL Normal 9.5-13.5 [facility] Comment on above: Performed By: #### L NGA SMITH, CMP #### [facility] [address] [address] [address] Angela gAuero PLT 224 103/ul Normal 150-450 [facility] Comment on above: Performed By: #### L NGA SMITH, CMP #### [facility] [address] [address] [address] Angela Aguero RBC 5.06 106/ul Normal 4.20-5.40 [facility] Comment on above: Performed By: #### L NGA SMITH, CMP #### [facility] [address] [place] [address] Dr. Angela Aguero WBC 6.0 103/ul Normal 4.0-11.0 [facility] Comment on above: Performed By: #### L NGA SMITH, CMP #### [facility] [address] [place] [address] Dr. Angela Aguero LACTATE/LACTIC ACIDon 2021 Lactate [Moles/Vol] 3.7 mmol/L Critically high 0.4-1.9 [facility] Comment on above: Performed By: #### L NGA SMITH, CMP #### [facility] [address] [place] [address] Dr. Angela Aguero LIPASEon 11-10-2021 Lipase [Catalytic activity/Vol] 33.0 U/L Critically low 73.0-393.0 [facility] Comment on above: Performed By: #### L NGA SMITH, CMP #### [facility] [address] [place] [address] Dr. Angela Aguero PREG HCG QUALon 11-10-2021 , QUAL Negative Normal NEGATIVE [facility] Comment on above: Performed By: #### P REG #### [facility] [address] [place] [address] Dr. Angela Aguero PROF 14(COMP METB)on 022 Albumin [Mass/Vol] 4.5 g/dL Normal 3.4-5.0 [facility] Comment on above: Performed By: #### L NGA SMITH, CMP #### [facility] [address] [address] [address] Angela Aguero Albumin/Globulin [Mass ratio] 1.1 {ratio} Normal [facility] Comment on above: Performed By: #### L NGA SMITH, CMP #### [facility] [address] [address] [address] Angela Aguero ALP [Catalytic activity/Vol] 112 U/L Normal 46-116 [facility] Comment on above: Performed By: #### L NGA SMITH, CMP #### [facility] [address] [address] [address] Angela Aguero ALT [Catalytic activity/Vol] 154 U/L Critically high 14-59 [facility] Comment on above: Performed By: #### L NGA SMITH, CMP #### [facility] [address] [address] [address] Angela Aguero Anion gap [Moles/Vol] 17.8 mmol/L Normal [facility] Comment on above: Performed By: #### L NGA SMITH, CMP #### [facility] [address] [place] [address] Dr. Angela Aguero AST [Catalytic activity/Vol] 112 U/L Critically high 15-37 [facility] Comment on above: Performed By: #### L NGA SMITH, CMP #### [facility] [address] [address] [address] Angela Aguero Bilirubin [Mass/Vol] 0.7 mg/dL Normal 0.2-1.0 [facility] Comment on above: Performed By: #### L NGA SMITH, CMP #### [facility] [address] [address] [address] Angela Aguero Calcium [Mass/Vol] 9.7 mg/dL Normal 8.5-10.1 [facility] Comment on above: Performed By: #### L NGA SMITH, CMP #### [facility] [address] [address] [address] Angela Aguero Chloride [Moles/Vol] 102 mmol/L Normal 98-107 [facility] Comment on above: Performed By: #### L NGA SMITH, CMP #### [facility] [address] [address] [address] Angela Aguero CO2 [Moles/Vol] 26.6 mmol/L Normal 21.0-32.0 [facility] Comment on above: Performed By: #### L NGA SMITH, CMP #### [facility] [address] [address] [address] Angela Aguero Creatinine [Mass/Vol] 1.00 mg/dL Normal 0.55-1.02 [facility] Comment on above: Performed By: #### L NGA SMITH, CMP #### [facility] [address] [place] [address] Dr. Angela Aguero EGFR-AF [place]LANDER >60 Normal >=60 [facility] Comment on above: Performed By: #### L NGA SMITH, CMP #### [facility] [address] [place] [address] Dr. Angela Aguero EGFR-NON AF [place]ER >60 Normal >=60 [facility] Comment on above: Performed By: #### L NGA SMITH, CMP #### [facility] [address] [place] [address] Dr. Angela Aguero Globulin (S) [Mass/Vol] 4.1 g/dL Normal [facility] Comment on above: Performed By: #### L NGA SMITH, CMP #### [facility] [address] [place] [address] Dr. Angela Aguero Glucose [Mass/Vol] 170 mg/dL Critically high 74-106 [facility] Comment on above: Performed By: #### L NGA SMITH, CMP #### [facility] [address] [place] [address] Dr. Angela Aguero Potassium [Moles/Vol] 3.4 mmol/L Critically low 3.5-5.1 [facility] Comment on above: Performed By: #### L NGA SMITH, CMP #### [facility] [address] [place] [address] Dr. Angela Aguero Protein [Mass/Vol] 8.6 g/dL Critically high 6.4-8.2 [facility] Comment on above: Performed By: #### L NGA SMITH, CMP #### [facility] [address] [place] [address] Dr. Angela Aguero Sodium [Moles/Vol] 143 mmol/L Normal 136-145 [facility] Comment on above: Performed By: #### L NGA SMITH, CMP #### [facility] [address] [place] [address] Dr. Angela Aguero Urea nitrogen [Mass/Vol] 4.0 mg/dL Critically low 7.0-18.0 [facility] Comment on above: Performed By: #### L NGA SMITH, CMP #### [facility] [address] [place] [address] Dr. Angela Aguero Urea nitrogen/Creatinine [Mass ratio] 4.0 mg/mg Normal [facility] Comment on above: Performed By: #### L NGA SMITH, CMP #### [facility] [address] [place] [address] Dr. Angela Aguero PROTIMEon 11-10-2021 INR Coag (PPP) [Relative time] 1.13 {INR} Normal [facility] Comment on above: Performed By: #### L NGA SMITH, CMP #### [facility] [address] [place] [address] Dr. Angela Aguero INR GUIDELINES SEE BELOW Normal [facility] Comment on above: Result Comment: VARSHA RED INR: 2.0 - 3.0 CONDITIONS NOT LISTED BELOW 2.5 - 3.5 FOR PROSTHETIC HEART VALVE REPLACEMENT 2.5 - 3.5 RECURRENT THROMBOSIS Performed By: #### L NGA SMITH, CMP #### [facility] [address] [place] [address] Dr. Angela Aguero PT Coag (PPP) [Time] 12.1 s Critically high 9.0-11.6 [facility] Comment on above: Performed By: #### L NGA SMITH, CMP #### [facility] [address] [place], [place] [address] Dr. Angela Aguero PTTon 11-10-2021 aPTT Coag (Bld) [Time] 30.2 s Normal 22.3-36.2 [facility] Comment on above: Performed By: #### L NGA SMITH, CMP #### [facility] [address] [place], [place] [address] Dr. Angela Aguero Automated epithelial cells c ount in urine sediment (number/area)Ordered By: Hal Orozco on 11-06-2021 Epithelial cells Auto (Urine sed) [#/Area] 10-19 [HPF] 0-2 [facility] Automated erythrocytes count in urine sediment (number/area)Ordered By: Hal Orozco on 11-06-2021 RBC Auto (Urine sed) [#/Area] 0-1 [HPF] 0-4 [facility] Automated leukocytes count i n urine sediment (number/area)Ordered By: Hal Orozco on 11-06-2021 WBC Auto (Urine sed) [#/Area] 1-2 [HPF] 0-4 [facility] Basophils Auto (Bld) [#/Vol] Ordered By: Hal Orozco on 11-06-2021 Basophils (Bld) [#/Vol] 0.0 10*3/uL 0.0-0.2 [facility] Basophils/100 WBC Auto (Bld) Ordered By: Hal Orozco on 11-06-2021 Basophils/100 WBC (Bld) 0.3 % . [facility] Bilirubin Auto test strip Ql (U)Ordered By: Hal Orozco on 11-06-2021 Bilirubin Ql (U) 1+ Negative [facility] Blood hemoglobin measurement (mass/volume)Ordered By: Hal Orozco on 11-06-2021 Hemoglobin (Bld) [Mass/Vol] 15.7 g/dL 11.8-15.4 [facility] Blood leukocytes automated c ount (number/volume)Ordered By: Hal Orozco on 11-06-2021 WBC (Bld) [#/Vol] 9.8 10*3/uL 4.5-11.0 [facility] Body fluid albumin measureme nt (mass/volume)Ordered By: Hal Orozco on 11-06-2021 Albumin (Body fld) [Mass/Vol] 4.7 g/dL 3.2-5.5 [facility] Creatinine and Glomerular fi ltration rate.predicted panel (S/P/Bld)Ordered By: Hal Orozco on 11-06-2021 Creatinine [Mass/Vol] 0.99 mg/dL 0.44-1.03 [facility] Direct bilirubin measurement Ordered By: Hal Orozco on 11-06-2021 Bilirubin.direct [Mass/Vol] 0.3 mg/dL 0.0-0.4 [facility] Eosinophils Auto (Bld) [#/Vo l]Ordered By: Hal Orozco on 11-06-2021 Eosinophils (Bld) [#/Vol] 0.0 10*3/uL 0.0-0.45 [facility] Eosinophils/100 WBC Auto (Bl d)Ordered By: Hal Orozco on 11-06-2021 Eosinophils/100 WBC (Bld) 0.0 % . [facility] Erythrocyte distribution wid th Auto (RBC) [Ratio]Ordered By: Hal Orozco on 11-06-2021 Erythrocyte distribution width (RBC) [Ratio] 14.3 % 11.9-15.3 [facility] Estimated glomerular filtrat ion rate (GFR) non- AmericanOrdered By: Hal Orozco on 11-06-2021 GFR/1.73 sq M.predicted among non-blacks MDRD (S/P/Bld) [Vol rate/Area] > 60 mL/Min [facility] Globulin Calc (S) [Mass/Vol] Ordered By: Hal Orozco on 11-06-2021 Globulin (S) [Mass/Vol] 3.4 g/dL [facility] HCG ( test) IA.rapi d Ql (U)Ordered By: Hal Orozco on 11-06-2021 HCG ( test) Ql (U) Negative [facility] Hematocrit Auto (Bld) [Volum e fraction]Ordered By: Hal Orozco on 11-06-2021 Hematocrit (Bld) [Volume fraction] 45.7 % 34.0-46.4 [facility] Ketones Auto test strip (U) [Mass/Vol]Ordered By: Hal Orozco on 11-06-2021 Ketones (U) [Mass/Vol] 1+ Negative [facility] - Chemistry and C hemistry - challengeOrdered By: Hal Orozco on 11-06-2021 Lipase [Catalytic activity/Vol] 18.0 U/L 22-51 [facility] - Hematology and Cell countsOrdered By: Hal Orozco on 11-06-2021 Nucleated RBC/100 WBC (Bld) [Ratio] 0.1 % 0-0.5 [facility] Lymphocytes Auto (Bld) [#/Vo l]Ordered By: Hal Orozco on 11-06-2021 Lymphocytes (Bld) [#/Vol] 0.4 10*3/uL 1.00-4.8 [facility] Lymphocytes/100 WBC Auto (Bl d)Ordered By: Hal Orozco on 11-06-2021 Lymphocytes/100 WBC (Bld) 3.8 % . [facility] MCH Auto (RBC) [Entitic mass ]Ordered By: Hal Orozco on 11-06-2021 MCH (RBC) [Entitic mass] 32.4 pg 24.7-34.3 [facility] MCHC Auto (RBC) [Mass/Vol]Or dered By: Hal Orozco on 11-06-2021 MCHC (RBC) [Mass/Vol] 34.4 g/dL 32.0-35.0 [facility] MCV Auto (RBC) [Entitic vol] Ordered By: Hal Orozco on 11-06-2021 MCV (RBC) [Entitic vol] 94.2 fL 80-100 [facility] Monocytes Auto (Bld) [#/Vol] Ordered By: Hal Orozco on 11-06-2021 Monocytes (Bld) [#/Vol] 0.3 10*3/uL 0.0-0.8 [facility] Monocytes/100 WBC Auto (Bld) Ordered By: Hal Orozco on 11-06-2021 Monocytes/100 WBC (Bld) 2.9 % . [facility] Mucus LM Ql (Urine sed)Order ed By: Hal Orozco on 11-06-2021 Mucus Ql (Urine sed) 2+ [LPF] [facility] Neutrophils Auto (Bld) [#/Vo l]Ordered By: Hal Orozco on 11-06-2021 Neutrophils (Bld) [#/Vol] 9.1 10*3/uL 1.8-7.7 [facility] Neutrophils/100 WBC Auto (Bl d)Ordered By: Hal Orozco on 11-06-2021 Neutrophils/100 WBC (Bld) 93.0 % . [facility] No Panel InformationOrdered By: Hal Orozco on 11-06-2021 Estimated GFR () > 60 mL/Min [facility] Comment on above: GFR estimated refere nce range: According to KDOQI guidelines, <60 ml/min/1.73m2 is sufficient to diagnose a patient with chronic kidney disease. Pharmacy Creatinine Clearance (Chem 72.84 [facility] Platelet mean volume Auto (B ld) [Entitic vol]Ordered By: Hal Orozco on 11-06-2021 Platelet mean volume (Bld) [Entitic vol] 7.5 fL 6.3-10.7 [facility] Platelets Auto (Bld) [#/Vol] Ordered By: Hal Orozco on 11-06-2021 Platelets (Bld) [#/Vol] 270 10*3/uL 150-450 [facility] Protein Auto test strip (U) [Mass/Vol]Ordered By: Hal Orozco on 11-06-2021 Protein (U) [Mass/Vol] 30 mg/dL Negative [facility] Protein [Mass/volume] in Ser um or PlasmaOrdered By: Hal Orozco on 11-06-2021 Protein [Mass/Vol] 8.1 g/dL 6.1-7.9 [facility] RBC Auto (Bld) [#/Vol]Ordere d By: Hal Orozco on 11-06-2021 RBC (Bld) [#/Vol] 4.85 10*6/uL 3.60-5.00 [facility] Serum or plasma alanine montes otransferase measurement without P-5'-P (enzymatic activiOrdered By: Hal Orozco on 11-06-2021 ALT No additional P-5'-P [Catalytic activity/Vol] 64 U/L 10-60 [facility] Serum or plasma albumin/glob ulin mass ratioOrdered By: Hal Orozco on 11-06-2021 Albumin/Globulin [Mass ratio] 1.4 {ratio} [facility] Serum or plasma alkaline florencio sphatase measurement (enzymatic activity/volume)Ordered By: Hal Orozco on 11-06-2021 ALP [Catalytic activity/Vol] 75 U/L 32-92 [facility] Serum or plasma aspartate am inotransferase measurement (enzymatic activity/volume)Ordered By: Hal Orozco on 11-06-2021 AST [Catalytic activity/Vol] 101 U/L 10-42 [facility] Serum or plasma calcium archie urement (mass/volume)Ordered By: Hal Orozco on 11-06-2021 Calcium [Mass/Vol] 9.3 mg/dL 8.2-10.2 [facility] Serum or plasma chloride luz surement (moles/volume)Ordered By: Hal Orozco on 11-06-2021 Chloride [Moles/Vol] 101 mmol/L 95-114 [facility] Serum or plasma glucose archie urement (mass/volume)Ordered By: Hal Orozco on 11-06-2021 Glucose [Mass/Vol] 205 mg/dL 70-100 [facility] Comment on above: ADA recommended refe rence [...] Orozco on 11-06-2021 Bilirubin.indirect [Mass/Vol] 1.0 mg/dL [facility] Serum or plasma potassium me asurement (moles/volume)Ordered By: Hal Orozco on 11-06-2021 Potassium [Moles/Vol] 3.8 mmol/L 3.5-5.1 [facility] Serum or plasma sodium measu rement (moles/volume)Ordered By: Hal Orozco on 11-06-2021 Sodium [Moles/Vol] 142 mmol/L 136-146 [facility] Serum or plasma total biliru bin measurement (mass/volume)Ordered By: Hal Orozco on 11-06-2021 Bilirubin [Mass/Vol] 1.3 mg/dL 0.3-1.2 [facility] Comment on above: Samples from patient s who have taken Naproxen have shown spurious elevation in Total Bilirubin levels. A metabolite of Naproxen, O-desmethylnaproxen, has been shown to interfere with the Renetta method for measuring Total Bilirubin. Serum or plasma total carbon dioxide measurement (moles/volume)Ordered By: Hal Orozco on 11-06-2021 CO2 [Moles/Vol] 21.6 mmol/L 22.0-30.0 [facility] Serum or plasma urea nitroge n measurement (mass/volume)Ordered By: Hal Orozco on 11-06-2021 Urea nitrogen [Mass/Vol] 4 mg/dL 9-23 [facility] Urine appearanceOrdered By: Hal Orozco on 11-06-2021 Appearance (U) Clear Clear [facility] Urine bacteria detection by automated methodOrdered By: Hal Orozco on 11-06-2021 Bacteria Auto Ql (U) 1+ None [facility]en [facility] [place] Urine colorOrdered By: Jimbo Orozco on 11-06-2021 Color (U) Yellow Yellow [facility] Urine glucose measurement by automated test strip (mass/volume)Ordered By: Hal Orozco on 11-06-2021 Glucose Auto test strip (U) [Mass/Vol] Normal mg/dL Normal [facility] Urine hemoglobin detection b y automated test stripOrdered By: Hal Orozco on 11-06-2021 Hemoglobin Auto test strip Ql (U) Negative Negative [facility] Urine leukocyte esterase det ection by automated test stripOrdered By: Hal Orozco on 11-06-2021 Leukocyte esterase Auto test strip Ql (U) Negative Negative [facility] Urine nitrite detection by a utomated test stripOrdered By: Hal Orozco on 11-06-2021 Nitrite Auto test strip Ql (U) Negative Negative [facility] Urobilinogen Auto test strip (U) [Mass/Vol]Ordered By: Hal Orozco on 11-06-2021 Urobilinogen (U) [Mass/Vol] mg/dL Normal [facility] pH Auto test strip (U)Ordere d By: Hal Orozco on 11-06-2021 pH (U) 1.025 [pH] 1.001-1.03 0 [facility] pH (U) 6.5 [pH] 5.0-9.0 [facility] Vital Signs Date Time Vital Sign Value Performing Clinician Facility 01-22-2024 08:00-0400 Body temperature 98.1 [degF] CATIA Blanca Work Phone: [facility] 01-22-2024 08:00-0400 Diastolic blood pressure 78 mm[Hg] CATIA Blanca Work Phone: [facility] 01-22-2024 08:00-0400 Heart rate 116 /min CATIA Blanca Work Phone: [facility] 01-22-2024 08:00-0400 Respiratory rate 18 /min CATIA Blanca Work Phone: [facility] 01-22-2024 08:00-0400 SaO2% (BldA) [Mass fraction] 99 % CATIA Blanca Work Phone: [facility] 01-22-2024 08:00-0400 Systolic blood pressure 109 mm[Hg] CATIA Blanca Work Phone: [facility] 01-21-2024 10:58-0400 Body weight 62.09 kg CATIA Blanca Work Phone: [facility] 01-18-2024 15:54-0400 Body height 170.18 cm CATIA Blanca Work Phone: [facility] 01-15-2024 10:17-0400 Diastolic blood pressure 108 mm[Hg] CATIA Blanca Work Phone: [facility] 01-15-2024 10:17-0400 Heart rate 73 /min LEAF COVERERTodd Blanca Work Phone: [facility] 01-15-2024 10:17-0400 Respiratory rate 18 /min LEAF COVERERTodd Blanca Work Phone: [facility] 01-15-2024 10:17-0400 SaO2% (BldA) [Mass fraction] 95 % LEAF COVERERTodd Blanca Work Phone: [facility] 01-15-2024 10:17-0400 Systolic blood pressure 148 mm[Hg] CATIA Blanca Work Phone: [facility] 01-15-2024 08:59-0400 Body temperature 98.6 [degF] CATIA Blanca Work Phone: [facility] 06-14-2023 14:27-0500 Body height 167.64 cm CATIA Blanca Work Phone: [facility] 06-14-2023 14:27-0500 Body mass index (BMI) [Ratio] 22 kg/m2 LEAF COVERERTodd Blanca Work Phone: [facility] 06-14-2023 14:27-0500 Body weight 61.91 kg CATIA Blanca Work Phone: [facility] 06-14-2023 14:27-0500 Diastolic blood pressure 85 mm[Hg] CATIA Blanca Work Phone: [facility] 06-14-2023 14:27-0500 Heart rate 94 /min CATIA Blanca Work Phone: [facility] 06-14-2023 14:27-0500 Respiratory rate 18 /min CATIA Blanca Work Phone: [facility] 06-14-2023 14:27-0500 SaO2% (BldA) [Mass fraction] 100 % LEAF COVERERTodd Blanca Work Phone: [facility] 06-14-2023 14:27-0500 Systolic blood pressure 132 mm[Hg] LEAF COVERER Avery Blanca Work Phone: [facility] 03-27-2023 10:45-0500 Body height 167.64 cm Becky Scally Other [facility] 03-27-2023 10:45-0500 Body mass index (BMI) [Ratio] 21.93 kg/m2 Becky Scally Other [employer] Other 03-27-2023 10:45-0500 Body weight 61.64 kg Becky Scally Other [facility] 03-27-2023 10:45-0500 Diastolic blood pressure 80 mm[Hg] Becky Scally Other [facility] 03-27-2023 10:45-0500 Respiratory rate 16 /min Becky Scally Other [employer] Other 03-27-2023 10:45-0500 SaO2% (BldA) [Mass fraction] 100 % Becky Scally Other [employer] Other 03-27-2023 10:45-0500 Systolic blood pressure 125 mm[Hg] Becky Scally Other [facility] 02-01-2022 23:07-0400 Diastolic blood pressure 103 mm[Hg] Kaylinn Dokken [facility] 02-01-2022 23:07-0400 Heart rate 67 /min Kaylinn Dokken [facility] 02-01-2022 23:07-0400 Respiratory rate 15 /min Kaylinn Dokken [facility] 02-01-2022 23:07-0400 SaO2% (BldA) [Mass fraction] 97 % Zarieylinn Dokken [facility] 02-01-2022 23:07-0400 Systolic blood pressure 164 mm[Hg] Kaylinn Dokken [facility] 02-01-2022 21:27-0400 Body temperature 98.24 [degF] Zaireylinn Dokken [facility] 02-01-2022 21:27-0400 Diastolic blood pressure 120 mm[Hg] Zaireylinn Dokken [facility] 02-01-2022 21:27-0400 Heart rate 111 /min Zaireylinn Dokken [facility] 02-01-2022 21:27-0400 Respiratory rate 20 /min Zaireylinn Dokken [facility] 02-01-2022 21:27-0400 SaO2% (BldA) [Mass fraction] 98 % Charaninn Dokken [facility] 02-01-2022 21:27-0400 Systolic blood pressure 196 mm[Hg] Charaninn Dokken [facility] 12-28-2021 08:56-0400 Body height 167.64 cm Services [employer] Work Phone: [facility] 12-28-2021 08:56-0400 Body weight 71.66 kg Services [employer] Work Phone: [facility] 12-23-2021 09:40-0400 Diastolic blood pressure 87 mm[Hg] Services [employer] Work Phone: [facility] 12-23-2021 09:40-0400 Heart rate 88 /min Services [facility] [employer] Work Phone: [facility] 12-23-2021 09:40-0400 Respiratory rate 18 /min [facility] Work Phone: [facility] 12-23-2021 09:40-0400 SaO2% (BldA) [Mass fraction] 100 % [facility] Work Phone: [facility] 12-23-2021 09:40-0400 Systolic blood pressure 140 mm[Hg] [facility] Work Phone: [facility] 12-23-2021 07:44-0400 Body height 167.64 cm [facility] Work Phone: [facility] 12-23-2021 07:44-0400 Body weight 68.03 kg [facility] Work Phone: [facility] 11-06-2021 14:00-0400 Diastolic blood pressure 82 mm[Hg] [facility] Work Phone: [facility] 11-06-2021 14:00-0400 Heart rate 102 /min [facility] Work Phone: [facility] 11-06-2021 14:00-0400 Respiratory rate 20 /min [facility] Work Phone: [facility] 11-06-2021 14:00-0400 SaO2% (BldA) [Mass fraction] 97 % [facility] Work Phone: [facility] 11-06-2021 14:00-0400 Systolic blood pressure 123 mm[Hg] [facility] Work Phone: [facility] 11-06-2021 00:00-0400 Body height 167.64 cm [facility] Work Phone: [facility] 11-06-2021 00:00-0400 Body weight 70.3 kg [facility] Work Phone: [facility] 11-05-2021 23:51-0400 Body temperature 98 [degF] [facility] Work Phone: [facility] Encounters Encounter Date Encounter Type Care Provider Facility Start: 01-16-2024 Non-patient / Non-visit LEAF COVERER Reji jimenez Evangelist Work Phone: [facility] Work Phone: Start: 01-15-2024 End: 01-22-2024 Evaluation and management of inpatient LEAF COVERERTodd Baldwin Evangelist Work Phone: [facility] [place] [address] Work Phone: Start: 11-27-2023 End: 11-30-2023 Clinisync Result Encounter Shaikh Jonatan OROURKE Work Phone: [facility] Unsolicited Start: 11-27-2023 End: 11-30-2023 Clinisync Result Encounter Shaikh Jonatan OROURKE Work Phone: [facility] Unsolicited Start: 11-26-2023 End: 12-01-2023 Non-patient / Non-visit LEAF COVERERoTdd Blanca Work Phone: [facility] Work Phone: Start: 11-22-2023 Non-patient / Non-visit LEAF COVERER Reji jimenez Evangelist Work Phone: [facility] Work Phone: Start: 11-22-2023 ambulatory Avery Blanca Facili ty:[facility] Start: 11-22-2023 Registered Recurring LEAF COVERER Ez reji Evangelist Work Phone: [facility] Start: 08-14-2023 End: 08-14-2023 ambulatory Avery Babb Blanca [facility] Work Phone: Start: 08-14-2023 End: 08-14-2023 Departed Referred CATIA Blanca Work Phone: [facility] Start: 06-14-2023 End: 06-14-2023 Patient encounter procedure LEAF COVERERTodd Blanca Work Phone: [facility] Physician [facility] Work Phone: Start: 03-27-2023 FQHC visit new patient Becky beck [facility] Start: 03-27-2023 End: 03-27-2023 Discharged Recurring CATIA Blanca Work Phone: [facility] Work Phone: Start: 03-27-2023 End: 03-27-2023 ambulatory CATIA Blanca Work Phone: [facility] [employer] Other Start: 03-27-2023 End: 03-27-2023 Patient encounter procedure CATIA Blanca Work Phone: [facility] Work Phone: Start: 01-19-2023 ambulatory Aung Saldaña [facility] ty:[facility] Start: 10-21-2022 End: 10-21-2022 Emergency department patient visit Thanh Bal Facility:[facility] Start: 03-26-2022 End: 03-26-[address] DEON MCGUIRE Facility: Start: 02-01-2022 End: 02-02-2022 Emergency department patient visit DO Judith Mock Facility:[facility] Start: 02-01-2022 End: 02-02-2022 Emergency department patient visit Judith Mock [facility] Start: 01-31-2022 End: 05-02-2022 ambulatory Varinder Ang Facility:[facility] Start: 01-18-2022 End: 01-18-2022 ambulatory Services [facility] Work Phone: [facility] Work Phone: Start: 01-18-2022 End: 01-18-2022 Patient encounter procedure Services Family [facility] Work Phone: [facility] [place] Start: 12-28-2021 End: 12-28-2021 Patient encounter procedure Services [facility] Work Phone: [facility] [place] Start: 12-23-2021 End: 12-23-2021 Patient encounter procedure Services [employer] Phone: [facility] [place] Start: 11-25-2021 End: 11-25-2021 Departed Referred Services [employer] Phone: [facility] Start: 11-18-2021 End: 11-20-[address] DOCTOR SALGADO Facility:[facility] Start: 11-10-2021 End: 11-11-2021 ambulatory MAGGY WORLEY Facility:[facility] Start: 11-05-2021 End: 11-06-2021 Emergency department patient visit Services [employer] Phone: [facility]Emergency Room Procedures Date Procedure Procedure Detail Performing Clinician Start: 11-27-2023 Bacteria identified in Urine by Culture Shaikh Jonatan OROURKE Work Phone: Start: 12-28-2021 MRI of thoracic spin e with contrast Services [employer] [facility] [employer] Phone: Start: 12-28-2021 XR pre/post mri xray [facility] [employer] Phone: Start: 12-28-2021 MRI of lumbar spine with contrast Services [employer] [facility] Phone: Start: 12-23-2021 MRI of head Services [facility] [employer] Work Phone: Aerobic microbial culture Se [facility] [employer] [facility] [employer] Phone: Anaerobic microbial culture Services [employer] [facility] [employer] Phone: Investigation of transfusion reaction Services [employer] [facility] [employer] Phone: Plan of Treatment Date Care Activity Detail Author Start: 01-22-2024 [facility] Start: 01-18-2024 Referral to clinical dietetics professor [facility] Start: 01-15-2024 Referral to [employer]tron[employer] Technician [facility] Start: 01-15-2024 Hospital admission [facility] Start: 01-18-2022 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 [facility] Start: 01-18-2022 [facility] Start: 12-23-2021 [facility] Start: 12-23-2021 Cerebrospinal fluid culture [facility] Work Phone: Start: 12-23-2021 [facility] Start: 12-23-2021 Lumbar puncture usin g fluoroscopic guidance [facility] Work Phone: Start: 11-25-2021 End: 11-25-2021 Departed Referred Departed Referred [facility] Albumin [Mass/volume ] in Cerebral spinal fluid [facility] Work Phone: Albumin [Mass/volume ] in Serum or Plasma [facility] Work Phone: Albumin/Globulin ratio [facility] Work Phone: Bacteria identified in Unspecified specimen by Aerobe culture [facility] Work Phone: Bacteria identified in Unspecified specimen by Anaerobe culture [facility] Work Phone: Cell count, cerebros alexus fluid [facility] Work Phone: Centromere protein B Ab [Units/volume] in Serum [facility] Work Phone: Cerebrospinal fluid examination [facility] Work Phone: Cerebrospinal fluid IgG ratio and IgG index [facility] Work Phone: Chromatin Ab [Units/ volume] in Serum or Plasma [facility] Work Phone: Comprehensive metabo lic 2000 panel - Serum or Plasma [facility] DNA double strand Ab [Units/volume] in Serum [facility] Work Phone: Electrophoresis: [id number] [facility] Work Phone: Electrophoresis: [id number] [facility] Work Phone: Electrophoresis: beta-globulin [facility] Work Phone: Electrophoresis: toby ma globulin [facility] Work Phone: Evaluation of cerebr ospinal fluid [facility] Work Phone: Fluid sample volume measurement [facility] Work Phone: Globulin [Mass/volum e] in Serum [facility] Work Phone: Glucose [Mass/volume ] in Cerebral spinal fluid [facility] Work Phone: Glutamate decarboxyl ase 65 Ab [Units/volume] in Serum [facility] IgG [Mass/volume] in Cerebral spinal fluid [facility] Work Phone: IgG [Mass/volume] in Serum or Plasma [facility] Work Phone: IgG clearance/Albumi n clearance [Ratio] in Serum and CSF [facility] Work Phone: IgG synthesis rate [Mass/time] in Serum and CSF by calculation [facility] Work Phone: Insulin Ab [Units/vo lume] in Serum [facility] Insulin C-peptide measurement [facility] Rika-1 extractable nuc lear Ab [Units/volume] in Serum [facility] Work Phone: Meningitis+Encephali tis pathogens DNA and RNA panel - Cerebral spinal fluid by GOPAL with non-probe detection [facility] Work Phone: Methylmalonate [Moles/volume] in Serum or Plasma [facility] Work Phone: Microscopic observat ion [Identifier] in Unspecified specimen by Gram stain [facility] Nucleated cells [#/v olume] in Cerebral spinal fluid by Manual count [facility] Work Phone: Patient Education [facility] Work Phone: Patient referral [facility] Work Phone: Protein [Mass/volume ] in Cerebral spinal fluid [facility] Work Phone: Protein [Mass/volume ] in Serum or Plasma [facility] Work Phone: Protein fractions.oligoclonal bands.intrathecal [Presence] in Serum and CSF [facility] Work Phone: Red blood cell count [facility] Work Phone: 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 [facility] Work Phone: SCL-70 extractable n uclear Ab [Units/volume] in Serum by Immunoassay [facility] Work Phone: Sjogrens syndrome-A extractable nuclear Ab [Units/volume] in Serum [facility] Work Phone: Sjogrens syndrome-B extractable nuclear Ab [Units/volume] in Serum [facility] Work Phone: Mcguire extractable nu clear Ab [Units/volume] in Serum [facility] Work Phone: Thiamine [Moles/volu me] in Blood [facility] Immunizations Immunization Date Immunization Notes Care Provider Fa [facility] 01-31-2022 influenza virus vaccine, unspecified formulation Judith Piersonmandeepedwige [facility] Comment on above: Reason for Medicatio n: Prophylaxis Payers Date Payer Category Payer Self-pay [id number] 2021 Unknown 1985 Unknown [id number] 2.16.84 [id number] 1984 Unknown [id number] 2.16.84 [id number] 1984 Unknown [id number] 2.16.84 [id number] 1984 Unknown [id number] 2.16.8 [id number] 1984 Unknown [id number] 2.16.8 [id number] 1984 Unknown [id number] 2.16.8 [id number] 1984 Unknown [id number] 2.16.8 [id number] 1959 Unknown [id number] Medicaid [id number] Unknown [id number] 2.16.8 [id number] Unknown [id number] 2.16.8 [id number] Unknown [id number] 2.16.8 [id number] Unknown [id number] 2.16.8 [id number] Social History Date Type Detail Facility Start: 11-06-2021 End: 03-27-2023 Tobacco smoking status IAIS Ex-smoker (finding) [facility] Start: 1985 Sex Assigned At Female F [facility] Tobacco smoking status No Smoking Status Entered [facility] Sex Assigned At Female [facility] Start: 06-14-2023 End: 01-18-2024 Tobacco smoking status IAIS Smoker (finding) [facility] Tobacco smoking status [facility] Tobacco smoking consumption unknown [facility] Start: 1985 Sex assigned at Not on file [facility] Healthcare Goals Date Patient Goal Desired Activity /State Functional Status Date Assessment Result Facility 01-22-2024 Functional status Patient at Baseline [facility] Work Phone: 02-01-2022 Functional Status N/A [facility] Mental Status Date Assessment Result Facility 01-22-2024 Cognitive function Cognitive Sta tus Patient at Baseline [facility] Work Phone: Clinical Notes 02-01-2022 to 01-22-2024 Note Date & Type Note Facility 01-22-2024 Discharge summary Note Date/Time January 22, 2024 11:00am [facility] [address] [place] [address] Discharge Summary Signed Patient: Shikha Loera MR#: [id number] : 1985 Acct:[id number] Age/Sex: 38 / F Adm Date: 4 Loc: Room: [address] [place] [address]: Jack Kwon MD Copies to: MD Devonte Wu MD [facility]~ Providers Date of Discharge: 01/22/24 Discharging Provider: Devonte Valdovinos Primary Care Provider: Services [facility] Consults: 01/15/24 11:22 Consult to Case Management Routine Comment: CM Reason for Consult: [employer]tron[employer] Technician-General 01/18/24 04:46 Consult to Adult Hospitalist Routine [...] depression, alcohol use disorder Past hospitalizations: Previous [address] [place] [address] hospitalization 10-15 years ago for suicide attempt [...] Instructions: Important Contact Information You can call [facility] Inpatient Behavioral Health at [phone] any time day or night if you have emergent questions or question regarding discharge instructions. If at any time you are feeling an increase inyour psychiatric symptoms, call your physician or behavioral healthcare provider. If any time you have thoughts of harming yourself or others contact one of the following: Call 9-8-8 (available 30/10) Crisis Text Line (available 30/10) text 4HOPE to [phone] [facility] Hope Line (available 8 a.m. Midnight) call [phone] ([phone]) Regular Diet No Activity Restrictions Instructions: Depression, Adult (DC), Alcohol Use Disorder (DC), [facility] Behavioral Health DC Instructions, Know your Meds [...] tablet 5 mg PO DAILY Follow Up: [facility] [Outside] - 01/23/24 (A therapeutic case manager will call you tomorrow 01/22 between 8-5 to discuss appointments and follow-up care. Financial and diagnostic assessment on 01/22 at 1:30pm Nursing intake on 02/05 at 10am Appointment with Dr. Valdovinos on 02/11 at 10:15am[facility] (see with any medical needs) [...] <Electronically signed by Devonte Valdovinos MD> 01/22/24 4841 [facility] Work Phone: 1(432) 883-254810-14-2024 Progress note Author Devonte Valdovinos [facility] January 21, 2024 2:21pm Note Date/Time January 21, 2024 1 2:12pm [facility] [address] [place] [address] Psychiatry Progress Note Signed Patient: Shikha Loera MR#: [id number] : 1985 Acct:[id number] Age/Sex: 38 / F Adm Date: 4 Loc: Room: [address] [place] [address] Type : ADM IN Attending Dr: Jack [...] signed by Devonte Valdovinos MD> 01/21/24 1421 [facility] Work Phone: 1(740) 224-490310-13-2024 Progress note Author Jack wright [facility] January 20, 2024 5:40pm Note Date/Time January 20, 2024 1 1:39am [facility] [address] [place] [address] Psychiatry Progress Note Signed Patient: Shikha Loera MR#: [id number] : 1985 Acct:[id number] Age/Sex: 38 / F Adm Date: 4 Loc: 1S Room: [address] [place] [address] Type : ADM IN Attending Dr: Jack [...] to get ahold of her. Ena Rooney [phone] Mother stated she just talked to Shikha [...] <Electronically signed by Jack Kwon MD> 01/20/24 5798 [facility] Work Phone: 1(355) 397-685510-13-2024 Progress note Author Helen Bailon [facility] January 20, 2024 4:29pm Note Date/Time January 20, 2024 4 :29pm [facility] [address] [place] [address] Hospitalist Progress Note Signed Patient: Shikha Loera MR#: [id number] : 1985 Acct:[id number] Age/Sex: 38 / F Adm Date: 4 Loc: Room: [address] [place] [address] Type: ADM IN Attending Dr: Jack Kwon [...] By: <Electronically signed by CATIA Bailon> 01/20/241628 [facility] Work Phone: 1(986) 603-185510-12-2024 Progress note Author Helen Bailon [facility] January 19, 2024 4:50pm Note Date/Time January 19, 2024 4 :50pm [facility] [address] [place] [address] Hospitalist Progress Note Signed Patient: Shikha Loera MR#: [id number] : 1985 Acct:[id number] Age/Sex: 38 / F Adm Date: 4 Loc: Room: [address] [place] [address] Type: ADM IN Attending Dr: Jack Kwon [...] Documented By: Helen Bailon APRN 01/07 06/02 7239 Signed By: <Electronically signed by CATIA Sandsy> 01/19/24 1650 [facility] Work Phone: 1(156) 484-245210-12-2024 Progress note Author Jack wright [facility] January 19, 2024 8:01am Note Date/Time January 19, 2024 7 :59am [facility] [address] [place] [address] Psychiatry Progress Note Signed Patient: Shikha Loera MR#: [id number] : 1985 Acct:[id number] Age/Sex: 38 / F Adm Date: 4 Loc: Room: [address] [place] [address] Type : ADM IN Attending Dr: Jack [...] signed by Jack Kwon MD> 01/19/24 0801 [facility] Work Phone: 1(358) 960-249310-11-2024 Consult note Author Hari Nixon [facility] January 18, 2024 7:40pm Note Date/Time January 18, 2024 1 1:50am [facility] [address] [place] [address] Hospitalist Consult Note Signed Patient: Shikha Loera MR#: [id number] : 1985 Acct:[id number] Age/Sex: 38 / F Adm Date: 4 Loc: Room: [address] [place] [address] Type: ADM IN Attending Dr: Jack Kwon MD Copies to: Jack Kwon MD [facility] CATIA Dennis, DO~ HPI DATE OF [...] negative unless noted below or in HPI [facility] [facility] Medical History (Updated 01/18/24 @ 14:15 by [...] signed by Hari Nixon DO> 01/18/24 [facility] Work Phone: 1(603) 943-468410-11-2024 Progress note Author Jack wright [facility] January 18, 2024 2:15pm Note Date/Time January 18, 2024 9 :31am [facility] [address] [place] [address] Psychiatry Progress Note Signed Patient: Shikha Loera MR#: [id number] : 1985 Acct:[id number] Age/Sex: 38 / F Adm Date: 4 Loc: Room: [address] [place] [address] Type : ADM IN Attending Dr: Jack [...] makes no sense that 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 She has [...] <Electronically signed by Jack Kwon MD> 01/18/24 8971 [facility] Work Phone: 1(956) 285-525110-10-2024 Progress note Author Jack wright [facility] January 17, 2024 6:35am Note Date/Time January 17, 2024 6 :35am [facility] [address] [place] [address] Psychiatry Progress Note Signed Patient: Shikha Loera MR#: [id number] : 1985 Acct:[id number] Age/Sex: 38 / F Adm Date: 4 Loc: 1S Room: [address] [place] [address] Type : ADM IN Attending Dr: Jack [...] discharge. Documented By: Jack Kwon MD [id number] Signed By: <Electronically signed by Jack Kwon MD> 01/17/24 0635 [facility] Work Phone: 1([phone]) 820-800710-09-2024 History and physical note Author Jack wright [facility] January 16, 2024 6:36am Note Date/Time January 15, 2024 11 :43am [facility] [address] [place] [address] Psychiatry H&P Signed Patient: Shikha Loera MR#: [id number] : 1985 Acct:[id number] Age/Sex: 38 / F Adm Date: Loc: Room: [address] [place] [address] Type: ADM IN Attending Dr: Jack Kwon MD Copies to: Jack Kwon MD [facility]~ Date of Service: 01/16/2024 HPI History [...] her best friend. Patient was here at [address] [place] [address] during this time because she attempted suicide [...] depression, alcohol use disorder Past hospitalizations: Previous [address] [place] [address] hospitalization 10-15 years ago for suicide attempt [...] internalstimuli. Insight: limited , emerging Judgment: limited [facility] Medical History (Updated 01/16/24 @ 06:36 by [...] Cloudy A Urine pH 5.5 Ur Specific [place] 1.005 Urine Protein 20 H Urine Glucose [...] signed by Jack Kwon MD> 01/16/24 0636 [facility] Work Phone: 1(398) 112-347012-19-2023 Evaluation note* Encounter Date Diagnosis Assessment Notes [...] issues. 6. Prescriptions: New patient 03-27-2023 uses [facility]. Mar, Vitamin D deficiency (ICD-10 - E55.9) Mar, Hyperlipidemia, unspecified hyperlipidemia type (ICD-10 - E78.5) Mar, Hypertension, unspecified type (ICD-10 - I10) Mar, Dietary counseling and surveillance (ICD-10 - Z71.3) Mar, BMI 21.0-21.9, adult (ICD-10 - Z68.21) Mar, History of gestational diabetes (ICD-10 - Z86.32) [employer] Other 10-27-2022 Hospital Discharge instructions Patient Education 02/02/2022 00:18:28 Pyelonephritis, Adult, Emnv-xa-Rqia Pyelonephritis, Adult Pyelonephritis is an infection that [...] even if youstart to feel better. Take arye-wbj-qrbbjid and prescription medicines only as told by [...] 05/03/2005 Document Revised: 01/28/2019 Document Reviewed: 01/28/2019 [employer] Patient Education 2020 [employer]. Follow Up Care 02/01/2022 21:25:38 With:AVERY BLANCA Address: [address] [place] [address] [address] [place] [address]- [phone] Business (1) When:02/05/2022 Comments:You can use the pain medication every 6 hours as needed for pain, take the Bactrim twice daily until you have completed the course. Please follow-up with your primary care doctor the next 2 to 3 days. Please return to the ED for any new or worsening symptoms. [facility]10-26-2022 Evaluation + Plan noteExtracted from: Title:ED [...] With Cult Reflex Urine Culture US Gallbladder [facility] Narrative* Chief Complaint Referral Echd Detox DM [facility] Work Phone: Evaluation noteNo assessment information available [facility] Work Phone: Evaluation note* Diagnosis Onset Date Resolution Status Alcohol use disorder acute BMI 21.0-21.9, adult acute Controlled diabetes mellitus with hyperglycemia acute Dietary counseling and surveillance acute Hyperlipidemia acute Vitamin D deficiency acute [facility] Work Phone: Evaluation note* Diagnosis Onset Date Resolution Status Alcohol intoxication acute Suicidal ideations acute [facility] Work Phone: Evaluation note* Diagnosis Onset Date Resolution Status Alcohol intoxication acute Alcohol use disorder acute Alcohol withdrawal acute Bipolar depression acute HTN (hypertension) acute Hyperlipidemia acute Hypokalemia acute Hypomagnesemia acute Hypothyroid acute Suicidal ideations acute Vitamin D deficiency acute [facility] Work Phone: History general Narrative - Reported* Type Description Date Medical History Hx of abnormal pap Medical History Hx of pancreatitis Medical History type II diabetes Medical History bipolar Surgical History hemangioma removed from lip at age 4 Hospitalization History See Above Hospitalization History pancreatitis [facility] [place] Other Hospital course Narrative No data available for this section [facility] No data available for this section [facility] Chief Complaint and Reason [...] Member Role Status Dates Avery Blanca APRN MINES SAFETY ENGINEER-C Attending Provider Active Team Status: Inactive Member Role Status Dates Services [facility] Primary Care Provider Active Hal Orozco DO Emergency Provider Active Team Status: Inactive Member Role Status Dates Delfino Reese MD Attending Provider Active Yeyo Mcneill , MINES SAFETY ENGINEER-C Primary Care Provider Active Team Status: Active Member Role Status Dates Yeyo Mcneill , MINES SAFETY ENGINEER-C Primary Care Provider Active Team Status: Inactive Member Role Status Dates Yeyo Mcneill , MINES SAFETY ENGINEER-C Primary Care Provider Active Delfino Reese MD Attending Provider Active Team Status: Active Member Role Status Dates Avery Blanca APRN MINES SAFETY ENGINEER-C Primary Care Provider Act dario Team Status: Inactive Member Role Status Dates Becky Gambino APRN Attending Provider Active Start: March 27, 2023 End: March 27, 2023 Team Status: Inactive Member Role Status Dates Becky Gambino APRN Attending Provider Active Start: March 27, 2023 End: March 27, 2023 Avery Blanca APRN MINES SAFETY ENGINEER-C Primary Care Provider Act dario Start: March 27, 2023 End: March 27, 2023 Team Status: Inactive Member Role Status Dates Avery Blanca APRN MINES SAFETY ENGINEER-C Primary Care Provider Act dario Start: June 14, 2023 End: June 14, 2023 Becky Gambino APRN Attending Provider Active Start: June 14, 2023 End: June 14, 2023 Team Status: Inactive Member Role Status Dates Avery Blanca APRN MINES SAFETY ENGINEER-C Attending Provider Active Start: August 14, 2023 End: August 14, 2023 Team Status: Active Member Role Status Dates Services [facility] Primary Care Provider Active Team Status: Active Member Role Status Dates Avery Blanca APRN MINES SAFETY ENGINEER-C Primary Care Provider Act dario Start: November [...] Status: Inactive Member Role Status Dates Services [facility] Primary Care Provider Active Start: January 15, [...] 15, 2024 End: January 22, 2024 Martha Woosd APRN Other Provider Active St art: January [...] Status: Active Member Role Status Dates Services [facility] Primary Care Provider Active Start: January 16, [...] DATE CREATED AUTHOR AUTHOR'S ORGANIZ ATION 01/20/[address] [facility] DATE CREATED AUTHOR AUTHOR'S ORGANIZ ATION 03/07/2024 [facility] REASON FOR VISIT (unrecogniz [...] BE BASED ON THE PRIMARY CLINICAL RECORDS. [facility] [employer] [facility]. provides no warranty or guarantee of the accuracy or completeness of information in this document.
[2024-04-10] MEDS: 0.9 % SODIUM CHLORIDE 1,000 ML 1000 ML IV ×2 (08:22→10:39)
[2024-04-10] MEDS: ONDANSETRON PF 4 MG/2 ML VIAL IV (08:23)
[2024-04-10 08:28] LABS: Basophils Absolute Auto 0.2 10^3/uL (0.0-0.1); Basophils Percent Auto 5.3 % (0.2-2.0); Eosinophils Percent Auto 0.5 % (0.9-7.0); Hematocrit 41.7 % (36.0-48.0); Hemoglobin 14.3 g/dL (12.0-16.0); Immature Granulocytes Abs Auto 0.01 10^3/uL (0.00-0.03); Immature Granulocytes Pct Auto 0.2 % (0.0-0.5); Lymphocytes Absolute Auto 1.3 10^3/uL (1.2-3.8); Lymphocytes Percent Auto 29.4 % (20.5-60.0); Mean Corpuscular HGB Conc 34.3 g/dL (29.9-35.2); Mean Corpuscular Hemoglobin 31.8 pg (26.7-34.0); Mean Corpuscular Volume 92.7 fL (81.0-99.0); Mean Platelet Volume 9.1 fL (9.5-13.5); Monocytes Absolute Auto 0.3 10^3/uL (0.3-0.8); Neutrophils Absolute Auto 2.5 10^3/uL (1.4-6.5); Neutrophils Percent Auto 58.6 % (43.0-75.0); Platelet Count 404 10^3/uL (150-450); Red Cell Distribution Width 13.3 % (11.0-15.0); White Blood Count 4.3 10^3/uL (4.0-11.0)
[2024-04-10 08:38] LABS: Anion Gap 20.6; BUN Creatinine Ratio 6.3; Calcium 8.7 mg/dL (8.5-10.1); Carbon Dioxide 21.1 mmol/L (21.0-32.0); Chloride 103 mmol/L (98-107); Estimated GFR (African America >60 (>=60 mL/min/1.73m^2); Estimated GFR (Non-African Ame >60 (>=60 mL/min/1.73m^2); Glucose 104 mg/dL (74-106); Potassium 3.7 mmol/L (3.5-5.1); Sodium 141 mmol/L (136-145)
[2024-04-10 08:46] LABS: Alanine Aminotransferase 88 U/L (14-59); Albumin Level 3.9 g/dL (3.4-5.0); Alkaline Phosphatase 143 U/L (46-116); Aspartate Amino Transferase 106 U/L (15-37); Bilirubin Direct 0.2 mg/dL (0.0-0.2); Bilirubin Total 0.4 mg/dL (0.2-1.0); Ethanol 505 mg/dL; Globulin 3.9 g/dL; Total Protein 7.8 g/dL (6.4-8.2)
[2024-04-10] MEDS: PROMETHAZINE HCL 12.5 MG in 0.9 % SODIUM CHLORIDE 50 ML 202 MG IV (12:36)
== END 2024-04-10 13:27 | disposition home or self-care (01) ==
PROVIDERS: Emergency Provider Emergency Medicine
DX: F10.129 Alcohol abuse with intoxication, unspecified (principal); Y90.8 Blood alcohol level of 240 mg/100 ml or more; F17.290 Nicotine dependence, other tobacco product, uncomplicated
CPT/HCPCS: 36415; 80048; 80076; 80307; 80320; 81001; 85025; 93005; 96365; 96375; 99284; J2405; J2550

== ENCOUNTER 2024-04-12 08:44 | Inpatient (IN) | payer BC, OTHER, SELFPAY ==
[2024-04-12] VITALS (71 sets, daily range): BP systolic 115–175; BP diastolic 73–136; PULSE 73–148; TEMP 36.6–37; O2SAT 76–99; BMI 21.0
--- NOTE | 2024-04-12 09:01 | ECG_ITS ---
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
--- NOTE | 2024-04-12 09:03 | ED.ALCOHOL1 ---
HPI - Alcohol General Chief Complaint: Alcohol Stated Complaint: WITHDRAW FROM ALCHOL Time Seen by Provider: 04/12/24 08:49 Source: patient Mode of arrival: walk-in Limitations: no limitations History of Present Illness HPI narrative: pt with chronic alcoholism and prior admission for alcohol withdrawals, hx of DTs and seizures, presents with withdrawal symptoms from alcoholism and abrupt cessation. Last drink was 5pm yesterday, per pt. She typically drink 1L vodka daily. She complains of shakiness, tremors, nausea, agitation and fast HR. She was just admitted to [facility] for similar on 03/28/24. PMHx also includes hypothyroidism, HTN, alcoholic hepatitis and prior bouts of pancreatitis. She reports that she has been off of her anti-HTN meds for a while . Related Data Home Medications ?Medication ?Instructions ?Recorded ?Confirmed levothyroxine 50 mcg tablet 50 mcg PO DAILY 08/17/23 04/12/24 quetiapine 25 mg tablet 25 mg PO BID 08/17/23 04/12/24 amlodipine 10 mg tablet 10 mg PO DAILY 03/29/24 04/12/24 atorvastatin 20 mg tablet 20 mg PO .QHS 03/29/24 04/12/24 cholecalciferol (vitamin D3) 125 125 mcg PO DAILY 03/29/24 04/12/24 mcg (5,000 unit) capsule gabapentin 100 mg capsule 200 mg PO TID 03/29/24 04/12/24 hydroxyzine pamoate 50 mg capsule 50 mg PO Q6H PRN anxiety 03/29/24 04/12/24 lamotrigine 25 mg tablet 25 mg PO .QHS 03/29/24 04/12/24 mirtazapine 15 mg tablet 15 mg PO .QHS 03/29/24 04/12/24 multivitamin with folic acid 400 1 tab PO DAILY 03/29/24 04/12/24 mcg tablet (Daily-Augustina (with folic acid)) thiamine HCl (vitamin B1) 100 mg 100 mg PO BID 03/29/24 04/12/24 tablet Previous Rx's ?Medication ?Instructions ?Recorded clonidine HCl 0.1 mg tablet 0.1 mg PO Q4H PRN Agitation #30 04/01/24 tabs lorazepam 1 mg tablet 1 mg PO Q4H PRN Alcohol Withdrawal 04/01/24 5 days #30 tabs cephalexin 500 mg capsule 500 mg PO Q8H 7 days #21 caps 04/02/24 doxycycline hyclate 100 mg tablet 100 mg PO BID 7 days #14 tabs 04/02/24 Allergies Allergy/AdvReac Type Severity Reaction Status Date / Time lisinopril Allergy Severe Swelling Verified 04/12/24 08:50 of Lip/Tongue/Throat PFSH [facility] Medical History (Updated 04/12/24 @ 09:46 by Sai Ashby) Alcoholic hepatitis ?K70.10 - Alcoholic hepatitis without ascites (ICD-10) Alcohol withdrawal syndrome ?F10.939 - Alcohol use, unspecified with withdrawal, unspecified (ICD-10) Hypothyroidism ?E03.9 - Hypothyroidism, unspecified (ICD-10) Type 2 diabetes mellitus ?E11.9 - Type 2 diabetes mellitus without complications (ICD-10) Bipolar 1 disorder ?F31.9 - Bipolar disorder, unspecified (ICD-10) HTN (hypertension) ?I10 - Essential (primary) hypertension (ICD-10) Alcoholic intoxication ?F10.929 - Alcohol use, unspecified with intoxication, unspecified (ICD-10) Alcohol abuse ?F10.10 - Alcohol abuse, uncomplicated (ICD-10) Abdominal pain ?R10.9 - Unspecified abdominal pain (ICD-10) Family History Sister Family history of hypertension Aunt Alcoholism Uncle Alcoholism Social History Within the past year, how often did you have a drink containing alcohol: 4 or more times a week Within the past year, how many standard drinks containing alcohol did you have on a typical day: 7 to 9 Within the past year, how often did you have six or more drinks on one occasion: daily or almost daily Total score: 10 Score interpretation: A score of 3 or more indicates drinking is likely to affect patient's safety. Smoking status: Current every day smoker Do you use any of these nicotine containing products: vaping products Non-prescribed substance use: denies use Highest level of school completed/degree received: high school graduate Little interest or pleasure in doing things: not at all Feeling down, depressed, or hopeless: not at all Exam Narrative Exam Narrative: Nurses notes and vital signs reviewed and patient is not hypoxic. afebrile General: Ill-appearing and emotional. Skin: Warm, dry, no pallor noted. Head: Normocephalic, atraumatic. Neck: Supple, non-tender. Eye: Pupils are equal, round and EOMI. No scleral icterus. Ears, Nose, Mouth, and Throat: Oral mucosa is dry Cardiovascular: Tachycardia. Respiratory: No accessory muscle use or respiratory distress. Lungs are clear to auscultation, no wheezing, rales or rhonchi Musculoskeletal: normal ROM GI: Abdomen is soft, non-distended. Normal bowel sounds. No tenderness to palpation. No rebound, guarding, or rigidity noted. Neurological: A&O x4. No cranial nerve dysfunction observed. No truncal ataxia. Moves all extremities. Sensation intact. Resting tremor noted. Psychiatric: Cooperative and interactive. Normal mood and affect. Constitutional Vital Signs, click to edit/add: Last Vital Signs Temp 98.6 F 04/12/24 08:51 Pulse 148 H 04/12/24 08:51 Resp 20 04/12/24 08:51 BP 175/126 H 04/12/24 08:51 Pulse Ox 96 04/12/24 08:51 O2 Del Method Room Air 04/12/24 08:51 Course Vital Signs Vital signs: Vital Signs Temperature 98.6 F 04/12/24 08:51 Pulse Rate 148 H 04/12/24 08:51 Respiratory Rate 20 04/12/24 08:51 Blood Pressure 175/126 H 04/12/24 08:51 Pulse Oximetry 96 04/12/24 08:51 Oxygen Delivery Method Room Air 04/12/24 08:51 Temperature 98.6 F 04/12/24 08:51 Pulse Rate 148 H 04/12/24 08:51 Respiratory Rate 20 04/12/24 08:51 Blood Pressure 175/126 H 04/12/24 08:51 Pulse Oximetry 96 04/12/24 08:51 Oxygen Delivery Method Room Air 04/12/24 08:51 MDM - Alcohol MDM Narrative Medical decision making narrative: Patient was placed on equipment monitor phototypesetting and EKG obtained. Blood drawn and sent for evaluation. Seizure precautions initiated. The patient was ordered to receive normal saline IV fluid with thiamine and multivitamin, AKA banana bag. She was ordered to receive an additional liter of normal saline IV fluid. She was also given IV Valium, IV Zofran. Plan is to admit as inpatient once lab results reviewed. Pt with mild elevation of LFTs due to alcoholic hepatitis. Low magnesium - ordered to receive IV Magnesium. Call placed to hospitalist to discuss admission. Dr Cheung and I spoke at 0945 and he is familiar with this patient from prior admissions - he agreed to admit this patient to the ICU. Pt agreeable to admission. . Differential Diagnosis Differential diagnosis: Likely alcohol withdrawal delirium, hypomagnesemia, alcohol intoxication, alcohol ketoacidosis, alcohol withdrawal syndrome and alcohol withdrawal seizure Medical Records Attestation: I reviewed the patient's medical records. Lab Data Attestation: I reviewed the patient's lab results. Labs: Lab Results 04/12/24 Range/Units 09:03 WBC 4.5 (4.0-11.0) 10^3/uL RBC 5.05 (4.20-5.40) 10^6/uL Hgb 15.8 (12.0-16.0) g/dL Hct 47.5 (36.0-48.0) % MCV 94.1 (81.0-99.0) fL MCH 31.3 (26.7-34.0) pg MCHC 33.3 (29.9-35.2) g/dL RDW 13.5 (11.0-15.0) % Plt Count 399 (150-450) 10^3/uL MPV 9.1 L (9.5-13.5) fL Neut % (Auto) 66.4 (43.0-75.0) % Lymph % (Auto) 22.6 (20.5-60.0) % [place] % (Auto) 4.4 (1.7-12.0) % Eos % (Auto) 0.2 L (0.9-7.0) % Baso % (Auto) 6.2 H (0.2-2.0) % Neut # (Auto) 3.0 (1.4-6.5) 10^3/uL Lymph # (Auto) 1.0 L (1.2-3.8) 10^3/uL [place] # (Auto) 0.2 L (0.3-0.8) 10^3/uL Eos # (Auto) 0.0 (0.0-0.7) 10^3/uL Baso # (Auto) 0.3 H (0.0-0.1) 10^3/uL Abs Immat Gran (auto) 0.01 (0.00-0.03) 10^3/uL Imm/Tot Granulo (auto) 0.2 (0.0-0.5) % Sodium 143 (136-145) mmol/L Potassium 3.9 (3.5-5.1) mmol/L Chloride 100 (98-107) mmol/L Carbon Dioxide 23.1 (21.0-32.0) mmol/L Anion Gap 23.8 BUN 6.0 L (7.0-18.0) mg/dL Creatinine 0.84 (0.55-1.02) mg/dL Est GFR ( Amer) >60 (>=60 mL/min/1.73m^2) Est GFR (Non-Af Amer) >60 (>=60 mL/min/1.73m^2) BUN/Creatinine Ratio 7.1 Glucose 77 (74-106) mg/dL Calcium 9.3 (8.5-10.1) mg/dL Phosphorus 4.2 (2.6-4.7) mg/dL Magnesium 1.6 L (1.8-2.4) mg/dL Total Bilirubin 0.6 (0.2-1.0) mg/dL AST 147 H (15-37) U/L ALT 89 H (14-59) U/L Alkaline Phosphatase 156 H (46-116) U/L Total Protein 8.4 H (6.4-8.2) g/dL Albumin 4.3 (3.4-5.0) g/dL Globulin 4.1 g/dL Albumin/Globulin Ratio 1.0 Lipase 23.0 (16.0-77.0) U/L Ethanol Quant 439 mg/dL ECG Data Attestation: I personally reviewed and interpreted this ECG as follows: Interpretation: EKG interpretation: Emergency Department physician interpretation. sinus tachycardia at 145bpm. Normal axis, normal remaining intervals and no ST segment elevation or depression. Discharge Plan Discharge Chief Complaint: Alcohol Clinical Impression: Alcohol withdrawal syndrome, Alcohol intoxication, Hypomagnesemia, Acute alcoholic hepatitis Patient Disposition: Admitted As Inpatient Time of Disposition Decision: 09:12
[2024-04-12 09:19] LABS: Basophils Absolute Auto 0.3 10^3/uL (0.0-0.1); Basophils Percent Auto 6.2 % (0.2-2.0); Eosinophils Percent Auto 0.2 % (0.9-7.0); Hematocrit 47.5 % (36.0-48.0); Hemoglobin 15.8 g/dL (12.0-16.0); Immature Granulocytes Abs Auto 0.01 10^3/uL (0.00-0.03); Immature Granulocytes Pct Auto 0.2 % (0.0-0.5); Lymphocytes Percent Auto 22.6 % (20.5-60.0); Mean Corpuscular HGB Conc 33.3 g/dL (29.9-35.2); Mean Corpuscular Hemoglobin 31.3 pg (26.7-34.0); Mean Corpuscular Volume 94.1 fL (81.0-99.0); Mean Platelet Volume 9.1 fL (9.5-13.5); Monocytes Absolute Auto 0.2 10^3/uL (0.3-0.8); Monocytes Percent Auto 4.4 % (1.7-12.0); Neutrophils Percent Auto 66.4 % (43.0-75.0); Platelet Count 399 10^3/uL (150-450); Red Blood Count 5.05 10^6/uL (4.20-5.40); Red Cell Distribution Width 13.5 % (11.0-15.0); White Blood Count 4.5 10^3/uL (4.0-11.0)
[2024-04-12] MEDS: ONDANSETRON PF 4 MG/2 ML VIAL IV (09:27)
[2024-04-12] MEDS: DIAZEPAM 10 MG/2 ML SYRINGE 5 MG IV (09:28)
[2024-04-12] MEDS: MULTIVIT INFUSN,ADULT 4,VIT K 10 ML, FOLIC ACID 1 MG, THIAMINE HCL 100 MG in DEXTROSE 5... 1000 ML IV (09:29)
[2024-04-12 09:35] LABS: Alanine Aminotransferase 89 U/L (14-59); Albumin Level 4.3 g/dL (3.4-5.0); Alkaline Phosphatase 156 U/L (46-116); Anion Gap 23.8; Aspartate Amino Transferase 147 U/L (15-37); BUN Creatinine Ratio 7.1; Bilirubin Total 0.6 mg/dL (0.2-1.0); Calcium 9.3 mg/dL (8.5-10.1); Carbon Dioxide 23.1 mmol/L (21.0-32.0); Chloride 100 mmol/L (98-107); Estimated GFR (African America >60 (>=60 mL/min/1.73m^2); Estimated GFR (Non-African Ame >60 (>=60 mL/min/1.73m^2); Ethanol 439 mg/dL; Globulin 4.1 g/dL; Glucose 77 mg/dL (74-106); Magnesium 1.6 mg/dL (1.8-2.4); Phosphorus 4.2 mg/dL (2.6-4.7); Potassium 3.9 mmol/L (3.5-5.1); Sodium 143 mmol/L (136-145); Total Protein 8.4 g/dL (6.4-8.2)
[2024-04-12 09:43] LABS: Bilirubin Urine NEGATIVE (NEGATIVE); Blood Urine NEGATIVE (NEGATIVE); Clarity Urine CLEAR (CLEAR); Color Urine YELLOW (YELLOW); Glucose Urine UA NEGATIVE (NEGATIVE); Ketones Urine 15 mg/dL (NEGATIVE); Leukocyte Esterase Urine NEGATIVE (NEGATIVE); Nitrite Urine NEGATIVE (NEGATIVE); Protein Urine 30 mg/dL (NEG/TRACE); Specific Gravity Urine 1.015 (1.005-1.025)
[2024-04-12 09:47] LABS: Urine Microscopic Indicated YES
[2024-04-12 09:52] LABS: Amphetamine Screen Urine NEGATIVE (NEGATIVE); Barbiturates Screen Urine NEGATIVE (NEGATIVE); Benzodiazepines Screen Urine POSITIVE (NEGATIVE); Buprenorphine Screen Urine NEGATIVE (NEGATIVE); Cannabinoid Screen Urine POSITIVE (NEGATIVE); Cocaine Screen Urine NEGATIVE (NEGATIVE); Methadone Screen Urine NEGATIVE (NEGATIVE); Methamphetamines Screen Urine NEGATIVE (NEGATIVE); Opiate Screen Urine NEGATIVE (NEGATIVE); Oxycodone Screen Urine NEGATIVE (NEGATIVE); Phencyclidine Screen Urine NEGATIVE (NEGATIVE); Tricyclic Antidepressant Urine NEGATIVE (NEGATIVE)
[2024-04-12 09:54] LABS: Bacteria Urine TRACE #/HPF (NONE SEEN); Squamous Epithelial Cell Urine FEW #/LPF (NONE/RARE)
[2024-04-12 09:55] LABS: Cast Seen? SEEN #/LPF (NONE SEEN); Crystals Seen? None Seen #/HPF (None Seen); Hyaline Casts Urine FEW; Mucus Urine NONE SEEN (NONE SEEN); RBC Urine 0-2 #/HPF (0-2); Urine Culture Indicated NO; WBC Urine 0-2 #/HPF (NONE SEEN)
[2024-04-12] MEDS: MAGNESIUM SULFATE IN WATER 2 GM/50 ML PREMIX IV ×2 (10:02→14:00)
[2024-04-12] MEDS: 0.9 % SODIUM CHLORIDE 1,000 ML 999 ML IV (10:50)
[2024-04-12] MEDS: PROMETHAZINE HCL 12.5 MG in 0.9 % SODIUM CHLORIDE 50 ML 204 MG IV ×2 (12:37→19:43)
[2024-04-12] MEDS: PANTOPRAZOLE SODIUM 40 MG VIAL IV (12:37)
[2024-04-12] MEDS: LORAZEPAM 1 MG TABLET PO ×3 (12:38→19:41)
[2024-04-12] MEDS: ENOXAPARIN SODIUM 40 MG/0.4 ML SYRINGE SUBQ (12:38)
[2024-04-12] MEDS: MULTIVITAMIN TABLET 1 TAB PO (12:38)
[2024-04-12] MEDS: QUETIAPINE FUMARATE 25 MG TABLET PO ×2 (12:38→20:00)
[2024-04-12] MEDS: 0.9 % SODIUM CHLORIDE 1,000 ML 125 ML IV ×2 (12:39→19:41)
--- NOTE | 2024-04-12 14:09 | PM.HP ---
HPI H&P: HPI History of Present Illness Chief complaint: WITHDRAW FROM ALCOHOL HYPOMAGNESEMIA Narrative: 38-year-old female with history of alcoholic hepatitis, pancreatitis, alcohol abuse with history of alcohol withdrawal seizure and DTs presented to ER with 1 week history of nausea, anorexia and multiple episodes of vomiting along with epigastric abdominal pain. Patient reports that her last drink was last evening. She was recently admitted for alcohol withdrawal and remains sober for a week. She started to drink again about a week ago. Patient reports generalized weakness and feels that she is starting to have alcohol withdrawal. Upon my assessment-her CIWA was about 8. She denies diarrhea, constipation. She denies sick contacts or fever. She has hx of bipolart depression and FERNANDA and was tearful and upset about her current illness. She feels that her mental health medication need to be adjusted but she has had considerable difficulty attending appointments and with compliance due to her Alcoholism. Opioid HPI Opioid Management Most Recent Pain and Opioid Data: Last Pain Scale 2 03/30/24 15:55 03/30/24 Last ORT Total Score 5 03/28/24 17:14 03/28/24 Last ORT Risk Category Moderate Risk 03/28/24 17:14 03/28/24 Ur Phencyclidine Scrn Negative (NEGATIVE) 04/12/24 09:25 04/12/24 Review of Systems ROS Status of ROS 10 or more systems reviewed and unremarkable except as noted in history and below [facility] Medical History (Updated 04/12/24 @ 14:14 by Shaikh Jonatan MD) Alcoholic hepatitis ?K70.10 - Alcoholic hepatitis without ascites (ICD-10) Alcohol withdrawal syndrome ?F10.939 - Alcohol use, unspecified with withdrawal, unspecified (ICD-10) Hypothyroidism ?E03.9 - Hypothyroidism, unspecified (ICD-10) Type 2 diabetes mellitus ?E11.9 - Type 2 diabetes mellitus without complications (ICD-10) Bipolar 1 disorder ?F31.9 - Bipolar disorder, unspecified (ICD-10) HTN (hypertension) ?I10 - Essential (primary) hypertension (ICD-10) Alcoholic intoxication ?F10.929 - Alcohol use, unspecified with intoxication, unspecified (ICD-10) Alcohol abuse ?F10.10 - Alcohol abuse, uncomplicated (ICD-10) Abdominal pain ?R10.9 - Unspecified abdominal pain (ICD-10) Family History Sister Family history of hypertension Aunt Alcoholism Uncle Alcoholism Social History Within the past year, how often did you have a drink containing alcohol: 4 or more times a week Within the past year, how many standard drinks containing alcohol did you have on a typical day: 7 to 9 Within the past year, how often did you have six or more drinks on one occasion: daily or almost daily Total score: 10 Score interpretation: A score of 3 or more indicates drinking is likely to affect patient's safety. Smoking status: Current every day smoker Do you use any of these nicotine containing products: vaping products Non-prescribed substance use: denies use Highest level of school completed/degree received: high school graduate Little interest or pleasure in doing things: not at all Feeling down, depressed, or hopeless: not at all Meds Home Medications and Allergies Home Medications ?Medication ?Instructions ?Recorded ?Confirmed ?Type levothyroxine 50 mcg tablet 50 mcg PO DAILY 08/17/23 04/12/24 History quetiapine 25 mg tablet 25 mg PO BID 08/17/23 04/12/24 History amlodipine 10 mg tablet 10 mg PO DAILY 03/29/24 04/12/24 History atorvastatin 20 mg tablet 20 mg PO .QHS 03/29/24 04/12/24 History cholecalciferol (vitamin D3) 125 125 mcg PO DAILY 03/29/24 04/12/24 History mcg (5,000 unit) capsule gabapentin 100 mg capsule 200 mg PO TID 03/29/24 04/12/24 History hydroxyzine pamoate 50 mg capsule 50 mg PO Q6H PRN anxiety 03/29/24 04/12/24 History lamotrigine 25 mg tablet 25 mg PO .QHS 03/29/24 04/12/24 History mirtazapine 15 mg tablet 15 mg PO .QHS 03/29/24 04/12/24 History multivitamin with folic acid 400 1 tab PO DAILY 03/29/24 04/12/24 History mcg tablet (Daily-Augustina (with folic acid)) thiamine HCl (vitamin B1) 100 mg 100 mg PO BID 03/29/24 04/12/24 History tablet clonidine HCl 0.1 mg tablet 0.1 mg PO Q4H PRN Agitation #30 04/01/24 04/12/24 Rx tabs lorazepam 1 mg tablet 1 mg PO Q4H PRN Alcohol Withdrawal 04/01/24 04/12/24 Rx 5 days #30 tabs cephalexin 500 mg capsule 500 mg PO Q8H 7 days #21 caps 04/02/24 04/12/24 Rx doxycycline hyclate 100 mg tablet 100 mg PO BID 7 days #14 tabs 04/02/24 04/12/24 Rx Allergies Allergy/AdvReac Type Severity Reaction Status Date / Time lisinopril Allergy Severe Swelling Verified 04/12/24 08:50 of Lip/Tongue/Throat Exam Constitutional Vital Signs, click to edit/add: Last Vital Signs Temp 98.6 F 04/12/24 08:51 Pulse 110 H 04/12/24 10:45 Resp 18 04/12/24 11:30 BP 135/92 H 04/12/24 11:30 Pulse Ox 92 L 04/12/24 12:02 O2 Del Method Room Air 04/12/24 12:02 Documenting provider has reviewed patient's vital signs: yes Common normals: oriented x3 General appearance: cooperative, anxious, ill appearing and appears older than stated age HENID Common normals: normocephalic and head/scalp atraumatic Head and scalp: normocephalic and atraumatic Eye Common normals: conjunctivae normal and no scleral icterus Conjunctiva: conjunctiva(e) normal Respiratory Common normals: normal respiratory effort and clear to auscultation bilaterally Effort & inspection: able to speak in complete sentences Auscultation: clear to auscultation bilaterally Cardio Common normals: regular rate, S1 normal heart sound and S2 normal heart sound Rate: regular rate Heart sounds: S1 normal and S2 normal GI Common normals: Normal to inspection, nondistended, normoactive bowel sounds present, soft to palpation and no hepatosplenomegaly Palpation: soft, tender Details: epigastric and no hepatosplenomegaly Extremity Common normals: no clubbing, cyanosis or edema Neuro Common normals: oriented x3, moves all extremities, no focal motor deficits and no sensory deficits noted Psych Common normals: mental status grossly normal, thought process normal, denies hallucinations, denies homicidal ideation and denies suicidal ideation Results Labs Labs: Short CBC 04/12/24 Range/Units 09:03 WBC 4.5 (4.0-11.0) 10^3/uL Hgb 15.8 (12.0-16.0) g/dL Hct 47.5 (36.0-48.0) % Plt Count 399 (150-450) 10^3/uL BMP 04/12/24 09:03 Sodium 143 Potassium 3.9 Chloride 100 Carbon Dioxide 23.1 BUN 6.0 L Creatinine 0.84 Glucose 77 Calcium 9.3 Liver Function 04/12/24 Range/Units 09:03 Total Bilirubin 0.6 (0.2-1.0) mg/dL AST 147 H (15-37) U/L ALT 89 H (14-59) U/L Alkaline Phosphatase 156 H (46-116) U/L Albumin 4.3 (3.4-5.0) g/dL Urine 04/12/24 Range/Units 09:25 Urine Color Yellow (YELLOW) Urine Clarity Clear (CLEAR) Urine pH 6.0 (5.0-9.0) Ur Specific [place] 1.015 (1.005-1.025) Urine Protein 30 A (NEG/TRACE) mg/dL Urine Glucose (UA) Negative (NEGATIVE) mg/dL Assessment and Plan Assessment and Plan (1) Alcohol withdrawal syndrome: Assessment and Plan: Last drink yesterday in the evening. Showing signs of early alcohol withdrawal. Started on PO/IV ativan along with PO clonidine as needed. Monitor for alcohol withdrawal as per [facility] protocol. Monitor closely. Qualifiers: Complication of substance-induced condition: uncomplicated Qualified Code(s): F10.930 - Alcohol use, unspecified with withdrawal, uncomplicated (2) Epigastric abdominal pain: Assessment and Plan: Normal lipase. Likely due to alcoholic gastritis. Started on IV protonix. Monitor. (3) Transaminitis: Assessment and Plan: Monitor, likely due to alcohol use. No need for imaging as she had CT in 03/31 (4) Hypothyroidism: Assessment and Plan: C/w levothyroxine. Check TSH Qualifiers: Hypothyroidism type: unspecified Qualified Code(s): E03.9 - Hypothyroidism, unspecified (5) HTN (hypertension): Assessment and Plan: Resume amlodipine. IV hydralazine as needed Qualifiers: Hypertension type: primary hypertension Qualified Code(s): I10 - Essential (primary) hypertension (6) Bipolar 1 disorder: Assessment and Plan: Resumed patient's oral medications. On PO/IV ativan as needed for withdrawal. (7) Alcohol abuse: Assessment and Plan: Counseled on alcohol abuse. Discussed options like rehab, naltrexone and AA. Plan Needs inpatient treatment for alcohol withdrawal as showing signs of early alcohol withdrawal while her ETOH levels are 439 and has prior hx of DTs, alcohol withdrawal seizures and will need inpatient treatment/monitoring for around 72-96 hours.
[2024-04-12] MEDS: GABAPENTIN 100 MG CAPSULE 200 MG PO ×2 (14:57→21:19)
[2024-04-12 17:12] LABS: Glucometer 103 mg/dL (74-106)
[2024-04-12] MEDS: CLONIDINE HCL 0.1 MG TABLET PO (21:19)
[2024-04-12] MEDS: MIRTAZAPINE 15 MG TABLET PO (21:19)
[2024-04-13] VITALS (55 sets, daily range): BP systolic 116–155; BP diastolic 75–98; PULSE 58–95; TEMP 36.4–37.5; O2SAT 69–100
[2024-04-13] MEDS: PANTOPRAZOLE SODIUM 40 MG VIAL IV ×3 (01:25→23:30)
[2024-04-13] MEDS: LORAZEPAM 1 MG TABLET PO ×6 (01:25→21:50)
[2024-04-13] MEDS: HYDROXYZINE PAMOATE 25 MG CAPSULE 50 MG PO ×2 (01:25→21:50)
[2024-04-13] MEDS: 0.9 % SODIUM CHLORIDE 1,000 ML 125 ML IV (05:30)
[2024-04-13] MEDS: GABAPENTIN 100 MG CAPSULE 200 MG PO ×3 (05:30→21:50)
[2024-04-13] MEDS: LEVOTHYROXINE SODIUM 25 MCG TABLET 50 MCG PO (05:31)
[2024-04-13 06:04] LABS: Basophils Absolute Auto 0.1 10^3/uL (0.0-0.1); Basophils Percent Auto 3.3 % (0.2-2.0); Eosinophils Absolute Auto 0.1 10^3/uL (0.0-0.7); Eosinophils Percent Auto 1.4 % (0.9-7.0); Hematocrit 37.2 % (36.0-48.0); Hemoglobin 12.7 g/dL (12.0-16.0); Immature Granulocytes Abs Auto 0.05 10^3/uL (0.00-0.03); Immature Granulocytes Pct Auto 1.2 % (0.0-0.5); Lymphocytes Absolute Auto 1.9 10^3/uL (1.2-3.8); Lymphocytes Percent Auto 45.2 % (20.5-60.0); Mean Corpuscular HGB Conc 34.1 g/dL (29.9-35.2); Mean Corpuscular Hemoglobin 32.7 pg (26.7-34.0); Mean Corpuscular Volume 95.9 fL (81.0-99.0); Mean Platelet Volume 9.7 fL (9.5-13.5); Monocytes Absolute Auto 0.4 10^3/uL (0.3-0.8); Monocytes Percent Auto 9.5 % (1.7-12.0); Neutrophils Absolute Auto 1.7 10^3/uL (1.4-6.5); Neutrophils Percent Auto 39.4 % (43.0-75.0); Platelet Count 204 10^3/uL (150-450); Red Blood Count 3.88 10^6/uL (4.20-5.40); Red Cell Distribution Width 13.6 % (11.0-15.0); White Blood Count 4.2 10^3/uL (4.0-11.0)
[2024-04-13 06:30] LABS: Alanine Aminotransferase 58 U/L (14-59); Alkaline Phosphatase 102 U/L (46-116); Anion Gap 14.5; Aspartate Amino Transferase 80 U/L (15-37); BUN Creatinine Ratio 4.5; Bilirubin Total 0.9 mg/dL (0.2-1.0); Calcium 7.8 mg/dL (8.5-10.1); Chloride 108 mmol/L (98-107); Estimated GFR (African America >60 (>=60 mL/min/1.73m^2); Estimated GFR (Non-African Ame >60 (>=60 mL/min/1.73m^2); Globulin 3.1 g/dL; Glucose 63 mg/dL (74-106); Magnesium 1.9 mg/dL (1.8-2.4); Potassium 4.5 mmol/L (3.5-5.1); Sodium 143 mmol/L (136-145); Total Protein 6.1 g/dL (6.4-8.2)
[2024-04-13 06:45] LABS: Thyroid Stimulating Hormone 4.313 uIU/mL (0.358-3.740)
[2024-04-13] MEDS: PROMETHAZINE HCL 12.5 MG in 0.9 % SODIUM CHLORIDE 50 ML 204 MG IV ×2 (09:16→16:05)
[2024-04-13] MEDS: MULTIVITAMIN TABLET 1 TAB PO (09:17)
[2024-04-13] MEDS: QUETIAPINE FUMARATE 25 MG TABLET PO ×2 (09:17→21:50)
[2024-04-13] MEDS: ENOXAPARIN SODIUM 40 MG/0.4 ML SYRINGE SUBQ (09:17)
[2024-04-13] MEDS: SODIUM CHLORIDE 0.45 % 1,000 ML 75 ML IV (10:04)
--- NOTE | 2024-04-13 10:10 | P.IMPN_ITS ---
Progress Note: A&P Assessment and Plan (1) Alcohol withdrawal syndrome: Assessment and Plan: On PO/IV ativan along with clonidine. Avoid IV ativan if possible. Qualifiers: Complication of substance-induced condition: uncomplicated Qualified Code(s): F10.930 - Alcohol use, unspecified with withdrawal, uncomplicated (2) Epigastric abdominal pain: Assessment and Plan: Mild improvement. Normal Lipase. Tolerating diet now. C/w protonix. (3) Transaminitis: Assessment and Plan: Improved. (4) Hypothyroidism: Assessment and Plan: C/w levothyroxine Qualifiers: Hypothyroidism type: unspecified Qualified Code(s): E03.9 - Hypothyroidism, unspecified (5) HTN (hypertension): Assessment and Plan: Stable BP. c/w amlodipine Qualifiers: Hypertension type: primary hypertension Qualified Code(s): I10 - Essential (primary) hypertension (6) Bipolar 1 disorder: Assessment and Plan: Stable mood. No SI/HI. (7) Alcohol abuse: Assessment and Plan: Counseled on alcohol abuse Plan Will need continued inpatient monitoring and treatment of alcohol withdrawal as previous hx of DTs and withdrawal seizures. Patient's last drink within 4 hours Internal Medicine - PN: Subj Subjective Interval history: Seen and examined. No vomiting. Still quite nauseous but tolerating liquid diet. Still complaining of abdominal pain. Mild improvement overall. She feels that clonidine helps a lot. Exam Constitutional Vital Signs, click to edit/add: Last Vital Signs Temp 98.6 F 04/13/24 07:31 Pulse 68 04/13/24 07:31 Resp 18 04/13/24 07:31 BP 138/98 H 04/13/24 07:31 Pulse Ox 100 04/13/24 07:31 O2 Del Method Room Air 04/13/24 03:42 Documenting provider has reviewed patient's vital signs: yes Common normals: oriented x3 General appearance: cooperative and appears older than stated age Respiratory Common normals: normal respiratory effort and clear to auscultation bilaterally Effort & inspection: able to speak in complete sentences Auscultation: clear to auscultation bilaterally Cardio Common normals: regular rate, S1 normal heart sound and S2 normal heart sound Rate: regular rate Heart sounds: S1 normal and S2 normal GI Common normals: Normal to inspection, nondistended, normoactive bowel sounds present, soft to palpation and no hepatosplenomegaly Palpation: soft, tender Details: epigastric and no hepatosplenomegaly Extremity Common normals: no clubbing, cyanosis or edema Neuro Common normals: oriented x3, moves all extremities, no focal motor deficits and no sensory deficits noted Psych Common normals: mental status grossly normal, thought process normal, denies hallucinations, denies homicidal ideation and denies suicidal ideation Internal Medicine - PN: Obj Da Labs Labs: Laboratory Results - last 24 hr 04/12/24 04/13/24 17:02 05:38 WBC 4.2 RBC 3.88 L Hgb 12.7 Hct 37.2 MCV 95.9 MCH 32.7 MCHC 34.1 RDW 13.6 Plt Count 204 MPV 9.7 Neut % (Auto) 39.4 L Lymph % (Auto) 45.2 Schleicher % (Auto) 9.5 Eos % (Auto) 1.4 Baso % (Auto) 3.3 H Neut # (Auto) 1.7 Lymph # (Auto) 1.9 Schleicher # (Auto) 0.4 Eos # (Auto) 0.1 Baso # (Auto) 0.1 Abs Immat Gran (auto) 0.05 H Imm/Tot Granulo (auto) 1.2 H Sodium 143 Potassium 4.5 Chloride 108 H Carbon Dioxide 25.0 Anion Gap 14.5 BUN 3.0 L Creatinine 0.66 Est GFR ( Amer) >60 Est GFR (Non-Af Amer) >60 BUN/Creatinine Ratio 4.5 Glucose 63 L Calcium 7.8 L Magnesium 1.9 Total Bilirubin 0.9 AST 80 H ALT 58 Alkaline Phosphatase 102 Total Protein 6.1 L Albumin 3.0 L Globulin 3.1 Albumin/Globulin Ratio 1.0 TSH 4.313 H POC Glucose 103
[2024-04-13] MEDS: MIRTAZAPINE 15 MG TABLET PO (21:50)
[2024-04-13] MEDS: POLYETHYLENE GLYCOL 3350 17 GM POWDER PACKET PO (21:51)
[2024-04-14] VITALS (11 sets, daily range): BP systolic 123–135; BP diastolic 75–83; PULSE 65–76; TEMP 36.9–37.4; O2SAT 65–98
[2024-04-14] MEDS: LORAZEPAM 1 MG TABLET PO ×2 (04:47→09:54)
[2024-04-14] MEDS: LEVOTHYROXINE SODIUM 25 MCG TABLET 50 MCG PO (04:48)
[2024-04-14] MEDS: GABAPENTIN 100 MG CAPSULE 200 MG PO (04:48)
[2024-04-14 06:00] LABS: Basophils Absolute Auto 0.1 10^3/uL (0.0-0.1); Basophils Percent Auto 2.4 % (0.2-2.0); Eosinophils Absolute Auto 0.1 10^3/uL (0.0-0.7); Eosinophils Percent Auto 1.6 % (0.9-7.0); Hematocrit 38.7 % (36.0-48.0); Hemoglobin 12.6 g/dL (12.0-16.0); Immature Granulocytes Abs Auto 0.01 10^3/uL (0.00-0.03); Immature Granulocytes Pct Auto 0.3 % (0.0-0.5); Lymphocytes Absolute Auto 1.7 10^3/uL (1.2-3.8); Lymphocytes Percent Auto 45.3 % (20.5-60.0); Mean Corpuscular HGB Conc 32.6 g/dL (29.9-35.2); Mean Corpuscular Hemoglobin 31.2 pg (26.7-34.0); Mean Corpuscular Volume 95.8 fL (81.0-99.0); Mean Platelet Volume 9.9 fL (9.5-13.5); Monocytes Absolute Auto 0.4 10^3/uL (0.3-0.8); Monocytes Percent Auto 9.7 % (1.7-12.0); Neutrophils Absolute Auto 1.5 10^3/uL (1.4-6.5); Neutrophils Percent Auto 40.7 % (43.0-75.0); Platelet Count 210 10^3/uL (150-450); Red Blood Count 4.04 10^6/uL (4.20-5.40); Red Cell Distribution Width 13.4 % (11.0-15.0); White Blood Count 3.7 10^3/uL (4.0-11.0)
[2024-04-14 06:15] LABS: Alanine Aminotransferase 49 U/L (14-59); Alkaline Phosphatase 105 U/L (46-116); Anion Gap 13.4; Aspartate Amino Transferase 65 U/L (15-37); BUN Creatinine Ratio 2.9; Bilirubin Total 0.8 mg/dL (0.2-1.0); Calcium 9.1 mg/dL (8.5-10.1); Carbon Dioxide 27.6 mmol/L (21.0-32.0); Chloride 106 mmol/L (98-107); Estimated GFR (African America >60 (>=60 mL/min/1.73m^2); Estimated GFR (Non-African Ame >60 (>=60 mL/min/1.73m^2); Globulin 3.1 g/dL; Glucose 99 mg/dL (74-106); Sodium 143 mmol/L (136-145); Total Protein 6.1 g/dL (6.4-8.2)
[2024-04-14] MEDS: ENOXAPARIN SODIUM 40 MG/0.4 ML SYRINGE SUBQ (09:54)
[2024-04-14] MEDS: QUETIAPINE FUMARATE 25 MG TABLET PO (09:54)
[2024-04-14] MEDS: MULTIVITAMIN TABLET 1 TAB PO (09:54)
--- NOTE | 2024-04-14 10:00 | P.DS_ITS ---
DS: Providers Provider Date of admission: 04/12/24 10:55 Primary care physician: Non-Staff PhysicianMD Admitting clinician: Shaikh Jonatan Attending physician on admission: Shaikh Jonatan Consults: 04/12/24 11:30 Physical Therapy Eval and Treat Routine Reason for consultation: Ambulatory dysfunction/weakness Attending physician on discharge: Shaikh Jonatan Discharging clinician: Shaikh Jonatan Anticipated date of discharge: 04/14/24 DS: Diagnosis Discharge Diagnosis (1) Alcohol withdrawal syndrome: Qualifiers: Complication of substance-induced condition: uncomplicated Qualified Code(s): F10.930 - Alcohol use, unspecified with withdrawal, uncomplicated (2) Epigastric abdominal pain: (3) Transaminitis: (4) Hypothyroidism: Qualifiers: Hypothyroidism type: unspecified Qualified Code(s): E03.9 - Hypothyroidism, unspecified (5) HTN (hypertension): Qualifiers: Hypertension type: primary hypertension Qualified Code(s): I10 - Essential (primary) hypertension (6) Bipolar 1 disorder: (7) Alcohol abuse: DS: Summary Hospital Course Hospital Course: 38-year-old female with history of alcoholic hepatitis, pancreatitis, alcohol abuse with history of alcohol withdrawal seizure and DTs presented to ER with 1 week history of nausea, anorexia and multiple episodes of vomiting along with epigastric abdominal pain. Patient's last drink was one day before admission. She was recently admitted for alcohol withdrawal and remained sober for a week. She started to drink again about a week ago. Patient p/w generalized weakness and felt that she was starting to have alcohol withdrawal. Patient was admitted for alcohol withdrawal, intractable nausea and vomiting. CIWA protocol was initiated and patient received Ativan for Alcohol withdrawal. She received Promethazine for nausea/vomiting. She also received protonix for abdominal pain, presumed to be due to alcohol induced gastritis. Patient doing well today. Has not required PRN Ativan since last night. Stable for discharge. She will be discharged with PO clonidine as needed for withdrawal symptoms. She will also need PO omeprazole for GERD/gastritis. Patient counseled on alcohol abuse. She was also recommended to have outpatient EGD. Status at Discharge Functional status at discharge: independent ambulation Overall status at discharge: patient is back to baseline Time Spent with Patient Time attestation: Total time spent providing and/or coordinating discharge services: Time spent: greater than 30 minutes Exam Constitutional Vital Signs, click to edit/add: Last Vital Signs Temp 99.3 F 04/14/24 08:02 Pulse 76 04/14/24 09:55 Resp 16 04/14/24 08:02 BP 123/83 04/14/24 03:56 Pulse Ox 98 04/14/24 08:02 O2 Del Method Room Air 04/14/24 08:02 Documenting provider has reviewed patient's vital signs: yes Common normals: oriented x3 General appearance: cooperative and appears older than stated age Respiratory Common normals: normal respiratory effort and clear to auscultation bilaterally Effort & inspection: able to speak in complete sentences Auscultation: clear to auscultation bilaterally Cardio Common normals: regular rate, S1 normal heart sound and S2 normal heart sound Rate: regular rate Heart sounds: S1 normal and S2 normal GI Common normals: Normal to inspection, nondistended, normoactive bowel sounds present, soft to palpation and no hepatosplenomegaly Palpation: soft and no hepatosplenomegaly Extremity Common normals: no clubbing, cyanosis or edema Neuro Common normals: oriented x3, moves all extremities, no focal motor deficits and no sensory deficits noted Psych Common normals: mental status grossly normal, thought process normal, denies hallucinations, denies homicidal ideation and denies suicidal ideation DS: Data Data Completed and Pending Labs on day of discharge: Labs from last 24 hours 04/14/24 05:37 WBC 3.7 L RBC 4.04 L Hgb 12.6 Hct 38.7 MCV 95.8 MCH 31.2 MCHC 32.6 RDW 13.4 Plt Count 210 MPV 9.9 Neut % (Auto) 40.7 L Lymph % (Auto) 45.3 [place] % (Auto) 9.7 Eos % (Auto) 1.6 Baso % (Auto) 2.4 H Neut # (Auto) 1.5 Lymph # (Auto) 1.7 [place] # (Auto) 0.4 Eos # (Auto) 0.1 Baso # (Auto) 0.1 Abs Immat Gran (auto) 0.01 Imm/Tot Granulo (auto) 0.3 Sodium 143 Potassium 4.0 Chloride 106 Carbon Dioxide 27.6 Anion Gap 13.4 BUN 2.0 L Creatinine 0.69 Est GFR ( Amer) >60 Est GFR (Non-Af Amer) >60 BUN/Creatinine Ratio 2.9 Glucose 99 Calcium 9.1 Total Bilirubin 0.8 AST 65 H ALT 49 Alkaline Phosphatase 105 Total Protein 6.1 L Albumin 3.0 L Globulin 3.1 Albumin/Globulin Ratio 1.0 Discharge Plan Discharge Disposition: Home, Self-Care Discharge Medications: New promethazine 12.5 mg tablet 12.5 mg PO Q6H PRN (Reason: nausea and vomiting) Qty: 20 0RF Rx Instructions: 3 doses during day; last dose no later than 4 hr before bedtime Continued levothyroxine 50 mcg tablet 50 mcg PO DAILY Patient Comments: LAST FILLED 12/17/23 quetiapine 25 mg tablet 25 mg PO BID mirtazapine 15 mg tablet 15 mg PO .QHS Qty: 30 0RF atorvastatin 20 mg tablet 20 mg PO .QHS thiamine HCl (vitamin B1) 100 mg tablet 100 mg PO BID hydroxyzine pamoate 50 mg capsule 50 mg PO Q6H PRN (Reason: anxiety) lamotrigine 25 mg tablet 25 mg PO .QHS amlodipine 10 mg tablet 10 mg PO DAILY gabapentin 100 mg capsule 200 mg PO TID cholecalciferol (vitamin D3) 125 mcg (5,000 unit) capsule 125 mcg PO DAILY multivitamin with folic acid [Daily-Augustina (with folic acid)] 400 mcg tablet 1 tab PO DAILY Changed clonidine HCl 0.1 mg Tablet 0.1 mg PO Q6H PRN (Reason: Agitation) Qty: 30 0RF Discontinued doxycycline hyclate 100 mg tablet 100 mg PO BID 7 Days Qty: 14 0RF cephalexin 500 mg capsule 500 mg PO Q8H 7 Days Qty: 21 0RF lorazepam 1 mg Tablet 1 mg PO Q4H PRN (Reason: Alcohol Withdrawal) 5 Days Qty: 30 0RF Activity: increase activity as tolerated Diet: advance to your usual diet Print Language: Beninese Forms: Portal Instructions Follow Up Appointments: f/u with PCP in one week
--- NOTE | 2024-04-14 10:02 | CM.NOTE ---
Rounds made with Dr. Cheung, pt will discharge to home today and f/u with PCP. SW will speak with pt prior to discharge regarding alcohol and addiction for plan of care. Updated [facility] brake tester to schedule F/U.
[2024-04-14] MEDS: PROMETHAZINE HCL 12.5 MG in 0.9 % SODIUM CHLORIDE 50 ML 204 MG IV (10:14)
--- NOTE | 2024-04-14 10:19 | SWNOTE1 ---
SW met with pt to discuss dc needs. Pt lives at home with her and kids. Pt's plan is to quit drinking. Pt does not want to go to rehab for alcohol as she has been to [facility] in the past. Pt plans on going to AA meetings at [facility] and to get a sponsor to help her quit. Pt voiced no further needs at this time. SW to follow as needed.
--- NOTE | 2024-04-17 15:15 | CM.DCFOLLOWU ---
04/17- 1st attempt. No answer
--- NOTE | 2024-04-18 14:32 | CM.DCFOLLOWU ---
Person spoke with: Shikha How are you feeling? Feeling better How is your pain? No pain Did you understand your discharge instructions? Yes Do you have any questions about your discharge instructions? No Were you given any prescriptions at discharge? Yes Were you able to get your prescriptions filled? Yes Do you understand how to take your medications as ordered? Yes Do you have any questions about your follow up appointment and do you plan to keep your follow up appointment? I had to reschedule appt it was scheduled today. Pt already rescheduled for next week Is there anything else that you would like to discuss? No Questions/Comments/Concerns/Other:
== END 2024-04-14 12:35 | disposition home or self-care (01) | DRG 897 ==
LOC: ER 09:30 → ICU 10:58 → MS 04-13 15:51
PROVIDERS: Admitting Provider Internal Medicine; Emergency Provider Emergency Medicine; Visit Provider Internal Medicine
DX: F10.239 Alcohol dependence with withdrawal, unspecified (principal); F10.229 Alcohol dependence with intoxication, unspecified; K29.20 Alcoholic gastritis without bleeding; K70.10 Alcoholic hepatitis without ascites; E83.42 Hypomagnesemia; E03.9 Hypothyroidism, unspecified; F17.290 Nicotine dependence, other tobacco product, uncomplicated; F31.9 Bipolar disorder, unspecified; F41.1 Generalized anxiety disorder; I10 Essential (primary) hypertension; K21.9 Gastro-esophageal reflux disease without esophagitis; Y90.8 Blood alcohol level of 240 mg/100 ml or more; Z79.890 Hormone replacement therapy; Z79.899 Other long term (current) drug therapy; Z88.8 Allergy status to other drugs, medicaments and biological substances
CPT/HCPCS: 36415; 80053; 80307; 80320; 81001; 82948; 83690; 83735; 84100; 84443; 85025; 93005; 94761; 96365; 96368; 96375; 97161; 99285; J1650; J2405; J2550; J3360; J3411; J3475; Q0177

== ENCOUNTER 2024-04-22 18:58 | Inpatient (IN) | payer OTHER, BC, SELFPAY ==
[2024-04-22] VITALS (30 sets, daily range): BP systolic 90–168; BP diastolic 52–121; PULSE 64–117; TEMP 36.3–36.8; O2SAT 68–100; BMI 21.0; BMI 22.2
--- NOTE | 2024-04-22 19:14 | ECG_ITS ---
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
--- NOTE | 2024-04-22 19:25 | ED_ITS ---
HPI - Alcohol General Chief Complaint: Alcohol Stated Complaint: intoxicated going through withdrawl Time Seen by Provider: 04/22/24 19:10 Source: patient Mode of arrival: walk-in History of Present Illness HPI narrative: This 38-year-old male with a history of alcohol dependence presents for evaluation of alcohol withdrawal. The patient states she drinks every day. She drinks about 750 milliliters of vodka a day. Her last drink was about 6 hours ago. Her dropped her off at the emergency department today. She is here by herself. She is tearful and anxious stating that she feels like she is going into withdrawal. She was admitted to this facility around the and was discharged home. Last summer she was treated for alcohol dependence at [facility]. She states she was sent home on naltrexone but that did not help her. She states she wants to quit drinking but cannot stop on her own. She denies that she is suicidal. She is tearful stating that she lives at home with her and has 5 children and she is a terrible mother due to her alcohol use. She states she barely eats. She would like to gain 20 pounds but barely eats. She has also not been taking her blood pressure medication or her psychiatric medications for about 2 months. She denies any diarrhea. She has no chest pain or shortness of breath. Related Data Home Medications ?Medication ?Instructions ?Recorded ?Confirmed levothyroxine 50 mcg tablet 50 mcg PO DAILY 08/17/23 04/12/24 quetiapine 25 mg tablet 25 mg PO BID 08/17/23 04/12/24 amlodipine 10 mg tablet 10 mg PO DAILY 03/29/24 04/12/24 atorvastatin 20 mg tablet 20 mg PO .QHS 03/29/24 04/12/24 cholecalciferol (vitamin D3) 125 125 mcg PO DAILY 03/29/24 04/12/24 mcg (5,000 unit) capsule gabapentin 100 mg capsule 200 mg PO TID 03/29/24 04/12/24 hydroxyzine pamoate 50 mg capsule 50 mg PO Q6H PRN anxiety 03/29/24 04/12/24 lamotrigine 25 mg tablet 25 mg PO .QHS 03/29/24 04/12/24 multivitamin with folic acid 400 1 tab PO DAILY 12/21/24 01/04/25 mcg tablet (Daily-Augustina (with folic acid)) thiamine HCl (vitamin B1) 100 mg 100 mg PO BID 03/29/24 04/12/24 tablet Previous Rx's ?Medication ?Instructions ?Recorded clonidine HCl 0.1 mg tablet 0.1 mg PO Q6H PRN Agitation #30 04/14/24 tabs mirtazapine 15 mg tablet 15 mg PO .QHS #30 tabs 04/14/24 omeprazole 40 mg capsule,delayed 40 mg PO DAILY #30 caps 04/14/24 release promethazine 12.5 mg tablet 12.5 mg PO Q6H PRN nausea and 04/14/24 vomiting #20 tabs Allergies Allergy/AdvReac Type Severity Reaction Status Date / Time lisinopril Allergy Severe Swelling Verified 04/12/24 08:50 of Lip/Tongue/Throat Review of Systems ROS Status of ROS 10 or more systems reviewed and unremark able except as noted in history and below [facility] Medical History (Updated 04/22/24 @ 22:25 by Terese Medina MD) Alcoholic hepatitis ?K70.10 - Alcoholic hepatitis without ascites (ICD-10) Alcohol withdrawal syndrome ?F10.939 - Alcohol use, unspecified with withdrawal, unspecified (ICD-10) Hypothyroidism ?E03.9 - Hypothyroidism, unspecified (ICD-10) Type 2 diabetes mellitus ?E11.9 - Type 2 diabetes mellitus without complications (ICD-10) Bipolar 1 disorder ?F31.9 - Bipolar disorder, unspecified (ICD-10) HTN (hypertension) ?I10 - Essential (primary) hypertension (ICD-10) Alcoholic intoxication ?F10.929 - Alcohol use, unspecified with intoxication, unspecified (ICD-10) Alcohol abuse ?F10.10 - Alcohol abuse, uncomplicated (ICD-10) Abdominal pain ?R10.9 - Unspecified abdominal pain (ICD-10) Family History Sister Family history of hypertension Aunt Alcoholism Uncle Alcoholism Social History Within the past year, how often did you have a drink containing alcohol: 4 or more times a week Within the past year, how many standard drinks containing alcohol did you have on a typical day: 7 to 9 Within the past year, how often did you have six or more drinks on one occasion: daily or almost daily Total score: 10 Score interpretation: A score of 3 or more indicates drinking is likely to affect patient's safety. Smoking status: Current every day smoker Do you use any of these nicotine containing products: vaping products Non-prescribed substance use: denies use Highest level of school completed/degree received: high school graduate Little interest or pleasure in doing things: not at all Feeling down, depressed, or hopeless: not at all Exam Narrative Exam Narrative: Vital signs and Nursing Notes reviewed: Patient is afebrile, she is tachycardic with a pulse of 117 blood pressure is elevated 168/120, she is not hypoxic with pulse ox of 100% on room air General: Thin, cachectic adult female, no respiratory distress, she is tearful, strong smell of alcohol on her breath HEENT: Normocephalic atraumatic, mucous membranes are dry, no scleral icterus, mild tongue fasciculations Neck: Supple, no meningeal signs, no anterior or posterior cervical lymphadenopathy Chest: Lungs are clear to auscultation with good air entry, there is no wheezing rhonchi or rales appreciated no accessory muscle use, patient is speaking in complete sentences-no chest wall tenderness to palpation CVS: Regular rate and rhythm S1-S2, tachycardic at 117 at triage, 110 on exam no murmurs rubs or gallops, pulses are brisk and equal bilaterally ABD: Soft, nondistended, nontender, no rebound guarding or rigidity, bowel s ounds are normal, no pulsatile masses appreciated Extremities: Moving all extremities, no lower extremity tenderness or swelling noted, negative Homans' sign, pulses are brisk and equal bilaterally Skin: Normal in appearance without rash,pallor, petechiae or purpura Neuro: No focal deficits, tremulous and tearful Constitutional Vital Signs, click to edit/add: Last Vital Signs Temp 98.2 F 04/22/24 19:08 Pulse 82 04/22/24 22:10 Resp 16 04/22/24 19:38 BP 110/67 04/22/24 22:00 Pulse Ox 99 04/22/24 22:10 Course Vital Signs Vital signs: Vital Signs Temperature 98.2 F 04/22/24 19:08 Pulse Rate 117 H 04/22/24 19:08 Respiratory Rate 18 04/22/24 19:08 Blood Pressure 168/121 H 04/22/24 19:08 Pulse Oximetry 100 04/22/24 19:08 Temperature 98.2 F 04/22/24 19:08 Pulse Rate 82 04/22/24 22:10 Respiratory Rate 16 04/22/24 19:38 Blood Pressure 110/67 04/22/24 22:00 Pulse Oximetry 99 04/22/24 22:10 MDM - Alcohol MDM Narrative Medical decision making narrative: This 38-year-old female with a history of alcohol dependence presents for evaluation and concerns that she is going into withdrawal. The patient states that she drinks 750 mL of vodka every day. She states her last drink before coming to the emergency department was 6 hours prior to coming. The patient is tearful and intoxicated upon arrival. She states that she has a terrible mother to her 5 children. She lives at home with her kids and her . 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 The patient is extremely thin upon arrival. She was tachycardic and tearful. She had mild tongue fasciculations but otherwise did not show any signs of acute alcohol withdrawal. An EKG done upon arrival with a sinus tachycardia at 109 bpm. An IV was placed and she was given a milligram of Ativan and a banana bag. Routine labs are reviewed. She has a low white count but this is consistent with prior labs. Her labs are basically the same as they were when she was seen in this emergency department in March. She has a normal BUN and creatinine. LFTs are mildly elevated in keeping with her history of alcohol abuse. Her alcohol is markedly elevated at 467. Museum was mildly low at 1.6 and she was given 2 g of IV magnesium to replace this. Patient has been admitted here several times and is also recently been at [facility] recently. She states that after being discharged from there she was on naltrexone but this did not work for her. She is tearful stating that she wants to stop drinking but does not know how. I discussed her labs with her, with her alcohol being 467 she is likely not at risk for withdrawal. The patient request to be admitted to the hospital because she states she cannot function at home at this time. She was not forthcoming about what is going on at home that keeps her from wanting to return home at this time but she will be admitted to the hospitalist service for further evaluation and treatment. She does not deny that she would be amenable to returning to an alcohol rehabilitation facility. Lab Data Attestation: I reviewed the patient's lab results. Labs: Lab Results 04/22/24 Range/Units 19:36 WBC 3.9 L (4.0-11.0) 10^3/uL RBC 5.22 (4.20-5.40) 10^6/uL Hgb 16.2 H (12.0-16.0) g/dL Hct 50.1 H (36.0-48.0) % MCV 96.0 (81.0-99.0) fL MCH 31.0 (26.7-34.0) pg MCHC 32.3 (29.9-35.2) g/dL RDW 14.0 (11.0-15.0) % Plt Count 301 (150-450) 10^3/uL MPV 9.4 L (9.5-13.5) fL Neut % (Auto) 65.5 (43.0-75.0) % Lymph % (Auto) 26.8 (20.5-60.0) % [place] % (Auto) 3.8 (1.7-12.0) % Eos % (Auto) 0.0 L (0.9-7.0) % Baso % (Auto) 3.6 H (0.2-2.0) % Neut # (Auto) 2.6 (1.4-6.5) 10^3/uL Lymph # (Auto) 1.1 L (1.2-3.8) 10^3/uL [place] # (Auto) 0.2 L (0.3-0.8) 10^3/uL Eos # (Auto) 0.0 (0.0-0.7) 10^3/uL Baso # (Auto) 0.1 (0.0-0.1) 10^3/uL Abs Immat Gran (auto) 0.01 (0.00-0.03) 10^3/uL Imm/Tot Granulo (auto) 0.3 (0.0-0.5) % Sodium 145 (136-145) mmol/L Potassium 4.2 (3.5-5.1) mmol/L Chloride 104 (98-107) mmol/L Carbon Dioxide 19.5 L (21.0-32.0) mmol/L Anion Gap 25.7 BUN 5.0 L (7.0-18.0) mg/dL Creatinine 0.85 (0.55-1.02) mg/dL Est GFR ( Amer) >60 (>=60 mL/min/1.73m^2) Est GFR (Non-Af Amer) >60 (>=60 mL/min/1.73m^2) BUN/Creatinine Ratio 5.9 Glucose 67 L (74-106) mg/dL Calcium 9.2 (8.5-10.1) mg/dL Magnesium 1.6 L (1.8-2.4) mg/dL Total Bilirubin 0.5 (0.2-1.0) mg/dL AST 103 H (15-37) U/L ALT 80 H (14-59) U/L Alkaline Phosphatase 146 H (46-116) U/L Total Protein 8.7 H (6.4-8.2) g/dL Albumin 4.4 (3.4-5.0) g/dL Globulin 4.3 g/dL Albumin/Globulin Ratio 1.0 Ethanol Quant 467 mg/dL ECG Data Attestation: I personally reviewed and interpreted this ECG as follows: (Sinus tachycardia at 109 bpm, normal axis, normal intervals, no acute ST segment elevation or T wave inversion) Discharge Plan Discharge Chief Complaint: Alcohol Clinical Impression: Alcoholic intoxication, Hypomagnesemia Patient Disposition: Admitted As Inpatient Time of Disposition Decision: 22:25 Condition: Fair
[2024-04-22 19:51] LABS: Basophils Absolute Auto 0.1 10^3/uL (0.0-0.1); Basophils Percent Auto 3.6 % (0.2-2.0); Hematocrit 50.1 % (36.0-48.0); Hemoglobin 16.2 g/dL (12.0-16.0); Immature Granulocytes Abs Auto 0.01 10^3/uL (0.00-0.03); Immature Granulocytes Pct Auto 0.3 % (0.0-0.5); Lymphocytes Absolute Auto 1.1 10^3/uL (1.2-3.8); Lymphocytes Percent Auto 26.8 % (20.5-60.0); Mean Corpuscular HGB Conc 32.3 g/dL (29.9-35.2); Mean Platelet Volume 9.4 fL (9.5-13.5); Monocytes Absolute Auto 0.2 10^3/uL (0.3-0.8); Monocytes Percent Auto 3.8 % (1.7-12.0); Neutrophils Absolute Auto 2.6 10^3/uL (1.4-6.5); Neutrophils Percent Auto 65.5 % (43.0-75.0); Platelet Count 301 10^3/uL (150-450); Red Blood Count 5.22 10^6/uL (4.20-5.40); White Blood Count 3.9 10^3/uL (4.0-11.0)
[2024-04-22] MEDS: 0.9 % SODIUM CHLORIDE 1,000 ML 1000 ML IV (19:53)
[2024-04-22] MEDS: MULTIVIT INFUSN,ADULT 4,VIT K 10 ML, FOLIC ACID 1 MG, THIAMINE HCL 100 MG in DEXTROSE 5... 250 ML IV (19:53)
[2024-04-22] MEDS: ONDANSETRON PF 4 MG/2 ML VIAL IV (19:53)
[2024-04-22] MEDS: LORAZEPAM 2 MG/ML VIAL 1 MG IV (19:54)
[2024-04-22 20:16] LABS: Alanine Aminotransferase 80 U/L (14-59); Albumin Level 4.4 g/dL (3.4-5.0); Alkaline Phosphatase 146 U/L (46-116); Anion Gap 25.7; Aspartate Amino Transferase 103 U/L (15-37); BUN Creatinine Ratio 5.9; Bilirubin Total 0.5 mg/dL (0.2-1.0); Calcium 9.2 mg/dL (8.5-10.1); Carbon Dioxide 19.5 mmol/L (21.0-32.0); Chloride 104 mmol/L (98-107); Estimated GFR (African America >60 (>=60 mL/min/1.73m^2); Estimated GFR (Non-African Ame >60 (>=60 mL/min/1.73m^2); Ethanol 467 mg/dL; Globulin 4.3 g/dL; Glucose 67 mg/dL (74-106); Magnesium 1.6 mg/dL (1.8-2.4); Potassium 4.2 mmol/L (3.5-5.1); Sodium 145 mmol/L (136-145); Total Protein 8.7 g/dL (6.4-8.2)
[2024-04-22] MEDS: MAGNESIUM SULFATE IN WATER 2 GM/50 ML PREMIX IV (22:15)
--- OUTSIDE RECORDS SUMMARY | 2024-04-22 23:31 | XMS_ITS | CCD ---
Author Organization [facility] Care Team Providers [employer] Name Role Phone [facility] Primary Care Provider DO Hal Orozco Emergency Provider CATIA Blanca Attending Provider MD Delfino Reese Attending Provider BRADY Mcneill Primary Care Provider [phone] AVERY BLANCA Primary Care Physician MAGGY WORLEY [...] Care Provider MD Jack Kwon Attending Provider [facility] Primary Care Provider CATIA Kerr Emergency Provider MD Jack Kwon Admit Provider EFFIE Deal Other Provider Unavailable EFFIE Romero Other Provider Unavailable EFFIE Thornton Other Provider Unavailable EFFIE Tom Other Provider Unavailable Mio RN Estella Other Provider Unavailable DO Chandan Whipple Other Provider [phone] MD Cisco Calderon Other Provider DO Jaime Alcocer Other Provider MD Srini Chavez Other Provider MD Ericka Dunn Other Provider MD Cm Escalona Other Provider Unavailable CATIA Bailon Other Provider MD Giuliano Serna Other Provider [phone] MD Albin Smith Other Provider MD [...] Mcguire Other Provider CATIA Woods Other Provider [phone] MD Ashlee Osuna Other Provider MD Dariel Spence Other Provider [phone] DangeloDO Ermias forbes T Other Provider [phone] DO Gladys Matthews Other Provider MD Chato Juarez Other Provider MD Delma Kuo Other Provider CATIA Azar Other Provider MD Gurvinder Sosa Other Provider MD Sajan Knapp Other Provider EFFIE Carr Other Provider Unavailable Avery Blanca Primary Care Unavailable Becky Gambino Admitting Unavailable Becky Gambino Attending Unavailable Avery Blanca Attending Unavailable Avery Blanca Admitting Unavailable [facility] Primary Care Unavaila [...] Swelling of Lip/Tongue/Throa t, Anaphylactic reaction, Unknown [facility] Medications Current Medications Medication Drug Class(es) Dates Sig (Normalized) Sig (Original) acetaminophen 325 mg / HYDROcodone bitartrate 5 mg oral tablet (1 source) Opioid Agonist Start: 02-02-2022 Hosmer 325 mg-5 mg oral tablet 1 tab(s), [...] 11-06-2021 End: 01-15-2024 Promethazine Discontinued 25 MG OR Q6H November 06, 2021 12:00am January 15, [...] 4 Chronic Other aftercare (1 source) Other mcc (current) drug therapy; Translations: [OTH LONGTERM CURRENT DRUG THERAPY] Onset: 2 Episodic Other [...] Creatinine Clr Calc Pharmacy 94.82 Normal [facility] Comment on above: Order Comment: DRAWN BY NAYANA Performed By: #### C MP, CBC, ETOH #### [address] GFR/1.73 sq M.predicted MDRD (S/P/Bld) [Vol rate/Area] mL/min/{1.73_m2} Normal [facility] Comment on above: Order Comment: DRAWN BY NAYANA Performed By: #### C MP, CBC, ETOH #### [facility] [address] Calcium [Mass/volume] in Ser um or PlasmaOrdered By: Helen Bailon on 01-20-2024 Calcium [Mass/Vol] 9.3 mg/dL Normal 8.6-10.3 [facility] Comment on above: Order Comment: DRAWN BY MK Performed By: #### C MP, CBC, ETOH #### [facility] [address] Capillary blood glucose archie urement by glucometer (mass/volume)Ordered By: Jack Kwon on 01-20-2024 Glucose [Mass/Vol] 161 mg/dL Normal [facility] Comment on above: Random Glucose Refer ence Range is dependent on time and content of last meal. Glucose of more than 200 mg/dL in a nonstressed, ambulatory subject supports the diagnosis of Diabetes Mellitus. Result Comment: [place] om Glucose Reference Range is dependent on time and content of last meal. Glucose of more than 200 mg/dL in a nonstressed, ambulatory subject supports the diagnosis of Diabetes Mellitus. PERFORMED BY: [place] [address] PATHOLOGIST [employer] BLUE M.D. Performed By: #### C MP, CBC, ETOH #### [facility] [address] [place] [address] Carbon dioxide, total [Moles /volume] in Serum or PlasmaOrdered By: Helen Bailon on 01-20-2024 CO2 [Moles/Vol] 22.5 mmol/L Normal 21.0-31.0 [facility] Comment on above: Order Comment: DRAWN BY MK Performed By: #### C MP, CBC, ETOH #### [facility] [address] [place] [address] [place] Chloride [Moles/volume] in S ben or PlasmaOrdered By: Helen Bailon on 01-20-2024 Chloride [Moles/Vol] 107 mmol/L Normal 98-107 [facility] Comment on above: Order Comment: DRAWN BY MK Performed By: #### C MP, CBC, ETOH #### [facility] [address] Creatinine [Mass/volume] in Serum or PlasmaOrdered By: Helen Bailon on 01-20-2024 Creatinine [Mass/Vol] 0.77 mg/dL Normal 0.60-1.20 [facility] Comment on above: Order Comment: DRAWN BY MK Performed By: #### C MP, CBC, ETOH #### [facility] [address] Glucose [Mass/volume] in Ser um or PlasmaOrdered By: Helen Bailon on 01-20-2024 Glucose [Mass/Vol] 98 mg/dL Normal 70-100 [facility] Comment on above: ADA recommended refe rence rangeRandom Glucose Reference Range is dependent on time and content of last meal. Glucose of more than 200 mg/dL in a nonstressed, ambulatory subject supports the diagnosis of Diabetes Mellitus. Order Comment: DRAWN BY MK Result Comment: [place] om Glucose Reference Range is dependent on time and content of last meal. Glucose of more than 200 mg/dL in a nonstressed, ambulatory subject supports the diagnosis of Diabetes Mellitus. ADA recommended reference range Performed By: #### C MP, CBC, ETOH #### [facility] [address] Magnesium [Mass/volume] in S ben or PlasmaOrdered By: Helen Bailon on 01-20-2024 Magnesium [Mass/Vol] 1.6 mg/dL Low 1.9-2.7 [facility] Comment on above: Order Comment: DRAWN BY Result Comment: PERF ORMED BY: [place] [address] PATHOLOGIST [employer] M.D. Performed By: #### C MP, CBC, ETOH #### [facility] [address] No Panel InformationOrdered By: Helen Bailon on 01-20-2024 Estimated GFR (CKD-EPI) > 60.0 mL/Min [facility] Creatinine Clearance (Chem 94.82 [facility] Potassium [Moles/volume] in Serum or PlasmaOrdered By: Helen Uvaldo on 01-20-2024 Potassium [Moles/Vol] 3.9 mmol/L Normal 3.5-5.1 [facility] Comment on above: Order Comment: DRAWN BY MK Performed By: #### C MP, CBC, ETOH #### [facility] [address] Serum or plasma anion gap de terminationOrdered By: Helen Uvaldo on 01-20-2024 Anion gap [Moles/Vol] 13.4 mmol/L Normal 6.0-15.0 [facility] Comment on above: Order Comment: DRAWN BY MK Performed By: #### C MP, CBC, ETOH #### [facility] [address] [place] [address] [place] Sodium [Moles/volume] in Ser um or PlasmaOrdered By: Helen Uvaldo on 01-20-2024 Sodium [Moles/Vol] 139 mmol/L Normal 136-145 [facility] Comment on above: Order Comment: DRAWN BY MK Performed By: #### C MP, CBC, ETOH #### [facility] [address] [place] [address] [place] Urea nitrogen [Mass/volume] in Serum or PlasmaOrdered By: Helen Uvaldo on 01-20-2024 Urea nitrogen [Mass/Vol] 11 mg/dL Normal 7-25 [facility] Comment on above: Order Comment: DRAWN BY MK Performed By: #### C MP, CBC, ETOH #### [facility] [address] [place] [address] [place] A1C with Estimated Average G verotodd 01-19-2024 Glucose [Mass/Vol] 105 mg/dL Normal [facility] Comment on above: Order Comment: Comme nt ok to use previously drawn lab Result Comment: PERF ORMED BY: [place] [address] PATHOLOGIST [employer] M.D. Performed By: #### A 1C [facility] eA #### [facility] [address] [place] [address] [place] Alanine aminotransferase [En zymatic activity/volume] in Serum or PlasmaOrdered By: Helentodd Bailon on 01-19-2024 ALT [Catalytic activity/Vol] 76 U/L High 7-52 [facility] Comment on above: Performed By: #### C MP, CBC, ETOH #### [facility] [address] [place] [address] [place] Albumin [Mass/volume] in Ser um or Plasma by Bromocresol green (BCG) dye binding methoOrdered By: Helen Bailon on 01-19-2024 Albumin BCG dye [Mass/Vol] 3.9 g/dL 3.5-5.7 [facility] Alkaline phosphatase [Enzyma tic activity/volume] in Serum or PlasmaOrdered By: Helen Bailon on 01-19-2024 ALP [Catalytic activity/Vol] 80 U/L Normal 34-104 [facility] Comment on above: Performed By: #### C MP, CBC, ETOH #### [facility] [address] Aspartate aminotransferase [ Enzymatic activity/volume] in Serum or PlasmaOrdered By: Helen Bailon on 01-19-2024 AST [Catalytic activity/Vol] 110 U/L High 13-39 [facility] Comment on above: Performed By: #### C MP, CBC, ETOH #### [facility] [address] [place] [address] [place] Bilirubin.total [Mass/volume ] in Serum or PlasmaOrdered By: Helen Bailon on 01-19-2024 Bilirubin [Mass/Vol] 0.7 mg/dL Normal 0.3-1.0 [facility] Comment on above: Performed By: #### C MP, CBC, ETOH #### [facility] [address] [place] [id number] [place] Comprehensive Metabolic Pane mike 01-19-2024 Albumin [Mass/Vol] 3.9 g/dL Normal 3.5-5.7 [facility] Comment on above: Performed By: #### C MP, CBC, ETOH #### [facility] [address] [place] [id number] [place] Anion gap [Moles/Vol] 14.1 mmol/L Normal 6.0-15.0 [facility] Comment on above: Performed By: #### C MP, CBC, ETOH #### [facility] [address] [place] [id number] [place] Calcium [Mass/Vol] 9.3 mg/dL Normal 8.6-10.3 [facility] Comment on above: Performed By: #### C MP, CBC, ETOH #### [facility] [address] [place] [address] [place] Chloride [Moles/Vol] 108 mmol/L High 98-107 [facility] Comment on above: Performed By: #### C MP, CBC, ETOH #### [facility] [address] [place] [address] [place] CO2 [Moles/Vol] 22.1 mmol/L Normal 21.0-31.0 [facility] Comment on above: Performed By: #### C MP, CBC, ETOH #### [facility] [address] [place] [address] [place] Creatinine [Mass/Vol] 0.63 mg/dL Normal 0.60-1.20 [facility] Comment on above: Performed By: #### C MP, CBC, ETOH #### [place] [address] [place] Creatinine Clr Calc Pharmacy 115.90 Normal [facility] Comment on above: Performed By: #### C MP, CBC, ETOH #### [facility] [address] [place] [address] [place] GFR/1.73 sq M.predicted MDRD (S/P/Bld) [Vol rate/Area] mL/min/{1.73_m2} Normal [facility] Comment on above: Performed By: #### C MP, CBC, ETOH #### [facility] [address] [place] [id number] [place] Glucose [Mass/Vol] 85 mg/dL Normal 70-100 [facility] Comment on above: Result Comment: Former[facility] Glucose Reference Range is dependent on time and content of last meal. Glucose of more than 200 mg/dL in a nonstressed, ambulatory subject supports the diagnosis of Diabetes Mellitus. ADA recommended reference range Performed By: #### C MP, CBC, ETOH #### [facility] [address] Potassium [Moles/Vol] 3.2 mmol/L Low 3.5-5.1 [facility] Comment on above: Performed By: #### C MP, CBC, ETOH #### [facility] [address] [place] [address] [place] Sodium [Moles/Vol] 141 mmol/L Normal 136-145 [facility] Comment on above: Performed By: #### C MP, CBC, ETOH #### [facility] [address] [place] [id number] [place] Urea nitrogen [Mass/Vol] 7 mg/dL Normal 7-25 [facility] Comment on above: Performed By: #### C MP, CBC, ETOH #### [facility] [address] [place] [id number] [place] Folate [Mass/volume] in Seru m or PlasmaOrdered By: Helen Bailon on 01-19-2024 Folate [Mass/Vol] 36.0 ng/mL >5.9 [facility] Comment on above: Folate reference ran ge: >5.9 ng/mlThe WHO technical consultation on folate and vitamin [id number] has determined that folate concentrations lessthan 4 ng/ml are considered deficient. Glucose mean value [Mass/vol ume] in Blood Estimated from glycated hemoglobinOrdered By: Helen Bailon on 01-19-2024 Average glucose Estimated from glycated hemoglobin (Bld) [Mass/Vol] 105 mg/dL [facility] Hemoglobin A1c percentageOrd ered By: Helen Bailon on 01-19-2024 HbA1c (Bld) [Mass fraction] 5.3 % Normal 4.3-5.6 [facility] Comment on above: Increased risk for d iabetes: 5.7 - 6.4diabetes: >6.4glycemic control for adults with diabetes: <7.0 Order Comment: Comme nt ok to use previously drawn lab Result Comment: Incr eased risk for diabetes: 5.7 - 6.4 diabetes: >6.4 glycemic control for adults with diabetes: <7.0 Performed By: #### A 1C [facility] #### [address] Lipase [Enzymatic activity/v olume] in Serum or PlasmaOrdered By: Helen Bailon on 01-19-2024 Lipase [Catalytic activity/Vol] U/L Low 11.0-82.0 [facility] Comment on above: Performed By: #### C MP, CBC, ETOH #### [address] Phosphate [Mass/volume] in S ben or PlasmaOrdered By: Helen Bailon on 01-19-2024 Phosphate [Mass/Vol] 6.4 mg/dL High 2.5-4.5 [facility] Comment on above: Performed By: #### C MP, CBC, ETOH #### [address] Protein [Mass/volume] in Ser um or PlasmaOrdered By: Helen Bailon on 01-19-2024 Protein [Mass/Vol] 6.7 g/dL Normal 6.4-8.9 [facility] Comment on above: Performed By: #### C MP, CBC, ETOH #### [address] Serum globulin measurement b y calculation (mass/volume)Ordered By: Helen Bailon on 01-19-2024 Globulin (S) [Mass/Vol] 2.8 g/dL Normal [facility] Comment on above: Performed By: #### C MP, CBC, ETOH #### [address] Serum or plasma albumin/glob ulin mass ratioOrdered By: Helen Bailon on 01-19-2024 Albumin/Globulin [Mass ratio] 1.4 {ratio} [facility] Comment on above: Performed By: #### C MP, CBC, ETOH #### [address] Vit. B12/Folate Profileon Folate 36.0 ng/mL Normal >5.9 [facility] Comment on above: Result Comment: Dorie te reference range: >5.9 ng/ml The WHO technical consultation on folate and vitamin b12 deficiencies has determined that folate concentrations less than 4 ng/ml are considered deficient. PERFORMED BY: [place] [address] PATHOLOGIST [employer] M.D. Performed By: #### C MP, CBC, ETOH #### [address] Vitamin B1 (Thiamine) Bloodo n 01-19-2024 Vitamin B1 (Thiamine) Blood 207.3 High 66.5-200.0 [facility] Comment on above: Result Comment: This test was developed and its performance characteristics determined by [employer]. It has not been cleared or approved by the Food and Drug Administration. Performed at: [address] [id number] [employer]: Charlie Manriquez MD, Phone: [phone] PERFORMED BY: [place] [address] PATHOLOGIST [employer] M.D. Performed By: #### C MP, CBC, ETOH #### [address] Vitamin B12 ser/plasOrdered By: Helen Bailon on 01-19-2024 Cobalamin (Vitamin B12) [Mass/Vol] 392 pg/mL Normal 180-914 [facility] Comment on above: Performed By: #### C MP, CBC, ETOH #### [place] [id number] [facility] Comprehensive Metabolic Pane mike 01-18-2024 Albumin [Mass/Vol] 4.5 g/dL Normal 3.5-5.7 [facility] Comment on above: Performed By: #### C MP, CBC, ETOH #### [place] [address] [place] Albumin/Globulin [Mass ratio] 1.5 {ratio} Normal [facility] Comment on above: Performed By: #### C MP, CBC, ETOH #### [address] ALP [Catalytic activity/Vol] 97 U/L Normal 34-104 [facility] Comment on above: Performed By: #### C MP, CBC, ETOH #### [address] ALT [Catalytic activity/Vol] 66 U/L High 7-52 [facility] Comment on above: Performed By: #### C MP, CBC, ETOH #### [address] Anion gap [Moles/Vol] 14.5 mmol/L Normal 6.0-15.0 [facility] Comment on above: Performed By: #### C MP, CBC, ETOH #### [address] AST [Catalytic activity/Vol] 103 U/L High 13-39 [facility] Comment on above: Performed By: #### C MP, CBC, ETOH #### [place] [address] [place] Bilirubin [Mass/Vol] 0.7 mg/dL Normal 0.3-1.0 [facility] Comment on above: Performed By: #### C MP, CBC, ETOH #### [place] [address] [place] Calcium [Mass/Vol] 10.2 mg/dL Normal 8.6-10.3 [facility] Comment on above: Performed By: #### C MP, CBC, ETOH #### [place] [address] [place] Chloride [Moles/Vol] 105 mmol/L Normal 98-107 [facility] Comment on above: Performed By: #### C MP, CBC, ETOH #### [address] CO2 [Moles/Vol] 23.9 mmol/L Normal 21.0-31.0 [facility] Comment on above: Performed By: #### C MP, CBC, ETOH #### [address] Creatinine [Mass/Vol] 0.66 mg/dL Normal 0.60-1.20 [facility] Comment on above: Performed By: #### C MP, CBC, ETOH #### [address] Creatinine Clr Calc Pharmacy 110.63 Normal [facility] Comment on above: Result Comment: PERF ORMED BY: [place] [address] PATHOLOGIST [employer] M.D. Performed By: #### C MP, CBC, ETOH #### [address] GFR/1.73 sq M.predicted MDRD (S/P/Bld) [Vol rate/Area] mL/min/{1.73_m2} Normal [facility] Comment on above: Performed By: #### C MP, CBC, ETOH #### [address] Globulin (S) [Mass/Vol] 3.1 g/dL Normal [facility] Comment on above: Performed By: #### C MP, CBC, ETOH #### [address] Glucose [Mass/Vol] 135 mg/dL High 70-100 [facility] Comment on above: Result Comment: [place] Glucose Reference Range is dependent on time and content of last meal. Glucose of more than 200 mg/dL in a nonstressed, ambulatory subject supports the diagnosis of Diabetes Mellitus. ADA recommended reference range Performed By: #### C MP, CBC, ETOH #### [address] Potassium [Moles/Vol] 3.4 mmol/L Low 3.5-5.1 [facility] Comment on above: Performed By: #### C MP, CBC, ETOH #### [facility] [address] [place] [address] [place] Protein [Mass/Vol] 7.6 g/dL Normal 6.4-8.9 [facility] Comment on above: Performed By: #### C MP, CBC, ETOH #### [facility] [address] [place] [address] [place] Sodium [Moles/Vol] 140 mmol/L Normal 136-145 [facility] Comment on above: Performed By: #### C MP, CBC, ETOH #### [facility] [address] [place] [address] [place] Urea nitrogen [Mass/Vol] 5 mg/dL Low 7-25 [facility] Comment on above: Performed By: #### C MP, CBC, ETOH #### [facility] [address] Magnesiumon 01-18-2024 Magnesium [Mass/Vol] 1.4 mg/dL Low 1.9-2.7 [facility] Comment on above: Result Comment: PERF ORMED BY: [place] [address] PATHOLOGIST [employer] M.D. Performed By: #### C MP, CBC, ETOH #### [place] [address] [place] Cholesterol [Mass/volume] in Serum or PlasmaOrdered By: Jack Kwon on 01-16-2024 Cholesterol [Mass/Vol] 270 mg/dL High 140-200 [facility] Comment on above: Chol less than 200 m g/dl low riskChol 201-239 mg/dl borderline riskChol 240 mg/dl and greater high risk Result Comment: Chol less than 200 mg/dl low risk Chol 201-239 mg/dl borderline risk Chol 240 mg/dl and greater high risk Performed By: #### C MP, CBC, ETOH #### [place] [address] [place] Cholesterol in LDL Calc [Mas s/Vol]Ordered By: Jack Kwon on 01-16-2024 Cholesterol in LDL [Mass/Vol] 134 mg/dL High 0-100 [facility] Comment on above: LDL ATP III CLASSIFI CATIONLDL less than 100 mg/dL OptimalLDL 100-129 mg/dL Near or above optimalLDL 130-159 mg/dL Borderline highLDL 160-189 mg/dL HighLDL greater than 189 mg/dL Very high Cholesterol in VLDL Calc [Ma ss/Vol]Ordered By: Jack Kwon on 01-16-2024 Cholesterol in VLDL [Mass/Vol] 28 mg/dL [facility] ECG 12 lead ECGon 01-16-2024 ECG 12 lead ECG [facility] [place] [address] Electrocardiograph Report Signed Patient: Shikha Loera MR#: [id number] : 1985 Acct:[id number] Age/Sex: 38 / F ADM Date: 01/15/24 Loc: Room: [address] [place] [address] Type: ADM IN Attending Dr: Jack Kwon [...] rhythm Normal ECG Confirmed by Almaz Armando ([id number]) on 01/16/2024 4:49:39 PM Referred By: Electronically Signed By: Almaz Armando Transcribed By: MUS Signed By Almaz Armando MD 4 [id number] Normal [facility] Lipid Panelon 01-16-2024 LDL Cholesterol,Calculated 134 mg/dL High 0-100 [facility] Comment on above: Result Comment: LDL ATP III CLASSIFICATION LDL less than 100 mg/dL Optimal LDL 100-129 mg/dL Near or above optimal LDL 130-159 mg/dL Borderline high LDL 160-189 mg/dL High LDL greater than 189 mg/dL Very high Performed By: #### C MP, CBC, ETOH #### [facility] [address] Triglyceride w/Reflex 143 mg/dL Normal 0-149 [facility] Comment on above: Result Comment: TRIG ATP III CLASSIFICATION TRIG less than 150 mg/dL Normal TRIG 150-199 mg/dL Borderline high TRIG 200-500 mg/dL High TRIG greater than 500 mg/dL Very high Standard traceable to the Center for Disease Conrtrol and Prevention (CDC) test method. Performed By: #### C MP, CBC, ETOH #### [facility] [address] VLDL CHOLESTEROL 28 mg/dL Normal [facility] Comment on above: Performed By: #### C MP, CBC, ETOH #### [facility] [address] Magnesiumon 01-16-2024 Magnesium [Mass/Vol] 1.6 mg/dL Low 1.9-2.7 [facility] Comment on above: Performed By: #### C MP, CBC, ETOH #### [facility] [address] Serum or plasma high density lipoprotein (HDL) cholesterol measurementOrdered By: Jack Kwon on 01-16-2024 Cholesterol in HDL [Mass/Vol] 107 mg/dL High 23-92 [facility] Comment on above: HDL CHOL ATP-III CLA SSIFICATION Cardiovascular RiskHDL > or equal to 60 mg/dL LOWHDL < 40 mg/dL HIGH Result Comment: HDL CHOL ATP-III CLASSIFICATION Cardiovascular Risk HDL > or equal to 60 mg/dL LOW HDL < 40 mg/dL HIGH Performed By: #### C MP, CBC, ETOH #### [facility] [address] Serum or plasma total choles terol/high density lipoprotein (HDL) cholesterol mass ratOrdered By: Jack Kwon on 01-16-2024 Cholesterol.total/Chol esterol in HDL [Mass ratio] 2.5 {ratio} Normal <5.0 [facility] Comment on above: Performed By: #### C MP, CBC, ETOH #### [facility] [id number] [facility] Thyroid Stim Hormone w/Rflxo n 01-16-2024 Thyroid Stim Hormone w/Rflx 3.66 u[iU]/mL Normal 0.45-5.33 [facility] Comment on above: Performed By: #### C MP, CBC, ETOH #### [facility] [id number] [facility] Thyrotropin [Units/volume] i n Serum or PlasmaOrdered By: Jack Kwon on 01-16-2024 TSH Qn 3.66 m[IU]/L 0.45-5.33 [facility] Triglyceride [Mass/volume] i n Serum or PlasmaOrdered By: Jack Kwon on 01-16-2024 Triglyceride [Mass/Vol] 143 mg/dL 0-149 [facility] Comment on above: TRIG ATP III CLASSIF ICATIONTRIG less than 150 mg/dL NormalTRIG 150-199 mg/dL Borderline highTRIG 200-500 mg/dL High TRIG greater than 500 mg/dL Very highStandard traceable to the Center for Disease Conrtrol and Prevention (CDC) test method. Vitamin D 25 Hydroxy Totalon 01-16-2024 Vitamin D 25 Hydroxy Total 12.7 ng/mL Low 30-100 [facility] Comment on above: Result Comment: SANTY MIN D STATUS 25(OH)VITAMIN D RANGE (ng/mL) Deficient <20 Insufficient 20 to <30 Sufficient 30 to 100 Reference: Davey MF,Merlin NC, Morales FOX, et al. Evaluation,treatment, and prevention of vitamin D deficiency; an Endocrine Society clinical practice guideline. JCEM. 2010; 96(7):1911-30. PERFORMED BY: [place] [address] PATHOLOGIST [employer] BLUE M.D. Performed By: #### C MP, CBC, ETOH #### [facility] [id number] [facility] Vitamin D+Metabolites [Mass/ volume] in Serum or PlasmaOrdered By: Jack Kwon on 01-16-2024 Vitamin D+Metabolites [Mass/Vol] 12.7 ng/mL Low 30-100 [facility] Comment on above: VITAMIN D STATUS 25( [...] ALT [Catalytic activity/Vol] 80 U/L High 7-52 [facility] Comment on above: Performed By: #### C MP, CBC, ETOH #### [facility] [address] [place] [address] [place] Albumin [Mass/volume] in Ser um or Plasma by Bromocresol green (BCG) dye binding methoOrdered By: Libby Kerr on 01-14-2024 Albumin BCG dye [Mass/Vol] 4.6 g/dL 3.5-5.7 [facility] Alkaline phosphatase [Enzyma tic activity/volume] in Serum or PlasmaOrdered By: Libby Kerr on 01-14-2024 ALP [Catalytic activity/Vol] 115 U/L High 34-104 [facility] Comment on above: Result Comment: PERF ORMED BY: [facility] [address] [place] [address] PATHOLOGIST [employer] M.D. Performed By: #### C MP, CBC, ETOH #### [facility] [phone] [place] Amphetamine Screen Ql (U)Ord ered By: Libby Kerr on 01-14-2024 Amphetamines Ql (U) Negative Negative [facility] Aspartate aminotransferase [ Enzymatic activity/volume] in Serum or PlasmaOrdered By: Libby Kerr on 01-14-2024 AST [Catalytic activity/Vol] 127 U/L High 13-39 [facility] Comment on above: Performed By: #### C MP, CBC, ETOH #### [address] Automated basophil %Ordered By: Libby Attilamay on 01-14-2024 Basophils/100 WBC (Bld) 3.1 % Normal . [facility] Comment on above: Performed By: #### C MP, CBC, ETOH #### [address] Automated basophil countOrde red By: Libby Attilamay on 01-14-2024 Basophils (Bld) [#/Vol] 0.1 10*3/uL Normal 0.0-0.2 [facility] Comment on above: Result Comment: PERF ORMED BY: [place] [address] PATHOLOGIST [employer] M.D. Performed By: #### C MP, CBC, ETOH #### [address] Automated blood monocyte cou ntOrdered By: Libby Attilamay on 01-14-2024 Monocytes (Bld) [#/Vol] 0.2 10*3/uL Normal 0.0-0.8 [facility] Comment on above: Performed By: #### C MP, CBC, ETOH #### [address] Automated eosinophil %Ordere d By: Libby eKrr on 01-14-2024 Eosinophils/100 WBC (Bld) 0.3 % Normal . [facility] Comment on above: Performed By: #### C MP, CBC, ETOH #### [address] Automated eosinophil countOr dered By: Libby Attilamay on 01-14-2024 Eosinophils (Bld) [#/Vol] 0.0 10*3/uL Normal 0.0-0.45 [facility] Comment on above: Performed By: #### C MP, CBC, ETOH #### [address] Automated monocyte %Ordered By: Libby Kerr on 01-14-2024 Monocytes/100 WBC (Bld) 3.1 % Normal . [facility] Comment on above: Performed By: #### C MP, CBC, ETOH #### [facility] [address] Automated neutrophil %Ordere d By: Libby Kerr on 01-14-2024 Neutrophils/100 WBC (Bld) 44.5 % Normal . [facility] Comment on above: Performed By: #### C MP, CBC, ETOH #### [facility] [address] Bacteria [Presence] in Urine by AutomatedOrdered By: Libby Kerr on 01-14-2024 Bacteria Auto Ql (U) 1+ [HPF] High None Seen [facility] Barbiturates [Presence] in U rine by Screen methodOrdered By: Libby Kerr on 01-14-2024 Barbiturates Screen Ql (U) Negative Negative [facility] Benzodiazepines Screen Ql (U )Ordered By: Libby Kerr on 01-14-2024 Benzodiazepines Ql (U) Negative Negative [facility] Benzoylecgonine [Presence] i n Urine by Screen methodOrdered By: Libby Kerr on 01-14-2024 Benzoylecgonine Screen Ql (U) Negative Negative [facility] Bilirubin Test strip Ql (U)O rdered By: Libby Kerr on 01-14-2024 Bilirubin Ql (U) Negative Negative [facility] Bilirubin.total [Mass/volume ] in Serum or PlasmaOrdered By: Libby Kerr on 01-14-2024 Bilirubin [Mass/Vol] 0.6 mg/dL Normal 0.3-1.0 [facility] Comment on above: Performed By: #### C MP, CBC, ETOH #### [facility] [address] [place] [address] [place] Calcium [Mass/volume] in Ser um or PlasmaOrdered By: Libby Kerr on 01-14-2024 Calcium [Mass/Vol] 9.2 mg/dL Normal 8.6-10.3 [facility] Comment on above: Performed By: #### C MP, CBC, ETOH #### [place] [address] [place] Cannabinoids [Presence] in U rine by Screen methodOrdered By: Libby Kerr on 01-14-2024 Cannabinoids Screen Ql (U) Negative Negative [facility] Comment on above: These are unconfirme d results and should not be used for legal purposes. Drug Cut-Off Concentration: AMPH 1000 ng/mL DALLAS 200 ng/mL DAVID 200 ng/mL COCM 300 ng/mL OP 300 ng/mL PCP 25 ng/mL THC 20 ng/mL Carbon dioxide, total [Moles /volume] in Serum or PlasmaOrdered By: Libby Kerr on 01-14-2024 CO2 [Moles/Vol] 23.5 mmol/L Normal 21.0-31.0 [facility] Comment on above: Performed By: #### C MP, CBC, ETOH #### [place] [address] [place] Chloride [Moles/volume] in S ben or PlasmaOrdered By: Libby Kerr on 01-14-2024 Chloride [Moles/Vol] 102 mmol/L Normal 98-107 [facility] Comment on above: Performed By: #### C MP, CBC, ETOH #### [address] Color of Urine by AutoOrdere d By: Libby Kerr on 01-14-2024 Color (U) Light-yellow Normal Yellow [facility] Comment on above: Order Comment: Name Collection Type:: Clean-Voided Midstream Performed By: #### C MP, CBC, ETOH #### [place] [address] [place] Complete Blood Count Auto Di ffon 01-14-2024 Mean Corpuscular HGB Conc 35.0 g/dL Normal 32.0-35.0 [facility] Comment on above: Performed By: #### C MP, CBC, ETOH #### [place] [address] [place] Monocytes/100 WBC (Bld) 17.74 % Normal 0.00-20.00 [facility] Comment on above: Result Comment: For adults in ED, MDW > 20.0 may be associated with a higher risk of sepsis during the first 12 hrs of hospital admission Performed By: #### C MP, CBC, ETOH #### [address] NRBC% 0.1 /100{WBC} Normal 0-0.5 [facility] Comment on above: Performed By: #### C MP, CBC, ETOH #### [address] Comprehensive Metabolic Pane mike 01-14-2024 Albumin [Mass/Vol] 4.6 g/dL Normal 3.5-5.7 [facility] Comment on above: Performed By: #### C MP, CBC, ETOH #### [address] GFR/1.73 sq M.predicted MDRD (S/P/Bld) [Vol rate/Area] mL/min/{1.73_m2} Normal [facility] Comment on above: Performed By: #### C MP, CBC, ETOH #### [address] Creatinine [Mass/volume] in Serum or PlasmaOrdered By: Libby Kerr on 01-14-2024 Creatinine [Mass/Vol] 0.58 mg/dL Low 0.60-1.20 [facility] Comment on above: Performed By: #### C MP, CBC, ETOH #### [place] [address] [place] Dipstick and Microscopicon 1 Bacteria,Urine 1+ High None Seen [facility] Comment on above: Order Comment: Name Collection Type:: Clean-Voided Midstream Performed By: #### C MP, CBC, ETOH #### [address] Bilirubin,Urine Negative Normal Negative [facility] Comment on above: Order Comment: Name Collection Type:: Clean-Voided Midstream Performed By: #### C MP, CBC, ETOH #### [address] Glucose Ql (U) Normal Normal Normal [facility] Comment on above: Order Comment: Name Collection Type:: Clean-Voided Midstream Performed By: #### C MP, CBC, ETOH #### [facility] [address] [place] [address] [place] Hyaline Casts,Urine 0-8 Normal 0-8 [facility] Comment on above: Order Comment: Name Collection Type:: Clean-Voided Midstream Performed By: #### C MP, CBC, ETOH #### [place] [address] [place] Nitrite,Urine Negative Normal Negative [facility] Comment on above: Order Comment: Name Collection Type:: Clean-Voided Midstream Performed By: #### C MP, CBC, ETOH #### [place] [address] [place] Occult Blood,Urine Negative Normal Negative [facility] Comment on above: Order Comment: Name Collection Type:: Clean-Voided Midstream Performed By: #### C MP, CBC, ETOH #### [address] RBC,Urine 1-2 Normal 0-4 [facility] Comment on above: Order Comment: Name Collection Type:: Clean-Voided Midstream Performed By: #### C MP, CBC, ETOH #### [address] Specificy [place],Urine 1.005 Normal 1.001-1.03 0 [facility] Comment on above: Order Comment: Name Collection Type:: Clean-Voided Midstream Performed By: #### C MP, CBC, ETOH #### [place] [address] [place] Squamous Epithelial Cell,Urine 3-4 High 0-2 [facility] Comment on above: Order Comment: Name Collection Type:: Clean-Voided Midstream Performed By: #### C MP, CBC, ETOH #### [place] [address] [place] Urobilinogen,Urine Normal Normal Normal [facility] Comment on above: Order Comment: Name Collection Type:: Clean-Voided Midstream Performed By: #### C MP, CBC, ETOH #### [place] [address] [place] WBC,Urine 1-2 Normal 0-4 [facility] Comment on above: Order Comment: Name Collection Type:: Clean-Voided Midstream Performed By: #### C MP, CBC, ETOH #### [place] [address] [place] Drug Screen,Urineon 01-14-20 24 Amphetamine Screen,Urine Negative Normal Negative [facility] Comment on above: Performed By: #### C MP, CBC, ETOH #### [address] Barbiturate Screen,Urine Negative Normal Negative [facility] Comment on above: Performed By: #### C MP, CBC, ETOH #### [place] [address] [place] Benzodiazepines Screen,Urine Negative Normal Negative [facility] Comment on above: Performed By: #### C MP, CBC, ETOH #### [address] Cannabinoid Screen,Urine Negative Normal Negative [facility] Comment on above: Result Comment: Thes e are unconfirmed results and should not be used for legal purposes. Drug Cut-Off Concentration: AMPH 1000 ng/mL DALLAS 200 ng/mL DAVID 200 ng/mL COCM 300 ng/mL OP 300 ng/mL PCP 25 ng/mL THC 20 ng/mL PERFORMED BY: [place] [address] PATHOLOGIST [employer] BLUE M.D. Performed By: #### C MP, CBC, ETOH #### [address] Cocaine Screen,Urine Negative Normal Negative [facility] Comment on above: Performed By: #### C MP, CBC, ETOH #### [facility] [address] Opiate Screen,Urine Negative Normal Negative [facility] Comment on above: Performed By: #### C MP, CBC, ETOH #### [facility] [address] Phencyclidine Screen,Urine Negative Normal Negative [facility] Comment on above: Performed By: #### C MP, CBC, ETOH #### [facility] [address] ECG 12 lead ECGon 01-14-2024 ECG 12 lead ECG [facility] [place] [address] [place] [address] Electrocardiograph Report Signed Patient: Shikha Loera MR#: [id number] : 1985 Acct:[id number] Age/Sex: 38 / F ADM Date: 01/15/24 Loc: Room: [address] [place] [address] Type: ADM IN Attending Dr: Jack Kwon [...] : 450 ms Sinus tachycardia with short OR Otherwise normal ECG When compared with ECG of 14-Feb-2015 09:02, OR interval has decreased Vent. rate has increased by 73 bpm Confirmed by LILIANA MARINA DO ([id number]) on 01/15/2024 4:02:38 PM Referred By: Electronically Signed By: LILIANA MARINA DO Transcribed By: MUS Signed By Liliana Marina DO 01/14 1602 Normal [facility] Epithelial cells.squamous [# /area] in Urine sediment by Automated countOrdered By: Libby Kerr on 01-14-2024 Epithelial cells.squamous Auto (Urine sed) [#/Area] 3-4 [HPF] High 0-2 [facility] Erythrocyte distribution wid th [Ratio] by Automated countOrdered By: Libby Kerr on 01-14-2024 Erythrocyte distribution width (RBC) [Ratio] 13.5 % Normal 11.9-15.3 [facility] Comment on above: Performed By: #### C MP, CBC, ETOH #### [address] Erythrocytes [#/area] in Uri ne sediment by Automated countOrdered By: Libby Kerr on 01-14-2024 RBC Auto (Urine sed) [#/Area] 1-2 [HPF] 0-4 [facility] Erythrocytes [#/volume] in B lood by Automated countOrdered By: Libby Kerr on 01-14-2024 RBC (Bld) [#/Vol] 4.73 10*6/uL Normal 3.60-5.00 [facility] Comment on above: Performed By: #### C MP, CBC, ETOH #### [facility] [address] [place] [address] [place] Ethanol [Mass/volume] in Ser um or PlasmaOrdered By: Libby Kerr on 01-14-2024 Ethanol [Mass/Vol] 456 mg/dL Normal [facility] Comment on above: Performed By: #### C MP, CBC, ETOH #### [address] Ethanol [Mass/Vol] 0.456 % [facility] Ethyl Alcohol Profileon Percent Ethanol 0.456 % Normal [facility] Comment on above: Result Comment: PERF ORMED BY: [place] [address] PATHOLOGIST [employer] M.D. Performed By: #### C MP, CBC, ETOH #### [facility] [address] [place] [address] [place] Glucose [Mass/volume] in Ser um or PlasmaOrdered By: Libby Kerr on 01-14-2024 Glucose [Mass/Vol] 107 mg/dL High 70-100 [facility] Comment on above: ADA recommended refe rence rangeRandom Glucose Reference Range is dependent on time and content of last meal. Glucose of more than 200 mg/dL in a nonstressed, ambulatory subject supports the diagnosis of Diabetes Mellitus. Result Comment: [place] om Glucose Reference Range is dependent on time and content of last meal. Glucose of more than 200 mg/dL in a nonstressed, ambulatory subject supports the diagnosis of Diabetes Mellitus. ADA recommended reference range Performed By: #### C MP, CBC, ETOH #### [address] Glucose [Mass/volume] in Uri ne by Test stripOrdered By: Libby Kerr on 01-14-2024 Glucose Test strip (U) [Mass/Vol] Normal mg/dL Normal [facility] HCG ( test) IA.rapi d Ql (U)Ordered By: Libby Kerr on 01-14-2024 HCG ( test) Ql (U) Negative [facility] HCG,Urineon 01-14-2024 Beta HCG ( test) Ql (U) Negative Normal [facility] Comment on above: Order Comment: Name Collection Type:: Clean-Voided Midstream Result Comment: PERF ORMED BY: [place] [address] PATHOLOGIST [employer] M.D. Performed By: #### C MP, CBC, ETOH #### [address] Hematocrit [Volume Fraction] of Blood by Automated countOrdered By: Libby Kerr on 01-14-2024 Hematocrit (Bld) [Volume fraction] 43.3 % Normal 34.0-46.4 [facility] Comment on above: Performed By: #### C MP, CBC, ETOH #### [address] Hemoglobin Test strip Ql (U) Ordered By: Libby Kerr on 01-14-2024 Hemoglobin Ql (U) Negative Negative [facility] Hemoglobin [Mass/volume] in BloodOrdered By: Libby Kerr on 01-14-2024 Hemoglobin (Bld) [Mass/Vol] 15.1 g/dL Normal 11.8-15.4 [facility] Comment on above: Performed By: #### C MP, CBC, ETOH #### [facility] [address] [place] [address] [place] Hyaline casts [#/area] in Ur ine sediment by Automated countOrdered By: Libby Kerr on 01-14-2024 Hyaline casts Auto (Urine sed) [#/Area] 0-8 [LPF] 0-8 [facility] Ketones [Presence] in Urine by Test stripOrdered By: Libby Kerr on 01-14-2024 Ketones Ql (U) Negative Normal Negative [facility] Comment on above: Order Comment: Name Collection Type:: Clean-Voided Midstream Performed By: #### C MP, CBC, ETOH #### [facility] [address] [place] [address] [place] Leukocyte esterase [Presence ] in Urine by Test stripOrdered By: Libby Kerr on 01-14-2024 Leukocyte esterase Test strip Ql (U) Negative Normal Negative [facility] Comment on above: Order Comment: Name Collection Type:: Clean-Voided Midstream Performed By: #### C MP, CBC, ETOH #### [facility] [address] [place] [address] [place] Leukocytes [#/area] in Urine sediment by Automated countOrdered By: Libby Kerr on 01-14-2024 WBC Auto (Urine sed) [#/Area] 1-2 [HPF] 0-4 [facility] Leukocytes [#/volume] correc rob for nucleated erythrocytes in Blood by Automated counOrdered By: Libby Kerr on 01-14-2024 WBC corrected for nucl RBC Auto (Bld) [#/Vol] 4.8 10*3/uL 3.8-11.6 [facility] Leukocytes [#/volume] in Blo od by Automated countOrdered By: Libby Kerr on 01-14-2024 WBC (Bld) [#/Vol] 4.8 10*3/uL Normal 3.8-11.6 [facility] Comment on above: Performed By: #### C MP, CBC, ETOH #### [address] Lymphocytes [#/volume] in Bl ood by Automated countOrdered By: Libby Kerr on 01-14-2024 Lymphocytes (Bld) [#/Vol] 2.4 10*3/uL Normal 1.00-4.8 [facility] Comment on above: Performed By: #### C MP, CBC, ETOH #### [address] Lymphocytes/100 leukocytes i n Blood by Automated countOrdered By: Libby Kerr on 01-14-2024 Lymphocytes/100 WBC (Bld) 49.0 % Normal . [facility] Comment on above: Performed By: #### C MP, CBC, ETOH #### [address] MCH [Entitic mass] by Automa rob countOrdered By: Libby Kerr on 01-14-2024 MCH (RBC) [Entitic mass] 32.0 pg Normal 24.7-34.3 [facility] Comment on above: Performed By: #### C MP, CBC, ETOH #### [address] MCHC Auto (RBC) [Mass/Vol]Or dered By: Libby Kerr on 01-14-2024 MCHC (RBC) [Mass/Vol] 35.0 g/dL 32.0-35.0 [facility] MCV [Entitic volume] by Auto mated countOrdered By: Libby Kerr on 01-14-2024 MCV (RBC) [Entitic vol] 91.4 fL Normal 80-100 [facility] Comment on above: Performed By: #### C MP, CBC, ETOH #### [address] Monocyte distribution width [Entitic volume] in Blood by AutomatedOrdered By: Libby Kerr on 01-14-2024 Monocyte distribution width Auto (Bld) [Entitic vol] 17.74 % 0.00-20.00 [facility] Comment on above: For adults in ED, MD W > 20.0 may be associated with a higher risk of sepsis during the first 12 hrs of hospital admission Neutrophils [#/volume] in Bl ood by Automated countOrdered By: Libby Kerr on 01-14-2024 Neutrophils (Bld) [#/Vol] 2.2 10*3/uL Normal 1.8-7.7 [facility] Comment on above: Performed By: #### C MP, CBC, ETOH #### [facility] [address] Nitrite Test strip Ql (U)Ord ered By: Libby Kerr on 01-14-2024 Nitrite Ql (U) Negative Negative [facility] No Panel InformationOrdered By: Libby Kerr on 01-14-2024 Estimated GFR (CKD-EPI) > 60.0 mL/Min [facility] Creatinine Clearance (Chem N/A [facility] Nucleated erythrocytes [Pres ence] in Blood by Automated countOrdered By: Libby Kerr on 01-14-2024 Nucleated RBC Auto Ql (Bld) 0.1 /100{WBC} 0-0.5 [facility] Opiates [Presence] in Urine by Screen methodOrdered By: Libby Kerr on 01-14-2024 Opiates Screen Ql (U) Negative Negative [facility] Phencyclidine Screen Ql (U)O rdered By: Libby Kerr on 01-14-2024 Phencyclidine Ql (U) Negative Negative [facility] Platelet mean volume [Entiti c volume] in Blood by Automated countOrdered By: Libby Kerr on 01-14-2024 Platelet mean volume (Bld) [Entitic vol] 7.5 fL Normal 6.3-10.7 [facility] Comment on above: Performed By: #### C MP, CBC, ETOH #### [facility] [address] Platelets [#/volume] in Bloo d by Automated countOrdered By: Libby Kerr on 01-14-2024 Platelets (Bld) [#/Vol] 192 10*3/uL Normal 150-450 [facility] Comment on above: Performed By: #### C MP, CBC, ETOH #### [facility] [address] [place] [address] [place] Potassium [Moles/volume] in Serum or PlasmaOrdered By: Libby Kerr on 01-14-2024 Potassium [Moles/Vol] 3.6 mmol/L Normal 3.5-5.1 [facility] Comment on above: Performed By: #### C MP, CBC, ETOH #### [place] [address] [place] Protein [Mass/volume] in Ser um or PlasmaOrdered By: Libby Kerr on 01-14-2024 Protein [Mass/Vol] 8.2 g/dL Normal 6.4-8.9 [facility] Comment on above: Performed By: #### C MP, CBC, ETOH #### [place] [address] [place] Protein [Mass/volume] in Uri ne by Test stripOrdered By: Libby Kerr on 01-14-2024 Protein (U) [Mass/Vol] 20 mg/dL High Negative [facility] Comment on above: Order Comment: Name Collection Type:: Clean-Voided Midstream Performed By: #### C MP, CBC, ETOH #### [address] Serum globulin measurement b y calculation (mass/volume)Ordered By: Libby Kerr on 01-14-2024 Globulin (S) [Mass/Vol] 3.6 g/dL [facility] Comment on above: Performed By: #### C MP, CBC, ETOH #### [address] Serum or plasma albumin/glob ulin mass ratioOrdered By: Libby Kerr on 01-14-2024 Albumin/Globulin [Mass ratio] 1.3 {ratio} [facility] Comment on above: Performed By: #### C MP, CBC, ETOH #### [address] Serum or plasma anion gap de terminationOrdered By: Libby Kerr on 01-14-2024 Anion gap [Moles/Vol] 21.1 mmol/L High 6.0-15.0 [facility] Comment on above: Performed By: #### C MP, CBC, ETOH #### [facility] [address] Sodium [Moles/volume] in Ser um or PlasmaOrdered By: Libby Kerr on 01-14-2024 Sodium [Moles/Vol] 143 mmol/L Normal 136-145 [facility] Comment on above: Performed By: #### C MP, CBC, ETOH #### [facility] [address] [place] [address] Specific gravity Test strip (U) [Rel density]Ordered By: Libby Kerr on 01-14-2024 Specific gravity (U) [Rel density] 1.005 1.001-1.03 0 [facility] Urea nitrogen [Mass/volume] in Serum or PlasmaOrdered By: Libby Kerr on 01-14-2024 Urea nitrogen [Mass/Vol] 3 mg/dL Low 7-25 [facility] Comment on above: Performed By: #### C MP, CBC, ETOH #### [facility] [address] [place] [address] Urine appearanceOrdered By: Libby Kerr on 01-14-2024 Appearance (U) Cloudy Critically abnormal Clear [facility] Comment on above: Order Comment: Name Collection Type:: Clean-Voided Midstream Performed By: #### C MP, CBC, ETOH #### [address] Urobilinogen Test strip (U) [Mass/Vol]Ordered By: Libby Kerr on 01-14-2024 Urobilinogen (U) [Mass/Vol] Normal mg/dL Normal [facility] pH of Urine by Test stripOrd ered By: Libby Kerr on 01-14-2024 pH (U) 5.5 [pH] Normal 5.0-9.0 [facility] Comment on above: Order Comment: Name Collection Type:: Clean-Voided Midstream Performed By: #### C MP, CBC, ETOH #### [facility] [address] [place] [address] [place] URINE CULTURE, ROUTINEon Bacteria identified Cx Nom (U) Urine Culture, Routine [facility] Bacteria identified Cx Nom (U) Mixed urogenital maricel [facility] Bacteria identified Cx Nom (U) Less than 10,000 colonies/mL [facility] Bacteria identified Cx Nom (U) Performed at: - [facility] Bacteria identified Cx Nom (U) [address] [place], [place] [id number] [facility] Bacteria identified Cx Nom (U) Guzzler Builder: Torsten Vidal PhD, Phone: [phone] [facility] Alanine aminotransferase [En zymatic activity/volume] in Serum or PlasmaOrdered By: Avery Blanca on 08-14-2023 ALT [Catalytic activity/Vol] 29 U/L Normal 7-52 [facility] Comment on above: Order Comment: Qian brooks for Exam Benign essential hypertension Performed By: #### T SH3 wRFLX, LIPID, CBC, CMP #### [facility] [address] [place] [address] [place] Albumin [Mass/volume] in Ser um or Plasma by Bromocresol green (BCG) dye binding methoOrdered By: Avery Blanca on 08-14-2023 Albumin BCG dye [Mass/Vol] 4.8 g/dL 3.5-5.7 [facility] Alkaline phosphatase [Enzyma tic activity/volume] in Serum or PlasmaOrdered By: Avery Blanca on 08-14-2023 ALP [Catalytic activity/Vol] 82 U/L Normal 34-104 [facility] Comment on above: Order Comment: Reaso n for Exam Benign essential hypertension Performed By: #### T SH3 wRFLX, LIPID, CBC, CMP #### [facility] [address] [place] [address] [place] Aspartate aminotransferase [ Enzymatic activity/volume] in Serum or PlasmaOrdered By: Avery Blanca on 08-14-2023 AST [Catalytic activity/Vol] 78 U/L High 13-39 [facility] Comment on above: Order Comment: Reaso n for Exam Benign essential hypertension Performed By: #### T SH3 wRFLX, LIPID, CBC, CMP #### [facility] [address] [place] [address] Automated basophil %Ordered By: Avery Blanca on 08-14-2023 Basophils/100 WBC (Bld) 1.9 % Normal . [facility] Comment on above: Order Comment: Reaso n for Exam Benign essential hypertension Performed By: #### T SH3 wRFLX, LIPID, CBC, CMP #### [address] Automated basophil countOrde red By: Avery Blanca on 08-14-2023 Basophils (Bld) [#/Vol] 0.1 10*3/uL Normal 0.0-0.2 [facility] Comment on above: Order Comment: Reaso n for Exam Benign essential hypertension Result Comment: PERF ORMED BY: [place] [address] PATHOLOGIST [employer] OSMEL BLUE M.D. Performed By: #### T SH3 wRFLX, LIPID, CBC, CMP #### [address] Automated blood monocyte cou ntOrdered By: Avery Blanca on 08-14-2023 Monocytes (Bld) [#/Vol] 0.4 10*3/uL Normal 0.0-0.8 [facility] Comment on above: Order Comment: Reaso n for Exam Benign essential hypertension Performed By: #### T SH3 wRFLX, LIPID, CBC, CMP #### [facility] [address] [place] [address] Automated eosinophil %Ordere d By: Avery Blanca on 08-14-2023 Eosinophils/100 WBC (Bld) 1.0 % Normal . [facility] Comment on above: Order Comment: Reaso n for Exam Benign essential hypertension Performed By: #### T SH3 wRFLX, LIPID, CBC, CMP #### [facility] [address] [place] [address] Automated eosinophil countOr dered By: Avery Blanca on 08-14-2023 Eosinophils (Bld) [#/Vol] 0.0 10*3/uL Normal 0.0-0.45 [facility] Comment on above: Order Comment: Reaso n for Exam Benign essential hypertension Performed By: #### T SH3 wRFLX, LIPID, CBC, CMP #### [facility] [address] [place] [address] [place] Automated monocyte %Ordered By: Avery Blanca on 08-14-2023 Monocytes/100 WBC (Bld) 11.5 % Normal . [facility] Comment on above: Order Comment: Reaso n for Exam Benign essential hypertension Performed By: #### T SH3 wRFLX, LIPID, CBC, CMP #### [facility] [address] Automated neutrophil %Ordere d By: Avery Blanca on 08-14-2023 Neutrophils/100 WBC (Bld) 57.8 % Normal . [facility] Comment on above: Order Comment: Reaso n for Exam Benign essential hypertension Performed By: #### T SH3 wRFLX, LIPID, CBC, CMP #### [facility] [address] [place] [address] [place] Bilirubin.total [Mass/volume ] in Serum or PlasmaOrdered By: Avery Blanca on 08-14-2023 Bilirubin [Mass/Vol] 0.5 mg/dL Normal 0.3-1.0 [facility] Comment on above: Order Comment: Reaso n for Exam Benign essential hypertension Performed By: #### T SH3 wRFLX, LIPID, CBC, CMP #### [facility] [address] [place] [address] [place] Calcium [Mass/volume] in Ser um or PlasmaOrdered By: Avery Blanca on 08-14-2023 Calcium [Mass/Vol] 9.6 mg/dL Normal 8.6-10.3 [facility] Comment on above: Order Comment: Reaso n for Exam Benign essential hypertension Performed By: #### T SH3 wRFLX, LIPID, CBC, CMP #### [facility] [address] [place] [address] [place] Carbon dioxide, total [Moles /volume] in Serum or PlasmaOrdered By: Avery Blanca on 08-14-2023 CO2 [Moles/Vol] 24.7 mmol/L Normal 21.0-31.0 [facility] Comment on above: Order Comment: Reaso n for Exam Benign essential hypertension Performed By: #### T SH3 wRFLX, LIPID, CBC, CMP #### [facility] [address] [place] [id number] [place] Chloride [Moles/volume] in S ben or PlasmaOrdered By: Avery Blanca on 08-14-2023 Chloride [Moles/Vol] 95 mmol/L Low 98-107 [facility] Comment on above: Order Comment: Reaso n for Exam Benign essential hypertension Performed By: #### T SH3 wRFLX, LIPID, CBC, CMP #### [facility] [address] [place] [address] [place] Cholesterol [Mass/volume] in Serum or PlasmaOrdered By: Avery Blanca on 08-14-2023 Cholesterol [Mass/Vol] 333 mg/dL High 140-200 [facility] Comment on above: Chol less than 200 m g/dl low riskChol 201-239 mg/dl borderline riskChol 240 mg/dl and greater high risk Order Comment: Reaso n for Exam Benign essential hypertension Result Comment: Chol less than 200 mg/dl low risk Chol 201-239 mg/dl borderline risk Chol 240 mg/dl and greater high risk Performed By: #### T SH3 wRFLX, LIPID, CBC, CMP #### [facility] [address] [place] [address] [place] Cholesterol in LDL Calc [Mas s/Vol]Ordered By: Avery Blanca on 08-14-2023 Cholesterol in LDL [Mass/Vol] 181 mg/dL 0-100 [facility] Comment on above: LDL ATP III CLASSIFI CATIONLDL less than 100 mg/dL OptimalLDL 100-129 mg/dL Near or above optimalLDL 130-159 mg/dL Borderline highLDL 160-189 mg/dL HighLDL greater than 189 mg/dL Very high Cholesterol in VLDL Calc [Ma ss/Vol]Ordered By: Avery Blanca on 08-14-2023 Cholesterol in VLDL [Mass/Vol] 22 mg/dL [facility] Complete Blood Count Auto Di ffon 08-14-2023 Mean Corpuscular HGB Conc 34.2 g/dL Normal 32.0-35.0 [facility] Comment on above: Order Comment: Reaso n for Exam Benign essential hypertension Performed By: #### T SH3 wRFLX, LIPID, CBC, CMP #### [address] NRBC% 0.3 /100{WBC} Normal 0-0.5 [facility] Comment on above: Order Comment: Reaso n for Exam Benign essential hypertension Performed By: #### T SH3 wRFLX, LIPID, CBC, CMP #### [address] Comprehensive Metabolic Pane mike 08-14-2023 Albumin [Mass/Vol] 4.8 g/dL Normal 3.5-5.7 [facility] Comment on above: Order Comment: Reaso n for Exam Benign essential hypertension Performed By: #### T SH3 wRFLX, LIPID, CBC, CMP #### [address] GFR/1.73 sq M.predicted MDRD (S/P/Bld) [Vol rate/Area] mL/min/{1.73_m2} Normal [facility] Comment on above: Order Comment: Reaso n for Exam Benign essential hypertension Performed By: #### T SH3 wRFLX, LIPID, CBC, CMP #### [address] Creatinine [Mass/volume] in Serum or PlasmaOrdered By: Avery Blanca on 08-14-2023 Creatinine [Mass/Vol] 0.48 mg/dL Low 0.60-1.20 [facility] Comment on above: Order Comment: Reaso n for Exam Benign essential hypertension Performed By: #### T SH3 wRFLX, LIPID, CBC, CMP #### [facility] [address] [place] [address] Erythrocyte distribution wid th [Ratio] by Automated countOrdered By: Avery Blanca on 08-14-2023 Erythrocyte distribution width (RBC) [Ratio] 14.2 % Normal 11.9-15.3 [facility] Comment on above: Order Comment: Reaso n for Exam Benign essential hypertension Performed By: #### T SH3 wRFLX, LIPID, CBC, CMP #### [facility] [address] [place] [address] [place] Erythrocytes [#/volume] in B lood by Automated countOrdered By: Avery Blanca on 08-14-2023 RBC (Bld) [#/Vol] 4.03 10*6/uL Normal 3.60-5.00 [facility] Comment on above: Order Comment: Reaso n for Exam Benign essential hypertension Performed By: #### T SH3 wRFLX, LIPID, CBC, CMP #### [facility] [address] [place] [address] [place] Glucose [Mass/volume] in Ser um or PlasmaOrdered By: Avery Blanca on 08-14-2023 Glucose [Mass/Vol] 102 mg/dL High 70-100 [facility] Comment on above: ADA recommended refe rence rangeRandom Glucose Reference Range is dependent on time and content of last meal. Glucose of more than 200 mg/dL in a nonstressed, ambulatory subject supports the diagnosis of Diabetes Mellitus. Order Comment: Reaso n for Exam Benign essential hypertension Result Comment: [place] om Glucose Reference Range is dependent on time and content of last meal. Glucose of more than 200 mg/dL in a nonstressed, ambulatory subject supports the diagnosis of Diabetes Mellitus. ADA recommended reference range Performed By: #### T SH3 wRFLX, LIPID, CBC, CMP #### [facility] [address] [place] [address] [place] Hematocrit [Volume Fraction] of Blood by Automated countOrdered By: Avery Blanca on 08-14-2023 Hematocrit (Bld) [Volume fraction] 39.2 % Normal 34.0-46.4 [facility] Comment on above: Order Comment: Reaso n for Exam Benign essential hypertension Performed By: #### T SH3 wRFLX, LIPID, CBC, CMP #### [facility] [address] [place] [address] [place] Hemoglobin [Mass/volume] in BloodOrdered By: Avery Blanca on 08-14-2023 Hemoglobin (Bld) [Mass/Vol] 13.4 g/dL Normal 11.8-15.4 [facility] Comment on above: Order Comment: Reaso n for Exam Benign essential hypertension Performed By: #### T SH3 wRFLX, LIPID, CBC, CMP #### [facility] [address] Leukocytes [#/volume] correc rob for nucleated erythrocytes in Blood by Automated counOrdered By: Avery Blanca on 08-14-2023 WBC corrected for nucl RBC Auto (Bld) [#/Vol] 3.8 10*3/uL 3.8-11.6 [facility] Leukocytes [#/volume] in Blo od by Automated countOrdered By: Avery Blanca on 08-14-2023 WBC (Bld) [#/Vol] 3.8 10*3/uL Normal 3.8-11.6 [facility] Comment on above: Order Comment: Reaso n for Exam Benign essential hypertension Performed By: #### T SH3 wRFLX, LIPID, CBC, CMP #### [facility] [address] Lipid Panelon 08-14-2023 LDL Cholesterol,Calculated 181 mg/dL High 0-100 [facility] Comment on above: Order Comment: Reaso n for Exam Benign essential hypertension Result Comment: LDL ATP III CLASSIFICATION LDL less than 100 mg/dL Optimal LDL 100-129 mg/dL Near or above optimal LDL 130-159 mg/dL Borderline high LDL 160-189 mg/dL High LDL greater than 189 mg/dL Very high Performed By: #### T SH3 wRFLX, LIPID, CBC, CMP #### [facility] [address] Triglyceride w/Reflex 111 mg/dL Normal 0-149 [facility] Comment on above: Order Comment: [...] SH3 wRFLX, LIPID, CBC, CMP #### [facility] [address] [place] [id number] [facility] VLDL CHOLESTEROL 22 mg/dL Normal [facility] Comment on above: Order Comment: Reaso n for Exam Benign essential hypertension Performed By: #### T SH3 wRFLX, LIPID, CBC, CMP #### [facility] [address] [place] [address] Lymphocytes [#/volume] in Bl ood by Automated countOrdered By: Avery Balnca on 08-14-2023 Lymphocytes (Bld) [#/Vol] 1.1 10*3/uL Normal 1.00-4.8 [facility] Comment on above: Order Comment: Reaso n for Exam Benign essential hypertension Performed By: #### T SH3 wRFLX, LIPID, CBC, CMP #### [facility] [address] [place] [address] Lymphocytes/100 leukocytes i n Blood by Automated countOrdered By: Avery Blanca on 08-14-2023 Lymphocytes/100 WBC (Bld) 27.8 % Normal . [facility] Comment on above: Order Comment: Reaso n for Exam Benign essential hypertension Performed By: #### T SH3 wRFLX, LIPID, CBC, CMP #### [facility] [address] [place] [address] MCH [Entitic mass] by Automa rob countOrdered By: Avery Blanca on 08-14-2023 MCH (RBC) [Entitic mass] 33.3 pg Normal 24.7-34.3 [facility] Comment on above: Order Comment: Reaso n for Exam Benign essential hypertension Performed By: #### T SH3 wRFLX, LIPID, CBC, CMP #### [facility] [address] [place] [address] MCHC Auto (RBC) [Mass/Vol]Or dered By: Avery Blanca on 08-14-2023 MCHC (RBC) [Mass/Vol] 34.2 g/dL 32.0-35.0 [facility] MCV [Entitic volume] by Auto mated countOrdered By: Avery Blanca on 08-14-2023 MCV (RBC) [Entitic vol] 97.1 fL Normal 80-100 [facility] Comment on above: Order Comment: Reaso n for Exam Benign essential hypertension Performed By: #### T SH3 wRFLX, LIPID, CBC, CMP #### [facility] [address] Neutrophils [#/volume] in Bl ood by Automated countOrdered By: Avery Blanca on 08-14-2023 Neutrophils (Bld) [#/Vol] 2.2 10*3/uL Normal 1.8-7.7 [facility] Comment on above: Order Comment: Reaso n for Exam Benign essential hypertension Performed By: #### T SH3 wRFLX, LIPID, CBC, CMP #### [facility] [address] No Panel InformationOrdered By: Avery Blanca on 08-14-2023 Estimated GFR (CKD-EPI) > 60.0 mL/Min [facility] Creatinine Clearance (Chem N/A [facility] Nucleated erythrocytes [Pres ence] in Blood by Automated countOrdered By: Avery Blanca on 08-14-2023 Nucleated RBC Auto Ql (Bld) 0.3 /100{WBC} 0-0.5 [facility] Platelet mean volume [Entiti c volume] in Blood by Automated countOrdered By: Avery Balnca on 08-14-2023 Platelet mean volume (Bld) [Entitic vol] 7.1 fL Normal 6.3-10.7 [facility] Comment on above: Order Comment: Reaso n for Exam Benign essential hypertension Performed By: #### T SH3 wRFLX, LIPID, CBC, CMP #### [facility] [address] [place] [address] Platelets [#/volume] in Bloo d by Automated countOrdered By: Avery Blanca on 08-14-2023 Platelets (Bld) [#/Vol] 201 10*3/uL Normal 150-450 [facility] Comment on above: Order Comment: Reaso n for Exam Benign essential hypertension Performed By: #### T SH3 wRFLX, LIPID, CBC, CMP #### [facility] [address] [place] [address] [place] Potassium [Moles/volume] in Serum or PlasmaOrdered By: Avery Blanca on 08-14-2023 Potassium [Moles/Vol] 4.2 mmol/L Normal 3.5-5.1 [facility] Comment on above: Order Comment: Reaso n for Exam Benign essential hypertension Performed By: #### T SH3 wRFLX, LIPID, CBC, CMP #### [facility] [address] Protein [Mass/volume] in Ser um or PlasmaOrdered By: Avery Blanca on 08-14-2023 Protein [Mass/Vol] 7.3 g/dL Normal 6.4-8.9 [facility] Comment on above: Order Comment: Reaso n for Exam Benign essential hypertension Performed By: #### T SH3 wRFLX, LIPID, CBC, CMP #### [facility] [address] Serum globulin measurement b y calculation (mass/volume)Ordered By: Avery Blanca on 08-14-2023 Globulin (S) [Mass/Vol] 2.5 g/dL Normal [facility] Comment on above: Order Comment: Reaso n for Exam Benign essential hypertension Performed By: #### T SH3 wRFLX, LIPID, CBC, CMP #### [facility] [address] [place] [address] Serum or plasma albumin/glob ulin mass ratioOrdered By: Avery Blanca on 08-14-2023 Albumin/Globulin [Mass ratio] 1.9 {ratio} [facility] Comment on above: Order Comment: Reaso n for Exam Benign essential hypertension Performed By: #### T SH3 wRFLX, LIPID, CBC, CMP #### [facility] [address] [place] [address] Serum or plasma anion gap de terminationOrdered By: Avery Blanca on 08-14-2023 Anion gap [Moles/Vol] 14.5 mmol/L Normal 6.0-15.0 [facility] Comment on above: Order Comment: Reaso n for Exam Benign essential hypertension Performed By: #### T SH3 wRFLX, LIPID, CBC, CMP #### [facility] [address] [place] [address] Serum or plasma high density lipoprotein (HDL) cholesterol measurementOrdered By: Avery Blanca on 08-14-2023 Cholesterol in HDL [Mass/Vol] 130 mg/dL High 23-92 [facility] Comment on above: HDL CHOL ATP-III CLA SSIFICATION Cardiovascular RiskHDL > or equal to 60 mg/dL LOWHDL < 40 mg/dL HIGH Order Comment: Reaso n for Exam Benign essential hypertension Result Comment: HDL CHOL ATP-III CLASSIFICATION Cardiovascular Risk HDL > or equal to 60 mg/dL LOW HDL < 40 mg/dL HIGH Performed By: #### T SH3 wRFLX, LIPID, CBC, CMP #### [facility] [address] [place] [address] Serum or plasma total choles terol/high density lipoprotein (HDL) cholesterol mass ratOrdered By: Avery Blanca on 08-14-2023 Cholesterol.total/Chol esterol in HDL [Mass ratio] 2.6 {ratio} Normal <5.0 [facility] Comment on above: Order Comment: Reaso n for Exam Benign essential hypertension Performed By: #### T SH3 wRFLX, LIPID, CBC, CMP #### [facility] [address] [place] [address] Sodium [Moles/volume] in Ser um or PlasmaOrdered By: Avery Blanca on 08-14-2023 Sodium [Moles/Vol] 130 mmol/L Low 136-145 [facility] Comment on above: Order Comment: Reaso n for Exam Benign essential hypertension Performed By: #### T SH3 wRFLX, LIPID, CBC, CMP #### [facility] [address] [place] [address] Thyroid Stim Hormone w/Rflxo n 08-14-2023 Thyroid Stim Hormone w/Rflx 1.86 u[iU]/mL Normal 0.45-5.33 [facility] Comment on above: Order Comment: Reaso n for Exam Benign essential hypertension Result Comment: PERF ORMED BY: [place] [address] PATHOLOGIST [employer] OSMEL BLUE M.D. Performed By: #### T SH3 wRFLX, LIPID, CBC, CMP #### [facility] [address] [place] [address] Thyrotropin [Units/volume] i n Serum or PlasmaOrdered By: Avery Blanca on 08-14-2023 TSH Qn 1.86 m[IU]/L 0.45-5.33 [facility] Triglyceride [Mass/volume] i n Serum or PlasmaOrdered By: Avery Blanca on 08-14-2023 Triglyceride [Mass/Vol] 111 mg/dL 0-149 [facility] Comment on above: TRIG ATP III CLASSIF ICATIONTRIG less than 150 mg/dL NormalTRIG 150-199 mg/dL Borderline highTRIG 200-500 mg/dL High TRIG greater than 500 mg/dL Very highStandard traceable to the Center for Disease Conrtrol and Prevention (CDC) test method. Urea nitrogen [Mass/volume] in Serum or PlasmaOrdered By: Avery Blanca on 08-14-2023 Urea nitrogen [Mass/Vol] 5 mg/dL Low 7-25 [facility] Comment on above: Order Comment: Reaso n for Exam Benign essential hypertension Performed By: #### T SH3 wRFLX, LIPID, CBC, CMP #### [facility] [address] HbA1c HPLC (Bld) [Mass fract ion]on 06-14-2023 HbA1c (Bld) [Mass fraction] 4.7 % [facility] No Panel Informationon 06-13 Bedside Glucose 110 [facility] A1C HEMOGLOBINon 03-27-2023 HbA1c (Bld) [Mass fraction] 10.6 % [employer] [facility] Other Glucose - FINGER STICKon Glucose [Mass/Vol] 95 mg/dL [facility] Other HbA1c (Bld) [Mass fraction]o n 03-27-2023 A1C HEMOGLOBIN [facility] Other Consent for Treatmenton 10-07 Consent for Treatment [id number]:12 7 Normal [facility] Discharge Instructionson Discharge Instructions [id number]: 127 Normal [facility] ED Clinical Summaryon 2022 ED Clinical Summary (Inserted Image. Jackie ble to display) [place] [address] ED Clinical Summary Person Information Name: SHIKHA LOERA/[place] Age: 37 Years : 1985 Sex: Female Language: Thai PCP: NONE, XXXX Marital Status: Visit Id: [...] 10/21/2022 08:36:13 10/21/2022 08:36:13 10/21/2022 08:36:13 ADDRESS: [address] [place] [address] [place] [id number] PHYS DOC NOTES: MEDICAL INFORMATION: Prescriptions Given: New Medications [id number], [address] [place] [id number], [phone] cyclobenzaprine (cyclobenzaprine 5 mg Tab) 1 Tablets [...] Continue with No Changes Other Medications acetaminophen-hydrocodone (Hosmer 325 mg-5 mg oral tablet) 1 Tablets [...] worsening symptoms. DIAGNOSIS: Contusion of rib Normal [facility] ED Note-Physicianon 10-22-19 ED Note-Physician Basic Information [...] pain, # 21 tab(s), Refills(s) 0, [facility]: [id number], 167.6, cm, 10/21/22 7:13:00 EDT, Height/Length Dosing, 61.5, kg, 10/21/22 7:13:00 EDT, Weight Dosing lidocaine topical, 1 patch(es), Topical, Daily, 7 EA, Refill(s) 0, apply 12 hours on and 12 hours off daily, [id number], 167.6, cm, 10/21/22 7:13:00 EDT, Height/Length Dosing, 61.5, kg, 10/21/22 7:13:00 EDT, Weight Dosing naproxen, 500 mg = 1 tab(s), Oral, BID, PRN for pain, # 20 tab(s), Refills(s) 0, Pharmacy: [id number], 167.6, cm, 10/21/22 7:13:00 EDT, Height/Length [...] No q (more content not included)... Normal [facility] Comment on above: Result Comment: Elec tronically [...] for lung collapse and pneumonia. ? Medicines. Jeub-jii-ivytlsq or prescription medicines may be given to control pain. ? Injection of a numbing medicine around the nerve near your injury (nerve block). Follow these instructions at home: Medicines ? Take zqbg-vsb-drykpud and prescription medicines only as told by your health care provider. ? Ask your health care provider if the medicine prescribed to you: ? Requires you to avoid driving or using machinery. ? Can cause constipation. You may need to take these actions to prevent or treat constipation: ? Drink enough fluid to keep your urine pale yellow. ? Take csoj-hzc-qapjaij or prescription medicines. ? Eat foods that [...] Reviewed: 06/30/2020 Else[employer] Patient Education ? 2022 [employer] Normal [facility] ED Patient Summaryon 023 ED Patient Summary (Inserted Image. Jackie ble to display) [address] [address] Patient Discharge Instructions Person Information Name: SHIKHA LOERA Age: 37 Years Arrival Date: 10/21/2022 06:56:51 Discharge Diagnosis: Contusion of rib Primary Care Physician: NONE, XXXX Provider Information Primary Provider: Thanh Bal DO Advanced Special Needs Caregiver:None The exam and treatment you received in the Emergency Department were for an urgent problem and are not intended as complete care. It is important that you follow up with a doctor, nurse practitioner, or physician?s general surgery physician assistant for ongoing care. If your symptoms [...] opioids can be used to help relieve rpajuoan-nc-rapniq pain and are often prescribed following a [...] and ab (more content not included)... Normal [facility] XR Ribs Unilat 3 Views Left w/ [...] others may be chronic. No pneumothorax. Normal [facility] AMYLASEon 03-26-2022 Amylase [Catalytic activity/Vol] 20 U/L Critically low 25-115 [facility] Comment on above: Performed By: #### L IPA, NGA, CMP #### [facility] [address] [address] [address] Angela Aguero CBC W MANUAL DIFFon 03-26-20 22 ATYPICAL LYMPH # Normal [facility] Comment on above: Performed By: #### L IPA, NGA, CMP #### [facility] [address] [address] [address] Angela Aguero ATYPICAL LYMPH % Normal [facility] Comment on above: Performed By: #### L IPA, NGA, CMP #### [facility] [address] [address] [address] Angela Aguero BAND # 0.0 103/ul Normal 0.0-0.3 [facility] Comment on above: Performed By: #### L IPA, NGA, CMP #### [facility] [address] [address] [address] Angela Aguero BAND % 0 % Normal 0-5 [facility] Comment on above: Performed By: #### L IPA, NGA, CMP #### [facility] [address] [address] [address] Angela Aguero BASOM # 0.07 103/ul Normal 0.00-0.10 [facility] Comment on above: Performed By: #### L IPA NGA, CMP #### [facility] [address] [address] [address] Angela Aguero BASOM % 1.0 % Normal 0.2-2.0 [facility] Comment on above: Performed By: #### L IPA, NGA, CMP #### [facility] [address] [place] [address] Dr. Angela Aguero BLAST # Normal [facility] Comment on above: Performed By: #### L IPA NGA, CMP #### [facility] [address] [place] [address] Dr. Angela Aguero BLAST % Normal [facility] Comment on above: Performed By: #### L IPA NGA, CMP #### [facility] [address] [place] [address] Dr. Angela Aguero CORRECTED WBC Normal 4.0-11.0 [facility] Comment on above: Performed By: #### L IPA, NGA, CMP #### [facility] [address] [place] [address] Dr. Angela Aguero EOS # 0.00 103/ul Normal 0.00-0.70 [facility] Comment on above: Performed By: #### L IPA NGA, CMP #### [facility] [address] [place] [address] Dr. Angela Aguero EOS% 0.0 % Critically low 0.9-7.0 [facility] Comment on above: Performed By: #### L IPA, NGA, CMP #### [facility] [address] [place] [address] Dr. Angela Aguero HCT 42.7 % Normal 36.0-48.0 [facility] Comment on above: Performed By: #### L IPA, NGA, CMP #### [facility] [address] [place] [address] Dr. Angela Aguero HGB 15.0 g/dl Normal 12.0-16.0 [facility] Comment on above: Performed By: #### L IPA, NGA, CMP #### [facility] [address] [place] [address] Dr. Angela Aguero LYMPHM # 0.28 103/ul Critically low 1.20-3.80 [facility] Comment on above: Performed By: #### L IPA, NGA, CMP #### [facility] [address] [place] [address] Dr. Angela Aguero LYMPHM% 4.0 % Critically low 20.5-60.0 [facility] Comment on above: Performed By: #### L IPA, NGA, CMP #### [facility] [address] [place] [address] Dr. Angela Aguero MCH 34.1 pg Critically high 26.7-34.0 [facility] Comment on above: Performed By: #### L IPA, NGA, CMP #### [facility] [address] [place] [address] Dr. Angela Aguero MCHC 35.1 g/dl Normal 29.9-35.2 [facility] Comment on above: Performed By: #### L IPA, NGA, CMP #### [facility] [address] [place] [address] Dr. Angela Aguero MCV 97.0 fL Normal 81.0-99.0 [facility] Comment on above: Performed By: #### L IPA, NGA, CMP #### [facility] [address] [place] [address] Dr. Angela Aguero METAMYELOCYTE # Normal [facility] Comment on above: Performed By: #### L IPA, NGA, CMP #### [facility] [address] [place] [address] Dr. Angela Aguero METAMYELOCYTE % Normal [facility] Comment on above: Performed By: #### L IPA, NGA, CMP #### [facility] [address] [place] [address] Dr. Angela Aguero MONOM# 0.21 103/ul Critically low 0.30-0.80 [facility] Comment on above: Performed By: #### L IPA, NGA, CMP #### [facility] [address] [address] [address] Angela Aguero MONOM% 3.0 % Normal 1.7-12.0 [facility] Comment on above: Performed By: #### L IPA, NGA, CMP #### [facility] [address] [address] [address] Angela Aguero MPV 9.4 fL Critically low 9.5-13.5 [facility] Comment on above: Performed By: #### L IPA, NGA, CMP #### [facility] [address] [address] [address] Angela Aguero MYELOCYTE # Normal [facility] Comment on above: Performed By: #### L IPA, NGA, CMP #### [facility] [address] [place] [address] Dr. Angela Aguero MYELOCYTE % Normal [facility] Comment on above: Performed By: #### L IPA, NGA, CMP #### [facility] [address] [place] [address] Dr. Angela Aguero NRBC Normal [facility] Comment on above: Performed By: #### L IPA, NGA, CMP #### [facility] [address] [address] [address] Angela Aguero PLT 252 103/ul Normal 150-450 [facility] Comment on above: Performed By: #### L IPA, NGA, CMP #### [facility] [address] [address] [address] Angela Aguero RBC 4.40 106/ul Normal 4.20-5.40 [facility] Comment on above: Performed By: #### L IPA, NGA, CMP #### [facility] [address] [place] [address] Dr. Angela Aguero RDW 11.3 % Normal 11.0-15.0 [facility] Comment on above: Performed By: #### L IPA, NGA, CMP #### [facility] [address] [address] [address] Angela Aguero SEG # 6.44 103/ul Normal 1.40-6.50 [facility] Comment on above: Performed By: #### L NGA SMITH, CMP #### [facility] [address] [place] [address] Dr. Angela Aguero SEG % 92.0 % Critically high 43.0-75.0 [facility] Comment on above: Performed By: #### L NGA SMITH, CMP #### [facility] [address] [place] [address] Dr. Angela Aguero WBC 7.0 103/ul Normal 4.0-11.0 [facility] Comment on above: Performed By: #### L NGA SMITH, CMP #### [facility] [address] [place] [address] Dr. Angela Aguero ETHANOL (BLD ALC)on 03-26-20 ALC NOTE NOTE: 80 mg/dl is th e legal limit for a blood alcohol level Normal [facility] Comment on above: Performed By: #### L NGA SMITH, CMP #### [facility] [address] [place] [address] Dr. Angela Aguero Ethanol [Mass/Vol] mg/dL Normal [facility] Comment on above: Performed By: #### L NGA SMITH, CMP #### [facility] [address] [place] [address] Dr. Angela Aguero LIPASEon 03-26-2022 Lipase [Catalytic activity/Vol] 43.0 U/L Critically low 73.0-393.0 [facility] Comment on above: Performed By: #### L NGA SMITH, CMP #### [facility] [address] [place] [address] Dr. Angela Aguero PROF 14(COMP METB)on Albumin [Mass/Vol] 3.9 g/dL Normal 3.4-5.0 [facility] Comment on above: Performed By: #### L NGA SMITH, CMP #### [facility] [address] [place] [address] Dr. Angela Aguero Albumin/Globulin [Mass ratio] 0.9 {ratio} Normal [facility] Comment on above: Performed By: #### L IPA, NGA, CMP #### [facility] [address] [address] [address] Angela Aguero ALP [Catalytic activity/Vol] 129 U/L Critically high 46-116 [facility] Comment on above: Performed By: #### L IPA, NGA, CMP #### [facility] [address] [address] [address] Angela Aguero ALT [Catalytic activity/Vol] 143 U/L Critically high 14-59 [facility] Comment on above: Performed By: #### L IPA, NGA, CMP #### [facility] [address] [address] [address] Angela Aguero Anion gap [Moles/Vol] 16.4 mmol/L Normal [facility] Comment on above: Performed By: #### L IPA, NGA, CMP #### [facility] [address] [address] [address] Angela Aguero AST [Catalytic activity/Vol] 306 U/L Critically high 15-37 [facility] Comment on above: Performed By: #### L IPA, NGA, CMP #### [facility] [address] [address] [address] Angela Aguero Bilirubin [Mass/Vol] 1.7 mg/dL Critically high 0.2-1.0 [facility] Comment on above: Performed By: #### L IPA, NGA, CMP #### [facility] [address] [address] [address] Angela Aguero Calcium [Mass/Vol] 9.4 mg/dL Normal 8.5-10.1 [facility] Comment on above: Performed By: #### L IPA, NGA, CMP #### [facility] [address] [address] [address] Angela Aguero Chloride [Moles/Vol] 99 mmol/L Normal 98-107 [facility] Comment on above: Performed By: #### L IPA, NGA, CMP #### [facility] [address] [address] [address] Angela Aguero CO2 [Moles/Vol] 25.9 mmol/L Normal 21.0-32.0 [facility] Comment on above: Performed By: #### L IPA NGA, CMP #### [facility] [address] [place] [address] Dr. Angela Aguero Creatinine [Mass/Vol] 0.82 mg/dL Normal 0.55-1.02 [facility] Comment on above: Performed By: #### L IPA, NGA, CMP #### [facility] [address] [place] [address] Dr. Angela Aguero EGFR-AF AFGHAN >60 Normal >=60 [facility] Comment on above: Performed By: #### L IPA, NGA, CMP #### [facility] [address] [place] [address] Dr. Angela Aguero EGFR-NON AF AFGHAN >60 Normal >=60 [facility] Comment on above: Performed By: #### L IPA NGA, CMP #### [facility] [address] [place] [address] Dr. Angela Aguero Globulin (S) [Mass/Vol] 4.4 g/dL Normal [facility] Comment on above: Performed By: #### L IPA NGA, CMP #### [facility] [address] [place] [address] Dr. Angela Aguero Glucose [Mass/Vol] 207 mg/dL Critically high 74-106 [facility] Comment on above: Performed By: #### L IPA NGA, CMP #### [facility] [address] [place] [address] Dr. Angela Aguero Potassium [Moles/Vol] 3.3 mmol/L Critically low 3.5-5.1 [facility] Comment on above: Performed By: #### L IPA NGA, CMP #### [facility] [address] [place] [address] Dr. Angela Aguero Protein [Mass/Vol] 8.3 g/dL Critically high 6.4-8.2 [facility] Comment on above: Performed By: #### L IPA, NGA, CMP #### [facility] [address] [place] [address] Dr. Angela Aguero Sodium [Moles/Vol] 138 mmol/L Normal 136-145 [facility] Comment on above: Performed By: #### L NGA SMITH, CMP #### [facility] [id number] Angela Aguero Urea nitrogen [Mass/Vol] 5.0 mg/dL Critically low 7.0-18.0 [facility] Comment on above: Performed By: #### L NGA SMITH, CMP #### [facility] [id number] Angela Aguero Urea nitrogen/Creatinine [Mass ratio] 6.1 mg/mg Normal [facility] Comment on above: Performed By: #### L NGA SMITH, CMP #### [facility] [address] [address] [address] Angela Aguero Coding Summary.on 02-06-2022 Coding Summary. CD:[id number] Gh0bW w+PGhlYWQ+AW6QBUQtA81vjAX vlB4XS6pHQB9MDPITAWXOGI7H DI9erYA2KKmrA2PacaFy ByihfFNxOK00POu8WDC1wHxdO InlmG5nlBNkE4q8PuCeXT48rR 72SRilYXSzSiP7ZxIrnsywsSO y A7dwVlZmdVCsTwe+PHRhYmxlI HdpZHRoPScxMDAlJyBzdHlsZT 2xNg0rVPOnKOZxiOxqoWMkGtO j s2amFVPqZZskLR5tzIecL3Ycp NX1TTOkq7y9Dw79oMR+PHRkIH T6vLtmYQixb104XzCoz5xyQRL 3 oLOrTZueZGN6V54vi0Q5ZWTeN CDbGLE7mEI5hZ4kqWqrrrrvX9 VciGHyJlF1WLU6sFIovG7ozBx n wxpyjY0jBto+K08VPU5DRBEPA J1JAdd9N5KwRflliPI+PC90YW CyPP90pKBkeITzm1ikfXb2XlV w ZPFdUIX7vPhtEYfij4JsLKNsO 12slCLfi7Q3NGRfyGgcpRHzZo QsnXR4uU7mNHthuqkti1jzkfg n Wgdbw1gkoz31cO84U15aBYjfU WIgNQZ1FLQjAWIloHynek1pyR 9wIi8+BRjqc5otd9crvEp4QlZ w CMTmgxPoxJuiDZS0w0MfAk93U 7TrtZsff8HcJch2ch58cGFhi6 M0hOH5HTlgARHkkE3pVXdkLiF 6 NSAqSwMeqQ29fSYyWJlrIb0kd ZtwdWexHY1lIRLliwbmAFXevB 4tFQDuxIZupNvpRH2fMPPuwqi m k325CeMmFZY9MSNjfIAnU8Yla Z4pAtRmISUtDZNsO5UluAMuWL vdK228GKeqAvA2IRHyvdFjU6W s BXMscVdpHyY3k0J7Gg3Ba2Sbc wqwILT2SGpbSTOwEtNzIbHsBk M4H8AjCha1NRLymSsxVF7nO6R h OKNcvictysyiuNZ1XVAkFDAbg B64kBTyAVjzJu3mp7U6f315NS RfTDKdyE23As1guCeqNGLeuGF U cX8ebsanw6efbnwsDsXoAHSqZ Bp4AWo6BGPigLpoMyTcFLC4Qi J9WIF4cUYntI5cvVeisbpygZ5 w Oyc+A71yxZ0kNWC4GMC8kleyR EPtgaIyOC69ZP02E3CfIsxqrM FibGU+AJHgbgKgdLkvBU4yCyT j l7meq5DvEChzF4QySPJzEOagU gf3EYDcPEQ1zOC2mG0gWQQsFC yja6B0dFV1E9JhogSwrb9lo3b s SAVpYZmgZ56qsWRwq9L3NZLiu BY4OJPloDruNoTnbY36Fvk+PG EkwWapx4CgClnnj0goc8robRq 9 YjLlBJCmtfMckWfuNZS8f6PoB y85I41tSMjmFRMdCOAsDLCuSG DuhRmrnm9tlB5dTl7+PGNvbCB 3 lTK8pX2uJRTcUdP9QEaaC278W wWunVGnTuawq8loa8xcySh7Ml UaZXZkznQydDwyCOJ7t7UuUi4 8 Q61jQWkaIGCrILRyTYFtQUVez Engro2ouO1cWp2+HJ8zd5qbga 77fF49vHJ+LBYpKSH7jPfmNOy w NZAvdQ9mMHmaXkD7IIQmHuCxy I37tOSyQEvzSy1mrOeoeTzkCT 3mDJCcbbcul182SnTnl3seZKQ w xCHkKKqwKKD4H68uo9E3CQWgW SDsHHY3hIW3vP6zcSviejxpbU LwcXiynxJhxFbuUXorQJzdA32 6 IHRvcDsnPlBhdGllbnQgTmFtZ Vs7Q2WpQpl7FRQquUyoAW5liC CsFJhiAn5hzMlvvLzdGH2oJZL p etjoo284GgLjy9alWCFrdQMaX QvtNGZ1A14pu2G6GLJuMWLsBU Z9iLW6tV7dsSlqygvgkIWorTc g zkSfrUupCGjbXFviK536AEEfg HixDaUlqkQrBARujLI5JP70OW 91uMAgq6W9nWO6J4CdQYPauum t kscgvEW4LYMpBHOzsM71Fj8jv WcwBn4gJJMqXGI0EVOrsIXnQ7 MroS9tGdFePQVsXXEoO5NrtDK t GJbcM354SRwkPgT4MTIeklStN 3UcBWCzrAofEeT6y5K9Ep6OA5 J1NY08RN48iMKgt6R0aWV4U3S h VPDtayzqcvetpFA7CDCpJWSrs Y18Es3gmTxmWw3oLTAyXIH9LM EqkCBrL2KybT5aZsSsDPIdMDZ w M1GslBYaEXqnL947MGitTdW0N RJobvZyZ7LvKQXpiPhlRqC4n4 Y2Tl1WXBn9ZZ37YV93lBUxm7A 5 eWJ7Q5MhZVWafmwvccvcmOA9W BCtCWRfkR49Eh3gcHutQd8rIE BwIFL1VAUlvMWvX8AoeT7iQrU j UBAmYIXnK0IoqTVoHEiwK432M BrmNfO4CHIavyQvW6OzWJXqbP nqVwY4y7L2Rw8BHSSoYK56ZZQ 5 cZM3FV11FS55P5BcCbfrcYEzi +PHRhYmxlIHdpZHRoPScxMD QcNgAdqQhdIV9zCm1cPNTsUHM v iPcvpCYsVkGpm6euGKUyRLwdE V6ogSliC0VymIW8IHNcv6o4Ko 34E54xA7QhvTD+IRWzwJT3tKG 0 rB5iWnDiOzV2YTtzO025ClFay ONcNujjq3npi0pyhJp2IkH0VZ RivkVtxPqbMHH7s6RfTg26M03 s IHdpZHRoPSIxNSUiIHZhbGlnb z9fnQ8rLj0+GEWkuNN5eNG2sQ 7tLxDlEyN0GKgpP355ApJfjSN v Hibla8ybb0nhaFk1JvZyGUHwk cJibPdmERR3i4LiCo60M8JiyN zpq7KsGkg2ot56nIDma1H2oLH 9 D3LvNCCcollsuZEibKmsWD1lN BClmbnlUHVtwU4bQYGdA7v6Ri CcKuM9RYieF4FujqG1JIFsaFD g AZhgJVI1J30ca1J8LNXlCJXkQ OX8eQX2wW0clAjgbasebFBvzP ghydYnnTwoONcaZNqmD672AJZ v zWwbJZRlbB5eSLYhsZAxqRwyR J3yBXBgnediSh7DAZtMWQGUKH qkFS9VWdIWQR36QU01kNOqu4A 5 gYI0T4PuPILrltdmsnlsiVE3U KPbIWJfvZ01mORvAVauCj4mj0 G0d206YEQbLOZuvF26Xm3bdHl g AHSrfEEFtF1eajdzn2jzyiklB xOiKGQkIUa5YWz7TVFctYcxLa UtIRN4WsR9EVX0pRWjmJ0fuQv n inbmiD8pMqw+QLGtQDztSSo7N TwvdGQ+UXLeEOD8vHlxXPhqAX UacR7bOSFsM4r4AwQmCiM3IFd u Y3RtGMZysoejMj39yW4zAgAcL zM3DZjoZ5WwxpX5LIYxzLUeYX psLIL5O98hy9R5EGZlOFTpLCI 7 oPV7cD3cnRuceewpuMQwbCyeq zPaaUvuDOnbRPykU007CNKcmS bwKjJ4GVhrJBWlKA34EJ20mIH g l4J3fXK9U9KhUKHlihyefgvkf YY7VHUyOWKzoB45gZSqZSidMj 1fq0A5h966NKXnKOIshQ31Jo8 u bWnlHKRmwAPIuC5orohzb1ahs ajcTdIySIVvUPt8GLd4CPZxfE ipWjJxHAN3WuG8TLY3rSNphA1 h hAmokzeklA4mHtp+RmVtYWxlP K82JB14qVQxp9P6rKI4E2JaPL CcoaqgiejqtBW1KYNzYMGkhS9 7 yFGlXXeeNj2ri1E9e395HPBiF VOksN04Xx2efXttALVewNRSmL 7vbpwki4eqzfooAvTuNEKjEMg 0 BDu5EFWmoHpiZwIiADW8VlN4U VE0fDFwcT6rnQsglkyixB7jCr c+FI7ldlyoqnL3HK28AF10F6R y PjwvdGFibGU+PHRhYmxlIHdpZ XHnGDiwGXNjUvPdaVmjLU6hVj 6gHBQkFSKxhNuqsYVxSdQxp7d s RVYwIKpnKR2qdJyfA4OztJK5F YVdc6u0Mu70P99nC2GhzHC+PG QbqDJ7cDX8lA0mKjQzWcZ4ESh p L759GaKhnVYfZhcto2byt3buf Qo5AwNiWUTocyNouCqbCWR0d7 WfJo28V91mBBpiGMAnMEFtJSR i VFLpqErvxd8yiT4vIr1+PGNvb HC8gCK5fS3rUzImXiT0KPdpA9 29LoTzyOEsDrrcX65uG5BhnDW + AVVxEau0AZSuvGbrTN3fpCJtR XlbSr0rCXB2XhVlZuKbFAxmL9 OjULQjrwufmjzdlLS1EJLzQNK w nD33Fk6wmFqvSd5vBKCqHBU1N UFkeQIjI5ZgfS0nXoUzHAFeFJ BuW4MhtHWkPLomT142PWkhAjW 7 UQYvqfDqA4TzNSVmkHaaFlS5s 6F6Yu7HrUsgzFGoNC7bYcJoIN u1L5HuOlt7BWBaeQbjMR3xsNG k GYokRh3nqOmmbYydQZ4wKIRwf pbfj977QeKfg1dzUPTleHYcQK cpILJ6Y91aq3F5RGCdGYPhNLG 7 zTZ5jB4osEoipkssbEXiqUkyb rOqgMubDSdwNMojY776QABwfA pbTkSMRow6N2WsJry7YPKphBk s UC0pwCYdMRllTo2slKbdpHkhU Z7pGGDjzzyid019QzLns3fbBO VmhBVmRVkjUZQ7T64yi4B2SKP w XJZnRUF3cRV0hL6yzFnhghpru GVmdDsgdmVydGljYWwtYWxpZ2 57KTNkjOkbYc6YPar6V0MkUgk 0 MUWhhLstTH4fyHYsIMspQi4fv VmliQrcPZ2nDRWwdiuni306Cf Vhw8hoEDZicUPsVJzfGRM3V53 s p6G2XKEmNANqVRK6xGY9oM4ex GlnbjogbGVmdDsgdmVydGljYW fzVTfuF053OMKynPykVwNixXT y OjwvdGQ+IJ29mu84X8MbBeraM zx2IWZeCAQ6kVE5wD3lKEBjDA fbq2K2tUL4H3EqtgEtnp4in6f s YXBz (more content not included)... [facility] C Urineon 02-03-2022 Bacteria identified Cx Nom (U) Microbiology PROCEDURE: Urine Culture [R1] SOURCE: U CleanCatch BODY SITE: COLLECTED DATE/TIME: 02/01/2022 23:42 EDT RECEIVED DATE/TIME: 02/01/2022 23:54 EDT START DATE/TIME: 02/01/2022 23:54 EDT FREE TEXT SOURCE: Judith oMck DO, DO, Kaylinn A FINAL REPORTS Final [...] Locations R1: This test was performed at: [facility], [address] [place] [address], [id number] , , [facility] Comment on above: Performed By: #### 2 [id number], [id number] ####[place] [id number] Auto Diffon 02-02-2022 Basophils/100 WBC (Bld) 0.9 % Normal 0.0-2.0 [facility] Comment on above: Order Comment: Order Added by Discern Expert. Performed By: #### 2 [id number], [id number], [id number], [id number], [id number], [id number] ####[address] [place] [address] Basophils/Leukocytes Auto (Bld) [Pure # fraction] 0.1 E9/L Normal 0.0-0.2 [facility] Comment on above: Order Comment: Order Added by Discern Expert. Performed By: #### 2 [id number], [id number], [id number], [id number], [id number], [id number] ####[address] [place] [address] Eosinophils/100 WBC (Bld) 0.6 % Normal 0.0-8.0 [facility] Comment on above: Order Comment: Order Added by Discern Expert. Performed By: #### 2 [id number], [id number], 1227154, [id number], [id number], [id number] ####[address] [address] Eosinophils/Leukocytes Auto (Bld) [Pure # fraction] 0.0 E9/L Normal 0.0-0.5 [facility] Comment on above: Order Comment: Order Added by Discern Expert. Performed By: #### 2 [id number], [id number], [id number], [id number], [id number], [id number] ####[address] [place] [address] Lymphocytes/100 WBC (Bld) 22.1 % Normal 14.0-50.0 [facility] Comment on above: Order Comment: Order Added by Discern Expert. Performed By: #### 2 [id number], [id number], 0075349, 8558994, [id number], [id number] ####[address] [place] [address] Lymphocytes/Leukocytes Auto (Bld) [Pure # fraction] 1.3 E9/L Normal 1.0-4.0 [facility] Comment on above: Order Comment: Order Added by Discern Expert. Performed By: #### 2 911092, 6538808, 4526768, 6375912, [id number], [id number] ####[facility] [id number] [place] [address] Monocytes/100 WBC (Bld) 9.5 % Normal 4.0-14.0 [facility] Comment on above: Order Comment: Order Added by Discern Expert. Performed By: #### 2 924306, [id number], 7209699, 8545193, [id number], [id number] ####[address] [place] [address] Monocytes/Leukocytes Auto (Bld) [Pure # fraction] 0.6 E9/L Normal 0.2-1.0 [facility] Comment on above: Order Comment: Order Added by Discern Expert. Performed By: #### 2 401915, 0611679, 5094397, [id number], [id number], [id number] ####[facility] [id number] [place] [address] Neutrophils/100 WBC (Bld) 66.9 % Normal 36.0-75.0 [facility] Comment on above: Order Comment: Order Added by Discern Expert. Performed By: #### 2 771122, 4425262, 2024314, 6777610, 17217677, 4436857 ####[address] [place] [address] Neutrophils/Leukocytes Auto (Bld) [Pure # fraction] 4.0 E9/L Normal 2.0-7.5 [facility] Comment on above: Order Comment: Order Added by Discern Expert. Performed By: #### 2 755642, 4967272, 8440844, 2501139, [id number], 8376872 ####[facility] [address] [place] [address] B hCG Qualon 02-02-2022 Beta hCG Ql Negative Normal [facility] Comment on above: Performed By: #### 2 [id number] ####[facility] [address] [place] [address] BMPon 02-02-2022 Anion gap [Moles/Vol] 21 mmol/L High 6-16 [facility] Comment on above: Performed By: #### 2 877156, 9718913, 6091403, 5222919, [id number], 1496499 ####[facility] [address] [place] [address] Calcium [Mass/Vol] 9.2 mg/dL Normal 8.9-11.1 [facility] Comment on above: Performed By: #### 2 429507, 7780426, 9012054, 4109649, 12119011, 0332119 ####[facility] [address] [place] [address] Chloride [Moles/Vol] 100 mmol/L Low 101-111 [facility] Comment on above: Performed By: #### 2 334113, 4131246, 0418487, 3054833, 77687209, 7759564 ####[facility] [address] [facility] [address] CO2 [Moles/Vol] 20 mmol/L Low 21-31 [facility] Comment on above: Performed By: #### 2 036478, 9262023, 1564511, 9240376, 12694140, 6716277 ####[facility] [address] [facility] [place] [address] Creatinine [Mass/Vol] 0.7 mg/dL Normal 0.5-1.3 [facility] Comment on above: Performed By: #### 2 740945, 3488061, 8512739, 6628255, 09585591, 3391412 ####[facility] [address] [place] [address] Glucose [Mass/Vol] 176 mg/dL Normal 55-199 [facility] Comment on above: Result Comment: If t his glucose result represents a fasting glucose, interpretation should refer to the following reference range: 55-99 mg/dL Performed By: #### 2 992456, 5836432, 8383499, 4794912, 11917896, 0099008 ####[facility] [address] [place] [address] Potassium [Moles/Vol] 3.4 mmol/L Low 3.5-5.3 [facility] Comment on above: Performed By: #### 2 756913, 2183756, 3983447, 6495787, 87064480, 8770480 ####[facility] [address] [place] [address] Sodium [Moles/Vol] 138 mmol/L Normal 135-145 [facility] Comment on above: Performed By: #### 2 439057, 0965632, 0671259, 9999883, 92821290, 4285894 ####[facility] [address] [place] [address] Urea nitrogen [Mass/Vol] mg/dL Normal 5-21 [facility] Comment on above: Performed By: #### 2 226184, 1247531, 8541082, 7206891, 44231999, 9206525 ####[facility] [address] [place] [address] Urea nitrogen/Creatinine [Mass ratio] UTC Abnormal 10-20 [facility] Comment on above: Result Comment: Resu lt verified by Discern Rule. Performed result UTC (Unable to Calculate) was sent as an Alpha code due the inability to calculate a valid numeric value. Performed By: #### 2 152759, 2792092, 9316485, 7496997, 01482176, 9560134 ####[facility] [address] [place] [address] CBC w/ Auto Diffon Erythrocyte distribution width (RBC) [Ratio] 13.6 % Normal 10.9-14.2 [facility] Comment on above: Performed By: #### 2 883984, 6430924, 5017623, 3669244, 15604837, 1119116 ####[facility] [address] [place] [address] Hematocrit (Bld) [Volume fraction] 44.9 % Normal 34.0-46.0 [facility] Comment on above: Performed By: #### 2 442275, 0095805, 9602019, 1637982, 63417105, 8314545 ####[facility] [address] [place] [address] Hemoglobin (Bld) [Mass/Vol] 15.6 g/dL Normal 12.0-16.0 [facility] Comment on above: Performed By: #### 2 095046, 8121227, 3836705, 2481989, 06790353, 5917746 ####[place] [id number] MCH (RBC) [Entitic mass] 34.3 pg High 27.0-34.0 [facility] Comment on above: Performed By: #### 2 343597, 9036584, 2096445, 7150275, 73124187, 3929494 ####[place] [id number] MCHC (RBC) [Mass/Vol] 34.7 g/dL Normal 31.4-36.0 [facility] Comment on above: Performed By: #### 2 216045, 6412123, 3828448, 9786480, 88680858, 4333018 ####[place] [id number] MCV (RBC) [Entitic vol] 98.8 fL Normal 80.0-100.0 [facility] Comment on above: Performed By: #### 2 881107, 8063712, 3317739, 0902439, 90004026, 8589487 ####[place] [address] [place] [address] Platelet mean volume (Bld) [Entitic vol] 7.5 fL Normal 6.4-10.8 [facility] Comment on above: Performed By: #### 2 772866, 3987362, 9711398, 8579099, 58149383, 2438501 ####[facility] [address] [place] [address] Platelets (Bld) [#/Vol] 199.0 E9/L Normal 150.0-500. 0 [facility] Comment on above: Performed By: #### 2 949764, 0079576, 4663215, 5175232, 25127425, 3482919 ####[facility] [address] [place] [address] RBC (Bld) [#/Vol] 4.6 E12/L Normal 4.3-5.9 [facility] Comment on above: Performed By: #### 2 262319, 1679907, 9068877, 0456324, 92726153, 1242122 ####[facility] [address] [place] [address] WBC corrected for nucl RBC Auto (Bld) [#/Vol] 6.0 E9/L Normal 4.0-11.0 [facility] Comment on above: Performed By: #### 2 449075, 5909879, 3441273, 7956898, 07506180, 3032011 ####[facility] [address] [place] [address] CT Abdomen/Pelvis w/ Contras ton 02-02-2022 CT [...] 300 Contrast amount in ml's: 100 Normal [facility] Discharge Instructionson Discharge Instructions [id number]#[id number]:12 7 Normal [facility] ED Clinical Summaryon 2021 ED Clinical Summary (Inserted Image. Jackie ble to display) [place] [id number] ED Clinical Summary Person Information Name: SHIKHA LOERA [facility]ly/[facility] Age: 36 Years : 1985 Sex: Female Language: Thai PCP: AVERY BLANCA CNP Marital Status: Visit [...] 02/02/2022 00:18:27 02/02/2022 00:18:27 02/02/2022 00:18:27 ADDRESS: [address] [place] [address] [phone] PHYS DOC NOTES: MEDICAL INFORMATION: Prescriptions Given: New Medications Printed Prescriptions acetaminophen-hydrocodone (Hosmer 325 mg-5 mg oral tablet) 1 Tablets By Mouth every 6 hours as needed for pain. Refills: 0. sulfamethoxazole-trimetho prim (Bactrim DS 800 mg-160 mg Tab) 1 Tablets By Mouth 2 times a day for 10 Days. Refills: 0. PATIENT EDUCATION INFORMATION: Instructions: Pyelonephritis, Adult, Gusk-qj-Ltbw Follow up: With: Address: When: AVERY BLANCA [address] [facility] [address] [place] [address] [phone] Business (1) In 3 days 02/05/2022 Comments: You can use the pain medication every 6 hours as needed for pain, take the Bactrim twice daily until you have completed the course. Please follow-up with your primary care doctor the next 2 to 3 days. Please return to the ED for any new or worsening symptoms. DIAGNOSIS: Acute pyelonephritis Normal [facility] ED Note-Physicianon 02-03-20 22 ED Note-Physician Basic [...] Crohn's disease sees a GI doctor at [facility] who she is unsure of who this [...] home. Is given a short course of Hosmer to go home with. She is given [...] hydroxide/Mg hydroxide/simethicone (more content not included)... Normal [facility] Comment on above: Result Comment: Elec tronically [...] you start to feel better. ? Take agit-uus-ywpmmjy and prescription medicines only as told by [...] 05/03/2005 Document Revised: 01/28/2019 Document Reviewed: 01/28/2019 [employer] Patient Education ? 2020 [employer] Normal [facility] ED Patient Summaryon 022 ED Patient Summary (Inserted Image. Jackie ble to display) [place] [id number] Patient Discharge Instructions Person Information Name: SHIKHA LOERA Age: 36 Years Arrival Date: 02/01/2022 21:23:41 Discharge Diagnosis: Acute pyelonephritis Primary Care Physician: AVERY BLANCA CNP Provider Information Primary Provider: Judith Mock DO Advanced Special Needs Caregiver:None The exam and treatment you received in the Emergency Department were for an urgent problem and are not intended as complete care. It is important that you follow up with a doctor, nurse practitioner, or physician?s general surgery physician assistant for ongoing care. If your symptoms become worse or you do not improve as expected and you are unable to reach your usual health care provider, you should return to the Emergency Department. We are available 24 hours a day. LUZ MARIASHIKHA SALCEDO has been given the following list of patient education materials, prescriptions and follow-up instructions: Follow-up Instructions: With: Address: When: AVERY BLANCA [address] [facility] [address] [place] [address] [phone] Business (1) In 3 days 02/05/2022 Comments: [...] participating provider. Patient Education Materials: Pyelonephritis, Adult, Jsub-nh-Iyql A MESSAGE TO ALL PATIENTS REGARDING OPIOIDS PRESCRIPTION OPIOIDS: WHAT YOU NEED TO KNOW Prescription opioids can be used to help relieve riwyanic-pt-xykbiy pain and are often prescribed following a [...] (www.fda.gov/Drugs/Resour cesForYou). (more content not included)... Normal [facility] Hep Func Panelon 02-02-2022 Albumin [Mass/Vol] 4.5 g/dL Normal 3.3-5.0 [facility] Comment on above: Performed By: #### 2 320861, 4365607, 6269655, 4247241, 56095884, 0459769 ####[facility] [address] [place] [address] Albumin/Globulin (S) [Mass conc ratio] 1.1 Normal 1.1-2.2 [facility] Comment on above: Performed By: #### 2 287824, 0188368, 7144558, 0542119, 27481176, 2730393 ####[place] [address] [place] [address] ALP [Catalytic activity/Vol] 98 Int._Unit/L Normal 21-98 [facility] Comment on above: Performed By: #### 2 929294, 7921888, 5252530, 1796240, 43906108, 9640210 ####[address] [address] ALT No additional P-5'-P [Catalytic activity/Vol] 57 Int._Unit/L High 6-46 [facility] Comment on above: Performed By: #### 2 289314, 1647309, 8090850, 8933457, 18705737, 4668105 ####[address] [address] AST [Catalytic activity/Vol] 157 Int._Unit/L High 5-43 [facility] Comment on above: Performed By: #### 2 303817, 3428097, 6099025, 7789066, 83123522, 4301280 ####[address] [address] Bilirubin [Mass/Vol] 1.4 mg/dL High 0.0-1.1 [facility] Comment on above: Performed By: #### 2 562910, 5573236, 9697756, 0995476, 95850559, 3446850 ####[address] [address] Bilirubin.direct [Mass/Vol] 0.5 mg/dL High 0.1-0.4 [facility] Comment on above: Performed By: #### 2 461565, 3557799, 6841954, 4261760, 84110967, 4905425 ####[facility] [address] [place] [address] Bilirubin.indirect [Mass or moles/Vol] 0.9 mg/dL Normal 0.1-0.9 [facility] Comment on above: Performed By: #### 2 977698, 0556318, 5860805, 3284613, 33325576, 6420501 ####[facility] [address] [place] [address] Globulin (S) [Mass/Vol] 4.1 g/dL High 1.4-4.0 [facility] Comment on above: Performed By: #### 2 855196, 1168353, 1708746, 1630825, 37237401, 2710792 ####[facility] [address] [place] [address] Protein [Mass/Vol] 8.6 g/dL High 6.0-7.8 [facility] Comment on above: Performed By: #### 2 735833, 6294431, 6143715, 1343174, 20030610, 9615745 ####[place] [address] [place] [address] Lipase Levelon 02-02-2022 Lipase [Catalytic activity/Vol] 57 U/L Normal 13-58 [facility] Comment on above: Performed By: #### 2 594851, 2752059, 2621564, 5050627, 72705333, 5773972 ####[facility] [address] [place] [address] Prescriptions/Work Noteson 1 Prescriptions/Work Notes [id number]#[id number]:12 7 Normal [facility] RAD - Preliminary Cat Scan R eporton 02-02-2022 RAD - Preliminary Cat Scan Report [id number]#[id number]:12 7 Normal [facility] UA With Cult Reflexon 2021 Bacteria LM Ql (Urine sed) 2+ /HPF Abnormal Trace [facility] Comment on above: Performed By: #### 2 570501, 15733568 ####[facility] [address] [place] [address] Bilirubin Ql (U) Negative Normal Negative [facility] Comment on above: Performed By: #### 2 615960, 72985366 ####[facility] [address] [place] [address] Clarity (U) SL CLOUDY Invalid Interpretation Code [facility] Comment on above: Performed By: #### 2 078619, 89698822 ####[facility] [address] [place] [address] Color (U) YELLOW Normal Yellow [facility] Comment on above: Performed By: #### 2 603823, 52030337 ####[facility] [address] [place] [address] Epithelial cells.squamous LM.HPF (Urine sed) [#/Area] 3-4 Normal 0-2 [facility] Comment on above: Performed By: #### 2 547972, 60380206 ####[facility] [address] [place] [address] Glucose Test strip (U) [Mass/Vol] Negative Normal Negative [facility] Comment on above: Performed By: #### 2 001998, 22262663 ####[facility] [address] [place] [address] Hemoglobin Ql (U) 1+ Abnormal Negative [facility] Comment on above: Performed By: #### 2 892803, 51152622 ####[facility] [address] [place] [address] Ketones (U) [Mass/Vol] Negative Normal Negative [facility] Comment on above: Performed By: #### 2 200956, 66125243 ####[facility] [address] [place] [address] [place].plasma/Atq[place] .RBC (Bld) [Mass ratio] 4-20 Normal 0-3 [facility] Comment on above: Performed By: #### 2 918223, 13023458 ####[facility] [address] [place] [address] Nitrite Ql (U) Negative Normal Negative [facility] Comment on above: Performed By: #### 2 255942, 26686381 ####[facility] [address] [place] [address] pH (U) 5.0 [pH] Invalid Interpretation Code 5.0-9.0 [facility] Comment on above: Performed By: #### 2 839146, 49264562 ####[facility] [address] [place] [address] Protein (U) [Mass/Vol] Negative Normal Negative [facility] Comment on above: Performed By: #### 2 341649, 86788243 ####[place] [address] Specific gravity (U) [Rel density] <=1.005 Invalid Interpretation Code 1.005-1.03 0 [facility] Comment on above: Performed By: #### 2 562453, 31948894 ####[place] [address] Type of Urine collection method Clean Catch Normal [facility] Comment on above: Performed By: #### 2 710246, 54824024 ####[place] [address]97057 Urobilinogen Qn (U) 0.2 {Concetta'U}/dL Normal 0.0-1.0 [facility] Comment on above: Performed By: #### 2 092173, 96419788 ####[place] [address]057 WBC Auto Ql (U) 2+ Abnormal Negative [facility] Comment on above: Performed By: #### 2 106143, 72695061 ####[facility] [address] [place], [place] [address] WBC LM.HPF (Urine sed) [#/Area] 26-30 Abnormal 0-5 [facility] Comment on above: Performed By: #### 2 045421, 65218851 ####[facility] [address] [place] [address] US Gallbladderon 02-02-2022 US Gallbladder Exam Date/Time: [...] V. Transcribed by: BENNY Technologist: MLE Normal [facility] eGFRon 02-02-2022 GFR/1.73 sq M.predicted among blacks MDRD (S/P/Bld) [Vol rate/Area] mL/min/{1.73_m2} Normal >=59 [facility] Comment on above: Order Comment: Order added by Discern Expert. Result Comment: eGFR is race adjusted. AA=. Performed By: #### 2 754753, 2339994, 3444786, 6427654, 25788229, 9539903 ####[facility] [address] [place] [address] GFR/1.73 sq M.predicted among non-blacks MDRD (S/P/Bld) [Vol rate/Area] mL/min/{1.73_m2} Normal >=59 [facility] Comment on above: Order Comment: Order added by Discern Expert. Result Comment: [employer] Instructor cj kidney disease could be indicated at eGFR's of less than 60 mL/min/1.73m2. Kidney failure is indicated at less than 15 mL/min/1.73m2. Performed By: #### 2 523334, 5679291, 5539966, 5060310, 32238224, 6088702 ####[facility] [address] [place] [address] CHEMISTRYOrdered By: Jorge ruby on 02-01-2022 Albumin [...] [Mass/Vol] mg/dL Normal 5 - 21 mg/dL [facility] Remisol CHEMISTRYOrdered By: SYSTEM SYSTEM on 02-01-2022 GFR/1.73 sq M.predicted among blacks MDRD (S/P/Bld) [Vol rate/Area] mL/min/1.73 m2 Normal >=59mL/min /1.73 m2 [facility] Chem S GFR/1.73 sq M.predicted among non-blacks MDRD (S/P/Bld) [Vol rate/Area] mL/min/1.73 m2 Normal >=59mL/min /1.73 m2 [facility] Chem S Urea nitrogen/Creatinine [Mass ratio] Unable to Calculate Invalid Interpretation Code [facility] Remisol Consent for Treatmenton 01-08 Consent for Treatment [id number]#1.00CD:12 7 Normal [facility] HEMATOLOGYOrdered By: SYSTEM SYSTEM on 02-01-2022 Basophils/100 [...] Nom (U) >100,000 cfu/ml Gram Negative [facility] Director Of Regulatory Affairs species [facility] SEROLOGYOrdered By: Jorge pop on 02-01-2022 Beta hCG Ql Negative (02/01/22 9:55 PM) Normal [facility] Man Sero URINALYSISOrdered By: Jorge Esquivel on [...] PM) Normal Negative [facility] UA Auto SS [place].plasma/[place] .RBC (Bld) [Mass ratio] 4-20 /HPF Normal [...] [facility] UA Auto SS Urobilinogen Qn (U) 0.2140883 {Concetta'U}/dL Normal 0.0 - 1.0 EU/dL [facility] UA Auto SS WBC Auto Ql (U) 2+ *ABN* (02/01/22 11:42 PM) Invalid Interpretation Code Negative [facility] UA Auto SS WBC LM.HPF (Urine sed) [#/Area] 26-30 /HPF Invalid Interpretation Code 0-5/HPF [facility] UA Auto SS Albumin [Mass/volume] in Ser um or PlasmaOrdered By: Delfino Reese on 01-18-2022 Albumin [Mass/Vol] 3.8 g/dL 3.2-5.5 [facility] C reactive protein [Mass/vol ume] in Serum or PlasmaOrdered By: Delfino Reese on 01-18-2022 CRP [Mass/Vol] 1.9 mg/dL 0.0-1.0 [facility] Creatinine and Glomerular fi ltration rate.predicted panel (S/P/Bld)Ordered By: Delfino Reese on 01-18-2022 Creatinine [Mass/Vol] 0.57 mg/dL 0.44-1.03 [facility] Erythrocyte sedimentation ra te by Photometric methodOrdered By: Delfino Reese on 01-18-2022 ESR Photometric method (Bld) [Velocity] 8 mm/hr 0-19 [facility] Estimated glomerular filtrat ion rate (GFR) non- AmericanOrdered By: Delfino Reese on 01-18-2022 GFR/1.73 sq M.predicted among non-blacks MDRD (S/P/Bld) [Vol rate/Area] > 60 mL/Min [facility] Folate [Mass/volume] in Seru m or PlasmaOrdered By: Delfino Reese on 01-18-2022 Folate [Mass/Vol] 10.4 ng/mL >5.9 [facility] Comment on above: Folate reference ran ge: >5.9 ng/mlThe WHO technical consultation on folate and vitamin z63owcgrtrndpww has determined that folate concentrations lessthan 4 ng/ml are considered deficient. Globulin Calc (S) [Mass/Vol] Ordered By: Delfino Reese on 01-18-2022 Globulin (S) [Mass/Vol] 3.2 g/dL [facility] Laboratory - Chemistry and C hemistry - challengeOrdered By: Delfino Reese on 01-18-2022 Cobalamin (Vitamin B12) [Mass/Vol] 588 pg/mL 180-914 [facility] No Panel InformationOrdered By: Delfino Reese on 01-18-2022 Estimated GFR () > 60 mL/Min [facility] Comment on above: GFR estimated refere nce range: According to KDOQI guidelines, <60 ml/min/1.73m2 is sufficient to diagnose a patient with chronic kidney disease. Pharmacy Creatinine Clearance (Chem N/A [facility] Protein [Mass/volume] in Ser um or PlasmaOrdered By: Delfino Reese on 01-18-2022 Protein [Mass/Vol] 7.0 g/dL 6.1-7.9 [facility] Serum or plasma alanine montes otransferase measurement without P-5'-P (enzymatic activiOrdered By: Delfino Reese on 01-18-2022 ALT No additional P-5'-P [Catalytic activity/Vol] 58 U/L [facility] Serum or plasma albumin/glob ulin mass ratioOrdered By: Delfino Reese on 01-18-2022 Albumin/Globulin [Mass ratio] 1.2 {ratio} [facility] Serum or plasma alkaline florencio sphatase measurement (enzymatic activity/volume)Ordered By: Delfino Reese on 01-18-2022 ALP [Catalytic activity/Vol] 90 U/L 32-92 [facility] Serum or plasma anion gap de terminationOrdered By: Delfino Reese on 01-18-2022 Anion gap [Moles/Vol] 16.5 mmol/L 6.0-15.0 [facility] Serum or plasma aspartate am inotransferase measurement (enzymatic activity/volume)Ordered By: Delfino Reese on 01-18-2022 AST [Catalytic activity/Vol] 84 U/L [facility] Serum or plasma calcium archie urement (mass/volume)Ordered By: Delfino Reese on 01-18-2022 Calcium [Mass/Vol] 9.2 mg/dL 8.2-10.2 [facility] Serum or plasma chloride luz surement (moles/volume)Ordered By: Delfino Reese on 01-18-2022 Chloride [Moles/Vol] 105 mmol/L 95-114 [facility] Serum or plasma glucose archie urement (mass/volume)Ordered By: Delfino Reese on 01-18-2022 Glucose [Mass/Vol] 114 mg/dL 70-100 [facility] Comment on above: ADA recommended refe rence rangeRandom Glucose Reference Range is dependent on time and content of last meal. Glucose of more than 200 mg/dL in a nonstressed, ambulatory subject supports the diagnosis of Diabetes Mellitus. Serum or plasma potassium me asurement (moles/volume)Ordered By: Delfino Reese on 01-18-2022 Potassium [Moles/Vol] 3.5 mmol/L 3.5-5.1 [facility] Serum or plasma sodium measu rement (moles/volume)Ordered By: Delfino Reese on 01-18-2022 Sodium [Moles/Vol] 143 mmol/L 136-146 [facility] Serum or plasma total biliru bin measurement (mass/volume)Ordered By: Delfino Reese on 01-18-2022 Bilirubin [Mass/Vol] 0.8 mg/dL 0.3-1.2 [facility] Serum or plasma total carbon dioxide measurement (moles/volume)Ordered By: Delfino Reese on 01-18-2022 CO2 [Moles/Vol] 25.0 mmol/L 22.0-30.0 [facility] Serum or plasma urea nitroge n measurement (mass/volume)Ordered By: Delfino Reese on 01-18-2022 Urea nitrogen [Mass/Vol] 1 mg/dL 9-23 [facility] TSH DL <= 0.005 mIU/L QnOrde red By: Delfino Reese on 01-18-2022 TSH Qn 7.46 m[IU]/L 0.45-5.33 [facility] Thyroxine (T4) free [Mass/vo lume] in Serum or PlasmaOrdered By: Delfino Reese on 01-18-2022 Free T4 [Mass/Vol] 0.71 ng/dL 0.61-1.12 [facility] Bacteria identified Anaer cx Nom (Unsp spec)Ordered By: Delfino Reese on 12-26-2021 Anaerobic microbial culture No Anaerobes Isolated 3 Days [facility] ABO and Rh group post transf usion reaction Nom (Bld)Ordered By: Delfino Reese on 12-23-2021 Microscopic observation Gram stain Nom (Unsp spec) [facility] Albumin [Mass/volume] in Cer ebral spinal fluidOrdered By: Delfino Reese on 12-23-2021 Albumin (CSF) [Mass/Vol] 14 mg/dL 7-29 [facility] Albumin [Mass/volume] in Ser um or PlasmaOrdered By: Delfino Reese on 12-23-2021 Albumin [Mass/Vol] 4.2 g/dL 3.8-4.8 [facility] CSF IgG/albumin ratioOrdered By: Delfino Reese on 12-23-2021 IgG/Albumin (CSF) [Mass ratio] 0.10 0.00-0.25 [facility] Cerebrospinal fluid IgG inde xOrdered By: Delfino Reese on 12-23-2021 IgG clearance/Albumin clearance (S+CSF) [Ratio] 0.6 0.0-0.7 [facility] Cerebrospinal fluid glucose measurement (mass/volume)Ordered By: Delfino Reese on 12-23-2021 Glucose (CSF) [Mass/Vol] 87 mg/dL 40-70 [facility] Cerebrospinal fluid post-antonia trifugation appearance determinationOrdered By: Delfino Reese on 12-23-2021 Appearance (Spun CSF) Colorless Colorless [facility] Cerebrospinal fluid sample t ube volume measurementOrdered By: Delfino Reese on 12-23-2021 Specimen volume (CSF) 2.0 mL [facility] Color CSFOrdered By: Delfino Reese on 12-23-2021 Color (CSF) Colorless Colorless [facility] IgG [Mass/volume] in Cerebra l spinal fluidOrdered By: Delfino Reese on 12-23-2021 IgG (CSF) [Mass/Vol] 1.4 mg/dL 0.0-6.7 [facility] IgG [Mass/volume] in Serum o r PlasmaOrdered By: Delfino Reese on 12-23-2021 IgG [Mass/Vol] 708 mg/dL 586-1602 [facility] IgG synthesis rate [Mass/aleksey e] in Serum and CSF by calculationOrdered By: Delfino Reese on 12-23-2021 IgG synthesis rate Calc (S+CSF) [Mass/Time] -1.0 mg/day -9.9 TO +3.3 [facility] Comment on above: Performed at: [facility] [facility] [address] [place] [address] [place], [place] [id number] Guzzler Builder: Torsten Vidal PhD, Phone: [phone] Performed at: [facility] [facility] [address] [place], [place] [id number] Director: Torsten Vidal PhD, Phone: [phone] Manual cerebrospinal fluid e rythrocytes count (number/volume)Ordered By: Delfino Reese on 12-23-2021 RBC Manual cnt (CSF) [#/Vol] 77 /uL [facility] Comment on above: The reference interv al and other method performance specifications have not been established for this body fluid. The test result must be integrated into the clinical context for interpretation. No Panel InformationOrdered By: Delfino Reese on 12-23-2021 CSF Appearance Clear Clear [facility] CSF Eosinophils N/A [facility] CSF Lymphocytes 1 [facility] Comment on above: The reference interv al and other method performance specifications have not been established for this body fluid. The test result must be integrated into the clinical context for interpretation. CSF Monocytes 1 [facility] Comment on above: The reference interv al and other method performance specifications have not been established for this body fluid. The test result must be integrated into the clinical context for interpretation. CSF Myelin Basic Protein 3.3 ng/mL 0.0-3.7 [facility] Comment on above: Results of this test are labeled for research purposes only by the assay's supervisor spinning. The performance characteristics of this assay have not been established by the supervisor spinning. The result should not be used for treatment or for diagnostic purposes without confirmation of the diagnosis by another medically established diagnostic product or procedure. The performance characteristics were determined by [employer]. Performed at: [address] [id number] Guzzler Builder: Charlie Manriquez MD, Phone: [phone] Results of this test are labeled for research purposes onlyby the assay's supervisor spinning. The performancecharacteristics of this assay have not been established bythe supervisor spinning. The result should not be used fortreatment or for diagnostic purposes without confirmationof the diagnosis by another medically establisheddiagnostic product or procedure. The performancecharacteristics were determined by [employer].Performed at: - [address] [id number] Director: Charlie Manriquez MD, Phone: [phone] CSF Neutrophils N/A [facility] CSF Total Cells Counted 2 [facility] CSF Tube Number Tube number: 1 [facility] Nucleated cells [#/volume] i n Cerebral spinal fluid by Manual countOrdered By: Delfino Reese on 12-23-2021 Nucleated cells Manual cnt (CSF) [#/Vol] 0.002 10*3/uL 0-5 [facility] Protein [Mass/volume] in Cer ebral spinal fluidOrdered By: Delfino Reese on 12-23-2021 Protein (CSF) [Mass/Vol] 23 mg/dL 15-45 [facility] Protein fractions.oligoclona l bands.intrathecal [Presence] in Serum and CSFOrdered By: Delfino Reese on 12-23-2021 Protein fractions.oligoclonal bands.intrathecal Ql (S+CSF) See comment . [facility] Comment on above: Zero (0) oligoclonal bands [...] (IEF) and immunoblotting methodology. Performed at: [address] [id number] [employer]: Torsten Vidal PhD, Phone: [phone] Zero (0) oligoclonal bands were observed in [...] using IsoelectricFocusing (IEF) and immunoblotting methodology.Performed at: [address] [id number] Director: Torsten Vidal PhD, Phone: [phone] Basophils Auto (Bld) [#/Vol] Ordered By: Avery Blanca on 11-25-2021 Basophils (Bld) [#/Vol] 0.0 10*3/uL 0.0-0.2 [facility] Basophils/100 WBC Auto (Bld) Ordered By: Avery Blanca on 11-25-2021 Basophils/100 WBC (Bld) 0.5 % . [facility] Blood hemoglobin measurement (mass/volume)Ordered By: Avery Blanca on 11-25-2021 Hemoglobin (Bld) [Mass/Vol] 15.4 g/dL 11.8-15.4 [facility] Blood leukocytes automated c ount (number/volume)Ordered By: Avery Blanca on 11-25-2021 WBC (Bld) [#/Vol] 5.3 10*3/uL 4.5-11.0 [facility] Blood thiamine measurement ( moles/volume)Ordered By: Avery Blanca on 11-25-2021 Thiamine (Bld) [Moles/Vol] 113.7 nmol/L 66.5-200.0 [facility] Comment on above: This test was develo ped and its performance characteristics determined by [employer]. It has not been cleared or approved by the Food and Drug Administration. Performed at: [address] [id number] [employer] Builder: Charlie Manriquez MD, Phone: [phone] This test was develo ped and its performance characteristicsdetermined by [employer]. It has not been cleared orapproved by the Food and Drug Administration.Performed at: [facility] [id number] Director: Charlie Manriquez MD, Phone: [phone] Body fluid albumin measureme nt (mass/volume)Ordered By: Avery Blanca on 11-25-2021 Albumin (Body fld) [Mass/Vol] 4.0 g/dL 3.2-5.5 [facility] Creatinine and Glomerular fi ltration rate.predicted panel (S/P/Bld)Ordered By: Avery Blanca on 11-25-2021 Creatinine [Mass/Vol] 0.67 mg/dL 0.44-1.03 [facility] Eosinophils Auto (Bld) [#/Vo l]Ordered By: Avery Blanca on 11-25-2021 Eosinophils (Bld) [#/Vol] 0.1 10*3/uL 0.0-0.45 [facility] Eosinophils/100 WBC Auto (Bl d)Ordered By: Avery Blanca on 11-25-2021 Eosinophils/100 WBC (Bld) 1.3 % . [facility] Erythrocyte distribution wid th Auto (RBC) [Ratio]Ordered By: Avery Blanca on 11-25-2021 Erythrocyte distribution width (RBC) [Ratio] 13.5 % 11.9-15.3 [facility] Erythrocyte sedimentation ra te by Photometric methodOrdered By: Avery Blanca on 11-25-2021 ESR Photometric method (Bld) [Velocity] 14 mm/hr 0- [facility] Estimated glomerular filtrat ion rate (GFR) non- AmericanOrdered By: Avery Blanca on 11-25-2021 GFR/1.73 sq M.predicted among non-blacks MDRD (S/P/Bld) [Vol rate/Area] > 60 mL/Min [facility] Folate [Mass/volume] in Seru m or PlasmaOrdered By: Avery Blanca on 11-25-2021 Folate [Mass/Vol] 9.2 ng/mL >5.9 [facility] Comment on above: Folate reference ran ge: >5.9 ng/ml The WHO technical consultation on folate and vitamin b12 deficiencies has determined that folate concentrations less than 4 ng/ml are considered deficient. Folate reference ran ge: >5.9 ng/mlThe WHO technical consultation on folate and vitamin [id number] has determined that folate concentrations lessthan 4 ng/ml are considered deficient. Globulin Calc (S) [Mass/Vol] Ordered By: Avery Blanca on 11-25-2021 Globulin (S) [Mass/Vol] 2.9 g/dL [facility] Hematocrit Auto (Bld) [Volum e fraction]Ordered By: Avery Blanca on 11-25-2021 Hematocrit (Bld) [Volume fraction] 45.2 % 34.0-46.4 [facility] - Chemistry and C hemistry - challengeOrdered By: Avery Blanca on 11-25-2021 Cobalamin (Vitamin B12) [Mass/Vol] 421 pg/mL 180-914 [facility] - Hematology and Cell countsOrdered By: Avery Blanca on 11-25-2021 Nucleated RBC/100 WBC (Bld) [Ratio] 0.6 % 0-0.5 [facility] Lymphocytes Auto (Bld) [#/Vo l]Ordered By: Avery Blanca on 11-25-2021 Lymphocytes (Bld) [#/Vol] 0.8 10*3/uL 1.00-4.8 [facility] Lymphocytes/100 WBC Auto (Bl d)Ordered By: Avery Blanca on 11-25-2021 Lymphocytes/100 WBC (Bld) 14.8 % . [facility] MCH Auto (RBC) [Entitic mass ]Ordered By: Avery Blanca on 11-25-2021 MCH (RBC) [Entitic mass] 32.3 pg 24.7-34.3 [facility] MCHC Auto (RBC) [Mass/Vol]Or dered By: Avery Blanca on 11-25-2021 MCHC (RBC) [Mass/Vol] 34.0 g/dL 32.0-35.0 [facility] MCV Auto (RBC) [Entitic vol] Ordered By: Avery Blanca on 11-25-2021 MCV (RBC) [Entitic vol] 95.1 fL 80-100 [facility] Monocytes Auto (Bld) [#/Vol] Ordered By: Avery Blanca on 11-25-2021 Monocytes (Bld) [#/Vol] 0.2 10*3/uL 0.0-0.8 [facility] Monocytes/100 WBC Auto (Bld) Ordered By: Avery Blanca on 11-25-2021 Monocytes/100 WBC (Bld) 3.4 % . [facility] Neutrophils Auto (Bld) [#/Vo l]Ordered By: Avery Blanca on 11-25-2021 Neutrophils (Bld) [#/Vol] 4.2 10*3/uL 1.8-7.7 [facility] Neutrophils/100 WBC Auto (Bl d)Ordered By: Avery Blanca on 11-25-2021 Neutrophils/100 WBC (Bld) 80.0 % . [facility] No Panel InformationOrdered By: Avery Blanca on 11-25-2021 Estimated GFR () > 60 mL/Min [facility] Comment on above: GFR estimated refere nce range: According to KDOQI guidelines, <60 ml/min/1.73m2 is sufficient to diagnose a patient with chronic kidney disease. Pharmacy Creatinine Clearance (Chem N/A [facility] Platelet mean volume Auto (B ld) [Entitic vol]Ordered By: Avery Blanca on 11-25-2021 Platelet mean volume (Bld) [Entitic vol] 9.1 fL 6.3-10.7 [facility] Platelets Auto (Bld) [#/Vol] Ordered By: Avery Blanca on 11-25-2021 Platelets (Bld) [#/Vol] 210 10*3/uL 150-450 [facility] Protein [Mass/volume] in Ser um or PlasmaOrdered By: Avery Blanca on 11-25-2021 Protein [Mass/Vol] 6.9 g/dL 6.1-7.9 [facility] RBC Auto (Bld) [#/Vol]Ordere d By: Avery Blanca on 11-25-2021 RBC (Bld) [#/Vol] 4.75 10*6/uL 3.60-5.00 [facility] Serum or plasma alanine montes otransferase measurement without P-5'-P (enzymatic activiOrdered By: Avery Blanca on 11-25-2021 ALT No additional P-5'-P [Catalytic activity/Vol] 130 U/L 10-60 [facility] Serum or plasma albumin/glob ulin mass ratioOrdered By: Avery Blanca on 11-25-2021 Albumin/Globulin [Mass ratio] 1.4 {ratio} [facility] Serum or plasma alkaline florencio sphatase measurement (enzymatic activity/volume)Ordered By: Avery Blanca on 11-25-2021 ALP [Catalytic activity/Vol] 74 U/L 32-92 [facility] Serum or plasma aspartate am inotransferase measurement (enzymatic activity/volume)Ordered By: Avery Blanca on 11-25-2021 AST [Catalytic activity/Vol] 117 U/L 10-42 [facility] Serum or plasma calcium archie urement (mass/volume)Ordered By: Avery Blanca on 11-25-2021 Calcium [Mass/Vol] 9.6 mg/dL 8.2-10.2 [facility] Serum or plasma chloride luz surement (moles/volume)Ordered By: Avery Blanca on 11-25-2021 Chloride [Moles/Vol] 98 mmol/L 95-114 [facility] Serum or plasma glucose archie urement (mass/volume)Ordered By: Avery Blanca on 11-25-2021 Glucose [Mass/Vol] 121 mg/dL 70-100 [facility] Comment on above: ADA recommended refe [...] on 11-25-2021 Potassium [Moles/Vol] 3.6 mmol/L 3.5-5.1 [facility] Serum or plasma sodium measu rement (moles/volume)Ordered By: Avery Blanca on 11-25-2021 Sodium [Moles/Vol] 139 mmol/L 136-146 [facility] Serum or plasma total biliru bin measurement (mass/volume)Ordered By: Avery Blanca on 11-25-2021 Bilirubin [Mass/Vol] 0.8 mg/dL 0.3-1.2 [facility] Serum or plasma total carbon dioxide measurement (moles/volume)Ordered By: Avery Blanca on 11-25-2021 CO2 [Moles/Vol] 28.4 mmol/L 22.0-30.0 [facility] Serum or plasma urea nitroge n measurement (mass/volume)Ordered By: Avery Blanca on 11-25-2021 Urea nitrogen [Mass/Vol] 5 mg/dL 9-23 [facility] TSH DL <= 0.005 mIU/L QnOrde red By: Avery Blanca on 11-25-2021 TSH Qn 2.02 m[IU]/L 0.45-5.33 [facility] AMYLASEon 11-20-2021 Amylase [Catalytic activity/Vol] 15 U/L Critically low 25-115 [facility] Comment on above: Performed By: #### L IPA, NGA, CMP #### [facility] [address] [place] [address] Dr. Angela Aguero CBC W MANUAL DIFFon 11-21-19 22 ATYPICAL LYMPH # Normal [facility] Comment on above: Performed By: #### C KRISHAN #### [facility] [address] [address] [address] Angela Aguero ATYPICAL LYMPH % Normal [facility] Comment on above: Performed By: #### C KRISHAN #### [facility] [address] [address] [address] Angela Aguero BAND # 0.2 103/ul Normal 0.0-0.3 [facility] Comment on above: Performed By: #### C BCMAN #### [facility] [address] [place] [address] Dr. Angela Aguero BAND % 3 % Normal 0-5 [facility] Comment on above: Performed By: #### C BCMAN #### [facility] [address] [place] [address] Dr. Angela Aguero BASOM # 0.00 103/ul Normal 0.00-0.10 [facility] Comment on above: Performed By: #### C BCMAN #### [facility] [address] [place] [address] Dr. Angela Aguero BASOM % 0.0 % Critically low 0.2-2.0 [facility] Comment on above: Performed By: #### C BCSOLANGE #### [facility] [address] [place] [address] Dr. Angela Aguero BLAST # Normal [facility] Comment on above: Performed By: #### C KRISHAN #### [facility] [address] [place] [address] Dr. Angela Aguero BLAST % Normal [facility] Comment on above: Performed By: #### C BCSOLANGE #### [facility] [address] [place] [address] Dr. Angela Aguero CORRECTED WBC Normal 4.0-11.0 [facility] Comment on above: Performed By: #### C BCMAN #### [facility] [address] [place] [address] Dr. Angela Aguero EOS # 0.00 103/ul Normal 0.00-0.70 [facility] Comment on above: Performed By: #### C BCMAN #### [facility] [address] [place] [address] Dr. Angela Aguero EOS% 0.0 % Critically low 0.9-7.0 [facility] Comment on above: Performed By: #### C BCSOLANGE #### [facility] [address] [place] [address] Dr. Angela Aguero HCT 41.2 % Normal 36.0-48.0 [facility] Comment on above: Performed By: #### C KRISHAN #### [facility] [address] [place] [address] Dr. Angela Aguero HGB 14.2 g/dl Normal 12.0-16.0 [facility] Comment on above: Performed By: #### C KRISHAN #### [facility] [address] [place] [address] Dr. Angela Aguero LYMPHM # 0.19 103/ul Critically low 1.20-3.80 [facility] Comment on above: Performed By: #### C KRISHAN #### [facility] [address] [place] [address] Dr. Angela Aguero LYMPHM% 3.0 % Critically low 20.5-60.0 [facility] Comment on above: Performed By: #### C KRISHAN #### [facility] [address] [place] [address] Dr. Angela Aguero MCH 32.4 pg Normal 26.7-34.0 [facility] Comment on above: Performed By: #### C KRISHAN #### [facility] [address] [place] [address] Dr. Angela Aguero MCHC 34.5 g/dl Normal 29.9-35.2 [facility] Comment on above: Performed By: #### C KRISHAN #### [facility] [address] [place] [address] Dr. Angela Aguero MCV 94.1 fL Normal 81.0-99.0 [facility] Comment on above: Performed By: #### C KRISHAN #### [facility] [address] [place] [address] Dr. Angela Aguero METAMYELOCYTE # Normal [facility] Comment on above: Performed By: #### C KRISHAN #### [facility] [address] [place] [address] Dr. Angela Aguero METAMYELOCYTE % Normal [facility] Comment on above: Performed By: #### C KRISHAN #### [facility] [address] [address] [address] Angela Aguero MONOM# 0.32 103/ul Normal 0.30-0.80 [facility] Comment on above: Performed By: #### C KRISHAN #### [facility] [address] [place] [address] Dr. Angela Aguero MONOM% 5.0 % Normal 1.7-12.0 [facility] Comment on above: Performed By: #### C KRISHAN #### [facility] [address] [place] [address] Dr. Angela Aguero MPV 10.4 fL Normal 9.5-13.5 [facility] Comment on above: Performed By: #### C KRISHAN #### [facility] [address] [place] [address] Dr. Angela Aguero MYELOCYTE # Normal [facility] Comment on above: Performed By: #### Jeannette NICKERSON #### [facility] [address] [place] [address] Dr. Angela Aguero MYELOCYTE % Normal [facility] Comment on above: Performed By: #### C KRISHAN #### [facility] [address] [place] [address] Dr. Angela Aguero NRBC Normal [facility] Comment on above: Performed By: #### C KRISHAN #### [facility] [address] [place] [address] Dr. Angela Aguero PLT 204 103/ul Normal 150-450 [facility] Comment on above: Performed By: #### C KRISHAN #### [facility] [address] [place] [address] Dr. Angela Aguero RBC 4.38 106/ul Normal 4.20-5.40 [facility] Comment on above: Performed By: #### C KRISHAN #### [facility] [address] [place] [address] Dr. Angela Aguero RDW 12.4 % Normal 11.0-15.0 [facility] Comment on above: Performed By: #### C KRISHAN #### [facility] [address] [place] [address] Dr. Angela Aguero SEG # 5.70 103/ul Normal 1.40-6.50 [facility] Comment on above: Performed By: #### C KRISHAN #### [facility] [address] [address] [address] Angela Aguero SEG % 89.0 % Critically high 43.0-75.0 [facility] Comment on above: Performed By: #### C KRISHAN #### [facility] [address] [address] [address] Angela Aguero WBC 6.4 103/ul Normal 4.0-11.0 [facility] Comment on above: Performed By: #### C KRISHAN #### [facility] [address] [address] [address] Angela Aguero CRPon 11-20-2021 CRP [Mass/Vol] mg/L Normal <=1.0 [facility] Comment on above: Performed By: #### L NGA SMITH, CMP #### [facility] [address] [place] [address] Dr. Angela Aguero LIPASEon 11-20-2021 Lipase [Catalytic activity/Vol] 28.0 U/L Critically low 73.0-393.0 [facility] Comment on above: Performed By: #### L NGA SMITH, CMP #### [facility] [address] [place] [address] Dr. Angela Aguero PROF 14(COMP METB)on 022 Albumin [Mass/Vol] 3.4 g/dL Normal 3.4-5.0 [facility] Comment on above: Performed By: #### L NGA SMITH, CMP #### [facility] [address] [place] [address] Dr. Angela Aguero Albumin/Globulin [Mass ratio] 1.0 {ratio} Normal [facility] Comment on above: Performed By: #### L NGA SMITH, CMP #### [facility] [address] [place] [address] Dr. Angela Aguero ALP [Catalytic activity/Vol] 63 U/L Normal 46-116 [facility] Comment on above: Performed By: #### L IPA, NGA, CMP #### [facility] [address] [address] [address] Angela Aguero ALT [Catalytic activity/Vol] 55 U/L Normal 14-59 [facility] Comment on above: Performed By: #### L IPA, NGA, CMP #### [facility] [address] [address] [address] Angela Aguero Anion gap [Moles/Vol] 13.3 mmol/L Normal [facility] Comment on above: Performed By: #### L IPA, NGA, CMP #### [facility] [address] [address] [address] Angela Aguero AST [Catalytic activity/Vol] 39 U/L Critically high 15-37 [facility] Comment on above: Performed By: #### L IPA, NGA, CMP #### [facility] [address] [place] [address] Dr. Angela Aguero Bilirubin [Mass/Vol] 1.1 mg/dL Critically high 0.2-1.0 [facility] Comment on above: Performed By: #### L IPA, NGA, CMP #### [facility] [address] [place] [address] Dr. Angela Aguero Calcium [Mass/Vol] 7.9 mg/dL Critically low 8.5-10.1 [facility] Comment on above: Performed By: #### L IPA, NGA, CMP #### [facility] [address] [place] [address] Dr. Angela Aguero Chloride [Moles/Vol] 103 mmol/L Normal 98-107 [facility] Comment on above: Performed By: #### L IPA, NGA, CMP #### [facility] [address] [place] [address] Dr. Angela Aguero CO2 [Moles/Vol] 26.9 mmol/L Normal 21.0-32.0 [facility] Comment on above: Performed By: #### L IPA, NGA, CMP #### [facility] [address] [place] [address] Dr. Angela Aguero Creatinine [Mass/Vol] 0.81 mg/dL Normal 0.55-1.02 [facility] Comment on above: Performed By: #### L NGA SMITH, CMP #### [facility] [address] [place] [address] Dr. Angela Aguero EGFR-AF AFGHAN >60 Normal >=60 [facility] Comment on above: Performed By: #### L NGA SMITH, CMP #### [facility] [address] [address] [address] Angela Aguero EGFR-NON AF AFGHAN >60 Normal >=60 [facility] Comment on above: Performed By: #### L NGA SMITH, CMP #### [facility] [address] [place] [address] Dr. Angela Aguero Globulin (S) [Mass/Vol] 3.3 g/dL Normal [facility] Comment on above: Performed By: #### L NGA SMITH, CMP #### [facility] [address] [place] [address] Dr. Angela Aguero Glucose [Mass/Vol] 185 mg/dL Critically high 74-106 [facility] Comment on above: Performed By: #### L NGA SMITH, CMP #### [facility] [address] [place] [address] Dr. Angela Aguero Potassium [Moles/Vol] 3.2 mmol/L Critically low 3.5-5.1 [facility] Comment on above: Performed By: #### L NGA SMITH, CMP #### [facility] [address] [place] [address] Dr. Angela Aguero Protein [Mass/Vol] 6.7 g/dL Normal 6.4-8.2 [facility] Comment on above: Performed By: #### L NGA SMITH, CMP #### [facility] [address] [place] [address] Dr. Angela Aguero Sodium [Moles/Vol] 140 mmol/L Normal 136-145 [facility] Comment on above: Performed By: #### L NGA SMITH, CMP #### [facility] [address] [place] [address] Dr. Angela Aguero Urea nitrogen [Mass/Vol] 8.0 mg/dL Normal 7.0-18.0 [facility] Comment on above: Performed By: #### L IPA, NGA, CMP #### [facility] [address] [place] [address] Dr. Angela Aguero Urea nitrogen/Creatinine [Mass ratio] 9.9 mg/mg Normal [facility] Comment on above: Performed By: #### L IPA, NGA, CMP #### [facility] [address] [place] [address] Dr. Angela Aguero SED RATE WESTERGRENon 2021 SED RATE 3 mm/hr Normal <=20 [facility] Comment on above: Performed By: #### S EDR #### [facility] [address] [place] [address] Dr. Angela Aguero AMYLASEon 11-19-2021 Amylase [Catalytic activity/Vol] 17 U/L Critically low 25-115 [facility] Comment on above: Performed By: #### C MP, NGA, CRP, LIPA #### [facility] [address] [place] [address] Dr. Angela Aguero CBC AUTO DIFFon 11-19-2021 BASO # 0.0 103/ul Normal 0.0-0.1 [facility] Comment on above: Performed By: #### L IPA, NGA, CMP #### [facility] [address] [place] [address] Dr. Angela Aguero Basophils/100 WBC (Bld) 0.6 % Normal 0.2-2.0 [facility] Comment on above: Performed By: #### L IPA, NGA, CMP #### [facility] [address] [place] [address] Dr. Angela Aguero EO # 0.0 103/ul Normal 0.0-0.7 [facility] Comment on above: Performed By: #### L IPA, NGA, CMP #### [facility] [address] [place] [address] Dr. Angela Aguero Eosinophils/100 WBC (Bld) 0.0 % Critically low 0.9-7.0 [facility] Comment on above: Performed By: #### L NGA SMITH, CMP #### [facility] [address] [place] [address] Dr. Angela Aguero Erythrocyte distribution width (RBC) [Ratio] 12.9 % Normal 11.0-15.0 [facility] Comment on above: Performed By: #### L NGA SIMTH, CMP #### [facility] [address] [place] [address] Dr. Angela Aguero Hematocrit (Bld) [Volume fraction] 43.3 % Normal 36.0-48.0 [facility] Comment on above: Performed By: #### L NGA SMITH, CMP #### [facility] [address] [place] [address] Dr. Angela Aguero Hemoglobin (Bld) [Mass/Vol] 14.7 g/dL Normal 12.0-16.0 [facility] Comment on above: Performed By: #### L NGA SMITH, CMP #### [facility] [address] [place] [address] Dr. Angela Aguero IG # 0.02 10e3/ul Normal 0.00-0.03 [facility] Comment on above: Performed By: #### L NGA SMITH, CMP #### [facility] [address] [place] [address] Dr. Angela Aguero IG % 0.6 % Critically high 0.0-0.5 [facility] Comment on above: Performed By: #### L NGA SMITH, CMP #### [facility] [address] [place] [address] Dr. Angela Aguero LYMPH # 0.3 103/ul Critically low 1.2-3.8 [facility] Comment on above: Performed By: #### L NGA SMITH, CMP #### [facility] [address] [place] [address] Dr. Angela Aguero Lymphocytes/100 WBC (Bld) 8.9 % Critically low 20.5-60.0 [facility] Comment on above: Performed By: #### L NGA SMITH, CMP #### [facility] [address] [place] [address] Dr. Angela Aguero MANUAL DIFF REQ NO Normal [facility] Comment on above: Performed By: #### L NGA SMITH, CMP #### [facility] [address] [place] [address] Dr. Angela Aguero MCH (RBC) [Entitic mass] 32.5 pg Normal 26.7-34.0 [facility] Comment on above: Performed By: #### L NGA SMITH, CMP #### [facility] [address] [place], [place] [address] Dr. Angela Aguero MCHC (RBC) [Mass/Vol] 33.9 g/dL Normal 29.9-35.2 [facility] Comment on above: Performed By: #### L NGA SMITH, CMP #### [facility] [address] [place] [address] Dr. Angela Aguero MCV (RBC) [Entitic vol] 95.6 fL Normal 81.0-99.0 [facility] Comment on above: Performed By: #### L NGA SMITH, CMP #### [facility] [address] [place] [address] Dr. Angela Aguero MONO # 0.0 103/ul Critically low 0.3-0.8 [facility] Comment on above: Performed By: #### L NGA SMITH, CMP #### [facility] [address] [place] [address] Dr. Angela Aguero Monocytes/100 WBC (Bld) 0.6 % Critically low 1.7-12.0 [facility] Comment on above: Performed By: #### L NGA SMITH, CMP #### [facility] [address] [place] [address] Dr. Angela Aguero NEUT # 3.1 103/ul Normal 1.4-6.5 [facility] Comment on above: Performed By: #### L NGA SMITH, CMP #### [facility] [address] [place] [address] Dr. Angela Aguero Neutrophils/100 WBC (Bld) 89.3 % Critically high 43.0-75.0 [facility] Comment on above: Performed By: #### L IPA, NGA, CMP #### [facility] [address] [address] [address] Angela Aguero Platelet mean volume (Bld) [Entitic vol] 10.6 fL Normal 9.5-13.5 [facility] Comment on above: Performed By: #### L IPA, NGA, CMP #### [facility] [address] [address] [address] Angela Aguero PLT 212 103/ul Normal 150-450 [facility] Comment on above: Performed By: #### L IPA, NGA, CMP #### [facility] [address] [address] [address] Angela Aguero RBC 4.53 106/ul Normal 4.20-5.40 [facility] Comment on above: Performed By: #### L IPA, NGA, CMP #### [facility] [address] [place] [address] Dr. Angela Aguero WBC 3.5 103/ul Critically low 4.0-11.0 [facility] Comment on above: Performed By: #### L IPA, NGA, CMP #### [facility] [address] [place] [address] Dr. Angela Aguero CRPon 11-19-2021 CRP [Mass/Vol] mg/L Normal <=1.0 [facility] Comment on above: Performed By: #### C MP, NGA, CRP, LIPA #### [facility] [address] [address] [address] Angela Aguero ER URINE PROFILEon 2 Bilirubin Ql (U) Negative Normal NEGATIVE [facility] Comment on above: Performed By: #### L IPA, NGA, CMP #### [facility] [address] [place] [address] Dr. Angela Aguero Clarity (U) CLEAR Normal CLEAR [facility] Comment on above: Performed By: #### L IPA, NGA, CMP #### [facility] [address] [place] [address] Dr. Angela Aguero Color (U) DK. ORANGE Abnormal YELLOW [facility] Comment on above: Performed By: #### L IPA NGA, CMP #### [facility] [address] [address] [address] Angela CARRASCO A micrscopic examina tion will be performed if indicated. Normal [facility] Comment on above: Performed By: #### L IPA NGA, CMP #### [facility] [address] [address] [address] Angela Aguero Glucose Ql (U) Negative Normal NEGATIVE [facility] Comment on above: Performed By: #### L IPA NGA, CMP #### [facility] [address] [address] [address] Angela Aguero Hemoglobin Ql (U) Negative Normal NEGATIVE [facility] Comment on above: Performed By: #### L IPA NGA, CMP #### [facility] [address] [place] [address] Dr. Angela Aguero Ketones Ql (U) 40 mg/dl Abnormal NEGATIVE [facility] Comment on above: Performed By: #### L IPA NGA, CMP #### [facility] [address] [place] [address] Dr. Angela Aguero LEUKOCYTES Negative Normal NEGATIVE [facility] Comment on above: Performed By: #### L IPA NGA, CMP #### [facility] [address] [place] [address] Dr. Angela Aguero Nitrite Ql (U) Negative Normal NEGATIVE [facility] Comment on above: Performed By: #### L IPA NGA, CMP #### [facility] [address] [place] [address] Dr. Angela Aguero pH (U) 5.5 [pH] Normal 5-9 [facility] Comment on above: Performed By: #### L IPA NGA, CMP #### [facility] [address] [place] [address] Dr. Anegla Aguero Protein (U) [Mass/Vol] 30 mg/dL Abnormal NEGAT DARIO/ TRACE [facility] Comment on above: Performed By: #### L IPA NGA, CMP #### [facility] [address] [place] [address] Dr. Angela Aguero SPEC GRAVITY >=1.030 Abnormal 1.005-<=1. 025 [facility] Comment on above: Performed By: #### L IPANGA, CMP #### [facility] [address] [place] [address] Dr. Angela Aguero UR MICRO IND INDICATED Normal [facility] Comment on above: Performed By: #### L IPA NGA, CMP #### [facility] [address] [place] [address] Dr. Angela Aguero Urobilinogen Qn (U) 1.0 {Concetta'U}/dL Normal 0.2 - 1. 0 [facility] Comment on above: Performed By: #### L IPA NGA, CMP #### [facility] [address] [place] [address] Dr. Angela Aguero LIPASEon 11-19-2021 Lipase [Catalytic activity/Vol] 22.0 U/L Critically low 73.0-393.0 [facility] Comment on above: Performed By: #### C MP, NGA, CRP, LIPA #### [facility] [address] [place] [address] Dr. Angela Aguero PROF 14(COMP METB)on 022 Albumin [Mass/Vol] 3.7 g/dL Normal 3.4-5.0 [facility] Comment on above: Performed By: #### C MP, NGA, CRP, LIPA #### [facility] [address] [place] [address] Dr. Angela Aguero Albumin/Globulin [Mass ratio] 1.0 {ratio} Normal [facility] Comment on above: Performed By: #### C MP, NGA, CRP, LIPA #### [facility] [address] [place] [address] Dr. Angela Aguero ALP [Catalytic activity/Vol] 73 U/L Normal 46-116 [facility] Comment on above: Performed By: #### C MP, NGA, CRP, LIPA #### [facility] [address] [place] [address] Dr. Angela Aguero ALT [Catalytic activity/Vol] 78 U/L Critically high 14-59 [facility] Comment on above: Performed By: #### C MP, NGA, CRP, LIPA #### [facility] [address] [address] [address] Angela Aguero Anion gap [Moles/Vol] 16.5 mmol/L Normal [facility] Comment on above: Performed By: #### C MP, NGA, CRP, LIPA #### [facility] [address] [address] [address] Angela Aguero AST [Catalytic activity/Vol] 62 U/L Critically high 15-37 [facility] Comment on above: Performed By: #### C MP, NGA, CRP, LIPA #### [facility] [address] [place] [address] Dr. Angela Aguero Bilirubin [Mass/Vol] 1.3 mg/dL Critically high 0.2-1.0 [facility] Comment on above: Performed By: #### C MP, NGA, CRP, LIPA #### [facility] [address] [place] [address] Dr. Angela Aguero Calcium [Mass/Vol] 8.2 mg/dL Critically low 8.5-10.1 [facility] Comment on above: Performed By: #### C MP, NGA, CRP, LIPA #### [facility] [address] [place] [address] Dr. Angela Aguero Chloride [Moles/Vol] 101 mmol/L Normal 98-107 [facility] Comment on above: Performed By: #### C MP, NGA, CRP, LIPA #### [facility] [address] [place] [address] Dr. Angela Aguero CO2 [Moles/Vol] 23.5 mmol/L Normal 21.0-32.0 [facility] Comment on above: Performed By: #### C MP, NGA, CRP, LIPA #### [facility] [address] [place] [address] Dr. Angela Aguero Creatinine [Mass/Vol] 0.81 mg/dL Normal 0.55-1.02 [facility] Comment on above: Performed By: #### C MP, NGA, CRP, LIPA #### [facility] [address] [address] [address] Angela Aguero EGFR-AF AFGHAN >60 Normal >=60 [facility] Comment on above: Performed By: #### C MP, NGA, CRP, LIPA #### [facility] [address] [address] [address] Angela Aguero EGFR-NON AF AFGHAN >60 Normal >=60 [facility] Comment on above: Performed By: #### C MP, NGA, CRP, LIPA #### [facility] [address] [address] [address] Angela Aguero Globulin (S) [Mass/Vol] 3.7 g/dL Normal [facility] Comment on above: Performed By: #### C MP, NGA, CRP, LIPA #### [facility] [address] [address] [address] Angela Aguero Glucose [Mass/Vol] 190 mg/dL Critically high 74-106 [facility] Comment on above: Performed By: #### C MP, NGA, CRP, LIPA #### [facility] [address] [address] [address] Angela Aguero Potassium [Moles/Vol] 4.0 mmol/L Normal 3.5-5.1 [facility] Comment on above: Performed By: #### C MP, NGA, CRP, LIPA #### [facility] [address] [address] [address] Angela Aguero Protein [Mass/Vol] 7.4 g/dL Normal 6.4-8.2 [facility] Comment on above: Performed By: #### C MP, NGA, CRP, LIPA #### [facility] [address] [place] [address] Dr. Angela Aguero Sodium [Moles/Vol] 137 mmol/L Normal 136-145 [facility] Comment on above: Performed By: #### C MP, NGA, CRP, LIPA #### [facility] [address] [place] [address] Dr. Angela Aguero Urea nitrogen [Mass/Vol] 5.0 mg/dL Critically low 7.0-18.0 [facility] Comment on above: Performed By: #### C MP, NGA, CRP, LIPA #### [facility] [address] [place] [address] Dr. Angela Aguero Urea nitrogen/Creatinine [Mass ratio] 6.2 mg/mg Normal [facility] Comment on above: Performed By: #### C MP, NGA, CRP, LIPA #### [facility] [address] [place] [address] Dr. Angela Aguero SED RATE WESTERGRENon 2021 SED RATE 10 mm/hr Normal <=20 [facility] Comment on above: Performed By: #### L NGA SMITH, CMP #### [facility] [address] [place] [address] Dr. Angela Aguero URINE MICROSCOPIC ONLYon BACTERIA TRACE Abnormal NONE SEEN [facility] Comment on above: Performed By: #### L NGA SMITH, CMP #### [facility] [address] [place] [address] Dr. Angela Aguero Bacteria identified Cx Nom (U) NOT INDICATED Normal [facility] Comment on above: Performed By: #### L NGA SMITH, CMP #### [facility] [address] [place] [address] Dr. Angela Aguero CAST SEEN Abnormal NONE SEEN [facility] Comment on above: Performed By: #### L LUIS NGA, CMP #### [facility] [address] [place] [address] Dr. Angeal Aguero Crystals LM Nom (Urine sed) NONE SEEN Normal NONE SEEN [facility] Comment on above: Performed By: #### L NGA SMITH, CMP #### [facility] [address] [place] [address] Dr. Angela Aguero Epithelial cells LM Ql (Urine sed) RARE Normal NONE SEEN /RARE [facility] Comment on above: Performed By: #### L IPA NGA, CMP #### [facility] [address] [place] [address] Dr. Angela Aguero FINE GRANULAR CAST RARE Normal [facility] Comment on above: Performed By: #### L IPA, NGA, CMP #### [facility] [address] [address] [address] Angela Aguero HYALINE CAST RARE Normal [facility] Comment on above: Performed By: #### L IPA, NGA, CMP #### [facility] [address] [address] [address] Angela Aguero MUCOUS TRACE Abnormal NONE SEEN [facility] Comment on above: Performed By: #### L IPA, NAG, CMP #### [facility] [address] [address] [address] Angela Aguero RBC NONE SEEN Abnormal 0-2 [facility] Comment on above: Performed By: #### L IPA NGA, CMP #### [facility] [address] [place] [address] Dr. Angela Aguero WBC NONE SEEN Normal NONE SEEN [facility] Comment on above: Performed By: #### L IPA NGA, CMP #### [facility] [address] [place] [address] Dr. Angela Aguero AMYLASEon 11-18-2021 Amylase [Catalytic activity/Vol] 20 U/L Critically low 25-115 [facility] Comment on above: Performed By: #### L IPA NGA, CMP #### [facility] [address] [place] [address] Dr. Angela Aguero BILIRUBIN CONJUGATED (DIRECT )on 11-18-2021 BILI, CONJUGATED 0.4 mg/dL Critically high 0.0-0.2 [facility] Comment on above: Performed By: #### L IPA NGA, CMP #### [facility] [address] [address] [address] Angela Aguero CBC AUTO DIFFon 11-18-2021 BASO # 0.1 103/ul Normal 0.0-0.1 [facility] Comment on above: Performed By: #### L IPA NGA, CMP #### [facility] [address] [address] [address] Angela Aguero Basophils/100 WBC (Bld) 2.4 % Critically high 0.2-2.0 [facility] Comment on above: Performed By: #### L NGA SMITH, CMP #### [facility] [address] [place] [address] Dr. Angela Aguero EO # 0.0 103/ul Normal 0.0-0.7 [facility] Comment on above: Performed By: #### L NGA SMITH, CMP #### [facility] [address] [place] [address] Dr. Angela Aguero Eosinophils/100 WBC (Bld) 0.2 % Critically low 0.9-7.0 [facility] Comment on above: Performed By: #### L NGA SMITH CMP #### [facility] [address] [place] [address] Dr. Angela Aguero Erythrocyte distribution width (RBC) [Ratio] 12.8 % Normal 11.0-15.0 [facility] Comment on above: Performed By: #### L NGA SMITH CMP #### [facility] [address] [place] [address] Dr. Angela Aguero Hematocrit (Bld) [Volume fraction] 47.4 % Normal 36.0-48.0 [facility] Comment on above: Performed By: #### L NGA SMITH CMP #### [facility] [address] [place] [address] Dr. Angela Aguero Hemoglobin (Bld) [Mass/Vol] 16.6 g/dL Critically high 12.0-16.0 [facility] Comment on above: Performed By: #### L NGA SMITH, CMP #### [facility] [address] [place] [address] Dr. Angela Aguero IG # 0.02 10e3/ul Normal 0.00-0.03 [facility] Comment on above: Performed By: #### L NGA SMITH, CMP #### [facility] [address] [place] [address] Dr. Angela Aguero IG % 0.4 % Normal 0.0-0.5 [facility] Comment on above: Performed By: #### L NGA SMITH, CMP #### [facility] [address] [address] [address] Angela Aguero LYMPH # 0.9 103/ul Critically low 1.2-3.8 [facility] Comment on above: Performed By: #### L NGA SMITH, CMP #### [facility] [address] [address] [address] Angela Aguero Lymphocytes/100 WBC (Bld) 17.2 % Critically low 20.5-60.0 [facility] Comment on above: Performed By: #### L NGA SMITH, CMP #### [facility] [address] [address] [address] Angela Aguero MANUAL DIFF REQ NO Normal [facility] Comment on above: Performed By: #### L NGA SMITH, CMP #### [facility] [address] [place] [address] Dr. Angela Aguero MCH (RBC) [Entitic mass] 32.4 pg Normal 26.7-34.0 [facility] Comment on above: Performed By: #### L NGA SMITH, CMP #### [facility] [address] [place] [address] Dr. Angela Aguero MCHC (RBC) [Mass/Vol] 35.0 g/dL Normal 29.9-35.2 [facility] Comment on above: Performed By: #### L NGA SMITH, CMP #### [facility] [address] [place] [address] Dr. Angela Aguero MCV (RBC) [Entitic vol] 92.4 fL Normal 81.0-99.0 [facility] Comment on above: Performed By: #### L NGA SMITH, CMP #### [facility] [address] [place] [address] Dr. Angela Aguero MONO # 0.6 103/ul Normal 0.3-0.8 [facility] Comment on above: Performed By: #### L NGA SMITH, CMP #### [facility] [address] [place] [address] Dr. Angela Aguero Monocytes/100 WBC (Bld) 10.7 % Normal 1.7-12.0 [facility] Comment on above: Performed By: #### L NGA SMITH, CMP #### [facility] [address] [place] [address] Dr. Angela Aguero NEUT # 3.7 103/ul Normal 1.4-6.5 [facility] Comment on above: Performed By: #### L NGA SMITH, CMP #### [facility] [address] [place] [address] Dr. Angela Aguero Neutrophils/100 WBC (Bld) 69.1 % Normal 43.0-75.0 [facility] Comment on above: Performed By: #### L NGA SMITH, CMP #### [facility] [address] [place] [address] Dr. Angela Aguero Platelet mean volume (Bld) [Entitic vol] 10.1 fL Normal 9.5-13.5 [facility] Comment on above: Performed By: #### L NGA SMITH, CMP #### [facility] [address] [place] [address] Dr. Angela Aguero PLT 279 103/ul Normal 150-450 [facility] Comment on above: Performed By: #### L NGA SMITH, CMP #### [facility] [address] [place] [address] Dr. Angela Aguero RBC 5.13 106/ul Normal 4.20-5.40 [facility] Comment on above: Performed By: #### L NGA SMITH, CMP #### [facility] [address] [place] [address] Dr. Angela Aguero WBC 5.4 103/ul Normal 4.0-11.0 [facility] Comment on above: Performed By: #### L NGA SMITH, CMP #### [facility] [address] [place] [address] Dr. Angela Aguero Covid-19 PCR ([facility])on 11-07 SARS-CoV-2 (COVID-19) RNA GOPAL+probe Ql (Unsp spec) Not detected Normal NOT DETECTED [facility] Comment on above: Result Comment: When diagnostic [...] for this test is supported by the [place] of Health and Human Service's declaration that [...] By: #### L NGA SMITH, CMP #### [facility] [address] [place] [address] Dr. Angela Aguero LIPASEon 11-18-2021 Lipase [Catalytic activity/Vol] 25.0 U/L Critically low 73.0-393.0 [facility] Comment on above: Performed By: #### L NGA SMITH, CMP #### [facility] [address] [place] [address] Dr. Angela Aguero PROF 14(COMP METB)on 022 Albumin [Mass/Vol] 4.4 g/dL Normal 3.4-5.0 [facility] Comment on above: Performed By: #### L NGA SMITH, CMP #### [facility] [address] [place] [address] Dr. Angela Aguero Albumin/Globulin [Mass ratio] 1.1 {ratio} Normal [facility] Comment on above: Performed By: #### L NGA SMITH, CMP #### [facility] [address] [place] [address] Dr. Angela Aguero ALP [Catalytic activity/Vol] 83 U/L Normal 46-116 [facility] Comment on above: Performed By: #### L NGA SMITH, CMP #### [facility] [address] [place] [address] Dr. Angela Aguero ALT [Catalytic activity/Vol] 95 U/L Critically high 14-59 [facility] Comment on above: Performed By: #### L NGA SMITH, CMP #### [facility] [address] [place] [address] Dr. Angela Aguero Anion gap [Moles/Vol] 20.2 mmol/L Normal [facility] Comment on above: Performed By: #### L NGA SMITH, CMP #### [facility] [address] [place] [address] Dr. Angela Aguero AST [Catalytic activity/Vol] 84 U/L Critically high 15-37 [facility] Comment on above: Performed By: #### L NGA SMITH, CMP #### [facility] [address] [place] [address] Dr. Angela Aguero Bilirubin [Mass/Vol] 1.1 mg/dL Critically high 0.2-1.0 [facility] Comment on above: Performed By: #### L NGA SMITH, CMP #### [facility] [address] [place] [address] Dr. Angela Aguero Calcium [Mass/Vol] 8.9 mg/dL Normal 8.5-10.1 [facility] Comment on above: Performed By: #### L NGA SMITH, CMP #### [facility] [address] [place] [address] Dr. Angela Aguero Chloride [Moles/Vol] 99 mmol/L Normal 98-107 [facility] Comment on above: Performed By: #### L NGA SMITH, CMP #### [facility] [address] [place] [address] Dr. Angela Aguero CO2 [Moles/Vol] 23.3 mmol/L Normal 21.0-32.0 [facility] Comment on above: Performed By: #### L NGA SMITH, CMP #### [facility] [address] [place] [address] Dr. Angela Aguero Creatinine [Mass/Vol] 0.97 mg/dL Normal 0.55-1.02 [facility] Comment on above: Performed By: #### L NGA SMITH, CMP #### [facility] [address] [address] [address] Angela Aguero EGFR-AF AFGHAN >60 Normal >=60 [facility] Comment on above: Performed By: #### L NGA SMITH, CMP #### [facility] [address] [address] [address] Angela Aguero EGFR-NON AF AFGHAN >60 Normal >=60 [facility] Comment on above: Performed By: #### L NGA SMITH, CMP #### [facility] [address] [address] [address] Angela Aguero Globulin (S) [Mass/Vol] 3.9 g/dL Normal [facility] Comment on above: Performed By: #### L NGA SMITH, CMP #### [facility] [address] [address] [address] Angela Aguero Glucose [Mass/Vol] 170 mg/dL Critically high 74-106 [facility] Comment on above: Performed By: #### L NGA SMITH, CMP #### [facility] [address] [place] [address] Dr. Angela Aguero Potassium [Moles/Vol] 3.5 mmol/L Normal 3.5-5.1 [facility] Comment on above: Performed By: #### L NGA SMITH, CMP #### [facility] [address] [place] [address] Dr. Angela Aguero Protein [Mass/Vol] 8.3 g/dL Critically high 6.4-8.2 [facility] Comment on above: Performed By: #### L NGA SMITH, CMP #### [facility] [address] [place] [address] Dr. Angela Aguero Sodium [Moles/Vol] 139 mmol/L Normal 136-145 [facility] Comment on above: Performed By: #### L NGA SMITH, CMP #### [facility] [address] [place] [address] Dr. Angela Aguero Urea nitrogen [Mass/Vol] 4.0 mg/dL Critically low 7.0-18.0 [facility] Comment on above: Performed By: #### L NGA SMITH, CMP #### [facility] [address] [address] [address] Angela Aguero Urea nitrogen/Creatinine [Mass ratio] 4.1 mg/mg Normal [facility] Comment on above: Performed By: #### L NGA SMITH, CMP #### [facility] [address] [address] [address] ABD/PELV W CONon [...] steatosis. 3. Small hiatal hernia. Normal [facility] ER URINE PROFILEon 2 Bilirubin Ql (U) Negative Normal NEGATIVE [facility] Comment on above: Performed By: #### L NGA SMITH, CMP #### [facility] [address] [address] [address] Angela Aguero Clarity (U) CLEAR Normal CLEAR [facility] Comment on above: Performed By: #### L NGA SMITH, CMP #### [facility] [address] [place] [address] Dr. Angela Aguero Color (U) LT. YELLOW Normal YELLOW [facility] Comment on above: Performed By: #### L IPA NGA, CMP #### [facility] [address] [place] [address] [address] Angela CARRASCO A micrscopic examina tion will be performed if indicated. Normal [facility] Comment on above: Performed By: #### L IPA, NGA, CMP #### [facility] [address] [address] [address] Angela Aguero Glucose Ql (U) Negative Normal NEGATIVE [facility] Comment on above: Performed By: #### L IPA, NGA, CMP #### [facility] [address] [address] [address] Angela Aguero Hemoglobin Ql (U) Negative Normal NEGATIVE [facility] Comment on above: Performed By: #### L IPA NGA, CMP #### [facility] [address] [place] [address] Dr. Angela Aguero Ketones Ql (U) Negative Normal NEGATIVE [facility] Comment on above: Performed By: #### L IPA NGA, CMP #### [facility] [address] [place] [address] Dr. Angela Aguero LEUKOCYTES Negative Normal NEGATIVE [facility] Comment on above: Performed By: #### L IPA NGA, CMP #### [facility] [address] [place] [address] Dr. Angela Aguero Nitrite Ql (U) Negative Normal NEGATIVE [facility] Comment on above: Performed By: #### L IPA NAG, CMP #### [facility] [address] [address] [address] Angela Aguero pH (U) 6.0 [pH] Normal 5-9 [facility] Comment on above: Performed By: #### L IPA NGA, CMP #### [facility] [address] [place] [address] Dr. Angela Aguero SPEC GRAVITY <=1.005 Abnormal 1.005-<=1. 025 [facility] Comment on above: Performed By: #### L IPA NGA, CMP #### [facility] [address] [address] [address] Angela Aguero UA PROTEIN Negative Normal NEGATIVE/ TRACE [facility] Comment on above: Performed By: #### L NGA SMITH, CMP #### [facility] [address] [place] [address] Dr. Angela Aguero UR MICRO IND NOT INDICATED Normal [facility] Comment on above: Performed By: #### L NGA SMITH, CMP #### [facility] [address] [place] [address] Dr. Angela Aguero Urobilinogen Qn (U) 0.2 {Concetta'U}/dL Normal 0.2 - 1. 0 [facility] Comment on above: Performed By: #### L NGA SMITH, CMP #### [facility] [address] [place] [address] Dr. Angela Aguero LACTATE/LACTIC ACIDon 2021 Lactate [Moles/Vol] 1.1 mmol/L Normal 0.4-1.9 [facility] Comment on above: Performed By: #### L NGA SMITH, CMP #### [facility] [address] [place] [address] Dr. Angela Aguero CBC AUTO DIFFon 11-10-2021 BASO # 0.1 103/ul Normal 0.0-0.1 [facility] Comment on above: Performed By: #### L NGA SMITH, CMP #### [facility] [address] [place] [address] Dr. Angela Aguero Basophils/100 WBC (Bld) 1.7 % Normal 0.2-2.0 [facility] Comment on above: Performed By: #### L NGA SMITH, CMP #### [facility] [address] [place] [address] Dr. Angela Aguero EO # 0.1 103/ul Normal 0.0-0.7 [facility] Comment on above: Performed By: #### L LUIS NGA, CMP #### [facility] [address] [place] [address] Dr. Angela Aguero Eosinophils/100 WBC (Bld) 1.0 % Normal 0.9-7.0 [facility] Comment on above: Performed By: #### L NGA SMITH, CMP #### [facility] [address] [place] [address] Dr. Angela Aguero Erythrocyte distribution width (RBC) [Ratio] 13.1 % Normal 11.0-15.0 [facility] Comment on above: Performed By: #### L NGA SMITH, CMP #### [facility] [address] [place] [address] Dr. Angela Aguero Hematocrit (Bld) [Volume fraction] 46.8 % Normal 36.0-48.0 [facility] Comment on above: Performed By: #### L NGA SMITH, CMP #### [facility] [address] [place] [address] Dr. Angela Aguero Hemoglobin (Bld) [Mass/Vol] 16.3 g/dL Critically high 12.0-16.0 [facility] Comment on above: Performed By: #### L NGA SMITH, CMP #### [facility] [address] [place] [address] Dr. Angela Aguero IG # 0.02 10e3/ul Normal 0.00-0.03 [facility] Comment on above: Performed By: #### L NGA SMITH, CMP #### [facility] [address] [place] [address] Dr. Angela Aguero IG % 0.3 % Normal 0.0-0.5 [facility] Comment on above: Performed By: #### L NGA SMITH, CMP #### [facility] [address] [place] [address] Dr. Angela Aguero LYMPH # 1.3 103/ul Normal 1.2-3.8 [facility] Comment on above: Performed By: #### L NGA SMITH, CMP #### [facility] [address] [place] [address] Dr. Angela Aguero Lymphocytes/100 WBC (Bld) 20.9 % Normal 20.5-60.0 [facility] Comment on above: Performed By: #### L NGA SMITH, CMP #### [facility] [address] [place] [address] Dr. Angela Aguero MANUAL DIFF REQ NO Normal [facility] Comment on above: Performed By: #### L NGA SMITH, CMP #### [facility] [address] [place] [address] Dr. Angela Aguero MCH (RBC) [Entitic mass] 32.2 pg Normal 26.7-34.0 [facility] Comment on above: Performed By: #### L NGA SMITH, CMP #### [facility] [address] [place] [address] Dr. Angela Aguero MCHC (RBC) [Mass/Vol] 34.8 g/dL Normal 29.9-35.2 [facility] Comment on above: Performed By: #### L NGA SMITH, CMP #### [facility] [address] [place] [address] Dr. Angela Aguero MCV (RBC) [Entitic vol] 92.5 fL Normal 81.0-99.0 [facility] Comment on above: Performed By: #### L NGA SMITH, CMP #### [facility] [address] [place] [address] Dr. Angela Aguero MONO # 0.6 103/ul Normal 0.3-0.8 [facility] Comment on above: Performed By: #### L NGA SMITH, CMP #### [facility] [address] [place] [address] Dr. Angela Aguero Monocytes/100 WBC (Bld) 10.7 % Normal 1.7-12.0 [facility] Comment on above: Performed By: #### L NGA SMITH, CMP #### [facility] [address] [place] [address] Dr. Angela Aguero NEUT # 3.9 103/ul Normal 1.4-6.5 [facility] Comment on above: Performed By: #### L NGA SMITH, CMP #### [facility] [address] [place] [address] Dr. Angela Aguero Neutrophils/100 WBC (Bld) 65.4 % Normal 43.0-75.0 [facility] Comment on above: Performed By: #### L NGA SMITH, CMP #### [facility] [address] [address] [address] Angela Aguero Platelet mean volume (Bld) [Entitic vol] 9.6 fL Normal 9.5-13.5 [facility] Comment on above: Performed By: #### L NGA SMITH, CMP #### [facility] [address] [address] [address] Angela Aguero PLT 224 103/ul Normal 150-450 [facility] Comment on above: Performed By: #### L NGA SMITH, CMP #### [facility] [address] [address] [address] Angela Aguero RBC 5.06 106/ul Normal 4.20-5.40 [facility] Comment on above: Performed By: #### L NGA SMITH, CMP #### [facility] [address] [place] [address] Dr. Angela Aguero WBC 6.0 103/ul Normal 4.0-11.0 [facility] Comment on above: Performed By: #### L NGA SMITH, CMP #### [facility] [address] [place] [address] Dr. Angela Aguero LACTATE/LACTIC ACIDon 2021 Lactate [Moles/Vol] 3.7 mmol/L Critically high 0.4-1.9 [facility] Comment on above: Performed By: #### L NGA SMITH, CMP #### [facility] [address] [place] [address] Dr. Angela Aguero LIPASEon 11-10-2021 Lipase [Catalytic activity/Vol] 33.0 U/L Critically low 73.0-393.0 [facility] Comment on above: Performed By: #### L NGA SMITH, CMP #### [facility] [address] [place] [address] Dr. Angela Aguero PREG HCG QUALon 11-10-2021 , QUAL Negative Normal NEGATIVE [facility] Comment on above: Performed By: #### P REG #### [facility] [address] [place] [address] Dr. Angela Aguero PROF 14(COMP METB)on 022 Albumin [Mass/Vol] 4.5 g/dL Normal 3.4-5.0 [facility] Comment on above: Performed By: #### L NGA SMITH, CMP #### [facility] [address] [address] [address] Angela Aguero Albumin/Globulin [Mass ratio] 1.1 {ratio} Normal [facility] Comment on above: Performed By: #### L NGA SMITH, CMP #### [facility] [address] [address] [address] Angela Aguero ALP [Catalytic activity/Vol] 112 U/L Normal 46-116 [facility] Comment on above: Performed By: #### L NGA SMITH, CMP #### [facility] [address] [address] [address] Angela Aguero ALT [Catalytic activity/Vol] 154 U/L Critically high 14-59 [facility] Comment on above: Performed By: #### L NGA SMITH, CMP #### [facility] [address] [address] [address] Angela Aguero Anion gap [Moles/Vol] 17.8 mmol/L Normal [facility] Comment on above: Performed By: #### L NGA SMITH, CMP #### [facility] [address] [place] [address] Dr. Angela Aguero AST [Catalytic activity/Vol] 112 U/L Critically high 15-37 [facility] Comment on above: Performed By: #### L NGA SMITH, CMP #### [facility] [address] [address] [address] Angela Aguero Bilirubin [Mass/Vol] 0.7 mg/dL Normal 0.2-1.0 [facility] Comment on above: Performed By: #### L NGA SMITH, CMP #### [facility] [address] [address] [address] Angela Agueor Calcium [Mass/Vol] 9.7 mg/dL Normal 8.5-10.1 [facility] Comment on above: Performed By: #### L NGA SMITH, CMP #### [facility] [address] [address] [address] Angela Aguero Chloride [Moles/Vol] 102 mmol/L Normal 98-107 [facility] Comment on above: Performed By: #### L NGA SMITH, CMP #### [facility] [address] [address] [address] Angela Aguero CO2 [Moles/Vol] 26.6 mmol/L Normal 21.0-32.0 [facility] Comment on above: Performed By: #### L NGA SMITH, CMP #### [facility] [address] [address] [address] Angela Aguero Creatinine [Mass/Vol] 1.00 mg/dL Normal 0.55-1.02 [facility] Comment on above: Performed By: #### L NGA SMITH, CMP #### [facility] [address] [place] [address] Dr. Angela Aguero EGFR-AF AFGHAN >60 Normal >=60 [facility] Comment on above: Performed By: #### L NGA SMITH, CMP #### [facility] [address] [place] [address] Dr. Angela Aguero EGFR-NON AF AFGHAN >60 Normal >=60 [facility] Comment on above: Performed By: #### L NGA SMITH, CMP #### [facility] [address] [place] [address] Dr. Angela Aguero Globulin (S) [Mass/Vol] 4.1 g/dL Normal [facility] Comment on above: Performed By: #### L NGA SMITH, CMP #### [facility] [address] [place] [address] Dr. Angela Aguero Glucose [Mass/Vol] 170 mg/dL Critically high 74-106 [facility] Comment on above: Performed By: #### L NGA SMITH, CMP #### [facility] [address] [place] [address] Dr. Angela Aguero Potassium [Moles/Vol] 3.4 mmol/L Critically low 3.5-5.1 [facility] Comment on above: Performed By: #### L NGA SMITH, CMP #### [facility] [address] [place] [address] Dr. Angela Aguero Protein [Mass/Vol] 8.6 g/dL Critically high 6.4-8.2 [facility] Comment on above: Performed By: #### L NGA SMITH, CMP #### [facility] [address] [place] [address] Dr. Angela Aguero Sodium [Moles/Vol] 143 mmol/L Normal 136-145 [facility] Comment on above: Performed By: #### L NGA SMITH, CMP #### [facility] [address] [place] [address] Dr. Angela Aguero Urea nitrogen [Mass/Vol] 4.0 mg/dL Critically low 7.0-18.0 [facility] Comment on above: Performed By: #### L NGA SMITH, CMP #### [facility] [address] [place] [address] Dr. Angela Aguero Urea nitrogen/Creatinine [Mass ratio] 4.0 mg/mg Normal [facility] Comment on above: Performed By: #### L NGA SMITH, CMP #### [facility] [address] [place] [address] Dr. Angela Aguero PROTIMEon 11-10-2021 INR Coag (PPP) [Relative time] 1.13 {INR} Normal [facility] Comment on above: Performed By: #### L NGA SMITH, CMP #### [facility] [address] [place] [address] Dr. Angela Aguero INR GUIDELINES SEE BELOW Normal [facility] Comment on above: Result Comment: VARSHA RED INR: 2.0 - 3.0 CONDITIONS NOT LISTED BELOW 2.5 - 3.5 FOR PROSTHETIC HEART VALVE REPLACEMENT 2.5 - 3.5 RECURRENT THROMBOSIS Performed By: #### L NGA SMITH, CMP #### [facility] [address] [place] [address] Dr. Angela Aguero PT Coag (PPP) [Time] 12.1 s Critically high 9.0-11.6 [facility] Comment on above: Performed By: #### L NGA SMITH, CMP #### [facility] [address] [place], [place] [address] Dr. Angela Aguero PTTon 11-10-2021 aPTT Coag (Bld) [Time] 30.2 s Normal 22.3-36.2 [facility] Comment on above: Performed By: #### L NGA SMITH, CMP #### [facility] [address] [place], [place] [address] Dr. Angela Aguero Automated epithelial cells c ount in urine sediment (number/area)Ordered By: Hal Orozco on 11-06-2021 Epithelial cells Auto (Urine sed) [#/Area] 10-19 [HPF] 0-2 [facility] Automated erythrocytes count in urine sediment (number/area)Ordered By: Hal Orozco on 11-06-2021 RBC Auto (Urine sed) [#/Area] 0-1 [HPF] 0-4 [facility] Automated leukocytes count i n urine sediment (number/area)Ordered By: Hal Orozco on 11-06-2021 WBC Auto (Urine sed) [#/Area] 1-2 [HPF] 0-4 [facility] Basophils Auto (Bld) [#/Vol] Ordered By: Hal Orozco on 11-06-2021 Basophils (Bld) [#/Vol] 0.0 10*3/uL 0.0-0.2 [facility] Basophils/100 WBC Auto (Bld) Ordered By: Hal Orozco on 11-06-2021 Basophils/100 WBC (Bld) 0.3 % . [facility] Bilirubin Auto test strip Ql (U)Ordered By: Hal Orozco on 11-06-2021 Bilirubin Ql (U) 1+ Negative [facility] Blood hemoglobin measurement (mass/volume)Ordered By: Hal Orozco on 11-06-2021 Hemoglobin (Bld) [Mass/Vol] 15.7 g/dL 11.8-15.4 [facility] Blood leukocytes automated c ount (number/volume)Ordered By: Hal Orozco on 11-06-2021 WBC (Bld) [#/Vol] 9.8 10*3/uL 4.5-11.0 [facility] Body fluid albumin measureme nt (mass/volume)Ordered By: Hal Orozco on 11-06-2021 Albumin (Body fld) [Mass/Vol] 4.7 g/dL 3.2-5.5 [facility] Creatinine and Glomerular fi ltration rate.predicted panel (S/P/Bld)Ordered By: Hal Orozco on 11-06-2021 Creatinine [Mass/Vol] 0.99 mg/dL 0.44-1.03 [facility] Direct bilirubin measurement Ordered By: Hal Orozco on 11-06-2021 Bilirubin.direct [Mass/Vol] 0.3 mg/dL 0.0-0.4 [facility] Eosinophils Auto (Bld) [#/Vo l]Ordered By: Hal Orozco on 11-06-2021 Eosinophils (Bld) [#/Vol] 0.0 10*3/uL 0.0-0.45 [facility] Eosinophils/100 WBC Auto (Bl d)Ordered By: Hal Orozco on 11-06-2021 Eosinophils/100 WBC (Bld) 0.0 % . [facility] Erythrocyte distribution wid th Auto (RBC) [Ratio]Ordered By: Hal Orozco on 11-06-2021 Erythrocyte distribution width (RBC) [Ratio] 14.3 % 11.9-15.3 [facility] Estimated glomerular filtrat ion rate (GFR) non- AmericanOrdered By: Hal Orozco on 11-06-2021 GFR/1.73 sq M.predicted among non-blacks MDRD (S/P/Bld) [Vol rate/Area] > 60 mL/Min [facility] Globulin Calc (S) [Mass/Vol] Ordered By: Hal Orozco on 11-06-2021 Globulin (S) [Mass/Vol] 3.4 g/dL [facility] HCG ( test) IA.rapi d Ql (U)Ordered By: Hal Orozco on 11-06-2021 HCG ( test) Ql (U) Negative [facility] Hematocrit Auto (Bld) [Volum e fraction]Ordered By: Hal Orozco on 11-06-2021 Hematocrit (Bld) [Volume fraction] 45.7 % 34.0-46.4 [facility] Ketones Auto test strip (U) [Mass/Vol]Ordered By: Hal Orozco on 11-06-2021 Ketones (U) [Mass/Vol] 1+ Negative Fi [facility] - Chemistry and C hemistry - challengeOrdered By: Hal Orozco on 11-06-2021 Lipase [Catalytic activity/Vol] 18.0 U/L 22-51 [facility] - Hematology and Cell countsOrdered By: Hal Orozco on 11-06-2021 Nucleated RBC/100 WBC (Bld) [Ratio] 0.1 % 0-0.5 [facility] Lymphocytes Auto (Bld) [#/Vo l]Ordered By: Hal Orozco on 11-06-2021 Lymphocytes (Bld) [#/Vol] 0.4 10*3/uL 1.00-4.8 [facility] Lymphocytes/100 WBC Auto (Bl d)Ordered By: Hal Orozco on 11-06-2021 Lymphocytes/100 WBC (Bld) 3.8 % . [facility] MCH Auto (RBC) [Entitic mass ]Ordered By: Hal Orozco on 11-06-2021 MCH (RBC) [Entitic mass] 32.4 pg 24.7-34.3 [facility] MCHC Auto (RBC) [Mass/Vol]Or dered By: Hal Orozco on 11-06-2021 MCHC (RBC) [Mass/Vol] 34.4 g/dL 32.0-35.0 [facility] MCV Auto (RBC) [Entitic vol] Ordered By: Hal Orozco on 11-06-2021 MCV (RBC) [Entitic vol] 94.2 fL 80-100 [facility] Monocytes Auto (Bld) [#/Vol] Ordered By: Hal Orozco on 11-06-2021 Monocytes (Bld) [#/Vol] 0.3 10*3/uL 0.0-0.8 [facility] Monocytes/100 WBC Auto (Bld) Ordered By: Hal Orozco on 11-06-2021 Monocytes/100 WBC (Bld) 2.9 % . [facility] Mucus LM Ql (Urine sed)Order ed By: Hal Orozco on 11-06-2021 Mucus Ql (Urine sed) 2+ [LPF] [facility] Neutrophils Auto (Bld) [#/Vo l]Ordered By: Hal Orozco on 11-06-2021 Neutrophils (Bld) [#/Vol] 9.1 10*3/uL 1.8-7.7 [facility] Neutrophils/100 WBC Auto (Bl d)Ordered By: Hal Orozco on 11-06-2021 Neutrophils/100 WBC (Bld) 93.0 % . [facility] No Panel InformationOrdered By: Hal Orozco on 11-06-2021 Estimated GFR () > 60 mL/Min [facility] Comment on above: GFR estimated refere nce range: According to KDOQI guidelines, <60 ml/min/1.73m2 is sufficient to diagnose a patient with chronic kidney disease. Pharmacy Creatinine Clearance (Chem 72.84 [facility] Platelet mean volume Auto (B ld) [Entitic vol]Ordered By: Hal Orozco on 11-06-2021 Platelet mean volume (Bld) [Entitic vol] 7.5 fL 6.3-10.7 [facility] Platelets Auto (Bld) [#/Vol] Ordered By: Hal Orozco on 11-06-2021 Platelets (Bld) [#/Vol] 270 10*3/uL 150-450 [facility] Protein Auto test strip (U) [Mass/Vol]Ordered By: Hal Orozco on 11-06-2021 Protein (U) [Mass/Vol] 30 mg/dL Negative [facility] Protein [Mass/volume] in Ser um or PlasmaOrdered By: Hal Orozco on 11-06-2021 Protein [Mass/Vol] 8.1 g/dL 6.1-7.9 [facility] RBC Auto (Bld) [#/Vol]Ordere d By: Hal Orozco on 11-06-2021 RBC (Bld) [#/Vol] 4.85 10*6/uL 3.60-5.00 [facility] Serum or plasma alanine montes otransferase measurement without P-5'-P (enzymatic activiOrdered By: Hal Orozco on 11-06-2021 ALT No additional P-5'-P [Catalytic activity/Vol] 64 U/L 10-60 [facility] Serum or plasma albumin/glob ulin mass ratioOrdered By: Hal Orozco on 11-06-2021 Albumin/Globulin [Mass ratio] 1.4 {ratio} [facility] Serum or plasma alkaline florencio sphatase measurement (enzymatic activity/volume)Ordered By: Hal Orozco on 11-06-2021 ALP [Catalytic activity/Vol] 75 U/L 32-92 [facility] Serum or plasma aspartate am inotransferase measurement (enzymatic activity/volume)Ordered By: Hal Orozco on 11-06-2021 AST [Catalytic activity/Vol] 101 U/L 10-42 [facility] Serum or plasma calcium archie urement (mass/volume)Ordered By: Hal Orozco on 11-06-2021 Calcium [Mass/Vol] 9.3 mg/dL 8.2-10.2 [facility] Serum or plasma chloride luz surement (moles/volume)Ordered By: Hal Orozco on 11-06-2021 Chloride [Moles/Vol] 101 mmol/L 95-114 [facility] Serum or plasma glucose archie urement (mass/volume)Ordered By: Hal Orozco on 11-06-2021 Glucose [Mass/Vol] 205 mg/dL 70-100 [facility] Comment on above: ADA recommended refe [...] Orozco on 11-06-2021 Bilirubin.indirect [Mass/Vol] 1.0 mg/dL [facility] Serum or plasma potassium me asurement (moles/volume)Ordered By: Hal Orozco on 11-06-2021 Potassium [Moles/Vol] 3.8 mmol/L 3.5-5.1 [facility] Serum or plasma sodium measu rement (moles/volume)Ordered By: Hal Orozco on 11-06-2021 Sodium [Moles/Vol] 142 mmol/L 136-146 [facility] Serum or plasma total biliru bin measurement (mass/volume)Ordered By: Hal Orozco on 11-06-2021 Bilirubin [Mass/Vol] 1.3 mg/dL 0.3-1.2 [facility] Comment on above: Samples from patient s who have taken Naproxen have shown spurious elevation in Total Bilirubin levels. A metabolite of Naproxen, O-desmethylnaproxen, has been shown to interfere with the Renetta method for measuring Total Bilirubin. Serum or plasma total carbon dioxide measurement (moles/volume)Ordered By: Hal Orozco on 11-06-2021 CO2 [Moles/Vol] 21.6 mmol/L 22.0-30.0 [facility] Serum or plasma urea nitroge n measurement (mass/volume)Ordered By: Hal Orozco on 11-06-2021 Urea nitrogen [Mass/Vol] 4 mg/dL 9-23 [facility] Urine appearanceOrdered By: Hal Orozco on 11-06-2021 Appearance (U) Clear Clear [facility] Urine bacteria detection by automated methodOrdered By: Hal Orozco on 11-06-2021 Bacteria Auto Ql (U) 1+ None Seen [facility] Urine colorOrdered By: Jimbo Orozco on 11-06-2021 Color (U) Yellow Yellow [facility] Urine glucose measurement by automated test strip (mass/volume)Ordered By: Hal Orozco on 11-06-2021 Glucose Auto test strip (U) [Mass/Vol] Normal mg/dL Normal [facility] Urine hemoglobin detection b y automated test stripOrdered By: Hal Orozco on 11-06-2021 Hemoglobin Auto test strip Ql (U) Negative Negative [facility] Urine leukocyte esterase det ection by automated test stripOrdered By: Hal Orozco on 11-06-2021 Leukocyte esterase Auto test strip Ql (U) Negative Negative [facility] Urine nitrite detection by a utomated test stripOrdered By: Hal Orozco on 11-06-2021 Nitrite Auto test strip Ql (U) Negative Negative [facility] Urobilinogen Auto test strip (U) [Mass/Vol]Ordered By: Hal Orozco on 11-06-2021 Urobilinogen (U) [Mass/Vol] mg/dL Normal [facility] pH Auto test strip (U)Ordere d By: Hal Orozco on 11-06-2021 pH (U) 1.025 [pH] 1.001-1.03 0 [facility] pH (U) 6.5 [pH] 5.0-9.0 [facility] Vital Signs Date Time Vital Sign Value Performing Clinician Facility 01-22-2024 08:00-0400 Body temperature 98.1 [degF] CATIA Blanca Work Phone: [facility] 01-22-2024 08:00-0400 Diastolic blood pressure 78 mm[Hg] CATIA Blanca Work Phone: [facility] 01-22-2024 08:00-0400 Heart rate 116 /min CATIA Blanca Work Phone: [facility] 01-22-2024 08:00-0400 Respiratory rate 18 /min CATIA Blanca Work Phone: [facility] 01-22-2024 08:00-0400 SaO2% (BldA) [Mass fraction] 99 % CATIA Blanca Work Phone: [facility] 01-22-2024 08:00-0400 Systolic blood pressure 109 mm[Hg] CATIA Blanca Work Phone: [facility] 01-21-2024 10:58-0400 Body weight 62.09 kg CATIA Blanca Work Phone: [facility] 01-18-2024 15:54-0400 Body height 170.18 cm CATIA Blanca Work Phone: [facility] 01-15-2024 10:17-0400 Diastolic blood pressure 108 mm[Hg] CATIA Blanca Work Phone: [facility] 01-15-2024 10:17-0400 Heart rate 73 /min BOX WORKERTodd Blanca Work Phone: [facility] 01-15-2024 10:17-0400 Respiratory rate 18 /min BOX WORKERTodd Blanca Work Phone: [facility] 01-15-2024 10:17-0400 SaO2% (BldA) [Mass fraction] 95 % BOX WORKERTodd Blanca Work Phone: [facility] 01-15-2024 10:17-0400 Systolic blood pressure 148 mm[Hg] CATIA Blanca Work Phone: [facility] 01-15-2024 08:59-0400 Body temperature 98.6 [degF] CATIA Blanca Work Phone: [facility] 06-14-2023 14:27-0500 Body height 167.64 cm CATIA Blanca Work Phone: [facility] 06-14-2023 14:27-0500 Body mass index (BMI) [Ratio] 22 kg/m2 BOX WORKERTodd Blanca Work Phone: [facility] 06-14-2023 14:27-0500 Body weight 61.91 kg CATIA Blanca Work Phone: [facility] 06-14-2023 14:27-0500 Diastolic blood pressure 85 mm[Hg] CATIA Blanca Work Phone: [facility] 06-14-2023 14:27-0500 Heart rate 94 /min CATIA Blanca Work Phone: [facility] 06-14-2023 14:27-0500 Respiratory rate 18 /min CATIA Blanca Work Phone: [facility] 06-14-2023 14:27-0500 SaO2% (BldA) [Mass fraction] 100 % BOX WORKERTodd Blanca Work Phone: [facility] 06-14-2023 14:27-0500 Systolic blood pressure 132 mm[Hg] BOX WORKER Avery Blanca Work Phone: [facility] 03-27-2023 10:45-0500 Body height 167.64 cm Becky Scally Other [facility] 03-27-2023 10:45-0500 Body mass index (BMI) [Ratio] 21.93 kg/m2 Becky Scally Other [employer] Other 03-27-2023 10:45-0500 Body weight 61.64 kg Becky Scally Other [facility] 03-27-2023 10:45-0500 Diastolic blood pressure 80 mm[Hg] Becky Scally Other [facility] 03-27-2023 10:45-0500 Respiratory rate 16 /min Becky Scally Other [employer] Other 03-27-2023 10:45-0500 SaO2% (BldA) [Mass fraction] 100 % Becky Scally Other [employer] Other 03-27-2023 10:45-0500 Systolic blood pressure 125 mm[Hg] Becky Scally Other [facility] 02-01-2022 23:07-0400 Diastolic blood pressure 103 mm[Hg] Kaylinn Dokken [facility] 02-01-2022 23:07-0400 Heart rate 67 /min Kaylinn Dokken [facility] 02-01-2022 23:07-0400 Respiratory rate 15 /min Kaylinn Dokken [facility] 02-01-2022 23:07-0400 SaO2% (BldA) [Mass fraction] 97 % Zaireylinn Dokken [facility] 02-01-2022 23:07-0400 Systolic blood pressure 164 mm[Hg] Kaylinn Dokken [facility] 02-01-2022 21:27-0400 Body temperature 98.24 [degF] Zaireylinn Dokken [facility] 02-01-2022 21:27-0400 Diastolic blood pressure 120 mm[Hg] Zaireylinn Dokken [facility] 02-01-2022 21:27-0400 Heart rate 111 /min Zaireylinn Dokken [facility] 02-01-2022 21:27-0400 Respiratory rate 20 /min Zaireylinn Dokken [facility] 02-01-2022 21:27-0400 SaO2% (BldA) [Mass fraction] 98 % Charaninn Dokken [facility] 02-01-2022 21:27-0400 Systolic blood pressure 196 mm[Hg] Charaninn Dokken [facility] 12-28-2021 08:56-0400 Body height 167.64 cm Services [employer] Work Phone: [facility] 12-28-2021 08:56-0400 Body weight 71.66 kg Services [employer] Work Phone: [facility] 12-23-2021 09:40-0400 Diastolic blood pressure 87 mm[Hg] Services [employer] Work Phone: [facility] 12-23-2021 09:40-0400 Heart rate 88 /min Services [facility] [address] Work Phone: [facility] 12-23-2021 09:40-0400 Respiratory rate 18 /min Services [facility] Work Phone: [facility] 12-23-2021 09:40-0400 SaO2% (BldA) [Mass fraction] 100 % Services [facility] Work Phone: [facility] 12-23-2021 09:40-0400 Systolic blood pressure 140 mm[Hg] Services [facility] Work Phone: [facility] 12-23-2021 07:44-0400 Body height 167.64 cm Services [facility] Work Phone: [facility] 12-23-2021 07:44-0400 Body weight 68.03 kg Services [facility] Work Phone: [facility] 11-06-2021 14:00-0400 Diastolic blood pressure 82 mm[Hg] Services [facility] Work Phone: [facility] 11-06-2021 14:00-0400 Heart rate 102 /min [facility] Work Phone: [facility] 11-06-2021 14:00-0400 Respiratory rate 20 /min Services [facility] Work Phone: [facility] 11-06-2021 14:00-0400 SaO2% (BldA) [Mass fraction] 97 % [facility] Work Phone: [facility] 11-06-2021 14:00-0400 Systolic blood pressure 123 mm[Hg] [facility] Work Phone: [facility] 11-06-2021 00:00-0400 Body height 167.64 cm Services [facility] Work Phone: [facility] 11-06-2021 00:00-0400 Body weight 70.3 kg Services [facility] Work Phone: [facility] 11-05-2021 23:51-0400 Body temperature 98 [degF] Services [facility] Work Phone: [facility] Encounters Encounter Date Encounter Type Care Provider Facility Start: 01-16-2024 Non-patient / Non-visit BOX WORKER Reji jimenez Evangelist Work Phone: [facility] Work Phone: Start: 01-15-2024 End: 01-22-2024 Evaluation and management of inpatient BOX WORKERTodd Baldwin Evangelist Work Phone: [facility] [place] [address] Work Phone: Start: 11-27-2023 End: 11-30-2023 Clinisync Result Encounter Shaikh Jonatan OROURKE Work Phone: [facility] Unsolicited Start: 11-27-2023 End: 11-30-2023 Clinisync Result Encounter Shaikh Jonatan OROURKE Work Phone: [facility] Unsolicited Start: 11-26-2023 End: 12-01-2023 Non-patient / Non-visit BOX WORKERTodd Blanca Work Phone: [facility] Work Phone: Start: 11-22-2023 Non-patient / Non-visit BOX WORKER Reji jimenez Evangelist Work Phone: [facility] ER Work Phone: Start: 11-22-2023 ambulatory Avery Blanca Facili ty:[facility] Start: 11-22-2023 Registered Recurring BOX WORKER Ez reji Evangelist Work Phone: [facility] Start: 08-14-2023 End: 08-14-2023 ambulatory Avery Babb Blanca [facility] Work Phone: Start: 08-14-2023 End: 08-14-2023 Departed Referred CATIA Blanca Work Phone: [facility] Start: 06-14-2023 End: 06-14-2023 Patient encounter procedure BOX WORKERTodd Blanca Work Phone: [facility] Work Phone: Start: 03-27-2023 FQHC visit new patient Becky beck [facility] Start: 03-27-2023 End: 03-27-2023 Discharged Recurring CATIA Blanca Work Phone: [facility] Work Phone: Start: 03-27-2023 End: 03-27-2023 ambulatory CATIA Blanca Work Phone: [facility] [employer] Other Start: 03-27-2023 End: 03-27-2023 Patient encounter procedure CATIA Blanca Work Phone: [facility] Work Phone: Start: 01-19-2023 ambulatory Aung Saldaña [facility] ty:[facility] Start: 10-21-2022 End: 10-21-2022 Emergency department patient visit Thanh Bal Facility:[facility] Start: 03-26-2022 End: 03-26-[address] DEON MCGUIRE Facility: Start: 02-01-2022 End: 02-02-2022 Emergency department patient visit DO Judith Mock Facility:[facility] Start: 02-01-2022 End: 02-02-2022 Emergency department patient visit Judith Mock [facility] Start: 01-31-2022 End: 05-02-2022 ambulatory Varinder Ang Facility:[facility] Start: 01-18-2022 End: 01-18-2022 ambulatory Services [facility] Work Phone: [facility] Work Phone: Start: 01-18-2022 End: 01-18-2022 Patient encounter procedure Services [facility] Work Phone: [facility] [place] Start: 12-28-2021 End: 12-28-[address] [facility] Work Phone: [facility] [place] Start: 12-23-2021 End: 12-23-2021 Patient encounter procedure Services [employer] Phone: [facility] [place] Start: 11-25-2021 End: 11-25-2021 Departed Referred Services [employer] Phone: [facility] Start: 11-18-2021 End: 11-20-[address] DOCTOR SALGADO Facility:[facility] Start: 11-10-2021 End: 11-11-2021 ambulatory MAGGY WORLEY Facility:[facility] Start: 11-05-2021 End: 11-06-2021 Emergency department patient visit Services [employer] Phone: [facility]-Emergency Room Procedures Date Procedure Procedure Detail Performing Clinician Start: 11-27-2023 Bacteria identified in Urine by Culture Shaikh Jonatan OROURKE Work Phone: Start: 12-28-2021 MRI of thoracic spin e with contrast Services [employer] Phone: Start: 12-28-2021 XR pre/post mri xray Se [employer] Phone: Start: 12-28-2021 MRI of lumbar spine with contrast Services [employer] Phone: Start: 12-23-2021 MRI of head Services F [facility] [address] Work Phone: Aerobic microbial culture [facility] [employer] Phone: Anaerobic microbial culture Services [employer] Phone: Investigation of transfusion reaction Services [employer] Phone: Plan of Treatment Date Care Activity Detail Author Start: 01-22-2024 [facility] Start: 01-18-2024 Referral to clinical log chain feeder [facility] Start: 01-15-2024 Referral to Staff Appraiser [facility] Start: 01-15-2024 Hospital admission [facility] Start: 01-18-2022 FILM DEVELOPING MACHINE OPERATOR antibody measurement [facility] Start: 01-18-2022 [facility] Start: 12-23-2021 [facility] Start: 12-23-2021 Cerebrospinal fluid culture [facility] Work Phone: Start: 12-23-2021 [facility] Start: 12-23-2021 Lumbar puncture usin g fluoroscopic guidance [facility] Work Phone: Start: 11-25-2021 End: 11-25-2021 Departed Referred Departed Referred [facility] Albumin [Mass/volume ] in Cerebral spinal fluid [facility] Work Phone: Albumin [Mass/volume ] in Serum or Plasma [facility] Work Phone: Albumin/Globulin ratio [facility] Work Phone: Bacteria identified in Unspecified specimen by Aerobe culture [facility] Work Phone: Bacteria identified in Unspecified specimen by Anaerobe culture [facility] Work Phone: Cell count, cerebros alexus fluid [facility] Work Phone: Centromere protein B Ab [Units/volume] in Serum [facility] Work Phone: Cerebrospinal fluid examination [facility] Work Phone: Cerebrospinal fluid IgG ratio and IgG index [facility] Work Phone: Chromatin Ab [Units/ volume] in Serum or Plasma [facility] Work Phone: Comprehensive metabo lic 2000 panel - Serum or Plasma [facility] DNA double strand Ab [Units/volume] in Serum [facility] Work Phone: Electrophoresis: [id number] [facility] Work Phone: Electrophoresis: [id number] [facility] Work Phone: Electrophoresis: beta-globulin [facility] Work Phone: Electrophoresis: toby ma globulin [facility] Work Phone: Evaluation of cerebr ospinal fluid [facility] Work Phone: Fluid sample volume measurement [facility] Work Phone: Globulin [Mass/volum e] in Serum [facility] Work Phone: Glucose [Mass/volume ] in Cerebral spinal fluid [facility] Work Phone: Glutamate decarboxyl ase 65 Ab [Units/volume] in Serum [facility] IgG [Mass/volume] in Cerebral spinal fluid [facility] Work Phone: IgG [Mass/volume] in Serum or Plasma [facility] Work Phone: IgG clearance/Albumi n clearance [Ratio] in Serum and CSF [facility] Work Phone: IgG synthesis rate [Mass/time] in Serum and CSF by calculation [facility] Work Phone: Insulin Ab [Units/vo lume] in Serum [facility] Insulin C-peptide measurement [facility] Rika-1 extractable nuc lear Ab [Units/volume] in Serum [facility] Work Phone: Meningitis+Encephali tis pathogens DNA and RNA panel - Cerebral spinal fluid by GOPAL with non-probe detection [facility] Work Phone: Methylmalonate [Moles/volume] in Serum or Plasma [facility] Work Phone: Microscopic observat ion [Identifier] in Unspecified specimen by Gram stain [facility] Nucleated cells [#/v olume] in Cerebral spinal fluid by Manual count [facility] Work Phone: Patient Education [facility] Work Phone: Patient referral [facility] Work Phone: Protein [Mass/volume ] in Cerebral spinal fluid [facility] Work Phone: Protein [Mass/volume ] in Serum or Plasma [facility] Work Phone: Protein fractions.oligoclonal bands.intrathecal [Presence] in Serum and CSF [facility] Work Phone: Red blood cell count [facility] Work Phone: FILM DEVELOPING MACHINE OPERATOR antibody measurement [facility] Work Phone: SCL-70 extractable n uclear Ab [Units/volume] in Serum by Immunoassay [facility] Work Phone: Sjogrens syndrome-A extractable nuclear Ab [Units/volume] in Serum [facility] Work Phone: Sjogrens syndrome-B extractable nuclear Ab [Units/volume] in Serum [facility] Work Phone: Mcguire extractable nu clear Ab [Units/volume] in Serum [facility] Work Phone: Thiamine [Moles/volu me] in Blood [facility] Immunizations Immunization Date Immunization Notes Care Provider Fa [facility] 01-31-2022 influenza virus vaccine, unspecified formulation Judith Piersonmandeepedwige [facility] Comment on above: Reason for Medicatio n: Prophylaxis Payers Date Payer Category Payer Self-pay [id number] 2021 Unknown 1985 Unknown [id number] 2.16.84 [id number] 1984 Unknown [id number] 2.16.84 [id number] 1984 Unknown [id number] 2.16.84 [id number] 1984 Unknown [id number] 2.16.8 [id number] 1984 Unknown [id number] 2.16.8 [id number] 1984 Unknown [id number] 2.16.8 [id number] 1984 Unknown [id number] 2.16.8 [id number] 1959 Unknown [id number] Medicaid [id number] Unknown [id number] 2.16.8 [id number] Unknown [id number] 2.16.8 [id number] Unknown [id number] 2.16.8 [id number] Unknown [id number] 2.16.8 [id number] Social History Date Type Detail Facility Start: 11-06-2021 End: 03-27-2023 Tobacco smoking status IDIS Ex-smoker (finding) [facility] Start: 1985 Sex Assigned At Female F [facility] Tobacco smoking status No Smoking Status Entered [facility] Sex Assigned At Female [facility] Start: 06-14-2023 End: 01-18-2024 Tobacco smoking status IDIS Smoker (finding) [facility] Tobacco smoking status [facility] Tobacco smoking consumption unknown [facility] Start: 1985 Sex assigned at Not on file [facility] Healthcare Goals Date Patient Goal Desired Activity /State Functional Status Date Assessment Result Facility 01-22-2024 Functional status Patient at Baseline [facility] Work Phone: 02-01-2022 Functional Status N/A [facility] Mental Status Date Assessment Result Facility 01-22-2024 Cognitive function Cognitive Sta tus Patient at Baseline [facility] Work Phone: Clinical Notes 02-01-2022 to 01-22-2024 Note Date & Type Note Facility 01-22-2024 Discharge summary Note Date/Time January 22, 2024 11:00am [facility] [address] [place] [address] Discharge Summary Signed Patient: Shikha Loera MR#: [id number] : 1985 Acct:[id number] Age/Sex: 38 / F Adm Date: 4 Loc: Room: [address] [place] [address]: Jack Kwon MD Copies to: MD Devonte Wu MD [facility]~ Providers Date of Discharge: 01/22/24 Discharging Provider: Devonte Valdovinos Primary Care Provider: Services [facility] Consults: 01/15/24 11:22 Consult to Case Management Routine Comment: CM Reason for Consult: Staff Appraiser-General 01/18/24 04:46 Consult to Adult Hospitalist Routine [...] depression, alcohol use disorder Past hospitalizations: Previous [address] [place] [address] hospitalization 10-15 years ago for suicide attempt [...] Instructions: Important Contact Information You can call [facility] Inpatient [facility]al Health at [phone] any time day or night if you have emergent questions or question regarding discharge instructions. If at any time you are feeling an increase inyour psychiatric symptoms, call your physician or behavioral healthcare provider. If any time you have thoughts of harming yourself or others contact one of the following: Call 9-8-8 (available 30/10) Crisis Text Line (available 30/10) text 4HOPE to 287820 [facility] Hope Line (available 8 a.m. Midnight) call [phone] ([phone]) Regular Diet No Activity Restrictions Instructions: Depression, Adult (DC), Alcohol Use Disorder (DC), [facility] Behavioral Health DC Instructions, Know your Meds [...] tablet 5 mg PO DAILY Follow Up: [facility] [Outside] - 01/23/24 (A case technician will call you tomorrow 01/22 between 8-5 to discuss appointments and follow-up care. Financial and diagnostic assessment on 01/22 at 1:30pm Nursing intake on 02/05 at 10am Appointment with Dr. Valdovinos on 02/11 at 10:15am[facility] (see with any medical needs) [...] <Electronically signed by Devonte Valdovinos MD> 01/22/24 1457 [facility] Work Phone: 1(240) 184-833210-14-2024 Progress note Author Devonte Valdovinos [facility] January 21, 2024 2:21pm Note Date/Time January 21, 2024 1 2:12pm [facility] [address] [place] [address] Psychiatry Progress Note Signed Patient: Shikha Loera MR#: [id number] : 1985 Acct:[id number] Age/Sex: 38 / F Adm Date: 4 Loc: Room: [address] [place] [address] Type : ADM IN Attending Dr: Jack [...] by Devonte Valdovinos MD> 01/21/24 1421 [facility] Work Phone: 1(884) 728-225110-13-2024 Progress note Author Jack wright [facility] January 20, 2024 5:40pm Note Date/Time January 20, 2024 1 1:39am [facility] [address] [place] [address] Psychiatry Progress Note Signed Patient: Shikha Loera MR#: [id number] : 1985 Acct:[id number] Age/Sex: 38 / F Adm Date: 4 Loc: 1S Room: [address] [place] [address] Type : ADM IN Attending Dr: Jack [...] to get ahold of her. Ena Rooney [phone] Mother stated she just talked to Shikha [...] <Electronically signed by Jack Kwon MD> 01/20/24 2563 [facility] Work Phone: 1(912) 262-422410-13-2024 Progress note Author Helen Bailon [facility] January 20, 2024 4:29pm Note Date/Time January 20, 2024 4 :29pm [facility] [address] [place] [address] Hospitalist Progress Note Signed Patient: Shikha Loera MR#: [id number] : 1985 Acct:[id number] Age/Sex: 38 / F Adm Date: 4 Loc: Room: [address] [place] [address] Type: ADM IN Attending Dr: Jack Kwon [...] <Electronically signed by CATIA Bailon> 01/20/241628 [facility] Work Phone: 1(541) 919-957810-12-2024 Progress note Author Helen Bailon [facility] January 19, 2024 4:50pm Note Date/Time January 19, 2024 4 :50pm [facility] [address] [place] [address] Hospitalist Progress Note Signed Patient: Shikha Loera MR#: [id number] : 1985 Acct:[id number] Age/Sex: 38 / F Adm Date: 4 Loc: Room: [address] [place] [address] Type: ADM IN Attending Dr: Jack Kwon [...] Documented By: Helen Bailon APRN 01/07 06/02 0232 Signed By: <Electronically signed by CATIA Sandsy> 01/19/24 1650 [facility] Work Phone: 1(684) 487-653910-12-2024 Progress note Author Jack wright [facility] January 19, 2024 8:01am Note Date/Time January 19, 2024 7 :59am [facility] [address] [place] [address] Psychiatry Progress Note Signed Patient: Shikha Loera MR#: [id number] : 1985 Acct:[id number] Age/Sex: 38 / F Adm Date: 4 Loc: Room: [address] [place] [address] Type : ADM IN Attending Dr: Jack [...] by Jack Kwon MD> 01/19/24 0801 [facility] Work Phone: 1(868) 155-512510-11-2024 Consult note Author Hari Nixon [facility] January 18, 2024 7:40pm Note Date/Time January 18, 2024 1 1:50am [facility] [address] [place] [address] Hospitalist Consult Note Signed Patient: Shikha Loera MR#: [id number] : 1985 Acct:[id number] Age/Sex: 38 / F Adm Date: 4 Loc: Room: [address] [place] [address] Type: ADM IN Attending Dr: Jack Kwon MD Copies to: Jack Kwon MD [facility] CATIA Dennis, DO~ HPI DATE [...] negative unless noted below or in HPI [facility] Medical History (Updated 01/18/24 @ 14:15 by [...] by Hari Nixon DO> 01/18/24 194 [facility] Work Phone: 1(547) 433-865610-11-2024 Progress note Author Jack wright [facility] January 18, 2024 2:15pm Note Date/Time January 18, 2024 9 :31am [facility] [address] [place] [address] Psychiatry Progress Note Signed Patient: Shikha Loera MR#: [id number] : 1985 Acct:[id number] Age/Sex: 38 / F Adm Date: 4 Loc: Room: [address] [place] [address] Type : ADM IN Attending Dr: Jack [...] makes no sense that 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 She has [...] <Electronically signed by Jack Kwon MD> 01/18/24 7795 [facility] Work Phone: 1(241) 679-882110-10-2024 Progress note Author Jack wright [facility] January 17, 2024 6:35am Note Date/Time January 17, 2024 6 :35am [facility] [address] [place] [address] Psychiatry Progress Note Signed Patient: Shikha Loera MR#: [id number] : 1985 Acct:[id number] Age/Sex: 38 / F Adm Date: 4 Loc: 1S Room: [address] [place] [address] Type : ADM IN Attending Dr: Jack [...] discharge. Documented By: Jack Kwon MD [id number] Signed By: <Electronically signed by Jack Kwon MD> 01/17/24 0635 [facility] Work Phone: 1(633) 459-838410-09-2024 History and physical note Author [facility]right [facility] System January 16, 2024 6:36am Note Date/Time January 15, 2024 11 :43am [facility] [address] [place] [address] Psychiatry H&P Signed Patient: Shikha Loera MR#: [id number] : 1985 Acct:[id number] Age/Sex: 38 / F Adm Date: Loc: Room: [address] [place] [address] Type: ADM IN Attending Dr: Jack Kwon MD Copies to: Jack Kwon MD [facility]~ Date of Service: 01/16/2024 HPI [...] her best friend. Patient was here at [address] [place] [address] during this time because she attempted suicide [...] depression, alcohol use disorder Past hospitalizations: Previous [address] [place] [address] hospitalization 10-15 years ago for suicide attempt [...] internalstimuli. Insight: limited , emerging Judgment: limited [facility] Medical History (Updated 01/16/24 @ 06:36 by [...] Cloudy A Urine pH 5.5 Ur Specific [place] 1.005 Urine Protein 20 H Urine Glucose [...] by Jack Kwon MD> 01/16/24 0636 [facility] Work Phone: 1(566) 428-379712-19-2023 Evaluation note* Encounter Date Diagnosis Assessment Notes [...] issues. 6. Prescriptions: New patient 03-27-2023 uses [facility]. Mar, Vitamin D deficiency (ICD-10 - E55.9) Mar, Hyperlipidemia, unspecified hyperlipidemia type (ICD-10 - E78.5) Mar, Hypertension, unspecified type (ICD-10 - I10) Mar, Dietary counseling and surveillance (ICD-10 - Z71.3) Mar, BMI 21.0-21.9, adult (ICD-10 - Z68.21) Mar, History of gestational diabetes (ICD-10 - Z86.32) [facility] Other 10-27-2022 Hospital Discharge instructions Patient Education 02/02/2022 00:18:28 Pyelonephritis, Adult, [place] Pyelonephritis, Adult Pyelonephritis is an infection that [...] even if youstart to feel better. Take coyu-mou-cybpvuf and prescription medicines only as told by [...] 05/03/2005 Document Revised: 01/28/2019 Document Reviewed: 01/28/2019 [employer] Patient Education 2020 [employer]. Follow Up Care 02/01/2022 21:25:38 With:AVERY BLANCA Address: [address] [place] [address] [address] [place] [address]- [phone] Business (1) When:02/05/2022 Comments:You can use the pain medication every 6 hours as needed for pain, take the Bactrim twice daily until you have completed the course. Please follow-up with your primary care doctor the next 2 to 3 days. Please return to the ED for any new or worsening symptoms. [facility]10-26-20[facility] Evaluation + Plan noteExtracted from: Title:ED [...] With Cult Reflex Urine Culture US [facility]bladder [facility] Narrative* Chief Complaint Referral Echd Detox DM [facility] Work Phone: Evaluation noteNo assessment information available [facility] Work Phone: Evaluation note* Diagnosis Onset Date Resolution Status Alcohol use disorder acute BMI 21.0-21.9, adult acute Controlled diabetes mellitus with hyperglycemia acute Dietary counseling and surveillance acute Hyperlipidemia acute Vitamin D deficiency acute [facility] Work Phone: Evaluation note* Diagnosis Onset Date Resolution Status Alcohol intoxication acute Suicidal ideations acute [facility] Work Phone: Evaluation note* Diagnosis Onset Date Resolution Status Alcohol intoxication acute Alcohol use disorder acute Alcohol withdrawal acute Bipolar depression acute HTN (hypertension) acute Hyperlipidemia acute Hypokalemia acute Hypomagnesemia acute Hypothyroid acute Suicidal ideations acute Vitamin D deficiency acute [facility] Work Phone: History general Narrative - Reported* Type Description Date Medical History Hx of abnormal pap Medical History Hx of pancreatitis Medical History type II diabetes Medical History bipolar Surgical History hemangioma removed from lip at age 4 Hospitalization History See Above Hospitalization History pancreatitis [facility] Other Hospital course Narrative No data available for this section [facility] No data available for this section [facility] Chief Complaint and Reason for Visit [...] Member Role Status Dates Avery Blanca APRN MARGIN CLERK-C Attending Provider Active Team Status: Inactive Member Role Status Dates Services [facility] Primary Care Provider Active Hal Orozco DO Emergency Provider Active Team Status: Inactive Member Role Status Dates Delfino Reese MD Attending Provider Active Yeyo Mcneill , MARGIN CLERK-C Primary Care Provider Active Team Status: Active Member Role Status Dates Yeyo Mcneill , MARGIN CLERK-C Primary Care Provider Active Team Status: Inactive Member Role Status Dates Yeyo Mcneill , MARGIN CLERK-C Primary Care Provider Active Delfino Reese MD Attending Provider Active Team Status: Active Member Role Status Dates Avery Blanca APRN MARGIN CLERK-C Primary Care Provider Act dario Team Status: Inactive Member Role Status Dates Becky Gambino APRN Attending Provider Active Start: March 27, 2023 End: March 27, 2023 Team Status: Inactive Member Role Status Dates Becky Gambino APRN Attending Provider Active Start: March 27, 2023 End: March 27, 2023 Avery Blanca APRN MARGIN CLERK-C Primary Care Provider Act dario Start: March 27, 2023 End: March 27, 2023 Team Status: Inactive Member Role Status Dates Avery Blanca APRN MARGIN CLERK-C Primary Care Provider Act dario Start: June 14, 2023 End: June 14, 2023 Becky Gambino APRN Attending Provider Active Start: June 14, 2023 End: June 14, 2023 Team Status: Inactive Member Role Status Dates Avery Blanca APRN MARGIN CLERK-C Attending Provider Active Start: August 14, 2023 End: August 14, 2023 Team Status: Active Member Role Status Dates Services [facility] Primary Care Provider Active Team Status: Active Member Role Status Dates Avery Blanca APRN MARGIN CLERK-C Primary Care Provider Act dario Start: November [...] Inactive Member Role Status Dates Services [facility] Primary Care Provider Active Start: January 15, [...] Active Member Role Status Dates Services [facility] Primary Care Provider Active Start: January 16, [...] DATE CREATED AUTHOR AUTHOR'S ORGANIZ ATION 01/20/2023 [facility] DATE CREATED AUTHOR AUTHOR'S ORGANIZ ATION 03/07/2024 [facility] REASON FOR VISIT (unrecogniz ed [...] BE BASED ON THE PRIMARY CLINICAL RECORDS. [facility] [employer] [facility]. provides no warranty or guarantee of the accuracy or completeness of information in this document.
--- OUTSIDE RECORDS SUMMARY | 2024-04-22 23:32 | XMS_ITS | CCD ---
Author Organization [facility]form[facility] Care Team Providers Care Cable Installation Technician Name Role Phone [facility] Primary Care Provider DO Hal Orozco Emergency Provider CATIA Blanca Attending Provider MD Delfino Reese Attending Provider [phone] BRADY Mcneill Primary Care Provider [phone] AVERY BLANCA Primary Care Physician MAGGY WORLEY [...] Provider CATIA Blanca Primary Care Provider [phone] MD Jack Kwon Attending Provider [facility] Primary Care Provider CATIA Kerr Emergency Provider MD Jack Kwon Admit Provider EFFIE Deal Other Provider Unavailable EFFIE Romero Other Provider Unavailable EFFIE Thornton Other Provider Unavailable EFFIE Tom Other Provider Unavailable Mio RN Estella Other Provider Unavailable DO Chandan Whipple Other Provider [phone] MD Cisco Calderon Other Provider DO Jaime Alcocer Other Provider MD Srini Chavez Other Provider MD Ericka Dunn Other Provider MD Cm Escalona Other Provider Unavailable CATIA Bailon Other Provider MD Giuliano Serna Other Provider [phone] MD Albin Smith Other Provider MD Afshin Flores Other Provider MD Viktoria Padilla Other Provider DO Hari Nixon Other Provider MD Sarah Mahajan Other Provider MD Michael Avila Other Provider HUDSON Edwards-Jeannette Jones Other Provider [phone] CATIA Poe Other Provider Unavailable MD Nahum Soni Other Provider MD Scott Lunsford Other Provider MD Ruy Juarez Other Provider MD Maria Isabel Marte Other Provider Unavailable MD Ta Bonner Other Provider DO Mignon Lucero Other Provider DO Huy Escobar Other Provider CATIA Good Other Provider DO Diego Gregg Other Provider MD Carlos Johnson Other Provider [phone] CATIA Mcguire Other Provider CATIA Woods Other Provider MD Ashlee Osuna Other Provider MD Dariel Spence Other Provider [phone] DangeloDO Ermias forbes T Other Provider [phone] DO Gladys Matthews Other Provider MD Chato Juarez Other Provider MD Delma Kuo Other Provider CATIA Azar Other Provider MD Gurvinder Sosa Other Provider MD Sajan Knapp Other Provider EFFIE Carr Other Provider Unavailable Avery Blanca Primary Care Unavailable Becky Gambino Admitting Unavailable Becky Gambino Attending Unavailable Avery Blanca Attending Unavailable Avery Blanca Admitting Unavailable [facility] Primary Care Unavaila Avery [...] Consulting Unavailable Diego Gregg Consulting Unavailable Carlos Johsnon Consulting Unavailable Paulette Mcguire Consulting Unavailable Martha [...] Swelling of Lip/Tongue/Throa t, Anaphylactic reaction, Unknown [facility] Medications Current Medications Medication Drug Class(es) Dates Sig (Normalized) Sig (Original) acetaminophen 325 mg / HYDROcodone bitartrate 5 mg oral tablet (1 source) Opioid Agonist Start: 02-02-2022 Romance 325 mg-5 mg oral tablet 1 tab(s), [...] 11-06-2021 End: 01-15-2024 Promethazine Discontinued 25 MG ND Q6H November 06, 2021 12:00am January 15, [...] 4 Chronic Other aftercare (1 source) Other correction (current) drug therapy; Translations: [OTH RETIREMENT CURRENT DRUG THERAPY] Onset: 2 Episodic Other [...] Creatinine Clr Calc Pharmacy 94.82 Normal [facility] Comment on above: Order Comment: DRAWN BY NAYANA Performed By: #### C MP, CBC, ETOH #### [address] GFR/1.73 sq M.predicted MDRD (S/P/Bld) [Vol rate/Area] mL/min/{1.73_m2} Normal [facility] Comment on above: Order Comment: DRAWN BY NAYANA Performed By: #### C MP, CBC, ETOH #### [facility] [address] Calcium [Mass/volume] in Ser um or PlasmaOrdered By: Helen Bailon on 01-20-2024 Calcium [Mass/Vol] 9.3 mg/dL Normal 8.6-10.3 [facility] Comment on above: Order Comment: DRAWN BY MK Performed By: #### C MP, CBC, ETOH #### [facility] [address] Capillary blood glucose archie urement by glucometer (mass/volume)Ordered By: Jack Kwon on 01-20-2024 Glucose [Mass/Vol] 161 mg/dL Normal [facility] Comment on above: Random Glucose Refer ence Range is dependent on time and content of last meal. Glucose of more than 200 mg/dL in a nonstressed, ambulatory subject supports the diagnosis of Diabetes Mellitus. Result Comment: [place] om Glucose Reference Range is dependent on time and content of last meal. Glucose of more than 200 mg/dL in a nonstressed, ambulatory subject supports the diagnosis of Diabetes Mellitus. PERFORMED BY: [place] [address] PATHOLOGIST LEARNING COORDINATOR OSMEL BLUE M.D. Performed By: #### C MP, CBC, ETOH #### [facility] [address] [place] [address] Carbon dioxide, total [Moles /volume] in Serum or PlasmaOrdered By: Helen Bailon on 01-20-2024 CO2 [Moles/Vol] 22.5 mmol/L Normal 21.0-31.0 [facility] Comment on above: Order Comment: DRAWN BY MK Performed By: #### C MP, CBC, ETOH #### [facility] [address] [place] [address] [place] Chloride [Moles/volume] in S ben or PlasmaOrdered By: Helen Bailon on 01-20-2024 Chloride [Moles/Vol] 107 mmol/L Normal 98-107 [facility] Comment on above: Order Comment: DRAWN BY MK Performed By: #### C MP, CBC, ETOH #### [facility] [address] Creatinine [Mass/volume] in Serum or PlasmaOrdered By: Helen Bailon on 01-20-2024 Creatinine [Mass/Vol] 0.77 mg/dL Normal 0.60-1.20 [facility] Comment on above: Order Comment: DRAWN BY MK Performed By: #### C MP, CBC, ETOH #### [facility] [address] Glucose [Mass/volume] in Ser um or PlasmaOrdered By: Helen Bailon on 01-20-2024 Glucose [Mass/Vol] 98 mg/dL Normal 70-100 [facility] Comment on above: ADA recommended refe rence rangeRandom Glucose Reference Range is dependent on time and content of last meal. Glucose of more than 200 mg/dL in a nonstressed, ambulatory subject supports the diagnosis of Diabetes Mellitus. Order Comment: DRAWN BY MK Result Comment: [place] om Glucose Reference Range is dependent on time and content of last meal. Glucose of more than 200 mg/dL in a nonstressed, ambulatory subject supports the diagnosis of Diabetes Mellitus. ADA recommended reference range Performed By: #### C MP, CBC, ETOH #### [facility] [address] Magnesium [Mass/volume] in S ben or PlasmaOrdered By: Helen Bailon on 01-20-2024 Magnesium [Mass/Vol] 1.6 mg/dL Low 1.9-2.7 [facility] Comment on above: Order Comment: DRAWN BY Result Comment: PERF ORMED BY: [place] [address] PATHOLOGIST LEARNING COORDINATOR OSMEL BLUE M.D. Performed By: #### C MP, CBC, ETOH #### [facility] [address] No Panel InformationOrdered By: Helen Bailon on 01-20-2024 Estimated GFR (CKD-EPI) > 60.0 mL/Min [facility] Creatinine Clearance (Chem 94.82 [facility] Potassium [Moles/volume] in Serum or PlasmaOrdered By: Helen Uvaldo on 01-20-2024 Potassium [Moles/Vol] 3.9 mmol/L Normal 3.5-5.1 [facility] Comment on above: Order Comment: DRAWN BY MK Performed By: #### C MP, CBC, ETOH #### [facility] [address] Serum or plasma anion gap de terminationOrdered By: Helen Uvaldo on 01-20-2024 Anion gap [Moles/Vol] 13.4 mmol/L Normal 6.0-15.0 [facility] Comment on above: Order Comment: DRAWN BY MK Performed By: #### C MP, CBC, ETOH #### [facility] [address] [place] [address] [place] Sodium [Moles/volume] in Ser um or PlasmaOrdered By: Helen Uvaldo on 01-20-2024 Sodium [Moles/Vol] 139 mmol/L Normal 136-145 [facility] Comment on above: Order Comment: DRAWN BY MK Performed By: #### C MP, CBC, ETOH #### [facility] [address] [place] [address] [place] Urea nitrogen [Mass/volume] in Serum or PlasmaOrdered By: Helen Uvaldo on 01-20-2024 Urea nitrogen [Mass/Vol] 11 mg/dL Normal 7-25 [facility] Comment on above: Order Comment: DRAWN BY MK Performed By: #### C MP, CBC, ETOH #### [facility] [address] [place] [address] [place] A1C with Estimated Average G verotodd 01-19-2024 Glucose [Mass/Vol] 105 mg/dL Normal [facility] Comment on above: Order Comment: Comme nt ok to use previously drawn lab Result Comment: PERF ORMED BY: [place] [address] PATHOLOGIST LEARNING COORDINATOR OSMEL BLUE M.D. Performed By: #### A [address] [facility] eA #### [facility] [address] [place] [address] [place] Alanine aminotransferase [En zymatic activity/volume] in Serum or PlasmaOrdered By: Helentodd Bailon on 01-19-2024 ALT [Catalytic activity/Vol] 76 U/L High 7-52 [facility] Comment on above: Performed By: #### C MP, CBC, ETOH #### [facility] [address] [place] [address] [place] Albumin [Mass/volume] in Ser um or Plasma by Bromocresol green (BCG) dye binding methoOrdered By: Helen Bailon on 01-19-2024 Albumin BCG dye [Mass/Vol] 3.9 g/dL 3.5-5.7 [facility] Alkaline phosphatase [Enzyma tic activity/volume] in Serum or PlasmaOrdered By: Helen Bailon on 01-19-2024 ALP [Catalytic activity/Vol] 80 U/L Normal 34-104 [facility] Comment on above: Performed By: #### C MP, CBC, ETOH #### [facility] [address] Aspartate aminotransferase [ Enzymatic activity/volume] in Serum or PlasmaOrdered By: Helen Bailon on 01-19-2024 AST [Catalytic activity/Vol] 110 U/L High 13-39 [facility] Comment on above: Performed By: #### C MP, CBC, ETOH #### [facility] [address] [place] [address] [place] Bilirubin.total [Mass/volume ] in Serum or PlasmaOrdered By: Helen Bailon on 01-19-2024 Bilirubin [Mass/Vol] 0.7 mg/dL Normal 0.3-1.0 [facility] Comment on above: Performed By: #### C MP, CBC, ETOH #### [facility] [address] [place] [id number] [place] Comprehensive Metabolic Pane mike 01-19-2024 Albumin [Mass/Vol] 3.9 g/dL Normal 3.5-5.7 [facility] Comment on above: Performed By: #### C MP, CBC, ETOH #### [facility] [address] [place] [id number] [place] Anion gap [Moles/Vol] 14.1 mmol/L Normal 6.0-15.0 [facility] Comment on above: Performed By: #### C MP, CBC, ETOH #### [facility] [address] [place] [id number] [place] Calcium [Mass/Vol] 9.3 mg/dL Normal 8.6-10.3 [facility] Comment on above: Performed By: #### C MP, CBC, ETOH #### [facility] [address] [place] [address] [place] Chloride [Moles/Vol] 108 mmol/L High 98-107 [facility] Comment on above: Performed By: #### C MP, CBC, ETOH #### [facility] [address] [place] [address] [place] CO2 [Moles/Vol] 22.1 mmol/L Normal 21.0-31.0 [facility] Comment on above: Performed By: #### C MP, CBC, ETOH #### [facility] [address] [place] [address] [place] Creatinine [Mass/Vol] 0.63 mg/dL Normal 0.60-1.20 [facility] Comment on above: Performed By: #### C MP, CBC, ETOH #### [place] [address] [place] Creatinine Clr Calc Pharmacy 115.90 Normal [facility] Comment on above: Performed By: #### C MP, CBC, ETOH #### [facility] [address] [place] [address] [place] GFR/1.73 sq M.predicted MDRD (S/P/Bld) [Vol rate/Area] mL/min/{1.73_m2} Normal [facility] Comment on above: Performed By: #### C MP, CBC, ETOH #### [facility] [address] [place] [id number] [place] Glucose [Mass/Vol] 85 mg/dL Normal 70-100 [facility] Comment on above: Result Comment: [facility] Glucose Reference Range is dependent on time and content of last meal. Glucose of more than 200 mg/dL in a nonstressed, ambulatory subject supports the diagnosis of Diabetes Mellitus. ADA recommended reference range Performed By: #### C MP, CBC, ETOH #### [facility] [address] Potassium [Moles/Vol] 3.2 mmol/L Low 3.5-5.1 [facility] Comment on above: Performed By: #### C MP, CBC, ETOH #### [facility] [address] [place] [address] [place] Sodium [Moles/Vol] 141 mmol/L Normal 136-145 [facility] Comment on above: Performed By: #### C MP, CBC, ETOH #### [facility] [address] [place] [id number] [place] Urea nitrogen [Mass/Vol] 7 mg/dL Normal 7-25 [facility] Comment on above: Performed By: #### C MP, CBC, ETOH #### [facility] [address] [place] [id number] [place] Folate [Mass/volume] in Seru m or PlasmaOrdered By: Helen Bailon on 01-19-2024 Folate [Mass/Vol] 36.0 ng/mL >5.9 [facility] Comment on above: Folate reference ran ge: >5.9 ng/mlThe WHO technical consultation on folate and vitamin [id number] has determined that folate concentrations lessthan 4 ng/ml are considered deficient. Glucose mean value [Mass/vol ume] in Blood Estimated from glycated hemoglobinOrdered By: Helen Bailon on 01-19-2024 Average glucose Estimated from glycated hemoglobin (Bld) [Mass/Vol] 105 mg/dL [facility] Hemoglobin A1c percentageOrd ered By: Helen Bailon on 01-19-2024 HbA1c (Bld) [Mass fraction] 5.3 % Normal 4.3-5.6 [facility] Comment on above: Increased risk for d iabetes: 5.7 - 6.4diabetes: >6.4glycemic control for adults with diabetes: <7.0 Order Comment: Comme nt ok to use previously drawn lab Result Comment: Incr eased risk for diabetes: 5.7 - 6.4 diabetes: >6.4 glycemic control for adults with diabetes: <7.0 Performed By: #### A 1C [facility] #### [address] Lipase [Enzymatic activity/v olume] in Serum or PlasmaOrdered By: Helen Bailon on 01-19-2024 Lipase [Catalytic activity/Vol] U/L Low 11.0-82.0 [facility] Comment on above: Performed By: #### C MP, CBC, ETOH #### [address] Phosphate [Mass/volume] in S ben or PlasmaOrdered By: Helen Bailon on 01-19-2024 Phosphate [Mass/Vol] 6.4 mg/dL High 2.5-4.5 [facility] Comment on above: Performed By: #### C MP, CBC, ETOH #### [address] Protein [Mass/volume] in Ser um or PlasmaOrdered By: Helen Bailon on 01-19-2024 Protein [Mass/Vol] 6.7 g/dL Normal 6.4-8.9 [facility] Comment on above: Performed By: #### C MP, CBC, ETOH #### [address] Serum globulin measurement b y calculation (mass/volume)Ordered By: Helen Bailon on 01-19-2024 Globulin (S) [Mass/Vol] 2.8 g/dL Normal [facility] Comment on above: Performed By: #### C MP, CBC, ETOH #### [address] Serum or plasma albumin/glob ulin mass ratioOrdered By: Helen Bailon on 01-19-2024 Albumin/Globulin [Mass ratio] 1.4 {ratio} [facility] Comment on above: Performed By: #### C MP, CBC, ETOH #### [address] Vit. B12/Folate Profileon Folate 36.0 ng/mL Normal >5.9 [facility] Comment on above: Result Comment: Dorie te reference range: >5.9 ng/ml The WHO technical consultation on folate and vitamin b12 deficiencies has determined that folate concentrations less than 4 ng/ml are considered deficient. PERFORMED BY: [place] [address] PATHOLOGIST LEARNING COORDINATOR OSMEL BLUE M.D. Performed By: #### C MP, CBC, ETOH #### [address] Vitamin B1 (Thiamine) Bloodo n 01-19-2024 Vitamin B1 (Thiamine) Blood 207.3 High 66.5-200.0 [facility] Comment on above: Result Comment: This test was developed and its performance characteristics determined by [employer]. It has not been cleared or approved by the Food and Drug Administration. Performed at: [address] [id number] [address] Light Repairer Helper: Charlie Manriquez MD, Phone: [phone] PERFORMED BY: [place] [address] PATHOLOGIST LEARNING COORDINATOR OSMEL BLUE M.D. Performed By: #### C MP, CBC, ETOH #### [address] Vitamin B12 ser/plasOrdered By: Helen Bailon on 01-19-2024 Cobalamin (Vitamin B12) [Mass/Vol] 392 pg/mL Normal 180-914 [facility] Comment on above: Performed By: #### C MP, CBC, ETOH #### [place] [id number] [facility] Comprehensive Metabolic Pane mike 01-18-2024 Albumin [Mass/Vol] 4.5 g/dL Normal 3.5-5.7 [facility] Comment on above: Performed By: #### C MP, CBC, ETOH #### [place] [address] [place] Albumin/Globulin [Mass ratio] 1.5 {ratio} Normal [facility] Comment on above: Performed By: #### C MP, CBC, ETOH #### [address] ALP [Catalytic activity/Vol] 97 U/L Normal 34-104 [facility] Comment on above: Performed By: #### C MP, CBC, ETOH #### [address] ALT [Catalytic activity/Vol] 66 U/L High 7-52 [facility] Comment on above: Performed By: #### C MP, CBC, ETOH #### [address] Anion gap [Moles/Vol] 14.5 mmol/L Normal 6.0-15.0 [facility] Comment on above: Performed By: #### C MP, CBC, ETOH #### [address] AST [Catalytic activity/Vol] 103 U/L High 13-39 [facility] Comment on above: Performed By: #### C MP, CBC, ETOH #### [place] [address] [place] Bilirubin [Mass/Vol] 0.7 mg/dL Normal 0.3-1.0 [facility] Comment on above: Performed By: #### C MP, CBC, ETOH #### [place] [address] [place] Calcium [Mass/Vol] 10.2 mg/dL Normal 8.6-10.3 [facility] Comment on above: Performed By: #### C MP, CBC, ETOH #### [place] [address] [place] Chloride [Moles/Vol] 105 mmol/L Normal 98-107 [facility] Comment on above: Performed By: #### C MP, CBC, ETOH #### [address] CO2 [Moles/Vol] 23.9 mmol/L Normal 21.0-31.0 [facility] Comment on above: Performed By: #### C MP, CBC, ETOH #### [address] Creatinine [Mass/Vol] 0.66 mg/dL Normal 0.60-1.20 [facility] Comment on above: Performed By: #### C MP, CBC, ETOH #### [address] Creatinine Clr Calc Pharmacy 110.63 Normal [facility] Comment on above: Result Comment: PERF ORMED BY: [place] [address] PATHOLOGIST LEARNING COORDINATOR OSMEL BLUE M.D. Performed By: #### C MP, CBC, ETOH #### [address] GFR/1.73 sq M.predicted MDRD (S/P/Bld) [Vol rate/Area] mL/min/{1.73_m2} Normal [facility] Comment on above: Performed By: #### C MP, CBC, ETOH #### [address] Globulin (S) [Mass/Vol] 3.1 g/dL Normal [facility] Comment on above: Performed By: #### C MP, CBC, ETOH #### [address] Glucose [Mass/Vol] 135 mg/dL High 70-100 [facility] Comment on above: Result Comment: [place] Glucose Reference Range is dependent on time and content of last meal. Glucose of more than 200 mg/dL in a nonstressed, ambulatory subject supports the diagnosis of Diabetes Mellitus. ADA recommended reference range Performed By: #### C MP, CBC, ETOH #### [address] Potassium [Moles/Vol] 3.4 mmol/L Low 3.5-5.1 [facility] Comment on above: Performed By: #### C MP, CBC, ETOH #### [facility] [address] [place] [address] [place] Protein [Mass/Vol] 7.6 g/dL Normal 6.4-8.9 [facility] Comment on above: Performed By: #### C MP, CBC, ETOH #### [facility] [address] [place] [address] [place] Sodium [Moles/Vol] 140 mmol/L Normal 136-145 [facility] Comment on above: Performed By: #### C MP, CBC, ETOH #### [facility] [address] [place] [address] [place] Urea nitrogen [Mass/Vol] 5 mg/dL Low 7-25 [facility] Comment on above: Performed By: #### C MP, CBC, ETOH #### [facility] [address] Magnesiumon 01-18-2024 Magnesium [Mass/Vol] 1.4 mg/dL Low 1.9-2.7 [facility] Comment on above: Result Comment: PERF ORMED BY: [place] [address] PATHOLOGIST LEARNING COORDINATOR OSMEL BLUE M.D. Performed By: #### C MP, CBC, ETOH #### [place] [address] [place] Cholesterol [Mass/volume] in Serum or PlasmaOrdered By: Jack Kwon on 01-16-2024 Cholesterol [Mass/Vol] 270 mg/dL High 140-200 [facility] Comment on above: Chol less than 200 m g/dl low riskChol 201-239 mg/dl borderline riskChol 240 mg/dl and greater high risk Result Comment: Chol less than 200 mg/dl low risk Chol 201-239 mg/dl borderline risk Chol 240 mg/dl and greater high risk Performed By: #### C MP, CBC, ETOH #### [place] [address] [place] Cholesterol in LDL Calc [Mas s/Vol]Ordered By: Jack Kwon on 01-16-2024 Cholesterol in LDL [Mass/Vol] 134 mg/dL High 0-100 [facility] Comment on above: LDL ATP III CLASSIFI CATIONLDL less than 100 mg/dL OptimalLDL 100-129 mg/dL Near or above optimalLDL 130-159 mg/dL Borderline highLDL 160-189 mg/dL HighLDL greater than 189 mg/dL Very high Cholesterol in VLDL Calc [Ma ss/Vol]Ordered By: Jack Kwon on 01-16-2024 Cholesterol in VLDL [Mass/Vol] 28 mg/dL [facility] ECG 12 lead ECGon 01-16-2024 ECG 12 lead ECG [facility] [address] Electrocardiograph Report Signed Patient: Shikha Loera MR#: [id number] : 1985 Acct:[id number] Age/Sex: 38 / F ADM Date: 01/15/24 Loc: Room: [address] [place] [address] Type: ADM IN Attending Dr: Jack Kwon [...] rhythm Normal ECG Confirmed by Almaz Armando ([id number]) on 01/16/2024 4:49:39 PM Referred By: Electronically Signed By: Almaz Armando Transcribed By: MUS Signed By Almaz Armando MD 4 1649 Normal [facility] Lipid Panelon 01-16-2024 LDL Cholesterol,Calculated 134 mg/dL High 0-100 [facility] Comment on above: Result Comment: LDL ATP III CLASSIFICATION LDL less than 100 mg/dL Optimal LDL 100-129 mg/dL Near or above optimal LDL 130-159 mg/dL Borderline high LDL 160-189 mg/dL High LDL greater than 189 mg/dL Very high Performed By: #### C MP, CBC, ETOH #### [facility] [address] Triglyceride w/Reflex 143 mg/dL Normal 0-149 [facility] Comment on above: Result Comment: TRIG ATP III CLASSIFICATION TRIG less than 150 mg/dL Normal TRIG 150-199 mg/dL Borderline high TRIG 200-500 mg/dL High TRIG greater than 500 mg/dL Very high Standard traceable to the Center for Disease Conrtrol and Prevention (CDC) test method. Performed By: #### C MP, CBC, ETOH #### [facility] [address] VLDL CHOLESTEROL 28 mg/dL Normal [facility] Comment on above: Performed By: #### C MP, CBC, ETOH #### [facility] [address] Magnesiumon 01-16-2024 Magnesium [Mass/Vol] 1.6 mg/dL Low 1.9-2.7 [facility] Comment on above: Performed By: #### C MP, CBC, ETOH #### [facility] [address] Serum or plasma high density lipoprotein (HDL) cholesterol measurementOrdered By: Jack Kwon on 01-16-2024 Cholesterol in HDL [Mass/Vol] 107 mg/dL High 23-92 [facility] Comment on above: HDL CHOL ATP-III CLA SSIFICATION Cardiovascular RiskHDL > or equal to 60 mg/dL LOWHDL < 40 mg/dL HIGH Result Comment: HDL CHOL ATP-III CLASSIFICATION Cardiovascular Risk HDL > or equal to 60 mg/dL LOW HDL < 40 mg/dL HIGH Performed By: #### C MP, CBC, ETOH #### [facility] [address] Serum or plasma total choles terol/high density lipoprotein (HDL) cholesterol mass ratOrdered By: Jack Kwon on 01-16-2024 Cholesterol.total/Chol esterol in HDL [Mass ratio] 2.5 {ratio} Normal <5.0 [facility] Comment on above: Performed By: #### C MP, CBC, ETOH #### [facility] [address] [place] [id number] [facility] Thyroid Stim Hormone w/Rflxo n 01-16-2024 Thyroid Stim Hormone w/Rflx 3.66 u[iU]/mL Normal 0.45-5.33 [facility] Comment on above: Performed By: #### C MP, CBC, ETOH #### [facility] [address] [place] [id number] [facility] Thyrotropin [Units/volume] i n Serum or PlasmaOrdered By: Jack Kwon on 01-16-2024 TSH Qn 3.66 m[IU]/L 0.45-5.33 [facility] Triglyceride [Mass/volume] i n Serum or PlasmaOrdered By: Jack Kwon on 01-16-2024 Triglyceride [Mass/Vol] 143 mg/dL 0-149 [facility] Comment on above: TRIG ATP III CLASSIF ICATIONTRIG less than 150 mg/dL NormalTRIG 150-199 mg/dL Borderline highTRIG 200-500 mg/dL High TRIG greater than 500 mg/dL Very highStandard traceable to the Center for Disease Conrtrol and Prevention (CDC) test method. Vitamin D 25 Hydroxy Totalon 01-16-2024 Vitamin D 25 Hydroxy Total 12.7 ng/mL Low 30-100 [facility] Comment on above: Result Comment: SANTY MIN D STATUS 25(OH)VITAMIN D RANGE (ng/mL) Deficient <20 Insufficient 20 to <30 Sufficient 30 to 100 Reference: Davey MF,Merlin NC, Morales FOX, et al. Evaluation,treatment, and prevention of vitamin D deficiency; an Endocrine Society clinical practice guideline. JCEM. 2010; 96(7):1911-30. PERFORMED BY: [place] [address] PATHOLOGIST LEARNING COORDINATOR OSMEL BLUE M.D. Performed By: #### C MP, CBC, ETOH #### [facility] [address] [id number] [facility] Vitamin D+Metabolites [Mass/ volume] in Serum or PlasmaOrdered By: Jack Kwon on 01-16-2024 Vitamin D+Metabolites [Mass/Vol] 12.7 ng/mL Low 30-100 [facility] Comment on above: VITAMIN D STATUS 25( [...] ALT [Catalytic activity/Vol] 80 U/L High 7-52 [facility] Comment on above: Performed By: #### C MP, CBC, ETOH #### [facility] [address] [place] [address] [place] Albumin [Mass/volume] in Ser um or Plasma by Bromocresol green (BCG) dye binding methoOrdered By: Libby Kerr on 01-14-2024 Albumin BCG dye [Mass/Vol] 4.6 g/dL 3.5-5.7 [facility] Alkaline phosphatase [Enzyma tic activity/volume] in Serum or PlasmaOrdered By: Libby Kerr on 01-14-2024 ALP [Catalytic activity/Vol] 115 U/L High 34-104 [facility] Comment on above: Result Comment: PERF ORMED BY: [facility] [address] [facility] [address] PATHOLOGIST LEARNING COORDINATOR OSMEL BLUE M.D. Performed By: #### C MP, CBC, ETOH #### [facility] [address] [id number] [place] Amphetamine Screen Ql (U)Ord ered By: Libby Kerr on 01-14-2024 Amphetamines Ql (U) Negative Negative [facility] Aspartate aminotransferase [ Enzymatic activity/volume] in Serum or PlasmaOrdered By: Libby Kerr on 01-14-2024 AST [Catalytic activity/Vol] 127 U/L High 13-39 [facility] Comment on above: Performed By: #### C MP, CBC, ETOH #### [address] Automated basophil %Ordered By: Libby Attilamay on 01-14-2024 Basophils/100 WBC (Bld) 3.1 % Normal . [facility] Comment on above: Performed By: #### C MP, CBC, ETOH #### [address] Automated basophil countOrde red By: Libby Attilamay on 01-14-2024 Basophils (Bld) [#/Vol] 0.1 10*3/uL Normal 0.0-0.2 [facility] Comment on above: Result Comment: PERF ORMED BY: [place] [address] PATHOLOGIST LEARNING COORDINATOR OSMEL BLUE M.D. Performed By: #### C MP, CBC, ETOH #### [address] Automated blood monocyte cou ntOrdered By: Libby Attilamay on 01-14-2024 Monocytes (Bld) [#/Vol] 0.2 10*3/uL Normal 0.0-0.8 [facility] Comment on above: Performed By: #### C MP, CBC, ETOH #### [address] Automated eosinophil %Ordere d By: Libby Kerr on 01-14-2024 Eosinophils/100 WBC (Bld) 0.3 % Normal . [facility] Comment on above: Performed By: #### C MP, CBC, ETOH #### [address] Automated eosinophil countOr dered By: Libby Attilamay on 01-14-2024 Eosinophils (Bld) [#/Vol] 0.0 10*3/uL Normal 0.0-0.45 [facility] Comment on above: Performed By: #### C MP, CBC, ETOH #### [address] Automated monocyte %Ordered By: Libby Kerr on 01-14-2024 Monocytes/100 WBC (Bld) 3.1 % Normal . [facility] Comment on above: Performed By: #### C MP, CBC, ETOH #### [facility] [address] Automated neutrophil %Ordere d By: Libby Kerr on 01-14-2024 Neutrophils/100 WBC (Bld) 44.5 % Normal . [facility] Comment on above: Performed By: #### C MP, CBC, ETOH #### [facility] [address] Bacteria [Presence] in Urine by AutomatedOrdered By: Libby Kerr on 01-14-2024 Bacteria Auto Ql (U) 1+ [HPF] High None Seen [facility] Barbiturates [Presence] in U rine by Screen methodOrdered By: Libby Kerr on 01-14-2024 Barbiturates Screen Ql (U) Negative Negative [facility] Benzodiazepines Screen Ql (U )Ordered By: Libby Kerr on 01-14-2024 Benzodiazepines Ql (U) Negative Negative [facility] Benzoylecgonine [Presence] i n Urine by Screen methodOrdered By: Libby Kerr on 01-14-2024 Benzoylecgonine Screen Ql (U) Negative Negative [facility] Bilirubin Test strip Ql (U)O rdered By: Libby Kerr on 01-14-2024 Bilirubin Ql (U) Negative Negative [facility] Bilirubin.total [Mass/volume ] in Serum or PlasmaOrdered By: Libby Kerr on 01-14-2024 Bilirubin [Mass/Vol] 0.6 mg/dL Normal 0.3-1.0 [facility] Comment on above: Performed By: #### C MP, CBC, ETOH #### [facility] [address] [place] [address] [place] Calcium [Mass/volume] in Ser um or PlasmaOrdered By: Libby Kerr on 01-14-2024 Calcium [Mass/Vol] 9.2 mg/dL Normal 8.6-10.3 [facility] Comment on above: Performed By: #### C MP, CBC, ETOH #### [place] [address] [place] Cannabinoids [Presence] in U rine by Screen methodOrdered By: Libby Kerr on 01-14-2024 Cannabinoids Screen Ql (U) Negative Negative [facility] Comment on above: These are unconfirme d results and should not be used for legal purposes. Drug Cut-Off Concentration: AMPH 1000 ng/mL DALLAS 200 ng/mL DAVID 200 ng/mL COCM 300 ng/mL OP 300 ng/mL PCP 25 ng/mL THC 20 ng/mL Carbon dioxide, total [Moles /volume] in Serum or PlasmaOrdered By: Libby Kerr on 01-14-2024 CO2 [Moles/Vol] 23.5 mmol/L Normal 21.0-31.0 [facility] Comment on above: Performed By: #### C MP, CBC, ETOH #### [place] [address] [place] Chloride [Moles/volume] in S ben or PlasmaOrdered By: Libby Kerr on 01-14-2024 Chloride [Moles/Vol] 102 mmol/L Normal 98-107 [facility] Comment on above: Performed By: #### C MP, CBC, ETOH #### [address] Color of Urine by AutoOrdere d By: Libby Kerr on 01-14-2024 Color (U) Light-yellow Normal Yellow [facility] Comment on above: Order Comment: Name Collection Type:: Clean-Voided Midstream Performed By: #### C MP, CBC, ETOH #### [place] [address] [place] Complete Blood Count Auto Di ffon 01-14-2024 Mean Corpuscular HGB Conc 35.0 g/dL Normal 32.0-35.0 [facility] Comment on above: Performed By: #### C MP, CBC, ETOH #### [place] [address] [place] Monocytes/100 WBC (Bld) 17.74 % Normal 0.00-20.00 [facility] Comment on above: Result Comment: For adults in ED, MDW > 20.0 may be associated with a higher risk of sepsis during the first 12 hrs of hospital admission Performed By: #### C MP, CBC, ETOH #### [address] NRBC% 0.1 /100{WBC} Normal 0-0.5 [facility] Comment on above: Performed By: #### C MP, CBC, ETOH #### [address] Comprehensive Metabolic Pane mike 01-14-2024 Albumin [Mass/Vol] 4.6 g/dL Normal 3.5-5.7 [facility] Comment on above: Performed By: #### C MP, CBC, ETOH #### [address] GFR/1.73 sq M.predicted MDRD (S/P/Bld) [Vol rate/Area] mL/min/{1.73_m2} Normal [facility] Comment on above: Performed By: #### C MP, CBC, ETOH #### [address] Creatinine [Mass/volume] in Serum or PlasmaOrdered By: Libby Kerr on 01-14-2024 Creatinine [Mass/Vol] 0.58 mg/dL Low 0.60-1.20 [facility] Comment on above: Performed By: #### C MP, CBC, ETOH #### [place] [address] [place] Dipstick and Microscopicon 1 Bacteria,Urine 1+ High None Seen [facility] Comment on above: Order Comment: Name Collection Type:: Clean-Voided Midstream Performed By: #### C MP, CBC, ETOH #### [address] Bilirubin,Urine Negative Normal Negative [facility] Comment on above: Order Comment: Name Collection Type:: Clean-Voided Midstream Performed By: #### C MP, CBC, ETOH #### [address] Glucose Ql (U) Normal Normal Normal [facility] Comment on above: Order Comment: Name Collection Type:: Clean-Voided Midstream Performed By: #### C MP, CBC, ETOH #### [facility] [address] [place] [address] [place] Hyaline Casts,Urine 0-8 Normal 0-8 [facility] Comment on above: Order Comment: Name Collection Type:: Clean-Voided Midstream Performed By: #### C MP, CBC, ETOH #### [place] [address] [place] Nitrite,Urine Negative Normal Negative [facility] Comment on above: Order Comment: Name Collection Type:: Clean-Voided Midstream Performed By: #### C MP, CBC, ETOH #### [place] [address] [place] Occult Blood,Urine Negative Normal Negative [facility] Comment on above: Order Comment: Name Collection Type:: Clean-Voided Midstream Performed By: #### C MP, CBC, ETOH #### [address] RBC,Urine 1-2 Normal 0-4 [facility] Comment on above: Order Comment: Name Collection Type:: Clean-Voided Midstream Performed By: #### C MP, CBC, ETOH #### [address] Specificy [place],Urine 1.005 Normal 1.001-1.03 0 [facility] Comment on above: Order Comment: Name Collection Type:: Clean-Voided Midstream Performed By: #### C MP, CBC, ETOH #### [place] [address] [place] Squamous Epithelial Cell,Urine 3-4 High 0-2 [facility] Comment on above: Order Comment: Name Collection Type:: Clean-Voided Midstream Performed By: #### C MP, CBC, ETOH #### [place] [address] [place] Urobilinogen,Urine Normal Normal Normal [facility] Comment on above: Order Comment: Name Collection Type:: Clean-Voided Midstream Performed By: #### C MP, CBC, ETOH #### [place] [address] [place] WBC,Urine 1-2 Normal 0-4 [facility] Comment on above: Order Comment: Name Collection Type:: Clean-Voided Midstream Performed By: #### C MP, CBC, ETOH #### [place] [address] [place] Drug Screen,Urineon 01-14-20 24 Amphetamine Screen,Urine Negative Normal Negative [facility] Comment on above: Performed By: #### C MP, CBC, ETOH #### [address] Barbiturate Screen,Urine Negative Normal Negative [facility] Comment on above: Performed By: #### C MP, CBC, ETOH #### [place] [address] [place] Benzodiazepines Screen,Urine Negative Normal Negative [facility] Comment on above: Performed By: #### C MP, CBC, ETOH #### [address] Cannabinoid Screen,Urine Negative Normal Negative [facility] Comment on above: Result Comment: Thes e are unconfirmed results and should not be used for legal purposes. Drug Cut-Off Concentration: AMPH 1000 ng/mL DALLAS 200 ng/mL DAVID 200 ng/mL COCM 300 ng/mL OP 300 ng/mL PCP 25 ng/mL THC 20 ng/mL PERFORMED BY: [place] [address] PATHOLOGIST LEARNING COORDINATOR OSMEL BLUE M.D. Performed By: #### C MP, CBC, ETOH #### [address] Cocaine Screen,Urine Negative Normal Negative [facility] Comment on above: Performed By: #### C MP, CBC, ETOH #### [facility] [address] Opiate Screen,Urine Negative Normal Negative [facility] Comment on above: Performed By: #### C MP, CBC, ETOH #### [facility] [address] Phencyclidine Screen,Urine Negative Normal Negative [facility] Comment on above: Performed By: #### C MP, CBC, ETOH #### [facility] [address] ECG 12 lead ECGon 01-14-2024 ECG 12 lead ECG [facility] [place] [address] [place] [address] Electrocardiograph Report Signed Patient: Shikha Loera MR#: [id number] : 1985 Acct:[id number] Age/Sex: 38 / F ADM Date: 01/15/24 Loc: Room: [address] [place] [address] Type: ADM IN Attending Dr: Jack Kwon [...] : 450 ms Sinus tachycardia with short ND Otherwise normal ECG When compared with ECG of 14-Feb-2015 09:02, ND interval has decreased Vent. rate has increased by 73 bpm Confirmed by LILIANA MARINA DO ([id number]) on 01/15/2024 4:02:38 PM Referred By: Electronically Signed By: LILIANA MARINA DO Transcribed By: MUS Signed By Liliana Marina DO 01/14 1602 Normal [facility] Epithelial cells.squamous [# /area] in Urine sediment by Automated countOrdered By: Libby Kerr on 01-14-2024 Epithelial cells.squamous Auto (Urine sed) [#/Area] 3-4 [HPF] High 0-2 [facility] Erythrocyte distribution wid th [Ratio] by Automated countOrdered By: Libby Kerr on 01-14-2024 Erythrocyte distribution width (RBC) [Ratio] 13.5 % Normal 11.9-15.3 [facility] Comment on above: Performed By: #### C MP, CBC, ETOH #### [address] Erythrocytes [#/area] in Uri ne sediment by Automated countOrdered By: Libby Kerr on 01-14-2024 RBC Auto (Urine sed) [#/Area] 1-2 [HPF] 0-4 [facility] Erythrocytes [#/volume] in B lood by Automated countOrdered By: Libby Kerr on 01-14-2024 RBC (Bld) [#/Vol] 4.73 10*6/uL Normal 3.60-5.00 [facility] Comment on above: Performed By: #### C MP, CBC, ETOH #### [facility] [address] [place] [address] [place] Ethanol [Mass/volume] in Ser um or PlasmaOrdered By: Libby Kerr on 01-14-2024 Ethanol [Mass/Vol] 456 mg/dL Normal [facility] Comment on above: Performed By: #### C MP, CBC, ETOH #### [address] Ethanol [Mass/Vol] 0.456 % [facility] Ethyl Alcohol Profileon Percent Ethanol 0.456 % Normal [facility] Comment on above: Result Comment: PERF ORMED BY: [place] [address] PATHOLOGIST LEARNING COORDINATOR OSMEL BLUE M.D. Performed By: #### C MP, CBC, ETOH #### [facility] [address] [place] [address] [place] Glucose [Mass/volume] in Ser um or PlasmaOrdered By: Libby Kerr on 01-14-2024 Glucose [Mass/Vol] 107 mg/dL High 70-100 [facility] Comment on above: ADA recommended refe rence rangeRandom Glucose Reference Range is dependent on time and content of last meal. Glucose of more than 200 mg/dL in a nonstressed, ambulatory subject supports the diagnosis of Diabetes Mellitus. Result Comment: [place] om Glucose Reference Range is dependent on time and content of last meal. Glucose of more than 200 mg/dL in a nonstressed, ambulatory subject supports the diagnosis of Diabetes Mellitus. ADA recommended reference range Performed By: #### C MP, CBC, ETOH #### [address] Glucose [Mass/volume] in Uri ne by Test stripOrdered By: Libby Kerr on 01-14-2024 Glucose Test strip (U) [Mass/Vol] Normal mg/dL Normal [facility] HCG ( test) IA.rapi d Ql (U)Ordered By: Libby Krer on 01-14-2024 HCG ( test) Ql (U) Negative [facility] HCG,Urineon 01-14-2024 Beta HCG ( test) Ql (U) Negative Normal [facility] Comment on above: Order Comment: Name Collection Type:: Clean-Voided Midstream Result Comment: PERF ORMED BY: [place] [address] PATHOLOGIST LEARNING COORDINATOR OSMEL BLUE M.D. Performed By: #### C MP, CBC, ETOH #### [address] Hematocrit [Volume Fraction] of Blood by Automated countOrdered By: Libby Kerr on 01-14-2024 Hematocrit (Bld) [Volume fraction] 43.3 % Normal 34.0-46.4 [facility] Comment on above: Performed By: #### C MP, CBC, ETOH #### [address] Hemoglobin Test strip Ql (U) Ordered By: Libby Kerr on 01-14-2024 Hemoglobin Ql (U) Negative Negative [facility] Hemoglobin [Mass/volume] in BloodOrdered By: Libby Kerr on 01-14-2024 Hemoglobin (Bld) [Mass/Vol] 15.1 g/dL Normal 11.8-15.4 [facility] Comment on above: Performed By: #### C MP, CBC, ETOH #### [facility] [address] [place] [address] [place] Hyaline casts [#/area] in Ur ine sediment by Automated countOrdered By: Libby Kerr on 01-14-2024 Hyaline casts Auto (Urine sed) [#/Area] 0-8 [LPF] 0-8 [facility] Ketones [Presence] in Urine by Test stripOrdered By: Libby Kerr on 01-14-2024 Ketones Ql (U) Negative Normal Negative [facility] Comment on above: Order Comment: Name Collection Type:: Clean-Voided Midstream Performed By: #### C MP, CBC, ETOH #### [facility] [address] [place] [address] [place] Leukocyte esterase [Presence ] in Urine by Test stripOrdered By: Libby Kerr on 01-14-2024 Leukocyte esterase Test strip Ql (U) Negative Normal Negative [facility] Comment on above: Order Comment: Name Collection Type:: Clean-Voided Midstream Performed By: #### C MP, CBC, ETOH #### [facility] [address] [place] [address] [place] Leukocytes [#/area] in Urine sediment by Automated countOrdered By: Libby Kerr on 01-14-2024 WBC Auto (Urine sed) [#/Area] 1-2 [HPF] 0-4 [facility] Leukocytes [#/volume] correc rbo for nucleated erythrocytes in Blood by Automated counOrdered By: Libby Kerr on 01-14-2024 WBC corrected for nucl RBC Auto (Bld) [#/Vol] 4.8 10*3/uL 3.8-11.6 [facility] Leukocytes [#/volume] in Blo od by Automated countOrdered By: Libby Kerr on 01-14-2024 WBC (Bld) [#/Vol] 4.8 10*3/uL Normal 3.8-11.6 [facility] Comment on above: Performed By: #### C MP, CBC, ETOH #### [address] Lymphocytes [#/volume] in Bl ood by Automated countOrdered By: Libby Kerr on 01-14-2024 Lymphocytes (Bld) [#/Vol] 2.4 10*3/uL Normal 1.00-4.8 [facility] Comment on above: Performed By: #### C MP, CBC, ETOH #### [address] Lymphocytes/100 leukocytes i n Blood by Automated countOrdered By: Libby Kerr on 01-14-2024 Lymphocytes/100 WBC (Bld) 49.0 % Normal . [facility] Comment on above: Performed By: #### C MP, CBC, ETOH #### [address] MCH [Entitic mass] by Automa rob countOrdered By: Libby Kerr on 01-14-2024 MCH (RBC) [Entitic mass] 32.0 pg Normal 24.7-34.3 [facility] Comment on above: Performed By: #### C MP, CBC, ETOH #### [address] MCHC Auto (RBC) [Mass/Vol]Or dered By: Libby Kerr on 01-14-2024 MCHC (RBC) [Mass/Vol] 35.0 g/dL 32.0-35.0 [facility] MCV [Entitic volume] by Auto mated countOrdered By: Libby Kerr on 01-14-2024 MCV (RBC) [Entitic vol] 91.4 fL Normal 80-100 [facility] Comment on above: Performed By: #### C MP, CBC, ETOH #### [address] Monocyte distribution width [Entitic volume] in Blood by AutomatedOrdered By: Libby Kerr on 01-14-2024 Monocyte distribution width Auto (Bld) [Entitic vol] 17.74 % 0.00-20.00 [facility] Comment on above: For adults in ED, MD W > 20.0 may be associated with a higher risk of sepsis during the first 12 hrs of hospital admission Neutrophils [#/volume] in Bl ood by Automated countOrdered By: Libby eKrr on 01-14-2024 Neutrophils (Bld) [#/Vol] 2.2 10*3/uL Normal 1.8-7.7 [facility] Comment on above: Performed By: #### C MP, CBC, ETOH #### [facility] [address] Nitrite Test strip Ql (U)Ord ered By: Libby Kerr on 01-14-2024 Nitrite Ql (U) Negative Negative [facility] No Panel InformationOrdered By: Libby Kerr on 01-14-2024 Estimated GFR (CKD-EPI) > 60.0 mL/Min [facility] Creatinine Clearance (Chem N/A [facility] Nucleated erythrocytes [Pres ence] in Blood by Automated countOrdered By: Libby Kerr on 01-14-2024 Nucleated RBC Auto Ql (Bld) 0.1 /100{WBC} 0-0.5 [facility] Opiates [Presence] in Urine by Screen methodOrdered By: Libby Kerr on 01-14-2024 Opiates Screen Ql (U) Negative Negative [facility] Phencyclidine Screen Ql (U)O rdered By: Libby Kerr on 01-14-2024 Phencyclidine Ql (U) Negative Negative [facility] Platelet mean volume [Entiti c volume] in Blood by Automated countOrdered By: Libby Kerr on 01-14-2024 Platelet mean volume (Bld) [Entitic vol] 7.5 fL Normal 6.3-10.7 [facility] Comment on above: Performed By: #### C MP, CBC, ETOH #### [facility] [address] Platelets [#/volume] in Bloo d by Automated countOrdered By: Libby Kerr on 01-14-2024 Platelets (Bld) [#/Vol] 192 10*3/uL Normal 150-450 [facility] Comment on above: Performed By: #### C MP, CBC, ETOH #### [facility] [address] [place] [address] [place] Potassium [Moles/volume] in Serum or PlasmaOrdered By: Libby Kerr on 01-14-2024 Potassium [Moles/Vol] 3.6 mmol/L Normal 3.5-5.1 [facility] Comment on above: Performed By: #### C MP, CBC, ETOH #### [place] [address] [place] Protein [Mass/volume] in Ser um or PlasmaOrdered By: Libby Kerr on 01-14-2024 Protein [Mass/Vol] 8.2 g/dL Normal 6.4-8.9 [facility] Comment on above: Performed By: #### C MP, CBC, ETOH #### [place] [address] [place] Protein [Mass/volume] in Uri ne by Test stripOrdered By: Libby Kerr on 01-14-2024 Protein (U) [Mass/Vol] 20 mg/dL High Negative [facility] Comment on above: Order Comment: Name Collection Type:: Clean-Voided Midstream Performed By: #### C MP, CBC, ETOH #### [address] Serum globulin measurement b y calculation (mass/volume)Ordered By: Libby Kerr on 01-14-2024 Globulin (S) [Mass/Vol] 3.6 g/dL [facility] Comment on above: Performed By: #### C MP, CBC, ETOH #### [address] Serum or plasma albumin/glob ulin mass ratioOrdered By: Libby Kerr on 01-14-2024 Albumin/Globulin [Mass ratio] 1.3 {ratio} [facility] Comment on above: Performed By: #### C MP, CBC, ETOH #### [address] Serum or plasma anion gap de terminationOrdered By: Libby Kerr on 01-14-2024 Anion gap [Moles/Vol] 21.1 mmol/L High 6.0-15.0 [facility] Comment on above: Performed By: #### C MP, CBC, ETOH #### [facility] [address] Sodium [Moles/volume] in Ser um or PlasmaOrdered By: Libby Kerr on 01-14-2024 Sodium [Moles/Vol] 143 mmol/L Normal 136-145 [facility] Comment on above: Performed By: #### C MP, CBC, ETOH #### [facility] [address] [place] [address] Specific gravity Test strip (U) [Rel density]Ordered By: Libby Kerr on 01-14-2024 Specific gravity (U) [Rel density] 1.005 1.001-1.03 0 [facility] Urea nitrogen [Mass/volume] in Serum or PlasmaOrdered By: Libby Kerr on 01-14-2024 Urea nitrogen [Mass/Vol] 3 mg/dL Low 7-25 [facility] Comment on above: Performed By: #### C MP, CBC, ETOH #### [facility] [address] [place] [address] Urine appearanceOrdered By: Libby Kerr on 01-14-2024 Appearance (U) Cloudy Critically abnormal Clear [facility] Comment on above: Order Comment: Name Collection Type:: Clean-Voided Midstream Performed By: #### C MP, CBC, ETOH #### [address] Urobilinogen Test strip (U) [Mass/Vol]Ordered By: Libby Kerr on 01-14-2024 Urobilinogen (U) [Mass/Vol] Normal mg/dL Normal [facility] pH of Urine by Test stripOrd ered By: Libby Kerr on 01-14-2024 pH (U) 5.5 [pH] Normal 5.0-9.0 [facility] Comment on above: Order Comment: Name Collection Type:: Clean-Voided Midstream Performed By: #### C MP, CBC, ETOH #### [facility] [address] [place] [address] [place] URINE CULTURE, ROUTINEon Bacteria identified Cx Nom (U) Urine Culture, Routine [facility] Bacteria identified Cx Nom (U) Mixed urogenital maricel [facility] Bacteria identified Cx Nom (U) Less than 10,000 colonies/mL [facility] Bacteria identified Cx Nom (U) Performed at: [facility] Bacteria identified Cx Nom (U) [address] [place], [place] [id number] [facility] Bacteria identified Cx Nom (U) Street [employer]aire[employer] Helper: Torsten Vidal PhD, Phone: [phone] [facility] Alanine aminotransferase [En zymatic activity/volume] in Serum or PlasmaOrdered By: Avery Blanca on 08-14-2023 ALT [Catalytic activity/Vol] 29 U/L Normal 7-52 [facility] Comment on above: Order Comment: Qian brooks for Exam Benign essential hypertension Performed By: #### T SH3 wRFLX, LIPID, CBC, CMP #### [facility] [address] [place] [address] [place] Albumin [Mass/volume] in Ser um or Plasma by Bromocresol green (BCG) dye binding methoOrdered By: Avery Blanca on 08-14-2023 Albumin BCG dye [Mass/Vol] 4.8 g/dL 3.5-5.7 [facility] Alkaline phosphatase [Enzyma tic activity/volume] in Serum or PlasmaOrdered By: Avery Blanca on 08-14-2023 ALP [Catalytic activity/Vol] 82 U/L Normal 34-104 [facility] Comment on above: Order Comment: Reaso n for Exam Benign essential hypertension Performed By: #### T SH3 wRFLX, LIPID, CBC, CMP #### [facility] [address] [place] [address] [place] Aspartate aminotransferase [ Enzymatic activity/volume] in Serum or PlasmaOrdered By: Avery Blanca on 08-14-2023 AST [Catalytic activity/Vol] 78 U/L High 13-39 [facility] Comment on above: Order Comment: Reaso n for Exam Benign essential hypertension Performed By: #### T SH3 wRFLX, LIPID, CBC, CMP #### [facility] [address] [place] [address] Automated basophil %Ordered By: Avery Blanca on 08-14-2023 Basophils/100 WBC (Bld) 1.9 % Normal . [facility] Comment on above: Order Comment: Reaso n for Exam Benign essential hypertension Performed By: #### T SH3 wRFLX, LIPID, CBC, CMP #### [address] Automated basophil countOrde red By: Avery Blanca on 08-14-2023 Basophils (Bld) [#/Vol] 0.1 10*3/uL Normal 0.0-0.2 [facility] Comment on above: Order Comment: Reaso n for Exam Benign essential hypertension Result Comment: PERF ORMED BY: [place] [address] PATHOLOGIST LEARNING COORDINATOR OSMEL BLUE M.D. Performed By: #### T SH3 wRFLX, LIPID, CBC, CMP #### [address] Automated blood monocyte cou ntOrdered By: Avery Blanca on 08-14-2023 Monocytes (Bld) [#/Vol] 0.4 10*3/uL Normal 0.0-0.8 [facility] Comment on above: Order Comment: Reaso n for Exam Benign essential hypertension Performed By: #### T SH3 wRFLX, LIPID, CBC, CMP #### [facility] [address] [place] [address] Automated eosinophil %Ordere d By: Avery Blanca on 08-14-2023 Eosinophils/100 WBC (Bld) 1.0 % Normal . [facility] Comment on above: Order Comment: Reaso n for Exam Benign essential hypertension Performed By: #### T SH3 wRFLX, LIPID, CBC, CMP #### [facility] [address] [place] [address] Automated eosinophil countOr dered By: Avery Blanca on 08-14-2023 Eosinophils (Bld) [#/Vol] 0.0 10*3/uL Normal 0.0-0.45 [facility] Comment on above: Order Comment: Reaso n for Exam Benign essential hypertension Performed By: #### T SH3 wRFLX, LIPID, CBC, CMP #### [facility] [address] [place] [address] [place] Automated monocyte %Ordered By: Avery Blanca on 08-14-2023 Monocytes/100 WBC (Bld) 11.5 % Normal . [facility] Comment on above: Order Comment: Reaso n for Exam Benign essential hypertension Performed By: #### T SH3 wRFLX, LIPID, CBC, CMP #### [facility] [address] Automated neutrophil %Ordere d By: Avery Blanca on 08-14-2023 Neutrophils/100 WBC (Bld) 57.8 % Normal . [facility] Comment on above: Order Comment: Reaso n for Exam Benign essential hypertension Performed By: #### T SH3 wRFLX, LIPID, CBC, CMP #### [facility] [address] [place] [address] [place] Bilirubin.total [Mass/volume ] in Serum or PlasmaOrdered By: Avery Blanca on 08-14-2023 Bilirubin [Mass/Vol] 0.5 mg/dL Normal 0.3-1.0 [facility] Comment on above: Order Comment: Reaso n for Exam Benign essential hypertension Performed By: #### T SH3 wRFLX, LIPID, CBC, CMP #### [facility] [address] [place] [address] [place] Calcium [Mass/volume] in Ser um or PlasmaOrdered By: Avery Blanca on 08-14-2023 Calcium [Mass/Vol] 9.6 mg/dL Normal 8.6-10.3 [facility] Comment on above: Order Comment: Reaso n for Exam Benign essential hypertension Performed By: #### T SH3 wRFLX, LIPID, CBC, CMP #### [facility] [address] [place] [address] [place] Carbon dioxide, total [Moles /volume] in Serum or PlasmaOrdered By: Avery Blanca on 08-14-2023 CO2 [Moles/Vol] 24.7 mmol/L Normal 21.0-31.0 [facility] Comment on above: Order Comment: Reaso n for Exam Benign essential hypertension Performed By: #### T SH3 wRFLX, LIPID, CBC, CMP #### [facility] [address] [place] [id number] [place] Chloride [Moles/volume] in S ben or PlasmaOrdered By: Avery Blanca on 08-14-2023 Chloride [Moles/Vol] 95 mmol/L Low 98-107 [facility] Comment on above: Order Comment: Reaso n for Exam Benign essential hypertension Performed By: #### T SH3 wRFLX, LIPID, CBC, CMP #### [facility] [address] [place] [address] [place] Cholesterol [Mass/volume] in Serum or PlasmaOrdered By: Avery Blanca on 08-14-2023 Cholesterol [Mass/Vol] 333 mg/dL High 140-200 [facility] Comment on above: Chol less than 200 m g/dl low riskChol 201-239 mg/dl borderline riskChol 240 mg/dl and greater high risk Order Comment: Reaso n for Exam Benign essential hypertension Result Comment: Chol less than 200 mg/dl low risk Chol 201-239 mg/dl borderline risk Chol 240 mg/dl and greater high risk Performed By: #### T SH3 wRFLX, LIPID, CBC, CMP #### [facility] [address] [place] [address] [place] Cholesterol in LDL Calc [Mas s/Vol]Ordered By: Avery Blanca on 08-14-2023 Cholesterol in LDL [Mass/Vol] 181 mg/dL 0-100 [facility] Comment on above: LDL ATP III CLASSIFI CATIONLDL less than 100 mg/dL OptimalLDL 100-129 mg/dL Near or above optimalLDL 130-159 mg/dL Borderline highLDL 160-189 mg/dL HighLDL greater than 189 mg/dL Very high Cholesterol in VLDL Calc [Ma ss/Vol]Ordered By: Avery Blanca on 08-14-2023 Cholesterol in VLDL [Mass/Vol] 22 mg/dL [facility] Complete Blood Count Auto Di ffon 08-14-2023 Mean Corpuscular HGB Conc 34.2 g/dL Normal 32.0-35.0 [facility] Comment on above: Order Comment: Reaso n for Exam Benign essential hypertension Performed By: #### T SH3 wRFLX, LIPID, CBC, CMP #### [address] NRBC% 0.3 /100{WBC} Normal 0-0.5 [facility] Comment on above: Order Comment: Reaso n for Exam Benign essential hypertension Performed By: #### T SH3 wRFLX, LIPID, CBC, CMP #### [address] Comprehensive Metabolic Pane mike 08-14-2023 Albumin [Mass/Vol] 4.8 g/dL Normal 3.5-5.7 [facility] Comment on above: Order Comment: Reaso n for Exam Benign essential hypertension Performed By: #### T SH3 wRFLX, LIPID, CBC, CMP #### [address] GFR/1.73 sq M.predicted MDRD (S/P/Bld) [Vol rate/Area] mL/min/{1.73_m2} Normal [facility] Comment on above: Order Comment: Reaso n for Exam Benign essential hypertension Performed By: #### T SH3 wRFLX, LIPID, CBC, CMP #### [address] Creatinine [Mass/volume] in Serum or PlasmaOrdered By: Avery Blanca on 08-14-2023 Creatinine [Mass/Vol] 0.48 mg/dL Low 0.60-1.20 [facility] Comment on above: Order Comment: Reaso n for Exam Benign essential hypertension Performed By: #### T SH3 wRFLX, LIPID, CBC, CMP #### [facility] [address] [place] [address] Erythrocyte distribution wid th [Ratio] by Automated countOrdered By: Avery Blanca on 08-14-2023 Erythrocyte distribution width (RBC) [Ratio] 14.2 % Normal 11.9-15.3 [facility] Comment on above: Order Comment: Reaso n for Exam Benign essential hypertension Performed By: #### T SH3 wRFLX, LIPID, CBC, CMP #### [facility] [address] [place] [address] [place] Erythrocytes [#/volume] in B lood by Automated countOrdered By: Avery Blanca on 08-14-2023 RBC (Bld) [#/Vol] 4.03 10*6/uL Normal 3.60-5.00 [facility] Comment on above: Order Comment: Reaso n for Exam Benign essential hypertension Performed By: #### T SH3 wRFLX, LIPID, CBC, CMP #### [facility] [address] [place] [address] [place] Glucose [Mass/volume] in Ser um or PlasmaOrdered By: Avery Blanca on 08-14-2023 Glucose [Mass/Vol] 102 mg/dL High 70-100 [facility] Comment on above: ADA recommended refe rence rangeRandom Glucose Reference Range is dependent on time and content of last meal. Glucose of more than 200 mg/dL in a nonstressed, ambulatory subject supports the diagnosis of Diabetes Mellitus. Order Comment: Reaso n for Exam Benign essential hypertension Result Comment: [place] om Glucose Reference Range is dependent on time and content of last meal. Glucose of more than 200 mg/dL in a nonstressed, ambulatory subject supports the diagnosis of Diabetes Mellitus. ADA recommended reference range Performed By: #### T SH3 wRFLX, LIPID, CBC, CMP #### [facility] [address] [place] [address] [place] Hematocrit [Volume Fraction] of Blood by Automated countOrdered By: Avery Blanca on 08-14-2023 Hematocrit (Bld) [Volume fraction] 39.2 % Normal 34.0-46.4 [facility] Comment on above: Order Comment: Reaso n for Exam Benign essential hypertension Performed By: #### T SH3 wRFLX, LIPID, CBC, CMP #### [facility] [address] [place] [address] [place] Hemoglobin [Mass/volume] in BloodOrdered By: Avery Blanca on 08-14-2023 Hemoglobin (Bld) [Mass/Vol] 13.4 g/dL Normal 11.8-15.4 [facility] Comment on above: Order Comment: Reaso n for Exam Benign essential hypertension Performed By: #### T SH3 wRFLX, LIPID, CBC, CMP #### [facility] [address] Leukocytes [#/volume] correc rob for nucleated erythrocytes in Blood by Automated counOrdered By: Avery Blanca on 08-14-2023 WBC corrected for nucl RBC Auto (Bld) [#/Vol] 3.8 10*3/uL 3.8-11.6 [facility] Leukocytes [#/volume] in Blo od by Automated countOrdered By: Avery Blanca on 08-14-2023 WBC (Bld) [#/Vol] 3.8 10*3/uL Normal 3.8-11.6 [facility] Comment on above: Order Comment: Reaso n for Exam Benign essential hypertension Performed By: #### T SH3 wRFLX, LIPID, CBC, CMP #### [facility] [address] Lipid Panelon 08-14-2023 LDL Cholesterol,Calculated 181 mg/dL High 0-100 [facility] Comment on above: Order Comment: Reaso n for Exam Benign essential hypertension Result Comment: LDL ATP III CLASSIFICATION LDL less than 100 mg/dL Optimal LDL 100-129 mg/dL Near or above optimal LDL 130-159 mg/dL Borderline high LDL 160-189 mg/dL High LDL greater than 189 mg/dL Very high Performed By: #### T SH3 wRFLX, LIPID, CBC, CMP #### [facility] [address] Triglyceride w/Reflex 111 mg/dL Normal 0-149 [facility] Comment on above: [...] T SH3 wRFLX, LIPID, CBC, CMP #### [facility] [address] [place] [id number] [facility] VLDL CHOLESTEROL 22 mg/dL Normal [facility] Comment on above: Order Comment: Reaso n for Exam Benign essential hypertension Performed By: #### T SH3 wRFLX, LIPID, CBC, CMP #### [facility] [address] [place] [address] Lymphocytes [#/volume] in Bl ood by Automated countOrdered By: Avery Blanca on 08-14-2023 Lymphocytes (Bld) [#/Vol] 1.1 10*3/uL Normal 1.00-4.8 [facility] Comment on above: Order Comment: Reaso n for Exam Benign essential hypertension Performed By: #### T SH3 wRFLX, LIPID, CBC, CMP #### [facility] [address] [place] [address] Lymphocytes/100 leukocytes i n Blood by Automated countOrdered By: Avery Blanca on 08-14-2023 Lymphocytes/100 WBC (Bld) 27.8 % Normal . [facility] Comment on above: Order Comment: Reaso n for Exam Benign essential hypertension Performed By: #### T SH3 wRFLX, LIPID, CBC, CMP #### [facility] [address] [place] [address] MCH [Entitic mass] by Automa rob countOrdered By: Avery Blanca on 08-14-2023 MCH (RBC) [Entitic mass] 33.3 pg Normal 24.7-34.3 [facility] Comment on above: Order Comment: Reaso n for Exam Benign essential hypertension Performed By: #### T SH3 wRFLX, LIPID, CBC, CMP #### [facility] [address] [place] [address] MCHC Auto (RBC) [Mass/Vol]Or dered By: Avery Blanca on 08-14-2023 MCHC (RBC) [Mass/Vol] 34.2 g/dL 32.0-35.0 [facility] MCV [Entitic volume] by Auto mated countOrdered By: Avery Blanca on 08-14-2023 MCV (RBC) [Entitic vol] 97.1 fL Normal 80-100 [facility] Comment on above: Order Comment: Reaso n for Exam Benign essential hypertension Performed By: #### T SH3 wRFLX, LIPID, CBC, CMP #### [facility] [address] Neutrophils [#/volume] in Bl ood by Automated countOrdered By: Avery Blanca on 08-14-2023 Neutrophils (Bld) [#/Vol] 2.2 10*3/uL Normal 1.8-7.7 [facility] Comment on above: Order Comment: Reaso n for Exam Benign essential hypertension Performed By: #### T SH3 wRFLX, LIPID, CBC, CMP #### [facility] [address] No Panel InformationOrdered By: Avery Blanca on 08-14-2023 Estimated GFR (CKD-EPI) > 60.0 mL/Min [facility] Creatinine Clearance (Chem N/A [facility] Nucleated erythrocytes [Pres ence] in Blood by Automated countOrdered By: Avery Blanca on 08-14-2023 Nucleated RBC Auto Ql (Bld) 0.3 /100{WBC} 0-0.5 [facility] Platelet mean volume [Entiti c volume] in Blood by Automated countOrdered By: Avery Blanca on 08-14-2023 Platelet mean volume (Bld) [Entitic vol] 7.1 fL Normal 6.3-10.7 [facility] Comment on above: Order Comment: Reaso n for Exam Benign essential hypertension Performed By: #### T SH3 wRFLX, LIPID, CBC, CMP #### [facility] [address] [place] [address] Platelets [#/volume] in Bloo d by Automated countOrdered By: Avery Blanca on 08-14-2023 Platelets (Bld) [#/Vol] 201 10*3/uL Normal 150-450 [facility] Comment on above: Order Comment: Reaso n for Exam Benign essential hypertension Performed By: #### T SH3 wRFLX, LIPID, CBC, CMP #### [facility] [address] [place] [address] [place] Potassium [Moles/volume] in Serum or PlasmaOrdered By: Avery Blanca on 08-14-2023 Potassium [Moles/Vol] 4.2 mmol/L Normal 3.5-5.1 [facility] Comment on above: Order Comment: Reaso n for Exam Benign essential hypertension Performed By: #### T SH3 wRFLX, LIPID, CBC, CMP #### [facility] [address] Protein [Mass/volume] in Ser um or PlasmaOrdered By: Avery Blanca on 08-14-2023 Protein [Mass/Vol] 7.3 g/dL Normal 6.4-8.9 [facility] Comment on above: Order Comment: Reaso n for Exam Benign essential hypertension Performed By: #### T SH3 wRFLX, LIPID, CBC, CMP #### [facility] [address] Serum globulin measurement b y calculation (mass/volume)Ordered By: Avery Blanca on 08-14-2023 Globulin (S) [Mass/Vol] 2.5 g/dL Normal [facility] Comment on above: Order Comment: Reaso n for Exam Benign essential hypertension Performed By: #### T SH3 wRFLX, LIPID, CBC, CMP #### [facility] [address] [place] [address] Serum or plasma albumin/glob ulin mass ratioOrdered By: Avery Blanca on 08-14-2023 Albumin/Globulin [Mass ratio] 1.9 {ratio} [facility] Comment on above: Order Comment: Reaso n for Exam Benign essential hypertension Performed By: #### T SH3 wRFLX, LIPID, CBC, CMP #### [facility] [address] [place] [address] Serum or plasma anion gap de terminationOrdered By: Avery Blanca on 08-14-2023 Anion gap [Moles/Vol] 14.5 mmol/L Normal 6.0-15.0 [facility] Comment on above: Order Comment: Reaso n for Exam Benign essential hypertension Performed By: #### T SH3 wRFLX, LIPID, CBC, CMP #### [facility] [address] [place] [address] Serum or plasma high density lipoprotein (HDL) cholesterol measurementOrdered By: Avery Blanca on 08-14-2023 Cholesterol in HDL [Mass/Vol] 130 mg/dL High 23-92 [facility] Comment on above: HDL CHOL ATP-III CLA SSIFICATION Cardiovascular RiskHDL > or equal to 60 mg/dL LOWHDL < 40 mg/dL HIGH Order Comment: Reaso n for Exam Benign essential hypertension Result Comment: HDL CHOL ATP-III CLASSIFICATION Cardiovascular Risk HDL > or equal to 60 mg/dL LOW HDL < 40 mg/dL HIGH Performed By: #### T SH3 wRFLX, LIPID, CBC, CMP #### [facility] [address] [place] [address] Serum or plasma total choles terol/high density lipoprotein (HDL) cholesterol mass ratOrdered By: Avery Blanca on 08-14-2023 Cholesterol.total/Chol esterol in HDL [Mass ratio] 2.6 {ratio} Normal <5.0 [facility] Comment on above: Order Comment: Reaso n for Exam Benign essential hypertension Performed By: #### T SH3 wRFLX, LIPID, CBC, CMP #### [facility] [address] [place] [address] Sodium [Moles/volume] in Ser um or PlasmaOrdered By: Avery Blanca on 08-14-2023 Sodium [Moles/Vol] 130 mmol/L Low 136-145 [facility] Comment on above: Order Comment: Reaso n for Exam Benign essential hypertension Performed By: #### T SH3 wRFLX, LIPID, CBC, CMP #### [facility] [address] [place] [address] Thyroid Stim Hormone w/Rflxo n 08-14-2023 Thyroid Stim Hormone w/Rflx 1.86 u[iU]/mL Normal 0.45-5.33 [facility] Comment on above: Order Comment: Reaso n for Exam Benign essential hypertension Result Comment: PERF ORMED BY: [place] [address] PATHOLOGIST LEARNING COORDINATOR OSMEL BLUE M.D. Performed By: #### T SH3 wRFLX, LIPID, CBC, CMP #### [facility] [address] [place] [address] Thyrotropin [Units/volume] i n Serum or PlasmaOrdered By: Avery Blanca on 08-14-2023 TSH Qn 1.86 m[IU]/L 0.45-5.33 [facility] Triglyceride [Mass/volume] i n Serum or PlasmaOrdered By: Avery Blanca on 08-14-2023 Triglyceride [Mass/Vol] 111 mg/dL 0-149 [facility] Comment on above: TRIG ATP III CLASSIF ICATIONTRIG less than 150 mg/dL NormalTRIG 150-199 mg/dL Borderline highTRIG 200-500 mg/dL High TRIG greater than 500 mg/dL Very highStandard traceable to the Center for Disease Conrtrol and Prevention (CDC) test method. Urea nitrogen [Mass/volume] in Serum or PlasmaOrdered By: Avery Blanca on 08-14-2023 Urea nitrogen [Mass/Vol] 5 mg/dL Low 7-25 [facility] Comment on above: Order Comment: Reaso n for Exam Benign essential hypertension Performed By: #### T SH3 wRFLX, LIPID, CBC, CMP #### [facility] [address] HbA1c HPLC (Bld) [Mass fract ion]on 06-14-2023 HbA1c (Bld) [Mass fraction] 4.7 % [facility] No Panel Informationon 06-13 Bedside Glucose 110 [facility] A1C HEMOGLOBINon 03-27-2023 HbA1c (Bld) [Mass fraction] 10.6 % [facility] Other Glucose - FINGER STICKon Glucose [Mass/Vol] 95 mg/dL [facility] Other HbA1c (Bld) [Mass fraction]o n 03-27-2023 A1C HEMOGLOBIN [facility] Other Consent for Treatmenton 10-07 Consent for Treatment [id number]:[id number] Normal [facility] Discharge Instructionson Discharge Instructions [id number]: 127 Normal [facility] ED Clinical Summaryon 2022 ED Clinical Summary (Inserted Image. Jackie ble to display) [place] [address] ED Clinical Summary Person Information Name: SHIKHA LOERA/[place] Age: 37 Years : 1985 Sex: Female Language: Hebrew PCP: NONE, XXXX Marital Status: Visit Id: [...] 10/21/2022 08:36:13 10/21/2022 08:36:13 10/21/2022 08:36:13 ADDRESS: [address] [place] [address] [place] [id number] PHYS DOC NOTES: MEDICAL INFORMATION: Prescriptions Given: New Medications [id number], [address] [place], [place] [id number], [phone] cyclobenzaprine (cyclobenzaprine 5 mg Tab) 1 Tablets [...] Continue with No Changes Other Medications acetaminophen-hydrocodone (Romance 325 mg-5 mg oral tablet) 1 Tablets [...] worsening symptoms. DIAGNOSIS: Contusion of rib Normal [facility] ED Note-Physicianon 10-22-19 ED Note-Physician Basic [...] pain, # 21 tab(s), Refills(s) 0, Pharmacy: [id number], 167.6, cm, 10/21/22 7:13:00 EDT, Height/Length Dosing, 61.5, kg, 10/21/22 7:13:00 EDT, Weight Dosing lidocaine topical, 1 patch(es), Topical, Daily, 7 EA, Refill(s) 0, apply 12 hours on and 12 hours off daily, [id number], 167.6, cm, 10/21/22 7:13:00 EDT, Height/Length Dosing, 61.5, kg, 10/21/22 7:13:00 EDT, Weight Dosing naproxen, 500 mg = 1 tab(s), Oral, BID, PRN for pain, # 20 tab(s), Refills(s) 0, Pharmacy: [id number], 167.6, cm, 10/21/22 7:13:00 EDT, Height/Length [...] No q (more content not included)... Normal [facility] Comment on above: Result Comment: Elec [...] for lung collapse and pneumonia. ? Medicines. Zbch-bwe-eqfjubo or prescription medicines may be given to control pain. ? Injection of a numbing medicine around the nerve near your injury (nerve block). Follow these instructions at home: Medicines ? Take zfbb-jmh-oooykvc and prescription medicines only as told by your health care provider. ? Ask your health care provider if the medicine prescribed to you: ? Requires you to avoid driving or using machinery. ? Can cause constipation. You may need to take these actions to prevent or treat constipation: ? Drink enough fluid to keep your urine pale yellow. ? Take jmyk-pjc-swfpyek or prescription medicines. ? Eat foods that [...] Reviewed: 06/30/2020 Else[employer] Patient Education ? 2022 [employer] Normal [facility] ED Patient Summaryon 023 ED Patient Summary (Inserted Image. Jackie ble to display) [address] [address] Patient Discharge Instructions Person Information Name: SHIKHA LOERA Age: 37 Years Arrival Date: 10/21/2022 06:56:51 Discharge Diagnosis: Contusion of rib Primary Care Physician: NONE, XXXX Provider Information Primary Provider: Thanh Bal DO Advanced Tub Operator:None The exam and treatment you received in the Emergency Department were for an urgent problem and are not intended as complete care. It is important that you follow up with a doctor, nurse practitioner, or physician?s grooming assistant for ongoing care. If your symptoms [...] opioids can be used to help relieve dfiegzae-ko-kdzcne pain and are often prescribed following a [...] and ab (more content not included)... Normal [facility] XR Ribs Unilat 3 Views Left [...] others may be chronic. No pneumothorax. Normal [facility] AMYLASEon 03-26-2022 Amylase [Catalytic activity/Vol] 20 U/L Critically low 25-115 [facility] Comment on above: Performed By: #### L IPA, NGA, CMP #### [facility] [address] [place] [address] [address] Angela Aguero CBC W MANUAL DIFFon 03-26-20 22 ATYPICAL LYMPH # Normal [facility] Comment on above: Performed By: #### L IPA, NGA, CMP #### [facility] [address] [place] [address] [address] Angela Aguero ATYPICAL LYMPH % Normal [facility] Comment on above: Performed By: #### L IPA, NGA, CMP #### [facility] [address] [place] [address] [address] Angela Aguero BAND # 0.0 103/ul Normal 0.0-0.3 [facility] Comment on above: Performed By: #### L IPA, NGA, CMP #### [facility] [address] [place] [address] [address] Angela Aguero BAND % 0 % Normal 0-5 [facility] Comment on above: Performed By: #### L IPA, NGA, CMP #### [facility] [address] [place] [address] [address] Angela Aguero BASOM # 0.07 103/ul Normal 0.00-0.10 [facility] Comment on above: Performed By: #### L IPA NGA, CMP #### [facility] [address] [place] [address] [address] Angela Aguero BASOM % 1.0 % Normal 0.2-2.0 [facility] Comment on above: Performed By: #### L IPA, NGA, CMP #### [facility] [address] [place] [address] Dr. Angela Aguero BLAST # Normal [facility] Comment on above: Performed By: #### L IPA NGA, CMP #### [facility] [address] [place] [address] Dr. Angela Aguero BLAST % Normal [facility] Comment on above: Performed By: #### L IPA NGA, CMP #### [facility] [address] [place] [address] Dr. Angela Aguero CORRECTED WBC Normal 4.0-11.0 [facility] Comment on above: Performed By: #### L IPA, NGA, CMP #### [facility] [address] [place] [address] Dr. Angela Aguero EOS # 0.00 103/ul Normal 0.00-0.70 [facility] Comment on above: Performed By: #### L IPA NGA, CMP #### [facility] [address] [place] [address] Dr. Angela Aguero EOS% 0.0 % Critically low 0.9-7.0 [facility] Comment on above: Performed By: #### L IPA, NGA, CMP #### [facility] [address] [place] [address] Dr. Angela Aguero HCT 42.7 % Normal 36.0-48.0 [facility] Comment on above: Performed By: #### L IPA, NGA, CMP #### [facility] [address] [place] [address] Dr. Angela Aguero HGB 15.0 g/dl Normal 12.0-16.0 [facility] Comment on above: Performed By: #### L IPA, NGA, CMP #### [facility] [address] [place] [address] Dr. Angela Aguero LYMPHM # 0.28 103/ul Critically low 1.20-3.80 [facility] Comment on above: Performed By: #### L IPA, NGA, CMP #### [facility] [address] [place] [address] Dr. Angela Aguero LYMPHM% 4.0 % Critically low 20.5-60.0 [facility] Comment on above: Performed By: #### L IPA, NGA, CMP #### [facility] [address] [place] [address] Dr. Angela Aguero MCH 34.1 pg Critically high 26.7-34.0 [facility] Comment on above: Performed By: #### L IPA, NGA, CMP #### [facility] [address] [place] [address] Dr. Angela Aguero MCHC 35.1 g/dl Normal 29.9-35.2 [facility] Comment on above: Performed By: #### L IPA, NGA, CMP #### [facility] [address] [place] [address] Dr. Angela Aguero MCV 97.0 fL Normal 81.0-99.0 [facility] Comment on above: Performed By: #### L IPA, NGA, CMP #### [facility] [address] [place] [address] Dr. Angela Aguero METAMYELOCYTE # Normal [facility] Comment on above: Performed By: #### L IPA, NGA, CMP #### [facility] [address] [place] [address] Dr. Angela Aguero METAMYELOCYTE % Normal [facility] Comment on above: Performed By: #### L IPA, NGA, CMP #### [facility] [address] [place] [address] Dr. Angela Aguero MONOM# 0.21 103/ul Critically low 0.30-0.80 [facility] Comment on above: Performed By: #### L IPA, NGA, CMP #### [facility] [address] [address] [address] Angela Aguero MONOM% 3.0 % Normal 1.7-12.0 [facility] Comment on above: Performed By: #### L IPA, NGA, CMP #### [facility] [address] [address] [address] Angela Aguero MPV 9.4 fL Critically low 9.5-13.5 [facility] Comment on above: Performed By: #### L IPA, NGA, CMP #### [facility] [address] [address] [address] Angela Aguero MYELOCYTE # Normal [facility] Comment on above: Performed By: #### L IPA, NGA, CMP #### [facility] [address] [place] [address] Dr. Angela Aguero MYELOCYTE % Normal [facility] Comment on above: Performed By: #### L IPA, NGA, CMP #### [facility] [address] [place] [address] Dr. Angela Aguero NRBC Normal [facility] Comment on above: Performed By: #### L IPA, NGA, CMP #### [facility] [address] [address] [address] Angela Aguero PLT 252 103/ul Normal 150-450 [facility] Comment on above: Performed By: #### L IPA, NGA, CMP #### [facility] [address] [address] [address] Angela Aguero RBC 4.40 106/ul Normal 4.20-5.40 [facility] Comment on above: Performed By: #### L IPA, NGA, CMP #### [facility] [address] [place] [address] Dr. Angela Aguero RDW 11.3 % Normal 11.0-15.0 [facility] Comment on above: Performed By: #### L IPA, NGA, CMP #### [facility] [address] [address] [address] Angela Aguero SEG # 6.44 103/ul Normal 1.40-6.50 [facility] Comment on above: Performed By: #### L NGA SMITH, CMP #### [facility] [address] [place] [address] Dr. Angela Aguero SEG % 92.0 % Critically high 43.0-75.0 [facility] Comment on above: Performed By: #### L NGA SMITH, CMP #### [facility] [address] [place] [address] Dr. Angela Aguero WBC 7.0 103/ul Normal 4.0-11.0 [facility] Comment on above: Performed By: #### L NGA SMITH, CMP #### [facility] [address] [place] [address] Dr. Angela Aguero ETHANOL (BLD ALC)on 03-26-20 ALC NOTE NOTE: 80 mg/dl is th e legal limit for a blood alcohol level Normal [facility] Comment on above: Performed By: #### L NGA SMITH, CMP #### [facility] [address] [place] [address] Dr. Angela Aguero Ethanol [Mass/Vol] mg/dL Normal [facility] Comment on above: Performed By: #### L NGA SMITH, CMP #### [facility] [address] [place] [address] Dr. Angela Aguero LIPASEon 03-26-2022 Lipase [Catalytic activity/Vol] 43.0 U/L Critically low 73.0-393.0 [facility] Comment on above: Performed By: #### L NGA SMITH, CMP #### [facility] [address] [place] [address] Dr. Angela Aguero PROF 14(COMP METB)on Albumin [Mass/Vol] 3.9 g/dL Normal 3.4-5.0 [facility] Comment on above: Performed By: #### L NGA SMITH, CMP #### [facility] [address] [place] [address] Dr. Angela Aguero Albumin/Globulin [Mass ratio] 0.9 {ratio} Normal [facility] Comment on above: Performed By: #### L IPA, NGA, CMP #### [facility] [address] [address] [address] Angela Aguero ALP [Catalytic activity/Vol] 129 U/L Critically high 46-116 [facility] Comment on above: Performed By: #### L IPA, NGA, CMP #### [facility] [address] [address] [address] Angela Aguero ALT [Catalytic activity/Vol] 143 U/L Critically high 14-59 [facility] Comment on above: Performed By: #### L IPA, NGA, CMP #### [facility] [address] [address] [address] Angela Aguero Anion gap [Moles/Vol] 16.4 mmol/L Normal [facility] Comment on above: Performed By: #### L IPA, NGA, CMP #### [facility] [address] [address] [address] Angela Aguero AST [Catalytic activity/Vol] 306 U/L Critically high 15-37 [facility] Comment on above: Performed By: #### L IPA, NGA, CMP #### [facility] [address] [address] [address] Angela Aguero Bilirubin [Mass/Vol] 1.7 mg/dL Critically high 0.2-1.0 [facility] Comment on above: Performed By: #### L IPA, NGA, CMP #### [facility] [address] [address] [address] Angela Aguero Calcium [Mass/Vol] 9.4 mg/dL Normal 8.5-10.1 [facility] Comment on above: Performed By: #### L IPA, NGA, CMP #### [facility] [address] [address] [address] Angela Aguero Chloride [Moles/Vol] 99 mmol/L Normal 98-107 [facility] Comment on above: Performed By: #### L IPA, NGA, CMP #### [facility] [address] [address] [address] Angela Aguero CO2 [Moles/Vol] 25.9 mmol/L Normal 21.0-32.0 [facility] Comment on above: Performed By: #### L IPA NGA, CMP #### [facility] [address] [place] [address] Dr. Angela Aguero Creatinine [Mass/Vol] 0.82 mg/dL Normal 0.55-1.02 [facility] Comment on above: Performed By: #### L IPA, NGA, CMP #### [facility] [address] [place] [address] Dr. Angela Aguero EGFR-AF LATVIAN >60 Normal >=60 [facility] Comment on above: Performed By: #### L IPA, NGA, CMP #### [facility] [address] [place] [address] Dr. Angela Aguero EGFR-NON AF LATVIAN >60 Normal >=60 [facility] Comment on above: Performed By: #### L IPA NGA, CMP #### [facility] [address] [place] [address] Dr. Angela Aguero Globulin (S) [Mass/Vol] 4.4 g/dL Normal [facility] Comment on above: Performed By: #### L IPA NGA, CMP #### [facility] [address] [place] [address] Dr. Angela Aguero Glucose [Mass/Vol] 207 mg/dL Critically high 74-106 [facility] Comment on above: Performed By: #### L IPA NGA, CMP #### [facility] [address] [place] [address] Dr. Angela Aguero Potassium [Moles/Vol] 3.3 mmol/L Critically low 3.5-5.1 [facility] Comment on above: Performed By: #### L IPA NGA, CMP #### [facility] [address] [place] [address] Dr. Angela Aguero Protein [Mass/Vol] 8.3 g/dL Critically high 6.4-8.2 [facility] Comment on above: Performed By: #### L IPA, NGA, CMP #### [facility] [address] [place] [address] Dr. Angela Aguero Sodium [Moles/Vol] 138 mmol/L Normal 136-145 [facility] Comment on above: Performed By: #### L NGA SMITH, CMP #### [facility] [id number] Angela Aguero Urea nitrogen [Mass/Vol] 5.0 mg/dL Critically low 7.0-18.0 [facility] Comment on above: Performed By: #### L NAG SMITH, CMP #### [facility] [id number] Angela Aguero Urea nitrogen/Creatinine [Mass ratio] 6.1 mg/mg Normal [facility] Comment on above: Performed By: #### L NGA SMITH, CMP #### [facility] [address] [address] [address] Angela Aguero Coding Summary.on 02-06-2022 Coding Summary. CD:[id number] Gh0bW w+PGhlYWQ+LT1JMMIzG31zqIV sxZ0SY9rKDM6OVEDLLYONXX1H BE3chUY4PStwK1UmkdXh VfniaJGdPZ42GAr1CBR4bJpvG IsvoF7wrEAiL9t5BgRlYA03aF 80WHmnKJXzJkO7AuEcatlntLN y B1ycPcZgvSPgJhm+PHRhYmxlI HdpZHRoPScxMDAlJyBzdHlsZT 0kFx8bNUDvBBFizCmtgVLsZvH j d2doFXXmDOeaLU4qpWwdU8Esz OT4UMIbv6u6Tp69mUX+PHRkIH F1lVfuOCpsq037DbXge3ooTGT 3 aYPiPZdrCPY3Y79ae1M4TFRvA DPkTBU1zBW1vJ2muDlcxyvgY7 LzmONpJdR2HFC6xNFdzN5fhMl n grgdtJ7iEjq+L89THJ5TOMSWR M8ONjn4A6OfBkxhdXB+PC90YW YhCL75iEBqePNxj6cidIv1KuA w HWPcYEX7aOvmLHiaq8YtUQDqI 12ojBPan5A5YCTjtSmeqTZwRr UjqQZ5eD6pBMxebhlgb8cellp n Fyjzg1wydi39nI05B12qYVwmK CPhCOM9TLSiQZFsbFvsjo0rwU 9wIi8+ZGvze4nlt0jylFu7VbF w HDJujiVqxXqeKNF8j5EsUg22M 4EnyForg7GyNoq3yf48wSGlg4 W0hBO2EFyaIHJggR3bYJbpLaU 6 KIRrGlIgxT54aTLzWYmoWx7hf DdynTrzSP1xESNvhdimUVMjrJ 5iFRVtxEPnvQnvWX0kYAJlolt m f143DzSlIKR5GXThoEIkT5Wvr M8zVrKxLFWvJBZjI4OimMBqAZ esV712MFjzArG3FAZwpgFuN6U s MECblJfhSeS6d1N9Kx2Mo4Vze lbnUMM4TTcaDEVmCkPxFqFrVr D6C5ZhHrb0LJNnaMfdAV8yQ0I h SHJfrljqcboobNX3LSLbSGNtk A41tDMbZCwuCn0dq9T0f350DG AxBLSmrE77Mo4okSbySSAdzEV U bP7hhdlmx5qhhzzjEiPtIAUxC Hu7UJz8USOhlWdlScFiNTB5Qi D3YLE6rBRhkE8ypYcylrivqY4 w Oyc+E05oaY2sLGH7OHM7pvinA PTwuxVoML07UP70S7PsSelsjT FibGU+PHKkvtNjgKvlQM9ePeR j s6tpe4FoCEmhC7MgYDZsKTccF yg7WZYwOOB9aDI6nJ7cUXGjMA rne1M9iXX2H2LhicUcvx2ki5l s UHIeSCcpJ34pwHJbl3V4UEBbq BL7EKCyoUlmPcAtzK15Yde+PG PdlUidy3OeCcudy0kkj0zoiKu 9 PuSuZUMnycBitAmvHKV4n8TmL u87L52aDHwwESYiBKXzAAVzRL XcjRfedd2xgZ1dPk8+PGNvbCB 3 uEX0oV0yVBVeQmJ6TIwlU954Q xDqmIGcFpfoo7bdy2aykTb5Hz UbOYEvpfQzmPapGOV1l9CyWh7 8 E22rULxlITJoGYIsELDnGGJpc Fhwdi7qqK3jHd3+GG3kj1yipz 48aY79hXZ+DXBeVFN4yFkhOQs w FPQvuQ1yBOldMlR3PPFwIgLxu J64aKPiPDveAi1mqTaurCbbYY 4gUKYzmrlfp454JhWml4qjRIT w wSAkKVttFRE3R87te1U3KUAhF CGxTIS5fVX0zE8rnByjycbghC VykYudylLevGucYWuhUYdqC67 6 IHRvcDsnPlBhdGllbnQgTmFtZ Br2D7XoBlf7KEDgfQkxRH1zaR EiEMjkXa8rwTqxpRagVC8xPAH p wfmwk343ZxTdg9qgWLKvaMHsX BhyJDH3A07zc6V7XRIpCCEeEV Y4kQP0yW1bzAgreorvqDTylJs g ogScyHvdFDwjNJljN868NACiq NmrHtRnjbVeCWCulSD8UG36HN 05cUXma1Q2rST6R0VoYCAeqgl t xmitpCT0NPWuOPCxsM50Ja3oe UaxIz6nKCYtBIQ6GQZpmEPwB4 AucY4iPoTxXYZtGQGyB4VnmYY t ATqpB053OOypAoZ9VEPhmwPkH 5NpJNAbyUvpCzQ9c1U7Oc6TE6 Y5QV20AQ91pJYcw2B6nQZ3E0J h GGCmvmbvzoicwQH5UPTpLKXli Y34Hl6fpAhxQx8tWFDsVDF2YU LlrMYlV1UqpP1kWcUySJRvWFJ w B8ShiXWwUQtcS680LEtdImA0X QOmbbJmL0BiJJXzjWgtQdP4l8 F3Vg2GCBv0AZ44NY34bWTdk5Y 5 dST8M1AuNNDfxzlemxraiVQ9O NLkIVIokJ11Zk4xlKlzBn5lKD FcTPM3WREuvYRaT4YrxD5iNpR j PIChVYBlK1FhgPUjNQayT354T FvwDcB5BZSmoxKqZ2WzGVGiqU snLeG7o9Z4Ba2NFPPgUQ70DTM 5 zZR0WE08KF43U8XmQziumVVdq +PHRhYmxlIHdpZHRoPScxMD TsBjLmdUwsYY4mQk9jLQOoQRS v lLvmcQWfPdVgc9aeVPVeQQgfC J3efXfmI3HonIX2FEBbu4z5Wa 16G18dE4BbiJM+VHVccMK6dTC 0 gG0oJeEvAmC9LNshN405OtOfw KGjLcpub8tua9zxnEq7WiR0IU KrlkYgzRanIJD5e5IkJa41W96 s IHdpZHRoPSIxNSUiIHZhbGlnb x8wtH5eRu0+ZQCbtSQ6rYT4tO 1hXsYrHoP5QBvoX710UcAzrCR v Ozurn3zvk0pwwQz0VyOwXAIwc yKkwYykXXD9l1MvKc79O1VcsA tcf6IyRnk5gt68iOPiq6S4iIS 9 H0SnXZPtuegniDRczPqdFI7aF NJkdhbkYXCqyV5vKDMyZ5c5Rf SyMkZ1FMnjF6CzxdK9SNBpsSF g XJltHWP9S87lu5Q4DWIqGTAlB VN8lOL5uD2zbOmkbxanvFThwI oblnJdbPisKBatFWrbS012FOB v sDqtIIOjaE5tMCObpSNouRykW R0lAIXtuozmFw8NHPhABQQNQY uzBZ6ROpWCBV10HO78oGFje3T 5 sZF2Y0FoXYNmifqphsgqgPH8Y DDiRHSqdL37fSIjXWmkBg8re7 Z7x141IUEgSQZyuT54Nj4dpAl g RBBrfOYAeV2ydmfql7jufxduD jMvAMLpNOa4XQx6NHBfbHrtJu AqLQQ1DaA1CVC7rIEkyR7yrBb n yvtfpA2kQna+INAxPZjyVKu6J TwvdGQ+PLYrFQH7nLwoICmhII YmaD3aNAOrB8b5IvRaCqE6OXh u X7YwHPTeggyxHy60lK5kBnFiK mU3JAfpS5NmpnP7GIVmdGXxRV smZUJ5L39vf9S2CRDmPIVhVHE 7 nVK3eO3jdTdksyhpwZCouUree cQvuGriTAtdQIalH580KXWndT zsGaL1YQhrWHYpNX98PN04rZK g i1D9qRE4N1XmKJMkwicdcixyp AY1XLBrVDPdyJ38jDRmSRllPm 5pn1M1u534RPKeORVnoV31Vr3 u wQqnJUKkkNECcY2plqixy4uuf qvbKgTyDCUrAXe0NAm8YBPotB rjJnXoPVN1YnK9UIZ5dKKhhH4 h dFpaghkurS4hDub+RmVtYWxlP H15YO67rPFbt7Z6oXO6U6YiXS EdcmytyyplcOY2IPOgLSFrkM4 7 aWVxKJexGo6cz2B3t246HMPaA JZscY80Ql2bgUizKHEouWXTwS 1tmyesb1ylyiniTzQdECTmPBu 0 BGj7TMGmfGdjSzVsGUG5DdM3S FN4cYPgpJ2bpElrkpcidU4jTq c+VD4zjureoqQ9QU47TC16X6Z y PjwvdGFibGU+PHRhYmxlIHdpZ BZuHPooDPDdWqCxtNjfZB8hQo 3zYSCnLBQbdWzwjHYtOfUsw4h s NJTaDUexAE7fpSjiH0TarRR2H YSpc0x0Up82M36oN8IfyDE+PG CjgBV4eNO2pF0uNjPxNzA7QHu p M755AjUmqAWtHtrsc9jvt6qjk Tq2JxRsMMAabaNrjLevLKY9e6 MqOk96J55rKBmjCNUoUQUhHLE i TBYzoFfqbf8zqL4aMy4+PGNvb BB1bGW8xW1cGeIhZeL7XAbyO3 09KrCmfLBuLfeoR98oO5BqiGY + QUBtJdm5GCWtnHjjOW2pqBSeN ShxDu4nGIJ6PxReNjGuDDpuZ2 GoSJUsvddisnsoxPJ0RMLjWKR w oN38Cx6xoMudUs0yLJZwHSK9I UQfzBOfL7WvaD9dQkLkWMEpIQ LfP6ZdyZLgEWcgJ357WWznByW 7 BQGxpjWlX5HdWHRckJgfOjK3j 4P7Db2IqCracBBeWN9qDkVjDQ q3Z0LyBsp2WBKsoNqcUD9vaTW k RVnkYs0lqLadxRaaVK9vNEIco hagl663ToXjt4vjAFVxvEVvXE eyQVZ8P91dz5N8XNChHIPvJNF 7 pTC9bK2wvMxvfqyssGGwfWhdr cHtmBdsTCatWDrtU913NUVggE slGwKHVrc3K9KqHki8VFTvbEg s DS3uuDQcBEvxWc5bkGkbxBeeE N0iJMAenlkpo507CjAjz1lnZJ GxcOSpILawNDG5H85fs8A4CIG w ATEoGCM0yPI0tA4bnHeaqacns GVmdDsgdmVydGljYWwtYWxpZ2 14VVKwiRwxOf8PAix6Q2XhPvd 0 MGOjaByhRR5jmAEjQFchMj2hc BlrmSkoQJ5sHSLcgcowx070Qz Dbc6zyWILmqVXcMBsgVZQ8N55 s z7U8XIJvAHUnKQY6kPR4uX9fa GlnbjogbGVmdDsgdmVydGljYW duQJjjJ726ELGuwQktGqJbxFL y OjwvdGQ+GN01jl20L7YhUwgoE de5THNmHWD7bBQ4yF2tZCXjUL qbn5C8fES9E5ZzzfSfaf9cm8s s YXBz (more content not included)... [facility] C Urineon 02-03-2022 Bacteria identified Cx [...] I=Intermediate, ESBL=Extended spectrum beta-lactamase, R=Resistant, TFG=Thymidine-dependent strain, LA=Beta-lactamase positive, CHARLINE=mcg/m;(mg/L), S*=Predicted susceptible interp, R*=Predicted resistant [...] Locations R1: This test was performed at: [facility], [address] [place] [address], [address] , , [facility] Comment on above: Performed By: #### 2 [id number], [id number] ####[place] [address] Auto Diffon 02-02-2022 Basophils/100 WBC (Bld) 0.9 % Normal 0.0-2.0 [facility] Comment on above: Order Comment: Order Added by Discern Expert. Performed By: #### 2 [id number], 5996078, 5344150, 7755214, [id number], [id number] ####[address] [place] [address] Basophils/Leukocytes Auto (Bld) [Pure # fraction] 0.1 E9/L Normal 0.0-0.2 [facility] Comment on above: Order Comment: Order Added by Discern Expert. Performed By: #### 2 562529, 3855360, 6493492, 8286784, [id number], 7811009 ####[address] [place] [address] Eosinophils/100 WBC (Bld) 0.6 % Normal 0.0-8.0 [facility] Comment on above: Order Comment: Order Added by Discern Expert. Performed By: #### 2 056023, 5049620, 9712588, 6827855, 42734126, 2945779 ####[address] [address] Eosinophils/Leukocytes Auto (Bld) [Pure # fraction] 0.0 E9/L Normal 0.0-0.5 [facility] Comment on above: Order Comment: Order Added by Discern Expert. Performed By: #### 2 366919, 9489769, 1270045, 9538311, 31401284, 3961726 ####[address] [place] [address] Lymphocytes/100 WBC (Bld) 22.1 % Normal 14.0-50.0 [facility] Comment on above: Order Comment: Order Added by Discern Expert. Performed By: #### 2 284029, 9360738, 6415921, 1665026, 09493214, 3116849 ####[address] [place] [address] Lymphocytes/Leukocytes Auto (Bld) [Pure # fraction] 1.3 E9/L Normal 1.0-4.0 [facility] Comment on above: Order Comment: Order Added by Discern Expert. Performed By: #### 2 767520, 4745327, 9464202, 8976470, 63743820, 7561857 ####[facility] [address] [place] [address] Monocytes/100 WBC (Bld) 9.5 % Normal 4.0-14.0 [facility] Comment on above: Order Comment: Order Added by Discern Expert. Performed By: #### 2 808294, 0288271, 3319205, 4973979, 46760775, 1626113 ####[address] [place] [address] Monocytes/Leukocytes Auto (Bld) [Pure # fraction] 0.6 E9/L Normal 0.2-1.0 [facility] Comment on above: Order Comment: Order Added by Discern Expert. Performed By: #### 2 451830, 9355577, 4790530, 5801656, 29531733, 4437129 ####[facility] [address] [place] [address] Neutrophils/100 WBC (Bld) 66.9 % Normal 36.0-75.0 [facility] Comment on above: Order Comment: Order Added by Discern Expert. Performed By: #### 2 237542, 7476940, 7551453, 1264247, 28526284, 7981094 ####[address] [place] [address] Neutrophils/Leukocytes Auto (Bld) [Pure # fraction] 4.0 E9/L Normal 2.0-7.5 [facility] Comment on above: Order Comment: Order Added by Discern Expert. Performed By: #### 2 836833, 2311481, 4429977, 0718563, 56624586, 5943434 ####[facility] [address] [place] [address] B hCG Qualon 02-02-2022 Beta hCG Ql Negative Normal [facility] Comment on above: Performed By: #### 2 [id number] ####[facility] [address] [place] [address] BMPon 02-02-2022 Anion gap [Moles/Vol] 21 mmol/L High 6-16 [facility] Comment on above: Performed By: #### 2 035298, 2823485, 4530171, 4708529, 89194801, 0514697 ####[facility] [address] [place] [address] Calcium [Mass/Vol] 9.2 mg/dL Normal 8.9-11.1 [facility] Comment on above: Performed By: #### 2 770027, 4844157, 5723555, 2588277, 14248460, 3516489 ####[facility] [address] [place] [address] Chloride [Moles/Vol] 100 mmol/L Low 101-111 [facility] Comment on above: Performed By: #### 2 581636, 9764425, 1487870, 3219757, 74578051, 3084901 ####[facility] [address] [place] [address] CO2 [Moles/Vol] 20 mmol/L Low 21-31 [facility] Comment on above: Performed By: #### 2 728674, 4497629, 3127318, 0381879, 91714234, 5289432 ####[facility] [address] [place] [address] Creatinine [Mass/Vol] 0.7 mg/dL Normal 0.5-1.3 [facility] Comment on above: Performed By: #### 2 266232, 0662321, 5732126, 5479923, 48726846, 6169231 ####[facility] [address] [place] [address] Glucose [Mass/Vol] 176 mg/dL Normal 55-199 [facility] Comment on above: Result Comment: If t his glucose result represents a fasting glucose, interpretation should refer to the following reference range: 55-99 mg/dL Performed By: #### 2 721792, 8394315, 3120769, 3642366, 31971455, 5466109 ####[facility] [address] [place] [address] Potassium [Moles/Vol] 3.4 mmol/L Low 3.5-5.3 [facility] Comment on above: Performed By: #### 2 625687, 6300130, 5968689, 1516119, 75899631, 6335648 ####[facility] [address] [place] [address] Sodium [Moles/Vol] 138 mmol/L Normal 135-145 [facility] Comment on above: Performed By: #### 2 694641, 6096204, 8781072, 8839863, 89330659, 5563047 ####[facility] [address] [place] [address] Urea nitrogen [Mass/Vol] mg/dL Normal 5-21 [facility] Comment on above: Performed By: #### 2 639861, 7058354, 2523331, 3312155, 63546759, 7389758 ####[facility] [address] [place] [address] Urea nitrogen/Creatinine [Mass ratio] UTC Abnormal 10-20 [facility] Comment on above: Result Comment: Resu lt verified by Discern Rule. Performed result UTC (Unable to Calculate) was sent as an Alpha code due the inability to calculate a valid numeric value. Performed By: #### 2 722297, 6503684, 8662221, 1071057, 68842553, 3160246 ####[facility] [address] [place] [address] CBC w/ Auto Diffon Erythrocyte distribution width (RBC) [Ratio] 13.6 % Normal 10.9-14.2 [facility] Comment on above: Performed By: #### 2 675131, 1447251, 2850604, 1518896, 86468453, 5016911 ####[facility] [address] [place] [address] Hematocrit (Bld) [Volume fraction] 44.9 % Normal 34.0-46.0 [facility] Comment on above: Performed By: #### 2 750556, 4988408, 8793160, 4052954, 35372757, 7508547 ####[facility] [address] [place] [address] Hemoglobin (Bld) [Mass/Vol] 15.6 g/dL Normal 12.0-16.0 [facility] Comment on above: Performed By: #### 2 207622, 1516854, 8635021, 4107675, 26021258, 6441101 ####[place] [id number] MCH (RBC) [Entitic mass] 34.3 pg High 27.0-34.0 [facility] Comment on above: Performed By: #### 2 882199, 9273224, 8379710, 9799360, 55127635, 1036977 ####[place] [id number] MCHC (RBC) [Mass/Vol] 34.7 g/dL Normal 31.4-36.0 [facility] Comment on above: Performed By: #### 2 590463, 7862405, 5379657, 8239614, 09209612, 6719630 ####[place] [id number] MCV (RBC) [Entitic vol] 98.8 fL Normal 80.0-100.0 [facility] Comment on above: Performed By: #### 2 816940, 6465590, 9171140, 1072231, 71318806, 6509307 ####[place] [address] [place] [address] Platelet mean volume (Bld) [Entitic vol] 7.5 fL Normal 6.4-10.8 [facility] Comment on above: Performed By: #### 2 592433, 2174140, 8813063, 0544507, 32559730, 2375877 ####[facility] [address] [place] [address] Platelets (Bld) [#/Vol] 199.0 E9/L Normal 150.0-500. 0 [facility] Comment on above: Performed By: #### 2 794803, 8368577, 6227283, 4728242, 79030552, 9548852 ####[facility] [address] [place] [address] RBC (Bld) [#/Vol] 4.6 E12/L Normal 4.3-5.9 [facility] Comment on above: Performed By: #### 2 465637, 8916128, 3123759, 6747912, 84855435, 1463463 ####[facility] [address] [place] [address] WBC corrected for nucl RBC Auto (Bld) [#/Vol] 6.0 E9/L Normal 4.0-11.0 [facility] Comment on above: Performed By: #### 2 513978, 3283274, 6828580, 5353583, 75680340, 1573027 ####[facility] [address] [place] [address] CT Abdomen/Pelvis w/ Contras ton 02-02-2022 CT [...] 300 Contrast amount in ml's: 100 Normal [facility] Discharge Instructionson Discharge Instructions [id number]:12 [id number] Normal [facility] ED Clinical Summaryon 2021 ED Clinical Summary (Inserted Image. Jackie ble to display) [place] [id number] ED Clinical Summary Person Information Name: SHIKHA LOERA Melly/[facility] Age: 36 Years : 1985 Sex: Female Language: Hebrew PCP: AVERY BLANCA CNP Marital Status: Visit [...] 02/02/2022 00:18:27 02/02/2022 00:18:27 02/02/2022 00:18:27 ADDRESS: [address] [place] [phone] PHYS DOC NOTES: MEDICAL INFORMATION: Prescriptions Given: New Medications Printed Prescriptions acetaminophen-hydrocodone (Romance 325 mg-5 mg oral tablet) 1 Tablets By Mouth every 6 hours as needed for pain. Refills: 0. sulfamethoxazole-trimetho prim (Bactrim DS 800 mg-160 mg Tab) 1 Tablets By Mouth 2 times a day for 10 Days. Refills: 0. PATIENT EDUCATION INFORMATION: Instructions: Pyelonephritis, Adult, Bltd-fj-Vyts Follow up: With: Address: When: AVERY BLANCA [address] [facility] [address] [place] [address] [phone] Business (1) In 3 days 02/05/2022 Comments: You can use the pain medication every 6 hours as needed for pain, take the Bactrim twice daily until you have completed the course. Please follow-up with your primary care doctor the next 2 to 3 days. Please return to the ED for any new or worsening symptoms. DIAGNOSIS: Acute pyelonephritis Normal [facility] ED Note-Physicianon 02-03-20 22 ED Note-Physician [...] Crohn's disease sees a GI doctor at [facility] who she is unsure of who this [...] home. Is given a short course of Romance to go home with. She is given [...] hydroxide/Mg hydroxide/simethicone (more content not included)... Normal [facility] Comment on above: Result Comment: Elec [...] you start to feel better. ? Take kycx-eje-ildsdlc and prescription medicines only as told by [...] 05/03/2005 Document Revised: 01/28/2019 Document Reviewed: 01/28/2019 [employer] Patient Education ? 2020 [employer] Normal [facility] ED Patient Summaryon 022 ED Patient Summary (Inserted Image. Jackie ble to display) [place] [id number] Patient Discharge Instructions Person Information Name: SHIKHA LOERA Age: 36 Years Arrival Date: 02/01/2022 21:23:41 Discharge Diagnosis: Acute pyelonephritis Primary Care Physician: AVERY BLANCA CNP Provider Information Primary Provider: Judith Mock DO Advanced Tub Operator:None The exam and treatment you received in the Emergency Department were for an urgent problem and are not intended as complete care. It is important that you follow up with a doctor, nurse practitioner, or physician?s grooming assistant for ongoing care. If your symptoms [...] With: Address: When: AVERY BLANCA [address] [facility] [address] [place] [address] [phone] Business (1) In 3 days 02/05/2022 Comments: [...] participating provider. Patient Education Materials: Pyelonephritis, Adult, Lzjo-dt-Kdnd A MESSAGE TO ALL PATIENTS REGARDING OPIOIDS PRESCRIPTION OPIOIDS: WHAT YOU NEED TO KNOW Prescription opioids can be used to help relieve ydabubhy-aw-eihqlr pain and are often prescribed following a [...] (www.fda.gov/Drugs/Resour cesForYou). (more content not included)... Normal [facility] Hep Func Panelon 02-02-2022 Albumin [Mass/Vol] 4.5 g/dL Normal 3.3-5.0 [facility] Comment on above: Performed By: #### 2 798895, 6904513, 3477836, 6568373, 67746299, 8954653 ####[facility] [address] [place] [address] Albumin/Globulin (S) [Mass conc ratio] 1.1 Normal 1.1-2.2 [facility] Comment on above: Performed By: #### 2 896685, 0994987, 2058723, 6383522, 44850236, 5118562 ####[place] [address] [place] [address] ALP [Catalytic activity/Vol] 98 Int._Unit/L Normal 21-98 [facility] Comment on above: Performed By: #### 2 977656, 4501838, 2433494, 3178977, 75214327, 3245546 ####[address] [address] ALT No additional P-5'-P [Catalytic activity/Vol] 57 Int._Unit/L High 6-46 [facility] Comment on above: Performed By: #### 2 407761, 0860361, 0099571, 1203508, 00837559, 0553105 ####[address] [address] AST [Catalytic activity/Vol] 157 Int._Unit/L High 5-43 [facility] Comment on above: Performed By: #### 2 276661, 3899937, 7184904, 0380349, 00211702, 5040653 ####[address] [address] Bilirubin [Mass/Vol] 1.4 mg/dL High 0.0-1.1 [facility] Comment on above: Performed By: #### 2 617762, 5028862, 4757682, 9375695, 58291449, 7700935 ####[address] [address] Bilirubin.direct [Mass/Vol] 0.5 mg/dL High 0.1-0.4 [facility] Comment on above: Performed By: #### 2 037485, 0467689, 9287162, 5314327, 81854062, 4106342 ####[facility] [address] [place] [address] Bilirubin.indirect [Mass or moles/Vol] 0.9 mg/dL Normal 0.1-0.9 [facility] Comment on above: Performed By: #### 2 425852, 2699682, 6768754, 3213302, 25088525, 7001108 ####[facility] [address] [place] [address] Globulin (S) [Mass/Vol] 4.1 g/dL High 1.4-4.0 [facility] Comment on above: Performed By: #### 2 254994, 7154982, 1351904, 8332555, 09072163, 3048885 ####[facility] [address] [place] [address] Protein [Mass/Vol] 8.6 g/dL High 6.0-7.8 [facility] Comment on above: Performed By: #### 2 095269, 3265438, 8833979, 5960499, 26151008, 9980056 ####[place] [address] [place] [address] Lipase Levelon 02-02-2022 Lipase [Catalytic activity/Vol] 57 U/L Normal 13-58 [facility] Comment on above: Performed By: #### 2 195499, 0021127, 1082013, 9532433, 64516888, 0441384 ####[facility] [address] [place] [address] Prescriptions/Work Noteson 1 Prescriptions/Work Notes [id number]:12 7 Normal [facility] RAD - Preliminary Cat Scan R eporton 02-02-2022 RAD - Preliminary Cat Scan Report [id number]:12 7 Normal [facility] UA With Cult Reflexon 2021 Bacteria LM Ql (Urine sed) 2+ /HPF Abnormal Trace [facility] Comment on above: Performed By: #### 2 482399, 86784533 ####[facility] [address] [place] [address] Bilirubin Ql (U) Negative Normal Negative [facility] Comment on above: Performed By: #### 2 042826, 08713870 ####[facility] [address] [place] [address] Clarity (U) SL CLOUDY Invalid Interpretation Code [facility] Comment on above: Performed By: #### 2 777653, 57207702 ####[facility] [address] [place] [address] Color (U) YELLOW Normal Yellow [facility] Comment on above: Performed By: #### 2 568456, 99245583 ####[facility] [address] [place] [address] Epithelial cells.squamous LM.HPF (Urine sed) [#/Area] 3-4 Normal 0-2 [facility] Comment on above: Performed By: #### 2 998836, 68441942 ####[facility] [address] [place] [address] Glucose Test strip (U) [Mass/Vol] Negative Normal Negative [facility] Comment on above: Performed By: #### 2 586415, 10635851 ####[facility] [address] [place] [address] Hemoglobin Ql (U) 1+ Abnormal Negative [facility] Comment on above: Performed By: #### 2 512420, 75353696 ####[facility] [address] [place] [address] Ketones (U) [Mass/Vol] Negative Normal Negative [facility] Comment on above: Performed By: #### 2 911321, 67729069 ####[facility] [address] [place] [address] [place].plasma/[place] .RBC (Bld) [Mass ratio] 4-20 Normal 0-3 [facility] Comment on above: Performed By: #### 2 453062, 07432462 ####[facility] [address] [place] [address] Nitrite Ql (U) Negative Normal Negative [facility] Comment on above: Performed By: #### 2 182854, 14564164 ####[facility] [address] [place] [address] pH (U) 5.0 [pH] Invalid Interpretation Code 5.0-9.0 [facility] Comment on above: Performed By: #### 2 175582, 34120208 ####[facility] [address] [place] [address] Protein (U) [Mass/Vol] Negative Normal Negative [facility] Comment on above: Performed By: #### 2 441166, 40325301 ####[place] [address] Specific gravity (U) [Rel density] <=1.005 Invalid Interpretation Code 1.005-1.03 0 [facility] Comment on above: Performed By: #### 2 341155, 99959008 ####[place] [address] Type of Urine collection method Clean Catch Normal [facility] Comment on above: Performed By: #### 2 079526, 67463440 ####[place] [address]57 Urobilinogen Qn (U) 0.2 {Concetta'U}/dL Normal 0.0-1.0 [facility] Comment on above: Performed By: #### 2 914291, 67321209 ####[place] [address]57 WBC Auto Ql (U) 2+ Abnormal Negative [facility] Comment on above: Performed By: #### 2 165735, 97170033 ####[facility] [address] [place], [place] [address] WBC LM.HPF (Urine sed) [#/Area] 26-30 Abnormal 0-5 [facility] Comment on above: Performed By: #### 2 516039, 63062684 ####[facility] [address] [place] [address] US Gallbladderon 02-02-2022 US Gallbladder Exam Date/Time: [...] V. Transcribed by: BENNY Technologist: MLE Normal [facility] eGFRon 02-02-2022 GFR/1.73 sq M.predicted among blacks MDRD (S/P/Bld) [Vol rate/Area] mL/min/{1.73_m2} Normal >=59 [facility] Comment on above: Order Comment: Order added by Discern Expert. Result Comment: eGFR is race adjusted. AA=. Performed By: #### 2 301401, 3652148, 8782586, 5929347, 53929417, 1613605 ####[facility] [address] [place] [address] GFR/1.73 sq M.predicted among non-blacks MDRD (S/P/Bld) [Vol rate/Area] mL/min/{1.73_m2} Normal >=59 [facility] Comment on above: Order Comment: Order added by Discern Expert. 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 Kidney failure is indicated at less than 15 mL/min/1.73m2. Performed By: #### 2 253143, 1371642, 1235752, 3695591, 48953067, 9724906 ####[facility] [address] [place] [address] CHEMISTRYOrdered By: Jorge ruby on 02-01-2022 Albumin [...] [Mass/Vol] mg/dL Normal 5 - 21 mg/dL [facility] Remisol CHEMISTRYOrdered By: SYSTEM SYSTEM on 02-01-2022 GFR/1.73 sq M.predicted among blacks MDRD (S/P/Bld) [Vol rate/Area] mL/min/1.73 m2 Normal >=59mL/min /1.73 m2 [facility] Chem S GFR/1.73 sq M.predicted among non-blacks MDRD (S/P/Bld) [Vol rate/Area] mL/min/1.73 m2 Normal >=59mL/min /1.73 m2 [facility] Chem S Urea nitrogen/Creatinine [Mass ratio] Unable to Calculate Invalid Interpretation Code [facility] Remisol Consent for Treatmenton 01-08 Consent for Treatment [id number]:12 7 Normal [facility] HEMATOLOGYOrdered By: SYSTEM SYSTEM on 02-01-2022 [...] Nom (U) >100,000 cfu/ml Gram Negative [facility] Last Sorter species [facility] SEROLOGYOrdered By: Jorge pop on 02-01-2022 Beta hCG Ql Negative (02/01/22 9:55 PM) Normal [facility] Man Sero URINALYSISOrdered By: Jorge Esquivel on [...] PM) Normal Negative [facility] UA Auto SS [place].plasma/[place] .RBC (Bld) [Mass ratio] 4-20 /HPF Normal [...] [facility] UA Auto SS Urobilinogen Qn (U) 0.2712391 {Concetta'U}/dL Normal 0.0 - 1.0 EU/dL [facility] UA Auto SS WBC Auto Ql (U) 2+ *ABN* (02/01/22 11:42 PM) Invalid Interpretation Code Negative [facility] UA Auto SS WBC LM.HPF (Urine sed) [#/Area] 26-30 /HPF Invalid Interpretation Code 0-5/HPF [facility] UA Auto SS Albumin [Mass/volume] in Ser um or PlasmaOrdered By: Delfino Reese on 01-18-2022 Albumin [Mass/Vol] 3.8 g/dL 3.2-5.5 [facility] C reactive protein [Mass/vol ume] in Serum or PlasmaOrdered By: Delfino Reese on 01-18-2022 CRP [Mass/Vol] 1.9 mg/dL 0.0-1.0 [facility] Creatinine and Glomerular fi ltration rate.predicted panel (S/P/Bld)Ordered By: Delfino Reese on 01-18-2022 Creatinine [Mass/Vol] 0.57 mg/dL 0.44-1.03 [facility] Erythrocyte sedimentation ra te by Photometric methodOrdered By: Delfino Reese on 01-18-2022 ESR Photometric method (Bld) [Velocity] 8 mm/hr 0-19 [facility] Estimated glomerular filtrat ion rate (GFR) non- AmericanOrdered By: Delfino Reese on 01-18-2022 GFR/1.73 sq M.predicted among non-blacks MDRD (S/P/Bld) [Vol rate/Area] > 60 mL/Min [facility] Folate [Mass/volume] in Seru m or PlasmaOrdered By: Delfino Reese on 01-18-2022 Folate [Mass/Vol] 10.4 ng/mL >5.9 [facility] Comment on above: Folate reference ran ge: >5.9 ng/mlThe WHO technical consultation on folate and vitamin y26iklazlaxhfyb has determined that folate concentrations lessthan 4 ng/ml are considered deficient. Globulin Calc (S) [Mass/Vol] Ordered By: Delfino Reese on 01-18-2022 Globulin (S) [Mass/Vol] 3.2 g/dL [facility] - Chemistry and C hemistry - challengeOrdered By: Delfino Reese on 01-18-2022 Cobalamin (Vitamin B12) [Mass/Vol] 588 pg/mL 180-914 [facility] No Panel InformationOrdered By: Delfino Reese on 01-18-2022 Estimated GFR () > 60 mL/Min [facility] Comment on above: GFR estimated refere nce range: According to KDOQI guidelines, <60 ml/min/1.73m2 is sufficient to diagnose a patient with chronic kidney disease. Pharmacy Creatinine Clearance (Chem N/A [facility] Protein [Mass/volume] in Ser um or PlasmaOrdered By: Delfino Reese on 01-18-2022 Protein [Mass/Vol] 7.0 g/dL 6.1-7.9 [facility] Serum or plasma alanine montes otransferase measurement without P-5'-P (enzymatic activiOrdered By: Delfino Reese on 01-18-2022 ALT No additional P-5'-P [Catalytic activity/Vol] 58 U/L [facility] Serum or plasma albumin/glob ulin mass ratioOrdered By: Delfino Reese on 01-18-2022 Albumin/Globulin [Mass ratio] 1.2 {ratio} [facility] Serum or plasma alkaline florencio sphatase measurement (enzymatic activity/volume)Ordered By: Delfino Reese on 01-18-2022 ALP [Catalytic activity/Vol] 90 U/L 32-92 [facility] Serum or plasma anion gap de terminationOrdered By: Delfino Reese on 01-18-2022 Anion gap [Moles/Vol] 16.5 mmol/L 6.0-15.0 [facility] Serum or plasma aspartate am inotransferase measurement (enzymatic activity/volume)Ordered By: Delfino Reese on 01-18-2022 AST [Catalytic activity/Vol] 84 U/L [facility] Serum or plasma calcium archie urement (mass/volume)Ordered By: Delfino Reese on 01-18-2022 Calcium [Mass/Vol] 9.2 mg/dL 8.2-10.2 [facility] Serum or plasma chloride luz surement (moles/volume)Ordered By: Delfino Reese on 01-18-2022 Chloride [Moles/Vol] 105 mmol/L 95-114 [facility] Serum or plasma glucose archie urement (mass/volume)Ordered By: Delfino Reese on 01-18-2022 Glucose [Mass/Vol] 114 mg/dL 70-100 [facility] Comment on above: ADA recommended refe rence rangeRandom Glucose Reference Range is dependent on time and content of last meal. Glucose of more than 200 mg/dL in a nonstressed, ambulatory subject supports the diagnosis of Diabetes Mellitus. Serum or plasma potassium me asurement (moles/volume)Ordered By: Delfino Reese on 01-18-2022 Potassium [Moles/Vol] 3.5 mmol/L 3.5-5.1 [facility] Serum or plasma sodium measu rement (moles/volume)Ordered By: Delfino Reese on 01-18-2022 Sodium [Moles/Vol] 143 mmol/L 136-146 [facility] Serum or plasma total biliru bin measurement (mass/volume)Ordered By: Delfino Reese on 01-18-2022 Bilirubin [Mass/Vol] 0.8 mg/dL 0.3-1.2 [facility] Serum or plasma total carbon dioxide measurement (moles/volume)Ordered By: Delfino Reese on 01-18-2022 CO2 [Moles/Vol] 25.0 mmol/L 22.0-30.0 [facility] Serum or plasma urea nitroge n measurement (mass/volume)Ordered By: Delfino Reese on 01-18-2022 Urea nitrogen [Mass/Vol] 1 mg/dL 9-23 [facility] TSH DL <= 0.005 mIU/L QnOrde red By: Delfino Reese on 01-18-2022 TSH Qn 7.46 m[IU]/L 0.45-5.33 [facility] Thyroxine (T4) free [Mass/vo lume] in Serum or PlasmaOrdered By: Delfino Reese on 01-18-2022 Free T4 [Mass/Vol] 0.71 ng/dL 0.61-1.12 [facility] Bacteria identified Anaer cx Nom (Unsp spec)Ordered By: Delfino Reese on 12-26-2021 Anaerobic microbial culture No Anaerobes Isolated 3 Days [facility] ABO and Rh group post transf usion reaction Nom (Bld)Ordered By: Delfino Reese on 12-23-2021 Microscopic observation Gram stain Nom (Unsp spec) [facility] Albumin [Mass/volume] in Cer ebral spinal fluidOrdered By: Delfino Reese on 12-23-2021 Albumin (CSF) [Mass/Vol] 14 mg/dL 7-29 [facility] Albumin [Mass/volume] in Ser um or PlasmaOrdered By: Delfino Reese on 12-23-2021 Albumin [Mass/Vol] 4.2 g/dL 3.8-4.8 [facility] CSF IgG/albumin ratioOrdered By: Delfino Reese on 12-23-2021 IgG/Albumin (CSF) [Mass ratio] 0.10 0.00-0.25 [facility] Cerebrospinal fluid IgG inde xOrdered By: Delfino Reese on 12-23-2021 IgG clearance/Albumin clearance (S+CSF) [Ratio] 0.6 0.0-0.7 [facility] Cerebrospinal fluid glucose measurement (mass/volume)Ordered By: Delfino Reese on 12-23-2021 Glucose (CSF) [Mass/Vol] 87 mg/dL 40-70 [facility] Cerebrospinal fluid post-antonia trifugation appearance determinationOrdered By: Delfino Reese on 12-23-2021 Appearance (Spun CSF) Colorless Colorless [facility] Cerebrospinal fluid sample t ube volume measurementOrdered By: Delfino Reese on 12-23-2021 Specimen volume (CSF) 2.0 mL [facility] Color CSFOrdered By: Delfino Reese on 12-23-2021 Color (CSF) Colorless Colorless [facility] IgG [Mass/volume] in Cerebra l spinal fluidOrdered By: Delfino Reese on 12-23-2021 IgG (CSF) [Mass/Vol] 1.4 mg/dL 0.0-6.7 [facility] IgG [Mass/volume] in Serum o r PlasmaOrdered By: Delfino Reese on 12-23-2021 IgG [Mass/Vol] 708 mg/dL 586-1602 [facility] IgG synthesis rate [Mass/aleksey e] in Serum and CSF by calculationOrdered By: Delfino Reese on 12-23-2021 IgG synthesis rate Calc (S+CSF) [Mass/Time] -1.0 mg/day -9.9 TO +3.3 [facility] Comment on above: Performed at: [employer] [facility] [employer] [place] [address] [place], [place] [id number] Street Light Repairer Helper: Torsten Vidal PhD, Phone: [phone] Performed at: [employer] [address] [place], [place] [id number] Director: Torsten Vidal PhD, Phone: [phone] Manual cerebrospinal fluid e rythrocytes count (number/volume)Ordered By: Delfino Reese on 12-23-2021 RBC Manual cnt (CSF) [#/Vol] 77 /uL [facility] Comment on above: The reference interv al and other method performance specifications have not been established for this body fluid. The test result must be integrated into the clinical context for interpretation. No Panel InformationOrdered By: Delfino Reese on 12-23-2021 CSF Appearance Clear Clear [facility] CSF Eosinophils N/A [facility] CSF Lymphocytes 1 [facility] Comment on above: The reference interv al and other method performance specifications have not been established for this body fluid. The test result must be integrated into the clinical context for interpretation. CSF Monocytes 1 [facility] Comment on above: The reference interv al and other method performance specifications have not been established for this body fluid. The test result must be integrated into the clinical context for interpretation. CSF Myelin Basic Protein 3.3 ng/mL 0.0-3.7 [facility] Comment on above: Results of this test are labeled for research purposes only by the assay's data entry technician. The performance characteristics of this assay have not been established by the data entry technician. The result should not be used for treatment or for diagnostic purposes without confirmation of the diagnosis by another medically established diagnostic product or procedure. The performance characteristics were determined by [employer]. Performed at: [address] [id number] [address] Light Repairer Helper: Charlie Manriquez MD, Phone: [phone] Results of this test are labeled for research purposes onlyby the assay's data entry technician. The performancecharacteristics of this assay have not been established bythe data entry technician. The result should not be used fortreatment or for diagnostic purposes without confirmationof the diagnosis by another medically establisheddiagnostic product or procedure. The performancecharacteristics were determined by [facility] [facility].Performed at: - [address] [id number] Director: Charlie Manriquez MD, Phone: [phone] CSF Neutrophils N/A [facility] CSF Total Cells Counted 2 [facility] CSF Tube Number Tube number: 1 [facility] Nucleated cells [#/volume] i n Cerebral spinal fluid by Manual countOrdered By: Delfino Reese on 12-23-2021 Nucleated cells Manual cnt (CSF) [#/Vol] 0.002 10*3/uL 0-5 [facility] Protein [Mass/volume] in Cer ebral spinal fluidOrdered By: Delfino Reese on 12-23-2021 Protein (CSF) [Mass/Vol] 23 mg/dL 15-45 [facility] Protein fractions.oligoclona l bands.intrathecal [Presence] in Serum and CSFOrdered By: Delfino Reese on 12-23-2021 Protein fractions.oligoclonal bands.intrathecal Ql (S+CSF) See comment . [facility] Comment on above: Zero (0) oligoclonal bands [...] Focusing (IEF) and immunoblotting methodology. Performed at: [address] [id number] [address] Light Repairer Helper: Torsten Vidal PhD, Phone: [phone] Zero (0) oligoclonal bands were observed in [...] using IsoelectricFocusing (IEF) and immunoblotting methodology.Performed at: [address] [id number] Director: Torsten Vidal PhD, Phone: [phone] Basophils Auto (Bld) [#/Vol] Ordered By: Avery Blanca on 11-25-2021 Basophils (Bld) [#/Vol] 0.0 10*3/uL 0.0-0.2 [facility] Basophils/100 WBC Auto (Bld) Ordered By: Avery Blanca on 11-25-2021 Basophils/100 WBC (Bld) 0.5 % . [facility] Blood hemoglobin measurement (mass/volume)Ordered By: Avery Blanca on 11-25-2021 Hemoglobin (Bld) [Mass/Vol] 15.4 g/dL 11.8-15.4 [facility] Blood leukocytes automated c ount (number/volume)Ordered By: Avery Blanca on 11-25-2021 WBC (Bld) [#/Vol] 5.3 10*3/uL 4.5-11.0 [facility] Blood thiamine measurement ( moles/volume)Ordered By: Avery Blanca on 11-25-2021 Thiamine (Bld) [Moles/Vol] 113.7 nmol/L 66.5-200.0 [facility] Comment on above: This test was develo ped and its performance characteristics determined by [facility]. It has not been cleared or approved by the Food and Drug Administration. Performed at: [address] [id number] [address] Light Repairer Helper: Charlie Manriquez MD, Phone: [phone] This test was develo ped and its performance characteristicsdetermined by [facility]. It has not been cleared orapproved by the Food and Drug Administration.Performed at: [facility] [employer] [id number] Director: Charlie Manriquez MD, Phone: [phone] Body fluid albumin measureme nt (mass/volume)Ordered By: Avery Blanca on 11-25-2021 Albumin (Body fld) [Mass/Vol] 4.0 g/dL 3.2-5.5 [facility] Creatinine and Glomerular fi ltration rate.predicted panel (S/P/Bld)Ordered By: Avery Blanca on 11-25-2021 Creatinine [Mass/Vol] 0.67 mg/dL 0.44-1.03 [facility] Eosinophils Auto (Bld) [#/Vo l]Ordered By: Avery Blanca on 11-25-2021 Eosinophils (Bld) [#/Vol] 0.1 10*3/uL 0.0-0.45 [facility] Eosinophils/100 WBC Auto (Bl d)Ordered By: Avery Blanca on 11-25-2021 Eosinophils/100 WBC (Bld) 1.3 % . [facility] Erythrocyte distribution wid th Auto (RBC) [Ratio]Ordered By: Avery Blanca on 11-25-2021 Erythrocyte distribution width (RBC) [Ratio] 13.5 % 11.9-15.3 [facility] Erythrocyte sedimentation ra te by Photometric methodOrdered By: Avery Blanca on 11-25-2021 ESR Photometric method (Bld) [Velocity] 14 mm/hr 0- [facility] Estimated glomerular filtrat ion rate (GFR) non- AmericanOrdered By: Avery Blanca on 11-25-2021 GFR/1.73 sq M.predicted among non-blacks MDRD (S/P/Bld) [Vol rate/Area] > 60 mL/Min [facility] Folate [Mass/volume] in Seru m or PlasmaOrdered By: Avery Blanca on 11-25-2021 Folate [Mass/Vol] 9.2 ng/mL >5.9 [facility] Comment on above: Folate reference ran ge: >5.9 ng/ml The WHO technical consultation on folate and vitamin b12 deficiencies has determined that folate concentrations less than 4 ng/ml are considered deficient. Folate reference ran ge: >5.9 ng/mlThe WHO technical consultation on folate and vitamin [id number] has determined that folate concentrations lessthan 4 ng/ml are considered deficient. Globulin Calc (S) [Mass/Vol] Ordered By: Avery Blanca on 11-25-2021 Globulin (S) [Mass/Vol] 2.9 g/dL [facility] Hematocrit Auto (Bld) [Volum e fraction]Ordered By: Avery Blanca on 11-25-2021 Hematocrit (Bld) [Volume fraction] 45.2 % 34.0-46.4 [facility] - Chemistry and C hemistry - challengeOrdered By: Avery Blanca on 11-25-2021 Cobalamin (Vitamin B12) [Mass/Vol] 421 pg/mL 180-914 [facility] - Hematology and Cell countsOrdered By: Avery Blanca on 11-25-2021 Nucleated RBC/100 WBC (Bld) [Ratio] 0.6 % 0-0.5 [facility] Lymphocytes Auto (Bld) [#/Vo l]Ordered By: Avery Blanca on 11-25-2021 Lymphocytes (Bld) [#/Vol] 0.8 10*3/uL 1.00-4.8 [facility] Lymphocytes/100 WBC Auto (Bl d)Ordered By: Avery Blanca on 11-25-2021 Lymphocytes/100 WBC (Bld) 14.8 % . [facility] MCH Auto (RBC) [Entitic mass ]Ordered By: Avery Blanca on 11-25-2021 MCH (RBC) [Entitic mass] 32.3 pg 24.7-34.3 [facility] MCHC Auto (RBC) [Mass/Vol]Or dered By: Avery Blanca on 11-25-2021 MCHC (RBC) [Mass/Vol] 34.0 g/dL 32.0-35.0 [facility] MCV Auto (RBC) [Entitic vol] Ordered By: Avery Blanca on 11-25-2021 MCV (RBC) [Entitic vol] 95.1 fL 80-100 [facility] Monocytes Auto (Bld) [#/Vol] Ordered By: Avery Blanca on 11-25-2021 Monocytes (Bld) [#/Vol] 0.2 10*3/uL 0.0-0.8 [facility] Monocytes/100 WBC Auto (Bld) Ordered By: Avery Blanca on 11-25-2021 Monocytes/100 WBC (Bld) 3.4 % . [facility] Neutrophils Auto (Bld) [#/Vo l]Ordered By: Avery Blanca on 11-25-2021 Neutrophils (Bld) [#/Vol] 4.2 10*3/uL 1.8-7.7 [facility] Neutrophils/100 WBC Auto (Bl d)Ordered By: Avery Blanca on 11-25-2021 Neutrophils/100 WBC (Bld) 80.0 % . [facility] No Panel InformationOrdered By: Avery Blanca on 11-25-2021 Estimated GFR () > 60 mL/Min [facility] Comment on above: GFR estimated refere nce range: According to KDOQI guidelines, <60 ml/min/1.73m2 is sufficient to diagnose a patient with chronic kidney disease. Pharmacy Creatinine Clearance (Chem N/A [facility] Platelet mean volume Auto (B ld) [Entitic vol]Ordered By: Avery Blanca on 11-25-2021 Platelet mean volume (Bld) [Entitic vol] 9.1 fL 6.3-10.7 [facility] Platelets Auto (Bld) [#/Vol] Ordered By: Avery Blanca on 11-25-2021 Platelets (Bld) [#/Vol] 210 10*3/uL 150-450 [facility] Protein [Mass/volume] in Ser um or PlasmaOrdered By: Avery Blanca on 11-25-2021 Protein [Mass/Vol] 6.9 g/dL 6.1-7.9 [facility] RBC Auto (Bld) [#/Vol]Ordere d By: Avery Blanca on 11-25-2021 RBC (Bld) [#/Vol] 4.75 10*6/uL 3.60-5.00 [facility] Serum or plasma alanine montes otransferase measurement without P-5'-P (enzymatic activiOrdered By: Avery Blanca on 11-25-2021 ALT No additional P-5'-P [Catalytic activity/Vol] 130 U/L 10-60 [facility] Serum or plasma albumin/glob ulin mass ratioOrdered By: Avery Blanca on 11-25-2021 Albumin/Globulin [Mass ratio] 1.4 {ratio} [facility] Serum or plasma alkaline florencio sphatase measurement (enzymatic activity/volume)Ordered By: Avery Blanca on 11-25-2021 ALP [Catalytic activity/Vol] 74 U/L 32-92 [facility] Serum or plasma aspartate am inotransferase measurement (enzymatic activity/volume)Ordered By: Avery Blanca on 11-25-2021 AST [Catalytic activity/Vol] 117 U/L 10-42 [facility] Serum or plasma calcium archie urement (mass/volume)Ordered By: Avery Blanca on 11-25-2021 Calcium [Mass/Vol] 9.6 mg/dL 8.2-10.2 [facility] Serum or plasma chloride luz surement (moles/volume)Ordered By: Avery Blanca on 11-25-2021 Chloride [Moles/Vol] 98 mmol/L 95-114 [facility] Serum or plasma glucose archie urement (mass/volume)Ordered By: Avery Blanca on 11-25-2021 Glucose [Mass/Vol] 121 mg/dL 70-100 [facility] Comment on above: ADA recommended refe [...] on 11-25-2021 Potassium [Moles/Vol] 3.6 mmol/L 3.5-5.1 [facility] Serum or plasma sodium measu rement (moles/volume)Ordered By: Avery Blanca on 11-25-2021 Sodium [Moles/Vol] 139 mmol/L 136-146 [facility] Serum or plasma total biliru bin measurement (mass/volume)Ordered By: Avery Blanca on 11-25-2021 Bilirubin [Mass/Vol] 0.8 mg/dL 0.3-1.2 [facility] Serum or plasma total carbon dioxide measurement (moles/volume)Ordered By: Avery Blanca on 11-25-2021 CO2 [Moles/Vol] 28.4 mmol/L 22.0-30.0 [facility] Serum or plasma urea nitroge n measurement (mass/volume)Ordered By: Avery Blanca on 11-25-2021 Urea nitrogen [Mass/Vol] 5 mg/dL 9-23 [facility] TSH DL <= 0.005 mIU/L QnOrde red By: Avery Blanca on 11-25-2021 TSH Qn 2.02 m[IU]/L 0.45-5.33 [facility] AMYLASEon 11-20-2021 Amylase [Catalytic activity/Vol] 15 U/L Critically low 25-115 [facility] Comment on above: Performed By: #### L IPA, NGA, CMP #### [facility] [address] [place] [address] Dr. Angela Aguero CBC W MANUAL DIFFon 11-21-19 22 ATYPICAL LYMPH # Normal [facility] Comment on above: Performed By: #### C KRISHAN #### [facility] [address] [address] [address] Angela Aguero ATYPICAL LYMPH % Normal [facility] Comment on above: Performed By: #### C KRISHAN #### [facility] [address] [address] [address] Angela Aguero BAND # 0.2 103/ul Normal 0.0-0.3 [facility] Comment on above: Performed By: #### C BCMAN #### [facility] [address] [place] [address] Dr. Angela Aguero BAND % 3 % Normal 0-5 [facility] Comment on above: Performed By: #### C BCMAN #### [facility] [address] [place] [address] Dr. Angela Aguero BASOM # 0.00 103/ul Normal 0.00-0.10 [facility] Comment on above: Performed By: #### C BCMAN #### [facility] [address] [place] [address] Dr. Angela Aguero BASOM % 0.0 % Critically low 0.2-2.0 [facility] Comment on above: Performed By: #### C BCSOLANGE #### [facility] [address] [place] [address] Dr. Angela Aguero BLAST # Normal [facility] Comment on above: Performed By: #### C KRISHAN #### [facility] [address] [place] [address] Dr. Angela Aguero BLAST % Normal [facility] Comment on above: Performed By: #### C BCSOLANGE #### [facility] [address] [place] [address] Dr. Angela Aguero CORRECTED WBC Normal 4.0-11.0 [facility] Comment on above: Performed By: #### C BCMAN #### [facility] [address] [place] [address] Dr. Angela Aguero EOS # 0.00 103/ul Normal 0.00-0.70 [facility] Comment on above: Performed By: #### C BCMAN #### [facility] [address] [place] [address] Dr. Angela Aguero EOS% 0.0 % Critically low 0.9-7.0 [facility] Comment on above: Performed By: #### C BCSOLANGE #### [facility] [address] [place] [address] Dr. Angela Aguero HCT 41.2 % Normal 36.0-48.0 [facility] Comment on above: Performed By: #### C KRISHAN #### [facility] [address] [place] [address] Dr. Angela Aguero HGB 14.2 g/dl Normal 12.0-16.0 [facility] Comment on above: Performed By: #### C KRISHAN #### [facility] [address] [place] [address] Dr. Angela Aguero LYMPHM # 0.19 103/ul Critically low 1.20-3.80 [facility] [place] Comment on above: Performed By: #### C KRISHAN #### [facility] [address] [place] [address] Dr. Angela Aguero LYMPHM% 3.0 % Critically low 20.5-60.0 [facility] Comment on above: Performed By: #### C KRISHAN #### [facility] [address] [place] [address] Dr. Angela Aguero MCH 32.4 pg Normal 26.7-34.0 [facility] Comment on above: Performed By: #### C KRISHAN #### [facility] [address] [place] [address] Dr. Angela Aguero MCHC 34.5 g/dl Normal 29.9-35.2 [facility] Comment on above: Performed By: #### C KRISHAN #### [facility] [address] [place] [address] Dr. Angela Aguero MCV 94.1 fL Normal 81.0-99.0 [facility] Comment on above: Performed By: #### C KRISHAN #### [facility] [address] [place] [address] Dr. Angela Aguero METAMYELOCYTE # Normal [facility] Comment on above: Performed By: #### C KRISHAN #### [facility] [address] [place] [address] Dr. Angela Aguero METAMYELOCYTE % Normal [facility] Comment on above: Performed By: #### C KRISHAN #### [facility] [address] [address] [address] Angela Aguero MONOM# 0.32 103/ul Normal 0.30-0.80 [facility] Comment on above: Performed By: #### C KRISHAN #### [facility] [address] [place] [address] Dr. Angela Aguero MONOM% 5.0 % Normal 1.7-12.0 [facility] Comment on above: Performed By: #### C KRISHAN #### [facility] [address] [place] [address] Dr. Angela Aguero MPV 10.4 fL Normal 9.5-13.5 [facility] Comment on above: Performed By: #### C KRISHAN #### [facility] [address] [place] [address] Dr. Angela Aguero MYELOCYTE # Normal [facility] Comment on above: Performed By: #### Jeannette NICKERSON #### [facility] [address] [place] [address] Dr. Angela Aguero MYELOCYTE % Normal [facility] Comment on above: Performed By: #### C KRISHAN #### [facility] [address] [place] [address] Dr. Angela Aguero NRBC Normal [facility] Comment on above: Performed By: #### C KRISHAN #### [facility] [address] [place] [address] Dr. Angela Aguero PLT 204 103/ul Normal 150-450 [facility] Comment on above: Performed By: #### C KRISHAN #### [facility] [address] [place] [address] Dr. Angela Aguero RBC 4.38 106/ul Normal 4.20-5.40 [facility] Comment on above: Performed By: #### C KRISHAN #### [facility] [address] [place] [address] Dr. Angela Aguero RDW 12.4 % Normal 11.0-15.0 [facility] Comment on above: Performed By: #### C KRISHAN #### [facility] [address] [place] [address] Dr. Angela Aguero SEG # 5.70 103/ul Normal 1.40-6.50 [facility] Comment on above: Performed By: #### C KRISHAN #### [facility] [address] [address] [address] Angela Aguero SEG % 89.0 % Critically high 43.0-75.0 [facility] Comment on above: Performed By: #### C KRISHAN #### [facility] [address] [address] [address] Angela Aguero WBC 6.4 103/ul Normal 4.0-11.0 [facility] Comment on above: Performed By: #### C KRISHAN #### [facility] [address] [address] [address] Angela Aguero CRPon 11-20-2021 CRP [Mass/Vol] mg/L Normal <=1.0 [facility] Comment on above: Performed By: #### L NGA SMITH, CMP #### [facility] [address] [place] [address] Dr. Angela Aguero LIPASEon 11-20-2021 Lipase [Catalytic activity/Vol] 28.0 U/L Critically low 73.0-393.0 [facility] Comment on above: Performed By: #### L NGA SMITH, CMP #### [facility] [address] [place] [address] Dr. Angela Aguero PROF 14(COMP METB)on 022 Albumin [Mass/Vol] 3.4 g/dL Normal 3.4-5.0 [facility] Comment on above: Performed By: #### L NGA SMITH, CMP #### [facility] [address] [place] [address] Dr. Angela Aguero Albumin/Globulin [Mass ratio] 1.0 {ratio} Normal [facility] Comment on above: Performed By: #### L NGA SMITH, CMP #### [facility] [address] [place] [address] Dr. Angela Aguero ALP [Catalytic activity/Vol] 63 U/L Normal 46-116 [facility] Comment on above: Performed By: #### L IPA, NGA, CMP #### [facility] [address] [address] [address] Angela Aguero ALT [Catalytic activity/Vol] 55 U/L Normal 14-59 [facility] Comment on above: Performed By: #### L IPA, NGA, CMP #### [facility] [address] [address] [address] Angela Aguero Anion gap [Moles/Vol] 13.3 mmol/L Normal [facility] Comment on above: Performed By: #### L IPA, NGA, CMP #### [facility] [address] [address] [address] Angela Aguero AST [Catalytic activity/Vol] 39 U/L Critically high 15-37 [facility] Comment on above: Performed By: #### L IPA, NGA, CMP #### [facility] [address] [place] [address] Dr. Angela Aguero Bilirubin [Mass/Vol] 1.1 mg/dL Critically high 0.2-1.0 [facility] Comment on above: Performed By: #### L IPA, NGA, CMP #### [facility] [address] [place] [address] Dr. Angela Aguero Calcium [Mass/Vol] 7.9 mg/dL Critically low 8.5-10.1 [facility] Comment on above: Performed By: #### L IPA, NGA, CMP #### [facility] [address] [place] [address] Dr. Angela Aguero Chloride [Moles/Vol] 103 mmol/L Normal 98-107 [facility] Comment on above: Performed By: #### L IPA, NGA, CMP #### [facility] [address] [place] [address] Dr. Angela Aguero CO2 [Moles/Vol] 26.9 mmol/L Normal 21.0-32.0 [facility] Comment on above: Performed By: #### L IPA, NGA, CMP #### [facility] [address] [place] [address] Dr. Angela Aguero Creatinine [Mass/Vol] 0.81 mg/dL Normal 0.55-1.02 [facility] Comment on above: Performed By: #### L NGA SMITH, CMP #### [facility] [address] [place] [address] Dr. Angela Aguero EGFR-AF LATVIAN >60 Normal >=60 [facility] Comment on above: Performed By: #### L GNA SMITH, CMP #### [facility] [address] [address] [address] Angela Aguero EGFR-NON AF LATVIAN >60 Normal >=60 [facility] Comment on above: Performed By: #### L NGA SMITH, CMP #### [facility] [address] [place] [address] Dr. Angela Aguero Globulin (S) [Mass/Vol] 3.3 g/dL Normal [facility] Comment on above: Performed By: #### L NGA SMITH, CMP #### [facility] [address] [place] [address] Dr. Angela Aguero Glucose [Mass/Vol] 185 mg/dL Critically high 74-106 [facility] Comment on above: Performed By: #### L NGA SMITH, CMP #### [facility] [address] [place] [address] Dr. Angela Aguero Potassium [Moles/Vol] 3.2 mmol/L Critically low 3.5-5.1 [facility] Comment on above: Performed By: #### L NGA SMITH, CMP #### [facility] [address] [place] [address] Dr. Angela Aguero Protein [Mass/Vol] 6.7 g/dL Normal 6.4-8.2 [facility] Comment on above: Performed By: #### L NGA SMITH, CMP #### [facility] [address] [place] [address] Dr. Angela Aguero Sodium [Moles/Vol] 140 mmol/L Normal 136-145 [facility] Comment on above: Performed By: #### L NGA SMITH, CMP #### [facility] [address] [place] [address] Dr. Angela Aguero Urea nitrogen [Mass/Vol] 8.0 mg/dL Normal 7.0-18.0 [facility] Comment on above: Performed By: #### L IPA, NGA, CMP #### [facility] [address] [place] [address] Dr. Angela Aguero Urea nitrogen/Creatinine [Mass ratio] 9.9 mg/mg Normal [facility] Comment on above: Performed By: #### L IPA, NGA, CMP #### [facility] [address] [place] [address] Dr. Angela Aguero SED RATE WESTERGRENon 2021 SED RATE 3 mm/hr Normal <=20 [facility] Comment on above: Performed By: #### S EDR #### [facility] [address] [place] [address] Dr. Angela Aguero AMYLASEon 11-19-2021 Amylase [Catalytic activity/Vol] 17 U/L Critically low 25-115 [facility] Comment on above: Performed By: #### C MP, NGA, CRP, LIPA #### [facility] [address] [place] [address] Dr. Angela Aguero CBC AUTO DIFFon 11-19-2021 BASO # 0.0 103/ul Normal 0.0-0.1 [facility] Comment on above: Performed By: #### L IPA, NGA, CMP #### [facility] [address] [place] [address] Dr. Angela Aguero Basophils/100 WBC (Bld) 0.6 % Normal 0.2-2.0 [facility] Comment on above: Performed By: #### L IPA, NGA, CMP #### [facility] [address] [place] [address] Dr. Angela Aguero EO # 0.0 103/ul Normal 0.0-0.7 [facility] Comment on above: Performed By: #### L IPA, NGA, CMP #### [facility] [address] [place] [address] Dr. Angela Aguero Eosinophils/100 WBC (Bld) 0.0 % Critically low 0.9-7.0 [facility] Comment on above: Performed By: #### L NGA SMITH, CMP #### [facility] [address] [place] [address] Dr. Angela Aguero Erythrocyte distribution width (RBC) [Ratio] 12.9 % Normal 11.0-15.0 [facility] Comment on above: Performed By: #### L NGA SMITH, CMP #### [facility] [address] [place] [address] Dr. Angela Aguero Hematocrit (Bld) [Volume fraction] 43.3 % Normal 36.0-48.0 [facility] Comment on above: Performed By: #### L NGA SMITH, CMP #### [facility] [address] [place] [address] Dr. Angela Aguero Hemoglobin (Bld) [Mass/Vol] 14.7 g/dL Normal 12.0-16.0 [facility] Comment on above: Performed By: #### L NGA SMITH, CMP #### [facility] [address] [place] [address] Dr. Angela Aguero IG # 0.02 10e3/ul Normal 0.00-0.03 [facility] Comment on above: Performed By: #### L NGA SMITH, CMP #### [facility] [address] [place] [address] Dr. Angela Aguero IG % 0.6 % Critically high 0.0-0.5 [facility] [place] Comment on above: Performed By: #### L NGA SMITH, CMP #### [facility] [address] [place] [address] Dr. Angela Aguero LYMPH # 0.3 103/ul Critically low 1.2-3.8 [facility] Comment on above: Performed By: #### L NGA SMITH, CMP #### [facility] [address] [place] [address] Dr. Angela Aguero Lymphocytes/100 WBC (Bld) 8.9 % Critically low 20.5-60.0 [facility] Comment on above: Performed By: #### L NGA SMITH, CMP #### [facility] [address] [place] [address] Dr. Angela Aguero MANUAL DIFF REQ NO Normal [facility] Comment on above: Performed By: #### L NGA SMITH, CMP #### [facility] [address] [place] [address] Dr. Angela Aguero MCH (RBC) [Entitic mass] 32.5 pg Normal 26.7-34.0 [facility] Comment on above: Performed By: #### L NGA SMITH, CMP #### [facility] [address] [place] [address] Dr. Angela Aguero MCHC (RBC) [Mass/Vol] 33.9 g/dL Normal 29.9-35.2 [facility] Comment on above: Performed By: #### L NGA SMITH, CMP #### [facility] [address] [place] [address] Dr. Angela Aguero MCV (RBC) [Entitic vol] 95.6 fL Normal 81.0-99.0 [facility] Comment on above: Performed By: #### L NGA SMITH, CMP #### [facility] [address] [place] [address] Dr. Angela Aguero MONO # 0.0 103/ul Critically low 0.3-0.8 [facility] Comment on above: Performed By: #### L NGA SMITH, CMP #### [facility] [address] [place] [address] Dr. Angela Aguero Monocytes/100 WBC (Bld) 0.6 % Critically low 1.7-12.0 [facility] Comment on above: Performed By: #### L NGA SMITH, CMP #### [facility] [address] [place] [address] Dr. Angela Aguero NEUT # 3.1 103/ul Normal 1.4-6.5 [facility] Comment on above: Performed By: #### L NGA SMITH, CMP #### [facility] [address] [place] [address] Dr. Angela Aguero Neutrophils/100 WBC (Bld) 89.3 % Critically high 43.0-75.0 [facility] Comment on above: Performed By: #### L IPA, NGA, CMP #### [facility] [address] [address] [address] Angela Aguero Platelet mean volume (Bld) [Entitic vol] 10.6 fL Normal 9.5-13.5 [facility] Comment on above: Performed By: #### L IPA, NGA, CMP #### [facility] [address] [address] [address] Angela Aguero PLT 212 103/ul Normal 150-450 [facility] Comment on above: Performed By: #### L IPA, NGA, CMP #### [facility] [address] [address] [address] Angela Aguero RBC 4.53 106/ul Normal 4.20-5.40 [facility] Comment on above: Performed By: #### L IPA, NGA, CMP #### [facility] [address] [place] [address] Dr. Angela Aguero WBC 3.5 103/ul Critically low 4.0-11.0 [facility] Comment on above: Performed By: #### L IPA, NGA, CMP #### [facility] [address] [place] [address] Dr. Angela Aguero CRPon 11-19-2021 CRP [Mass/Vol] mg/L Normal <=1.0 [facility] Comment on above: Performed By: #### C MP, NGA, CRP, LIPA #### [facility] [address] [address] [address] Angela Aguero ER URINE PROFILEon 2 Bilirubin Ql (U) Negative Normal NEGATIVE [facility] Comment on above: Performed By: #### L IPA, NGA, CMP #### [facility] [address] [place] [address] Dr. Angela Aguero Clarity (U) CLEAR Normal CLEAR [facility] Comment on above: Performed By: #### L IPA, NGA, CMP #### [facility] [address] [place] [address] Dr. Angela Aguero Color (U) DK. ORANGE Abnormal YELLOW [facility] Comment on above: Performed By: #### L IPA NGA, CMP #### [facility] [address] [address] [address] Angela CARRASCO A micrscopic examina tion will be performed if indicated. Normal [facility] Comment on above: Performed By: #### L IPA NGA, CMP #### [facility] [address] [address] [address] Angela Aguero Glucose Ql (U) Negative Normal NEGATIVE [facility] Comment on above: Performed By: #### L IPA NGA, CMP #### [facility] [address] [address] [address] Angela Aguero Hemoglobin Ql (U) Negative Normal NEGATIVE [facility] Comment on above: Performed By: #### L IPA NGA, CMP #### [facility] [address] [place] [address] Dr. Angela Augero Ketones Ql (U) 40 mg/dl Abnormal NEGATIVE [facility] Comment on above: Performed By: #### L IPA NGA, CMP #### [facility] [address] [place] [address] Dr. Angela Aguero LEUKOCYTES Negative Normal NEGATIVE [facility] Comment on above: Performed By: #### L IPA NGA, CMP #### [facility] [address] [place] [address] Dr. Angela Aguero Nitrite Ql (U) Negative Normal NEGATIVE [facility] Comment on above: Performed By: #### L IPA NGA, CMP #### [facility] [address] [place] [address] Dr. Angela Aguero pH (U) 5.5 [pH] Normal 5-9 [facility] Comment on above: Performed By: #### L IPA NGA, CMP #### [facility] [address] [place] [address] Dr. Angela Aguero Protein (U) [Mass/Vol] 30 mg/dL Abnormal NEGAT DARIO/ TRACE [facility] Comment on above: Performed By: #### L IPA NGA, CMP #### [facility] [address] [place] [address] Dr. Angela Aguero SPEC GRAVITY >=1.030 Abnormal 1.005-<=1. 025 [facility] Comment on above: Performed By: #### L IPANGA, CMP #### [facility] [address] [place] [address] Dr. Angela Aguero UR MICRO IND INDICATED Normal [facility] Comment on above: Performed By: #### L IPA NGA, CMP #### [facility] [address] [place] [address] Dr. Angela Aguero Urobilinogen Qn (U) 1.0 {Concetta'U}/dL Normal 0.2 - 1. 0 [facility] Comment on above: Performed By: #### L IPA NGA, CMP #### [facility] [address] [place] [address] Dr. Angela Aguero LIPASEon 11-19-2021 Lipase [Catalytic activity/Vol] 22.0 U/L Critically low 73.0-393.0 [facility] Comment on above: Performed By: #### C MP, NGA, CRP, LIPA #### [facility] [address] [place] [address] Dr. Angela Aguero PROF 14(COMP METB)on 022 Albumin [Mass/Vol] 3.7 g/dL Normal 3.4-5.0 [facility] Comment on above: Performed By: #### C MP, NGA, CRP, LIPA #### [facility] [address] [place] [address] Dr. Angela Aguero Albumin/Globulin [Mass ratio] 1.0 {ratio} Normal [facility] Comment on above: Performed By: #### C MP, NGA, CRP, LIPA #### [facility] [address] [place] [address] Dr. Angela Aguero ALP [Catalytic activity/Vol] 73 U/L Normal 46-116 [facility] Comment on above: Performed By: #### C MP, NGA, CRP, LIPA #### [facility] [address] [place] [address] Dr. Angela Aguero ALT [Catalytic activity/Vol] 78 U/L Critically high 14-59 [facility] Comment on above: Performed By: #### C MP, NGA, CRP, LIPA #### [facility] [address] [address] [address] Angela Aguero Anion gap [Moles/Vol] 16.5 mmol/L Normal [facility] Comment on above: Performed By: #### C MP, NGA, CRP, LIPA #### [facility] [address] [address] [address] Angela Aguero AST [Catalytic activity/Vol] 62 U/L Critically high 15-37 [facility] Comment on above: Performed By: #### C MP, NGA, CRP, LIPA #### [facility] [address] [place] [address] Dr. Angela Aguero Bilirubin [Mass/Vol] 1.3 mg/dL Critically high 0.2-1.0 [facility] Comment on above: Performed By: #### C MP, NGA, CRP, LIPA #### [facility] [address] [place] [address] Dr. Angela Aguero Calcium [Mass/Vol] 8.2 mg/dL Critically low 8.5-10.1 [facility] Comment on above: Performed By: #### C MP, NGA, CRP, LIPA #### [facility] [address] [place] [address] Dr. Angela Aguero Chloride [Moles/Vol] 101 mmol/L Normal 98-107 [facility] Comment on above: Performed By: #### C MP, NGA, CRP, LIPA #### [facility] [address] [place] [address] Dr. Angela Aguero CO2 [Moles/Vol] 23.5 mmol/L Normal 21.0-32.0 [facility] Comment on above: Performed By: #### C MP, NGA, CRP, LIPA #### [facility] [address] [place] [address] Dr. Angela Aguero Creatinine [Mass/Vol] 0.81 mg/dL Normal 0.55-1.02 [facility] Comment on above: Performed By: #### C MP, NGA, CRP, LIPA #### [facility] [address] [address] [address] Angela Aguero EGFR-AF LATVIAN >60 Normal >=60 [facility] Comment on above: Performed By: #### C MP, NGA, CRP, LIPA #### [facility] [address] [address] [address] Angela Aguero EGFR-NON AF LATVIAN >60 Normal >=60 [facility] Comment on above: Performed By: #### C MP, NGA, CRP, LIPA #### [facility] [address] [address] [address] Angela Aguero Globulin (S) [Mass/Vol] 3.7 g/dL Normal [facility] Comment on above: Performed By: #### C MP, NGA, CRP, LIPA #### [facility] [address] [address] [address] Angela Aguero Glucose [Mass/Vol] 190 mg/dL Critically high 74-106 [facility] Comment on above: Performed By: #### C MP, NGA, CRP, LIPA #### [facility] [address] [address] [address] Angela Aguero Potassium [Moles/Vol] 4.0 mmol/L Normal 3.5-5.1 [facility] Comment on above: Performed By: #### C MP, NGA, CRP, LIPA #### [facility] [address] [address] [address] Angela Aguero Protein [Mass/Vol] 7.4 g/dL Normal 6.4-8.2 [facility] Comment on above: Performed By: #### C MP, NGA, CRP, LIPA #### [facility] [address] [place] [address] Dr. Angela Aguero Sodium [Moles/Vol] 137 mmol/L Normal 136-145 [facility] Comment on above: Performed By: #### C MP, NGA, CRP, LIPA #### [facility] [address] [place] [address] Dr. Angela Aguero Urea nitrogen [Mass/Vol] 5.0 mg/dL Critically low 7.0-18.0 [facility] Comment on above: Performed By: #### C MP, NGA, CRP, LIPA #### [facility] [address] [place] [address] Dr. Angela Aguero Urea nitrogen/Creatinine [Mass ratio] 6.2 mg/mg Normal [facility] Comment on above: Performed By: #### C MP, NGA, CRP, LIPA #### [facility] [address] [place] [address] Dr. Angela Aguero SED RATE WESTERGRENon 2021 SED RATE 10 mm/hr Normal <=20 [facility] Comment on above: Performed By: #### L NGA SMITH, CMP #### [facility] [address] [place] [address] Dr. Angela Aguero URINE MICROSCOPIC ONLYon BACTERIA TRACE Abnormal NONE SEEN [facility] Comment on above: Performed By: #### L NGA SMITH, CMP #### [facility] [address] [place] [address] Dr. Angela Aguero Bacteria identified Cx Nom (U) NOT INDICATED Normal [facility] Comment on above: Performed By: #### L NGA SMITH, CMP #### [facility] [address] [place] [address] Dr. Angela Aguero CAST SEEN Abnormal NONE SEEN [facility] Comment on above: Performed By: #### L LUIS NGA, CMP #### [facility] [address] [place] [address] Dr. Angela Aguero Crystals LM Nom (Urine sed) NONE SEEN Normal NONE SEEN [facility] Comment on above: Performed By: #### L NGA SMITH, CMP #### [facility] [address] [place] [address] Dr. Angela Aguero Epithelial cells LM Ql (Urine sed) RARE Normal NONE SEEN /RARE [facility] Comment on above: Performed By: #### L IPA NGA, CMP #### [facility] [address] [place] [address] Dr. Angela Aguero FINE GRANULAR CAST RARE Normal [facility] Comment on above: Performed By: #### L IPA, NGA, CMP #### [facility] [address] [address] [address] Angela Aguero HYALINE CAST RARE Normal [facility] Comment on above: Performed By: #### L IPA, NGA, CMP #### [facility] [address] [address] [address] Angela Aguero MUCOUS TRACE Abnormal NONE SEEN [facility] Comment on above: Performed By: #### L IPA, NGA, CMP #### [facility] [address] [address] [address] Angela Aguero RBC NONE SEEN Abnormal 0-2 [facility] Comment on above: Performed By: #### L IPA NGA, CMP #### [facility] [address] [place] [address] Dr. Angela Aguero WBC NONE SEEN Normal NONE SEEN [facility] Comment on above: Performed By: #### L IPA NGA, CMP #### [facility] [address] [place] [address] Dr. Angela Aguero AMYLASEon 11-18-2021 Amylase [Catalytic activity/Vol] 20 U/L Critically low 25-115 [facility] Comment on above: Performed By: #### L IPA NGA, CMP #### [facility] [address] [place] [address] Dr. Angela Aguero BILIRUBIN CONJUGATED (DIRECT )on 11-18-2021 BILI, CONJUGATED 0.4 mg/dL Critically high 0.0-0.2 [facility] Comment on above: Performed By: #### L IPA NGA, CMP #### [facility] [address] [address] [address] Angela Aguero CBC AUTO DIFFon 11-18-2021 BASO # 0.1 103/ul Normal 0.0-0.1 [facility] Comment on above: Performed By: #### L IPA NGA, CMP #### [facility] [address] [address] [address] Angela Aguero Basophils/100 WBC (Bld) 2.4 % Critically high 0.2-2.0 [facility] Comment on above: Performed By: #### L NGA SMITH, CMP #### [facility] [address] [place] [address] Dr. Angela Aguero EO # 0.0 103/ul Normal 0.0-0.7 [facility] Comment on above: Performed By: #### L NGA SMITH, CMP #### [facility] [address] [place] [address] Dr. Angela Aguero Eosinophils/100 WBC (Bld) 0.2 % Critically low 0.9-7.0 [facility] Comment on above: Performed By: #### L NGA SMITH CMP #### [facility] [address] [place] [address] Dr. Angela Aguero Erythrocyte distribution width (RBC) [Ratio] 12.8 % Normal 11.0-15.0 [facility] Comment on above: Performed By: #### L NGA SMITH CMP #### [facility] [address] [place] [address] Dr. Angela Aguero Hematocrit (Bld) [Volume fraction] 47.4 % Normal 36.0-48.0 [facility] Comment on above: Performed By: #### L NGA SMITH CMP #### [facility] [address] [place] [address] Dr. Angela Aguero Hemoglobin (Bld) [Mass/Vol] 16.6 g/dL Critically high 12.0-16.0 [facility] Comment on above: Performed By: #### L NGA SMITH, CMP #### [facility] [address] [place] [address] Dr. Angela Aguero IG # 0.02 10e3/ul Normal 0.00-0.03 [facility] Comment on above: Performed By: #### L NGA SMITH, CMP #### [facility] [address] [place] [address] Dr. Angela Aguero IG % 0.4 % Normal 0.0-0.5 [facility] Comment on above: Performed By: #### L NGA SMITH, CMP #### [facility] [address] [address] [address] Angela Aguero LYMPH # 0.9 103/ul Critically low 1.2-3.8 [facility] Comment on above: Performed By: #### L NGA SMITH, CMP #### [facility] [address] [address] [address] Angela Aguero Lymphocytes/100 WBC (Bld) 17.2 % Critically low 20.5-60.0 [facility] Comment on above: Performed By: #### L NGA SMITH, CMP #### [facility] [address] [address] [address] Angela Aguero MANUAL DIFF REQ NO Normal [facility] Comment on above: Performed By: #### L NGA SMITH, CMP #### [facility] [address] [place] [address] Dr. Angela Aguero MCH (RBC) [Entitic mass] 32.4 pg Normal 26.7-34.0 [facility] Comment on above: Performed By: #### L NGA SMITH, CMP #### [facility] [address] [place] [address] Dr. Angela Aguero MCHC (RBC) [Mass/Vol] 35.0 g/dL Normal 29.9-35.2 [facility] Comment on above: Performed By: #### L NGA SMITH, CMP #### [facility] [address] [place] [address] Dr. Angela Aguero MCV (RBC) [Entitic vol] 92.4 fL Normal 81.0-99.0 [facility] Comment on above: Performed By: #### L NGA SMITH, CMP #### [facility] [address] [place] [address] Dr. Angela Aguero MONO # 0.6 103/ul Normal 0.3-0.8 [facility] Comment on above: Performed By: #### L NGA SMITH, CMP #### [facility] [address] [place] [address] Dr. Angela Aguero Monocytes/100 WBC (Bld) 10.7 % Normal 1.7-12.0 [facility] Comment on above: Performed By: #### L NGA SMITH, CMP #### [facility] [address] [place] [address] Dr. Angela Aguero NEUT # 3.7 103/ul Normal 1.4-6.5 [facility] Comment on above: Performed By: #### L NGA SMITH, CMP #### [facility] [address] [place] [address] Dr. Angela Aguero Neutrophils/100 WBC (Bld) 69.1 % Normal 43.0-75.0 [facility] Comment on above: Performed By: #### L NGA SMITH, CMP #### [facility] [address] [place] [address] Dr. Angela Aguero Platelet mean volume (Bld) [Entitic vol] 10.1 fL Normal 9.5-13.5 [facility] Comment on above: Performed By: #### L NGA SMITH, CMP #### [facility] [address] [place] [address] Dr. Angela Aguero PLT 279 103/ul Normal 150-450 [facility] Comment on above: Performed By: #### L NGA SMITH, CMP #### [facility] [address] [place] [address] Dr. Angela Aguero RBC 5.13 106/ul Normal 4.20-5.40 [facility] Comment on above: Performed By: #### L NGA SMITH, CMP #### [facility] [address] [place] [address] Dr. Angela Aguero WBC 5.4 103/ul Normal 4.0-11.0 [facility] Comment on above: Performed By: #### L NGA SMITH, CMP #### [facility] [address] [place] [address] Dr. Angela Aguero Covid-19 PCR ([facility])on 11-07 SARS-CoV-2 (COVID-19) RNA GOPAL+probe Ql (Unsp spec) Not detected Normal NOT DETECTED [facility] Comment on above: Result Comment: When [...] for this test is supported by the [place] of [employer] and Human Service's declaration that [...] By: #### L NGA SMITH, CMP #### [facility] [address] [place] [address] Dr. Angela Aguero LIPASEon 11-18-2021 Lipase [Catalytic activity/Vol] 25.0 U/L Critically low 73.0-393.0 [facility] Comment on above: Performed By: #### L NGA SMITH, CMP #### [facility] [address] [place] [address] Dr. Angela Aguero PROF 14(COMP METB)on 022 Albumin [Mass/Vol] 4.4 g/dL Normal 3.4-5.0 [facility] Comment on above: Performed By: #### L NGA SMITH, CMP #### [facility] [address] [place] [address] Dr. Angela Aguero Albumin/Globulin [Mass ratio] 1.1 {ratio} Normal [facility] Comment on above: Performed By: #### L NGA SMITH, CMP #### [facility] [address] [place] [address] Dr. Angela Aguero ALP [Catalytic activity/Vol] 83 U/L Normal 46-116 [facility] Comment on above: Performed By: #### L NGA SMITH, CMP #### [facility] [address] [place] [address] Dr. Angela Aguero ALT [Catalytic activity/Vol] 95 U/L Critically high 14-59 [facility] Comment on above: Performed By: #### L NGA SMITH, CMP #### [facility] [address] [place] [address] Dr. Angela Aguero Anion gap [Moles/Vol] 20.2 mmol/L Normal Th [facility] Comment on above: Performed By: #### L NGA SMITH, CMP #### [facility] [address] [place] [address] Dr. Angela Aguero AST [Catalytic activity/Vol] 84 U/L Critically high 15-37 [facility] Comment on above: Performed By: #### L NGA SMITH, CMP #### [facility] [address] [place] [address] Dr. Angela Aguero Bilirubin [Mass/Vol] 1.1 mg/dL Critically high 0.2-1.0 [facility] Comment on above: Performed By: #### L NGA SMITH, CMP #### [facility] [address] [place] [address] Dr. Angela Aguero Calcium [Mass/Vol] 8.9 mg/dL Normal 8.5-10.1 [facility] Comment on above: Performed By: #### L NGA SMITH, CMP #### [facility] [address] [place] [address] Dr. Angela Aguero Chloride [Moles/Vol] 99 mmol/L Normal 98-107 [facility] Comment on above: Performed By: #### L NGA SMITH, CMP #### [facility] [address] [place] [address] Dr. Angela Aguero CO2 [Moles/Vol] 23.3 mmol/L Normal 21.0-32.0 [facility] Comment on above: Performed By: #### L NGA SMITH, CMP #### [facility] [address] [place] [address] Dr. Angela Aguero Creatinine [Mass/Vol] 0.97 mg/dL Normal 0.55-1.02 [facility] Comment on above: Performed By: #### L NGA SMITH, CMP #### [facility] [address] [address] [address] Angela Aguero EGFR-AF LATVIAN >60 Normal >=60 [facility] Comment on above: Performed By: #### L NGA SMITH, CMP #### [facility] [address] [address] [address] Angela Aguero EGFR-NON AF LATVIAN >60 Normal >=60 [facility] Comment on above: Performed By: #### L NGA SMITH, CMP #### [facility] [address] [address] [address] Angela Aguero Globulin (S) [Mass/Vol] 3.9 g/dL Normal [facility] Comment on above: Performed By: #### L NGA SMITH, CMP #### [facility] [address] [address] [address] Angela Aguero Glucose [Mass/Vol] 170 mg/dL Critically high 74-106 [facility] Comment on above: Performed By: #### L NGA SMITH, CMP #### [facility] [address] [place] [address] Dr. Angela Aguero Potassium [Moles/Vol] 3.5 mmol/L Normal 3.5-5.1 [facility] Comment on above: Performed By: #### L NGA SMITH, CMP #### [facility] [address] [place] [address] Dr. Angela Aguero Protein [Mass/Vol] 8.3 g/dL Critically high 6.4-8.2 [facility] Comment on above: Performed By: #### L NGA SMITH, CMP #### [facility] [address] [place] [address] Dr. Angela Aguero Sodium [Moles/Vol] 139 mmol/L Normal 136-145 [facility] Comment on above: Performed By: #### L GNA SMITH, CMP #### [facility] [address] [place] [address] Dr. Angela Aguero Urea nitrogen [Mass/Vol] 4.0 mg/dL Critically low 7.0-18.0 [facility] Comment on above: Performed By: #### L NGA SMITH, CMP #### [facility] [address] [address] [address] Angela Aguero Urea nitrogen/Creatinine [Mass ratio] 4.1 mg/mg Normal [facility] Comment on above: Performed By: #### L NGA SMITH, CMP #### [facility] [address] [address] [address] ABD/PELV W CONon [...] steatosis. 3. Small hiatal hernia. Normal [facility] ER URINE PROFILEon 2 Bilirubin Ql (U) Negative Normal NEGATIVE [facility] Comment on above: Performed By: #### L NGA SMITH, CMP #### [facility] [address] [address] [address] Angela Aguero Clarity (U) CLEAR Normal CLEAR [facility] Comment on above: Performed By: #### L NGA SMITH, CMP #### [facility] [address] [address] [address] Angela Aguero Color (U) LT. YELLOW Normal YELLOW [facility] Comment on above: Performed By: #### L IPA NGA, CMP #### [facility] [address] [address] [address] Angela CARRASCO A micrscopic examina tion will be performed if indicated. Normal [facility] Comment on above: Performed By: #### L IPA, NGA, CMP #### [facility] [address] [address] [address] Angela Aguero Glucose Ql (U) Negative Normal NEGATIVE [facility] Comment on above: Performed By: #### L IPA, NGA, CMP #### [facility] [address] [address] [address] Angela Aguero Hemoglobin Ql (U) Negative Normal NEGATIVE [facility] Comment on above: Performed By: #### L IPA NGA, CMP #### [facility] [address] [place] [address] Dr. Angela Aguero Ketones Ql (U) Negative Normal NEGATIVE [facility] Comment on above: Performed By: #### L IPA NGA, CMP #### [facility] [address] [place] [address] Dr. Angela Aguero LEUKOCYTES Negative Normal NEGATIVE [facility] Comment on above: Performed By: #### L IPA NGA, CMP #### [facility] [address] [place] [address] Dr. Angela Aguero Nitrite Ql (U) Negative Normal NEGATIVE [facility] Comment on above: Performed By: #### L IPA NGA, CMP #### [facility] [address] [address] [address] Angela Aguero pH (U) 6.0 [pH] Normal 5-9 [facility] Comment on above: Performed By: #### L IPA NGA, CMP #### [facility] [address] [place] [address] Dr. Angela Aguero SPEC GRAVITY <=1.005 Abnormal 1.005-<=1. 025 [facility] Comment on above: Performed By: #### L IPA NGA, CMP #### [facility] [address] [address] [address] Angela Aguero UA PROTEIN Negative Normal NEGATIVE/ TRACE [facility] Comment on above: Performed By: #### L NGA SMITH, CMP #### [facility] [address] [place] [address] Dr. Angela Aguero UR MICRO IND NOT INDICATED Normal [facility] Comment on above: Performed By: #### L NGA SMITH, CMP #### [facility] [address] [place] [address] Dr. Angela Aguero Urobilinogen Qn (U) 0.2 {Concetta'U}/dL Normal 0.2 - 1. 0 [facility] Comment on above: Performed By: #### L NGA SMITH, CMP #### [facility] [address] [place] [address] Dr. Angela Aguero LACTATE/LACTIC ACIDon 2021 Lactate [Moles/Vol] 1.1 mmol/L Normal 0.4-1.9 [facility] Comment on above: Performed By: #### L NGA SMITH, CMP #### [facility] [address] [place] [address] Dr. Angela Aguero CBC AUTO DIFFon 11-10-2021 BASO # 0.1 103/ul Normal 0.0-0.1 [facility] Comment on above: Performed By: #### L NGA SMITH, CMP #### [facility] [address] [place] [address] Dr. Angela Aguero Basophils/100 WBC (Bld) 1.7 % Normal 0.2-2.0 [facility] Comment on above: Performed By: #### L NGA SMITH, CMP #### [facility] [address] [place] [address] Dr. Angela Aguero EO # 0.1 103/ul Normal 0.0-0.7 [facility] Comment on above: Performed By: #### L LUIS NGA, CMP #### [facility] [address] [place] [address] Dr. Angela Aguero Eosinophils/100 WBC (Bld) 1.0 % Normal 0.9-7.0 [facility] Comment on above: Performed By: #### L NGA SMITH, CMP #### [facility] [address] [place] [address] Dr. Angela Aguero Erythrocyte distribution width (RBC) [Ratio] 13.1 % Normal 11.0-15.0 [facility] Comment on above: Performed By: #### L NGA SMITH, CMP #### [facility] Laboratory [address] [place] [address] Dr. Angeal Aguero Hematocrit (Bld) [Volume fraction] 46.8 % Normal 36.0-48.0 [facility] Comment on above: Performed By: #### L NGA SMITH, CMP #### [facility] [address] [place] [address] Dr. Angela Aguero Hemoglobin (Bld) [Mass/Vol] 16.3 g/dL Critically high 12.0-16.0 [facility] Comment on above: Performed By: #### L NGA SMITH, CMP #### [facility] [address] [place] [address] Dr. Angela Aguero IG # 0.02 10e3/ul Normal 0.00-0.03 [facility] Comment on above: Performed By: #### L NGA SMITH, CMP #### [facility] [address] [place] [address] Dr. Angela Aguero IG % 0.3 % Normal 0.0-0.5 [facility] Comment on above: Performed By: #### L NGA SMITH, CMP #### [facility] [address] [place] [address] Dr. Angela Aguero LYMPH # 1.3 103/ul Normal 1.2-3.8 [facility] Comment on above: Performed By: #### L NGA SMITH, CMP #### [facility] [address] [place] [address] Dr. Angela Aguero Lymphocytes/100 WBC (Bld) 20.9 % Normal 20.5-60.0 [facility] Comment on above: Performed By: #### L NGA SMITH, CMP #### [facility] [address] [place] [address] Dr. Angela Aguero MANUAL DIFF REQ NO Normal [facility] Comment on above: Performed By: #### L NGA SMITH, CMP #### [facility] [address] [place] [address] Dr. Angela Aguero MCH (RBC) [Entitic mass] 32.2 pg Normal 26.7-34.0 [facility] Comment on above: Performed By: #### L NGA SMITH, CMP #### [facility] [address] [place] [address] Dr. Angela Aguero MCHC (RBC) [Mass/Vol] 34.8 g/dL Normal 29.9-35.2 [facility] Comment on above: Performed By: #### L NGA SMITH, CMP #### [facility] [address] [place] [address] Dr. Angela Aguero MCV (RBC) [Entitic vol] 92.5 fL Normal 81.0-99.0 [facility] Comment on above: Performed By: #### L NGA SMITH, CMP #### [facility] [address] [place] [address] Dr. Angela Aguero MONO # 0.6 103/ul Normal 0.3-0.8 [facility] Comment on above: Performed By: #### L NGA SMITH, CMP #### [facility] [address] [place] [address] Dr. Angela Aguero Monocytes/100 WBC (Bld) 10.7 % Normal 1.7-12.0 [facility] Comment on above: Performed By: #### L NGA SMITH, CMP #### [facility] [address] [place] [address] Dr. Angela Aguero NEUT # 3.9 103/ul Normal 1.4-6.5 [facility] Comment on above: Performed By: #### L NGA SMITH, CMP #### [facility] [address] [place] [address] Dr. Angela Aguero Neutrophils/100 WBC (Bld) 65.4 % Normal 43.0-75.0 [facility] Comment on above: Performed By: #### L NGA SMITH, CMP #### [facility] [address] [address] [address] Angela Aguero Platelet mean volume (Bld) [Entitic vol] 9.6 fL Normal 9.5-13.5 [facility] Comment on above: Performed By: #### L NGA SMITH, CMP #### [facility] [address] [address] [address] Angela Aguero PLT 224 103/ul Normal 150-450 [facility] Comment on above: Performed By: #### L NGA SMITH, CMP #### [facility] [address] [address] [address] Angela Aguero RBC 5.06 106/ul Normal 4.20-5.40 [facility] Comment on above: Performed By: #### L NGA SMITH, CMP #### [facility] [address] [place] [address] Dr. Angela Aguero WBC 6.0 103/ul Normal 4.0-11.0 [facility] Comment on above: Performed By: #### L NGA SMITH, CMP #### [facility] [address] [place] [address] Dr. Angela Aguero LACTATE/LACTIC ACIDon 2021 Lactate [Moles/Vol] 3.7 mmol/L Critically high 0.4-1.9 [facility] Comment on above: Performed By: #### L NGA SMITH, CMP #### [facility] [address] [place] [address] Dr. Angela Aguero LIPASEon 11-10-2021 Lipase [Catalytic activity/Vol] 33.0 U/L Critically low 73.0-393.0 [facility] Comment on above: Performed By: #### L NGA SMITH, CMP #### [facility] [address] [place] [address] Dr. Angela Aguero PREG HCG QUALon 11-10-2021 , QUAL Negative Normal NEGATIVE [facility] Comment on above: Performed By: #### P REG #### [facility] [address] [place] [address] Dr. Angela Aguero PROF 14(COMP METB)on 022 Albumin [Mass/Vol] 4.5 g/dL Normal 3.4-5.0 [facility] Comment on above: Performed By: #### L NGA SMITH, CMP #### [facility] [address] [address] [address] Angela Aguero Albumin/Globulin [Mass ratio] 1.1 {ratio} Normal [facility] Comment on above: Performed By: #### L NGA SMITH, CMP #### [facility] [address] [address] [address] Angela Aguero ALP [Catalytic activity/Vol] 112 U/L Normal 46-116 [facility] Comment on above: Performed By: #### L NGA SMITH, CMP #### [facility] [address] [address] [address] Angela Aguero ALT [Catalytic activity/Vol] 154 U/L Critically high 14-59 [facility] Comment on above: Performed By: #### L NGA SMITH, CMP #### [facility] [address] [address] [address] Angela Aguero Anion gap [Moles/Vol] 17.8 mmol/L Normal [facility] Comment on above: Performed By: #### L NGA SMITH, CMP #### [facility] [address] [place] [address] Dr. Angela Aguero AST [Catalytic activity/Vol] 112 U/L Critically high 15-37 [facility] Comment on above: Performed By: #### L NGA SMITH, CMP #### [facility] [address] [address] [address] Angela Aguero Bilirubin [Mass/Vol] 0.7 mg/dL Normal 0.2-1.0 [facility] Comment on above: Performed By: #### L NGA SMITH, CMP #### [facility] [address] [address] [address] Angela Aguero Calcium [Mass/Vol] 9.7 mg/dL Normal 8.5-10.1 [facility] Comment on above: Performed By: #### L NGA SMITH, CMP #### [facility] [address] [address] [address] Angela Aguero Chloride [Moles/Vol] 102 mmol/L Normal 98-107 [facility] Comment on above: Performed By: #### L NGA SMITH, CMP #### [facility] [address] [address] [address] Angela Aguero CO2 [Moles/Vol] 26.6 mmol/L Normal 21.0-32.0 [facility] Comment on above: Performed By: #### L NGA SMITH, CMP #### [facility] [address] [address] [address] Angela Aguero Creatinine [Mass/Vol] 1.00 mg/dL Normal 0.55-1.02 [facility] Comment on above: Performed By: #### L NGA SMITH, CMP #### [facility] [address] [place] [address] Dr. Angela Aguero EGFR-AF LATVIAN >60 Normal >=60 [facility] Comment on above: Performed By: #### L NGA SMITH, CMP #### [facility] [address] [place] [address] Dr. Angela Aguero EGFR-NON AF LATVIAN >60 Normal >=60 [facility] Comment on above: Performed By: #### L GNA SMITH, CMP #### [facility] [address] [place] [address] Dr. Angela Aguero Globulin (S) [Mass/Vol] 4.1 g/dL Normal [facility] Comment on above: Performed By: #### L NGA SMITH, CMP #### [facility] [address] [place] [address] Dr. Angela Aguero Glucose [Mass/Vol] 170 mg/dL Critically high 74-106 [facility] Comment on above: Performed By: #### L NGA SMITH, CMP #### [facility] [address] [place] [address] Dr. Angela Aguero Potassium [Moles/Vol] 3.4 mmol/L Critically low 3.5-5.1 [facility] Comment on above: Performed By: #### L NGA SMITH, CMP #### [facility] [address] [place] [address] Dr. Angela Aguero Protein [Mass/Vol] 8.6 g/dL Critically high 6.4-8.2 [facility] Comment on above: Performed By: #### L NGA SMITH, CMP #### [facility] [address] [place] [address] Dr. Angela Aguero Sodium [Moles/Vol] 143 mmol/L Normal 136-145 [facility] Comment on above: Performed By: #### L NGA SMITH, CMP #### [facility] [address] [place] [address] Dr. Angela Aguero Urea nitrogen [Mass/Vol] 4.0 mg/dL Critically low 7.0-18.0 [facility] Comment on above: Performed By: #### L NGA SMITH, CMP #### [facility] [address] [place] [address] Dr. Angela Aguero Urea nitrogen/Creatinine [Mass ratio] 4.0 mg/mg Normal [facility] Comment on above: Performed By: #### L NGA SMITH, CMP #### [facility] [address] [place] [address] Dr. Angela Aguero PROTIMEon 11-10-2021 INR Coag (PPP) [Relative time] 1.13 {INR} Normal [facility] Comment on above: Performed By: #### L NGA SMITH, CMP #### [facility] [address] [place] [address] Dr. Angela Aguero INR GUIDELINES SEE BELOW Normal [facility] Comment on above: Result Comment: VARSHA RED INR: 2.0 - 3.0 CONDITIONS NOT LISTED BELOW 2.5 - 3.5 FOR PROSTHETIC HEART VALVE REPLACEMENT 2.5 - 3.5 RECURRENT THROMBOSIS Performed By: #### L NGA SMITH, CMP #### [facility] [address] [place] [address] Dr. Angela Aguero PT Coag (PPP) [Time] 12.1 s Critically high 9.0-11.6 [facility] Comment on above: Performed By: #### L NGA SMITH, CMP #### [facility] [address] [place], [place] [address] Dr. Angela Aguero PTTon 11-10-2021 aPTT Coag (Bld) [Time] 30.2 s Normal 22.3-36.2 [facility] Comment on above: Performed By: #### L NGA SMITH, CMP #### [facility] [address] [place], [place] [address] Dr. Angela Aguero Automated epithelial cells c ount in urine sediment (number/area)Ordered By: Hal Orozco on 11-06-2021 Epithelial cells Auto (Urine sed) [#/Area] 10-19 [HPF] 0-2 [facility] Automated erythrocytes count in urine sediment (number/area)Ordered By: Hal Orozco on 11-06-2021 RBC Auto (Urine sed) [#/Area] 0-1 [HPF] 0-4 [facility] Automated leukocytes count i n urine sediment (number/area)Ordered By: Hal Orozco on 11-06-2021 WBC Auto (Urine sed) [#/Area] 1-2 [HPF] 0-4 [facility] Basophils Auto (Bld) [#/Vol] Ordered By: Hal Orozco on 11-06-2021 Basophils (Bld) [#/Vol] 0.0 10*3/uL 0.0-0.2 [facility] Basophils/100 WBC Auto (Bld) Ordered By: Hal Orozco on 11-06-2021 Basophils/100 WBC (Bld) 0.3 % . [facility] Bilirubin Auto test strip Ql (U)Ordered By: Hal Orozco on 11-06-2021 Bilirubin Ql (U) 1+ Negative [facility] Blood hemoglobin measurement (mass/volume)Ordered By: Hal Orozco on 11-06-2021 Hemoglobin (Bld) [Mass/Vol] 15.7 g/dL 11.8-15.4 [facility] Blood leukocytes automated c ount (number/volume)Ordered By: Hal Orozco on 11-06-2021 WBC (Bld) [#/Vol] 9.8 10*3/uL 4.5-11.0 [facility] Body fluid albumin measureme nt (mass/volume)Ordered By: Hal Orozco on 11-06-2021 Albumin (Body fld) [Mass/Vol] 4.7 g/dL 3.2-5.5 [facility] Creatinine and Glomerular fi ltration rate.predicted panel (S/P/Bld)Ordered By: Hal Orozco on 11-06-2021 Creatinine [Mass/Vol] 0.99 mg/dL 0.44-1.03 [facility] Direct bilirubin measurement Ordered By: Hal Orozco on 11-06-2021 Bilirubin.direct [Mass/Vol] 0.3 mg/dL 0.0-0.4 [facility] Eosinophils Auto (Bld) [#/Vo l]Ordered By: Hal Orozco on 11-06-2021 Eosinophils (Bld) [#/Vol] 0.0 10*3/uL 0.0-0.45 [facility] Eosinophils/100 WBC Auto (Bl d)Ordered By: Hal Orozco on 11-06-2021 Eosinophils/100 WBC (Bld) 0.0 % . [facility] Erythrocyte distribution wid th Auto (RBC) [Ratio]Ordered By: Hal Orozco on 11-06-2021 Erythrocyte distribution width (RBC) [Ratio] 14.3 % 11.9-15.3 [facility] Estimated glomerular filtrat ion rate (GFR) non- AmericanOrdered By: Hal Orozco on 11-06-2021 GFR/1.73 sq M.predicted among non-blacks MDRD (S/P/Bld) [Vol rate/Area] > 60 mL/Min [facility] Globulin Calc (S) [Mass/Vol] Ordered By: Hal Orozco on 11-06-2021 Globulin (S) [Mass/Vol] 3.4 g/dL [facility] HCG ( test) IA.rapi d Ql (U)Ordered By: Hal Orozco on 11-06-2021 HCG ( test) Ql (U) Negative [facility] Hematocrit Auto (Bld) [Volum e fraction]Ordered By: Hal Orozco on 11-06-2021 Hematocrit (Bld) [Volume fraction] 45.7 % 34.0-46.4 [facility] Ketones Auto test strip (U) [Mass/Vol]Ordered By: Hal Orozco on 11-06-2021 Ketones (U) [Mass/Vol] 1+ Negative [facility] - Chemistry and C hemistry - challengeOrdered By: Hal Orozco on 11-06-2021 Lipase [Catalytic activity/Vol] 18.0 U/L 22-51 [facility] Laboratory - Hematology and Cell countsOrdered By: Hal Orozco on 11-06-2021 Nucleated RBC/100 WBC (Bld) [Ratio] 0.1 % 0-0.5 [facility] Lymphocytes Auto (Bld) [#/Vo l]Ordered By: Hal Orozco on 11-06-2021 Lymphocytes (Bld) [#/Vol] 0.4 10*3/uL 1.00-4.8 [facility] Lymphocytes/100 WBC Auto (Bl d)Ordered By: Hal Orozco on 11-06-2021 Lymphocytes/100 WBC (Bld) 3.8 % . [facility] MCH Auto (RBC) [Entitic mass ]Ordered By: Hal Orozco on 11-06-2021 MCH (RBC) [Entitic mass] 32.4 pg 24.7-34.3 [facility] MCHC Auto (RBC) [Mass/Vol]Or dered By: Hla Orozco on 11-06-2021 MCHC (RBC) [Mass/Vol] 34.4 g/dL 32.0-35.0 [facility] MCV Auto (RBC) [Entitic vol] Ordered By: Hal Orozco on 11-06-2021 MCV (RBC) [Entitic vol] 94.2 fL 80-100 [facility] Monocytes Auto (Bld) [#/Vol] Ordered By: Hal Orozco on 11-06-2021 Monocytes (Bld) [#/Vol] 0.3 10*3/uL 0.0-0.8 [facility] Monocytes/100 WBC Auto (Bld) Ordered By: Hal Orozco on 11-06-2021 Monocytes/100 WBC (Bld) 2.9 % . [facility] Mucus LM Ql (Urine sed)Order ed By: Hal Orozco on 11-06-2021 Mucus Ql (Urine sed) 2+ [LPF] [facility] Neutrophils Auto (Bld) [#/Vo l]Ordered By: Hal Orozco on 11-06-2021 Neutrophils (Bld) [#/Vol] 9.1 10*3/uL 1.8-7.7 [facility] Neutrophils/100 WBC Auto (Bl d)Ordered By: Hal Orozco on 11-06-2021 Neutrophils/100 WBC (Bld) 93.0 % . [facility] No Panel InformationOrdered By: Hal Orozco on 11-06-2021 Estimated GFR () > 60 mL/Min [facility] Comment on above: GFR estimated refere nce range: According to KDOQI guidelines, <60 ml/min/1.73m2 is sufficient to diagnose a patient with chronic kidney disease. Pharmacy Creatinine Clearance (Chem 72.84 [facility] Platelet mean volume Auto (B ld) [Entitic vol]Ordered By: Hal Orozco on 11-06-2021 Platelet mean volume (Bld) [Entitic vol] 7.5 fL 6.3-10.7 [facility] Platelets Auto (Bld) [#/Vol] Ordered By: Hal Orozco on 11-06-2021 Platelets (Bld) [#/Vol] 270 10*3/uL 150-450 [facility] Protein Auto test strip (U) [Mass/Vol]Ordered By: Hal Orozco on 11-06-2021 Protein (U) [Mass/Vol] 30 mg/dL Negative [facility] Protein [Mass/volume] in Ser um or PlasmaOrdered By: Hal Orozco on 11-06-2021 Protein [Mass/Vol] 8.1 g/dL 6.1-7.9 [facility] RBC Auto (Bld) [#/Vol]Ordere d By: Hal Orozco on 11-06-2021 RBC (Bld) [#/Vol] 4.85 10*6/uL 3.60-5.00 [facility] Serum or plasma alanine montes otransferase measurement without P-5'-P (enzymatic activiOrdered By: Hal Orozco on 11-06-2021 ALT No additional P-5'-P [Catalytic activity/Vol] 64 U/L 10-60 [facility] Serum or plasma albumin/glob ulin mass ratioOrdered By: Hal Orozco on 11-06-2021 Albumin/Globulin [Mass ratio] 1.4 {ratio} [facility] Serum or plasma alkaline florencio sphatase measurement (enzymatic activity/volume)Ordered By: Hal Orozco on 11-06-2021 ALP [Catalytic activity/Vol] 75 U/L 32-92 [facility] Serum or plasma aspartate am inotransferase measurement (enzymatic activity/volume)Ordered By: Hal Orozco on 11-06-2021 AST [Catalytic activity/Vol] 101 U/L 10-42 [facility] Serum or plasma calcium archie urement (mass/volume)Ordered By: Hal Orozco on 11-06-2021 Calcium [Mass/Vol] 9.3 mg/dL 8.2-10.2 [facility] Serum or plasma chloride luz surement (moles/volume)Ordered By: Hal Orozco on 11-06-2021 Chloride [Moles/Vol] 101 mmol/L 95-114 [facility] Serum or plasma glucose archie urement (mass/volume)Ordered By: Hal Orozco on 11-06-2021 Glucose [Mass/Vol] 205 mg/dL 70-100 [facility] Comment on above: ADA recommended refe [...] Orozco on 11-06-2021 Bilirubin.indirect [Mass/Vol] 1.0 mg/dL [facility] Serum or plasma potassium me asurement (moles/volume)Ordered By: Hal Orozco on 11-06-2021 Potassium [Moles/Vol] 3.8 mmol/L 3.5-5.1 [facility] Serum or plasma sodium measu rement (moles/volume)Ordered By: Hal Orozco on 11-06-2021 Sodium [Moles/Vol] 142 mmol/L 136-146 [facility] Serum or plasma total biliru bin measurement (mass/volume)Ordered By: Hal Orozco on 11-06-2021 Bilirubin [Mass/Vol] 1.3 mg/dL 0.3-1.2 [facility] Comment on above: Samples from patient s who have taken Naproxen have shown spurious elevation in Total Bilirubin levels. A metabolite of Naproxen, O-desmethylnaproxen, has been shown to interfere with the Renetta method for measuring Total Bilirubin. Serum or plasma total carbon dioxide measurement (moles/volume)Ordered By: Hal Orozco on 11-06-2021 CO2 [Moles/Vol] 21.6 mmol/L 22.0-30.0 [facility] Serum or plasma urea nitroge n measurement (mass/volume)Ordered By: Hal Orozco on 11-06-2021 Urea nitrogen [Mass/Vol] 4 mg/dL 9-23 [facility] Urine appearanceOrdered By: Hal Orozco on 11-06-2021 Appearance (U) Clear Clear [facility] Urine bacteria detection by automated methodOrdered By: Hal Orozco on 11-06-2021 Bacteria Auto Ql (U) 1+ None Seen [facility] Urine colorOrdered By: Jimbo Orozco on 11-06-2021 Color (U) Yellow Yellow [facility] Urine glucose measurement by automated test strip (mass/volume)Ordered By: Hal Orozco on 11-06-2021 Glucose Auto test strip (U) [Mass/Vol] Normal mg/dL Normal [facility] Urine hemoglobin detection b y automated test stripOrdered By: Hal Orozco on 11-06-2021 Hemoglobin Auto test strip Ql (U) Negative Negative [facility] Urine leukocyte esterase det ection by automated test stripOrdered By: Hal Orozco on 11-06-2021 Leukocyte esterase Auto test strip Ql (U) Negative Negative [facility] Urine nitrite detection by a utomated test stripOrdered By: Hal Orozco on 11-06-2021 Nitrite Auto test strip Ql (U) Negative Negative [facility] Urobilinogen Auto test strip (U) [Mass/Vol]Ordered By: Hal Orozco on 11-06-2021 Urobilinogen (U) [Mass/Vol] mg/dL Normal [facility] pH Auto test strip (U)Ordere d By: Hal Orozco on 11-06-2021 pH (U) 1.025 [pH] 1.001-1.03 0 [facility] pH (U) 6.5 [pH] 5.0-9.0 [facility] Vital Signs Date Time Vital Sign Value Performing Clinician Facility 01-22-2024 08:00-0400 Body temperature 98.1 [degF] CATIA Blanca Work Phone: [facility] 01-22-2024 08:00-0400 Diastolic blood pressure 78 mm[Hg] CATIA Blanca Work Phone: [facility] 01-22-2024 08:00-0400 Heart rate 116 /min CATIA Blanca Work Phone: [facility] 01-22-2024 08:00-0400 Respiratory rate 18 /min CATIA Blanca Work Phone: [facility] 01-22-2024 08:00-0400 SaO2% (BldA) [Mass fraction] 99 % CATIA Blanca Work Phone: [facility] 01-22-2024 08:00-0400 Systolic blood pressure 109 mm[Hg] CATIA Blanca Work Phone: [facility] 01-21-2024 10:58-0400 Body weight 62.09 kg CATIA Blanca Work Phone: [facility] 01-18-2024 15:54-0400 Body height 170.18 cm CATIA Blanca Work Phone: [facility] 01-15-2024 10:17-0400 Diastolic blood pressure 108 mm[Hg] CATIA Blanca Work Phone: [facility] 01-15-2024 10:17-0400 Heart rate 73 /min [facility] KAY STITCHERTodd Blanca Work Phone: [facility] 01-15-2024 10:17-0400 Respiratory rate 18 /min [facility] KAY STITCHERTodd Blanca Work Phone: [facility] 01-15-2024 10:17-0400 SaO2% (BldA) [Mass fraction] 95 % [facility] KAY STITCHERTodd Blanca Work Phone: [facility] 01-15-2024 10:17-0400 Systolic blood pressure 148 mm[Hg] CATIA Blanca Work Phone: [facility] 01-15-2024 08:59-0400 Body temperature 98.6 [degF] CATIA Blanca Work Phone: [facility] 06-14-2023 14:27-0500 Body height 167.64 cm CATIA Blanca Work Phone: [facility] 06-14-2023 14:27-0500 Body mass index (BMI) [Ratio] 22 kg/m2 [facility] KAY STITCHERTodd Blanca Work Phone: [facility] 06-14-2023 14:27-0500 Body weight 61.91 kg CATIA Blanca Work Phone: [facility] 06-14-2023 14:27-0500 Diastolic blood pressure 85 mm[Hg] CATIA Blanca Work Phone: [facility] 06-14-2023 14:27-0500 Heart rate 94 /min CATIA Blanca Work Phone: [facility] 06-14-2023 14:27-0500 Respiratory rate 18 /min CATIA Blanca Work Phone: [facility] 06-14-2023 14:27-0500 SaO2% (BldA) [Mass fraction] 100 % [facility] KAY STITCHERTodd Blanca Work Phone: [facility] 06-14-2023 14:27-0500 Systolic blood pressure 132 mm[Hg] MC KAY STITCHER Avery Blanca Work Phone: [facility] 03-27-2023 10:45-0500 Body height 167.64 cm Becky Scally Other [facility] 03-27-2023 10:45-0500 Body mass index (BMI) [Ratio] 21.93 kg/m2 Becky Scally Other [facility] Other 03-27-2023 10:45-0500 Body weight 61.64 kg Becky Scally Other [facility] 03-27-2023 10:45-0500 Diastolic blood pressure 80 mm[Hg] Becky Scally Other [facility] 03-27-2023 10:45-0500 Respiratory rate 16 /min Becky Scally Other [facility] Other 03-27-2023 10:45-0500 SaO2% (BldA) [Mass fraction] 100 % Becky Scally Other [facility] Other 03-27-2023 10:45-0500 Systolic blood pressure 125 mm[Hg] Becky Scally Other [facility] 02-01-2022 23:07-0400 Diastolic blood pressure 103 mm[Hg] Kaylinn Dokken [facility] 02-01-2022 23:07-0400 Heart rate 67 /min Kaylinn Dokken [facility] 02-01-2022 23:07-0400 Respiratory rate 15 /min Kaylinn Dokken [facility] 02-01-2022 23:07-0400 SaO2% (BldA) [Mass fraction] 97 % Zaireylinn Dokken [facility] 02-01-2022 23:07-0400 Systolic blood pressure 164 mm[Hg] Kaylinn Dokken [facility] 02-01-2022 21:27-0400 Body temperature 98.24 [degF] Zaireylinn Dokken [facility] 02-01-2022 21:27-0400 Diastolic blood pressure 120 mm[Hg] Zaireylinn Dokken [facility] 02-01-2022 21:27-0400 Heart rate 111 /min Zaireylinn Dokken [facility] 02-01-2022 21:27-0400 Respiratory rate 20 /min Zaireylinn Dokken [facility] 02-01-2022 21:27-0400 SaO2% (BldA) [Mass fraction] 98 % Charaninn Dokken [facility] 02-01-2022 21:27-0400 Systolic blood pressure 196 mm[Hg] Charaninn Dokken [facility] 12-28-2021 08:56-0400 Body height 167.64 cm [facility] Work Phone: [facility] 12-28-2021 08:56-0400 Body weight 71.66 kg [facility] Work Phone: [facility] 12-23-2021 09:40-0400 Diastolic blood pressure 87 mm[Hg] [facility] Work Phone: [facility] 12-23-2021 09:40-0400 Heart rate 88 /min Services [facility] [address] Wireles Work Phone: [facility] 12-23-2021 09:40-0400 Respiratory rate 18 /min [facility] Work Phone: [facility] 12-23-2021 09:40-0400 SaO2% (BldA) [Mass fraction] 100 % [facility] Work Phone: [facility] 12-23-2021 09:40-0400 Systolic blood pressure 140 mm[Hg] [facility] Work Phone: [facility] 12-23-2021 07:44-0400 Body height 167.64 cm [facility] Work Phone: [facility] 12-23-2021 07:44-0400 Body weight 68.03 kg [facility] Work Phone: [facility] 11-06-2021 14:00-0400 Diastolic blood pressure 82 mm[Hg] [facility] Work Phone: [facility] 11-06-2021 14:00-0400 Heart rate 102 /min [facility] Work Phone: [facility] 11-06-2021 14:00-0400 Respiratory rate 20 /min [facility] Work Phone: [facility] 11-06-2021 14:00-0400 SaO2% (BldA) [Mass fraction] 97 % [facility] Work Phone: [facility] 11-06-2021 14:00-0400 Systolic blood pressure 123 mm[Hg] [facility] Work Phone: [facility] 11-06-2021 00:00-0400 Body height 167.64 cm [facility] Work Phone: [facility] 11-06-2021 00:00-0400 Body weight 70.3 kg [facility] Work Phone: [facility] 11-05-2021 23:51-0400 Body temperature 98 [degF] [facility] Work Phone: [facility] Encounters Encounter Date Encounter Type Care Provider Facility Start: 01-16-2024 Non-patient / Non-visit MC KAY STITCHER Reji jimenez Evangelist Work Phone: [facility] Work Phone: Start: 01-15-2024 End: 01-22-2024 Evaluation and management of inpatient MC KAY STITCHERTodd Baldwin Evangelist Work Phone: [facility] [place] [address] Work Phone: Start: 11-27-2023 End: 11-30-2023 Clinisync Result Encounter Shaikh Jonatan OROURKE Work Phone: [facility] Unsolicited Start: 11-27-2023 End: 11-30-2023 Clinisync Result Encounter Shaikh Jonatan OROURKE Work Phone: [facility] External [facility] Unsolicited Start: 11-26-2023 End: 12-01-2023 Non-patient / Non-visit MC KAY STITCHERTodd Blanca Work Phone: [facility] Work Phone: Start: 11-22-2023 Non-patient / Non-visit MC KAY STITCHER Reji jimenez Evangelist Work Phone: [facility] Work Phone: Start: 11-22-2023 ambulatory Avery Blanca Facili ty:[facility] Start: 11-22-2023 Registered Recurring MC KAY STITCHER Ez reji Evangelist Work Phone: [facility]- [facility] Start: 08-14-2023 End: 08-14-2023 ambulatory Avery Babb Blanca [facility] Work Phone: Start: 08-14-2023 End: 08-14-2023 Departed Referred CATIA Blanca Work Phone: [facility] Start: 06-14-2023 End: 06-14-2023 Patient encounter procedure MC KAY STITCHERTodd Blanca Work Phone: [facility] Physician [facility] Work Phone: Start: 03-27-2023 FQHC visit new patient Becky beck [facility] Start: 03-27-2023 End: 03-27-2023 Discharged Recurring CATIA Blanca Work Phone: [facility] Work Phone: Start: 03-27-2023 End: 03-27-2023 ambulatory CATIA Blanca Work Phone: [facility] Other Start: 03-27-2023 End: 03-27-2023 Patient encounter procedure CATIA Blanca Work Phone: [facility] Work Phone: Start: 01-19-2023 ambulatory Aung Saldaña [facility] ty:[facility] Start: 10-21-2022 End: 10-21-2022 Emergency department patient visit Thanh Bal Facility:[facility] Start: 03-26-2022 End: 03-26-[address] DEON MCGUIRE Facility: Start: 02-01-2022 End: 02-02-2022 Emergency department patient visit DO Judith Mock Facility:[facility] Start: 02-01-2022 End: 02-02-2022 Emergency department patient visit Judith Mock [facility] Start: 01-31-2022 End: 05-02-2022 ambulatory Varinder Ang Facility:[facility] Start: 01-18-2022 End: 01-18-2022 ambulatory Services [facility] Work Phone: [facility] Work Phone: Start: 01-18-2022 End: 01-18-2022 Patient encounter procedure Services [facility] Work Phone: [facility] [place] Start: 12-28-2021 End: 12-28-2021 Patient encounter procedure Services [facility] Work Phone: [facility] [place] Start: 12-23-2021 End: 12-23-2021 Patient encounter procedure Services [employer] Phone: [facility] [place] Start: 11-25-2021 End: 11-25-2021 Departed Referred Services [employer] Phone: [facility] Start: 11-18-2021 End: 11-20-[address] DOCTOR SALGADO Facility:[facility] Start: 11-10-2021 End: 11-11-2021 ambulatory MAGGY WORLEY Facility:[facility] Start: 11-05-2021 End: 11-06-2021 Emergency department patient visit Services [employer] Phone: [facility]-Emergency Room Procedures Date Procedure Procedure Detail Performing Clinician Start: 11-27-2023 Bacteria identified in Urine by Culture Shaikh Jonatan OROURKE Work Phone: Start: 12-28-2021 MRI of thoracic spin e with contrast [facility] [employer] Phone: Start: 12-28-2021 XR pre/post mri xray Se [employer] Phone: Start: 12-28-2021 MRI of lumbar spine with contrast [facility] [employer] Phone: Start: 12-23-2021 MRI of head Services [facility] [address] Work Phone: Aerobic microbial culture Se [facility] [employer] Phone: Anaerobic microbial culture [facility] [employer] Phone: Investigation of transfusion reaction [facility] [employer] Phone: Plan of Treatment Date Care Activity Detail Author Start: 01-22-2024 [facility] Start: 01-18-2024 Referral to clinical entry driver operator [facility] Start: 01-15-2024 Referral to Supervisor [employer] [facility] Start: 01-15-2024 Hospital admission [facility] Start: 01-18-2022 HORSE WRANGLER antibody measurement [facility] Start: 01-18-2022 [facility] Start: 12-23-2021 [facility] Start: 12-23-2021 Cerebrospinal fluid culture [facility] Work Phone: Start: 12-23-2021 [facility] Start: 12-23-2021 Lumbar puncture usin g fluoroscopic guidance [facility] Work Phone: Start: 11-25-2021 End: 11-25-2021 Departed Referred Departed Referred [facility] Albumin [Mass/volume ] in Cerebral spinal fluid [facility] Work Phone: Albumin [Mass/volume ] in Serum or Plasma [facility] Work Phone: Albumin/Globulin ratio [facility] Work Phone: Bacteria identified in Unspecified specimen by Aerobe culture [facility] Work Phone: Bacteria identified in Unspecified specimen by Anaerobe culture [facility] Work Phone: Cell count, cerebros alexus fluid [facility] Work Phone: Centromere protein B Ab [Units/volume] in Serum [facility] Work Phone: Cerebrospinal fluid examination [facility] Work Phone: Cerebrospinal fluid IgG ratio and IgG index [facility] Work Phone: Chromatin Ab [Units/ volume] in Serum or Plasma [facility] Work Phone: Comprehensive metabo lic 2000 panel - Serum or Plasma [facility] DNA double strand Ab [Units/volume] in Serum [facility] Work Phone: Electrophoresis: [id number] [facility] Work Phone: Electrophoresis: [id number] [facility] Work Phone: Electrophoresis: beta-globulin [facility] Work Phone: Electrophoresis: toby ma globulin [facility] Work Phone: Evaluation of cerebr ospinal fluid [facility] Work Phone: Fluid sample volume measurement [facility] Work Phone: Globulin [Mass/volum e] in Serum [facility] Work Phone: Glucose [Mass/volume ] in Cerebral spinal fluid [facility] Work Phone: Glutamate decarboxyl ase 65 Ab [Units/volume] in Serum [facility] IgG [Mass/volume] in Cerebral spinal fluid [facility] Work Phone: IgG [Mass/volume] in Serum or Plasma [facility] Work Phone: IgG clearance/Albumi n clearance [Ratio] in Serum and CSF [facility] Work Phone: IgG synthesis rate [Mass/time] in Serum and CSF by calculation [facility] Work Phone: Insulin Ab [Units/vo lume] in Serum [facility] Insulin C-peptide measurement [facility] Rika-1 extractable nuc lear Ab [Units/volume] in Serum [facility] Work Phone: Meningitis+Encephali tis pathogens DNA and RNA panel - Cerebral spinal fluid by GOPAL with non-probe detection [facility] Work Phone: Methylmalonate [Moles/volume] in Serum or Plasma [facility] Work Phone: Microscopic observat ion [Identifier] in Unspecified specimen by Gram stain [facility] Nucleated cells [#/v olume] in Cerebral spinal fluid by Manual count [facility] Work Phone: Patient Education [facility] Work Phone: Patient referral [facility] Work Phone: Protein [Mass/volume ] in Cerebral spinal fluid [facility] Work Phone: Protein [Mass/volume ] in Serum or Plasma [facility] Work Phone: Protein fractions.oligoclonal bands.intrathecal [Presence] in Serum and CSF [facility] Work Phone: Red blood cell count [facility] Work Phone: HORSE WRANGLER antibody measurement [facility] Work Phone: SCL-70 extractable n uclear Ab [Units/volume] in Serum by Immunoassay [facility] Work Phone: Sjogrens syndrome-A extractable nuclear Ab [Units/volume] in Serum [facility] Work Phone: Sjogrens syndrome-B extractable nuclear Ab [Units/volume] in Serum [facility] Work Phone: Mcguire extractable nu clear Ab [Units/volume] in Serum [facility] Work Phone: Thiamine [Moles/volu me] in Blood [facility] Immunizations Immunization Date Immunization Notes Care Provider Fa [facility] 01-31-2022 influenza virus vaccine, unspecified formulation Judith Piersonmandeepedwige [facility] Comment on above: Reason for Medicatio n: Prophylaxis Payers Date Payer Category Payer Self-pay [id number] 2021 Unknown 1985 Unknown [id number] 2.16.84 [id number] 1984 Unknown [id number] 2.16.84 [id number] 1984 Unknown [id number] 2.16.84 [id number] 1984 Unknown [id number] 2.16.8 [id number] 1984 Unknown [id number] 2.16.8 [id number] 1984 Unknown [id number] 2.16.8 [id number] 1984 Unknown [id number] 2.16.8 [id number] 1959 Unknown [id number] Medicaid [id number] Unknown [id number] 2.16.8 [id number] Unknown [id number] 2.16.8 [id number] Unknown [id number] 2.16.8 [id number] Unknown [id number] 2.16.8 [id number] Social History Date Type Detail Facility Start: 11-06-2021 End: 03-27-2023 Tobacco smoking status KYIS Ex-smoker (finding) [facility] Start: 1985 Sex Assigned At Female F [facility] Tobacco smoking status No Smoking Status Entered [facility] Sex Assigned At Female [facility] Start: 06-14-2023 End: 01-18-2024 Tobacco smoking status KYIS Smoker (finding) [facility] Tobacco smoking status [facility] Tobacco smoking consumption unknown [facility] Start: 1985 Sex assigned at Not on file [facility] Goals Date Patient Goal Desired Activity /State Functional Status Date Assessment Result Facility 01-22-2024 Functional status Patient at Baseline [facility] Work Phone: 02-01-2022 Functional Status N/A [facility] Mental Status Date Assessment Result Facility 01-22-2024 Cognitive function Cognitive Sta tus Patient at Baseline [facility] Work Phone: Clinical Notes 02-01-2022 to 01-22-2024 Note Date & Type Note Facility 01-22-2024 Discharge summary Note Date/Time January 22, 2024 11:00am [facility] [address] [place] [address] Discharge Summary Signed Patient: Shikha Loera MR#: [id number] : 1985 Acct:[id number] Age/Sex: 38 / F Adm Date: 4 Loc: Room: [address] [place] [address]: Jack Kwon MD Copies to: MD Devonte Wu MD [facility]~ Providers Date of Discharge: 01/22/24 Discharging Provider: Devonte Valdovinos Primary Care Provider: [facility] Consults: 01/15/24 11:22 Consult to Case Management Routine Comment: CM Reason for Consult: Supervisor [employer]-General 01/18/24 04:46 Consult to Adult Hospitalist Routine [...] depression, alcohol use disorder Past hospitalizations: Previous [address] [place] [address] hospitalization 10-15 years ago for suicide attempt [...] Instructions: Important Contact Information You can call [facility] at [phone] any time day or night if you have emergent questions or question regarding discharge instructions. If at any time you are feeling an increase inyour psychiatric symptoms, call your physician or behavioral healthcare provider. If any time you have thoughts of harming yourself or others contact one of the following: Call 9-8-8 (available 30/10) Crisis Text Line (available 30/10) text 4HOPE to [phone] [facility] Hope Line (available 8 a.m. Midnight) call [phone] ([phone]) Regular Diet No Activity Restrictions Instructions: Depression, Adult (DC), Alcohol Use Disorder (DC), [facility] Behavioral Health DC Instructions, Know your Meds [...] tablet 5 mg PO DAILY Follow Up: [facility] [Outside] - 01/23/24 (A telephonic nurse case manager will call you tomorrow 01/22 between 8-5 to discuss appointments and follow-up care. Financial and diagnostic assessment on 01/22 at 1:30pm Nursing intake on 02/05 at 10am Appointment with Dr. Valdovinos on 02/11 at 10:15am[facility] (see with any medical [...] <Electronically signed by Devonte Valdovinos MD> 01/22/24 4661 [facility] Work Phone: 1(684) 293-935910-14-2024 Progress note Author Devonte Valdovinos [facility] January 21, 2024 2:21pm Note Date/Time January 21, 2024 1 2:12pm [facility] [address] [place] [address] Psychiatry Progress Note Signed Patient: Shikha Loera MR#: [id number] : 1985 Acct:[id number] Age/Sex: 38 / F Adm Date: 4 Loc: Room: [address] [place] [address] Type : ADM IN Attending Dr: Jack [...] signed by Devonte Valdovinos MD> 01/21/24 1421 [facility] Work Phone: 1(621) 238-535910-13-2024 Progress note Author Jack wright [facility] January 20, 2024 5:40pm Note Date/Time January 20, 2024 1 1:39am [facility] [address] [place] [address] Psychiatry Progress Note Signed Patient: Shikha Loera MR#: [id number] : 1985 Acct:[id number] Age/Sex: 38 / F Adm Date: 4 Loc: 1S Room: [address] [place] [address] Type : ADM IN Attending Dr: Jack [...] to get ahold of her. Ena Rooney [phone] Mother stated she just talked to Shikha [...] <Electronically signed by Jack Kwon MD> 01/20/24 1701 [facility] Work Phone: 1(975) 941-658910-13-2024 Progress note Author Helen Bailon [facility] January 20, 2024 4:29pm Note Date/Time January 20, 2024 4 :29pm [facility] [address] [place] [address] Hospitalist Progress Note Signed Patient: Shikha Loera MR#: [id number] : 1985 Acct:[id number] Age/Sex: 38 / F Adm Date: 4 Loc: Room: [address] [place] [address] Type: ADM IN Attending Dr: Jack Kwon [...] By: <Electronically signed by CATIA Bailon> 01/20/241628 [facility] Work Phone: 1(945) 795-859110-12-2024 Progress note Author Helen Bailon [facility] January 19, 2024 4:50pm Note Date/Time January 19, 2024 4 :50pm [facility] [address] [place] [address] Hospitalist Progress Note Signed Patient: Shikha Loera MR#: [id number] : 1985 Acct:[id number] Age/Sex: 38 / F Adm Date: 4 Loc: Room: [address] [place] [address] Type: ADM IN Attending Dr: Jack Kwon [...] Documented By: Helen Bailon APRN 01/07 06/02 0642 Signed By: <Electronically signed by CATIA Sandsy> 01/19/24 1650 [facility] Work Phone: 1(717) 323-375010-12-2024 Progress note Author Jack wright [facility] January 19, 2024 8:01am Note Date/Time January 19, 2024 7 :59am [facility] [address] [place] [address] Psychiatry Progress Note Signed Patient: Shikha Loera MR#: [id number] : 1985 Acct:[id number] Age/Sex: 38 / F Adm Date: 4 Loc: Room: [address] [place] [address] Type : ADM IN Attending Dr: Jack [...] signed by Jack Kwon MD> 01/19/24 0801 [facility] Work Phone: 1(819) 944-977110-11-2024 Consult note Author Hari Nixon [facility] January 18, 2024 7:40pm Note Date/Time January 18, 2024 1 1:50am [facility] [address] [place] [address] Hospitalist Consult Note Signed Patient: Shikha Loera MR#: [id number] : 1985 Acct:[id number] Age/Sex: 38 / F Adm Date: 4 Loc: Room: [address] [place] [address] Type: ADM IN Attending Dr: Jack Kwon MD Copies to: Jack Kwon MD [facility] CATIA Dennis, DO~ HPI DATE [...] negative unless noted below or in HPI [facility] Medical History (Updated 01/18/24 @ 14:15 [...] Tablet PO 01/15/25 08:59 25 mg DAILY MAISH Administration Levothyroxine Sodium 50 mcg 01/16/24 06:30 [...] signed by Hari Nixon DO> 01/18/24 194 [facility] Work Phone: 1(498) 474-562910-11-2024 Progress note Author Jack wright [facility] January 18, 2024 2:15pm Note Date/Time January 18, 2024 9 :31am [facility] [address] [place] [address] Psychiatry Progress Note Signed Patient: Shikha Loera MR#: [id number] : 1985 Acct:[id number] Age/Sex: 38 / F Adm Date: 4 Loc: Room: [address] [place] [address] Type : ADM IN Attending Dr: Jack [...] makes no 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 She has [...] <Electronically signed by Jack Kwon MD> 01/18/24 1096 [facility] Work Phone: 1(631) 901-135810-10-2024 Progress note Author Jack wright [facility] January 17, 2024 6:35am Note Date/Time January 17, 2024 6 :35am [facility] [address] [place] [address] Psychiatry Progress Note Signed Patient: Shikha Loera MR#: [id number] : 1985 Acct:[id number] Age/Sex: 38 / F Adm Date: 4 Loc: 1S Room: [address] [place] [address] Type : ADM IN Attending Dr: Jack [...] discharge. Documented By: Jack Kwon MD 4 5543 Signed By: <Electronically signed by Jack Kwon MD> 01/17/24 0635 [facility] Work Phone: 1(944) 586-671610-09-2024 History and physical note Author Jack wright [facility] January 16, 2024 6:36am Note Date/Time January 15, 2024 11 :43am [facility] [address] [place] [address] Psychiatry H&P Signed Patient: Shikha Loera MR#: [id number] : 1985 Acct:[id number] Age/Sex: 38 / F Adm Date: Loc: Room: [address] [place] [address] Type: ADM IN Attending Dr: Jack Kwon MD Copies to: Jack Kwon MD [facility]~ Date of Service: 01/16/2024 HPI [...] her best friend. Patient was here at [address] [place] [address] during this time because she attempted suicide [...] depression, alcohol use disorder Past hospitalizations: Previous [address] [place] [address] hospitalization 10-15 years ago for suicide attempt [...] internalstimuli. Insight: limited , emerging Judgment: limited [facility] Medical History (Updated 01/16/24 @ 06:36 [...] Cloudy A Urine pH 5.5 Ur Specific [place] 1.005 Urine Protein 20 H Urine Glucose [...] signed by Jack Kwon MD> 01/16/24 0636 [facility] Work Phone: 1(269) 240-439212-19-2023 Evaluation note* Encounter Date Diagnosis Assessment Notes [...] issues. 6. Prescriptions: New patient 03-27-2023 uses [facility]. Mar, Vitamin D deficiency (ICD-10 - E55.9) Mar, Hyperlipidemia, unspecified hyperlipidemia type (ICD-10 - E78.5) Mar, Hypertension, unspecified type (ICD-10 - I10) Mar, Dietary counseling and surveillance (ICD-10 - Z71.3) Mar, BMI 21.0-21.9, adult (ICD-10 - Z68.21) Mar, History of gestational diabetes (ICD-10 - Z86.32) [facility] Other 10-27-2022 Hospital Discharge instructions Patient Education 02/02/2022 00:18:28 Pyelonephritis, Adult, Qjvz-yf-Cbad Pyelonephritis, Adult Pyelonephritis is an infection that [...] even if youstart to feel better. Take hrfu-wms-tesoiwt and prescription medicines only as told by [...] 05/03/2005 Document Revised: 01/28/2019 Document Reviewed: 01/28/2019 [employer] Patient Education 2020 [place]. Follow Up Care 02/01/2022 21:25:38 With:AVERY BLANCA Address: [address] [place] [address] [address] [place] [address]- [phone] Business (1) When:02/05/2022 Comments:You can use the pain medication every 6 hours as needed for pain, take the Bactrim twice daily until you have completed the course. Please follow-up with your primary care doctor the next 2 to 3 days. Please return to the ED for any new or worsening symptoms. [facility]10-26-2022 Evaluation + Plan noteExtracted from: Title:ED Note [...] With Cult Reflex Urine Culture US Gallbladder [facility]Reason for visit Narrative* Chief Complaint Referral Echd Detox DM [facility] Work Phone: Evaluation noteNo assessment information available [facility] Work Phone: Evaluation note* Diagnosis Onset Date Resolution Status Alcohol use disorder acute BMI 21.0-21.9, adult acute Controlled diabetes mellitus with hyperglycemia acute Dietary counseling and surveillance acute Hyperlipidemia acute Vitamin D deficiency acute [facility] Work Phone: Evaluation note* Diagnosis Onset Date Resolution Status Alcohol intoxication acute Suicidal ideations acute [facility] Work Phone: Evaluation note* Diagnosis Onset Date Resolution Status Alcohol intoxication acute Alcohol use disorder acute Alcohol withdrawal acute Bipolar depression acute HTN (hypertension) acute Hyperlipidemia acute Hypokalemia acute Hypomagnesemia acute Hypothyroid acute Suicidal ideations acute Vitamin D deficiency acute [facility] Work Phone: History general Narrative - Reported* Type Description Date Medical History Hx of abnormal pap Medical History Hx of pancreatitis Medical History type II diabetes Medical History bipolar Surgical History hemangioma removed from lip at age 4 Hospitalization History See Above Hospitalization History pancreatitis [facility] Other Hospital course Narrative No data available for this section [facility] No data available for this section [facility] Chief Complaint and Reason for Visit Chief [...] Member Role Status Dates Avery Blanca APRN [employer]400 PROGRAMMER ANALYST-C Attending Provider Active Team Status: Inactive Member Role Status Dates Services [facility] Primary Care Provider Active Hal Orozco DO Emergency Provider Active Team Status: Inactive Member Role Status Dates Delfino Reese MD Attending Provider Active Yeyo Mcneill , [employer]400 PROGRAMMER ANALYST-C Primary Care Provider Active Team Status: Active Member Role Status Dates Yeyo Mcneill , AS400 PROGRAMMER ANALYST-C Primary Care Provider Active Team Status: Inactive Member Role Status Dates Yeyo Mcneill , AS400 PROGRAMMER ANALYST-C Primary Care Provider Active Delfino Reese MD Attending Provider Active Team Status: Active Member Role Status Dates Avery Blanca APRN [employer]400 PROGRAMMER ANALYST-C Primary Care Provider Act dario Team Status: Inactive Member Role Status Dates Becky Gambino APRN Attending Provider Active Start: March 27, 2023 End: March 27, 2023 Team Status: Inactive Member Role Status Dates Becky Gambino APRN Attending Provider Active Start: March 27, 2023 End: March 27, 2023 Avery Blanca APRN [employer]400 PROGRAMMER ANALYST-C Primary Care Provider Act dario Start: March 27, 2023 End: March 27, 2023 Team Status: Inactive Member Role Status Dates Avery Blanca APRN [employer]400 PROGRAMMER ANALYST-C Primary Care Provider Act dario Start: June 14, 2023 End: June 14, 2023 Becky Gambino APRN Attending Provider Active Start: June 14, 2023 End: June 14, 2023 Team Status: Inactive Member Role Status Dates Avery Blanca APRN [employer]400 PROGRAMMER ANALYST-C Attending Provider Active Start: August 14, 2023 End: August 14, 2023 Team Status: Active Member Role Status Dates [facility] Primary Care Provider Active Team Status: Active Member Role Status Dates Avery Blanca APRN [employer]400 PROGRAMMER ANALYST-C Primary Care Provider Act dario Start: November 22, 2023 Jack Kwon MD Attending Provider Active Start: November 22, 2023 Team Status: Active Member Role Status Dates Services [facility] Primary Care Provider Active Start: November 22, 2023 Rayn Couch DO Attending Provider Active Sta rt: [...] Status: Inactive Member Role Status Dates Services [facility] Primary Care Provider Active Start: [...] Status: Active Member Role Status Dates Services [facility] Primary Care Provider Active Start: [...] DATE CREATED AUTHOR AUTHOR'S ORGANIZ ATION 01/20/2023 [facility] DATE CREATED AUTHOR AUTHOR'S ORGANIZ ATION 03/07/2024 [facility] REASON FOR VISIT (unrecogniz ed [...] BE BASED ON THE PRIMARY CLINICAL RECORDS. [facility]. provides no warranty or guarantee of the accuracy or completeness of information in this document.
--- OUTSIDE RECORDS SUMMARY | 2024-04-22 23:34 | XMS_ITS | CCD ---
Author Organization [facility] Team Providers Care Salon Designer Name Role Phone [facility] Primary Care Provider DO Hal Orozco Emergency Provider [phone] CATIA Blanca Attending Provider MD Delfino Reese Attending Provider [phone] BRADY Mcneill Primary Care Provider [phone] AVREY BLANCA Primary Care Physician MAGGY WORLEY Consulting [...] Becky Gambino Unavailable CATIA Gambino Attending Provider CATAI Blanca Primary Care Provider [phone] CATIA Blanca Attending Provider CATIA Blanca Primary Care Provider [phone] MD Jack Kwon Attending Provider [facility] Primary Care Provider CATIA Kerr [...] Other Provider HUDSON Edwards-Jeannette Jones Other Provider [phone] CATIA Poe Other Provider Unavailable MD Nahum Soni Other Provider MD Scott Lunsford Other Provider MD Ruy Juarez Other Provider MD Maria Isabel Marte Other Provider Unavailable MD Ta Bonner Other Provider DO Mignon Lucero Other Provider DO Huy Escobar Other Provider CATIA Good Other Provider DO Diego Gregg Other Provider [phone] MD Carlos Johnson Other Provider CATIA Mcguire Other Provider CATIA Woods Other Provider MD Ashlee Osuna Other Provider MD Dariel Spence Other Provider DangeloDO Ermias forbes T Other Provider [phone] DO Gladys Matthews Other Provider MD Chato Juarez Other Provider MD Delma Kuo Other Provider CATIA Azar Other Provider [phone] MD Gurvinder Sosa Other Provider MD Sajan Knapp Other Provider EFFIE Carr Other Provider Unavailable Avery Blanca Primary Care Unavailable Becky Gambino Admitting Unavailable Becky Gambino Attending Unavailable Avery Blanca Attending Unavailable Avery Blanca Admitting Unavailable [facility] Primary Care Unavaila Avery [...] Padilla Consulting Unavailable Hari Nixon Consulting Unavailable Sarha Mahajan Consulting Unavailable Michael Avila Consulting Unavailable Nga Edwards Consulting Unavailable Johnie Poe Consulting Unavailable Nahum Soni Consulting UnavailScott Hathaway Consulting Unavailable Ruy Juarez Unavailable Maria Isabel Marte Consulting Unavailable Ta Bonner Consulting Unavailable Mignon Lucero Unavailable Huy Escboar Consulting Unavailable Almaz Good Consulting Unavailable Diego [...] of Lip/Tongue/Throa t, Anaphylactic reaction, Unknown [facility] Medications Current Medications Medication Drug Class(es) Dates Sig (Normalized) Sig (Original) acetaminophen 325 mg / HYDROcodone bitartrate 5 mg oral tablet (1 source) Opioid Agonist Start: 02-02-2022 [place] 325 mg-5 mg oral tablet 1 tab(s), [...] 11-06-2021 End: 01-15-2024 Promethazine Discontinued 25 MG AL Q6H November 06, 2021 12:00am January 15, [...] 4 Chronic Other aftercare (1 source) Other alf (current) drug therapy; Translations: [OTH SKILLED NURSING CURRENT DRUG THERAPY] Onset: 2 Episodic Other [...] Creatinine Clr Calc Pharmacy 94.82 Normal [facility] Comment on above: Order Comment: DRAWN BY NAYANA Performed By: #### C MP, CBC, ETOH #### [address] GFR/1.73 sq M.predicted MDRD (S/P/Bld) [Vol rate/Area] mL/min/{1.73_m2} Normal [facility] Comment on above: Order Comment: DRAWN BY NAYANA Performed By: #### C MP, CBC, ETOH #### [facility] [address] Calcium [Mass/volume] in Ser um or PlasmaOrdered By: Helen Bailon on 01-20-2024 Calcium [Mass/Vol] 9.3 mg/dL Normal 8.6-10.3 [facility] Comment on above: Order Comment: DRAWN BY MK Performed By: #### C MP, CBC, ETOH #### [facility] [address] Capillary blood glucose archie urement by glucometer (mass/volume)Ordered By: Jack Kwon on 01-20-2024 Glucose [Mass/Vol] 161 mg/dL Normal [facility] Comment on above: Random Glucose Refer ence Range is dependent on time and content of last meal. Glucose of more than 200 mg/dL in a nonstressed, ambulatory subject supports the diagnosis of Diabetes Mellitus. Result Comment: [place] om Glucose Reference Range is dependent on time and content of last meal. Glucose of more than 200 mg/dL in a nonstressed, ambulatory subject supports the diagnosis of Diabetes Mellitus. PERFORMED BY: [place] [address] PATHOLOGIST LEATHER [employer] MAKER OSMEL BLUE M.D. Performed By: #### C MP, CBC, ETOH #### [facility] [address] [place] [address] Carbon dioxide, total [Moles /volume] in Serum or PlasmaOrdered By: Helen Bailon on 01-20-2024 CO2 [Moles/Vol] 22.5 mmol/L Normal 21.0-31.0 [facility] Comment on above: Order Comment: DRAWN BY MK Performed By: #### C MP, CBC, ETOH #### [facility] [address] [place] [address] [place] Chloride [Moles/volume] in S ben or PlasmaOrdered By: Helen Bailon on 01-20-2024 Chloride [Moles/Vol] 107 mmol/L Normal 98-107 [facility] Comment on above: Order Comment: DRAWN BY MK Performed By: #### C MP, CBC, ETOH #### [facility] [address] Creatinine [Mass/volume] in Serum or PlasmaOrdered By: Helen Bailon on 01-20-2024 Creatinine [Mass/Vol] 0.77 mg/dL Normal 0.60-1.20 [facility] Comment on above: Order Comment: DRAWN BY MK Performed By: #### C MP, CBC, ETOH #### [facility] [address] Glucose [Mass/volume] in Ser um or PlasmaOrdered By: Helen Bailon on 01-20-2024 Glucose [Mass/Vol] 98 mg/dL Normal 70-100 [facility] Comment on above: ADA recommended refe rence rangeRandom Glucose Reference Range is dependent on time and content of last meal. Glucose of more than 200 mg/dL in a nonstressed, ambulatory subject supports the diagnosis of Diabetes Mellitus. Order Comment: DRAWN BY MK Result Comment: [place] om Glucose Reference Range is dependent on time and content of last meal. Glucose of more than 200 mg/dL in a nonstressed, ambulatory subject supports the diagnosis of Diabetes Mellitus. ADA recommended reference range Performed By: #### C MP, CBC, ETOH #### [facility] [address] Magnesium [Mass/volume] in S ben or PlasmaOrdered By: Helen Bailon on 01-20-2024 Magnesium [Mass/Vol] 1.6 mg/dL Low 1.9-2.7 [facility] Comment on above: Order Comment: DRAWN BY Result Comment: PERF ORMED BY: [place] [address] PATHOLOGIST LEATHER [employer] OSMEL BLUE M.D. Performed By: #### C MP, CBC, ETOH #### [facility] [address] No Panel InformationOrdered By: Helen Bailon on 01-20-2024 Estimated GFR (CKD-EPI) > 60.0 mL/Min [facility] Creatinine Clearance (Chem 94.82 [facility] Potassium [Moles/volume] in Serum or PlasmaOrdered By: Helen Uvaldo on 01-20-2024 Potassium [Moles/Vol] 3.9 mmol/L Normal 3.5-5.1 [facility] Comment on above: Order Comment: DRAWN BY MK Performed By: #### C MP, CBC, ETOH #### [facility] [address] Serum or plasma anion gap de terminationOrdered By: Helen Uvaldo on 01-20-2024 Anion gap [Moles/Vol] 13.4 mmol/L Normal 6.0-15.0 [facility] Comment on above: Order Comment: DRAWN BY MK Performed By: #### C MP, CBC, ETOH #### [facility] [address] [place] [address] [place] Sodium [Moles/volume] in Ser um or PlasmaOrdered By: Helen Uvaldo on 01-20-2024 Sodium [Moles/Vol] 139 mmol/L Normal 136-145 [facility] Comment on above: Order Comment: DRAWN BY MK Performed By: #### C MP, CBC, ETOH #### [facility] [address] [place] [address] [place] Urea nitrogen [Mass/volume] in Serum or PlasmaOrdered By: Helen Uvaldo on 01-20-2024 Urea nitrogen [Mass/Vol] 11 mg/dL Normal 7-25 [facility] Comment on above: Order Comment: DRAWN BY MK Performed By: #### C MP, CBC, ETOH #### [facility] [address] [place] [address] [place] A1C with Estimated Average G verotodd 01-19-2024 Glucose [Mass/Vol] 105 mg/dL Normal [facility] Comment on above: Order Comment: Comme nt ok to use previously drawn lab Result Comment: PERF ORMED BY: [place] [address] PATHOLOGIST LEATHER [employer] OSMEL BLUE M.D. Performed By: #### A [address] [facility] eA #### [facility] [address] [place] [address] [place] Alanine aminotransferase [En zymatic activity/volume] in Serum or PlasmaOrdered By: Helentodd Bailon on 01-19-2024 ALT [Catalytic activity/Vol] 76 U/L High 7-52 [facility] Comment on above: Performed By: #### C MP, CBC, ETOH #### [facility] [address] [place] [address] [place] Albumin [Mass/volume] in Ser um or Plasma by Bromocresol green (BCG) dye binding methoOrdered By: Helen Bailon on 01-19-2024 Albumin BCG dye [Mass/Vol] 3.9 g/dL 3.5-5.7 [facility] Alkaline phosphatase [Enzyma tic activity/volume] in Serum or PlasmaOrdered By: Helen Bailon on 01-19-2024 ALP [Catalytic activity/Vol] 80 U/L Normal 34-104 [facility] Comment on above: Performed By: #### C MP, CBC, ETOH #### [facility] [address] Aspartate aminotransferase [ Enzymatic activity/volume] in Serum or PlasmaOrdered By: Helen Bailon on 01-19-2024 AST [Catalytic activity/Vol] 110 U/L High 13-39 [facility] Comment on above: Performed By: #### C MP, CBC, ETOH #### [facility] [address] [place] [address] [place] Bilirubin.total [Mass/volume ] in Serum or PlasmaOrdered By: Helen Bailon on 01-19-2024 Bilirubin [Mass/Vol] 0.7 mg/dL Normal 0.3-1.0 [facility] Comment on above: Performed By: #### C MP, CBC, ETOH #### [facility] [address] [place] [id number] [place] Comprehensive Metabolic Pane mike 01-19-2024 Albumin [Mass/Vol] 3.9 g/dL Normal 3.5-5.7 [facility] Comment on above: Performed By: #### C MP, CBC, ETOH #### [facility] [address] [place] [id number] [place] Anion gap [Moles/Vol] 14.1 mmol/L Normal 6.0-15.0 [facility] Comment on above: Performed By: #### C MP, CBC, ETOH #### [facility] [address] [place] [id number] [place] Calcium [Mass/Vol] 9.3 mg/dL Normal 8.6-10.3 [facility] Comment on above: Performed By: #### C MP, CBC, ETOH #### [facility] [address] [place] [address] [place] Chloride [Moles/Vol] 108 mmol/L High 98-107 [facility] Comment on above: Performed By: #### C MP, CBC, ETOH #### [facility] [address] [place] [address] [place] CO2 [Moles/Vol] 22.1 mmol/L Normal 21.0-31.0 [facility] Comment on above: Performed By: #### C MP, CBC, ETOH #### [facility] [address] [place] [address] [place] Creatinine [Mass/Vol] 0.63 mg/dL Normal 0.60-1.20 [facility] Comment on above: Performed By: #### C MP, CBC, ETOH #### [place] [address] [place] Creatinine Clr Calc Pharmacy 115.90 Normal [facility] Comment on above: Performed By: #### C MP, CBC, ETOH #### [facility] [address] [place] [address] [place] GFR/1.73 sq M.predicted MDRD (S/P/Bld) [Vol rate/Area] mL/min/{1.73_m2} Normal [facility] Comment on above: Performed By: #### C MP, CBC, ETOH #### [facility] [address] [place] [id number] [place] Glucose [Mass/Vol] 85 mg/dL Normal 70-100 [facility] Comment on above: Result Comment: [facility] Glucose Reference Range is dependent on time and content of last meal. Glucose of more than 200 mg/dL in a nonstressed, ambulatory subject supports the diagnosis of Diabetes Mellitus. ADA recommended reference range Performed By: #### C MP, CBC, ETOH #### [facility] [address] Potassium [Moles/Vol] 3.2 mmol/L Low 3.5-5.1 [facility] Comment on above: Performed By: #### C MP, CBC, ETOH #### [facility] [address] [place] [address] [place] Sodium [Moles/Vol] 141 mmol/L Normal 136-145 [facility] Comment on above: Performed By: #### C MP, CBC, ETOH #### [facility] [address] [place] [id number] [place] Urea nitrogen [Mass/Vol] 7 mg/dL Normal 7-25 [facility] Comment on above: Performed By: #### C MP, CBC, ETOH #### [facility] [address] [place] [id number] [place] Folate [Mass/volume] in Seru m or PlasmaOrdered By: Helen Bailon on 01-19-2024 Folate [Mass/Vol] 36.0 ng/mL >5.9 [facility] Comment on above: Folate reference ran ge: >5.9 ng/mlThe WHO technical consultation on folate and vitamin [id number] has determined that folate concentrations lessthan 4 ng/ml are considered deficient. Glucose mean value [Mass/vol ume] in Blood Estimated from glycated hemoglobinOrdered By: Helen Bailon on 01-19-2024 Average glucose Estimated from glycated hemoglobin (Bld) [Mass/Vol] 105 mg/dL [facility] Hemoglobin A1c percentageOrd ered By: Helen Bailon on 01-19-2024 HbA1c (Bld) [Mass fraction] 5.3 % Normal 4.3-5.6 [facility] Comment on above: Increased risk for d iabetes: 5.7 - 6.4diabetes: >6.4glycemic control for adults with diabetes: <7.0 Order Comment: Comme nt ok to use previously drawn lab Result Comment: Incr eased risk for diabetes: 5.7 - 6.4 diabetes: >6.4 glycemic control for adults with diabetes: <7.0 Performed By: #### A 1C [facility] #### [address] Lipase [Enzymatic activity/v olume] in Serum or PlasmaOrdered By: Helen Bailon on 01-19-2024 Lipase [Catalytic activity/Vol] U/L Low 11.0-82.0 [facility] Comment on above: Performed By: #### C MP, CBC, ETOH #### [address] Phosphate [Mass/volume] in S ben or PlasmaOrdered By: Heeln Bailon on 01-19-2024 Phosphate [Mass/Vol] 6.4 mg/dL High 2.5-4.5 [facility] Comment on above: Performed By: #### C MP, CBC, ETOH #### [address] Protein [Mass/volume] in Ser um or PlasmaOrdered By: Helen Bailon on 01-19-2024 Protein [Mass/Vol] 6.7 g/dL Normal 6.4-8.9 [facility] Comment on above: Performed By: #### C MP, CBC, ETOH #### [address] Serum globulin measurement b y calculation (mass/volume)Ordered By: Helen Bailon on 01-19-2024 Globulin (S) [Mass/Vol] 2.8 g/dL Normal [facility] Comment on above: Performed By: #### C MP, CBC, ETOH #### [address] Serum or plasma albumin/glob ulin mass ratioOrdered By: Helen Bailon on 01-19-2024 Albumin/Globulin [Mass ratio] 1.4 {ratio} [facility] Comment on above: Performed By: #### C MP, CBC, ETOH #### [address] Vit. B12/Folate Profileon Folate 36.0 ng/mL Normal >5.9 [facility] Comment on above: Result Comment: Dorie te reference range: >5.9 ng/ml The WHO technical consultation on folate and vitamin b12 deficiencies has determined that folate concentrations less than 4 ng/ml are considered deficient. PERFORMED BY: [place] [address] PATHOLOGIST LEATHER [employer] OSMEL BLUE M.D. Performed By: #### C MP, CBC, ETOH #### [address] Vitamin B1 (Thiamine) Bloodo n 01-19-2024 Vitamin B1 (Thiamine) Blood 207.3 High 66.5-200.0 [facility] Comment on above: Result Comment: This test was developed and its performance characteristics determined by [employer]. It has not been cleared or approved by the Food and Drug Administration. Performed at: [address] [id number] [employer]: Charlie Manriquez MD, Phone: [phone] PERFORMED BY: [place] [address] PATHOLOGIST LEATHER [employer] OSMEL BLUE M.D. Performed By: #### C MP, CBC, ETOH #### [address] Vitamin B12 ser/plasOrdered By: Helen Bailon on 01-19-2024 Cobalamin (Vitamin B12) [Mass/Vol] 392 pg/mL Normal 180-914 [facility] Comment on above: Performed By: #### C MP, CBC, ETOH #### [place] [id number] [facility] Comprehensive Metabolic Pane mike 01-18-2024 Albumin [Mass/Vol] 4.5 g/dL Normal 3.5-5.7 [facility] Comment on above: Performed By: #### C MP, CBC, ETOH #### [place] [address] [place] Albumin/Globulin [Mass ratio] 1.5 {ratio} Normal [facility] Comment on above: Performed By: #### C MP, CBC, ETOH #### [address] ALP [Catalytic activity/Vol] 97 U/L Normal 34-104 [facility] Comment on above: Performed By: #### C MP, CBC, ETOH #### [address] ALT [Catalytic activity/Vol] 66 U/L High 7-52 [facility] Comment on above: Performed By: #### C MP, CBC, ETOH #### [address] Anion gap [Moles/Vol] 14.5 mmol/L Normal 6.0-15.0 [facility] Comment on above: Performed By: #### C MP, CBC, ETOH #### [address] AST [Catalytic activity/Vol] 103 U/L High 13-39 [facility] Comment on above: Performed By: #### C MP, CBC, ETOH #### [place] [address] [place] Bilirubin [Mass/Vol] 0.7 mg/dL Normal 0.3-1.0 [facility] Comment on above: Performed By: #### C MP, CBC, ETOH #### [place] [address] [place] Calcium [Mass/Vol] 10.2 mg/dL Normal 8.6-10.3 [facility] Comment on above: Performed By: #### C MP, CBC, ETOH #### [place] [address] [place] Chloride [Moles/Vol] 105 mmol/L Normal 98-107 [facility] Comment on above: Performed By: #### C MP, CBC, ETOH #### [address] CO2 [Moles/Vol] 23.9 mmol/L Normal 21.0-31.0 [facility] Comment on above: Performed By: #### C MP, CBC, ETOH #### [address] Creatinine [Mass/Vol] 0.66 mg/dL Normal 0.60-1.20 [facility] Comment on above: Performed By: #### C MP, CBC, ETOH #### [address] Creatinine Clr Calc Pharmacy 110.63 Normal [facility] Comment on above: Result Comment: PERF ORMED BY: [place] [address] PATHOLOGIST LEATHER [employer] OSMEL BLUE M.D. Performed By: #### C MP, CBC, ETOH #### [address] GFR/1.73 sq M.predicted MDRD (S/P/Bld) [Vol rate/Area] mL/min/{1.73_m2} Normal [facility] Comment on above: Performed By: #### C MP, CBC, ETOH #### [address] Globulin (S) [Mass/Vol] 3.1 g/dL Normal [facility] Comment on above: Performed By: #### C MP, CBC, ETOH #### [address] Glucose [Mass/Vol] 135 mg/dL High 70-100 [facility] Comment on above: Result Comment: [place] Glucose Reference Range is dependent on time and content of last meal. Glucose of more than 200 mg/dL in a nonstressed, ambulatory subject supports the diagnosis of Diabetes Mellitus. ADA recommended reference range Performed By: #### C MP, CBC, ETOH #### [address] Potassium [Moles/Vol] 3.4 mmol/L Low 3.5-5.1 [facility] Comment on above: Performed By: #### C MP, CBC, ETOH #### [facility] [address] [place] [address] [place] Protein [Mass/Vol] 7.6 g/dL Normal 6.4-8.9 [facility] Comment on above: Performed By: #### C MP, CBC, ETOH #### [facility] [address] [place] [address] [place] Sodium [Moles/Vol] 140 mmol/L Normal 136-145 [facility] Comment on above: Performed By: #### C MP, CBC, ETOH #### [facility] [address] [place] [address] [place] Urea nitrogen [Mass/Vol] 5 mg/dL Low 7-25 [facility] Comment on above: Performed By: #### C MP, CBC, ETOH #### [facility] [address] Magnesiumon 01-18-2024 Magnesium [Mass/Vol] 1.4 mg/dL Low 1.9-2.7 [facility] Comment on above: Result Comment: PERF ORMED BY: [place] [address] PATHOLOGIST LEATHER [employer] OSMEL BLUE M.D. Performed By: #### C MP, CBC, ETOH #### [place] [address] [place] Cholesterol [Mass/volume] in Serum or PlasmaOrdered By: Jack Kwon on 01-16-2024 Cholesterol [Mass/Vol] 270 mg/dL High 140-200 [facility] Comment on above: Chol less than 200 m g/dl low riskChol 201-239 mg/dl borderline riskChol 240 mg/dl and greater high risk Result Comment: Chol less than 200 mg/dl low risk Chol 201-239 mg/dl borderline risk Chol 240 mg/dl and greater high risk Performed By: #### C MP, CBC, ETOH #### [place] [address] [place] Cholesterol in LDL Calc [Mas s/Vol]Ordered By: Jack Kwon on 01-16-2024 Cholesterol in LDL [Mass/Vol] 134 mg/dL High 0-100 [facility] Comment on above: LDL ATP III CLASSIFI CATIONLDL less than 100 mg/dL OptimalLDL 100-129 mg/dL Near or above optimalLDL 130-159 mg/dL Borderline highLDL 160-189 mg/dL HighLDL greater than 189 mg/dL Very high Cholesterol in VLDL Calc [Ma ss/Vol]Ordered By: Jack Kwon on 01-16-2024 Cholesterol in VLDL [Mass/Vol] 28 mg/dL [facility] ECG 12 lead ECGon 01-16-2024 ECG 12 lead ECG [facility] [place] [place] [address] Electrocardiograph Report Signed Patient: Shikha Loera MR#: [id number] : 1985 Acct:[id number] Age/Sex: 38 / F ADM Date: 01/15/24 Loc: Room: [address] [place] [address] Type: ADM IN Attending Dr: Jack Kwon [...] rhythm Normal ECG Confirmed by Almaz Armando ([id number]) on 01/16/2024 4:49:39 PM Referred By: Electronically Signed By: Almaz Armando Transcribed By: MUS Signed By Almaz Armando MD [id number] [phone] Normal [facility] Lipid Panelon 01-16-2024 LDL Cholesterol,Calculated 134 mg/dL High 0-100 [facility] Comment on above: Result Comment: LDL ATP III CLASSIFICATION LDL less than 100 mg/dL Optimal LDL 100-129 mg/dL Near or above optimal LDL 130-159 mg/dL Borderline high LDL 160-189 mg/dL High LDL greater than 189 mg/dL Very high Performed By: #### C MP, CBC, ETOH #### [facility] [address] Triglyceride w/Reflex 143 mg/dL Normal 0-149 [facility] Comment on above: Result Comment: TRIG ATP III CLASSIFICATION TRIG less than 150 mg/dL Normal TRIG 150-199 mg/dL Borderline high TRIG 200-500 mg/dL High TRIG greater than 500 mg/dL Very high Standard traceable to the Center for Disease Conrtrol and Prevention (CDC) test method. Performed By: #### C MP, CBC, ETOH #### [facility] [address] VLDL CHOLESTEROL 28 mg/dL Normal [facility] Comment on above: Performed By: #### C MP, CBC, ETOH #### [facility] [address] Magnesiumon 01-16-2024 Magnesium [Mass/Vol] 1.6 mg/dL Low 1.9-2.7 [facility] Comment on above: Performed By: #### C MP, CBC, ETOH #### [facility] [address] Serum or plasma high density lipoprotein (HDL) cholesterol measurementOrdered By: Jack Kwon on 01-16-2024 Cholesterol in HDL [Mass/Vol] 107 mg/dL High 23-92 [facility] Comment on above: HDL CHOL ATP-III CLA SSIFICATION Cardiovascular RiskHDL > or equal to 60 mg/dL LOWHDL < 40 mg/dL HIGH Result Comment: HDL CHOL ATP-III CLASSIFICATION Cardiovascular Risk HDL > or equal to 60 mg/dL LOW HDL < 40 mg/dL HIGH Performed By: #### C MP, CBC, ETOH #### [facility] [address] Serum or plasma total choles terol/high density lipoprotein (HDL) cholesterol mass ratOrdered By: Jack Kwon on 01-16-2024 Cholesterol.total/Chol esterol in HDL [Mass ratio] 2.5 {ratio} Normal <5.0 [facility] Comment on above: Performed By: #### C MP, CBC, ETOH #### [facility] [address] [place] [id number] [facility] Thyroid Stim Hormone w/Rflxo n 01-16-2024 Thyroid Stim Hormone w/Rflx 3.66 u[iU]/mL Normal 0.45-5.33 [facility] Comment on above: Performed By: #### C MP, CBC, ETOH #### [facility] [address] [id number] [facility] Thyrotropin [Units/volume] i n Serum or PlasmaOrdered By: Jack Kwon on 01-16-2024 TSH Qn 3.66 m[IU]/L 0.45-5.33 [facility] Triglyceride [Mass/volume] i n Serum or PlasmaOrdered By: Jack Kwon on 01-16-2024 Triglyceride [Mass/Vol] 143 mg/dL 0-149 [facility] Comment on above: TRIG ATP III CLASSIF ICATIONTRIG less than 150 mg/dL NormalTRIG 150-199 mg/dL Borderline highTRIG 200-500 mg/dL High TRIG greater than 500 mg/dL Very highStandard traceable to the Center for Disease Conrtrol and Prevention (CDC) test method. Vitamin D 25 Hydroxy Totalon 01-16-2024 Vitamin D 25 Hydroxy Total 12.7 ng/mL Low 30-100 [facility] Comment on above: Result Comment: SANTY MIN D STATUS 25(OH)VITAMIN D RANGE (ng/mL) Deficient <20 Insufficient 20 to <30 Sufficient 30 to 100 Reference: Davey MF,Merlin NC, Morales FOX, et al. Evaluation,treatment, and prevention of vitamin D deficiency; an Endocrine Society clinical practice guideline. JCEM. 2010; 96(7):1911-30. PERFORMED BY: [place] [address] PATHOLOGIST LEATHER [employer] OSMEL BLUE M.D. Performed By: #### C MP, CBC, ETOH #### [facility] [address] [id number] [facility] Vitamin D+Metabolites [Mass/ volume] in Serum or PlasmaOrdered By: Jack Kwon on 01-16-2024 Vitamin D+Metabolites [Mass/Vol] 12.7 ng/mL Low 30-100 [facility] Comment on above: VITAMIN D STATUS [...] [Catalytic activity/Vol] 80 U/L High 7-52 [facility] Comment on above: Performed By: #### C MP, CBC, ETOH #### [facility] [address] [place] [address] [place] Albumin [Mass/volume] in Ser um or Plasma by Bromocresol green (BCG) dye binding methoOrdered By: Libby Kerr on 01-14-2024 Albumin BCG dye [Mass/Vol] 4.6 g/dL 3.5-5.7 [facility] Alkaline phosphatase [Enzyma tic activity/volume] in Serum or PlasmaOrdered By: Libby Kerr on 01-14-2024 ALP [Catalytic activity/Vol] 115 U/L High 34-104 [facility] Comment on above: Result Comment: PERF ORMED BY: [facility] [address] [facility] [place] [address] PATHOLOGIST LEATHER [employer] BLUE M.D. Performed By: #### C MP, CBC, ETOH #### [facility] [address] [id number] [place] Amphetamine Screen Ql (U)Ord ered By: Libby Kerr on 01-14-2024 Amphetamines Ql (U) Negative Negative [facility] Aspartate aminotransferase [ Enzymatic activity/volume] in Serum or PlasmaOrdered By: Libby Kerr on 01-14-2024 AST [Catalytic activity/Vol] 127 U/L High 13-39 [facility] Comment on above: Performed By: #### C MP, CBC, ETOH #### [address] Automated basophil %Ordered By: Libby Attilamay on 01-14-2024 Basophils/100 WBC (Bld) 3.1 % Normal . [facility] Comment on above: Performed By: #### C MP, CBC, ETOH #### [address] Automated basophil countOrde red By: Libby Attilamay on 01-14-2024 Basophils (Bld) [#/Vol] 0.1 10*3/uL Normal 0.0-0.2 [facility] Comment on above: Result Comment: PERF ORMED BY: [place] [address] PATHOLOGIST LEATHER [employer] BLUE M.D. Performed By: #### C MP, CBC, ETOH #### [address] Automated blood monocyte cou ntOrdered By: Libby Attilamay on 01-14-2024 Monocytes (Bld) [#/Vol] 0.2 10*3/uL Normal 0.0-0.8 [facility] Comment on above: Performed By: #### C MP, CBC, ETOH #### [address] Automated eosinophil %Ordere d By: Libby Kerr on 01-14-2024 Eosinophils/100 WBC (Bld) 0.3 % Normal . [facility] Comment on above: Performed By: #### C MP, CBC, ETOH #### [address] Automated eosinophil countOr dered By: Libby Attilaamy on 01-14-2024 Eosinophils (Bld) [#/Vol] 0.0 10*3/uL Normal 0.0-0.45 [facility] Comment on above: Performed By: #### C MP, CBC, ETOH #### [address] Automated monocyte %Ordered By: Libby Kerr on 01-14-2024 Monocytes/100 WBC (Bld) 3.1 % Normal . [facility] Comment on above: Performed By: #### C MP, CBC, ETOH #### [facility] [address] Automated neutrophil %Ordere d By: Libby Kerr on 01-14-2024 Neutrophils/100 WBC (Bld) 44.5 % Normal . [facility] Comment on above: Performed By: #### C MP, CBC, ETOH #### [facility] [address] Bacteria [Presence] in Urine by AutomatedOrdered By: Libby Kerr on 01-14-2024 Bacteria Auto Ql (U) 1+ [HPF] High None Seen [facility] Barbiturates [Presence] in U rine by Screen methodOrdered By: Libby Kerr on 01-14-2024 Barbiturates Screen Ql (U) Negative Negative [facility] Benzodiazepines Screen Ql (U )Ordered By: Libby Kerr on 01-14-2024 Benzodiazepines Ql (U) Negative Negative [facility] Benzoylecgonine [Presence] i n Urine by Screen methodOrdered By: Libby Kerr on 01-14-2024 Benzoylecgonine Screen Ql (U) Negative Negative [facility] Bilirubin Test strip Ql (U)O rdered By: Libby Kerr on 01-14-2024 Bilirubin Ql (U) Negative Negative [facility] Bilirubin.total [Mass/volume ] in Serum or PlasmaOrdered By: Libby Kerr on 01-14-2024 Bilirubin [Mass/Vol] 0.6 mg/dL Normal 0.3-1.0 [facility] Comment on above: Performed By: #### C MP, CBC, ETOH #### [facility] [address] [place] [address] [place] Calcium [Mass/volume] in Ser um or PlasmaOrdered By: Libby Kerr on 01-14-2024 Calcium [Mass/Vol] 9.2 mg/dL Normal 8.6-10.3 [facility] Comment on above: Performed By: #### C MP, CBC, ETOH #### [place] [address] [place] Cannabinoids [Presence] in U rine by Screen methodOrdered By: Libby Kerr on 01-14-2024 Cannabinoids Screen Ql (U) Negative Negative [facility] Comment on above: These are unconfirme d results and should not be used for legal purposes. Drug Cut-Off Concentration: AMPH 1000 ng/mL DALLAS 200 ng/mL DAVID 200 ng/mL COCM 300 ng/mL OP 300 ng/mL PCP 25 ng/mL THC 20 ng/mL Carbon dioxide, total [Moles /volume] in Serum or PlasmaOrdered By: Libby Kerr on 01-14-2024 CO2 [Moles/Vol] 23.5 mmol/L Normal 21.0-31.0 [facility] Comment on above: Performed By: #### C MP, CBC, ETOH #### [place] [address] [place] Chloride [Moles/volume] in S ben or PlasmaOrdered By: Libby Kerr on 01-14-2024 Chloride [Moles/Vol] 102 mmol/L Normal 98-107 [facility] Comment on above: Performed By: #### C MP, CBC, ETOH #### [address] Color of Urine by AutoOrdere d By: Libby Kerr on 01-14-2024 Color (U) Light-yellow Normal Yellow [facility] Comment on above: Order Comment: Name Collection Type:: Clean-Voided Midstream Performed By: #### C MP, CBC, ETOH #### [place] [address] [place] Complete Blood Count Auto Di ffon 01-14-2024 Mean Corpuscular HGB Conc 35.0 g/dL Normal 32.0-35.0 [facility] Comment on above: Performed By: #### C MP, CBC, ETOH #### [place] [address] [place] Monocytes/100 WBC (Bld) 17.74 % Normal 0.00-20.00 [facility] Comment on above: Result Comment: For adults in ED, MDW > 20.0 may be associated with a higher risk of sepsis during the first 12 hrs of hospital admission Performed By: #### C MP, CBC, ETOH #### [address] NRBC% 0.1 /100{WBC} Normal 0-0.5 [facility] Comment on above: Performed By: #### C MP, CBC, ETOH #### [address] Comprehensive Metabolic Pane mike 01-14-2024 Albumin [Mass/Vol] 4.6 g/dL Normal 3.5-5.7 [facility] Comment on above: Performed By: #### C MP, CBC, ETOH #### [address] GFR/1.73 sq M.predicted MDRD (S/P/Bld) [Vol rate/Area] mL/min/{1.73_m2} Normal [facility] Comment on above: Performed By: #### C MP, CBC, ETOH #### [address] Creatinine [Mass/volume] in Serum or PlasmaOrdered By: Libby Kerr on 01-14-2024 Creatinine [Mass/Vol] 0.58 mg/dL Low 0.60-1.20 [facility] Comment on above: Performed By: #### C MP, CBC, ETOH #### [place] [address] [place] Dipstick and Microscopicon 1 Bacteria,Urine 1+ High None Seen [facility] Comment on above: Order Comment: Name Collection Type:: Clean-Voided Midstream Performed By: #### C MP, CBC, ETOH #### [address] Bilirubin,Urine Negative Normal Negative [facility] Comment on above: Order Comment: Name Collection Type:: Clean-Voided Midstream Performed By: #### C MP, CBC, ETOH #### [address] Glucose Ql (U) Normal Normal Normal [facility] Comment on above: Order Comment: Name Collection Type:: Clean-Voided Midstream Performed By: #### C MP, CBC, ETOH #### [facility] [address] [place] [address] [place] Hyaline Casts,Urine 0-8 Normal 0-8 [facility] Comment on above: Order Comment: Name Collection Type:: Clean-Voided Midstream Performed By: #### C MP, CBC, ETOH #### [place] [address] [place] Nitrite,Urine Negative Normal Negative [facility] Comment on above: Order Comment: Name Collection Type:: Clean-Voided Midstream Performed By: #### C MP, CBC, ETOH #### [place] [address] [place] Occult Blood,Urine Negative Normal Negative [facility] Comment on above: Order Comment: Name Collection Type:: Clean-Voided Midstream Performed By: #### C MP, CBC, ETOH #### [address] RBC,Urine 1-2 Normal 0-4 [facility] Comment on above: Order Comment: Name Collection Type:: Clean-Voided Midstream Performed By: #### C MP, CBC, ETOH #### [address] Specificy [place],Urine 1.005 Normal 1.001-1.03 0 [facility] Comment on above: Order Comment: Name Collection Type:: Clean-Voided Midstream Performed By: #### C MP, CBC, ETOH #### [place] [address] [place] Squamous Epithelial Cell,Urine 3-4 High 0-2 [facility] Comment on above: Order Comment: Name Collection Type:: Clean-Voided Midstream Performed By: #### C MP, CBC, ETOH #### [place] [address] [place] Urobilinogen,Urine Normal Normal Normal [facility] Comment on above: Order Comment: Name Collection Type:: Clean-Voided Midstream Performed By: #### C MP, CBC, ETOH #### [place] [address] [place] WBC,Urine 1-2 Normal 0-4 [facility] Comment on above: Order Comment: Name Collection Type:: Clean-Voided Midstream Performed By: #### C MP, CBC, ETOH #### [place] [address] [place] Drug Screen,Urineon 01-14-20 24 Amphetamine Screen,Urine Negative Normal Negative [facility] Comment on above: Performed By: #### C MP, CBC, ETOH #### [address] Barbiturate Screen,Urine Negative Normal Negative [facility] Comment on above: Performed By: #### C MP, CBC, ETOH #### [place] [address] [place] Benzodiazepines Screen,Urine Negative Normal Negative [facility] Comment on above: Performed By: #### C MP, CBC, ETOH #### [address] Cannabinoid Screen,Urine Negative Normal Negative [facility] Comment on above: Result Comment: Thes e are unconfirmed results and should not be used for legal purposes. Drug Cut-Off Concentration: AMPH 1000 ng/mL DALLAS 200 ng/mL DAVID 200 ng/mL COCM 300 ng/mL OP 300 ng/mL PCP 25 ng/mL THC 20 ng/mL PERFORMED BY: [place] [address] PATHOLOGIST LEATHER [employer] OSMEL BLUE M.D. Performed By: #### C MP, CBC, ETOH #### [address] Cocaine Screen,Urine Negative Normal Negative [facility] Comment on above: Performed By: #### C MP, CBC, ETOH #### [facility] [address] Opiate Screen,Urine Negative Normal Negative [facility] Comment on above: Performed By: #### C MP, CBC, ETOH #### [facility] [address] Phencyclidine Screen,Urine Negative Normal Negative [facility] Comment on above: Performed By: #### C MP, CBC, ETOH #### [facility] [address] ECG 12 lead ECGon 01-14-2024 ECG 12 lead ECG [facility] Main [place] [address] [place] [address] Electrocardiograph Report Signed Patient: Shikha Loera MR#: [id number] : 1985 Acct:[id number] Age/Sex: 38 / F ADM Date: 01/15/24 Loc: Room: [address] [place] [address] Type: ADM IN Attending Dr: Jack Kwon [...] : 450 ms Sinus tachycardia with short AL Otherwise normal ECG When compared with ECG of 14-Feb-2015 09:02, AL interval has decreased Vent. rate has increased by 73 bpm Confirmed by LILIANA MARINA DO ([id number]) on 01/15/2024 4:02:38 PM Referred By: Electronically Signed By: LILIANA MARINA DO Transcribed By: MUS Signed By Liliana Marina DO 01/14 1602 Normal [facility] Epithelial cells.squamous [# /area] in Urine sediment by Automated countOrdered By: Libby Kerr on 01-14-2024 Epithelial cells.squamous Auto (Urine sed) [#/Area] 3-4 [HPF] High 0-2 [facility] Erythrocyte distribution wid th [Ratio] by Automated countOrdered By: Libby Kerr on 01-14-2024 Erythrocyte distribution width (RBC) [Ratio] 13.5 % Normal 11.9-15.3 [facility] Comment on above: Performed By: #### C MP, CBC, ETOH #### [address] Erythrocytes [#/area] in Uri ne sediment by Automated countOrdered By: Libby Kerr on 01-14-2024 RBC Auto (Urine sed) [#/Area] 1-2 [HPF] 0-4 [facility] Erythrocytes [#/volume] in B lood by Automated countOrdered By: Libby Kerr on 01-14-2024 RBC (Bld) [#/Vol] 4.73 10*6/uL Normal 3.60-5.00 [facility] Comment on above: Performed By: #### C MP, CBC, ETOH #### [facility] [address] [place] [address] [place] Ethanol [Mass/volume] in Ser um or PlasmaOrdered By: Libby Kerr on 01-14-2024 Ethanol [Mass/Vol] 456 mg/dL Normal [facility] Comment on above: Performed By: #### C MP, CBC, ETOH #### [address] Ethanol [Mass/Vol] 0.456 % [facility] Ethyl Alcohol Profileon Percent Ethanol 0.456 % Normal [facility] Comment on above: Result Comment: PERF ORMED BY: [place] [address] PATHOLOGIST LEATHER [employer] OSMEL BLUE M.D. Performed By: #### C MP, CBC, ETOH #### [facility] [address] [place] [address] [place] Glucose [Mass/volume] in Ser um or PlasmaOrdered By: Libby Kerr on 01-14-2024 Glucose [Mass/Vol] 107 mg/dL High 70-100 [facility] Comment on above: ADA recommended refe rence rangeRandom Glucose Reference Range is dependent on time and content of last meal. Glucose of more than 200 mg/dL in a nonstressed, ambulatory subject supports the diagnosis of Diabetes Mellitus. Result Comment: [place] om Glucose Reference Range is dependent on time and content of last meal. Glucose of more than 200 mg/dL in a nonstressed, ambulatory subject supports the diagnosis of Diabetes Mellitus. ADA recommended reference range Performed By: #### C MP, CBC, ETOH #### [address] Glucose [Mass/volume] in Uri ne by Test stripOrdered By: Libby Kerr on 01-14-2024 Glucose Test strip (U) [Mass/Vol] Normal mg/dL Normal [facility] HCG ( test) IA.rapi d Ql (U)Ordered By: Libby Kerr on 01-14-2024 HCG ( test) Ql (U) Negative [facility] HCG,Urineon 01-14-2024 Beta HCG ( test) Ql (U) Negative Normal [facility] Comment on above: Order Comment: Name Collection Type:: Clean-Voided Midstream Result Comment: PERF ORMED BY: [place] [address] PATHOLOGIST LEATHER [employer] OSMEL BLUE M.D. Performed By: #### C MP, CBC, ETOH #### [address] Hematocrit [Volume Fraction] of Blood by Automated countOrdered By: Libby Kerr on 01-14-2024 Hematocrit (Bld) [Volume fraction] 43.3 % Normal 34.0-46.4 [facility] Comment on above: Performed By: #### C MP, CBC, ETOH #### [address] Hemoglobin Test strip Ql (U) Ordered By: Libby Kerr on 01-14-2024 Hemoglobin Ql (U) Negative Negative [facility] Hemoglobin [Mass/volume] in BloodOrdered By: Libby Kerr on 01-14-2024 Hemoglobin (Bld) [Mass/Vol] 15.1 g/dL Normal 11.8-15.4 [facility] Comment on above: Performed By: #### C MP, CBC, ETOH #### [facility] [address] [place] [address] [place] Hyaline casts [#/area] in Ur ine sediment by Automated countOrdered By: Libby Kerr on 01-14-2024 Hyaline casts Auto (Urine sed) [#/Area] 0-8 [LPF] 0-8 [facility] Ketones [Presence] in Urine by Test stripOrdered By: Libby Kerr on 01-14-2024 Ketones Ql (U) Negative Normal Negative [facility] Comment on above: Order Comment: Name Collection Type:: Clean-Voided Midstream Performed By: #### C MP, CBC, ETOH #### [facility] [address] [place] [address] [place] Leukocyte esterase [Presence ] in Urine by Test stripOrdered By: Libby Kerr on 01-14-2024 Leukocyte esterase Test strip Ql (U) Negative Normal Negative [facility] Comment on above: Order Comment: Name Collection Type:: Clean-Voided Midstream Performed By: #### C MP, CBC, ETOH #### [facility] [address] [place] [address] [place] Leukocytes [#/area] in Urine sediment by Automated countOrdered By: Libby Kerr on 01-14-2024 WBC Auto (Urine sed) [#/Area] 1-2 [HPF] 0-4 [facility] Leukocytes [#/volume] correc rob for nucleated erythrocytes in Blood by Automated counOrdered By: Libby Kerr on 01-14-2024 WBC corrected for nucl RBC Auto (Bld) [#/Vol] 4.8 10*3/uL 3.8-11.6 [facility] Leukocytes [#/volume] in Blo od by Automated countOrdered By: Libby Kerr on 01-14-2024 WBC (Bld) [#/Vol] 4.8 10*3/uL Normal 3.8-11.6 [facility] Comment on above: Performed By: #### C MP, CBC, ETOH #### [address] Lymphocytes [#/volume] in Bl ood by Automated countOrdered By: Libby Kerr on 01-14-2024 Lymphocytes (Bld) [#/Vol] 2.4 10*3/uL Normal 1.00-4.8 [facility] Comment on above: Performed By: #### C MP, CBC, ETOH #### [address] Lymphocytes/100 leukocytes i n Blood by Automated countOrdered By: Libby Kerr on 01-14-2024 Lymphocytes/100 WBC (Bld) 49.0 % Normal . [facility] Comment on above: Performed By: #### C MP, CBC, ETOH #### [address] MCH [Entitic mass] by Automa rob countOrdered By: Libby Kerr on 01-14-2024 MCH (RBC) [Entitic mass] 32.0 pg Normal 24.7-34.3 [facility] Comment on above: Performed By: #### C MP, CBC, ETOH #### [address] MCHC Auto (RBC) [Mass/Vol]Or dered By: Libby Kerr on 01-14-2024 MCHC (RBC) [Mass/Vol] 35.0 g/dL 32.0-35.0 [facility] MCV [Entitic volume] by Auto mated countOrdered By: Libby Kerr on 01-14-2024 MCV (RBC) [Entitic vol] 91.4 fL Normal 80-100 [facility] Comment on above: Performed By: #### C MP, CBC, ETOH #### [address] Monocyte distribution width [Entitic volume] in Blood by AutomatedOrdered By: Libby Kerr on 01-14-2024 Monocyte distribution width Auto (Bld) [Entitic vol] 17.74 % 0.00-20.00 [facility] Comment on above: For adults in ED, MD W > 20.0 may be associated with a higher risk of sepsis during the first 12 hrs of hospital admission Neutrophils [#/volume] in Bl ood by Automated countOrdered By: Libby Kerr on 01-14-2024 Neutrophils (Bld) [#/Vol] 2.2 10*3/uL Normal 1.8-7.7 [facility] Comment on above: Performed By: #### C MP, CBC, ETOH #### [facility] [address] Nitrite Test strip Ql (U)Ord ered By: Libby Kerr on 01-14-2024 Nitrite Ql (U) Negative Negative [facility] No Panel InformationOrdered By: Libby Kerr on 01-14-2024 Estimated GFR (CKD-EPI) > 60.0 mL/Min [facility] Creatinine Clearance (Chem N/A [facility] Nucleated erythrocytes [Pres ence] in Blood by Automated countOrdered By: Libby Kerr on 01-14-2024 Nucleated RBC Auto Ql (Bld) 0.1 /100{WBC} 0-0.5 [facility] Opiates [Presence] in Urine by Screen methodOrdered By: Libby Kerr on 01-14-2024 Opiates Screen Ql (U) Negative Negative [facility] Phencyclidine Screen Ql (U)O rdered By: Libby Kerr on 01-14-2024 Phencyclidine Ql (U) Negative Negative [facility] Platelet mean volume [Entiti c volume] in Blood by Automated countOrdered By: Libby Kerr on 01-14-2024 Platelet mean volume (Bld) [Entitic vol] 7.5 fL Normal 6.3-10.7 [facility] Comment on above: Performed By: #### C MP, CBC, ETOH #### [facility] [address] Platelets [#/volume] in Bloo d by Automated countOrdered By: Libby Kerr on 01-14-2024 Platelets (Bld) [#/Vol] 192 10*3/uL Normal 150-450 [facility] Comment on above: Performed By: #### C MP, CBC, ETOH #### [facility] [address] [place] [address] [place] Potassium [Moles/volume] in Serum or PlasmaOrdered By: Libby Kerr on 01-14-2024 Potassium [Moles/Vol] 3.6 mmol/L Normal 3.5-5.1 [facility] Comment on above: Performed By: #### C MP, CBC, ETOH #### [place] [address] [place] Protein [Mass/volume] in Ser um or PlasmaOrdered By: Libby Kerr on 01-14-2024 Protein [Mass/Vol] 8.2 g/dL Normal 6.4-8.9 [facility] Comment on above: Performed By: #### C MP, CBC, ETOH #### [place] [address] [place] Protein [Mass/volume] in Uri ne by Test stripOrdered By: Libby Kerr on 01-14-2024 Protein (U) [Mass/Vol] 20 mg/dL High Negative [facility] Comment on above: Order Comment: Name Collection Type:: Clean-Voided Midstream Performed By: #### C MP, CBC, ETOH #### [address] Serum globulin measurement b y calculation (mass/volume)Ordered By: Libby Kerr on 01-14-2024 Globulin (S) [Mass/Vol] 3.6 g/dL [facility] Comment on above: Performed By: #### C MP, CBC, ETOH #### [address] Serum or plasma albumin/glob ulin mass ratioOrdered By: Libby Kerr on 01-14-2024 Albumin/Globulin [Mass ratio] 1.3 {ratio} [facility] Comment on above: Performed By: #### C MP, CBC, ETOH #### [address] Serum or plasma anion gap de terminationOrdered By: Libby Kerr on 01-14-2024 Anion gap [Moles/Vol] 21.1 mmol/L High 6.0-15.0 [facility] Comment on above: Performed By: #### C MP, CBC, ETOH #### [facility] [address] Sodium [Moles/volume] in Ser um or PlasmaOrdered By: Libby Kerr on 01-14-2024 Sodium [Moles/Vol] 143 mmol/L Normal 136-145 [facility] Comment on above: Performed By: #### C MP, CBC, ETOH #### [facility] [address] [place] [address] Specific gravity Test strip (U) [Rel density]Ordered By: Libby Kerr on 01-14-2024 Specific gravity (U) [Rel density] 1.005 1.001-1.03 0 [facility] Urea nitrogen [Mass/volume] in Serum or PlasmaOrdered By: Libby Kerr on 01-14-2024 Urea nitrogen [Mass/Vol] 3 mg/dL Low 7-25 [facility] Comment on above: Performed By: #### C MP, CBC, ETOH #### [facility] [address] [place] [address] Urine appearanceOrdered By: Libby Kerr on 01-14-2024 Appearance (U) Cloudy Critically abnormal Clear [facility] Comment on above: Order Comment: Name Collection Type:: Clean-Voided Midstream Performed By: #### C MP, CBC, ETOH #### [address] Urobilinogen Test strip (U) [Mass/Vol]Ordered By: Libby Kerr on 01-14-2024 Urobilinogen (U) [Mass/Vol] Normal mg/dL Normal [facility] pH of Urine by Test stripOrd ered By: Libby Kerr on 01-14-2024 pH (U) 5.5 [pH] Normal 5.0-9.0 [facility] Comment on above: Order Comment: Name Collection Type:: Clean-Voided Midstream Performed By: #### C MP, CBC, ETOH #### [facility] [address] [place] [address] [place] URINE CULTURE, ROUTINEon Bacteria identified Cx Nom (U) Urine Culture, Routine [facility] Bacteria identified Cx Nom (U) Mixed urogenital maricel [facility] Bacteria identified Cx Nom (U) Less than 10,000 colonies/mL [facility] Bacteria identified Cx Nom (U) Performed at: - [facility] Bacteria identified Cx Nom (U) [address] [place], [place] [id number] [facility] Bacteria identified Cx Nom (U) [employer] Maker: Torsten Vidal PhD, Phone: [phone] [facility] Alanine aminotransferase [En zymatic activity/volume] in Serum or PlasmaOrdered By: Avery Blanca on 08-14-2023 ALT [Catalytic activity/Vol] 29 U/L Normal 7-52 [facility] Comment on above: Order Comment: Qian brooks for Exam Benign essential hypertension Performed By: #### T SH3 wRFLX, LIPID, CBC, CMP #### [facility] [address] [place] [address] [place] Albumin [Mass/volume] in Ser um or Plasma by Bromocresol green (BCG) dye binding methoOrdered By: Avery Blanca on 08-14-2023 Albumin BCG dye [Mass/Vol] 4.8 g/dL 3.5-5.7 [facility] Alkaline phosphatase [Enzyma tic activity/volume] in Serum or PlasmaOrdered By: Avery Blanca on 08-14-2023 ALP [Catalytic activity/Vol] 82 U/L Normal 34-104 [facility] Comment on above: Order Comment: Reaso n for Exam Benign essential hypertension Performed By: #### T SH3 wRFLX, LIPID, CBC, CMP #### [facility] [address] [place] [address] [place] Aspartate aminotransferase [ Enzymatic activity/volume] in Serum or PlasmaOrdered By: Avery Blanca on 08-14-2023 AST [Catalytic activity/Vol] 78 U/L High 13-39 [facility] Comment on above: Order Comment: Reaso n for Exam Benign essential hypertension Performed By: #### T SH3 wRFLX, LIPID, CBC, CMP #### [facility] [address] [place] [address] Automated basophil %Ordered By: Avery Blanca on 08-14-2023 Basophils/100 WBC (Bld) 1.9 % Normal . [facility] Comment on above: Order Comment: Reaso n for Exam Benign essential hypertension Performed By: #### T SH3 wRFLX, LIPID, CBC, CMP #### [address] Automated basophil countOrde red By: Avery Blanca on 08-14-2023 Basophils (Bld) [#/Vol] 0.1 10*3/uL Normal 0.0-0.2 [facility] Comment on above: Order Comment: Reaso n for Exam Benign essential hypertension Result Comment: PERF ORMED BY: [place] [address] PATHOLOGIST LEATHER CARTRIDGE BELT MAKER OSMEL BLUE M.D. Performed By: #### T SH3 wRFLX, LIPID, CBC, CMP #### [address] Automated blood monocyte cou ntOrdered By: Avery Blanca on 08-14-2023 Monocytes (Bld) [#/Vol] 0.4 10*3/uL Normal 0.0-0.8 [facility] Comment on above: Order Comment: Reaso n for Exam Benign essential hypertension Performed By: #### T SH3 wRFLX, LIPID, CBC, CMP #### [facility] [address] [place] [address] Automated eosinophil %Ordere d By: Avery Blanca on 08-14-2023 Eosinophils/100 WBC (Bld) 1.0 % Normal . [facility] Comment on above: Order Comment: Reaso n for Exam Benign essential hypertension Performed By: #### T SH3 wRFLX, LIPID, CBC, CMP #### [facility] [address] [place] [address] Automated eosinophil countOr dered By: Avery Blanac on 08-14-2023 Eosinophils (Bld) [#/Vol] 0.0 10*3/uL Normal 0.0-0.45 [facility] Comment on above: Order Comment: Reaso n for Exam Benign essential hypertension Performed By: #### T SH3 wRFLX, LIPID, CBC, CMP #### [facility] [address] [place] [address] [place] Automated monocyte %Ordered By: Avery Blanca on 08-14-2023 Monocytes/100 WBC (Bld) 11.5 % Normal . [facility] Comment on above: Order Comment: Reaso n for Exam Benign essential hypertension Performed By: #### T SH3 wRFLX, LIPID, CBC, CMP #### [facility] [address] Automated neutrophil %Ordere d By: Avery Blanca on 08-14-2023 Neutrophils/100 WBC (Bld) 57.8 % Normal . [facility] Comment on above: Order Comment: Reaso n for Exam Benign essential hypertension Performed By: #### T SH3 wRFLX, LIPID, CBC, CMP #### [facility] [address] [place] [address] [place] Bilirubin.total [Mass/volume ] in Serum or PlasmaOrdered By: Avery Blanca on 08-14-2023 Bilirubin [Mass/Vol] 0.5 mg/dL Normal 0.3-1.0 [facility] Comment on above: Order Comment: Reaso n for Exam Benign essential hypertension Performed By: #### T SH3 wRFLX, LIPID, CBC, CMP #### [facility] [address] [place] [address] [place] Calcium [Mass/volume] in Ser um or PlasmaOrdered By: Avery Blanca on 08-14-2023 Calcium [Mass/Vol] 9.6 mg/dL Normal 8.6-10.3 [facility] Comment on above: Order Comment: Reaso n for Exam Benign essential hypertension Performed By: #### T SH3 wRFLX, LIPID, CBC, CMP #### [facility] [address] [place] [address] [place] Carbon dioxide, total [Moles /volume] in Serum or PlasmaOrdered By: Avery Blanca on 08-14-2023 CO2 [Moles/Vol] 24.7 mmol/L Normal 21.0-31.0 [facility] Comment on above: Order Comment: Reaso n for Exam Benign essential hypertension Performed By: #### T SH3 wRFLX, LIPID, CBC, CMP #### [facility] [address] [place] [id number] [place] Chloride [Moles/volume] in S ben or PlasmaOrdered By: Avery Blanca on 08-14-2023 Chloride [Moles/Vol] 95 mmol/L Low 98-107 [facility] Comment on above: Order Comment: Reaso n for Exam Benign essential hypertension Performed By: #### T SH3 wRFLX, LIPID, CBC, CMP #### [facility] [address] [place] [address] [place] Cholesterol [Mass/volume] in Serum or PlasmaOrdered By: Avery Blanca on 08-14-2023 Cholesterol [Mass/Vol] 333 mg/dL High 140-200 [facility] Comment on above: Chol less than 200 m g/dl low riskChol 201-239 mg/dl borderline riskChol 240 mg/dl and greater high risk Order Comment: Reaso n for Exam Benign essential hypertension Result Comment: Chol less than 200 mg/dl low risk Chol 201-239 mg/dl borderline risk Chol 240 mg/dl and greater high risk Performed By: #### T SH3 wRFLX, LIPID, CBC, CMP #### [facility] [address] [place] [address] [place] Cholesterol in LDL Calc [Mas s/Vol]Ordered By: Avery Blanca on 08-14-2023 Cholesterol in LDL [Mass/Vol] 181 mg/dL 0-100 [facility] Comment on above: LDL ATP III CLASSIFI CATIONLDL less than 100 mg/dL OptimalLDL 100-129 mg/dL Near or above optimalLDL 130-159 mg/dL Borderline highLDL 160-189 mg/dL HighLDL greater than 189 mg/dL Very high Cholesterol in VLDL Calc [Ma ss/Vol]Ordered By: Avery Blanca on 08-14-2023 Cholesterol in VLDL [Mass/Vol] 22 mg/dL [facility] Complete Blood Count Auto Di ffon 08-14-2023 Mean Corpuscular HGB Conc 34.2 g/dL Normal 32.0-35.0 [facility] Comment on above: Order Comment: Reaso n for Exam Benign essential hypertension Performed By: #### T SH3 wRFLX, LIPID, CBC, CMP #### [address] NRBC% 0.3 /100{WBC} Normal 0-0.5 [facility] Comment on above: Order Comment: Reaso n for Exam Benign essential hypertension Performed By: #### T SH3 wRFLX, LIPID, CBC, CMP #### [address] Comprehensive Metabolic Pane mike 08-14-2023 Albumin [Mass/Vol] 4.8 g/dL Normal 3.5-5.7 [facility] Comment on above: Order Comment: Reaso n for Exam Benign essential hypertension Performed By: #### T SH3 wRFLX, LIPID, CBC, CMP #### [address] GFR/1.73 sq M.predicted MDRD (S/P/Bld) [Vol rate/Area] mL/min/{1.73_m2} Normal [facility] Comment on above: Order Comment: Reaso n for Exam Benign essential hypertension Performed By: #### T SH3 wRFLX, LIPID, CBC, CMP #### [address] Creatinine [Mass/volume] in Serum or PlasmaOrdered By: Avery Blanca on 08-14-2023 Creatinine [Mass/Vol] 0.48 mg/dL Low 0.60-1.20 [facility] Comment on above: Order Comment: Reaso n for Exam Benign essential hypertension Performed By: #### T SH3 wRFLX, LIPID, CBC, CMP #### [facility] [address] [place] [address] Erythrocyte distribution wid th [Ratio] by Automated countOrdered By: Avery Blanca on 08-14-2023 Erythrocyte distribution width (RBC) [Ratio] 14.2 % Normal 11.9-15.3 [facility] Comment on above: Order Comment: Reaso n for Exam Benign essential hypertension Performed By: #### T SH3 wRFLX, LIPID, CBC, CMP #### [facility] [address] [place] [address] [place] Erythrocytes [#/volume] in B lood by Automated countOrdered By: vAery Blanca on 08-14-2023 RBC (Bld) [#/Vol] 4.03 10*6/uL Normal 3.60-5.00 [facility] Comment on above: Order Comment: Reaso n for Exam Benign essential hypertension Performed By: #### T SH3 wRFLX, LIPID, CBC, CMP #### [facility] [address] [place] [address] [place] Glucose [Mass/volume] in Ser um or PlasmaOrdered By: Avery Blanca on 08-14-2023 Glucose [Mass/Vol] 102 mg/dL High 70-100 [facility] Comment on above: ADA recommended refe rence rangeRandom Glucose Reference Range is dependent on time and content of last meal. Glucose of more than 200 mg/dL in a nonstressed, ambulatory subject supports the diagnosis of Diabetes Mellitus. Order Comment: Reaso n for Exam Benign essential hypertension Result Comment: [place] om Glucose Reference Range is dependent on time and content of last meal. Glucose of more than 200 mg/dL in a nonstressed, ambulatory subject supports the diagnosis of Diabetes Mellitus. ADA recommended reference range Performed By: #### T SH3 wRFLX, LIPID, CBC, CMP #### [facility] [address] [place] [address] [place] Hematocrit [Volume Fraction] of Blood by Automated countOrdered By: Avery Blanca on 08-14-2023 Hematocrit (Bld) [Volume fraction] 39.2 % Normal 34.0-46.4 [facility] Comment on above: Order Comment: Reaso n for Exam Benign essential hypertension Performed By: #### T SH3 wRFLX, LIPID, CBC, CMP #### [facility] [address] [place] [address] [place] Hemoglobin [Mass/volume] in BloodOrdered By: Avery Blanca on 08-14-2023 Hemoglobin (Bld) [Mass/Vol] 13.4 g/dL Normal 11.8-15.4 [facility] Comment on above: Order Comment: Reaso n for Exam Benign essential hypertension Performed By: #### T SH3 wRFLX, LIPID, CBC, CMP #### [facility] [address] Leukocytes [#/volume] correc rob for nucleated erythrocytes in Blood by Automated counOrdered By: Avery Blanca on 08-14-2023 WBC corrected for nucl RBC Auto (Bld) [#/Vol] 3.8 10*3/uL 3.8-11.6 [facility] Leukocytes [#/volume] in Blo od by Automated countOrdered By: Avery Blanca on 08-14-2023 WBC (Bld) [#/Vol] 3.8 10*3/uL Normal 3.8-11.6 [facility] Comment on above: Order Comment: Reaso n for Exam Benign essential hypertension Performed By: #### T SH3 wRFLX, LIPID, CBC, CMP #### [facility] [address] Lipid Panelon 08-14-2023 LDL Cholesterol,Calculated 181 mg/dL High 0-100 [facility] Comment on above: Order Comment: Reaso n for Exam Benign essential hypertension Result Comment: LDL ATP III CLASSIFICATION LDL less than 100 mg/dL Optimal LDL 100-129 mg/dL Near or above optimal LDL 130-159 mg/dL Borderline high LDL 160-189 mg/dL High LDL greater than 189 mg/dL Very high Performed By: #### T SH3 wRFLX, LIPID, CBC, CMP #### [facility] [address] Triglyceride w/Reflex 111 mg/dL Normal 0-149 [facility] Comment on above: Order [...] T SH3 wRFLX, LIPID, CBC, CMP #### [facility] [address] [place] [id number] [facility] VLDL CHOLESTEROL 22 mg/dL Normal [facility] Comment on above: Order Comment: Reaso n for Exam Benign essential hypertension Performed By: #### T SH3 wRFLX, LIPID, CBC, CMP #### [facility] [address] [place] [address] Lymphocytes [#/volume] in Bl ood by Automated countOrdered By: Avery Blanca on 08-14-2023 Lymphocytes (Bld) [#/Vol] 1.1 10*3/uL Normal 1.00-4.8 [facility] Comment on above: Order Comment: Reaso n for Exam Benign essential hypertension Performed By: #### T SH3 wRFLX, LIPID, CBC, CMP #### [facility] [address] [place] [address] Lymphocytes/100 leukocytes i n Blood by Automated countOrdered By: Avery Blanca on 08-14-2023 Lymphocytes/100 WBC (Bld) 27.8 % Normal . [facility] Comment on above: Order Comment: Reaso n for Exam Benign essential hypertension Performed By: #### T SH3 wRFLX, LIPID, CBC, CMP #### [facility] [address] [place] [address] MCH [Entitic mass] by Automa rob countOrdered By: Avery Blanca on 08-14-2023 MCH (RBC) [Entitic mass] 33.3 pg Normal 24.7-34.3 [facility] Comment on above: Order Comment: Reaso n for Exam Benign essential hypertension Performed By: #### T SH3 wRFLX, LIPID, CBC, CMP #### [facility] [address] [place] [address] MCHC Auto (RBC) [Mass/Vol]Or dered By: Avery Blanca on 08-14-2023 MCHC (RBC) [Mass/Vol] 34.2 g/dL 32.0-35.0 [facility] MCV [Entitic volume] by Auto mated countOrdered By: Avery Blanca on 08-14-2023 MCV (RBC) [Entitic vol] 97.1 fL Normal 80-100 [facility] Comment on above: Order Comment: Reaso n for Exam Benign essential hypertension Performed By: #### T SH3 wRFLX, LIPID, CBC, CMP #### [facility] [address] Neutrophils [#/volume] in Bl ood by Automated countOrdered By: Avery Blanca on 08-14-2023 Neutrophils (Bld) [#/Vol] 2.2 10*3/uL Normal 1.8-7.7 [facility] Comment on above: Order Comment: Reaso n for Exam Benign essential hypertension Performed By: #### T SH3 wRFLX, LIPID, CBC, CMP #### [facility] [address] No Panel InformationOrdered By: Avery Blanca on 08-14-2023 Estimated GFR (CKD-EPI) > 60.0 mL/Min [facility] Creatinine Clearance (Chem N/A [facility] Nucleated erythrocytes [Pres ence] in Blood by Automated countOrdered By: Avery Blanca on 08-14-2023 Nucleated RBC Auto Ql (Bld) 0.3 /100{WBC} 0-0.5 [facility] Platelet mean volume [Entiti c volume] in Blood by Automated countOrdered By: Avery Blanca on 08-14-2023 Platelet mean volume (Bld) [Entitic vol] 7.1 fL Normal 6.3-10.7 [facility] Comment on above: Order Comment: Reaso n for Exam Benign essential hypertension Performed By: #### T SH3 wRFLX, LIPID, CBC, CMP #### [facility] [address] [place] [address] Platelets [#/volume] in Bloo d by Automated countOrdered By: Avery Blanca on 08-14-2023 Platelets (Bld) [#/Vol] 201 10*3/uL Normal 150-450 [facility] Comment on above: Order Comment: Reaso n for Exam Benign essential hypertension Performed By: #### T SH3 wRFLX, LIPID, CBC, CMP #### [facility] [address] [place] [address] [place] Potassium [Moles/volume] in Serum or PlasmaOrdered By: Avery Blanca on 08-14-2023 Potassium [Moles/Vol] 4.2 mmol/L Normal 3.5-5.1 [facility] Comment on above: Order Comment: Reaso n for Exam Benign essential hypertension Performed By: #### T SH3 wRFLX, LIPID, CBC, CMP #### [facility] [address] Protein [Mass/volume] in Ser um or PlasmaOrdered By: Avery Blanca on 08-14-2023 Protein [Mass/Vol] 7.3 g/dL Normal 6.4-8.9 [facility] Comment on above: Order Comment: Reaso n for Exam Benign essential hypertension Performed By: #### T SH3 wRFLX, LIPID, CBC, CMP #### [facility] [address] Serum globulin measurement b y calculation (mass/volume)Ordered By: Avery Blanca on 08-14-2023 Globulin (S) [Mass/Vol] 2.5 g/dL Normal [facility] Comment on above: Order Comment: Reaso n for Exam Benign essential hypertension Performed By: #### T SH3 wRFLX, LIPID, CBC, CMP #### [facility] [address] [place] [address] Serum or plasma albumin/glob ulin mass ratioOrdered By: Avery Blanca on 08-14-2023 Albumin/Globulin [Mass ratio] 1.9 {ratio} [facility] Comment on above: Order Comment: Reaso n for Exam Benign essential hypertension Performed By: #### T SH3 wRFLX, LIPID, CBC, CMP #### [facility] [address] [place] [address] Serum or plasma anion gap de terminationOrdered By: Avery Blanca on 08-14-2023 Anion gap [Moles/Vol] 14.5 mmol/L Normal 6.0-15.0 [facility] Comment on above: Order Comment: Reaso n for Exam Benign essential hypertension Performed By: #### T SH3 wRFLX, LIPID, CBC, CMP #### [facility] [address] [place] [address] Serum or plasma high density lipoprotein (HDL) cholesterol measurementOrdered By: Avery Blanca on 08-14-2023 Cholesterol in HDL [Mass/Vol] 130 mg/dL High 23-92 [facility] Comment on above: HDL CHOL ATP-III CLA SSIFICATION Cardiovascular RiskHDL > or equal to 60 mg/dL LOWHDL < 40 mg/dL HIGH Order Comment: Reaso n for Exam Benign essential hypertension Result Comment: HDL CHOL ATP-III CLASSIFICATION Cardiovascular Risk HDL > or equal to 60 mg/dL LOW HDL < 40 mg/dL HIGH Performed By: #### T SH3 wRFLX, LIPID, CBC, CMP #### [facility] [address] [place] [address] Serum or plasma total choles terol/high density lipoprotein (HDL) cholesterol mass ratOrdered By: Avery Blanca on 08-14-2023 Cholesterol.total/Chol esterol in HDL [Mass ratio] 2.6 {ratio} Normal <5.0 [facility] Comment on above: Order Comment: Reaso n for Exam Benign essential hypertension Performed By: #### T SH3 wRFLX, LIPID, CBC, CMP #### [facility] [address] [place] [address] Sodium [Moles/volume] in Ser um or PlasmaOrdered By: Avery Blanca on 08-14-2023 Sodium [Moles/Vol] 130 mmol/L Low 136-145 [facility] Comment on above: Order Comment: Reaso n for Exam Benign essential hypertension Performed By: #### T SH3 wRFLX, LIPID, CBC, CMP #### [facility] [address] [place] [address] Thyroid Stim Hormone w/Rflxo n 08-14-2023 Thyroid Stim Hormone w/Rflx 1.86 u[iU]/mL Normal 0.45-5.33 [facility] Comment on above: Order Comment: Reaso n for Exam Benign essential hypertension Result Comment: PERF ORMED BY: [place] [address] PATHOLOGIST LEATHER CARTRIDGE BELT MAKER OSMEL BLUE M.D. Performed By: #### T SH3 wRFLX, LIPID, CBC, CMP #### [facility] [address] [place] [address] Thyrotropin [Units/volume] i n Serum or PlasmaOrdered By: Avery Blanca on 08-14-2023 TSH Qn 1.86 m[IU]/L 0.45-5.33 [facility] Triglyceride [Mass/volume] i n Serum or PlasmaOrdered By: Avery Blanca on 08-14-2023 Triglyceride [Mass/Vol] 111 mg/dL 0-149 [facility] Comment on above: TRIG ATP III CLASSIF ICATIONTRIG less than 150 mg/dL NormalTRIG 150-199 mg/dL Borderline highTRIG 200-500 mg/dL High TRIG greater than 500 mg/dL Very highStandard traceable to the Center for Disease Conrtrol and Prevention (CDC) test method. Urea nitrogen [Mass/volume] in Serum or PlasmaOrdered By: Avery Blanca on 08-14-2023 Urea nitrogen [Mass/Vol] 5 mg/dL Low 7-25 [facility] Comment on above: Order Comment: Reaso n for Exam Benign essential hypertension Performed By: #### T SH3 wRFLX, LIPID, CBC, CMP #### [facility] [address] HbA1c HPLC (Bld) [Mass fract ion]on 06-14-2023 HbA1c (Bld) [Mass fraction] 4.7 % [facility] No Panel Informationon 06-13 Bedside Glucose 110 [facility] A1C HEMOGLOBINon 03-27-2023 HbA1c (Bld) [Mass fraction] 10.6 % [employer] [facility] [place] Other Glucose - FINGER STICKon Glucose [Mass/Vol] 95 mg/dL [facility] [employer] Other HbA1c (Bld) [Mass fraction]o n 03-27-2023 A1C HEMOGLOBIN [facility] [place] Other Consent for Treatmenton 10-07 Consent for Treatment [id number]:12 7 Normal [facility] Discharge Instructionson Discharge Instructions [id number]: 127 Normal [facility] ED Clinical Summaryon 2022 ED Clinical Summary (Inserted Image. Jackie ble to display) [place] [address] ED Clinical Summary Person Information Name: SHIKHA LOERA/[place] Age: 37 Years : 1985 Sex: Female Language: Turkmen PCP: NONE, XXXX Marital Status: Visit Id: [...] 10/21/2022 08:36:13 10/21/2022 08:36:13 10/21/2022 08:36:13 ADDRESS: [address] [place] [address] [place] [id number] PHYS DOC NOTES: MEDICAL INFORMATION: Prescriptions Given: New Medications [id number], [address] [place], [place] [id number], [phone] cyclobenzaprine (cyclobenzaprine 5 mg Tab) 1 Tablets [...] Continue with No Changes Other Medications acetaminophen-hydrocodone ([place] 325 mg-5 mg oral tablet) 1 Tablets [...] pain, # 21 tab(s), Refills(s) 0, Pharmacy: [id number], 167.6, cm, 10/21/22 7:13:00 EDT, Height/Length Dosing, 61.5, kg, 10/21/22 7:13:00 EDT, Weight Dosing lidocaine topical, 1 patch(es), Topical, Daily, 7 EA, Refill(s) 0, apply 12 hours on and 12 hours off daily, [id number], 167.6, cm, 10/21/22 7:13:00 EDT, Height/Length Dosing, 61.5, kg, 10/21/22 7:13:00 EDT, Weight Dosing naproxen, 500 mg = 1 tab(s), Oral, BID, PRN for pain, # 20 tab(s), Refills(s) 0, Pharmacy: [id number], 167.6, cm, 10/21/22 7:13:00 EDT, Height/Length [...] for lung collapse and pneumonia. ? Medicines. Swiv-kbh-ucjzdsu or prescription medicines may be given to control pain. ? Injection of a numbing medicine around the nerve near your injury (nerve block). Follow these instructions at home: Medicines ? Take fhhp-jjb-lfxjicl and prescription medicines only as told by your health care provider. ? Ask your health care provider if the medicine prescribed to you: ? Requires you to avoid driving or using machinery. ? Can cause constipation. You may need to take these actions to prevent or treat constipation: ? Drink enough fluid to keep your urine pale yellow. ? Take bbtq-fou-zisehlq or prescription medicines. ? Eat foods that [...] Reviewed: 06/30/2020 Else[employer] Patient Education ? 2022 [employer] Normal [facility] ED Patient Summaryon 023 ED Patient Summary (Inserted Image. Jackie ble to display) [address] [address] Patient Discharge Instructions Person Information Name: SHIKHA LOERA Age: 37 Years Arrival Date: 10/21/2022 06:56:51 Discharge Diagnosis: Contusion of rib Primary Care Physician: NONE, XXXX Provider Information Primary Provider: Thanh Bal DO Advanced Telephonic Case Manager:None The exam and treatment you received in the Emergency Department were for an urgent problem and are not intended as complete care. It is important that you follow up with a doctor, nurse practitioner, or physician?s assistant professor of criminal justice for ongoing care. If your symptoms become [...] opioids can be used to help relieve cufhilgd-qk-nubrzw pain and are often prescribed following a [...] activity/Vol] 20 U/L Critically low 25-115 [facility] [facility] Comment on above: Performed By: #### L IPA, NGA, CMP #### [facility] [address] [address] [address] Angela Aguero CBC W MANUAL DIFFon 03-26-20 22 ATYPICAL LYMPH # Normal [facility] Comment on above: Performed By: #### L IPA, NGA, CMP #### [facility] [address] [address] [address] Angela Aguero ATYPICAL LYMPH % Normal [facility] Comment on above: Performed By: #### L IPA, NGA, CMP #### [facility] [address] [address] [address] Angela Aguero BAND # 0.0 103/ul Normal 0.0-0.3 [facility] Comment on above: Performed By: #### L IPA, NGA, CMP #### [facility] [address] [address] [address] Angela Aguero BAND % 0 % Normal 0-5 [facility] Comment on above: Performed By: #### L IPA, NGA, CMP #### [facility] [address] [address] [address] Angela Aguero BASOM # 0.07 103/ul Normal 0.00-0.10 [facility] Comment on above: Performed By: #### L IPA NGA, CMP #### [facility] [address] [address] [address] Angela Aguero BASOM % 1.0 % Normal 0.2-2.0 [facility] Comment on above: Performed By: #### L IPA, NGA, CMP #### [facility] [address] [place] [address] Dr. Angela Aguero BLAST # Normal [facility] Comment on above: Performed By: #### L IPA NGA, CMP #### [facility] [address] [place] [address] Dr. Angela Aguero BLAST % Normal [facility] Comment on above: Performed By: #### L IPA NGA, CMP #### [facility] [address] [place] [address] Dr. Angela Aguero CORRECTED WBC Normal 4.0-11.0 [facility] Comment on above: Performed By: #### L IPA, NGA, CMP #### [facility] [address] [place] [address] Dr. Angela Aguero EOS # 0.00 103/ul Normal 0.00-0.70 [facility] Comment on above: Performed By: #### L IPA NGA, CMP #### [facility] [address] [place] [address] Dr. Angela Aguero EOS% 0.0 % Critically low 0.9-7.0 [facility] Comment on above: Performed By: #### L IPA, NGA, CMP #### [facility] [address] [place] [address] Dr. Angela Aguero HCT 42.7 % Normal 36.0-48.0 [facility] Comment on above: Performed By: #### L IPA, NGA, CMP #### [facility] [address] [place] [address] Dr. Angela Aguero HGB 15.0 g/dl Normal 12.0-16.0 [facility] Comment on above: Performed By: #### L IPA, NGA, CMP #### [facility] [address] [place] [address] Dr. Angela Aguero LYMPHM # 0.28 103/ul Critically low 1.20-3.80 [facility] Comment on above: Performed By: #### L IPA, NGA, CMP #### [facility] [address] [place] [address] Dr. Angela Aguero LYMPHM% 4.0 % Critically low 20.5-60.0 [facility] Comment on above: Performed By: #### L IPA, NGA, CMP #### [facility] [address] [place] [address] Dr. Angela Aguero MCH 34.1 pg Critically high 26.7-34.0 [facility] Comment on above: Performed By: #### L IPA, NGA, CMP #### [facility] [address] [place] [address] Dr. Angela Aguero MCHC 35.1 g/dl Normal 29.9-35.2 [facility] Comment on above: Performed By: #### L IPA, NGA, CMP #### [facility] [address] [place] [address] Dr. Angela Aguero MCV 97.0 fL Normal 81.0-99.0 [facility] Comment on above: Performed By: #### L IPA, NGA, CMP #### [facility] [address] [place] [address] Dr. Angela Aguero METAMYELOCYTE # Normal [facility] Comment on above: Performed By: #### L IPA, NGA, CMP #### [facility] [address] [place] [address] Dr. Angela Aguero METAMYELOCYTE % Normal [facility] Comment on above: Performed By: #### L IPA, NGA, CMP #### [facility] [address] [place] [address] Dr. Angela Aguero MONOM# 0.21 103/ul Critically low 0.30-0.80 [facility] Comment on above: Performed By: #### L IPA, NGA, CMP #### [facility] [address] [address] [address] Angela Aguero MONOM% 3.0 % Normal 1.7-12.0 [facility] Comment on above: Performed By: #### L IPA, NGA, CMP #### [facility] [address] [address] [address] Angela Aguero MPV 9.4 fL Critically low 9.5-13.5 [facility] Comment on above: Performed By: #### L IPA, NGA, CMP #### [facility] [address] [address] [address] Angela Aguero MYELOCYTE # Normal [facility] Comment on above: Performed By: #### L IPA, NGA, CMP #### [facility] [address] [place] [address] Dr. Angela Aguero MYELOCYTE % Normal [facility] Comment on above: Performed By: #### L IPA, NGA, CMP #### [facility] [address] [place] [address] Dr. Angela Aguero NRBC Normal [facility] Comment on above: Performed By: #### L IPA, NGA, CMP #### [facility] [address] [address] [address] Angela Aguero PLT 252 103/ul Normal 150-450 [facility] Comment on above: Performed By: #### L IPA, NGA, CMP #### [facility] [address] [address] [address] Angela Aguero RBC 4.40 106/ul Normal 4.20-5.40 [facility] Comment on above: Performed By: #### L IPA, NGA, CMP #### [facility] [address] [place] [address] Dr. Angela Aguero RDW 11.3 % Normal 11.0-15.0 [facility] Comment on above: Performed By: #### L IPA, NGA, CMP #### [facility] [address] [address] [address] Angela Aguero SEG # 6.44 103/ul Normal 1.40-6.50 [facility] Comment on above: Performed By: #### L NGA SMITH, CMP #### [facility] [address] [place] [address] Dr. Angela Aguero SEG % 92.0 % Critically high 43.0-75.0 [facility] Comment on above: Performed By: #### L NGA SMITH, CMP #### [facility] [address] [place] [address] Dr. Angela Aguero WBC 7.0 103/ul Normal 4.0-11.0 [facility] Comment on above: Performed By: #### L NGA SMITH, CMP #### [facility] [address] [place] [address] Dr. Angela Aguero ETHANOL (BLD ALC)on 03-26-20 ALC NOTE NOTE: 80 mg/dl is th e legal limit for a blood alcohol level Normal [facility] Comment on above: Performed By: #### L NGA SMITH, CMP #### [facility] [address] [place] [address] Dr. Angela Aguero Ethanol [Mass/Vol] mg/dL Normal [facility] Comment on above: Performed By: #### L NGA SMITH, CMP #### [facility] [address] [place] [address] Dr. Angela Aguero LIPASEon 03-26-2022 Lipase [Catalytic activity/Vol] 43.0 U/L Critically low 73.0-393.0 [facility] Comment on above: Performed By: #### L NGA SMITH, CMP #### [facility] [address] [place] [address] Dr. Angela Aguero PROF 14(COMP METB)on Albumin [Mass/Vol] 3.9 g/dL Normal 3.4-5.0 [facility] Comment on above: Performed By: #### L NGA SMITH, CMP #### [facility] [address] [place] [address] Dr. Angela Aguero Albumin/Globulin [Mass ratio] 0.9 {ratio} Normal [facility] Comment on above: Performed By: #### L IPA, NGA, CMP #### [facility] [address] [address] [address] Angela Aguero ALP [Catalytic activity/Vol] 129 U/L Critically high 46-116 [facility] Comment on above: Performed By: #### L IPA, NGA, CMP #### [facility] [address] [address] [address] Angela Aguero ALT [Catalytic activity/Vol] 143 U/L Critically high 14-59 [facility] Comment on above: Performed By: #### L IPA, NGA, CMP #### [facility] [address] [address] [address] Angela Aguero Anion gap [Moles/Vol] 16.4 mmol/L Normal [facility] Comment on above: Performed By: #### L IPA, NGA, CMP #### [facility] [address] [address] [address] Angela Aguero AST [Catalytic activity/Vol] 306 U/L Critically high 15-37 [facility] Comment on above: Performed By: #### L IPA, NGA, CMP #### [facility] [address] [address] [address] Angela Aguero Bilirubin [Mass/Vol] 1.7 mg/dL Critically high 0.2-1.0 [facility] Comment on above: Performed By: #### L IPA, NGA, CMP #### [facility] [address] [address] [address] Angela Aguero Calcium [Mass/Vol] 9.4 mg/dL Normal 8.5-10.1 [facility] Comment on above: Performed By: #### L IPA, NGA, CMP #### [facility] [address] [address] [address] Angela Aguero Chloride [Moles/Vol] 99 mmol/L Normal 98-107 [facility] Comment on above: Performed By: #### L IPA, NGA, CMP #### [facility] [address] [address] [address] Angela Aguero CO2 [Moles/Vol] 25.9 mmol/L Normal 21.0-32.0 [facility] Comment on above: Performed By: #### L IPA NGA, CMP #### [facility] [address] [place] [address] Dr. Angela Aguero Creatinine [Mass/Vol] 0.82 mg/dL Normal 0.55-1.02 [facility] Comment on above: Performed By: #### L IPA, NGA, CMP #### [facility] [address] [place] [address] Dr. Angela Aguero EGFR-AF AZERBAIJANI >60 Normal >=60 [facility] Comment on above: Performed By: #### L IPA, NGA, CMP #### [facility] [address] [place] [address] Dr. Angela Aguero EGFR-NON AF AZERBAIJANI >60 Normal >=60 [facility] Comment on above: Performed By: #### L IPA NGA, CMP #### [facility] [address] [place] [address] Dr. Angela Aguero Globulin (S) [Mass/Vol] 4.4 g/dL Normal [facility] Comment on above: Performed By: #### L IPA NGA, CMP #### [facility] [address] [place] [address] Dr. Angela Aguero Glucose [Mass/Vol] 207 mg/dL Critically high 74-106 [facility] Comment on above: Performed By: #### L IPA NGA, CMP #### [facility] [address] [place] [address] Dr. Angela Aguero Potassium [Moles/Vol] 3.3 mmol/L Critically low 3.5-5.1 [facility] Comment on above: Performed By: #### L IPA NGA, CMP #### [facility] [address] [place] [address] Dr. Angela Aguero Protein [Mass/Vol] 8.3 g/dL Critically high 6.4-8.2 [facility] Comment on above: Performed By: #### L IPA, NGA, CMP #### [facility] [address] [place] [address] Dr. Angela Aguero Sodium [Moles/Vol] 138 mmol/L Normal 136-145 [facility] Comment on above: Performed By: #### L NGA SMITH, CMP #### [facility] [id number] Angela Aguero Urea nitrogen [Mass/Vol] 5.0 mg/dL Critically low 7.0-18.0 [facility] Comment on above: Performed By: #### L NGA SMITH, CMP #### [facility] [id number] Angela Aguero Urea nitrogen/Creatinine [Mass ratio] 6.1 mg/mg Normal [facility] Comment on above: Performed By: #### L NGA SMITH, CMP #### [facility] [address] [address] [address] Angela Aguero Coding Summary.on 02-06-2022 Coding Summary. [id number] Gh0bW w+PGhlYWQ+YQ8KIPRbS14krOM vyB5FL9dUWT8SFZDKKZJOIY1S SU5asWE8LTwmP7SlnyBl YukmdMTzFL88EAf8PJK2qPthE QqarW1erWBdS6x4ZbHmHE82zD 93RNdsUNLdUzJ3TbRoyrrokVP y V3thWkBvpCQmVru+PHRhYmxlI HdpZHRoPScxMDAlJyBzdHlsZT 9vFi4zKRSlBSUyeUahuKZqBsM j m0vpUVOsEXxvYG1nzLahC6Bwo FM4VLHif8q5Nn12jVV+PHRkIH U3dFsvQTqvh851MmVzv3wcZGM 3 hZSeXWyvCGG8U21mf6F5LPSxW EKrYVF4iBL8tY6nzEqlvmemC6 NsjXXcOxL4DHZ8vNGxbU2xiFc n yugpaC7iGxj+Q27BXB7SAMHXJ W8ZDgh9F8ClDznbtSL+PC90YW UrFK71hFVrpOYzf3krtOm1JpX w BZWiFNO9jFbfEJmka8DlMBFtT 70gpIAen2O1RFErzIhnxJWzMh VdoJC7dJ3oTZydyfbhg5dkldv n Rdrkq9gdff83uL67I09cLSlmF GUdVTN9EYXgBZTfyEurrb4mkF 9wIi8+ZEvrs8dxh1jhkEq5OcQ w NNMzlcGmwVebUFC1m4OlJh51Q 0FrjIwym9KjOzw1ys38vDQgi7 L8lDI5KNxuSTJdbV3dGMviPpO 6 LFStVmUuvU48uGDqJCjxBm0ec WoavZawHP7cXVXyxbujNUGizV 7eVRKaqALmnMlrCZ8mJFKwcvr m v072QgOwUDG3PKPsmCFiW9Tsh Z7sVvVdSSUmOURiS9CaiQZlTG gcV674ZLwnUeS6OBQgomQaM5Q s JWZpzMifKwY1y4Y2Hx1Ra0Xsj rmvYBG8GIgyQUXqTsErBlUcUh I4A4RgZsj6EAWdeRkaDD5yY5N h PBZgbvaewifpnOK0BRBiWZGkh W50mLDnOLcgAp6hd2I5z102SZ RkOAZcbT38Pk3qbSflCHYsoYQ U tT5bpawxj6fibnuyNlHuPNWmM Mc4IXx4SWUdgMxkNiHrLQZ2Zj Y0TKM1kHZtuP2wdWanjsbkvZ5 w Oyc+L62uqT8eUIO0UZE6kxnwA DBbqdAjSO94ZN22D6HnTsrzjX FibGU+NAHiroGneOqwUT9jQaG j k6hvo3JgVKsmC5WfRSWvGIzgG vn5VMLpKWL8nZS6cU5qCTXeRO wus6P3gAF3V7AownCldv3hx5k s JSJiNXrvO26fhZKfh1N6OJJcx PJ0NKEheGsjCpLhbC32Yrf+PG GyeZywf9IrPbfss9ipc3jhzTm 9 QuFhPSHekcMyvRrzTCX5r7ZmS q92E80hDSjuRZOpCVAbIRNbJX QweQhlsx8itP2bNd2+PGNvbCB 3 dZR1dQ5gHVYpVsG9BXsfG311L cNlcGXpAnadc6hyh1izwCj4Nv PfTOWnsrFnvCvvSDZ5f2DqWx7 8 C80fQVnmMGVlSLNwURGeUMBsn Tskvm9rsN2oRi5+UF3zx3xomh 88eD27rUK+XOKtYFJ6bAfcXRo w PSHbpI7aRGbyEvD9KBUyYiShi O03sFExCPfpQt4xgJxaiPofNF 2fTWBnnxxne093ZfFvk3zaCDU w fZIaQTqpCCD8X17dz8L5QLPmJ ZXwTSI6wYW7vK9znMsbwmcqnG NefZhrshDhvYrmNBxgWLiyV64 6 IHRvcDsnPlBhdGllbnQgTmFtZ Ui7U9XhEhz3ZQYoeGckCZ6guQ SfUCpeRf1tuSzttKsyML6nZXA p lbbyp969WvIrk7jpOTUfyKJvV RwmXWA2Z25mj4N4OYMlDUJqKD F1aLF1nS2gzMnrmxbnmFIivYh g qfYrlGqwOPqrBZaiZ373QLHau MekUfCokuRzLQPaxMW2JJ52FB 82dLTka9I0zHD8S1IxVYRihqb t dssypYA4GLSlTBSbtF49Nf6iv ErnCl2aHESuUTJ7WJDbcSVjB5 RofP5yFtToKMFsQRNxW6QmkJR t MFhsB771EYllHoZ2GCPprwXoA 0DiEJFscFreDiJ7y2T6Vg6GT3 O9HZ75VM44zRYns0T2pRJ7T4D h XDAfpxgylgroyIO2YWAqERPam B54Nm0wsMpdOn6qBQGlKNO6TQ OvjVRlQ7BtcT7aUnQrLQOsPOX w G1XvoWAuDTlbQ088QFioNfY2Z BOofyDaZ5NtCSDsoUtvUvJ8k3 M6Ht3SPXh5JK04JV86gACrg8S 5 vSF1A2RaHBQgwwsyvzanfVZ7I BQxSZKymP74Bg6rnLztGk4nZI HmVKW8YPPnjVLwI3CciI9gOqX j TZLrUBDqS9KloUBhIRwbD438F DuxNmE2MKHkgfTpJ9QjGSWvlR ekGcQ5h7O0Iv5DLROuYL07XJT 5 jYU8UQ65HD06K1XlQsqrkVXtj +PHRhYmxlIHdpZHRoPScxMD YtJnOgyDlnCB8sPv6sYLFvYGA v dIyksJLcTgBjd3fyLHTqTOxdH X0xtGmqL2YjmYF9ZGVng2m4Hj 39F21yC4SwlMY+GJPssCN0iIQ 0 aD4pCaVoFkJ6HBmkZ143ReDhc QJtPngqo2scx5vstMj3LtD5YW OerbBrpFrcSHB8n6DvYz64I68 s IHdpZHRoPSIxNSUiIHZhbGlnb c8bdJ2pUm0+UHCqbKP9kME0oE 8yJiEeOeI4ZIwfR633AfJnsVZ v Byenz4met0znyMh3VsCaBJNqz lLfiQulKSA5w1XhXz81N3CwzR uqy1EmBiw3md39kNQlu9P5jUV 9 K7FkYBKjufgvkOSocYorJI8vG JLvmcxlRYQuyC3hSPThM2i9Vf YkBcO3MYdhJ1DptvB5XMLpdTX g DVjsDLW0U77ps5T9XYCoGZCbC GF8gKF7fF3nhBxtwqsfkIMhmY ssnpLqnBlaOYxdEGskQ744FPI v kNwsOMPixY0dJBOlyQVxqYdrA B6aQTAxhlshAk3NCDhNRDIPUL zyFT9GRbJTWU73TC86vNYmz4N 5 fAL3O7PxWNGmowiofhswqXM7L LFhYCYxgY50mIIjMCpjBa3df9 X0z894LJByANNseP10Ok3vjBb g LJKnxUMBeS5iytmka6povvmzJ gZgOZDeTSu3NQl7FZUcaLkiLl DvACG3HiB3VEO0uTOjqU7kyEw n llzxgI9mXpv+DIBwGVnpRKx7Q TwvdGQ+ESGkEOQ2oOkvJPklWS PftB4yMCXyG1j4DpKdKmI5COk u U8WwJNHprwwyDm27kV1iLfUsA uJ2TIpuA8LrzsA2FEHarIHeIC vdSCM4E59uc4H0HKGfKDNhKOC 7 iPF1dS5xpRrrvckffYAoyJxir eLvyYkuXUecZGtbE424CNNvmM cwSfZ7NVblDERiZH33BH08pTO g l4W5jBM1N0OuQMAgiccuenelt XP6ZGOhPERkjL96bPBjKYbyRi 3qt3G4v285OGIwZFAegG09Lv0 u tQswZNEkpRRPeB4ujxtnf7cbz trhCdWqHJLhPId9FAk5RNGioP owLgHfJBU4AqZ1IBI7bHRaiR6 h zHiryqxymG4gWji+RmVtYWxlP M04AU16kMDhw7V2qAW4T1SwJI HhzqprnkqevJU1GGAnSTUdqD7 7 uISyRWwsUx2ta3O1u394PAArC NBglH00Gm3prVvjNEOejAKEfD 0sinjqa3sjodszNhIuJURrCTl 0 BRe6WYGyfTvhSbRqXNN5QdK1U TM6mBTgrW8bxGfppkbydL4ySx c+KQ5sitpxmvJ3TN24DA05I7O y PjwvdGFibGU+PHRhYmxlIHdpZ XHbXKrmIZVlYqEpwZatNO4gNf 8oZRMdCFVjkBxcwNInZbOdh9o s KOFeGVqjDF7jtNwsM5MfhZQ4X FTnw1n4Ua94A49fM3MozEV+PG JhqYD6mFY5mR5iFbQgNgR0HYa p A567FxQezMWmMpcst8rkv1pse Fe3WkBaGNBjamSusTgkNAA3r0 VwKo81E11vRLoiLFRwOJEgNLG i NQSzeExxbr4wfZ8sOh5+PGNvb BZ4sWC7cA1vPaRwJcA5YLvvR6 44VtGarBZpFqfoS03zP8SlxRC + MVTqXio5NBLchZlkGM2glEDqT UraZk0xPKQ5WaGzXdQiIGzyD5 EcRQSfschwygksiIX4YNPmGJQ w yJ43Da7yeWeuRs0pCLLnTCV0M VVolPOdP4VisU7xSkKrVJHxOB EvP0HshSUaUOmfZ775WOrpXcU 7 LOPqmgWkK4QgLBDdxUwsRxI2q 8Y3Zw7BuGcqsNJmHE1xWlWdGC x5B6SuObo6EZKneEdvBG1leAB k JZnwFs9fvBxewSxaZJ6kUQSdi exsf233ReWei8plDYSzhLUeAE leESJ0X47pk0L6IBSsNGXsVFR 7 jWI8yR8dkYglwfkmyASvqAdvd lWieBonEXylYWfsO704FCUnoN oyUwHMZki3X2GvCer3TOEkyAl s OM7qaQKxOOhbMm3gqTqgnYviK S9bVHBndldcg212KnGqb1teNZ MmpTMuWMbgBRZ7J31nx9P3GJK w PLDzYHJ3gVU4gB4yvRlflhuaz GVmdDsgdmVydGljYWwtYWxpZ2 72OUIpqOkjUl4JLbu1D7YvWrk 0 MVAxjVczPU8jfKClRGsnOq9tl AjyjCaaHS1jQWLwoxjcz307Ig Uwz7wbQISsrDRiQTuvIED4C09 s y1K6GHAyZOBuPDW7xEN1fU2wg GlnbjogbGVmdDsgdmVydGljYW vwMZyfO668CZNftAgvKmGpsUV y OjwvdGQ+EH76dd76K7TlLlgpV iw9RAPbHKM5zPF8kK5lFOGkRT bzv3L8iWX2R1IgpkVsty4ns7p s YXBz (more content not included)... [facility] [place] C Urineon 02-03-2022 Bacteria identified Cx Nom [...] Locations R1: This test was performed at: [facility], [address] [place] [address], [id number] , , [facility] [place] Comment on above: Performed By: #### 2 [id number], [id number] ####[place] [address] Auto Diffon 02-02-2022 Basophils/100 WBC (Bld) 0.9 % Normal 0.0-2.0 [facility] Comment on above: Order Comment: Order Added by Discern Expert. Performed By: #### 2 [id number], [id number], 7686061, 8753933, [id number], [id number] ####[address] [place] [address] Basophils/Leukocytes Auto (Bld) [Pure # fraction] 0.1 E9/L Normal 0.0-0.2 [facility] Comment on above: Order Comment: Order Added by Discern Expert. Performed By: #### 2 [id number], 2408050, [id number], [id number], [id number], [id number] ####[address] [place] [address] Eosinophils/100 WBC (Bld) 0.6 % Normal 0.0-8.0 [facility] Comment on above: Order Comment: Order Added by Discern Expert. Performed By: #### 2 952104, 3353094, 9141423, [id number], [id number], [id number] ####[address] [address] Eosinophils/Leukocytes Auto (Bld) [Pure # fraction] 0.0 E9/L Normal 0.0-0.5 [facility] Comment on above: Order Comment: Order Added by Discern Expert. Performed By: #### 2 340583, 6169513, 0133899, 6367469, [id number], 5673451 ####[address] [place] [address] Lymphocytes/100 WBC (Bld) 22.1 % Normal 14.0-50.0 [facility] Comment on above: Order Comment: Order Added by Discern Expert. Performed By: #### 2 306636, 7999375, 4907906, 3221451, 15751986, [id number] ####[address] [place] [address] Lymphocytes/Leukocytes Auto (Bld) [Pure # fraction] 1.3 E9/L Normal 1.0-4.0 [facility] Comment on above: Order Comment: Order Added by Discern Expert. Performed By: #### 2 [id number], 5346612, 8765288, 8212550, [id number], 7636012 ####[facility] [id number] [place] [address] Monocytes/100 WBC (Bld) 9.5 % Normal 4.0-14.0 [facility] Comment on above: Order Comment: Order Added by Discern Expert. Performed By: #### 2 [id number], 6522329, 9281639, 4225226, [id number], 5945684 ####[address] [place] [address] Monocytes/Leukocytes Auto (Bld) [Pure # fraction] 0.6 E9/L Normal 0.2-1.0 [facility] Comment on above: Order Comment: Order Added by Discern Expert. Performed By: #### 2 328943, 4232959, 0742185, 1688260, 58073480, 1108012 ####[facility] [id number] [place] [address] Neutrophils/100 WBC (Bld) 66.9 % Normal 36.0-75.0 [facility] Comment on above: Order Comment: Order Added by Discern Expert. Performed By: #### 2 846857, 6151983, 7535043, 1222266, 17151683, 6799692 ####[address] [place] [address] Neutrophils/Leukocytes Auto (Bld) [Pure # fraction] 4.0 E9/L Normal 2.0-7.5 [facility] Comment on above: Order Comment: Order Added by Discern Expert. Performed By: #### 2 107412, 1171657, 3728120, 4999391, [id number], [id number] ####[facility] [id number] [place] [address] B hCG Qualon 02-02-2022 Beta hCG Ql Negative Normal [facility] Comment on above: Performed By: #### 2 [id number] ####[facility] [id number] [place] [address] BMPon 02-02-2022 Anion gap [Moles/Vol] 21 mmol/L High 6-16 [facility] Comment on above: Performed By: #### 2 804048, 8874801, 4475537, 4293840, [id number], 9238556 ####[facility] [address] [place] [address] Calcium [Mass/Vol] 9.2 mg/dL Normal 8.9-11.1 [facility] Comment on above: Performed By: #### 2 738618, 4374613, 0948536, 9479418, 47891172, 0308989 ####[facility] [address] [place] [address] Chloride [Moles/Vol] 100 mmol/L Low 101-111 [facility] Comment on above: Performed By: #### 2 882807, 0857389, 2452846, 3092709, 51466977, 0147573 ####[facility] [address] [facility] [address] CO2 [Moles/Vol] 20 mmol/L Low 21-31 [facility] Comment on above: Performed By: #### 2 507399, 0412778, 3417814, 6585664, 72316085, 7184668 ####[facility] [address] [facility] [place] [address] Creatinine [Mass/Vol] 0.7 mg/dL Normal 0.5-1.3 [facility] Comment on above: Performed By: #### 2 049424, 0988658, 1266995, 1186068, 39295711, 5562868 ####[facility] [address] [place] [address] Glucose [Mass/Vol] 176 mg/dL Normal 55-199 [facility] Comment on above: Result Comment: If t his glucose result represents a fasting glucose, interpretation should refer to the following reference range: 55-99 mg/dL Performed By: #### 2 181252, 1359355, 5860879, 7811257, 60249691, 6137111 ####[facility] [address] [place] [address] Potassium [Moles/Vol] 3.4 mmol/L Low 3.5-5.3 [facility] Comment on above: Performed By: #### 2 761253, 3385551, 5179285, 9414817, 06348423, 1853987 ####[facility] [address] [place] [address] Sodium [Moles/Vol] 138 mmol/L Normal 135-145 [facility] Comment on above: Performed By: #### 2 266369, 5147057, 6901666, 0306591, 16314048, 1877343 ####[facility] [address] [place] [address] Urea nitrogen [Mass/Vol] mg/dL Normal 5-21 [facility] Comment on above: Performed By: #### 2 430266, 8262162, 9026413, 3280191, 13412700, 9497150 ####[facility] [address] [place] [address] Urea nitrogen/Creatinine [Mass ratio] UTC Abnormal 10-20 [facility] Comment on above: Result Comment: Resu lt verified by Discern Rule. Performed result UTC (Unable to Calculate) was sent as an Alpha code due the inability to calculate a valid numeric value. Performed By: #### 2 040838, 3141285, 5303271, 9358359, 64057136, 3643014 ####[facility] [address] [place] [address] CBC w/ Auto Diffon Erythrocyte distribution width (RBC) [Ratio] 13.6 % Normal 10.9-14.2 [facility] Comment on above: Performed By: #### 2 472244, 9294563, 7681155, 6585959, 04116930, 4560211 ####[facility] [address] [place] [address] Hematocrit (Bld) [Volume fraction] 44.9 % Normal 34.0-46.0 [facility] Comment on above: Performed By: #### 2 642568, 7531515, 5057354, 6794806, 16487237, 5015339 ####[facility] [address] [place] [address] Hemoglobin (Bld) [Mass/Vol] 15.6 g/dL Normal 12.0-16.0 [facility] Comment on above: Performed By: #### 2 494090, 8444915, 6487774, 1137840, 47608665, 8368632 ####[place] [id number] MCH (RBC) [Entitic mass] 34.3 pg High 27.0-34.0 [facility] Comment on above: Performed By: #### 2 664370, 4266657, 9743907, 5597085, 03385816, 0764331 ####[place] [id number] MCHC (RBC) [Mass/Vol] 34.7 g/dL Normal 31.4-36.0 [facility] Comment on above: Performed By: #### 2 164811, 0249592, 4869739, 7628798, 07604583, 9260107 ####[place] 4179857 MCV (RBC) [Entitic vol] 98.8 fL Normal 80.0-100.0 [facility] Comment on above: Performed By: #### 2 124202, 7808526, 7296832, 7291362, 56742174, 7980318 ####[place] [address] [place] [address] Platelet mean volume (Bld) [Entitic vol] 7.5 fL Normal 6.4-10.8 [facility] Comment on above: Performed By: #### 2 133994, 6483832, 9283950, 7287872, 58435531, 2971679 ####[facility] [address] [place] [address] Platelets (Bld) [#/Vol] 199.0 E9/L Normal 150.0-500. 0 [facility] Comment on above: Performed By: #### 2 868130, 7118730, 1994409, 4438537, 20686026, 3351920 ####[facility] [address] [place] [address] RBC (Bld) [#/Vol] 4.6 E12/L Normal 4.3-5.9 [facility] Comment on above: Performed By: #### 2 607426, 2275198, 7889644, 7136817, 72482143, 3837207 ####[facility] [address] [place] [address] WBC corrected for nucl RBC Auto (Bld) [#/Vol] 6.0 E9/L Normal 4.0-11.0 [facility] Comment on above: Performed By: #### 2 731243, 6362481, 0607775, 5987082, 24227569, 9440060 ####[facility] [address] [place] [address] CT Abdomen/Pelvis w/ Contras ton 02-02-2022 CT [...] Osteopathic Clinic Discharge Instructionson Discharge Instructions [id number]#[id number]:12 7 Normal [facility] ED Clinical Summaryon 2021 ED Clinical Summary (Inserted Image. Jackie ble to display) [place] [id number] ED Clinical Summary Person Information Name: SHIKHA LOERA [facility] Age: 36 Years : 1985 Sex: Female Language: Turkmen PCP: AVERY BLANCA CNP Marital Status: Visit [...] 02/02/2022 00:18:27 02/02/2022 00:18:27 02/02/2022 00:18:27 ADDRESS: [address] [place] [id number] PHYS DOC NOTES: MEDICAL INFORMATION: Prescriptions Given: New Medications Printed Prescriptions acetaminophen-hydrocodone (Medina 325 mg-5 mg oral tablet) 1 Tablets By Mouth every 6 hours as needed for pain. Refills: 0. sulfamethoxazole-trimetho prim (Bactrim DS 800 mg-160 mg Tab) 1 Tablets By Mouth 2 times a day for 10 Days. Refills: 0. PATIENT EDUCATION INFORMATION: Instructions: Pyelonephritis, Adult, Dtlc-ci-Tkef Follow up: With: Address: When: AVERY BLANCA [address] [facility] [address] [place] [phone] Business (1) In 3 days 02/05/2022 Comments: [...] Crohn's disease sees a GI doctor at [facility] who she is unsure of [...] home. Is given a short course of Medina to go home with. She is given [...] you start to feel better. ? Take illj-vfq-nvuxnyv and prescription medicines only as told by [...] 05/03/2005 Document Revised: 01/28/2019 Document Reviewed: 01/28/2019 [employer] Patient Education ? 2020 [employer] Normal [facility] ED Patient Summaryon 022 ED Patient Summary (Inserted Image. Jackie ble to display) [place] [id number] Patient Discharge Instructions Person Information Name: SHIKHA LOERA Age: 36 Years Arrival Date: 02/01/2022 21:23:41 Discharge Diagnosis: Acute pyelonephritis Primary Care Physician: AVERY BLANCA CNP Provider Information Primary Provider: Judith Mock DO Advanced Telephonic Case Manager:None The exam and treatment you received in the Emergency Department were for an urgent problem and are not intended as complete care. It is important that you follow up with a doctor, nurse practitioner, or physician?s assistant professor of criminal justice for ongoing care. If your symptoms become [...] AVERY BLANCA [address] [facility] [address] [place] [phone] Business (1) In 3 days 02/05/2022 Comments: [...] participating provider. Patient Education Materials: Pyelonephritis, Adult, Jgkd-yt-Ozcl A MESSAGE TO ALL PATIENTS REGARDING OPIOIDS PRESCRIPTION OPIOIDS: WHAT YOU NEED TO KNOW Prescription opioids can be used to help relieve cgyubzfw-ny-uujvnx pain and are often prescribed following a [...] Comment on above: Performed By: #### 2 620846, 7142677, 4019789, 6754976, 76848806, 7579059 ####[facility] [address] [place] [address] Albumin/Globulin (S) [Mass conc ratio] 1.1 Normal 1.1-2.2 [facility] Comment on above: Performed By: #### 2 161331, 1810843, 9165054, 4527241, 63488579, 6339759 ####[place] [address] [place] [address] ALP [Catalytic activity/Vol] 98 Int._Unit/L Normal 21-98 [facility] Comment on above: Performed By: #### 2 330493, 8485862, 9700285, 3740767, 82598056, 1355862 ####[address] [address] ALT No additional P-5'-P [Catalytic activity/Vol] 57 Int._Unit/L High 6-46 [facility] Comment on above: Performed By: #### 2 894901, 4977686, 9647621, 4420953, 32248218, 8947635 ####[address] [address] AST [Catalytic activity/Vol] 157 Int._Unit/L High 5-43 [facility] Comment on above: Performed By: #### 2 694601, 9405723, 6875480, 3780549, 07163453, 8787044 ####[address] [address] Bilirubin [Mass/Vol] 1.4 mg/dL High 0.0-1.1 [facility] Comment on above: Performed By: #### 2 136457, 0809223, 0866071, 0503504, 11962488, 6800401 ####[address] [address] Bilirubin.direct [Mass/Vol] 0.5 mg/dL High 0.1-0.4 [facility] Comment on above: Performed By: #### 2 258790, 1848658, 1846852, 3746895, 83021416, 2656337 ####[facility] [address] [place] [address] Bilirubin.indirect [Mass or moles/Vol] 0.9 mg/dL Normal 0.1-0.9 [facility] Comment on above: Performed By: #### 2 506893, 7509983, 2571020, 6497377, 28316679, 9396992 ####[facility] [address] [place] [address] Globulin (S) [Mass/Vol] 4.1 g/dL High 1.4-4.0 [facility] Comment on above: Performed By: #### 2 425152, 1542296, 6947356, 1223045, 18140342, 4322798 ####[facility] [address] [place] [address] Protein [Mass/Vol] 8.6 g/dL High 6.0-7.8 [facility] Comment on above: Performed By: #### 2 205080, 4538613, 9927460, 2621716, 29316227, 9807084 ####[place] [address] [place] [address] Lipase Levelon 02-02-2022 Lipase [Catalytic activity/Vol] 57 U/L Normal 13-58 [facility] Comment on above: Performed By: #### 2 011477, 1238124, 4043198, 4998390, 93500795, 6048872 ####[facility] [address] [place] [address] Prescriptions/Work Noteson 1 Prescriptions/Work Notes [id number]#[id number]:12 7 Normal [facility] RAD - Preliminary Cat Scan R eporton 02-02-2022 RAD - Preliminary Cat Scan Report [id number]#[id number]:12 7 Normal [facility] UA With Cult Reflexon 2021 Bacteria LM Ql (Urine sed) 2+ /HPF Abnormal Trace [facility] Comment on above: Performed By: #### 2 408824, 32676763 ####[facility] [address] [place] [address] Bilirubin Ql (U) Negative Normal Negative [facility] Comment on above: Performed By: #### 2 562935, 35977026 ####[facility] [address] [place] [address] Clarity (U) SL CLOUDY Invalid Interpretation Code [facility] Comment on above: Performed By: #### 2 298839, 16631429 ####[facility] [address] [place] [address] Color (U) YELLOW Normal Yellow [facility] Comment on above: Performed By: #### 2 021694, 23874702 ####[facility] [address] [place] [address] Epithelial cells.squamous LM.HPF (Urine sed) [#/Area] 3-4 Normal 0-2 [facility] Comment on above: Performed By: #### 2 874852, 34418563 ####[facility] [address] [place] [address] Glucose Test strip (U) [Mass/Vol] Negative Normal Negative [facility] Comment on above: Performed By: #### 2 829344, 43689639 ####[facility] [address] [place] [address] Hemoglobin Ql (U) 1+ Abnormal Negative [facility] Comment on above: Performed By: #### 2 372134, 99524658 ####[facility] [address] [place] [address] Ketones (U) [Mass/Vol] Negative Normal Negative [facility] Comment on above: Performed By: #### 2 964656, 18615815 ####[facility] [address] [place] [address] Hardesty.plasma/Hardesty .RBC (Bld) [Mass ratio] 4-20 Normal 0-3 [facility] Comment on above: Performed By: #### 2 755326, 89448130 ####[facility] [address] [place] [address] Nitrite Ql (U) Negative Normal Negative [facility] Comment on above: Performed By: #### 2 611608, 18043823 ####[facility] [address] [place] [address] pH (U) 5.0 [pH] Invalid Interpretation Code 5.0-9.0 [facility] Comment on above: Performed By: #### 2 264654, 53481021 ####[facility] [address] [place] [address] Protein (U) [Mass/Vol] Negative Normal Negative [facility] Comment on above: Performed By: #### 2 926111, 58564597 ####[place] 4179857 Specific gravity (U) [Rel density] <=1.005 Invalid Interpretation Code 1.005-1.03 0 [facility] Comment on above: Performed By: #### 2 001964, 27806347 ####[place] [address] Type of Urine collection method Clean Catch Normal [facility] Comment on above: Performed By: #### 2 576186, 37031876 ####[place] 4179857 Urobilinogen Qn (U) 0.2 {[place]cetta'U}/dL Normal 0.0-1.0 [facility] Comment on above: Performed By: #### 2 338349, 39340550 ####[place] 4179857 WBC Auto Ql (U) 2+ Abnormal Negative [facility] Comment on above: Performed By: #### 2 160015, 83638108 ####[facility] [address] [place], [place] [address] WBC LM.HPF (Urine sed) [#/Area] 26-30 Abnormal 0-5 [facility] Comment on above: Performed By: #### 2 960512, 51292620 ####[facility] [address] [place] [address] US Gallbladderon 02-02-2022 US Gallbladder Exam Date/Time: [...] race adjusted. AA=. Performed By: #### 2 495118, 6337292, 0824784, 8658646, 86790195, 1427667 ####[facility] [address] [place] [address] GFR/1.73 sq M.predicted among non-blacks MDRD (S/P/Bld) [Vol rate/Area] mL/min/{1.73_m2} Normal >=59 [facility] Comment on above: Order Comment: Order added by Discern Expert. Result Comment: Licensing Officer cj kidney disease could be indicated at eGFR's of less than 60 mL/min/1.73m2. Kidney failure is indicated at less than 15 mL/min/1.73m2. Performed By: #### 2 042458, 9474184, 1630817, 2755736, 27810131, 3001349 ####[facility] [address] [place] [address] CHEMISTRYOrdered By: Jorge ruby on 02-01-2022 Albumin [...] [Mass/Vol] mg/dL Normal 5 - 21 mg/dL [facility] Remisol CHEMISTRYOrdered By: SYSTEM SYSTEM on 02-01-2022 GFR/1.73 sq M.predicted among blacks MDRD (S/P/Bld) [Vol rate/Area] mL/min/1.73 m2 Normal >=59mL/min /1.73 m2 [facility] Chem S GFR/1.73 sq M.predicted among non-blacks MDRD (S/P/Bld) [Vol rate/Area] mL/min/1.73 m2 Normal >=59mL/min /1.73 m2 [facility] Chem S Urea nitrogen/Creatinine [Mass ratio] Unable to Calculate Invalid Interpretation Code [facility] Remisol Consent for Treatmenton 01-08 Consent for Treatment [id number]#[id number]:12 7 Normal [facility] HEMATOLOGYOrdered By: [...] Nom (U) >100,000 cfu/ml Gram Negative [facility] species [facility] SEROLOGYOrdered By: Jorge pop on 02-01-2022 Beta hCG Ql Negative (02/01/22 9:55 PM) Normal [facility] Man Sero URINALYSISOrdered By: Jorge Esquivel on [...] PM) Normal Negative [facility] UA Auto SS Hardesty.plasma/Hardesty .RBC (Bld) [Mass ratio] 4-20 /HPF Normal [...] [facility] UA Auto SS Urobilinogen Qn (U) 0.7413495 {Concetta'U}/dL Normal 0.0 - 1.0 EU/dL [facility] UA Auto SS WBC Auto Ql (U) 2+ *ABN* (02/01/22 11:42 PM) Invalid Interpretation Code Negative [facility] UA Auto SS WBC LM.HPF (Urine sed) [#/Area] 26-30 /HPF Invalid Interpretation Code 0-5/HPF [facility] UA Auto SS Albumin [Mass/volume] in Ser um or PlasmaOrdered By: Delfino Reese on 01-18-2022 Albumin [Mass/Vol] 3.8 g/dL 3.2-5.5 [facility] C reactive protein [Mass/vol ume] in Serum or PlasmaOrdered By: Delfino Reese on 01-18-2022 CRP [Mass/Vol] 1.9 mg/dL 0.0-1.0 [facility] Creatinine and Glomerular fi ltration rate.predicted panel (S/P/Bld)Ordered By: Delfino Reese on 01-18-2022 Creatinine [Mass/Vol] 0.57 mg/dL 0.44-1.03 [facility] Erythrocyte sedimentation ra te by Photometric methodOrdered By: Delfino Reese on 01-18-2022 ESR Photometric method (Bld) [Velocity] 8 mm/hr 0-19 [facility] Estimated glomerular filtrat ion rate (GFR) non- AmericanOrdered By: Delfino Reese on 01-18-2022 GFR/1.73 sq M.predicted among non-blacks MDRD (S/P/Bld) [Vol rate/Area] > 60 mL/Min [facility] Folate [Mass/volume] in Seru m or PlasmaOrdered By: Delfino Reese on 01-18-2022 Folate [Mass/Vol] 10.4 ng/mL >5.9 [facility] Comment on above: Folate reference ran ge: >5.9 ng/mlThe WHO technical consultation on folate and vitamin d16zmwvkltftwta has determined that folate concentrations lessthan 4 ng/ml are considered deficient. Globulin Calc (S) [Mass/Vol] Ordered By: Delfino Reese on 01-18-2022 Globulin (S) [Mass/Vol] 3.2 g/dL [facility] Laboratory - Chemistry and C hemistry - challengeOrdered By: Delfino Reese on 01-18-2022 Cobalamin (Vitamin B12) [Mass/Vol] 588 pg/mL 180-914 [facility] No Panel InformationOrdered By: Delfino Reese on 01-18-2022 Estimated GFR () > 60 mL/Min [facility] Comment on above: GFR estimated refere nce range: According to KDOQI guidelines, <60 ml/min/1.73m2 is sufficient to diagnose a patient with chronic kidney disease. Pharmacy Creatinine Clearance (Chem N/A [facility] Protein [Mass/volume] in Ser um or PlasmaOrdered By: Delfino Reese on 01-18-2022 Protein [Mass/Vol] 7.0 g/dL 6.1-7.9 [facility] Serum or plasma alanine montes otransferase measurement without P-5'-P (enzymatic activiOrdered By: Delfino Reese on 01-18-2022 ALT No additional P-5'-P [Catalytic activity/Vol] 58 U/L [facility] Serum or plasma albumin/glob ulin mass ratioOrdered By: Delfino Reese on 01-18-2022 Albumin/Globulin [Mass ratio] 1.2 {ratio} [facility] Serum or plasma alkaline florencio sphatase measurement (enzymatic activity/volume)Ordered By: Delfino Reese on 01-18-2022 ALP [Catalytic activity/Vol] 90 U/L 32-92 [facility] Serum or plasma anion gap de terminationOrdered By: Delfino Reese on 01-18-2022 Anion gap [Moles/Vol] 16.5 mmol/L 6.0-15.0 [facility] Serum or plasma aspartate am inotransferase measurement (enzymatic activity/volume)Ordered By: Delfino Reese on 01-18-2022 AST [Catalytic activity/Vol] 84 U/L [facility] Serum or plasma calcium archie urement (mass/volume)Ordered By: Delfino Reese on 01-18-2022 Calcium [Mass/Vol] 9.2 mg/dL 8.2-10.2 [facility] Serum or plasma chloride luz surement (moles/volume)Ordered By: Delfino Reese on 01-18-2022 Chloride [Moles/Vol] 105 mmol/L 95-114 [facility] Serum or plasma glucose archie urement (mass/volume)Ordered By: Delfino Reese on 01-18-2022 Glucose [Mass/Vol] 114 mg/dL 70-100 [facility] Comment on above: ADA recommended refe rence rangeRandom Glucose Reference Range is dependent on time and content of last meal. Glucose of more than 200 mg/dL in a nonstressed, ambulatory subject supports the diagnosis of Diabetes Mellitus. Serum or plasma potassium me asurement (moles/volume)Ordered By: Delfino Reese on 01-18-2022 Potassium [Moles/Vol] 3.5 mmol/L 3.5-5.1 [facility] Serum or plasma sodium measu rement (moles/volume)Ordered By: Delfino Reese on 01-18-2022 Sodium [Moles/Vol] 143 mmol/L 136-146 [facility] Serum or plasma total biliru bin measurement (mass/volume)Ordered By: Delfino Reese on 01-18-2022 Bilirubin [Mass/Vol] 0.8 mg/dL 0.3-1.2 [facility] Serum or plasma total carbon dioxide measurement (moles/volume)Ordered By: Delfino Reese on 01-18-2022 CO2 [Moles/Vol] 25.0 mmol/L 22.0-30.0 [facility] Serum or plasma urea nitroge n measurement (mass/volume)Ordered By: Delfino Reese on 01-18-2022 Urea nitrogen [Mass/Vol] 1 mg/dL 9-23 [facility] TSH DL <= 0.005 mIU/L QnOrde red By: Delfino Reese on 01-18-2022 TSH Qn 7.46 m[IU]/L 0.45-5.33 [facility] Thyroxine (T4) free [Mass/vo lume] in Serum or PlasmaOrdered By: Delfino Reese on 01-18-2022 Free T4 [Mass/Vol] 0.71 ng/dL 0.61-1.12 [facility] Bacteria identified Anaer cx Nom (Unsp spec)Ordered By: Delfino Reese on 12-26-2021 Anaerobic microbial culture No Anaerobes Isolated 3 Days [facility] ABO and Rh group post transf usion reaction Nom (Bld)Ordered By: Delfino Reese on 12-23-2021 Microscopic observation Gram stain Nom (Unsp spec) [facility] Albumin [Mass/volume] in Cer ebral spinal fluidOrdered By: Delfino Reese on 12-23-2021 Albumin (CSF) [Mass/Vol] 14 mg/dL 7-29 [facility] Albumin [Mass/volume] in Ser um or PlasmaOrdered By: Delfino Reese on 12-23-2021 Albumin [Mass/Vol] 4.2 g/dL 3.8-4.8 [facility] CSF IgG/albumin ratioOrdered By: Delfino Reese on 12-23-2021 IgG/Albumin (CSF) [Mass ratio] 0.10 0.00-0.25 [facility] Cerebrospinal fluid IgG inde xOrdered By: Delfino Reese on 12-23-2021 IgG clearance/Albumin clearance (S+CSF) [Ratio] 0.6 0.0-0.7 [facility] Cerebrospinal fluid glucose measurement (mass/volume)Ordered By: Delfino Reese on 12-23-2021 Glucose (CSF) [Mass/Vol] 87 mg/dL 40-70 [facility] Cerebrospinal fluid post-antonia trifugation appearance determinationOrdered By: Delfino Reese on 12-23-2021 Appearance (Spun CSF) Colorless Colorless [facility] Cerebrospinal fluid sample t ube volume measurementOrdered By: Delfino Reese on 12-23-2021 Specimen volume (CSF) 2.0 mL [facility] Color CSFOrdered By: Delfino Reese on 12-23-2021 Color (CSF) Colorless Colorless [facility] IgG [Mass/volume] in Cerebra l spinal fluidOrdered By: Delfino Reese on 12-23-2021 IgG (CSF) [Mass/Vol] 1.4 mg/dL 0.0-6.7 [facility] IgG [Mass/volume] in Serum o r PlasmaOrdered By: Delfino Reese on 12-23-2021 IgG [Mass/Vol] 708 mg/dL 586-1602 [facility] IgG synthesis rate [Mass/aleksey e] in Serum and CSF by calculationOrdered By: Delfino Reese on 12-23-2021 IgG synthesis rate Calc (S+CSF) [Mass/Time] -1.0 mg/day -9.9 TO +3.3 [facility] Comment on above: Performed at: [facility] [email or web address] [address] [place], [place] [id number] [employer] Maker: Torsten Vidal PhD, Phone: [phone] Performed at: [facility] [employer] [address] [place], [place] [id number] Director: Torsten Vidal PhD, Phone: [phone] Manual cerebrospinal fluid e rythrocytes count (number/volume)Ordered By: Delfino Reese on 12-23-2021 RBC Manual cnt (CSF) [#/Vol] 77 /uL [facility] Comment on above: The reference interv al and other method performance specifications have not been established for this body fluid. The test result must be integrated into the clinical context for interpretation. No Panel InformationOrdered By: Delfino Reese on 12-23-2021 CSF Appearance Clear Clear [facility] CSF Eosinophils N/A [facility] CSF Lymphocytes 1 [facility] Comment on above: The reference interv al and other method performance specifications have not been established for this body fluid. The test result must be integrated into the clinical context for interpretation. CSF Monocytes 1 [facility] Comment on above: The reference interv al and other method performance specifications have not been established for this body fluid. The test result must be integrated into the clinical context for interpretation. CSF Myelin Basic Protein 3.3 ng/mL 0.0-3.7 [facility] Comment on above: Results of this test are labeled for research purposes only by the assay's teacher of the handicapped. The performance characteristics of this assay have not been established by the teacher of the handicapped. The result should not be used for treatment or for diagnostic purposes without confirmation of the diagnosis by another medically established diagnostic product or procedure. The performance characteristics were determined by [employer]. Performed at: [address] [id number] [employer] Maker: Charlie Manriquez MD, Phone: [phone] Results of this test are labeled for research purposes onlyby the assay's teacher of the handicapped. The performancecharacteristics of this assay have not been established bythe teacher of the handicapped. The result should not be used fortreatment or for diagnostic purposes without confirmationof the diagnosis by another medically establisheddiagnostic product or procedure. The performancecharacteristics were determined by [employer] [employer] [facility].Performed at: - [address] [id number] Director: Charlie Manriquez MD, Phone: [phone] CSF Neutrophils N/A [facility] CSF Total Cells Counted 2 [facility] CSF Tube Number Tube number: 1 [facility] Nucleated cells [#/volume] i n Cerebral spinal fluid by Manual countOrdered By: Delfino Reese on 12-23-2021 Nucleated cells Manual cnt (CSF) [#/Vol] 0.002 10*3/uL 0-5 [facility] Protein [Mass/volume] in Cer ebral spinal fluidOrdered By: Delfino Reese on 12-23-2021 Protein (CSF) [Mass/Vol] 23 mg/dL 15-45 [facility] Protein fractions.oligoclona l bands.intrathecal [Presence] in Serum and CSFOrdered By: Delfino Reese on 12-23-2021 Protein fractions.oligoclonal bands.intrathecal Ql (S+CSF) See comment . [facility] Comment on above: Zero (0) oligoclonal [...] (IEF) and immunoblotting methodology. Performed at: [address] [id number] [employer] Maker: Torsten Vidal PhD, Phone: [phone] Zero (0) oligoclonal bands were observed in [...] using [employer] (IEF) and immunoblotting methodology.Performed at: [address] [id number] Director: Torsten Vidal PhD, Phone: [phone] Basophils Auto (Bld) [#/Vol] Ordered By: Avery Blanca on 11-25-2021 Basophils (Bld) [#/Vol] 0.0 10*3/uL 0.0-0.2 [facility] Basophils/100 WBC Auto (Bld) Ordered By: Avery Blanca on 11-25-2021 Basophils/100 WBC (Bld) 0.5 % . [facility] Blood hemoglobin measurement (mass/volume)Ordered By: Avery Blanca on 11-25-2021 Hemoglobin (Bld) [Mass/Vol] 15.4 g/dL 11.8-15.4 [facility] Blood leukocytes automated c ount (number/volume)Ordered By: Avery Blanca on 11-25-2021 WBC (Bld) [#/Vol] 5.3 10*3/uL 4.5-11.0 [facility] Blood thiamine measurement ( moles/volume)Ordered By: Avery Blanca on 11-25-2021 Thiamine (Bld) [Moles/Vol] 113.7 nmol/L 66.5-200.0 [facility] Comment on above: This test was develo ped and its performance characteristics determined by [employer] It has not been cleared or approved by the Food and Drug Administration. Performed at: [address] [id number] [employer]: Charlie Manriquez MD, Phone: [phone] This test was develo ped and its performance characteristicsdetermined by [facility]. It has not been cleared orapproved by the Food and Drug Administration.Performed at: [facility] [address] [id number] Director: Charlie Manriquez MD, Phone: [phone] Body fluid albumin measureme nt (mass/volume)Ordered By: Avery Blanca on 11-25-2021 Albumin (Body fld) [Mass/Vol] 4.0 g/dL 3.2-5.5 [facility] Creatinine and Glomerular fi ltration rate.predicted panel (S/P/Bld)Ordered By: Avery Blanca on 11-25-2021 Creatinine [Mass/Vol] 0.67 mg/dL 0.44-1.03 [facility] Eosinophils Auto (Bld) [#/Vo l]Ordered By: Avery Blanca on 11-25-2021 Eosinophils (Bld) [#/Vol] 0.1 10*3/uL 0.0-0.45 [facility] Eosinophils/100 WBC Auto (Bl d)Ordered By: Avery Blanca on 11-25-2021 Eosinophils/100 WBC (Bld) 1.3 % . [facility] Erythrocyte distribution wid th Auto (RBC) [Ratio]Ordered By: Avery Blanca on 11-25-2021 Erythrocyte distribution width (RBC) [Ratio] 13.5 % 11.9-15.3 [facility] Erythrocyte sedimentation ra te by Photometric methodOrdered By: Avery Blanca on 11-25-2021 ESR Photometric method (Bld) [Velocity] 14 mm/hr 0- [facility] Estimated glomerular filtrat ion rate (GFR) non- AmericanOrdered By: Avery Blanca on 11-25-2021 GFR/1.73 sq M.predicted among non-blacks MDRD (S/P/Bld) [Vol rate/Area] > 60 mL/Min [facility] Folate [Mass/volume] in Seru m or PlasmaOrdered By: Avery Blanca on 11-25-2021 Folate [Mass/Vol] 9.2 ng/mL >5.9 [facility] Comment on above: Folate reference ran ge: >5.9 ng/ml The WHO technical consultation on folate and vitamin b12 deficiencies has determined that folate concentrations less than 4 ng/ml are considered deficient. Folate reference ran ge: >5.9 ng/mlThe WHO technical consultation on folate and vitamin [id number] has determined that folate concentrations lessthan 4 ng/ml are considered deficient. Globulin Calc (S) [Mass/Vol] Ordered By: Avery Blanca on 11-25-2021 Globulin (S) [Mass/Vol] 2.9 g/dL [facility] Hematocrit Auto (Bld) [Volum e fraction]Ordered By: Avery Blanca on 11-25-2021 Hematocrit (Bld) [Volume fraction] 45.2 % 34.0-46.4 [facility] Laboratory - Chemistry and C hemistry - challengeOrdered By: Avery Blanca on 11-25-2021 Cobalamin (Vitamin B12) [Mass/Vol] 421 pg/mL 180-914 [facility] Laboratory - Hematology and Cell countsOrdered By: Avery Blanca on 11-25-2021 Nucleated RBC/100 WBC (Bld) [Ratio] 0.6 % 0-0.5 [facility] Lymphocytes Auto (Bld) [#/Vo l]Ordered By: Avery Blanca on 11-25-2021 Lymphocytes (Bld) [#/Vol] 0.8 10*3/uL 1.00-4.8 [facility] Lymphocytes/100 WBC Auto (Bl d)Ordered By: Avery Blanca on 11-25-2021 Lymphocytes/100 WBC (Bld) 14.8 % . [facility] MCH Auto (RBC) [Entitic mass ]Ordered By: Avery Blanca on 11-25-2021 MCH (RBC) [Entitic mass] 32.3 pg 24.7-34.3 [facility] MCHC Auto (RBC) [Mass/Vol]Or dered By: Avery Blanca on 11-25-2021 MCHC (RBC) [Mass/Vol] 34.0 g/dL 32.0-35.0 [facility] MCV Auto (RBC) [Entitic vol] Ordered By: Avery Blanca on 11-25-2021 MCV (RBC) [Entitic vol] 95.1 fL 80-100 [facility] Monocytes Auto (Bld) [#/Vol] Ordered By: Avery Blanca on 11-25-2021 Monocytes (Bld) [#/Vol] 0.2 10*3/uL 0.0-0.8 [facility] Monocytes/100 WBC Auto (Bld) Ordered By: Avery Blanca on 11-25-2021 Monocytes/100 WBC (Bld) 3.4 % . [facility] Neutrophils Auto (Bld) [#/Vo l]Ordered By: Avery Blanca on 11-25-2021 Neutrophils (Bld) [#/Vol] 4.2 10*3/uL 1.8-7.7 [facility] Neutrophils/100 WBC Auto (Bl d)Ordered By: Avery Blanca on 11-25-2021 Neutrophils/100 WBC (Bld) 80.0 % . [facility] No Panel InformationOrdered By: Avery Blanca on 11-25-2021 Estimated GFR () > 60 mL/Min [facility] Comment on above: GFR estimated refere nce range: According to KDOQI guidelines, <60 ml/min/1.73m2 is sufficient to diagnose a patient with chronic kidney disease. Pharmacy Creatinine Clearance (Chem N/A [facility] Platelet mean volume Auto (B ld) [Entitic vol]Ordered By: Avery Blanca on 11-25-2021 Platelet mean volume (Bld) [Entitic vol] 9.1 fL 6.3-10.7 [facility] Platelets Auto (Bld) [#/Vol] Ordered By: Avery Blanca on 11-25-2021 Platelets (Bld) [#/Vol] 210 10*3/uL 150-450 [facility] Protein [Mass/volume] in Ser um or PlasmaOrdered By: Avery Blanca on 11-25-2021 Protein [Mass/Vol] 6.9 g/dL 6.1-7.9 [facility] RBC Auto (Bld) [#/Vol]Ordere d By: Avery Blanca on 11-25-2021 RBC (Bld) [#/Vol] 4.75 10*6/uL 3.60-5.00 [facility] Serum or plasma alanine montes otransferase measurement without P-5'-P (enzymatic activiOrdered By: Avery Blanca on 11-25-2021 ALT No additional P-5'-P [Catalytic activity/Vol] 130 U/L 10-60 [facility] Serum or plasma albumin/glob ulin mass ratioOrdered By: Avery Blanca on 11-25-2021 Albumin/Globulin [Mass ratio] 1.4 {ratio} [facility] Serum or plasma alkaline florencio sphatase measurement (enzymatic activity/volume)Ordered By: Avery Blanca on 11-25-2021 ALP [Catalytic activity/Vol] 74 U/L 32-92 [facility] Serum or plasma aspartate am inotransferase measurement (enzymatic activity/volume)Ordered By: Avery Blanca on 11-25-2021 AST [Catalytic activity/Vol] 117 U/L 10-42 [facility] Serum or plasma calcium archie urement (mass/volume)Ordered By: Avery Blanca on 11-25-2021 Calcium [Mass/Vol] 9.6 mg/dL 8.2-10.2 [facility] Serum or plasma chloride luz surement (moles/volume)Ordered By: Avery Blanca on 11-25-2021 Chloride [Moles/Vol] 98 mmol/L 95-114 [facility] Serum or plasma glucose archie urement (mass/volume)Ordered By: Avery Blanca on 11-25-2021 Glucose [Mass/Vol] 121 mg/dL 70-100 [facility] Comment on above: ADA recommended refe rence [...] on 11-25-2021 Potassium [Moles/Vol] 3.6 mmol/L 3.5-5.1 [facility] Serum or plasma sodium measu rement (moles/volume)Ordered By: Avery Blanca on 11-25-2021 Sodium [Moles/Vol] 139 mmol/L 136-146 [facility] Serum or plasma total biliru bin measurement (mass/volume)Ordered By: Avery Blanca on 11-25-2021 Bilirubin [Mass/Vol] 0.8 mg/dL 0.3-1.2 [facility] Serum or plasma total carbon dioxide measurement (moles/volume)Ordered By: Avery Blanca on 11-25-2021 CO2 [Moles/Vol] 28.4 mmol/L 22.0-30.0 [facility] Serum or plasma urea nitroge n measurement (mass/volume)Ordered By: Avery Blanca on 11-25-2021 Urea nitrogen [Mass/Vol] 5 mg/dL 9-23 [facility] TSH DL <= 0.005 mIU/L QnOrde red By: Avery Blanca on 11-25-2021 TSH Qn 2.02 m[IU]/L 0.45-5.33 [facility] AMYLASEon 11-20-2021 Amylase [Catalytic activity/Vol] 15 U/L Critically low 25-115 [facility] Comment on above: Performed By: #### L IPA, NGA, CMP #### [facility] [address] [place] [address] Dr. Angela Aguero CBC W MANUAL DIFFon 11-21-19 22 ATYPICAL LYMPH # Normal [facility] Comment on above: Performed By: #### C KRISHAN #### [facility] [address] [address] [address] Angela Aguero ATYPICAL LYMPH % Normal [facility] Comment on above: Performed By: #### C KRISHAN #### [facility] [address] [address] [address] Angela Aguero BAND # 0.2 103/ul Normal 0.0-0.3 [facility] Comment on above: Performed By: #### C BCMAN #### [facility] [address] [place] [address] Dr. Angela Aguero BAND % 3 % Normal 0-5 [facility] Comment on above: Performed By: #### C BCMAN #### [facility] [address] [place] [address] Dr. Angela Aguero BASOM # 0.00 103/ul Normal 0.00-0.10 [facility] Comment on above: Performed By: #### C BCMAN #### [facility] [address] [place] [address] Dr. Angela Aguero BASOM % 0.0 % Critically low 0.2-2.0 [facility] Comment on above: Performed By: #### C BCSOLANGE #### [facility] [address] [place] [address] Dr. Angela Aguero BLAST # Normal [facility] Comment on above: Performed By: #### C KRISHAN #### [facility] [address] [place] [address] Dr. Angela Aguero BLAST % Normal [facility] Comment on above: Performed By: #### C BCSOLANGE #### [facility] [address] [place] [address] Dr. Angela Aguero CORRECTED WBC Normal 4.0-11.0 [facility] Comment on above: Performed By: #### C BCMAN #### [facility] [address] [place] [address] Dr. Angela Aguero EOS # 0.00 103/ul Normal 0.00-0.70 [facility] Comment on above: Performed By: #### C BCMAN #### [facility] [address] [place] [address] Dr. Angela Aguero EOS% 0.0 % Critically low 0.9-7.0 [facility] Comment on above: Performed By: #### C BCSOLANGE #### [facility] [address] [place] [address] Dr. Angela Aguero HCT 41.2 % Normal 36.0-48.0 [facility] Comment on above: Performed By: #### C KRISHAN #### [facility] [address] [place] [address] Dr. Angela Aguero HGB 14.2 g/dl Normal 12.0-16.0 [facility] Comment on above: Performed By: #### C KRISHAN #### [facility] [address] [place] [address] Dr. Angela Aguero LYMPHM # 0.19 103/ul Critically low 1.20-3.80 [facility] Comment on above: Performed By: #### C KRISHAN #### [facility] [address] [place] [address] Dr. Angela Aguero LYMPHM% 3.0 % Critically low 20.5-60.0 [facility] Comment on above: Performed By: #### C KRISHAN #### [facility] [address] [place] [address] Dr. Angela Aguero MCH 32.4 pg Normal 26.7-34.0 [facility] Comment on above: Performed By: #### C KRISHAN #### [facility] [address] [place] [address] Dr. Angela Aguero MCHC 34.5 g/dl Normal 29.9-35.2 [facility] Comment on above: Performed By: #### C KRISHAN #### [facility] [address] [place] [address] Dr. Angela Aguero MCV 94.1 fL Normal 81.0-99.0 [facility] Comment on above: Performed By: #### C KRISHAN #### [facility] [address] [place] [address] Dr. Angela Aguero METAMYELOCYTE # Normal [facility] Comment on above: Performed By: #### C KRISHAN #### [facility] [address] [place] [address] Dr. Angela Aguero METAMYELOCYTE % Normal [facility] Comment on above: Performed By: #### C KRISHAN #### [facility] [address] [address] [address] Angela Aguero MONOM# 0.32 103/ul Normal 0.30-0.80 [facility] Comment on above: Performed By: #### C KRISHAN #### [facility] [address] [place] [address] Dr. Angela Aguero MONOM% 5.0 % Normal 1.7-12.0 [facility] Comment on above: Performed By: #### C KRISHAN #### [facility] [address] [place] [address] Dr. Angela Aguero MPV 10.4 fL Normal 9.5-13.5 [facility] Comment on above: Performed By: #### C KRISHAN #### [facility] [address] [place] [address] Dr. Angela Aguero MYELOCYTE # Normal [facility] Comment on above: Performed By: #### Jeannette NICKERSON #### [facility] [address] [place] [address] Dr. Angela Aguero MYELOCYTE % Normal [facility] Comment on above: Performed By: #### C KRISHAN #### [facility] [address] [place] [address] Dr. Angela Aguero NRBC Normal [facility] Comment on above: Performed By: #### C KRISHAN #### [facility] [address] [place] [address] Dr. Angela Aguero PLT 204 103/ul Normal 150-450 [facility] Comment on above: Performed By: #### C KRISHAN #### [facility] [address] [place] [address] Dr. Angela Aguero RBC 4.38 106/ul Normal 4.20-5.40 [facility] Comment on above: Performed By: #### C KRISHAN #### [facility] [address] [place] [address] Dr. Angela Aguero RDW 12.4 % Normal 11.0-15.0 [facility] Comment on above: Performed By: #### C KRISHAN #### [facility] [address] [place] [address] Dr. Angela Aguero SEG # 5.70 103/ul Normal 1.40-6.50 [facility] Comment on above: Performed By: #### C KRISHAN #### [facility] [address] [address] [address] Angela Aguero SEG % 89.0 % Critically high 43.0-75.0 [facility] Comment on above: Performed By: #### C KRISHAN #### [facility] [address] [address] [address] Angela gAuero WBC 6.4 103/ul Normal 4.0-11.0 [facility] Comment on above: Performed By: #### C KRISHAN #### [facility] [address] [address] [address] Angela Aguero CRPon 11-20-2021 CRP [Mass/Vol] mg/L Normal <=1.0 [facility] Comment on above: Performed By: #### L NGA SMITH, CMP #### [facility] [address] [place] [address] Dr. Angela Aguero LIPASEon 11-20-2021 Lipase [Catalytic activity/Vol] 28.0 U/L Critically low 73.0-393.0 [facility] Comment on above: Performed By: #### L NGA SMITH, CMP #### [facility] [address] [place] [address] Dr. Angela Aguero PROF 14(COMP METB)on 022 Albumin [Mass/Vol] 3.4 g/dL Normal 3.4-5.0 [facility] Comment on above: Performed By: #### L NGA SMITH, CMP #### [facility] [address] [place] [address] Dr. Angela Aguero Albumin/Globulin [Mass ratio] 1.0 {ratio} Normal [facility] Comment on above: Performed By: #### L NGA SMITH, CMP #### [facility] [address] [place] [address] Dr. Angela Aguero ALP [Catalytic activity/Vol] 63 U/L Normal 46-116 [facility] Comment on above: Performed By: #### L IPA, NGA, CMP #### [facility] [address] [address] [address] Angela Aguero ALT [Catalytic activity/Vol] 55 U/L Normal 14-59 [facility] Comment on above: Performed By: #### L IPA, NGA, CMP #### [facility] [address] [address] [address] Angela Aguero Anion gap [Moles/Vol] 13.3 mmol/L Normal [facility] Comment on above: Performed By: #### L IPA, NGA, CMP #### [facility] [address] [address] [address] Angela Aguero AST [Catalytic activity/Vol] 39 U/L Critically high 15-37 [facility] Comment on above: Performed By: #### L IPA, NGA, CMP #### [facility] [address] [place] [address] Dr. Angela Aguero Bilirubin [Mass/Vol] 1.1 mg/dL Critically high 0.2-1.0 [facility] Comment on above: Performed By: #### L IPA, NGA, CMP #### [facility] [address] [place] [address] Dr. Angela Aguero Calcium [Mass/Vol] 7.9 mg/dL Critically low 8.5-10.1 [facility] Comment on above: Performed By: #### L IPA, NGA, CMP #### [facility] [address] [place] [address] Dr. Angela Aguero Chloride [Moles/Vol] 103 mmol/L Normal 98-107 [facility] Comment on above: Performed By: #### L IPA, NGA, CMP #### [facility] [address] [place] [address] Dr. Angela Aguero CO2 [Moles/Vol] 26.9 mmol/L Normal 21.0-32.0 [facility] Comment on above: Performed By: #### L IPA, NGA, CMP #### [facility] [address] [place] [address] Dr. Angela Aguero Creatinine [Mass/Vol] 0.81 mg/dL Normal 0.55-1.02 [facility] Comment on above: Performed By: #### L NGA SMITH, CMP #### [facility] [address] [place] [address] Dr. Angela Aguero EGFR-AF AZERBAIJANI >60 Normal >=60 [facility] Comment on above: Performed By: #### L NGA SMITH, CMP #### [facility] [address] [address] [address] Angela Aguero EGFR-NON AF AZERBAIJANI >60 Normal >=60 [facility] Comment on above: Performed By: #### L NGA SMITH, CMP #### [facility] [address] [place] [address] Dr. Angela Aguero Globulin (S) [Mass/Vol] 3.3 g/dL Normal [facility] Comment on above: Performed By: #### L NGA SMITH, CMP #### [facility] [address] [place] [address] Dr. Angela Aguero Glucose [Mass/Vol] 185 mg/dL Critically high 74-106 [facility] Comment on above: Performed By: #### L NGA SMITH, CMP #### [facility] [address] [place] [address] Dr. Angela Aguero Potassium [Moles/Vol] 3.2 mmol/L Critically low 3.5-5.1 [facility] Comment on above: Performed By: #### L NGA SMITH, CMP #### [facility] [address] [place] [address] Dr. Angela Aguero Protein [Mass/Vol] 6.7 g/dL Normal 6.4-8.2 [facility] Comment on above: Performed By: #### L NGA SIMTH, CMP #### [facility] [address] [place] [address] Dr. Angela Aguero Sodium [Moles/Vol] 140 mmol/L Normal 136-145 [facility] Comment on above: Performed By: #### L NGA SMITH, CMP #### [facility] [address] [place] [address] Dr. Angela Aguero Urea nitrogen [Mass/Vol] 8.0 mg/dL Normal 7.0-18.0 [facility] Comment on above: Performed By: #### L IPA, NGA, CMP #### [facility] [address] [place] [address] Dr. Angela Aguero Urea nitrogen/Creatinine [Mass ratio] 9.9 mg/mg Normal [facility] Comment on above: Performed By: #### L IPA, NGA, CMP #### [facility] [address] [place] [address] Dr. Angela Aguero SED RATE WESTERGRENon 2021 SED RATE 3 mm/hr Normal <=20 [facility] Comment on above: Performed By: #### S EDR #### [facility] [address] [place] [address] Dr. Angela Aguero AMYLASEon 11-19-2021 Amylase [Catalytic activity/Vol] 17 U/L Critically low 25-115 [facility] Comment on above: Performed By: #### C MP, NGA, CRP, LIPA #### [facility] [address] [place] [address] Dr. Angela Aguero CBC AUTO DIFFon 11-19-2021 BASO # 0.0 103/ul Normal 0.0-0.1 [facility] Comment on above: Performed By: #### L IPA, NGA, CMP #### [facility] [address] [place] [address] Dr. Angela Aguero Basophils/100 WBC (Bld) 0.6 % Normal 0.2-2.0 [facility] Comment on above: Performed By: #### L IPA, NGA, CMP #### [facility] [address] [place] [address] Dr. Angela Aguero EO # 0.0 103/ul Normal 0.0-0.7 [facility] Comment on above: Performed By: #### L IPA, NGA, CMP #### [facility] [address] [place] [address] Dr. Angela Aguero Eosinophils/100 WBC (Bld) 0.0 % Critically low 0.9-7.0 [facility] Comment on above: Performed By: #### L NGA SMITH, CMP #### [facility] [address] [place] [address] Dr. Angela Aguero Erythrocyte distribution width (RBC) [Ratio] 12.9 % Normal 11.0-15.0 [facility] Comment on above: Performed By: #### L NGA SMITH, CMP #### [facility] [address] [place] [address] Dr. Angela Aguero Hematocrit (Bld) [Volume fraction] 43.3 % Normal 36.0-48.0 [facility] Comment on above: Performed By: #### L NGA SMITH, CMP #### [facility] [address] [place] [address] Dr. Angela Aguero Hemoglobin (Bld) [Mass/Vol] 14.7 g/dL Normal 12.0-16.0 [facility] Comment on above: Performed By: #### L NGA SMITH, CMP #### [facility] [address] [place] [address] Dr. Angela Aguero IG # 0.02 10e3/ul Normal 0.00-0.03 [facility] Comment on above: Performed By: #### L NGA SMITH, CMP #### [facility] [address] [place] [address] Dr. Angela Aguero IG % 0.6 % Critically high 0.0-0.5 [facility] Comment on above: Performed By: #### L NGA SMITH, CMP #### [facility] [address] [place] [address] Dr. Angela Aguero LYMPH # 0.3 103/ul Critically low 1.2-3.8 [facility] Comment on above: Performed By: #### L NGA SMITH, CMP #### [facility] [address] [place] [address] Dr. Angela Aguero Lymphocytes/100 WBC (Bld) 8.9 % Critically low 20.5-60.0 [facility] Comment on above: Performed By: #### L NGA SMITH, CMP #### [facility] [address] [place] [address] Dr. Angela Aguero MANUAL DIFF REQ NO Normal [facility] Comment on above: Performed By: #### L NGA SMITH, CMP #### [facility] [address] [place] [address] Dr. Angela Aguero MCH (RBC) [Entitic mass] 32.5 pg Normal 26.7-34.0 [facility] Comment on above: Performed By: #### L NGA SMITH, CMP #### [facility] [address] [place] [address] Dr. Angela Aguero MCHC (RBC) [Mass/Vol] 33.9 g/dL Normal 29.9-35.2 [facility] Comment on above: Performed By: #### L NGA SMITH, CMP #### [facility] [address] [place] [address] Dr. Angela Aguero MCV (RBC) [Entitic vol] 95.6 fL Normal 81.0-99.0 [facility] Comment on above: Performed By: #### L NGA SMITH, CMP #### [facility] [address] [place] [address] Dr. Angela Aguero MONO # 0.0 103/ul Critically low 0.3-0.8 [facility] Comment on above: Performed By: #### L NGA SMITH, CMP #### [facility] [address] [place] [address] Dr. Angela Aguero Monocytes/100 WBC (Bld) 0.6 % Critically low 1.7-12.0 [facility] Comment on above: Performed By: #### L NGA SMITH, CMP #### [facility] [address] [place] [address] Dr. Angela Aguero NEUT # 3.1 103/ul Normal 1.4-6.5 [facility] Comment on above: Performed By: #### L NGA SMITH, CMP #### [facility] [address] [place] [address] Dr. Angela Aguero Neutrophils/100 WBC (Bld) 89.3 % Critically high 43.0-75.0 [facility] Comment on above: Performed By: #### L IPA, NGA, CMP #### [facility] [address] [address] [address] Angela Aguero Platelet mean volume (Bld) [Entitic vol] 10.6 fL Normal 9.5-13.5 [facility] Comment on above: Performed By: #### L IPA, NGA, CMP #### [facility] [address] [address] [address] Angela Aguero PLT 212 103/ul Normal 150-450 [facility] Comment on above: Performed By: #### L IPA, NGA, CMP #### [facility] [address] [address] [address] Angela Aguero RBC 4.53 106/ul Normal 4.20-5.40 [facility] Comment on above: Performed By: #### L IPA, NGA, CMP #### [facility] [address] [place] [address] Dr. Angela Aguero WBC 3.5 103/ul Critically low 4.0-11.0 [facility] Comment on above: Performed By: #### L IPA, NGA, CMP #### [facility] [address] [place] [address] Dr. Angela Aguero CRPon 11-19-2021 CRP [Mass/Vol] mg/L Normal <=1.0 [facility] Comment on above: Performed By: #### C MP, NGA, CRP, LIPA #### [facility] [address] [address] [address] Angela Aguero ER URINE PROFILEon 2 Bilirubin Ql (U) Negative Normal NEGATIVE [facility] Comment on above: Performed By: #### L IPA, NGA, CMP #### [facility] [address] [place] [address] Dr. Angela Aguero Clarity (U) CLEAR Normal CLEAR [facility] Comment on above: Performed By: #### L IPA, NGA, CMP #### [facility] [address] [place] [address] Dr. Angela Aguero Color (U) DK. ORANGE Abnormal YELLOW [facility] Comment on above: Performed By: #### L IPA NGA, CMP #### [facility] [address] [address] [address] Angela CARRASCO A micrscopic examina tion will be performed if indicated. Normal [facility] Comment on above: Performed By: #### L IPA NGA, CMP #### [facility] [address] [address] [address] Angela Aguero Glucose Ql (U) Negative Normal NEGATIVE [facility] Comment on above: Performed By: #### L IPA NGA, CMP #### [facility] [address] [address] [address] Angela Aguero Hemoglobin Ql (U) Negative Normal NEGATIVE [facility] Comment on above: Performed By: #### L IPA NGA, CMP #### [facility] [address] [place] [address] Dr. Angela Aguero Ketones Ql (U) 40 mg/dl Abnormal NEGATIVE [facility] Comment on above: Performed By: #### L IPA NGA, CMP #### [facility] [address] [place] [address] Dr. Angela Aguero LEUKOCYTES Negative Normal NEGATIVE [facility] Comment on above: Performed By: #### L IPA NGA, CMP #### [facility] [address] [place] [address] Dr. Angela Aguero Nitrite Ql (U) Negative Normal NEGATIVE [facility] Comment on above: Performed By: #### L IPA NGA, CMP #### [facility] [address] [place] [address] Dr. Angela Aguero pH (U) 5.5 [pH] Normal 5-9 [facility] Comment on above: Performed By: #### L IPA NGA, CMP #### [facility] [address] [place] [address] Dr. Angela Aguero Protein (U) [Mass/Vol] 30 mg/dL Abnormal NEGAT DARIO/ TRACE [facility] Comment on above: Performed By: #### L IPA NGA, CMP #### [facility] [address] [place] [address] Dr. Angela Aguero SPEC GRAVITY >=1.030 Abnormal 1.005-<=1. 025 [facility] Comment on above: Performed By: #### L IPANGA, CMP #### [facility] [address] [place] [address] Dr. Angela Aguero UR MICRO IND INDICATED Normal [facility] Comment on above: Performed By: #### L IPA NGA, CMP #### [facility] [address] [place] [address] Dr. Angela Aguero Urobilinogen Qn (U) 1.0 {Concetta'U}/dL Normal 0.2 - 1. 0 [facility] Comment on above: Performed By: #### L IPA NGA, CMP #### [facility] [address] [place] [address] Dr. Angela Aguero LIPASEon 11-19-2021 Lipase [Catalytic activity/Vol] 22.0 U/L Critically low 73.0-393.0 [facility] Comment on above: Performed By: #### C MP, NGA, CRP, LIPA #### [facility] [address] [place] [address] Dr. Angela Aguero PROF 14(COMP METB)on 022 Albumin [Mass/Vol] 3.7 g/dL Normal 3.4-5.0 [facility] Comment on above: Performed By: #### C MP, NGA, CRP, LIPA #### [facility] [address] [place] [address] Dr. Angela Aguero Albumin/Globulin [Mass ratio] 1.0 {ratio} Normal [facility] Comment on above: Performed By: #### C MP, NGA, CRP, LIPA #### [facility] [address] [place] [address] Dr. Angela Aguero ALP [Catalytic activity/Vol] 73 U/L Normal 46-116 [facility] Comment on above: Performed By: #### C MP, NGA, CRP, LIPA #### [facility] [address] [place] [address] Dr. Angela Aguero ALT [Catalytic activity/Vol] 78 U/L Critically high 14-59 [facility] Comment on above: Performed By: #### C MP, NGA, CRP, LIPA #### [facility] [address] [address] [address] Angela Aguero Anion gap [Moles/Vol] 16.5 mmol/L Normal Th [facility] Comment on above: Performed By: #### C MP, NGA, CRP, LIPA #### [facility] [address] [address] [address] Angela Aguero AST [Catalytic activity/Vol] 62 U/L Critically high 15-37 [facility] Comment on above: Performed By: #### C MP, NGA, CRP, LIPA #### [facility] [address] [place] [address] Dr. Angela Aguero Bilirubin [Mass/Vol] 1.3 mg/dL Critically high 0.2-1.0 [facility] Comment on above: Performed By: #### C MP, NGA, CRP, LIPA #### [facility] [address] [place] [address] Dr. Angela Aguero Calcium [Mass/Vol] 8.2 mg/dL Critically low 8.5-10.1 [facility] Comment on above: Performed By: #### C MP, NGA, CRP, LIPA #### [facility] [address] [place] [address] Dr. Angela Aguero Chloride [Moles/Vol] 101 mmol/L Normal 98-107 [facility] Comment on above: Performed By: #### C MP, NGA, CRP, LIPA #### [facility] [address] [place] [address] Dr. Angela Aguero CO2 [Moles/Vol] 23.5 mmol/L Normal 21.0-32.0 [facility] Comment on above: Performed By: #### C MP, NGA, CRP, LIPA #### [facility] [address] [place] [address] Dr. Angela Aguero Creatinine [Mass/Vol] 0.81 mg/dL Normal 0.55-1.02 [facility] Comment on above: Performed By: #### C MP, NGA, CRP, LIPA #### [facility] [address] [address] [address] Angela Aguero EGFR-AF AZERBAIJANI >60 Normal >=60 [facility] Comment on above: Performed By: #### C MP, NGA, CRP, LIPA #### [facility] [address] [address] [address] Angela Aguero EGFR-NON AF AZERBAIJANI >60 Normal >=60 [facility] Comment on above: Performed By: #### C MP, NGA, CRP, LIPA #### [facility] [address] [address] [address] Angela Aguero Globulin (S) [Mass/Vol] 3.7 g/dL Normal [facility] Comment on above: Performed By: #### C MP, NGA, CRP, LIPA #### [facility] [address] [address] [address] Angela Aguero Glucose [Mass/Vol] 190 mg/dL Critically high 74-106 [facility] Comment on above: Performed By: #### C MP, NGA, CRP, LIPA #### [facility] [address] [address] [address] Angela Aguero Potassium [Moles/Vol] 4.0 mmol/L Normal 3.5-5.1 [facility] Comment on above: Performed By: #### C MP, GNA, CRP, LIPA #### [facility] [address] [address] [address] Angela Aguero Protein [Mass/Vol] 7.4 g/dL Normal 6.4-8.2 [facility] Comment on above: Performed By: #### C MP, NGA, CRP, LIPA #### [facility] [address] [place] [address] Dr. Angela Aguero Sodium [Moles/Vol] 137 mmol/L Normal 136-145 [facility] Comment on above: Performed By: #### C MP, NGA, CRP, LIPA #### [facility] [address] [place] [address] Dr. Angela Aguero Urea nitrogen [Mass/Vol] 5.0 mg/dL Critically low 7.0-18.0 [facility] Comment on above: Performed By: #### C MP, NGA, CRP, LIPA #### [facility] [address] [place] [address] Dr. Angela Aguero Urea nitrogen/Creatinine [Mass ratio] 6.2 mg/mg Normal [facility] Comment on above: Performed By: #### C MP, NGA, CRP, LIPA #### [facility] [address] [place] [address] Dr. Angela Aguero SED RATE WESTERGRENon 2021 SED RATE 10 mm/hr Normal <=20 [facility] Comment on above: Performed By: #### L NGA SMITH, CMP #### [facility] [address] [place] [address] Dr. Angela Aguero URINE MICROSCOPIC ONLYon BACTERIA TRACE Abnormal NONE SEEN [facility] Comment on above: Performed By: #### L NGA SMITH, CMP #### [facility] [address] [place] [address] Dr. Angela Aguero Bacteria identified Cx Nom (U) NOT INDICATED Normal [facility] Comment on above: Performed By: #### L NGA SMITH, CMP #### [facility] [address] [place] [address] Dr. Angela Aguero CAST SEEN Abnormal NONE SEEN [facility] Comment on above: Performed By: #### L LUIS NGA, CMP #### [facility] [address] [place] [address] Dr. Angela Aguero Crystals LM Nom (Urine sed) NONE SEEN Normal NONE SEEN [facility] Comment on above: Performed By: #### L NGA SMITH, CMP #### [facility] [address] [place] [address] Dr. Angela Aguero Epithelial cells LM Ql (Urine sed) RARE Normal NONE SEEN /RARE [facility] Comment on above: Performed By: #### L IPA NGA, CMP #### [facility] [address] [place] [address] Dr. Angela Aguero FINE GRANULAR CAST RARE Normal [facility] Comment on above: Performed By: #### L IPA, NGA, CMP #### [facility] [address] [address] [address] Angela Aguero HYALINE CAST RARE Normal [facility] Comment on above: Performed By: #### L IPA, NGA, CMP #### [facility] [address] [address] [address] Angela Aguero MUCOUS TRACE Abnormal NONE SEEN [facility] Comment on above: Performed By: #### L IPA, NGA, CMP #### [facility] [address] [address] [address] Angela Aguero RBC NONE SEEN Abnormal 0-2 [facility] Comment on above: Performed By: #### L IPA NGA, CMP #### [facility] [address] [place] [address] Dr. Angela Aguero WBC NONE SEEN Normal NONE SEEN [facility] Comment on above: Performed By: #### L IPA NGA, CMP #### [facility] [address] [place] [address] Dr. Angela Aguero AMYLASEon 11-18-2021 Amylase [Catalytic activity/Vol] 20 U/L Critically low 25-115 [facility] Comment on above: Performed By: #### L IPA NGA, CMP #### [facility] [address] [place] [address] Dr. Angela Aguero BILIRUBIN CONJUGATED (DIRECT )on 11-18-2021 BILI, CONJUGATED 0.4 mg/dL Critically high 0.0-0.2 [facility] Comment on above: Performed By: #### L IPA NGA, CMP #### [facility] [address] [address] [address] Angela Aguero CBC AUTO DIFFon 11-18-2021 BASO # 0.1 103/ul Normal 0.0-0.1 [facility] Comment on above: Performed By: #### L IPA NGA, CMP #### [facility] [address] [address] [address] Angela Aguero Basophils/100 WBC (Bld) 2.4 % Critically high 0.2-2.0 [facility] Comment on above: Performed By: #### L NGA SMITH, CMP #### [facility] [address] [place] [address] Dr. Angela Aguero EO # 0.0 103/ul Normal 0.0-0.7 [facility] Comment on above: Performed By: #### L NGA SMITH, CMP #### [facility] [address] [place] [address] Dr. Angela Aguero Eosinophils/100 WBC (Bld) 0.2 % Critically low 0.9-7.0 [facility] Comment on above: Performed By: #### L NGA SMITH CMP #### [facility] [address] [place] [address] Dr. Angela Aguero Erythrocyte distribution width (RBC) [Ratio] 12.8 % Normal 11.0-15.0 [facility] Comment on above: Performed By: #### L NGA SMITH CMP #### [facility] [address] [place] [address] Dr. Angela Aguero Hematocrit (Bld) [Volume fraction] 47.4 % Normal 36.0-48.0 [facility] Comment on above: Performed By: #### L NGA SMITH CMP #### [facility] [address] [place] [address] Dr. Angela Aguero Hemoglobin (Bld) [Mass/Vol] 16.6 g/dL Critically high 12.0-16.0 [facility] Comment on above: Performed By: #### L NGA SMITH, CMP #### [facility] [address] [place] [address] Dr. Angela Aguero IG # 0.02 10e3/ul Normal 0.00-0.03 [facility] Comment on above: Performed By: #### L NGA SMITH, CMP #### [facility] [address] [place] [address] Dr. Angela Aguero IG % 0.4 % Normal 0.0-0.5 [facility] Comment on above: Performed By: #### L NGA SMITH, CMP #### [facility] [address] [address] [address] Angela Aguero LYMPH # 0.9 103/ul Critically low 1.2-3.8 [facility] Comment on above: Performed By: #### L NGA SMITH, CMP #### [facility] [address] [address] [address] Angela Aguero Lymphocytes/100 WBC (Bld) 17.2 % Critically low 20.5-60.0 [facility] Comment on above: Performed By: #### L NGA SMITH, CMP #### [facility] [address] [address] [address] Angela Aguero MANUAL DIFF REQ NO Normal [facility] Comment on above: Performed By: #### L NGA SMITH, CMP #### [facility] [address] [place] [address] Dr. Angela Aguero MCH (RBC) [Entitic mass] 32.4 pg Normal 26.7-34.0 [facility] Comment on above: Performed By: #### L NGA SMITH, CMP #### [facility] [address] [place] [address] Dr. Angela Aguero MCHC (RBC) [Mass/Vol] 35.0 g/dL Normal 29.9-35.2 [facility] Comment on above: Performed By: #### L NGA SMITH, CMP #### [facility] [address] [place] [address] Dr. Angela Aguero MCV (RBC) [Entitic vol] 92.4 fL Normal 81.0-99.0 [facility] Comment on above: Performed By: #### L NGA SMITH, CMP #### [facility] [address] [place] [address] Dr. Angela Aguero MONO # 0.6 103/ul Normal 0.3-0.8 [facility] Comment on above: Performed By: #### L NGA SMITH, CMP #### [facility] [address] [place] [address] Dr. Angela Aguero Monocytes/100 WBC (Bld) 10.7 % Normal 1.7-12.0 [facility] Comment on above: Performed By: #### L NGA SMITH, CMP #### [facility] [address] [place] [address] Dr. Angela Aguero NEUT # 3.7 103/ul Normal 1.4-6.5 [facility] Comment on above: Performed By: #### L NGA SMITH, CMP #### [facility] [address] [place] [address] Dr. Angela Aguero Neutrophils/100 WBC (Bld) 69.1 % Normal 43.0-75.0 [facility] Comment on above: Performed By: #### L NGA SMITH, CMP #### [facility] [address] [place] [address] Dr. Angela Aguero Platelet mean volume (Bld) [Entitic vol] 10.1 fL Normal 9.5-13.5 [facility] Comment on above: Performed By: #### L NGA SMITH, CMP #### [facility] [address] [place] [address] Dr. Angela Aguero PLT 279 103/ul Normal 150-450 [facility] Comment on above: Performed By: #### L NGA SMITH, CMP #### [facility] [address] [place] [address] Dr. Angela Aguero RBC 5.13 106/ul Normal 4.20-5.40 [facility] Comment on above: Performed By: #### L NGA SMITH, CMP #### [facility] [address] [place] [address] Dr. Angela Aguero WBC 5.4 103/ul Normal 4.0-11.0 [facility] Comment on above: Performed By: #### L NGA SMITH, CMP #### [facility] [address] [place] [address] Dr. Angela Aguero Covid-19 PCR ([facility])on 11-07 SARS-CoV-2 (COVID-19) RNA GOPAL+probe Ql (Unsp spec) Not detected Normal NOT DETECTED [facility] Comment on above: Result Comment: When [...] for this test is supported by the [place] of [employer]'s declaration that [...] By: #### L NGA SMITH, CMP #### [facility] [address] [place] [address] Dr. Angela Aguero LIPASEon 11-18-2021 Lipase [Catalytic activity/Vol] 25.0 U/L Critically low 73.0-393.0 [facility] Comment on above: Performed By: #### L NGA SMITH, CMP #### [facility] [address] [place] [address] Dr. Angela Aguero PROF 14(COMP METB)on 022 Albumin [Mass/Vol] 4.4 g/dL Normal 3.4-5.0 [facility] Comment on above: Performed By: #### L NGA SMITH, CMP #### [facility] [address] [place] [address] Dr. Angela Aguero Albumin/Globulin [Mass ratio] 1.1 {ratio} Normal [facility] Comment on above: Performed By: #### L NGA SMITH, CMP #### [facility] [address] [place] [address] Dr. Angela Aguero ALP [Catalytic activity/Vol] 83 U/L Normal 46-116 [facility] Comment on above: Performed By: #### L NGA SMITH, CMP #### [facility] [address] [place] [address] Dr. Angela Aguero ALT [Catalytic activity/Vol] 95 U/L Critically high 14-59 [facility] Comment on above: Performed By: #### L NGA SMITH, CMP #### [facility] [address] [place] [address] Dr. Angela Aguero Anion gap [Moles/Vol] 20.2 mmol/L Normal Th [facility] Comment on above: Performed By: #### L NGA SMITH, CMP #### [facility] [address] [place] [address] Dr. Angela Aguero AST [Catalytic activity/Vol] 84 U/L Critically high 15-37 [facility] Comment on above: Performed By: #### L NGA SMITH, CMP #### [facility] [address] [place] [address] Dr. Angela Aguero Bilirubin [Mass/Vol] 1.1 mg/dL Critically high 0.2-1.0 [facility] Comment on above: Performed By: #### L NGA SMITH, CMP #### [facility] [address] [place] [address] Dr. Angela Aguero Calcium [Mass/Vol] 8.9 mg/dL Normal 8.5-10.1 [facility] Comment on above: Performed By: #### L NGA SMITH, CMP #### [facility] [address] [place] [address] Dr. Angela Aguero Chloride [Moles/Vol] 99 mmol/L Normal 98-107 [facility] Comment on above: Performed By: #### L NGA SMITH, CMP #### [facility] [address] [place] [address] Dr. Angela Aguero CO2 [Moles/Vol] 23.3 mmol/L Normal 21.0-32.0 [facility] Comment on above: Performed By: #### L NGA SMITH, CMP #### [facility] [address] [place] [address] Dr. Angela Aguero Creatinine [Mass/Vol] 0.97 mg/dL Normal 0.55-1.02 [facility] Comment on above: Performed By: #### L NGA SMITH, CMP #### [facility] [address] [address] [address] Angela Aguero EGFR-AF AZERBAIJANI >60 Normal >=60 [facility] Comment on above: Performed By: #### L NGA SMITH, CMP #### [facility] [address] [address] [address] Angela Aguero EGFR-NON AF AZERBAIJANI >60 Normal >=60 [facility] Comment on above: Performed By: #### L NGA SMITH, CMP #### [facility] [address] [address] [address] Angela Aguero Globulin (S) [Mass/Vol] 3.9 g/dL Normal [facility] Comment on above: Performed By: #### L NGA SMITH, CMP #### [facility] [address] [address] [address] Angela Aguero Glucose [Mass/Vol] 170 mg/dL Critically high 74-106 [facility] Comment on above: Performed By: #### L NGA SMITH, CMP #### [facility] [address] [place] [address] Dr. Angela Aguero Potassium [Moles/Vol] 3.5 mmol/L Normal 3.5-5.1 [facility] Comment on above: Performed By: #### L NGA SMITH, CMP #### [facility] [address] [place] [address] Dr. Angela Aguero Protein [Mass/Vol] 8.3 g/dL Critically high 6.4-8.2 [facility] Comment on above: Performed By: #### L NGA SMITH, CMP #### [facility] [address] [place] [address] Dr. Angela Aguero Sodium [Moles/Vol] 139 mmol/L Normal 136-145 [facility] Comment on above: Performed By: #### L NGA SMITH, CMP #### [facility] [address] [place] [address] Dr. Angela Aguero Urea nitrogen [Mass/Vol] 4.0 mg/dL Critically low 7.0-18.0 [facility] Comment on above: Performed By: #### L NGA SMITH, CMP #### [facility] [address] [address] [address] Angela Aguero Urea nitrogen/Creatinine [Mass ratio] 4.1 mg/mg Normal [facility] Comment on above: Performed By: #### L NGA SMITH, CMP #### [facility] [address] [address] [address] ABD/PELV W CONon [...] steatosis. 3. Small hiatal hernia. Normal [facility] ER URINE PROFILEon 2 Bilirubin Ql (U) Negative Normal NEGATIVE [facility] Comment on above: Performed By: #### L NGA SMITH, CMP #### [facility] [address] [address] [address] Angela Aguero Clarity (U) CLEAR Normal CLEAR [facility] Comment on above: Performed By: #### L NGA SMITH, CMP #### [facility] [address] [address] [address] Angela Aguero Color (U) LT. YELLOW Normal YELLOW [facility] Comment on above: Performed By: #### L IPA NGA, CMP #### [facility] [address] [address] [address] Angela CARRASCO A micrscopic examina tion will be performed if indicated. Normal [facility] Comment on above: Performed By: #### L IPA, NGA, CMP #### [facility] [address] [address] [address] Angela Aguero Glucose Ql (U) Negative Normal NEGATIVE [facility] Comment on above: Performed By: #### L IPA, NGA, CMP #### [facility] [address] [address] [address] Angela Aguero Hemoglobin Ql (U) Negative Normal NEGATIVE [facility] Comment on above: Performed By: #### L IPA NGA, CMP #### [facility] [facility] [address] [place] [address] Dr. Angela Aguero Ketones Ql (U) Negative Normal NEGATIVE [facility] Comment on above: Performed By: #### L IPA NGA, CMP #### [facility] [address] [place] [address] Dr. Angela Aguero LEUKOCYTES Negative Normal NEGATIVE [facility] Comment on above: Performed By: #### L IPA NGA, CMP #### [facility] [address] [place] [address] Dr. Angela Aguero Nitrite Ql (U) Negative Normal NEGATIVE [facility] Comment on above: Performed By: #### L IPA NGA, CMP #### [facility] [address] [address] [address] Angela Aguero pH (U) 6.0 [pH] Normal 5-9 [facility] Comment on above: Performed By: #### L IPA NGA, CMP #### [facility] [address] [place] [address] Dr. Angela Aguero SPEC GRAVITY <=1.005 Abnormal 1.005-<=1. 025 [facility] Comment on above: Performed By: #### L IPA NGA, CMP #### [facility] [address] [address] [address] Angela Aguero UA PROTEIN Negative Normal NEGATIVE/ TRACE [facility] Comment on above: Performed By: #### L NGA SMITH, CMP #### [facility] [address] [place] [address] Dr. Angela Aguero UR MICRO IND NOT INDICATED Normal [facility] Comment on above: Performed By: #### L NGA SMITH, CMP #### [facility] [address] [place] [address] Dr. Angela Aguero Urobilinogen Qn (U) 0.2 {Concetta'U}/dL Normal 0.2 - 1. 0 [facility] Comment on above: Performed By: #### L NGA SMITH, CMP #### [facility] [address] [place] [address] Dr. Angela Aguero LACTATE/LACTIC ACIDon 2021 Lactate [Moles/Vol] 1.1 mmol/L Normal 0.4-1.9 [facility] Comment on above: Performed By: #### L NGA SMITH, CMP #### [facility] [address] [place] [address] Dr. Angela Aguero CBC AUTO DIFFon 11-10-2021 BASO # 0.1 103/ul Normal 0.0-0.1 [facility] Comment on above: Performed By: #### L NGA SMITH, CMP #### [facility] [address] [place] [address] Dr. Angela Aguero Basophils/100 WBC (Bld) 1.7 % Normal 0.2-2.0 [facility] Comment on above: Performed By: #### L NGA SMITH, CMP #### [facility] [address] [place] [address] Dr. Angela Aguero EO # 0.1 103/ul Normal 0.0-0.7 [facility] Comment on above: Performed By: #### L LUIS NGA, CMP #### [facility] [address] [place] [address] Dr. Angela Aguero Eosinophils/100 WBC (Bld) 1.0 % Normal 0.9-7.0 [facility] Comment on above: Performed By: #### L NGA SMITH, CMP #### [facility] [address] [place] [address] Dr. Angela Aguero Erythrocyte distribution width (RBC) [Ratio] 13.1 % Normal 11.0-15.0 [facility] Comment on above: Performed By: #### L NGA SMITH, CMP #### [facility] [address] [place] [address] Dr. Angela Aguero Hematocrit (Bld) [Volume fraction] 46.8 % Normal 36.0-48.0 [facility] Comment on above: Performed By: #### L NGA SMITH, CMP #### [facility] [address] [place] [address] Dr. Angela Aguero Hemoglobin (Bld) [Mass/Vol] 16.3 g/dL Critically high 12.0-16.0 [facility] Comment on above: Performed By: #### L NGA SMITH, CMP #### [facility] [address] [place] [address] Dr. Angela Aguero IG # 0.02 10e3/ul Normal 0.00-0.03 [facility] Comment on above: Performed By: #### L NGA SMITH, CMP #### [facility] [address] [place] [address] Dr. Angela Aguero IG % 0.3 % Normal 0.0-0.5 [facility] Comment on above: Performed By: #### L NGA SMITH, CMP #### [facility] [address] [place] [address] Dr. Angela Aguero LYMPH # 1.3 103/ul Normal 1.2-3.8 [facility] Comment on above: Performed By: #### L NGA SMITH, CMP #### [facility] [address] [place] [address] Dr. Angela Aguero Lymphocytes/100 WBC (Bld) 20.9 % Normal 20.5-60.0 [facility] Comment on above: Performed By: #### L NGA SMITH, CMP #### [facility] [address] [place] [address] Dr. Angela Aguero MANUAL DIFF REQ NO Normal [facility] Comment on above: Performed By: #### L NGA SMITH, CMP #### [facility] [address] [place] [address] Dr. Angela Aguero MCH (RBC) [Entitic mass] 32.2 pg Normal 26.7-34.0 [facility] Comment on above: Performed By: #### L NGA SMITH, CMP #### [facility] [address] [place] [address] Dr. Angela Aguero MCHC (RBC) [Mass/Vol] 34.8 g/dL Normal 29.9-35.2 [facility] Comment on above: Performed By: #### L NGA SMITH, CMP #### [facility] [address] [place] [address] Dr. Angela Aguero MCV (RBC) [Entitic vol] 92.5 fL Normal 81.0-99.0 [facility] Comment on above: Performed By: #### L NGA SMITH, CMP #### [facility] [address] [place] [address] Dr. Angela Aguero MONO # 0.6 103/ul Normal 0.3-0.8 [facility] Comment on above: Performed By: #### L NGA SMITH, CMP #### [facility] [address] [place] [address] Dr. Angela Aguero Monocytes/100 WBC (Bld) 10.7 % Normal 1.7-12.0 [facility] Comment on above: Performed By: #### L NGA SMITH, CMP #### [facility] [address] [place] [address] Dr. Angela Aguero NEUT # 3.9 103/ul Normal 1.4-6.5 [facility] Comment on above: Performed By: #### L NGA SMITH, CMP #### [facility] [address] [place] [address] Dr. Angela Aguero Neutrophils/100 WBC (Bld) 65.4 % Normal 43.0-75.0 [facility] Comment on above: Performed By: #### L NGA SMITH, CMP #### [facility] [address] [address] [address] Angela Aguero Platelet mean volume (Bld) [Entitic vol] 9.6 fL Normal 9.5-13.5 [facility] Comment on above: Performed By: #### L NGA SMITH, CMP #### [facility] [address] [address] [address] Angela Aguero PLT 224 103/ul Normal 150-450 [facility] Comment on above: Performed By: #### L NGA SMITH, CMP #### [facility] [address] [address] [address] Angela Aguero RBC 5.06 106/ul Normal 4.20-5.40 [facility] Comment on above: Performed By: #### L NGA SMITH, CMP #### [facility] [address] [place] [address] Dr. Angela Aguero WBC 6.0 103/ul Normal 4.0-11.0 [facility] Comment on above: Performed By: #### L NGA SMITH, CMP #### [facility] [address] [place] [address] Dr. Angela Aguero LACTATE/LACTIC ACIDon 2021 Lactate [Moles/Vol] 3.7 mmol/L Critically high 0.4-1.9 [facility] Comment on above: Performed By: #### L NGA SMITH, CMP #### [facility] [address] [place] [address] Dr. Angela Aguero LIPASEon 11-10-2021 Lipase [Catalytic activity/Vol] 33.0 U/L Critically low 73.0-393.0 [facility] Comment on above: Performed By: #### L NGA SMITH, CMP #### [facility] [address] [place] [address] Dr. Angela Aguero PREG HCG QUALon 11-10-2021 , QUAL Negative Normal NEGATIVE [facility] Comment on above: Performed By: #### P REG #### [facility] [address] [place] [address] Dr. Angela Aguero PROF 14(COMP METB)on 022 Albumin [Mass/Vol] 4.5 g/dL Normal 3.4-5.0 [facility] Comment on above: Performed By: #### L NGA SMITH, CMP #### [facility] [address] [address] [address] Angela Aguero Albumin/Globulin [Mass ratio] 1.1 {ratio} Normal [facility] Comment on above: Performed By: #### L NGA SMITH, CMP #### [facility] [address] [address] [address] Angela Aguero ALP [Catalytic activity/Vol] 112 U/L Normal 46-116 [facility] Comment on above: Performed By: #### L NGA SMITH, CMP #### [facility] [address] [address] [address] Angela Aguero ALT [Catalytic activity/Vol] 154 U/L Critically high 14-59 [facility] Comment on above: Performed By: #### L NGA SMITH, CMP #### [facility] [address] [address] [address] Angela Aguero Anion gap [Moles/Vol] 17.8 mmol/L Normal [facility] Comment on above: Performed By: #### L NGA SMITH, CMP #### [facility] [address] [place] [address] Dr. Angela Aguero AST [Catalytic activity/Vol] 112 U/L Critically high 15-37 [facility] Comment on above: Performed By: #### L NGA SMITH, CMP #### [facility] [address] [address] [address] Angela Aguero Bilirubin [Mass/Vol] 0.7 mg/dL Normal 0.2-1.0 [facility] Comment on above: Performed By: #### L NGA SMITH, CMP #### [facility] [address] [address] [address] Angela Aguero Calcium [Mass/Vol] 9.7 mg/dL Normal 8.5-10.1 [facility] Comment on above: Performed By: #### L NGA SMITH, CMP #### [facility] [address] [address] [address] Angela Aguero Chloride [Moles/Vol] 102 mmol/L Normal 98-107 [facility] Comment on above: Performed By: #### L NGA SMITH, CMP #### [facility] [address] [address] [address] Angela Aguero CO2 [Moles/Vol] 26.6 mmol/L Normal 21.0-32.0 [facility] Comment on above: Performed By: #### L NGA SMITH, CMP #### [facility] [address] [address] [address] Angela Aguero Creatinine [Mass/Vol] 1.00 mg/dL Normal 0.55-1.02 [facility] Comment on above: Performed By: #### L NGA SMITH, CMP #### [facility] [address] [place] [address] Dr. Angela Aguero EGFR-AF AZERBAIJANI >60 Normal >=60 [facility] Comment on above: Performed By: #### L NGA SMITH, CMP #### [facility] [address] [place] [address] Dr. Angela Aguero EGFR-NON AF AZERBAIJANI >60 Normal >=60 [facility] Comment on above: Performed By: #### L NGA SMITH, CMP #### [facility] [address] [place] [address] Dr. Angela Aguero Globulin (S) [Mass/Vol] 4.1 g/dL Normal [facility] Comment on above: Performed By: #### L NGA SMITH, CMP #### [facility] [address] [place] [address] Dr. Angela Aguero Glucose [Mass/Vol] 170 mg/dL Critically high 74-106 [facility] Comment on above: Performed By: #### L NGA SMITH, CMP #### [facility] [address] [place] [address] Dr. Angela Aguero Potassium [Moles/Vol] 3.4 mmol/L Critically low 3.5-5.1 [facility] Comment on above: Performed By: #### L NGA SMITH, CMP #### [facility] [address] [place] [address] Dr. Angela Aguero Protein [Mass/Vol] 8.6 g/dL Critically high 6.4-8.2 [facility] Comment on above: Performed By: #### L NGA SMITH, CMP #### [facility] [address] [place] [address] Dr. Angela Aguero Sodium [Moles/Vol] 143 mmol/L Normal 136-145 [facility] Comment on above: Performed By: #### L NGA SMITH, CMP #### [facility] [address] [place] [address] Dr. Angela Aguero Urea nitrogen [Mass/Vol] 4.0 mg/dL Critically low 7.0-18.0 [facility] Comment on above: Performed By: #### L NGA SMITH, CMP #### [facility] [address] [place] [address] Dr. Angela Aguero Urea nitrogen/Creatinine [Mass ratio] 4.0 mg/mg Normal [facility] Comment on above: Performed By: #### L NGA SMITH, CMP #### [facility] [address] [place] [address] Dr. Angela Aguero PROTIMEon 11-10-2021 INR Coag (PPP) [Relative time] 1.13 {INR} Normal [facility] Comment on above: Performed By: #### L NGA SMITH, CMP #### [facility] [address] [place] [address] Dr. Angela Aguero INR GUIDELINES SEE BELOW Normal [facility] Comment on above: Result Comment: VARSHA RED INR: 2.0 - 3.0 CONDITIONS NOT LISTED BELOW 2.5 - 3.5 FOR PROSTHETIC HEART VALVE REPLACEMENT 2.5 - 3.5 RECURRENT THROMBOSIS Performed By: #### L NGA SMITH, CMP #### [facility] [address] [place] [address] Dr. Angela Aguero PT Coag (PPP) [Time] 12.1 s Critically high 9.0-11.6 [facility] Comment on above: Performed By: #### L NGA SMITH, CMP #### [facility] [address] [place], [place] [address] Dr. Angela Aguero PTTon 11-10-2021 aPTT Coag (Bld) [Time] 30.2 s Normal 22.3-36.2 [facility] Comment on above: Performed By: #### L NGA SMITH, CMP #### [facility] [address] [place], [place] [address] Dr. Angela Aguero Automated epithelial cells c ount in urine sediment (number/area)Ordered By: Hal Orozco on 11-06-2021 Epithelial cells Auto (Urine sed) [#/Area] 10-19 [HPF] 0-2 [facility] Automated erythrocytes count in urine sediment (number/area)Ordered By: Hal Orozco on 11-06-2021 RBC Auto (Urine sed) [#/Area] 0-1 [HPF] 0-4 [facility] Automated leukocytes count i n urine sediment (number/area)Ordered By: Hal Orozco on 11-06-2021 WBC Auto (Urine sed) [#/Area] 1-2 [HPF] 0-4 [facility] Basophils Auto (Bld) [#/Vol] Ordered By: Hal Orozco on 11-06-2021 Basophils (Bld) [#/Vol] 0.0 10*3/uL 0.0-0.2 [facility] Basophils/100 WBC Auto (Bld) Ordered By: Hal Orozco on 11-06-2021 Basophils/100 WBC (Bld) 0.3 % . [facility] Bilirubin Auto test strip Ql (U)Ordered By: Hal Orozco on 11-06-2021 Bilirubin Ql (U) 1+ Negative [facility] Blood hemoglobin measurement (mass/volume)Ordered By: Hal Orozco on 11-06-2021 Hemoglobin (Bld) [Mass/Vol] 15.7 g/dL 11.8-15.4 [facility] Blood leukocytes automated c ount (number/volume)Ordered By: Hal Orozco on 11-06-2021 WBC (Bld) [#/Vol] 9.8 10*3/uL 4.5-11.0 [facility] Body fluid albumin measureme nt (mass/volume)Ordered By: Hal Orozco on 11-06-2021 Albumin (Body fld) [Mass/Vol] 4.7 g/dL 3.2-5.5 [facility] Creatinine and Glomerular fi ltration rate.predicted panel (S/P/Bld)Ordered By: Hal Orozco on 11-06-2021 Creatinine [Mass/Vol] 0.99 mg/dL 0.44-1.03 [facility] Direct bilirubin measurement Ordered By: Hal Orozco on 11-06-2021 Bilirubin.direct [Mass/Vol] 0.3 mg/dL 0.0-0.4 [facility] Eosinophils Auto (Bld) [#/Vo l]Ordered By: Hal Orozco on 11-06-2021 Eosinophils (Bld) [#/Vol] 0.0 10*3/uL 0.0-0.45 [facility] Eosinophils/100 WBC Auto (Bl d)Ordered By: Hal Orozco on 11-06-2021 Eosinophils/100 WBC (Bld) 0.0 % . [facility] Erythrocyte distribution wid th Auto (RBC) [Ratio]Ordered By: Hal Orozco on 11-06-2021 Erythrocyte distribution width (RBC) [Ratio] 14.3 % 11.9-15.3 [facility] Estimated glomerular filtrat ion rate (GFR) non- AmericanOrdered By: Hal Orozco on 11-06-2021 GFR/1.73 sq M.predicted among non-blacks MDRD (S/P/Bld) [Vol rate/Area] > 60 mL/Min [facility] Globulin Calc (S) [Mass/Vol] Ordered By: Hal Orozco on 11-06-2021 Globulin (S) [Mass/Vol] 3.4 g/dL [facility] HCG ( test) IA.rapi d Ql (U)Ordered By: Hal Orozco on 11-06-2021 HCG ( test) Ql (U) Negative [facility] Hematocrit Auto (Bld) [Volum e fraction]Ordered By: Hal Orozco on 11-06-2021 Hematocrit (Bld) [Volume fraction] 45.7 % 34.0-46.4 [facility] Ketones Auto test strip (U) [Mass/Vol]Ordered By: Hal Orozco on 11-06-2021 Ketones (U) [Mass/Vol] 1+ Negative Fi [facility] - Chemistry and C hemistry - challengeOrdered By: Hal Orozco on 11-06-2021 Lipase [Catalytic activity/Vol] 18.0 U/L 22-51 [facility] - Hematology and Cell countsOrdered By: Hal Orozco on 11-06-2021 Nucleated RBC/100 WBC (Bld) [Ratio] 0.1 % 0-0.5 [facility] Lymphocytes Auto (Bld) [#/Vo l]Ordered By: Hal Orozco on 11-06-2021 Lymphocytes (Bld) [#/Vol] 0.4 10*3/uL 1.00-4.8 [facility] Lymphocytes/100 WBC Auto (Bl d)Ordered By: Hal Orozco on 11-06-2021 Lymphocytes/100 WBC (Bld) 3.8 % . [facility] MCH Auto (RBC) [Entitic mass ]Ordered By: Hal Orozco on 11-06-2021 MCH (RBC) [Entitic mass] 32.4 pg 24.7-34.3 [facility] MCHC Auto (RBC) [Mass/Vol]Or dered By: Hal Orozco on 11-06-2021 MCHC (RBC) [Mass/Vol] 34.4 g/dL 32.0-35.0 [facility] MCV Auto (RBC) [Entitic vol] Ordered By: Hal Orozco on 11-06-2021 MCV (RBC) [Entitic vol] 94.2 fL 80-100 [facility] Monocytes Auto (Bld) [#/Vol] Ordered By: Hal Orozco on 11-06-2021 Monocytes (Bld) [#/Vol] 0.3 10*3/uL 0.0-0.8 [facility] Monocytes/100 WBC Auto (Bld) Ordered By: Hal Orozco on 11-06-2021 Monocytes/100 WBC (Bld) 2.9 % . [facility] Mucus LM Ql (Urine sed)Order ed By: Hal Orozco on 11-06-2021 Mucus Ql (Urine sed) 2+ [LPF] [facility] Neutrophils Auto (Bld) [#/Vo l]Ordered By: Hal Orozco on 11-06-2021 Neutrophils (Bld) [#/Vol] 9.1 10*3/uL 1.8-7.7 [facility] Neutrophils/100 WBC Auto (Bl d)Ordered By: Hal Orozco on 11-06-2021 Neutrophils/100 WBC (Bld) 93.0 % . [facility] No Panel InformationOrdered By: Hal Orozco on 11-06-2021 Estimated GFR () > 60 mL/Min [facility] Comment on above: GFR estimated refere nce range: According to KDOQI guidelines, <60 ml/min/1.73m2 is sufficient to diagnose a patient with chronic kidney disease. Pharmacy Creatinine Clearance (Chem 72.84 [facility] Platelet mean volume Auto (B ld) [Entitic vol]Ordered By: Hal Orozco on 11-06-2021 Platelet mean volume (Bld) [Entitic vol] 7.5 fL 6.3-10.7 [facility] Platelets Auto (Bld) [#/Vol] Ordered By: Hal Orozco on 11-06-2021 Platelets (Bld) [#/Vol] 270 10*3/uL 150-450 [facility] Protein Auto test strip (U) [Mass/Vol]Ordered By: Hal Orozco on 11-06-2021 Protein (U) [Mass/Vol] 30 mg/dL Negative [facility] Protein [Mass/volume] in Ser um or PlasmaOrdered By: Hal Orozco on 11-06-2021 Protein [Mass/Vol] 8.1 g/dL 6.1-7.9 [facility] RBC Auto (Bld) [#/Vol]Ordere d By: Hal Orozco on 11-06-2021 RBC (Bld) [#/Vol] 4.85 10*6/uL 3.60-5.00 [facility] Serum or plasma alanine montes otransferase measurement without P-5'-P (enzymatic activiOrdered By: Hal Orozco on 11-06-2021 ALT No additional P-5'-P [Catalytic activity/Vol] 64 U/L 10-60 [facility] Serum or plasma albumin/glob ulin mass ratioOrdered By: Hal Orozco on 11-06-2021 Albumin/Globulin [Mass ratio] 1.4 {ratio} [facility] Serum or plasma alkaline florencio sphatase measurement (enzymatic activity/volume)Ordered By: Hal Orozco on 11-06-2021 ALP [Catalytic activity/Vol] 75 U/L 32-92 [facility] Serum or plasma aspartate am inotransferase measurement (enzymatic activity/volume)Ordered By: Hal Orozco on 11-06-2021 AST [Catalytic activity/Vol] 101 U/L 10-42 [facility] Serum or plasma calcium archie urement (mass/volume)Ordered By: Hal Orozco on 11-06-2021 Calcium [Mass/Vol] 9.3 mg/dL 8.2-10.2 [facility] Serum or plasma chloride luz surement (moles/volume)Ordered By: Hal Orozco on 11-06-2021 Chloride [Moles/Vol] 101 mmol/L 95-114 [facility] Serum or plasma glucose archie urement (mass/volume)Ordered By: Hal Orozco on 11-06-2021 Glucose [Mass/Vol] 205 mg/dL 70-100 [facility] Comment on above: ADA recommended refe rence [...] on 11-06-2021 Bilirubin.indirect [Mass/Vol] 1.0 mg/dL [facility] Serum or plasma potassium me asurement (moles/volume)Ordered By: Hal Orozco on 11-06-2021 Potassium [Moles/Vol] 3.8 mmol/L 3.5-5.1 [facility] Serum or plasma sodium measu rement (moles/volume)Ordered By: Hal Orozco on 11-06-2021 Sodium [Moles/Vol] 142 mmol/L 136-146 [facility] Serum or plasma total biliru bin measurement (mass/volume)Ordered By: Hal Orozco on 11-06-2021 Bilirubin [Mass/Vol] 1.3 mg/dL 0.3-1.2 [facility] Comment on above: Samples from patient s who have taken Naproxen have shown spurious elevation in Total Bilirubin levels. A metabolite of Naproxen, O-desmethylnaproxen, has been shown to interfere with the Renetta method for measuring Total Bilirubin. Serum or plasma total carbon dioxide measurement (moles/volume)Ordered By: Hal Orozco on 11-06-2021 CO2 [Moles/Vol] 21.6 mmol/L 22.0-30.0 [facility] Serum or plasma urea nitroge n measurement (mass/volume)Ordered By: Hal Orozco on 11-06-2021 Urea nitrogen [Mass/Vol] 4 mg/dL 9-23 [facility] Urine appearanceOrdered By: Hal Orozco on 11-06-2021 Appearance (U) Clear Clear [facility] Urine bacteria detection by automated methodOrdered By: Hal Orozco on 11-06-2021 Bacteria Auto Ql (U) 1+ None Seen [facility] Urine colorOrdered By: Jimbo Orozco on 11-06-2021 Color (U) Yellow Yellow [facility] Urine glucose measurement by automated test strip (mass/volume)Ordered By: Hal Orozco on 11-06-2021 Glucose Auto test strip (U) [Mass/Vol] Normal mg/dL Normal [facility] Urine hemoglobin detection b y automated test stripOrdered By: Hal Orozco on 11-06-2021 Hemoglobin Auto test strip Ql (U) Negative Negative [facility] Urine leukocyte esterase det ection by automated test stripOrdered By: Hal Orozco on 11-06-2021 Leukocyte esterase Auto test strip Ql (U) Negative Negative [facility] Urine nitrite detection by a utomated test stripOrdered By: Hal Orozco on 11-06-2021 Nitrite Auto test strip Ql (U) Negative Negative [facility] Urobilinogen Auto test strip (U) [Mass/Vol]Ordered By: Hal Orozco on 11-06-2021 Urobilinogen (U) [Mass/Vol] mg/dL Normal [facility] pH Auto test strip (U)Ordere d By: Hal Orozco on 11-06-2021 pH (U) 1.025 [pH] 1.001-1.03 0 [facility] pH (U) 6.5 [pH] 5.0-9.0 [facility] Vital Signs Date Time Vital Sign Value Performing Clinician Facility 01-22-2024 08:00-0400 Body temperature 98.1 [degF] CATIA Blanca Work Phone: [facility] 01-22-2024 08:00-0400 Diastolic blood pressure 78 mm[Hg] CATIA Blanca Work Phone: [facility] 01-22-2024 08:00-0400 Heart rate 116 /min CATIA Blanca Work Phone: [facility] 01-22-2024 08:00-0400 Respiratory rate 18 /min CATIA Blanca Work Phone: [facility] 01-22-2024 08:00-0400 SaO2% (BldA) [Mass fraction] 99 % CATIA Blanca Work Phone: [facility] 01-22-2024 08:00-0400 Systolic blood pressure 109 mm[Hg] CATIA Blanca Work Phone: [facility] 01-21-2024 10:58-0400 Body weight 62.09 kg CATIA Blanca Work Phone: [facility] 01-18-2024 15:54-0400 Body height 170.18 cm CATIA Blanca Work Phone: [facility] 01-15-2024 10:17-0400 Diastolic blood pressure 108 mm[Hg] CATIA Blanca Work Phone: [facility] 01-15-2024 10:17-0400 Heart rate 73 /min BEVERAGE MANAGERTodd Blanca Work Phone: [facility] 01-15-2024 10:17-0400 Respiratory rate 18 /min BEVERAGE MANAGERTodd Blanca Work Phone: [facility] 01-15-2024 10:17-0400 SaO2% (BldA) [Mass fraction] 95 % BEVERAGE MANAGERTodd Blanca Work Phone: [facility] 01-15-2024 10:17-0400 Systolic blood pressure 148 mm[Hg] CATIA Blanca Work Phone: [facility] 01-15-2024 08:59-0400 Body temperature 98.6 [degF] CATIA Blanca Work Phone: [facility] 06-14-2023 14:27-0500 Body height 167.64 cm CATIA Blanca Work Phone: [facility] 06-14-2023 14:27-0500 Body mass index (BMI) [Ratio] 22 kg/m2 BEVERAGE MANAGERTodd Blanca Work Phone: [facility] 06-14-2023 14:27-0500 Body weight 61.91 kg CATIA Blanca Work Phone: [facility] 06-14-2023 14:27-0500 Diastolic blood pressure 85 mm[Hg] CATIA Blanca Work Phone: [facility] 06-14-2023 14:27-0500 Heart rate 94 /min CATIA Blanca Work Phone: [facility] 06-14-2023 14:27-0500 Respiratory rate 18 /min CATIA Blanca Work Phone: [facility] 06-14-2023 14:27-0500 SaO2% (BldA) [Mass fraction] 100 % BEVERAGE MANAGERTodd Blanca Work Phone: [facility] 06-14-2023 14:27-0500 Systolic blood pressure 132 mm[Hg] BEVERAGE MANAGER Avery Blanca Work Phone: [facility] 03-27-2023 10:45-0500 Body height 167.64 cm Becky Scally Other [facility] 03-27-2023 10:45-0500 Body mass index (BMI) [Ratio] 21.93 kg/m2 Becky Scally Other [facility] Other 03-27-2023 10:45-0500 Body weight 61.64 kg Becky Scally Other [facility] 03-27-2023 10:45-0500 Diastolic blood pressure 80 mm[Hg] Becky Scally Other [facility] 03-27-2023 10:45-0500 Respiratory rate 16 /min Becky Scally Other [facility] Other 03-27-2023 10:45-0500 SaO2% (BldA) [Mass fraction] 100 % Becky Scally Other [facility] Other 03-27-2023 10:45-0500 Systolic blood pressure 125 mm[Hg] Becky Scally Other [facility] 02-01-2022 23:07-0400 Diastolic blood pressure 103 mm[Hg] Kaylinn Dokken [facility] 02-01-2022 23:07-0400 Heart rate 67 /min Kaylinn Dokken [facility] 02-01-2022 23:07-0400 Respiratory rate 15 /min Kaylinn Dokken [facility] 02-01-2022 23:07-0400 SaO2% (BldA) [Mass fraction] 97 % Zaireylinn Dokken [facility] 02-01-2022 23:07-0400 Systolic blood pressure 164 mm[Hg] Kaylinn Dokken [facility] 02-01-2022 21:27-0400 Body temperature 98.24 [degF] Zaireylinn Dokken [facility] 02-01-2022 21:27-0400 Diastolic blood pressure 120 mm[Hg] Zaireylinn Dokken [facility] 02-01-2022 21:27-0400 Heart rate 111 /min Zaireylinn Dokken [facility] 02-01-2022 21:27-0400 Respiratory rate 20 /min Zaireylinn Dokken [facility] 02-01-2022 21:27-0400 SaO2% (BldA) [Mass fraction] 98 % Charaninn Dokken [facility] 02-01-2022 21:27-0400 Systolic blood pressure 196 mm[Hg] Charaninn Dokken [facility] 12-28-2021 08:56-0400 Body height 167.64 cm Services [employer] Work Phone: [facility] 12-28-2021 08:56-0400 Body weight 71.66 kg Services [employer] Work Phone: [facility] 12-23-2021 09:40-0400 Diastolic blood pressure 87 mm[Hg] Services [employer] Work Phone: [facility] 12-23-2021 09:40-0400 Heart rate 88 /min Services [facility] [employer] Work Phone: [facility] 12-23-2021 09:40-0400 Respiratory rate 18 /min Services [facility] Work Phone: [facility] 12-23-2021 09:40-0400 SaO2% (BldA) [Mass fraction] 100 % Services [facility] Work Phone: [facility] 12-23-2021 09:40-0400 Systolic blood pressure 140 mm[Hg] Services [facility] Work Phone: [facility] 12-23-2021 07:44-0400 Body height 167.64 cm Services [facility] Work Phone: [facility] 12-23-2021 07:44-0400 Body weight 68.03 kg Services [facility] Work Phone: [facility] 11-06-2021 14:00-0400 Diastolic blood pressure 82 mm[Hg] Services [facility] Work Phone: [facility] 11-06-2021 14:00-0400 Heart rate 102 /min [facility] Work Phone: [facility] 11-06-2021 14:00-0400 Respiratory rate 20 /min [facility] Work Phone: [facility] 11-06-2021 14:00-0400 SaO2% (BldA) [Mass fraction] 97 % [facility] Work Phone: [facility] 11-06-2021 14:00-0400 Systolic blood pressure 123 mm[Hg] Services [facility] Work Phone: [facility] 11-06-2021 00:00-0400 Body height 167.64 cm Services [facility] Work Phone: [facility] 11-06-2021 00:00-0400 Body weight 70.3 kg [facility] Work Phone: [facility] 11-05-2021 23:51-0400 Body temperature 98 [degF] [facility] Work Phone: [facility] Encounters Encounter Date Encounter Type Care Provider Facility Start: 01-16-2024 Non-patient / Non-visit BEVERAGE MANAGER Reji jimenez Evangelist Work Phone: [facility] Work Phone: Start: 01-15-2024 End: 01-22-2024 Evaluation and management of inpatient BEVERAGE MANAGERTodd Baldwin Evangelist Work Phone: [facility] [place] [address] Work Phone: Start: 11-27-2023 End: 11-30-2023 Clinisync Result Encounter Shaikh Jonatan OROURKE Work Phone: [facility] Unsolicited Start: 11-27-2023 End: 11-30-2023 Clinisync Result Encounter Shaikh Jonatan OROURKE Work Phone: [facility] Unsolicited Start: 11-26-2023 End: 12-01-2023 Non-patient / Non-visit BEVERAGE MANAGERTodd Blanca Work Phone: [facility] Work Phone: Start: 11-22-2023 Non-patient / Non-visit BEVERAGE MANAGER Reji jimenez Evangelist Work Phone: [facility] Work Phone: Start: 11-22-2023 ambulatory Avery Blanca Facili ty:[facility] Start: 11-22-2023 Registered Recurring BEVERAGE MANAGER Ez reji Evangelist Work Phone: [facility] Start: 08-14-2023 End: 08-14-2023 ambulatory Avery Babb Blanca [facility] Work Phone: Start: 08-14-2023 End: 08-14-2023 Departed Referred CATIA Blanca Work Phone: 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 Blanca Work Phone: [facility] Work Phone: Start: 03-27-2023 [facility] visit new patient [facility]ck [facility] Start: 03-27-2023 End: 03-27-2023 Discharged Recurring CATIA Blanca Work Phone: [facility] Work Phone: Start: 03-27-2023 End: 03-27-2023 ambulatory CATIA Blanca Work Phone: [facility] Other Start: 03-27-2023 End: 03-27-2023 Patient encounter procedure CATIA Blanca Work Phone: [facility] Work Phone: Start: 01-19-2023 ambulatory Aung Salda[facility] ty:[facility] Start: 10-21-2022 End: 10-21-2022 Emergency department patient visit Thanh Bal Facility:[facility] Start: 03-26-2022 End: 03-26-[address] DEON MCGUIRE Facility: Start: 02-01-2022 End: 02-02-2022 Emergency department patient visit DO Judith Mock Facility:[facility] Start: 02-01-2022 End: 02-02-2022 Emergency department patient visit Judith Mock [facility] Start: 01-31-2022 End: 05-02-2022 ambulatory Varinder nAg Facility:[facility] Start: 01-18-2022 End: 01-18-2022 ambulatory Services [facility] Work Phone: [facility] Work Phone: Start: 01-18-2022 End: 01-18-2022 Patient encounter procedure Services Family [facility] Work Phone: [facility] [place] Start: 12-28-2021 End: 12-28-2021 Patient encounter procedure Services [facility] Work Phone: [facility] [place] Start: 12-23-2021 End: 12-23-2021 Patient encounter procedure Services [employer] Phone: [facility] [place] Start: 11-25-2021 End: 11-25-2021 Departed Referred Services [employer] Phone: [facility] Start: 11-18-2021 End: 11-20-[address] DOCTOR SALGADO Facility:[facility] Start: 11-10-2021 End: 11-11-2021 ambulatory MAGGY WORLEY Facility:[facility] Start: 11-05-2021 End: 11-06-2021 Emergency department patient visit Services [employer] Phone: [facility]gency [facility] Procedures Date Procedure Procedure Detail Performing Clinician Start: 11-27-2023 Bacteria identified in Urine by Culture Shaikh Jonatan OROURKE Work Phone: Start: 12-28-2021 MRI of thoracic spin e with contrast Services [employer] Phone: Start: 12-28-2021 XR pre/post mri xray Se [employer] Phone: Start: 12-28-2021 MRI of lumbar spine with contrast Services [employer] Phone: Start: 12-23-2021 MRI of head Services [facility] [employer] Work Phone: Aerobic microbial culture [facility] [employer] Phone: Anaerobic microbial culture Services [employer] Phone: Investigation of transfusion reaction Services [employer] Phone: Plan of Treatment Date Care Activity Detail Author Start: 01-22-2024 [facility] Start: 01-18-2024 Referral to clinical bakery associate [facility] Start: 01-15-2024 Referral to Records Management Assistant [facility] Start: 01-15-2024 Hospital admission [facility] Start: 01-18-2022 ROPE TOW OPERATOR antibody measurement [facility] Start: 01-18-2022 [facility] Start: 12-23-2021 [facility] Start: 12-23-[address] [facility] Work Phone: Start: 12-23-2021 [facility] Start: 12-23-2021 Lumbar puncture usin g fluoroscopic guidance [facility] Work Phone: Start: 11-25-2021 End: 11-25-2021 Departed Referred Departed Referred [facility] Albumin [Mass/volume ] in Cerebral spinal fluid [facility] Work Phone: Albumin [Mass/volume ] in Serum or Plasma [facility] Work Phone: Albumin/Globulin ratio [facility] Work Phone: Bacteria identified in Unspecified specimen by Aerobe culture [facility] Work Phone: Bacteria identified in Unspecified specimen by Anaerobe culture [facility] Work Phone: Cell count, cerebros alexus fluid [facility] Work Phone: Centromere protein B Ab [Units/volume] in Serum [facility] Work Phone: Cerebrospinal fluid examination [facility] Work Phone: Cerebrospinal fluid IgG ratio and IgG index [facility] Work Phone: Chromatin Ab [Units/ volume] in Serum or Plasma [facility] Work Phone: Comprehensive metabo lic 2000 panel - Serum or Plasma [facility] DNA double strand Ab [Units/volume] in Serum [facility] Work Phone: Electrophoresis: [id number] [facility] Work Phone: Electrophoresis: [id number] [facility] Work Phone: Electrophoresis: beta-globulin [facility] Work Phone: Electrophoresis: toby ma globulin [facility] Work Phone: Evaluation of cerebr ospinal fluid [facility] Work Phone: Fluid sample volume measurement [facility] Work Phone: Globulin [Mass/volum e] in Serum [facility] Work Phone: Glucose [Mass/volume ] in Cerebral spinal fluid [facility] Work Phone: Glutamate decarboxyl ase 65 Ab [Units/volume] in Serum [facility] IgG [Mass/volume] in Cerebral spinal fluid [facility] Work Phone: IgG [Mass/volume] in Serum or Plasma [facility] Work Phone: IgG clearance/Albumi n clearance [Ratio] in Serum and CSF [facility] Work Phone: IgG synthesis rate [Mass/time] in Serum and CSF by calculation [facility] Work Phone: Insulin Ab [Units/vo lume] in Serum [facility] Insulin C-peptide measurement [facility] Rika-1 extractable nuc lear Ab [Units/volume] in Serum [facility] Work Phone: Meningitis+Encephali tis pathogens DNA and RNA panel - Cerebral spinal fluid by GOPAL with non-probe detection [facility] Work Phone: Methylmalonate [Moles/volume] in Serum or Plasma [facility] Work Phone: Microscopic observat ion [Identifier] in Unspecified specimen by Gram stain [facility] Nucleated cells [#/v olume] in Cerebral spinal fluid by Manual count [facility] Work Phone: Patient Education [facility] Work Phone: Patient referral [facility] Work Phone: Protein [Mass/volume ] in Cerebral spinal fluid [facility] Work Phone: Protein [Mass/volume ] in Serum or Plasma [facility] Work Phone: Protein fractions.oligoclonal bands.intrathecal [Presence] in Serum and CSF [facility] Work Phone: Red blood cell count [facility] Work Phone: ROPE TOW OPERATOR antibody measurement [facility] Work Phone: SCL-70 extractable n uclear Ab [Units/volume] in Serum by Immunoassay [facility] Work Phone: Sjogrens syndrome-A extractable nuclear Ab [Units/volume] in Serum [facility] Work Phone: Sjogrens syndrome-B extractable nuclear Ab [Units/volume] in Serum [facility] Work Phone: Mcguire extractable nu clear Ab [Units/volume] in Serum [facility] Work Phone: Thiamine [Moles/volu me] in Blood [facility] Immunizations Immunization Date Immunization Notes Care Provider [facility] 01-31-2022 influenza virus vaccine, unspecified formulation Judith Piersonmandeepedwige [facility] Comment on above: Reason for Medicatio n: Prophylaxis Payers Date Payer Category Payer Self-pay [id number] 2021 Unknown 1985 Unknown [id number] 2.16.84 [id number] 1984 Unknown [id number] 2.16.84 [id number] 1984 Unknown [id number] 2.16.84 [id number] 1984 Unknown [id number] 2.16.8 [id number] 1984 Unknown [id number] 2.16.8 [id number] 1984 Unknown [id number] 2.16.8 [id number] 1984 Unknown [id number] 2.16.8 [id number] 1959 Unknown [id number] Medicaid [id number] Unknown [id number] 2.16.8 [id number] Unknown [id number] 2.16.8 [id number] Unknown [id number] 2.16.8 [id number] Unknown [id number] 2.16.8 [id number] Social History Date Type Detail Facility Start: 11-06-2021 End: 03-27-2023 Tobacco smoking status IAIS Ex-smoker (finding) [facility] Start: 1985 Sex Assigned At Female F [facility] Tobacco smoking status No Smoking Status Entered [facility] Sex Assigned At Female [facility] Start: 06-14-2023 End: 01-18-2024 Tobacco smoking status IAIS Smoker (finding) [facility] Tobacco smoking status [facility] Tobacco smoking consumption unknown [facility] Start: 1985 Sex assigned at Not on file [facility] Healthcare Goals Date Patient Goal Desired Activity /State Functional Status Date Assessment Result Facility 01-22-2024 Functional status Patient at Baseline [facility] Work Phone: 02-01-2022 Functional Status N/A [facility] Mental Status Date Assessment Result Facility 01-22-2024 Cognitive function Cognitive Sta tus Patient at Baseline [facility] Work Phone: Clinical Notes 02-01-2022 to 01-22-2024 Note Date & Type Note Facility 01-22-2024 Discharge summary Note Date/Time January 22, 2024 11:00am [facility] [address] [place] [address] Discharge Summary Signed Patient: Shikha Loera MR#: [id number] : 1985 Acct:[id number] Age/Sex: 38 / F Adm Date: 4 Loc: Room: [address] [place] [address]: Jack Kwon MD Copies to: MD Devonte Wu MD [facility]~ Providers Date of Discharge: 01/22/24 Discharging Provider: Devonte Valdovinos Primary Care Provider: Services [facility] Consults: 01/15/24 11:22 Consult to Case Management Routine Comment: CM Reason for Consult: Records Management Assistant-General 01/18/24 04:46 Consult to Adult Hospitalist Routine [...] depression, alcohol use disorder Past hospitalizations: Previous [address] [place] [address] hospitalization 10-15 years ago for suicide attempt [...] Important Contact Information You can call [facility] Inpatient Behavioral Health at [phone] any time day or night if you have emergent questions or question regarding discharge instructions. If at any time you are feeling an increase inyour psychiatric symptoms, call your physician or behavioral healthcare provider. If any time you have thoughts of harming yourself or others contact one of the following: Call 9-8-8 (available 30/10) Crisis Text Line (available 30/10) text 4HOPE to [phone] [facility] (available 8 a.m. Midnight) call [phone]-ABSA ([phone]) Regular Diet No Activity Restrictions Instructions: Depression, Adult (DC), Alcohol Use Disorder (DC), [facility] Health DC Instructions, Know your Meds [...] tablet 5 mg PO DAILY Follow Up: [facility] [Outside] - 01/23/24 (A watch caser will call you tomorrow 01/22 between 8-5 to discuss appointments and follow-up care. Financial and diagnostic assessment on 01/22 at 1:30pm Nursing intake on 02/05 at 10am Appointment with Dr. Valdovinos on 02/11 at 10:15am[facility] (see with any medical needs) Exam [...] <Electronically signed by Devonte Valdovinos MD> 01/22/[address] [facility] Work Phone: 1(116) 827-790610-14-2024 Progress note Author Devonte Valdovinos [facility] January 21, 2024 2:21pm Note Date/Time January 21, 2024 1 2:12pm [facility] [address] [place] [address] Psychiatry Progress Note Signed Patient: Shikha Loera MR#: [id number] : 1985 Acct:[id number] Age/Sex: 38 / F Adm Date: 4 Loc: Room: [address] [place] [address] Type : ADM IN Attending Dr: Jack [...] signed by Devonte Valdovinos MD> 01/21/24 1421 [facility] Work Phone: 1(280) 103-214910-13-2024 Progress note Author Jack wright [facility] January 20, 2024 5:40pm Note Date/Time January 20, 2024 1 1:39am [facility] [address] [place] [address] Psychiatry Progress Note Signed Patient: Shikha Loera MR#: [id number] : 1985 Acct:[id number] Age/Sex: 38 / F Adm Date: 4 Loc: 1S Room: [address] [place] [address] Type : ADM IN Attending Dr: Jack [...] to get ahold of her. Ena Rooney [phone] Mother stated she just talked to Shikha [...] <Electronically signed by Jack Kwon MD> 01/20/[address] [facility] Work Phone: 1(795) 948-262710-13-2024 Progress note Author Helen Bailon [facility] January 20, 2024 4:29pm Note Date/Time January 20, 2024 4 :29pm [facility] [address] [place] [address] Hospitalist Progress Note Signed Patient: Shikha Loera MR#: [id number] : 1985 Acct:[id number] Age/Sex: 38 / F Adm Date: 4 Loc: Room: [address] [place] [address] Type: ADM IN Attending Dr: Jack Kwon [...] By: <Electronically signed by CATIA Bailon> 01/20/241628 [facility] Work Phone: 1(875) 637-875310-12-2024 Progress note Author Helen Bailon [facility] January 19, 2024 4:50pm Note Date/Time January 19, 2024 4 :50pm [facility] [address] [place] [address] Hospitalist Progress Note Signed Patient: Shikha Loera MR#: [id number] : 1985 Acct:[id number] Age/Sex: 38 / F Adm Date: 4 Loc: Room: [address] [place] [address] Type: ADM IN Attending Dr: Jack Kwon [...] Documented By: Helen Bailon APRN 01/07 06/02 9609 Signed By: <Electronically signed by CATIA Sandsy> 01/19/24 1650 [facility] Work Phone: 1(947) 823-260510-12-2024 Progress note Author Jack wright [facility] January 19, 2024 8:01am Note Date/Time January 19, 2024 7 :59am [facility] [address] [place] [address] Psychiatry Progress Note Signed Patient: Shikha Loera MR#: [id number] : 1985 Acct:[id number] Age/Sex: 38 / F Adm Date: 4 Loc: Room: [address] [place] [address] Type : ADM IN Attending Dr: Jack [...] signed by Jack Kwon MD> 01/19/24 0801 [facility] Work Phone: 1(120) 650-552110-11-2024 Consult note Author Hari Nixon [facility] January 18, 2024 7:40pm Note Date/Time January 18, 2024 1 1:50am [facility] [address] [place] [address] Hospitalist Consult Note Signed Patient: Shikha Loera MR#: [id number] : 1985 Acct:[id number] Age/Sex: 38 / F Adm Date: 4 Loc: Room: [address] [place] [address] Type: ADM IN Attending Dr: Jack Kwon MD Copies to: Jack Kwon MD [facility] CATIA Dennis, DO~ HPI DATE [...] negative unless noted below or in HPI [facility] Medical History (Updated 01/18/24 @ 14:15 by [...] 10 Mg Tablet PO 01/18/25 08:59 DAILY [facility] Benztropine Mesylate 0.5 mg 01/15/24 10:57 Benztropine [...] signed by Hari Nixon DO> 01/18/24 194 [facility] Work Phone: 1(222) 185-867810-11-2024 Progress note Author Jack wright [facility] January 18, 2024 2:15pm Note Date/Time January 18, 2024 9 :31am [facility] [address] [place] [address] Psychiatry Progress Note Signed Patient: Shikha Loera MR#: [id number] : 1985 Acct:[id number] Age/Sex: 38 / F Adm Date: 4 Loc: Room: [address] [place] [address] Type : ADM IN Attending Dr: Jack [...] makes no 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 She [...] <Electronically signed by Jack Kwon MD> 01/18/24 8921 [facility] Work Phone: 1(549) 896-645010-10-2024 Progress note Author Jack wright [facility] January 17, 2024 6:35am Note Date/Time January 17, 2024 6 :35am [facility] [address] [place] [address] Psychiatry Progress Note Signed Patient: Shikha Loera MR#: [id number] : 1985 Acct:[id number] Age/Sex: 38 / F Adm Date: 4 Loc: 1S Room: [address] [place] [address] Type : ADM IN Attending Dr: aJck Kwon MD Copies to: ~ Date of [...] discharge. Documented By: Jack Kwon MD 4 [id number] Signed By: <Electronically signed by Jack Kwon MD> 01/17/24 0635 [facility] Work Phone: 1(637) 509-523010-09-2024 History and physical note Author Jack wright [facility] January 16, 2024 6:36am Note Date/Time January 15, 2024 11 :43am [facility] [address] [place] [address] Psychiatry H&P Signed Patient: Shikha Loera MR#: [id number] : 1985 Acct:[id number] Age/Sex: 38 / F Adm Date: Loc: Room: [address] [place] [address] Type: ADM IN Attending Dr: Jack Kwon MD Copies to: Jack Kwon MD [facility]~ Date of Service: 01/16/2024 HPI [...] her best friend. Patient was here at [address] [place] [address] during this time because she attempted suicide [...] depression, alcohol use disorder Past hospitalizations: Previous [address] [place] [address] hospitalization 10-15 years ago for suicide attempt [...] internalstimuli. Insight: limited , emerging Judgment: limited [facility] Medical History (Updated 01/16/24 @ 06:36 by [...] Cloudy A Urine pH 5.5 Ur Specific [place] 1.005 Urine Protein 20 H Urine Glucose [...] signed by Jack Kwon MD> 01/16/24 0636 [facility] Work Phone: [phone]) 807-584212-19-2023 Evaluation note* Encounter Date Diagnosis Assessment Notes [...] issues. 6. Prescriptions: New patient 03-27-2023 uses [facility]. Mar, Vitamin D deficiency (ICD-10 - E55.9) Mar, Hyperlipidemia, unspecified hyperlipidemia type (ICD-10 - E78.5) Mar, Hypertension, unspecified type (ICD-10 - I10) Mar, Dietary counseling and surveillance (ICD-10 - Z71.3) Mar, BMI 21.0-21.9, adult (ICD-10 - Z68.21) Mar, History of gestational diabetes (ICD-10 - Z86.32) [facility] Other 10-27-2022 Hospital Discharge instructions Patient Education 02/02/2022 00:18:28 Pyelonephritis, Adult, Ydsp-sw-Aslm Pyelonephritis, Adult Pyelonephritis is an infection that [...] even if youstart to feel better. Take pibb-joj-ebnomzp and prescription medicines only as told by [...] 05/03/2005 Document Revised: 01/28/2019 Document Reviewed: 01/28/2019 [employer] Patient Education 2020 Project Repat. Follow Up Care 02/01/2022 21:25:38 With:AVERY BLANCA Address: [address] [place] [address] [address] [place] [address]- [phone] Business (1) When:02/05/2022 Comments:You can use the pain medication every 6 hours as needed for pain, take the Bactrim twice daily until you have completed the course. Please follow-up with your primary care doctor the next 2 to 3 days. Please return to the ED for any new or worsening symptoms. [facility]10-26-2022 Evaluation + Plan noteExtracted from: Title:ED [...] With Cult Reflex Urine Culture US Gallbladder [facility] Narrative* Chief Complaint Referral Echd Detox DM [facility] Work Phone: Evaluation noteNo assessment information available [facility] Work Phone: Evaluation note* Diagnosis Onset Date Resolution Status Alcohol use disorder acute BMI 21.0-21.9, adult acute Controlled diabetes mellitus with hyperglycemia acute Dietary counseling and surveillance acute Hyperlipidemia acute Vitamin D deficiency acute [facility] Work Phone: Evaluation note* Diagnosis Onset Date Resolution Status Alcohol intoxication acute Suicidal ideations acute [facility] Work Phone: Evaluation note* Diagnosis Onset Date Resolution Status Alcohol intoxication acute Alcohol use disorder acute Alcohol withdrawal acute Bipolar depression acute HTN (hypertension) acute Hyperlipidemia acute Hypokalemia acute Hypomagnesemia acute Hypothyroid acute Suicidal ideations acute Vitamin D deficiency acute [facility] Work Phone: History general Narrative - Reported* Type Description Date Medical History Hx of abnormal pap Medical History Hx of pancreatitis Medical History type II diabetes Medical History bipolar Surgical History hemangioma removed from lip at age 4 Hospitalization History See Above Hospitalization History pancreatitis [facility] [place] [facility] Other Hospital course Narrative No data available for this section [facility] No data available for this section [facility] Chief Complaint and Reason for Visit [...] Member Role Status Dates Avery Blanca APRN [employer] Attending Provider Active Team Status: Inactive Member Role Status Dates Services [facility] Primary Care Provider Active Hal Orozco DO Emergency Provider Active Team Status: Inactive Member Role Status Dates Delfino Reese MD Attending Provider Active Yeyo Mcneill , [employer] Primary Care Provider Active Team Status: Active Member Role Status Dates Yeyo Mcneill , [employer]-C Primary Care Provider Active Team Status: Inactive Member Role Status Dates Yeyo Mcneill , [employer]-C Primary Care Provider Active Delfino Reese MD Attending Provider Active Team Status: Active Member Role Status Dates Avery Blanca APRN [employer] Primary Care Provider Act dario Team Status: Inactive Member Role Status Dates Becky Gambino APRN Attending Provider Active Start: March 27, 2023 End: March 27, 2023 Team Status: Inactive Member Role Status Dates Becky Gambino APRN Attending Provider Active Start: March 27, 2023 End: March 27, 2023 Avery Blanca APRN [employer] Primary Care Provider Act dario Start: March 27, 2023 End: March 27, 2023 Team Status: Inactive Member Role Status Dates Avery Blanca APRN [employer] Primary Care Provider Act dario Start: June 14, 2023 End: June 14, 2023 Becky Gambino APRN Attending Provider Active Start: June 14, 2023 End: June 14, 2023 Team Status: Inactive Member Role Status Dates Avery Blanca APRN [employer] Attending Provider Active Start: August 14, 2023 End: August 14, 2023 Team Status: Active Member Role Status Dates Services [facility] Primary Care Provider Active Team Status: Active Member Role Status Dates Avery Blanca APRN [employer] Primary Care Provider Act dario Start: November [...] Status: Inactive Member Role Status Dates Services [facility] Primary Care Provider Active Start: January 15, [...] Status: Active Member Role Status Dates Services [facility] Primary Care Provider Active Start: January 16, [...] DATE CREATED AUTHOR AUTHOR'S ORGANIZ ATION 01/20/2023 [facility] DATE CREATED AUTHOR AUTHOR'S ORGANIZ ATION 03/07/2024 [facility] REASON FOR VISIT (unrecogniz [...] BE BASED ON THE PRIMARY CLINICAL RECORDS. [facility] [employer] [facility]. provides no warranty or guarantee of the accuracy or completeness of information in this document.
[2024-04-22] MEDS: POTASSIUM CHLORIDE/D5-0.9%NACL 1,000 ML 125 ML IV (23:59)
[2024-04-23] VITALS (69 sets, daily range): BP systolic 83–151; BP diastolic 45–87; PULSE 57–104; TEMP 36.7–37.5; O2SAT 87–99
[2024-04-23] MEDS: ENOXAPARIN SODIUM 40 MG/0.4 ML SYRINGE SUBQ
[2024-04-23] MEDS: LORAZEPAM 1 MG TABLET 2 MG PO
[2024-04-23 05:45] LABS: Basophils Absolute Auto 0.1 10^3/uL (0.0-0.1); Basophils Percent Auto 2.8 % (0.2-2.0); Eosinophils Percent Auto 0.8 % (0.9-7.0); Hematocrit 37.3 % (36.0-48.0); Hemoglobin 12.4 g/dL (12.0-16.0); Immature Granulocytes Abs Auto 0.01 10^3/uL (0.00-0.03); Immature Granulocytes Pct Auto 0.3 % (0.0-0.5); Lymphocytes Absolute Auto 1.9 10^3/uL (1.2-3.8); Lymphocytes Percent Auto 48.6 % (20.5-60.0); Mean Corpuscular HGB Conc 33.2 g/dL (29.9-35.2); Mean Corpuscular Hemoglobin 31.1 pg (26.7-34.0); Mean Corpuscular Volume 93.5 fL (81.0-99.0); Mean Platelet Volume 9.7 fL (9.5-13.5); Monocytes Absolute Auto 0.5 10^3/uL (0.3-0.8); Monocytes Percent Auto 12.8 % (1.7-12.0); Neutrophils Absolute Auto 1.4 10^3/uL (1.4-6.5); Neutrophils Percent Auto 34.7 % (43.0-75.0); Platelet Count 218 10^3/uL (150-450); Red Blood Count 3.99 10^6/uL (4.20-5.40); Red Cell Distribution Width 13.8 % (11.0-15.0)
[2024-04-23 05:57] LABS: INR 1.11; Prothrombin Time 11.6 sec (9.0-11.6)
[2024-04-23 06:01] LABS: Alanine Aminotransferase 51 U/L (14-59); Albumin Globulin Ratio 0.9; Albumin Level 2.9 g/dL (3.4-5.0); Alkaline Phosphatase 95 U/L (46-116); Anion Gap 15.2; Aspartate Amino Transferase 54 U/L (15-37); BUN Creatinine Ratio 5.3; Bilirubin Total 0.4 mg/dL (0.2-1.0); Calcium 7.7 mg/dL (8.5-10.1); Carbon Dioxide 23.6 mmol/L (21.0-32.0); Chloride 108 mmol/L (98-107); Estimated GFR (African America >60 (>=60 mL/min/1.73m^2); Estimated GFR (Non-African Ame >60 (>=60 mL/min/1.73m^2); Globulin 3.3 g/dL; Glucose 221 mg/dL (74-106); Potassium 3.8 mmol/L (3.5-5.1); Sodium 143 mmol/L (136-145); Total Protein 6.2 g/dL (6.4-8.2)
[2024-04-23] MEDS: LORAZEPAM 1 MG TABLET PO ×5 (06:38→21:15)
[2024-04-23] MEDS: POTASSIUM CHLORIDE/D5-0.9%NACL 1,000 ML 125 ML IV (06:39)
--- OUTSIDE RECORDS SUMMARY | 2024-04-23 07:16 | XMS_ITS | CCD ---
Author Organization [facility] Care Team Providers Care Computer Programmer Name Role Phone [facility] Primary Care Provider [phone] DO Hal Orozco Emergency Provider CATIA Blanca Attending Provider MD Delfino Reese Attending Provider BRADY Mcneill Primary Care Provider [phone] AVERY BLANCA Primary Care Physician MAGGY WORLEY Consulting Unavailable MISC, DR GOMEZ Primary Care Unavailable MARKER, DR MARVIN Attending Unavailable MARKER, DR MARVIN Admitting Unavailable MARKER, DR MAVRIN Consulting Unavailable DEL ROSARIO, GITodd Consulting Unavailable [...] Care Provider MD Jack Kwon Attending Provider [facility] Primary Care Provider CATIA Kerr Emergency Provider MD Jack Kwon Admit Provider EFFIE Deal Other Provider Unavailable EFFIE Romero Other Provider Unavailable EFFIE Thornton Other Provider Unavailable EFFIE Tom Other Provider Unavailable Mio RN Estella Other Provider Unavailable DO Chandan Whipple Other Provider [phone] MD Cisco Calderon Other Provider DO [...] Johnson Other Provider CATIA Mcguire Other Provider [phone] CATIA Woods Other Provider MD Ashlee Osuna Other Provider MD Dariel Spence Other Provider [phone] DangeloDO Ermias forbes T Other Provider [phone] DO Gladys Matthews Other Provider MD Chato Juarez Other Provider MD Delma Kuo Other Provider [phone] CATIA Azar Other Provider [phone] MD Gurvinder Sosa Other Provider MD Sajan Knapp Other Provider EFFIE Carr Other Provider Unavailable Avery Blanca Primary Care Unavailable Becky Gambino Admitting Unavailable Becky Gambino Attending Unavailable Avery Blanca Attending Unavailable Avery Blanca Admitting Unavailable [facility] Primary Care Unavaila Avery [...] Swelling of Lip/Tongue/Throa t, Anaphylactic reaction, Unknown [facility] Medications Current Medications Medication Drug Class(es) Dates Sig (Normalized) Sig (Original) acetaminophen 325 mg / HYDROcodone bitartrate 5 mg oral tablet (1 source) Opioid Agonist Start: 02-02-2022 [place] 325 mg-5 mg oral tablet 1 tab(s), [...] 11-06-2021 End: 01-15-2024 Promethazine Discontinued 25 MG RI Q6H November 06, 2021 12:00am January 15, [...] 4 Chronic Other aftercare (1 source) Other fpc (current) drug therapy; Translations: [OTH USP CURRENT DRUG THERAPY] Onset: 2 Episodic Other [...] Creatinine Clr Calc Pharmacy 94.82 Normal [facility] Comment on above: Order Comment: DRAWN BY NAYANA Performed By: #### C MP, CBC, ETOH #### [address] GFR/1.73 sq M.predicted MDRD (S/P/Bld) [Vol rate/Area] mL/min/{1.73_m2} Normal [facility] Comment on above: Order Comment: DRAWN BY NAYANA Performed By: #### C MP, CBC, ETOH #### [facility] [address] Calcium [Mass/volume] in Ser um or PlasmaOrdered By: Helen Bailon on 01-20-2024 Calcium [Mass/Vol] 9.3 mg/dL Normal 8.6-10.3 [facility] Comment on above: Order Comment: DRAWN BY MK Performed By: #### C MP, CBC, ETOH #### [facility] [address] Capillary blood glucose archie urement by glucometer (mass/volume)Ordered By: Jack Kwon on 01-20-2024 Glucose [Mass/Vol] 161 mg/dL Normal [facility] Comment on above: Random Glucose Refer ence Range is dependent on time and content of last meal. Glucose of more than 200 mg/dL in a nonstressed, ambulatory subject supports the diagnosis of Diabetes Mellitus. Result Comment: Mobile om Glucose Reference Range is dependent on time and content of last meal. Glucose of more than 200 mg/dL in a nonstressed, ambulatory subject supports the diagnosis of Diabetes Mellitus. PERFORMED BY: [place] [address] PATHOLOGIST PROJECT LEAD OSMEL BLUE M.D. Performed By: #### C MP, CBC, ETOH #### [facility] [address] [place] [address] Carbon dioxide, total [Moles /volume] in Serum or PlasmaOrdered By: Helen Bailon on 01-20-2024 CO2 [Moles/Vol] 22.5 mmol/L Normal 21.0-31.0 [facility] Comment on above: Order Comment: DRAWN BY MK Performed By: #### C MP, CBC, ETOH #### [facility] [address] [place] [address] [place] Chloride [Moles/volume] in S ben or PlasmaOrdered By: Helen Bailon on 01-20-2024 Chloride [Moles/Vol] 107 mmol/L Normal 98-107 [facility] Comment on above: Order Comment: DRAWN BY MK Performed By: #### C MP, CBC, ETOH #### [facility] [address] Creatinine [Mass/volume] in Serum or PlasmaOrdered By: Helen Bailon on 01-20-2024 Creatinine [Mass/Vol] 0.77 mg/dL Normal 0.60-1.20 [facility] Comment on above: Order Comment: DRAWN BY MK Performed By: #### C MP, CBC, ETOH #### [facility] [address] Glucose [Mass/volume] in Ser um or PlasmaOrdered By: Helen Bailon on 01-20-2024 Glucose [Mass/Vol] 98 mg/dL Normal 70-100 [facility] Comment on above: ADA recommended refe rence rangeRandom Glucose Reference Range is dependent on time and content of last meal. Glucose of more than 200 mg/dL in a nonstressed, ambulatory subject supports the diagnosis of Diabetes Mellitus. Order Comment: DRAWN BY MK Result Comment: Mobile om Glucose Reference Range is dependent on time and content of last meal. Glucose of more than 200 mg/dL in a nonstressed, ambulatory subject supports the diagnosis of Diabetes Mellitus. ADA recommended reference range Performed By: #### C MP, CBC, ETOH #### [facility] [address] Magnesium [Mass/volume] in S ben or PlasmaOrdered By: Helen Bailon on 01-20-2024 Magnesium [Mass/Vol] 1.6 mg/dL Low 1.9-2.7 [facility] Comment on above: Order Comment: DRAWN BY Result Comment: PERF ORMED BY: [place] [address] PATHOLOGIST PROJECT LEAD OSMEL BLUE M.D. Performed By: #### C MP, CBC, ETOH #### [facility] [address] No Panel InformationOrdered By: Helen Bailon on 01-20-2024 Estimated GFR (CKD-EPI) > 60.0 mL/Min [facility] Creatinine Clearance (Chem 94.82 [facility] Potassium [Moles/volume] in Serum or PlasmaOrdered By: Helen Uvaldo on 01-20-2024 Potassium [Moles/Vol] 3.9 mmol/L Normal 3.5-5.1 [facility] Comment on above: Order Comment: DRAWN BY MK Performed By: #### C MP, CBC, ETOH #### [facility] [address] Serum or plasma anion gap de terminationOrdered By: Helen Uvaldo on 01-20-2024 Anion gap [Moles/Vol] 13.4 mmol/L Normal 6.0-15.0 [facility] Comment on above: Order Comment: DRAWN BY MK Performed By: #### C MP, CBC, ETOH #### [facility] [address] [place] [address] [place] Sodium [Moles/volume] in Ser um or PlasmaOrdered By: Helen Uvaldo on 01-20-2024 Sodium [Moles/Vol] 139 mmol/L Normal 136-145 [facility] Comment on above: Order Comment: DRAWN BY MK Performed By: #### C MP, CBC, ETOH #### [facility] [address] [place] [address] [place] Urea nitrogen [Mass/volume] in Serum or PlasmaOrdered By: Helen Uvaldo on 01-20-2024 Urea nitrogen [Mass/Vol] 11 mg/dL Normal 7-25 [facility] Comment on above: Order Comment: DRAWN BY MK Performed By: #### C MP, CBC, ETOH #### [facility] [address] [place] [address] [place] A1C with Estimated Average G verotodd 01-19-2024 Glucose [Mass/Vol] 105 mg/dL Normal [facility] Comment on above: Order Comment: Comme nt ok to use previously drawn lab Result Comment: PERF ORMED BY: [place] [address] PATHOLOGIST PROJECT LEAD OSMEL BLUE M.D. Performed By: #### A 1C [facility] eA #### [facility] [address] [place] [address] [place] Alanine aminotransferase [En zymatic activity/volume] in Serum or PlasmaOrdered By: Helentodd Bailon on 01-19-2024 ALT [Catalytic activity/Vol] 76 U/L High 7-52 [facility] Comment on above: Performed By: #### C MP, CBC, ETOH #### [facility] [address] [place] [address] [place] Albumin [Mass/volume] in Ser um or Plasma by Bromocresol green (BCG) dye binding methoOrdered By: Helen Bailon on 01-19-2024 Albumin BCG dye [Mass/Vol] 3.9 g/dL 3.5-5.7 [facility] Alkaline phosphatase [Enzyma tic activity/volume] in Serum or PlasmaOrdered By: Helen Bailon on 01-19-2024 ALP [Catalytic activity/Vol] 80 U/L Normal 34-104 [facility] Comment on above: Performed By: #### C MP, CBC, ETOH #### [facility] [address] Aspartate aminotransferase [ Enzymatic activity/volume] in Serum or PlasmaOrdered By: Helen Bailon on 01-19-2024 AST [Catalytic activity/Vol] 110 U/L High 13-39 [facility] Comment on above: Performed By: #### C MP, CBC, ETOH #### [facility] [address] [place] [address] [place] Bilirubin.total [Mass/volume ] in Serum or PlasmaOrdered By: Helen Bailon on 01-19-2024 Bilirubin [Mass/Vol] 0.7 mg/dL Normal 0.3-1.0 [facility] Comment on above: Performed By: #### C MP, CBC, ETOH #### [facility] [address] [place] [id number] [place] Comprehensive Metabolic Pane mike 01-19-2024 Albumin [Mass/Vol] 3.9 g/dL Normal 3.5-5.7 [facility] Comment on above: Performed By: #### C MP, CBC, ETOH #### [facility] [address] [place] [id number] [place] Anion gap [Moles/Vol] 14.1 mmol/L Normal 6.0-15.0 [facility] Comment on above: Performed By: #### C MP, CBC, ETOH #### [facility] [address] [place] [id number] [place] Calcium [Mass/Vol] 9.3 mg/dL Normal 8.6-10.3 [facility] Comment on above: Performed By: #### C MP, CBC, ETOH #### [facility] [address] [place] [address] [place] Chloride [Moles/Vol] 108 mmol/L High 98-107 [facility] Comment on above: Performed By: #### C MP, CBC, ETOH #### [facility] [address] [place] [address] [place] CO2 [Moles/Vol] 22.1 mmol/L Normal 21.0-31.0 [facility] Comment on above: Performed By: #### C MP, CBC, ETOH #### [facility] [address] [place] [address] [place] Creatinine [Mass/Vol] 0.63 mg/dL Normal 0.60-1.20 [facility] Comment on above: Performed By: #### C MP, CBC, ETOH #### [place] [address] [place] Creatinine Clr Calc Pharmacy 115.90 Normal [facility] Comment on above: Performed By: #### C MP, CBC, ETOH #### [facility] [address] [place] [address] [place] GFR/1.73 sq M.predicted MDRD (S/P/Bld) [Vol rate/Area] mL/min/{1.73_m2} Normal [facility] Comment on above: Performed By: #### C MP, CBC, ETOH #### [facility] [address] [place] [id number] [place] Glucose [Mass/Vol] 85 mg/dL Normal 70-100 [facility] Comment on above: Result Comment: [facility] Glucose Reference Range is dependent on time and content of last meal. Glucose of more than 200 mg/dL in a nonstressed, ambulatory subject supports the diagnosis of Diabetes Mellitus. ADA recommended reference range Performed By: #### C MP, CBC, ETOH #### [facility] [address] Potassium [Moles/Vol] 3.2 mmol/L Low 3.5-5.1 [facility] Comment on above: Performed By: #### C MP, CBC, ETOH #### [facility] [address] [place] [address] [place] Sodium [Moles/Vol] 141 mmol/L Normal 136-145 [facility] Comment on above: Performed By: #### C MP, CBC, ETOH #### [facility] [address] [place] [id number] [place] Urea nitrogen [Mass/Vol] 7 mg/dL Normal 7-25 [facility] Comment on above: Performed By: #### C MP, CBC, ETOH #### [facility] [address] [place] [id number] [place] Folate [Mass/volume] in Seru m or PlasmaOrdered By: Helen Bailon on 01-19-2024 Folate [Mass/Vol] 36.0 ng/mL >5.9 [facility] Comment on above: Folate reference ran ge: >5.9 ng/mlThe WHO technical consultation on folate and vitamin [id number] has determined that folate concentrations lessthan 4 ng/ml are considered deficient. Glucose mean value [Mass/vol ume] in Blood Estimated from glycated hemoglobinOrdered By: Helen Bailon on 01-19-2024 Average glucose Estimated from glycated hemoglobin (Bld) [Mass/Vol] 105 mg/dL [facility] Hemoglobin A1c percentageOrd ered By: Helen Bailon on 01-19-2024 HbA1c (Bld) [Mass fraction] 5.3 % Normal 4.3-5.6 [facility] Comment on above: Increased risk for d iabetes: 5.7 - 6.4diabetes: >6.4glycemic control for adults with diabetes: <7.0 Order Comment: Comme nt ok to use previously drawn lab Result Comment: Incr eased risk for diabetes: 5.7 - 6.4 diabetes: >6.4 glycemic control for adults with diabetes: <7.0 Performed By: #### A 1C [facility] #### [address] Lipase [Enzymatic activity/v olume] in Serum or PlasmaOrdered By: Helen Bailon on 01-19-2024 Lipase [Catalytic activity/Vol] U/L Low 11.0-82.0 [facility] Comment on above: Performed By: #### C MP, CBC, ETOH #### [address] Phosphate [Mass/volume] in S ben or PlasmaOrdered By: Helen Bailon on 01-19-2024 Phosphate [Mass/Vol] 6.4 mg/dL High 2.5-4.5 [facility] Comment on above: Performed By: #### C MP, CBC, ETOH #### [address] Protein [Mass/volume] in Ser um or PlasmaOrdered By: Helen Bailon on 01-19-2024 Protein [Mass/Vol] 6.7 g/dL Normal 6.4-8.9 [facility] Comment on above: Performed By: #### C MP, CBC, ETOH #### [address] Serum globulin measurement b y calculation (mass/volume)Ordered By: Helen Bailon on 01-19-2024 Globulin (S) [Mass/Vol] 2.8 g/dL Normal [facility] Comment on above: Performed By: #### C MP, CBC, ETOH #### [address] Serum or plasma albumin/glob ulin mass ratioOrdered By: Helen Bailon on 01-19-2024 Albumin/Globulin [Mass ratio] 1.4 {ratio} [facility] Comment on above: Performed By: #### C MP, CBC, ETOH #### [address] Vit. B12/Folate Profileon Folate 36.0 ng/mL Normal >5.9 [facility] Comment on above: Result Comment: Dorie te reference range: >5.9 ng/ml The WHO technical consultation on folate and vitamin b12 deficiencies has determined that folate concentrations less than 4 ng/ml are considered deficient. PERFORMED BY: [place] [address] PATHOLOGIST PROJECT LEAD OSMEL BLUE M.D. Performed By: #### C MP, CBC, ETOH #### [address] Vitamin B1 (Thiamine) Bloodo n 01-19-2024 Vitamin B1 (Thiamine) Blood 207.3 High 66.5-200.0 [facility] Comment on above: Result Comment: This test was developed and its performance characteristics determined by [employer]. It has not been cleared or approved by the Food and Drug Administration. Performed at: [address] [id number] [employer] Insurance: Charlie Manriquez MD, Phone: [phone] PERFORMED BY: [place] [address] PATHOLOGIST PROJECT LEAD OSMEL BLUE M.D. Performed By: #### C MP, CBC, ETOH #### [address] Vitamin B12 ser/plasOrdered By: Helen Bailon on 01-19-2024 Cobalamin (Vitamin B12) [Mass/Vol] 392 pg/mL Normal 180-914 [facility] Comment on above: Performed By: #### C MP, CBC, ETOH #### [place] [id number] [facility] Comprehensive Metabolic Pane mike 01-18-2024 Albumin [Mass/Vol] 4.5 g/dL Normal 3.5-5.7 [facility] Comment on above: Performed By: #### C MP, CBC, ETOH #### [place] [address] [place] Albumin/Globulin [Mass ratio] 1.5 {ratio} Normal [facility] Comment on above: Performed By: #### C MP, CBC, ETOH #### [address] ALP [Catalytic activity/Vol] 97 U/L Normal 34-104 [facility] Comment on above: Performed By: #### C MP, CBC, ETOH #### [address] ALT [Catalytic activity/Vol] 66 U/L High 7-52 [facility] Comment on above: Performed By: #### C MP, CBC, ETOH #### [address] Anion gap [Moles/Vol] 14.5 mmol/L Normal 6.0-15.0 [facility] Comment on above: Performed By: #### C MP, CBC, ETOH #### [address] AST [Catalytic activity/Vol] 103 U/L High 13-39 [facility] Comment on above: Performed By: #### C MP, CBC, ETOH #### [place] [address] [place] Bilirubin [Mass/Vol] 0.7 mg/dL Normal 0.3-1.0 [facility] Comment on above: Performed By: #### C MP, CBC, ETOH #### [place] [address] [place] Calcium [Mass/Vol] 10.2 mg/dL Normal 8.6-10.3 [facility] Comment on above: Performed By: #### C MP, CBC, ETOH #### [place] [address] [place] Chloride [Moles/Vol] 105 mmol/L Normal 98-107 [facility] Comment on above: Performed By: #### C MP, CBC, ETOH #### [address] CO2 [Moles/Vol] 23.9 mmol/L Normal 21.0-31.0 [facility] Comment on above: Performed By: #### C MP, CBC, ETOH #### [address] Creatinine [Mass/Vol] 0.66 mg/dL Normal 0.60-1.20 [facility] Comment on above: Performed By: #### C MP, CBC, ETOH #### [address] Creatinine Clr Calc Pharmacy 110.63 Normal [facility] Comment on above: Result Comment: PERF ORMED BY: [place] [address] PATHOLOGIST PROJECT LEAD OSMEL BLUE M.D. Performed By: #### C MP, CBC, ETOH #### [address] GFR/1.73 sq M.predicted MDRD (S/P/Bld) [Vol rate/Area] mL/min/{1.73_m2} Normal [facility] Comment on above: Performed By: #### C MP, CBC, ETOH #### [address] Globulin (S) [Mass/Vol] 3.1 g/dL Normal [facility] Comment on above: Performed By: #### C MP, CBC, ETOH #### [address] Glucose [Mass/Vol] 135 mg/dL High 70-100 [facility] Comment on above: Result Comment: Mobile Glucose Reference Range is dependent on time and content of last meal. Glucose of more than 200 mg/dL in a nonstressed, ambulatory subject supports the diagnosis of Diabetes Mellitus. ADA recommended reference range Performed By: #### C MP, CBC, ETOH #### [address] Potassium [Moles/Vol] 3.4 mmol/L Low 3.5-5.1 [facility] Comment on above: Performed By: #### C MP, CBC, ETOH #### [facility] [address] [place] [address] [place] Protein [Mass/Vol] 7.6 g/dL Normal 6.4-8.9 [facility] Comment on above: Performed By: #### C MP, CBC, ETOH #### [facility] [address] [place] [address] [place] Sodium [Moles/Vol] 140 mmol/L Normal 136-145 [facility] Comment on above: Performed By: #### C MP, CBC, ETOH #### [facility] [address] [place] [address] [place] Urea nitrogen [Mass/Vol] 5 mg/dL Low 7-25 [facility] Comment on above: Performed By: #### C MP, CBC, ETOH #### [facility] [address] Magnesiumon 01-18-2024 Magnesium [Mass/Vol] 1.4 mg/dL Low 1.9-2.7 [facility] Comment on above: Result Comment: PERF ORMED BY: [place] [address] PATHOLOGIST PROJECT LEAD OSMEL BLUE M.D. Performed By: #### C MP, CBC, ETOH #### [place] [address] [place] Cholesterol [Mass/volume] in Serum or PlasmaOrdered By: Jack Kwon on 01-16-2024 Cholesterol [Mass/Vol] 270 mg/dL High 140-200 [facility] Comment on above: Chol less than 200 m g/dl low riskChol 201-239 mg/dl borderline riskChol 240 mg/dl and greater high risk Result Comment: Chol less than 200 mg/dl low risk Chol 201-239 mg/dl borderline risk Chol 240 mg/dl and greater high risk Performed By: #### C MP, CBC, ETOH #### [place] [address] [place] Cholesterol in LDL Calc [Mas s/Vol]Ordered By: Jack Kwon on 01-16-2024 Cholesterol in LDL [Mass/Vol] 134 mg/dL High 0-100 [facility] Comment on above: LDL ATP III CLASSIFI CATIONLDL less than 100 mg/dL OptimalLDL 100-129 mg/dL Near or above optimalLDL 130-159 mg/dL Borderline highLDL 160-189 mg/dL HighLDL greater than 189 mg/dL Very high Cholesterol in VLDL Calc [Ma ss/Vol]Ordered By: Jack Kwon on 01-16-2024 Cholesterol in VLDL [Mass/Vol] 28 mg/dL [facility] ECG 12 lead ECGon 01-16-2024 ECG 12 lead ECG [facility] [place] [address] Electrocardiograph Report Signed Patient: Shikha Loera MR#: [id number] : 1985 Acct:[id number] Age/Sex: 38 / F ADM Date: 01/15/24 Loc: Room: [address] [place] [address] Type: ADM IN Attending Dr: Jack Kwon [...] rhythm Normal ECG Confirmed by Almaz Armando ([id number]) on 01/16/2024 4:49:39 PM Referred By: Electronically Signed By: Almaz Armando Transcribed By: MUS Signed By Almaz Armando MD 4 [phone] Normal [facility] Lipid Panelon 01-16-2024 LDL Cholesterol,Calculated 134 mg/dL High 0-100 [facility] Comment on above: Result Comment: LDL ATP III CLASSIFICATION LDL less than 100 mg/dL Optimal LDL 100-129 mg/dL Near or above optimal LDL 130-159 mg/dL Borderline high LDL 160-189 mg/dL High LDL greater than 189 mg/dL Very high Performed By: #### C MP, CBC, ETOH #### [facility] [address] Triglyceride w/Reflex 143 mg/dL Normal 0-149 [facility] Comment on above: Result Comment: TRIG ATP III CLASSIFICATION TRIG less than 150 mg/dL Normal TRIG 150-199 mg/dL Borderline high TRIG 200-500 mg/dL High TRIG greater than 500 mg/dL Very high Standard traceable to the Center for Disease Conrtrol and Prevention (CDC) test method. Performed By: #### C MP, CBC, ETOH #### [facility] [address] VLDL CHOLESTEROL 28 mg/dL Normal [facility] Comment on above: Performed By: #### C MP, CBC, ETOH #### [facility] [address] Magnesiumon 01-16-2024 Magnesium [Mass/Vol] 1.6 mg/dL Low 1.9-2.7 [facility] Comment on above: Performed By: #### C MP, CBC, ETOH #### [facility] [address] Serum or plasma high density lipoprotein (HDL) cholesterol measurementOrdered By: Jack Kwon on 01-16-2024 Cholesterol in HDL [Mass/Vol] 107 mg/dL High 23-92 [facility] Comment on above: HDL CHOL ATP-III CLA SSIFICATION Cardiovascular RiskHDL > or equal to 60 mg/dL LOWHDL < 40 mg/dL HIGH Result Comment: HDL CHOL ATP-III CLASSIFICATION Cardiovascular Risk HDL > or equal to 60 mg/dL LOW HDL < 40 mg/dL HIGH Performed By: #### C MP, CBC, ETOH #### [facility] [address] Serum or plasma total choles terol/high density lipoprotein (HDL) cholesterol mass ratOrdered By: Jack Kwon on 01-16-2024 Cholesterol.total/Chol esterol in HDL [Mass ratio] 2.5 {ratio} Normal <5.0 [facility] Comment on above: Performed By: #### C MP, CBC, ETOH #### [facility] [address] [place] [id number] [facility] Thyroid Stim Hormone w/Rflxo n 01-16-2024 Thyroid Stim Hormone w/Rflx 3.66 u[iU]/mL Normal 0.45-5.33 [facility] Comment on above: Performed By: #### C MP, CBC, ETOH #### [facility] [address] [place] [id number] [facility] Thyrotropin [Units/volume] i n Serum or PlasmaOrdered By: Jack Kwon on 01-16-2024 TSH Qn 3.66 m[IU]/L 0.45-5.33 [facility] Triglyceride [Mass/volume] i n Serum or PlasmaOrdered By: Jack Kwon on 01-16-2024 Triglyceride [Mass/Vol] 143 mg/dL 0-149 [facility] Comment on above: TRIG ATP III CLASSIF ICATIONTRIG less than 150 mg/dL NormalTRIG 150-199 mg/dL Borderline highTRIG 200-500 mg/dL High TRIG greater than 500 mg/dL Very highStandard traceable to the Center for Disease Conrtrol and Prevention (CDC) test method. Vitamin D 25 Hydroxy Totalon 01-16-2024 Vitamin D 25 Hydroxy Total 12.7 ng/mL Low 30-100 [facility] Comment on above: Result Comment: SANTY MIN D STATUS 25(OH)VITAMIN D RANGE (ng/mL) Deficient <20 Insufficient 20 to <30 Sufficient 30 to 100 Reference: Davey MF,Merlin NC, Morales FOX, et al. Evaluation,treatment, and prevention of vitamin D deficiency; an Endocrine Society clinical practice guideline. JCEM. 2010; 96(7):1911-30. PERFORMED BY: [place] [address] PATHOLOGIST PROJECT LEAD OSMEL BLUE M.D. Performed By: #### C MP, CBC, ETOH #### [facility] [address] [id number] [facility] Vitamin D+Metabolites [Mass/ volume] in Serum or PlasmaOrdered By: Jack Kwon on 01-16-2024 Vitamin D+Metabolites [Mass/Vol] 12.7 ng/mL Low 30-100 [facility] Comment on above: VITAMIN D STATUS [...] ALT [Catalytic activity/Vol] 80 U/L High 7-52 [facility] Comment on above: Performed By: #### C MP, CBC, ETOH #### [facility] [address] [place] [address] [place] Albumin [Mass/volume] in Ser um or Plasma by Bromocresol green (BCG) dye binding methoOrdered By: Libby Kerr on 01-14-2024 Albumin BCG dye [Mass/Vol] 4.6 g/dL 3.5-5.7 [facility] Alkaline phosphatase [Enzyma tic activity/volume] in Serum or PlasmaOrdered By: Libby Kerr on 01-14-2024 ALP [Catalytic activity/Vol] 115 U/L High 34-104 [facility] Comment on above: Result Comment: PERF ORMED BY: [facility] [address] [facility] [place] [address] PATHOLOGIST PROJECT LEAD OSMEL BLUE M.D. Performed By: #### C MP, CBC, ETOH #### [facility] [address] [id number] [place] Amphetamine Screen Ql (U)Ord ered By: Libby Kerr on 01-14-2024 Amphetamines Ql (U) Negative Negative [facility] Aspartate aminotransferase [ Enzymatic activity/volume] in Serum or PlasmaOrdered By: Libby Kerr on 01-14-2024 AST [Catalytic activity/Vol] 127 U/L High 13-39 [facility] Comment on above: Performed By: #### C MP, CBC, ETOH #### [address] Automated basophil %Ordered By: Libby Attilamay on 01-14-2024 Basophils/100 WBC (Bld) 3.1 % Normal . [facility] Comment on above: Performed By: #### C MP, CBC, ETOH #### [address] Automated basophil countOrde red By: Libby Attilamay on 01-14-2024 Basophils (Bld) [#/Vol] 0.1 10*3/uL Normal 0.0-0.2 [facility] Comment on above: Result Comment: PERF ORMED BY: [place] [address] PATHOLOGIST PROJECT LEAD OSMEL BLUE M.D. Performed By: #### C MP, CBC, ETOH #### [address] Automated blood monocyte cou ntOrdered By: Libby Attilamay on 01-14-2024 Monocytes (Bld) [#/Vol] 0.2 10*3/uL Normal 0.0-0.8 [facility] Comment on above: Performed By: #### C MP, CBC, ETOH #### [address] Automated eosinophil %Ordere d By: Libby Kerr on 01-14-2024 Eosinophils/100 WBC (Bld) 0.3 % Normal . [facility] Comment on above: Performed By: #### C MP, CBC, ETOH #### [address] Automated eosinophil countOr dered By: Libby Attilamay on 01-14-2024 Eosinophils (Bld) [#/Vol] 0.0 10*3/uL Normal 0.0-0.45 [facility] Comment on above: Performed By: #### C MP, CBC, ETOH #### [address] Automated monocyte %Ordered By: Libby Kerr on 01-14-2024 Monocytes/100 WBC (Bld) 3.1 % Normal . [facility] Comment on above: Performed By: #### C MP, CBC, ETOH #### [facility] [address] Automated neutrophil %Ordere d By: Libby Kerr on 01-14-2024 Neutrophils/100 WBC (Bld) 44.5 % Normal . [facility] Comment on above: Performed By: #### C MP, CBC, ETOH #### [facility] [address] Bacteria [Presence] in Urine by AutomatedOrdered By: Libby Kerr on 01-14-2024 Bacteria Auto Ql (U) 1+ [HPF] High None Seen [facility] Barbiturates [Presence] in U rine by Screen methodOrdered By: Libby Kerr on 01-14-2024 Barbiturates Screen Ql (U) Negative Negative [facility] Benzodiazepines Screen Ql (U )Ordered By: Libby Kerr on 01-14-2024 Benzodiazepines Ql (U) Negative Negative [facility] Benzoylecgonine [Presence] i n Urine by Screen methodOrdered By: Libby Kerr on 01-14-2024 Benzoylecgonine Screen Ql (U) Negative Negative [facility] Bilirubin Test strip Ql (U)O rdered By: Libby Kerr on 01-14-2024 Bilirubin Ql (U) Negative Negative [facility] Bilirubin.total [Mass/volume ] in Serum or PlasmaOrdered By: Libby Kerr on 01-14-2024 Bilirubin [Mass/Vol] 0.6 mg/dL Normal 0.3-1.0 [facility] Comment on above: Performed By: #### C MP, CBC, ETOH #### [facility] [address] [place] [address] [place] Calcium [Mass/volume] in Ser um or PlasmaOrdered By: Libby Kerr on 01-14-2024 Calcium [Mass/Vol] 9.2 mg/dL Normal 8.6-10.3 [facility] Comment on above: Performed By: #### C MP, CBC, ETOH #### [place] [address] [place] Cannabinoids [Presence] in U rine by Screen methodOrdered By: Libby Kerr on 01-14-2024 Cannabinoids Screen Ql (U) Negative Negative [facility] Comment on above: These are unconfirme d results and should not be used for legal purposes. Drug Cut-Off Concentration: AMPH 1000 ng/mL DALLAS 200 ng/mL DAVID 200 ng/mL COCM 300 ng/mL OP 300 ng/mL PCP 25 ng/mL THC 20 ng/mL Carbon dioxide, total [Moles /volume] in Serum or PlasmaOrdered By: Libby Kerr on 01-14-2024 CO2 [Moles/Vol] 23.5 mmol/L Normal 21.0-31.0 [facility] Comment on above: Performed By: #### C MP, CBC, ETOH #### [place] [address] [place] Chloride [Moles/volume] in S ben or PlasmaOrdered By: Libby Kerr on 01-14-2024 Chloride [Moles/Vol] 102 mmol/L Normal 98-107 [facility] Comment on above: Performed By: #### C MP, CBC, ETOH #### [address] Color of Urine by AutoOrdere d By: Libby Kerr on 01-14-2024 Color (U) Light-yellow Normal Yellow [facility] Comment on above: Order Comment: Name Collection Type:: Clean-Voided Midstream Performed By: #### C MP, CBC, ETOH #### [place] [address] [place] Complete Blood Count Auto Di ffon 01-14-2024 Mean Corpuscular HGB Conc 35.0 g/dL Normal 32.0-35.0 [facility] Comment on above: Performed By: #### C MP, CBC, ETOH #### [place] [address] [place] Monocytes/100 WBC (Bld) 17.74 % Normal 0.00-20.00 [facility] Comment on above: Result Comment: For adults in ED, MDW > 20.0 may be associated with a higher risk of sepsis during the first 12 hrs of hospital admission Performed By: #### C MP, CBC, ETOH #### [address] NRBC% 0.1 /100{WBC} Normal 0-0.5 [facility] Comment on above: Performed By: #### C MP, CBC, ETOH #### [address] Comprehensive Metabolic Pane mike 01-14-2024 Albumin [Mass/Vol] 4.6 g/dL Normal 3.5-5.7 [facility] Comment on above: Performed By: #### C MP, CBC, ETOH #### [address] GFR/1.73 sq M.predicted MDRD (S/P/Bld) [Vol rate/Area] mL/min/{1.73_m2} Normal [facility] Comment on above: Performed By: #### C MP, CBC, ETOH #### [address] Creatinine [Mass/volume] in Serum or PlasmaOrdered By: Libby Kerr on 01-14-2024 Creatinine [Mass/Vol] 0.58 mg/dL Low 0.60-1.20 [facility] Comment on above: Performed By: #### C MP, CBC, ETOH #### [place] [address] [place] Dipstick and Microscopicon 1 Bacteria,Urine 1+ High None Seen [facility] Comment on above: Order Comment: Name Collection Type:: Clean-Voided Midstream Performed By: #### C MP, CBC, ETOH #### [address] Bilirubin,Urine Negative Normal Negative [facility] Comment on above: Order Comment: Name Collection Type:: Clean-Voided Midstream Performed By: #### C MP, CBC, ETOH #### [address] Glucose Ql (U) Normal Normal Normal [facility] Comment on above: Order Comment: Name Collection Type:: Clean-Voided Midstream Performed By: #### C MP, CBC, ETOH #### [facility] [address] [place] [address] [place] Hyaline Casts,Urine 0-8 Normal 0-8 [facility] Comment on above: Order Comment: Name Collection Type:: Clean-Voided Midstream Performed By: #### C MP, CBC, ETOH #### [place] [address] [place] Nitrite,Urine Negative Normal Negative [facility] Comment on above: Order Comment: Name Collection Type:: Clean-Voided Midstream Performed By: #### C MP, CBC, ETOH #### [place] [address] [place] Occult Blood,Urine Negative Normal Negative [facility] Comment on above: Order Comment: Name Collection Type:: Clean-Voided Midstream Performed By: #### C MP, CBC, ETOH #### [address] RBC,Urine 1-2 Normal 0-4 [facility] Comment on above: Order Comment: Name Collection Type:: Clean-Voided Midstream Performed By: #### C MP, CBC, ETOH #### [address] Specificy [place],Urine 1.005 Normal 1.001-1.03 0 [facility] Comment on above: Order Comment: Name Collection Type:: Clean-Voided Midstream Performed By: #### C MP, CBC, ETOH #### [place] [address] [place] Squamous Epithelial Cell,Urine 3-4 High 0-2 [facility] Comment on above: Order Comment: Name Collection Type:: Clean-Voided Midstream Performed By: #### C MP, CBC, ETOH #### [place] [address] [place] Urobilinogen,Urine Normal Normal Normal [facility] Comment on above: Order Comment: Name Collection Type:: Clean-Voided Midstream Performed By: #### C MP, CBC, ETOH #### [place] [address] [place] WBC,Urine 1-2 Normal 0-4 [facility] Comment on above: Order Comment: Name Collection Type:: Clean-Voided Midstream Performed By: #### C MP, CBC, ETOH #### [place] [address] [place] Drug Screen,Urineon 01-14-20 24 Amphetamine Screen,Urine Negative Normal Negative [facility] Comment on above: Performed By: #### C MP, CBC, ETOH #### [address] Barbiturate Screen,Urine Negative Normal Negative [facility] Comment on above: Performed By: #### C MP, CBC, ETOH #### [place] [address] [place] Benzodiazepines Screen,Urine Negative Normal Negative [facility] Comment on above: Performed By: #### C MP, CBC, ETOH #### [address] Cannabinoid Screen,Urine Negative Normal Negative [facility] Comment on above: Result Comment: Thes e are unconfirmed results and should not be used for legal purposes. Drug Cut-Off Concentration: AMPH 1000 ng/mL DALLAS 200 ng/mL DAVID 200 ng/mL COCM 300 ng/mL OP 300 ng/mL PCP 25 ng/mL THC 20 ng/mL PERFORMED BY: [place] [address] PATHOLOGIST PROJECT LEAD OSMEL BLUE M.D. Performed By: #### C MP, CBC, ETOH #### [address] Cocaine Screen,Urine Negative Normal Negative [facility] Comment on above: Performed By: #### C MP, CBC, ETOH #### [facility] [address] Opiate Screen,Urine Negative Normal Negative [facility] Comment on above: Performed By: #### C MP, CBC, ETOH #### [facility] [address] Phencyclidine Screen,Urine Negative Normal Negative [facility] Comment on above: Performed By: #### C MP, CBC, ETOH #### [facility] [address] ECG 12 lead ECGon 01-14-2024 ECG 12 lead ECG [facility] Main [place] [address] [place] [address] Electrocardiograph Report Signed Patient: Shikha Loera MR#: [id number] : 1985 Acct:[id number] Age/Sex: 38 / F ADM Date: 01/15/24 Loc: Room: [address] [place] [address] Type: ADM IN Attending Dr: Jack Kwon [...] : 450 ms Sinus tachycardia with short RI Otherwise normal ECG When compared with ECG of 14-Feb-2015 09:02, RI interval has decreased Vent. rate has increased by 73 bpm Confirmed by LILIANA MARINA DO ([id number]) on 01/15/2024 4:02:38 PM Referred By: Electronically Signed By: LILIANA MARINA DO Transcribed By: MUS Signed By Liliana Marina DO 01/14 1602 Normal [facility] Epithelial cells.squamous [# /area] in Urine sediment by Automated countOrdered By: Libby Kerr on 01-14-2024 Epithelial cells.squamous Auto (Urine sed) [#/Area] 3-4 [HPF] High 0-2 [facility] Erythrocyte distribution wid th [Ratio] by Automated countOrdered By: Libby Kerr on 01-14-2024 Erythrocyte distribution width (RBC) [Ratio] 13.5 % Normal 11.9-15.3 [facility] Comment on above: Performed By: #### C MP, CBC, ETOH #### [address] Erythrocytes [#/area] in Uri ne sediment by Automated countOrdered By: Libby Kerr on 01-14-2024 RBC Auto (Urine sed) [#/Area] 1-2 [HPF] 0-4 [facility] Erythrocytes [#/volume] in B lood by Automated countOrdered By: Libby Kerr on 01-14-2024 RBC (Bld) [#/Vol] 4.73 10*6/uL Normal 3.60-5.00 [facility] Comment on above: Performed By: #### C MP, CBC, ETOH #### [facility] [address] [place] [address] [place] Ethanol [Mass/volume] in Ser um or PlasmaOrdered By: Libby Kerr on 01-14-2024 Ethanol [Mass/Vol] 456 mg/dL Normal [facility] Comment on above: Performed By: #### C MP, CBC, ETOH #### [address] Ethanol [Mass/Vol] 0.456 % [facility] Ethyl Alcohol Profileon Percent Ethanol 0.456 % Normal [facility] Comment on above: Result Comment: PERF ORMED BY: [place] [address] PATHOLOGIST PROJECT LEAD OSMEL BLUE M.D. Performed By: #### C MP, CBC, ETOH #### [facility] [address] [place] [address] [place] Glucose [Mass/volume] in Ser um or PlasmaOrdered By: Libby Krer on 01-14-2024 Glucose [Mass/Vol] 107 mg/dL High 70-100 [facility] Comment on above: ADA recommended refe rence rangeRandom Glucose Reference Range is dependent on time and content of last meal. Glucose of more than 200 mg/dL in a nonstressed, ambulatory subject supports the diagnosis of Diabetes Mellitus. Result Comment: Mobile om Glucose Reference Range is dependent on time and content of last meal. Glucose of more than 200 mg/dL in a nonstressed, ambulatory subject supports the diagnosis of Diabetes Mellitus. ADA recommended reference range Performed By: #### C MP, CBC, ETOH #### [address] Glucose [Mass/volume] in Uri ne by Test stripOrdered By: Libby Kerr on 01-14-2024 Glucose Test strip (U) [Mass/Vol] Normal mg/dL Normal [facility] HCG ( test) IA.rapi d Ql (U)Ordered By: Libby Kerr on 01-14-2024 HCG ( test) Ql (U) Negative [facility] HCG,Urineon 01-14-2024 Beta HCG ( test) Ql (U) Negative Normal [facility] Comment on above: Order Comment: Name Collection Type:: Clean-Voided Midstream Result Comment: PERF ORMED BY: [place] [address] PATHOLOGIST PROJECT LEAD OSMEL BLUE M.D. Performed By: #### C MP, CBC, ETOH #### [address] Hematocrit [Volume Fraction] of Blood by Automated countOrdered By: Libby Kerr on 01-14-2024 Hematocrit (Bld) [Volume fraction] 43.3 % Normal 34.0-46.4 [facility] Comment on above: Performed By: #### C MP, CBC, ETOH #### [address] Hemoglobin Test strip Ql (U) Ordered By: Libby Kerr on 01-14-2024 Hemoglobin Ql (U) Negative Negative [facility] Hemoglobin [Mass/volume] in BloodOrdered By: Libby Kerr on 01-14-2024 Hemoglobin (Bld) [Mass/Vol] 15.1 g/dL Normal 11.8-15.4 [facility] Comment on above: Performed By: #### C MP, CBC, ETOH #### [facility] [address] [place] [address] [place] Hyaline casts [#/area] in Ur ine sediment by Automated countOrdered By: Libby Kerr on 01-14-2024 Hyaline casts Auto (Urine sed) [#/Area] 0-8 [LPF] 0-8 [facility] Ketones [Presence] in Urine by Test stripOrdered By: Libby Kerr on 01-14-2024 Ketones Ql (U) Negative Normal Negative [facility] Comment on above: Order Comment: Name Collection Type:: Clean-Voided Midstream Performed By: #### C MP, CBC, ETOH #### [facility] [address] [place] [address] [place] Leukocyte esterase [Presence ] in Urine by Test stripOrdered By: Libby Kerr on 01-14-2024 Leukocyte esterase Test strip Ql (U) Negative Normal Negative [facility] Comment on above: Order Comment: Name Collection Type:: Clean-Voided Midstream Performed By: #### C MP, CBC, ETOH #### [facility] [address] [place] [address] [place] Leukocytes [#/area] in Urine sediment by Automated countOrdered By: Libby Kerr on 01-14-2024 WBC Auto (Urine sed) [#/Area] 1-2 [HPF] 0-4 [facility] Leukocytes [#/volume] correc rob for nucleated erythrocytes in Blood by Automated counOrdered By: Libby Kerr on 01-14-2024 WBC corrected for nucl RBC Auto (Bld) [#/Vol] 4.8 10*3/uL 3.8-11.6 [facility] Leukocytes [#/volume] in Blo od by Automated countOrdered By: Libby Kerr on 01-14-2024 WBC (Bld) [#/Vol] 4.8 10*3/uL Normal 3.8-11.6 [facility] Comment on above: Performed By: #### C MP, CBC, ETOH #### [address] Lymphocytes [#/volume] in Bl ood by Automated countOrdered By: Libby Kerr on 01-14-2024 Lymphocytes (Bld) [#/Vol] 2.4 10*3/uL Normal 1.00-4.8 [facility] Comment on above: Performed By: #### C MP, CBC, ETOH #### [address] Lymphocytes/100 leukocytes i n Blood by Automated countOrdered By: Libby Kerr on 01-14-2024 Lymphocytes/100 WBC (Bld) 49.0 % Normal . [facility] Comment on above: Performed By: #### C MP, CBC, ETOH #### [address] MCH [Entitic mass] by Automa rob countOrdered By: Libby Kerr on 01-14-2024 MCH (RBC) [Entitic mass] 32.0 pg Normal 24.7-34.3 [facility] Comment on above: Performed By: #### C MP, CBC, ETOH #### [address] MCHC Auto (RBC) [Mass/Vol]Or dered By: Libby Kerr on 01-14-2024 MCHC (RBC) [Mass/Vol] 35.0 g/dL 32.0-35.0 [facility] MCV [Entitic volume] by Auto mated countOrdered By: Libby Kerr on 01-14-2024 MCV (RBC) [Entitic vol] 91.4 fL Normal 80-100 [facility] Comment on above: Performed By: #### C MP, CBC, ETOH #### [address] Monocyte distribution width [Entitic volume] in Blood by AutomatedOrdered By: Libby Kerr on 01-14-2024 Monocyte distribution width Auto (Bld) [Entitic vol] 17.74 % 0.00-20.00 [facility] Comment on above: For adults in ED, MD W > 20.0 may be associated with a higher risk of sepsis during the first 12 hrs of hospital admission Neutrophils [#/volume] in Bl ood by Automated countOrdered By: Libby Kerr on 01-14-2024 Neutrophils (Bld) [#/Vol] 2.2 10*3/uL Normal 1.8-7.7 [facility] Comment on above: Performed By: #### C MP, CBC, ETOH #### [facility] [address] Nitrite Test strip Ql (U)Ord ered By: Libby Kerr on 01-14-2024 Nitrite Ql (U) Negative Negative [facility] No Panel InformationOrdered By: Libby Kerr on 01-14-2024 Estimated GFR (CKD-EPI) > 60.0 mL/Min [facility] Creatinine Clearance (Chem N/A [facility] Nucleated erythrocytes [Pres ence] in Blood by Automated countOrdered By: Libby Kerr on 01-14-2024 Nucleated RBC Auto Ql (Bld) 0.1 /100{WBC} 0-0.5 [facility] Opiates [Presence] in Urine by Screen methodOrdered By: Libby Kerr on 01-14-2024 Opiates Screen Ql (U) Negative Negative [facility] Phencyclidine Screen Ql (U)O rdered By: Libby Kerr on 01-14-2024 Phencyclidine Ql (U) Negative Negative [facility] Platelet mean volume [Entiti c volume] in Blood by Automated countOrdered By: Libby Kerr on 01-14-2024 Platelet mean volume (Bld) [Entitic vol] 7.5 fL Normal 6.3-10.7 [facility] Comment on above: Performed By: #### C MP, CBC, ETOH #### [facility] [address] Platelets [#/volume] in Bloo d by Automated countOrdered By: Libby Kerr on 01-14-2024 Platelets (Bld) [#/Vol] 192 10*3/uL Normal 150-450 [facility] Comment on above: Performed By: #### C MP, CBC, ETOH #### [facility] [address] [place] [address] [place] Potassium [Moles/volume] in Serum or PlasmaOrdered By: Libby Kerr on 01-14-2024 Potassium [Moles/Vol] 3.6 mmol/L Normal 3.5-5.1 [facility] Comment on above: Performed By: #### C MP, CBC, ETOH #### [place] [address] [place] Protein [Mass/volume] in Ser um or PlasmaOrdered By: Libby Kerr on 01-14-2024 Protein [Mass/Vol] 8.2 g/dL Normal 6.4-8.9 [facility] Comment on above: Performed By: #### C MP, CBC, ETOH #### [place] [address] [place] Protein [Mass/volume] in Uri ne by Test stripOrdered By: Libby Kerr on 01-14-2024 Protein (U) [Mass/Vol] 20 mg/dL High Negative [facility] Comment on above: Order Comment: Name Collection Type:: Clean-Voided Midstream Performed By: #### C MP, CBC, ETOH #### [address] Serum globulin measurement b y calculation (mass/volume)Ordered By: Libby Kerr on 01-14-2024 Globulin (S) [Mass/Vol] 3.6 g/dL [facility] Comment on above: Performed By: #### C MP, CBC, ETOH #### [address] Serum or plasma albumin/glob ulin mass ratioOrdered By: Libby Kerr on 01-14-2024 Albumin/Globulin [Mass ratio] 1.3 {ratio} [facility] Comment on above: Performed By: #### C MP, CBC, ETOH #### [address] Serum or plasma anion gap de terminationOrdered By: Libby Kerr on 01-14-2024 Anion gap [Moles/Vol] 21.1 mmol/L High 6.0-15.0 [facility] Comment on above: Performed By: #### C MP, CBC, ETOH #### [facility] [address] Sodium [Moles/volume] in Ser um or PlasmaOrdered By: Libby Kerr on 01-14-2024 Sodium [Moles/Vol] 143 mmol/L Normal 136-145 [facility] Comment on above: Performed By: #### C MP, CBC, ETOH #### [facility] [address] [place] [address] Specific gravity Test strip (U) [Rel density]Ordered By: Libby Kerr on 01-14-2024 Specific gravity (U) [Rel density] 1.005 1.001-1.03 0 [facility] Urea nitrogen [Mass/volume] in Serum or PlasmaOrdered By: Libby Kerr on 01-14-2024 Urea nitrogen [Mass/Vol] 3 mg/dL Low 7-25 [facility] Comment on above: Performed By: #### C MP, CBC, ETOH #### [facility] [address] [place] [address] Urine appearanceOrdered By: Libby Kerr on 01-14-2024 Appearance (U) Cloudy Critically abnormal Clear [facility] Comment on above: Order Comment: Name Collection Type:: Clean-Voided Midstream Performed By: #### C MP, CBC, ETOH #### [address] Urobilinogen Test strip (U) [Mass/Vol]Ordered By: Libby Kerr on 01-14-2024 Urobilinogen (U) [Mass/Vol] Normal mg/dL Normal [facility] pH of Urine by Test stripOrd ered By: Libby Kerr on 01-14-2024 pH (U) 5.5 [pH] Normal 5.0-9.0 [facility] Comment on above: Order Comment: Name Collection Type:: Clean-Voided Midstream Performed By: #### C MP, CBC, ETOH #### [facility] [address] [place] [address] [place] URINE CULTURE, ROUTINEon Bacteria identified Cx Nom (U) Urine Culture, Routine [facility] Bacteria identified Cx Nom (U) Mixed urogenital maricel [facility] Bacteria identified Cx Nom (U) Less than 10,000 colonies/mL [facility] Bacteria identified Cx Nom (U) [facility]formed at: [facility] Bacteria identified Cx Nom (U) [address] [place], [place] [id number] [facility] Bacteria identified Cx Nom (U) Sales Agent Insurance: Torsten Vidal PhD, Phone: [phone] [facility] Alanine aminotransferase [En zymatic activity/volume] in Serum or PlasmaOrdered By: Avery Blanca on 08-14-2023 ALT [Catalytic activity/Vol] 29 U/L Normal 7-52 [facility] Comment on above: Order Comment: Qian brooks for Exam Benign essential hypertension Performed By: #### T SH3 wRFLX, LIPID, CBC, CMP #### [facility] [address] [place] [address] [place] Albumin [Mass/volume] in Ser um or Plasma by Bromocresol green (BCG) dye binding methoOrdered By: Avery Blanca on 08-14-2023 Albumin BCG dye [Mass/Vol] 4.8 g/dL 3.5-5.7 [facility] Alkaline phosphatase [Enzyma tic activity/volume] in Serum or PlasmaOrdered By: Avery Blanca on 08-14-2023 ALP [Catalytic activity/Vol] 82 U/L Normal 34-104 [facility] Comment on above: Order Comment: Reaso n for Exam Benign essential hypertension Performed By: #### T SH3 wRFLX, LIPID, CBC, CMP #### [facility] [address] [place] [address] [place] Aspartate aminotransferase [ Enzymatic activity/volume] in Serum or PlasmaOrdered By: Avery Blanca on 08-14-2023 AST [Catalytic activity/Vol] 78 U/L High 13-39 [facility] Comment on above: Order Comment: Reaso n for Exam Benign essential hypertension Performed By: #### T SH3 wRFLX, LIPID, CBC, CMP #### [facility] [address] [place] [address] Automated basophil %Ordered By: Avery Blanca on 08-14-2023 Basophils/100 WBC (Bld) 1.9 % Normal . [facility] Comment on above: Order Comment: Reaso n for Exam Benign essential hypertension Performed By: #### T SH3 wRFLX, LIPID, CBC, CMP #### [address] Automated basophil countOrde red By: Avery Blanca on 08-14-2023 Basophils (Bld) [#/Vol] 0.1 10*3/uL Normal 0.0-0.2 [facility] Comment on above: Order Comment: Reaso n for Exam Benign essential hypertension Result Comment: PERF ORMED BY: [place] [address] PATHOLOGIST PROJECT LEAD OSMEL BLUE M.D. Performed By: #### T SH3 wRFLX, LIPID, CBC, CMP #### [address] Automated blood monocyte cou ntOrdered By: Avery Blanca on 08-14-2023 Monocytes (Bld) [#/Vol] 0.4 10*3/uL Normal 0.0-0.8 [facility] Comment on above: Order Comment: Reaso n for Exam Benign essential hypertension Performed By: #### T SH3 wRFLX, LIPID, CBC, CMP #### [facility] [address] [place] [address] Automated eosinophil %Ordere d By: Avery Blanca on 08-14-2023 Eosinophils/100 WBC (Bld) 1.0 % Normal . [facility] Comment on above: Order Comment: Reaso n for Exam Benign essential hypertension Performed By: #### T SH3 wRFLX, LIPID, CBC, CMP #### [facility] [address] [place] [address] Automated eosinophil countOr dered By: Avery Blanca on 08-14-2023 Eosinophils (Bld) [#/Vol] 0.0 10*3/uL Normal 0.0-0.45 [facility] Comment on above: Order Comment: Reaso n for Exam Benign essential hypertension Performed By: #### T SH3 wRFLX, LIPID, CBC, CMP #### [facility] [address] [place] [address] [place] Automated monocyte %Ordered By: Avery Blanca on 08-14-2023 Monocytes/100 WBC (Bld) 11.5 % Normal . [facility] Comment on above: Order Comment: Reaso n for Exam Benign essential hypertension Performed By: #### T SH3 wRFLX, LIPID, CBC, CMP #### [facility] [address] Automated neutrophil %Ordere d By: Avery Blanca on 08-14-2023 Neutrophils/100 WBC (Bld) 57.8 % Normal . [facility] Comment on above: Order Comment: Reaso n for Exam Benign essential hypertension Performed By: #### T SH3 wRFLX, LIPID, CBC, CMP #### [facility] [address] [place] [address] [place] Bilirubin.total [Mass/volume ] in Serum or PlasmaOrdered By: Avery Blanca on 08-14-2023 Bilirubin [Mass/Vol] 0.5 mg/dL Normal 0.3-1.0 [facility] Comment on above: Order Comment: Reaso n for Exam Benign essential hypertension Performed By: #### T SH3 wRFLX, LIPID, CBC, CMP #### [facility] [address] [place] [address] [place] Calcium [Mass/volume] in Ser um or PlasmaOrdered By: Avery Blanca on 08-14-2023 Calcium [Mass/Vol] 9.6 mg/dL Normal 8.6-10.3 [facility] Comment on above: Order Comment: Reaso n for Exam Benign essential hypertension Performed By: #### T SH3 wRFLX, LIPID, CBC, CMP #### [facility] [address] [place] [address] [place] Carbon dioxide, total [Moles /volume] in Serum or PlasmaOrdered By: Avery Blanca on 08-14-2023 CO2 [Moles/Vol] 24.7 mmol/L Normal 21.0-31.0 [facility] Comment on above: Order Comment: Reaso n for Exam Benign essential hypertension Performed By: #### T SH3 wRFLX, LIPID, CBC, CMP #### [facility] [address] [place] [id number] [place] Chloride [Moles/volume] in S ben or PlasmaOrdered By: Avery Blanca on 08-14-2023 Chloride [Moles/Vol] 95 mmol/L Low 98-107 [facility] Comment on above: Order Comment: Reaso n for Exam Benign essential hypertension Performed By: #### T SH3 wRFLX, LIPID, CBC, CMP #### [facility] [address] [place] [address] [place] Cholesterol [Mass/volume] in Serum or PlasmaOrdered By: Avery Blanca on 08-14-2023 Cholesterol [Mass/Vol] 333 mg/dL High 140-200 [facility] Comment on above: Chol less than 200 m g/dl low riskChol 201-239 mg/dl borderline riskChol 240 mg/dl and greater high risk Order Comment: Reaso n for Exam Benign essential hypertension Result Comment: Chol less than 200 mg/dl low risk Chol 201-239 mg/dl borderline risk Chol 240 mg/dl and greater high risk Performed By: #### T SH3 wRFLX, LIPID, CBC, CMP #### [facility] [address] [place] [address] [place] Cholesterol in LDL Calc [Mas s/Vol]Ordered By: Avery Blanca on 08-14-2023 Cholesterol in LDL [Mass/Vol] 181 mg/dL 0-100 [facility] Comment on above: LDL ATP III CLASSIFI CATIONLDL less than 100 mg/dL OptimalLDL 100-129 mg/dL Near or above optimalLDL 130-159 mg/dL Borderline highLDL 160-189 mg/dL HighLDL greater than 189 mg/dL Very high Cholesterol in VLDL Calc [Ma ss/Vol]Ordered By: Avery Blanca on 08-14-2023 Cholesterol in VLDL [Mass/Vol] 22 mg/dL [facility] Complete Blood Count Auto Di ffon 08-14-2023 Mean Corpuscular HGB Conc 34.2 g/dL Normal 32.0-35.0 [facility] Comment on above: Order Comment: Reaso n for Exam Benign essential hypertension Performed By: #### T SH3 wRFLX, LIPID, CBC, CMP #### [address] NRBC% 0.3 /100{WBC} Normal 0-0.5 [facility] Comment on above: Order Comment: Reaso n for Exam Benign essential hypertension Performed By: #### T SH3 wRFLX, LIPID, CBC, CMP #### [address] Comprehensive Metabolic Pane mike 08-14-2023 Albumin [Mass/Vol] 4.8 g/dL Normal 3.5-5.7 [facility] Comment on above: Order Comment: Reaso n for Exam Benign essential hypertension Performed By: #### T SH3 wRFLX, LIPID, CBC, CMP #### [address] GFR/1.73 sq M.predicted MDRD (S/P/Bld) [Vol rate/Area] mL/min/{1.73_m2} Normal [facility] Comment on above: Order Comment: Reaso n for Exam Benign essential hypertension Performed By: #### T SH3 wRFLX, LIPID, CBC, CMP #### [address] Creatinine [Mass/volume] in Serum or PlasmaOrdered By: Avery Blanca on 08-14-2023 Creatinine [Mass/Vol] 0.48 mg/dL Low 0.60-1.20 [facility] Comment on above: Order Comment: Reaso n for Exam Benign essential hypertension Performed By: #### T SH3 wRFLX, LIPID, CBC, CMP #### [facility] [address] [place] [address] Erythrocyte distribution wid th [Ratio] by Automated countOrdered By: Avery Blanca on 08-14-2023 Erythrocyte distribution width (RBC) [Ratio] 14.2 % Normal 11.9-15.3 [facility] Comment on above: Order Comment: Reaso n for Exam Benign essential hypertension Performed By: #### T SH3 wRFLX, LIPID, CBC, CMP #### [facility] [address] [place] [address] [place] Erythrocytes [#/volume] in B lood by Automated countOrdered By: Avery Blanca on 08-14-2023 RBC (Bld) [#/Vol] 4.03 10*6/uL Normal 3.60-5.00 [facility] Comment on above: Order Comment: Reaso n for Exam Benign essential hypertension Performed By: #### T SH3 wRFLX, LIPID, CBC, CMP #### [facility] [address] [place] [address] [place] Glucose [Mass/volume] in Ser um or PlasmaOrdered By: Avery Blanca on 08-14-2023 Glucose [Mass/Vol] 102 mg/dL High 70-100 [facility] Comment on above: ADA recommended refe rence rangeRandom Glucose Reference Range is dependent on time and content of last meal. Glucose of more than 200 mg/dL in a nonstressed, ambulatory subject supports the diagnosis of Diabetes Mellitus. Order Comment: Reaso n for Exam Benign essential hypertension Result Comment: Mobile om Glucose Reference Range is dependent on time and content of last meal. Glucose of more than 200 mg/dL in a nonstressed, ambulatory subject supports the diagnosis of Diabetes Mellitus. ADA recommended reference range Performed By: #### T SH3 wRFLX, LIPID, CBC, CMP #### [facility] [address] [place] [address] [place] Hematocrit [Volume Fraction] of Blood by Automated countOrdered By: Avery Blanca on 08-14-2023 Hematocrit (Bld) [Volume fraction] 39.2 % Normal 34.0-46.4 [facility] Comment on above: Order Comment: Reaso n for Exam Benign essential hypertension Performed By: #### T SH3 wRFLX, LIPID, CBC, CMP #### [facility] [address] [place] [address] [place] Hemoglobin [Mass/volume] in BloodOrdered By: Avery Blanca on 08-14-2023 Hemoglobin (Bld) [Mass/Vol] 13.4 g/dL Normal 11.8-15.4 [facility] Comment on above: Order Comment: Reaso n for Exam Benign essential hypertension Performed By: #### T SH3 wRFLX, LIPID, CBC, CMP #### [facility] [address] Leukocytes [#/volume] correc rob for nucleated erythrocytes in Blood by Automated counOrdered By: Avery Blanca on 08-14-2023 WBC corrected for nucl RBC Auto (Bld) [#/Vol] 3.8 10*3/uL 3.8-11.6 [facility] Leukocytes [#/volume] in Blo od by Automated countOrdered By: Avery Blanca on 08-14-2023 WBC (Bld) [#/Vol] 3.8 10*3/uL Normal 3.8-11.6 [facility] Comment on above: Order Comment: Reaso n for Exam Benign essential hypertension Performed By: #### T SH3 wRFLX, LIPID, CBC, CMP #### [facility] [address] Lipid Panelon 08-14-2023 LDL Cholesterol,Calculated 181 mg/dL High 0-100 [facility] Comment on above: Order Comment: Reaso n for Exam Benign essential hypertension Result Comment: LDL ATP III CLASSIFICATION LDL less than 100 mg/dL Optimal LDL 100-129 mg/dL Near or above optimal LDL 130-159 mg/dL Borderline high LDL 160-189 mg/dL High LDL greater than 189 mg/dL Very high Performed By: #### T SH3 wRFLX, LIPID, CBC, CMP #### [facility] [address] Triglyceride w/Reflex 111 mg/dL Normal 0-149 [facility] Comment on above: Order [...] T SH3 wRFLX, LIPID, CBC, CMP #### [facility] [address] [place] [id number] [facility] VLDL CHOLESTEROL 22 mg/dL Normal [facility] Comment on above: Order Comment: Reaso n for Exam Benign essential hypertension Performed By: #### T SH3 wRFLX, LIPID, CBC, CMP #### [facility] [address] [place] [address] Lymphocytes [#/volume] in Bl ood by Automated countOrdered By: Avery Blanca on 08-14-2023 Lymphocytes (Bld) [#/Vol] 1.1 10*3/uL Normal 1.00-4.8 [facility] Comment on above: Order Comment: Reaso n for Exam Benign essential hypertension Performed By: #### T SH3 wRFLX, LIPID, CBC, CMP #### [facility] [address] [place] [address] Lymphocytes/100 leukocytes i n Blood by Automated countOrdered By: Avery Blanca on 08-14-2023 Lymphocytes/100 WBC (Bld) 27.8 % Normal . [facility] Comment on above: Order Comment: Reaso n for Exam Benign essential hypertension Performed By: #### T SH3 wRFLX, LIPID, CBC, CMP #### [facility] [address] [place] [address] MCH [Entitic mass] by Automa rob countOrdered By: Avery Blanca on 08-14-2023 MCH (RBC) [Entitic mass] 33.3 pg Normal 24.7-34.3 [facility] Comment on above: Order Comment: Reaso n for Exam Benign essential hypertension Performed By: #### T SH3 wRFLX, LIPID, CBC, CMP #### [facility] [address] [place] [address] MCHC Auto (RBC) [Mass/Vol]Or dered By: Avery Blanca on 08-14-2023 MCHC (RBC) [Mass/Vol] 34.2 g/dL 32.0-35.0 [facility] MCV [Entitic volume] by Auto mated countOrdered By: Avery Blanca on 08-14-2023 MCV (RBC) [Entitic vol] 97.1 fL Normal 80-100 [facility] Comment on above: Order Comment: Reaso n for Exam Benign essential hypertension Performed By: #### T SH3 wRFLX, LIPID, CBC, CMP #### [facility] [address] Neutrophils [#/volume] in Bl ood by Automated countOrdered By: Avery Blanca on 08-14-2023 Neutrophils (Bld) [#/Vol] 2.2 10*3/uL Normal 1.8-7.7 [facility] Comment on above: Order Comment: Reaso n for Exam Benign essential hypertension Performed By: #### T SH3 wRFLX, LIPID, CBC, CMP #### [facility] [address] No Panel InformationOrdered By: Avery Blanca on 08-14-2023 Estimated GFR (CKD-EPI) > 60.0 mL/Min [facility] Creatinine Clearance (Chem N/A [facility] Nucleated erythrocytes [Pres ence] in Blood by Automated countOrdered By: Avery Blanca on 08-14-2023 Nucleated RBC Auto Ql (Bld) 0.3 /100{WBC} 0-0.5 [facility] Platelet mean volume [Entiti c volume] in Blood by Automated countOrdered By: Avery Blanca on 08-14-2023 Platelet mean volume (Bld) [Entitic vol] 7.1 fL Normal 6.3-10.7 [facility] Comment on above: Order Comment: Reaso n for Exam Benign essential hypertension Performed By: #### T SH3 wRFLX, LIPID, CBC, CMP #### [facility] [address] [place] [address] Platelets [#/volume] in Bloo d by Automated countOrdered By: Avery Blanca on 08-14-2023 Platelets (Bld) [#/Vol] 201 10*3/uL Normal 150-450 [facility] Comment on above: Order Comment: Reaso n for Exam Benign essential hypertension Performed By: #### T SH3 wRFLX, LIPID, CBC, CMP #### [facility] [address] [place] [address] [place] Potassium [Moles/volume] in Serum or PlasmaOrdered By: Avery Blanca on 08-14-2023 Potassium [Moles/Vol] 4.2 mmol/L Normal 3.5-5.1 [facility] Comment on above: Order Comment: Reaso n for Exam Benign essential hypertension Performed By: #### T SH3 wRFLX, LIPID, CBC, CMP #### [facility] [address] Protein [Mass/volume] in Ser um or PlasmaOrdered By: Avery Blanca on 08-14-2023 Protein [Mass/Vol] 7.3 g/dL Normal 6.4-8.9 [facility] Comment on above: Order Comment: Reaso n for Exam Benign essential hypertension Performed By: #### T SH3 wRFLX, LIPID, CBC, CMP #### [facility] [address] Serum globulin measurement b y calculation (mass/volume)Ordered By: Avery Blanca on 08-14-2023 Globulin (S) [Mass/Vol] 2.5 g/dL Normal [facility] Comment on above: Order Comment: Reaso n for Exam Benign essential hypertension Performed By: #### T SH3 wRFLX, LIPID, CBC, CMP #### [facility] [address] [place] [address] Serum or plasma albumin/glob ulin mass ratioOrdered By: Avery Blanca on 08-14-2023 Albumin/Globulin [Mass ratio] 1.9 {ratio} [facility] Comment on above: Order Comment: Reaso n for Exam Benign essential hypertension Performed By: #### T SH3 wRFLX, LIPID, CBC, CMP #### [facility] [address] [place] [address] Serum or plasma anion gap de terminationOrdered By: Avery Blanca on 08-14-2023 Anion gap [Moles/Vol] 14.5 mmol/L Normal 6.0-15.0 [facility] Comment on above: Order Comment: Reaso n for Exam Benign essential hypertension Performed By: #### T SH3 wRFLX, LIPID, CBC, CMP #### [facility] [address] [place] [address] Serum or plasma high density lipoprotein (HDL) cholesterol measurementOrdered By: Avery Blanca on 08-14-2023 Cholesterol in HDL [Mass/Vol] 130 mg/dL High 23-92 [facility] Comment on above: HDL CHOL ATP-III CLA SSIFICATION Cardiovascular RiskHDL > or equal to 60 mg/dL LOWHDL < 40 mg/dL HIGH Order Comment: Reaso n for Exam Benign essential hypertension Result Comment: HDL CHOL ATP-III CLASSIFICATION Cardiovascular Risk HDL > or equal to 60 mg/dL LOW HDL < 40 mg/dL HIGH Performed By: #### T SH3 wRFLX, LIPID, CBC, CMP #### [facility] [address] [place] [address] Serum or plasma total choles terol/high density lipoprotein (HDL) cholesterol mass ratOrdered By: Avery Blanca on 08-14-2023 Cholesterol.total/Chol esterol in HDL [Mass ratio] 2.6 {ratio} Normal <5.0 [facility] Comment on above: Order Comment: Reaso n for Exam Benign essential hypertension Performed By: #### T SH3 wRFLX, LIPID, CBC, CMP #### [facility] [address] [place] [address] Sodium [Moles/volume] in Ser um or PlasmaOrdered By: Avery Blanca on 08-14-2023 Sodium [Moles/Vol] 130 mmol/L Low 136-145 [facility] Comment on above: Order Comment: Reaso n for Exam Benign essential hypertension Performed By: #### T SH3 wRFLX, LIPID, CBC, CMP #### [facility] [address] [place] [address] Thyroid Stim Hormone w/Rflxo n 08-14-2023 Thyroid Stim Hormone w/Rflx 1.86 u[iU]/mL Normal 0.45-5.33 [facility] Comment on above: Order Comment: Reaso n for Exam Benign essential hypertension Result Comment: PERF ORMED BY: [place] [address] PATHOLOGIST PROJECT LEAD OSMEL BLUE M.D. Performed By: #### T SH3 wRFLX, LIPID, CBC, CMP #### [facility] [address] [place] [address] Thyrotropin [Units/volume] i n Serum or PlasmaOrdered By: Avery Blanca on 08-14-2023 TSH Qn 1.86 m[IU]/L 0.45-5.33 [facility] Triglyceride [Mass/volume] i n Serum or PlasmaOrdered By: Avery Blanca on 08-14-2023 Triglyceride [Mass/Vol] 111 mg/dL 0-149 [facility] Comment on above: TRIG ATP III CLASSIF ICATIONTRIG less than 150 mg/dL NormalTRIG 150-199 mg/dL Borderline highTRIG 200-500 mg/dL High TRIG greater than 500 mg/dL Very highStandard traceable to the Center for Disease Conrtrol and Prevention (CDC) test method. Urea nitrogen [Mass/volume] in Serum or PlasmaOrdered By: Avery Blanca on 08-14-2023 Urea nitrogen [Mass/Vol] 5 mg/dL Low 7-25 [facility] Comment on above: Order Comment: Reaso n for Exam Benign essential hypertension Performed By: #### T SH3 wRFLX, LIPID, CBC, CMP #### [facility] [address] HbA1c HPLC (Bld) [Mass fract ion]on 06-14-2023 HbA1c (Bld) [Mass fraction] 4.7 % [facility] No Panel Informationon 06-13 Bedside Glucose 110 [facility] A1C HEMOGLOBINon 03-27-2023 HbA1c (Bld) [Mass fraction] 10.6 % [facility] [employer] Other Glucose - FINGER STICKon Glucose [Mass/Vol] 95 mg/dL [facility] [employer] Other HbA1c (Bld) [Mass fraction]o n 03-27-2023 A1C HEMOGLOBIN [facility] [employer] Other Consent for Treatmenton 10-07 Consent for Treatment [id number]:12 7 Normal [facility] Discharge Instructionson Discharge Instructions [id number]: 127 Normal [facility] ED Clinical Summaryon 2022 ED Clinical Summary (Inserted Image. Jackie ble to display) [place] [address] ED Clinical Summary Person Information Name: SHIKHA LOERA/[place] Age: 37 Years : 1985 Sex: Female Language: Divehi PCP: NONE, XXXX Marital Status: Visit Id: [...] 10/21/2022 08:36:13 10/21/2022 08:36:13 10/21/2022 08:36:13 ADDRESS: [address] [place] [address] [place] [id number] PHYS DOC NOTES: MEDICAL INFORMATION: Prescriptions Given: New Medications [id number], [address] [place] [id number], [phone] cyclobenzaprine (cyclobenzaprine 5 mg Tab) 1 Tablets [...] Continue with No Changes Other Medications acetaminophen-hydrocodone ([place] 325 mg-5 mg oral tablet) 1 Tablets [...] worsening symptoms. DIAGNOSIS: Contusion of rib Normal [facility] ED Note-Physicianon 10-22-19 ED Note-Physician Basic Information [...] pain, # 21 tab(s), Refills(s) 0, Pharmacy: [id number], 167.6, cm, 10/21/22 7:13:00 EDT, Height/Length Dosing, 61.5, kg, 10/21/22 7:13:00 EDT, Weight Dosing lidocaine topical, 1 patch(es), Topical, Daily, 7 EA, Refill(s) 0, apply 12 hours on and 12 hours off daily, [id number], 167.6, cm, 10/21/22 7:13:00 EDT, Height/Length Dosing, 61.5, kg, 10/21/22 7:13:00 EDT, Weight Dosing naproxen, 500 mg = 1 tab(s), Oral, BID, PRN for pain, # 20 tab(s), Refills(s) 0, Pharmacy: [id number], 167.6, cm, 10/21/22 7:13:00 EDT, Height/Length [...] No q (more content not included)... Normal [facility] Comment on above: Result Comment: Elec tronically [...] for lung collapse and pneumonia. ? Medicines. Melh-zgt-ogqmarc or prescription medicines may be given to control pain. ? Injection of a numbing medicine around the nerve near your injury (nerve block). Follow these instructions at home: Medicines ? Take jgck-hbf-mpflywp and prescription medicines only as told by your health care provider. ? Ask your health care provider if the medicine prescribed to you: ? Requires you to avoid driving or using machinery. ? Can cause constipation. You may need to take these actions to prevent or treat constipation: ? Drink enough fluid to keep your urine pale yellow. ? Take tqrr-lfz-sfzobka or prescription medicines. ? Eat foods that [...] Reviewed: 06/30/2020 Elsevier Patient Education ? 2022 [employer] Normal [facility] ED Patient Summaryon 023 ED Patient Summary (Inserted Image. Jackie ble to display) [address] [address] Patient Discharge Instructions Person Information Name: SHIKHA LOERA Age: 37 Years Arrival Date: 10/21/2022 06:56:51 Discharge Diagnosis: Contusion of rib Primary Care Physician: NONE, XXXX Provider Information Primary Provider: Thanh Bal DO Advanced Dog Boarder:None The exam and treatment you received in the Emergency Department were for an urgent problem and are not intended as complete care. It is important that you follow up with a doctor, nurse practitioner, or physician?s customer assistant for ongoing care. If your symptoms [...] opioids can be used to help relieve inzyyzzn-us-xrjczn pain and are often prescribed following a [...] and ab (more content not included)... Normal [facility] XR Ribs Unilat 3 Views Left w/ [...] others may be chronic. No pneumothorax. Normal [facility] AMYLASEon 03-26-2022 Amylase [Catalytic activity/Vol] 20 U/L Critically low 25-115 [facility] Comment on above: Performed By: #### L IPA, NGA, CMP #### [facility] [address] [place] [address] [address] Angela Aguero CBC W MANUAL DIFFon 03-26-20 22 ATYPICAL LYMPH # Normal [facility] Comment on above: Performed By: #### L IPA, NGA, CMP #### [facility] [address] [place] [address] [address] Angela Aguero ATYPICAL LYMPH % Normal [facility] Comment on above: Performed By: #### L IPA, NGA, CMP #### [facility] [address] [place] [address] [address] Angela Aguero BAND # 0.0 103/ul Normal 0.0-0.3 [facility] Comment on above: Performed By: #### L IPA, NGA, CMP #### [facility] [address] [place] [address] [address] Angela Aguero BAND % 0 % Normal 0-5 [facility] Comment on above: Performed By: #### L IPA, NGA, CMP #### [facility] [address] [place] [address] [address] Angela Aguero BASOM # 0.07 103/ul Normal 0.00-0.10 [facility] Comment on above: Performed By: #### L IPA NGA, CMP #### [facility] [address] [place] [address] [address] Angela Aguero BASOM % 1.0 % Normal 0.2-2.0 [facility] Comment on above: Performed By: #### L IPA, NGA, CMP #### [facility] [address] [place] [address] Dr. Angela Aguero BLAST # Normal [facility] Comment on above: Performed By: #### L IPA NGA, CMP #### [facility] [address] [place] [address] Dr. Angela Aguero BLAST % Normal [facility] Comment on above: Performed By: #### L IPA NGA, CMP #### [facility] [address] [place] [address] Dr. Angela Aguero CORRECTED WBC Normal 4.0-11.0 [facility] Comment on above: Performed By: #### L IPA, NGA, CMP #### [facility] [address] [place] [address] Dr. Angela Aguero EOS # 0.00 103/ul Normal 0.00-0.70 [facility] Comment on above: Performed By: #### L IPA NGA, CMP #### [facility] [address] [place] [address] Dr. Angela Aguero EOS% 0.0 % Critically low 0.9-7.0 [facility] Comment on above: Performed By: #### L IPA, NGA, CMP #### [facility] [address] [place] [address] Dr. Angela Aguero HCT 42.7 % Normal 36.0-48.0 [facility] Comment on above: Performed By: #### L IPA, NGA, CMP #### [facility] [address] [place] [address] Dr. Angela Aguero HGB 15.0 g/dl Normal 12.0-16.0 [facility] Comment on above: Performed By: #### L IPA, NGA, CMP #### [facility] [address] [place] [address] Dr. Angela Aguero LYMPHM # 0.28 103/ul Critically low 1.20-3.80 [facility] Comment on above: Performed By: #### L IPA, NGA, CMP #### [facility] [address] [place] [address] Dr. Angela Aguero LYMPHM% 4.0 % Critically low 20.5-60.0 [facility] Comment on above: Performed By: #### L IPA, NGA, CMP #### [facility] [address] [place] [address] Dr. Angela Aguero MCH 34.1 pg Critically high 26.7-34.0 [facility] Comment on above: Performed By: #### L IPA, NGA, CMP #### [facility] [address] [place] [address] Dr. Angela Aguero MCHC 35.1 g/dl Normal 29.9-35.2 [facility] Comment on above: Performed By: #### L IPA, NGA, CMP #### [facility] [address] [place] [address] Dr. Angela Aguero MCV 97.0 fL Normal 81.0-99.0 [facility] Comment on above: Performed By: #### L IPA, NGA, CMP #### [facility] [address] [place] [address] Dr. Angela Aguero METAMYELOCYTE # Normal [facility] Comment on above: Performed By: #### L IPA, NGA, CMP #### [facility] [address] [place] [address] Dr. Angela Aguero METAMYELOCYTE % Normal [facility] Comment on above: Performed By: #### L IPA, NGA, CMP #### [facility] [address] [place] [address] Dr. Angela Aguero MONOM# 0.21 103/ul Critically low 0.30-0.80 [facility] Comment on above: Performed By: #### L IPA, NGA, CMP #### [facility] [address] [address] [address] Angela Aguero MONOM% 3.0 % Normal 1.7-12.0 [facility] Comment on above: Performed By: #### L IPA, NGA, CMP #### [facility] [address] [address] [address] Angela Aguero MPV 9.4 fL Critically low 9.5-13.5 [facility] Comment on above: Performed By: #### L IPA, NGA, CMP #### [facility] [address] [address] [address] Angela Aguero MYELOCYTE # Normal [facility] Comment on above: Performed By: #### L IPA, NGA, CMP #### [facility] [address] [place] [address] Dr. Angela Aguero MYELOCYTE % Normal [facility] Comment on above: Performed By: #### L IPA, NGA, CMP #### [facility] [address] [place] [address] Dr. Angela Aguero NRBC Normal [facility] Comment on above: Performed By: #### L IPA, NGA, CMP #### [facility] [address] [address] [address] Angela Aguero PLT 252 103/ul Normal 150-450 [facility] Comment on above: Performed By: #### L IPA, NGA, CMP #### [facility] [address] [address] [address] Angela Aguero RBC 4.40 106/ul Normal 4.20-5.40 [facility] Comment on above: Performed By: #### L IPA, NGA, CMP #### [facility] [address] [place] [address] Dr. Angela Aguero RDW 11.3 % Normal 11.0-15.0 [facility] Comment on above: Performed By: #### L IPA, NGA, CMP #### [facility] [address] [address] [address] Angela Aguero SEG # 6.44 103/ul Normal 1.40-6.50 [facility] Comment on above: Performed By: #### L NGA SMITH, CMP #### [facility] [address] [place] [address] Dr. Angela Aguero SEG % 92.0 % Critically high 43.0-75.0 [facility] Comment on above: Performed By: #### L NGA SMITH, CMP #### [facility] [address] [place] [address] Dr. Angela Aguero WBC 7.0 103/ul Normal 4.0-11.0 [facility] Comment on above: Performed By: #### L NGA SMITH, CMP #### [facility] [address] [place] [address] Dr. Angela Aguero ETHANOL (BLD ALC)on 03-26-20 ALC NOTE NOTE: 80 mg/dl is th e legal limit for a blood alcohol level Normal [facility] Comment on above: Performed By: #### L NGA SMITH, CMP #### [facility] [address] [place] [address] Dr. Angela Aguero Ethanol [Mass/Vol] mg/dL Normal [facility] Comment on above: Performed By: #### L NGA SMITH, CMP #### [facility] [address] [place] [address] Dr. Angela Aguero LIPASEon 03-26-2022 Lipase [Catalytic activity/Vol] 43.0 U/L Critically low 73.0-393.0 [facility] Comment on above: Performed By: #### L NGA SMITH, CMP #### [facility] [address] [place] [address] Dr. Angela Aguero PROF 14(COMP METB)on Albumin [Mass/Vol] 3.9 g/dL Normal 3.4-5.0 [facility] Comment on above: Performed By: #### L NGA SMITH, CMP #### [facility] [address] [place] [address] Dr. Angela Aguero Albumin/Globulin [Mass ratio] 0.9 {ratio} Normal [facility] Comment on above: Performed By: #### L IPA, NGA, CMP #### [facility] [address] [address] [address] Angela Aguero ALP [Catalytic activity/Vol] 129 U/L Critically high 46-116 [facility] Comment on above: Performed By: #### L IPA, NGA, CMP #### [facility] [address] [address] [address] Angela Aguero ALT [Catalytic activity/Vol] 143 U/L Critically high 14-59 [facility] Comment on above: Performed By: #### L IPA, NGA, CMP #### [facility] [address] [address] [address] Angela Aguero Anion gap [Moles/Vol] 16.4 mmol/L Normal [facility] Comment on above: Performed By: #### L IPA, NGA, CMP #### [facility] [address] [address] [address] Angela Aguero AST [Catalytic activity/Vol] 306 U/L Critically high 15-37 [facility] Comment on above: Performed By: #### L IPA, NGA, CMP #### [facility] [address] [address] [address] Angela Aguero Bilirubin [Mass/Vol] 1.7 mg/dL Critically high 0.2-1.0 [facility] Comment on above: Performed By: #### L IPA, NGA, CMP #### [facility] [address] [address] [address] Angela Aguero Calcium [Mass/Vol] 9.4 mg/dL Normal 8.5-10.1 [facility] Comment on above: Performed By: #### L IPA, NGA, CMP #### [facility] [address] [address] [address] Angela Aguero Chloride [Moles/Vol] 99 mmol/L Normal 98-107 [facility] Comment on above: Performed By: #### L IPA, NGA, CMP #### [facility] [address] [address] [address] Angela Aguero CO2 [Moles/Vol] 25.9 mmol/L Normal 21.0-32.0 [facility] Comment on above: Performed By: #### L IPA NGA, CMP #### [facility] [address] [place] [address] Dr. Angela Aguero Creatinine [Mass/Vol] 0.82 mg/dL Normal 0.55-1.02 [facility] Comment on above: Performed By: #### L IPA, NGA, CMP #### [facility] [address] [place] [address] Dr. Angela Aguero EGFR-AF NEW ZEALANDER >60 Normal >=60 [facility] Comment on above: Performed By: #### L IPA, NGA, CMP #### [facility] [address] [place] [address] Dr. Angela Aguero EGFR-NON AF NEW ZEALANDER >60 Normal >=60 [facility] Comment on above: Performed By: #### L IPA NGA, CMP #### [facility] [address] [place] [address] Dr. Angela Aguero Globulin (S) [Mass/Vol] 4.4 g/dL Normal [facility] Comment on above: Performed By: #### L IPA NGA, CMP #### [facility] [address] [place] [address] Dr. Angela Aguero Glucose [Mass/Vol] 207 mg/dL Critically high 74-106 [facility] Comment on above: Performed By: #### L IPA NGA, CMP #### [facility] [address] [place] [address] Dr. Angela Aguero Potassium [Moles/Vol] 3.3 mmol/L Critically low 3.5-5.1 [facility] Comment on above: Performed By: #### L IPA NGA, CMP #### [facility] [address] [place] [address] Dr. Angela Aguero Protein [Mass/Vol] 8.3 g/dL Critically high 6.4-8.2 [facility] Comment on above: Performed By: #### L IPA, NGA, CMP #### [facility] [address] [place] [address] Dr. Angela Aguero Sodium [Moles/Vol] 138 mmol/L Normal 136-145 [facility] Comment on above: Performed By: #### L NGA SMITH, CMP #### [facility] [id number] Angela Aguero Urea nitrogen [Mass/Vol] 5.0 mg/dL Critically low 7.0-18.0 [facility] Comment on above: Performed By: #### L NGA SMITH, CMP #### [facility] [id number] Angela Aguero Urea nitrogen/Creatinine [Mass ratio] 6.1 mg/mg Normal [facility] Comment on above: Performed By: #### L NGA SMITH, CMP #### [facility] [address] [address] [address] Angela Aguero Coding Summary.on 02-06-2022 Coding Summary. CD:[id number] Gh0bW w+PGhlYWQ+PC3DZZFiU20rnQX qbG3TN0xOJW3HVPPLCOPXKJ9J OI3ezLX9VCphH2BkiwKi BpswaAWiVV51MSq6NBR3nQdrC PeneS1eeVQsF1y4AhFdUN05eB 10GRorVSTbNkD4YvLmnisckTX y X6lbBaTmlCUaJic+PHRhYmxlI HdpZHRoPScxMDAlJyBzdHlsZT 2cXm8dTKDuYEFjeJelcRDqLyF j o3ifWOBtHGqdUX0ylYpoQ1Xmx DI1DIXee2x7Ra18yEQ+PHRkIH Y6dWklRJlcw641QhTun8ejQWE 3 rCDiSYffTSX2F54xt3R9VYDjC MYaGRV2hFM1tI0shUuzpvxlF9 FthHXiCjY6HVX6gDRmqM1dbWq n thcyqB7oLdq+Z23DPJ7CITWIA J6MXos2I4FmKsndyOA+PC90YW RrFG28eUBenKFbi1vhtRv1VwC w NMLxFGM2bPngBWwzp7ZyFEJbQ 97loWXfj0C4JDVzyRxajACqVz GgyTG4bC7kOKkzacjig1vnrud n Vretj1gynv57rG48M05gSKysV LVdTHD0BAVdMSDtvCquvc2ujI 9wIi8+PJfof7ayu6kcmJa4VlQ w NYNtsyKvzCfyJCF9a6HtOe22Z 4IaeEimu5NlJoi0ug30jBXuq6 Z6qJK5UBvrTZWtmR8fHWodKoH 6 SGRbHeVnoX44xYWzSPqqXs1db LgsnUviOD8gVLKajtdvXSKmtZ 4zZPOwrHPyxUdnMK1tQNArtqx m x453XoGbHNX3FHXvvZKpH6Gfz X6zUcYlALRcQBUiV3RjsNGbZC rvG023UOxqRkR2FWGgfpEpI9P s DWQkdMuuTnA2g3I5Ys0Fn2Riw ianXXX4PIciBCZqFaYeHmQfOa B3T9DaIwz1ACJmcHddST7rO7D h BFDydzkngvpyfKN8FYJrGKJsq M84rSQnIAnkHx3rh2Y1j410SR YpTVTcnF01Wp6mqAbvYCVbfJM U tX0zwdscg4psamanXlSoGJHbW Qn6TTh1SOHmjKbuAfEiVFB8Ha W2UER6zXIsyO3cqJezpjutbD9 w Oyc+E44roJ3hBKN7ROV3oxfsF SGfmxRtZU95JG01A1JrCdmwvH FibGU+IWHfgbYeeFguWA5eYmA j w0qdl5HwQQzuM6DsPGWyTYmgL fs9IMStRRJ0oUU6tK8lSDSaOA ynz7S0uEN3F5OstyJuku9if7b s ROIbQSkcY29ruKCvt9W8BATef UV5PRJwfEvjRzEywG73Icm+PG QfuXqhv0DyHmpbj4qnu3nvcUq 9 ExIhUFPmeiMnlZnqKYF3r6QrF c33G84nEKzyMAJgAEZqEQXkEC YopYcybs2owN9wMg6+PGNvbCB 3 pOI8fP7dFJJgCnR0LYzzT499N sQjlJYnBoiaf2cdf4gegAi5Jr TrOAPobcZgeNfeVCF2j5AlOg6 8 Z13jJXghAWOpRARmBPXtMOFto Kbqjc6knF0tKx9+BL2zy1ptqb 55mF72bYM+WBDkELX6jFrnDEn w YJXheC9iOLopOmE9PLNyNwDke E20gYWqPZwgQa8paKvplVkfIO 5bTISkyizwt397CvRna9tnTXQ w dTQjWDsfRYE0S63ua4R3YQYgM IZzLOA1dEA0eK2nmNlzzhrygP FfhNywwiRkcTfkPHivIUaeG67 6 IHRvcDsnPlBhdGllbnQgTmFtZ Nq0Y2VrSov1NXZtgEdaAD8ilX RjXPrlJl4hgJzlbFvfRP1kWAX p ybayz749HfSlj5tsAKLyiLLvW QmsOJH7J10sr5Y3DPSfEUXeMR Y6jSI7bK9teJtlakgdjKVduKe g sxCblXetXHfyXSapF536UMVqh PxoBwGeqtBwGEFguCN7GW51WK 28oTMgz2N0gOA4I5JjOODqdxy t xqrghBG1VAHaQVPtsZ43Le8gt StwGf1fOQJwPTP3OQPedZPuI0 WkiS2eRhWxSLMvAEOmV0JrjZN t CAulF230WGmjOgM1CSLvfjUbF 2NkEZNrnIunLsE3e4E4Gy9CL1 B6ID85NY01xHMvl6W9vGL3Y9E h YKNxkzitfxnxrPL8EUClDVZuq W75Em9ucQgjBg6uPWCxOFP0CX PxyAUwN1CfjJ1hEfQnYRDxOBR w U2PjhBDuQAtqY579OXvtWoQ8Z RAsbcUvA2ZxALZolOjeHeC5n7 J5Eh1NRSx0EB57ME53rSIps3I 5 qSO2E2ZlNDTgvnniktnrfEN7T SDqCIJlxF51Gu4mmEimJd4mHI CcMHI5HTNtnFSgC3FoiN9hKoK j JYNkMGXyE3SwrSJxASssM488M QdwOtR7JVRyrcQtT9EnNDMcjG ybSsE2e3K8Gw7NLWLkVM12XTV 5 nTZ4BV52OW57V9FlLsrkzLDjo +PHRhYmxlIHdpZHRoPScxMD OgRbVxcRssYU1xVv1tZHDcSJD v yNpbqZVdEgKql3eaICVtKJjtX X6mfAgfH1OozFO9OGSbp8o7Xa 70U88xJ4ZccMM+OALsqJK4sIO 0 cY9hLtByUnS3UIetM077WkSxy ITiMxgpe4pvo5rwgPs9ArQ3ET HebcMfoEafKUR8e4XzWa33W88 s IHdpZHRoPSIxNSUiIHZhbGlnb a2yoU3iJh4+WVMhdFH7aXW4xR 1jSvGnTiE3VJcaS444KnOfoGP v Nhkkj6jdi9jkvPk7JsNkEEJzd lJdmAujIDV1z4EdVx62U0OffU tno9YaNwi9li97yAIgr1D5yQL 9 L3XbXLLksqedyOXowTbtJA6qL NEhewiqIHCwzV8gCRCyT7b4Sh EgVxE8NSyaY2JndlS4GWOhvBX g IDceBPW3G71jb9K9DOOmQCYrU PN3pAZ1cU8rgVxapuvevPTpgU qlalMfwCquNQofKLbaX261FBN v oFxuQMDegD7qECOapCKaaEiwM X6uSXCdrxejGw5AXJxJSKBHHG qfCK3KTuHEQF10DY31kRJwf9E 5 cFP8G1ZrISQfnkwhihbzlXF3X GJaVPKzaS56vYEyLNkrGu6fu5 M7s355BSJvYCAauZ57Fh0hlMu g XFKslPIQrA6revoaf4fqheeiQ bXiJFCpGVd2ZDn8YGOvbTyoSo UoKPX3JaX2CFF9hDEydR4doXg n xfsyrC7qEup+ZTYfSKjwATd7Z TwvdGQ+PAQiQGY4bVwpWSbeTG CusL7eYOIrD6p9YtMeQxQ9THj u H0OzQLHdmbtdFl88yL7kWyBkV kV7QGimD1SvgrK8MNOjuJJpRN cuNRN7L47pq8H2DEFsORPcQXA 7 uDU3oM0ldBlzwgmofKAucFgjz gFvqSgaOTciBDltW596BILrjU egWjO8DYrwACMuPC84VW85dJD g x6U0qRH7N1AqFSZkkswhpldte LN1FXSpLKBbuH77jLJzUFsuNi 2hg3A2j611YZQjHNBruB53Ms0 u fKnrAFYieQUVpV0apdpsj8ktl ugtNiBsCCBfSIk9TVw6YYJieK jqTrApLFV6PaS6RXH9mHCujG7 h dDofrswmdY1jBkh+RmVtYWxlP U60FH21mYKnn2U7oBM4R1KkQQ KugseltgjldWM5RYLcJUOdnB3 7 jHKhDXyzEz7ru9W9h027GYBiD CZckN56Sc7tnSwkMDBfqLBOeM 7hxgvod7pldkntZnEhXFUsNIk 0 OLg0FRTyvZvvWrLaMDZ8JlM4I AR1pAZktK4hwStrhlopnR8uGr c+DZ1sbrggvtO7YY05UE12R2Y y PjwvdGFibGU+PHRhYmxlIHdpZ XGaAYlfZDRwFcAvyLgvOO0vEe 8tZZUgJYOtxDhidTVcMfBqj9a s SHSvKDzbOA5qwSosQ3SavOQ7D ITdp7z0At62X75tH6OffZJ+PG CsgRX5sSB9vZ5vNdGsHxX4MJp p I849ChVfaLFlIcvlu0cds9tfo Wo1XiQqIQXcvhQutNleRAL9n8 GqWx05U00lNLzxDHRnGMVyYPG i JYVglMnuio9amB5kPa5+PGNvb HG2rSV5dD0qRaRxNwK7ORmxN9 48TvNrjISkNxpzB45bI6VfiRD + OJDlJwz5JOXzoWnsQU7cvSBmA JojMn5eNMS3ZbZxAgOxPRfqA7 FbRMAfpytczqmgxOR2YQUcJNI w kJ38Nd9hnBiwJu2cHDOcRKX9W PZahJVxH6VkyM0eXcBvMBPxHU LfD3QljDRcOSujU173TMqiJaI 7 JIXstqJrU5HuIIJbpSnnWtT8y 1A9Uf9SoDwadUXfTQ4aVoNhRE r0S6IxZdt0CXKutQmvQJ7uxEG k UDwvTb0viJdnvNyhAR5vFNGjv tdjp912YhFzq9keTDEicYIuFD qsLEF5V54sw2L2AZTjMGTpUBM 7 iMA5fL9cdRdqfulurLJyrEnuy pHpuHzkPLenNUceF392MKSnjI tjEaVACda9H1MzAlu8QLQpfKv s OH0vcFShPKarXv9zsFuseQhcF E6yDSNerebgy734MeXxt5wsGR VgtMZgGHqaYWA8I90dp5T5VSC w YIWiZYN1oCI1qM1gjImvcejda GVmdDsgdmVydGljYWwtYWxpZ2 21SNTlaTiiFs4FDso8F8ZwIru 0 VXUzmRxdAY0lcNWkPMydKd9te HsecUxkGN7fMHVowydtl830Bz Kns2joTLTnqHYoKXhtVPD9O90 s v0T8CCQpDJJtSPO0dXI8oM6gf GlnbjogbGVmdDsgdmVydGljYW umFIzaR835OBOgaIdhUdAipZE y OjwvdGQ+CY06tv21V0OcOajcN mo1LUOaMEC0qAP1jQ6pSERtCE tbl6N4xVQ3A3DqooNvjo3hl6z s YXBz (more content not included)... [facility] C Urineon 02-03-2022 Bacteria identified [...] Locations R1: This test was performed at: [facility], [address] [place] [address], [address] , , [facility] Comment on above: Performed By: #### 2 [id number], [id number] ####[place] [address] Auto Diffon 02-02-2022 Basophils/100 WBC (Bld) 0.9 % Normal 0.0-2.0 [facility] Comment on above: Order Comment: Order Added by Discern Expert. Performed By: #### 2 [id number], [id number], 1665005, 5482519, [id number], [id number] ####[address] [place] [address] Basophils/Leukocytes Auto (Bld) [Pure # fraction] 0.1 E9/L Normal 0.0-0.2 [facility] Comment on above: Order Comment: Order Added by Discern Expert. Performed By: #### 2 755176, 0414477, 9513037, 7534318, [id number], [id number] ####[address] [place] [address] Eosinophils/100 WBC (Bld) 0.6 % Normal 0.0-8.0 [facility] Comment on above: Order Comment: Order Added by Discern Expert. Performed By: #### 2 408223, 1453390, 9700661, 0543325, [id number], [id number] ####[address] [address] Eosinophils/Leukocytes Auto (Bld) [Pure # fraction] 0.0 E9/L Normal 0.0-0.5 [facility] Comment on above: Order Comment: Order Added by Discern Expert. Performed By: #### 2 953789, 5840041, 7887338, 1494202, [id number], 3409743 ####[address] [place] [address] Lymphocytes/100 WBC (Bld) 22.1 % Normal 14.0-50.0 [facility] Comment on above: Order Comment: Order Added by Discern Expert. Performed By: #### 2 682686, 4481128, 5783526, 2631568, [id number], 7281529 ####[address] [place] [address] Lymphocytes/Leukocytes Auto (Bld) [Pure # fraction] 1.3 E9/L Normal 1.0-4.0 [facility] Comment on above: Order Comment: Order Added by Discern Expert. Performed By: #### 2 713097, 6564278, 2473634, 9872268, 70481754, 3781677 ####[facility] [address] [place] [address] Monocytes/100 WBC (Bld) 9.5 % Normal 4.0-14.0 [facility] Comment on above: Order Comment: Order Added by Discern Expert. Performed By: #### 2 310708, 8680039, 1121363, 3826599, [id number], 0678484 ####[address] [place] [address] Monocytes/Leukocytes Auto (Bld) [Pure # fraction] 0.6 E9/L Normal 0.2-1.0 [facility] Comment on above: Order Comment: Order Added by Discern Expert. Performed By: #### 2 017027, 1598958, 5494982, 2044084, [id number], 3711781 ####[facility] [address] [place] [address] Neutrophils/100 WBC (Bld) 66.9 % Normal 36.0-75.0 [facility] Comment on above: Order Comment: Order Added by Discern Expert. Performed By: #### 2 075721, 6731909, 7989116, 3723079, 50936089, 9487571 ####[address] [place] [address] Neutrophils/Leukocytes Auto (Bld) [Pure # fraction] 4.0 E9/L Normal 2.0-7.5 [facility] Comment on above: Order Comment: Order Added by Discern Expert. Performed By: #### 2 107371, 5288392, 3293569, 1278709, [id number], [id number] ####[facility] [address] [place] [address] B hCG Qualon 02-02-2022 Beta hCG Ql Negative Normal [facility] Comment on above: Performed By: #### 2 [id number] ####[facility] [address] [place] [address] BMPon 02-02-2022 Anion gap [Moles/Vol] 21 mmol/L High 6-16 [facility] Comment on above: Performed By: #### 2 440673, 0319144, 3945409, 9308556, 41086642, 5687585 ####[facility] [address] [place] [address] Calcium [Mass/Vol] 9.2 mg/dL Normal 8.9-11.1 [facility] Comment on above: Performed By: #### 2 037154, 0979747, 3841505, 5259567, 27350510, 4804945 ####[facility] [address] [place] [place] [address] Chloride [Moles/Vol] 100 mmol/L Low 101-111 [facility] Comment on above: Performed By: #### 2 383037, 0893803, 9417124, 8265807, 31460138, 4208771 ####[facility] [address] [place] [address] CO2 [Moles/Vol] 20 mmol/L Low 21-31 [facility] Comment on above: Performed By: #### 2 098248, 3481626, 2480277, 6723078, 31971575, 5260144 ####[facility] [address] [place] [address] Creatinine [Mass/Vol] 0.7 mg/dL Normal 0.5-1.3 [facility] Comment on above: Performed By: #### 2 529273, 1872472, 5049098, 4205088, [id number], [id number] ####[facility] [address] [place] [address] Glucose [Mass/Vol] 176 mg/dL Normal 55-199 [facility] Comment on above: Result Comment: If t his glucose result represents a fasting glucose, interpretation should refer to the following reference range: 55-99 mg/dL Performed By: #### 2 095963, 4525426, 8738326, 7375481, [id number], [id number] ####[facility] [address] [place] [address] Potassium [Moles/Vol] 3.4 mmol/L Low 3.5-5.3 [facility] Comment on above: Performed By: #### 2 831326, 1408058, 7193182, 7359398, 52993169, 2678668 ####[facility] [address] [place] [address] Sodium [Moles/Vol] 138 mmol/L Normal 135-145 [facility] Comment on above: Performed By: #### 2 661183, 6501310, 3612812, 2530512, 24571676, 1546068 ####[facility] [address] [place] [address] Urea nitrogen [Mass/Vol] mg/dL Normal 5-21 [facility] Comment on above: Performed By: #### 2 659876, 6852523, 1732559, 3759848, 25327752, 2680069 ####[facility] [address] [place] [address] Urea nitrogen/Creatinine [Mass ratio] UTC Abnormal 10-20 [facility] Comment on above: Result Comment: Resu lt verified by Discern Rule. Performed result UTC (Unable to Calculate) was sent as an Alpha code due the inability to calculate a valid numeric value. Performed By: #### 2 021933, 6308733, 7596606, 9823220, 28695509, 7687374 ####[facility] [address] [place] [address] CBC w/ Auto Diffon Erythrocyte distribution width (RBC) [Ratio] 13.6 % Normal 10.9-14.2 [facility] Comment on above: Performed By: #### 2 294802, 5856369, 3800535, 9565178, 01717730, 4784013 ####[facility] [address] [place] [address] Hematocrit (Bld) [Volume fraction] 44.9 % Normal 34.0-46.0 [facility] Comment on above: Performed By: #### 2 595254, 4219964, 3558009, 1619293, 80003018, 9924977 ####[facility] [address] [place] [address] Hemoglobin (Bld) [Mass/Vol] 15.6 g/dL Normal 12.0-16.0 [facility] Comment on above: Performed By: #### 2 061253, 2540820, 3332973, 4626510, 51856613, 4365640 ####[place] [id number] MCH (RBC) [Entitic mass] 34.3 pg High 27.0-34.0 [facility] Comment on above: Performed By: #### 2 197967, 3105626, 3009403, 4588077, 99519675, 3665710 ####[place] [id number] MCHC (RBC) [Mass/Vol] 34.7 g/dL Normal 31.4-36.0 [facility] Comment on above: Performed By: #### 2 103812, 1241835, 0076372, 1633293, 06411906, 2741386 ####[place] [id number] MCV (RBC) [Entitic vol] 98.8 fL Normal 80.0-100.0 [facility] Comment on above: Performed By: #### 2 748973, 9493042, 4874081, 1330636, 70972560, 9826852 ####[place] [address] [place] [address] Platelet mean volume (Bld) [Entitic vol] 7.5 fL Normal 6.4-10.8 [facility] Comment on above: Performed By: #### 2 428729, 8512208, 2681097, 0745671, 65019170, 4598925 ####[facility] [address] [place] [address] Platelets (Bld) [#/Vol] 199.0 E9/L Normal 150.0-500. 0 [facility] Comment on above: Performed By: #### 2 826859, 7468226, 7683055, 6389688, 44243816, 5152300 ####[facility] [address] [place] [address] RBC (Bld) [#/Vol] 4.6 E12/L Normal 4.3-5.9 [facility] Comment on above: Performed By: #### 2 266247, 4869679, 3557072, 8271076, 97514493, 3711003 ####[facility] [address] [place] [address] WBC corrected for nucl RBC Auto (Bld) [#/Vol] 6.0 E9/L Normal 4.0-11.0 [facility] Comment on above: Performed By: #### 2 833582, 9698624, 0379329, 6095334, 98394399, 6283353 ####[facility] [address] [place] [address] CT Abdomen/Pelvis w/ Contras ton 02-02-2022 CT [...] 300 Contrast amount in ml's: 100 Normal [facility] Discharge Instructionson Discharge Instructions [id number]#[id number]:12 7 Normal [facility] ED Clinical Summaryon 2021 ED Clinical Summary (Inserted Image. Jackie ble to display) [place] [id number] ED Clinical Summary Person Information Name: SHIKHA LOERA [facility] Age: 36 Years : 1985 Sex: Female Language: Divehi PCP: AVERY BLANCA CNP Marital Status: Visit [...] 00:18:27 02/02/2022 00:18:27 02/02/2022 00:18:27 ADDRESS: [address] [place] [phone] PHYS DOC NOTES: MEDICAL INFORMATION: Prescriptions Given: New Medications Printed Prescriptions acetaminophen-hydrocodone ([place] 325 mg-5 mg oral tablet) 1 Tablets By Mouth every 6 hours as needed for pain. Refills: 0. sulfamethoxazole-trimetho prim (Bactrim DS 800 mg-160 mg Tab) 1 Tablets By Mouth 2 times a day for 10 Days. Refills: 0. PATIENT EDUCATION INFORMATION: Instructions: Pyelonephritis, Adult, Kxiv-xv-Givg Follow up: With: Address: When: AVERY BLANCA [address] [facility] [address] [place] [address] [phone] Business (1) In 3 days 02/05/2022 Comments: You can use the pain medication every 6 hours as needed for pain, take the Bactrim twice daily until you have completed the course. Please follow-up with your primary care doctor the next 2 to 3 days. Please return to the ED for any new or worsening symptoms. DIAGNOSIS: Acute pyelonephritis Normal [facility] ED Note-Physicianon 02-03-20 22 ED Note-Physician Basic [...] sees a GI doctor at [facility] who she is unsure of who [...] home. Is given a short course of [place] to go home with. She is given [...] hydroxide/Mg hydroxide/simethicone (more content not included)... Normal [facility] Comment on above: Result Comment: Elec tronically [...] you start to feel better. ? Take ttim-egj-jlilpav and prescription medicines only as told by [...] 05/03/2005 Document Revised: 01/28/2019 Document Reviewed: 01/28/2019 [employer] Patient Education ? 2020 [employer] Normal [facility] ED Patient Summaryon 022 ED Patient Summary (Inserted Image. Jackie ble to display) [place] [id number] Patient Discharge Instructions Person Information Name: SHIKHA LOERA Age: 36 Years Arrival Date: 02/01/2022 21:23:41 Discharge Diagnosis: Acute pyelonephritis Primary Care Physician: AVERY BLANCA CNP Provider Information Primary Provider: Judith Mock DO Advanced Dog Boarder:None The exam and treatment you received in the Emergency Department were for an urgent problem and are not intended as complete care. It is important that you follow up with a doctor, nurse practitioner, or physician?s customer assistant for ongoing care. If your symptoms [...] With: Address: When: AVERY BLANCA [address] [facility] [address] [place] [address] [phone] Business (1) In 3 days 02/05/2022 Comments: [...] participating provider. Patient Education Materials: Pyelonephritis, Adult, Hegg-zt-Onwk A MESSAGE TO ALL PATIENTS REGARDING OPIOIDS PRESCRIPTION OPIOIDS: WHAT YOU NEED TO KNOW Prescription opioids can be used to help relieve xpxmjegw-iw-xfgeas pain and are often prescribed following a [...] (www.fda.gov/Drugs/Resour cesForYou). (more content not included)... Normal [facility] Hep Func Panelon 02-02-2022 Albumin [Mass/Vol] 4.5 g/dL Normal 3.3-5.0 [facility] Comment on above: Performed By: #### 2 293945, 3364943, 0096625, 7476983, 30438473, 5514119 ####[facility] [address] [place] [address] Albumin/Globulin (S) [Mass conc ratio] 1.1 Normal 1.1-2.2 [facility] Comment on above: Performed By: #### 2 375817, 0477608, 3782072, 3270831, 69662809, 2284461 ####[place] [address] [place] [address] ALP [Catalytic activity/Vol] 98 Int._Unit/L Normal 21-98 [facility] Comment on above: Performed By: #### 2 507176, 2428169, 9489866, 1919334, 47665940, 3736198 ####[address] [address] ALT No additional P-5'-P [Catalytic activity/Vol] 57 Int._Unit/L High 6-46 [facility] Comment on above: Performed By: #### 2 946908, 8868292, 7840563, 0417864, 36537720, 1493423 ####[address] [address] AST [Catalytic activity/Vol] 157 Int._Unit/L High 5-43 [facility] Comment on above: Performed By: #### 2 183261, 9072276, 8574400, 2251073, 66259690, 2939009 ####[address] [address] Bilirubin [Mass/Vol] 1.4 mg/dL High 0.0-1.1 [facility] Comment on above: Performed By: #### 2 336967, 7983933, 3066304, 9611639, 52191933, 5654985 ####[address] [address] Bilirubin.direct [Mass/Vol] 0.5 mg/dL High 0.1-0.4 [facility] Comment on above: Performed By: #### 2 136092, 1385917, 2205152, 4251865, 94120132, 9972492 ####[facility] [address] [place] [address] Bilirubin.indirect [Mass or moles/Vol] 0.9 mg/dL Normal 0.1-0.9 [facility] Comment on above: Performed By: #### 2 633765, 2671161, 2564012, 5056032, 15174191, 3579690 ####[facility] [address] [place] [address] Globulin (S) [Mass/Vol] 4.1 g/dL High 1.4-4.0 [facility] Comment on above: Performed By: #### 2 249020, 3493992, 9246799, 9316305, 90736038, 6638240 ####[facility] [address] [place] [address] Protein [Mass/Vol] 8.6 g/dL High 6.0-7.8 [facility] Comment on above: Performed By: #### 2 929650, 6704352, 0719414, 4291842, 34118829, 2549443 ####[place] [address] [place] [address] Lipase Levelon 02-02-2022 Lipase [Catalytic activity/Vol] 57 U/L Normal 13-58 [facility] Comment on above: Performed By: #### 2 728656, 1030348, 2967674, 2130308, 53670471, 0474097 ####[facility] [address] [place] [address] Prescriptions/Work Noteson 1 Prescriptions/Work Notes [id number]#[id number]:12 7 Normal [facility] RAD - Preliminary Cat Scan R eporton 02-02-2022 RAD - Preliminary Cat Scan Report [id number]#[id number]:12 7 Normal [facility] UA With Cult Reflexon 2021 Bacteria LM Ql (Urine sed) 2+ /HPF Abnormal Trace [facility] Comment on above: Performed By: #### 2 749168, 70692573 ####[facility] [address] [place] [address] Bilirubin Ql (U) Negative Normal Negative [facility] Comment on above: Performed By: #### 2 475251, 25889048 ####[facility] [address] [place] [address] Clarity (U) SL CLOUDY Invalid Interpretation Code [facility] Comment on above: Performed By: #### 2 296844, 20525978 ####[facility] [address] [place] [address] Color (U) YELLOW Normal Yellow [facility] Comment on above: Performed By: #### 2 751387, 33419577 ####[facility] [address] [place] [address] Epithelial cells.squamous LM.HPF (Urine sed) [#/Area] 3-4 Normal 0-2 [facility] Comment on above: Performed By: #### 2 414761, 74199348 ####[facility] [address] [place] [address] Glucose Test strip (U) [Mass/Vol] Negative Normal Negative [facility] Comment on above: Performed By: #### 2 303149, 01096125 ####[facility] [address] [place] [address] Hemoglobin Ql (U) 1+ Abnormal Negative [facility] Comment on above: Performed By: #### 2 407351, 69025652 ####[facility] [address] [place] [address] Ketones (U) [Mass/Vol] Negative Normal Negative [facility] Comment on above: Performed By: #### 2 001380, 88974776 ####[facility] [address] [place] [address] Seth Ward.plasma/Seth Ward .RBC (Bld) [Mass ratio] 4-20 Normal 0-3 [facility] Comment on above: Performed By: #### 2 170546, 06396197 ####[facility] [address] [place] [address] Nitrite Ql (U) Negative Normal Negative [facility] Comment on above: Performed By: #### 2 557344, 89555066 ####[facility] [address] [place] [address] pH (U) 5.0 [pH] Invalid Interpretation Code 5.0-9.0 [facility] Comment on above: Performed By: #### 2 551887, 74367669 ####[facility] [address] [place] [address] Protein (U) [Mass/Vol] Negative Normal Negative [facility] Comment on above: Performed By: #### 2 880337, 97042263 ####[place] [address]857 Specific gravity (U) [Rel density] <=1.005 Invalid Interpretation Code 1.005-1.03 0 [facility] Comment on above: Performed By: #### 2 774392, [id number] ####[place] [address] Type of Urine collection method Clean Catch Normal [facility] Comment on above: Performed By: #### 2 390832, 53043512 ####[place] 48[address]857 Urobilinogen Qn (U) 0.2 {Concetta'U}/dL Normal 0.0-1.0 [facility] Comment on above: Performed By: #### 2 774621, 30885305 ####[place] [address]857 WBC Auto Ql (U) 2+ Abnormal Negative [facility] Comment on above: Performed By: #### 2 225363, 53772059 ####[facility] [address] [place], [place] [address] WBC LM.HPF (Urine sed) [#/Area] 26-30 Abnormal 0-5 [facility] Comment on above: Performed By: #### 2 159115, 12804202 ####[facility] [address] [place] [address] [place] Gallbladderon 02-02-2022 US Gallbladder Exam Date/Time: [...] V. Transcribed by: BENNY Technologist: MLE Normal [facility] eGFRon 02-02-2022 GFR/1.73 sq M.predicted among blacks MDRD (S/P/Bld) [Vol rate/Area] mL/min/{1.73_m2} Normal >=59 [facility] Comment on above: Order Comment: Order added by Discern Expert. Result Comment: eGFR is race adjusted. AA=. Performed By: #### 2 221244, 1477830, 2729260, 0349842, 50868517, 0721486 ####[facility] [address] [place] [address] GFR/1.73 sq M.predicted among non-blacks MDRD (S/P/Bld) [Vol rate/Area] mL/min/{1.73_m2} Normal >=59 [facility] Comment on above: Order Comment: Order added by Discern Expert. Result Comment: Political Science Professor cj kidney disease could be indicated at eGFR's of less than 60 mL/min/1.73m2. Kidney failure is indicated at less than 15 mL/min/1.73m2. Performed By: #### 2 239579, 7431251, 2038193, 1436269, 36910968, 9089866 ####[facility] [address] [place] [address] CHEMISTRYOrdered By: Jorge ruby on 02-01-2022 Albumin [...] [Mass/Vol] mg/dL Normal 5 - 21 mg/dL [facility] Remisol CHEMISTRYOrdered By: SYSTEM SYSTEM on 02-01-2022 GFR/1.73 sq M.predicted among blacks MDRD (S/P/Bld) [Vol rate/Area] mL/min/1.73 m2 Normal >=59mL/min /1.73 m2 [facility] Chem S GFR/1.73 sq M.predicted among non-blacks MDRD (S/P/Bld) [Vol rate/Area] mL/min/1.73 m2 Normal >=59mL/min /1.73 m2 [facility] Chem S Urea nitrogen/Creatinine [Mass ratio] Unable to Calculate Invalid Interpretation Code [facility] Remisol Consent for Treatmenton 01-08 Consent for Treatment [id number]#[id number]:12 7 Normal [facility] HEMATOLOGYOrdered By: SYSTEM SYSTEM on 02-01-2022 Basophils/100 [...] Nom (U) >100,000 cfu/ml Gram Negative [employer] species [facility] SEROLOGYOrdered By: Jorge pop on 02-01-2022 Beta hCG Ql Negative (02/01/22 9:55 PM) Normal [facility] Man Sero URINALYSISOrdered By: Jorge Esquivel on [...] PM) Normal Negative [facility] UA Auto SS Seth Ward.plasma/Seth Ward .RBC (Bld) [Mass ratio] 4-20 /HPF Normal [...] [facility] UA Auto SS Urobilinogen Qn (U) 0.3887386 {Concetta'U}/dL Normal 0.0 - 1.0 EU/dL [facility] UA Auto SS WBC Auto Ql (U) 2+ *ABN* (02/01/22 11:42 PM) Invalid Interpretation Code Negative [facility] UA Auto SS WBC LM.HPF (Urine sed) [#/Area] 26-30 /HPF Invalid Interpretation Code 0-5/HPF [facility] UA Auto SS Albumin [Mass/volume] in Ser um or PlasmaOrdered By: Delfino Reese on 01-18-2022 Albumin [Mass/Vol] 3.8 g/dL 3.2-5.5 [facility] C reactive protein [Mass/vol ume] in Serum or PlasmaOrdered By: Delfino Reese on 01-18-2022 CRP [Mass/Vol] 1.9 mg/dL 0.0-1.0 [facility] Creatinine and Glomerular fi ltration rate.predicted panel (S/P/Bld)Ordered By: Delfino Reese on 01-18-2022 Creatinine [Mass/Vol] 0.57 mg/dL 0.44-1.03 [facility] Erythrocyte sedimentation ra te by Photometric methodOrdered By: Delfino Reese on 01-18-2022 ESR Photometric method (Bld) [Velocity] 8 mm/hr 0-19 [facility] Estimated glomerular filtrat ion rate (GFR) non- AmericanOrdered By: Delfino Reese on 01-18-2022 GFR/1.73 sq M.predicted among non-blacks MDRD (S/P/Bld) [Vol rate/Area] > 60 mL/Min [facility] Folate [Mass/volume] in Seru m or PlasmaOrdered By: Delfino Reese on 01-18-2022 Folate [Mass/Vol] 10.4 ng/mL >5.9 [facility] Comment on above: Folate reference ran ge: >5.9 ng/mlThe WHO technical consultation on folate and vitamin o90ohnuwywphqlm has determined that folate concentrations lessthan 4 ng/ml are considered deficient. Globulin Calc (S) [Mass/Vol] Ordered By: Delfino Reese on 01-18-2022 Globulin (S) [Mass/Vol] 3.2 g/dL [facility] Laboratory - Chemistry and C hemistry - challengeOrdered By: Delfino Reese on 01-18-2022 Cobalamin (Vitamin B12) [Mass/Vol] 588 pg/mL 180-914 [facility] No Panel InformationOrdered By: Delfino Reese on 01-18-2022 Estimated GFR () > 60 mL/Min [facility] Comment on above: GFR estimated refere nce range: According to KDOQI guidelines, <60 ml/min/1.73m2 is sufficient to diagnose a patient with chronic kidney disease. Pharmacy Creatinine Clearance (Chem N/A [facility] Protein [Mass/volume] in Ser um or PlasmaOrdered By: Delfino Reese on 01-18-2022 Protein [Mass/Vol] 7.0 g/dL 6.1-7.9 [facility] Serum or plasma alanine montes otransferase measurement without P-5'-P (enzymatic activiOrdered By: Delfino Reese on 01-18-2022 ALT No additional P-5'-P [Catalytic activity/Vol] 58 U/L [facility] Serum or plasma albumin/glob ulin mass ratioOrdered By: Delfino Reese on 01-18-2022 Albumin/Globulin [Mass ratio] 1.2 {ratio} [facility] Serum or plasma alkaline florencio sphatase measurement (enzymatic activity/volume)Ordered By: Delfino Reese on 01-18-2022 ALP [Catalytic activity/Vol] 90 U/L 32-92 [facility] Serum or plasma anion gap de terminationOrdered By: Delfino Reese on 01-18-2022 Anion gap [Moles/Vol] 16.5 mmol/L 6.0-15.0 [facility] Serum or plasma aspartate am inotransferase measurement (enzymatic activity/volume)Ordered By: Delfino Reese on 01-18-2022 AST [Catalytic activity/Vol] 84 U/L [facility] Serum or plasma calcium archie urement (mass/volume)Ordered By: Delfino Reese on 01-18-2022 Calcium [Mass/Vol] 9.2 mg/dL 8.2-10.2 [facility] Serum or plasma chloride luz surement (moles/volume)Ordered By: Delfino Reese on 01-18-2022 Chloride [Moles/Vol] 105 mmol/L 95-114 [facility] Serum or plasma glucose archie urement (mass/volume)Ordered By: Delfino Reese on 01-18-2022 Glucose [Mass/Vol] 114 mg/dL 70-100 [facility] Comment on above: ADA recommended refe rence rangeRandom Glucose Reference Range is dependent on time and content of last meal. Glucose of more than 200 mg/dL in a nonstressed, ambulatory subject supports the diagnosis of Diabetes Mellitus. Serum or plasma potassium me asurement (moles/volume)Ordered By: Delfino Reese on 01-18-2022 Potassium [Moles/Vol] 3.5 mmol/L 3.5-5.1 [facility] Serum or plasma sodium measu rement (moles/volume)Ordered By: Delfino Reese on 01-18-2022 Sodium [Moles/Vol] 143 mmol/L 136-146 [facility] Serum or plasma total biliru bin measurement (mass/volume)Ordered By: Delfino Reese on 01-18-2022 Bilirubin [Mass/Vol] 0.8 mg/dL 0.3-1.2 [facility] Serum or plasma total carbon dioxide measurement (moles/volume)Ordered By: Delfino Reese on 01-18-2022 CO2 [Moles/Vol] 25.0 mmol/L 22.0-30.0 [facility] Serum or plasma urea nitroge n measurement (mass/volume)Ordered By: Delfino Reese on 01-18-2022 Urea nitrogen [Mass/Vol] 1 mg/dL 9-23 [facility] TSH DL <= 0.005 mIU/L QnOrde red By: Delfino Reese on 01-18-2022 TSH Qn 7.46 m[IU]/L 0.45-5.33 [facility] Thyroxine (T4) free [Mass/vo lume] in Serum or PlasmaOrdered By: Delfino Reese on 01-18-2022 Free T4 [Mass/Vol] 0.71 ng/dL 0.61-1.12 [facility] Bacteria identified Anaer cx Nom (Unsp spec)Ordered By: Delfino Reese on 12-26-2021 Anaerobic microbial culture No Anaerobes Isolated 3 Days [facility] ABO and Rh group post transf usion reaction Nom (Bld)Ordered By: Delfino Reese on 12-23-2021 Microscopic observation Gram stain Nom (Unsp spec) [facility] Albumin [Mass/volume] in Cer ebral spinal fluidOrdered By: Delfino Reese on 12-23-2021 Albumin (CSF) [Mass/Vol] 14 mg/dL 7-29 [facility] Albumin [Mass/volume] in Ser um or PlasmaOrdered By: Delfino Reese on 12-23-2021 Albumin [Mass/Vol] 4.2 g/dL 3.8-4.8 [facility] CSF IgG/albumin ratioOrdered By: Delfino Reese on 12-23-2021 IgG/Albumin (CSF) [Mass ratio] 0.10 0.00-0.25 [facility] Cerebrospinal fluid IgG inde xOrdered By: Delfino Reese on 12-23-2021 IgG clearance/Albumin clearance (S+CSF) [Ratio] 0.6 0.0-0.7 [facility] Cerebrospinal fluid glucose measurement (mass/volume)Ordered By: Delfino Reese on 12-23-2021 Glucose (CSF) [Mass/Vol] 87 mg/dL 40-70 [facility] Cerebrospinal fluid post-antonia trifugation appearance determinationOrdered By: Delfino Reese on 12-23-2021 Appearance (Spun CSF) Colorless Colorless [facility] Cerebrospinal fluid sample t ube volume measurementOrdered By: Delfino Reese on 12-23-2021 Specimen volume (CSF) 2.0 mL [facility] Color CSFOrdered By: Delfino Reese on 12-23-2021 Color (CSF) Colorless Colorless [facility] IgG [Mass/volume] in Cerebra l spinal fluidOrdered By: Delfino Reese on 12-23-2021 IgG (CSF) [Mass/Vol] 1.4 mg/dL 0.0-6.7 [facility] IgG [Mass/volume] in Serum o r PlasmaOrdered By: Delfino Reese on 12-23-2021 IgG [Mass/Vol] 708 mg/dL 586-1602 [facility] IgG synthesis rate [Mass/aleksey e] in Serum and CSF by calculationOrdered By: Delfino Reese on 12-23-2021 IgG synthesis rate Calc (S+CSF) [Mass/Time] -1.0 mg/day -9.9 TO +3.3 [facility] Comment on above: Performed at: [facility] [employer] [place] [address] [place], [place] [id number] Sales Agent Insurance: Torsten Vidal PhD, Phone: [phone] Performed at: [facility] [employer] [address] [place], [place] [id number] Director: Torsten Vidal PhD, Phone: [phone] Manual cerebrospinal fluid e rythrocytes count (number/volume)Ordered By: Delfino Reese on 12-23-2021 RBC Manual cnt (CSF) [#/Vol] 77 /uL [facility] Comment on above: The reference interv al and other method performance specifications have not been established for this body fluid. The test result must be integrated into the clinical context for interpretation. No Panel InformationOrdered By: Delfino Reese on 12-23-2021 CSF Appearance Clear Clear [facility] CSF Eosinophils N/A [facility] CSF Lymphocytes 1 [facility] Comment on above: The reference interv al and other method performance specifications have not been established for this body fluid. The test result must be integrated into the clinical context for interpretation. CSF Monocytes 1 [facility] Comment on above: The reference interv al and other method performance specifications have not been established for this body fluid. The test result must be integrated into the clinical context for interpretation. CSF Myelin Basic Protein 3.3 ng/mL 0.0-3.7 [facility] Comment on above: Results of this test are labeled for research purposes only by the assay's pipe bowls paint trimmer. The performance characteristics of this assay have not been established by the pipe bowls paint trimmer. The result should not be used for treatment or for diagnostic purposes without confirmation of the diagnosis by another medically established diagnostic product or procedure. The performance characteristics were determined by [employer]. Performed at: [address] [id number] [employer]: Charlie Manriquez MD, Phone: [phone] Results of this test are labeled for research purposes onlyby the assay's pipe bowls paint trimmer. The performancecharacteristics of this assay have not been established bythe pipe bowls paint trimmer. The result should not be used fortreatment or for diagnostic purposes without confirmationof the diagnosis by another medically establisheddiagnostic product or procedure. The performancecharacteristics were determined by [employer].Performed at: - [address] [id number] Director: Charlie Manriquez MD, Phone: [phone] CSF Neutrophils N/A [facility] CSF Total Cells Counted 2 [facility] CSF Tube Number Tube number: 1 [facility] Nucleated cells [#/volume] i n Cerebral spinal fluid by Manual countOrdered By: Delfino Reese on 12-23-2021 Nucleated cells Manual cnt (CSF) [#/Vol] 0.002 10*3/uL 0-5 [facility] Protein [Mass/volume] in Cer ebral spinal fluidOrdered By: Delfino Reese on 12-23-2021 Protein (CSF) [Mass/Vol] 23 mg/dL 15-45 [facility] Protein fractions.oligoclona l bands.intrathecal [Presence] in Serum and CSFOrdered By: Delfino Reese on 12-23-2021 Protein fractions.oligoclonal bands.intrathecal Ql (S+CSF) See comment . [facility] Comment on above: Zero (0) oligoclonal [...] (IEF) and immunoblotting methodology. Performed at: [address] [id number] [employer]: Torsten Vidal PhD, Phone: [phone] Zero (0) oligoclonal bands were observed in [...] using IsoelectricFocusing (IEF) and immunoblotting methodology.Performed at: [address] [id number] Director: Torsten Vidal PhD, Phone: [phone] Basophils Auto (Bld) [#/Vol] Ordered By: Avery Blanca on 11-25-2021 Basophils (Bld) [#/Vol] 0.0 10*3/uL 0.0-0.2 [facility] Basophils/100 WBC Auto (Bld) Ordered By: Avery Blanca on 11-25-2021 Basophils/100 WBC (Bld) 0.5 % . [facility] Blood hemoglobin measurement (mass/volume)Ordered By: Avery Blanca on 11-25-2021 Hemoglobin (Bld) [Mass/Vol] 15.4 g/dL 11.8-15.4 [facility] Blood leukocytes automated c ount (number/volume)Ordered By: Avery Blacna on 11-25-2021 WBC (Bld) [#/Vol] 5.3 10*3/uL 4.5-11.0 [facility] Blood thiamine measurement ( moles/volume)Ordered By: Avery Blanca on 11-25-2021 Thiamine (Bld) [Moles/Vol] 113.7 nmol/L 66.5-200.0 [facility] Comment on above: This test was develo ped and its performance characteristics determined by [employer]. It has not been cleared or approved by the Food and Drug Administration. Performed at: [address] [id number] [employer]: Charlie Manriquez MD, Phone: [phone] This test was develo ped and its performance characteristicsdetermined by [employer]. It has not been cleared orapproved by the Food and Drug Administration.Performed at: [facility] [employer] [id number] Director: Charlie Manriquez MD, Phone: [phone] Body fluid albumin measureme nt (mass/volume)Ordered By: Avery Blanca on 11-25-2021 Albumin (Body fld) [Mass/Vol] 4.0 g/dL 3.2-5.5 [facility] Creatinine and Glomerular fi ltration rate.predicted panel (S/P/Bld)Ordered By: Avery Blanca on 11-25-2021 Creatinine [Mass/Vol] 0.67 mg/dL 0.44-1.03 [facility] Eosinophils Auto (Bld) [#/Vo l]Ordered By: Avery Blanca on 11-25-2021 Eosinophils (Bld) [#/Vol] 0.1 10*3/uL 0.0-0.45 [facility] Eosinophils/100 WBC Auto (Bl d)Ordered By: Avery Blanca on 11-25-2021 Eosinophils/100 WBC (Bld) 1.3 % . [facility] Erythrocyte distribution wid th Auto (RBC) [Ratio]Ordered By: Avery Blanca on 11-25-2021 Erythrocyte distribution width (RBC) [Ratio] 13.5 % 11.9-15.3 [facility] Erythrocyte sedimentation ra te by Photometric methodOrdered By: Avery Blanca on 11-25-2021 ESR Photometric method (Bld) [Velocity] 14 mm/hr 0- [facility] Estimated glomerular filtrat ion rate (GFR) non- AmericanOrdered By: Avery Blanca on 11-25-2021 GFR/1.73 sq M.predicted among non-blacks MDRD (S/P/Bld) [Vol rate/Area] > 60 mL/Min [facility] Folate [Mass/volume] in Seru m or PlasmaOrdered By: Avery Blanca on 11-25-2021 Folate [Mass/Vol] 9.2 ng/mL >5.9 [facility] Comment on above: Folate reference ran ge: >5.9 ng/ml The WHO technical consultation on folate and vitamin b12 deficiencies has determined that folate concentrations less than 4 ng/ml are considered deficient. Folate reference ran ge: >5.9 ng/mlThe WHO technical consultation on folate and vitamin [id number] has determined that folate concentrations lessthan 4 ng/ml are considered deficient. Globulin Calc (S) [Mass/Vol] Ordered By: Avery Blanca on 11-25-2021 Globulin (S) [Mass/Vol] 2.9 g/dL [facility] Hematocrit Auto (Bld) [Volum e fraction]Ordered By: Avery Blanca on 11-25-2021 Hematocrit (Bld) [Volume fraction] 45.2 % 34.0-46.4 [facility] - Chemistry and C hemistry - challengeOrdered By: Avery Blanca on 11-25-2021 Cobalamin (Vitamin B12) [Mass/Vol] 421 pg/mL 180-914 [facility] - Hematology and Cell countsOrdered By: Avery Blanca on 11-25-2021 Nucleated RBC/100 WBC (Bld) [Ratio] 0.6 % 0-0.5 [facility] Lymphocytes Auto (Bld) [#/Vo l]Ordered By: Avery Blanca on 11-25-2021 Lymphocytes (Bld) [#/Vol] 0.8 10*3/uL 1.00-4.8 [facility] Lymphocytes/100 WBC Auto (Bl d)Ordered By: Avery Blanca on 11-25-2021 Lymphocytes/100 WBC (Bld) 14.8 % . [facility] MCH Auto (RBC) [Entitic mass ]Ordered By: Avery Blanca on 11-25-2021 MCH (RBC) [Entitic mass] 32.3 pg 24.7-34.3 [facility] MCHC Auto (RBC) [Mass/Vol]Or dered By: Avery Blanca on 11-25-2021 MCHC (RBC) [Mass/Vol] 34.0 g/dL 32.0-35.0 [facility] MCV Auto (RBC) [Entitic vol] Ordered By: Avery Blanca on 11-25-2021 MCV (RBC) [Entitic vol] 95.1 fL 80-100 [facility] Monocytes Auto (Bld) [#/Vol] Ordered By: Avery Blanca on 11-25-2021 Monocytes (Bld) [#/Vol] 0.2 10*3/uL 0.0-0.8 [facility] Monocytes/100 WBC Auto (Bld) Ordered By: Avery Blanca on 11-25-2021 Monocytes/100 WBC (Bld) 3.4 % . [facility] Neutrophils Auto (Bld) [#/Vo l]Ordered By: Avery Blanca on 11-25-2021 Neutrophils (Bld) [#/Vol] 4.2 10*3/uL 1.8-7.7 [facility] Neutrophils/100 WBC Auto (Bl d)Ordered By: Avery Blanca on 11-25-2021 Neutrophils/100 WBC (Bld) 80.0 % . [facility] No Panel InformationOrdered By: Avery Blanca on 11-25-2021 Estimated GFR () > 60 mL/Min [facility] Comment on above: GFR estimated refere nce range: According to KDOQI guidelines, <60 ml/min/1.73m2 is sufficient to diagnose a patient with chronic kidney disease. Pharmacy Creatinine Clearance (Chem N/A [facility] Platelet mean volume Auto (B ld) [Entitic vol]Ordered By: Avery Blanca on 11-25-2021 Platelet mean volume (Bld) [Entitic vol] 9.1 fL 6.3-10.7 [facility] Platelets Auto (Bld) [#/Vol] Ordered By: Avery Blanca on 11-25-2021 Platelets (Bld) [#/Vol] 210 10*3/uL 150-450 [facility] Protein [Mass/volume] in Ser um or PlasmaOrdered By: Avery Blanca on 11-25-2021 Protein [Mass/Vol] 6.9 g/dL 6.1-7.9 [facility] RBC Auto (Bld) [#/Vol]Ordere d By: Avery Blanca on 11-25-2021 RBC (Bld) [#/Vol] 4.75 10*6/uL 3.60-5.00 [facility] Serum or plasma alanine montes otransferase measurement without P-5'-P (enzymatic activiOrdered By: Avery Blanca on 11-25-2021 ALT No additional P-5'-P [Catalytic activity/Vol] 130 U/L 10-60 [facility] Serum or plasma albumin/glob ulin mass ratioOrdered By: Avery Blanca on 11-25-2021 Albumin/Globulin [Mass ratio] 1.4 {ratio} [facility] Serum or plasma alkaline florencio sphatase measurement (enzymatic activity/volume)Ordered By: Avery Blanca on 11-25-2021 ALP [Catalytic activity/Vol] 74 U/L 32-92 [facility] Serum or plasma aspartate am inotransferase measurement (enzymatic activity/volume)Ordered By: Avery Blanca on 11-25-2021 AST [Catalytic activity/Vol] 117 U/L 10-42 [facility] Serum or plasma calcium archie urement (mass/volume)Ordered By: Avery Blanca on 11-25-2021 Calcium [Mass/Vol] 9.6 mg/dL 8.2-10.2 [facility] Serum or plasma chloride luz surement (moles/volume)Ordered By: Avery Blanca on 11-25-2021 Chloride [Moles/Vol] 98 mmol/L 95-114 [facility] Serum or plasma glucose archie urement (mass/volume)Ordered By: Avery Blanca on 11-25-2021 Glucose [Mass/Vol] 121 mg/dL 70-100 [facility] Comment on above: ADA recommended refe [...] on 11-25-2021 Potassium [Moles/Vol] 3.6 mmol/L 3.5-5.1 [facility] Serum or plasma sodium measu rement (moles/volume)Ordered By: Avery Blanca on 11-25-2021 Sodium [Moles/Vol] 139 mmol/L 136-146 [facility] Serum or plasma total biliru bin measurement (mass/volume)Ordered By: Avery Blanca on 11-25-2021 Bilirubin [Mass/Vol] 0.8 mg/dL 0.3-1.2 [facility] Serum or plasma total carbon dioxide measurement (moles/volume)Ordered By: vAery Blanca on 11-25-2021 CO2 [Moles/Vol] 28.4 mmol/L 22.0-30.0 [facility] Serum or plasma urea nitroge n measurement (mass/volume)Ordered By: Avery Blanca on 11-25-2021 Urea nitrogen [Mass/Vol] 5 mg/dL 9-23 [facility] TSH DL <= 0.005 mIU/L QnOrde red By: Avery Blanca on 11-25-2021 TSH Qn 2.02 m[IU]/L 0.45-5.33 [facility] AMYLASEon 11-20-2021 Amylase [Catalytic activity/Vol] 15 U/L Critically low 25-115 [facility] Comment on above: Performed By: #### L IPA, NGA, CMP #### [facility] [address] [place] [address] Dr. Angela Aguero CBC W MANUAL DIFFon 11-21-19 22 ATYPICAL LYMPH # Normal [facility] Comment on above: Performed By: #### C KRISHAN #### [facility] [address] [address] [address] Angela Aguero ATYPICAL LYMPH % Normal [facility] Comment on above: Performed By: #### C KRISHAN #### [facility] [address] [address] [address] Angela Aguero BAND # 0.2 103/ul Normal 0.0-0.3 [facility] Comment on above: Performed By: #### C BCMAN #### [facility] [address] [place] [address] Dr. Angela Aguero BAND % 3 % Normal 0-5 [facility] Comment on above: Performed By: #### C BCMAN #### [facility] [address] [place] [address] Dr. Angela Aguero BASOM # 0.00 103/ul Normal 0.00-0.10 [facility] Comment on above: Performed By: #### C BCMAN #### [facility] [address] [place] [address] Dr. Angela Aguero BASOM % 0.0 % Critically low 0.2-2.0 [facility] Comment on above: Performed By: #### C BCSOLANGE #### [facility] [address] [place] [address] Dr. Angela Aguero BLAST # Normal [facility] Comment on above: Performed By: #### C KRISHAN #### [facility] [address] [place] [address] Dr. Angela Aguero BLAST % Normal [facility] Comment on above: Performed By: #### C BCSOLANGE #### [facility] [address] [place] [address] Dr. Angela Aguero CORRECTED WBC Normal 4.0-11.[address] [facility] Comment on above: Performed By: #### C BCMAN #### [facility] [address] [place] [address] Dr. Angela Aguero EOS # 0.00 103/ul Normal 0.00-0.70 [facility] Comment on above: Performed By: #### C BCMAN #### [facility] [address] [place] [address] Dr. Angela Aguero EOS% 0.0 % Critically low 0.9-7.0 [facility] Comment on above: Performed By: #### C BCSOLANGE #### [facility] [address] [place] [address] Dr. Angela Aguero HCT 41.2 % Normal 36.0-48.0 [facility] Comment on above: Performed By: #### C KRISHAN #### [facility] [address] [place] [address] Dr. Angela Aguero HGB 14.2 g/dl Normal 12.0-16.0 [facility] Comment on above: Performed By: #### C KRISHAN #### [facility] [address] [place] [address] Dr. Angela Aguero LYMPHM # 0.19 103/ul Critically low 1.20-3.80 [facility] Comment on above: Performed By: #### C KRISHAN #### [facility] [address] [place] [address] Dr. Angela Aguero LYMPHM% 3.0 % Critically low 20.5-60.0 [facility] Comment on above: Performed By: #### C KRISHAN #### [facility] [address] [place] [address] Dr. Angela Aguero MCH 32.4 pg Normal 26.7-34.0 [facility] Comment on above: Performed By: #### C KRISHAN #### [facility] [address] [place] [address] Dr. Angela Aguero MCHC 34.5 g/dl Normal 29.9-35.2 [facility] Comment on above: Performed By: #### C KRISHAN #### [facility] [address] [place] [address] Dr. Angela Aguero MCV 94.1 fL Normal 81.0-99.0 [facility] Comment on above: Performed By: #### C KRISHAN #### [facility] [address] [place] [address] Dr. Angela Aguero METAMYELOCYTE # Normal [facility] Comment on above: Performed By: #### C KRISHAN #### [facility] [address] [place] [address] Dr. Angela Aguero METAMYELOCYTE % Normal [facility] Comment on above: Performed By: #### C KRISHAN #### [facility] [address] [address] [address] Angela Aguero MONOM# 0.32 103/ul Normal 0.30-0.80 [facility] Comment on above: Performed By: #### C KRISHAN #### [facility] [address] [place] [address] Dr. Angela Aguero MONOM% 5.0 % Normal 1.7-12.0 [facility] Comment on above: Performed By: #### C KRISHAN #### [facility] [address] [place] [address] Dr. Angela Aguero MPV 10.4 fL Normal 9.5-13.5 [facility] Comment on above: Performed By: #### C KRISHAN #### [facility] [address] [place] [address] Dr. Angela Aguero MYELOCYTE # Normal [facility] Comment on above: Performed By: #### Jeannette NICKERSON #### [facility] [address] [place] [address] Dr. Angela Aguero MYELOCYTE % Normal [facility] Comment on above: Performed By: #### C KRISHAN #### [facility] [address] [place] [address] Dr. Angela Aguero NRBC Normal [facility] Comment on above: Performed By: #### C KRISHAN #### [facility] [address] [place] [address] Dr. Angela Aguero PLT 204 103/ul Normal 150-450 [facility] Comment on above: Performed By: #### C KRISHAN #### [facility] [address] [place] [address] Dr. Angela Aguero RBC 4.38 106/ul Normal 4.20-5.40 [facility] Comment on above: Performed By: #### C KRISHAN #### [facility] [address] [place] [address] Dr. Angela Aguero RDW 12.4 % Normal 11.0-15.0 [facility] Comment on above: Performed By: #### C KRISHAN #### [facility] [address] [place] [address] Dr. Angela Aguero SEG # 5.70 103/ul Normal 1.40-6.50 [facility] Comment on above: Performed By: #### C KRISHAN #### [facility] [address] [address] [address] Angela Aguero SEG % 89.0 % Critically high 43.0-75.0 [facility] Comment on above: Performed By: #### C KRISHAN #### [facility] [address] [address] [address] Angela Aguero WBC 6.4 103/ul Normal 4.0-11.0 [facility] Comment on above: Performed By: #### C KRISHAN #### [facility] [address] [address] [address] Angela Aguero CRPon 11-20-2021 CRP [Mass/Vol] mg/L Normal <=1.0 [facility] Comment on above: Performed By: #### L NGA SMITH, CMP #### [facility] [address] [place] [address] Dr. Angela Aguero LIPASEon 11-20-2021 Lipase [Catalytic activity/Vol] 28.0 U/L Critically low 73.0-393.0 [facility] Comment on above: Performed By: #### L NGA SMITH, CMP #### [facility] [address] [place] [address] Dr. Angela Aguero PROF 14(COMP METB)on 022 Albumin [Mass/Vol] 3.4 g/dL Normal 3.4-5.0 [facility] Comment on above: Performed By: #### L NGA SMITH, CMP #### [facility] [address] [place] [address] Dr. Angela Aguero Albumin/Globulin [Mass ratio] 1.0 {ratio} Normal [facility] Comment on above: Performed By: #### L NGA SMITH, CMP #### [facility] [address] [place] [address] Dr. Angela Aguero ALP [Catalytic activity/Vol] 63 U/L Normal 46-116 [facility] Comment on above: Performed By: #### L IPA, NGA, CMP #### [facility] [address] [address] [address] Angela Aguero ALT [Catalytic activity/Vol] 55 U/L Normal 14-59 [facility] Comment on above: Performed By: #### L IPA, NGA, CMP #### [facility] [address] [address] [address] Angela Aguero Anion gap [Moles/Vol] 13.3 mmol/L Normal [facility] Comment on above: Performed By: #### L IPA, NGA, CMP #### [facility] [address] [address] [address] Angela Aguero AST [Catalytic activity/Vol] 39 U/L Critically high 15-37 [facility] Comment on above: Performed By: #### L IPA, NGA, CMP #### [facility] [address] [place] [address] Dr. Angela Aguero Bilirubin [Mass/Vol] 1.1 mg/dL Critically high 0.2-1.0 [facility] Comment on above: Performed By: #### L IPA, NGA, CMP #### [facility] [address] [place] [address] Dr. Angela Aguero Calcium [Mass/Vol] 7.9 mg/dL Critically low 8.5-10.1 [facility] Comment on above: Performed By: #### L IPA, NGA, CMP #### [facility] [address] [place] [address] Dr. Angela Aguero Chloride [Moles/Vol] 103 mmol/L Normal 98-107 [facility] Comment on above: Performed By: #### L IPA, NGA, CMP #### [facility] [address] [place] [address] Dr. Angela Aguero CO2 [Moles/Vol] 26.9 mmol/L Normal 21.0-32.0 [facility] Comment on above: Performed By: #### L IPA, NGA, CMP #### [facility] [address] [place] [address] Dr. Angela Aguero Creatinine [Mass/Vol] 0.81 mg/dL Normal 0.55-1.02 [facility] Comment on above: Performed By: #### L NGA SMITH, CMP #### [facility] [address] [place] [address] Dr. Angela Aguero EGFR-AF NEW ZEALANDER >60 Normal >=60 [facility] Comment on above: Performed By: #### L NGA SMITH, CMP #### [facility] [address] [address] [address] Angela Aguero EGFR-NON AF NEW ZEALANDER >60 Normal >=60 [facility] Comment on above: Performed By: #### L NGA SMITH, CMP #### [facility] [address] [place] [address] Dr. Angela Aguero Globulin (S) [Mass/Vol] 3.3 g/dL Normal [facility] Comment on above: Performed By: #### L NGA SMITH, CMP #### [facility] [address] [place] [address] Dr. Angela Aguero Glucose [Mass/Vol] 185 mg/dL Critically high 74-106 [facility] Comment on above: Performed By: #### L NGA SMITH, CMP #### [facility] [address] [place] [address] Dr. Angela Aguero Potassium [Moles/Vol] 3.2 mmol/L Critically low 3.5-5.1 [facility] Comment on above: Performed By: #### L NGA SMITH, CMP #### [facility] [address] [place] [address] Dr. Angela Aguero Protein [Mass/Vol] 6.7 g/dL Normal 6.4-8.2 [facility] Comment on above: Performed By: #### L NGA SMITH, CMP #### [facility] [address] [place] [address] Dr. Angela Aguero Sodium [Moles/Vol] 140 mmol/L Normal 136-145 [facility] Comment on above: Performed By: #### L NGA SMITH, CMP #### [facility] [address] [place] [address] Dr. Angela Aguero Urea nitrogen [Mass/Vol] 8.0 mg/dL Normal 7.0-18.0 [facility] Comment on above: Performed By: #### L IPA, NGA, CMP #### [facility] [address] [place] [address] Dr. Angela Aguero Urea nitrogen/Creatinine [Mass ratio] 9.9 mg/mg Normal [facility] Comment on above: Performed By: #### L IPA, NGA, CMP #### [facility] [address] [place] [address] Dr. Angela Aguero SED RATE WESTERGRENon 2021 SED RATE 3 mm/hr Normal <=20 [facility] Comment on above: Performed By: #### S EDR #### [facility] [address] [place] [address] Dr. Angela Aguero AMYLASEon 11-19-2021 Amylase [Catalytic activity/Vol] 17 U/L Critically low 25-115 [facility] Comment on above: Performed By: #### C MP, NGA, CRP, LIPA #### [facility] [address] [place] [address] Dr. Angela Aguero CBC AUTO DIFFon 11-19-2021 BASO # 0.0 103/ul Normal 0.0-0.1 [facility] Comment on above: Performed By: #### L IPA, NGA, CMP #### [facility] [address] [place] [address] Dr. Angela Aguero Basophils/100 WBC (Bld) 0.6 % Normal 0.2-2.0 [facility] Comment on above: Performed By: #### L IPA, NGA, CMP #### [facility] [address] [place] [address] Dr. Angela Aguero EO # 0.0 103/ul Normal 0.0-0.7 [facility] Comment on above: Performed By: #### L IPA, NGA, CMP #### [facility] [address] [place] [address] Dr. Angela Aguero Eosinophils/100 WBC (Bld) 0.0 % Critically low 0.9-7.0 [facility] Comment on above: Performed By: #### L NGA SMITH, CMP #### [facility] [address] [place] [address] Dr. Angela Aguero Erythrocyte distribution width (RBC) [Ratio] 12.9 % Normal 11.0-15.0 [facility] Comment on above: Performed By: #### L NGA SMITH, CMP #### [facility] [address] [place] [address] Dr. Angela Aguero Hematocrit (Bld) [Volume fraction] 43.3 % Normal 36.0-48.0 [facility] Comment on above: Performed By: #### L NGA SMITH, CMP #### [facility] [address] [place] [address] Dr. Angela Aguero Hemoglobin (Bld) [Mass/Vol] 14.7 g/dL Normal 12.0-16.0 [facility] Comment on above: Performed By: #### L NGA SMITH, CMP #### [facility] [address] [place] [address] Dr. Angela Aguero IG # 0.02 10e3/ul Normal 0.00-0.03 [facility] Comment on above: Performed By: #### L NGA SMITH, CMP #### [facility] [address] [place] [address] Dr. Angela Aguero IG % 0.6 % Critically high 0.0-0.5 [facility] Comment on above: Performed By: #### L NGA SMITH, CMP #### [facility] [address] [place] [address] Dr. Angela Aguero LYMPH # 0.3 103/ul Critically low 1.2-3.8 [facility] Comment on above: Performed By: #### L NGA SMITH, CMP #### [facility] [address] [place] [address] Dr. Angela Aguero Lymphocytes/100 WBC (Bld) 8.9 % Critically low 20.5-60.0 [facility] Comment on above: Performed By: #### L NGA SMITH, CMP #### [facility] [address] [place] [address] Dr. Angela Aguero MANUAL DIFF REQ NO Normal [facility] Comment on above: Performed By: #### L NGA SMITH, CMP #### [facility] [address] [place] [address] Dr. Angela Aguero MCH (RBC) [Entitic mass] 32.5 pg Normal 26.7-34.0 [facility] Comment on above: Performed By: #### L NGA SMITH, CMP #### [facility] [address] [place] [address] Dr. Angela Aguero MCHC (RBC) [Mass/Vol] 33.9 g/dL Normal 29.9-35.2 [facility] Comment on above: Performed By: #### L NGA SMITH, CMP #### [facility] [address] [place] [address] Dr. Angela Aguero MCV (RBC) [Entitic vol] 95.6 fL Normal 81.0-99.0 [facility] Comment on above: Performed By: #### L NGA SMITH, CMP #### [facility] [address] [place] [address] Dr. Angela Aguero MONO # 0.0 103/ul Critically low 0.3-0.8 [facility] Comment on above: Performed By: #### L NGA SMITH, CMP #### [facility] [address] [place] [address] Dr. Angela Aguero Monocytes/100 WBC (Bld) 0.6 % Critically low 1.7-12.0 [facility] Comment on above: Performed By: #### L NGA SMITH, CMP #### [facility] [address] [place] [address] Dr. Angela Aguero NEUT # 3.1 103/ul Normal 1.4-6.5 [facility] Comment on above: Performed By: #### L NGA SMITH, CMP #### [facility] [address] [place] [address] Dr. Angela Aguero Neutrophils/100 WBC (Bld) 89.3 % Critically high 43.0-75.0 [facility] Comment on above: Performed By: #### L IPA, NGA, CMP #### [facility] [address] [address] [address] Angela Aguero Platelet mean volume (Bld) [Entitic vol] 10.6 fL Normal 9.5-13.5 [facility] Comment on above: Performed By: #### L IPA, NGA, CMP #### [facility] [address] [address] [address] Angela Aguero PLT 212 103/ul Normal 150-450 [facility] Comment on above: Performed By: #### L IPA, NGA, CMP #### [facility] [address] [address] [address] Angela Aguero RBC 4.53 106/ul Normal 4.20-5.40 [facility] Comment on above: Performed By: #### L IPA, NGA, CMP #### [facility] [address] [place] [address] Dr. Angela Aguero WBC 3.5 103/ul Critically low 4.0-11.0 [facility] Comment on above: Performed By: #### L IPA, NGA, CMP #### [facility] [address] [place] [address] Dr. Angela Aguero CRPon 11-19-2021 CRP [Mass/Vol] mg/L Normal <=1.0 [facility] Comment on above: Performed By: #### C MP, NGA, CRP, LIPA #### [facility] [address] [address] [address] Angela Aguero ER URINE PROFILEon 2 Bilirubin Ql (U) Negative Normal NEGATIVE [facility] Comment on above: Performed By: #### L IPA, NGA, CMP #### [facility] [address] [place] [address] Dr. Angela Aguero Clarity (U) CLEAR Normal CLEAR [facility] Comment on above: Performed By: #### L IPA, NGA, CMP #### [facility] [address] [place] [address] Dr. Angela Aguero Color (U) DK. ORANGE Abnormal YELLOW [facility] Comment on above: Performed By: #### L IPA NGA, CMP #### [facility] [address] [address] [address] Angela CARRASCO A micrscopic examina tion will be performed if indicated. Normal [facility] Comment on above: Performed By: #### L IPA NGA, CMP #### [facility] [address] [address] [address] Angela Aguero Glucose Ql (U) Negative Normal NEGATIVE [facility] Comment on above: Performed By: #### L IPA NGA, CMP #### [facility] [address] [address] [address] Angela Aguero Hemoglobin Ql (U) Negative Normal NEGATIVE [facility] Comment on above: Performed By: #### L IPA NGA, CMP #### [facility] [address] [place] [address] Dr. Angela Aguero Ketones Ql (U) 40 mg/dl Abnormal NEGATIVE [facility] Comment on above: Performed By: #### L IPA NGA, CMP #### [facility] [address] [place] [address] Dr. Angela Aguero LEUKOCYTES Negative Normal NEGATIVE [facility] Comment on above: Performed By: #### L IPA NGA, CMP #### [facility] [address] [place] [address] Dr. Angela Aguero Nitrite Ql (U) Negative Normal NEGATIVE [facility] Comment on above: Performed By: #### L IPA NGA, CMP #### [facility] [address] [place] [address] Dr. Angela Aguero pH (U) 5.5 [pH] Normal 5-9 [facility] Comment on above: Performed By: #### L IPA NGA, CMP #### [facility] [address] [place] [address] Dr. Angela Aguero Protein (U) [Mass/Vol] 30 mg/dL Abnormal NEGAT DARIO/ TRACE [facility] Comment on above: Performed By: #### L IPA NGA, CMP #### [facility] [address] [place] [address] Dr. Angela Aguero SPEC GRAVITY >=1.030 Abnormal 1.005-<=1. 025 [facility] Comment on above: Performed By: #### L IPANGA, CMP #### [facility] [address] [place] [address] Dr. Angela Aguero UR MICRO IND INDICATED Normal [facility] Comment on above: Performed By: #### L IPA NGA, CMP #### [facility] [address] [place] [address] Dr. Angela Aguero Urobilinogen Qn (U) 1.0 {Concetta'U}/dL Normal 0.2 - 1. 0 [facility] Comment on above: Performed By: #### L IPA NGA, CMP #### [facility] [address] [place] [address] Dr. Angela Aguero LIPASEon 11-19-2021 Lipase [Catalytic activity/Vol] 22.0 U/L Critically low 73.0-393.0 [facility] Comment on above: Performed By: #### C MP, NGA, CRP, LIPA #### [facility] [address] [place] [address] Dr. Angeal Aguero PROF 14(COMP METB)on 022 Albumin [Mass/Vol] 3.7 g/dL Normal 3.4-5.0 [facility] Comment on above: Performed By: #### C MP, NGA, CRP, LIPA #### [facility] [address] [place] [address] Dr. Angela Aguero Albumin/Globulin [Mass ratio] 1.0 {ratio} Normal [facility] Comment on above: Performed By: #### C MP, NGA, CRP, LIPA #### [facility] [address] [place] [address] Dr. Angela Aguero ALP [Catalytic activity/Vol] 73 U/L Normal 46-116 [facility] Comment on above: Performed By: #### C MP, NGA, CRP, LIPA #### [facility] [address] [place] [address] Dr. Angela Aguero ALT [Catalytic activity/Vol] 78 U/L Critically high 14-59 [facility] Comment on above: Performed By: #### C MP, NGA, CRP, LIPA #### [facility] [address] [address] [address] Angela Aguero Anion gap [Moles/Vol] 16.5 mmol/L Normal [facility] Comment on above: Performed By: #### C MP, NGA, CRP, LIPA #### [facility] [address] [address] [address] Angela Aguero AST [Catalytic activity/Vol] 62 U/L Critically high 15-37 [facility] Comment on above: Performed By: #### C MP, NGA, CRP, LIPA #### [facility] [address] [place] [address] Dr. Angela Aguero Bilirubin [Mass/Vol] 1.3 mg/dL Critically high 0.2-1.0 [facility] Comment on above: Performed By: #### C MP, NGA, CRP, LIPA #### [facility] [address] [place] [address] Dr. Angela Aguero Calcium [Mass/Vol] 8.2 mg/dL Critically low 8.5-10.1 [facility] Comment on above: Performed By: #### C MP, NGA, CRP, LIPA #### [facility] [address] [place] [address] Dr. Angela Aguero Chloride [Moles/Vol] 101 mmol/L Normal 98-107 [facility] Comment on above: Performed By: #### C MP, NGA, CRP, LIPA #### [facility] [address] [place] [address] Dr. Angela Aguero CO2 [Moles/Vol] 23.5 mmol/L Normal 21.0-32.0 [facility] Comment on above: Performed By: #### C MP, NGA, CRP, LIPA #### [facility] [address] [place] [address] Dr. Angela Aguero Creatinine [Mass/Vol] 0.81 mg/dL Normal 0.55-1.02 [facility] Comment on above: Performed By: #### C MP, NGA, CRP, LIPA #### [facility] [address] [address] [address] Angela Aguero EGFR-AF NEW ZEALANDER >60 Normal >=60 [facility] Comment on above: Performed By: #### C MP, NGA, CRP, LIPA #### [facility] [address] [address] [address] Angela Aguero EGFR-NON AF [place] ZEALANDER >60 Normal >=60 [facility] Comment on above: Performed By: #### C MP, NGA, CRP, LIPA #### [facility] [address] [address] [address] Angela Aguero Globulin (S) [Mass/Vol] 3.7 g/dL Normal [facility] Comment on above: Performed By: #### C MP, NGA, CRP, LIPA #### [facility] [address] [address] [address] Angela Aguero Glucose [Mass/Vol] 190 mg/dL Critically high 74-106 [facility] Comment on above: Performed By: #### C MP, NGA, CRP, LIPA #### [facility] [address] [address] [address] Angela Aguero Potassium [Moles/Vol] 4.0 mmol/L Normal 3.5-5.1 [facility] Comment on above: Performed By: #### C MP, NGA, CRP, LIPA #### [facility] [address] [address] [address] Angela Aguero Protein [Mass/Vol] 7.4 g/dL Normal 6.4-8.2 [facility] Comment on above: Performed By: #### C MP, NGA, CRP, LIPA #### [facility] [address] [place] [address] Dr. Angela Aguero Sodium [Moles/Vol] 137 mmol/L Normal 136-145 [facility] Comment on above: Performed By: #### C MP, NGA, CRP, LIPA #### [facility] [address] [place] [address] Dr. Angela Aguero Urea nitrogen [Mass/Vol] 5.0 mg/dL Critically low 7.0-18.0 [facility] Comment on above: Performed By: #### C MP, NGA, CRP, LIPA #### [facility] [address] [place] [address] Dr. Angela Aguero Urea nitrogen/Creatinine [Mass ratio] 6.2 mg/mg Normal [facility] Comment on above: Performed By: #### C MP, NGA, CRP, LIPA #### [facility] [address] [place] [address] Dr. Angela Aguero SED RATE WESTERGRENon 2021 SED RATE 10 mm/hr Normal <=20 [facility] Comment on above: Performed By: #### L NGA SMITH, CMP #### [facility] [address] [place] [address] Dr. Angela Aguero URINE MICROSCOPIC ONLYon BACTERIA TRACE Abnormal NONE SEEN [facility] Comment on above: Performed By: #### L NGA SMITH, CMP #### [facility] [address] [place] [address] Dr. Angela Aguero Bacteria identified Cx Nom (U) NOT INDICATED Normal [facility] Comment on above: Performed By: #### L NGA SMITH, CMP #### [facility] [address] [place] [address] Dr. Angela Aguero CAST SEEN Abnormal NONE SEEN [facility] Comment on above: Performed By: #### L LUIS NGA, CMP #### [facility] [address] [place] [address] Dr. Angela Aguero Crystals LM Nom (Urine sed) NONE SEEN Normal NONE SEEN [facility] Comment on above: Performed By: #### L NGA SMITH, CMP #### [facility] [address] [place] [address] Dr. Angela Aguero Epithelial cells LM Ql (Urine sed) RARE Normal NONE SEEN /RARE [facility] Comment on above: Performed By: #### L IPA NGA, CMP #### [facility] [address] [place] [address] Dr. Angela Aguero FINE GRANULAR CAST RARE Normal [facility] Comment on above: Performed By: #### L IPA, NGA, CMP #### [facility] [address] [address] [address] Angela Aguero HYALINE CAST RARE Normal [facility] Comment on above: Performed By: #### L IPA, NGA, CMP #### [facility] [address] [address] [address] Angela Aguero MUCOUS TRACE Abnormal NONE SEEN [facility] Comment on above: Performed By: #### L IPA, NGA, CMP #### [facility] [address] [address] [address] Angela Aguero RBC NONE SEEN Abnormal 0-2 [facility] Comment on above: Performed By: #### L IPA NGA, CMP #### [facility] [address] [place] [address] Dr. Angela Aguero WBC NONE SEEN Normal NONE SEEN [facility] Comment on above: Performed By: #### L IPA NGA, CMP #### [facility] [address] [place] [address] Dr. Angela Aguero AMYLASEon 11-18-2021 Amylase [Catalytic activity/Vol] 20 U/L Critically low 25-115 [facility] Comment on above: Performed By: #### L IPA NGA, CMP #### [facility] [address] [place] [address] Dr. Angela Aguero BILIRUBIN CONJUGATED (DIRECT )on 11-18-2021 BILI, CONJUGATED 0.4 mg/dL Critically high 0.0-0.2 [facility] Comment on above: Performed By: #### L IPA NGA, CMP #### [facility] [address] [address] [address] Angela Aguero CBC AUTO DIFFon 11-18-2021 BASO # 0.1 103/ul Normal 0.0-0.1 [facility] Comment on above: Performed By: #### L IPA NGA, CMP #### [facility] [address] [address] [address] Angela Aguero Basophils/100 WBC (Bld) 2.4 % Critically high 0.2-2.0 [facility] Comment on above: Performed By: #### L NGA SMITH, CMP #### [facility] [address] [place] [address] Dr. Angela Aguero EO # 0.0 103/ul Normal 0.0-0.7 [facility] Comment on above: Performed By: #### L NGA SMITH, CMP #### [facility] [address] [place] [address] Dr. Angela Aguero Eosinophils/100 WBC (Bld) 0.2 % Critically low 0.9-7.0 [facility] Comment on above: Performed By: #### L NGA SMITH CMP #### [facility] [address] [place] [address] Dr. Angela Aguero Erythrocyte distribution width (RBC) [Ratio] 12.8 % Normal 11.0-15.0 [facility] Comment on above: Performed By: #### L NGA SMITH CMP #### [facility] [address] [place] [address] Dr. Angela Aguero Hematocrit (Bld) [Volume fraction] 47.4 % Normal 36.0-48.0 [facility] Comment on above: Performed By: #### L NGA SMITH CMP #### [facility] [address] [place] [address] Dr. Angela Aguero Hemoglobin (Bld) [Mass/Vol] 16.6 g/dL Critically high 12.0-16.0 [facility] Comment on above: Performed By: #### L NGA MSITH, CMP #### [facility] [address] [place] [address] Dr. Angela Aguero IG # 0.02 10e3/ul Normal 0.00-0.03 [facility] Comment on above: Performed By: #### L NGA SMITH, CMP #### [facility] [address] [place] [address] Dr. Angela Aguero IG % 0.4 % Normal 0.0-0.5 [facility] Comment on above: Performed By: #### L NGA SMITH, CMP #### [facility] [address] [address] [address] Angela Aguero LYMPH # 0.9 103/ul Critically low 1.2-3.8 [facility] Comment on above: Performed By: #### L NGA SMITH, CMP #### [facility] [address] [address] [address] Angela Aguero Lymphocytes/100 WBC (Bld) 17.2 % Critically low 20.5-60.0 [facility] Comment on above: Performed By: #### L NGA SMITH, CMP #### [facility] [address] [address] [address] Angela Aguero MANUAL DIFF REQ NO Normal [facility] Comment on above: Performed By: #### L NGA SMITH, CMP #### [facility] [address] [place] [address] Dr. Angela Aguero MCH (RBC) [Entitic mass] 32.4 pg Normal 26.7-34.0 [facility] Comment on above: Performed By: #### L NGA SMITH, CMP #### [facility] [address] [place] [address] Dr. Angela Aguero MCHC (RBC) [Mass/Vol] 35.0 g/dL Normal 29.9-35.2 [facility] Comment on above: Performed By: #### L NGA SMITH, CMP #### [facility] [address] [place] [address] Dr. Angela Aguero MCV (RBC) [Entitic vol] 92.4 fL Normal 81.0-99.0 [facility] Comment on above: Performed By: #### L NGA SMITH, CMP #### [facility] [address] [place] [address] Dr. Angela Aguero MONO # 0.6 103/ul Normal 0.3-0.8 [facility] Comment on above: Performed By: #### L NGA SMITH, CMP #### [facility] [address] [place] [address] Dr. Angela Aguero Monocytes/100 WBC (Bld) 10.7 % Normal 1.7-12.0 [facility] Comment on above: Performed By: #### L NGA SMITH, CMP #### [facility] [address] [place] [address] Dr. Angela Aguero NEUT # 3.7 103/ul Normal 1.4-6.5 [facility] Comment on above: Performed By: #### L NGA SMITH, CMP #### [facility] [address] [place] [address] Dr. Angela Aguero Neutrophils/100 WBC (Bld) 69.1 % Normal 43.0-75.0 [facility] Comment on above: Performed By: #### L NGA SMITH, CMP #### [facility] [address] [place] [address] Dr. Angela Aguero Platelet mean volume (Bld) [Entitic vol] 10.1 fL Normal 9.5-13.5 [facility] Comment on above: Performed By: #### L NGA SMITH, CMP #### [facility] [address] [place] [address] Dr. Angela Aguero PLT 279 103/ul Normal 150-450 [facility] Comment on above: Performed By: #### L NGA SMITH, CMP #### [facility] [address] [place] [address] Dr. Angela Aguero RBC 5.13 106/ul Normal 4.20-5.40 [facility] Comment on above: Performed By: #### L NGA SMITH, CMP #### [facility] [address] [place] [address] Dr. Angela Aguero WBC 5.4 103/ul Normal 4.0-11.0 [facility] Comment on above: Performed By: #### L NGA SMITH, CMP #### [facility] [address] [place] [address] Dr. Angela Aguero Covid-19 PCR ([facility])on 11-07 SARS-CoV-2 (COVID-19) RNA GOPAL+probe Ql (Unsp spec) Not detected Normal NOT DETECTED [facility] Comment on above: Result Comment: When [...] for this test is supported by the [place] [employer] and Human [employer]'s declaration that [...] By: #### L NGA SMITH, CMP #### [facility] [address] [place] [address] Dr. Angela Aguero LIPASEon 11-18-2021 Lipase [Catalytic activity/Vol] 25.0 U/L Critically low 73.0-393.0 [facility] Comment on above: Performed By: #### L NGA SMITH, CMP #### [facility] [address] [place] [address] Dr. Angela Aguero PROF 14(COMP METB)on 022 Albumin [Mass/Vol] 4.4 g/dL Normal 3.4-5.0 [facility] Comment on above: Performed By: #### L NGA SMITH, CMP #### [facility] [address] [place] [address] Dr. Angela Aguero Albumin/Globulin [Mass ratio] 1.1 {ratio} Normal [facility] Comment on above: Performed By: #### L NGA SMITH, CMP #### [facility] [address] [place] [address] Dr. Angela Aguero ALP [Catalytic activity/Vol] 83 U/L Normal 46-116 [facility] Comment on above: Performed By: #### L NGA SMITH, CMP #### [facility] [address] [place] [address] Dr. Angela Aguero ALT [Catalytic activity/Vol] 95 U/L Critically high 14-59 [facility] Comment on above: Performed By: #### L NGA SMITH, CMP #### [facility] [address] [place] [address] Dr. Angela Aguero Anion gap [Moles/Vol] 20.2 mmol/L Normal Th [facility] Comment on above: Performed By: #### L NGA SMITH, CMP #### [facility] [address] [place] [address] Dr. Angela Aguero AST [Catalytic activity/Vol] 84 U/L Critically high 15-37 [facility] Comment on above: Performed By: #### L NGA SMITH, CMP #### [facility] [address] [place] [address] Dr. Angela Aguero Bilirubin [Mass/Vol] 1.1 mg/dL Critically high 0.2-1.0 [facility] Comment on above: Performed By: #### L NGA SMITH, CMP #### [facility] [address] [place] [address] Dr. Angela Aguero Calcium [Mass/Vol] 8.9 mg/dL Normal 8.5-10.1 [facility] Comment on above: Performed By: #### L NGA SMITH, CMP #### [facility] [address] [place] [address] Dr. Angela Aguero Chloride [Moles/Vol] 99 mmol/L Normal 98-107 [facility] Comment on above: Performed By: #### L NGA SMITH, CMP #### [facility] [address] [place] [address] Dr. Angela Aguero CO2 [Moles/Vol] 23.3 mmol/L Normal 21.0-32.0 [facility] Comment on above: Performed By: #### L NGA SMITH, CMP #### [facility] [address] [place] [address] Dr. Angela Aguero Creatinine [Mass/Vol] 0.97 mg/dL Normal 0.55-1.02 [facility] Comment on above: Performed By: #### L NGA SMITH, CMP #### [facility] [address] [address] [address] Angela Aguero EGFR-AF NEW ZEALANDER >60 Normal >=60 [facility] Comment on above: Performed By: #### L NGA SMITH, CMP #### [facility] [address] [address] [address] Angela Aguero EGFR-NON AF NEW ZEALANDER >60 Normal >=60 [facility] Comment on above: Performed By: #### L NGA SMITH, CMP #### [facility] [address] [address] [address] Angela Aguero Globulin (S) [Mass/Vol] 3.9 g/dL Normal [facility] Comment on above: Performed By: #### L NGA SMITH, CMP #### [facility] [address] [address] [address] Angela Aguero Glucose [Mass/Vol] 170 mg/dL Critically high 74-106 [facility] Comment on above: Performed By: #### L NGA SMITH, CMP #### [facility] [address] [place] [address] Dr. Angela Aguero Potassium [Moles/Vol] 3.5 mmol/L Normal 3.5-5.1 [facility] Comment on above: Performed By: #### L NGA SMITH, CMP #### [facility] [address] [place] [address] Dr. Angela Aguero Protein [Mass/Vol] 8.3 g/dL Critically high 6.4-8.2 [facility] Comment on above: Performed By: #### L NGA SMITH, CMP #### [facility] [address] [place] [address] Dr. Angela Aguero Sodium [Moles/Vol] 139 mmol/L Normal 136-145 [facility] Comment on above: Performed By: #### L NGA SMITH, CMP #### [facility] [address] [place] [address] Dr. Angela Aguero Urea nitrogen [Mass/Vol] 4.0 mg/dL Critically low 7.0-18.0 [facility] Comment on above: Performed By: #### L NGA SMITH, CMP #### [facility] [address] [address] [address] Angela Aguero Urea nitrogen/Creatinine [Mass ratio] 4.1 mg/mg Normal [facility] Comment on above: Performed By: #### L NGA SMITH, CMP #### [facility] [address] [address] [address] ABD/PELV W CONon [...] steatosis. 3. Small hiatal hernia. Normal The [facility] ER URINE PROFILEon 2 Bilirubin Ql (U) Negative Normal NEGATIVE [facility] Comment on above: Performed By: #### L NGA SMITH, CMP #### [facility] [address] [address] [address] Angela Aguero Clarity (U) CLEAR Normal CLEAR [facility] Comment on above: Performed By: #### L NGA SMITH, CMP #### [facility] [address] [address] [address] Angela Aguero Color (U) LT. YELLOW Normal YELLOW [facility] Comment on above: Performed By: #### L IPA NGA, CMP #### [facility] [address] [address] [address] Angela CARRASCO A micrscopic examina tion will be performed if indicated. Normal [facility] Comment on above: Performed By: #### L IPA, NGA, CMP #### [facility] [address] [address] [address] Angela Aguero Glucose Ql (U) Negative Normal NEGATIVE [facility] Comment on above: Performed By: #### L IPA, NGA, CMP #### [facility] [address] [address] [address] Angela Aguero Hemoglobin Ql (U) Negative Normal NEGATIVE [facility] Comment on above: Performed By: #### L IPA NGA, CMP #### [facility] [address] [place] [address] Dr. Angela Aguero Ketones Ql (U) Negative Normal NEGATIVE [facility] Comment on above: Performed By: #### L IPA NGA, CMP #### [facility] [address] [place] [address] Dr. Angela Aguero LEUKOCYTES Negative Normal NEGATIVE [facility] Comment on above: Performed By: #### L IPA NGA, CMP #### [facility] [address] [place] [address] Dr. Angela Aguero Nitrite Ql (U) Negative Normal NEGATIVE [facility] Comment on above: Performed By: #### L IPA NGA, CMP #### [facility] [address] [address] [address] Angela Aguero pH (U) 6.0 [pH] Normal 5-9 [facility] Comment on above: Performed By: #### L IPA NGA, CMP #### [facility] [address] [place] [address] Dr. Angela Aguero SPEC GRAVITY <=1.005 Abnormal 1.005-<=1. 025 [facility] Comment on above: Performed By: #### L IPA NGA, CMP #### [facility] [address] [address] [address] Angela Aguero UA PROTEIN Negative Normal NEGATIVE/ TRACE [facility] Comment on above: Performed By: #### L NGA SMITH, CMP #### [facility] [address] [place] [address] Dr. Angela Aguero UR MICRO IND NOT INDICATED Normal [facility] Comment on above: Performed By: #### L NGA SMITH, CMP #### [facility] [address] [place] [address] Dr. Angela Aguero Urobilinogen Qn (U) 0.2 {Concetta'U}/dL Normal 0.2 - 1. 0 [facility] Comment on above: Performed By: #### L NGA SMITH, CMP #### [facility] [address] [place] [address] Dr. Angela Aguero LACTATE/LACTIC ACIDon 2021 Lactate [Moles/Vol] 1.1 mmol/L Normal 0.4-1.9 [facility] Comment on above: Performed By: #### L NGA SMITH, CMP #### [facility] [address] [place] [address] Dr. Angela Aguero CBC AUTO DIFFon 11-10-2021 BASO # 0.1 103/ul Normal 0.0-0.1 [facility] Comment on above: Performed By: #### L NGA SMITH, CMP #### [facility] [address] [place] [address] Dr. Angela Aguero Basophils/100 WBC (Bld) 1.7 % Normal 0.2-2.0 [facility] Comment on above: Performed By: #### L NGA SMITH, CMP #### [facility] [address] [place] [address] Dr. Angela Aguero EO # 0.1 103/ul Normal 0.0-0.7 [facility] Comment on above: Performed By: #### L LUIS NGA, CMP #### [facility] [address] [place] [address] Dr. Angela Aguero Eosinophils/100 WBC (Bld) 1.0 % Normal 0.9-7.0 [facility] Comment on above: Performed By: #### L NGA SMITH, CMP #### [facility] [address] [place] [address] Dr. Angela Aguero Erythrocyte distribution width (RBC) [Ratio] 13.1 % Normal 11.0-15.0 [facility] Comment on above: Performed By: #### L NGA SMITH, CMP #### [facility] [address] [place] [address] Dr. Angela Aguero Hematocrit (Bld) [Volume fraction] 46.8 % Normal 36.0-48.0 [facility] Comment on above: Performed By: #### L NGA SMITH, CMP #### [facility] [address] [place] [address] Dr. Angela Aguero Hemoglobin (Bld) [Mass/Vol] 16.3 g/dL Critically high 12.0-16.0 [facility] Comment on above: Performed By: #### L NGA SMITH, CMP #### [facility] [address] [place] [address] Dr. Angela Aguero IG # 0.02 10e3/ul Normal 0.00-0.03 [facility] Comment on above: Performed By: #### L NGA SMITH, CMP #### [facility] [address] [place] [address] Dr. Angela Aguero IG % 0.3 % Normal 0.0-0.5 [facility] Comment on above: Performed By: #### L NGA SMITH, CMP #### [facility] [address] [place] [address] Dr. Angela Aguero LYMPH # 1.3 103/ul Normal 1.2-3.8 [facility] Comment on above: Performed By: #### L NGA SMITH, CMP #### [facility] [address] [place] [address] Dr. Angela Aguero Lymphocytes/100 WBC (Bld) 20.9 % Normal 20.5-60.0 [facility] Comment on above: Performed By: #### L NGA SMITH, CMP #### [facility] [address] [place] [address] Dr. Angela Aguero MANUAL DIFF REQ NO Normal The [facility] Comment on above: Performed By: #### L NGA SMITH, CMP #### [facility] [address] [place] [address] Dr. Angela Aguero MCH (RBC) [Entitic mass] 32.2 pg Normal 26.7-34.0 [facility] Comment on above: Performed By: #### L NGA SMITH, CMP #### [facility] [address] [place] [address] Dr. Angela Aguero MCHC (RBC) [Mass/Vol] 34.8 g/dL Normal 29.9-35.2 [facility] Comment on above: Performed By: #### L NGA SMITH, CMP #### [facility] [address] [place] [address] Dr. Angela Aguero MCV (RBC) [Entitic vol] 92.5 fL Normal 81.0-99.0 [facility] Comment on above: Performed By: #### L NGA SMTIH, CMP #### [facility] [address] [place] [address] Dr. Angela Aguero MONO # 0.6 103/ul Normal 0.3-0.8 [facility] Comment on above: Performed By: #### L NGA SMITH, CMP #### [facility] [address] [place] [address] Dr. Angela Aguero Monocytes/100 WBC (Bld) 10.7 % Normal 1.7-12.0 [facility] Comment on above: Performed By: #### L NGA SMITH, CMP #### [facility] [address] [place] [address] Dr. Angela Aguero NEUT # 3.9 103/ul Normal 1.4-6.5 [facility] Comment on above: Performed By: #### L NGA SMITH, CMP #### [facility] [address] [place] [address] Dr. Angela Aguero Neutrophils/100 WBC (Bld) 65.4 % Normal 43.0-75.0 [facility] Comment on above: Performed By: #### L NGA SMITH, CMP #### [facility] [address] [address] [address] Angela Aguero Platelet mean volume (Bld) [Entitic vol] 9.6 fL Normal 9.5-13.5 [facility] Comment on above: Performed By: #### L NGA SMITH, CMP #### [facility] [address] [address] [address] Angela Aguero PLT 224 103/ul Normal 150-450 [facility] Comment on above: Performed By: #### L NGA SMITH, CMP #### [facility] [address] [address] [address] Angela Aguero RBC 5.06 106/ul Normal 4.20-5.40 [facility] Comment on above: Performed By: #### L NGA SMITH, CMP #### [facility] [address] [place] [address] Dr. Angela Aguero WBC 6.0 103/ul Normal 4.0-11.0 [facility] Comment on above: Performed By: #### L NGA SMITH, CMP #### [facility] [address] [place] [address] Dr. Angela Aguero LACTATE/LACTIC ACIDon 2021 Lactate [Moles/Vol] 3.7 mmol/L Critically high 0.4-1.9 [facility] Comment on above: Performed By: #### L NGA SIMTH, CMP #### [facility] [address] [place] [address] Dr. Angela Aguero LIPASEon 11-10-2021 Lipase [Catalytic activity/Vol] 33.0 U/L Critically low 73.0-393.0 [facility] Comment on above: Performed By: #### L NGA SMITH, CMP #### [facility] [address] [place] [address] Dr. Angela Aguero PREG HCG QUALon 11-10-2021 , QUAL Negative Normal NEGATIVE [facility] Comment on above: Performed By: #### P REG #### [facility] [address] [place] [address] Dr. Angela Aguero PROF 14(COMP METB)on 022 Albumin [Mass/Vol] 4.5 g/dL Normal 3.4-5.0 [facility] Comment on above: Performed By: #### L NGA SMITH, CMP #### [facility] [address] [address] [address] Angela Aguero Albumin/Globulin [Mass ratio] 1.1 {ratio} Normal [facility] Comment on above: Performed By: #### L NGA SMITH, CMP #### [facility] [address] [address] [address] Angela Aguero ALP [Catalytic activity/Vol] 112 U/L Normal 46-116 [facility] Comment on above: Performed By: #### L NGA SMITH, CMP #### [facility] [address] [address] [address] Angela Aguero ALT [Catalytic activity/Vol] 154 U/L Critically high 14-59 [facility] Comment on above: Performed By: #### L NGA SMITH, CMP #### [facility] [address] [address] [address] Angela Aguero Anion gap [Moles/Vol] 17.8 mmol/L Normal [facility] Comment on above: Performed By: #### L NGA SMITH, CMP #### [facility] [address] [place] [address] Dr. Angela Aguero AST [Catalytic activity/Vol] 112 U/L Critically high 15-37 [facility] Comment on above: Performed By: #### L NGA SMITH, CMP #### [facility] [address] [address] [address] Angela Aguero Bilirubin [Mass/Vol] 0.7 mg/dL Normal 0.2-1.0 [facility] Comment on above: Performed By: #### L NGA SMITH, CMP #### [facility] [address] [address] [address] Angela Aguero Calcium [Mass/Vol] 9.7 mg/dL Normal 8.5-10.1 [facility] Comment on above: Performed By: #### L NGA SMITH, CMP #### [facility] [address] [address] [address] Angela Aguero Chloride [Moles/Vol] 102 mmol/L Normal 98-107 [facility] Comment on above: Performed By: #### L NGA SMITH, CMP #### [facility] [address] [address] [address] Angela Aguero CO2 [Moles/Vol] 26.6 mmol/L Normal 21.0-32.0 [facility] Comment on above: Performed By: #### L NGA SMITH, CMP #### [facility] [address] [address] [address] Angela Aguero Creatinine [Mass/Vol] 1.00 mg/dL Normal 0.55-1.02 [facility] Comment on above: Performed By: #### L NGA SMITH, CMP #### [facility] [address] [place] [address] Dr. Angela Aguero EGFR-AF NEW ZEALANDER >60 Normal >=60 [facility] Comment on above: Performed By: #### L NGA SMITH, CMP #### [facility] [address] [place] [address] Dr. Angela Aguero EGFR-NON AF NEW ZEALANDER >60 Normal >=60 [facility] Comment on above: Performed By: #### L NGA SMITH, CMP #### [facility] [address] [place] [address] Dr. Angela Aguero Globulin (S) [Mass/Vol] 4.1 g/dL Normal [facility] Comment on above: Performed By: #### L NGA SMITH, CMP #### [facility] [address] [place] [address] Dr. Angela Aguero Glucose [Mass/Vol] 170 mg/dL Critically high 74-106 [facility] Comment on above: Performed By: #### L NGA SMITH, CMP #### [facility] [address] [place] [address] Dr. Angela Aguero Potassium [Moles/Vol] 3.4 mmol/L Critically low 3.5-5.1 [facility] Comment on above: Performed By: #### L NGA SMITH, CMP #### [facility] [address] [place] [address] Dr. Angela Aguero Protein [Mass/Vol] 8.6 g/dL Critically high 6.4-8.2 [facility] Comment on above: Performed By: #### L NGA SMITH, CMP #### [facility] [address] [place] [address] Dr. Angela Aguero Sodium [Moles/Vol] 143 mmol/L Normal 136-145 [facility] Comment on above: Performed By: #### L NGA SMITH, CMP #### [facility] [address] [place] [address] Dr. Angela Aguero Urea nitrogen [Mass/Vol] 4.0 mg/dL Critically low 7.0-18.0 [facility] Comment on above: Performed By: #### L NGA SMITH, CMP #### [facility] [address] [place] [address] Dr. Angela Aguero Urea nitrogen/Creatinine [Mass ratio] 4.0 mg/mg Normal [facility] Comment on above: Performed By: #### L NGA SMITH, CMP #### [facility] [address] [place] [address] Dr. Angela Aguero PROTIMEon 11-10-2021 INR Coag (PPP) [Relative time] 1.13 {INR} Normal [facility] Comment on above: Performed By: #### L NGA SMITH, CMP #### [facility] [address] [place] [address] Dr. Angela Aguero INR GUIDELINES SEE BELOW Normal [facility] Comment on above: Result Comment: VARSHA RED INR: 2.0 - 3.0 CONDITIONS NOT LISTED BELOW 2.5 - 3.5 FOR PROSTHETIC HEART VALVE REPLACEMENT 2.5 - 3.5 RECURRENT THROMBOSIS Performed By: #### L NGA SMITH, CMP #### [facility] [address] [place] [address] Dr. Angela Aguero PT Coag (PPP) [Time] 12.1 s Critically high 9.0-11.6 [facility] Comment on above: Performed By: #### L NGA SMITH, CMP #### [facility] [address] [place], [place] [address] Dr. Angela Aguero PTTon 11-10-2021 aPTT Coag (Bld) [Time] 30.2 s Normal 22.3-36.2 Th e [facility] Comment on above: Performed By: #### L NGA SMITH, CMP #### [facility] [address] [place], [place] [address] Dr. Angela Aguero Automated epithelial cells c ount in urine sediment (number/area)Ordered By: Hal Orozco on 11-06-2021 Epithelial cells Auto (Urine sed) [#/Area] 10-19 [HPF] 0-2 [facility] Automated erythrocytes count in urine sediment (number/area)Ordered By: Hal Orozco on 11-06-2021 RBC Auto (Urine sed) [#/Area] 0-1 [HPF] 0-4 [facility] Automated leukocytes count i n urine sediment (number/area)Ordered By: Hal Orozco on 11-06-2021 WBC Auto (Urine sed) [#/Area] 1-2 [HPF] 0-4 [facility] Basophils Auto (Bld) [#/Vol] Ordered By: Hal Orozco on 11-06-2021 Basophils (Bld) [#/Vol] 0.0 10*3/uL 0.0-0.2 [facility] Basophils/100 WBC Auto (Bld) Ordered By: Hal Orozco on 11-06-2021 Basophils/100 WBC (Bld) 0.3 % . [facility] Bilirubin Auto test strip Ql (U)Ordered By: Hal Orozco on 11-06-2021 Bilirubin Ql (U) 1+ Negative [facility] Blood hemoglobin measurement (mass/volume)Ordered By: Hal Orozco on 11-06-2021 Hemoglobin (Bld) [Mass/Vol] 15.7 g/dL 11.8-15.4 [facility] Blood leukocytes automated c ount (number/volume)Ordered By: Hal Orozco on 11-06-2021 WBC (Bld) [#/Vol] 9.8 10*3/uL 4.5-11.0 [facility] Body fluid albumin measureme nt (mass/volume)Ordered By: Hal Orozco on 11-06-2021 Albumin (Body fld) [Mass/Vol] 4.7 g/dL 3.2-5.5 [facility] Creatinine and Glomerular fi ltration rate.predicted panel (S/P/Bld)Ordered By: Hal Orozco on 11-06-2021 Creatinine [Mass/Vol] 0.99 mg/dL 0.44-1.03 [facility] Direct bilirubin measurement Ordered By: Hal Orozco on 11-06-2021 Bilirubin.direct [Mass/Vol] 0.3 mg/dL 0.0-0.4 [facility] Eosinophils Auto (Bld) [#/Vo l]Ordered By: Hal Orozco on 11-06-2021 Eosinophils (Bld) [#/Vol] 0.0 10*3/uL 0.0-0.45 [facility] Eosinophils/100 WBC Auto (Bl d)Ordered By: Hal Orozco on 11-06-2021 Eosinophils/100 WBC (Bld) 0.0 % . [facility] Erythrocyte distribution wid th Auto (RBC) [Ratio]Ordered By: Hal Orozco on 11-06-2021 Erythrocyte distribution width (RBC) [Ratio] 14.3 % 11.9-15.3 [facility] Estimated glomerular filtrat ion rate (GFR) non- AmericanOrdered By: Hal Orozco on 11-06-2021 GFR/1.73 sq M.predicted among non-blacks MDRD (S/P/Bld) [Vol rate/Area] > 60 mL/Min [facility] Globulin Calc (S) [Mass/Vol] Ordered By: Hal Orozco on 11-06-2021 Globulin (S) [Mass/Vol] 3.4 g/dL [facility] HCG ( test) IA.rapi d Ql (U)Ordered By: Hal Orozco on 11-06-2021 HCG ( test) Ql (U) Negative [facility] Hematocrit Auto (Bld) [Volum e fraction]Ordered By: Hal Orozco on 11-06-2021 Hematocrit (Bld) [Volume fraction] 45.7 % 34.0-46.4 [facility] Ketones Auto test strip (U) [Mass/Vol]Ordered By: Hal Orozco on 11-06-2021 Ketones (U) [Mass/Vol] 1+ Negative [facility] - Chemistry and C hemistry - challengeOrdered By: Hal Orozco on 11-06-2021 Lipase [Catalytic activity/Vol] 18.0 U/L 22-51 [facility] - Hematology and Cell countsOrdered By: Hal Orozco on 11-06-2021 Nucleated RBC/100 WBC (Bld) [Ratio] 0.1 % 0-0.5 [facility] Lymphocytes Auto (Bld) [#/Vo l]Ordered By: Hal Orozco on 11-06-2021 Lymphocytes (Bld) [#/Vol] 0.4 10*3/uL 1.00-4.8 [facility] Lymphocytes/100 WBC Auto (Bl d)Ordered By: Hal Orozco on 11-06-2021 Lymphocytes/100 WBC (Bld) 3.8 % . [facility] MCH Auto (RBC) [Entitic mass ]Ordered By: Hal Orozco on 11-06-2021 MCH (RBC) [Entitic mass] 32.4 pg 24.7-34.3 [facility] MCHC Auto (RBC) [Mass/Vol]Or dered By: Hal Orozco on 11-06-2021 MCHC (RBC) [Mass/Vol] 34.4 g/dL 32.0-35.0 [facility] MCV Auto (RBC) [Entitic vol] Ordered By: Hal Orozco on 11-06-2021 MCV (RBC) [Entitic vol] 94.2 fL 80-100 [facility] Monocytes Auto (Bld) [#/Vol] Ordered By: Hal Orozco on 11-06-2021 Monocytes (Bld) [#/Vol] 0.3 10*3/uL 0.0-0.8 [facility] Monocytes/100 WBC Auto (Bld) Ordered By: Hal Orozco on 11-06-2021 Monocytes/100 WBC (Bld) 2.9 % . [facility] Mucus LM Ql (Urine sed)Order ed By: Hal Orozco on 11-06-2021 Mucus Ql (Urine sed) 2+ [LPF] [facility] Neutrophils Auto (Bld) [#/Vo l]Ordered By: Hal Orozco on 11-06-2021 Neutrophils (Bld) [#/Vol] 9.1 10*3/uL 1.8-7.7 [facility] Neutrophils/100 WBC Auto (Bl d)Ordered By: Hal Orozco on 11-06-2021 Neutrophils/100 WBC (Bld) 93.0 % . [facility] No Panel InformationOrdered By: Hal Orozco on 11-06-2021 Estimated GFR () > 60 mL/Min [facility] Comment on above: GFR estimated refere nce range: According to KDOQI guidelines, <60 ml/min/1.73m2 is sufficient to diagnose a patient with chronic kidney disease. Pharmacy Creatinine Clearance (Chem 72.84 [facility] Platelet mean volume Auto (B ld) [Entitic vol]Ordered By: Hal Orozco on 11-06-2021 Platelet mean volume (Bld) [Entitic vol] 7.5 fL 6.3-10.7 [facility] Platelets Auto (Bld) [#/Vol] Ordered By: Hal Orozco on 11-06-2021 Platelets (Bld) [#/Vol] 270 10*3/uL 150-450 [facility] Protein Auto test strip (U) [Mass/Vol]Ordered By: Hal Orozco on 11-06-2021 Protein (U) [Mass/Vol] 30 mg/dL Negative [facility] Protein [Mass/volume] in Ser um or PlasmaOrdered By: Hal Orozco on 11-06-2021 Protein [Mass/Vol] 8.1 g/dL 6.1-7.9 [facility] RBC Auto (Bld) [#/Vol]Ordere d By: Hal Orozco on 11-06-2021 RBC (Bld) [#/Vol] 4.85 10*6/uL 3.60-5.00 [facility] Serum or plasma alanine montes otransferase measurement without P-5'-P (enzymatic activiOrdered By: Hal Orozco on 11-06-2021 ALT No additional P-5'-P [Catalytic activity/Vol] 64 U/L 10-60 [facility] Serum or plasma albumin/glob ulin mass ratioOrdered By: Hal Orozco on 11-06-2021 Albumin/Globulin [Mass ratio] 1.4 {ratio} [facility] Serum or plasma alkaline florencio sphatase measurement (enzymatic activity/volume)Ordered By: Hal Orozco on 11-06-2021 ALP [Catalytic activity/Vol] 75 U/L 32-92 [facility] Serum or plasma aspartate am inotransferase measurement (enzymatic activity/volume)Ordered By: Hal Orozco on 11-06-2021 AST [Catalytic activity/Vol] 101 U/L 10-42 [facility] Serum or plasma calcium archie urement (mass/volume)Ordered By: Hal Orozco on 11-06-2021 Calcium [Mass/Vol] 9.3 mg/dL 8.2-10.2 [facility] Serum or plasma chloride luz surement (moles/volume)Ordered By: Hal Orozco on 11-06-2021 Chloride [Moles/Vol] 101 mmol/L 95-114 [facility] Serum or plasma glucose archie urement (mass/volume)Ordered By: Hal Orozco on 11-06-2021 Glucose [Mass/Vol] 205 mg/dL 70-100 [facility] Comment on above: ADA recommended refe [...] Orozco on 11-06-2021 Bilirubin.indirect [Mass/Vol] 1.0 mg/dL [facility] Serum or plasma potassium me asurement (moles/volume)Ordered By: Hal Orozco on 11-06-2021 Potassium [Moles/Vol] 3.8 mmol/L 3.5-5.1 [facility] Serum or plasma sodium measu rement (moles/volume)Ordered By: Hal Orozco on 11-06-2021 Sodium [Moles/Vol] 142 mmol/L 136-146 [facility] Serum or plasma total biliru bin measurement (mass/volume)Ordered By: Hal Orozco on 11-06-2021 Bilirubin [Mass/Vol] 1.3 mg/dL 0.3-1.2 [facility] Comment on above: Samples from patient s who have taken Naproxen have shown spurious elevation in Total Bilirubin levels. A metabolite of Naproxen, O-desmethylnaproxen, has been shown to interfere with the Renetta method for measuring Total Bilirubin. Serum or plasma total carbon dioxide measurement (moles/volume)Ordered By: Hal Orozco on 11-06-2021 CO2 [Moles/Vol] 21.6 mmol/L 22.0-30.0 [facility] Serum or plasma urea nitroge n measurement (mass/volume)Ordered By: Hal Orozco on 11-06-2021 Urea nitrogen [Mass/Vol] 4 mg/dL 9-23 [facility] Urine appearanceOrdered By: Hal Orozco on 11-06-2021 Appearance (U) Clear Clear [facility] Urine bacteria detection by automated methodOrdered By: Hal Orozco on 11-06-2021 Bacteria Auto Ql (U) 1+ None Seen [facility] Urine colorOrdered By: Jimbo Orozco on 11-06-2021 Color (U) Yellow Yellow [facility] Urine glucose measurement by automated test strip (mass/volume)Ordered By: Hal Orozco on 11-06-2021 Glucose Auto test strip (U) [Mass/Vol] Normal mg/dL Normal [facility] Urine hemoglobin detection b y automated test stripOrdered By: Hal Orozco on 11-06-2021 Hemoglobin Auto test strip Ql (U) Negative Negative [facility] Urine leukocyte esterase det ection by automated test stripOrdered By: Hal Orozco on 11-06-2021 Leukocyte esterase Auto test strip Ql (U) Negative Negative [facility] Urine nitrite detection by a utomated test stripOrdered By: Hal Orozco on 11-06-2021 Nitrite Auto test strip Ql (U) Negative Negative [facility] Urobilinogen Auto test strip (U) [Mass/Vol]Ordered By: Hal Orozco on 11-06-2021 Urobilinogen (U) [Mass/Vol] mg/dL Normal [facility] pH Auto test strip (U)Ordere d By: Hal Orozco on 11-06-2021 pH (U) 1.025 [pH] 1.001-1.03 0 [facility] pH (U) 6.5 [pH] 5.0-9.0 [facility] Vital Signs Date Time Vital Sign Value Performing Clinician Facility 01-22-2024 08:00-0400 Body temperature 98.1 [degF] CATIA Blanca Work Phone: [facility] 01-22-2024 08:00-0400 Diastolic blood pressure 78 mm[Hg] CATIA Blanca Work Phone: [facility] 01-22-2024 08:00-0400 Heart rate 116 /min CATIA Blanca Work Phone: [facility] 01-22-2024 08:00-0400 Respiratory rate 18 /min CATIA Blanca Work Phone: [facility] 01-22-2024 08:00-0400 SaO2% (BldA) [Mass fraction] 99 % CATIA Blanca Work Phone: [facility] 01-22-2024 08:00-0400 Systolic blood pressure 109 mm[Hg] CATIA Blanca Work Phone: [facility] 01-21-2024 10:58-0400 Body weight 62.09 kg CATIA Blanca Work Phone: [facility] 01-18-2024 15:54-0400 Body height 170.18 cm CATIA Blanca Work Phone: [facility] 01-15-2024 10:17-0400 Diastolic blood pressure 108 mm[Hg] CATIA Blanca Work Phone: [facility] 01-15-2024 10:17-0400 Heart rate 73 /min CERTIFIED MEDICAL ASSTTodd Blanca Work Phone: [facility] 01-15-2024 10:17-0400 Respiratory rate 18 /min CERTIFIED MEDICAL ASSTTodd Blanca Work Phone: [facility] 01-15-2024 10:17-0400 SaO2% (BldA) [Mass fraction] 95 % CERTIFIED MEDICAL ASSTTodd Blanca Work Phone: [facility] 01-15-2024 10:17-0400 Systolic blood pressure 148 mm[Hg] CATIA Blanca Work Phone: [facility] 01-15-2024 08:59-0400 Body temperature 98.6 [degF] CATIA Blanca Work Phone: [facility] 06-14-2023 14:27-0500 Body height 167.64 cm CAITA Blanca Work Phone: [facility] 06-14-2023 14:27-0500 Body mass index (BMI) [Ratio] 22 kg/m2 CERTIFIED MEDICAL ASSTTodd Blanca Work Phone: [facility] 06-14-2023 14:27-0500 Body weight 61.91 kg CATIA Blanca Work Phone: [facility] 06-14-2023 14:27-0500 Diastolic blood pressure 85 mm[Hg] CATIA Blanca Work Phone: [facility] 06-14-2023 14:27-0500 Heart rate 94 /min CATIA Blanca Work Phone: [facility] 06-14-2023 14:27-0500 Respiratory rate 18 /min CATIA Blanca Work Phone: [facility] 06-14-2023 14:27-0500 SaO2% (BldA) [Mass fraction] 100 % CERTIFIED MEDICAL ASSTTodd Blanca Work Phone: [facility] 06-14-2023 14:27-0500 Systolic blood pressure 132 mm[Hg] CERTIFIED MEDICAL ASST Avery Blanca Work Phone: [facility] 03-27-2023 10:45-0500 Body height 167.64 cm Becky Scally Other [facility] 03-27-2023 10:45-0500 Body mass index (BMI) [Ratio] 21.93 kg/m2 Becky Scally Other [employer] Other 03-27-2023 10:45-0500 Body weight 61.64 kg Becky Scally Other [facility] 03-27-2023 10:45-0500 Diastolic blood pressure 80 mm[Hg] Becky Scally Other [facility] 03-27-2023 10:45-0500 Respiratory rate 16 /min Becky Scally Other [employer] Other 03-27-2023 10:45-0500 SaO2% (BldA) [Mass fraction] 100 % Becky Scally Other [employer] Other 03-27-2023 10:45-0500 Systolic blood pressure 125 mm[Hg] Becky Scally Other [facility] 02-01-2022 23:07-0400 Diastolic blood pressure 103 mm[Hg] Kaylinn Dokken [facility] 02-01-2022 23:07-0400 Heart rate 67 /min Kaylinn Dokken [facility] 02-01-2022 23:07-0400 Respiratory rate 15 /min Kaylinn Dokken [facility] 02-01-2022 23:07-0400 SaO2% (BldA) [Mass fraction] 97 % Zaireylinn Dokken [facility] 02-01-2022 23:07-0400 Systolic blood pressure 164 mm[Hg] Kaylinn Dokken [facility] 02-01-2022 21:27-0400 Body temperature 98.24 [degF] Zaireylinn Dokken [facility] 02-01-2022 21:27-0400 Diastolic blood pressure 120 mm[Hg] Zaireylinn Dokken [facility] 02-01-2022 21:27-0400 Heart rate 111 /min Zaireylinn Dokken [facility] 02-01-2022 21:27-0400 Respiratory rate 20 /min Zaireylinn Dokken [facility] 02-01-2022 21:27-0400 SaO2% (BldA) [Mass fraction] 98 % Charaninn Dokken [facility] 02-01-2022 21:27-0400 Systolic blood pressure 196 mm[Hg] Charaninn Dokken [facility] 12-28-2021 08:56-0400 Body height 167.64 cm Services [employer] Work Phone: [facility] 12-28-2021 08:56-0400 Body weight 71.66 kg [facility] [employer] Work Phone: [facility] 12-23-2021 09:40-0400 Diastolic blood pressure 87 mm[Hg] [facility] [employer] Work Phone: [facility] 12-23-2021 09:40-0400 Heart rate 88 /min Services [facility] [employer] Work Phone: [facility] 12-23-2021 09:40-0400 Respiratory rate 18 /min [facility] Work Phone: [facility] 12-23-2021 09:40-0400 SaO2% (BldA) [Mass fraction] 100 % [facility] Work Phone: [facility] 12-23-2021 09:40-0400 Systolic blood pressure 140 mm[Hg] [facility] Work Phone: [facility] 12-23-2021 07:44-0400 Body height 167.64 cm [facility] Work Phone: [facility] 12-23-2021 07:44-0400 Body weight 68.03 kg [facility] Work Phone: [facility] 11-06-2021 14:00-0400 Diastolic blood pressure 82 mm[Hg] [facility] Work Phone: [facility] 11-06-2021 14:00-0400 Heart rate 102 /min [facility] Work Phone: [facility] 11-06-2021 14:00-0400 Respiratory rate 20 /min [facility] Work Phone: [facility] 11-06-2021 14:00-0400 SaO2% (BldA) [Mass fraction] 97 % [facility] Work Phone: [facility] 11-06-2021 14:00-0400 Systolic blood pressure 123 mm[Hg] [facility] Work Phone: [facility] 11-06-2021 00:00-0400 Body height 167.64 cm [facility] Work Phone: [facility] 11-06-2021 00:00-0400 Body weight 70.3 kg [facility] Work Phone: [facility] 11-05-2021 23:51-0400 Body temperature 98 [degF] [facility] Work Phone: [facility] Encounters Encounter Date Encounter Type Care Provider Facility Start: 01-16-2024 Non-patient / Non-visit CERTIFIED MEDICAL ASST Reji jimenez Evangelist Work Phone: [facility] Work Phone: Start: 01-15-2024 End: 01-22-2024 Evaluation and management of inpatient CERTIFIED MEDICAL ASSTTodd Baldwin Evangelist Work Phone: [facility] [place] [address] Work Phone: Start: 11-27-2023 End: 11-30-2023 Clinisync Result Encounter Shaikh Jonatan OROURKE Work Phone: [facility] Unsolicited Start: 11-27-2023 End: 11-30-2023 Clinisync Result Encounter Shaikh Jonatan OROURKE Work Phone: [facility] Unsolicited Start: 11-26-2023 End: 12-01-2023 Non-patient / Non-visit CERTIFIED MEDICAL ASSTTodd Blanca Work Phone: [facility] Work Phone: Start: 11-22-2023 Non-patient / Non-visit CERTIFIED MEDICAL ASST Reji jimenez Evangelist Work Phone: [facility] Work Phone: Start: 11-22-2023 ambulatory Avery Blanca Facili ty:[facility] Start: 11-22-2023 Registered Recurring CERTIFIED MEDICAL ASST Ez reji Evangelist Work Phone: [facility] Start: 08-14-2023 End: 08-14-2023 ambulatory Avery Babb Blanca [facility] Work Phone: Start: 08-14-2023 End: 08-14-2023 Departed Referred CATIA Blanca Work Phone: [facility] Start: 06-14-2023 End: 06-14-2023 Patient encounter procedure CERTIFIED MEDICAL ASSTTodd Blanca Work Phone: [facility] Work Phone: Start: 03-27-2023 FQHC visit new patient Becky beck [facility] Start: 03-27-2023 End: 03-27-2023 Discharged Recurring CATIA Blanca Work Phone: [facility] Work Phone: Start: 03-27-2023 End: 03-27-2023 ambulatory CATIA Blanca Work Phone: [facility] [employer] Other Start: 03-27-2023 End: 03-27-2023 Patient encounter procedure CATIA Blanca Work Phone: [facility] Work Phone: Start: 01-19-2023 ambulatory Aung Salda[facility] ty:[facility] Start: 10-21-2022 End: 10-21-2022 Emergency department patient visit Thanh Bal Facility:[facility] Start: 03-26-2022 End: 03-26-[address] DENO MCGUIRE Facility: Start: 02-01-2022 End: 02-02-2022 Emergency department patient visit DO Judith Mock Facility:[facility] Start: 02-01-2022 End: 02-02-2022 Emergency department patient visit Judith Mock [facility] Start: 01-31-2022 End: 05-02-2022 ambulatory Varinder Ang Facility:[facility] Start: 01-18-2022 End: 01-18-2022 ambulatory Services Family [facility] Work Phone: [facility] Work Phone: Start: 01-18-2022 End: 01-18-2022 Patient encounter procedure Services Family [facility] Work Phone: [facility] [place] Start: 12-28-2021 End: 12-28-2021 Patient encounter procedure Services [facility] Work Phone: [facility] [place] Start: 12-23-2021 End: 12-23-2021 Patient encounter procedure Services [employer] Phone: [facility] [place] Start: 11-25-2021 End: 11-25-2021 Departed Referred Services [employer] Phone: [facility] Start: 11-18-2021 End: 11-20-[address] DOCTOR SALGADO Facility:[facility] Start: 11-10-2021 End: 11-11-2021 ambulatory MAGGY WORLEY Facility:[facility] Start: 11-05-2021 End: 11-06-2021 Emergency department patient visit Services [employer] Phone: [facility]-Emergency Room Procedures Date Procedure Procedure Detail Performing Clinician Start: 11-27-2023 Bacteria identified in Urine by Culture Shaikh Jonatan OROURKE Work Phone: Start: 12-28-2021 MRI of thoracic spin e with contrast Services [employer] Phone: Start: 12-28-2021 XR pre/post mri xray [facility] [employer] Phone: Start: 12-28-2021 MRI of lumbar spine with contrast Services [employer] Phone: Start: 12-23-2021 MRI of head Services F [facility] [employer] Work Phone: Aerobic microbial culture Se [facility] [employer] Phone: Anaerobic microbial culture Services [employer] Phone: Investigation of transfusion reaction Services [employer] Phone: Plan of Treatment Date Care Activity Detail Author Start: 01-22-2024 [facility] Start: 01-18-2024 Referral to clinical cranberry grower [facility] Start: 01-15-2024 Referral to Garbage Pick Up Worker [facility] Start: 01-15-2024 Hospital admission [facility] Start: 01-18-2022 LLAMA FARMER antibody measurement [facility] Start: 01-18-2022 [facility] Start: 12-23-2021 [facility] Start: 12-23-2021 Cerebrospinal fluid culture [facility] Work Phone: Start: 12-23-2021 [facility] Start: 12-23-2021 Lumbar puncture usin g fluoroscopic guidance [facility] Work Phone: Start: 11-25-2021 End: 11-25-2021 Departed Referred Departed Referred [facility] Albumin [Mass/volume ] in Cerebral spinal fluid [facility] Work Phone: Albumin [Mass/volume ] in Serum or Plasma [facility] Work Phone: Albumin/Globulin ratio [facility] Work Phone: Bacteria identified in Unspecified specimen by Aerobe culture [facility] Work Phone: Bacteria identified in Unspecified specimen by Anaerobe culture [facility] Work Phone: Cell count, cerebros alexus fluid [facility] Work Phone: Centromere protein B Ab [Units/volume] in Serum [facility] Work Phone: Cerebrospinal fluid examination [facility] Work Phone: Cerebrospinal fluid IgG ratio and IgG index [facility] Work Phone: Chromatin Ab [Units/ volume] in Serum or Plasma [facility] Work Phone: Comprehensive metabo lic 2000 panel - Serum or Plasma [facility] DNA double strand Ab [Units/volume] in Serum [facility] Work Phone: Electrophoresis: [id number] [facility] Work Phone: Electrophoresis: [id number] [facility] Work Phone: Electrophoresis: beta-globulin [facility] Work Phone: Electrophoresis: toby ma globulin [facility] Work Phone: Evaluation of cerebr ospinal fluid [facility] Work Phone: Fluid sample volume measurement [facility] Work Phone: Globulin [Mass/volum e] in Serum [facility] Work Phone: Glucose [Mass/volume ] in Cerebral spinal fluid [facility] Work Phone: Glutamate decarboxyl ase 65 Ab [Units/volume] in Serum [facility] IgG [Mass/volume] in Cerebral spinal fluid [facility] Work Phone: IgG [Mass/volume] in Serum or Plasma [facility] Work Phone: IgG clearance/Albumi n clearance [Ratio] in Serum and CSF [facility] Work Phone: IgG synthesis rate [Mass/time] in Serum and CSF by calculation [facility] Work Phone: Insulin Ab [Units/vo lume] in Serum [facility] Insulin C-peptide measurement [facility] Rika-1 extractable nuc lear Ab [Units/volume] in Serum [facility] Work Phone: Meningitis+Encephali tis pathogens DNA and RNA panel - Cerebral spinal fluid by GOPAL with non-probe detection [facility] Work Phone: Methylmalonate [Moles/volume] in Serum or Plasma [facility] Work Phone: Microscopic observat ion [Identifier] in Unspecified specimen by Gram stain [facility] Nucleated cells [#/v olume] in Cerebral spinal fluid by Manual count [facility] Work Phone: Patient Education [facility] Work Phone: Patient referral [facility] Work Phone: Protein [Mass/volume ] in Cerebral spinal fluid [facility] Work Phone: Protein [Mass/volume ] in Serum or Plasma [facility] Work Phone: Protein fractions.oligoclonal bands.intrathecal [Presence] in Serum and CSF [facility] Work Phone: Red blood cell count [facility] Work Phone: LLAMA FARMER antibody measurement [facility] Work Phone: SCL-70 extractable n uclear Ab [Units/volume] in Serum by Immunoassay [facility] Work Phone: Sjogrens syndrome-A extractable nuclear Ab [Units/volume] in Serum [facility] Work Phone: Sjogrens syndrome-B extractable nuclear Ab [Units/volume] in Serum [facility] Work Phone: Mcguire extractable nu clear Ab [Units/volume] in Serum [facility] Work Phone: Thiamine [Moles/volu me] in Blood [facility] Immunizations Immunization Date Immunization Notes Care Provider Fa [facility] 01-31-2022 influenza virus vaccine, unspecified formulation Judith Piersonmandeepedwige [facility] Comment on above: Reason for Medicatio n: Prophylaxis Payers Date Payer Category Payer Self-pay [id number] 2021 Unknown 1985 Unknown [id number] 2.16.84 [id number] 1985 Unknown [id number] 2.16.84 [id number] 1984 Unknown [id number] 2.16.84 [id number] 1984 Unknown [id number] 2.16.8 [id number] 1984 Unknown [id number] 2.16.8 [id number] 1984 Unknown [id number] 2.16.8 [id number] 1984 Unknown [id number] 2.16.8 [id number] 1959 Unknown [id number] Medicaid [id number] Unknown [id number] 2.16.8 [id number] Unknown [id number] 2.16.8 [id number] Unknown [id number] 2.16.8 [id number] Unknown [id number] 2.16.8 [id number] Social History Date Type Detail Facility Start: 11-06-2021 End: 03-27-2023 Tobacco smoking status SDIS Ex-smoker (finding) [facility] Start: 1985 Sex Assigned At Female F [facility] Tobacco smoking status No Smoking Status Entered [facility] Sex Assigned At Female [facility] Start: 06-14-2023 End: 01-18-2024 Tobacco smoking status SDIS Smoker (finding) [facility] Tobacco smoking status [facility] Tobacco smoking consumption unknown [facility] Start: 1985 Sex assigned at Not on file [facility] Healthcare Goals Date Patient Goal Desired Activity /State Functional Status Date Assessment Result Facility 01-22-2024 Functional status Patient at Baseline [facility] Work Phone: 02-01-2022 Functional Status N/A [facility] Mental Status Date Assessment Result Facility 01-22-2024 Cognitive function Cognitive Sta tus Patient at Baseline [facility] Work Phone: Clinical Notes 02-01-2022 to 01-22-2024 Note Date & Type Note Facility 01-22-2024 Discharge summary Note Date/Time January 22, 2024 11:00am [facility] [address] [place] [address] Discharge Summary Signed Patient: Shikha Loera MR#: [id number] : 1985 Acct:[id number] Age/Sex: 38 / F Adm Date: 4 Loc: Room: [address] [place] [address]: Jack Kwon MD Copies to: MD Devonte Wu MD [facility]~ Providers Date of Discharge: 01/22/24 Discharging Provider: Devonte Valdovinos Primary Care Provider: Services [facility] Consults: 01/15/24 11:22 Consult to Case Management Routine Comment: CM Reason for Consult: Garbage Pick Up Worker-General 01/18/24 04:46 Consult to Adult Hospitalist Routine [...] depression, alcohol use disorder Past hospitalizations: Previous [address] [place] [address] hospitalization 10-15 years ago for suicide attempt [...] Instructions: Important Contact Information You can call [facility] at [phone] any time day or night if you have emergent questions or question regarding discharge instructions. If at any time you are feeling an increase inyour psychiatric symptoms, call your physician or behavioral healthcare provider. If any time you have thoughts of harming yourself or others contact one of the following: Call 9-8-8 (available 30/10) Crisis Text Line (available 30/10) text 4HOPE to [phone] [facility] Hope Line (available 8 a.m. Midnight) call [phone] ([phone]) Regular Diet No Activity Restrictions Instructions: Depression, Adult (DC), Alcohol Use Disorder (DC), [facility] Behavioral Health DC Instructions, Know your Meds [...] tablet 5 mg PO DAILY Follow Up: [facility] [Outside] - 01/23/24 (A caser up will call you tomorrow 01/22 between 8-5 to discuss appointments and follow-up care. Financial and diagnostic assessment on 01/22 at 1:30pm Nursing intake on 02/05 at 10am Appointment with Dr. Valdovinos on 02/11 at 10:15am[facility] (see with any medical needs) Exam [...] <Electronically signed by Devonte Valdovinos MD> 01/22/24 4812 [facility] Work Phone: 1(608) 490-243210-14-2024 Progress note Author Devonte Valdovinos [facility] January 21, 2024 2:21pm Note Date/Time January 21, 2024 1 2:12pm [facility] [address] [place] [address] Psychiatry Progress Note Signed Patient: Shikha Loera MR#: [id number] : 1985 Acct:[id number] Age/Sex: 38 / F Adm Date: 4 Loc: Room: [address] [place] [address] Type : ADM IN Attending Dr: Jack [...] signed by Devonte Valdovinos MD> 01/21/24 1421 [facility] Work Phone: 1(118) 111-748410-13-2024 Progress note Author Jack wright [facility] January 20, 2024 5:40pm Note Date/Time January 20, 2024 1 1:39am [facility] [address] [place] [address] Psychiatry Progress Note Signed Patient: Shikha Loera MR#: [id number] : 1985 Acct:[id number] Age/Sex: 38 / F Adm Date: 4 Loc: 1S Room: [address] [place] [address] Type : ADM IN Attending Dr: Jack [...] to get ahold of her. Ena Rooney [phone] Mother stated she just talked to Shikha [...] <Electronically signed by Jack Kwon MD> 01/20/24 1544 [facility] Work Phone: 1(833) 649-466410-13-2024 Progress note Author Helen Bailon [facility] January 20, 2024 4:29pm Note Date/Time January 20, 2024 4 :29pm [facility] [address] [place] [address] Hospitalist Progress Note Signed Patient: Shikha Loera MR#: [id number] : 1985 Acct:[id number] Age/Sex: 38 / F Adm Date: 4 Loc: Room: [address] [place] [address] Type: ADM IN Attending Dr: Jack Kwon [...] By: <Electronically signed by CATIA Bailon> 01/20/241628 [facility] Work Phone: 1(165) 269-913310-12-2024 Progress note Author Helen Bailon [facility] January 19, 2024 4:50pm Note Date/Time January 19, 2024 4 :50pm [facility] [address] [place] [address] Hospitalist Progress Note Signed Patient: Shikha Loera MR#: [id number] : 1985 Acct:[id number] Age/Sex: 38 / F Adm Date: 4 Loc: Room: [address] [place] [address] Type: ADM IN Attending Dr: Jack Kwon [...] Documented By: Helen Bailon APRN 01/07 06/02 2593 Signed By: <Electronically signed by CATIA Sandsy> 01/19/24 1650 [facility] Work Phone: 1(261) 816-564110-12-2024 Progress note Author Jack wright [facility] January 19, 2024 8:01am Note Date/Time January 19, 2024 7 :59am [facility] [address] [place] [address] Psychiatry Progress Note Signed Patient: Shikha Loera MR#: [id number] : 1985 Acct:[id number] Age/Sex: 38 / F Adm Date: 4 Loc: Room: [address] [place] [address] Type : ADM IN Attending Dr: Jack [...] signed by Jack Kwon MD> 01/19/24 0801 [facility] Work Phone: 1(639) 689-211810-11-2024 Consult note Author Hari Nixon [facility] January 18, 2024 7:40pm Note Date/Time January 18, 2024 1 1:50am [facility] [address] [place] [address] Hospitalist Consult Note Signed Patient: Shikha Loera MR#: [id number] : 1985 Acct:[id number] Age/Sex: 38 / F Adm Date: 4 Loc: Room: [address] [place] [address] Type: ADM IN Attending Dr: Jack Kwon MD Copies to: Jack Kwon MD [facility] CATIA Dennis, DO~ HPI [...] negative unless noted below or in HPI [facility] Medical History (Updated 01/18/24 @ 14:15 [...] signed by Hari Nixon DO> 01/18/24 194 [facility] Work Phone: 1(324) 626-964310-11-2024 Progress note Author Jack wright [facility] January 18, 2024 2:15pm Note Date/Time January 18, 2024 9 :31am [facility] [address] [place] [address] Psychiatry Progress Note Signed Patient: Shikha Loera MR#: [id number] : 1985 Acct:[id number] Age/Sex: 38 / F Adm Date: 4 Loc: Room: [address] [place] [address] Type : ADM IN Attending Dr: Jack Kwon MD Copies to: ~ Date of Service: 01/18/2024 Subjective Subjective Narrative: Ms. 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 She [...] <Electronically signed by Jack Kwon MD> 01/18/24 6676 [facility] Work Phone: 1(588) 617-628110-10-2024 Progress note Author Jack wright [facility] January 17, 2024 6:35am Note Date/Time January 17, 2024 6 :35am [facility] [address] [place] [address] Psychiatry Progress Note Signed Patient: Shikha Loera MR#: [id number] : 1985 Acct:[id number] Age/Sex: 38 / F Adm Date: 4 Loc: 1S Room: [address] [place] [address] Type : ADM IN Attending Dr: Jack [...] discharge. Documented By: Jack Kwon MD [id number] Signed By: <Electronically signed by Jack Kwon MD> 01/17/24 0635 [facility] Work Phone: 1(574) 399-683410-09-2024 History and physical note Author Jack wright [facility] January 16, 2024 6:36am Note Date/Time January 15, 2024 11 :43am [facility] [address] [place] [address] Psychiatry H&P Signed Patient: Shikha Loera MR#: [id number] : 1985 Acct:[id number] Age/Sex: 38 / F Adm Date: Loc: Room: [address] [place] [address] Type: ADM IN Attending Dr: Jack Kwon MD Copies to: Jack Kwon MD [facility]~ Date of Service: 01/16/2024 [...] her best friend. Patient was here at [address] [place] [address] during this time because she attempted suicide [...] depression, alcohol use disorder Past hospitalizations: Previous [address] [place] [address] hospitalization 10-15 years ago for suicide attempt [...] internalstimuli. Insight: limited , emerging Judgment: limited [facility] Medical History (Updated 01/16/24 @ 06:36 [...] Cloudy A Urine pH 5.5 Ur Specific [place] 1.005 Urine Protein 20 H Urine Glucose [...] signed by Jack Kwon MD> 01/16/24 0636 [facility] Work Phone: 1([phone] 929-125512-19-2023 Evaluation note* Encounter Date Diagnosis Assessment Notes [...] issues. 6. Prescriptions: New patient 03-27-2023 uses [facility]. Mar, Vitamin D deficiency (ICD-10 - E55.9) Mar, Hyperlipidemia, unspecified hyperlipidemia type (ICD-10 - E78.5) Mar, Hypertension, unspecified type (ICD-10 - I10) Mar, Dietary counseling and surveillance (ICD-10 - Z71.3) Mar, BMI 21.0-21.9, adult (ICD-10 - Z68.21) Mar, History of gestational diabetes (ICD-10 - Z86.32) [employer] Other 10-27-2022 Hospital Discharge instructions Patient Education 02/02/2022 00:18:28 Pyelonephritis, Adult, Ktvh-yh-Gsiu Pyelonephritis, Adult Pyelonephritis is an infection that [...] even if youstart to feel better. Take zljs-maj-ohhppxi and prescription medicines only as told by [...] 05/03/2005 Document Revised: 01/28/2019 Document Reviewed: 01/28/2019 [employer] Patient Education 2020 [employer]. Follow Up Care 02/01/2022 21:25:38 With:AVERY BLANCA Address: [address] [place] [address] [address] [place] [address]- [phone] Business (1) When:02/05/2022 Comments:You can use the pain medication every 6 hours as needed for pain, take the Bactrim twice daily until you have completed the course. Please follow-up with your primary care doctor the next 2 to 3 days. Please return to the ED for any new or worsening symptoms. [facility]10-26-20[facility] Evaluation + Plan noteExtracted from: Title:ED Note [...] With Cult Reflex Urine Culture US [facility]bladder [facility] for [facility] N[facility]* Chief Complaint Referral Echd Detox DM [facility] Work Phone: Evaluation noteNo assessment information available [facility] Work Phone: Evaluation note* Diagnosis Onset Date Resolution Status Alcohol use disorder acute BMI 21.0-21.9, adult acute Controlled diabetes mellitus with hyperglycemia acute Dietary counseling and surveillance acute Hyperlipidemia acute Vitamin D deficiency acute [facility] Work Phone: Evaluation note* Diagnosis Onset Date Resolution Status Alcohol intoxication acute Suicidal ideations acute [facility] Work Phone: Evaluation note* Diagnosis Onset Date Resolution Status Alcohol intoxication acute Alcohol use disorder acute Alcohol withdrawal acute Bipolar depression acute HTN (hypertension) acute Hyperlipidemia acute Hypokalemia acute Hypomagnesemia acute Hypothyroid acute Suicidal ideations acute Vitamin D deficiency acute [facility] Work Phone: History general Narrative - Reported* Type Description Date Medical History Hx of abnormal pap Medical History Hx of pancreatitis Medical History type II diabetes Medical History bipolar Surgical History hemangioma removed from lip at age 4 Hospitalization History See Above Hospitalization History pancreatitis [facility] Girl Meets Dress Other Hospital course Narrative No data available for this section [facility] data available for this section [facility] Chief Complaint and Reason for Visit Chief [...] Member Role Status Dates Avery Blanca APRN MIXING MACHINE TENDER-C Attending Provider Active Team Status: Inactive Member Role Status Dates Services [facility] Primary Care Provider Active aHl Orozco DO Emergency Provider Active Team Status: Inactive Member Role Status Dates Delfino Reese MD Attending Provider Active Yeyo Mcneill , MIXING MACHINE TENDER-C Primary Care Provider Active Team Status: Active Member Role Status Dates Yeyo Mcneill , MIXING MACHINE TENDER-C Primary Care Provider Active Team Status: Inactive Member Role Status Dates Yeyo Mcneill , MIXING MACHINE TENDER-C Primary Care Provider Active Delfino Reese MD Attending Provider Active Team Status: Active Member Role Status Dates Avery Blanca APRN MIXING MACHINE TENDER-C Primary Care Provider Act dario Team Status: Inactive Member Role Status Dates Becky Gambino APRN Attending Provider Active Start: March 27, 2023 End: March 27, 2023 Team Status: Inactive Member Role Status Dates Becky Gambino APRN Attending Provider Active Start: March 27, 2023 End: March 27, 2023 Avery Blanca APRN MIXING MACHINE TENDER-C Primary Care Provider Act dario Start: March 27, 2023 End: March 27, 2023 Team Status: Inactive Member Role Status Dates Avery Blanca APRN MIXING MACHINE TENDER-C Primary Care Provider Act dario Start: June 14, 2023 End: June 14, 2023 Becky Gambino APRN Attending Provider Active Start: June 14, 2023 End: June 14, 2023 Team Status: Inactive Member Role Status Dates Avery Blanca APRN MIXING MACHINE TENDER-C Attending Provider Active Start: August 14, 2023 End: August 14, 2023 Team Status: Active Member Role Status Dates Services [facility] Primary Care Provider Active Team Status: Active Member Role Status Dates Avery Blanca APRN MIXING MACHINE TENDER-C Primary Care Provider Act dario Start: November [...] Status: Inactive Member Role Status Dates Services [facility] Primary Care Provider Active Start: January [...] Status: Active Member Role Status Dates Services [facility] Primary Care Provider Active Start: January [...] DATE CREATED AUTHOR AUTHOR'S ORGANIZ ATION 01/20/2023 [facility] DATE CREATED AUTHOR AUTHOR'S ORGANIZ ATION 03/07/2024 [facility] REASON FOR VISIT (unrecogniz [...] BE BASED ON THE PRIMARY CLINICAL RECORDS. [facility] [employer] Reviewed [facility]. provides no warranty or guarantee of the accuracy or completeness of information in this document.
--- NOTE | 2024-04-23 08:00 | P.HP_ITS ---
HPI H&P: HPI History of Present Illness Chief complaint: ALCOHOL INTOXICATION Narrative: Patient is a 38 y.o White female with past medical history of alcoholism with Delirium Tremens and withdrawal seizures, Noninsulin type 2 diabetes, Bipolar type I, Hypertension and hypothyroidism who had her last drink yesterday around 3pm. She usually drinks a 750mL of Vodka daily. It appears her abuse of alcohol has led her to many relapses and admissions at this facility with withdrawal only to bring her right back. She was just admitted 10 days ago, 04/12/24-04/14/24. Her alcohol level was 467. She wishes to quit drinking but never has a plan upon discharge, comes in for medications, then goes home to drink again. She has done a 40 day stay in rehab before and relapsed. Patient has 5 children and is . She has also not been taking her blood pressure medication or her psychiatric medications for about 2 months which makes her mental state and her physical state worse. ER findings: WBC's 4.0, Hb 12.4, Cr 0.57, mag 1.6, AST 54, ALT 51, ETOH 467; patient was given IV ativan and admitted for acute alcohol intox and detox Overnight, Nurse practicer placed her on PRN ATivan, Valium, Librium. These were all discontinued as the combination along with the acute alcohol intox can have high risk of adverse complications. I have scheduled Ativan and Given Ativan PRN for CIWA scores >8. I had long discussion with patient today about frequency of her admissions with no concrete plan to quit alcohol at discharge. Social Work, Case Management to give patient options and for her to come up with concrete plan at discharge. I told her the hospital is not a medical detox facility or r ehab program and the frequency of her admissions is only harming her. Opioid HPI Opioid Management Most Recent Pain and Opioid Data: Last Pain Scale 2 03/30/24 15:55 03/30/24 Last Pain Assessment 04/23/24 10:00 Last ORT Total Score 4 04/22/24 23:31 04/22/24 Last ORT Risk Category Moderate Risk 04/22/24 23:31 04/22/24 Ur Phencyclidine Scrn Negative (NEGATIVE) 04/12/24 09:25 0108/01 Review of Systems ROS Narrative ROS: a complete review of systems were reviewed with patient and are positive as below or listed in History of Chief Complaint. General: no fever, chills, night sweats Head: no headache, trauma, visual changes, nausea or vomiting Skin: no reported rashes, itching or sores Eyes: no blurriness of vision Ears: no reported hearing loss, vertigo, earache, or tinnitus Throat: no sore throat, hoarseness, swelling of neck, or tongue pain Heart: no chest pain Lungs: no shortness of breath or cough GI: no diarrhea or vomiting/nausea, no appetite Urinary: no urinary urgency, frequency or pain Neuro: no numbness or tingling HEM: no bleeding issues or bruising ENDO: no thyroid problems Psych:anxiety and depression [facility] Medical History (Updated 04/22/24 @ 22:25 by Terese Medina MD) Alcoholic hepatitis ?K70.10 - Alcoholic hepatitis without ascites (ICD-10) Alcohol withdrawal syndrome ?F10.939 - Alcohol use, unspecified with withdrawal, unspecified (ICD-10) Hypothyroidism ?E03.9 - Hypothyroidism, unspecified (ICD-10) Type 2 diabetes mellitus ?E11.9 - Type 2 diabetes mellitus without complications (ICD-10) Bipolar 1 disorder ?F31.9 - Bipolar disorder, unspecified (ICD-10) HTN (hypertension) ?I10 - Essential (primary) hypertension (ICD-10) Alcoholic intoxication ?F10.929 - Alcohol use, unspecified with intoxication, unspecified (ICD-10) Alcohol abuse ?F10.10 - Alcohol abuse, uncomplicated (ICD-10) Abdominal pain ?R10.9 - Unspecified abdominal pain (ICD-10) Family History Sister Family history of hypertension Aunt Alcoholism Uncle Alcoholism Social History Within the past year, how often did you have a drink containing alcohol: 4 or more times a week Within the past year, how many standard drinks containing alcohol did you have on a typical day: 7 to 9 Within the past year, how often did you have six or more drinks on one occasion: daily or almost daily Total score: 10 Score interpretation: A score of 3 or more indicates drinking is likely to aff ect patient's safety. 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 Highest level of school completed/degree received: high school graduate Are you now , , , , never or living with a partner: Little interest or pleasure in doing things: several days Feeling down, depressed, or hopeless: several days Do you think of yourself as: straight/heterosexual Gender Identity: female Meds Home Medications and Allergies Home Medications ?Medication ?Instructions ?Recorded ?Confirmed ?Type levothyroxine 50 mcg tablet 50 mcg PO DAILY 08/17/23 04/22/24 History quetiapine 25 mg tablet 25 mg PO BID 08/17/23 04/22/24 History amlodipine 10 mg tablet 10 mg PO DAILY 03/29/24 04/22/24 History atorvastatin 20 mg tablet 20 mg PO .QHS 03/29/24 04/22/24 History cholecalciferol (vitamin D3) 125 125 mcg PO DAILY 03/29/24 04/22/24 History mcg (5,000 unit) capsule gabapentin 100 mg capsule 200 mg PO TID 03/29/24 04/22/24 History hydroxyzine pamoate 50 mg capsule 50 mg PO Q6H PRN anxiety 03/29/24 04/22/24 History lamotrigine 25 mg tablet 25 mg PO .QHS 03/29/24 04/12/24 History multivitamin with folic acid 400 1 tab PO DAILY 03/29/24 04/22/24 History mcg tablet (Daily-Augustina (with folic acid)) thiamine HCl (vitamin B1) 100 mg 100 mg PO BID 03/29/24 04/22/24 History tablet clonidine HCl 0.1 mg tablet 0.1 mg PO Q6H PRN Agitation #30 04/14/24 04/22/24 Rx tabs mirtazapine 15 mg tablet 15 mg PO .QHS #30 tabs 04/14/24 04/22/24 Rx omeprazole 40 mg capsule,delayed 40 mg PO DAILY #30 caps 04/14/24 04/22/24 Rx release promethazine 12.5 mg tablet 12.5 mg PO Q6H PRN nausea and 04/14/24 04/22/24 Rx vomiting #20 tabs Allergies Allergy/AdvReac Type Severity Reaction Status Date / Time lisinopril Allergy Severe Swelling Verified 04/12/24 08:50 of Lip/Tongue/Throat Exam Narrative Exam Narrative: General: Patient is alert, and oriented to person, place and time with normal affect, proper hygiene, tremulous and diaphoretic Skin: no visible rashes, or ulcers Head: atraumatic, acephalic Eyes: PERRLA, no nystagmus present, conjunctiva clear, no scleral icterus Neck: no masses palpated, normal thyroid, no JVD or audible carotid bruits Heart: Normal rate and rhythm, no murmurs/rubs/gallops Lungs: no audible wheezes, crackles and normal breath sounds all lung varghese Abdomen: Normal audible bowel sounds, no distension, No palpable masses, no organomegaly, no rebound/guarding/ or rigidity Musculoskeletal: no swelling bilateral lower extremities Neuro: CN II-X grossly intact Constitutional Vital Signs, click to edit/add: Last Vital Signs Temp 97.3 F L 04/22/24 22:40 Pulse 97 H 04/23/24 07:12 Resp 96 H 04/23/24 07:16 BP 106/60 04/23/24 07:12 Pulse Ox 99 04/23/24 07:12 O2 Del Method Room Air 04/22/24 22:40 Results Labs Labs: Short CBC 04/22/24 04/23/24 Range/Units 19:36 04:46 WBC 3.9 L 4.0 (4.0-11.0) 10^3/uL Hgb 16.2 H 12.4 (12.0-16.0) g/dL Hct 50.1 H 37.3 (36.0-48.0) % Plt Count 301 218 (150-450) 10^3/uL BMP 04/22/24 04/23/24 19:36 04:46 Sodium 145 143 Potassium 4.2 3.8 Chloride 104 108 H Carbon Dioxide 19.5 L 23.6 BUN 5.0 L 3.0 L Creatinine 0.85 0.57 Glucose 67 L 221 H Calcium 9.2 7.7 L Liver Function 04/22/24 04/23/24 Range/Units 19:36 04:46 Total Bilirubin 0.5 0.4 (0.2-1.0) mg/dL AST 103 H 54 H (15-37) U/L ALT 80 H 51 (14-59) U/L Alkaline Phosphatase 146 H 95 (46-116) U/L Albumin 4.4 2.9 L (3.4-5.0) g/dL Assessment and Plan Assessment and Plan (1) Alcohol withdrawal syndrome: Assessment and Plan: patient with acutely high ETOH level of 467 but based on other admissions she starts to withdrawal at levels just below this. Continue CIWA scores q4 hours, Ativan scheduled and PRN, Clonidine scheduled. clinical services consultant consult for opti ons at discharge. I have had long discussion with patient that it's also harmful to her body to continue to stop and restart drinking. Patient is currently in the ICU for high risk of decline/decompensation and seizures. Seizure precautions. continue multivitamin with folate. Qualifiers: Complication of substance-induced condition: uncomplicated Qualified Code(s): F10.930 - Alcohol use, unspecified with withdrawal, uncomplicated (2) Hypomagnesemia: Assessment and Plan: recheck 1.8, replace IV as needed (3) Alcoholic hepatitis: Assessment and Plan: AST 2 x ALT, just had ct scan and hepatitis panel that was negative last visit. Her liver enzymes are improved compared to March visit. Qualifiers: Ascites presence: without ascites Qualified Code(s): K70.10 - Alcoholic hepatitis without ascites (4) Hypothyroidism: Assessment and Plan: resume levothyroxine Qualifiers: Hypothyroidism type: unspecified Qualified Code(s): E03.9 - Hypothyroidism, unspecified (5) Type 2 diabetes mellitus: Assessment and Plan: monitor accuchecks daily, lack of appetite Qualifiers: Diabetes mellitus complication status: with hyperglycemia Diabetes mellitus nursing home insulin use: without intermediate designer use Qualified Code(s): E11.65 - Type 2 diabetes mellitus with hyperglycemia (6) Bipolar 1 disorder: Assessment and Plan: resume psychiatric medications of seroquel, hydroxyzine PRN (7) HTN (hypertension): Assessment and Plan: continue scheduled clonidine. Qualifiers: Hypertension type: primary hypertension Qualified Code(s): I10 - Essential (primary) hypertension Plan patient is a full code SCD's for prophylaxis Patient is inpatient status and will require 2-3 days of Alcohol detox before she is out of the 72 hour window for WD seizures. Relations Liaison to aid in discharge planning and possible transfer to inpatient rehab
[2024-04-23 08:54] LABS: Magnesium 1.8 mg/dL (1.8-2.4)
[2024-04-23] MEDS: LEVOTHYROXINE SODIUM 25 MCG TABLET 50 MCG PO (09:39)
[2024-04-23] MEDS: CHOLECALCIFEROL (VITAMIN D3) 125 MCG/5,000 UNIT TABLET PO (09:39)
[2024-04-23] MEDS: QUETIAPINE FUMARATE 25 MG TABLET PO ×2 (09:39→20:31)
[2024-04-23] MEDS: FOLIC ACID 1 MG TABLET PO (09:39)
[2024-04-23] MEDS: OMEPRAZOLE 40 MG CAPSULE.DR PO (09:39)
[2024-04-23] MEDS: MULTIVITAMIN TABLET 1 TAB PO (09:39)
[2024-04-23] MEDS: THIAMINE MONONITRATE (VIT B1) 100 MG TABLET PO (09:39)
--- NOTE | 2024-04-23 11:57 | CM.NOTE ---
Rounds made with Dr. Huston, discussed with pt discharge plan. Dr. Huston talked with pt about alcohol rehab facility. Pt refusing this, states I follow in a AA group . Dr. Huston talked with pt about how often she is returning to hospital and that plan is not working to keep pt out of hospital. Dr. Huston explained importance of detox units and inpatient rehab for addiction. Pt was also asked if she was using other substances, pt states she has been taking marijuana gummies to prevent her from drinking. Discussed with pt trading one addiction for another does not solve the problem. Case Management will speak with pt or SW about discharge planning.
[2024-04-23 12:31] LABS: Amphetamine Screen Urine NEGATIVE (NEGATIVE); Barbiturates Screen Urine NEGATIVE (NEGATIVE); Benzodiazepines Screen Urine POSITIVE (NEGATIVE); Buprenorphine Screen Urine NEGATIVE (NEGATIVE); Cannabinoid Screen Urine POSITIVE (NEGATIVE); Cocaine Screen Urine NEGATIVE (NEGATIVE); Methadone Screen Urine NEGATIVE (NEGATIVE); Methamphetamines Screen Urine NEGATIVE (NEGATIVE); Opiate Screen Urine NEGATIVE (NEGATIVE); Oxycodone Screen Urine NEGATIVE (NEGATIVE); Phencyclidine Screen Urine NEGATIVE (NEGATIVE); Tricyclic Antidepressant Urine NEGATIVE (NEGATIVE)
--- NOTE | 2024-04-23 12:59 | PC.NURSE ---
latanya next to pt in bed. this nurse noticed pill bottle in purse, asked pt if she was taking med, stated it is clonidine and that she has not taken any. pt gave med bottle to nurse, locked in pts flying i instructor room. pt aware of pending transfer to [facility] rm [address]
--- NOTE | 2024-04-23 14:00 | PC.NURSE ---
pt transferred to rm [address] with belongings. report given to jena victoria
--- NOTE | 2024-04-23 14:06 | CM.NOTE ---
Case Management and Retread Operator spoke with pt in depth regarding discharge planning and importance of inpatient therapy vs returning back to Hospital. Discussed with pt different options and choices, pt at this time continues to refuse inpatient therapy for addiction. Pt states I just started a new job and have children to care for at home. Discussed with pt importance of self-care to be able to be present and well enough to take care of others. Pt states this time she is definitely going to quit drinking and do whatever it takes to stop without going to inpatient. Asked pt what would be different for her this time? Pt has promised this will be the last drink every time she has been admitted to hospital but has not followed through with her outpatient meetings and returns to hospital. Pt again states This time will be different, I don't want to lose my family. Pt states I just feel better when I'm drinking, I like myself when I'm drinking. Talked with pt about reason she likes herself better when she is drinking. Pt states I just feel better, educated pt on what the alcohol is doing to her body. Education provided on being able to give her body long enough off alcohol to be able to feel good without alcohol. Discussed with pt about triggers, pt states Just driving by a gas station. Pt states I don't really have a reason to drink, my life is good. Pt verbalizes My family hate me when I drink. Pt understands the importance of inpatient rehab and quitting but continues to make excuses of why she can't go to inpatient rehab. Pt continues to refuse inpatient alcohol rehab at this time. Pt agrees only to outpatient counseling and going to AA meetings. Pt also states she takes marijuana gummies to keep her from drinking alcohol, pt educated on trading one addiction for another is not getting sober. Case Management and SW will given pt time to process and make a decision regarding discharge planning, will check again with pt tomorrow.
[2024-04-23] MEDS: PROMETHAZINE HCL 25 MG TABLET 12.5 MG PO (14:16)
--- NOTE | 2024-04-23 14:45 | SWNOTE1 ---
See case management note.
[2024-04-23] MEDS: CLONIDINE HCL 0.1 MG TABLET PO (20:31)
[2024-04-23] MEDS: HYDROXYZINE PAMOATE 25 MG CAPSULE 50 MG PO (20:31)
[2024-04-23] MEDS: MIRTAZAPINE 15 MG TABLET PO (21:15)
[2024-04-23] MEDS: ATORVASTATIN CALCIUM 20 MG TABLET PO (21:16)
[2024-04-24] VITALS (21 sets, daily range): BP systolic 122–166; BP diastolic 79–99; PULSE 53–89; TEMP 36.6–37.3; O2SAT 72–99
[2024-04-24] MEDS: LORAZEPAM 1 MG TABLET PO ×5 (01:38→23:15)
[2024-04-24] MEDS: LEVOTHYROXINE SODIUM 25 MCG TABLET 50 MCG PO (05:38)
[2024-04-24] MEDS: OMEPRAZOLE 40 MG CAPSULE.DR PO (05:38)
[2024-04-24 05:47] LABS: Basophils Absolute Auto 0.1 10^3/uL (0.0-0.1); Basophils Percent Auto 2.3 % (0.2-2.0); Eosinophils Absolute Auto 0.1 10^3/uL (0.0-0.7); Eosinophils Percent Auto 2.1 % (0.9-7.0); Hematocrit 42.2 % (36.0-48.0); Lymphocytes Absolute Auto 1.4 10^3/uL (1.2-3.8); Lymphocytes Percent Auto 33.3 % (20.5-60.0); Mean Corpuscular HGB Conc 33.2 g/dL (29.9-35.2); Mean Corpuscular Hemoglobin 31.1 pg (26.7-34.0); Mean Corpuscular Volume 93.8 fL (81.0-99.0); Mean Platelet Volume 9.8 fL (9.5-13.5); Monocytes Absolute Auto 0.7 10^3/uL (0.3-0.8); Monocytes Percent Auto 15.7 % (1.7-12.0); Neutrophils Percent Auto 46.6 % (43.0-75.0); Platelet Count 176 10^3/uL (150-450); Red Cell Distribution Width 13.4 % (11.0-15.0); White Blood Count 4.3 10^3/uL (4.0-11.0)
[2024-04-24 06:00] LABS: Alanine Aminotransferase 44 U/L (14-59); Albumin Globulin Ratio 0.9; Albumin Level 3.4 g/dL (3.4-5.0); Alkaline Phosphatase 108 U/L (46-116); Anion Gap 15.3; Aspartate Amino Transferase 41 U/L (15-37); BUN Creatinine Ratio 4.6; Bilirubin Total 1.1 mg/dL (0.2-1.0); Calcium 8.9 mg/dL (8.5-10.1); Carbon Dioxide 26.3 mmol/L (21.0-32.0); Chloride 103 mmol/L (98-107); Estimated GFR (African America >60 (>=60 mL/min/1.73m^2); Estimated GFR (Non-African Ame >60 (>=60 mL/min/1.73m^2); Globulin 3.7 g/dL; Glucose 71 mg/dL (74-106); Magnesium 1.6 mg/dL (1.8-2.4); Potassium 3.6 mmol/L (3.5-5.1); Sodium 141 mmol/L (136-145); Total Protein 7.1 g/dL (6.4-8.2)
--- NOTE | 2024-04-24 08:28 | P.PN_ITS ---
Progress Note: Subjective Subjective Interval history: Patient sitting up in bed. Less tired today. Is not tremulous. She wants to go home today. I discussed with patient that she is taking Ativan and that's why she feels great. She will not be discharged on this. She is only 48 hours from her last drink and risks go down at 72 hours for seizure so she will need to be here through tomorrow. She also said her plan is to make appoinment for outpatient rehab in [place] at [facility]. She also asks for phenergan. I told her no indication for it so no. Exam Narrative Exam Narrative: General: Patient is alert, and oriented to person, place and time with normal affect, proper hygiene Skin: no visible rashes, or ulcers Head: atraumatic, acephalic Eyes: PERRLA, no nystagmus present, conjunctiva clear, no scleral icterus Neck: no masses palpated, normal thyroid, no JVD or audible carotid bruits Heart: Normal rate and rhythm, no murmurs/rubs/gallops Lungs: no audible wheezes, crackles and normal breath sounds all lung varghese Abdomen: Normal audible bowel sounds, no distension, No palpable masses, no organomegaly, no rebound/guarding/ or rigidity Musculoskeletal: no swelling bilateral lower extremities Neuro: CN II-X grossly intact Constitutional Vital Signs, click to edit/add: Last Vital Signs Temp 98.3 F 04/24/24 08:00 Pulse 66 04/24/24 08:00 Resp 18 04/24/24 08:00 BP 164/98 H 04/24/24 08:00 Pulse Ox 97 04/24/24 08:00 O2 Del Method Room Air 04/24/24 08:00 Progress Note: Objective Labs Labs: Short CBC 04/24/24 Range/Units 05:24 WBC 4.3 (4.0-11.0) 10^3/uL Hgb 14.0 (12.0-16.0) g/dL Hct 42.2 (36.0-48.0) % Plt Count 176 (150-450) 10^3/uL BMP 04/24/24 05:24 Sodium 141 Potassium 3.6 Chloride 103 Carbon Dioxide 26.3 BUN 3.0 L Creatinine 0.65 Glucose 71 L Calcium 8.9 Liver Function 04/24/24 Range/Units 05:24 Total Bilirubin 1.1 H (0.2-1.0) mg/dL AST 41 H (15-37) U/L ALT 44 (14-59) U/L Alkaline Phosphatase 108 (46-116) U/L Albumin 3.4 (3.4-5.0) g/dL Progress Note: A&P Assessment and Plan (1) Alcohol withdrawal syndrome: Assessment and Plan: patient with acutely high ETOH level of 467 but based on other admissions she starts to withdrawal at levels just below this. Continue CIWA scores q4 hours, Ativan scheduled and PRN but decrease frequency from 1mg q4 to q6 hours, Clonidi ne scheduled. Seizure precautions. continue multivitamin with folate. Qualifiers: Complication of substance-induced condition: uncomplicated Qualified Code(s): F10.930 - Alcohol use, unspecified with withdrawal, uncomplicated (2) Hypomagnesemia: Assessment and Plan: 1.6 today, replaced with 2 grams IV (3) Alcoholic hepatitis: Assessment and Plan: AST 2 x ALT, just had ct scan and hepatitis panel that was negative last visit. Her liver enzymes are improved compared to March visit. 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 Qualifiers: Hypertension type: primary hypertension Qualified Code(s): I10 - Essential (primary) hypertension Plan patient is a full code SCD's for prophylaxis Patient will require 1-2 days of Alcohol detox before she is out of the 72 hour window for WD seizures. [employer] Splitter to aid in discharge planning and possible transfer to inpatient rehab
[2024-04-24] MEDS: QUETIAPINE FUMARATE 25 MG TABLET PO ×2 (10:17→21:04)
[2024-04-24] MEDS: FOLIC ACID 1 MG TABLET PO (10:17)
[2024-04-24] MEDS: THIAMINE MONONITRATE (VIT B1) 100 MG TABLET PO (10:17)
[2024-04-24] MEDS: MULTIVITAMIN TABLET 1 TAB PO (10:17)
[2024-04-24] MEDS: CLONIDINE HCL 0.1 MG TABLET PO ×2 (10:17→21:04)
[2024-04-24] MEDS: CHOLECALCIFEROL (VITAMIN D3) 125 MCG/5,000 UNIT TABLET PO (10:17)
[2024-04-24] MEDS: MAGNESIUM SULFATE IN WATER 2 GM/50 ML PREMIX IV (10:18)
--- NOTE | 2024-04-24 11:51 | CM.NOTE ---
Rounds made with Dr. Huston. Dr. Huston discusses need for treatment plan before Shikha can be discharged. Shikha has been talking to [facility] in [place]. No discharge today.
--- NOTE | 2024-04-24 13:58 | SWNOTE1 ---
SW stopped back to see pt. Pt voiced she has an outpt appointment set up with [facility] at 10:00 am on Sunday. SW asked if she spoke with her work? She stated she is off that day and that is why she scheduled it. SW asked if she thought about going to inpatient. She firmly stated no she is not going. DAISY advised pt that SW and case management are available if she does need any resources.
[2024-04-24] MEDS: MIRTAZAPINE 15 MG TABLET PO (21:04)
[2024-04-24] MEDS: ATORVASTATIN CALCIUM 20 MG TABLET PO (21:04)
[2024-04-24] MEDS: HYDROXYZINE PAMOATE 25 MG CAPSULE 50 MG PO (21:04)
[2024-04-25] VITALS (9 sets, daily range): BP systolic 120–147; BP diastolic 61–90; PULSE 60–90; TEMP 36.8; O2SAT 65–99
--- NOTE | 2024-04-25 04:57 | PC.NURSE ---
Patient had purse laying on he floor wide open and a bottle of ativan 1 mg po was discovered. There are 9 tablets in the bottle. The ativan is now locked up in med drawer. The patient was sleeping when the pills were found.
[2024-04-25 05:41] LABS: Basophils Absolute Auto 0.1 10^3/uL (0.0-0.1); Basophils Percent Auto 2.2 % (0.2-2.0); Eosinophils Absolute Auto 0.1 10^3/uL (0.0-0.7); Eosinophils Percent Auto 2.9 % (0.9-7.0); Hematocrit 43.5 % (36.0-48.0); Hemoglobin 14.8 g/dL (12.0-16.0); Immature Granulocytes Abs Auto 0.01 10^3/uL (0.00-0.03); Immature Granulocytes Pct Auto 0.2 % (0.0-0.5); Lymphocytes Absolute Auto 1.4 10^3/uL (1.2-3.8); Lymphocytes Percent Auto 34.8 % (20.5-60.0); Mean Corpuscular Hemoglobin 31.5 pg (26.7-34.0); Mean Corpuscular Volume 92.6 fL (81.0-99.0); Mean Platelet Volume 9.8 fL (9.5-13.5); Monocytes Absolute Auto 0.5 10^3/uL (0.3-0.8); Monocytes Percent Auto 12.4 % (1.7-12.0); Neutrophils Percent Auto 47.5 % (43.0-75.0); Platelet Count 188 10^3/uL (150-450); Red Cell Distribution Width 13.2 % (11.0-15.0); White Blood Count 4.1 10^3/uL (4.0-11.0)
[2024-04-25 06:03] LABS: Alanine Aminotransferase 48 U/L (14-59); Albumin Globulin Ratio 0.9; Albumin Level 3.6 g/dL (3.4-5.0); Alkaline Phosphatase 118 U/L (46-116); Anion Gap 13.2; Aspartate Amino Transferase 68 U/L (15-37); BUN Creatinine Ratio 5.8; Bilirubin Total 0.9 mg/dL (0.2-1.0); Calcium 9.8 mg/dL (8.5-10.1); Carbon Dioxide 26.5 mmol/L (21.0-32.0); Chloride 104 mmol/L (98-107); Estimated GFR (African America >60 (>=60 mL/min/1.73m^2); Estimated GFR (Non-African Ame >60 (>=60 mL/min/1.73m^2); Globulin 3.9 g/dL; Glucose 119 mg/dL (74-106); Magnesium 1.6 mg/dL (1.8-2.4); Potassium 3.7 mmol/L (3.5-5.1); Sodium 140 mmol/L (136-145); Total Protein 7.5 g/dL (6.4-8.2)
[2024-04-25] MEDS: OMEPRAZOLE 40 MG CAPSULE.DR PO (06:52)
[2024-04-25] MEDS: LEVOTHYROXINE SODIUM 25 MCG TABLET 50 MCG PO (06:52)
[2024-04-25] MEDS: LORAZEPAM 1 MG TABLET PO (06:52)
[2024-04-25] MEDS: QUETIAPINE FUMARATE 25 MG TABLET PO (09:18)
[2024-04-25] MEDS: MULTIVITAMIN TABLET 1 TAB PO (09:18)
[2024-04-25] MEDS: THIAMINE MONONITRATE (VIT B1) 100 MG TABLET PO (09:18)
[2024-04-25] MEDS: CHOLECALCIFEROL (VITAMIN D3) 125 MCG/5,000 UNIT TABLET PO (09:18)
[2024-04-25] MEDS: FOLIC ACID 1 MG TABLET PO (09:18)
[2024-04-25] MEDS: CLONIDINE HCL 0.1 MG TABLET PO (09:18)
--- NOTE | 2024-04-25 12:16 | CM.NOTE ---
Rounds made with Dr. Cabrera, pt will discharge to home today. Pt has appt with [facility] on Sunday for outpatient counseling.
--- NOTE | 2024-04-25 13:59 | P.DS_ITS ---
DS: Providers Provider Date of admission: 04/23/24 08:17 Primary care physician: Nicolasa Blanca NP DS: Diagnosis Discharge Diagnosis (1) Alcohol withdrawal syndrome: Qualifiers: Complication of substance-induced condition: uncomplicated Qualified Code(s): F10.930 - Alcohol use, unspecified with withdrawal, uncomplicated (2) Hypomagnesemia: (3) Alcoholic intoxication: (4) Alcoholic hepatitis: Qualifiers: Ascites presence: without ascites Qualified Code(s): K70.10 - Alcoholic hepatitis without ascites (5) Hypothyroidism: Qualifiers: Hypothyroidism type: unspecified Qualified Code(s): E03.9 - Hypothyroidism, unspecified (6) Type 2 diabetes mellitus: Qualifiers: Diabetes mellitus half-way insulin use: without ad terminal makeup operator use Diabetes mellitus complication status: with hyperglycemia Qualified Code(s): E11.65 - Type 2 diabetes mellitus with hyperglycemia (7) Bipolar 1 disorder: (8) HTN (hypertension): Qualifiers: Hypertension type: primary hypertension Qualified Code(s): I10 - Essential (primary) hypertension DS: Summary Hospital Course Hospital Course: Reason for admission: See ER note and H&P for details. 38 y/o female with history of alcohol abuse to ER with intoxication and wanting to quit. Prior rehab in past but doesn't want inpatient rehab. To ER and EtOH 467. History of alcohol withdrawal seizures in past. Admitted for treatment. Hospital course: Started CIWA protocol with ativan. Started vitamins and resumed home medication. Gradually improved in hospital. Not as shaky or jittery. catering convention services manager discussed treatment options and patient wanted outpatient treatment. Cut down on ativan. Discharged home in stable condition. Scheduled for counseling 04/29. Resume home medication as directed. Time Spent with Patient Time attestation: Total time spent providing and/or coordinating discharge services: Time spent: greater than 30 minutes Exam Constitutional Vital Signs, click to edit/add: Last Vital Signs Temp 98.3 F 04/25/24 08:00 Pulse 90 04/25/24 11:58 Resp 18 04/25/24 08:00 BP 120/90 04/25/24 08:00 Pulse Ox 99 04/25/24 11:21 O2 Del Method Room Air 04/25/24 11:21 Documenting provider has reviewed patient's vital signs: yes Common normals: no apparent distress, oriented x3 and alert HENMT Common normals: normocephalic Eye Common normals: PERRL and EOMs intact bilaterally Respiratory Common normals: normal respiratory effort and clear to auscultation bilaterally Cardio Common normals: regular rate, regular rhythm, no gallops, no murmurs and no rub GI Common normals: Normal to inspection, nondistended, normoactive bowel sounds present and non-tender Extremity Common normals: no pedal edema DS: Data Data Completed and Pending Labs on day of discharge: Labs from last 24 hours 04/25/24 05:24 WBC 4.1 RBC 4.70 Hgb 14.8 Hct 43.5 MCV 92.6 MCH 31.5 MCHC 34.0 RDW 13.2 Plt Count 188 MPV 9.8 Neut % (Auto) 47.5 Lymph % (Auto) 34.8 Barron % (Auto) 12.4 H Eos % (Auto) 2.9 Baso % (Auto) 2.2 H Neut # (Auto) 2.0 Lymph # (Auto) 1.4 Barron # (Auto) 0.5 Eos # (Auto) 0.1 Baso # (Auto) 0.1 Abs Immat Gran (auto) 0.01 Imm/Tot Granulo (auto) 0.2 Sodium 140 Potassium 3.7 Chloride 104 Carbon Dioxide 26.5 Anion Gap 13.2 BUN 4.0 L Creatinine 0.69 Est GFR ( Amer) >60 Est GFR (Non-Af Amer) >60 BUN/Creatinine Ratio 5.8 Glucose 119 H Calcium 9.8 Magnesium 1.6 L Total Bilirubin 0.9 AST 68 H ALT 48 Alkaline Phosphatase 118 H Total Protein 7.5 Albumin 3.6 Globulin 3.9 Albumin/Globulin Ratio 0.9 Discharge Plan Discharge Disposition: Home, Self-Care Condition: Fair Discharge Medications: Continued levothyroxine 50 mcg tablet 50 mcg PO DAILY Patient Comments: LAST FILLED 12/17/23 quetiapine 25 mg tablet 25 mg PO BID promethazine 12.5 mg tablet 12.5 mg PO Q6H PRN (Reason: nausea and vomiting) Qty: 20 0RF Rx Instructions: 3 doses during day; last dose no later than 4 hr before bedtime clonidine HCl 0.1 mg Tablet 0.1 mg PO Q6H PRN (Reason: Agitation) Qty: 30 0RF mirtazapine 15 mg tablet 15 mg PO .QHS Qty: 30 0RF omeprazole 40 mg capsule,delayed release(DR/EC) 40 mg PO DAILY Qty: 30 0RF atorvastatin 20 mg tablet 20 mg PO .QHS thiamine HCl (vitamin B1) 100 mg tablet 100 mg PO BID hydroxyzine pamoate 50 mg capsule 50 mg PO Q6H PRN (Reason: anxiety) lamotrigine 25 mg tablet 25 mg PO .QHS amlodipine 10 mg tablet 10 mg PO DAILY gabapentin 100 mg capsule 200 mg PO TID cholecalciferol (vitamin D3) 125 mcg (5,000 unit) capsule 125 mcg PO DAILY multivitamin with folic acid [Daily-Augustina (with folic acid)] 400 mcg tablet 1 tab PO DAILY Activity: increase activity as tolerated Diet: advance to your usual diet Print Language: Welsh Patient Instructions: Alcohol Intoxication (DC), Alcohol Use Disorder (DC) Forms: Portal Instructions Follow Up Appointments: @ 12:30pm with Nicolasa Blanca NP [phone] Discharge Date/Time: 04/25/24 12:39
--- NOTE | 2024-04-28 15:16 | CM.DCFOLLOWU ---
04/28 1st attempt. No answer
--- NOTE | 2024-04-29 15:27 | CM.DCFOLLOWU ---
2nd attempt 04/29/24 no answer
--- NOTE | 2024-04-30 14:44 | CM.DCFOLLOWU ---
3rd attempt. No answer
== END 2024-04-25 12:39 | disposition home or self-care (01) | DRG 897 ==
LOC: ER 22:25 → MS 04-23 14:55 → ICU 04-25 08:55 → MS 04-25 08:56
PROVIDERS: Registered Nurse; Admitting Provider Family Medicine; Emergency Provider Emergency Medicine; PCP Nurse Practitioner Family; Visit Provider Family Medicine
DX: F10.239 Alcohol dependence with withdrawal, unspecified (principal); R64 Cachexia; Z91.148 Patient's other noncompliance with medication regimen for other reason; E03.9 Hypothyroidism, unspecified; F31.9 Bipolar disorder, unspecified; I10 Essential (primary) hypertension; F17.290 Nicotine dependence, other tobacco product, uncomplicated; Y90.8 Blood alcohol level of 240 mg/100 ml or more; E83.42 Hypomagnesemia; K70.10 Alcoholic hepatitis without ascites; Z79.890 Hormone replacement therapy; E11.65 Type 2 diabetes mellitus with hyperglycemia; Z68.22 Body mass index [BMI] 22.0-22.9, adult
CPT/HCPCS: 36415; 80053; 80307; 80320; 83735; 85025; 85610; 93005; 94761; 96365; 96367; 96375; 99285; G0378; J1650; J2060; J2405; J3411; J3475; Q0169; Q0177

== ENCOUNTER 2024-08-30 16:36 | Emergency (ER) | payer BC, SELFPAY ==
--- OUTSIDE RECORDS SUMMARY | 2015-03-08 12:22 | XMS_ITS | Continuity of Care Document ---
Author Organization [facility] Address [address] [place] [address] Phone Care Team Providers Care Mold Blower Name Role Phone [facility]IN[facility] Unavailable Unavaila ble Advance Directives Directive Yes / No Effective Date File Name No Information Encounters Encounter Description Practice Location Reason(s) For Visit Diagnoses Date Provider Providers Copied on Encounter [facility], [address] [place], [place], [id number], [place] tel:[phone] [facility] No Information Jose Ramon [facility] Zheng. [address] [place], [place], [id number], [place]. tel:[phone] Family History Family Member Type Diagnosis Age At Onset No Information Payers Payer name Insurance type Covered libertarian ID Authoriza tion(s) No Information Social History Type Description Quantity Date Captured Comments Sex Female Smoking Status No Information Chief Complaint And Reason For Visit No Information Reason For Referral Reason For Referral No Information History Of Present Illness Encounter Date Complaint History Of Prese nt Illness No Information Functional Status Date Functional Assessmen t No Information Instructions Date Instruction Additional Infor mation No Information Assessments Type Assessment Date No Information Patient Care Teams Name Effective Dates (start - stop) Status Members No Information
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
--- OUTSIDE RECORDS SUMMARY | 2024-08-04 14:22 | XMS_ITS ---
Author Name Auto Generated Organization OHIP Support Name Relationship Address Phone Mark Loera Next of Kin [address] [place] [address], [place] [address] + Arianna Rooney Next of Kin [address] [place] [address], [place] [address] + Mark Loera Next of Kin [address] [place] [address], [place] [address] + Arianna Rooney Next of Kin [address] [facility] [place] [place] [address] + Mark Loera Next of Kin [address] [facility] [place] [place] [address] + Arianna Rooney Next of Kin [address] [facility] [place] [place] [address] + Mark Loera Next of Kin [address] [facility] [place] [place] [address] + Arianna Rooney Next of Kin [address] [facility] [place] [address] + Mark Loera Next of Kin [address] [facility] [place] [address] + Arianna Rooney Next of Kin [address] [facility] [place] [address] + MARK LOERA Next of Kin Unknown [facility] Mark Loera Next of Kin [address] [facility] [place] [address] + Arianna Rooney Next of Kin [address] [facility] [place] [place] [address] + Mark Loera Next of Kin [address] [place] [address] + ToribioArianna Next of Kin [address] [place] [address] + Mark Loera Next of Kin [address] [place] [address] + Arianna Rooney Next of Kin [address] [place] [address] + Care Team Providers Care Dental Intern Name Role Phone Nicole Burns Attending Unavailable Nicole Burns Admitting Unavailable Pravin Correia Admitting Unavailable Nicole Burns Primary Care Unavailable Pravin Correia Attending Unavailable Wero Kwonelrahman Admitting Unavailab Jack Pulliam Attending Unavailab Avery Hernández Primary Care Unavailable Nahum Soni Attending Unavailab emma Kwon, Jack Consulting Unavailab [facility], Services Primary Care Unavaila Diego Fernandes Admitting Unavailable Nicole Burns Primary Care Unavailable Pravin Correia Attending Unavailable Gurvinder Sosa Admitting Unavailable Marilu Trevizo Consulting Unavailable Devonte Valdovinos Consulting Unavailable Sajan Knapp Admitting Unavailable Edward Spann Consulting Unavailable Diego Gregg Attending Unavailable [facility] Services Primary Care [facility] Services Primary Care Unavaila ble Devonte Valdovinos Attending Unavailable Doyle, Jack Admitting Unavailab Mendy Espino Consulting Unavailable Nancy Romero Consulting Unavailable Alejandra Thornton Consulting Unavailable Marcela Tom Consulting Unavailable Estella Lieberman Consulting Unavailable Chandan Whipple Consulting Unavailable Cisco Calderon Consulting Unavailable Jaime Alcocer Consulting UnavailSrini Dominguez Consulting Unavailable Mona Ericka Consulting Unavailable Cm Escalona Consulting Unavailable Helen Bailon Consulting UnavailGiuliano Kent Consulting Unavailable Albin Smith Consulting Unavailable Afshin Flores Consulting Unavailable Viktoria Padilla Consulting Unavailable Mark Nixon Consulting Unavailable Sarah Mahajan Consulting Unavailable Michael Avila Consulting Unavailable Nga Edwards Consulting Unavailable Johnie Poe Consulting Unavailable Nahum Soni Consulting UnavailScott Hathaway Consulting Unavailable Ruy Juarez Unavailable Maria Isabel Marte Consulting Unavailable Ta Bonner Consulting Unavailable Mignon Lucero Consulting Unavailable Huy Escobar Consulting Unavailable ObAlmaz sanchez Consulting Unavailable Diego Gregg Consulting Unavailable Jose MiguelomaCarlos vila Consulting Unavailable Paulette Mcguire Consulting Unavailable Martha Woods Consulting Unavailable Ashlee Osuna Consulting Unavailable Dariel Spence Consulting Unavailable Ermias Dangelo Consulting Unavailable Gladys Matthews Consulting Unavailable Chato Juarez Consulting Unavailable Delma Kuo Consulting Unava ilSunshine Montenegro Consulting Unavailable Gurvinder Sosa Consulting Unavailable Sajan Knapp Consulting Unavailable Carlota Carr Consulting Unavailable Nicole Burns Attending Unavailable Nicole Burns Admitting Unavailable [facility] Attending Unavailable AVERY VILLEGAS Primary Care Unavailable PROBLEMS DATE TYPE CONDITION / CODE ATTENDING STATUS [facility] 08/04/2024 Unknown Hypo-osmolality and hyponatremia / E87.1(ICD-10) Praivn Correia [facility] 07/24/2024 Unknown Nausea with vomi ting, unspecified / R11.2(ICD-10) Nicole Burns [facility] 07/17/2024 Unknown Type 2 diabetes mellitus with hyperglycemia / E11.65(ICD-10) Diego Gregg [facility] 07/17/2024 Unknown Vitamin D defici ency, unspecified / E55.9(ICD-10) Diego Gregg [facility] 07/17/2024 Unknown Hyperlipidemia, unspecified / E78.5(ICD-10) Diego Gregg [facility] 07/17/2024 Unknown Unspecified abdo linda pain / R10.9(ICD-10) Diego Gregg [facility] 07/17/2024 Unknown Alcohol abuse, i n remission / F10.11(ICD-10) Nicole Burns [facility] 06/04/2024 Unknown Alcohol use, unspecified with intoxication, uncomplicated / F10.920(ICD-10) [facility] 06/04/2024 Unknown Alcohol Intoxica tion / FREETEXT(AOF) [facility] 06/04/2024 Unknown Alcohol withdraw al / UNK(Unknown) [facility] 05/19/2024 Unknown Alcohol use, unspecified with withdrawal, unspecified / F10.939(ICD-10) [facility] Urinary tract infection, site not specified / N39.0(ICD-10) [facility]24 Unknown Hypothyroidism, unspecified / E03.9(ICD-10) [facility]24 Unknown Essential (prima ry) hypertension / I10(ICD-10) [facility]2024 Unknown Bipolar disorder , unspecified / F31.9(ICD-10) [facility]24 Unknown Alcohol use, unspecified, uncomplicated / F10.90(ICD-10) [facility] Unknown Hypomagnesemia / E83.42(ICD-10) [facility] Unknown Thrombocytopenia , unspecified / D69.6(ICD-10) [facility]/15[facility]24 Unknown Alcohol use, unspecified with intoxication, unspecified / F10.929(ICD-10) Devonte Valdovinos [facility] 01/15/2024 Unknown Alcohol dependen ce with withdrawal, unspecified / F10.239(ICD-10) [facility] Unknown Hypokalemia / E87.6(ICD-10) Bonifacio [facility] PROCEDURES No Procedure Records Found RESULTS RENAL FUNCTION PANEL Collected: 08/04/2024 2:32 PM S tatus: F Source: [facility] TYPE CODE TESTS RESULT OUT OF RANGE REFERENCE UNITS LAB GLU Glucose 133 High 70-100 mg/dL Result Comment: Random Gluco se Reference Range is dependent on time and content of last meal. Glucose of more than 200 mg/dL in a nonstressed, ambulatory subject supports the diagnosis of Diabetes Mellitus. ADA recommended reference range LAB BUN Blood Urea Nitrogen 8 Normal 7-25 mg/dL LAB CREATT Creatinine 0.72 Normal 0.60-1.20 mg/dL LAB GFReNR Estimated GFR >60.0 mL/Min LAB NA Sodium 138 Normal 136-145 mmol/L LAB K Potassium 4.0 Normal 3.5-5.1 mmol/L LAB CL Chloride 104 Normal 98-107 mmol/L LAB CO2 Carbon Dioxide 26.6 Normal 21.0-31.0 mmol/L LAB GAP Anion Gap 11.4 Normal 6.0-15.0 meq/L LAB CA Calcium 10.2 Normal 8.6-10.3 mg/dL LAB PHOS Phosphorus 3.8 Normal 2.5-4.5 mg/dL LAB ALB Albumin Level 4.8 Normal 3.5-5.7 g/dL Result Comment: PERFORMED BY : [place] [address] PATHOLOGIST ADMINISTRATIVE SERVICES SPECIALIST NEEL SHELTON M.D. Performed By: #### RENAL ### # [address] BASIC METABOLIC PANEL Collected: 07/26/2024 7:44 AM Status: F Source: [facility] TYPE CODE TESTS RESULT OUT OF RANGE REFERENCE UNITS LAB GLU Glucose 169 High 70-100 mg/dL Result Comment: Random Gluco se Reference Range is dependent on time and content of last meal. Glucose of more than 200 mg/dL in a nonstressed, ambulatory subject supports the diagnosis of Diabetes Mellitus. ADA recommended reference range LAB BUN Blood Urea Nitrogen 18 Normal 7-25 mg/dL LAB CREATT Creatinine 0.73 Normal 0.60-1.20 mg/dL LAB GFReNR Estimated GFR >60.0 mL/Min LAB NA Sodium 131 Low 136-145 mmol/L LAB K Potassium 4.2 Normal 3.5-5.1 mmol/L LAB CL Chloride 99 Normal 98-107 mmol/L LAB CO2 Carbon Dioxide 23.4 Normal 21.0-31.0 mmol/L LAB GAP Anion Gap 12.8 Normal 6.0-15.0 meq/L LAB CA Calcium 10.1 Normal 8.6-10.3 mg/dL LAB CRCLPHA Creatinine Clr Calc Pharmacy 95.90 Performed By: #### BMP, MG # ### [place] [id number] [facility] MAGNESIUM Collected: 7:44 AM Status: F Source: [facility] TYPE CODE TESTS RESULT OUT OF RANGE REFERENCE UNITS LAB MG Magnesium 1.7 Low 1.9-2.7 mg/dL Result Comment: PERFORMED BY : [place] [address] PATHOLOGIST ADMINISTRATIVE SERVICES SPECIALIST NEEL SHELTON M.D. Performed By: #### BMP, MG # ### [place] [id number] [facility] SODIUM Collected: 7:44 AM Status: F Source: [facility] TYPE CODE TESTS RESULT OUT OF RANGE REFERENCE UNITS LAB NA Sodium 130 Low 136-145 mmol/L Result Comment: PERFORMED BY : [place] [address] PATHOLOGIST ADMINISTRATIVE SERVICES SPECIALIST NEEL SHELTON M.D. Performed By: #### NA #### [facility] [address] [place], [place] [id number] [facility] SODIUM Collected: 5 2:25 AM Status: F Source: [facility] TYPE CODE TESTS RESULT OUT OF RANGE REFERENCE UNITS LAB NA Sodium 132 Low 136-145 mmol/L Result Comment: PERFORMED BY : [place] [id number] PATHOLOGIST ADMINISTRATIVE SERVICES SPECIALIST NEEL SHELTON M.D. Performed By: #### NA #### [facility] [address] [place] [address] [facility] SODIUM Collected: 7:59 PM Status: F Source: [facility] TYPE CODE TESTS RESULT OUT OF RANGE REFERENCE UNITS LAB NA Sodium 129 Low 136-145 mmol/L Result Comment: PERFORMED BY : [place] [id number] PATHOLOGIST ADMINISTRATIVE SERVICES SPECIALIST NEEL SHELTON M.D. Performed By: #### NA #### [facility] [address] [place] [id number] [facility] SODIUM Collected: 5 4:18 PM Status: F Source: [facility] TYPE CODE TESTS RESULT OUT OF RANGE REFERENCE UNITS LAB NA Sodium 128 Low 136-145 mmol/L Result Comment: PERFORMED BY : [place] [address] PATHOLOGIST ADMINISTRATIVE SERVICES SPECIALIST NEEL SHELTON M.D. Performed By: #### NA #### [place] [id number] [facility] SODIUM Collected: 11:52 AM Status: F Source: [facility] TYPE CODE TESTS RESULT OUT OF RANGE REFERENCE UNITS LAB NA Sodium 124 Low Off Scale 136-145 mmol/L Result Comment: Critical Res ult Called to and read back by: NOT FIRST TIME CRITICAL at: 07/25/2024 13:00:17 by:MLG PERFORMED BY: [place] [address] PATHOLOGIST ADMINISTRATIVE SERVICES SPECIALIST NEEL SHELTON M.D. Performed By: #### NA #### [place] [id number] [place] SODIUM Collected: 8:17 AM Status: F Source: [facility] TYPE CODE TESTS RESULT OUT OF RANGE REFERENCE UNITS LAB NA Sodium 123 Low Off Scale 136-145 mmol/L Result Comment: Critical Res ult Called to and read back by: NOT FIRST TIME CRITICAL at: 07/25/2024 09:21:16 by:MLG PERFORMED BY: [place] [address] PATHOLOGIST ADMINISTRATIVE SERVICES SPECIALIST NEEL SHELTON M.D. Performed By: #### NA #### [place] [id number] [facility] URINALYSIS Collected: 07/25/2024 6:15 AM Status: F Source: [facility] Order Comment: Name Collecti on Type:: Clean-Voided Midstream TYPE CODE TESTS RESULT OUT OF RANGE REFERENCE UNITS LAB UCOL Color,Urine Light-Yellow Yellow LAB UAPP Appearance,Uri ne Clear Clear LAB USG Specificy Orosi,Urine 1.006 Normal 1.001-1.030 LAB UPH pH,Urine 6.5 Normal 5.0-9.0 LAB ULE Leukocyte Esterase,Urine Negative Negative LAB UNIT Nitrite,Urine Negative Negative LAB UPRO Protein,Urine Negative Negative LAB UGL Glucose,Urine (UA) Normal Normal LAB UKET Ketones,Urine Negative Negative LAB UURO Urobilinogen,U rine Normal Normal LAB UBIL Bilirubin,Urin e Negative Negative LAB UBLD Occult Blood,Urine Negative Negative Performed By: #### UHCG, UCR EA, UA, NIK, UK, UROSMO #### [address] HCG,URINE Collected: 07/25/2024 6:15 AM Status: F Source: [facility] Order Comment: Name Collecti on Type:: Clean-Voided Midstream TYPE CODE TESTS RESULT OUT OF RANGE REFERENCE UNITS LAB UHCGQ HCG Qualitative,U rine Negative Result Comment: PERFORMED BY : [place] [address] PATHOLOGIST ADMINISTRATIVE SERVICES SPECIALIST NEEL SHELTON M.D. Performed By: #### UHCG, UCR EA, UA, NIK, UK, UROSMO #### [place] [id number] [facility] CREATININE, URINE (RANDOM) Collected: 0 07/25/2024 6:15 AM Status: F Source: [facility] TYPE CODE TESTS RESULT OUT OF RANGE REFERENCE UNITS LAB UCREA Creatinine, Urine (Random) 30.00 mg/dL Result Comment: No reference range established Performed By: #### UHCG, UCR EA, UA, NIK, UK, UROSMO #### [facility] [address] SODIUM, URINE (RANDOM) Collected: 07/25 6:15 AM Status: F Source: [facility] TYPE CODE TESTS RESULT OUT OF RANGE REFERENCE UNITS LAB NIK Sodium, Urine (Random) 33 mmol/L Result Comment: No reference range established Performed By: #### UHCG, UCR EA, UA, NIK, UK, UROSMO #### [address] POTASSIUM, URINE (RANDOM) Collected: 6:15 AM Status: F Source: [facility] TYPE CODE TESTS RESULT OUT OF RANGE REFERENCE UNITS LAB UK Potassium, Urine (Random) 6.2 mmol/L Result Comment: No reference range established PERFORMED BY: [place] [address] PATHOLOGIST ADMINISTRATIVE SERVICES SPECIALIST NEEL SHELTON M.D. Performed By: #### UHCG, UCR EA, UA, NIK, UK, UROSMO #### [address] OSMOLALITY, URINE Collected: 6:15 AM Status: F Source: [facility] TYPE CODE TESTS RESULT OUT OF RANGE REFERENCE UNITS LAB UROSMO Osmolality, Urine 162 Low 250-900 mosm Result Comment: PERFORMED BY : [place] [address] PATHOLOGIST ADMINISTRATIVE SERVICES SPECIALIST NEEL SHELTON M.D. Performed By: #### UHCG, UCR EA, UA, NIK, UK, UROSMO #### [place] [id number] [place] OSMOLALITY Collected: 6:05 AM Status: F Source: [facility] TYPE CODE TESTS RESULT OUT OF RANGE REFERENCE UNITS LAB OSMO Osmolality 257 Low 278-305 mosm Result Comment: PERFORMED BY : [place] [id number] PATHOLOGIST ADMINISTRATIVE SERVICES SPECIALIST NEEL SHELTON M.D. Performed By: #### OSMO #### [facility] [address] [place], [place] [id number] [facility] BASIC METABOLIC PANEL Collected: 07/25/2024 6:05 AM Status: F Source: [facility] TYPE CODE TESTS RESULT OUT OF RANGE REFERENCE UNITS LAB GLU Glucose 81 Normal 70-100 mg/dL Result Comment: Random Gluco se Reference Range is dependent on time and content of last meal. Glucose of more than 200 mg/dL in a nonstressed, ambulatory subject supports the diagnosis of Diabetes Mellitus. ADA recommended reference range LAB BUN Blood Urea Nitrogen 6 Low 7-25 mg/dL LAB CREATT Creatinine 0.51 Low 0.60-1.20 mg/dL LAB GFReNR Estimated GFR >60.0 mL/Min LAB NA Sodium 123 Low Off Scale 136-145 mmol/L Result Comment: Critical Res ult Called to and read back by: NOT FIRST TIME CRITICAL at: 07/25/2024 07:07:51 by:MLG LAB K Potassium 4.2 Normal 3.5-5.1 mmol/L LAB CL Chloride 93 Low 98-107 mmol/L LAB CO2 Carbon Dioxide 24.8 Normal 21.0-31.0 mmol/L LAB GAP Anion Gap 9.4 Normal 6.0-15.0 meq/L LAB CA Calcium 9.6 Normal 8.6-10.3 mg/dL LAB CRCLPHA Creatinine Clr Calc Pharmacy 137.27 Result Comment: PERFORMED BY : [place] [address] PATHOLOGIST ADMINISTRATIVE SERVICES SPECIALIST NEEL SHELTON M.D. Performed By: #### BMP #### [facility] [address] [place], [place] [id number] [facility] BASIC METABOLIC PANEL Collected: 2024 12:29 AM Status: F Source: [facility] TYPE CODE TESTS RESULT OUT OF RANGE REFERENCE UNITS LAB GLU Glucose 78 Normal 70-100 mg/dL Result Comment: Random Gluco se Reference Range is dependent on time and content of last meal. Glucose of more than 200 mg/dL in a nonstressed, ambulatory subject supports the diagnosis of Diabetes Mellitus. ADA recommended reference range LAB BUN Blood Urea Nitrogen 7 Normal 7-25 mg/dL LAB CREATT Creatinine 0.56 Low 0.60-1.20 mg/dL LAB GFReNR Estimated GFR >60.0 mL/Min LAB NA Sodium 121 Low Off Scale 136-145 mmol/L Result Comment: Critical Res ult Called to and read back by: NOT FIRST at: 07/25/2024 01:30:39 by:[id number] LAB K Potassium 3.7 Normal 3.5-5.1 mmol/L LAB CL Chloride 89 Low 98-107 mmol/L LAB CO2 Carbon Dioxide 22.8 Normal 21.0-31.0 mmol/L LAB GAP Anion Gap 12.9 Normal 6.0-15.0 meq/L LAB CA Calcium 9.6 Normal 8.6-10.3 mg/dL LAB CRCLPHA Creatinine Clr Calc Pharmacy 125.01 Result Comment: PERFORMED BY : [place] [address] PATHOLOGIST ADMINISTRATIVE SERVICES SPECIALIST NEEL SHELTON M.D. Performed By: #### BMP #### [address] COMPLETE BLOOD COUNT AUTO DIFF Collected: 07/24/2024 8:15 PM Status: F Source: F [facility] TYPE CODE TESTS RESULT OUT OF RANGE REFERENCE UNITS LAB WBC White Blood Count 6.9 Normal 3.8-11.6 10*3/uL LAB UNWBC Uncorrected WBC 6.9 Normal 3.8-11.6 10*3/uL LAB RBC Red Blood Count 4.53 Normal 3.60-5.00 10*6/u L LAB HGB Hemoglobin 13.9 Normal 11.8-15.4 g/dL LAB HCT Hematocrit 39.2 Normal 34.0-46.4 % LAB MCV Mean Corpuscular Volume 86.7 Normal 80-100 fL LAB MCH Mean Corpuscular Hemoglobin 30.7 Normal 24.7-34.3 pg LAB MCHC Mean Corpuscular HGB Conc 35.4 High 32.0-35.0 g/dL LAB RDW Red Cell Distribution Width 13.4 Normal 11.9-15.3 % LAB PLT Platelet Count 365 Normal 150-450 10*3/uL LAB MPV Mean Platelet Volume 7.0 Normal 6.3-10.7 fL LAB MDW Monocyte Distribution Width 19.67 Normal 0.00-20.00 % LAB NE% Neutrophils % (Auto) 46.5 . % LAB LY% Lymphocytes % (Auto) 42.4 . % LAB MO% Monocytes % (Auto) 8.1 . % LAB EO% Eosinophils % (Auto) 1.9 . % LAB BA% Basophils % (Auto) 1.1 . % LAB NRBC% NRBC% 0.0 Normal 0-0.5 /100{WBC } LAB NE# Neutrophils # (Auto) 3.2 Normal 1.8-7.7 10*3/uL LAB LY# Lymphocytes # (Auto) 2.9 Normal 1.00-4.8 10*3/uL LAB MO# Monocytes # (Auto) 0.6 Normal 0.0-0.8 10*3/uL LAB EO# Eosinophils # (Auto) 0.1 Normal 0.0-0.45 10*3/uL LAB BA# Basophils # (Auto) 0.1 Normal 0.0-0.2 10*3/uL Result Comment: PERFORMED BY : [place] [address] PATHOLOGIST ADMINISTRATIVE SERVICES SPECIALIST NEEL SHELTON M.D. Performed By: #### CBC, MG, CMP #### [facility] [address] [place] [address] COMPREHENSIVE METABOLIC PANEL Collected: 07/24/2024 8 :15 PM Status: F Source: [facility] TYPE CODE TESTS RESULT OUT OF RANGE REFERENCE UNITS LAB GLU Glucose 66 Low 70-100 mg/dL Result Comment: Random Gluco se Reference Range is dependent on time and content of last meal. Glucose of more than 200 mg/dL in a nonstressed, ambulatory subject supports the diagnosis of Diabetes Mellitus. ADA recommended reference range LAB BUN Blood Urea Nitrogen 8 Normal 7-25 mg/d L LAB CREATT Creatinine 0.55 Low 0.60-1.20 mg/dL LAB GFReNR Estimated GFR >60.0 mL/Min LAB NA Sodium 121 Low Off Scale 136-145 mmol/L Result Comment: Critical Res ult Called to and read back by: ALEJANDRA KELLER at: 07/24/2024 21:12:02 by:LFM LAB K Potassium 3.7 Normal 3.5-5.1 mmol/L Result Comment: Hemolysis is present at a level that could interfere with the result. Contact lab if redraw is required LAB CL Chloride 89 Low 98-107 mmol/L LAB CO2 Carbon Dioxide 22.7 Normal 21.0-31.0 mmol/L LAB GAP Anion Gap 13.0 Normal 6.0-15.0 meq/L LAB CA Calcium 9.6 Normal 8.6-10.3 mg/dL LAB TP Total Protein 7.6 Normal 6.4-8.9 g/dL LAB ALB Albumin Level 4.6 Normal 3.5-5.7 g/dL LAB GLOB Globulin 3.0 g/dL LAB AGRATIO Albumin/Globulin Ratio 1.5 LAB BILIT Bilirubin,Total 0.4 Normal 0.3-1.0 mg/dL LAB AST Aspartate Amino Transferase 19 Normal 13-39 U/L LAB ALT Alanine Aminotransferase 21 Normal 7-52 U/L LAB ALP Alkaline Phosphatase 73 Normal 34-104 U/L LAB CRCLPHA Creatinine Clr C alc Pharmacy 127.29 Result Comment: PERFORMED BY : [place] [address] PATHOLOGIST ADMINISTRATIVE SERVICES SPECIALIST NEEL SHELTON M.D. Performed By: #### CBC, MG, CMP #### [place] [id number] [facility] MAGNESIUM Collected: 8:15 PM Status: F Source: [facility] TYPE CODE TESTS RESULT OUT OF RANGE REFERENCE UNITS LAB MG Magnesium 1.4 Low 1.9-2.7 mg/dL Result Comment: PERFORMED BY : [place] [id number] PATHOLOGIST ADMINISTRATIVE SERVICES SPECIALIST NEEL SHELTON M.D. Performed By: #### CBC, MG, CMP #### [facility] [address] [place], [place] [id number] [facility] BASIC METABOLIC PANEL Collected: 07/19/2024 4:23 AM Status: F Source: [facility] TYPE CODE TESTS RESULT OUT OF RANGE REFERENCE UNITS LAB GLU Glucose 113 High 70-100 mg/dL Result Comment: Random Gluco se Reference Range is dependent on time and content of last meal. Glucose of more than 200 mg/dL in a nonstressed, ambulatory subject supports the diagnosis of Diabetes Mellitus. ADA recommended reference range LAB BUN Blood Urea Nitrogen 6 Low 7-25 mg/dL LAB CREATT Creatinine 0.59 Low 0.60-1.20 mg/dL LAB GFReNR Estimated GFR >60.0 mL/Min LAB NA Sodium 130 Low 136-145 mmol/L LAB K Potassium 3.9 Normal 3.5-5.1 mmol/L LAB CL Chloride 100 Normal 98-107 mmol/L LAB CO2 Carbon Dioxide 23.5 Normal 21.0-31.0 mmol/L LAB GAP Anion Gap 10.4 Normal 6.0-15.0 meq/L LAB CA Calcium 9.3 Normal 8.6-10.3 mg/dL LAB CRCLPHA Creatinine Clr Calc Pharmacy 135.18 Performed By: #### MG, BMP # ### [address] MAGNESIUM Collected: 4:23 AM Status: F Source: [facility] TYPE CODE TESTS RESULT OUT OF RANGE REFERENCE UNITS LAB MG Magnesium 1.7 Low 1.9-2.7 mg/dL Result Comment: PERFORMED BY : [place] [address] PATHOLOGIST ADMINISTRATIVE SERVICES SPECIALIST NEEL SHELTON M.D. Performed By: #### MG, BMP # ### [address] COMPLETE BLOOD COUNT AUTO DIFF Collected: 07/19/2024 4:23 AM Status: F Source: F [facility] TYPE CODE TESTS RESULT OUT OF RANGE REFERENCE UNITS LAB WBC White Blood Count 4.0 Normal 3.8-11.6 10*3/uL LAB UNWBC Uncorrected WBC 4.0 Normal 3.8-11.6 10*3/uL LAB RBC Red Blood Count 4.10 Normal 3.60-5.00 10*6/u L LAB HGB Hemoglobin 12.7 Normal 11.8-15.4 g/dL LAB HCT Hematocrit 36.1 Normal 34.0-46.4 % LAB MCV Mean Corpuscular Volume 87.9 Normal 80-100 fL LAB MCH Mean Corpuscular Hemoglobin 31.0 Normal 24.7-34.3 pg LAB MCHC Mean Corpuscular HGB Conc 35.2 High 32.0-35.0 g/dL LAB RDW Red Cell Distribution Width 13.8 Normal 11.9-15.3 % LAB PLT Platelet Count 278 Normal 150-450 10*3/uL LAB MPV Mean Platelet Volume 7.1 Normal 6.3-10.7 fL LAB NE% Neutrophils % (Auto) 39.4 . % LAB LY% Lymphocytes % (Auto) 43.3 . % LAB MO% Monocytes % (Auto) 13.8 . % LAB EO% Eosinophils % (Auto) 1.8 . % LAB BA% Basophils % (Auto) 1.7 . % LAB NRBC% NRBC% 0.0 Normal 0-0.5 /100{WBC} LAB NE# Neutrophils # (Auto) 1.6 Low 1.8-7.7 10*3/uL LAB LY# Lymphocytes # (Auto) 1.8 Normal 1.00-4.8 10*3/uL LAB MO# Monocytes # (Auto) 0.6 Normal 0.0-0.8 10*3/uL LAB EO# Eosinophils # (Auto) 0.1 Normal 0.0-0.45 10*3/uL LAB BA# Basophils # (Auto) 0.1 Normal 0.0-0.2 10*3/uL Result Comment: PERFORMED BY : [place] [address] PATHOLOGIST ADMINISTRATIVE SERVICES SPECIALIST NEEL SHELTON M.D. Performed By: #### CBC #### [facility] [address] [place] [address] SODIUM Collected: 5 12:56 AM Status: F Source: [facility] TYPE CODE TESTS RESULT OUT OF RANGE REFERENCE UNITS LAB NA Sodium 128 Low 136-145 mmol/L Result Comment: PERFORMED BY : [place] [address] PATHOLOGIST ADMINISTRATIVE SERVICES SPECIALIST NEEL SHELTON M.D. Performed By: #### NA #### [facility] [address] [place], [place] [id number] [facility] SODIUM Collected: 5 9:08 PM Status: F Source: [facility] TYPE CODE TESTS RESULT OUT OF RANGE REFERENCE UNITS LAB NA Sodium 127 Low 136-145 mmol/L Result Comment: PERFORMED BY : [place] [address] PATHOLOGIST ADMINISTRATIVE SERVICES SPECIALIST NEEL SHELTON M.D. Performed By: #### NA #### [facility] [address] [address] [place], [place] [id number] [facility] SODIUM Collected: 5:15 PM Status: F Source: [facility] TYPE CODE TESTS RESULT OUT OF RANGE REFERENCE UNITS LAB NA Sodium 125 Low 136-145 mmol/L Result Comment: PERFORMED BY : [place] [address] PATHOLOGIST ADMINISTRATIVE SERVICES SPECIALIST NEEL SHELTON M.D. Performed By: #### NA #### [place] [id number] [facility] SODIUM Collected: 12:39 PM Status: F Source: [facility] TYPE CODE TESTS RESULT OUT OF RANGE REFERENCE UNITS LAB NA Sodium 123 Low Off Scale 136-145 mmol/L Result Comment: Critical Res ult Called to and read back by: NOT FIRST at: 07/18/2024 14:32:07 by:[id number] PERFORMED BY: [place] [address] PATHOLOGIST ADMINISTRATIVE SERVICES SPECIALIST NEEL SHELTON M.D. Performed By: #### NA #### [place] [id number] [place] SODIUM Collected: 5 10:19 AM Status: F Source: [facility] TYPE CODE TESTS RESULT OUT OF RANGE REFERENCE UNITS LAB NA Sodium 124 Low Off Scale 136-145 mmol/L Result Comment: Critical Res ult Called to and read back by: NOT FIRST at: 07/18/2024 11:30:04 by:[id number] PERFORMED BY: [place] [id number] PATHOLOGIST ADMINISTRATIVE SERVICES SPECIALIST NEEL SHELTON M.D. Performed By: #### NA #### [facility] [address] [place] [address] [place] GLUCOSE POCT GLUCOMETERS Collected: 07/18/2024 6:48 A M Status: F Source: [facility] TYPE CODE TESTS RESULT OUT OF RANGE REFERENCE UNITS LAB GLUPOC Glucose Poc Glucometers 111 mg/dL Result Comment: Random Gluco se Reference Range is dependent on time and content of last meal. Glucose of more than 200 mg/dL in a nonstressed, ambulatory subject supports the diagnosis of Diabetes Mellitus. PERFORMED BY: [facility] [address] [place] [id number] PATHOLOGIST ADMINISTRATIVE SERVICES SPECIALIST NEEL SHELTON M.D. Performed By: #### GLULS ### # Point of Care testing , COMPREHENSIVE METABOLIC PANEL Collected: 07/18/2024 4:18 AM Status: F Source: F [facility] TYPE CODE TESTS RESULT OUT OF RANGE REFERENCE UNITS LAB GLU Glucose 68 Low 70-100 mg/dL Result Comment: Random Gluco se Reference Range is dependent on time and content of last meal. Glucose of more than 200 mg/dL in a nonstressed, ambulatory subject supports the diagnosis of Diabetes Mellitus. ADA recommended reference range LAB BUN Blood Urea Nitrogen 5 Low 7-25 mg/dL LAB CREATT Creatinine 0.51 Low 0.60-1.20 mg/dL LAB GFReNR Estimated GFR >60.0 mL/Min LAB NA Sodium 125 Decreased 136-145 mmol/L LAB K Potassium 4.1 Normal 3.5-5.1 mmol/L LAB CL Chloride 93 Low 98-107 mmol/L LAB CO2 Carbon Dioxide 21.4 Normal 21.0-31.0 mmol/L LAB GAP Anion Gap 14.7 Normal 6.0-15.0 meq/L LAB CA Calcium 9.9 Normal 8.6-10.3 mg/dL LAB TP Total Protein 7.3 Normal 6.4-8.9 g/dL LAB ALB Albumin Level 4.4 Normal 3.5-5.7 g/dL LAB GLOB Globulin 2.9 g/dL LAB AGRATIO Albumin/Globulin Ratio 1.5 LAB BILIT Bilirubin,Total 0.6 Normal 0.3-1.0 mg/dL LAB AST Aspartate Amino Transferase 28 Normal 13-39 U/L LAB ALT Alanine Aminotransferase 19 Normal 7-52 U/L LAB ALP Alkaline Phosphatase 65 Normal 34-104 U/L LAB CRCLPHA Creatinine Clr Calc Pharmacy 156.76 Result Comment: PERFORMED BY : [facility] [address] [place] [address] PATHOLOGIST ADMINISTRATIVE SERVICES SPECIALIST NEEL SHELTON M.D. Performed By: #### CMP #### [facility] [address] COMPLETE BLOOD COUNT AUTO DIFF Collected: 07/18/2024 4:18 AM Status: F Source: F [facility] TYPE CODE TESTS RESULT OUT OF RANGE REFERENCE UNITS LAB WBC White Blood Count 5.1 Normal 3.8-11.6 10*3/uL LAB UNWBC Uncorrected WBC 5.1 Normal 3.8-11.6 10*3/uL LAB RBC Red Blood Count 4.30 Normal 3.60-5.00 10*6/u L LAB HGB Hemoglobin 13.2 Normal 11.8-15.4 g/dL LAB HCT Hematocrit 37.2 Normal 34.0-46.4 % LAB MCV Mean Corpuscular Volume 86.6 Normal 80-100 fL LAB MCH Mean Corpuscular Hemoglobin 30.7 Normal 24.7-34.3 pg LAB MCHC Mean Corpuscular HGB Conc 35.4 High 32.0-35.0 g/dL LAB RDW Red Cell Distribution Width 13.9 Normal 11.9-15.3 % LAB PLT Platelet Count 258 Normal 150-450 10*3/uL LAB MPV Mean Platelet Volume 7.2 Normal 6.3-10.7 fL LAB NE% Neutrophils % (Auto) 55.4 . % LAB LY% Lymphocytes % (Auto) 28.6 . % LAB MO% Monocytes % (Auto) 14.3 . % LAB EO% Eosinophils % (Auto) 0.8 . % LAB BA% Basophils % (Auto) 0.9 . % LAB NRBC% NRBC% 0.1 Normal 0-0.5 /100{WBC} LAB NE# Neutrophils # (Auto) 2.8 Normal 1.8-7.7 10*3/uL LAB LY# Lymphocytes # (Auto) 1.5 Normal 1.00-4.8 10*3/uL LAB MO# Monocytes # (Auto) 0.7 Normal 0.0-0.8 10*3/uL LAB EO# Eosinophils # (Auto) 0.0 Normal 0.0-0.45 10*3/uL LAB BA# Basophils # (Auto) 0.0 Normal 0.0-0.2 10*3/uL Result Comment: PERFORMED BY : [facility] [address] [place] [address] PATHOLOGIST ADMINISTRATIVE SERVICES SPECIALIST NEEL SHELTON M.D. Performed By: #### CMP, CBC, MG, PHOS #### [facility] [address] COMPREHENSIVE METABOLIC PANEL Collected: 07/18/2024 4:18 AM Status: F Source: F [facility] TYPE CODE TESTS RESULT OUT OF RANGE REFERENCE UNITS LAB GLU Glucose 67 Low 70-100 mg/dL Result Comment: Random Gluc ose Reference Range is dependent on time and content of last meal. Glucose of more than 200 mg/dL in a nonstressed, ambulatory subject supports the diagnosis of Diabetes Mellitus. ADA recommended reference range LAB BUN Blood Urea Nitrogen 5 Low 7-25 mg/dL LAB CREATT Creatinine 0.52 Low 0.60-1.20 mg/dL LAB GFReNR Estimated GFR >60.0 mL/Min LAB NA Sodium 126 Decreased 136-145 mmol/L LAB K Potassium 4.2 Normal 3.5-5.1 mmol/L LAB CL Chloride 92 Low 98-107 mmol/L LAB CO2 Carbon Dioxide 22.6 Normal 21.0-31.0 mmol/L LAB GAP Anion Gap 15.6 High 6.0-15.0 meq/L LAB CA Calcium 9.9 Normal 8.6-10.3 mg/dL LAB TP Total Protein 7.2 Normal 6.4-8.9 g/dL LAB ALB Albumin Level 4.5 Normal 3.5-5.7 g/dL LAB GLOB Globulin 2.7 g/dL LAB AGRATIO Albumin/Globulin Ratio 1.7 LAB BILIT Bilirubin,Total 0.6 Normal 0.3-1.0 mg/dL LAB AST Aspartate Amino Transferase 28 Normal 13-39 U/L LAB ALT Alanine Aminotransferase 20 Normal 7-52 U/L LAB ALP Alkaline Phosphatase 67 Normal 34-104 U/L LAB CRCLPHA Creatinine Clr Calc Pharmacy 153.74 Performed By: #### CMP, CBC, MG, PHOS #### [place] [id number] [facility] PHOSPHORUS Collected: 5 4:18 AM Status: F Source: [facility] TYPE CODE TESTS RESULT OUT OF RANGE REFERENCE UNITS LAB PHOS Phosphorus 4.7 High 2.5-4.5 mg/dL Performed By: #### CMP, CBC, MG, PHOS #### [address] MAGNESIUM Collected: 5 4:18 AM Status: F Source: [facility] TYPE CODE TESTS RESULT OUT OF RANGE REFERENCE UNITS LAB MG Magnesium 2.0 Normal 1.9-2.7 mg/dL Result Comment: PERFORMED BY : [place] [address] PATHOLOGIST ADMINISTRATIVE SERVICES SPECIALIST NEEL SHELTON M.D. Performed By: #### CMP, CBC, MG, PHOS #### [address] OSMOLALITY, URINE Collected: 5 8:28 PM Status: F Source: [facility] TYPE CODE TESTS RESULT OUT OF RANGE REFERENCE UNITS LAB UROSMO Osmolality, Urine 83 Low 250-900 mosm Result Comment: PERFORMED BY : [place] [address] PATHOLOGIST ADMINISTRATIVE SERVICES SPECIALIST NEEL SHELTON M.D. Performed By: #### UA, URDS, UROSMO, UHCG, URLYTES #### [place] [id number] [facility] ELECTROLYTES, URINE Collected: 07/18/19 8:28 PM Status: F Source: [facility] TYPE CODE TESTS RESULT OUT OF RANGE REFERENCE UNITS LAB NIK Sodium, Urine (Random) 11 mmol/L Result Comment: No reference range established LAB UK Potassium, Urine (Random) 5.6 mmol/L Result Comment: No reference range established LAB URCL Chloride, Urine (Random) <15 mmol/L Result Comment: No reference range established PERFORMED BY: [place] [address] PATHOLOGIST ADMINISTRATIVE SERVICES SPECIALIST NEEL SHELTON M.D. Performed By: #### UA, URDS, UROSMO, UHCG, URLYTES #### [place] [id number] [facility] DRUG SCREEN,URINE Collected: 07/17/2024 8:28 PM Stat us: F Source: [facility] TYPE CODE TESTS RESULT OUT OF RANGE REFERENCE UNITS LAB URAMPS Amphetamine Screen,Urine Negative Negative LAB URBARBS Barbiturate Screen,Urine Negative Negative LAB URBENZS Benzodiazepines Screen,Urine Negative Negative LAB URCOCS Cocaine Screen,Urine Negative Negative LAB UROPIS Opiate Screen,Urine Negative Negative LAB URPCPS Phencyclidine Screen,Urine Negative Negative LAB URTHCS Cannabinoid Screen,Urine Positive High Negative Result Comment: These are un confirmed results and should not be used for legal purposes. Drug Cut-Off Concentration: AMPH 1000 ng/mL DALLAS 200 ng/mL DAVID 200 ng/mL COCM 300 ng/mL OP 300 ng/mL PCP 25 ng/mL THC 20 ng/mL PERFORMED BY: [place] [address] PATHOLOGIST ADMINISTRATIVE SERVICES SPECIALIST NEEL SHELTON M.D. Performed By: #### UA, URDS, UROSMO, UHCG, URLYTES #### [place] [id number] [facility] URINALYSIS Collected: 07/17/2024 8:28 PM Status: F Source: [facility] Order Comment: Name Collecti on Type:: Clean-Voided Midstream TYPE CODE TESTS RESULT OUT OF RANGE REFERENCE UNITS LAB UCOL Color,Urine Colorless Yellow LAB UAPP Appearance,Uri ne Clear Clear LAB USG Specificy Orosi,Urine 1.004 Normal 1.001-1.030 LAB UPH pH,Urine 5.5 Normal 5.0-9.0 LAB ULE Leukocyte Esterase,Urine Negative Negative LAB UNIT Nitrite,Urine Negative Negative LAB UPRO Protein,Urine Negative Negative LAB UGL Glucose,Urine (UA) Normal Normal LAB UKET Ketones,Urine 1+ High Negative LAB UURO Urobilinogen,U rine Normal Normal LAB UBIL Bilirubin,Urin e Negative Negative LAB UBLD Occult Blood,Urine Negative Negative Performed By: #### UA, URDS, UROSMO, UHCG, URLYTES #### [facility] [address] HCG,URINE Collected: 07/17/2024 8:28 PM Status: F Source: [facility] Order Comment: Name Collecti on Type:: Clean-Voided Midstream TYPE CODE TESTS RESULT OUT OF RANGE REFERENCE UNITS LAB UHCGQ HCG Qualitative,U rine Negative Result Comment: PERFORMED BY : [place] [address] PATHOLOGIST ADMINISTRATIVE SERVICES SPECIALIST NEEL SHELTON M.D. Performed By: #### UA, URDS, UROSMO, UHCG, URLYTES #### [address] OSMOLALITY Collected: 8:20 PM Status: F Source: [facility] TYPE CODE TESTS RESULT OUT OF RANGE REFERENCE UNITS LAB OSMO Osmolality 242 Low 278-305 mosm Result Comment: PERFORMED BY : [place] [address] PATHOLOGIST ADMINISTRATIVE SERVICES SPECIALIST NEEL SHELTON M.D. Performed By: #### OSMO #### [address] COMPLETE BLOOD COUNT AUTO DIFF Collected: 07/17/2024 8:20 PM Status: F Source: F [facility] TYPE CODE TESTS RESULT OUT OF RANGE REFERENCE UNITS LAB WBC White Blood Count 5.3 Normal 3.8-11.6 10*3/uL LAB UNWBC Uncorrected WBC 5.3 Normal 3.8-11.6 10*3/uL LAB RBC Red Blood Count 4.29 Normal 3.60-5.00 10*6/u L LAB HGB Hemoglobin 13.1 Normal 11.8-15.4 g/dL LAB HCT Hematocrit 36.7 Normal 34.0-46.4 % LAB MCV Mean Corpuscular Volume 85.4 Normal 80-100 fL LAB MCH Mean Corpuscular Hemoglobin 30.7 Normal 24.7-34.3 pg LAB MCHC Mean Corpuscular HGB Conc 35.9 High 32.0-35.0 g/dL LAB RDW Red Cell Distribution Width 13.7 Normal 11.9-15.3 % LAB PLT Platelet Count 264 Normal 150-450 10*3/uL LAB MPV Mean Platelet Volume 7.1 Normal 6.3-10.7 fL LAB MDW Monocyte Distribution Width 18.33 Normal 0.00-20.00 % LAB NE% Neutrophils % (Auto) 48.0 . % LAB LY% Lymphocytes % (Auto) 36.6 . % LAB MO% Monocytes % (Auto) 13.3 . % LAB EO% Eosinophils % (Auto) 0.9 . % LAB BA% Basophils % (Auto) 1.2 . % LAB NRBC% NRBC% 0.1 Normal 0-0.5 /100{WBC } LAB NE# Neutrophils # (Auto) 2.5 Normal 1.8-7.7 10*3/uL LAB LY# Lymphocytes # (Auto) 1.9 Normal 1.00-4.8 10*3/uL LAB MO# Monocytes # (Auto) 0.7 Normal 0.0-0.8 10*3/uL LAB EO# Eosinophils # (Auto) 0.0 Normal 0.0-0.45 10*3/uL LAB BA# Basophils # (Auto) 0.1 Normal 0.0-0.2 10*3/uL Result Comment: PERFORMED BY : [place] [address] PATHOLOGIST ADMINISTRATIVE SERVICES SPECIALIST NEEL SHELTON M.D. Performed By: #### HS TROP, BNP, PTT, PT, TSH3, LIPASE, MG, CBC, BMP, ETOH, CK, OSMO #### [place] [id number] [facility] CREATINE KINASE Collected: 07/17/2024 8:20 PM Status : F Source: [facility] TYPE CODE TESTS RESULT OUT OF RANGE REFERENCE UNITS LAB CK Creatine Kinase 222 Normal 30-223 U/L Performed By: #### HS TROP, BNP, PTT, PT, TSH3, LIPASE, MG, CBC, BMP, ETOH, CK, OSMO #### [address] TROPONIN I HIGH SENSITIVITY Collected: 07/17/2024 8:2 0 PM Status: F Source: [facility] TYPE CODE TESTS RESULT OUT OF RANGE REFERENCE UNITS LAB HS TROP Troponin I High Sensitivity 12 Normal 0-15 Result Comment: The Troponin units of report have been changed to meet the Chest Pain Accreditation requirement, element EC5.M1l2. Troponin units are changed from pg/ml to ng/L. Also, the decimal is removed and results are in whole numbers. PERFORMED BY: [place] [address] PATHOLOGIST ADMINISTRATIVE SERVICES SPECIALIST NEEL SHELTON M.D. Performed By: #### HS TROP, BNP, PTT, PT, TSH3, LIPASE, MG, CBC, BMP, ETOH, CK, OSMO #### [place] [id number] [facility] ETHYL ALCOHOL PROFILE Collected: 07/17/2024 8:20 PM Status: F Source: [facility] TYPE CODE TESTS RESULT OUT OF RANGE REFERENCE UNITS LAB ETHYALC Ethanol <10 mg/dL LAB ETHYLALC% Percent Ethanol Test not performed Result Comment: PERFORMED BY : [place] [address] PATHOLOGIST ADMINISTRATIVE SERVICES SPECIALIST NEEL SHELTON M.D. Performed By: #### HS TROP, BNP, PTT, PT, TSH3, LIPASE, MG, CBC, BMP, ETOH, CK, OSMO #### [place] [id number] [facility] B-TYPE NATRIURETIC PEPTIDE Collected: 07/17/2024 8:20 PM Status: F Source: [facility] TYPE CODE TESTS RESULT OUT OF RANGE REFERENCE UNITS LAB BNP B-Type Natriuretic Peptide 42.0 Normal 5-100 pg/mL Result Comment: PERFORMED BY : [place] [id number] PATHOLOGIST ADMINISTRATIVE SERVICES SPECIALIST NEEL SHELTON M.D. Performed By: #### HS TROP, BNP, PTT, PT, TSH3, LIPASE, MG, CBC, BMP, ETOH, CK, OSMO #### [place] [id number] [facility] PROTHROMBIN TIME INR Collected: 07/17/2024 8:20 PM S tatus: F Source: [facility] TYPE CODE TESTS RESULT OUT OF RANGE REFERENCE UNITS LAB R PT Prothrombin Time 13.3 High 9.0-12.9 s Result Comment: A hematocrit value greater than 55% may lead to inaccurate results in coagulation testing. Patients having hematocrit values >55% require a special collection tube for coagulation studies. Please contact the laboratory at [phone] for redraw instructions. LAB INR INR 1.2 Result Comment: INR Therapeu tic Range A) Pre- and Peroperative OAT started two weeks before surgery. NOT HIP SURGERY: 1.5 - 2.5 HIP SURGERY: 2 - 3 B) Primary and secondary prevention of venous THROMBOSIS: 2 - 3 C) Active venous thrombosis, pulmonary embolism and prevention of recurrent venous thrombosis: 2 - 3 D) Prevention of arterial thromboembolism including patients with mechanical heart valves: 3 - 4.5 Performed By: #### HS TROP, BNP, PTT, PT, TSH3, LIPASE, MG, CBC, BMP, ETOH, CK, OSMO #### [facility] [address] [place] [address] PARTIAL THROMBOPLASTIN TIME Collected: 07/17/2024 8:2 0 PM Status: F Source: [facility] TYPE CODE TESTS RESULT OUT OF RANGE REFERENCE UNITS LAB PTT Partial Thromboplastin Time 35.7 Normal 25.1-36.5 s Result Comment: A hematocrit value greater than 55% may lead to inaccurate results in coagulation testing. Patients having hematocrit values >55% require a special collection tube for coagulation studies. Please contact the laboratory at [phone] for redraw instructions. PERFORMED BY: [place] [address] PATHOLOGIST ADMINISTRATIVE SERVICES SPECIALIST NEEL SHELTON M.D. Performed By: #### HS TROP, BNP, PTT, PT, TSH3, LIPASE, MG, CBC, BMP, ETOH, CK, OSMO #### [facility] [address] [place] [address] OSMOLALITY Collected: 8:20 PM Status: F Source: [facility] TYPE CODE TESTS RESULT OUT OF RANGE REFERENCE UNITS LAB OSMO Osmolality 243 Low 278-305 mosm Result Comment: PERFORMED BY : [place] [address] PATHOLOGIST ADMINISTRATIVE SERVICES SPECIALIST NEEL SHELTON M.D. Performed By: #### HS TROP, BNP, PTT, PT, TSH3, LIPASE, MG, CBC, BMP, ETOH, CK, OSMO #### [address] BASIC METABOLIC PANEL Collected: 07/17/2024 8:20 PM Status: F Source: [facility] TYPE CODE TESTS RESULT OUT OF RANGE REFERENCE UNITS LAB GLU Glucose 71 Normal 70-100 mg/dL Result Comment: Random Gluco se Reference Range is dependent on time and content of last meal. Glucose of more than 200 mg/dL in a nonstressed, ambulatory subject supports the diagnosis of Diabetes Mellitus. ADA recommended reference range LAB BUN Blood Urea Nitrogen 5 Low 7-25 mg/dL LAB CREATT Creatinine 0.52 Low 0.60-1.20 mg/dL LAB GFReNR Estimated GFR >60.0 mL/Min LAB NA Sodium 117 Low Off Scale 136-145 mmol/L Result Comment: Critical Res ult Called to and read back by: SAIDA HERNANDEZ at: 07/17/2024 20:53:49 by:[id number] LAB K Potassium 4.0 Normal 3.5-5.1 mmol/L LAB CL Chloride 84 Low 98-107 mmol/L LAB CO2 Carbon Dioxide 23.0 Normal 21.0-31.0 mmol/L LAB GAP Anion Gap 14.0 Normal 6.0-15.0 meq/L LAB CA Calcium 10.1 Normal 8.6-10.3 mg/dL LAB CRCLPHA Creatinine Clr Calc Pharmacy 146.89 Performed By: #### HS TROP, BNP, PTT, PT, TSH3, LIPASE, MG, CBC, BMP, ETOH, CK, OSMO #### [address] MAGNESIUM Collected: 8:20 PM Status: F Source: [facility] TYPE CODE TESTS RESULT OUT OF RANGE REFERENCE UNITS LAB MG Magnesium 1.5 Low 1.9-2.7 mg/dL Performed By: #### HS TROP, BNP, PTT, PT, TSH3, LIPASE, MG, CBC, BMP, ETOH, CK, OSMO #### [address] LIPASE Collected: 8:20 PM Status: F Source: [facility] TYPE CODE TESTS RESULT OUT OF RANGE REFERENCE UNITS LAB LIPASE Lipase 3.0 Low 11.0-82.0 U/L Performed By: #### HS TROP, BNP, PTT, PT, TSH3, LIPASE, MG, CBC, BMP, ETOH, CK, OSMO #### [address] THYROID STIMULATING HORMONE Collected: 07/17/2024 8:2 0 PM Status: F Source: [facility] TYPE CODE TESTS RESULT OUT OF RANGE REFERENCE UNITS LAB TSH3 Thyroid Stimulating Hormone 1.43 Normal 0.45-5.33 u[iU]/mL Result Comment: PERFORMED BY : [place] [address] PATHOLOGIST ADMINISTRATIVE SERVICES SPECIALIST NEEL SHELTON M.D. Performed By: #### HS TROP, BNP, PTT, PT, TSH3, LIPASE, MG, CBC, BMP, ETOH, CK, OSMO #### [address] ECG 12 LEAD ECG Observed: 07/17/2024 7:49 PM Status: COMPLETED Source: [facility] [place] [address] Electrocardiograph Report Signed Patient: Shikha Loera MR#: [id number] : 1985 Acct:[id number] Age/Sex: 39 / F ADM Date: 07/17/24 Loc: Room: [address] [place] [address] Type: ADM IN Attending Dr: Sajan Knapp MD Ordering Provider: James Kessler DO Date of Service: 07/17/2402/01/2000 ECG/ECG 12 lead ECG: Recheck/Abnormal Lab/Rx Copies to: Test Reason : Blood Pressure : 177/100 mmHG Vent. Rate : 98 BPM Atrial Rate : 98 BPM P-R Int : 172 ms QRS Dur : 78 ms QT Int : 358 ms P-R-T Axes : 63 34 55 degrees QTcB Int : 457 ms Normal sinus rhythm Confirmed by James KESSLER DO ([id number]) on 07/17/2024 10:26:23 PM Referred By: Electronically Signed By: James KESSLER DO Transcribed By: MUS Signed By James Kessler DO 0 07/17/24 2226 URINE NURSING Collected: 06/04/2024 5 :15 PM Status: COMPLETED Source: [facility] TYPE CODE TESTS RESULT OUT OF RANGE REFERENCE UNITS LAB NUCG(LOINC) URINE NURSING Negative (qualifier value) NEG Performed By: #### 2106-3 ## ## [facility] ([id number]) [address] [place] [address] URN MACROSCOPIC GEREMIAS Collected: 06/04/2024 5:14 PM Status: COMPLETED Source: [facility] TYPE CODE TESTS RESULT OUT OF RANGE REFERENCE UNITS LAB SPGRN(LOINC) SPECIFIC GRAVITY GEREMIAS <=1.005 1.003-1.035 LAB LESTN(LOINC) LEUKOCYTE ESTERASE GEREMIAS Negative (qualifier value) NEG LAB NITN(LOINC) NITRITE GEREMIAS Negative (qualifier value) NEG LAB PHURN(LOINC) PH GEREMIAS 5.5 5.0-8.5 LAB PRURN(LOINC) PROTEIN GEREMIAS Negative (qualifier value) NEG mg/dL LAB GLURN(LOINC) GLUCOSE GEREMIAS Negative (qualifier value) NEG mg/dL LAB KETN(LOINC) KETONES GEREMIAS Negative (qualifier value) NEG mg/dL LAB UROBN(LOINC) UROBILINOGEN GEREMIAS 0.2 <1.1 eu /dL LAB BILEN(LOINC) BILIRUBIN GEREMIAS Negative (qualifier value) NEG LAB BLURN(LOINC) BLOOD/HGB GEREMIAS Negative (qualifier value) NEG Performed By: #### NUM #### [facility] ([id number]) [address] [place] [id number] DRUG SCREEN, URINE Collected: 06/04/2024 4:45 PM Sta tus: COMPLETED Source: [facility] TYPE CODE TESTS RESULT OUT OF RANGE REFERENCE UNITS LAB AMPH(LOINC) AMPHETAMINE/METH AM P Negative (qualifier value) NEG Result Comment: AMPH/METH sc reening cut off = 1000 ng/mL LAB DALLAS(LOINC) BARBITURATES Negative (qualifier value) NEG Result Comment: Barbiturates screening cut off value = 200 ng/mL LAB BENZO(LOINC) BENZODIAZEPINES Positive (qualifier value) Abnormal NEG Result Comment: Confirmation available upon request. Benzodiazepines screening cut off value = 200 ng/mL LAB THC(LOINC) CANNABINOIDS Positive (qualifier value) Abnormal NEG Result Comment: Confirmation available upon request. Cannabinoids/THC screening cut off value = 50 ng/mL LAB COKE(LOINC) COCAINE METABOLITE Negative (qualifier value) NEG Result Comment: Cocaine scre ening cut off value = 300 ng/mL LAB OPIAT(LOINC) OPIATES Negative (qualifier value) NEG Result Comment: Opiates scre ening cut off value = 300 ng/mL NOTE: This test is used for the detection of codeine, hydrocodone (>1000 ng/mL), morphine and hydromorphone (>900 ng/mL) in urine. LAB PCP(LOINC) PHENCYCLIDINE Negative (qualifier value) NEG Result Comment: Phencyclidin e screening cut off value = 25 ng/mL LAB OXYX(LOINC) OXYCODONE Negative (qualifier value) NEG Result Comment: Oxycodone sc reening cut off value = 300 ng/mL NOTE: This test is used for the detection of oxycodone and oxymorphone in urine. LAB METH(LOINC) METHADONE Negative (qualifier value) NEG Result Comment: Methadone sc reening cut off value = 300 ng/mL. LAB MDMA(LOINC) ECSTASY Negative (qualifier value) NEG Result Comment: Ecstasy scre ening cut off value = 500 ng/mL This report is intended for use in clinical monitoring or management of patients. Performed By: #### DSU #### [facility] ([id number]) [address] [place] [address], [place] [address] COMPREHENSIVE METABOLIC PANEL Collected : 06/04/2024 12:19 PM Status: COMPLETED Source: [facility] TYPE CODE TESTS RESULT OUT OF RANGE REFERENCE UNITS LAB NA(LOINC) SODIUM 131 Low 134-146 mmol/L LAB K(LOINC) POTASSIUM 3.7 3.5-5.0 mmol/L LAB CL(LOINC) CHLORIDE 95 Low 98-109 mmol/L LAB CO2(LOINC) CARBON DIOXIDE 20 Low 22-32 mmol/L LAB AGAP(LOINC) ANION GAP 16 High 5-15 mmol/L LAB BUN(LOINC) BLOOD UREA NITROGEN 6 5-23 mg/dL LAB CRET(LOINC) CREATININE 0.53 0.40-1.00 mg/dL Result Comment: METHOD TRACE ABLE TO IDMS STANDARD LAB GLU(LOINC) GLUCOSE 131 High 65-99 mg/dL LAB CA(LOINC) CALCIUM 9.3 8.5-10.5 mg/dL LAB TP(LOINC) TOTAL PROTEIN 9.2 High 6.0-8.0 g/dL LAB ALB(LOINC) ALBUMIN 5.1 3.2-5.3 g/dL LAB ALK(LOINC) ALKALINE PHOSPHATASE 121 39-130 U/L LAB AST(LOINC) AST 141 High 0-41 U/L LAB ALT1(LOINC) ALT 85 High 0-31 U/L LAB TBIL(LOINC) BILIRUBIN,TOTAL 0.9 0.3-1.2 mg/d L LAB EGFR(LOINC) eGFR (CKD-EPI) NON-RACE DEPENDENT >90 >59 ml/min/1 .73sq.m Result Comment: Reported eGFR is based on the CKD-EPI 2020 equation that does not use a race coefficient. Performed By: #### DUTCH, 1911 3-, CBCA, 5643-2 #### [facility] ([id number]) [address] [place] [id number] MAGNESIUM Collected: 06/04/2024 12:19 PM Status: COMPLETED Source: [facility] TYPE CODE TESTS RESULT OUT OF RANGE REFERENCE UNITS LAB MG(LOINC) MAGNESIUM 1.7 Low 1.8-2.6 mg/dL Performed By: #### CMP, 1911 3-9, CBCA, 5643-2 #### [facility] ([id number]) [address] [place] [id number] CBC AND AUTO DIFF Collected: 06/04/2024 12:19 P M Status: COMPLETED Source: [facility] TYPE CODE TESTS RESULT OUT OF RANGE REFERENCE UNITS LAB WBC(LOINC) WBC COUNT 7.5 4.0-11.0 X10E9/L LAB RBC(LOINC) RBC COUNT 4.80 3.80-5.20 X10E12/L LAB HGB(LOINC) HEMOGLOBIN 15.4 11.7-15.5 g/dL LAB HCT(LOINC) HEMATOCRIT 45.1 35-47 % LAB MCV(LOINC) MCV 94 80-100 fL LAB MCH(LOINC) MCH 32.1 27-34 pg LAB MCHC(LOINC) MCHC 34.1 32-36 g/dL LAB RDW(LOINC) RDW 15.2 High 11.5-15.0 % LAB PLTC(LOINC) PLATELET COUNT 546 High 150-450 X10E9 /L LAB MPV(LOINC) MPV 7.2 7-12 fL LAB NEUT(LOINC) % NEUTROPHILS 71.9 % LAB LYMP(LOINC) % LYMPHOCYTES 23.0 % LAB MONO(LOINC) % MONOCYTES 4.6 % LAB EOS(LOINC) % EOSINOPHILS 0.2 % LAB BASO(LOINC) % BASOPHILS 0.3 % LAB ANEUT(LOINC) ABSOLUTE NEUTROPHIL 5.4 1.5-6.6 X10E9/L LAB ALYMP(LOINC) ABSOLUTE LYMPHOCYTE 1.7 1.0-3.5 X10E9/L LAB AMONO(LOINC) ABSOLUTE MONOCYTE 0.3 0-0.9 X10E9/L LAB AEOS(LOINC) ABSOLUTE EOSINOPHIL 0.0 0.0-0.4 X10E9/L LAB ABASO(LOINC) ABSOLUTE BASOPHIL 0.0 0.0-0.2 X10E9/L Performed By: #### DUTCH, 1911 3-9, CBCA, 5643-2 #### [facility] ([id number]) [address] [place] [address], [place] [address] ETHANOL Collected: 5 12:19 PM Status: COMPLETED Source: [facility] TYPE CODE TESTS RESULT OUT OF RANGE REFERENCE UNITS LAB ALCO(LOINC) ETHANOL 0.37 High Alert 0.00-0.08 g/dL Result Comment: This report is intended for use in clinical monitoring or management of patients. Performed By: #### DUTCH, 1911 3-9, CBCA, 5643-2 #### [facility] ([id number]) [address] [facility], [place] [address] COMPLETE BLOOD COUNT AUTO DIFF Collected: 05/23/2024 7:28 AM Status: F Source: F [facility] Order Comment: dupe TYPE CODE TESTS RESULT OUT OF RANGE REFERENCE UNITS LAB WBC White Blood Count 3.5 Low 3.8-11.6 10*3/uL LAB UNWBC Uncorrected WBC 3.5 Low 3.8-11.6 10*3/uL LAB RBC Red Blood Count 4.03 Normal 3.60-5.00 10*6/u L LAB HGB Hemoglobin 12.8 Normal 11.8-15.4 g/dL LAB HCT Hematocrit 37.2 Normal 34.0-46.4 % LAB MCV Mean Corpuscular Volume 92.2 Normal 80-100 fL LAB MCH Mean Corpuscular Hemoglobin 31.7 Normal 24.7-34.3 pg LAB MCHC Mean Corpuscular HGB Conc 34.4 Normal 32.0-35.0 g/dL LAB RDW Red Cell Distribution Width 14.5 Normal 11.9-15.3 % LAB PLT Platelet Count 103 Low 150-450 10*3/uL LAB MPV Mean Platelet Volume 9.4 Normal 6.3-10.7 fL LAB NE% Neutrophils % (Auto) 57.3 . % LAB LY% Lymphocytes % (Auto) 30.1 . % LAB MO% Monocytes % (Auto) 10.2 . % LAB EO% Eosinophils % (Auto) 1.4 . % LAB BA% Basophils % (Auto) 1.0 . % LAB NRBC% NRBC% 0.1 Normal 0-0.5 /100{WBC} LAB NE# Neutrophils # (Auto) 2.0 Normal 1.8-7.7 10*3/uL LAB LY# Lymphocytes # (Auto) 1.1 Normal 1.00-4.8 10*3/uL LAB MO# Monocytes # (Auto) 0.4 Normal 0.0-0.8 10*3/uL LAB EO# Eosinophils # (Auto) 0.0 Normal 0.0-0.45 10*3/uL LAB BA# Basophils # (Auto) 0.0 Normal 0.0-0.2 10*3/uL Result Comment: PERFORMED BY : [place] [id number] PATHOLOGIST ADMINISTRATIVE SERVICES SPECIALIST NEEL SHELTON M.D. Performed By: #### JACKIE, CBC #### [place] [id number] [facility] BASIC METABOLIC PANEL Collected: 05/23/2024 7:28 AM Status: F Source: [facility] Order Comment: dupe TYPE CODE TESTS RESULT OUT OF RANGE REFERENCE UNITS LAB GLU Glucose 156 High 70-100 mg/dL Result Comment: Random Gluco se Reference Range is dependent on time and content of last meal. Glucose of more than 200 mg/dL in a nonstressed, ambulatory subject supports the diagnosis of Diabetes Mellitus. ADA recommended reference range LAB BUN Blood Urea Nitrogen 4 Low 7-25 mg/dL LAB CREATT Creatinine 0.74 Normal 0.60-1.20 mg/dL LAB GFReNR Estimated GFR >60.0 mL/Min LAB NA Sodium 139 Normal 136-145 mmol/L LAB K Potassium 3.1 Low 3.5-5.1 mmol/L LAB CL Chloride 105 Normal 98-107 mmol/L LAB CO2 Carbon Dioxide 25.1 Normal 21.0-31.0 mmol/L LAB GAP Anion Gap 12.0 Normal 6.0-15.0 meq/L LAB CA Calcium 10.2 Normal 8.6-10.3 mg/dL LAB CRCLPHA Creatinine Clr Calc Pharmacy 94.60 Result Comment: PERFORMED BY : [place] [id number] PATHOLOGIST ADMINISTRATIVE SERVICES SPECIALIST NEEL SHELTON M.D. Performed By: #### JACKIE, CBC #### [place] [id number] [facility] GLUCOSE POCT GLUCOMETERS Collected: 05/22/2024 11:59 AM Status: F Source: [facility] TYPE CODE TESTS RESULT OUT OF RANGE REFERENCE UNITS LAB GLUPOC Glucose Poc Glucometers 118 mg/dL Result Comment: Random Gluco se Reference Range is dependent on time and content of last meal. Glucose of more than 200 mg/dL in a nonstressed, ambulatory subject supports the diagnosis of Diabetes Mellitus. LAB COMM1 Commemt1 Glu2: Cleaned Meter Result Comment: PERFORMED BY : [facility] [place] [address] PATHOLOGIST ADMINISTRATIVE SERVICES SPECIALIST NEEL SHELTON M.D. Performed By: #### GLULS ### # Point of Care testing , COMPLETE BLOOD COUNT AUTO DIFF Collected: 05/22/2024 4:32 AM Status: F Source: F [facility] TYPE CODE TESTS RESULT OUT OF RANGE REFERENCE UNITS LAB WBC White Blood Count 3.5 Low 3.8-11.6 10*3/uL LAB UNWBC Uncorrected WBC 3.5 Low 3.8-11.6 10*3/uL LAB RBC Red Blood Count 3.97 Normal 3.60-5.00 10*6/u L LAB HGB Hemoglobin 12.4 Normal 11.8-15.4 g/dL LAB HCT Hematocrit 36.4 Normal 34.0-46.4 % LAB MCV Mean Corpuscular Volume 91.8 Normal 80-100 fL LAB MCH Mean Corpuscular Hemoglobin 31.3 Normal 24.7-34.3 pg LAB MCHC Mean Corpuscular HGB Conc 34.1 Normal 32.0-35.0 g/dL LAB RDW Red Cell Distribution Width 14.3 Normal 11.9-15.3 % LAB PLT Platelet Count 82 Low 150-450 10*3/uL LAB MPV Mean Platelet Volume 8.7 Normal 6.3-10.7 fL LAB NE% Neutrophils % (Auto) 35.4 . % LAB LY% Lymphocytes % (Auto) 51.3 . % LAB MO% Monocytes % (Auto) 9.2 . % LAB EO% Eosinophils % (Auto) 3.1 . % LAB BA% Basophils % (Auto) 1.0 . % LAB NRBC% NRBC% 0.1 Normal 0-0.5 /100{WBC} LAB NE# Neutrophils # (Auto) 1.3 Low 1.8-7.7 10*3/uL LAB LY# Lymphocytes # (Auto) 1.8 Normal 1.00-4.8 10*3/uL LAB MO# Monocytes # (Auto) 0.3 Normal 0.0-0.8 10*3/uL LAB EO# Eosinophils # (Auto) 0.1 Normal 0.0-0.45 10*3/uL LAB BA# Basophils # (Auto) 0.0 Normal 0.0-0.2 10*3/uL Result Comment: PERFORMED BY : [place] [address] PATHOLOGIST ADMINISTRATIVE SERVICES SPECIALIST NEEL SHELTON M.D. Performed By: #### CBC, MG, BMP #### [address] BASIC METABOLIC PANEL Collected: 05/22/2024 4:32 AM Status: F Source: [facility] TYPE CODE TESTS RESULT OUT OF RANGE REFERENCE UNITS LAB GLU Glucose 125 High 70-100 mg/dL Result Comment: Random Gluco se Reference Range is dependent on time and content of last meal. Glucose of more than 200 mg/dL in a nonstressed, ambulatory subject supports the diagnosis of Diabetes Mellitus. ADA recommended reference range LAB BUN Blood Urea Nitrogen 5 Low 7-25 mg/dL LAB CREATT Creatinine 0.78 Normal 0.60-1.20 mg/dL LAB GFReNR Estimated GFR >60.0 mL/Min LAB NA Sodium 138 Normal 136-145 mmol/L LAB K Potassium 3.6 Normal 3.5-5.1 mmol/L LAB CL Chloride 104 Normal 98-107 mmol/L LAB CO2 Carbon Dioxide 28.5 Normal 21.0-31.0 mmol/L LAB GAP Anion Gap 9.1 Normal 6.0-15.0 meq/L LAB CA Calcium 9.2 Normal 8.6-10.3 mg/dL LAB CRCLPHA Creatinine Clr Calc Pharmacy 87.78 Performed By: #### CBC, MG, BMP #### [address] MAGNESIUM Collected: 4:32 AM Status: F Source: [facility] TYPE CODE TESTS RESULT OUT OF RANGE REFERENCE UNITS LAB MG Magnesium 1.6 Low 1.9-2.7 mg/dL Result Comment: PERFORMED BY : [place] [address] PATHOLOGIST ADMINISTRATIVE SERVICES SPECIALIST NEEL SHELTON M.D. Performed By: #### CBC, MG, BMP #### [place] [id number] [facility] COMPLETE BLOOD COUNT AUTO DIFF Collected: 05/21/2024 4:27 AM Status: F Source: F [facility] TYPE CODE TESTS RESULT OUT OF RANGE REFERENCE UNITS LAB WBC White Blood Count 5.0 Normal 3.8-11.6 10*3/uL LAB UNWBC Uncorrected WBC 5.0 Normal 3.8-11.6 10*3/uL LAB RBC Red Blood Count 4.27 Normal 3.60-5.00 10*6/u L LAB HGB Hemoglobin 13.3 Normal 11.8-15.4 g/dL LAB HCT Hematocrit 38.7 Normal 34.0-46.4 % LAB MCV Mean Corpuscular Volume 90.8 Normal 80-100 fL LAB MCH Mean Corpuscular Hemoglobin 31.2 Normal 24.7-34.3 pg LAB MCHC Mean Corpuscular HGB Conc 34.4 Normal 32.0-35.0 g/dL LAB RDW Red Cell Distribution Width 14.6 Normal 11.9-15.3 % LAB PLT Platelet Count 92 Decreased 150-450 10*3/uL LAB MPV Mean Platelet Volume 8.2 Normal 6.3-10.7 fL LAB NE% Neutrophils % (Auto) 55.2 . % LAB LY% Lymphocytes % (Auto) 30.7 . % LAB MO% Monocytes % (Auto) 11.5 . % LAB EO% Eosinophils % (Auto) 1.4 . % LAB BA% Basophils % (Auto) 1.2 . % LAB NRBC% NRBC% 0.1 Normal 0-0.5 /100{WBC } LAB NE# Neutrophils # (Auto) 2.7 Normal 1.8-7.7 10*3/uL LAB LY# Lymphocytes # (Auto) 1.5 Normal 1.00-4.8 10*3/uL LAB MO# Monocytes # (Auto) 0.6 Normal 0.0-0.8 10*3/uL LAB EO# Eosinophils # (Auto) 0.1 Normal 0.0-0.45 10*3/uL LAB BA# Basophils # (Auto) 0.1 Normal 0.0-0.2 10*3/uL Result Comment: PERFORMED BY : [facility] [address] [place] [address] PATHOLOGIST ADMINISTRATIVE SERVICES SPECIALIST NEEL SHELTON M.D. Performed By: #### CBC #### [facility] [address] [place] [id number] [facility] COMPREHENSIVE METABOLIC PANEL Collected: 05/21/2024 4 :27 AM Status: F Source: [facility] TYPE CODE TESTS RESULT OUT OF RANGE REFERENCE UNITS LAB GLU Glucose 87 Normal 70-100 mg/dL Result Comment: Random Gluco se Reference Range is dependent on time and content of last meal. Glucose of more than 200 mg/dL in a nonstressed, ambulatory subject supports the diagnosis of Diabetes Mellitus. ADA recommended reference range LAB BUN Blood Urea Nitrogen 6 Low 7-25 mg/d L LAB CREATT Creatinine 0.64 Normal 0.60-1.20 mg/dL LAB GFReNR Estimated GFR >60.0 mL/Min LAB NA Sodium 137 Normal 136-145 mmol/L LAB K Potassium 3.8 Normal 3.5-5.1 mmol/L LAB CL Chloride 101 Normal 98-107 mmol/L LAB CO2 Carbon Dioxide 29.2 Normal 21.0-31.0 mmol/L LAB GAP Anion Gap 10.6 Normal 6.0-15.0 meq/L LAB CA Calcium 9.3 Normal 8.6-10.3 mg/dL LAB TP Total Protein 6.6 Normal 6.4-8.9 g/dL LAB ALB Albumin Level 3.9 Normal 3.5-5.7 g/dL LAB GLOB Globulin 2.7 g/dL LAB AGRATIO Albumin/Globulin Ratio 1.4 LAB BILIT Bilirubin,Total 1.5 High 0.3-1.0 mg/dL Result Comment: Samples from patients who have taken Naproxen have shown spurious elevation in Total Bilirubin levels. A metabolite of Naproxen, O-desmethylnaproxen, has been shown to interfere with the Katya-Rosey method for measuring Total Bilirubin. LAB AST Aspartate Amino Transferase 64 High 13-39 U/L LAB ALT Alanine Aminotransferase 36 Normal 7-52 U/L LAB ALP Alkaline Phosphatase 92 Normal 34-104 U/L LAB CRCLPHA Creatinine Clr C alc Pharmacy 106.99 Performed By: #### CMP, LIPI D #### [facility] [address] [place] [id number] [facility] LIPID PANEL Collected: 05/21/2024 4:27 AM Status: F Source: [facility] TYPE CODE TESTS RESULT OUT OF RANGE REFERENCE UNITS LAB CHOL Cholesterol 259 High 140-200 mg/dL Result Comment: Chol less th an 200 mg/dl low risk Chol 201-239 mg/dl borderline risk Chol 240 mg/dl and greater high risk LAB HDL HDL Cholesterol 121 High 23-92 mg/dL Result Comment: HDL CHOL ATP -III CLASSIFICATION Cardiovascular Risk HDL > or equal to 60 mg/dL LOW HDL < 40 mg/dL HIGH LAB TRIG W REF Triglyceride w/Reflex 80 Normal 0-149 mg/dL Result Comment: TRIG ATP III CLASSIFICATION TRIG less than 150 mg/dL Normal TRIG 150-199 mg/dL Borderline high TRIG 200-500 mg/dL High TRIG greater than 500 mg/dL Very high Standard traceable to the Center for Disease Conrtrol and Prevention (CDC) test method. LAB LDLC LDL Cholesterol,Calc ulated 122 High 0-100 mg/dL Result Comment: LDL ATP III CLASSIFICATION LDL less than 100 mg/dL Optimal LDL 100-129 mg/dL Near or above optimal LDL 130-159 mg/dL Borderline high LDL 160-189 mg/dL High LDL greater than 189 mg/dL Very high LAB VLDL VLDL CHOLESTEROL 16 mg/dL LAB CHLHDL Chol/HDL Ratio 2.1 <5.0 Result Comment: PERFORMED BY : [place] [address] PATHOLOGIST ADMINISTRATIVE SERVICES SPECIALIST NEEL SHELTON M.D. Performed By: #### CMP, LIPI D #### [address] BASIC METABOLIC PANEL Collected: 2024 4:42 AM Status: F Source: [facility] TYPE CODE TESTS RESULT OUT OF RANGE REFERENCE UNITS LAB GLU Glucose 69 Low 70-100 mg/dL Result Comment: Random Gluco se Reference Range is dependent on time and content of last meal. Glucose of more than 200 mg/dL in a nonstressed, ambulatory subject supports the diagnosis of Diabetes Mellitus. ADA recommended reference range LAB BUN Blood Urea Nitrogen 3 Low 7-25 mg/dL LAB CREATT Creatinine 0.53 Low 0.60-1.20 mg/dL LAB GFReNR Estimated GFR >60.0 mL/Min LAB NA Sodium 141 Decreased 136-145 mmol/L LAB K Potassium 3.5 Normal 3.5-5.1 mmol/L LAB CL Chloride 107 Normal 98-107 mmol/L LAB CO2 Carbon Dioxide 25.1 Normal 21.0-31.0 mmol/L LAB GAP Anion Gap 12.4 Normal 6.0-15.0 meq/L LAB CA Calcium 8.1 Low 8.6-10.3 mg/dL LAB CRCLPHA Creatinine Clr Calc Pharmacy 129.19 Performed By: #### MG, BMP, CBC #### [facility] [address] [place] [id number] [facility] MAGNESIUM Collected: 4:42 AM Status: F Source: [facility] TYPE CODE TESTS RESULT OUT OF RANGE REFERENCE UNITS LAB MG Magnesium 1.8 Low 1.9-2.7 mg/dL Result Comment: PERFORMED BY : [place] [address] PATHOLOGIST ADMINISTRATIVE SERVICES SPECIALIST NEEL SHELTON M.D. Performed By: #### MG, BMP, CBC #### [facility] [address] [place] [id number] [facility] COMPLETE BLOOD COUNT AUTO DIFF Collected: 05/20/2024 4:42 AM Status: F Source: F [facility] TYPE CODE TESTS RESULT OUT OF RANGE REFERENCE UNITS LAB WBC White Blood Count 6.8 Normal 3.8-11.6 10*3/uL LAB UNWBC Uncorrected WBC 6.8 Normal 3.8-11.6 10*3/uL LAB RBC Red Blood Count 4.29 Normal 3.60-5.00 10*6/u L LAB HGB Hemoglobin 13.3 Normal 11.8-15.4 g/dL LAB HCT Hematocrit 39.1 Normal 34.0-46.4 % LAB MCV Mean Corpuscular Volume 91.2 Normal 80-100 fL LAB MCH Mean Corpuscular Hemoglobin 31.0 Normal 24.7-34.3 pg LAB MCHC Mean Corpuscular HGB Conc 34.0 Normal 32.0-35.0 g/dL LAB RDW Red Cell Distribution Width 14.7 Normal 11.9-15.3 % LAB PLT Platelet Count 121 Decreased 150-450 10*3/uL LAB MPV Mean Platelet Volume 8.0 Normal 6.3-10.7 fL LAB NE% Neutrophils % (Auto) 61.8 . % LAB LY% Lymphocytes % (Auto) 29.7 . % LAB MO% Monocytes % (Auto) 7.2 . % LAB EO% Eosinophils % (Auto) 0.4 . % LAB BA% Basophils % (Auto) 0.9 . % LAB NRBC% NRBC% 0.0 Normal 0-0.5 /100{WBC } LAB NE# Neutrophils # (Auto) 4.2 Normal 1.8-7.7 10*3/uL LAB LY# Lymphocytes # (Auto) 2.0 Normal 1.00-4.8 10*3/uL LAB MO# Monocytes # (Auto) 0.5 Normal 0.0-0.8 10*3/uL LAB EO# Eosinophils # (Auto) 0.0 Normal 0.0-0.45 10*3/uL LAB BA# Basophils # (Auto) 0.1 Normal 0.0-0.2 10*3/uL Result Comment: PERFORMED BY : [place] [address] PATHOLOGIST ADMINISTRATIVE SERVICES SPECIALIST NEEL SHELTON M.D. Performed By: #### MG, BMP, CBC #### [facility] [address] [place] [address] [place] DIPSTICK AND MICROSCOPIC Collected: 01/2025 6:51 PM Status: F Source: [facility] Order Comment: Name Collecti on Type:: Voided TYPE CODE TESTS RESULT OUT OF RANGE REFERENCE UNITS LAB UCOL Color,Urine Light-Yellow Yellow LAB UAPP Appearance,Ur ine Cloudy Abnormal Alert Clear LAB USG Specificy Orosi,Urine 1.003 Normal 1.001-1.030 LAB UPH pH,Urine 5.5 Normal 5.0-9.0 LAB ULE Leukocyte Esterase,Urin e 4+ High Negative LAB UNIT Nitrite,Urine Negative Negative LAB UPRO Protein,Urine 20 High Negative mg/dL LAB UGL Glucose,Urine (UA) Normal Normal LAB UKET Ketones,Urine Negative Negative LAB UURO Urobilinogen, Urine Normal Normal LAB UBIL Bilirubin,Uri ne Negative Negative LAB UBLD Occult Blood,Urine Trace High Negative LAB URBC RBC,Urine 1-2 0-4 [HPF] LAB UWBC WBC,Urine 50-100 High 0-4 [HPF] LAB UCLUMPWBC WBC CLUMP, Urine Moderate High None Seen LAB UBACT Bacteria,Urin e 2+ High None Seen LAB UHYALC Hyaline Casts,Urine None 0-8 Performed By: #### UHCG, URD S, ADDONUAPLUS, CUU #### [place] [id number] [facility] HCG,URINE Collected: 05/19/2024 6:51 PM Status: F Source: [facility] Order Comment: Name Collecti on Type:: Voided TYPE CODE TESTS RESULT OUT OF RANGE REFERENCE UNITS LAB UHCGQ HCG Qualitative,U rine Negative Result Comment: PERFORMED BY : [place] [address] PATHOLOGIST ADMINISTRATIVE SERVICES SPECIALIST NEEL SHELTON M.D. Performed By: #### JHONCG, URD S, ADDONUAPLUS, CUU #### [place] [id number] [facility] DRUG SCREEN,URINE Collected: 05/19/2024 6:51 PM Stat us: F Source: [facility] TYPE CODE TESTS RESULT OUT OF RANGE REFERENCE UNITS LAB URAMPS Amphetamine Screen,Urine Negative Negative LAB URBARBS Barbiturate Screen,Urine Negative Negative LAB URBENZS Benzodiazepines Screen,Urine Negative Negative LAB URCOCS Cocaine Screen,Urine Negative Negative LAB UROPIS Opiate Screen,Urine Negative Negative LAB URPCPS Phencyclidine Screen,Urine Negative Negative LAB URTHCS Cannabinoid Screen,Urine Positive High Negative Result Comment: These are un confirmed results and should not be used for legal purposes. Drug Cut-Off Concentration: AMPH 1000 ng/mL DALLAS 200 ng/mL DAVID 200 ng/mL COCM 300 ng/mL OP 300 ng/mL PCP 25 ng/mL THC 20 ng/mL PERFORMED BY: [place] [address] PATHOLOGIST ADMINISTRATIVE SERVICES SPECIALIST NEEL SHELTON M.D. Performed By: #### UHCG, URD S, ADDONUAPLUS, CUU #### [address] [address] [facility] URINE CULTURE Observed: 05/19/2024 6:51 PM Status: F Source: [facility] MDRO results called at 0835 on 05/22/24 ORGANISM: Escherichia coli (MDRO) (O:ESCCOLMDRO) [place] Count >100,000 Aerobic CHARLINE Charge (NMIC56) SUSCEPTIBILITY ORGANISM: O:ESCCOLMDRO ANTIBIOTIC INTERPRETATION CHARLINE Amikacin S <16 Amoxacillin/K Clavulanate S <8 Ampicillin R >16 Ampicillin/Sulbactam I 1616/8 Aztreonam S <4 Cefazolin S <2 Cefepime S <2 Ceftazidime S <1 Ceftazidime/Avibactam S <4 Ceftolozane/Tazobactam S <2 Ceftriaxone S <1 Cefuroxime S <4 Ciprofloxacin S <0.25 Ertapenem S <0.5 Gentamicin R >8 Levofloxacin S <0.5 Meropenem S <1 Meropenem/Vaborbactam S <2 Nitrofurantoin S <32 Piperacillin/Tazobactam S <8 Tetracycline R >8 Tigecycline S <2 Tobramycin S 4 Trimethoprim/Sulfamethoxazole R >2 S = SUSCEPTIBLE I = INTERMEDIATE R = RESISTANT BLANK = DATA NOT AVAILABLE, OR DRUG NOT ADVISABLE OR TESTED R* = RESISTANCE DUE TO EXTENDED SPECTRUM BETA-LACTAMASES ESBL = EXTENDED SPECTRUM BETA-LACTAMASE TFG = THYMIDINE-DEPENDENT STRAIN AL = BETA-LACTAMASE POSITIVE IB = INDUCIBLE BETA-LACTAMASE. APPEARS IN PLACE OF 'S' WITH SPECIES KNOWN TO POSSESS INDUCIBLE BETA-LACTAMASES. POTENTIALLY THEY MAY BECOME RESISTANT TO ALL B-LACTAM DRUGS. PERFORMED BY: [place] [address] PATHOLOGIST ADMINISTRATIVE SERVICES SPECIALIST NEEL SHELTON M.D. Performed By: #### UHGEOFFREY SUAREZ ADDONUAPLUS, CUU #### [address] MAGNESIUM Collected: 5 5:44 PM Status: F Source: [facility] TYPE CODE TESTS RESULT OUT OF RANGE REFERENCE UNITS LAB MG Magnesium 1.7 Low 1.9-2.7 mg/dL Result Comment: PERFORMED BY : [facility] [address] [place] [address] PATHOLOGIST ADMINISTRATIVE SERVICES SPECIALIST NEEL SHELTON M.D. Performed By: #### MG #### [facility] [address] [place] [id number] [facility] COMPLETE BLOOD COUNT AUTO DIFF Collected: 05/19/2024 5:44 PM Status: F Source: F [facility] TYPE CODE TESTS RESULT OUT OF RANGE REFERENCE UNITS LAB WBC White Blood Count 9.3 Normal 3.8-11.6 10*3/uL LAB UNWBC Uncorrected WBC 9.3 Normal 3.8-11.6 10*3/uL LAB RBC Red Blood Count 4.95 Normal 3.60-5.00 10*6/u L LAB HGB Hemoglobin 15.5 High 11.8-15.4 g/dL LAB HCT Hematocrit 44.8 Normal 34.0-46.4 % LAB MCV Mean Corpuscular Volume 90.6 Normal 80-100 fL LAB MCH Mean Corpuscular Hemoglobin 31.3 Normal 24.7-34.3 pg LAB MCHC Mean Corpuscular HGB Conc 34.5 Normal 32.0-35.0 g/dL LAB RDW Red Cell Distribution Width 14.7 Normal 11.9-15.3 % LAB PLT Platelet Count 188 Normal 150-450 10*3/uL LAB MPV Mean Platelet Volume 7.8 Normal 6.3-10.7 fL LAB MDW Monocyte Distribution Width 18.51 Normal 0.00-20.00 % LAB NE% Neutrophils % (Auto) 66.0 . % LAB LY% Lymphocytes % (Auto) 29.1 . % LAB MO% Monocytes % (Auto) 3.6 . % LAB EO% Eosinophils % (Auto) 0.0 . % LAB BA% Basophils % (Auto) 1.3 . % LAB NRBC% NRBC% 0.0 Normal 0-0.5 /100{WBC } LAB NE# Neutrophils # (Auto) 6.1 Normal 1.8-7.7 10*3/uL LAB LY# Lymphocytes # (Auto) 2.7 Normal 1.00-4.8 10*3/uL LAB MO# Monocytes # (Auto) 0.3 Normal 0.0-0.8 10*3/uL LAB EO# Eosinophils # (Auto) 0.0 Normal 0.0-0.45 10*3/uL LAB BA# Basophils # (Auto) 0.1 Normal 0.0-0.2 10*3/uL Result Comment: PERFORMED BY : [place] [address] PATHOLOGIST ADMINISTRATIVE SERVICES SPECIALIST NEEL SHELTON M.D. Performed By: #### ETOH, CBC , CMP #### [address] ETHYL ALCOHOL PROFILE Collected: 05/19/2024 5:44 PM Status: F Source: [facility] TYPE CODE TESTS RESULT OUT OF RANGE REFERENCE UNITS LAB ETHYALC Ethanol 467 mg/dL LAB ETHYLALC% Percent Ethanol 0.467 % Result Comment: PERFORMED BY : [place] [address] PATHOLOGIST ADMINISTRATIVE SERVICES SPECIALIST NEEL SHELTON M.D. Performed By: #### ETOH, CBC , CMP #### [address] COMPREHENSIVE METABOLIC PANEL Collected: 05/19/2024 5 :44 PM Status: F Source: [facility] TYPE CODE TESTS RESULT OUT OF RANGE REFERENCE UNITS LAB GLU Glucose 91 Normal 70-100 mg/dL Result Comment: Random Gluco se Reference Range is dependent on time and content of last meal. Glucose of more than 200 mg/dL in a nonstressed, ambulatory subject supports the diagnosis of Diabetes Mellitus. ADA recommended reference range LAB BUN Blood Urea Nitrogen 3 Low 7-25 mg/d L LAB CREATT Creatinine 0.50 Low 0.60-1.20 mg/dL LAB GFReNR Estimated GFR >60.0 mL/Min LAB NA Sodium 134 Low 136-145 mmol/L LAB K Potassium 3.5 Normal 3.5-5.1 mmol/L LAB CL Chloride 95 Low 98-107 mmol/L LAB CO2 Carbon Dioxide 20.0 Low 21.0-31.0 mmol/L LAB GAP Anion Gap 22.5 High 6.0-15.0 meq/L LAB CA Calcium 9.1 Normal 8.6-10.3 mg/dL LAB TP Total Protein 8.0 Normal 6.4-8.9 g/dL LAB ALB Albumin Level 4.7 Normal 3.5-5.7 g/dL LAB GLOB Globulin 3.3 g/dL LAB AGRATIO Albumin/Globulin Ratio 1.4 LAB BILIT Bilirubin,Total 0.9 Normal 0.3-1.0 mg/dL LAB AST Aspartate Amino Transferase 89 High 13-39 U/L LAB ALT Alanine Aminotransferase 61 High 7-52 U/L LAB ALP Alkaline Phosphatase 110 High 34-104 U/L LAB CRCLPHA Creatinine Clr C alc Pharmacy 133.87 Result Comment: PERFORMED BY : [place] [address] PATHOLOGIST ADMINISTRATIVE SERVICES SPECIALIST NEEL SHELTON M.D. Performed By: #### ETOH, CBC , CMP #### [facility] [address] [place] [address] ECG 12 LEAD ECG Observed: 05/19/2024 5:26 PM Status: COMPLETED Source: [facility] [place] [address] Electrocardiograph Report Signed Patient: Shikha Loera MR#: [id number] : 1985 Acct:[id number] Age/Sex: 39 / F ADM Date: 05/19/24 Loc: Room: [address] [place] [address] Type: ADM IN Attending Dr: Diego Gregg DO Ordering Provider: Tai Chen PA-C Date of Service: 05/19/2401/31/1653 ECG/ECG 12 lead ECG: Alcohol Copies to: Test Reason : Blood Pressure : 191/104 mmHG Vent. Rate : 106 BPM Atrial Rate : 106 BPM P-R Int : 142 ms QRS Dur : 70 ms QT Int : 382 ms P-R-T Axes : 49 45 64 degrees QTcB Int : 507 ms Sinus tachycardia Otherwise normal ECG When compared with ECG of 16-Jan-2024 07:19, No significant change was found Confirmed by NINFA MCGUIRE MD ([id number]) on 05/20/2024 12:38:16 AM Referred By: Electronically Signed By: NINFA MCGUIRE MD Transcribed By: MUS Signed By Ninfa Mcguire MD 05/20/24 0038 GLUCOSE POCT GLUCOMETERS Collected: 01/20/2024 8:54 P M Status: F Source: [facility] TYPE CODE TESTS RESULT OUT OF RANGE REFERENCE UNITS LAB GLUPOC Glucose Poc Glucometers 161 mg/dL Result Comment: Random Gluco se Reference Range is dependent on time and content of last meal. Glucose of more than 200 mg/dL in a nonstressed, ambulatory subject supports the diagnosis of Diabetes Mellitus. PERFORMED BY: [facility] [address] [place] [address] PATHOLOGIST ADMINISTRATIVE SERVICES SPECIALIST OSMEL BLUE M.D. Performed By: #### GLULS ### # Point of Care testing , BASIC METABOLIC PANEL Collected: 01/20/2024 6:42 AM Status: F Source: [facility] Order Comment: DRAWN BY [facility] TYPE CODE TESTS RESULT OUT OF RANGE REFERENCE UNITS LAB GLU Glucose 98 Normal 70-100 mg/dL Result Comment: Random Gluco se Reference Range is dependent on time and content of last meal. Glucose of more than 200 mg/dL in a nonstressed, ambulatory subject supports the diagnosis of Diabetes Mellitus. ADA recommended reference range LAB BUN Blood Urea Nitrogen 11 Normal 7-25 mg/dL LAB CREATT Creatinine 0.77 Normal 0.60-1.20 mg/dL LAB GFReNR Estimated GFR > 60.0 LAB NA Sodium 139 Normal 136-145 mmol/L LAB K Potassium 3.9 Normal 3.5-5.1 mmol/L LAB CL Chloride 107 Normal 98-107 mmol/L LAB CO2 Carbon Dioxide 22.5 Normal 21.0-31.0 mmol/L LAB GAP Anion Gap 13.4 Normal 6.0-15.0 LAB CA Calcium 9.3 Normal 8.6-10.3 mg/dL LAB CRCLPHA Creatinine Clr Calc Pharmacy 94.82 Performed By: #### BMP, MG # ### [facility] [address] [place] [address] [facility] MAGNESIUM Collected: 6:42 AM Status: F Source: [facility] Order Comment: DRAWN BY MK TYPE CODE TESTS RESULT OUT OF RANGE REFERENCE UNITS LAB MG Magnesium 1.6 Low 1.9-2.7 mg/dL Result Comment: PERFORMED BY : [facility] [address] [place] [address] PATHOLOGIST ADMINISTRATIVE SERVICES SPECIALIST OSMEL BLUE M.D. Performed By: #### BMP, MG # ### [facility] [address] [place] [id number] [facility] A1C WITH ESTIMATED AVERAGE GLU Collected: 01/19/2024 6:03 PM Status: F Source: [facility] Order Comment: Comment ok to use previously drawn lab TYPE CODE TESTS RESULT OUT OF RANGE REFERENCE UNITS LAB .A1C Hemoglobin A1C 5.3 Normal 4.3-5.6 % Result Comment: Increased ri sk for diabetes: 5.7 - 6.4 diabetes: >6.4 glycemic control for adults with diabetes: <7.0 LAB eAG Estimated Average Glucose 105 mg/dL Result Comment: PERFORMED BY : [place] [address] PATHOLOGIST ADMINISTRATIVE SERVICES SPECIALIST OSMEL BLUE M.D. Performed By: #### A1C WTH e A #### [facility] [address] [place] [id number] [facility] COMPREHENSIVE METABOLIC PANEL Collected: 01/19/2024 5 :29 AM Status: F Source: [facility] TYPE CODE TESTS RESULT OUT OF RANGE REFERENCE UNITS LAB GLU Glucose 85 Normal 70-100 mg/dL Result Comment: Random Gluco se Reference Range is dependent on time and content of last meal. Glucose of more than 200 mg/dL in a nonstressed, ambulatory subject supports the diagnosis of Diabetes Mellitus. ADA recommended reference range LAB BUN Blood Urea Nitrogen 7 Normal 7-25 mg/d L LAB CREATT Creatinine 0.63 Normal 0.60-1.20 mg/dL LAB GFReNR Estimated GFR > 60.0 LAB NA Sodium 141 Normal 136-145 mmol/L LAB K Potassium 3.2 Low 3.5-5.1 mmol/L LAB CL Chloride 108 High 98-107 mmol/L LAB CO2 Carbon Dioxide 22.1 Normal 21.0-31.0 mmol/L LAB GAP Anion Gap 14.1 Normal 6.0-15.0 LAB CA Calcium 9.3 Normal 8.6-10.3 mg/dL LAB TP Total Protein 6.7 Normal 6.4-8.9 g/dL LAB ALB Albumin Level 3.9 Normal 3.5-5.7 g/dL LAB GLOB Globulin 2.8 g/dL LAB AGRATIO Albumin/Globulin Ratio 1.4 LAB BILIT Bilirubin,Total 0.7 Normal 0.3-1.0 mg/dL LAB AST Aspartate Amino Transferase 110 High 13-39 U/L LAB ALT Alanine Aminotransferase 76 High 7-52 U/L LAB ALP Alkaline Phosphatase 80 Normal 34-104 U/L LAB CRCLPHA Creatinine Clr C alc Pharmacy 115.90 Performed By: #### CMP, VITB 12FOL, LIPASE, PHOS #### [address] #### VITB1 #### [facility] , PHOSPHORUS Collected: 5:29 AM Status: F Source: [facility] TYPE CODE TESTS RESULT OUT OF RANGE REFERENCE UNITS LAB PHOS Phosphorus 6.4 High 2.5-4.5 mg/dL Performed By: #### CMP, VITB 12FOL, LIPASE, PHOS #### [address] #### VITB1 #### [facility] , LIPASE Collected: 5:29 AM Status: F Source: [facility] TYPE CODE TESTS RESULT OUT OF RANGE REFERENCE UNITS LAB LIPASE Lipase < 3.0 Low 11.0-82.0 Performed By: #### CMP, VITB 12FOL, LIPASE, PHOS #### [address] #### VITB1 #### [facility] , VIT. B12/FOLATE PROFILE Collected: 01/07 5:29 AM Status: F Source: [facility] TYPE CODE TESTS RESULT OUT OF RANGE REFERENCE UNITS LAB B12 Vitamin B12 392 Normal 180-914 pg/mL LAB FOL Folate 36.0 >5.9 ng/mL Result Comment: Folate refer ence range: >5.9 ng/ml The WHO technical consultation on folate and vitamin b12 deficiencies has determined that folate concentrations less than 4 ng/ml are considered deficient. PERFORMED BY: [place] [address] PATHOLOGIST ADMINISTRATIVE SERVICES SPECIALIST OSMEL BLUE M.D. Performed By: #### CMP, VITB 12FOL, LIPASE, PHOS #### [facility] [address] [place], [place] [address] [place] #### VITB1 #### [facility] , VITAMIN B1 (THIAMINE) BLOOD Collected: 01/19/2024 5:29 AM Status: F Source: [facility] TYPE CODE TESTS RESULT OUT OF RANGE REFERENCE UNITS LAB VITB1 Vitamin B1 (Thiamine) Blood 207.3 High 66.5-200.0 Result Comment: This test wa s developed and its performance characteristics determined by [facility]. It has not been cleared or approved by the Food and Drug Administration. Performed at: [address] [id number] Digital [employer] Specialist: Charlie Manriquez MD, Phone: [phone] PERFORMED BY: [place] [address] PATHOLOGIST ADMINISTRATIVE SERVICES SPECIALIST OSMEL BLUE M.D. Performed By: #### CMP, VITB 12FOL, LIPASE, PHOS #### [address] #### VITB1 #### [facility] , COMPREHENSIVE METABOLIC PANEL Collected: 01/18/2024 5 :27 AM Status: F Source: [facility] TYPE CODE TESTS RESULT OUT OF RANGE REFERENCE UNITS LAB GLU Glucose 135 High 70-100 mg/dL Result Comment: Random Gluco se Reference Range is dependent on time and content of last meal. Glucose of more than 200 mg/dL in a nonstressed, ambulatory subject supports the diagnosis of Diabetes Mellitus. ADA recommended reference range LAB BUN Blood Urea Nitrogen 5 Low 7-25 mg/d L LAB CREATT Creatinine 0.66 Normal 0.60-1.20 mg/dL LAB GFReNR Estimated GFR > 60.0 LAB NA Sodium 140 Normal 136-145 mmol/L LAB K Potassium 3.4 Low 3.5-5.1 mmol/L LAB CL Chloride 105 Normal 98-107 mmol/L LAB CO2 Carbon Dioxide 23.9 Normal 21.0-31.0 mmol/L LAB GAP Anion Gap 14.5 Normal 6.0-15.0 LAB CA Calcium 10.2 Normal 8.6-10.3 mg/dL LAB TP Total Protein 7.6 Normal 6.4-8.9 g/dL LAB ALB Albumin Level 4.5 Normal 3.5-5.7 g/dL LAB GLOB Globulin 3.1 g/dL LAB AGRATIO Albumin/Globulin Ratio 1.5 LAB BILIT Bilirubin,Total 0.7 Normal 0.3-1.0 mg/dL LAB AST Aspartate Amino Transferase 103 High 13-39 U/L LAB ALT Alanine Aminotransferase 66 High 7-52 U/L LAB ALP Alkaline Phosphatase 97 Normal 34-104 U/L LAB CRCLPHA Creatinine Clr C alc Pharmacy 110.63 Result Comment: PERFORMED BY : [place] [address] PATHOLOGIST ADMINISTRATIVE SERVICES SPECIALIST OSMEL BLUE M.D. Performed By: #### CMP, MG # ### [facility] [address] [place], [place] [id number] [facility] MAGNESIUM Collected: 5:27 AM Status: F Source: [facility] TYPE CODE TESTS RESULT OUT OF RANGE REFERENCE UNITS LAB MG Magnesium 1.4 Low 1.9-2.7 mg/dL Result Comment: PERFORMED BY : [place] [address] PATHOLOGIST ADMINISTRATIVE SERVICES SPECIALIST OSMEL BLUE M.D. Performed By: #### CMP, MG # ### [facility] [address] [place], [place] [address] [facility] ECG 12 LEAD ECG Observed: 01/16/2024 7:19 AM Status: COMPLETED Source: [facility] Main [place] [address] [place], [place] [id number] Electrocardiograph Report Signed Patient: Shikha Loera MR#: [id number] : 1985 Acct:[id number] Age/Sex: 38 / F ADM Date: 01/15/24 Loc: Room: 1H3516-8 Type: ADM IN Attending Dr: Jack Kwon [...] rhythm Normal ECG Confirmed by Almaz Armando ([id number]) on 01/16/2024 4:49:39 PM Referred By: Electronically Signed By: Almaz Armando Transcribed By: MUS Signed By Almaz Armando MD 4 1649 LIPID PANEL Collected: 01/16/2024 5:40 AM Status: F Source: [facility] TYPE CODE TESTS RESULT OUT OF RANGE REFERENCE UNITS LAB CHOL Cholesterol 270 High 140-200 mg/dL Result Comment: Chol less th an 200 mg/dl low risk Chol 201-239 mg/dl borderline risk Chol 240 mg/dl and greater high risk LAB HDL HDL Cholesterol 107 High 23-92 mg/dL Result Comment: HDL CHOL ATP -III CLASSIFICATION Cardiovascular Risk HDL > or equal to 60 mg/dL LOW HDL < 40 mg/dL HIGH LAB TRIG W REF Triglyceride w/Reflex 143 Normal 0-149 mg/dL Result Comment: TRIG ATP III CLASSIFICATION TRIG less than 150 mg/dL Normal TRIG 150-199 mg/dL Borderline high TRIG 200-500 mg/dL High TRIG greater than 500 mg/dL Very high Standard traceable to the Center for Disease Conrtrol and Prevention (CDC) test method. LAB LDLC LDL Cholesterol,Calc ulated 134 High 0-100 mg/dL Result Comment: LDL ATP III CLASSIFICATION LDL less than 100 mg/dL Optimal LDL 100-129 mg/dL Near or above optimal LDL 130-159 mg/dL Borderline high LDL 160-189 mg/dL High LDL greater than 189 mg/dL Very high LAB VLDL VLDL CHOLESTEROL 28 mg/dL LAB CHLHDL Chol/HDL Ratio 2.5 <5.0 Performed By: #### MG, LIPID , TSH3 wRFLX, [id number] #### [address] THYROID STIM HORMONE W/RFLX Collected: 01/16/2024 5:40 AM Status: F Source: [facility] TYPE CODE TESTS RESULT OUT OF RANGE REFERENCE UNITS LAB TSH3 wRFLX Thyroid Stim Hormone w/Rflx 3.66 Normal 0.45-5.33 u[iU]/mL Performed By: #### MG, LIPID , TSH3 wRFLX, [id number] #### [facility] [address] [place] [address] VITAMIN D 25 HYDROXY TOTAL Collected: 01/16/2024 5:40 AM Status: F Source: [facility] TYPE CODE TESTS RESULT OUT OF RANGE REFERENCE UNITS LAB [id number] Vitamin D 25 Hydroxy Total 12.7 Low 30-100 ng/mL Result Comment: VITAMIN D ST ATUS 25(OH)VITAMIN D RANGE (ng/mL) Deficient <20 Insufficient 20 to <30 Sufficient 30 to 100 Reference: Davey MF,Merlin NC, Morales FOX, et al. Evaluation,treatment, and prevention of vitamin D deficiency; an Endocrine Society clinical practice guideline. JCEM. 2010; 96(7):1911-30. PERFORMED BY: [place] [address] PATHOLOGIST ADMINISTRATIVE SERVICES SPECIALIST OSMEL BLUE M.D. Performed By: #### MG, LIPID , TSH3 wRFLX, [id number] #### [facility] [address] [place], [place] [address] [facility] MAGNESIUM Collected: 5:40 AM Status: F Source: [facility] TYPE CODE TESTS RESULT OUT OF RANGE REFERENCE UNITS LAB MG Magnesium 1.6 Low 1.9-2.7 mg/dL Performed By: #### MG, LIPID , TSH3 wRFLX, [id number] #### [address] LIPID PANEL Collected: 01/16/2024 5:40 AM Status: F Source: [facility] TYPE CODE TESTS RESULT OUT OF RANGE REFERENCE UNITS LAB CHOL Cholesterol 270 High 140-200 mg/dL Result Comment: Chol less th an 200 mg/dl low risk Chol 201-239 mg/dl borderline risk Chol 240 mg/dl and greater high risk LAB HDL HDL Cholesterol 107 High 23-92 mg/dL Result Comment: HDL CHOL ATP -III CLASSIFICATION Cardiovascular Risk HDL > or equal to 60 mg/dL LOW HDL < 40 mg/dL HIGH LAB TRIG W REF Triglyceride w/Reflex 143 Normal 0-149 mg/dL Result Comment: TRIG ATP III CLASSIFICATION TRIG less than 150 mg/dL Normal TRIG 150-199 mg/dL Borderline high TRIG 200-500 mg/dL High TRIG greater than 500 mg/dL Very high Standard traceable to the Center for Disease Conrtrol and Prevention (CDC) test method. LAB LDLC LDL Cholesterol,Calc ulated 134 High 0-100 mg/dL Result Comment: LDL ATP III CLASSIFICATION LDL less than 100 mg/dL Optimal LDL 100-129 mg/dL Near or above optimal LDL 130-159 mg/dL Borderline high LDL 160-189 mg/dL High LDL greater than 189 mg/dL Very high LAB VLDL VLDL CHOLESTEROL 28 mg/dL LAB CHLHDL Chol/HDL Ratio 2.5 <5.0 Performed By: #### MG, LIPID , TSH3 wRFLX, [id number] #### [facility] [address] [place] [address] THYROID STIM HORMONE W/RFLX Collected: 01/16/2024 5:40 AM Status: F Source: [facility] TYPE CODE TESTS RESULT OUT OF RANGE REFERENCE UNITS LAB TSH3 wRFLX Thyroid Stim Hormone w/Rflx 3.66 Normal 0.45-5.33 u[iU]/mL Performed By: #### MG, LIPID , TSH3 wRFLX, [id number] #### [facility] [address] [place] [address] VITAMIN D 25 HYDROXY TOTAL Collected: 01/16/2024 5:40 AM Status: F Source: [facility] TYPE CODE TESTS RESULT OUT OF RANGE REFERENCE UNITS LAB [id number] Vitamin D 25 Hydroxy Total 12.7 Low 30-100 ng/mL Result Comment: VITAMIN D ST ATUS 25(OH)VITAMIN D RANGE (ng/mL) Deficient <20 Insufficient 20 to <30 Sufficient 30 to 100 Reference: Davey MF,Merlin NC, Samuel-Misael FOX, et al. Evaluation,treatment, and prevention of vitamin D deficiency; an Endocrine Society clinical practice guideline. JCEM. 2010; 96(7):1911-30. PERFORMED BY: [place] [address] PATHOLOGIST ADMINISTRATIVE SERVICES SPECIALIST OSMEL BLUE M.D. Performed By: #### MG, LIPID , TSH3 wRFLX, [id number] #### [facility] [address] [place] [id number] [facility] ETHYL ALCOHOL PROFILE Collected: 01/14/2024 7:10 PM Status: F Source: [facility] TYPE CODE TESTS RESULT OUT OF RANGE REFERENCE UNITS LAB ETHYALC Ethanol 456 mg/dL LAB ETHYLALC% Percent Ethanol 0.456 % Result Comment: PERFORMED BY : [address] [place] [address] PATHOLOGIST ADMINISTRATIVE SERVICES SPECIALIST OSMEL BLUE M.D. Performed By: #### CBC, ETOH , CMP #### [facility] [address] [place] [id number] [facility] COMPREHENSIVE METABOLIC PANEL Collected: 01/14/2024 7 :10 PM Status: F Source: [facility] TYPE CODE TESTS RESULT OUT OF RANGE REFERENCE UNITS LAB GLU Glucose 107 High 70-100 mg/dL Result Comment: Random Gluco se Reference Range is dependent on time and content of last meal. Glucose of more than 200 mg/dL in a nonstressed, ambulatory subject supports the diagnosis of Diabetes Mellitus. ADA recommended reference range LAB BUN Blood Urea Nitrogen 3 Low 7-25 mg/d L LAB CREATT Creatinine 0.58 Low 0.60-1.20 mg/dL LAB GFReNR Estimated GFR > 60.0 LAB NA Sodium 143 Normal 136-145 mmol/L LAB K Potassium 3.6 Normal 3.5-5.1 mmol/L LAB CL Chloride 102 Normal 98-107 mmol/L LAB CO2 Carbon Dioxide 23.5 Normal 21.0-31.0 mmol/L LAB GAP Anion Gap 21.1 High 6.0-15.0 LAB CA Calcium 9.2 Normal 8.6-10.3 mg/dL LAB TP Total Protein 8.2 Normal 6.4-8.9 g/dL LAB ALB Albumin Level 4.6 Normal 3.5-5.7 g/dL LAB GLOB Globulin 3.6 g/dL LAB AGRATIO Albumin/Globulin Ratio 1.3 LAB BILIT Bilirubin,Total 0.6 Normal 0.3-1.0 mg/dL LAB AST Aspartate Amino Transferase 127 High 13-39 U/L LAB ALT Alanine Aminotransferase 80 High 7-52 U/L LAB ALP Alkaline Phosphatase 115 High 34-104 U/L Result Comment: PERFORMED BY : [address] [place] [address] PATHOLOGIST ADMINISTRATIVE SERVICES SPECIALIST SOMEL BLUE M.D. Performed By: #### CBC, ETOH , CMP #### [facility] [address] [place] [id number] [facility] COMPLETE BLOOD COUNT AUTO DIFF Collected: 01/14/2024 7:10 PM Status: F Source: [facility] TYPE CODE TESTS RESULT OUT OF RANGE REFERENCE UNITS LAB WBC White Blood Count 4.8 Normal 3.8-11.6 10*3/uL LAB UNWBC Uncorrected WBC 4.8 Normal 3.8-11.6 10*3/uL LAB RBC Red Blood Count 4.73 Normal 3.60-5.00 LAB HGB Hemoglobin 15.1 Normal 11.8-15.4 g/dL LAB HCT Hematocrit 43.3 Normal 34.0-46.4 % LAB MCV Mean Corpuscular Volume 91.4 Normal 80-100 fL LAB MCH Mean Corpuscular Hemoglobin 32.0 Normal 24.7-34.3 pg LAB MCHC Mean Corpuscular HGB Conc 35.0 Normal 32.0-35.0 g/dL LAB RDW Red Cell Distribution Width 13.5 Normal 11.9-15.3 % LAB PLT Platelet Count 192 Normal 150-450 10*3/uL LAB MPV Mean Platelet Volume 7.5 Normal 6.3-10.7 fL LAB MDW Monocyte Distribution Width 17.74 Normal 0.00-20.00 % Result Comment: For adults i n ED, MDW > 20.0 may be associated with a higher risk of sepsis during the first 12 hrs of hospital admission LAB NE% Neutrophils % (Auto) 44.5 . % LAB LY% Lymphocytes % (Auto) 49.0 . % LAB MO% Monocytes % (Auto) 3.1 . % LAB EO% Eosinophils % (Auto) 0.3 . % LAB BA% Basophils % (Auto) 3.1 . % LAB NRBC% NRBC% 0.1 Normal 0-0.5 /100{WBC } LAB NE# Neutrophils # (Auto) 2.2 Normal 1.8-7.7 10*3/uL LAB LY# Lymphocytes # (Auto) 2.4 Normal 1.00-4.8 10*3/uL LAB MO# Monocytes # (Auto) 0.2 Normal 0.0-0.8 10*3/uL LAB EO# Eosinophils # (Auto) 0.0 Normal 0.0-0.45 10*3/uL LAB BA# Basophils # (Auto) 0.1 Normal 0.0-0.2 10*3/uL Result Comment: PERFORMED BY : [place] [address] PATHOLOGIST ADMINISTRATIVE SERVICES SPECIALIST OSMEL BLUE M.D. Performed By: #### CBC, ETOH , CMP #### [facility] [address] [place] [address] DIPSTICK AND MICROSCOPIC Collected: 10/2023 7:10 PM Status: F Source: [facility] Order Comment: Name Collecti on Type:: Clean-Voided Midstream TYPE CODE TESTS RESULT OUT OF RANGE REFERENCE UNITS LAB UCOL Color,Urine Light-Yellow Yellow LAB UAPP Appearance,Uri ne Cloudy Abnormal Alert Clear LAB USG Specificy Orosi,Urine 1.005 Normal 1.001-1.030 LAB UPH pH,Urine 5.5 Normal 5.0-9.0 LAB ULE Leukocyte Esterase,Urine Negative Negative LAB UNIT Nitrite,Urine Negative Negative LAB UPRO Protein,Urine 20 High Negative mg/dL LAB UGL Glucose,Urine (UA) Normal Normal LAB UKET Ketones,Urine Negative Negative LAB UURO Urobilinogen,U rine Normal Normal LAB UBIL Bilirubin,Urin e Negative Negative LAB UBLD Occult Blood,Urine Negative Negative LAB URBC RBC,Urine 1-2 0-4 LAB UWBC WBC,Urine 1-2 0-4 LAB USQEPI Squamous Epithelial Cell,Urine 3-4 High 0-2 LAB UBACT Bacteria,Urine 1+ High None Seen LAB UHYALC Hyaline Casts,Urine 0-8 0-8 Performed By: #### UHCG, ADD ONUAPLUS, URDS #### [facility] [address] [place] [address] [place] HCG,URINE Collected: 01/14/2024 7:10 PM Status: F Source: [facility] Order Comment: Name Collecti on Type:: Clean-Voided Midstream TYPE CODE TESTS RESULT OUT OF RANGE REFERENCE UNITS LAB UHCGQ HCG Qualitative,U rine Negative Result Comment: PERFORMED BY : [place] [id number] PATHOLOGIST ADMINISTRATIVE SERVICES SPECIALIST OSMEL BLUE M.D. Performed By: #### UHCG ADD ONUAPLUS, URDS #### [address] [address] [facility] DRUG SCREEN,URINE Collected: 01/14/2024 7:10 PM Stat us: F Source: [facility] TYPE CODE TESTS RESULT OUT OF RANGE REFERENCE UNITS LAB URAMPS Amphetamine Screen,Urine Negative Negative LAB URBARBS Barbiturate Screen,Urine Negative Negative LAB URBENZS Benzodiazepines Screen,Urine Negative Negative LAB URCOCS Cocaine Screen,Urine Negative Negative LAB UROPIS Opiate Screen,Urine Negative Negative LAB URPCPS Phencyclidine Screen,Urine Negative Negative LAB URTHCS Cannabinoid Screen,Urine Negative Negative Result Comment: These are un confirmed results and should not be used for legal purposes. Drug Cut-Off Concentration: AMPH 1000 ng/mL DALLAS 200 ng/mL DAVID 200 ng/mL COCM 300 ng/mL OP 300 ng/mL PCP 25 ng/mL THC 20 ng/mL PERFORMED BY: [address] [address] PATHOLOGIST ADMINISTRATIVE SERVICES SPECIALIST OSMEL BLUE M.D. Performed By: #### UHCG, ADD ONUAPLUS, URDS #### [address] [address] [facility] ECG 12 LEAD ECG Observed: 01/14/2024 6:52 PM Status: COMPLETED Source: [facility] Main [place] [id number] Electrocardiograph Report Signed Patient: Shikha Loera MR#: [id number] : 1985 Acct:[id number] Age/Sex: 38 / F ADM Date: 01/15/24 Loc: Room: [address] [place] [address] Type: ADM IN Attending Dr: Jack Kwon [...] : 450 ms Sinus tachycardia with short NV Otherwise normal ECG When compared with ECG of 14-Feb-2015 09:02, NV interval has decreased Vent. rate has increased by 73 bpm Confirmed by LILIANA MARINA DO ([id number]) on 01/15/2024 4:02:38 PM Referred By: Electronically Signed By: LILIANA MARINA DO Transcribed By: MUS Signed By Liliana Marina DO 01/14 1602 ALLERGIES DATE TYPE / CODE NAME / CODE REACTION SEVERITY SOURCE 07/24/2024 Drug Allergy/4160 69588(SNOMED CT) lisinopril/[id number] [id number](RXNORM) Swelling of Lip/Tongue/Throat Unknown [facility] 06/04/2024 DRUG INGREDI/4195 68179(SNOMED CT) LISINOPRIL [facility]axis [facility] ENCOUNTER[facility]MIT/DISCHARGE ACCOUNT NUMBER ADMITTING ENCOUNTER CLASS LOCATION SOURCE 08/04/2024/08/05/19 [id number] Pravin Correia [facility] 07/24/2024/07/27/19 25 [id number] Gurvinder Sosa [facility] nTRoom: [id number]: 1 [facility] 07/24/2024/07/25/19 25 [id number] Nicole Burns [facility] 07/17/2024/07/20/19 25 [id number] Sajan Knapp Inpatient Encounter [facility] nPRoom: [id number]: 1 [facility] 07/17/2024/07/18/19 25 [id number] Nicole Burns [facility] 06/04/2024/06/04/19 [id number] Emergency Building:PFM _EDRoom: PMH OTFBed: NONE [facility] 05/19/2024/05/23/19 25 [id number] Diego Gregg [facility] nCRoom: [id number]: 1 [facility] 01/15/2024/01/22/20 24 [id number] Jack Kwon [facility] nSRoom: [id number]: 1 [facility] 11/22/2023 [id number] Jack Kwon [facility] ng:BHCREDIBL E [facility] PAYERS ENCOUNTER GUARANTOR PAYER SUBSCRIBER SOURCE 08/04/2024 Shikharoxane Abbotttte[address] [facility] [address]Hwh: () Primary Insurance[facility]: [id number] [place] Date:2024-08-04 Mark TangeDOB: [id number] [place] [address]Wve: () [facility] 08/04/2024 Secondary Insurance:Self PayPolicy Number: Effective Date:2024-08-04 [facility] 07/24/2024 Shikha TravisMmaaexbdy[address] [place] [address]Esf: () Primary Insurance:[facility]/DIANELYSolicy Number: [id number] [id number] Date:2024-07-24 Mark AbbotttteDOB: [id number] [facility] [address]Ndi: () [facility] 07/24/2024 Secondary Insurance:Self PayPolicy Number: Effective Date:2024-07-24 [facility] 07/24/2024 Shikha [id number] [facility] [address]Had: (HP) Primary Insurance:[employer]/BSPolicy Number: [id number] [place] Date:2024-07-24 Mark SiddiqiOB: [id number] [facility] [place] [place] [address]Pzf: (HP) [facility] 07/24/2024 Secondary Insurance:Self PayPolicy Number: Effective Date:2024-07-24 [facility] 07/17/2024 Shikha Angi [id number] [facility] [place] [address]Qrc: (HP) Primary Insurance:[employer] [employer]/BSPolicy Number: [id number] [place] Date:2024-07-17 Mark SiddiqiOB: [id number] [facility] [place] [place] [address]Iiw: (HP) [facility] 07/17/2024 Secondary Insurance:Self PayPolicy Number: Effective Date:2024-07-17 [facility] 07/17/2024 Shikha Angi [id number] [facility] [place] [place] [address]Yra: (HP) Primary Insurance:[employer]/BSPolicy Number: [id number] [place] Date:2024-07-17 Mark SiddiqiOB: [id number] [facility] [place] [address]Rdw: (HP) [facility] 07/17/2024 Secondary Insurance:Self PayPolicy Number: Effective Date:2024-07-17 [facility] 06/04/2024 SHIKHA SIDDIQIOB: [facility] [address]Hxn: (HP) Primary Insurance:BLUE ACCESS (PPO)Policy Number: [id number] [place] Date:2021-04-09 MARK TANGEDOB: [id number] [address] [address] [facility] 05/19/2024 Shikha [id number] [place] [address]Spw: (HP) Primary Insurance:[employer] /BSPolicy Number: [id number] [place] Date:2024-05-19 Mark TangeDOB: [id number] [facility] [place] [address]Xwp: (HP) [facility] 05/19/2024 Secondary Insurance:Self PayPolicy Number: Effective Date:2024-05-19 [facility] 01/15/2024 Shikha [id number] [facility] [address]Bul: (HP) Primary Insurance:[employer] Number: [id number] [place] Date:2024-01-14 Mark TangeDOB: [id number] [facility] [address]Pfo: (HP) [facility] 01/15/2024 Secondary Insurance:Self PayPolicy Number: Effective Date:2024-01-14 [facility]2023 Shikha Whitley [id number] [facility] [place] [address]Azs: (HP) Primary Insurance:Self PayPolicy Number: Effective Date:2023-01-13 [facility]
--- OUTSIDE RECORDS SUMMARY | 2024-08-15 06:30 | XMS_ITS ---
Author Organization [facility] es Address [address] [place] [address] Care Team Providers Care Flat Spring Assembler Name Role Phone Kaylee Oden Primary Care Provider [phone] Patti Metzger Unavailable [phone] Josh Willard Unavailable [phone] REASON FOR VISIT 1 month f/u Encounters Encounter Location Date Provider Diagnosis [facility] [address] [place] [address] 2024 Josh Willard Plan Of Treatment Next Appt Details Provider Name:Josh Willard, 09/22/2024 05:30:00 PM, [address] [place], [address], Progress Notes * JENNIFER SPARKS LDOB:[birth year] (39 yo F)Acc No.[id number]:08/15/2024 Behavioral Health Patient: JENNIFER MACKENZIE Provider: GIL Duggan :1985 A ge:39 Y S ex:Female Date:08/15/2024 Address:[address] [place] [address] [address] [id number] Pcp:Kaylee Oden Subjective: * Chief Complaints: * 1 . 1 month f/u. * Medical History: Objective: * Vitals: Assessment: Plan: * Treatment: * Images: * Electronic signature of GIL Juarez on 08/30/2024 at 04:46 PM EDT Sign off status: Pending * Provider: GIL Duggan Date: 08/15/2024 Generated for Dariela Thompson/Phani on: 08/30/2024 04:46 PM EDT
--- OUTSIDE RECORDS SUMMARY | 2024-08-18 06:15 | XMS_ITS ---
Author Organization [facility] es Address [address] [place] [address] Care Team Providers Care Fundraising Officer Name Role Phone AkshatFranKaylee Primary Care Provider [phone] Patti Metzger Unavailable [phone] Josh Willard Unavailable [phone] Allergies Allergen (clinical drug ingredient) Drug/Non Drug Allergy documented on EMR Reaction Allergy Type Onset Date Status lisinopril Lisinopril anaphylaxis Drug Allergy Act geneva REASON FOR VISIT r/s 08/15, Pt states she is not sleeping well. Not taking Oxcarbazepin, feels it is making her have racing thoughts and quick to temper. KJ Medications Medication SIG (Take, Route, Frequency, Duration) Notes Start Date End Date Status Gabapentin 300 MG 1 tablet Orally 3 times a day for 30 day(s) Active Losartan Potassium 50 MG 1 tablet Orally Once a day for 90 days 06/09/2021 Active OXcarbazepine 600 MG 1 tablet Orally Twice a day for 30 days Not-Taking Levothyroxine Sodium 50 MCG 1 tablet in the morning on an empty stomach Orally Once a day for 90 days Active hydrOXYzine Pamoate 50 MG 1 capsule as needed Orally every 8 hours for 30 days 07/21/2021 Active Melatonin 5 MG 1 tablet in the evening Orally Once a day for 30 days 06/13/2024 Active carBAMazepine 200 MG 1 tablet once a day for 5 days, 1 tablet 2 times a day for 5 days, 3 tablets once a day for 5 days, 2 tablets 2 times a day for 15 days Orally for 30 days 08/18/2024 Active Promethazine HCl 25 MG 1 tablet as needed Orally 07/17/2024 Active Vitamin D3 125 MCG (5000 UT) 1 capsule Orally Once a day Active Multivitamin Active Paliperidone ER 6 MG 1 tablet in the morning Orally Once a day for 30 days Active traZODone HCl 100 MG 1 tablet at bedtime as needed Orally Once a day for 30 days Active Paliperidone ER 9 MG 1 tablet in the morning Orally Once a day for 30 day(s) 01/16/2023 Not-Taking Mirtazapine 15 MG 2 tablets orally at bedtime Not-Taking Topiramate 25 MG TAKE 1 TABLET BY MOUTH THREE TIMES A DAY AT 8AM AND 1 AT 2PM AND 1 AT 8PM DAILY for 90 Not-Taking OneTouch Ultra - check glucose as directed In Vitro four times a day for 30 days Not-Taking Folic Acid 1 MG 1 tablet Orally daily for 30 day(s) Not-Taking metFORMIN HCl 500 MG 1 tablet with a meal Oral twice a day for 30 days Not-Taking carBAMazepine 200 MG 1 tablet Orally Twice a day for 90 days 01/16/2023 Not-Taking amLODIPine Besylate 5 MG 1 tablet Orally Once a day for 90 day(s) Active Prochlorperazine Maleate 5 MG 1 to 2 tablets every 6 to 8 hours as needed for nausea Orally Three times a day for 7 days 07/17/2024 Active Omeprazole 40 MG TAKE 1 CAPSULE BY MOUTH EVERY MORNING BEFORE BREAKFAST for 90 Active QUEtiapine Fumarate 25 MG TAKE 1 TABLET BY MOUTH EVERY DAY AT BEDTIME FOR 30 DAYS for 90 Not-Taking Austedo XR 36 MG 1 tablet Orally Once a day Not-Taking DULoxetine HCl 60 MG 1 capsule Orally Once a day for 30 days Active Atorvastatin Calcium 20 MG 1 tablet Orally Once a day for 30 days Bridge script for 1 month Active Social History Tobacco Use: Social History Observation Description Date Details (start date - stop date) Current Smoker 08/18/2022 - NA Depression Screening (PHQ-9): Question Answer Notes Little interest or pleasure in doing things Jeana ral days Feeling down, depressed, or hopeless Several day s Trouble falling or staying asleep, or sleeping t oo much Several days Feeling tired or having little energy Several da ys Poor appetite or overeating Not at all Feeling bad about yourself-o r that you are a failure or have let yourself or your family down Several days Trouble concentrating on thi ngs, such as reading the newspaper or watching television Not at all Moving or speaking so slowly that other people could have noticed. Or the opposite being so fidgety or restless that you have been moving around a lot more than usual Not at all Thoughts that you would be b nima off , or of hurting yourself in some way Not at all Total Score 5 Intepretation Mild Depression AUDIT-C (Standard) Question Answer Notes Did you have a drink containing alcohol in the p ast year? No Points 0 Interpretation Negative Tobacco Control (Standard) Question Answer Notes Tobacco use: Current smoker When did you start smoking? 08/18/2022 How often do you smoke cigarettes? Every day How many cigarettes a day do you smoke? 21-30 How soon after you wake up do you smoke your fir st cigarette? Within 5 minutes Are you interested in quitting? 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 Vital Signs Height 66 in 08/18/2024 Weight 147.2 lbs 08/18/2024 BMI 23.76 kg/m2 08/18/2024 Blood pressure systolic 147 mm Hg 08/19/19 25 Blood pressure diastolic 94 mm Hg 025 Oximetry 98 % 08/18/2024 Heart Rate 70 /min 08/18/2024 Encounters Encounter Location Date Provider Diagnosis [address] [place] [address] 08/18/2024 Josh Willard Bipolar 1 disorder w ith moderate fern F31.12 Assessments Encounter Date Diagnosis (ICD Code) Assessment Notes Treatment Notes Treatment Clinical Notes Section Notes 08/18/2024 Bipolar 1 disorder with moderate fern (ICD-10 - F31.12) Patient will continue current treatment plan. Patient verbally acknowledges understanding instructions including medication education and has no further questions comments or concerns at this time. . Follow in 1 Month . Recommended treatment for Bipolar disorder includes FDA approved and OFF label medications: second generation antipsychotics and mood stabilizers. Discussed life threatening side effect of Lamotrigine. Pt is to monitor for new skin rashes or sensation of a sunburn or itchiness or redness, mouth sores or sores in mucus membranes, and call provider immediately and or go to ER, and stop the medication. Second generation antipsychotic medications can cause headache, drowsiness, agitation, dizziness, nausea, or extrapyramidal symptoms such as tremors, muscle spasms, slowness of movement or jerking of muscles. . Stable . The patient verbalizes understanding with all questions answered thoroughly and is in agreement with treatment plan. . Continue current treatment. Call for problems . GOALS: . Maintain medication regimen . _Improve mood stability . _Improve anxiety control . _Improve social and interpersonal functioning . Patient/Guardian will call sooner if symptoms worsen. Patient understands to go to ER if needed if symptoms become severe. . Crisis Intervention plan was discussed and agreed upon. Patient/Guardian will call 911 in case of emergency. Emergency contact information was provided to the patient/guardian. . Pharmacological management: . Alternative medication plans were discussed with the patient/guardian. All relevant side effects and potential adverse effects were discussed with the patient/guardian. Standard cautions and potential benefits were discussed. Patient/Guardian consented to the start/continuation of the treatment. Plan Of Treatment Medication Medication Name Sig Start Date Stop Date Notes Melatonin 5 MG 1 tablet in the even ing Orally Once a day for 30 days 06/13/2024 carBAMazepine 200 MG 1 tablet once a day for 5 days, 1 tablet 2 times a day for 5 days, 3 tablets once a day for 5 days, 2 tablets 2 times a day for 15 days Orally for 30 days 08/18/2024 Paliperidone ER 6 MG 1 tablet in the mor nairudh Orally Once a day for 30 days traZODone HCl 100 MG 1 tablet at bedtime as needed Orally Once a day for 30 days busPIRone HCl 30 MG 1 tablet Orally Twice a day Next Appt Details Follow Up: 4 Weeks, Reason: med check Provider Name:Josh Willard, 09/22/2024 05:30:00 PM, [address] [place] [address], [phone], Progress Notes * JENNIFER SPARKS LDOB:[birth year] (39 yo F)Acc No.[id number]:08/18/2024 Behavioral Health Patient: JENNIFER MACKENZIE Provider: GIL Duggan :1985 A ge:39 Y S ex:Female Date:08/18/2024 Address:[address] [place] [address] [address], [address] [id number] Pcp:Kaylee Oden Subjective: * Chief Complaints: * R /s 08/15Pt states she is not sleeping well. Not taking Oxcarbazepin, feels it is making her have racing thoughts and quick to temper. KJ * HPI: C onstitutional: . Pt is here for follow up. Pt is doing well, taking meds daily, tolerating well. Mood has not been fluctuating. Energy and motivation stable, concentration intact without distractibility. Sleeping though the night, feels rested. Attending work as scheduled. Denies increased goal oriented behavior or increase in purposeless activity. Depressive symptoms are not persistent, denies having sadness, anhedonia, isolating behaviors, or crying spells. Denies Euphoria. Pervasive irritability is controlled today. Anxiety not occurring. Tolerating meds well, compliant daily. Meaningful relationships intact. Would like to continue current treatment plan. . Denies suicidal or homicidal ideation or plan. No morbid thoughts. Interpersonal issues discussed. Support provided. Insight oriented/ Behavior modifying/ Supportive therapy . * Medical History: * Surgical History: N o Surgical History documented. * Hospitalization/Major Diagno stic Procedure: P ANCREATITIS 02/2015Pancreatitis 07/2019pancreatitis bdominal Pain/Vomiting 11/2021[facility] 10/2022[facility] 06/04/24-06/11/24[facility] 09/30Low sodium and magnesium 07/2024 * Family History: F ather: alive, diagnosed with Diabetes, Heart Disease, Cancer. S on(s): alive. M other: alive, diagnosed with No Known. 1 sister(s) - healthy. 1 son(s) - healthy. . 4- Step Kids. * Social History: G eneral: D epression Screening (PHQ-9) L ittle interest or pleasure in doing things?Several days F eeling down, depressed, or hopeless S everal days T rouble falling or staying asleep, or sleeping too much S everal days F eeling tired or having little energy S everal days P oor appetite or overeating N ot at all F eeling bad about yourself-or that you are a failure or have let yourself or your family down S everal days T rouble concentrating on things, such as reading the newspaper or watching television N ot at all M oving or speaking so slowly that other people could have noticed. Or the opposite being so fidgety or restless that you have been moving around a lot more than usual N ot at all T houghts that you would be better off , or of hurting yourself in some way N ot at all T otal Score 5 I ntepretation M ild Depression Behaviors affecting health P oor/Risky Behaviors: O ther- Substance abuse/mental health issues of patient/family P atient - A lcohol, Other Social/Support Concerns P atient: N o Ability to understand healthcare/treatment P atient: G ood Communication Barrier L anguage Barrier?: N o D rug/Alcohol: A STEVEN-C (Standard) D id you have a drink containing alcohol in the past year? N o P oints 0 I nterpretation N egative T obacco Use: T obacco Control (Standard) T obacco use: C urrent smoker W hen did you start smoking? 0 08/18/2022 H ow often do you smoke cigarettes? E very day H ow many cigarettes a day do you smoke? 2 1-30 H ow soon after you wake up do you smoke your first cigarette? W ithin 5 minutes A re you interested in quitting? 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 * Medications: T akingPromethazine HCl 25 MG Tablet 1 tablet as needed Orally Multivitamin Vitamin D3 125 MCG (5000 UT) Capsule 1 capsule Orally Once a day Losartan Potassium 50 MG Tablet 1 tablet Orally Once a day Gabapentin 300 MG Capsule 1 tablet Orally 3 times a day busPIRone HCl 30 MG Tablet 1 tablet Orally Twice a day Levothyroxine Sodium 50 MCG Tablet 1 tablet in the morning on an empty stomach Orally Once a day hydrOXYzine Pamoate 50 MG Capsule 1 capsule as needed Orally every 8 hours Melatonin 5 MG Tablet 1 tablet in the evening Orally Once a day traZODone HCl 50 MG Tablet 1 tablet at bedtime as needed Orally Once a day DULoxetine HCl 60 MG Capsule Delayed Release Particles 1 capsule Orally Once a day Atorvastatin Calcium 20 MG Tablet 1 tablet Orally Once a day , Notes to Pharmacist: [place] script for 1 monthOmeprazole 40 MG Capsule Delayed Release TAKE 1 CAPSULE BY MOUTH EVERY MORNING BEFORE BREAKFAST Prochlorperazine Maleate 5 MG Tablet 1 to 2 tablets every 6 to 8 hours as needed for nausea Orally Three times a day amLODIPine Besylate 5 MG Tablet 1 tablet Orally Once a day Paliperidone ER 6 MG Tablet Extended Release 24 Hour 1 tablet in the morning Orally Once a day Taking Promethazine HCl 25 MG Tablet 1 tablet as needed Orally Taking Multivitamin Taking Vitamin D3 125 MCG (5000 UT) Capsule 1 capsule Orally Once a day Taking Losartan Potassium 50 MG Tablet 1 tablet Orally Once a day Taking Gabapentin 300 MG Capsule 1 tablet Orally 3 times a day Taking busPIRone HCl 30 MG Tablet 1 tablet Orally Twice a day Taking Levothyroxine Sodium 50 MCG Tablet 1 tablet in the morning on an empty stomach Orally Once a day Taking hydrOXYzine Pamoate 50 MG Capsule 1 capsule as needed Orally every 8 hours Taking Melatonin 5 MG Tablet 1 tablet in the evening Orally Once a day Taking traZODone HCl 50 MG Tablet 1 tablet at bedtime as needed Orally Once a day Taking DULoxetine HCl 60 MG Capsule Delayed Release Particles 1 capsule Orally Once a day Taking Atorvastatin Calcium 20 MG Tablet 1 tablet Orally Once a day , Notes to Pharmacist: [place] script for 1 monthTaking Omeprazole 40 MG Capsule Delayed Release TAKE 1 CAPSULE BY MOUTH EVERY MORNING BEFORE BREAKFAST Taking Prochlorperazine Maleate 5 MG Tablet 1 to 2 tablets every 6 to 8 hours as needed for nausea Orally Three times a day Taking amLODIPine Besylate 5 MG Tablet 1 tablet Orally Once a day Taking Paliperidone ER 6 MG Tablet Extended Release 24 Hour 1 tablet in the morning Orally Once a day Not-Taking/PRNOXcarbazepine 600 MG Tablet 1 tablet Orally Twice a day Austedo XR 36 MG Tablet Extended Release 24 Hour 1 tablet Orally Once a day QUEtiapine Fumarate 25 MG Tablet TAKE 1 TABLET BY MOUTH EVERY DAY AT BEDTIME FOR 30 DAYS carBAMazepine 200 MG Tablet 1 tablet Orally Twice a day metFORMIN HCl 500 MG Tablet 1 tablet with a meal Oral twice a day OneTouch Ultra - Strip check glucose as directed In Vitro four times a day Topiramate 25 MG Tablet TAKE 1 TABLET BY MOUTH THREE TIMES A DAY AT 8AM AND 1 AT 2PM AND 1 AT 8PM DAILY Folic Acid 1 MG Tablet 1 tablet Orally daily Mirtazapine 15 MG Tablet 2 tablets orally at bedtime Paliperidone ER 9 MG Tablet Extended Release 24 Hour 1 tablet in the morning Orally Once a day Not- Taking/PRN OXcarbazepine 600 MG Tablet 1 tablet Orally Twice a day Not-Taking/PRN Austedo XR 36 MG Tablet Extended Release 24 Hour 1 tablet Orally Once a day Not-Taking/PRN QUEtiapine Fumarate 25 MG Tablet TAKE 1 TABLET BY MOUTH EVERY DAY AT BEDTIME FOR 30 DAYS Not-Taking/PRN carBAMazepine 200 MG Tablet 1 tablet Orally Twice a day Not-Taking/PRN metFORMIN HCl 500 MG Tablet 1 tablet with a meal Oral twice a day Not-Taking/PRN OneTouch Ultra - Strip check glucose as directed In Vitro four times a day Not-Taking/PRN Topiramate 25 MG Tablet TAKE 1 TABLET BY MOUTH THREE TIMES A DAY AT 8AM AND 1 AT 2PM AND 1 AT 8PM DAILY Not-Taking/PRN Folic Acid 1 MG Tablet 1 tablet Orally daily Not-Taking/PRN Mirtazapine 15 MG Tablet 2 tablets orally at bedtime Not-Taking/PRN Paliperidone ER 9 MG Tablet Extended Release 24 Hour 1 tablet in the morning Orally Once a day * Allergies: L isinopril: anaphylaxis - Allergyno[Allergies Verified] Objective: * Vitals: H t: 66 in, Wt: 147.2 lbs, BMI:23.76Index, BP: 147/94 mm Hg, SaO2:98%, HR: 70 /min. * Examination: G eneral Examination: GENERAL APPEARANCE: A lert and oriented, cooperative. NEUROLOGIC EXAM: a lert and oriented x 3, no tremor, normal gait, appropriate for age. PSYCH g ood eye contact, oriented to person, oriented to place, oriented to time, appropriate mood and affect, denies SI/HI, affect normal, affect appropriate, appropriate for age, good eye contact, no thought disorder. General . AIMS EXAM:.AIMS Muscles of Facial Expression: NoneAIMS Lips and Perioral Area: NoneAIMS Jaw Area Involuntary Movements: NoneAIMS Tongue Involuntary Movements: NoneAIMS Upper Arms, Wrists, Hands, Fingers: NoneAIMS Lower Legs, Knees, Ankles, Toes: NoneAIMS Overall Abnormal Movement Severity: NoneAIMS Incapacitation Abnormal Movement: NoneAIMS Self Awareness of Abnormal Movement: Aware, None notedAIMS Current Teeth, Denture Problems: NoAIMS Movements Disappear in Sleep: No. .MENTAL STATUS EXAM:.Appearance: Appropriately dressed and groomed, good eye contact, cooperative, pleasantBehavior/Motor Activity: NormalGait/Station: Within normal limitsBH Speech: NormalMood: GoodAffect: FullThought processes/Associations: Logical and goal directedThought Content: Non-psychoticCognition/Attention/Memory/Concentration: Alert and oriented x 4; grossly intact attention; memory-recent/remote judged adequate by interviewerInsight: GoodJudgement: GoodBH language: Within normal limitsFund of Knowledge: Adequate.. Assessment: * Assessment: 1. B ipolar 1 disorder with moderate fern - F31.12 (Primary) Plan: * Treatment: * Procedure Codes: 3 080F DIAST BP = 90 MM [id number] SYST BP >= 140 MM HG * Follow Up: 4 Weeks (Reason: med check) * Images: * Sign off status: Completed true * Provider: GIL Duggan Date: 08/18/2024 Generated for Dariela munoz/Jesus/Phani on: 08/30/2024 04:46 PM EDT History and Physical Notes * Examination Category Sub-Category Detail Notes Category Not es General Examination GENERAL APPEARANCE: Alert an d oriented, cooperative NEUROLOGIC EXAM: alert and oriented x 3, no tremor, normal gait, appropriate for age DIABETIC FOOT EXAM Monofilament: normal PSYCH good eye contact, or iented to person, oriented to place, oriented to time, appropriate mood and affect, denies SI/HI, affect normal, affect appropriate, appropriate for age, good eye contact, no thought disorder General .AIMS EXAM:.AIMS Mus cles of Facial Expression: NoneAIMS Lips and Perioral Area: NoneAIMS Jaw Area Involuntary Movements: NoneAIMS Tongue Involuntary Movements: NoneAIMS Upper Arms, Wrists, Hands, Fingers: NoneAIMS Lower Legs, Knees, Ankles, Toes: NoneAIMS Overall Abnormal Movement Severity: NoneAIMS Incapacitation Abnormal Movement: NoneAIMS Self Awareness of Abnormal Movement: Aware, None notedAIMS Current Teeth, Denture Problems: NoAIMS Movements Disappear in Sleep: No. .MENTAL STATUS EXAM:.Appearance: Appropriately dressed and groomed, good eye contact, cooperative, pleasantBehavior/Motor Activity: NormalGait/Station: Within normal limitsBH Speech: NormalMood: GoodAffect: FullThought processes/Associations: Logical and goal directedThought Content: Non-psychoticCognition/Attention/Memory/Concentration: Alert and oriented x 4; grossly intact attention; memory-recent/remote judged adequate by interviewerInsight: GoodJudgement: GoodBH language: Within normal limitsFund of Knowledge: Adequate.
--- OUTSIDE RECORDS SUMMARY | 2024-08-29 07:00 | XMS_ITS ---
Author Organization [facility] es Address [address] [place] [address] Care Team Providers Care Pharmacy Resource Tech Name Role Phone Kaylee Oden Primary Care Provider Patti Metzger Unavailable [phone] Nicole Burns Unavailable [phone] REASON FOR VISIT 1 Month F/U Encounters Encounter Location Date Provider Diagnosis [address] [place] [address] 08/29/2024 Nicole Burns Plan Of Treatment Next Appt Details Provider Name:Josh Willard, 09/22/2024 05:30:00 PM, [address] [place] [address], [phone], Progress Notes * JENNIFER SPARKS LDOB:[birth year] (39 yo F)Acc No.[id number]:08/29/2024 Progress Notes Patient: Marlin RODOLFOEYAL JENNIFER Whitley Provider: BRADY Medina :1985 A ge:39 Y S ex:Female Date:08/29/2024 Address:[address] [place], [place] [address]Y [id number] Pcp:Kaylee Oden Subjective: * Chief Complaints: * 1 . 1 Month F/U. * Medical History: Objective: * Vitals: Assessment: Plan: * Treatment: * Images: * Electronic signature of Maryse Burns CNP on 08/30/2024 at 04:46 PM EDT Sign off status: Pending * Provider: BRADY Medina Date: 0 08/29/2024 Generated for Dariela munoz/Jesus/Phani on: 0 08/30/2024 04:46 PM EDT
[2024-08-30 16:40] VITALS: BP 160/100; PULSE 102; TEMP 36.7; O2SAT 100; BMI 23.9
--- OUTSIDE RECORDS SUMMARY | 2024-08-30 16:46 | XMS_ITS | Clinical Summary ---
Author Organization [facility] Address [address] [place] [address] Care Team Providers Care Cap Cutter Name Role Phone Unavailable Primary Care Provider Unavailabl e Social History Tobacco Use Types Packs/Day Years Used Date Smoking Tobacco: Never Assessed Comments Unknown Sex and Gender Information Value Date Recorded Sex Assigned at Not on file Legal Sex Female 6:45 PM EDT Gender Identity Not on file Sexual Orientation Not on file Last Filed Vital Signs Vital Sign Reading Time Taken Comments Blood Pressure 128/80 11/18/2018 12:00 PM EDT Pulse - - Temperature - - Respiratory Rate - - Oxygen Saturation - - Inhaled Oxygen Concentration - - Weight 78.1 kg (172 lb 3.2 oz) 11/18/2018 12:00 PM EDT Height 167.6 cm (5' 6 ) 11/18/2018 12:00 PM EDT Body Mass Index 27.79 11/18/2018 12:00 PM EDT Plan of Treatment Not on file Insurance [facility]
--- OUTSIDE RECORDS SUMMARY | 2024-08-30 16:47 | XMS_ITS | Patient Health Record ---
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 Name Role Phone Kaylee Oden Primary Care Provider [phone] Patti Metzger Unavailable [phone] Nicolasa Blanca Unavailable [phone] Helga Nair Unavailable [phone] Josh Willard Unavailable [phone] Alyson Rueda Unavailable [phone] Nicole Burns Unavailable [phone] Allergies Allergen (clinical drug ingredient) Drug/Non Drug Allergy documented on EMR Reaction Allergy Type Onset Date Status lisinopril Lisinopril anaphylaxis Drug Allergy Act geneva Results Component Value Reference Range Notes Magnesium Reviewed date:07/25/2024 09:07:14 AM Interpretation: Performing Lab: Notes/Report: Magnesium 1.4 1.9-2.7 mg/dL Drug Screen,Urine (Not yet r eviewed by provider) Interpretation:Positive Performing Lab: Notes/Report: Positive Amphetamine Screen,Urine NEG Barbiturate Screen,Urine POS Benzodiazepines Screen,Urine POS Cocaine Screen,Urine NEG Opiate Screen,Urine NEG Phencyclidine Screen,Urine NEG Cannabinoid Screen,Urine POS Complete Blood Count Auto Di ff Reviewed date:07/25/2024 09:07:32 AM Interpretation: Performing Lab:, [facility], [address] [place] Notes/Report: White Blood Count 6.9 3.8-11.6 10*3/uL Uncorrected WBC 6.9 3.8-11.6 10*3/uL Red Blood Count 4.53 3.60-5.00 10*6/uL Hemoglobin 13.9 11.8-15.4 g/dL Hematocrit 39.2 34.0-46.4 % Mean Corpuscular Volume 86.7 80-100 fL Mean Corpuscular Hemoglobin 30.7 24.7-34.3 pg Mean Corpuscular HGB Conc 35.4 32.0-35.0 g/dL Red Cell Distribution Width 13.4 11.9-15.3 % Platelet Count 365 150-450 10*3/uL Mean Platelet Volume 7.0 6.3-10.7 fL Neutrophils % (Auto) 46.5 . % Lymphocytes % (Auto) 42.4 . % Monocytes % (Auto) 8.1 . % Eosinophils % (Auto) 1.9 . % Basophils % (Auto) 1.1 . % NRBC% 0.0 0-0.5 /100{WBC} Neutrophils # (Auto) 3.2 1.8-7.7 10*3/uL Lymphocytes # (Auto) 2.9 1.00-4.8 10*3/uL Monocytes # (Auto) 0.6 0.0-0.8 10*3/uL Eosinophils # (Auto) 0.1 0.0-0.45 10*3/uL Basophils # (Auto) 0.1 0.0-0.2 10*3/uL Monocyte Distribution Width 19.67 0.00-20.00 % Comprehensive Metabolic Pane l Reviewed date:07/25/2024 09:07:03 AM Interpretation: Performing Lab:, [facility], [address] [facility] Notes/Report: Glucose 66 70-100 mg/dL Random Glucose Reference Range is dependent on time and content of last meal. Glucose of more than 200 mg/dL in a nonstressed, ambulatory subject supports the diagnosis of Diabetes Mellitus. ADA recommended reference range Blood Urea Nitrogen 8 7-25 mg/dL Creatinine 0.55 0.60-1.20 mg/dL Sodium 121 136-145 mmol/L Critical Result Called to and read back by: ALEJANDRA KELLER at: 07/24/2024 21:12:02 by:LFM Potassium 3.7 3.5-5.1 mmol/L Hemolysis is present at a level that could interfere with the result. Contact lab if redraw is required Chloride 89 98-107 mmol/L Carbon Dioxide 22.7 21.0-31.0 mmol/L Calcium 9.6 8.6-10.3 mg/dL Total Protein 7.6 6.4-8.9 g/dL Albumin Level 4.6 3.5-5.7 g/dL Globulin 3.0 Albumin/Globulin Ratio 1.5 Bilirubin,Total 0.4 0.3-1.0 mg/dL Aspartate Amino Transferase 19 13-39 U/L Alanine Aminotransferase 21 7-52 U/L Alkaline Phosphatase 73 34-104 U/L Estimated GFR >60.0 Anion Gap 13.0 6.0-15.0 meq/L Creatinine Clr Calc Pharmacy 127.29 Reason For Referral No Information Medications Medication SIG (Take, Route, Frequency, Duration) Notes Start Date End Date Status Paliperidone ER 9 MG 1 tablet in the morning Orally Once a day for 30 day(s) 01/16/2023 Not-Taking OXcarbazepine 600 MG 1 tablet Orally Twice a day for 30 days Not-Taking Promethazine HCl 25 MG 1 tablet as needed Orally 07/17/2024 Active Topiramate 25 MG TAKE 1 TABLET BY MOUTH THREE TIMES A DAY AT 8AM AND 1 AT 2PM AND 1 AT 8PM DAILY for 90 Not-Taking OneTouch Ultra - check glucose as directed In Vitro four times a day for 30 days Not-Taking Vitamin D3 125 MCG (5000 UT) 1 capsule Orally Once a day Active Mirtazapine 15 MG 2 tablets orally at bedtime Not-Taking Multivitamin Active Folic Acid 1 MG 1 tablet Orally daily for 30 day(s) Not-Taking QUEtiapine Fumarate 25 MG TAKE 1 TABLET BY MOUTH EVERY DAY AT BEDTIME FOR 30 DAYS for 90 Not-Taking Austedo XR 36 MG 1 tablet Orally Once a day Not-Taking Losartan Potassium 50 MG 1 tablet Orally Once a day for 90 days 06/09/2021 Active metFORMIN HCl 500 MG 1 tablet with [...] a day for 7 days 07/17/2024 Active DULoxetine HCl 60 MG 1 capsule Orally Once a day for 30 days Active Atorvastatin Calcium 20 MG 1 tablet Orally Once a day for 30 days Bridge script for 1 month Active Levothyroxine Sodium 50 MCG 1 tablet in the morning on an empty stomach Orally Once a day for 90 days Active hydrOXYzine Pamoate 50 MG 1 capsule as needed Orally every 8 hours for 30 days 07/21/2021 Active Paliperidone ER 6 MG 1 tablet in the morning Orally Once a day for 30 days Active Melatonin 5 MG 1 tablet in the evening Orally Once a day for 30 days 06/13/2024 Active traZODone HCl 100 MG 1 tablet at bedtime as needed Orally Once a day for 30 days Active carBAMazepine 200 MG 1 tablet once a day for 5 days, 1 tablet 2 times a day for 5 days, 3 tablets once a day for 5 days, 2 tablets 2 times a day for 15 days Orally for 30 days 08/18/2024 Active Gabapentin 300 MG 1 tablet Orally 3 times a day for 30 day(s) Active Omeprazole 40 MG TAKE 1 CAPSULE BY MOUTH EVERY MORNING BEFORE BREAKFAST for 90 Active Social History Tobacco Use: Social History [...] all Total Score 5 Intepretation Mild Depression PRAPARE Question Answer Notes Date Completed/Updated: 11/10/2020 What is your current housing situation? I have h ousing Are you worried about losing your housing? No What is the highest level of school that you have finished? 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 Check all that apply I do not have problems meeting my needs Has lack of transportation k ept you from medical appointments, meetings, work or from getting things needed for daily living? No How often do you see or talk to people that you care about and feel close to? (For example: talking to friends on the phone, visiting friends or family, going to scientology or club meetings) More than 5 times a week How stressed are you? Stress is when someone feels tense, nervous, anxious, or cant sleep at night because their mind is troubled Very much In the past year have you sp ent more than 2 nights in a row in a penitentiary, detention, fpc center, or juvenile correctional facility? No Are you a refugee? No What country are you from? [place] Do you feel physically and e motionally safe where you currently live? Yes In the past year, have you b een afraid of your partner or ex-partner? No PRAPARE Score: 3 AUDIT-C (Standard) Question Answer Notes Did you [...] been sober from alcohol for 5 weeks. Ricarda Chowdary Pt states she has been sober from alcohol for 5 weeks. Ricarda 03/30/15: Smokes 2 cigarette s per day, drinks ETOH 3 times per week 6 beers, denies IDU Ricarda Chowdary Pt states she has been sober from alcohol for 5 weeks. Ricarda 03/30/15: Smokes 2 cigarette s per day, drinks ETOH 3 times per week 6 beers, denies IDU 12/22/15: Smokes 2 cigarette s per day, drinks ETOH 3 times per week 6 beers, denies IDU Problems Problem Type SNOMED Code ICD Code Onset Dates Problem Status W/U Status Risk Notes Problem Alcohol dependence (79067722) Alcohol dependence, uncomplicated (F10.20) Active confirmed Problem 09309397 Anxiety (F41.9) Active confirmed Problem 236015751 Depression with anxiety (F41.8) Active confirmed Problem 529467038 Neuropathy (G62.9) Active confirmed Problem Alcohol abuse (62181151) Alcohol abuse (F10.10) Active confirmed Problem 09628010 Hypothyroidism, unspecified type (E03.9) Active confirmed Problem 669346509 Insomnia, unspec ified type (G47.00) Active confirmed Problem Recurrent pancreatitis (928680408) Recurrent pancreatitis (K86.1) Active confirmed Problem Benign essential hypertension (4863648) Benign essential hypertension (I10) Active confirmed Problem 90813019 Hypercholesterem ia (E78.00) Active confirmed Problem 579186872 Bipolar affectiv e disorder, currently manic, moderate (F31.12) Active confirmed Problem 3934290930 History of alcoh ol abuse (F10.11) Active confirmed Problem 091204634 Uses contr ol (Z78.9) Active confirmed Problem Gastroesophageal reflux disease, unspecified whether esophagitis present (K21.9) Active confirmed Vital Signs Heart Rate 70 /min 08/18/2024 Temperature 97.7 degrees Fahrenheit 07/24/2024 Respiratory Rate 20 /min 07/24/2024 Oximetry 98 % 08/18/2024 Blood pressure diastolic 94 mm Hg 08/18/2024 Height 66 in 08/18/2024 Blood pressure systolic 147 mm Hg 08/18/2024 Weight 147.2 lbs 08/18/2024 BMI 23.76 kg/m2 08/18/2024 Encounters Encounter Location Date Provider Diagnosis [facility] [address] [place] [address] 10/24/2023 [facility] [address] [place] [address] 10/29/2023 [facility] [address] [place] [address] 11/20/2023 [facility] [place] [address] [place] [address] 12/07/2023 [facility] [address] [place] [address] 06/09/2024 [place] [address] [place] [address] 06/11/2024 [facility] [address] [place] [address] 06/13/2024 Ki Soviak Bipolar 1 disorder w ith moderate fern F31.12 [facility] [address] [place] [address] 06/13/2024 Kip Soviak Bipolar 1 disorder w ith moderate fern F31.[address] [place] [address] 07/17/2024 Nicole Burns Benign essential hypertension I10 [facility] [place] [address] 07/17/2024 Patti Metzger [place] [address] [place] [address] 07/24/2024 Helga Nair [place] [address] [place] [address] 07/25/2024 Nicole Burns [place] [address] [place] [address] 07/28/2024 Nicole Burns [place] [address] [place] [address] 08/05/2024 Nicole Burns [place] [address] [place] [address] 08/19/2024 Nicole Burns Benign essential hypertension I10 [facility] [place] [address] 08/29/2024 Nicole Burns [facility] [address] [facility] [place] [address] 07/17/2024 Nicole Burns Nausea R11.0 ; Histo ry of alcohol abuse F10.11 and Gastroesophageal reflux disease, unspecified whether esophagitis present K21.9 [facility] [address] [facility] [place] [address] 07/24/2024 Nicole Burns Nausea and vomiting, unspecified vomiting type R11.2 and Low sodium levels E87.1 [facility] [address] [place] [address] 06/13/2024 Kip Soviak Bipolar 1 disorder w ith moderate fern F31.12 and Hypothyroidism, unspecified type E03.9 [facility] [address] [place] [address] 08/18/2024 Kip Soviak Bipolar 1 disorder w ith moderate fern F31.12 [facility] [address] [facility] [place] [address] 07/18/2024 Kip Soviak Bipolar 1 disorder w ith moderate fern F31.12 [facility] [address] [facility] [place] [address] 10/23/2023 Kip Soviak Bipolar 1 disorder w ith moderate fern F31.12 [facility] [address] [address] 06/18/2024 Patti Metzger Alcohol dependence, uncomplicated F10.20 Assessments Encounter Date Diagnosis (ICD Code) Assessment Notes Treatment Notes Treatment Clinical Notes Section Notes 06/13/2024 Bipolar 1 disorder with moderate fern (ICD-10 - F31.12) 10/23/2023 Bipolar 1 disorder with moderate fern (ICD-10 - F31.12) Patient will continue alter treatment plan. Patient will reduce paliperidone to 3 mg. For the next 30 days. Follow-up in 1 month to discuss and evaluate treatment plan changes. Patient verbally acknowledges understanding instructions including medication [...] Emergency contact information was provided to the patient/guardian . . Pharmacological management: . Alternative medication plans were discussed with the patient/guardian . All relevant side effects and potential adverse effects were discussed with the patient/guardian . Standard cautions and potential benefits were discussed. Patient/Guardian consented to the start/continuati on of the treatment. 06/13/2024 Hypothyroidism, unspecified type (ICD-10 - E03.9) 06/13/2024 Bipolar 1 disorder with moderate fern (ICD-10 [...] Emergency contact information was provided to the patient/guardian . . Pharmacological management: . Alternative medication plans were discussed with the patient/guardian . All relevant side effects and potential adverse effects were discussed with the patient/guardian . Standard cautions and potential benefits were discussed. Patient/Guardian consented to the start/continuati on of the treatment. 06/13/2024 Bipolar 1 disorder with moderate fern (ICD-10 - F31.12) 06/18/2024 Alcohol dependence, uncomplicated (ICD-10 - F10.20) AUD: a chronic disease process with high likelihood of complication, including , even when in a stable state. Disease requiring ongoing medication management and evaluation Medical: Refill for Atorvastatin as bridge script for 1 month MH: Sees PMHNP Tobacco: declined smoking cessation Reviewed diversion control: no selling, trading or sharing medication OARRS: reviewed Medication: Naltrexone 50mg daily and Vivitrol 380mg injection prescribed RTC 4 weeks 07/17/2024 Nausea (ICD-10 - R11.0) May use Compazine as needed for nausea. Labs ordered will call patient with abnormal results. Instructed patient to seek immediate medical attention if vomiting is uncontrollable and or vomits blood. Encouraged use of alternative methods to control nausea like warm, flat coke. 07/17/2024 History of alcohol abuse (ICD-10 - F10.11) 07/17/2024 Benign essential hypertension (ICD-10 - I10) 07/18/2024 Bipolar 1 disorder with moderate fern (ICD-10 [...] Emergency contact information was provided to the patient/guardian . . Pharmacological management: . Alternative medication plans were discussed with the patient/guardian . All relevant side effects and potential adverse effects were discussed with the patient/guardian . Standard cautions and potential benefits were discussed. Patient/Guardian consented to the start/continuati on of the treatment. 07/24/2024 Low sodium levels (ICD-10 - E87.1) Will recheck sodium level today. Concerned that oxcarbazepine and exessive water intake may be contributing to low sodium leading to nausea and vomiting. Will consider adding a sodium tablet twice daily and limiting water intake. Will call patient with sodium results. If Sodium is low will contact about changing or lowering Oxcarbazepine dose. 07/24/2024 Nausea and vomiting, unspecified vomiting type (ICD-10 - R11.2) 08/18/2024 Bipolar 1 disorder with moderate fern [...] Emergency contact information was provided to the patient/guardian . . Pharmacological management: . Alternative medication plans were discussed with the patient/guardian . All relevant side effects and potential adverse effects were discussed with the patient/guardian . Standard cautions and potential benefits were discussed. Patient/Guardian consented to the start/continuati on of the treatment. 08/19/2024 Benign essential hypertension (ICD-10 - I10) 07/17/2024 Gastroesophageal reflux disease, unspecified whether esophagitis present (ICD-10 - K21.9) 06/18/2024 Other Visit conducted by HIPAA-compliant with zoom video telemedicine/in person Patient identified with name and date of Patient is located in clinic. Provider is located in home office 07/17/2024 Other Body Mass Index : Care Instructions material was published, Body Mass Index: Care Instructions material was printed 07/24/2024 Other Body Mass Index : Care Instructions material was published, Body Mass Index: Care Instructions material was printed Plan Of Treatment Pending Test Test Name Order Date Vitamin B12 07/17/2024 Comprehensive Metabolic Panel 07/17/2024 Hepatic Panel 07/17/2024 Lipid Panel 07/17/2024 Thyroid Stim Hormone w/Rflx 07/17/2024 Vitamin D 25 Hydroxy 07/17/2024 Vitamin B1 (Thiamine) Blood 07/17/2024 Drug Screen,Urine 06/18/2024 Iron and TIBC Profile 07/17/2024 Next Appt Details Provider Name:Josh Willard, 09/22/2024 05:30:00 PM, [address] [place] [address], [phone], Insurance Providers Payer Name Payer Address Payer Phone Subscriber Number Group Number Insured Name Patient Relationship to Insured Coverage Start Date Coverage End Date ANTHEM Primary [address] [place] [address] [phone] [id number] JENNIFER SPARKS Self - patient is the insured 9 Medical (General) History Medical History History ICD Code Pancreatits Anxiety hypertension hypercholesterolemia ulcerative colitis Crohns disease neuropathy Depression Hospitalization History Reason Date(Month/Year) Low sodium and magnesium 07/2024 [facility] 09/30 [facility] 06/04/24-06/11/24 [facility] Abdominal Pain/Vomiting 11/2021 pancreatitis 07/2021 Pancreatitis 07/2019 PANCREATITIS 02/2015
--- OUTSIDE RECORDS SUMMARY | 2024-08-30 16:47 | XMS_ITS | Clinical Summary ---
Author Organization [facility] tem Address [id number] [address] 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-OPERATIONS SUPERINTENDENT Primary Care Provider Allergies Active Allergy Reactions Criticality Noted Date Comments Lisinopril Anaphylaxis High 06/04/2024 Encounters Date Type Department Care Team Description 06/04/2024 12:45 PM EST - 06/04/2024 5:47 PM EST Emergency [facility] - Emergency [address] [place] [id number] Rodney Matthews MD Acute alcoholic intoxication without complication (CMS-HCC) (Primary Dx) Discharge Disposition: Home 06/04/2024 Travel from Last 3 Months Social History Tobacco Use Types Packs/Day Years Used Date Smoking Tobacco: Never Assessed Hunger Screening Answer Date Recorded Within the past 12 months we worried whether our food would run out before we got money to buy more. Never True 06/04/2024 Within the past 12 months th e food we bought just didn't last and we didn't have money to get more. Never True 06/04/2024 Comments Unknown Sex and Gender Information Value Date Recorded Sex Assigned at Not on file Legal Sex Female 11:56 AM EST Gender Identity Not on file Sexual Orientation Not on file Last Filed Vital Signs Vital Sign Reading Time Taken Comments Blood Pressure 129/76 06/04/2024 5:08 PM EST Pulse 90 06/04/2024 5:08 PM EST Temperature 36.9 C (98.4 F) 06/04/2024 12:30 PM EST Respiratory Rate 20 06/04/2024 5:08 PM EST Oxygen Saturation 98% 06/04/2024 5:08 PM EST Inhaled Oxygen Concentration - - Weight 59 kg (130 lb) 06/04/2024 12:30 PM EST Height 167.6 cm (5' 6 ) 06/04/2024 12:30 PM EST Body Mass Index 20.98 06/04/2024 12:30 PM EST Plan of Treatment Not on file Medical Devices Not on file Procedures Procedure Name Priority Date/Time Associated Diagnosis Comments POCT , URINE (NUCG) Routine 06/04/2024 5:15 PM EST POCT NURSING URINE MACROSCOPIC UA Routine 06/04/2024 5:14 PM EST DRUG SCREEN, URINE STAT 06/04/2024 4: 45 PM EST MAGNESIUM STAT 06/04/2024 12:19 PM EST COMPREHENSIVE METABOLIC PANEL STAT 06/04/2024 12:19 PM EST ETHANOL STAT 06/04/2024 12:19 PM EST CBC WITH AUTO DIFFERENTIAL STAT 06/04/2024 12:19 PM EST from Last 3 Months Results * POCT , urine (06/04/2024 5:15 PM EST) Nursing urine Negative Negative^N egative 06/04/2024 5:11 PM EST [facility] Urine / Unknown 06/04/2024 5 :15 PM EST 06/04/2024 5:11 PM EST us Rodney Matthews MD POINT OF CARE TEST ORDERABLES F inal Result [address], [place] [address] * POCT Nursing Urine Macroscopic UA (06/04/2024 5:14 PM EST) Specific gravity GEREMIAS <=1.005 1.003 - 1.035 06/04/2024 5:05 PM [facility] Leukocyte esterase GEREMIAS Negative Negative^ Negative 06/04/2024 5:05 PM [facility] Nitrite GEREMIAS Negative Negative^ Negative 06/04/2024 5:05 PM [facility] Ph 5.5 5.0 - 8.5 06/04/2024 5:05 PM [facility] Protein GEREMIAS Negative Negative^ Negative mg/dL 06/04/2024 5:05 PM [facility] Urine glucose GEREMIAS Negative Negative^ Negative mg/dL 06/04/2024 5:05 PM [facility] Ketones GEREMIAS Negative Negative^ Negative mg/dL 06/04/2024 5:05 PM [facility] Urobilinogen GEREMIAS 0.2 <1.1 eu/dL 06/04/2024 5:05 PM [facility] Bilirubin GEREMIAS Negative Negative^ Negative 06/04/2024 5:05 PM [facility] Hemoglobin GEREMIAS Negative Negative^ Negative 06/04/2024 5:05 PM [facility] Urine / Unknown 06/04/2024 5 :14 PM EST 06/04/2024 5:05 PM EST Rodney Matthews MD POINT OF CARE TEST ORDERABLES F inal Result [address], [place] [address] * (ABNORMAL) Drug Screen, Urine (06/04/2024 4:45 PM EST) Amphetamine/metham phetamine Negative Negative^ Negative 06/04/2024 5:40 PM [facility] Comment:AMPH/METH screening cut off = 1000 ng/mL Barbiturate Screen, Ur Negative Negative^ Negative 06/04/2024 5:40 PM [facility] Comment:Barbiturates screeni ng cut off value = 200 ng/mL Benzodiazepine Screen, Urine Positive(A) Negative^ Negative 06/04/2024 5:40 PM [facility] Comment: Confirmation available upon request. Benzodiazepines screening cut off value = 200 ng/mL THC, urine Positive(A) Negative^ Negative 06/04/2024 5:40 PM [facility] Comment: Confirmation available upon request. Cannabinoids/THC screening cut off value = 50 ng/mL Cocaine (metabolite) Negative Negative^ Negative 06/04/2024 5:40 PM [facility] Comment:Cocaine screening cu t off value = 300 ng/mL Opiate Quant, Ur Negative Negative^ Negative 06/04/2024 5:40 PM [facility] Comment: Opiates screening cut off value = 300 ng/mL NOTE: This test is used for the detection of codeine, hydrocodone (>1000 ng/mL), morphine and hydromorphone (>900 ng/mL) in urine. Phencyclidine Negative Negative^ Negative 06/04/2024 5:40 PM [facility] Comment:Phencyclidine screen ing cut off value = 25 ng/mL Oxycodone Negative Negative^ Negative 06/04/2024 5:40 PM [facility] Comment: Oxycodone screening cut off value = 300 ng/mL NOTE: This test is used for the detection of oxycodone and oxymorphone in urine. Methadone Negative Negative^ Negative 06/04/2024 5:40 PM [facility] Comment:Methadone screening cut off value = 300 ng/mL. Ecstasy Negative Negative^ Negative 06/04/2024 5:40 PM [facility] Comment: Ecstasy screening cut off value = 500 ng/mL This report is intended for use in clinical monitoring or management of patients. Urine Urine / Unknown 06/04/2024 4 :45 PM EST 06/04/2024 5:12 PM EST us Rodney Matthews MD URINE ORDERABLES Final Result [address] [place] [address] * (ABNORMAL) CBC auto differential (06/04/2024 12:19 PM EST) White Blood Cells 7.5 4.0 - 11.0 X10E9/L 06/04/2024 12:52 PM [facility] RBC count 4.80 3.80 - 5.20 X10E12/L 06/04/2024 12:52 PM [facility] Hemoglobin 15.4 11.7 - 15.5 g/dL 06/04/2024 12:52 PM [facility] Hematocrit 45.1 35 - 47 % 06/04/2024 12:52 PM [facility] MCV 94 80 - 100 fL 06/04/2024 12:52 PM [facility] MCH 32.1 27 - 34 pg 06/04/2024 12:52 PM [facility] MCHC 34.1 32 - 36 g/dL 06/04/2024 12:52 PM [facility] RDW 15.2(H) 11.5 - 15.0 % 06/04/2024 12:52 PM [facility] Platelets 546(H) 150 - 450 X10E9/L 06/04/2024 12:52 PM [facility] MPV 7.2 7 - 12 fL 06/04/2024 12:52 PM [facility] % neutrophils 71.9 % 06/04/2024 12:52 PM [facility] % lymphocytes 23.0 % 06/04/2024 12:52 PM [facility] % monocytes 4.6 % 06/04/2024 12:52 PM [facility] % eosinophils 0.2 % 06/04/2024 12:52 PM [facility] % Basophils 0.3 % 06/04/2024 12:52 PM [facility] Neutrophils Absolute (A) 5.4 1.5 - 6.6 X10E9/L 06/04/2024 12:52 PM [facility] Lymphocytes Absolute 1.7 1.0 - 3.5 X10E9/L 06/04/2024 12:52 PM [facility] Monocytes Absolute 0.3 0 - 0.9 X10E9/L 06/04/2024 12:52 PM [facility] Eosinophils Absolute 0.0 0.0 - 0.4 X10E9/L 06/04/2024 12:52 PM [facility] Basophils Absolute 0.0 0.0 - 0.2 X10E9/L 06/04/2024 12:52 PM EST [facility] Blood Blood / Unknown 06/04/2024 1 2:19 PM EST 06/04/2024 12:21 PM EST Rodney Matthews MD LAB BLOOD ORDERABLES Final Resu lt Performing Organization Address [facility]/ZIP Co de Phone Number [address] [address] * (ABNORMAL) Magnesium (06/04/2024 12:19 PM EST) Magnesium 1.7(L) 1.8 - 2.6 mg/dL 06/04/2024 12:42 PM EST [facility] Blood (PLASMA) 06/04/2024 12 :19 PM EST 06/04/2024 12:21 PM EST Rodney Matthews MD LAB BLOOD ORDERABLES Final Resu lt Performing Organization Address [facility] Co de Phone Number [address] [address] * (ABNORMAL) Ethanol (06/04/2024 12:19 PM EST) Ethanol Lvl 0.37(HH) 0.00 - 0.08 g/dL 06/04/2024 1:10 PM EST [facility] Comment: This report is intended for use in clinical monitoring or management of patients. Blood (MISC) 06/04/2024 12:1 9 PM EST 06/04/2024 12:21 PM EST Comment:Plasma~Miscellaneous us Rodney Matthews MD LAB BLOOD ORDERABLES Edited Res ult - Final Performing Organization Address City/[facility]/ZIP Co de Phone Number [address] [address] * (ABNORMAL) Comprehensive metabolic panel (06/04/2024 12:19 PM EST) Sodium 131(L) 134 - 146 mmol/L 06/04/2024 12:39 PM [facility] Potassium, Bld 3.7 3.5 - 5.0 mmol/L 06/04/2024 12:39 PM [facility] Chloride 95(L) 98 - 109 mmol/L 06/04/2024 12:39 PM [facility] CO2 20(L) 22 - 32 mmol/L 06/04/2024 12:39 PM [facility] Anion gap 16(H) 5 - 15 mmol/L 06/04/2024 12:39 PM [facility] BUN 6 5 - 23 mg/dL 06/04/2024 12:42 PM [facility] Creatinine 0.53 0.40 - 1.00 mg/dL 06/04/2024 12:42 PM [facility] Comment:METHOD TRACEABLE TO [facility] STANDARD Glucose 131(H) 65 - 99 mg/dL 06/04/2024 12:39 PM [facility] Calcium 9.3 8.5 - 10.5 mg/dL 06/04/2024 12:39 PM [facility] Total Protein 9.2(H) 6.0 - 8.0 g/dL 06/04/2024 12:42 PM [facility] Albumin 5.1 3.2 - 5.3 g/dL 06/04/2024 12:42 PM [facility] Alkaline Phosphatase 121 39 - 130 U/L 06/04/2024 12:42 PM [facility] AST 141(H) 0 - 41 U/L 06/04/2024 12:42 PM [facility] ALT 85(H) 0 - 31 U/L 06/04/2024 12:42 PM [facility] Total bilirubin 0.9 0.3 - 1.2 mg/dL 06/04/2024 12:42 PM [facility] eGFR (CKD-EPI)non-rac e dependent >90 >59 ml/min/1.7 3sq.m 06/04/2024 12:42 PM [facility] Comment: Reported eGFR is based on the CKD-EPI 2020 equation that does not use a race coefficient. Blood (PLASMA) 06/04/2024 12 :19 PM EST 06/04/2024 12:21 PM EST us Rodney Matthews MD LAB BLOOD ORDERABLES Final Resu lt [id number] [address] [place] [address] from Last 3 Months Insurance ANTH Care Teams Professional Development Manager Relationship Specialty Start Date End Date Nicolasa Blanca APRN-EVANGELINA [address] [place] [phone] PCP - General Family Medicine 06/04/24
--- NOTE | 2024-08-30 16:52 | ECG_ITS ---
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 Measurements Intervals Reading Rate: 81 P: 58 [place]: 180 QRS: 39 QRSD: 82 T: 42 QT: 362 QTc: 399 Interpretive Statements 1100 Sinus rhythm 9110 normal ECG Compared to ECG 04/22/2024 19:27:45 Heart rate has decreased by 28 BPM Electronically Signed On 08-31-2024 13:48:20 EDT by ISIS DAVIS M.D.
--- NOTE | 2024-08-30 16:58 | ED.GENADUL1 ---
HPI HPI - General Adult General Chief complaint: Nausea/Vomiting/Diarrhea Stated complaint: NAUSEA, DOUBLE VISION, VOMITING Time Seen by Provider: 08/30/24 16:46 Source: patient Mode of arrival: walk-in History of Present Illness HPI narrative: 39-year-old female presents to the ER with a myriad of complaints. Patient states she has not felt well for the last 2 weeks. She reports being hospitalized at [facility] earlier in the month with low sodium. They believed it was related to carbamazepine and she was taken off this medication and placed on a another medication that she has taken before for bipolar. Patient states he also recently changed her blood pressure medicine she was placed on sodium tablets by publication director and at her outpatient follow-up they removed her from these and patient states since that time she has not felt well she is concerned that her sodium is low. She reports having nausea and vomiting for the past 2 days denies diarrhea or abdominal pain. She reports having episodes of double vision in her right eye only and thought it was related to her contact but it can come and go at times but without pain. She denies any loss of vision. She reports just generally not feeling well and recently established a PCP with [facility] in [place]. Patient states she has been to [facility] a few times but has not gotten any longstanding answers. She appears mildly anxious at the bedside. Pt states she is suppose to be on a fluid restriction to 32oz a day per her pcp, but has not been following this. We have requested records from [facility] regarding discharge summary and tx. Onset (ago): day(s) (2 days) Relieving factors: Reports none Exacerbating factors: Reports none Associated symptoms: Denies rash Treatments prior to arrival: Reports none Related Data Home Medications ?Medication ?Instructions ?Recorded ?Confirmed levothyroxine 50 mcg tablet 50 mcg PO DAILY 08/17/23 04/22/24 quetiapine 25 mg tablet 25 mg PO BID 08/17/23 04/22/24 atorvastatin 20 mg tablet 20 mg PO .QHS 03/29/24 04/22/24 cholecalciferol (vitamin D3) 125 125 mcg PO DAILY 03/29/24 04/22/24 mcg (5,000 unit) capsule gabapentin 100 mg capsule 200 mg PO TID 03/29/24 04/22/24 hydroxyzine pamoate 50 mg capsule 50 mg PO Q6H PRN anxiety 03/29/24 04/22/24 lamotrigine 25 mg tablet 25 mg PO .QHS 03/29/24 04/12/24 multivitamin with folic acid 400 1 tab PO DAILY 03/29/24 04/22/24 mcg tablet (Daily-Augustina (with folic acid)) thiamine HCl (vitamin B1) 100 mg 100 mg PO BID 03/29/24 04/22/24 tablet Previous Rx's ?Medication ?Instructions ?Recorded clonidine HCl 0.1 mg tablet 0.1 mg PO Q6H PRN Agitation #30 04/14/24 tabs mirtazapine 15 mg tablet 15 mg PO .QHS #30 tabs 04/14/24 omeprazole 40 mg capsule,delayed 40 mg PO DAILY #30 caps 04/14/24 release promethazine 12.5 mg tablet 12.5 mg PO Q6H PRN nausea and 04/14/24 vomiting #20 tabs ondansetron HCl 4 mg tablet 4 mg PO Q8H PRN nausea and 08/30/24 vomiting 4 days #12 tabs Allergies Allergy/AdvReac Type Severity Reaction Status Date / Time carbamazepine Allergy Severe lowers Verified 08/30/24 16:54 sodium lisinopril Allergy Severe Swelling Verified 04/12/24 08:50 of Lip/Tongue/Throat Opioid HPI Opioid Management Most Recent Opioid Data: Last Pain Scale 2 03/30/24, 15:55 Last ORT Total Score 4 04/22/24, 23:31 Last ORT Risk Category Moderate Risk 04/22/24, 23:31 Ur Phencyclidine Scrn, (NEGATIVE) Negative 04/23/24, 12:00 Review of Systems ROS Constitutional Denies: fever or chills Eyes Reports: change in vision (double vision ( side by side) right eye only- intermittent); Denies: blurry vision, blind spots, light sensitivity, eye discomfort, eye discharge, dry eyes, floaters or seeing flashes Ears, nose, mouth, and throat Denies: throat pain or neck pain Cardiovascular Denies: chest pain, palpitations or edema Respiratory Reports: cough; Denies: shortness of breath Gastrointestinal Reports: nausea and vomiting; Denies: abdominal pain or diarrhea Genitourinary Denies: painful urination Musculoskeletal Denies: back pain, neck pain or extremity pain Integumentary/Breast Denies: rash or itching Neurological Denies: headache Psychiatric Denies: anxiety [facility] Medical History (Updated 08/30/24 @ 17:57 by MAGGY Srinivasan) Hypomagnesemia ?E83.42 - Hypomagnesemia (ICD-10) Alcoholic hepatitis ?K70.10 - Alcoholic hepatitis without ascites (ICD-10) Alcohol withdrawal syndrome ?F10.939 - Alcohol use, unspecified with withdrawal, unspecified (ICD-10) Hypothyroidism ?E03.9 - Hypothyroidism, unspecified (ICD-10) Type 2 diabetes mellitus ?E11.9 - Type 2 diabetes mellitus without complications (ICD-10) Bipolar 1 disorder ?F31.9 - Bipolar disorder, unspecified (ICD-10) HTN (hypertension) ?I10 - Essential (primary) hypertension (ICD-10) Cellulitis ?L03.90 - Cellulitis, unspecified (ICD-10) Phlebitis ?I80.9 - Phlebitis and thrombophlebitis of unspecified site (ICD-10) Alcoholic intoxication ?F10.929 - Alcohol use, unspecified with intoxication, unspecified (ICD-10) Alcohol abuse ?F10.10 - Alcohol abuse, uncomplicated (ICD-10) Abdominal pain ?R10.9 - Unspecified abdominal pain (ICD-10) Family History Sister Family history of hypertension Aunt Alcoholism Uncle Alcoholism Social History Within the past year, how often did you have a drink containing alcohol: 4 or more times a week Within the past year, how many standard drinks containing alcohol did you have on a typical day: 7 to 9 Within the past year, how often did you have six or more drinks on one occasion: daily or almost daily Total score: 10 Score interpretation: A score of 3 or more indicates drinking is likely to affect patient's safety. 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 The patient is not hypoxic. General: The patient appears well but mildly anxious however in no acute distress Patient is resting comfortably on cart. Skin: Warm, dry, no pallor noted.? early jaundice vs lighting. The patient has no evidence of rash, petechiae, or purpura noted. Head: Normocephalic, atraumatic, no temporal arterial tenderness Neck: Supple, trachea mid-line, no tenderness, no lymphadenopathy. No meningeal signs. No nuchal rigidity. Eye: Pupils are equal, round and reactive to light, EOMI, no acute vision complaints. Ears, Nose, Mouth, and Throat: Oral mucosa is moist, TMs are clear bilaterally, no hemotympanum noted. Cardiovascular: Regular Rate and Rhythm Respiratory: Patient is in no distress, no accessory muscle use, lungs are clear to auscultation, no wheezing, rales or rhonchi Back: non-tender, no CVA tenderness Musculoskeletal: normal ROM, no tenderness, no swelling, normal strength 5/5. Normal pulses to radial 2+ bilaterally and 2+ at DP and PT bilaterally and symmetrically. GI: Normal bowel sounds, no tenderness to palpation, no masses appreciated. No rebound, guarding, or rigidity noted. Neurological: A&O x4, normal equal window repairer strength, The patient is not ataxic. The patient has normal speech. The patient has normal coordination. . Normal motor and sensory observed. Psychiatric: Cooperative Constitutional Vital Signs, click to edit/add: Last Vital Signs Temp 98.1 F 08/30/24 16:40 Pulse 102 H 08/30/24 16:40 Resp 18 08/30/24 16:40 BP 160/100 H 08/30/24 16:40 Pulse Ox 100 08/30/24 16:40 O2 Del Method Room Air 08/30/24 16:40 Course Vital Signs Vital signs: Vital Signs Temperature 98.1 F 08/30/24 16:40 Pulse Rate 102 H 08/30/24 16:40 Respiratory Rate 18 08/30/24 16:40 Blood Pressure 160/100 H 08/30/24 16:40 Pulse Oximetry 100 08/30/24 16:40 Oxygen Delivery Method Room Air 08/30/24 16:40 Temperature 98.1 F 08/30/24 16:40 Pulse Rate 102 H 08/30/24 16:40 Respiratory Rate 18 08/30/24 16:40 Blood Pressure 160/100 H 08/30/24 16:40 Pulse Oximetry 100 08/30/24 16:40 Oxygen Delivery Method Room Air 08/30/24 16:40 Medical Decision Making MDM Narrative Medical decision making narrative: Patient presents with nausea vomiting for the past 2 days she has other complaints related to cough and vision changes in the right eye with no pain or loss of vision. Patient states she has not felt well generally for the past 2 weeks but did recently undergo self-reported medication changes. She is taking gabapentin 300 mg 3 times a day with review of her OARRS, Patient declined to have CT of the head or chest x-ray. I met with her at bedside and discussed the reasoning with her concerns of recurrent hyponatremia and previous hospitalization at [facility] without additional testing. We also discussed her double vision in the right eye without prior CT head scan. She states she would like to hold on imaging studies at this time pending evaluation of her electrolytes. Patient evaluated, we discussed her electrolytes her sodium is 133. Magnesium is low but similar to prior episodes. Patient states she is surprised that her sodium level is good. We discussed the need to continue follow-up with her psychiatrist and PCP and publication director. We discussed the relationship between these providers and her medications and symptoms. She is agreeable to a Zofran prescription as she was able to tolerate ice chips here without any further vomiting. She declines the need for a work note at this time and would like to be discharged she refuses the head CT and chest x-ray. We discussed the reason they were ordered were for her complaints of cough and visual disturbance but she acknowledges that her best friend is an eye doctor and does not need to have any further testing at this time and declines. She is requesting to be discharged home with a prescription of Zofran and will use Phenergan if needed. The patient is to followup with primary care physician in next 2-3 days or to return to the emergency department should any of the signs or symptoms worsen or new symptoms develop. Patient had questions answered. The patient agrees with the following Diagnosis and Treatment plan and the patient will be discharged home. Medical Records Medical records reviewed: Yes I reviewed the patient's medical records Medical records narrative: Reviewed discharge summary from 07/26/2024 noting patient has a history of alcohol dependence but recently quit, bipolar disorder hypothyroidism hypertension type 2 diabetes that is diet controlled she had hyponatremia lightheadedness with nausea and vomiting sodium at that time was 121 she had a nephrology consult and psychiatry consult due to multiple psych meds they are holding her Oxy carb basal pain pending outpatient follow-up and started her on Lasix 20 mg p.o. daily and urea until sodium was improved her urea was switched to a sodium 1 g tablet twice daily salt tabs sodium was up to 130 and a fluid restriction was recommended pending follow-up outpatient follow-up with nephrology. Lab Data Labs: Lab Results 08/30/24 08/30/24 Range/Units 17:07 17:12 WBC 9.6 (4.0-11.0) 10^3/uL RBC 4.17 L (4.20-5.40) 10^6/uL Hgb 12.4 (12.0-16.0) g/dL Hct 35.9 L (36.0-48.0) % MCV 86.1 (81.0-99.0) fL MCH 29.7 (26.7-34.0) pg MCHC 34.5 (29.9-35.2) g/dL RDW 12.1 (11.0-15.0) % Plt Count 225 (150-450) 10^3/uL MPV 9.9 (9.5-13.5) fL Neut % (Auto) 63.0 (43.0-75.0) % Lymph % (Auto) 28.9 (20.5-60.0) % [place] % (Auto) 5.6 (1.7-12.0) % Eos % (Auto) 1.3 (0.9-7.0) % Baso % (Auto) 0.8 (0.2-2.0) % Neut # (Auto) 6.1 (1.4-6.5) 10^3/uL Lymph # (Auto) 2.8 (1.2-3.8) 10^3/uL [place] # (Auto) 0.5 (0.3-0.8) 10^3/uL Eos # (Auto) 0.1 (0.0-0.7) 10^3/uL Baso # (Auto) 0.1 (0.0-0.1) 10^3/uL Abs Immat Gran (auto) 0.04 H (0.00-0.03) 10^3/uL Imm/Tot Granulo (auto) 0.4 (0.0-0.5) % Sodium 133 L (136-145) mmol/L Potassium 3.4 L (3.5-5.1) mmol/L Chloride 97 L (98-107) mmol/L Carbon Dioxide 28.1 (21.0-32.0) mmol/L Anion Gap 11.3 BUN 6.0 L (7.0-18.0) mg/dL Creatinine 0.56 (0.55-1.02) mg/dL Est GFR ( Amer) >60 (>=60 mL/min/1.73m^2) Est GFR (Non-Af Amer) >60 (>=60 mL/min/1.73m^2) BUN/Creatinine Ratio 10.7 Glucose 116 H (74-106) mg/dL Lactate 1.3 (0.4-2.0) mmol/L Calcium 9.0 (8.5-10.1) mg/dL Magnesium 1.4 L (1.8-2.4) mg/dL Total Bilirubin 0.2 (0.2-1.0) mg/dL AST 22 (15-37) U/L ALT 34 (14-59) U/L Alkaline Phosphatase 105 (46-116) U/L Total Protein 6.9 (6.4-8.2) g/dL Albumin 3.4 (3.4-5.0) g/dL Globulin 3.5 g/dL Albumin/Globulin Ratio 1.0 Lipase 13.0 L (16.0-77.0) U/L TSH & Free T4 Interp 6.204 H (0.358-3.740) uIU/mL Serum HCG, Qual Negative (NEGATIVE) Urine Color Lt. yellow (YELLOW) Urine Clarity Clear (CLEAR) Urine pH 6.5 (5.0-9.0) Ur Specific [place] <=1.005 A (1.005-1.025) Urine Protein Negative (NEG/TRACE) mg/dL Urine Glucose (UA) Negative (NEGATIVE) mg/dL Urine Ketones Negative (NEGATIVE) mg/dL Urine Occult Blood Trace-i (NEGATIVE) Urine Nitrite Negative (NEGATIVE) Urine Bilirubin Negative (NEGATIVE) Urine Urobilinogen 0.2 (0.2-1.0) EU/dL Ur Leukocyte Esterase Trace A (NEGATIVE) Urine RBC 0-2 (0-2) #/HPF Urine WBC 0-2 A (NONE SEEN) #/HPF Ur Squamous Epith Cells Few A (NONE/RARE) #/LPF Urine Crystals None seen (None Seen) #/HPF Urine Bacteria Trace A (NONE SEEN) #/HPF Urine Casts None seen (NONE SEEN) #/LPF Urine Mucus None seen (NONE SEEN) Ur Culture Indicated? No Ethanol Quant <3 mg/dL ECG Data Attestation: I personally reviewed and interpreted this ECG as follows: Interpretation: EKG interpretation: Emergency Department physician interpretation, normal sinus rhythm 8 1 bpm, , no ectopy, no ST segment elevation, normal axis. Discharge Plan Discharge Chief Complaint: Nausea/Vomiting/Diarrhea Clinical Impression: Nausea & vomiting Patient Disposition: Home, Self-Care Time of Disposition Decision: 17:57 Condition: Good Prescriptions / Home Meds: New ondansetron HCl 4 mg tablet 4 mg PO Q8H PRN (Reason: nausea and vomiting) 4 Days Qty: 12 0RF No Action levothyroxine 50 mcg tablet 50 mcg PO DAILY Patient Comments: LAST FILLED 12/17/23 quetiapine 25 mg tablet 25 mg PO BID promethazine 12.5 mg tablet 12.5 mg PO Q6H PRN (Reason: nausea and vomiting) Qty: 20 0RF Rx Instructions: 3 doses during day; last dose no later than 4 hr before bedtime clonidine HCl 0.1 mg Tablet 0.1 mg PO Q6H PRN (Reason: Agitation) Qty: 30 0RF mirtazapine 15 mg tablet 15 mg PO .QHS Qty: 30 0RF omeprazole 40 mg capsule,delayed release(DR/EC) 40 mg PO DAILY Qty: 30 0RF atorvastatin 20 mg tablet 20 mg PO .QHS thiamine HCl (vitamin B1) 100 mg tablet 100 mg PO BID hydroxyzine pamoate 50 mg capsule 50 mg PO Q6H PRN (Reason: anxiety) lamotrigine 25 mg tablet 25 mg PO .QHS gabapentin 100 mg capsule 200 mg PO TID cholecalciferol (vitamin D3) 125 mcg (5,000 unit) capsule 125 mcg PO DAILY multivitamin with folic acid [Daily-Augustina (with folic acid)] 400 mcg tablet 1 tab PO DAILY Print Language: Slovak Instructions: Acute Nausea and Vomiting (ED) Referrals: Nicole Burns NP [Primary Care Provider] - As soon as possible
[2024-08-30] MEDS: ONDANSETRON PF 4 MG/2 ML VIAL IV (17:16)
[2024-08-30] MEDS: 0.9 % SODIUM CHLORIDE 1,000 ML 500 ML IV (17:16)
[2024-08-30 17:26] LABS: Bilirubin Urine NEGATIVE (NEGATIVE); Blood Urine TRACE-I (NEGATIVE); Clarity Urine CLEAR (CLEAR); Color Urine LT. YELLOW (YELLOW); Glucose Urine UA NEGATIVE (NEGATIVE); Ketones Urine NEGATIVE (NEGATIVE); Leukocyte Esterase Urine TRACE (NEGATIVE); Nitrite Urine NEGATIVE (NEGATIVE); Protein Urine NEGATIVE (NEG/TRACE); Specific Gravity Urine <=1.005 (1.005-1.025); Urobilinogen Urine 0.2 EU/dL (0.2-1.0); pH Urine 6.5 (5.0-9.0)
[2024-08-30 17:26] LABS: Basophils Absolute Auto 0.1 10^3/uL (0.0-0.1); Basophils Percent Auto 0.8 % (0.2-2.0); Eosinophils Absolute Auto 0.1 10^3/uL (0.0-0.7); Eosinophils Percent Auto 1.3 % (0.9-7.0); Hematocrit 35.9 % (36.0-48.0); Hemoglobin 12.4 g/dL (12.0-16.0); Immature Granulocytes Abs Auto 0.04 10^3/uL (0.00-0.03); Immature Granulocytes Pct Auto 0.4 % (0.0-0.5); Lymphocytes Absolute Auto 2.8 10^3/uL (1.2-3.8); Lymphocytes Percent Auto 28.9 % (20.5-60.0); Mean Corpuscular HGB Conc 34.5 g/dL (29.9-35.2); Mean Corpuscular Hemoglobin 29.7 pg (26.7-34.0); Mean Corpuscular Volume 86.1 fL (81.0-99.0); Mean Platelet Volume 9.9 fL (9.5-13.5); Monocytes Absolute Auto 0.5 10^3/uL (0.3-0.8); Monocytes Percent Auto 5.6 % (1.7-12.0); Neutrophils Absolute Auto 6.1 10^3/uL (1.4-6.5); Platelet Count 225 10^3/uL (150-450); Red Blood Count 4.17 10^6/uL (4.20-5.40); Red Cell Distribution Width 12.1 % (11.0-15.0); White Blood Count 9.6 10^3/uL (4.0-11.0)
[2024-08-30 17:40] LABS: HCG Qualitative NEGATIVE (NEGATIVE); Internal Control Within Normal Limits
[2024-08-30 17:43] LABS: Alanine Aminotransferase 34 U/L (14-59); Albumin Level 3.4 g/dL (3.4-5.0); Alkaline Phosphatase 105 U/L (46-116); Anion Gap 11.3; Aspartate Amino Transferase 22 U/L (15-37); BUN Creatinine Ratio 10.7; Bilirubin Total 0.2 mg/dL (0.2-1.0); Carbon Dioxide 28.1 mmol/L (21.0-32.0); Chloride 97 mmol/L (98-107); Estimated GFR (African America >60 (>=60 mL/min/1.73m^2); Estimated GFR (Non-African Ame >60 (>=60 mL/min/1.73m^2); Globulin 3.5 g/dL; Glucose 116 mg/dL (74-106); Potassium 3.4 mmol/L (3.5-5.1); Sodium 133 mmol/L (136-145); Total Protein 6.9 g/dL (6.4-8.2)
[2024-08-30 17:45] LABS: Lactate/Lactic Acid 1.3 mmol/L (0.4-2.0)
[2024-08-30 17:46] LABS: Bacteria Urine TRACE #/HPF (NONE SEEN); Cast Seen? NONE SEEN #/LPF (NONE SEEN); Crystals Seen? None Seen #/HPF (None Seen); Mucus Urine NONE SEEN (NONE SEEN); RBC Urine 0-2 #/HPF (0-2); Squamous Epithelial Cell Urine FEW #/LPF (NONE/RARE); Urine Culture Indicated NO; WBC Urine 0-2 #/HPF (NONE SEEN)
[2024-08-30 17:48] LABS: Ethanol <3 mg/dL; Magnesium 1.4 mg/dL (1.8-2.4)
[2024-08-30 17:50] LABS: TSH W/ REFLEX FT4 6.204 uIU/mL (0.358-3.740)
[2024-08-30 18:16] VITALS: BP 113/67; PULSE 75; O2SAT 99
== END 2024-08-30 18:17 | disposition home or self-care (01) ==
PROVIDERS: Personal Emergency Response Attendant; Emergency Provider Emergency Medicine; PCP Nurse Practitioner Family
DX: R11.2 Nausea with vomiting, unspecified (principal); H53.2 Diplopia; R05.9 Cough, unspecified; F31.9 Bipolar disorder, unspecified
CPT/HCPCS: 36415; 80053; 80320; 81001; 83605; 83690; 83735; 84439; 84443; 84703; 85025; 93005; 96361; 96374; 99285; J2405